=== PATIENT | male | born 1980 | race Caucasian/White ===

== ENCOUNTER 2017-06-14 19:59 | Emergency (ER) | payer MEDICAID, SELFPAY ==
[2017-06-14 19:59] VITALS: BP 151/90; PULSE 99; RESP 16; TEMP 36.1; O2SAT 100; BMI 26.2
--- NOTE | 2017-06-14 22:04 | ED.DCSUM_ITS ---
- ER Visit Summary Date of Service: 06/14/17 Chief Complaint: Back pain History of Present Illness: The patient is a 36 M with a history of low back pain states that he was driving from [place] to [place] to visit his mom, and during a trip while sitting for long period of time, he developed increasing right buttock pain radiating down his right lower extremity to his ankle. He states he is in a lot of discomfort. No numbness, no bowel or bladder dysfunction, no saddle anesthesia. No direct trauma now, but he states he fell 2 weeks ago down a flight of stairs after slipping on a book in the dark. He had some x-rays of his right hip and low back at that time in [place] that were negative. He also has a history of degenerative disc disease and had a laminectomy. Physical Examination: Uncomfortable but in no distress. Straight leg raises are negative bilaterally, he is neurologically and vascularly intact both lower extremities, normal reflexes. No tenderness in his back, but he is tender in the sciatic notch of his right buttock. Test Results: n/a Emergency Department Course and Treatment: Patient is driving to his mother's. He was given IM Toradol injection, and an oxycodone home pack. Advised to follow-up with his doctor when he gets home. No indication for emergent imaging at this time and he is comfortable with this plan. Treatment Plan: As above, supportive care Disposition: Discharge Impression: Acute exacerbation of chronic low back pain Sciatica This note was generated with [employer] dictation software. It may contain incorrect words, spelling, and punctuation that were not noted in review of the chart prior to signing ED Disposition - Plan for ED Patient: Disposition: Home or Assisted Living Chief Complaint: Back Instructions: ED Sciatica Referrals: Doctor,Your [STAFF PHYSICIAN] - 1 Week if not improving
[2017-06-14] MEDS: Ketorolac 60 MG/2 ML Vial IM (22:30)
[2017-06-14] MEDS: oxyCODONE 5 MG Tablet PO (22:31)
== END 2017-06-14 22:44 | disposition home or self-care (01) ==
PROVIDERS: Emergency Provider Emergency Medicine; Family Provider Family Medicine; PCP Family Medicine
DX: M54.41 Lumbago with sciatica, right side (principal); G89.29 Other chronic pain; Z72.0 Tobacco use
CPT/HCPCS: 96372; 99282

== ENCOUNTER 2018-01-17 18:35 | Emergency (ER) | payer MEDICAID, SELFPAY ==
[2018-01-17 18:37] VITALS: BP 154/74; PULSE 123; RESP 20; TEMP 36.6; O2SAT 98; BMI 27.6
--- NOTE | 2018-01-17 20:06 | ED.DCSUM_ITS ---
- ER Visit Summary Date of Service: 01/17/18 Chief Complaint: Back pain History of Present Illness: The patient is a 37 M who states that today around 1645 hrs. she was moving a filing cabinet when he felt pain in his right low back. He notes radiation down the right leg. States he has had numerous exacer bations of this in the past. He is followed by a doctor in another town. He states he is visiting [place]. Fevers. No rashes. No neurologic deficits. Physical Examination: Afebrile vital signs stable Gen: Well-nourished well-developed patient curses frequently during the history portion. Head: Normocephalic atraumatic Eyes: Perrl EOMI ENT: TMs clear no rhinorrhea moist mucous membranes Neck: Supple no lymphadenopathy no JVD nontender CVS: Regular rate rhythm no murmurs normal S1-S2 Respiratory: No distress clear to auscultation bilaterally chest nontender Abdomen: Soft nontender nondistended normal bowel sounds no masses Back: Tender palpation in the right lower lumbar region and right buttock. Extremity: Nontender no edema Skin: Normal color no rash Neuro: alert orientated ?3 CN II-XII intact normal strength sensation reflexes antalgic cerebellar Psych: Normal affect normal mood Emergency Department Course and Treatment: This is most likely an acute on chronic exacerbation. Patient has failed several narcotic prescriptions the past 2 months. I will write for Toradol and Flexeril. He is to follow-up with his doctors. Impression: 1. Acute on chronic lumbosacral strain This note was generated with [employer] dictation software. It may contain incorrect words, spelling, and punctuation that were not noted in review of the chart prior to signing ED Disposition - Plan for ED Patient: Disposition: Home or Assisted Living Chief Complaint: Back Instructions: ED Sprain Strain Lumbar Prescriptions: Cyclobenzaprine [Flexeril] 10 mg PO TID PRN PRN #15 tab PRN Reason: Muscle Spasm Ketorolac [Toradol] 10 mg PO Q6H #12 tab Additional Instructions: Rest heat and anti-inflammatories. Follow-up with your doctors
[2018-01-17] MEDS: Ketorolac 10 MG Tablet PO (20:27)
[2018-01-17 20:34] VITALS: PULSE 89; RESP 20; O2SAT 98
--- NOTE | 2018-01-17 20:35 | ED.RN ---
THIS NURSE REVIEWED D/C INSTRUCTIONS WITH PT. PT VERBALIZED UNDERSTANDING OF INSTRUCTIONS. PT REQUESTING CHLORZOXAZONE. DR GUNN NOTIFIED OF SAME. NO PRESCRIPTION CHANGES. PT DENIES FURTHER NEEDS OR QUESTIONS AT THIS TIME. PT AMBULATES FROM ROOM ON OWN WITHOUT ASSISTANCE FROM STAFF
== END 2018-01-17 20:40 | disposition home or self-care (01) ==
PROVIDERS: Emergency Provider Emergency Medicine; Family Provider Family Medicine; PCP Family Medicine
DX: S39.012A Strain of muscle, fascia and tendon of lower back, initial encounter (principal); X50.9XXA Other and unspecified overexertion or strenuous movements or postures, initial encounter; Y93.9 Activity, unspecified; Y92.9 Unspecified place or not applicable; Y99.9 Unspecified external cause status; R50.9 Fever, unspecified; Z72.0 Tobacco use
CPT/HCPCS: 99283

== ENCOUNTER 2018-03-25 14:11 | Emergency (ER) | payer MEDICAID, SELFPAY ==
[2018-03-25 14:12] VITALS: BP 154/95; PULSE 112; RESP 18; TEMP 36.3; O2SAT 99; BMI 27.8
[2018-03-25 16:08] VITALS: O2SAT 97
--- NOTE | 2018-03-25 16:08 | ED.DCSUM_ITS ---
- ER Visit Summary Date of Service: 03/25/18 Chief Complaint: Fall, low back injury History of Present Illness: The patient is a 37 M who states he slipped and fell on ice yesterday. He landed on his left lower back. No head trauma. He has pain in his left lower back. It is worse with movement. He has a history of chronic back pain. He states he occasionally has back pain which is tolerable with Tylenol. He tried Tylenol for this pain but it did not help. Physical Examination: Vital signs reviewed. Back exam reveals tenderness in the left paraspinal area. There is no midline tenderness. Extremities are normal. Neurologic exam is also normal Test Results: None performed Emergency Department Course and Treatment: Patient likely has a contusion to the left lower back. He has no bony tenderness I do not feel x-rays are needed. He will get 1 dose of Toradol here. Naproxen at home. He was counseled on using ice. He will follow-up with his PCP on the as scheduled Treatment Plan: [] Disposition: Discharge Impression: Left lumbar contusion This note was generated with [employer] dictation software. It may contain incorrect words, spelling, and punctuation that were not noted in review of the chart prior to signing ED Disposition - Plan for ED Patient: Chief Complaint: Fall Referrals: Josafat Davis [Primary Care Provider] -
--- NOTE | 2018-03-25 16:08 | ED.DEP ---
ED Disposition - Plan for ED Patient: Disposition: Home or Assisted Living Chief Complaint: Fall Instructions: ED Mechanical Fall Prescriptions: Naproxen [Naprosyn] 500 mg PO BID PRN #20 tab Referrals: Josafat Davis [Primary Care Provider] -
[2018-03-25 16:11] VITALS: BP 127/89; PULSE 71; PULSE 72; RESP 15; O2SAT 97; O2SAT 98
[2018-03-25] MEDS: Ketorolac 60 MG/2 ML Vial IM (16:16)
== END 2018-03-25 16:49 | disposition home or self-care (01) ==
LOC: ED 16:42
PROVIDERS: Emergency Provider Emergency Medicine; Family Provider Family Medicine; PCP Family Medicine
DX: S30.0XXA Contusion of lower back and pelvis, initial encounter (principal); W00.0XXA Fall on same level due to ice and snow, initial encounter; Y93.9 Activity, unspecified; Y92.9 Unspecified place or not applicable; Y99.9 Unspecified external cause status; M54.9 Dorsalgia, unspecified; G89.29 Other chronic pain; Z72.0 Tobacco use
CPT/HCPCS: 96372; 99282

== ENCOUNTER 2018-05-10 19:35 | Emergency (ER) | payer MEDICAID, SELFPAY ==
[2018-05-10 19:36] VITALS: BP 148/93; PULSE 82; RESP 22; TEMP 37.2; O2SAT 100; BMI 27.8
[2018-05-10] MEDS: predniSONE 20 MG Tablet 60 MG PO (21:11)
[2018-05-10] MEDS: Ketorolac 60 MG/2 ML Vial IM (21:12)
--- NOTE | 2018-05-10 21:56 | ED.DCSUM_ITS ---
- ER Visit Summary Date of Service: 05/10/18 Chief Complaint: Back pain History of Present Illness: The patient is a 37 M who presents with back pain that began today while at work. Patient states the pain is worse with lifting and bending. Patient describes the pain as a pressure over the lumbar area. P atient states the pain radiates down the left leg. Patient denies any paresthesias or weakness. Patient denies any bowel or bladder changes. Patient denies any saddle anesthesia. Patient denies any specific trauma or injury. Physical Examination: Vital signs are stable. Patient is afebrile. Patient is in no acute distress. Musculoskeletal exam reveals tenderness over the lumbar paraspinal muscles tender worse on the left. There is no midline tenderness. There is no bony crepitance or step-off noted. Strength is 5/5 bilaterally in the upper and lower extremities. There are no sensory deficits noted. Deep tendon reflexes are 2+/4 bilaterally in the lower extremities. The remaining physical exam is within normal limits. Emergency Department Course and Treatment: Patient was given Toradol initially. Patient was also given prednisone initially. Patient still complaining of worsening pain. Patient was given an injection of morphine. Patient was instructed to follow-up with his primary care physician in 3-5 days. Patient was instructed on signs and symptoms which should prompt return to the emergency department. Patient understood and was agreeable with the plan. All questions were answered. Disposition: Discharge home Impression: 1. Acute low back pain 2. Sciatica This note was generated with [employer] dictation software. It may contain incorrect words, spelling, and punctuation that were not noted in review of the chart prior to signing ED Disposition - Plan for ED Patient: Disposition: Home or Assisted Living Diagnosis: Acute low back pain, Sciatica of left side Instructions: ED Sciatica Prescriptions: Hydrocodone Bitart/Apap 5-325 [[place] 5MG-325MG] 1 tab PO Q6H PRN PRN 3 Days #10 tab PRN Reason: Pain RX: Prednisone [Deltasone] 60 mg PO DAILY #15 tab Referrals: Josafat Davis [Primary Care Provider] - 3-5 Days
[2018-05-10] MEDS: Morphine 4 MG/ML Syringe SC (22:14)
[2018-05-10 22:21] VITALS: BP 138/80; PULSE 78; RESP 16; O2SAT 97
== END 2018-05-10 22:23 | disposition home or self-care (01) ==
PROVIDERS: Emergency Provider Emergency Medicine; Family Provider Family Medicine; PCP Family Medicine
DX: M54.42 Lumbago with sciatica, left side (principal); Z72.0 Tobacco use
CPT/HCPCS: 96372; 99282

== ENCOUNTER 2018-07-06 17:23 | Emergency (ER) | payer MEDICAID, SELFPAY ==
[2018-07-06 17:23] VITALS: BP 135/97; PULSE 72; RESP 18; TEMP 36.9; O2SAT 98; BMI 28.6
--- NOTE | 2018-07-06 17:41 | RAD_ITS ---
STUDY: X-RAY - CERVICAL SPINE REASON FOR EXAM: Male, 37 years old. Fall. Pain. TECHNIQUE: History view(s) of the cervical spine were obtained. COMPARISON: None FINDINGS: Normal anterior atlantoaxial articulation. Normal odontoid process. Normal cervical lordosis. Mild degenerative disc disease and spondylosis at C5-C6 and C6-C7. The soft tissue structures are unremarkable. There is no demonstrated fracture of the cervical spine. RAD/Cerv Spine 2 or 3 Views IMPRESSION: Mild degenerative changes. No acute abnormality. Electronically Signed: Josafat Schulz MD at 18:28 EDT , Service support ,
--- NOTE | 2018-07-06 17:46 | ED.VIS.FALL ---
History of Present Illness Chief Complaint: Fall Informant: Patient Occurred: Today Mechanism/Context: Same level fall Quality of Pain: Aching Current Severity: Mild Maximum Severity: Mild Worsened by: Movement Associated Symptoms: Negative for: Parasthesias, Weakness, Loss of function, Inability to ambulate, Loss of consciousness Narrative: Patient presenting for evaluation secondary to fall. Patient reports that he suffered a mechanical fall getting out of the bathtub today. He reports that he struck the front of his head and twisted his back. Denies loss of consciousness visual changes numbness or weakness. He reports some pain in his forehead, neck, and right lower back. Patient was able to ambulate. Is not on any sort of anticoagulants. He does have a history of prior back surgery in the distant past. Review of systems otherwise negative. Past Medical History - Allergies and Home Meds Allergies/Adverse Reactions: Allergies No Known Allergies Allergy (Verified 07/06/18 17:25) Primary Care Physician: Josafat Davis [Primary Care Provider] - Smoking Status: Current every day smoker Review of Systems All systems negative except as indicated Musculoskeletal: Reports: Neck pain, Back pain Physical Exam Vital Signs/Narrative: Vital Signs Temp Pulse Resp BP Pulse Ox 07/06/18 17:23 98.4 F 72 18 135/97 H 98 Inital Vital Signs reviewed: Yes General: Well nourished, Well developed, - - Airway patent, breath sounds equal bilateral, central peripheral pulses 2+ and symmetric, GCS 15 out of 15 Head: Normocephalic, Atraumatic Eyes: Perrl, EOMI ENT: TM's clear, No hemotympanum or drainage, No trauma Neck: Full ROM, Spinal Tenderness Cardiovascular: Regular rate, Regular rhythm, No murmurs Respiratory: No distress, CTA bilaterally, Chest nontender Abdomen: Soft, Nontender, Nondistended, Normal bowel sounds Back: Paraspinal Tenderness Skin: Normal color, No rash Neurological: Alert, Oriented x3, Cranial nerves II-XII grossly intact, Normal Strength, Normal Sensation Psychological: Normal affect Diagnostic/Tx/Re-eval Cervical spine x-rays demonstrate degenerative changes but no acute process - Medical Decision Making Patient presented for evaluation secondary to a mechanical fall. Primary and secondary surveys showed only evidence of the patient having some midline cervical spine tenderness. A C-spine x-ray was obtained and was found to be negative by my personal review as well as radiology. Patient is [place] head CT rule negative, there is no indication for neuroimaging. At this point I believe the patient is appropriate for discharge. He was recommended expectant management measures, and follow-up with primary care as needed. Disposition: Home ED Disposition - Plan for ED Patient: Disposition: Home or Assisted Living Diagnosis: Cervical strain Instructions: ED Mechanical Fall Referrals: Josafat Davis [Primary Care Provider] - As Needed
== END 2018-07-06 18:58 | disposition home or self-care (01) ==
PROVIDERS: Emergency Provider Emergency Medicine; Family Provider Family Medicine; PCP Family Medicine
DX: S16.1XXA Strain of muscle, fascia and tendon at neck level, initial encounter (principal); S09.90XA Unspecified injury of head, initial encounter; M54.9 Dorsalgia, unspecified; W18.2XXA Fall in (into) shower or empty bathtub, initial encounter; Y93.E1 Activity, personal bathing and showering; Y92.9 Unspecified place or not applicable; Y99.9 Unspecified external cause status; F17.200 Nicotine dependence, unspecified, uncomplicated
CPT/HCPCS: 72040; 99282

== ENCOUNTER 2018-09-26 14:04 | Emergency (ER) | payer MEDICAID, SELFPAY ==
[2018-09-26 14:06] VITALS: BP 154/93; PULSE 101; RESP 20; TEMP 36.5; O2SAT 98; BMI 27.6
--- NOTE | 2018-09-26 14:36 | ED.VIS.GEN ---
History of Present Illness Chief Complaint: Back Informant: Patient Timing: Continuous Current Severity: Moderate Maximum Severity: Moderate Narrative: Patient apparently was sitting on a couch too long and developed back spasms. This happened yesterday. He was able to walk home he is worse today. He has history of chronic recurrent back pain. He has no urinary symptoms, no retention symptoms, no compromise. No perirectal decreased sensation. He is able to ambulate. No other trauma. Past Medical History - Allergies and Home Meds Allergies/Adverse Reactions: Allergies No Known Allergies Allergy (Verified 09/26/18 14:06) Primary Care Physician: Josafat Davis [Primary Care Provider] - Prior records reviewed: Yes Past Medical History: - - Prior back pain Lives: Alone Smoking Status: Current every day smoker Review of Systems General: Denies: Fever Respiratory: Denies: Dyspnea Gastrointestinal: Denies: Abdominal pain, Nausea, Vomiting Genitourinary: Denies: Dysuria, Frequency Musculoskeletal: Reports: Back pain Skin: Denies: Wounds Neurological: Denies: Weakness, Parasthesia Hematologic: Denies: Easy bruising Physical Exam Vital Signs/Narrative: Vital Signs Temp Pulse Resp BP Pulse Ox 09/26/18 14:06 97.7 F L 101 H 20 H 154/93 H 98 General: Well nourished, Well developed ENT: Moist mucous membranes Cardiovascular: Regular rate, Regular rhythm Abdomen: Soft, Nontender Back: - - There is spinal and paraspinal back pain he has loss of lordosis. He has 2+ bilateral patellar reflexes normal plantar flexion dorsiflexion of both feet and great toes, he has normal Achilles reflexes. Extremities: Nontender, No edema Skin: Normal color Neurological: Normal Strength, Normal Sensation, Normal DTR Diagnostic/Tx/Re-eval - Medical Decision Making Patient has a normal exam, he has back pain and spasms we will treat with analgesia. Disposition discharge stable condition ED Disposition - Plan for ED Patient: Disposition: Home or Assisted Living Diagnosis: Acute low back pain Instructions: BACK SPASM, No Trauma, Back Sprain/Strain Prescriptions: cycloBENZAPRine HCl [Flexeril] 10 mg PO TID PRN #20 tab PRN Reason: Muscle Spasm Prescription Printed Naproxen [Naprosyn] 500 mg PO BID PRN #20 tab Prescription Printed Referrals: Josafat Davis [Primary Care Provider] - 3-5 Days
[2018-09-26] MEDS: HYDROmorphone 1 MG/ML Syringe IM (14:47)
[2018-09-26] MEDS: Ketorolac 30 MG/ML Syringe IM (14:47)
[2018-09-26] MEDS: Orphenadrine 60 MG/2 ML Ampul IM (14:47)
[2018-09-26 15:14] VITALS: BP 150/73; PULSE 90; RESP 17; O2SAT 99
== END 2018-09-26 15:16 | disposition home or self-care (01) ==
PROVIDERS: Emergency Provider Emergency Medicine; Family Provider Family Medicine; PCP Family Medicine
DX: M54.5 Low back pain (principal); M62.830 Muscle spasm of back; G89.29 Other chronic pain; F17.200 Nicotine dependence, unspecified, uncomplicated; Z79.899 Other long term (current) drug therapy
CPT/HCPCS: 96372; 99282

== ENCOUNTER 2019-02-23 20:37 | Emergency (ER) | payer MEDICAID, SELFPAY ==
[2019-02-23 20:38] VITALS: BP 154/108; PULSE 90; RESP 16; TEMP 36.3; O2SAT 98; BMI 28.6
[2019-02-23 22:48] VITALS: BP 135/105; PULSE 85; RESP 15; O2SAT 95
--- NOTE | 2019-02-23 22:49 | ED.VIS.GEN ---
History of Present Illness Chief Complaint: Back Narrative: Patient is a 38-year-old male who presents with left lower back pain. This began last night after sexual intercourse and was worse this morning. He was able to work 11 hours today. His pain is worse with movement ambulation and bending. It is sharp. He does have a history of prior laminectomy and has had some radicular symptoms since then with multiple ER visits for back pain. This however he states is different. Normally he gets radicular symptoms with radiation into the left buttocks but his pain is focal to the left lower back currently. No abdominal pain. No fevers. No urinary retention or fecal incontinence. No numbness tingling or weakness. Past Medical History - Allergies and Home Meds Allergies/Adverse Reactions: Allergies No Known Allergies Allergy (Verified 02/23/19 20:41) Primary Care Physician: Josafat Davis [Primary Care Provider] - Past Medical History: - - Chronic back pain Smoking Status: Current every day smoker Review of Systems All systems negative except as indicated General: Denies: Fever Eyes: Denies: Visual changes - bilaterally ENT: Denies: Sore throat Cardiovascular: Denies: Chest pain Respiratory: Denies: Dyspnea Gastrointestinal: Denies: Nausea, Vomiting, Diarrhea Musculoskeletal: Reports: Back pain Skin: Denies: Rash Neurological: Denies: Headache Allergy: Denies: Uticaria Physical Exam Vital Signs/Narrative: Vital Signs Temp Pulse Resp BP Pulse Ox 02/23/19 20:38 97.4 F L 90 16 154/108 H 98 Inital Vital Signs reviewed: Yes General: Well nourished, Well developed Head: Normocephalic Eyes: EOMI ENT: Moist mucous membranes Neck: Supple Cardiovascular: Regular rate Respiratory: No distress Abdomen: Soft, Nontender Back: - - Patient has left paraspinal lumbar tenderness and point tenderness of the left SI joint Skin: Normal color Neurological: Alert, Normal Strength, Normal Sensation Psychological: Normal affect Diagnostic/Tx/Re-eval - Medical Decision Making Patient's presentation is consistent with a lumbosacral strain. I do not see an indication for imaging at this time. He was given injections of Toradol and Norflex and advised to continue supportive care. Patient agreeable to this plan and was discharged home. ED Disposition - Plan for ED Patient: Disposition: Home or Assisted Living Diagnosis: Lumbosacral strain Instructions: Back Sprain/Strain Referrals: Josafat Davis [Primary Care Provider] -
[2019-02-23] MEDS: Ketorolac 60 MG/2 ML Vial IM (23:05)
[2019-02-23] MEDS: Orphenadrine 60 MG/2 ML Ampul IM (23:08)
--- NOTE | 2019-02-23 23:45 | ED.RN ---
pt requesting a rx from chlorzoxazone. denied by MD. pt became upset and stormed out of the ER walking briskly.
== END 2019-02-23 23:46 | disposition home or self-care (01) ==
PROVIDERS: Emergency Provider Emergency Medicine; Family Provider Family Medicine; PCP Family Medicine
DX: S39.012A Strain of muscle, fascia and tendon of lower back, initial encounter (principal); X58.XXXA Exposure to other specified factors, initial encounter; Y93.89 Activity, other specified; G89.29 Other chronic pain; F17.200 Nicotine dependence, unspecified, uncomplicated
CPT/HCPCS: 96372; 99282

== ENCOUNTER 2019-06-08 10:43 | Emergency (ER) | payer MEDICAID, SELFPAY ==
[2019-06-08 10:45] VITALS: BP 142/93; PULSE 79; RESP 14; TEMP 35.9; O2SAT 99; BMI 29.5
--- NOTE | 2019-06-08 11:27 | ED.DCSUM_ITS ---
- ER Visit Summary Date of Service: 06/08/19 Chief Complaint: Temperature of 99 yesterday. Patient wants a note to say and go back to work. Physicial examination: Male no acute distress vital signs stable afebrile. Pulse ox 99% on room air no signs hypoxia. H EENT exam normal. Neck nontender no lymphadenopathy lungs clear to auscultation bilaterally. Heart regular rhythm no murmur. Abdomen soft nontender normal bowel sounds no peritoneal signs. Patient moving all 4 extremities. No edema. Back nontender. Skin no rashes. Neurologically is awake alert no focal motor deficits. Test Results: none Emergency Department Course and Treatment: Patient clinically is fine. He appears to have a viral syndrome. I do not think he has pneumonia. Analgesics and testing. Treatment Plan: Tylenol and/or Motrin as needed. Fluids and rest. May return to work. Disposition: Discharge Impression: Acute viral URI This note was generated with [employer] dictation software. It may contain incorrect words, spelling, and punctuation that were not noted in review of the chart prior to signing ED Disposition - Plan for ED Patient: Referrals: Josafat Davis [Primary Care Provider] -
--- NOTE | 2019-06-08 11:30 | ED.DEP ---
ED Disposition - Plan for ED Patient: Disposition: Home or Assisted Living Instructions: ED URI Viral Referrals: Josafat Davis [Primary Care Provider] - As Needed Additional Instructions: Plenty of fluids and rest. Tylenol and Motrin as needed. Follow up with your doctor if not improving. You are cleared clinically and may return to work today and work normally.
== END 2019-06-08 11:40 | disposition home or self-care (01) ==
PROVIDERS: Emergency Provider Emergency Medicine; PCP Family Medicine
DX: Z02.79 Encounter for issue of other medical certificate (principal); J06.9 Acute upper respiratory infection, unspecified; Z72.0 Tobacco use
CPT/HCPCS: 99282

== ENCOUNTER 2019-06-12 16:24 | Emergency (ER) | payer MEDICAID, SELFPAY ==
[2019-06-12 16:27] VITALS: BP 167/116; PULSE 86; RESP 17; TEMP 37.1; O2SAT 99; BMI 29.2
--- NOTE | 2019-06-12 17:02 | ED.DCSUM_ITS ---
History of Present Illness Chief Complaint: Upper Extremity Injury Informant: Patient Occurred: Today Mechanism/Context: - - doing pushups. Negative for: Work Related Onset: Hours - 2 Context: Sudden Onset Timing: Continuous Quality of Pain: Sharp, Aching Location: left periscapular area Current Severity: Severe Maximum Severity: Severe Worsened by: abducting LUE, extending upper arm while abducted Relieved by: remaining still Associated Symptoms: Negative for: Parasthesia, Weakness, Loss of Funtion Narrative: Patient states he worked okay last night but started having this sharp pain patel ddenly while doing push-ups, working out today. 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 [id number]. Denies any numbness in his hand or elsewhere. States it also hurts worse to extend at the neck. - Past Medical History (1) Bipolar disorder Status: Chronic (2) Cervical radiculopathy Status: Suspected (3) Sciatica Status: Suspected Past Medical History - Allergies and Home Meds Allergies/Adverse Reactions: Allergies No Known Allergies Allergy (Verified 06/12/19 16:25) Primary Care Physician: Josafat Davis [Primary Care Provider] - 10-14 Days if not better Lives: Alone Smoking Status: Current every day smoker Review of Systems General: Denies: Chills, Fever, Sweats Musculoskeletal: Reports: Neck pain, Back pain, Extremity Pain Skin: Denies: Rash, Wounds Neurological: Denies: Headache, Weakness, Numbness Physical Exam Vital Signs/Narrative: Vital Signs Temp Pulse Resp BP Pulse Ox 06/12/19 16:27 98.8 F 86 17 167/116 H 99 General: Well nourished, Well developed, - - NAD Head: Normocephalic, Atraumatic Neck: Full ROM, Paraspinal Tenderness - left lower Extremeties: Patient is tender in the cervical portion of the trapezius muscle, in addition to the left rhomboid musculature, and the supraspinous area of the scapula/trapezius. There is no subacromial tenderness. He has full range of motion at the shoulder, there is some pain with abduction. There is no acromioclavicular tenderness. There is no deformity. Skin: Normal color, No rash, No Trauma Neurological: Alert, Oriented x3, Cranial nerves II-XII grossly intact, Normal Strength, Normal Sensation, Normal Gait Psychological: Tearful - and anxious Diagnostic/Tx/Re-eval - Medical Decision Making On my interpretation, 4 view x-rays of the left shoulder are unremarkable and show no bony fracture/abnormality or dislocation. Patient was treated with Toradol and Norflex and will be prescribed oral equivalents, and advised to follow-up for what is very likely to be an upper back/trapezius strain. All this was explained to him, as was treatment which is basically supportive care at this time. ED Disposition - Plan for ED Patient: Disposition: Home or Assisted Living Diagnosis: Strain of left trapezius muscle Instructions: ED Sprain Strain Neck Prescriptions: Naproxen [Naprosyn] 500 mg PO BID PRN #20 tab Transmission Status: Received by [facility] Orphenadrine [Norflex ER] 100 mg PO BID PRN #14 tab PRN Reason: Muscle Spasm Transmission Status: Received by [facility] Referrals: Josafat Davis [Primary Care Provider] - 10-14 Days if not better
--- NOTE | 2019-06-12 17:20 | RAD_ITS ---
STUDY: X-RAY - LEFT SHOULDER REASON FOR EXAM: Male, 38 years old. pt c/o left shoulder pain that started this morning while working out. TECHNIQUE: 4 view(s) of the shoulder. COMPARISON: None. FINDINGS: Normal glenohumeral articulation. Normal acromioclavicular joint. Normal acromion. Normal humeral head and visualized proximal humerus. The soft tissue structures are unremarkable. There is no demonstrated fracture. Normal visualized pulmonary apex. RAD/Shoulder min 2 Views IMPRESSION: Normal x-ray examination of the shoulder. Electronically Signed: Gerson Tate MD at 17:46 EDT , Service support ,
[2019-06-12] MEDS: Ketorolac 60 MG/2 ML Vial IM (17:31)
[2019-06-12] MEDS: Orphenadrine 60 MG/2 ML Ampul IM (17:31)
[2019-06-12 17:59] VITALS: BP 156/89; PULSE 88; RESP 17; O2SAT 97
== END 2019-06-12 18:00 | disposition home or self-care (01) ==
LOC: ED 17:07
PROVIDERS: Emergency Provider Emergency Medicine; PCP Family Medicine
DX: S46.812A Strain of other muscles, fascia and tendons at shoulder and upper arm level, left arm, initial encounter (principal); X58.XXXA Exposure to other specified factors, initial encounter; Y93.B2 Activity, push-ups, pull-ups, sit-ups; Y92.9 Unspecified place or not applicable; Y99.8 Other external cause status; F17.200 Nicotine dependence, unspecified, uncomplicated
CPT/HCPCS: 73030; 96372; 99282

== ENCOUNTER 2019-06-19 17:20 | Emergency (ER) | payer MEDICAID, SELFPAY ==
[2019-06-19 17:20] VITALS: BP 148/81; PULSE 116; RESP 20; TEMP 37.8; O2SAT 97; BMI 29.7
--- NOTE | 2019-06-19 17:44 | ED.DCSUM_ITS ---
History of Present Illness Chief Complaint: Fever Informant: Patient Onset: Days - 2-3 Context: Gradual Onset Timing: Continuous Quality: achy Location: all over Current Severity: Mild Maximum Severity: Moderate Worsened by: - - nothing Relieved by: Tylenol, NSAIDs Associated Symptoms: Headache, Myalgias, Nonproductive cough. Negative for: Sinus Pressure, Nausea, Vomiting, Diarrhea, Shortness of Breath, Chest Pain Narrative: Patient with cold symptoms and fevers subjective, he denies any dyspnea although it is on his triage note. No chest pain. No sore throat or nasal congestion, he has a mild right earache. Someone at work had influenza recently but he did not necessarily have direct contact with him. No known exposure to persons with coronavirus. He presents during coronavirus national emergency. - Past Medical History (1) Bipolar disorder Status: Chronic (2) Sciatica Status: Suspected Past Medical History - Allergies and Home Meds Allergies/Adverse Reactions: Allergies No Known Allergies Allergy (Verified 06/19/19 17:20) Primary Care Physician: Josafat Davis [Primary Care Provider] - Smoking Status: Current every day smoker Review of Systems General: Reports: Chills, Fever, Malaise, Subjective. Denies: Sweats Eyes: Denies: Visual changes - bilaterally, Diplopia ENT: Reports: Right ear pain. Denies: Rhinorrhea, Sore throat Cardiovascular: Denies: Chest pain, Palpitations Respiratory: Reports: Cough. Denies: Dyspnea, Sputum, Dyspnea on exertion Gastrointestinal: Denies: Abdominal pain, Nausea, Vomiting, Diarrhea, Melena, Hematochezia Genitourinary: Denies: Dysuria, Hematuria, Frequency Musculoskeletal: Reports: Myalgias. Denies: Back pain, Extremity Pain Skin: Denies: Rash, Wounds Neurological: Reports: Headache. Denies: Weakness, Numbness Physical Exam Vital Signs/Narrative: Vital Signs Temp Pulse Resp BP Pulse Ox 06/19/19 17:20 100.0 F H 116 H 20 H 148/81 H 97 Inital Vital Signs reviewed: Yes General: Well nourished, Well developed Head: Normocephalic, Atraumatic Eyes: Perrl, EOMI Ears: Normal external canal, TM's clear - With very mild erythema along the line of the middle ear bone pushing on a tympanic membrane. No effusion.. Negative for: Pain with Movement of Right Tragus, Pain with Movement of Left Tragus Nose: Normal Inspection, No Rhinorrhea. Negative for: Purulent Drainage Mouth/Throat: Normal Inspection, No Posterior Erythema, Airway Patent Neck: Supple, Nontender, No Lymphadenopathy, No Meningismus Cardiovascular: Regular rate, Regular rhythm, No murmurs, Tachycardia - Mild Respiratory: No distress, CTA bilaterally, Chest nontender Abdomen: Soft, Nontender, Nondistended, Normal bowel sounds Back: Nontender, Normal Inspection. Negative for: CVA tenderness Extremities: Nontender, No edema. Negative for: Calf Tenderness Skin: Normal color, No rash, No Trauma Neurological: Alert, Oriented x3, Cranial nerves II-XII grossly intact, Normal Strength, Normal Sensation, Normal Gait Psychological: Normal affect, Normal Mood Diagnostic/Tx/Re-eval - Medical Decision Making Patient was tested for influenza and RSV, both negative. He has had no specific contact with any persons known to be infected with coronavirus, but since there is community spread, certainly we are not able to rule that out and he does not meet testing criteria to be tested at [facility] currently. Supportive care and quarantine advised and given appropriate discharge instructions. Patient felt better after a dose of Toradol IM. ED Disposition - Plan for ED Patient: Disposition: Home or Assisted Living Diagnosis: Febrile illness, acute, Suspected 2019-nCoV infection Instructions: ED Upper Resp Infec No Abx Tx Referrals: Josafat Davis [Primary Care Provider] - As Needed Additional Instructions: -See additional attached quarantine instructions for what to do with regards to the possibility of coronavirus infection, given that you do not currently meet the [facility] requirements for testing since they require us to conserve the limited testing ability for the sickest, hospitalized patients.
[2019-06-19] MEDS: Ketorolac 60 MG/2 ML Vial IM (17:58)
[2019-06-19 19:27] VITALS: PULSE 91; RESP 18
== END 2019-06-19 19:28 | disposition home or self-care (01) ==
PROVIDERS: Emergency Provider Emergency Medicine; PCP Family Medicine
DX: R50.9 Fever, unspecified (principal); F17.200 Nicotine dependence, unspecified, uncomplicated
CPT/HCPCS: 87804; 87807; 96372; 99281

== ENCOUNTER 2019-07-04 08:26 | Emergency (ER) | payer MEDICAID, SELFPAY ==
[2019-07-04 08:26] VITALS: BP 140/85; PULSE 105; RESP 18; TEMP 36.6; O2SAT 96; BMI 27.8
--- NOTE | 2019-07-04 08:42 | ED.DEP ---
ED Disposition - Plan for ED Patient: Instructions: ED Sprain Wrist Prescriptions: Naproxen [Naprosyn] 500 mg PO BID PRN #20 tablet Referrals: Josafat Davis [Primary Care Provider] -
--- NOTE | 2019-07-04 08:45 | ED.DCSUM_ITS ---
- ER Visit Summary Date of Service: 07/04/19 Chief Complaint: Left wrist pain History of Present Illness: The patient is a 38 M presenting with left wrist pain. Patient states that this has been ongoing for the past couple of weeks. 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 He believes the vibrations of the saw may have exacerbated his symptoms. Denies direct trauma. He states the pain comes on when he bends his left wrist back. He is right- handed. He has no current pain. He has tried Tylenol at home. He states that he was sick with fever from June 15 to June 18. He has been fever free since that time and now feels well. He is requesting a note to go back to work. Physical Examination: Vitals are stable. Patient is afebrile. Alert no acute distress. HEENT exam is unremarkable. Neck is supple. Lungs are clear and equal bilaterally. Heart is regular rate and rhythm. Extremities left wrist is nontender to palpation. Active full range of motion. No erythema or warmth. Normal pulses. Skin is warm and dry. No focal neurologic deficit. Remainder of exam is unremarkable. Emergency Department Course and Treatment: Patient is given a Velcro wrist splint and prescription for Naprosyn. Advised follow-up with his primary care physician. Advised to return to the ED for worsening complaints. Disposition: Discharge home Impression: Left wrist sprain This note was generated with [employer] dictation software. It may contain incorrect words, spelling, and punctuation that were not noted in review of the chart prior to signing ED Disposition - Plan for ED Patient: Instructions: ED Sprain Wrist Prescriptions: Naproxen [Naprosyn] 500 mg PO BID PRN #20 tab Prescription Printed Referrals: Josafat Davis [Primary Care Provider] -
== END 2019-07-04 08:57 | disposition home or self-care (01) ==
LOC: ED 08:48
PROVIDERS: Emergency Provider Emergency Medicine; PCP Family Medicine
DX: S63.502A Unspecified sprain of left wrist, initial encounter (principal); X58.XXXA Exposure to other specified factors, initial encounter; Y93.89 Activity, other specified; Y92.9 Unspecified place or not applicable; Z72.0 Tobacco use
CPT/HCPCS: 99283

== ENCOUNTER 2020-01-24 10:23 | Emergency (ER) | payer MEDICAID, SELFPAY ==
[2020-01-24 10:24] VITALS: BP 136/82; PULSE 85; RESP 20; TEMP 36.4; O2SAT 99; BMI 28.4
[2020-01-24 10:29] VITALS: O2SAT 98
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
[2020-01-24 10:34] VITALS: O2SAT 100
[2020-01-24 10:38] LABS: Absolute Lymphocyte Count 5.08 X10^3/uL (0.83-4.51); Absolute Neutrophil Count 5.3 X10^3/uL (2.0-7.7); Basophil# 0.05 X10^3/uL; Basophil% 0.4 % (0-1); Eosinophil# 0.48 X10^3/uL; Hematocrit 46.1 % (40-54); Hemoglobin 14.9 g/dL (13.0-16.5); Lymphocyte # 5.08 X10^3/ul (4.0); Lymphocyte % 42.8 % (19-41); Mean Corp Hgb Conc 32.3 g/dL (32-36); Mean Corpuscular Hgb 32.5 pg (27.0-32.0); Mean Corpuscular Volume 100.7 fL (80-94); Mean Platelet Vol. 11.5 fl (6.2-12.0); Monocyte# 0.91 X10^3/uL; Monocyte% 7.7 % (0-10); NRBC Flagged by Analyzer 0 % (0-5); Neutrophil # 5.25 X10^3/uL (2.7-7.7); Neutrophil % 44.3 % (47-70); POSITIVE DIFFERENTIAL YES; Platelet Count 239 K/mm3 (150-450); RBC Distribution Width CV 11.4 % (11.6-14.6); RBC Distribution Width SD 42.5 fl (35.1-43.9); Red Blood Count 4.58 M/mm3 (4.6-6.2); White Blood Count 11.9 K/mm3 (4.4-11.0)
[2020-01-24] MEDS: Morphine 4 MG/ML Syringe IV ×2 (10:39→12:16)
[2020-01-24] MEDS: Ondansetron 4 MG/2 ML Vial IV (10:40)
[2020-01-24] MEDS: 0.9% Normal Saline 1,000 ML 150 ML IV (10:41)
[2020-01-24 10:50] LABS: International Normalized Ratio 0.9; Partial Thromboplast Time 21.8 Seconds (24.1-36.2); Prothrombin Time (Protime)PT. 11.9 SECONDS (11.7-14.9)
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
[2020-01-24 10:56] LABS: Differential Indicated SCAN CRITERIA MET
[2020-01-24 10:58] LABS: AST(SGOT) 99 U/L (15-37); Alanine Aminotransfer ALT/SGPT 80 U/L (16-61); Albumin, Serum 3.6 g/dL (3.2-5.0); Alkaline Phosphatase 74 U/L (45-117); Anion Gap 9 (5-15); BUN 13 mg/dL (7-18); BUN/Creat Ratio 8.8 RATIO (10-20); Calcium,Total 8.1 mg/dL (8.5-10.1); Chloride 108 mmol/L (98-107); Creatinine, Serum 1.48 mg/dL (0.70-1.30); EST Glomerular Filtration Rate 56 mL/min (>60); Est Glom Filt Rate - Afr Amer 68 mL/min (>60); Estimated Creatinine Clearance 76.48 ml/min; Globulin 3.5 g/dL (2.2-4.2); Glucose 112 mg/dL (74-106); Lipase 553 U/L (73-393); Potassium 3.6 mmol/L (3.5-5.1); Protein, Total 7.1 g/dL (6.4-8.2); Sodium Level 143 mmol/L (136-145)
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
[2020-01-24 11:39] VITALS: BP 127/89; PULSE 56; RESP 17; O2SAT 99
[2020-01-24 11:53] LABS: Carboxyhemoglobin Frac (CO) 5.8 % (0.0-1.5)
[2020-01-24 12:07] VITALS: BP 140/92; PULSE 77; RESP 24; O2SAT 100
[2020-01-24 12:07] LABS: Lactic Acid 1.4 mmol/L (0.4-1.9)
--- NOTE | 2020-01-24 12:15 | CM.ED ---
SOCIAL WORK Freight Dispatcher from [employer] here to meet with patient. This worker to remain available for needs/support. Natalya Mcrae, LIQUOR DEPARTMENT MANAGER, ACID PAINTER
[2020-01-24] MEDS: LORazepam 2 MG/ML Syringe 0.5 MG IV (12:16)
[2020-01-24 12:59] LABS: Bacteria 0 SEEN /hpf (None Seen); Mucous, Urine 0 SEEN /hpf (<or=2+); Squamous Epithelial Cells - UA 0 SEEN /hpf (0-5); White Blood Cells 0 SEEN /hpf (0-5)
[2020-01-24 13:21] LABS: Color, Urine Yellow (Yellow); Glucose, Dipstick Normal (Normal); Ketone-Dipstick Negative (Negative); Leukocyte Esterase-Dipstick Negative /ul (Negative); Nitrite-Dipstick Negative (Negative); Occult Blood-Urine 25 /ul (Negative); Protein-Dipstick 30 mg/dl (Negative); Urine Bilirubin Dipstick Negative (Negative); Urine Clarity Sl. Cloudy (Clear); Urine Urobilinogen Normal (Normal); Urine pH 6.5 (5.0 - 8.0)
[2020-01-24 13:30] LABS: Red Blood Cells-Urine 0-5 SEEN /hpf (0-5)
[2020-01-24 13:50] VITALS: BP 121/89; PULSE 60; RESP 17; O2SAT 99
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
--- NOTE | 2020-01-24 14:40 | CM.ED ---
SOCIAL WORK Patient requesting this worker assist with finding hotel. Patient requesting this worker try [facility] [facility] [facility]. Call to the [employer]. Per Jenny with [employer], patient is on DO NOT rent list. Jenny recommending [facility] or [facility]. Updated patient on the above. Patient in agreement for this worker to try [facility]. Call to the [facility]. deskidding machine operator reports does have rooms available and will be able to accommodate patient. Patient updated. Natalya Mcrae MSW, BIOCHEMIST
--- NOTE | 2020-01-24 15:12 | CM.ED ---
SOCIAL WORK Received call back from [facility] with [facility]. Per [employer], patient's debt card is activated. Updated patient. Asked patient if he would like for us to call taxi. Patient declined. Patient states will walk to [facility]. Patient has been discharged and left the department at this time. Natalya Mcrae MSW, SAMPLE HAND
== END 2020-01-24 15:33 | disposition home or self-care (01) ==
PROVIDERS: Emergency Provider Emergency Medicine; PCP Family Medicine
DX: S16.1XXA Strain of muscle, fascia and tendon at neck level, initial encounter (principal); S20.212A Contusion of left front wall of thorax, initial encounter; T14.8XXA Other injury of unspecified body region, initial encounter; W13.4XXA Fall from, out of or through window, initial encounter; Y93.39 Activity, other involving climbing, rappelling and jumping off; Y92.003 Bedroom of unspecified non-institutional (private) residence as the place of occurrence of the external cause; Y99.8 Other external cause status; F17.200 Nicotine dependence, unspecified, uncomplicated
CPT/HCPCS: 70450; 71260; 72125; 73590; 73630; 74177; 80053; 81001; 82375; 83605; 83690; 84484; 85025; 85610; 85730; 96361; 96374; 96375; 96376; 99285; J7030; Q9967; A4216; J2405

== ENCOUNTER 2020-08-04 18:40 | Emergency (ER) | payer MEDICAID, SELFPAY ==
[2020-08-04 18:41] VITALS: BP 133/94; PULSE 100; PULSE 92; RESP 28; TEMP 36.5; O2SAT 100; O2SAT 98; BMI 28.8
--- NOTE | 2020-08-04 19:04 | EDS_ITS ---
HPI History of Present Illness Chief Complaint: Back Detail of Chief Complaint: Patient with back pain for the last 2 days. Informant: patient Onset/Context/Timing Maximum Severity: Severe Narrative Narrative: Patient presents to the emergency department complaining of back pain her last 2 days. Patient states that he had to move all his belongings from one house to another and exacerbated his back pain. Patient states that he had back surgery about 6 years ago and had a laminectomy of his lumbar region. Patient also was told that he might need a fusion in the future. Patient has been taking Celebrex and muscle relaxer and not get much pain relief. He describes pain radiating into the right buttock and sometimes down the leg. He denies weakness in the extremity. He denies any change in bowel or bladder function. Patient denies any falls or direct trauma. Prior similar symptoms: Yes PFSH PFSH Home Medications celecoxib mg PO 08/04/20 [History Last Taken Unknown] chlorzoxazone PO PRN 08/04/20 [History Last Taken Unknown] hydrocodone-acetaminophen 1 tab PO Q4H PRN PRN 2 Days #10 tablet 08/04/20 [Rx Last Taken Unknown] Allergy/AdvReac Type Severity Reaction Status Date / Time No Known Allergies Allergy Verified 07/04/19 08:29 Surgical History (Updated 08/04/20 @ 18:51 by Yadira Jc) Hx of tonsillectomy Previous back surgery Social History Smoking Status: Current every day smoker ROS ROS ED Constitutional Constitutional ED: Reports systems reviewed and no addt'l complaints, except as documented; Denies body ache(s), change in weight or chills Eyes Eyes: Denies acute decrease in peripheral vision, change in vision, double vision or loss of vision ENT ENT ED: Reports none; Denies ear pain, lip swelling, loss taste/smell, neck pain, otalgia or sore throat Cardiovascular Cardiovascular: Reports none; Denies abdominal pain, chest pain with activity, leg edema, lightheadedness, palpitations, rapid heart rate or syncope Respiratory/Chest Respiratory/Chest: Reports none; Denies change in mental status, dry cough, dyspnea, hemoptysis, shortness of breath at rest or shortness of breath with exertion Gastrointestinal Gastrointestinal: Reports none; Denies abdominal pain, change in stool character, diarrhea, hematemesis, hematochezia, melena, rectal bleeding or vomiting Genitourinary Genitourinary ED: Reports none; Denies abdominal discomfort, anuria, dysuria, genital pain or polyuria Musculoskeletal Musculoskeletal: Reports none and back pain; Denies arthralgias, difficulty walking, extremity pain, muscle weakness or myalgias Integumentary Reports none; Denies abscess or rash Neurologic Neurologic: Reports none; Denies abnormal gait, confusion, focal weakness, frequent falls, headache(s), loss of vision, numbness, paresthesias, radicular pain, vertigo or weakness Psychiatric Psychiatric: Reports systems reviewed and no addt'l complaints, except as documented and none; Denies behavioral changes, confusion, difficulty concentrating, hallucinations, suicidal ideation, tactile hallucinations or visual hallucinations Endocrine Endocrinology: Denies none, cold intolerance, excessive sweating, fatigue or heat intolerance Hematologic/Lymphatic Hematologic/Lymphatic: Reports none; Denies anemia, easy bleeding or easy bruising Allergic/Immunologic Allergic/Immunologic ED: Denies as per HPI, none, lip swelling, mouth swelling, throat swelling, tongue swelling or hives EXAM Physical Exam Const Vital Signs: 08/04/20 18:41 Temperature 97.7 F L Temperature Source Temporal Pulse Rate 92 Respiratory Rate 28 H Blood Pressure 133/94 H Blood Pressure Mean 107 Pulse Ox 100 Oxygen Delivery Method Room Air Positive well nourished and well developed General Appearance ED: well developed and NAD HEENT Reports TM's clear and moist mucous membranes normocephalic and atraumatic; Negative for trauma or tenderness Tympanic Membrane ED: Yes TM's clear Eyes PERRL and EOMs intact bilaterally General Eye ED: Negative for pale conjunctiva or scleral icterus Neck no lymphadenopathy, supple and no JVD General: Negative for tenderness Chest Wall inspection of chest normal and palpation of chest normal Chest: Negative for tenderness Resp normal respiratory effort and clear to auscultation bilaterally Effort and Inspection: Negative for respiratory distress or pain with movement Auscultation: Negative for rhonchi, wheezes or diminished lung sounds Cardio regular rate, regular rhythm, S1 normal heart sound, S2 normal heart sound and no murmurs Peripheral Pulses: pulses 2+ throughout GI normal to inspection, nondistended, normoactive bowel sounds, soft to palpation, non-tender, non-distended and no masses Back/Spine no CVA tenderness and no thoracic nor lumbar tenderness Back/Spine Narrative: Patient has normal deep tendon reflexes of plus 2 out of 4 bilaterally at the patella and Achilles. Patient has normal L5 extension bilaterally. Patient has normal sensation to light touch bilaterally. Patient has some mild tenderness over the right lumbar paraspinal musculature. General Back: Negative for CVA tenderness Extremity normal to inspection General Extremety ED: Negative for edema General Extremity: Negative for edema Neuro oriented x3, CN's II-XII intact bilaterally, no sensory deficits noted and gait normal Sensorium / Orientation: awake, alert, oriented to person, oriented to place and oriented to time Motor Exam: strength 5/5 throughout and strength abnormal Psych mental status grossly normal Skin no rashes or lesions noted and no wounds MDM MDM MDM Narrative Medical decision making narrative: There is no indication for any imaging at this point. Patient drove himself here. I will given a prescription for 10 [place] and advised to follow-up with his primary care physician or surgeon within the next 3 to 5 days. Patient to return if worsening pain, weakness in extremities, change in bowel or bladder function, or condition should worsen anyway. Discharge Plan Triage Chief Complaint: Back ED Provider: Cassi Washburn Dx/Rx/DC Orders Clinical Impression: Acute low back pain Instructions: ED Back Pain (Acute or Chronic) Prescriptions: New hydrocodone-acetaminophen [hydrocodone-acetaminophen] 1 TABLET tablet 1 tab PO Q4H PRN PRN (Reason: Pain) 2 Days Qty: 10 RF: 0 No Action chlorzoxazone 500 mg tablet PO PRN (Reason: Pain) RF: 0 celecoxib 100 mg capsule PO RF: 0 Primary Care Provider: Josafat Davis Referrals: Josafat Davis DO [Primary Care Provider] - 3-5 Days Disposition Disposition: Home, self care
[2020-08-04 19:19] VITALS: PULSE 82; RESP 15; O2SAT 98
== END 2020-08-04 19:20 | disposition home or self-care (01) ==
LOC: ED 19:13
PROVIDERS: Emergency Provider Emergency Medicine; PCP Family Medicine
DX: M54.5 Low back pain (principal); F17.200 Nicotine dependence, unspecified, uncomplicated
CPT/HCPCS: 99282

== ENCOUNTER 2020-10-30 20:53 | Emergency (ER) | payer MEDICAID, SELFPAY ==
[2020-10-30 20:53] VITALS: BP 153/85; PULSE 97; RESP 20; TEMP 36.2; O2SAT 98; BMI 28.6
[2020-10-30 23:11] VITALS: BP 139/95; PULSE 101; RESP 17; TEMP 36.4; O2SAT 100
--- NOTE | 2020-10-30 23:13 | EDS_ITS ---
HPI History of Present Illness Chief Complaint: Back Narrative Narrative: Patient presents with right-sided back pain/gluteal pain which radiates down the lateral aspect of his right leg. He states this is an acute on chronic issue. He has been to see an orthopedic surgeon and was told that if he cannot take the pain that he would need to have a spinal fusion. Patient states he is trying to avoid this. He is already had a laminectomy. He usually deals with the pain. He was able to finish his job today but after working he felt he needed more for pain control. Patient denies loss of bladder bowel control. No urinary retention. He denies any direct trauma. Patient states t hat his primary care doctor put him on chlorzoxazone and celecoxib without relief. PFSH PFSH Home Medications celecoxib mg PO 08/04/20 [History Last Taken Unknown] chlorzoxazone PO PRN 08/04/20 [History Last Taken Unknown] hydrocodone-acetaminophen 1 tab PO Q4H PRN PRN 2 Days #10 tablet 08/04/20 [Rx Last Taken Unknown] prednisone 50 mg PO DAILY 4 Days #20 tab 10/31/20 [Rx Last Taken Unknown] Allergy/AdvReac Type Severity Reaction Status Date / Time No Known Allergies Allergy Verified 07/04/19 08:29 Surgical History Hx of tonsillectomy Previous back surgery Social History Smoking Status: Current every day smoker tobacco type: cigarettes ROS ROS ED Constitutional Constitutional ED: Denies chills, fever(s) or sweats Eyes Eyes: Denies blurry vision or diplopia ENT ENT ED: Denies rhinorrhea or sore throat Cardiovascular Cardiovascular: Denies chest pain or palpitations Respiratory/Chest Respiratory/Chest: Denies dyspnea, dyspnea on exertion or sputum Gastrointestinal Gastrointestinal: Denies abdominal pain, nausea or vomiting Genitourinary Genitourinary ED: Denies dysuria or hematuria Musculoskeletal Musculoskeletal: Reports back pain Neurologic Neurologic: Reports paresthesias RLE (Lateral aspect of right thigh and lower extremity); Denies headache(s) or weakness Psychiatric Psychiatric: Denies anxiety or depression EXAM Physical Exam Const Vital Signs: 10/30/20 20:53 10/30/20 23:11 Temperature 97.1 F L 97.5 F L Temperature Source Temporal Temporal Pulse Rate 97 101 H Respiratory Rate 20 H 17 Blood Pressure 153/85 H 139/95 H Blood Pressure Mean 107 109 Pulse Ox 98 100 Oxygen Delivery Method Room Air Room Air Positive well nourished General Appearance ED: NAD HEENT Reports moist mucous membranes trauma Eyes PERRL and EOMs intact bilaterally Resp normal respiratory effort and clear to auscultation bilaterally Cardio regular rate and regular rhythm Back/Spine Lumbar Spine / Lower Back: ROM limited, paraspinal muscle tenderness right and straight leg raise positive right at 30 degrees Neuro oriented x3 Sensorium / Orientation: alert Psych mental status grossly normal Skin no rashes or lesions noted and no wounds MDM MDM MDM Narrative Medical decision making narrative: Patient presented with lumbar radiculopathy symptoms. He states this is acute on chronic. He states he may have exacerbated this will work on a car today. He was trying to avoid spinal fusion. Patient states he is on chlorzoxazone celecoxib however he is only partially manage the pain. He states he has been lost to follow-up physical therapy. He has not followed up with his spinal surgeon because he does not want to have surgery. He has no symptoms consistent with cauda equina syndrome or infectious etiology. I do not believe the patient needs any imaging at this time. He was given 4 of morphine IM, Toradol 50 mg IM, prednisone 60 mg. He is now feeling comfortable and ambulate around the hallways. I feel he is safe for discharge home at this time. I will give him a small burst of prednisone and he already has chlorzoxazone at home. Impression: 1. Lumbar strain 2. Lumbar radiculopathy Discharge Plan Triage Chief Complaint: Back ED Provider: Emmett Cabrera Dx/Rx/DC Orders Instructions: Understanding Lumbar Radiculopathy, ED Back Sprain/Strain Prescriptions: New prednisone 10 mg tablet 50 mg PO DAILY 4 Days Qty: 20 RF: 0 No Action chlorzoxazone 500 mg tablet PO PRN (Reason: Pain) RF: 0 celecoxib 100 mg capsule PO RF: 0 hydrocodone-acetaminophen [hydrocodone-acetaminophen] 1 TABLET tablet 1 tab PO Q4H PRN PRN (Reason: Pain) 2 Days Qty: 10 RF: 0 Primary Care Provider: Josafat Davis Referrals: Josafat Davis DO [Primary Care Provider] - Disposition Disposition: Home, Self Care
[2020-10-30] MEDS: predniSONE 20 MG Tablet 60 MG PO (23:19)
[2020-10-30] MEDS: Morphine 4 MG/ML Syringe IM (23:20)
[2020-10-30] MEDS: Ketorolac 15 MG/ML Vial IM (23:21)
[2020-10-31 01:52] VITALS: BP 164/78; PULSE 92; RESP 18; O2SAT 99
== END 2020-10-31 01:53 | disposition home or self-care (01) ==
PROVIDERS: Emergency Provider Student in an Organized Health Care Education/Training Program; PCP Family Medicine
DX: S39.012A Strain of muscle, fascia and tendon of lower back, initial encounter (principal); X58.XXXA Exposure to other specified factors, initial encounter; Y93.9 Activity, unspecified; Y92.9 Unspecified place or not applicable; Y99.9 Unspecified external cause status; M54.16 Radiculopathy, lumbar region; F17.210 Nicotine dependence, cigarettes, uncomplicated; Z79.52 Long term (current) use of systemic steroids
CPT/HCPCS: 96372; 99284

== ENCOUNTER 2020-12-03 18:29 | Emergency (ER) | payer MEDICAID, SELFPAY ==
[2020-12-03 18:30] VITALS: BP 155/99; PULSE 113; RESP 20; TEMP 36.6; O2SAT 100; BMI 28.3
[2020-12-03 20:13] VITALS: BP 140/97; PULSE 92; RESP 15; O2SAT 100
--- NOTE | 2020-12-03 20:41 | EDS_ITS ---
HPI History of Present Illness Chief Complaint: Back Narrative Narrative: 40-year-old male with history of sciatica as well as lumbar back pain presenting with similar symptoms. He states he has been moving his stuff from his old house to his mother's house and made several trips. He states that during this time he started to have pain in the right lumbar paraspinal musculature. He states it also radiates down his leg. He has had this in the past. He denies any loss of bladder or bowel control. He denies any direct trauma. Patient is ambulatory. Patient states that he also has left ear pain. He states he noted this when he was cleaning his ear with a Q-tip. He thought it was caused by smoking in the rain. Patient has not had a fever or chills. PFSH PFSH Home Medications NK 12/03/20 [History Last Taken Unknown] cyclobenzaprine 10 mg PO TID PRN #20 tablet 12/03/20 [Rx Last Taken Unknown] naproxen [Naprosyn] 500 mg PO BID #30 tab 12/03/20 [Rx Last Taken Unknown] Allergy/AdvReac Type Severity Reaction Status Date / Time No Known Allergies Allergy Verified 12/03/20 18:30 Surgical History Hx of tonsillectomy Previous back surgery Social History Smoking Status: Current every day smoker tobacco type: cigarettes ROS ROS ED Constitutional Constitutional ED: Denies chills, fever(s) or sweats Eyes Eyes: Denies blurry vision or change in vision ENT ENT ED: Reports ear pain; Denies rhinorrhea or sore throat Cardiovascular Cardiovascular: Denies chest pain, palpitations or racing heartbeat Respiratory/Chest Respiratory/Chest: Denies cough, dyspnea or sputum Gastrointestinal Gastrointestinal: Denies abdominal pain, constipation, diarrhea or vomiting Genitourinary Genitourinary ED: Denies dysuria, hematuria or urinary frequency Musculoskeletal Musculoskeletal: Reports back pain; Denies neck pain Integumentary Denies abscess, Abrasions or rash Neurologic Neurologic: Denies headache(s), paresthesias or weakness Psychiatric Psychiatric: Denies anxiety, depression, suicidal ideation or suicidal thoughts Endocrine Endocrinology: Denies polydipsia or polyuria EXAM Physical Exam Const Vital Signs: 12/03/20 18:30 12/03/20 20:13 12/03/20 21:26 Temperature 98 F Temperature Source Temporal Pulse Rate 113 H 92 65 Respiratory Rate 20 H 15 16 Blood Pressure 155/99 H 140/97 H 132/86 H Blood Pressure Mean 117 111 Pulse Ox 100 100 100 Oxygen Delivery Method Room Air Room Air Positive well nourished General Appearance ED: NAD; Negative for pallor HEENT Reports normocephalic, head/scalp atraumatic and moist mucous membranes External Auditory Canal: EAC's abnormal right (Erythematous. Pain with movement of the tragus.) Eyes PERRL Neck no lymphadenopathy and supple Chest Wall inspection of chest normal and palpation of chest normal Resp normal respiratory effort and clear to auscultation bilaterally Auscultation: Negative for rales, rhonchi or wheezes Cardio regular rate and regular rhythm GI normal to inspection, nondistended, normoactive bowel sounds and non-distended Auscultation: normoactive bowel sounds Palpation: soft Narrative: Deferred Back/Spine no CVA tenderness Back/Spine Narrative: Right lumbar paraspinal muscular tenderness. No midline spinal tenderness, deformity, step-off. General Back: Negative for CVA tenderness Extremity normal to inspection General Extremety ED: Yes edema and tenderness General Extremity: edema Neuro oriented x3 and CN's II-XII intact bilaterally Sensorium / Orientation: alert Motor Exam: strength 5/5 throughout Psych mental status grossly normal Attitude: No agitated Skin no rashes or lesions noted and no wounds General Skin Exam: Negative for jaundice or pallor MDM MDM MDM Narrative Medical decision making narrative: Patient presenting with back pain and ear pain. His left ear does appear to have otitis externa. He will be given Cortisporin for this. Patient also has lumbar paraspinal muscular tenderness. He is given a shot of Norflex and Toradol with some improvement. He was sent ho ma on Naprosyn and cyclobenzaprine. Counseled to alternate ice and heat. Patient stable discharge at this time. Impression: 1. Lumbar strain Discharge Plan Triage Chief Complaint: Back ED Provider: Emmett Caberra Dx/Rx/DC Orders Instructions: ED Back Spasm, No Trauma, ED External Ear Infection (Adult) Prescriptions: New cyclobenzaprine 10 mg tablet 10 mg PO TID PRN (Reason: Muscle Spasm) Qty: 20 RF: 0 naproxen [Naprosyn] 500 mg tablet 500 mg PO BID Qty: 30 RF: 0 No Action NK RF: 0 Primary Care Provider: Josafat Davis Referrals: Josafat Davis DO [Primary Care Provider] - Disposition Disposition: Home, Self Care Discharge Date/Time: 12/03/20 21:27
[2020-12-03] MEDS: Neomycin/Polymyxin/Dexameth 5ML OPTH.BTL 4 DRP OTIC (20:59)
[2020-12-03] MEDS: Ketorolac 15 MG/ML Vial IM (21:00)
[2020-12-03] MEDS: Orphenadrine 60 MG/2 ML Ampul IM (21:00)
[2020-12-03 21:26] VITALS: BP 132/86; PULSE 65; RESP 16; O2SAT 100
== END 2020-12-03 21:27 | disposition home or self-care (01) ==
PROVIDERS: Emergency Provider Student in an Organized Health Care Education/Training Program; PCP Family Medicine
DX: S39.012A Strain of muscle, fascia and tendon of lower back, initial encounter (principal); X50.3XXA Overexertion from repetitive movements, initial encounter; X50.0XXA Overexertion from strenuous movement or load, initial encounter; Y93.89 Activity, other specified; Y92.009 Unspecified place in unspecified non-institutional (private) residence as the place of occurrence of the external cause; Y99.8 Other external cause status; H60.92 Unspecified otitis externa, left ear; F17.210 Nicotine dependence, cigarettes, uncomplicated
CPT/HCPCS: 96372; 99283

== ENCOUNTER 2020-12-19 11:15 | Emergency (ER) | payer MEDICAID, SELFPAY ==
[2020-12-19 11:16] VITALS: BP 114/90; PULSE 105; RESP 16; TEMP 36.1; BMI 28.3
--- NOTE | 2020-12-19 12:24 | EDS_ITS ---
HPI History of Present Illness Chief Complaint: Back Informant: patient Narrative Narrative: 40-year-old male presents the emergency room with right-sided back pain with radiation into the inguinal region. He states that he has had a prior laminectomy and he has an appointment with his surgeon on the of this month. He has not contacted his primary care doctor to see if they can help with pain control. He notes that he has been just dealing with the pain and occasionally coming to emergency. He states he is very frustrated with his chronic pain. He denies any bowel or bladder dysfunction. He denies any radiation to the leg at this time. He notes the pain is in the low back and the buttock region PFSH PFSH Home Medications cyclobenzaprine 10 mg PO TID PRN #20 tablet 12/03/20 [Rx Last Taken Unknown] naproxen [Naprosyn] 500 mg PO BID #30 tab 12/03/20 [Rx Last Taken Unknown] diazepam 5 mg PO Q8 PRN #12 tab 12/19/20 [Rx Last Taken Unknown] hydrocodone-acetaminophen 1 tab PO Q6H PRN PRN 3 Days #12 tablet 12/19/20 [Rx Last Taken Unknown] prednisone See Rx Instructions .ROUTE .COMPLEX #24 tablet 12/19/20 [Rx Last Taken Unknown] Allergy/AdvReac Type Severity Reaction Status Date / Time No Known Allergies Allergy Verified 12/19/20 11:18 Surgical History Hx of tonsillectomy Previous back surgery Social History (Updated 12/19/20 @ 12:[address] Mynor Colon DO) Smoking Status: Current every day smoker tobacco type: cigarettes substance use type: marijuana ROS ROS ED Constitutional Constitutional ED: Denies chills or weight loss Eyes Eyes: Denies change in vision or diplopia ENT ENT ED: Denies ear pain, rhinorrhea or sore throat Cardiovascular Cardiovascular: Denies chest pain, orthopnea, palpitations or racing heartbeat Respiratory/Chest Respiratory/Chest: Denies cough, dyspnea or orthopnea Gastrointestinal Gastrointestinal: Denies abdominal pain, diarrhea, nausea or vomiting Genitourinary Genitourinary ED: Denies dysuria, hematuria or urinary frequency Musculoskeletal Musculoskeletal: Reports back pain; Denies arthralgias or myalgias Integumentary Denies abscess or rash Neurologic Neurologic: Denies headache(s) or weakness Psychiatric Psychiatric: Denies anxiety, depression, suicidal ideation or suicidal thoughts Endocrine Endocrinology: Denies polydipsia, polyphagia or polyuria Allergic/Immunologic Allergic/Immunologic ED: Denies mouth swelling, tongue swelling or urticaria EXAM Physical Exam Const Vital Signs: 12/19/20 11:16 Temperature 97.0 F L Temperature Source Temporal Pulse Rate 105 H Respiratory Rate 16 Blood Pressure 114/90 H Blood Pressure Mean 98 Positive well nourished and well developed General Appearance ED: well developed HEENT Reports normocephalic, head/scalp atraumatic and moist mucous membranes Eyes PERRL and EOMs intact bilaterally Neck no lymphadenopathy, supple and no JVD Resp normal respiratory effort and clear to auscultation bilaterally Cardio regular rate, regular rhythm and no murmurs GI normal to inspection, nondistended, normoactive bowel sounds and non-tender Palpation: soft Back/Spine no CVA tenderness and normal ROM Extremity normal to inspection General Extremety ED: Negative for edema General Extremity: Negative for edema Neuro oriented x3 and CN's II-XII intact bilaterally Sensorium / Orientation: alert Motor Exam: strength 5/5 throughout Psych Attitude: agitated Mood & Affect: tearful; Negative for depressed Skin no rashes or lesions noted and no wounds MDM MDM MDM Narrative Medical decision making narrative: Patient's had success with steroids in the past. I can write for those as well as some Valium for muscle relaxation and a few [place]. I suggest that the patient contact his primary care doctor for continued pain control and possibly referral to pain management Discharge Plan Triage Chief Complaint: Back ED Provider: Mynor Colon Dx/Rx/DC Orders Clinical Impression: Acute low back pain Instructions: ED Sciatica Prescriptions: New hydrocodone-acetaminophen [hydrocodone-acetaminophen] 1 TABLET tablet 1 tab PO Q6H PRN PRN (Reason: Pain) 3 Days Qty: 12 RF: 0 diazepam [diazepam] 5 MG tablet 5 mg PO Q8 PRN (Reason: Muscle Spasm) Qty: 12 RF: 0 prednisone 20 MG tablet See Rx Instructions .ROUTE .COMPLEX Qty: 24 RF: 0 No Action cyclobenzaprine 10 mg tablet 10 mg PO TID PRN (Reason: Muscle Spasm) Qty: 20 RF: 0 naproxen [Naprosyn] 500 mg tablet 500 mg PO BID Qty: 30 RF: 0 Primary Care Provider: Josafat Davis Referrals: Josafat Davis, [Primary Care Provider] - As soon as possible Activity Restrictions/Additional Instructions: It would most likely benefit you to talk to your family doctor about seeing pain management Disposition Disposition: Home, Self Care
== END 2020-12-19 12:49 | disposition home or self-care (01) ==
LOC: ED 12:42
PROVIDERS: Emergency Provider Emergency Medicine; PCP Family Medicine
DX: M54.50 Low back pain, unspecified (principal); G89.29 Other chronic pain; F17.210 Nicotine dependence, cigarettes, uncomplicated
CPT/HCPCS: 99282

== ENCOUNTER 2021-01-06 19:52 | Emergency (ER) | payer MEDICAID, SELFPAY ==
[2021-01-06 19:53] VITALS: BP 160/115; PULSE 126; RESP 24; TEMP 36.7; O2SAT 99; BMI 27.7
[2021-01-06] MEDS: Ketorolac 15 MG/ML Vial IV (20:40)
--- NOTE | 2021-01-06 20:56 | ED.VIS.BACK ---
HPI History of Present Illness Chief Complaint: Back Informant: patient Onset/Context/Timing Onset: Hours Context: Sudden Onset Injury: lifting, twisting, bending and repetitive motion Timing: Continuous and Waxes and wanes Quality: Dull, Aching and Throbbing Location: Lumbar Current Severity: Severe Maximum Severity: Severe Worsened by: improves with Movement, Ambulation, Bending and Lifting Relieved by: Nothing Associated Symptoms Associated Symptoms: Negative for Numbness, Tingling, Radiation to Right Leg, Radiation to Left Leg, Fever, Abdominal Pain, Dysuria, Unable to Ambulate, Unable to Transfer, Urinary Retention, Urinary Incontinence, Constipation and Fecal Incontinence Narrative Narrative: Patient is a 40-year-old male with history of herniated disc L5 2013 and surgery 2015. He states he was at work lifting objects. He presents because of severe low back pain. He denies radicular pain. He denies bowel bladder dysfunction. No saddle paresthesia or anesthesia. He denies foot drop. [place] buckling of his knees. He denies direct trauma. He denies any other symptoms. Prior similar symptoms: Yes and With Prior Back Pain Recent Illness/Hospitalization: No PFSH PFSH Home Medications cyclobenzaprine 10 mg PO TID PRN #20 tablet 12/03/20 [Rx Last Taken Unknown] naproxen [Naprosyn] 500 mg PO BID #30 tab 12/03/20 [Rx Last Taken Unknown] diazepam 5 mg PO Q8 PRN #12 tab 12/19/20 [Rx Last Taken Unknown] hydrocodone-acetaminophen 1 tab PO Q6H PRN PRN 3 Days #12 tablet 12/19/20 [Rx Last Taken Unknown] prednisone See Rx Instructions .ROUTE .COMPLEX #24 tablet 12/19/20 [Rx Last Taken Unknown] hydrocodone-acetaminophen 1 tab PO Q6H PRN PRN 3 Days #10 tablet 01/06/21 [Rx Last Taken Unknown] naproxen 500 mg PO BID #14 tab 01/06/21 [Rx Last Taken Unknown] Allergy/AdvReac Type Severity Reaction Status Date / Time No Known Allergies Allergy Verified 01/06/21 19:53 Surgical History Hx of tonsillectomy Previous back surgery Social History (Updated 01/06/21 @ 20:[address] Neeraj Antonio MD) household members: none Smoking Status: Current every day smoker tobacco type: cigarettes alcohol intake: current alcohol intake frequency: other substance use type: marijuana ROS ROS ED Constitutional Constitutional ED: Denies chills, fever(s), subjective or sweats Eyes Eyes: Denies blurry vision, change in vision or diplopia ENT ENT ED: Denies ear pain, rhinorrhea or sore throat Cardiovascular Cardiovascular: Denies chest pain, palpitations or racing heartbeat Respiratory/Chest Respiratory/Chest: Denies dyspnea, dyspnea on exertion or sputum Gastrointestinal Gastrointestinal: Denies abdominal pain, diarrhea, nausea or vomiting Genitourinary Genitourinary ED: Denies dysuria, hematuria or urinary frequency Musculoskeletal Musculoskeletal: Reports back pain; Denies arthralgias, myalgias or neck pain Integumentary Denies abscess, Abrasions or rash Neurologic Neurologic: Denies headache(s), paresthesias or weakness Hematologic/Lymphatic Hematologic/Lymphatic: Denies easy bleeding or easy bruising EXAM Physical Exam Const Vital Signs: 01/06/21 19:53 Temperature 98.1 F Temperature Source Temporal Pulse Rate 126 H Respiratory Rate 24 H Blood Pressure 160/115 H Blood Pressure Mean 130 Pulse Ox 99 Oxygen Delivery Method Room Air Positive well nourished and well developed General Appearance ED: well developed; Negative for NAD or pallor HEENT HEENT Narrative: Head is atraumatic normocephalic. Ears normal. Nares patent. Posterior pharynx out erythema or exudate. Eyes PERRL and EOMs intact bilaterally General Eye ED: Negative for pale conjunctiva or scleral icterus Neck no lymphadenopathy, supple and no JVD General: Negative for tenderness Resp normal respiratory effort and clear to auscultation bilaterally Cardio regular rate, regular rhythm, S1 normal heart sound, S2 normal heart sound and no murmurs GI normal to inspection, nondistended, normoactive bowel sounds, soft to palpation and non-tender GI Narrative: No palpable full or pulsatile mass. No abdominal bruit. Back/Spine normal to inspection; Negative for no thoracic nor lumbar tenderness Back/Spine Narrative: Patella and ankle reflexes are 2+ and symmetric. EHLs intact. Normal sensation over L4-5 dermatome. Normal perianal sensation. 5/5 strength hip flexors General Back: scar(s); Negative for CVA tenderness Cervical Spine: Negative for cervical spine tenderness and Negative for paracervical muscle tenderness Thoracic Spine / Upper Back: Negative for paraspinal muscle tenderness Lumbar Spine / Lower Back: ROM limited and straight leg raise negative bilaterally Extremity normal to inspection; Negative for no clubbing, cyanosis or edema General Extremety ED: Negative for edema or tenderness General Extremity: Negative for edema Neuro oriented x3 and no sensory deficits noted Sensorium / Orientation: alert Deep Tendon Reflexes: Rt Patellar (L4): 2+, Lt Patellar (L4): 2+, Rt Ankle (S1): 2+ and Lt Ankle (S1): 2+ Deep Tendon Reflexes Back: Rt Patellar (L4): 2+, Lt Patellar (L4): 2+, Rt Ankle (S1): 2+ and Lt Ankle (S1): 2+ Plantar Reflex: Downgoing: bilateral Psych mental status grossly normal Skin no rashes or lesions noted and no wounds General Skin Exam: Negative for jaundice or pallor MDM MDM MDM Narrative Medical decision making narrative: Patient's history and physical is consistent with. Lumbar muscle strain. He has no findings to suggest herniated disc. He has no objective neurologic deficit. Since he drove himself to the emergency department he initially was treated with Toradol. He contacted his nephew who lives 2 blocks from here to drive him home. He was ordered Valium and morphine IV. He will be discharged home. Discharge Plan Triage Chief Complaint: Back ED Provider: Neeraj Antonio Dx/Rx/DC Orders Clinical Impression: Strain of muscle, fascia and tendon of lower back, initial encounter Instructions: ED Back Sprain/Strain Prescriptions: New hydrocodone-acetaminophen [hydrocodone-acetaminophen] 1 TABLET tablet 1 tab PO Q6H PRN PRN (Reason: Pain) 3 Days Qty: 10 RF: 0 naproxen 500 MG tablet 500 mg PO BID Qty: 14 RF: 0 No Action cyclobenzaprine 10 mg tablet 10 mg PO TID PRN (Reason: Muscle Spasm) Qty: 20 RF: 0 naproxen [Naprosyn] 500 mg tablet 500 mg PO BID Qty: 30 RF: 0 hydrocodone-acetaminophen [hydrocodone-acetaminophen] 1 TABLET tablet 1 tab PO Q6H PRN PRN (Reason: Pain) 3 Days Qty: 12 RF: 0 diazepam [diazepam] 5 MG tablet 5 mg PO Q8 PRN (Reason: Muscle Spasm) Qty: 12 RF: 0 prednisone 20 MG tablet See Rx Instructions .ROUTE .COMPLEX Qty: 24 RF: 0 Primary Care Provider: Josafat Davis Referrals: Josafat Davis DO [Primary Care Provider] - Disposition Disposition: Home, Self Care
--- NOTE | 2021-01-06 21:20 | ED.RN ---
PT HAS NO RIDE HOME AND DOES NOT WANT TO WAIT 4-6 HOURS, SO MORPHINE AND VALIUM REFUSED BY PT.
== END 2021-01-06 21:34 | disposition home or self-care (01) ==
PROVIDERS: Emergency Provider Emergency Medicine; PCP Family Medicine
DX: S39.012A Strain of muscle, fascia and tendon of lower back, initial encounter (principal); X50.3XXA Overexertion from repetitive movements, initial encounter; Y93.89 Activity, other specified; Y92.9 Unspecified place or not applicable; Y99.0 Civilian activity done for income or pay; F17.210 Nicotine dependence, cigarettes, uncomplicated
CPT/HCPCS: 96374; 99284; A4216

== ENCOUNTER 2021-02-15 10:22 | Emergency (ER) | payer MEDICAID, SELFPAY ==
[2021-02-15 10:23] VITALS: BP 147/96; PULSE 116; RESP 18; TEMP 37; O2SAT 98; BMI 28.2
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
[2021-02-15] MEDS: Morphine 4 MG/ML Syringe IM (11:09)
[2021-02-15] MEDS: Ketorolac 60 MG/2 ML Vial IM (11:09)
[2021-02-15] MEDS: Orphenadrine 60 MG/2 ML Ampul IM (11:12)
[2021-02-15 11:51] VITALS: BP 132/81; PULSE 82
== END 2021-02-15 11:52 | disposition home or self-care (01) ==
PROVIDERS: Emergency Provider Emergency Medicine; PCP Family Medicine
DX: M54.50 Low back pain, unspecified (principal); G89.29 Other chronic pain; F17.210 Nicotine dependence, cigarettes, uncomplicated
CPT/HCPCS: 96372; 99282

== ENCOUNTER 2021-03-18 19:09 | Emergency (ER) | payer MEDICAID, SELFPAY ==
[2021-03-18 19:10] VITALS: BP 149/104; PULSE 115; RESP 20; TEMP 36.8; O2SAT 99; BMI 27.7
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
[2021-03-18] MEDS: diazePAM 5 MG Tablet PO (21:23)
== END 2021-03-18 21:33 | disposition home or self-care (01) ==
LOC: ED 21:28
PROVIDERS: Emergency Provider Emergency Medicine; PCP Family Medicine; Visit Provider Emergency Medicine
DX: M54.2 Cervicalgia (principal); F12.959 Cannabis use, unspecified with psychotic disorder, unspecified; F31.9 Bipolar disorder, unspecified; M54.50 Low back pain, unspecified; G89.29 Other chronic pain; M62.830 Muscle spasm of back; F17.210 Nicotine dependence, cigarettes, uncomplicated
CPT/HCPCS: 99282

== ENCOUNTER 2021-06-15 20:22 | Emergency (ER) | payer MEDICAID, SELFPAY ==
[2021-06-15 20:23] VITALS: BP 164/118; PULSE 129; RESP 20; TEMP 36.6; O2SAT 96; BMI 28.4
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
[2021-06-15] MEDS: diazePAM 2 MG Tablet PO (21:18)
[2021-06-15] MEDS: Penicillin Vk 250 MG Tablet 500 MG PO (21:18)
[2021-06-15] MEDS: HYDROcodone Bitartrate/Apap 5/325 Tablet PO (21:18)
[2021-06-15] MEDS: Naproxen 500 MG Tablet PO (21:18)
== END 2021-06-15 21:44 | disposition home or self-care (01) ==
LOC: ED 21:11
PROVIDERS: Emergency Provider Emergency Medicine; PCP Family Medicine; Visit Provider Emergency Medicine
DX: K08.89 Other specified disorders of teeth and supporting structures (principal); M62.838 Other muscle spasm; F17.210 Nicotine dependence, cigarettes, uncomplicated
CPT/HCPCS: 99282

== ENCOUNTER 2021-08-19 13:04 | Emergency (ER) | payer MEDICAID, SELFPAY ==
[2021-08-19 13:05] VITALS: BP 125/72; PULSE 89; RESP 22; TEMP 36.7; O2SAT 100; BMI 28.3
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
[2021-08-19] MEDS: Morphine 4 MG/ML Syringe IM (13:32)
[2021-08-19] MEDS: Ketorolac 60 MG/2 ML Vial IM (13:33)
[2021-08-19] MEDS: Orphenadrine 60 MG/2 ML Ampul IM (13:36)
[2021-08-19 15:14] VITALS: BP 123/75; PULSE 76; RESP 16; O2SAT 97
== END 2021-08-19 15:24 | disposition home or self-care (01) ==
PROVIDERS: Emergency Provider Emergency Medicine; PCP Family Medicine; Visit Provider Emergency Medicine
DX: M54.50 Low back pain, unspecified (principal); M62.830 Muscle spasm of back; G89.29 Other chronic pain; F17.210 Nicotine dependence, cigarettes, uncomplicated; Z98.1 Arthrodesis status; Z59.00 Homelessness unspecified
CPT/HCPCS: 96372; 99284

== ENCOUNTER 2021-08-20 15:32 | Emergency (ER) | payer MEDICAID, SELFPAY ==
[2021-08-20 15:33] VITALS: BP 140/89; PULSE 75; RESP 15; TEMP 36.4; O2SAT 97; BMI 27.7
--- NOTE | 2021-08-20 15:52 | EDS_ITS ---
HPI HPI - Psych History of Present Illness Chief Complaint: Suicidal Informant: patient Onset/Context/Timing Onset: Today Associated Symptoms Associated Symptoms - Psych: Positive for Depressed and Suicidal Thoughts Specific plan (suicidal thought): Stepped in front of a truck Narrative Narrative: Patient presents secondary to suicidal ideations. He states that he has been trying to turn his life around and gotten off of drugs. He is currently homeless and feel that he just cannot catch a break. He has had a migraine for the past 2 days and was seen in the ER yesterday for chronic low back pain. He states he is just at the end of his rope. Today he had a thought of walking out in front of a truck. He decided was safer to come to the emergency room for evaluation. He denies psychiatric history. He denies being in counseling or psychiatric hospital in the past. [facility] Medical History ADHD Cervical radiculopathy Sciatica Home Medications NK 08/20/21 [History Last Taken Unknown] Allergy/AdvReac Type Severity Reaction Status Date / Time No Known Allergies Allergy Verified 08/20/21 15:33 Surgical History Hx of tonsillectomy Previous back surgery Social History household members: none Smoking Status: Current every day smoker tobacco type: cigarettes alcohol intake: current alcohol intake frequency: other substance use type: marijuana ROS ROS ED Constitutional Constitutional ED: Denies chills or fever(s) Eyes Eyes: Denies change in vision ENT ENT ED: Denies sore throat Cardiovascular Cardiovascular: Denies chest pain Respiratory/Chest Respiratory/Chest: Denies cough or dyspnea Gastrointestinal Gastrointestinal: Denies abdominal pain, nausea or vomiting Genitourinary Genitourinary ED: Denies dysuria Musculoskeletal Musculoskeletal: Reports back pain Integumentary Denies rash Neurologic Neurologic: Reports headache(s); Denies weakness Psychiatric Psychiatric: Reports depression and suicidal thoughts Endocrine Endocrinology: Denies polydipsia or polyuria Allergic/Immunologic Allergic/Immunologic ED: Denies urticaria EXAM Physical Exam Const Vital Signs: 08/20/21 15:33 08/20/21 18:15 Temperature 97.6 F L Temperature Source Temporal Pulse Rate 75 67 Respiratory Rate 15 16 Blood Pressure 140/89 H 124/70 H Blood Pressure Mean 106 88 Pulse Ox 97 99 Oxygen Delivery Method Room Air Room Air Positive well nourished HEENT normocephalic and atraumatic Eyes PERRL and EOMs intact bilaterally Neck supple Resp normal respiratory effort and clear to auscultation bilaterally Cardio Rate: regular rate Rhythm: regular rhythm GI non-tender and non-distended Auscultation: normoactive bowel sounds Palpation: soft Back/Spine Back/Spine Narrative: Lumbar paraspinal tenderness. Extremity normal to inspection Neuro oriented x3, CN's II-XII intact bilaterally and no sensory deficits noted Sensorium / Orientation: alert Motor Exam: strength 5/5 throughout Psych Attitude: calm and engaged Activity / Motor Behavior: appropriate eye contact Speech: pressured Mood & Affect: depressed Thought Process: normal thought process Thought Content: suicidality Insight: poor Judgement: poor Skin Lesions: no lesions Rashes: no rashes MDM MDM MDM Narrative Medical decision making narrative: Lab work obtained for psychiatric clearance. Patient given IM Toradol, Reglan, Benadryl for migraine. Lab Data Attestation: I reviewed the patient's lab results. Labs: Laboratory Results - last 24 hr 08/20/21 08/20/21 08/20/21 16:00 16:00 16:00 WBC 2.0 L RBC 4.44 L Hgb 14.0 Hct 41.5 MCV 93.5 MCH 31.5 MCHC 33.7 RDW Std Deviation 40.6 RDW Coeff of Navid 11.9 Plt Count 172 MPV 12.0 Immature Gran % (Auto) 0.500 Neut % (Auto) 40.8 L Lymph % (Auto) 20.4 [place] % (Auto) 37.8 H Eos % (Auto) 0.0 Baso % (Auto) 0.5 Absolute Neuts (auto) 0.8 L Absolute Lymphs (auto) 0.41 L Nucleated RBC % 0 Differential Comment SEE COMMENTS Diff Path Review May foll Platelet Estimate ADEQUATE RBC Morphology N CHROM Anisocytosis RARE Macrocytosis RARE Sodium 134 L Potassium 3.2 L Chloride 100 Carbon Dioxide 25.0 Anion Gap 9 BUN 13 Creatinine 1.16 Estim Creat Clear Calc 95.67 Est GFR (MDRD) Af Amer 90 Est GFR (MDRD) Non-Af 74 BUN/Creatinine Ratio 11.2 Glucose 120 H Calcium 8.7 Urine Opiates Screen Urine Methadone Screen Ur Barbiturates Screen Ur Phencyclidine Scrn Ur Amphetamines Screen MDMA (Ecstasy) Screen U Benzodiazepines Scrn Urine Cocaine Screen U Cannabinoids Screen Ur Drug Screen Comment Ethyl Alcohol 5.0 08/20/21 16:05 WBC RBC Hgb Hct MCV MCH MCHC RDW Std Deviation RDW Coeff of Navid Plt Count MPV Immature Gran % (Auto) Neut % (Auto) Lymph % (Auto) [place] % (Auto) Eos % (Auto) Baso % (Auto) Absolute Neuts (auto) Absolute Lymphs (auto) Nucleated RBC % Differential Comment Diff Path Review Platelet Estimate RBC Morphology Anisocytosis Macrocytosis Sodium Potassium Chloride Carbon Dioxide Anion Gap BUN Creatinine Estim Creat Clear Calc Est GFR (MDRD) Af Amer Est GFR (MDRD) Non-Af BUN/Creatinine Ratio Glucose Calcium Urine Opiates Screen NEGATIVE Urine Methadone Screen NEGATIVE Ur Barbiturates Screen NEGATIVE Ur Phencyclidine Scrn NEGATIVE Ur Amphetamines Screen NEGATIVE MDMA (Ecstasy) Screen NEGATIVE U Benzodiazepines Scrn NEGATIVE Urine Cocaine Screen NEGATIVE U Cannabinoids Screen POSITIVE H Ur Drug Screen Comment Ethyl Alcohol Rapid COVID: Positive Treatment and Re-Evaluation Narrative: Patient's lab work significant for leukopenia with a white count of 2.0. Chemistry studies reveal mildly low potassium at 3.2. Talk screen positive for cannabinoids. Rapid COVID test returns positive. Patient states he has not had the COVID-vaccine. Crisis did request a COVID PCR test which is still pending at this time. Patient was given Tylenol as well as Imitrex for continued migraine symptoms. Patient has been accepted in transfer at [facility] to their psychiatric COVID unit. Patient will be transferred via EMS with monitoring. Discharge Plan Triage Chief Complaint: Suicidal ED Provider: Haley Vargas Dx/Rx/DC Orders Clinical Impression: Suicidal ideation, COVID-19 Prescriptions: No Action NK RF: 0 Primary Care Provider: Josafat Davis Referrals: Josafat Davis DO [Primary Care Provider] - Disposition Disposition: Psychiatric Hospital or Unit Discharge Location: [facility]
[2021-08-20 16:11] LABS: Absolute Lymphocyte Count 0.41 X10^3/uL (0.83-4.51); Absolute Neutrophil Count 0.8 X10^3/uL (2.0-7.7); Basophil# 0.01 X10^3/uL; Basophil% 0.5 % (0-1); Hematocrit 41.5 % (40-54); Lymphocyte # 0.41 X10^3/ul (0.83-4.51); Lymphocyte % 20.4 % (19-41); Mean Corp Hgb Conc 33.7 g/dL (32-36); Mean Corpuscular Hgb 31.5 pg (27.0-32.0); Mean Corpuscular Volume 93.5 fL (80-94); Monocyte# 0.76 X10^3/uL; Monocyte% 37.8 % (0-10); NRBC Flagged by Analyzer 0 % (0-5); Neutrophil # 0.82 X10^3/uL (2.7-7.7); Neutrophil % 40.8 % (47-70); POSITIVE DIFFERENTIAL YES; Platelet Count 172 K/mm3 (150-450); RBC Distribution Width CV 11.9 % (11.6-14.6); RBC Distribution Width SD 40.6 fl (35.1-43.9); Red Blood Count 4.44 M/mm3 (4.6-6.2)
[2021-08-20] MEDS: Metoclopramide 10 MG/2 ML Vial IM (16:16)
[2021-08-20] MEDS: Ketorolac 60 MG/2 ML Vial IM (16:16)
[2021-08-20] MEDS: DiphenhydrAMINE 50 MG/ML Syringe IM (16:17)
[2021-08-20 16:24] LABS: Anion Gap 9 (5-15); BUN 13 mg/dL (7-18); BUN/Creat Ratio 11.2 RATIO (10-20); Calcium,Total 8.7 mg/dL (8.5-10.1); Chloride 100 mmol/L (98-107); Creatinine, Serum 1.16 mg/dL (0.70-1.30); EST Glomerular Filtration Rate 74 mL/min (>60); Est Glom Filt Rate - Afr Amer 90 mL/min (>60); Estimated Creatinine Clearance 95.67 ml/min; Glucose 120 mg/dL (74-106); Potassium 3.2 mmol/L (3.5-5.1); Sodium Level 134 mmol/L (136-145)
[2021-08-20 16:34] LABS: Amphetamine Urine VISTA NEGATIVE (<1000 ng/mL); Barbiturate Urine VISTA NEGATIVE (< 200 ng/mL); Benzodiazepine Urine VISTA NEGATIVE (< 200 ng/mL); Cocaine Urine VISTA NEGATIVE (< 300 ng/mL); Ecstacy Urine VISTA NEGATIVE (< 500 ng/mL); Methadone Urine VISTA NEGATIVE (< 300 ng/mL); PCP Urine VISTA NEGATIVE (< 25 ng/mL); THC Urine VISTA POSITIVE (< 50 ng/mL); Vista UDS pH Range 6
[2021-08-20 16:38] LABS: Differential Indicated SCAN CRITERIA MET
[2021-08-20 16:40] LABS: Anisocytosis RARE; Differential Comment SEE COMMENTS; Macrocytosis RARE; Platelet Estimate ADEQUATE (ADEQ); Red Cell Morphology N CHROM NORMAL (NORM C&C)
[2021-08-20] MEDS: SUMAtriptan 6 MG/0.5 ML Vial SC (18:14)
[2021-08-20] MEDS: Acetaminophen 500 MG Tablet 1000 MG PO (18:14)
[2021-08-20 18:15] VITALS: BP 124/70; PULSE 67; RESP 16; O2SAT 99
[2021-08-20 20:00] VITALS: RESP 15
--- NOTE | 2021-08-20 20:17 | ED.RN ---
PATIENT IS ACCEPTED AT [facility], PATIENT CANT ARRIVE UNTIL AFTER 0100 DUE TO NURSING SHORTAGE, PHYSICIANS WAS CALLED FOR A RIDE AT 12:30AM. ACCEPTING , PHONE NUMBER IS [phone]. PT IS ACCEPTED EVEN THOUGH HE IS COVID POSITIVE.
[2021-08-20 22:00] VITALS: RESP 15
[2021-08-20 23:29] VITALS: BP 139/92; PULSE 56; RESP 16; TEMP 36.6; O2SAT 99
--- NOTE | 2021-08-20 23:50 | ED.RN ---
CALLED TO GIVE NURSING REPORT TO DINH MCCOY. [facility]
[2021-08-21] VITALS (11 sets, daily range): BP systolic 137–151; BP diastolic 91–100; PULSE 59–82; RESP 12–18; TEMP 36.6–37.2; O2SAT 98–100
--- NOTE | 2021-08-21 01:06 | ED.RN ---
THE FACILITY WHERE THIS PERSON WAS ACCEPTED WHICH WAS [facility] CALLED AND THEY SAID THAT THEY CANT ACCEPT THIS PATIENT DUE TO HIM BEING COVID POSITIVE, THEY WAS TOLD RIGHT OFF THE BAT THAT THEY WAS COVID POSITIVE, A DOCTOR ACCEPTED THEM. TRANSPORT WAS 10 MINUTES OUT AND HAD TO CANCEL THEM. [facility] WAS CALLED AND THEY SAID THEY WILL WORK ON PLACEMENT FOR THIS PERSON.
[2021-08-21] MEDS: Acetaminophen 500 MG Tablet 1000 MG PO (04:41)
[2021-08-21] MEDS: SUMAtriptan 6 MG/0.5 ML Vial SC (04:54)
--- NOTE | 2021-08-21 08:53 | ED.RN ---
PER CHARU WITH [facility]; HAVING TROUBLE WITH PLACEMENT DUE TO PT BEING COVID +. SHE WILL CONTINUE TO CALL FACILITIES
--- NOTE | 2021-08-21 10:30 | CM.ED ---
Addendum entered by Alexa Fernandez 08/21/21 19:33: Telephone call to [facility] and they are also not taking COVID+ patients. Addendum entered by Alexa Fernandez 08/21/21 10:37: [facility] is also not able to accept COVID+ patients. Original Note: Social Work Note SW placed a call to Alexa with Crisis. Alexa states she has tried , [facility], [facility], [facility], [facility] and none of them are taking COVID+ psych patients. Telephone call to [facility], [facility], [facility], [facility], [facility], and [facility]- none are taking COVID+ patients. [facility] will take COVID+ pt's 10 days after pt tests positive for COVID. Alexa Fernandez PMO LEAD, TOPOLOGY PROFESSOR
--- NOTE | 2021-08-21 10:33 | ED.RN ---
pt requesting a cigarette but understanding that he can not have one. pt refused josiane. patch or gum.
--- NOTE | 2021-08-21 10:35 | ED.RN ---
pt tearful and regretful for having si. pt wants to be here for his daughter.
[2021-08-21 12:35] LABS: Pathologist Review Reviewed
--- NOTE | 2021-08-21 12:39 | ED.RN ---
PER SW [facility] WILL BE REASSESSING THE PT 24 HRS AFTER ORIGINAL ASSESSMENT D/T UNABLE TO FIND PLACEMENT
--- NOTE | 2021-08-21 17:13 | CM.ED ---
Addendum entered by Alexa Fernandez 08/21/21 18:44: Telephone call to [facility]. Adriana from crisis will be reevaluating pt when she begins her shift at 8:00pm. Original Note: Social Work Note SW received call from Alexa at [facility] stating Stephanie will reevaluate pt. Alexa Fernandez TEAM SPORTS SALES ASSOCIATE, PARAGLIDING INSTRUCTOR
--- NOTE | 2021-08-21 22:31 | ED.RN ---
[facility]is on the phone with patient for re eval at this time
[2021-08-22 00:05] VITALS: BP 132/74; PULSE 74; O2SAT 98
[2021-08-22 00:06] VITALS: RESP 17
== END 2021-08-22 00:07 | disposition home or self-care (01) ==
PROVIDERS: Emergency Provider Emergency Medicine; PCP Family Medicine; Visit Provider Emergency Medicine
DX: R45.851 Suicidal ideations (principal); U07.1 COVID-19; F17.210 Nicotine dependence, cigarettes, uncomplicated; G43.909 Migraine, unspecified, not intractable, without status migrainosus; Z59.00 Homelessness unspecified; Z28.310 Unvaccinated for COVID-19; Z28.9 Immunization not carried out for unspecified reason
CPT/HCPCS: 36415; 80048; 80307; 82077; 85025; 87635; 87811; 96372; 99285; J3030; U0003; U0005

== ENCOUNTER 2022-06-16 22:14 | Emergency (ER) | payer MEDICAID, SELFPAY ==
[2022-06-16 22:15] VITALS: TEMP 36.9; BMI 25.2
[2022-06-16 22:21] VITALS: BP 133/95; PULSE 104; RESP 18; O2SAT 97
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
--- NOTE | 2022-06-16 22:51 | ED.RN ---
Patient left AMA. Paperwork signed.
== END 2022-06-16 22:51 | disposition left against medical advice (07) ==
LOC: ED 22:47
PROVIDERS: Emergency Provider Emergency Medicine; PCP Family Medicine; Visit Provider Emergency Medicine
DX: R40.4 Transient alteration of awareness (principal); F17.210 Nicotine dependence, cigarettes, uncomplicated; Z53.29 Procedure and treatment not carried out because of patient's decision for other reasons
CPT/HCPCS: 99283

== ENCOUNTER 2022-11-09 13:31 | Emergency (ER) | payer MEDICAID, SELFPAY ==
[2022-11-09 13:32] VITALS: BP 151/94; PULSE 117; RESP 22; TEMP 36.1; O2SAT 99; BMI 25.0
--- NOTE | 2022-11-09 14:54 | ED.VIS.BACK ---
HPI History of Present Illness Chief Complaint: Back Informant: patient Narrative Narrative: Patient states he injured his back today several hours ago. He was helping someone move, he was helping them lift and carry a large fireplace insert, he said after they lifted it he was okay, then he went to turn and had sudden onset of pain throughout his low back, no radiation into his legs no weakness or numbness, no bowel or bladder dysfunction, hurts more to move better to remain still. Had a history of a laminectomy for sciatica remotely and agrees that those symptoms are not there now. [facility] Medical History ADHD Cervical radiculopathy Sciatica Home Medications cyclobenzaprine 10 mg tablet 10 mg PO TID PRN Muscle Spasm #20 TABLETS 11/09/22 [Rx Last Taken Unknown] hydrocodone-acetaminophen 5-325mg 5mg-325mg 1 tab PO Q6H PRN PRN Pain 3 days #10 TABLETS 11/09/22 [Rx Last Taken Unknown] Allergy/AdvReac Type Severity Reaction Status Date / Time No Known Allergies Allergy Verified 11/09/22 13:35 Surgical History Hx of tonsillectomy Previous back surgery Social History household members: none Smoking Status: Current every day smoker tobacco type: cigarettes alcohol intake: current alcohol intake frequency: other substance use type: marijuana ROS ROS ED Constitutional Constitutional ED: Denies chills or fever(s) Gastrointestinal Gastrointestinal: Denies abdominal pain, constipation, fecal incontinence, nausea or vomiting Genitourinary Genitourinary ED: Reports other Details: no urinary retention ; Denies abdominal discomfort or urinary incontinence Musculoskeletal Musculoskeletal: Reports as per HPI and back pain; Denies neck pain Integumentary Denies rash or wounds Neurologic Neurologic: Denies headache(s), paresthesias or weakness EXAM Physical Exam Const Vital Signs: 11/09/22 13:32 Temperature 97 F L Temperature Source Temporal Pulse Rate 117 H Respiratory Rate 22 H Blood Pressure 151/94 H Blood Pressure Mean 113 Pulse Ox 99 Oxygen Delivery Method Room Air Positive well nourished and well developed General Appearance ED: well developed and NAD HEENT Negative for trauma or tenderness Eyes PERRL and EOMs intact bilaterally Neck full ROM and supple GI normal to inspection, nondistended, normoactive bowel sounds, soft to palpation and non-tender Back/Spine normal to inspection Lumbar Spine / Lower Back: ROM limited, paraspinal muscle tenderness bilateral and straight leg raise negative bilaterally; Negative for lumbar spinal tenderness Extremity normal to inspection, full ROM and no pedal edema Neuro oriented x3 and no sensory deficits noted Sensorium / Orientation: alert Motor Exam: strength 5/5 throughout and clonus absent Deep Tendon Reflexes: Rt Patellar (L4): 2+, Lt Patellar (L4): 2+, Rt Ankle (S1): 2+ and Lt Ankle (S1): 2+ Deep Tendon Reflexes Back: Rt Patellar (L4): 2+, Lt Patellar (L4): 2+, Rt Ankle (S1): 2+ and Lt Ankle (S1): 2+ Plantar Reflex: Downgoing: bilateral Psych mental status grossly normal and thought process normal Skin no rashes or lesions noted and no wounds MDM MDM MDM Narrative Medical decision making narrative: Patient is tender above the SI joints, bilaterally, about the area of the pelvic brim. Therefore less likely to be SI joint dysfunction and more likely myofascial strain. Treated with medications here given a short-term prescription, OARRS report checked. Discharge Plan Triage Chief Complaint: Back ED Provider: Gerson Perez Dx/Rx/DC Orders Clinical Impression: Acute lumbar myofascial strain Instructions: ED Back Sprain/Strain Prescriptions: New cyclobenzaprine [cyclobenzaprine] 10 mg tablet 10 mg PO TID PRN (Reason: Muscle Spasm) Qty: 20 0RF hydrocodone-acetaminophen [hydrocodone-acetaminophen] 5-325 mg tablet 1 tab PO Q6H PRN PRN (Reason: Pain) 3 Days Qty: 10 0RF Primary Care Provider: Josafat Davis Referrals: Josafat Davis DO [Primary Care Provider] - As Needed Disposition Disposition: Home, Self Care
[2022-11-09] MEDS: Orphenadrine 60 MG/2 ML Ampul IM (15:04)
[2022-11-09] MEDS: Morphine 4 MG/ML Syringe IM (15:06)
[2022-11-09] MEDS: Ketorolac 60 MG/2 ML Vial IM (15:06)
== END 2022-11-09 15:33 | disposition home or self-care (01) ==
LOC: ED 15:17
PROVIDERS: Emergency Provider Emergency Medicine; PCP Family Medicine; Visit Provider Emergency Medicine
DX: S39.012A Strain of muscle, fascia and tendon of lower back, initial encounter (principal); F12.90 Cannabis use, unspecified, uncomplicated; F17.210 Nicotine dependence, cigarettes, uncomplicated; X58.XXXA Exposure to other specified factors, initial encounter
CPT/HCPCS: 96372; 99282

== ENCOUNTER 2023-03-09 11:07 | Emergency (ER) | payer BC, MEDICAID, SELFPAY ==
[2023-03-09 11:08] VITALS: BP 123/95; PULSE 125; RESP 18; TEMP 36; O2SAT 100; BMI 23.3
--- NOTE | 2023-03-09 13:01 | ED.VIS.BACK ---
HPI History of Present Illness Chief Complaint: Back Narrative Narrative: 42-year-old male presenting with back pain. He states is acute in onset. Its mostly on the right lower lumbar's paraspinal musculature. It radiates into the right gluteal region. Patient states he was helping his friend lift the couch and he was unaware that the couch had an electric reclining function and it shifted causing his back to hurt. Patient denies any direct trauma. Has history of laminectomy in the past. No saddle anesthesia, paresthesia. No loss of bladder or bowel control. PFSH PFS Medical History ADHD Cervical radiculopathy Sciatica Home Medications cyclobenzaprine 10 mg tablet 10 mg PO TID PRN Muscle Spasm #20 TABLETS 11/09/22 [Rx Last Taken Unknown] hydrocodone-acetaminophen 5-325mg 5mg-325mg 1 tab PO Q6H PRN PRN Pain 3 days #10 TABLETS 11/09/22 [Rx Last Taken Unknown] cyclobenzaprine 10 mg tablet 10 mg PO TID PRN Muscle Spasm #20 TABLETS 03/09/23 [Rx Last Taken Unknown] hydrocodone-acetaminophen 5-325mg 5mg-325mg 1 tab PO Q6H PRN PRN Pain 3 days #10 TABLETS 03/09/23 [Rx Last Taken Unknown] Allergy/AdvReac Type Severity Reaction Status Date / Time No Known Allergies Allergy Verified 03/09/23 11:08 Surgical History Hx of tonsillectomy Previous back surgery Social History household members: none Smoking Status: Current every day smoker tobacco type: cigarettes alcohol intake: current alcohol intake frequency: other substance use type: marijuana ROS ROS ED Constitutional Constitutional ED: Denies chills, fever(s) or sweats Eyes Eyes: Denies blurry vision or change in vision ENT ENT ED: Denies ear pain or sore throat Cardiovascular Cardiovascular: Denies chest pain, palpitations or racing heartbeat Respiratory/Chest Respiratory/Chest: Denies cough, dyspnea or sputum Gastrointestinal Gastrointestinal: Denies abdominal pain, constipation, diarrhea, nausea or vomiting Genitourinary Genitourinary ED: Denies dysuria, hematuria or urinary frequency Musculoskeletal Musculoskeletal: Reports back pain; Denies arthralgias, myalgias or neck pain Integumentary Denies abscess, Abrasions or rash Neurologic Neurologic: Denies headache(s), paresthesias or weakness Psychiatric Psychiatric: Denies anxiety, depression, suicidal ideation or suicidal thoughts Endocrine Endocrinology: Denies polydipsia or polyuria EXAM Physical Exam Const Vital Signs: 03/09/23 11:08 Temperature 96.8 F L Temperature Source Temporal Pulse Rate 125 H Respiratory Rate 18 Blood Pressure 123/95 H Blood Pressure Mean 104 Pulse Ox 100 Oxygen Delivery Method Room Air Positive well nourished HEENT Reports moist mucous membranes Eyes PERRL and EOMs intact bilaterally Cardio regular rate and regular rhythm Back/Spine Back/Spine Narrative: Right lumbar paraspinal muscular tenderness. No midline spinal deformity or step-off. No rashes, ecchymosis. Extremity normal to inspection Neuro oriented x3 and no sensory deficits noted Sensorium / Orientation: alert Motor Exam: strength 5/5 throughout Psych mental status grossly normal Skin no rashes or lesions noted MDM MDM MDM Narrative Medical decision making narrative: Patient presenting back pain. Most likely this is lumbar strain. He hurt himself lifting a couch and it did not hurt right away but has progressively gotten worse. No believe needs any imaging. He is treated with prednisone as he states has helped in the past. Is also given Toradol and Norflex. Will reevaluate. On reevaluation patient still having pain so he is given IM morphine. This did control his pain on reevaluation he is ready to be discharged home. Is given a combination of cyclobenzaprine, [place] for home. Is also on prednisone. Return precaution discussed. Impression: 1. Lumbar strain Lab Data Attestation: I reviewed the patient's lab results. Discharge Plan Triage Chief Complaint: Back ED Provider: Emmett Cabrera Dx/Rx/DC Orders Instructions: ED Back Spasm, No Trauma Prescriptions: New hydrocodone-acetaminophen 5-325 mg tablet 1 tab PO Q6H PRN PRN (Reason: Pain) 3 Days Qty: 10 0RF cyclobenzaprine 10 mg tablet 10 mg PO TID PRN (Reason: Muscle Spasm) Qty: 20 0RF No Action cyclobenzaprine [cyclobenzaprine] 10 mg tablet 10 mg PO TID PRN (Reason: Muscle Spasm) Qty: 20 0RF hydrocodone-acetaminophen [hydrocodone-acetaminophen] 5-325 mg tablet 1 tab PO Q6H PRN PRN (Reason: Pain) 3 Days Qty: 10 0RF Primary Care Provider: Josafat Davis Referrals: Josafat Davis DO [Primary Care Provider] - Disposition Disposition: Home, Self Care Discharge Date/Time: 03/09/23 14:47
[2023-03-09] MEDS: predniSONE 20 MG Tablet 60 MG PO (13:15)
[2023-03-09] MEDS: Orphenadrine 60 MG/2 ML Ampul IM (13:17)
[2023-03-09] MEDS: Ketorolac 15 MG/ML Vial IM (13:17)
[2023-03-09] MEDS: Morphine 4 MG/ML Syringe IM (14:06)
== END 2023-03-09 14:47 | disposition home or self-care (01) ==
PROVIDERS: Emergency Provider Student in an Organized Health Care Education/Training Program; PCP Family Medicine; Referring Provider Student in an Organized Health Care Education/Training Program; Visit Provider Student in an Organized Health Care Education/Training Program
DX: S39.012A Strain of muscle, fascia and tendon of lower back, initial encounter (principal); X50.0XXA Overexertion from strenuous movement or load, initial encounter; Y93.89 Activity, other specified; F17.210 Nicotine dependence, cigarettes, uncomplicated
CPT/HCPCS: 96372; 99282

== ENCOUNTER 2023-04-10 16:35 | Emergency (ER) | payer BC, MEDICAID, SELFPAY ==
[2023-04-10 16:36] VITALS: BP 152/100; PULSE 95; RESP 26; TEMP 36.7; O2SAT 99; BMI 25.9
--- NOTE | 2023-04-10 16:46 | ED.VIS.BACK ---
HPI History of Present Illness Chief Complaint: Back Informant: patient Onset/Context/Timing Onset: Yesterday Context: Gradual Onset Injury: - (Stretching) Timing: Continuous Quality: Sharp Location: Lumbar, Buttock and Left Leg Worsened by: improves with Nothing Relieved by: Nothing Associated Symptoms Associated Symptoms: Tingling and Radiation to Left Leg; Negative for Numbness, Radiation to Right Leg, Fever, Abdominal Pain, Dysuria, Unable to Ambulate, Unable to Transfer, Urinary Retention, Urinary Incontinence, Constipation or Fecal Incontinence Narrative Narrative: Patient presents with back pain that began yesterday. Patient states he felt some pain in his low back and left hip. Patient states the pain has since radiated down his left leg to the lateral aspect of his left ankle. Patient states he was doing some stretching exercises when the pain began. Patient describes the seen as sharp. Patient states that has been constant. Patient states nothing makes it better and nothing makes it worse. Patient admits to some tingling in his left hip area. Patient denies any bowel or bladder changes. Patient denies any saddle anesthesia. [facility] Medical History ADHD Cervical radiculopathy Sciatica Home Medications cyclobenzaprine 10 mg tablet 10 mg PO QHS PRN PRN Muscle Spasm #10 TABLETS 04/10/23 [Rx Last Taken Unknown] hydrocodone-acetaminophen 5-325mg 5mg-325mg 1 tab PO Q6H PRN PRN Pain 3 days #10 TABLETS 04/10/23 [Rx Last Taken Unknown] naproxen 500 mg tablet 500 mg PO BID PRN #20 tabs 04/10/23 [Rx Last Taken Unknown] Allergy/AdvReac Type Severity Reaction Status Date / Time No Known Allergies Allergy Verified 04/10/23 16:38 Surgical History Hx of tonsillectomy Previous back surgery Social History household members: none Smoking Status: Current every day smoker tobacco type: cigarettes alcohol intake: current alcohol intake frequency: other substance use type: marijuana ROS ROS ED Constitutional Constitutional ED: Denies chills or fever(s) Eyes Eyes: Denies blurry vision or change in vision ENT ENT ED: Denies rhinorrhea or sore throat Cardiovascular Cardiovascular: Denies chest pain or palpitations Respiratory/Chest Respiratory/Chest: Denies cough or dyspnea Gastrointestinal Gastrointestinal: Denies nausea or vomiting Genitourinary Genitourinary ED: Denies dysuria or hematuria Musculoskeletal Musculoskeletal: Reports back pain; Denies neck pain Integumentary Denies abscess or rash Neurologic Neurologic: Denies headache(s) or weakness Allergic/Immunologic Allergic/Immunologic ED: Denies mouth swelling or urticaria EXAM Physical Exam Const Vital Signs: 04/10/23 16:36 Temperature 98.1 F Temperature Source Oral Pulse Rate 95 Respiratory Rate 26 H Blood Pressure 152/100 H Blood Pressure Mean 117 Pulse Ox 99 Oxygen Delivery Method Room Air Positive well nourished and well developed General Appearance ED: well developed and NAD HEENT Reports moist mucous membranes Neck supple and no JVD Back/Spine Back/Spine Narrative: There is tenderness over the lumbar spine and left lumbar paraspinal muscles. There is tenderness over the sciatic notch. Range of motion was limited in all motions of the lumbar spine secondary to pain. Strength is 5/5 bilaterally in the lower extremities. There are no sensory deficits noted. Deep tendon reflexes are 2/4 bilaterally in the lower extremities. Lumbar Spine / Lower Back: ROM limited and straight leg raise negative bilaterally Neuro oriented x3 and no sensory deficits noted Sensorium / Orientation: alert Motor Exam: strength 5/5 throughout Deep Tendon Reflexes: Rt Patellar (L4): 2+, Lt Patellar (L4): 2+, Rt Ankle (S1): 2+ and Lt Ankle (S1): 2+ Deep Tendon Reflexes Back: Rt Patellar (L4): 2+, Lt Patellar (L4): 2+, Rt Ankle (S1): 2+ and Lt Ankle (S1): 2+ Psych mental status grossly normal MDM MDM MDM Narrative Medical decision making narrative: Patient was advised that this is most likely a muscular strain or sciatica. Patient was advised that x-rays are not indicated or helpful at this time. Patient agrees with this. Patient was given injections of morphine, Toradol, and Norflex. Treatment and Re-Evaluation Narrative: Patient is feeling better on reevaluation. Patient was given a prescription for a short course of [place]. Patient was also given prescriptions for Flexeril and Naprosyn. Patient was instructed use ice to the area. Patient was instructed to follow-up with his primary care physician in 5 to 7 days. Patient understood and was agreeable with the plan. All questions were answered. Discharge Plan Triage Chief Complaint: Back ED Provider: Raghu Sadler Dx/Rx/DC Orders Clinical Impression: Sciatica of left side, Acute low back pain Instructions: ED Back Sprain/Strain, ED Sciatica Prescriptions: New hydrocodone-acetaminophen [hydrocodone-acetaminophen] 5-325 mg tablet 1 tab PO Q6H PRN PRN (Reason: Pain) 3 Days Qty: 10 0RF cyclobenzaprine [cyclobenzaprine] 10 mg tablet 10 mg PO QHS PRN PRN (Reason: Muscle Spasm) Qty: 10 0RF naproxen 500 mg tablet 500 mg PO BID PRN Qty: 20 0RF Primary Care Provider: Josafat Davis Referrals: Josafat Davis DO [Primary Care Provider] - 3-5 Days Disposition Disposition: Home, Self Care
--- OUTSIDE RECORDS SUMMARY | 2023-04-10 16:56 | XMS RPT_ITS | CCD ---
Author Name Unknown Address [address] [place] [address] Organization [facility] Care Team Providers Care Roller Varnisher Name Role Phone DEGIDIO, GAVIN R Unavailable Unavailable TOM STOREY Unavailable Unavailable DEGIDIO, GAVIN R Unavailable Unavailable SHAMIR PACK Unavailable Unavailable DEGIDIO, GAVIN R Unavailable Unavailable KYRIROLANESCHILO Unavailable Unavailable DEGIDIO, GAVIN R Unavailable Unavailable DEGIDIO, GAVIN R Unavailable Unavailable DEGIDIO, GAVIN R Unavailable Unavailable DEGIDIO, GAVIN R Unavailable Unavailable DEGIDIO, GAVIN R Unavailable Unavailable TOM WESLEY Unavailable Unavailable DEGIDIO, GAVIN R Unavailable Unavailable CRISTIAN, SHA López Unavailable Unavailable DEGIDIO, GAVIN R Unavailable Unavailable TUAN ALBARADO Unavailable Unavailable DEGIDIO, GAVIN R Unavailable Unavailable CRISTIAN, SHA López Unavailable Unavailable DEGIDIO, GAVIN R Unavailable Unavailable CRISTIAN, SHA López Unavailable Unavailable CRISTIAN, SHA López Unavailable Unavailable DEGIDIO, GAVIN R Unavailable Unavailable CRISTIAN, SHA López Unavailable Unavailable DEGIDIO, GAVIN R Unavailable Unavailable Cristian, Dr. Sha Rice Attending Michel Foster, Dr. Sha Rice Attending Michel alarcon Problems Active Problems Problem Classification Problem Date Documented Date Episodic/Chronic Immunizations and screening for infectious disease (1 source) Contact with and (suspected) exposure to infections with a predominantly sexual mode of transmission; Translations: [Contact with and (suspected) exposure to infections with a predominantly sexual mode of transmission] Onset: 09-16-2017 Episodic Other acquired deformities (1 source) Contracture, right elbow; Translations: [Contracture, right elbow] Onset: 05-25-2017 Chronic Other nervous system disorders (1 source) Other chronic pain; Translations: [Other chronic pain] Onset: 09-16-2017 Chronic Spondylosis; intervertebral disc disorders; other back problems (1 source) Other cervical disc degeneration, unspecified cervical region; Translations: [Other cervical disc degeneration, unsp cervical region] Onset: 01-04-2018 Chronic Spondylosis; intervertebral disc disorders; other back problems (6 sources) Cervicalgia; Translations: [Radiculopathy, cervical region] Onset: 12-03-2016 Episodic Unclassified (1 source) Nicotine dependence, unspecified, uncomplicated / F17.200(ICD-9) Onset: 05-27-2017 Unclassified (1 source) Radiculopathy, cervical region / M54.12(ICD-9) Onset: 02-15-2018 Unclassified (2 sources) Cervicalgia / M54.2(ICD-9) Onset: 02-15-2018 Unclassified (2 sources) Injury of brachial plexus, initial encounter / S14.3XXA(ICD-9) Onset: 01-26-2018 Unclassified (1 source) Pain in unspecified shoulder / M25.519(ICD-9) Onset: 01-26-2018 Unclassified (2 sources) Other cervical disc degeneration, unsp cervical region / M50.30(ICD-9) Onset: 01-04-2018 Unclassified (2 sources) Strain of muscle, fascia and tendon at neck level, init / S16.1XXA(ICD-9) Onset: 10-19-2017 Unclassified (1 source) Pain in left hip / M25.552(ICD-9) Onset: 05-27-2017 Unclassified (1 source) Lumbago with sciatica, left side / M54.42(ICD-9) Onset: 05-27-2017 Unclassified (1 source) Other chronic pain / G89.29(ICD-9) Onset: 05-27-2017 Unclassified (1 source) Anxiety disorder, unspecified / F41.9(ICD-9) Onset: 05-27-2017 Unclassified (1 source) Other and unspecified ovrexrtn or strnous move/pstr, init / X50.9XXA(ICD-9) Onset: 05-27-2017 Unclassified (1 source) Activity, rough housing and horseplay / Y93.83(ICD-9) Onset: 05-27-2017 Unclassified (1 source) Low back pain / M54.5(ICD-9) Onset: 05-27-2017 Unclassified (1 source) Pain in left leg / M79.605(ICD-9) Onset: 05-27-2017 Unclassified (1 source) Myalgia / M79.1(ICD-9) Onset: 05-27-2017 Past or Other Problems Problem Classification Problem Date Documented Da te Episodic/Chronic Other connective tissue disease (1 source) Pain in left lower limb; Translations: [Pain in left leg] Onset: 05-27-2017 Episodic Other connective tissue disease (1 source) Myalgia; Translations: [Myalgia] Onset: 05-27-2017 Episodic Sprains and strains (2 sources) Strain of muscle, fascia and tendon of lower back, subsequent encounter; Translations: [Strain of muscle, fascia and tendon of lower back, initial encounter] Onset: 12-22-2016 Episodic Superficial injury; contusion (1 source) Contusion of right lower leg, initial encounter; Translations: [Contusion of right lower leg, initial encounter] Onset: 05-25-2017 Episodic Unclassified (1 source) Pain in left hip; Translations: [Pain in left hip] Onset: 05-27-2017 Unclassified (1 source) Injury of brachial plexus, initial encounter; Translations: [Injury of brachial plexus, initial encounter] Onset: 01-26-2018 Unclassified (1 source) Strain of muscle, fascia and tendon at neck level, init; Translations: [Strain of muscle, fascia and tendon at neck level, init] Onset: 10-19-2017 Results Test Name Value Interpretation Reference Range Facil ity Encounters Encounter Date Encounter Type Care Provider Facility Start: 12-04-[address] Sha Foster Facility:[id number] Start: 03-17-[address] Sha Foster Facility:[id number] Start: 02-15-2018 Patient encounter procedure SHA FOSTER Facility:8 Start: 01-26-2018 Patient encounter procedure SHA FOSTER Facility:[facility] Start: 01-26-2018 Patient encounter procedure Facility:[id number] Start: 01-04-2018 Patient encounter procedure SHA FOSTER Facility:8 Start: 11-19-2017 End: 11-19-2017 Emergency department patient visit [facility] Start: 11-01-2017 End: 11-01-2017 Emergency department patient visit GAVIN R [facility] Start: 10-19-2017 Patient encounter procedure TUAN ALBARADO Facility:[id number] Start: 09-16-2017 End: 09-16-2017 Emergency department patient visit GAVIN R [facility] Start: 06-25-2017 Patient encounter procedure SHA MCNEILWITZ Facility:[id number] Start: 05-27-2017 End: 05-27-2017 Emergency department patient visit TOM MARYJANE Facility:[facility] Start: 05-26-2017 Patient encounter procedure Facility:[id number] Start: 05-25-2017 End: 05-25-2017 Emergency department patient visit GAVIN R [facility] Start: 05-11-2017 End: 05-11-2017 Emergency department patient visit [facility] Start: 12-30-2016 End: 12-30-2016 Emergency department patient visit [facility] Start: 12-22-2016 End: 12-22-2016 Emergency department patient visit [facility] Start: 12-03-2016 End: 12-03-2016 Emergency department patient visit [facility] Procedures Date Procedure Procedure Detail Performing Clinician Start: 09-16-2017 C.TRACHOMATIS N.GONO RRHOEAE DNA, URINE GAVIN DEGIDIO Start: 05-25-2017 Radex elbow complete minimum 3 views GAVIN DEGIDIO Start: 05-25-2017 Radex spine lumbosac ral minimum 4 views GAVIN DEGIDIO Start: 05-25-2017 Radiologic examinati on femur minimum 2 views GAVIN DEGIDIO Start: 12-22-2016 AMB REFERRAL TO PAIN CLINIC GAVIN DEGIDIO Start: 12-22-2016 Radex spine lumbosac ral minimum 4 views GAVIN DEGIDIO Payers Date Payer Category Payer Unknown [id number] 1980 Unknown [id number] 2.16. [id number] 1980 Unknown [id number] 2.16. [id number] 1980 Unknown [id number] 2.16.8 [id number] 1981 Unknown [id number] 2.16.8 [id number] 1981 Unknown [id number] 2.16.8 [id number] 1981 Unknown [id number] 2.16.8 [id number] 1981 Unknown [id number] 2.16.8 [id number] 1981 Unknown [id number] 2.16.8 [id number] 1981 Unknown [id number] 2.16.8 [id number] 1981 Unknown [id number] 2.16.8 [id number] Summary Purpose Family History No Family History Records FoundNo Family History Records FoundNo Family History Records FoundNo Family History Records FoundNo Family History Records Found Advance Directives No Advanced Directives Records FoundNo Advanced Directives Records FoundNo Advanced Directives Records FoundNo Advanced Directives Records FoundNo Advanced Directives Records Found Additional Source Comments (unrecognized sect ion and content) No Status Records FoundNo Status Records FoundNo Status Records FoundNo Status Records FoundNo Status Records Found INFORMATION SOURCE (unrecogn ized section and content) DATE CREATED AUTHOR AUTHOR'S ORGANIZ ATION 11/29/2017 [facility] DATE CREATED AUTHOR AUTHOR'S ORGANIZ ATION 02/21/2018 [facility] DATE CREATED AUTHOR AUTHOR'S ORGANIZ ATION 03/02/2018 [facility] DATE CREATED AUTHOR AUTHOR'S ORGANIZ ATION 12/06/2022 [facility] FOR RECORDS PERTAINING TO PATIENTS WHO ARE OR HAVE BEEN ENROLLED IN A CHEMICAL DEPENDENCY/SUBSTANCEABUSE PROGRAM, SOME INFORMATION MAY BE OMITTED. This clinical summary was aggregated from multiple sources. Caution should be exercised in using it in the provision of clinical care. This summary normalizes information from multiple sources, and as a consequence, information in this document may materially change the coding, format and clinical context of patient data. In addition, data may be omitted in some cases. CLINICAL DECISIONS SHOULD BE BASED ON THE PRIMARY CLINICAL RECORDS. [employer] [facility]. provides no warranty or guarantee of the accuracy or completeness of information in this document.
[2023-04-10] MEDS: Ketorolac 60 MG/2 ML Vial IM (17:15)
[2023-04-10] MEDS: Orphenadrine 60 MG/2 ML Ampul IM (17:17)
[2023-04-10] MEDS: Morphine 4 MG/ML Syringe IM (17:18)
[2023-04-10 18:44] VITALS: PULSE 79; RESP 16; O2SAT 98
== END 2023-04-10 18:45 | disposition home or self-care (01) ==
PROVIDERS: Emergency Provider Emergency Medicine; PCP Family Medicine; Visit Provider Emergency Medicine
DX: M54.42 Lumbago with sciatica, left side (principal); F12.90 Cannabis use, unspecified, uncomplicated; F17.210 Nicotine dependence, cigarettes, uncomplicated
CPT/HCPCS: 96372; 99282

== ENCOUNTER 2023-05-18 14:07 | Emergency (ER) | payer MEDICAID, SELFPAY ==
[2023-05-18 14:08] VITALS: BP 137/104; PULSE 89; RESP 22; TEMP 36.5; O2SAT 99; BMI 25.4
--- NOTE | 2023-05-18 15:28 | ED.VIS.BACK ---
HPI History of Present Illness Chief Complaint: Back Informant: patient Narrative Narrative: 42-year-old male with a history of chronic sciatica presenting to the emergency room with low back pain. Patient states he underwent a laminectomy in 2016 at [facility]. He states that recently he has been experiencing increased low back pain particular on the right and now a new on the left. He notes some radicular symptoms but no muscle strength or sensory losses. No bowel or bladder dysfunctions. No fevers. Denies IV drug use or underlying immunosuppression. He states that a few days ago he had an MRI at [facility] and is supposed to see his surgeon at [facility] on 21 May 2023. His surgeon's name is Dr. Brijesh Vargas. He states that in his consultation with Dr. Vargas I do not prescribe pain medication until surgery is scheduled. He states that he has been taking Tylenol and [id number] medications to try to help push through the pain but last night he only got about 1 hour of sleep due to pain. Pain is exacerbated by movements. [facility] Medical History ADHD Cervical radiculopathy Sciatica Home Medications cyclobenzaprine 10 mg tablet 10 mg PO QHS PRN PRN Muscle Spasm #10 TABLETS 04/10/23 [Rx Last Taken Unknown] hydrocodone-acetaminophen 5-325mg 5mg-325mg 1 tab PO Q6H PRN PRN Pain 3 days #10 TABLETS 04/10/23 [Rx Last Taken Unknown] naproxen 500 mg tablet 500 mg PO BID PRN #20 tabs 04/10/23 [Rx Last Taken Unknown] hydrocodone-acetaminophen 5-325mg 5mg-325mg 1 tab PO Q6H PRN PRN Pain 3 days #12 TABLETS 05/18/23 [Rx Last Taken Unknown] naproxen 500 mg tablet (Naprosyn) 500 mg PO BID PRN pain #20 tabs 05/18/23 [Rx Last Taken Unknown] Allergy/AdvReac Type Severity Reaction Status Date / Time No Known Allergies Allergy Verified 05/18/23 14:08 Surgical History Hx of tonsillectomy Previous back surgery Social History household members: none Smoking Status: Current every day smoker tobacco type: cigarettes alcohol intake: current alcohol intake frequency: other substance use type: marijuana ROS ROS ED Constitutional Constitutional ED: Denies chills, fever(s) or weight loss Eyes Eyes: Denies change in vision or diplopia ENT ENT ED: Denies ear pain, rhinorrhea or sore throat Cardiovascular Cardiovascular: Denies chest pain, orthopnea, palpitations or racing heartbeat Respiratory/Chest Respiratory/Chest: Denies cough, dyspnea or orthopnea Gastrointestinal Gastrointestinal: Denies abdominal pain, diarrhea, nausea or vomiting Genitourinary Genitourinary ED: Denies dysuria, hematuria or urinary frequency Musculoskeletal Musculoskeletal: Reports back pain; Denies arthralgias, myalgias or neck pain Integumentary Denies abscess or rash Neurologic Neurologic: Denies headache(s), paresthesias or weakness Psychiatric Psychiatric: Denies anxiety, depression, suicidal ideation or suicidal thoughts Endocrine Endocrinology: Denies polydipsia, polyphagia or polyuria Allergic/Immunologic Allergic/Immunologic ED: Denies mouth swelling, tongue swelling or urticaria EXAM Physical Exam Const Vital Signs: 05/18/23 14:08 Temperature 97.7 F L Temperature Source Temporal Pulse Rate 89 Respiratory Rate 22 H Blood Pressure 137/104 H Blood Pressure Mean 115 Pulse Ox 99 Oxygen Delivery Method Room Air Positive well nourished and well developed General Appearance ED: well developed HEENT Reports normocephalic, head/scalp atraumatic and moist mucous membranes Eyes PERRL and EOMs intact bilaterally Neck no lymphadenopathy, supple and no JVD Resp normal respiratory effort and clear to auscultation bilaterally Cardio regular rate, regular rhythm and no murmurs GI normal to inspection, nondistended, normoactive bowel sounds and non-tender Palpation: soft Back/Spine no CVA tenderness Back/Spine Narrative: Patient reports painful range of motion in the left and right L5/SI joint region. No rash or tissue texture changes to suggest underlying infection. Lumbar Spine / Lower Back: ROM limited Extremity normal to inspection General Extremety ED: Negative for edema General Extremity: Negative for edema Neuro oriented x3 and CN's II-XII intact bilaterally Neuro Narrative: Normal sensory exam of the lower extremity Sensorium / Orientation: alert Motor Exam: strength 5/5 throughout Deep Tendon Reflexes: Rt Patellar (L4): 2+, Lt Patellar (L4): 2+, Rt Ankle (S1): 2+ and Lt Ankle (S1): 2+ Deep Tendon Reflexes Back: Rt Patellar (L4): 2+, Lt Patellar (L4): 2+, Rt Ankle (S1): 2+ and Lt Ankle (S1): 2+ Psych mental status grossly normal Mood & Affect: Negative for depressed or tearful Skin no rashes or lesions noted and no wounds MDM MDM MDM Narrative Medical decision making narrative: I reviewed the patient's OARRS report. He has not filled any narcotic prescriptions since March. Unfortunately as his care is in the [facility] and not associated with this hospital system I do not have ready access to his results. Using some online resources I see that he had lumbar x-rays 04 May that showed mild degenerative changes. I do not see an MRI report. The patient does not appear to have acute neurologic deficits. He is not having any urinary retention or fecal incontinence. Patient has a follow-up appointment in 3 days. Rx short course of [place] as well as some naproxen. Discharge Plan Triage Chief Complaint: Back ED Provider: Mynor Colon Dx/Rx/DC Orders Clinical Impression: Acute exacerbation of chronic low back pain Instructions: ED Sciatica Prescriptions: New hydrocodone-acetaminophen [hydrocodone-acetaminophen] 5-325 mg tablet 1 tab PO Q6H PRN PRN (Reason: Pain) 3 Days Qty: 12 0RF naproxen [Naprosyn] 500 mg tablet 500 mg PO BID PRN (Reason: pain) Qty: 20 0RF No Action hydrocodone-acetaminophen [hydrocodone-acetaminophen] 5-325 mg tablet 1 tab PO Q6H PRN PRN (Reason: Pain) 3 Days Qty: 10 0RF cyclobenzaprine [cyclobenzaprine] 10 mg tablet 10 mg PO QHS PRN PRN (Reason: Muscle Spasm) Qty: 10 0RF naproxen 500 mg tablet 500 mg PO BID PRN Qty: 20 0RF Primary Care Provider: Josafat Davis Referrals: Josafat Davis DO [Primary Care Provider] - Activity Restrictions/Additional Instructions: Please be sure to keep your follow-up appointment with your surgeon on 21 May 2023. Disposition Disposition: Home, Self Care
[2023-05-18 15:51] VITALS: BP 136/86; PULSE 88; RESP 18; TEMP 36.8; O2SAT 99
== END 2023-05-18 15:53 | disposition home or self-care (01) ==
LOC: ED 15:39
PROVIDERS: Emergency Provider Emergency Medicine; PCP Family Medicine; Visit Provider Emergency Medicine
DX: M54.50 Low back pain, unspecified (principal); G89.29 Other chronic pain; F17.210 Nicotine dependence, cigarettes, uncomplicated; Z98.1 Arthrodesis status
CPT/HCPCS: 99282

== ENCOUNTER 2024-01-04 05:49 | Emergency (ER) | payer MEDICAID, SELFPAY ==
[2024-01-04 05:50] VITALS: PULSE 81; RESP 16; TEMP 36.9; O2SAT 96; BMI 25.4
[2024-01-04 05:58] VITALS: BP 149/91; PULSE 80; RESP 16; TEMP 36.8; O2SAT 96; BMI 25.6
[2024-01-04 06:50] VITALS: PULSE 75; RESP 16; O2SAT 98
[2024-01-04] MEDS: Ketorolac 30 MG/ML Syringe IV (06:59)
[2024-01-04 07:00] VITALS: BP 150/97; PULSE 78; RESP 18; O2SAT 95
[2024-01-04] MEDS: diazePAM 5 MG Tablet PO (07:00)
[2024-01-04] MEDS: dexAMETHasone 10 MG/ML Vial IV (07:00)
[2024-01-04 07:23] LABS: Erythrocyte Sedimentation Rate 5 mm/hr (0-20)
[2024-01-04 07:25] LABS: Absolute Lymphocyte Count 2.65 X10^3/uL (0.83-4.51); Absolute Neutrophil Count 8.9 X10^3/uL (2.0-7.7); Basophil# 0.05 X10^3/uL; Basophil% 0.4 % (0-1); Eosinophil# 0.43 X10^3/uL; Eosinophils% 3.2 % (0-5); Hematocrit 40.6 % (40-54); Hemoglobin 13.9 g/dL (13.0-16.5); Lymphocyte # 2.65 X10^3/ul (0.83-4.51); Lymphocyte % 19.6 % (19-41); Mean Corp Hgb Conc 34.2 g/dL (32-36); Mean Corpuscular Volume 93.5 fL (80-94); Mean Platelet Vol. 11.9 fl (6.2-12.0); Monocyte# 1.39 X10^3/uL; Monocyte% 10.3 % (0-10); NRBC Flagged by Analyzer 0 % (0-5); Neutrophil # 8.94 X10^3/uL (2.7-7.7); Neutrophil % 66.1 % (47-70); Platelet Count 235 K/mm3 (150-450); RBC Distribution Width CV 11.7 % (11.6-14.6); RBC Distribution Width SD 40.2 fl (35.1-43.9); Red Blood Count 4.34 M/mm3 (4.6-6.2); White Blood Count 13.5 K/mm3 (4.4-11.0)
[2024-01-04 07:37] LABS: Lactic Acid 1.2 mmol/L (0.4-1.9)
[2024-01-04 07:45] LABS: Anion Gap 4 (5-15); BUN 15 mg/dL (7-18); BUN/Creat Ratio 13.9 RATIO (10-20); CRP 7.22 mg/L (0.0-3.0); Calcium,Total 9.4 mg/dL (8.5-10.1); Chloride 99 mmol/L (98-107); Creatinine, Serum 1.08 mg/dL (0.70-1.30); EST Glomerular Filtration Rate 80 mL/min (>60); Est Glom Filt Rate - Afr Amer 96 mL/min (>60); Glucose 109 mg/dL (74-106); Magnesium 2.3 mg/dL (1.6-2.6); Potassium 3.8 mmol/L (3.5-5.1); Sodium Level 136 mmol/L (136-145)
[2024-01-04 08:00] VITALS: BP 128/78; PULSE 72; RESP 14; O2SAT 98
--- NOTE | 2024-01-04 08:07 | EX.ED.DYSGE1 ---
HPI History of Present Illness Chief Complaint: Back Informant: patient Narrative Narrative: Patient is a 43-year-old male with past medical history of ADHD as well as chronic back pain. He states he has been dealing with back problems for quite some time. He states that he was scheduled to have an MRI to further assess the cause of his symptoms but that his insurance denied it. He reports in August or September of this year he had a CT scan of his cervical thoracic and lumbar spine showing degeneration but no obvious nerve impingement. Patient states that there is been no recent trauma or increased physical activity. He states he has been taking his prescribed medications as directed. However despite doing so he has been having persistent low back pain which radiates down into his legs. He denies any loss of bowel or bladder control or IV drug use. He denies any recent surgical procedures such as injections or lumbar fusion. He states that he does not feel like he can function based on the persistent pain and has been having difficulty sleeping and with this presents for evaluation [facility] Medical History ADHD Cervical radiculopathy Sciatica Home Medications ?Medication ?Instructions ?Recorded ?Last Taken ?Type cyclobenzaprine 10 mg tablet 10 mg PO QHS PRN PRN Muscle Spasm 04/10/23 Unknown Rx #10 TABLETS diazepam 5 mg tablet (Valium) 5 mg PO TID PRN muscle spasm 5 01/04/24 Unknown Rx days #15 tabs gabapentin 300 mg capsule 300 mg PO BID 01/04/24 Unknown History methocarbamol 500 mg tablet 500 mg PO QPM 01/04/24 Unknown History oxycodone-acetaminophen 5 mg-325 1 tab PO Q6H PRN pain 3 days #12 01/04/24 Unknown Rx mg tablet (Percocet) tabs prednisone 20 mg tablet 40 mg (2 x 20 mg) PO DAILY 5 days 01/04/24 Unknown Rx #10 tabs sulfamethoxazole 800 1 tab PO BID 7 days #14 tabs 01/04/24 Unknown Rx mg-trimethoprim 160 mg tablet (Bactrim DS) Allergy/AdvReac Type Severity Reaction Status Date / Time No Known Allergies Allergy Verified 01/04/24 05:55 Surgical History Hx of tonsillectomy Previous back surgery Social History household members: none Smoking Status: Current every day smoker tobacco type: cigarettes alcohol intake: current alcohol intake frequency: other substance use type: marijuana ROS ROS ED Constitutional Constitutional ED: Denies chills or fever(s) Eyes Eyes: Denies blurry vision or change in vision ENT ENT ED: Denies sore throat Cardiovascular Cardiovascular: Denies chest pain Respiratory/Chest Respiratory/Chest: Denies cough or dyspnea Gastrointestinal Gastrointestinal: Denies abdominal pain, diarrhea, nausea or vomiting Genitourinary Genitourinary ED: Denies dysuria or hematuria Musculoskeletal Musculoskeletal: Reports back pain Integumentary Denies rash Neurologic Neurologic: Reports paresthesias and weakness; Denies headache(s) Hematologic/Lymphatic Hematologic/Lymphatic: Denies easy bleeding or easy bruising EXAM Physical Exam Const Vital Signs: 01/04/24 08:00 01/04/24 08:29 Temperature 97.6 F L Pulse Rate 72 78 Respiratory Rate 14 16 Blood Pressure 128/78 H 126/78 H Blood Pressure Mean 94 94 Pulse Ox 98 99 Oxygen Delivery Method Room Air Positive well nourished and well developed General Appearance ED: well developed HEENT HEENT Narrative: Normocephalic atraumatic Eyes PERRL and EOMs intact bilaterally General Eye ED: Negative for scleral icterus Neck supple Neck Narrative: No nuchal rigidity or meningeal signs Resp normal respiratory effort and clear to auscultation bilaterally Cardio regular rate and regular rhythm GI normal to inspection, nondistended, normoactive bowel sounds, non-tender, non-distended and no masses Auscultation: normoactive bowel sounds Palpation: soft Narrative: Rectal tone is normal Back/Spine Back/Spine Narrative: No bony deformity or step-off of the thoracic or lumbar spine no midline tenderness to palpation. No saddle anesthesia. Negative straight leg raise. No clonus or Babinski. Patellar reflexes are plus 1 out of 4 bilaterally Extremity Extremity Narrative: Patient has asymmetric erythema to the anterior aspect of the distal third of the right monsalve that has asymmetric warmth compared to the left concerning for developing cellulitis. No lymphangitic streaking or abscess formation noted. Quinones no bony deformities or joint effusions Neuro oriented x3, CN's II-XII intact bilaterally and no sensory deficits noted Sensorium / Orientation: alert Psych mental status grossly normal Skin Skin Narrative: Soft tissue changes of the right lower leg as documented above most consistent with cellulitis MDM MDM MDM Narrative Medical decision making narrative: Patient arrived to ER hypertensive otherwise with stable vitals. He reported worsening back pain despite taking his normal medications. He denied any recent procedures to put him at risk for osteomyelitis or discitis. He denied any IV drug use or loss of bowel or bladder control going against cauda equina or epidural abscess. Patient also has normal rectal tone going against cauda equina. He has recurrent shaking while sitting in the bed at rest of his lower extremities but with activity this resolves and he can stand with a steady gait without tremors. Based on the tremors there is concern this could be related to an acute electrolyte abnormality and therefore basic labs were obtained. Patient's white count is slightly elevated at 13.5 and his CRP is slightly elevated but under 10 which is less concerning and his ESR is normal. The fact that he denies loss of bowel bladder control or IV drug use or recent back procedures I do not feel there is need to undergo MRI as I have low concern for osteomyelitis or discitis or epidural abscess. With normal rectal tone I have low concern for cauda equina or severe nerve impingement. He does have a physical exam concerning for mild cellulitis and this could be the cause of the slight leukocytosis and elevation to his CRP. But without signs of systemic infection I do not feel the need for admission or IV antibiotics. Therefore patient was placed on symptomatic care and given Bactrim secondary to the soft tissue skin infection but as he does not have overt signs of neurovascular compromise or spinal infection there is no need for admission and he is otherwise safe for discharge. Of note chart review reveals that he did have CTs of his cervical thoracic and lumbar spine at [facility] in [place] in August or September of this year which documented diffuse degeneration without signs of infection or nervous compression History & Record Review Discussion w/independent historian: Patient Lab Data Attestation: I reviewed the patient's lab results. Labs: Laboratory Results - last 24 hr 01/04/24 07:00 WBC 13.5 H RBC 4.34 L Hgb 13.9 Hct 40.6 MCV 93.5 MCH 32.0 MCHC 34.2 RDW Std Deviation 40.2 RDW Coeff of Navid 11.7 Plt Count 235 MPV 11.9 Immature Gran % (Auto) 0.400 Neut % (Auto) 66.1 Lymph % (Auto) 19.6 Haakon % (Auto) 10.3 H Eos % (Auto) 3.2 Baso % (Auto) 0.4 Absolute Neuts (auto) 8.9 H Absolute Lymphs (auto) 2.65 Nucleated RBC % 0 ESR 5 Sodium 136 Potassium 3.8 Chloride 99 Carbon Dioxide 32.0 Anion Gap 4 L BUN 15 Creatinine 1.08 Estim Creat Clear Calc 100.70 Est GFR (MDRD) Af Amer 96 Est GFR (MDRD) Non-Af 80 BUN/Creatinine Ratio 13.9 Glucose 109 H Lactic Acid 1.2 Calcium 9.4 Magnesium 2.3 C-React Prot Ext Range 7.22 H Discharge Plan Triage Chief Complaint: Back ED Provider: Demetrius Andrew Dx/Rx/DC Orders Clinical Impression: Acute low back pain, Cellulitis of right anterior lower leg, ADHD Instructions: ED Back Pain (Acute or Chronic), ED Cellulitis Prescriptions: New oxycodone-acetaminophen [Percocet] 5-325 mg tablet 1 tab PO Q6H PRN (Reason: pain) 3 Days Qty: 12 0RF diazepam [Valium] 5 mg tablet 5 mg PO TID PRN (Reason: muscle spasm) 5 Days Qty: 15 0RF prednisone 20 mg tablet 40 mg PO DAILY 5 Days Qty: 10 0RF sulfamethoxazole-trimethoprim [Bactrim DS] 800-160 mg tablet 1 tab PO BID 7 Days Qty: 14 0RF No Action cyclobenzaprine [cyclobenzaprine] 10 mg tablet 10 mg PO QHS PRN PRN (Reason: Muscle Spasm) Qty: 10 0RF methocarbamol 500 mg tablet 500 mg PO QPM gabapentin 300 mg capsule 300 mg PO BID Primary Care Provider: Josafat Davis Referrals: Josafat Davis DO [Primary Care Provider] - Print Language: Hungarian Disposition Disposition: Home, Self Care Discharge Date/Time: 01/04/24 08:29
[2024-01-04 08:29] VITALS: BP 126/78; PULSE 78; RESP 16; TEMP 36.4; O2SAT 99
== END 2024-01-04 08:29 | disposition home or self-care (01) ==
PROVIDERS: Emergency Provider Emergency Medicine; PCP Family Medicine; Visit Provider Emergency Medicine
DX: M54.50 Low back pain, unspecified (principal); L03.115 Cellulitis of right lower limb; F90.9 Attention-deficit hyperactivity disorder, unspecified type; F17.210 Nicotine dependence, cigarettes, uncomplicated
CPT/HCPCS: 80048; 83605; 83735; 85025; 85652; 86140; 96374; 96375; 99283

== ENCOUNTER 2024-01-12 09:01 | Emergency (ER) | payer MEDICAID, SELFPAY ==
[2024-01-12 09:01] VITALS: BP 153/100; PULSE 72; RESP 16; TEMP 37.2; O2SAT 98; BMI 25.9
--- NOTE | 2024-01-12 09:28 | EDS_ITS ---
HPI History of Present Illness HPI Narrative: Patient presents with pain in his right groin that began yesterday. Patient states he lost his balance yesterday and fell forward. Patient states he felt slightly cool in his right groin. Patient states his pain is worse with walking, standing, and movement. Patient describes it as tightness. Patient also WITH pain in his leg back. Patient states he is trying to get an MRI and is having difficulty getting insurance approval. Patient admits to some decreased sensation over the lateral aspect of his thighs bilaterally. He is patient denies any bowel or bladder changes. Patient denies any saddle anesthesia. Chief Complaint: Lower Extremity Injury Informant: patient Occured/Mechanism Mechanism/Context: Yes fall Onset/Context/Timing Onset: Yesterday Timing: Continuous Quality of Pain: - (Tightness) Location: Medial aspect of the right thigh Worsened by: Walking, standing, movement Relieved by: Nothing Associated Symptoms Associated Symptoms: Positive for Parasthesia; Negative for Weakness or Loss of Funtion [facility] Medical History ADHD Sciatica Cervical radiculopathy Home Medications ?Medication ?Instructions ?Recorded ?Last Taken ?Type cyclobenzaprine 10 mg tablet 10 mg PO QHS PRN PRN Muscle Spasm 04/10/23 Unknown Rx #10 TABLETS diazepam 5 mg tablet (Valium) 5 mg PO TID PRN muscle spasm 5 01/04/24 Unknown Rx days #15 tabs gabapentin 300 mg capsule 300 mg PO BID 01/04/24 Unknown History methocarbamol 500 mg tablet 500 mg PO QPM 01/04/24 Unknown History oxycodone-acetaminophen 5 mg-325 1 tab PO Q6H PRN pain 3 days #12 01/04/24 Unknown Rx mg tablet (Percocet) tabs prednisone 20 mg tablet 40 mg (2 x 20 mg) PO DAILY 5 days 01/04/24 Unknown Rx #10 tabs sulfamethoxazole 800 1 tab PO BID 7 days #14 tabs 01/04/24 Unknown Rx mg-trimethoprim 160 mg tablet (Bactrim DS) naproxen 500 mg tablet (Naprosyn) 500 mg PO BID PRN pain #20 tabs 01/12/24 Unknown Rx Allergy/AdvReac Type Severity Reaction Status Date / Time No Known Allergies Allergy Verified 01/12/24 09:01 Surgical History Hx of tonsillectomy Previous back surgery Social History household members: none Smoking Status: Current every day smoker tobacco type: cigarettes alcohol intake: current alcohol intake frequency: other substance use type: marijuana ROS ROS ED Constitutional Constitutional ED: Denies chills or fever(s) Eyes Eyes: Denies blurry vision or change in vision ENT ENT ED: Denies rhinorrhea or sore throat Cardiovascular Cardiovascular: Denies chest pain or palpitations Respiratory/Chest Respiratory/Chest: Denies cough or dyspnea Gastrointestinal Gastrointestinal: Denies nausea or vomiting Genitourinary Genitourinary ED: Reports urinary urgency; Denies dysuria, hematuria or urinary incontinence Musculoskeletal Musculoskeletal: Reports back pain; Denies neck pain Integumentary Denies abscess or rash Neurologic Neurologic: Denies headache(s) or weakness Allergic/Immunologic Allergic/Immunologic ED: Denies mouth swelling or urticaria EXAM Physical Exam Const Vital Signs: 01/12/24 09:01 Temperature 99 F Temperature Source Oral Pulse Rate 72 Respiratory Rate 16 Blood Pressure 153/100 H Blood Pressure Mean 117 Pulse Ox 98 Oxygen Delivery Method Room Air Positive well nourished and well developed General Appearance ED: well developed and NAD HEENT Reports moist mucous membranes Back/Spine Back/Spine Narrative: There is tenderness and mild spasm over the right lumbar paraspinal muscles. There is no midline tenderness. There is no bony crepitance or step-off. Range of motion was slightly limited in all motions of the lumbar spine secondary to pain. Straight leg raises were negative bilaterally. Strength is 5/5 bilateral in the lower extremities. There are no sensory deficits noted. Lumbar Spine / Lower Back: straight leg raise negative bilaterally Extremity Extremity Narrative: There is edema and ecchymosis over the medial aspect of the right thigh. There is no bony crepitance or step-off. There is no deformity noted. Range of motion is slightly limited in the left of the right hip secondary to pain. T here is no pain with resisted flexion, adduction, and abduction. Neuro oriented x3, CN's II-XII intact bilaterally, moves all extremities and no sensory deficits noted Sensorium / Orientation: alert Motor Exam: strength 5/5 throughout Psych mental status grossly normal MDM MDM MDM Narrative Medical decision making narrative: Differential diagnosis includes muscle strain, radiculopathy, avulsion fracture, spondylolisthesis, and sciatica. CT scan of the lumbar spine and wrist will be obtained to assess for spondylolisthesis and avulsion fracture. Radiography Diagnostic Testing: Clinical Impression(s) from Imaging Studies Lumbar Spine CT 01/12/24 09:38 IMPRESSION: Multilevel degenerative changes. Electronically Signed: Nia Barriga MD at 10:34 EDT , Pelvis CT 01/12/24 09:38 IMPRESSION: Degenerative changes of the hips. Electronically Signed: Nia Barriga MD at 10:40 EDT , CT scan of the lumbar spine was obtained. There are multilevel degenerative changes. There is no spondylolisthesis noted. This was interpreted by the radiologist was also independently reviewed by myself. CT scan of the pelvis was obtained. There are degenerative changes of the hips bilaterally. There is no avulsion fracture. This was interpreted by the radiologist and was also independently reviewed by myself. Treatment and Re-Evaluation Narrative: Patient was advised that this is most likely a muscle strain/tear. Patient was instructed use ice to the area. Patient was given a prescription for Naprosyn for pain. Patient was instructed to follow-up with his primary care physician in 5 to 7 days. Patient was instructed to return if worse in any way. Patient understood and was agreeable with the plan. All questions were answered. Discharge Plan Triage Chief Complaint: Lower Extremity Injury ED Provider: Raghu Sadler Dx/Rx/DC Orders Clinical Impression: Muscle strain of right thigh, Back pain Instructions: ED Muscle Strain, Extremity Prescriptions: New naproxen [Naprosyn] 500 mg tablet 500 mg PO BID PRN (Reason: pain) Qty: 20 0RF No Action cyclobenzaprine [cyclobenzaprine] 10 mg tablet 10 mg PO QHS PRN PRN (Reason: Muscle Spasm) Qty: 10 0RF methocarbamol 500 mg tablet 500 mg PO QPM gabapentin 300 mg capsule 300 mg PO BID oxycodone-acetaminophen [Percocet] 5-325 mg tablet 1 tab PO Q6H PRN (Reason: pain) 3 Days Qty: 12 0RF diazepam [Valium] 5 mg tablet 5 mg PO TID PRN (Reason: muscle spasm) 5 Days Qty: 15 0RF prednisone 20 mg tablet 40 mg PO DAILY 5 Days Qty: 10 0RF sulfamethoxazole-trimethoprim [Bactrim DS] 800-160 mg tablet 1 tab PO BID 7 Days Qty: 14 0RF Primary Care Provider: Josafat Davis Referrals: Josafat Davis DO [Primary Care Provider] - 5-7 Days Print Language: Swedish Disposition Disposition: Home, Self Care
--- NOTE | 2024-01-12 09:38 | CT_ITS ---
INDICATION: Hip pain EXAMINATION: CT PELVIS BONE - CT Pelvis W/O Contrast Injection TECHNIQUE: Routine noncontrast bone CT protocol was performed of the pelvis. 2-D reformats were performed by the technologist. The protocol utilizes one or more of the following dose reduction techniques: automated exposure control, adjustment of mA and/or kV according to patient size,and/or use of iterative reconstruction technique. IV Contrast dosage and agent: None. RADIATION DOSAGE (If Supplied By Facility): CTDIvol = ( 28.21 ) mGy, DLP = ( 1101.73 ) mGycm COMPARISON: CT dated January 24, 2020 FINDINGS: There is a separate dedicated CT report of the lumbar spine. SOFT TISSUES: No soft tissue swelling or gas. No radiopaque foreign body. There are diverticula arising from the visualized colon. BONES/JOINTS: No acute fracture or subluxation. Normal alignment. There are mild degenerative changes of the hips No sclerotic or destructive changes. CT/Pelvis without IV Contrast IMPRESSION: Degenerative changes of the hips. Electronically Signed: Nia Barriga MD at 10:40 EDT ,
--- NOTE | 2024-01-12 09:38 | CT_ITS ---
INDICATION: Back pain EXAMINATION: CT LUMBAR SPINE - CT Spine Lumbar W/O Contrast Injection TECHNIQUE: Helically acquired images were obtained of the lumbar spine. 2D reformats were reviewed. A radiation dose optimization technique was used for this scan. The protocol utilizes one or more of the following dose reduction techniques: automated exposure control, adjustment of mA and/or kV according to patient size,and/or use of iterative reconstruction technique. IV Contrast dosage and agent: None. RADIATION DOSAGE (If Supplied By Facility): CTDIvol = ( 13.97 ) mGy, DLP = ( 479.37 ) mGycm COMPARISON: CT of the abdomen and pelvis dated January 24, 2020 FINDINGS: VERTEBRAE: No fracture or traumatic subluxation. There is multilevel endplate spondylosis and facet hypertrophy. No discrete lytic or blastic abnormality observed. Normal alignment. DISCS and SPINAL CANAL: There is multilevel degenerative disc disease, most pronounced at L4-L5 and L5-S1. There is a posterior disc osteophyte and facet hypertrophy associated with stenosis of the central canal at L4-L5. VISUALIZED ABDOMEN: Visualized abdominal aorta is not dilated. There is no retroperitoneal adenopathy. There is a separate dedicated CT report of the pelvis. CT/Spine Lumbar without Contrast IMPRESSION: Multilevel degenerative changes. Electronically Signed: Nia Barriga MD at 10:34 EDT ,
== END 2024-01-12 11:15 | disposition home or self-care (01) ==
PROVIDERS: Emergency Provider Emergency Medicine; PCP Family Medicine; Visit Provider Emergency Medicine
DX: S76.911A Strain of unspecified muscles, fascia and tendons at thigh level, right thigh, initial encounter (principal); M54.9 Dorsalgia, unspecified; F17.210 Nicotine dependence, cigarettes, uncomplicated; F12.90 Cannabis use, unspecified, uncomplicated; W19.XXXA Unspecified fall, initial encounter
CPT/HCPCS: 72131; 72192; 99284

== ENCOUNTER 2024-01-20 09:07 | Emergency (ER) | payer MEDICAID, SELFPAY ==
[2024-01-20] VITALS (9 sets, daily range): BP systolic 125–134; BP diastolic 84–93; PULSE 52–88; RESP 16–18; TEMP 36.7; O2SAT 98–100; BMI 24.0
[2024-01-20] MEDS: Orphenadrine 100 MG Tablet PO (10:18)
[2024-01-20] MEDS: Ibuprofen 200 MG Tablet 400 MG PO (10:18)
[2024-01-20] MEDS: oxyCODONE 5 MG Tablet PO (10:18)
== END 2024-01-20 18:08 | disposition home or self-care (01) ==
PROVIDERS: Emergency Provider Emergency Medicine; PCP Family Medicine; Visit Provider Emergency Medicine
DX: M47.816 Spondylosis without myelopathy or radiculopathy, lumbar region (principal); M51.369 Other intervertebral disc degeneration, lumbar region without mention of lumbar back pain or lower extremity pain; M48.061 Spinal stenosis, lumbar region without neurogenic claudication; G89.29 Other chronic pain; R15.9 Full incontinence of feces; F17.210 Nicotine dependence, cigarettes, uncomplicated
CPT/HCPCS: 72148; 99284

== ENCOUNTER 2024-10-23 15:27 | Emergency (ER) | payer MEDICAID, SELFPAY ==
[2024-10-23 15:32] VITALS: BP 112/65; PULSE 104; RESP 14; TEMP 37.1; O2SAT 99; BMI 24.9
--- NOTE | 2024-10-23 15:36 | EKG12_ITS ---
Test Reason : ALT LOC Blood Pressure : */* mmHG Vent. Rate : 78 BPM Atrial Rate : 78 BPM P-R Int : 144 ms QRS Dur : 86 ms QT Int : 384 ms P-R-T Axes : 42 55 48 degrees QTcB Int : 437 ms Normal sinus rhythm Normal ECG Confirmed by Kris Hensley ([id number]), slot editor DEJAH FRANCISCO ([id number]) on 10/24/2024 11:41:15 AM Referred By: Confirmed By: Kris Hensley
--- NOTE | 2024-10-23 15:36 | EKG12_ITS ---
Test Reason : ALT LOC Blood Pressure : */* mmHG Vent. Rate : 78 BPM Atrial Rate : 78 BPM P-R Int : 144 ms QRS Dur : 86 ms QT Int : 384 ms P-R-T Axes : 42 55 48 degrees QTcB Int : 437 ms Normal sinus rhythm Normal ECG Confirmed by Kris Hensley ([id number]), advertising editor DEJAH FRANCISCO ([id number]) on 10/24/2024 11:41:15 AM Referred By: Confirmed By: Kris Hensley
--- NOTE | 2024-10-23 15:36 | EDS_ITS ---
HPI History of Present Illness Chief Complaint: Unresponsive Narrative Narrative: Patient is a 44-year-old male with past medical history of ADHD, cervical radiculopathy status post surgery in February, sciatic who presents to the emergency department with a chief complaint of unresponsiveness. Per security he was found unresponsive outside therefore they brought him in here to be evaluated. [facility] Medical History ADHD Sciatica Cervical radiculopathy Home Medications ?Medication ?Instructions ?Recorded ?Last Taken ?Type cyclobenzaprine 10 mg tablet 10 mg PO QHS PRN PRN Musc le Spasm 04/10/23 Unknown Rx #10 TABLETS diazepam 5 mg tablet (Valium) 5 mg PO TID PRN muscle s pasm 5 01/04/24 Unknown Rx days #15 tabs gabapentin 300 mg capsule 300 mg PO BID 01/04/24 Unkno wn History methocarbamol 500 mg tablet 500 mg PO QPM 01/04/24 Unk nown History prednisone 20 mg tablet 40 mg (2 x 20 mg) PO DAILY 5 days 01/04/24 Unknown Rx #10 tabs sulfamethoxazole 800 1 tab PO BID 7 days #14 tabs 01/04/24 Unknown Rx mg-trimethoprim 160 mg tablet (Bactrim DS) naproxen 500 mg tablet (Naprosyn) 500 mg PO BID PRN pa in #20 tabs 01/12/24 Unknown Rx oxycodone-acetaminophen 5 mg-325 1 tab PO Q6H PRN pain 3 days #12 01/20/24 Unknown Rx mg tablet (Percocet) tabs prednisone 20 mg tablet 20 mg PO DAILY #5 tabs 01/19 Unknown Rx tizanidine 6 mg capsule 6 mg PO TID PRN muscle spast icity 01/20/24 Unknown Rx #20 caps Allergy/AdvReac Type Severity Reaction Status Date / Time No Known Allergies Allergy Verified 01/20/24 09:07 Family History no significant family his Surgical History Hx of tonsillectomy Previous back surgery Social History household members: none Smoking Status: Current every day smoker tobacco type: cigarettes alcohol intake: current alcohol intake frequency: other substance use type: marijuana ROS ROS ED ROS Narrative Constitutional: Denies any fevers, chills, headaches, lightness, dizziness Eyes: Denies change in vision double vision blurry vision Cardiovascular: Denies chest pain shortness of breath Respiratory: Denies coughing wheezing shortness of breath Abdomen: Denies abdominal pain nausea vomiting diarrhea : Denies urinary symptoms Neurological: Denies any numbness, weakness, tingling Musculoskeletal: Denies back pain Skin: Denies any rashes or lesions EXAM Physical Exam Narrative Exam Narrative: General: Patient was lying in bed would follow commands by squeezing my hands when told so after sternal rub to wake up Head: Atraumatic, normocephalic Eyes: Pinpoint pupils on exam no conjunctival injection noted Neck: Soft, supple, trachea midline Cardiovascular: Regular rate and rhythm Respiratory: Clear to auscultation bilaterally Abdomen: Soft, nondistended Extremities: Radial pulses +2/4 and about extremities Neurological: Patient after sternal rub would wake up and follow commands Skin: Warm, dry, tact Const Vital Signs: 10/23/24 15:32 Temperature 98.8 F Temperature Source Oral Pulse Rate 104 H Respiratory Rate 14 Blood Pressure 112/65 Blood Pressure Mean 80 Pulse Ox 99 Oxygen Delivery Method Nasal Cannula Oxygen Flow Rate (L/min) 4 MDM MDM MDM Narrative Medical decision making narrative: Patient is a 44-year-old male who presented to the emergency department with security for unresponsive episode. Once again the patient pupils were pinpoint. On the differential diagnose includes but limited to opiate overdose, hypoglycemia, electrolyte abnormality. Patient's was hooked up to the monitor he was noted to be tachycardic and hypoxic therefore he was placed on 4 L nasal cannula patient ultimately was given Narcan and shortly after this he immediately woke up and had conversation with us. Patient states that earlier today he went to [place] for a psych eval and he states that this appointment went well. He states that he stopped at a friend's house and then was on his way to see his mother and he notes that he ended up here and is not sure what happened. He denies any history of drug abuse. Patient's [id number] glucose was noted to be 105. Discharge Plan Triage Chief Complaint: Unresponsive ED Provider: Caleb Smith Dx/Rx/DC Orders Prescriptions: No Action cyclobenzaprine [cyclobenzaprine] 10 mg tablet 10 mg PO QHS PRN PRN (Reason: Muscle Spasm) Qty: 10 0RF naproxen [Naprosyn] 500 mg tablet 500 mg PO BID PRN (Reason: pain) Qty: 20 0RF methocarbamol 500 mg tablet 500 mg PO QPM gabapentin 300 mg capsule 300 mg PO BID diazepam [Valium] 5 mg tablet 5 mg PO TID PRN (Reason: muscle spasm) 5 Days Qty: 15 0RF prednisone 20 mg tablet 40 mg PO DAILY 5 Days Qty: 10 0RF sulfamethoxazole-trimethoprim [Bactrim DS] 800-160 mg tablet 1 tab PO BID 7 Days Qty: 14 0RF prednisone 20 mg tablet 20 mg PO DAILY Qty: 5 0RF tizanidine 6 mg capsule 6 mg PO TID PRN (Reason: muscle spasticity) Qty: 20 0RF oxycodone-acetaminophen [Percocet] 5-325 mg tablet 1 tab PO Q6H PRN (Reason: pain) 3 Days Qty: 12 0RF Primary Care Provider: Josafat Davis Referrals: Josafat Davis DO [Primary Care Provider] - Print Language: Kinyarwanda
--- NOTE | 2024-10-23 15:36 | EX.ED.DYSGE1 ---
HPI History of Present Illness Chief Complaint: Unresponsive Narrative Narrative: Patient is a 44-year-old male with past medical history of ADHD, cervical radiculopathy status post surgery in February, sciatic who presents to the emergency department with a chief complaint of unresponsiveness. Per security he was found unresponsive outside therefore they brought him in here to be evaluated. [facility] Medical History ADHD Sciatica Cervical radiculopathy Home Medications ?Medication ?Instructions ?Recorded ?Last Taken ?Type cyclobenzaprine 10 mg tablet 10 mg PO QHS PRN PRN Muscle Spasm 04/10/23 Unknown Rx #10 TABLETS gabapentin 300 mg capsule 300 mg PO BID 01/04/24 Unknown History baclofen 10 mg tablet mg PO 10/23/24 Unknown History cholecalciferol (vitamin D3) 125 125 mcg PO DAILY 10/23/24 Unknown History mcg (5,000 unit) capsule ibuprofen 800 mg tablet 800 mg PO TID 10/23/24 Unknown History Allergy/AdvReac Type Severity Reaction Status Date / Time No Known Allergies Allergy Verified 01/20/24 09:07 Family History no significant family his Surgical History Hx of tonsillectomy Previous back surgery Social History household members: none Smoking Status: Current every day smoker tobacco type: cigarettes alcohol intake: current alcohol intake frequency: other substance use type: marijuana ROS ROS ED ROS Narrative Constitutional: Denies any fevers, chills, headaches, lightness, dizziness Eyes: Denies change in vision double vision blurry vision Cardiovascular: Denies chest pain shortness of breath Respiratory: Denies coughing wheezing shortness of breath Abdomen: Denies abdominal pain nausea vomiting diarrhea : Denies urinary symptoms Neurological: Denies any numbness, weakness, tingling Musculoskeletal: Denies back pain Skin: Denies any rashes or lesions EXAM Physical Exam Narrative Exam Narrative: General: Patient was lying in bed would follow commands by squeezing my hands when told so after sternal rub to wake up Head: Atraumatic, normocephalic Eyes: Pinpoint pupils on exam no conjunctival injection noted Neck: Soft, supple, trachea midline Cardiovascular: Regular rate and rhythm Respiratory: Clear to auscultation bilaterally Abdomen: Soft, nondistended Extremities: Radial pulses +2/4 and about extremities Neurological: Patient after sternal rub would wake up and follow commands Skin: Warm, dry, tact Const Vital Signs: 10/23/24 15:32 10/23/24 15:39 10/23/24 15:44 Temperature 98.8 F Temperature Source Oral Pulse Rate 104 H Respiratory Rate 14 Respiratory Pattern Normal Blood Pressure 112/65 Blood Pressure Mean 80 Pulse Ox 99 98 Oxygen Delivery Method Nasal Cannula Room Air Oxygen Flow Rate (L/min) 4 MDM MDM MDM Narrative Medical decision making narrative: Patient is a 44-year-old male who presented to the emergency department with security for unresponsive episode. Once again the patient pupils were pinpoint. On the differential diagnose includes but limited to opiate overdose, hypoglycemia, electrolyte abnormality. Patient's was hooked up to the monitor he was noted to be tachycardic and hypoxic therefore he was placed on 4 L nasal cannula patient ultimately was given Narcan and shortly after this he immediately woke up and had conversation with us. Patient states that earlier today he went to [place] for a psych eval and he states that this appointment went well. He states that he stopped at a friend's house and then was on his way to see his mother and he notes that he ended up here and is not sure what happened. He denies any history of drug abuse. Patient's [id number] glucose was noted to be 105. Patient according nursing staff ripped all his monitoring off and states that he is leaving. Wanting to discussed with the patient and he states that he wants to go home and go to his mother's house and eat something and try to figure out what happened earlier today. I told the patient that there is a chance that his Narcan is going to wear off and he could go back into a ulnar mental status with respiratory depression ultimately leading to his he states that he understands this and wants to leave. Patient was up ambulatory completely dressed at bedside. Patient will leave AGAINST MEDICAL ADVICE. He was advised to return with worsening symptoms or any other concerns. Discharge Plan Triage Chief Complaint: Unresponsive ED Provider: Caleb Smith Dx/Rx/DC Orders Clinical Impression: Unresponsive episode, Opiate overdose Prescriptions: No Action cyclobenzaprine [cyclobenzaprine] 10 mg tablet 10 mg PO QHS PRN PRN (Reason: Muscle Spasm) Qty: 10 0RF ibuprofen 800 mg tablet 800 mg PO TID baclofen 10 mg tablet PO cholecalciferol (vitamin D3) 125 mcg (5,000 unit) capsule 125 mcg PO DAILY gabapentin 300 mg capsule 300 mg PO BID Primary Care Provider: Josafat Davis Referrals: Josafat Davis DO [Primary Care Provider] - Print Language: Indonesian Disposition Disposition: Against Medical Advice
[2024-10-23 15:44] VITALS: O2SAT 98
--- OUTSIDE RECORDS SUMMARY | 2024-10-23 21:21 | XMS RPT_ITS | CCD ---
Author Organization [facility] Care Team Providers Care [facility]ospice Spiritual Care Coordinator Name Role Phone TOM WESLEY Unavailable Unavailable DEGIDIO, JOSAFAT R Unavailable Unavailable SHA FOSTER Unavailable Unavailable DEGIDIO, JOSAFAT R Unavailable Unavailable ALBARADO, HARKEET Unavailable Unavailable DEGIDIO, JOSAFAT R Unavailable Unavailable SHA FOSTER Unavailable Unavailable DEGIDIO, JOSAFAT R Unavailable Unavailable SHA FOSTER Unavailable Unavailable SHA FOSTER Unavailable Unavailable DEGIDIO, JOSAFAT R Unavailable Unavailable SHA FOSTER Unavailable Unavailable DEGIDIO, JOSAFAT R Unavailable Unavailable Alicia, Dr. Sha Rice Attending Michel Foster, Dr. Sha Rice Attending Michel alarcon Degidio DO, Josafat R Unavailable [phone] Degidio DO, Josafat R Unavailable Degidio DO, Josafat R Primary Care Provider Dev Martel PA-C Unavailable Degidio DO, Josafat R Primary Care Provider Dev Martel PA-C Unavailable SHA FOSTER Admitting Unavailable SHA FOSTER Attending Unavailable HSA FOSTER Referring Unavailable DEGIDIO, JOSAFAT R Primary Care Unavailable Degidio, Josafat Primary Care Unavailable Raghu Sadler Attending Unavailable Degidio, Josafat Primary Care Unavailable Demetrius Andrew Attending Unavailable Mynor Colon Attending Unavailable Degidio, Josafat Primary Care Unavailable Degidio, Josafat Primary Care Unavailable Raghu Sadler Attending Unavailable Degidio, Josafat Primary Care Unavailable TYRON SINGH Referring Unavailable TYRON SINGH Attending Unavailable Kehinde Cota Attending Unavailable Degidio, Josafat Primary Care Unavailable Degidio DO, Josafat R Primary Care Provider Degidio DO, Josafat R Primary Care Provider Dev Martel PA-C Unavailable Dev Martel PA-C Unavailable SHA FOSTER Attending Unavailable DEGIDIO, JOSAFAT R Primary Care Unavailable SHA FOSTER Attending Unavailable DEGIDIO, JOSAFAT R Primary Care Unavailable SHA FOSTER Attending Unavailable MATTIDIO, JOSAFAT R Primary Care Unavailable SHA FOSTER Admitting Unavailable SHA FOSTER Attending Unavailable SHA FOSTER Referring Unavailable DEGIDIO, JOSAFAT R Primary Care Unavailable JEFF NICHOLS Consulting Unavailable SHA FOSTER Admitting Unavailable SHA FOSTER Attending Unavailable MATTIDIO, JOSAFAT R Primary Care Unavailable JEFF NICHOLS Attending Unavailable DEGIDIO, JOSAFAT R Primary Care Unavailable SHA FOSTER Attending Unavailable MATTIDIO, JOSAFAT R Primary Care Unavailable SHA FOSTER Referring Unavailable DEGIDIO, JOSAFAT R Primary Care Unavailable SHA FOSTER Attending Unavailable MATTIDIO, JOSAFAT R Primary Care Unavailable SHA FOSTER Referring Unavailable DEGIDIO, JOSAFAT R Primary Care Unavailable DEGIDIO, JOSAFAT R Primary Care Unavailable DEGIDIO, JOSAFAT R Primary Care Unavailable LISA POLANCO Attending Unavailable DEGIDIO, JOSAFAT R Primary Care Unavailable DEGIDIO, JOSAFAT R Primary Care Unavailable DEGIDIO, JOSAFAT R Primary Care Unavailable DEGIDIO, JOSAFAT R Primary Care Unavailable DEGIDIO, JOSAFAT R Primary Care Unavailable DEGIDIO, JOSAFAT R Primary Care Unavailable ZULEYKA BRYANT Attending Unavailable DEGIDIO, JOSAFAT R Primary Care Unavailable SURAJ MEYERS I Attending Unavailable DEV MARTEL Referring Unavailable DEGIDIO, JOSAFAT R Primary Care Unavailable NIGHAT GRIFFIN Attending Unavailable DEGIDIO, JOSAFAT R Primary Care Unavailable DEGIDIO, JOSAFAT R Attending Unavailable DEGIDIO, JOSAFAT R Primary Care Unavailable RADHA DIXON Attending Unavailable SHA FOSTER Referring Unavailable DEGIDIO, JOSAFAT R Primary Care Unavailable NIGHAT GRIFFIN Referring Unavailable JOSAFAT LEONARD Primary Care Unavailable SHA FOSTER Referring Unavailable JOSAFAT LEONARD R Primary Care Unavailable ZURI MELO Attending Unavailable NIGHAT GRIFFIN Referring Unavailable DEGMARIA ALEJANDRAO, JOSAFAT R Primary Care Unavailable Dr. Josafat Leonard DO Primary Care Provider Dr. Caleb Smith DO Emergency Provider Allergies Allergy Classification Reported Allergen(s) Allergy Type Date of Onset Reaction(s) Facility (1 source) ALLERGIES NOT ON FILE; Translations: [ALLERGIES NOT ON FILE] Propensity to adverse reactions (disorder) [facility] Repository Medications Current Medications Medication Drug Class(es) Dates Sig (Normalized) Sig (Original) acetaminophen 325 mg oral tablet (10 sources) Start: 02-25-2024 End: 03-04-2024 take 2 tablets by mouth every six hours acetaminophen (Tylenol) 325 mg tablet Indications: Spinal stenosis, cervical region Take 2 tablets (650 mg) by mouth every 6 hours for 7 days. 56 tablet 02/26/2024 10:39 AM EST 02/25/2024 03/04/2024 Active Start: 02-24-2024 take 1 tablet by linda th every six hours 650 mg, oral, Every 6 hours, First dose on Angel[facility] 02/24/24 at 1815, If ordered PRN for pain, nurse is permitted to administer this medication for higher pain scores based on patient preference? Yes Start: 02-24-2024 End: 02-24-2024 take 650 mg by mouth once as needed for pain 650 mg, oral, Once, On Angelita 02/24/24 at 0115, For 1 dose, Preprocedure, If ordered PRN for pain, nurse is permitted to administer this medication for higher pain scores based on patient preference? Yes take 1 tablet by linda th every six hours as needed for pain acetaminophen (TYLENOL) 500 MG tablet Take 500 mg by mouth every 6 hours as needed for Pain Active ALPRAZolam 0.5 mg oral tablet (1 source) Benzodiazepine Start: 02-24-2024 take 0.5 mg by mouth once daily as needed for anxiety 0.5 mg, oral, Nightly PRN, anxiety, Starting on Angelita 02/24/24 at 2002 baclofen 10 mg oral tablet (6 sources) gamma-Aminobutyric Acid-ergic Agonist Start: 10-23-2024 Baclofen 10 mg tablet Active mg PO October 23, 2024 12:00am Start: 10-02-2024 End: 12-31-2024 take 1.5 tablets by mouth three times daily baclofen (Lioresal) 10 mg tablet Indications: Cervical myelopathy Take 1.5 tablets (15 mg) by mouth 3 times a day. 135 tablet 2 10/02/2024 12/31/2024 Active Start: 08-04-2024 End: 10-02-2024 take 1 tablet by mouth three times daily baclofen (Lioresal) 10 mg tablet Indications: Cervical myelopathy Take 1 tablet (10 mg) by mouth 3 times a day. 270 tablet 1 08/04/2024 10/02/2024 Discontinued (Reorder) Start: 07-19-2024 End: 08-02-2025 take 0.5 tablet by mouth three times daily, then take 1 tablet by mouth three times daily baclofen (Lioresal) 10 mg tablet Indications: Cervical myelopathy Take 0.5 tablets (5 mg) by mouth 3 times a day for 14 days, THEN 1 tablet (10 mg) 3 times a day. 90 tablet 3 07/19/2024 08/02/2025 Active capsaicin 0.35 mg/ml topical cream (12 sources) Start: 11-19-2017 Capsaicin (ZOS TRIX) 0.035 % CREA cream Apply topically 3 times daily 1 Tube 11/19/2017 Active Start: 11-01-2017 Capsaicin 0.1 % CREA Indications: Acute exacerbation of chronic low back pain Apply 1 applicator topically 3 times daily as needed (pain) 42.5 g 11/01/2017 Active chlorzoxazone 500 mg oral tablet (1 source) Muscle Relaxant Start: 02-22-2024 End: 02-26-2024 take 1 tablet by mouth four times daily as needed for muscle spasms chlorzoxazone (Parafon Forte) 500 mg tablet Indications: Cervical radiculopathy Take 1 tablet (500 mg) by mouth 4 times a day as needed for muscle spasms for up to 10 days. 30 tablet 02/22/2024 02/26/2024 Discontinued (Stop Taking at Discharge) cholecalciferol 0.125 mg oral capsule (16 sources) Vitamin D Start: 10-23-2024 take 1 capsule by mouth once daily Cholecalciferol (Vitamin D3) 125 mcg (5,000 unit) capsule Active 125 ug PO DAILY October 23, 2024 12:00am Start: 06-28-2024 take 1 capsule by mo uth once daily cholecalciferol (Vitamin D-3) 125 mcg (5,000 units) capsule Indications: Other chronic pain , Vitamin D deficiency 1 by mouth daily to help lessen pain and improve vitamin D level 30 capsule 11 06/28/2024 Active Start: 10-04-2017 End: 02-22-2024 take 1 capsule by mouth once daily cholecalciferol (Vitamin D-3) 125 MCG (5000 UT) capsule Take 1 capsule (125 mcg) by mouth once daily. 10/04/2017 02/22/2024 Discontinued (Therapy completed) cyclobenzaprine hydrochloride 10 mg oral tablet (20 sources) Muscle Relaxant Start: 07-14-2024 End: 07-24-2024 take 1 tablet by mouth three times daily as needed for muscle spasms cyclobenzaprine (FLEXERIL) 10 MG tablet Take 1 tablet by mouth 3 times daily as needed for Muscle spasms 15 tablet 07/14/2024 07/24/2024 Active Start: 06-15-2024 End: 06-15-2024 take 1 dose by mouth once 10 mg, Oral, ONCE, 1 dose, O n Angelita 06/15/24 at 2144 Start: 06-15-2024 End: 06-25-2024 take 1 tablet by mouth twice daily as needed for muscle spasms cyclobenzaprine (FLEXERIL) 5 MG tablet Take 1 tablet by mouth 2 times daily as needed for Muscle spasms 20 tablet 06/15/2024 06/25/2024 Active Start: 02-22-2024 End: 02-24-2024 take 5 mg by mouth three times daily as needed for muscle spasms 5 mg, oral, 3 times daily PRN, muscle spasms, Starting on Wed02/22/24 at 1810 Start: 11-09-2022 End: 07-19-2024 take 1 tablet by mouth three times daily as needed for muscle spasms Cyclobenzaprine 10 mg tablet Discontinued 10 mg PO THREE TIMES A DAY as needed for Muscle Spasm 20 March 09, 2023 1:00am April 10, 2023 5:41pm gabapentin 600 mg oral tablet (6 sources) Anti-epileptic Agent Start: 10-02-2024 End: 12-31-2024 take 1 tablet by mouth three times daily gabapentin (Neurontin) 600 mg tablet Indications: Herniated nucleus pulposus, L4-5 , Paresthesia of upper extremity , Spinal stenosis, cervical region , Back pain with radiculopathy , Cervical myelopathy Take 1 tablet (600 mg) by mouth 3 times a day. 90 tablet 2 10/02/2024 12/31/2024 Active Start: 10-02-2024 End: 10-02-2024 take 2 capsules by mouth three times daily gabapentin (Neurontin) 300 mg capsule Indications: Back pain with radiculopathy Take 2 capsules (600 mg) by mouth 3 times a day. 180 capsule 2 10/02/2024 10/02/2024 Discontinued (Dose adjustment) Start: 07-24-2024 End: 10-02-2024 take 1 capsule by mouth three times daily in the evening gabapentin (Neurontin) 300 mg capsule Indications: Back pain with radiculopathy Take 1 capsule (300 mg) by mouth 3 times a day. 90 capsule 2 09/28/2024 2:18 PM EDT 07/24/2024 10/02/2024 Discontinued (Reorder) Start: 01-04-2024 take 1 capsule by mo [facility] twice daily Gabapentin 300 mg capsule Active 300 mg PO TWICE A DAY January 04, 2024 12:00am glucagon (rdna) 1 mg injection (1 source) Antihypoglycemic Agent Start: 02-24-2024 1 mg, intramuscular, Every 15 min PRN, low blood sugar - see comments, For blood glucose less than or equal to 70 mg/dL and no IV access, Starting on Angelita 02/24/24 at 1745, Give until blood glucose is 100 mg/dL or greater. If patient DOES NOT HAVE secure IV access & patient is unconscious, NPO or is unable to eat or drink. 50 ml glucose 500 mg/ml prefilled syringe (1 source) Start: 02-24-2024 12.5 g, intravenous, Every 15 min PRN, For blood glucose 41 to 70 mg/dL, Starting on Angelita 02/24/24 at 1745, May repeat until blood glucose level reaches 100 mg/dL or greater. Push 2 - 3 mL/minute if patient has secure IV access. hydrOXYzine pamoate 25 mg oral capsule (1 source) Antihistamine Start: 02-25-2024 take 1 capsule by mouth every six hours as needed 25 mg, oral, Every 6 hours PRN, anxiety, Starting on Wed02/25/24 at 1456 ibuprofen 800 mg oral tablet (20 sources) Nonsteroidal Anti-inflammatory Drug Start: 10-23-2024 take 1 tablet by mouth three times daily Ibuprofen 800 mg tablet Active 800 mg PO THREE TIMES A DAY October 23, 2024 12:00am Start: 07-24-2024 End: 10-02-2024 take 1 tablet by mouth three times daily as needed for pain ibuprofen 800 mg tablet Indications: Back pain with radiculopathy Take 1 tablet (800 mg) by mouth 3 times a day as needed for mild pain (1 - 3). 90 tablet 2 10/02/2024 Active Start: 01-29-2024 End: 02-08-2024 take 1 tablet by mouth every eight hours as needed for pain ibuprofen (ADVIL;MOTRIN) 800 MG tablet Take 1 tablet by mouth every 8 hours as needed for Pain 30 tablet 01/29/2024 Active Start: 10-04-2017 End: 02-26-2024 take 1 tablet by mouth three times daily as needed ibuprofen 800 mg tablet Take 1 tablet (800 mg) by mouth 3 times a day as needed. 10/04/2017 02/26/2024 Discontinued (Stop Taking at Discharge) 1 ml ketorolac tromethamine 30 mg/ml cartridge (12 sources) Nonsteroidal Anti-inflammatory Drug, Cyclooxygenase Inhibitor Start: 07-13-2024 30 mg, IntraVEN ous, ONCE, 1 dose, On Angelita 07/13/24 at 2301, Do not administer for more than 5 days. Start: 06-15-2024 30 mg, IntraMU SCular, ONCE, 1 dose, On Angelita 06/15/24 at 2144, Do not administer for more than 5 days. Start: 05-19-2024 inject 1 dose by int ramuscular injection once 15 mg, IntraMUSCular, ONCE, 1 dose, On Wed05/19/24 at 0154 Start: 02-08-2024 30 mg, IntraMU SCular, ONCE, 1 dose, On 02/08/24 at 2224, Do not administer for more than 5 days. Start: 01-29-2024 30 mg, IntraVE Nous, ONCE, 1 dose, On 01/29/24 at 2037, Do not administer for more than 5 days. Start: 12-12-2023 30 mg, IntraMU SCular, ONCE, 1 dose, On 12/12/23 at 1847, Do not administer for more than 5 days. Start: 12-07-2023 take 1 tablet by linda th every six hours as needed for pain ketorolac (TORADOL) 10 MG tablet Take 1 tablet by mouth every 6 hours as needed for Pain 20 tablet 12/07/2023 Active lidocaine 0.04 mg/mg medicated patch (2 sources) Antiarrhythmic, Amide Local Anesthetic Start: 06-15-2024 End: 06-16-2024 1 patch, TransDERmal, Administer over 12 Hours, NOW, On Angelita 06/15/24 at 2144, For 1 dose, Apply patch to left lower back. The leak inspector's recommendations for the number of patches that can be applied within a 24-hour period varies from 1 to 4 times daily and the duration of application varies from 8 to 24 hours; refer to the leak inspector's labeling for product-specific recommendations. Start: 12-12-2023 End: 12-22-2023 apply 1 dose transdermal route once daily lidocaine (LIDOCAINE PAIN RELIEF) 4 % external patch Place 1 patch onto the skin daily for 10 days 10 each 12/12/2023 12/22/2023 Active Misc. Devices (WALKER) MISC (3 sources) Start: 05-19-2024 Misc. Devices (WALKER) MISC 1 each by Does not apply route daily 1 each 05/19/2024 Active 2 ml naloxone hydrochloride 1 mg/ml prefilled syringe (1 source) Opioid Antagonist Start: 02-24-2024 0.2 mg, intravenous, Every 5 min PRN, respiratory depression, Starting on Angelita 02/24/24 at 1745, If respiratory rate is less than 8 breaths/minute or patient is difficult to arouse stop any narcotics and contact physician. Administer slow IV push. Repeat as ordered until patient's respiratory rate is greater than 12 breaths/minute. Kramer (Nk) (1 source) Start: 08-20-2021 Kramer (Nk) Active August 20, 2021 12:00am oxyCODONE hydrochloride 5 mg oral tablet (6 sources) Opioid Agonist Start: 02-25-2024 End: 03-04-2024 take 1 tablet by mouth every six hours for pain oxyCODONE (Roxicodone) 5 mg immediate release tablet Indications: Spinal stenosis, cervical region Take 1 tablet (5 mg) by mouth every 6 hours if needed for severe pain (7 - 10) or moderate pain (4 - 6) for up to 7 days. 28 tablet 02/26/2024 10:39 AM EST 02/25/2024 03/04/2024 Active Start: 02-24-2024 take 1 tablet by linda th every four hours as needed 10 mg, oral, Every 4 hours PRN, pain severe (7-10), first line, Starting on [facility] 02/24/24 at 1745, If ordered PRN for pain, nurse is permitted to administer this medication for higher pain scores based on patient preference? Yes Start: 02-24-2024 take 1 tablet by linda th every four hours as needed 5 mg, oral, Every 4 hours PRN, pain moderate (4-6), first line, Starting on Angelita 02/24/24 at 1745, If ordered PRN for pain, nurse is permitted to administer this medication for higher pain scores based on patient preference? Yes Start: 02-24-2024 take 1 tablet by linda th every four hours as needed 2.5 mg, oral, Every 4 hours PRN, pain mild (1-3), first line, Starting on Angelita 02/24/24 at 1745, If ordered PRN for pain, nurse is permitted to administer this medication for higher pain scores based on patient preference? Yes oxygen (O2) therapy (1 source) Start: 02-24-2024 inhalation, Continuous - , First dose on Angelita 02/24/24 at 1815, Titrate supplemental oxygen to maintain SpO2 greater than or equal to 92, Device: Nasal Cannula, Rate in liters per minute: 1 LPM, Keep O2 Sat Above: 92% penicillin v potassium 500 mg oral tablet (1 source) Start: 04-03-2022 take 500 mg by mouth four times daily Penicillin V Potassium Active 500 MG PO 4 TIMES DAILY June 15, 2021 9:05pm polyethylene glycol 3350 43140 mg powder for oral solution (1 source) Osmotic Laxative Start: 02-24-2024 17 g, oral, D aily, First dose on Angelita 02/24/24 at 1815, Bowel Regimen - for prevention of constipation. polyvinyl alcohol 0.014 ml/ml / povidone 6 mg/ml ophthalmic solution (1 source) Start: 02-24-2024 1 drop, Left E ye, As needed, dry eyes, Starting on Angelita 02/24/24 at 1908 predniSONE 50 mg oral tablet (7 sources) Start: 06-15-2024 End: 06-19-2024 take 1 tablet by mouth once daily predniSONE (DELTASONE) 50 MG tablet Take 1 tablet by mouth daily for 4 days 4 tablet 06/15/2024 06/19/2024 Active Start: 05-19-2024 End: 05-24-2024 take 1 tablet by mouth twice daily predniSONE (DELTASONE) 20 MG tablet Take 1 tablet by mouth 2 times daily for 5 days 10 tablet 05/19/2024 05/24/2024 Active Start: 02-08-2024 End: 02-08-2024 take 1 dose by mouth once 60 mg, Oral, ONCE, 1 dose, O n 02/08/24 at 2224 Start: 01-29-2024 End: 01-29-2024 take 1 dose by mouth once 60 mg, Oral, ONCE, 1 dose, O n 01/29/24 at 2129 Start: 01-20-2024 End: 10-23-2024 take 1 tablet by mouth once daily Prednisone 20 mg tablet Discontinued 20 mg PO DAILY 5 January 20, 2024 1:00am October 23, 2024 3:49pm Start: 01-04-2024 End: 10-23-2024 take 2 tablets by mouth once daily Prednisone 20 mg tablet Discontinued 40 mg PO DAILY 10 5 January 04, 2024 12:00am October 23, 2024 3:49pm Start: 12-07-2023 End: 12-12-2023 take 2 tablets by mouth once daily predniSONE (DELTASONE) 20 MG tablet Take 2 tablets by mouth daily for 5 days 10 tablet 12/07/2023 12/12/2023 Active promethazine (Phenergan) 6.25 mg in sodium chloride 0.9% 50 mL IV (1 source) Start: 02-24-2024 6.25 mg, intravenous, Administer over 15 Minutes, Once as needed, Nausea/vomiting, second line, Starting on Angelita 02/24/24 at 1745, For 1 dose sulfamethoxazole 800 mg / trimethoprim 160 mg oral tablet (5 sources) Dihydrofolate Reductase Inhibitor Antibacterial, Sulfonamide Antimicrobial Start: 02-25-2024 End: 03-07-2024 take 1 tablet by mouth every twelve hours sulfamethoxazole-tri methoprim (Bactrim DS) 800-160 mg tablet Indications: Cellulitis, Skin and Soft Tissue Take 1 tablet by mouth every 12 hours for 10 days. 20 tablet 02/26/2024 10:39 AM EST 02/25/2024 03/07/2024 Active Start: 01-04-2024 End: 10-23-2024 Sulfamethoxazole-Trimethopri m (Bactrim Ds) 800-160 mg tablet Discontinued 1 {tbl} PO TWICE A DAY 14 7 0 January 04, 2024 12:00am October 23, 2024 3:49pm Completed/Discontinued Medications Medication Drug Class(es) Dates Sig (Normalized) Sig (Original) acetaminophen 325 mg / HYDROcodone bitartrate 5 mg oral tablet (20 sources) Opioid Agonist Start: 05-18-2023 take 1 tablet by mouth every six hours as needed Hydrocodone-Aceta minophen Active 1 TABLET PO EVERY 6 HOURS NEEDED 12 3 May 18, 2023 Start: 11-09-2022 End: 01-04-2024 Hydrocodone-Acetaminophen 5- 325 mg tablet Discontinued 1 {tbl} PO EVERY 6 HOURS NEEDED as needed for Pain 12 3 0 May 18, 2023 January 04, 2024 5:57am Acute low back pain Low back pain Start: 11-09-2022 End: 04-10-2023 take 1 tablet by mouth every six hours as needed Hydrocodone-Acetaminophen Discontinued 1 TABLET PO EVERY 6 HOURS NEEDED 10 3 March 09, 2023 April 10, 2023 4:41pm Start: 05-10-2018 End: 05-13-2018 Hydrocodone-Acetaminophen 1 TABLET tablet Discontinued 1 {tbl} PO EVERY 6 HOURS NEEDED as needed for Pain 10 3 0 May 10, 2018 1:00am May 12, 2018 1:00am May 13, 2018 1:08am Sciatica Sciatica, unspecified side Start: 05-10-2018 End: 05-13-2018 take 1 tablet by mouth every six hours as needed Hydrocodone-Acetaminophen Discontinued 1 TABLET PO EVERY 6 HOURS NEEDED 10 3 May 10, 2018 12:00am May 13, 2018 12:08am acetaminophen 325 mg / oxyCODONE hydrochloride 5 mg oral tablet (18 sources) Opioid Agonist Start: 05-19-2024 End: 05-19-2024 take 1 tablet by mouth every twenty-four hours 1 tablet, Oral, ONCE, 1 dose, On Wed05/19/24 at 0342, Maximum dose of acetaminophen is 4000 mg from all sources in 24 hours. Start: 03-03-2024 End: 03-08-2024 take 1 tablet by mouth once daily as needed for pain oxyCODONE-acetaminophen (Percocet) 5-325 mg tablet Indications: Cervical radiculopathy Take 1 tablet by mouth once daily as needed for severe pain (7 - 10) for up to 5 days. 5 tablet 03/03/2024 03/08/2024 Active Start: 02-09-2024 End: 02-11-2024 oxyCODONE-acetaminophen (PER COCET) 5-325 MG per tablet Indications: Lumbosacral radiculitis Take 1 tablet by mouth every 8 hours as needed for Pain for up to 3 doses. Intended supply: 3 days. Take lowest dose possible to manage pain Max Daily Amount: 3 tablets 3 tablet 02/09/2024 02/11/2024 Active Start: 02-08-2024 End: 02-08-2024 take 1 tablet by mouth every twenty-four hours 1 tablet, Oral, ONCE, 1 dose, On 02/08/24 at 2322, Maximum dose of acetaminophen is 4000 mg from all sources in 24 hours. Start: 01-29-2024 End: 01-29-2024 take 1 tablet by mouth every twenty-four hours 1 tablet, Oral, ONCE, 1 dose, On 01/29/24 at 2128, Maximum dose of acetaminophen is 4000 mg from all sources in 24 hours. Start: 01-04-2024 End: 10-23-2024 take 1 tablet by mouth every six hours as needed 1 tablet, oral, Every 6 hours PRN, pain severe (7-10), first line, Starting on Wed02/22/24 at 1810, If ordered PRN for pain, nurse is permitted to administer this medication for higher pain scores based on patient preference? Yes Start: 12-12-2023 End: 12-12-2023 take 1 tablet by mouth every twenty-four hours 1 tablet, Oral, ONCE, 1 dose, On 12/12/23 at 1903, Maximum dose of acetaminophen is 4000 mg from all sources in 24 hours. Start: 01-24-2020 End: 01-29-2020 Oxycodone-Acetaminophen 1 TA BLET tablet Discontinued 1 {tbl} PO EVERY 6 HOURS NEEDED as needed for Pain 20 5 0 January 24, 2020 January 28, 2020 1:00am January 29, 2020 1:02am Acute strain of neck muscle Strain of muscle, fascia and tendon at neck level, initial encounter Start: 01-24-2020 End: 01-29-2020 take 1 tablet by mouth every six hours as needed Oxycodone-Acetaminophen Discontinued 1 TABLET PO EVERY 6 HOURS NEEDED 20 5 January 24, 2020 January 29, 2020 12:02am ceFAZolin 2000 mg injection (1 source) Cephalosporin Antibacterial Start: 02-24-2024 End: 02-25-2024 take 2 g intravenously every eight hours 2 g, intravenous, Administer over 30 Minutes, Every 8 hours, First dose on Angelita 02/24/24 at 2100, For 2 doses, X 2 post op premix bag, Dosing of this medication varies based on severity of illness. Does this patient have sepsis or concern for sepsis (probable or documented infection plus systemic manifestations of infection)? No, Suspected Indication (Select all that apply): Surgical Prophylaxis, Indications: Surgical Prophylaxis celecoxib 200 mg oral capsule (1 source) Nonsteroidal Anti-inflammatory Drug Start: 02-24-2024 End: 02-24-2024 take 1 capsule by mouth every hour 200 mg, oral, Once, On Angelita 02/24/24 at 0115, For 1 dose, Preprocedure, 1 hour prior to incision Capsules may be opened and sprinkled on a spoonful of cold or room temperature applesauce. diazePAM 5 mg oral tablet (2 sources) Benzodiazepine Start: 01-04-2024 End: 10-23-2024 take 1 tablet by mouth three times daily as needed for muscle spasms Diazepam (Valium) 5 mg tablet Discontinued 5 mg PO THREE TIMES A DAY as needed for muscle spasm 15 5 0 January 04, 2024 12:00am October 23, 2024 3:49pm Muscle spasm Other muscle spasm Start: 06-15-2021 take 1 tablet by linda twice daily Diazepam (Valium) 2 mg tablet Active 2 MG PO TWICE A DAY June 15, 2021 9:05pm 1 ml fentaNYL 0.05 mg/ml injection (1 source) Opioid Agonist Start: 02-24-2024 End: 02-24-2024 50 mcg, intravenous, Every 5 min PRN, pain moderate (4-6), first line, Starting on Wed02/24/24 at 1612, For 3 doses, Recovery (only), Max total of 200 micrograms regardless of dose., If ordered PRN for pain, nurse is permitted to administer this medication for higher pain scores based on patient preference? Yes gadoterate meglumine (Dotarem) 0.5 mmol/mL contrast injection 15 mL (1 source) Start: 02-17-2024 End: 02-17-2024 inject 15 mL intravenously once 15 mL, intravenous, Once in imaging, Starting on Wed02/17/24 at 1839, For 1 dose, Administer undiluted as rapid I.V. bolus injection 0.5 ml HYDROmorphone hydrochloride 1 mg/ml prefilled syringe (1 source) Opioid Agonist Start: 02-24-2024 End: 02-24-2024 0.5 mg, intravenous, Every 5 min PRN, pain severe (7-10), first line, Starting on Wed02/24/24 at 1612, For 3 doses, Recovery (only), Max total of 4 mg regardless of dose. iohexol (OMNIPaque) 350 mg iodine/mL solution 75 mL (1 source) Start: 02-22-2024 End: 02-22-2024 75 mL, intravenous, Once in imaging, Starting on Wed02/22/24 at 2208, For 1 dose LORazepam 0.5 mg oral tablet (8 sources) Benzodiazepine Start: 01-24-2020 End: 01-27-2020 take 1 tablet by mouth three times daily as needed for anxiety Lorazepam 0.5 MG tablet Discontinued 0.5 mg PO THREE TIMES A DAY as needed for Anxiety 9 3 January 24, 2020 2:09pm January 26, 2020 1:00am January 27, 2020 1:03am Meperidine (1 source) Opioid Agonist Start: 02-24-2024 End: 02-24-2024 12.5 mg, intravenous, Every 10 min PRN, shivering, Starting on Angelita 02/24/24 at 1612, Recovery (only) methocarbamol 500 mg oral tablet (4 sources) Muscle Relaxant Start: 07-13-2024 End: 07-13-2024 take 1 dose by mouth once 750 mg, Oral, Once, 1 dose, On Angelita 07/13/24 at 2301 Start: 05-19-2024 End: 05-24-2024 take 1 tablet by mouth four times daily as needed for pain methocarbamol (ROBAXIN) 500 MG tablet Take 1 tablet by mouth 4 times daily as needed (Pain) 20 tablet 05/19/2024 05/24/2024 Active Start: 01-04-2024 End: 10-23-2024 take 1 dose by mouth once 500 mg, Oral, ONCE, 1 dose, On Wed05/19/24 at 0154 methylPREDNISolone 125 mg injection (3 sources) Corticosteroid Start: 06-15-2024 End: 06-15-2024 inject 125 mg by intramuscular injection once 125 mg, IntraMUSCular, ONCE, On Angelita 06/15/24 at 2144, For 1 dose Start: 01-29-2024 End: 02-04-2024 methylPREDNISolone (MEDROL, MUNIR,) 4 MG tablet Take by mouth. 1 kit 01/29/2024 02/04/2024 Active Start: 12-12-2023 End: 12-18-2023 methylPREDNISolone (MEDROL D OSEPACK) 4 MG tablet Take by mouth. 1 kit 12/12/2023 12/18/2023 Active 1 ml morphine sulfate 4 mg/ml injection (3 sources) Opioid Agonist Start: 07-13-2024 End: 07-13-2024 take 1 dose by mouth every hour 4 mg, IntraVENous, ONCE, 1 dose, On Angelita 07/13/24 at 2301, If oral and IV narcotics ordered, use oral first and only use IV if oral is ineffective or cannot take oral. Do Not give oral and IV within 1 hour of each other unless specifically ordered. Start: 02-24-2024 take 2 mg by mouth e very two hours as needed for pain 2 mg, intravenous, Every 2 hour PRN, pain breakthrough, use oral first and only use IV if oral is ineffective or cannot take oral. Use as first line if no PO med ordered., Starting on Angelita 02/24/24 at 1745 Start: 02-09-2024 End: 02-09-2024 inject 1 dose by intramuscular injection once 2 mg, IntraMUSCular, ONCE, 1 dose, On Wed02/09/24 at 0007 naproxen 500 mg oral tablet (15 sources) Nonsteroidal Anti-inflammatory Drug Start: 01-12-2024 End: 10-23-2024 take 1 tablet by mouth twice daily as needed for pain Naproxen (Naprosyn) 500 mg tablet Discontinued 500 mg PO TWICE A DAY as needed for pain January 12, 2024 12:00am October 23, 2024 3:49pm Start: 04-10-2023 End: 01-04-2024 take 1 tablet by mouth twice daily as needed for pain Naproxen (Naprosyn) 500 mg tablet Discontinued 500 mg PO TWICE A DAY as needed for pain May 18, 2023 1:00am January 04, 2024 5:56am Start: 06-15-2021 take 1 tablet by linda th twice daily Naproxen (Naprosyn) 500 mg tablet Active 500 MG PO TWICE A DAY June 15, 2021 9:04pm Start: 05-07-2015 End: 01-17-2018 take 1 tablet by mouth twice daily as needed Naproxen 500 MG tablet Discontinued 500 mg PO TWICE DAILY NEEDED May 07, 2015 1:00am January 17, 2018 7:41pm 2 ml ondansetron 2 mg/ml injection (2 sources) Serotonin-3 Receptor Antagonist Start: 07-13-2024 End: 07-13-2024 4 mg, IntraVENous, ONCE, 1 dose, On Angelita 07/13/24 at 2301 Start: 02-24-2024 take 1 tablet by linda th every eight hours as needed ondansetron (Zofran) tablet 4 mg 2 ml orphenadrine citrate 30 mg/ml injection (3 sources) Muscle Relaxant Start: 02-08-2024 End: 02-08-2024 inject 1 dose by intramuscular injection once 60 mg, IntraMUSCular, ONCE, 1 dose, On Wed02/08/24 at 2224 Start: 01-29-2024 End: 01-29-2024 inject 1 dose by intramuscular injection once 60 mg, IntraMUSCular, ONCE, 1 dose, On 01/29/24 at 2038 Start: 12-12-2023 End: 12-12-2023 inject 1 dose by intramuscular injection once 60 mg, IntraMUSCular, ONCE, 1 dose, On 12/12/23 at 1847 piperacillin 3000 mg / tazobactam 375 mg injection (2 sources) Penicillin-class Antibacterial, beta Lactamase Inhibitor Start: 02-23-2024 End: 02-25-2024 take 3.375 g intravenously every eight hours 3.375 g, intravenous, Administer over 4 Hours, Every 8 hours, First dose on Wed02/23/24 at 0500, Therapeutic Interchange to Zosyn Extended Infusion premix bag, Dosing of this medication varies based on severity of illness. Does this patient have sepsis or concern for sepsis (probable or documented infection plus systemic manifestations of infection)? No, Suspected Indication (Select all that apply): Cellulitis, Skin and Soft Tissue, Type of Therapy: Empiric, Indications: Cellulitis, Skin and Soft Tissue Start: 02-22-2024 End: 02-23-2024 3.375 g, intravenous, Admini ster over 0.5 Hours, Once, On Wed02/22/24 at 2330, For 1 dose, Bolus Dose premix bag, Dosing of this medication varies based on severity of illness. Does this patient have sepsis or concern for sepsis (probable or documented infection plus systemic manifestations of infection)? No, Suspected Indication (Select all that apply): Cellulitis, Skin and Soft Tissue, Type of Therapy: Empiric, Indications: Cellulitis, Skin and Soft Tissue 1000 ml sodium chloride 9 mg/ml injection (2 sources) Start: 07-13-2024 End: 07-14-2024 500 mL (5.9 mL/kg), IntraVEN ous, at 967.7 mL/hr, Administer over 31 Minutes, ONCE, On Wed07/13/24 at 2301, For 1 dose Start: 02-24-2024 End: 02-26-2024 take 100 mL by mouth every hour 100 mL/hr, intravenous, Continuous, Starting on Angelita 02/24/24 at 1815, For 2 days, Convert IV to saline lock when taking oral fluids. tiZANidine 4 mg oral tablet (3 sources) Central alpha-2 Adrenergic Agonist Start: 01-29-2024 End: 02-08-2024 take 1 tablet by mouth every eight hours as needed for pain tiZANidine (ZANAFLEX) 4 MG tablet Take 1 tablet by mouth every 8 hours as needed (muscle spasm/pain) 30 tablet 01/29/2024 02/08/2024 Start: 01-20-2024 End: 10-23-2024 take 1 capsule by mouth three times daily as needed Tizanidine 6 mg capsule Discontinued 6 mg PO THREE TIMES A DAY as needed for muscle spasticity 20 0 January 20, 2024 1:00am October 23, 2024 3:49pm tranexamic acid 650 mg oral tablet (2 sources) Antifibrinolytic Agent Start: 02-24-2024 End: 02-24-2024 take 1 dose by mouth every four hours 1,950 mg, oral, Once, On Angelita 02/24/24 at 1630, For 1 dose, Second dose administered 4 hours post procedure. Do not crush, chew, or split., Tranexamic Acid Indication: Surgical Prophylaxis: Spinal Start: 02-24-2024 End: 02-24-2024 1,950 mg, oral, Once, On Angelita 02/24/24 at 0600, For 1 dose, Preprocedure, 90 minutes prior to procedure Do not crush, chew, or split. 200 ml vancomycin 5 mg/ml injection (1 source) Glycopeptide Antibacterial Start: 02-23-2024 End: 02-25-2024 take 1000 mg intravenously every twelve hours 1,000 mg, intravenous, at 200 mL/hr, Administer over 60 Minutes, Every 12 hours, First dose (after last modification) on Wed02/23/24 at 1300, premix bag, Dosing of this medication varies based on severity of illness. Does this patient have sepsis or concern for sepsis (probable or documented infection plus systemic manifestations of infection)? No, Suspected Indication (Select all that apply): Cellulitis, Skin and Soft Tissue, Type of Therapy: Empiric, Indications: Cellulitis, Skin and Soft Tissue vancomycin (Vancocin) 1,250 mg in dextrose 5% IV 250 mL (1 source) Start: 02-23-2024 End: 02-23-2024 take 1250 mg intravenously every twelve hours 1,250 mg, intravenous, at 200 mL/hr, Administer over 75 Minutes, Every 12 hours, First dose on Wed02/23/24 at 0100, Mini-Bag Plus/ADD-Tridell bag, Dosing of this medication varies based on severity of illness. Does this patient have sepsis or concern for sepsis (probable or documented infection plus systemic manifestations of infection)? No, Suspected Indication (Select all that apply): Cellulitis, Skin and Soft Tissue, Type of Therapy: Empiric, Indications: Cellulitis, Skin and Soft Tissue Problems Active Problems Problem Classification Problem Date Documented Da te Episodic/Chronic Acquired foot deformities (8 sources) Left foot drop; Translations: [Foot drop, left foot] Onset: 10-02-2024 10-02-2024 Episodic Attention-deficit, conduct, and disruptive behavior disorders (8 sources) Attention deficit hyperactivity disorder; Translations: [Attention-deficit hyperactivity disorder, unspecified type] Onset: 06-28-2024 06-28-2024 Chronic Attention-deficit, conduct, and disruptive behavior disorders (2 sources) Attention-deficit hyperactivity disorder, unspecified type; Translations: [Attention-deficit hyperactivity disorder, unspecified type] Onset: 06-28-2024 Chronic Disorders of lipid metabolism (20 sources) Hyperlipidemia; Translations: [Hyperlipidemia, unspecified] Onset: 12-27-2022 12-27-2022 Chronic Disorders of teeth and jaw (14 sources) Toothache; Translations: [Other specified disorders of teeth and supporting structures] Onset: 06-28-2024 Resolved: 06-28-2024 06-23-2021 Episodic E Codes: Fall (16 sources) Fall; Translations: [Other fall from one level to another, initial encounter] Onset: 05-19-2024 Resolved: 06-28-2024 01-25-2020 Episodic Fever of unknown origin (14 sources) Fever; Translations: [Fever, unspecified] Onset: 06-28-2024 Resolved: 06-28-2024 06-20-2019 Episodic Immunizations and screening for infectious disease (14 sources) Suspected disease caused by 2019-nCoV; Translations: [Suspected 2019 novel coronavirus infection] Onset: 06-28-2024 Resolved: 06-28-2024 06-20-2019 Episodic Mood disorders (18 sources) Bipolar disorder; Translations: [Bipolar disorder, unspecified] Onset: 06-28-2024 08-20-2021 Chronic Nutritional deficiencies (20 sources) Vitamin D deficiency; Translations: [Vitamin D deficiency, unspecified] Onset: 12-27-2022 12-27-2022 Chronic Other connective tissue disease (13 sources) Pain in left lower limb; Translations: [Pain in left leg] Onset: 05-27-2017 06-28-2024 Episodic Other connective tissue disease (20 sources) Spasm of cervical paraspinous muscle; Translations: [Other muscle spasm] Onset: 01-04-2024 03-26-2021 Episodic Other connective tissue disease (1 source) Pain in right thigh; Translations: [Pain in right thigh] Onset: 02-02-2024 Episodic Other connective tissue disease (8 sources) Other symptoms and signs involving the musculoskeletal system; Translations: [Other musculoskeletal symptoms referable to limbs] Onset: 05-19-2024 05-19-2024 Episodic Other connective tissue disease (7 sources) Weakness of foot; Translations: [Other symptoms and signs involving the musculoskeletal system] Onset: 10-02-2024 10-02-2024 Episodic Other gastrointestinal disorders (7 sources) Neurogenic bowel; Translations: [Neurogenic bowel, not elsewhere classified] Onset: 10-02-2024 10-02-2024 Chronic Other gastrointestinal disorders (6 sources) Neurogenic bowel, not elsewhere classified; Translations: [Neurogenic bowel, not elsewhere classified] Onset: 10-02-2024 Chronic Other gastrointestinal disorders (1 source) Fecal incontinence with fecal urgency; Translations: [Full incontinence of feces] 01-29-2024 Episodic Other injuries and conditions due to external causes (9 sources) Abrasion and/or friction burn of multiple sites; Translations: [Unspecified multiple injuries, initial encounter] 01-25-2020 Episodic Other nervous system disorders (8 sources) Chronic pain; Translations: [Other chronic pain] Onset: 06-28-2024 06-28-2024 Chronic Other nervous system disorders (3 sources) Other chronic pain; Translations: [Other chronic pain] Onset: 06-28-2024 Chronic Other nervous system disorders (5 sources) Cervical myelopathy; Translations: [Disease of spinal cord, unspecified] 07-19-2024 Chronic Other nervous system disorders (1 source) Chronic low back pain; Translations: [Other chronic pain] 10-02-2024 Chronic Other nervous system disorders (4 sources) Disease of spinal cord, unspecified; Translations: [Disease of spinal cord, unspecified] Onset: 10-02-2024 Chronic Other nervous system disorders (4 sources) Paresthesia of skin; Translations: [Paresthesia of skin] Onset: 12-27-2022 Episodic Poisoning by other medications and drugs (1 source) Overdose of opiate; Translations: [Poisoning by unspecified narcotics, accidental (unintentional), initial encounter] 10-23-2024 Episodic Residual codes; unclassified (6 sources) Left against medical advice; Translations: [Procedure and treatment not carried out because of patient's decision for other reasons] 06-16-2022 Episodic Residual codes; unclassified (1 source) Unresponsive ; Translations: [Transient alteration of awareness] 10-23-2024 Episodic Skin and subcutaneous tissue infections (4 sources) Abscess of left axilla; Translations: [Cutaneous abscess of left axilla] Onset: 02-22-2024 02-25-2024 Episodic Spondylosis; intervertebral disc disorders; other back problems (20 sources) Other cervical disc degeneration, unspecified cervical region; Translations: [Prolapsed lumbar intervertebral disc] Onset: 01-04-2018 12-27-2022 Chronic Spondylosis; intervertebral disc disorders; other back problems (20 sources) Cervicalgia; Translations: [Low back pain] Onset: 03-21-2015 09-01-2014 Episodic Sprains and strains (20 sources) Strain of trapezius muscle; Translations: [Strain of other muscles, fascia and tendons at shoulder and upper arm level, left arm, initial encounter] Onset: 08-28-2023 06-13-2019 Episodic Substance-related disorders (5 sources) Smoker; Translations: [Nicotine dependence, unspecified, uncomplicated] Onset: 09-07-2014 06-28-2024 Chronic Suicide and intentional self-inflicted injury (7 sources) Suicidal thoughts; Translations: [Suicidal ideations] 08-30-2021 Episodic Superficial injury; contusion (14 sources) Contusion of chest; Translations: [Contusion of unspecified front wall of thorax, initial encounter] Onset: 06-28-2024 Resolved: 06-28-2024 01-25-2020 Episodic Syncope (11 sources) Syncope; Translations: [Syncope and collapse] Onset: 06-28-2024 Resolved: 06-28-2024 06-16-2022 Episodic Unclassified (1 source) Nicotine dependence, unspecified, [...] (1 source) Myalgia / M79.1(ICD-9) Onset: 05-27-2017 Unclassified (3 sources) Low back pain, unspecified; Translations: [Low back pain, unspecified] Onset: 12-14-2023 Unclassified (1 source) Speech finding 06-28-2024 Viral infection (12 sources) Disease caused by 2019-nCoV; Translations: [COVID-19] Onset: 06-28-2024 Resolved: 06-28-2024 08-20-2021 Episodic Past or Other Problems Problem Classification Problem Date Documented Da te Episodic/Chronic Diabetes mellitus without complication (20 sources) Prediabetes; Translations: [Prediabetes] Onset: 12-27-2022 12-27-2022 Episodic Other connective tissue disease (1 source) Myalgia; Translations: [Myalgia] Onset: 05-27-2017 Episodic Other connective tissue disease (5 sources) Tendonitis of left wrist; Translations: [Other enthesopathies, not elsewhere classified] Onset: 09-18-2013 Resolved: 06-28-2024 06-28-2024 Episodic Other connective tissue disease (1 source) Other muscle spasm; Translations: [Other muscle spasm] Onset: 11-14-2023 Episodic Other connective tissue disease (2 sources) Pain in left leg; Translations: [Pain in left leg] Onset: 06-28-2024 Episodic Other gastrointestinal disorders (1 source) Full incontinence of feces; Translations: [Full incontinence of feces] Onset: 01-29-2024 Episodic Other gastrointestinal disorders (1 source) Fecal urgency; Translations: [Fecal urgency] Onset: 01-29-2024 Episodic Other nervous system disorders (20 sources) Paresthesia of upper limb; Translations: [Paresthesia of skin] Onset: 12-27-2022 12-27-2022 Episodic Other nervous system disorders (6 sources) Speech finding; Translations: [Other speech disturbances] Onset: 06-28-2024 06-28-2024 Episodic Other nervous system disorders (2 sources) Other speech disturbances; Translations: [Other speech disturbances] Onset: 06-28-2024 Episodic Other non-traumatic joint disorders (20 sources) Shoulder pain; Translations: [Pain in unspecified shoulder] Onset: 12-27-2022 12-27-2022 Episodic Other nutritional; endocrine; and metabolic disorders (20 sources) Overweight; Translations: [Overweight] Onset: 12-27-2022 12-27-2022 Episodic Substance-related disorders (5 sources) Marijuana user; Translations: [Cannabis use, unspecified, uncomplicated] Onset: 09-04-2014 Resolved: 06-28-2024 06-28-2024 Episodic Unclassified (1 source) Pain in left hip; Translations: [Pain in left hip] Onset: 05-27-2017 Unclassified (1 source) Injury of brachial plexus, initial encounter; Translations: [Injury of brachial plexus, initial encounter] Onset: 01-26-2018 Unclassified (1 source) Strain of muscle, fascia and tendon at neck level, init; Translations: [Strain of muscle, fascia and tendon at neck level, init] Onset: 10-19-2017 Unclassified (1 source) Low back pain, unspecified; Translations: [Low back pain, unspecified] Onset: 12-14-2023 Unclassified (4 sources) Onset: 07-19-2024 Resolved: 10-02-2024 07-19-2024 Results Test Name Value Interpretation Reference Range Facility MR LUMBAR SPINE WO IV CONTRA STon 10-12-2024 MR LUMBAR SPINE WO IV CONTRAST Interpreted By: Eufemia Khan and Kaur Arashdeep STUDY: MRI of the lumbar spine without IV contrast; 10/12/2024 2:48 pm INDICATION: Signs/Symptoms:Ongoing low back, left leg pain and left leg weakness, neurogenic bowl. Please rule out worsening lumbar stenosis. ,M51.26 Other intervertebral disc displacement, lumbar region,M79.605 Pain in left leg,R29.898 Other symptoms and signs involving the musculoskeletal system,K59.2 Neurogenic bowel, not elsewhere classified,M21.372 Foot drop, left foot COMPARISON: MR lumbar spine 02/18/2024. ACCESSION NUMBER(S): [id number] ORDERING CLINICIAN: NIGHAT GRIFFIN TECHNIQUE: Multiplanar, multisequence imaging obtained through the lumbar spine without contrast FINDINGS: This report assumes 5 non rib-bearing lumbar vertebral bodies. The lowest intervertebral disc will be labeled L5-S1. Alignment: Grade 1 retrolisthesis of L5 over S1. Minimal grade 1 retrolisthesis of L3 over L4. Vertebrae and intervertebral discs: The vertebral bodies demonstrate expected height. Focal type 1 Modic changes involving posterosuperior corner of L5 adjacent to endplates. Type 2 Modic endplate changes are seen at L4-5 level. Schmorl node along superior endplate of L5. Mild disc space narrowing at L4-5 and L5-S1 levels. Spinal cord: Signal within the spinal cord is normal. The conus medullaris terminates at L2 vertebral level and appears unremarkable. L1-L2: There is no posterior disc contour abnormality. There is no significant spinal canal or neural foramen stenosis. Mild bilateral facet joint osteoarthropathy (right more than left). L2-L3: There is no posterior disc contour abnormality. There is no significant spinal canal or neural foramen stenosis. L3-L4: Mild posterior disc bulge, endplate osteophytic spurring and bilateral facet joint osteoarthropathy causing effacement of ventral thecal sac and mild narrowing of bilateral neural foramen (left > right). There is no spinal canal stenosis. Mild narrowing of bilateral lateral recesses. L4-L5: Circumferential disc bulge, with tiny central disc protrusion, endplate osteophytic spurring, ligamentum flavum hypertrophy and bilateral facet joint osteoarthropathy causing effacement of ventral thecal sac, mild canal stenosis and moderate to severe right and mild left neural foraminal narrowing. L5-S1: Circumferential disc bulge, left paracentral disc margin irregularity with hypointense T1 and T2 signal. This focus measures about 1.5 cm in craniocaudal dimension and 8 x 4 mm in transaxial dimension. There is effacement of left lateral recess with mild displacement of the traversing S1 nerve root as well as mild mass effect on the exiting L5 nerve root. Bilateral facet hypertrophy is noted. There is mild central canal stenosis. There is [id number] left and minimal right neural foraminal narrowing. Soft tissues: The paraspinal soft tissues are normal. IMPRESSION: When compared to prior MR 02/18/2024, 1. Stable postsurgical changes of left L5 laminectomy. Hypointense T1 and T2 signal at L5-S1 in the left paracentral region with mild mass effect on the L5 and S1 nerve roots. This focus appears slightly more pronounced as compared to prior study. This may reflect herniated disc material or postsurgical granulation tissue/scarring or a combination of these entities. Consider contrast-enhanced MRI for further assessment. 2. Additional multilevel lumbar spondylosis. I personally reviewed the images/study and I agree with the findings as stated by Silvia Hendrix MD. This study was interpreted at [facility], [place], [place]. MACRO: None Signed by: Eufemia Khan 10/13/2024 12:40 PM Dictation workstation: [id number] [facility] CBC W Auto Differential pane l (Bld)on 07-14-2024 Basophils (Bld) [#/Vol] 0.1 10*3/uL 0.0 - 0.2 K/uL [facility] Basophils/100 WBC (Bld) 0.6 % [facility] Eosinophils (Bld) [#/Vol] 0.7 10*3/uL 0.0 - 0.7 K/uL [facility] Eosinophils/100 WBC (Bld) 5.2 % [facility] Erythrocyte distribution width (RBC) [Ratio] 12 % 11.5 - 14.5 % [facility] Hematocrit (Bld) [Volume fraction] 48.2 % 42.0 - 52.0 % [facility] Hemoglobin (Bld) [Mass/Vol] 16.1 g/dL 14.0 - 18.0 g/dL [facility] Interpretation and review of laboratory results Abnormal [facility] Lymphocytes (Bld) [#/Vol] 4 10*3/uL 1.0 - 4.8 K/uL [facility] Lymphocytes/100 WBC (Bld) 31.1 % [facility] MCH (RBC) [Entitic mass] 31.2 pg 27.0 - 31.3 pg [facility] MCHC (RBC) [Mass/Vol] 33.4 % 33.0 - 37.0 % [facility] MCV (RBC) [Entitic vol] 93.4 fL High 79.0 - 92.2 fL [facility] Monocytes (Bld) [#/Vol] 1.1 10*3/uL High 0.2 - 0.8 K/uL [facility] Monocytes/100 WBC (Bld) 8.5 % [facility] Neutrophils (Bld) [#/Vol] 7.1 10*3/uL High 1.4 - 6.5 K/uL [facility] Platelets (Bld) [#/Vol] 312 10*3/uL 130 - 400 K/uL [facility] RBC (Bld) [#/Vol] 5.16 10*6/uL [facility] Segmented neutrophils/100 WBC (Bld) 54.3 % [facility] WBC (Bld) [#/Vol] 13 10*3/uL High 4.8 - 10.8 K/uL [facility] CT Kidney WO contraston 05-0 1. No acute intra-ab dominal or pelvic process. No urinary calculi or obstruction. 2. Focal moderate disc degenerative change L4-L5. [facility] RADIOLOGY EXAMINATION: CT OF THE ABDOMEN AND PELVIS WITHOUT CONTRAST 07/13/2024 11:37 pm TECHNIQUE: CT of the abdomen and pelvis was performed without the administration of intravenous contrast. Oral contrast was administered. Multiplanar reformatted images are provided for review. Automated exposure control, iterative reconstruction, and/or weight based adjustment of the mA/kV was utilized to reduce the radiation dose to as low as reasonably achievable. COMPARISON: None. HISTORY: ORDERING SYSTEM PROVIDED HISTORY: left flank pain TECHNOLOGIST PROVIDED HISTORY: Reason for exam:->left flank pain Decision Support Exception - unselect if not a suspected or confirmed emergency medical condition->Emergency Medical Condition (MA) What reading provider will be dictating this exam?->CRC FINDINGS: Lower Chest: Negative. Organs: Liver, gallbladder, biliary tree, bilateral adrenal glands, bilateral kidneys, spleen and pancreas are normal. GI/Bowel: No ileus or obstruction. No inflammatory bowel process. Normal appendix right lower quadrant. Pelvis: No mass or adenopathy. No bladder calculi. Peritoneum/Retroperitoneum: Negative. Bones/Soft Tissues: No acute osseous or body wall soft tissue abnormalities. Focal moderate disc degenerative change L4-L5. [facility] RADIOLOGY Smith Bullock MD - 07/14/2024 EXAMINATION: CT OF THE ABDOMEN AND PELVIS WITHOUT CONTRAST 07/13/2024 11:37 pm TECHNIQUE: CT of the abdomen and pelvis was performed without the administration of intravenous contrast. Oral contrast was administered. Multiplanar reformatted images are provided for review. Automated exposure control, iterative reconstruction, and/or weight based adjustment of the mA/kV was utilized to reduce the radiation dose to as low as reasonably achievable. COMPARISON: None. HISTORY: ORDERING SYSTEM PROVIDED HISTORY: left flank pain TECHNOLOGIST PROVIDED HISTORY: Reason for exam:->left flank pain Decision Support Exception - unselect if not a suspected or confirmed emergency medical condition->Emergency Medical Condition (MA) What reading provider will be dictating this exam?->CRC FINDINGS: Lower Chest: Negative. Organs: Liver, gallbladder, biliary tree, bilateral adrenal glands, bilateral kidneys, spleen and pancreas are normal. GI/Bowel: No ileus or obstruction. No inflammatory bowel process. Normal appendix right lower quadrant. Pelvis: No mass or adenopathy. No bladder calculi. Peritoneum/Retroperitoneum: Negative. Bones/Soft Tissues: No acute osseous or body wall soft tissue abnormalities. Focal moderate disc degenerative change L4-L5. IMPRESSION: 1. No acute intra-abdominal or pelvic process. No urinary calculi or obstruction. 2. Focal moderate disc degenerative change L4-L5. [facility] WO contrastOrdered By: Smith Bullock on 07-14-2024 [facility] [employer] Work Phone: [place] Drugs of Abuse Panelon Drug Screen Comment see below Normal [facility] Comment on above: Result Comment: This method is a screening test to detect only these drug classes as part of a medical workup. Confirmatory testing by another method should be ordered if clinically indicated. Performed By: #### U DRGS #### [facility] [address] [place] [address] UR Cannabinoids Screen Positive Abnormal Negative < [facility] Comment on above: Performed By: #### U DRGS #### [facility] [address] [place] [address] UR Fentanyl Screen Negative Normal Negative < [facility] Comment on above: Performed By: #### U DRGS #### [facility] [address] [place] [address] UR Amphetamines Screen Negative Normal Negative < [facility] Comment on above: Performed By: #### U DRGS #### [facility] [address] [place] [address] UR Barbiturates Screen Negative Normal Negative < [facility] Comment on above: Performed By: #### U DRGS #### [facility] [address] [place] [address] UR Benzo Screen Negative Normal Negative < [facility] Comment on above: Performed By: #### U DRGS #### [facility] [address] [place] [address] UR Cocaine Screen Negative Normal Negative < [facility] Comment on above: Performed By: #### U DRGS #### [facility] [address] [place] [address] UR Methadone Screen Negative Normal Negative < [facility] Comment on above: Performed By: #### U DRGS #### [facility] [address] [place] [address] UR Opiates Screen Negative Normal Negative < [facility] Comment on above: Performed By: #### U DRGS #### [facility] [address] [place] [address] UR Oxycodone Screen Negative Normal Negative < [facility] Comment on above: Performed By: #### U DRGS #### [facility] [address] [place] [address] UR PCP Screen Negative Normal Negative < [facility] Comment on above: Performed By: #### U DRGS #### [facility] [address] [place] [address] UR Propoxyphene Screen Negative Normal Negative < [facility] Comment on above: Performed By: #### U DRGS #### [facility] [address] [place] [address] Urinalysis with Reflex to Cu ltureon 07-14-2024 Glucose Test strip (U) [Mass/Vol] Negative Negative mg/dL [facility] Ketones (U) [Mass/Vol] Negative Negative mg/dL [facility] Protein (U) [Mass/Vol] Negative Negative mg/dL [facility] Urine Reflex to Culture Not Indicated [facility] Urobilinogen Qn (U) 0.2 NINF [facility] Urinalysis, reflex to cultur stephen 07-14-2024 Bilirubin Ql (U) Negative Normal Negative [facility] Comment on above: Performed By: #### C BCWD #### [facility] [address] [place] [address] Clarity (U) Clear Normal Clear [facility] Comment on above: Performed By: #### C BCWD #### [facility] [address] [place] [address] Color (U) Yellow Normal Straw/Trumbull [facility] Comment on above: Performed By: #### C BCWD #### [facility] [address] [place] [address] Glucose Ql (U) Negative Normal Negative [facility] Comment on above: Performed By: #### C BCWD #### [facility] [address] [place] [address] Hemoglobin Ql (U) Negative Normal Negative [facility] Comment on above: Performed By: #### C BCWD #### [facility] [address] [place] [address] Ketones Ql (U) Negative Normal Negative [facility] Comment on above: Performed By: #### C BCWD #### [facility] [address] [place] [address] Leukocyte esterase Test strip Ql (U) Negative Normal Negative [facility] Comment on above: Performed By: #### C BCWD #### [facility] [address] [place] [address] Nitrite Ql (U) Negative Normal Negative [facility] Comment on above: Performed By: #### C BCWD #### [facility] [address] [place] [address] pH (U) 6.5 [pH] Normal 5.0-9.0 [facility] Comment on above: Performed By: #### C BCWD #### [facility] [address] [place] [address] Protein Ql (U) Negative Normal Negative [facility] Comment on above: Performed By: #### C BCWD #### [facility] [address] [place] [address] Specific gravity (U) [Rel density] 1.026 Normal 1.005-1.03 [facility] Comment on above: Performed By: #### C BCWD #### [facility] [address] [place] [address] Urine Reflexed to Culture Not Indicated Normal [facility] Comment on above: Performed By: #### C BCWD #### [facility] [address] [place] [address] Urobilinogen Qn (U) 0.2 {Bassam'U}/dL Normal < 2.0 [facility] Comment on above: Performed By: #### C BCWD #### [facility] [address] [place] [address] Urine Drug Screenon 07-15-19 25 Amphetamines Ql (U) Negative Negative <1000 ng/mL [facility] Barbiturates Screen Ql (U) Negative Negative < 200 ng/mL [facility] Benzodiazepines Ql (U) Negative Negative < 200 ng/mL [facility] Cannabinoids Screen Ql (U) Positive Abnormal Negative < 50 ng/mL [facility] Cocaine Ql (U) Negative Negative < 300 ng/mL [facility] Drug screen comment (U) [Interp] see below [facility] Comment on above: This method is a scr eening test to detect only these drug classes as part of a medical workup. Confirmatory testing by another method should be ordered if clinically indicated. FENTANYL SCREEN, URINE Negative Negative < 50 ng/mL [facility] Interpretation and review of laboratory results Abnormal [facility] Methadone Screen Ql (U) Negative Negative <300 ng/mL [facility] Opiates Screen Ql (U) Negative Negative < 300 ng/mL [facility] oxyCODONE Ql (U) Negative Negative <100 ng/mL [facility] Phencyclidine Ql (U) Negative Negative < 25 ng/mL [facility] Propoxyphene Screen Ql (U) Negative Negative <300 ng/mL [facility] CBC With Platelet and Differ entialon 07-13-2024 Basophils (Bld) [#/Vol] 0.1 10*3/uL Normal 0.0-0.2 [facility] Comment on above: Performed By: #### C BCWD #### [facility] [address] [place] [address] Basophils/100 WBC (Bld) 0.6 % Normal [facility] Comment on above: Performed By: #### C BCWD #### [facility] [address] [place] [address] Eosinophils (Bld) [#/Vol] 0.7 10*3/uL Normal 0.0-0.7 [facility] Comment on above: Performed By: #### C BCWD #### [facility] [address] [place] [address] Eosinophils/100 WBC (Bld) 5.2 % Normal [facility] Comment on above: Performed By: #### C BCWD #### [facility] [address] [place] [address] Erythrocyte distribution width (RBC) [Ratio] 12.0 % Normal 11.5-14.5 [facility] Comment on above: Performed By: #### C BCWD #### [facility] [address] [place] [address] Hematocrit (Bld) [Volume fraction] 48.2 % Normal 42.0-52.0 [facility] Comment on above: Performed By: #### C BCWD #### [facility] [address] [place] [address] Hemoglobin (Bld) [Mass/Vol] 16.1 g/dL Normal 14.0-18.0 [facility] Comment on above: Performed By: #### C BCWD #### [facility] [address] [place] [address] Lymphocytes (Bld) [#/Vol] 4.0 10*3/uL Normal 1.0-4.8 [facility] Comment on above: Performed By: #### C BCWD #### [facility] [address] [place] [address] Lymphocytes/100 WBC (Bld) 31.1 % Normal [facility] Comment on above: Performed By: #### C BCWD #### [facility] [address] [place] [address] MCH (RBC) [Entitic mass] 31.2 pg Normal 27.0-31.3 [facility] Comment on above: Performed By: #### C BCWD #### [facility] [address] [place] [address] MCHC 33.4 % Normal 33.0-37.0 [facility] Comment on above: Performed By: #### C BCWD #### [facility] [address] [place] [address] MCV (RBC) [Entitic vol] 93.4 fL Critically high 79.0-92.2 [facility] Comment on above: Performed By: #### C BCWD #### [facility] [address] [place] [address] Monocytes (Bld) [#/Vol] 1.1 10*3/uL Critically high 0.2-0.8 [facility] Comment on above: Performed By: #### C BCWD #### [facility] [address] [place] [address] Monocytes/100 WBC (Bld) 8.5 % Normal [facility] Comment on above: Performed By: #### C BCWD #### [facility] [address] [place] [address] Neutrophils (Bld) [#/Vol] 7.1 10*3/uL Critically high 1.4-6.5 [facility] Comment on above: Performed By: #### C BCWD #### [facility] [address] [place] [address] Neutrophils/100 WBC (Bld) 54.3 % Normal [facility] Comment on above: Performed By: #### C BCWD #### [facility] [address] [place] [address] Platelets (Bld) [#/Vol] 312 10*3/uL Normal 130-400 [facility] Comment on above: Performed By: #### C BCWD #### [facility] [address] [place] [address] RBC (Bld) [#/Vol] 5.16 10*6/uL Normal 4.70-6.10 [facility] Comment on above: Performed By: #### C BCWD #### [facility] [address] [place] [address] WBC (Bld) [#/Vol] 13.0 10*3/uL Critically high 4.8-10.8 [facility] Comment on above: Performed By: #### C BCWD #### [facility] [address] [place] [address] CT KIDNEY WO CONTRASTon 05-0 CT KIDNEY WO CONTRAST EXAMINATION: CT OF THE ABDOMEN AND PELVIS WITHOUT CONTRAST 07/13/2024 11:37 pm TECHNIQUE: CT of the abdomen and pelvis was performed without the administration of intravenous contrast. Oral contrast was administered. Multiplanar reformatted images are provided for review. Automated exposure control, iterative reconstruction, and/or weight based adjustment of the mA/kV was utilized to reduce the radiation dose to as low as reasonably achievable. COMPARISON: None. HISTORY: ORDERING SYSTEM PROVIDED HISTORY: left flank pain TECHNOLOGIST PROVIDED HISTORY: Reason for exam:->left flank pain Decision Support Exception - unselect if not a suspected or confirmed emergency medical condition->Emergency Medical Condition (MA) What reading provider will be dictating this exam?->CRC FINDINGS: Lower Chest: Negative. Organs: Liver, gallbladder, biliary tree, bilateral adrenal glands, bilateral kidneys, spleen and pancreas are normal. GI/Bowel: No ileus or obstruction. No inflammatory bowel process. Normal appendix right lower quadrant. Pelvis: No mass or adenopathy. No bladder calculi. Peritoneum/Retroperitoneum: Negative. Bones/Soft Tissues: No acute osseous or body wall soft tissue abnormalities. Focal moderate disc degenerative change L4-L5. IMPRESSION: 1. No acute intra-abdominal or pelvic process. No urinary calculi or obstruction. 2. Focal moderate disc degenerative change L4-L5. Interpreted by: Smith Bullock MD Signed by: Smith Bullock MD 07/14/[address] [facility] CT Kidney WO contraston 05-0 Radiology Study observation (narrative) [facility] Comprehensive Metabolic Pane ashok 07-13-2024 Albumin [Mass/Vol] 4.7 g/dL Critically high 3.5-4.6 M [facility] Comment on above: Performed By: #### L ACID #### [facility] [address] [place] [address] ALP [Catalytic activity/Vol] 81 U/L Normal 35-104 [facility] Comment on above: Performed By: #### L ACID #### [facility] [address] [place] [address] ALT [Catalytic activity/Vol] 32 U/L Normal 0-41 [facility] Comment on above: Performed By: #### L ACID #### [facility] [address] [place] [address] Anion gap [Moles/Vol] 12 mmol/L Normal 9-15 [facility] Comment on above: Performed By: #### L ACID #### [facility] [address] [place] [address] AST [Catalytic activity/Vol] 22 U/L Normal 0-40 [facility] Comment on above: Performed By: #### L ACID #### [facility] [address] [place] [address] Bilirubin [Mass/Vol] mg/dL Normal 0.2-0.7 [facility] Comment on above: Performed By: #### L ACID #### [facility] [address] [place] [address] Calcium [Mass/Vol] 9.6 mg/dL Normal 8.5-9.9 [facility] Comment on above: Performed By: #### L ACID #### [facility] [address] [place] [address] Chloride [Moles/Vol] 99 mmol/L Normal 95-107 [facility] Comment on above: Performed By: #### L ACID #### [facility] [address] [place] [address] CO2 [Moles/Vol] 28 mmol/L Normal 20-31 [facility] Comment on above: Performed By: #### L ACID #### [facility] [address] [place] [address] Creatinine [Mass/Vol] 1.08 mg/dL Normal 0.70-1.20 [facility] Comment on above: Performed By: #### L ACID #### [facility] [address] [place] [address] GFR 87.4 Normal >60 [facility] Comment on above: Result Comment: Pedi atric calculator link https://www.kidney.org/professionals/kdoqi/gfr_calculatorped Effective Dec 15, 2021 These results are not intended for use in patients <18 years of age. eGFR results are calculated without a race factor using the 2020 CKD-EPI equation. Careful clinical correlation is recommended, particularly when comparing to results calculated using previous equations. The CKD-EPI equation is less accurate in patients with extremes of muscle mass, extra-renal metabolism of creatinine, excessive creatinine ingestion, or following therapy that affects renal tubular secretion. Performed By: #### L ACID #### [facility] [address] [place] [address] Globulin (S) [Mass/Vol] 3.2 g/dL Normal 2.3-3.5 [facility] Comment on above: Performed By: #### L ACID #### [facility] [address] [place] [address] Glucose [Mass/Vol] 87 mg/dL Normal 70-99 [facility] Comment on above: Performed By: #### L ACID #### [facility] [address] [place] [address] Potassium [Moles/Vol] 4.2 mmol/L Normal 3.4-4.9 [facility] Comment on above: Performed By: #### L ACID #### [facility] [address] [place] [address] Protein [Mass/Vol] 7.9 g/dL Normal 6.3-8.0 [facility] Comment on above: Performed By: #### L ACID #### [facility] [address] [place] [address] Sodium [Moles/Vol] 139 mmol/L Normal 135-144 [facility] Comment on above: Performed By: #### L ACID #### [facility] [address] [place] [address] Urea nitrogen [Mass/Vol] 25 mg/dL Critically high 6-20 [facility] Comment on above: Performed By: #### L ACID #### [facility] [address] [place] [address] Comprehensive metabolic 2000 panelon 07-13-2024 Albumin [Mass/Vol] 4.7 g/dL High 3.5 - 4.6 g/dL [facility] ALP [Catalytic activity/Vol] 81 U/L 35 - 104 U/L [facility] ALT [Catalytic activity/Vol] 32 U/L 0 - 41 U/L [facility] Anion gap [Moles/Vol] 12 mmol/L [facility] AST [Catalytic activity/Vol] 22 U/L 0 - 40 U/L [facility] Bilirubin [Mass/Vol] mg/dL 0.2 - 0.7 mg/dL [facility] Calcium [Mass/Vol] 9.6 mg/dL 8.5 - 9.9 mg/dL [facility] Chloride [Moles/Vol] 99 mmol/L [facility] CO2 [Moles/Vol] 28 mmol/L [facility] Creatinine [Mass/Vol] 1.08 mg/dL 0.70 - 1.20 mg/dL [facility] GFR/1.73 sq M.predicted among non-blacks MDRD (S/P/Bld) [Vol rate/Area] 87.4 mL/min/{1.73_m2} 60 - PINF [facility] Comment on above: Pediatric calculator link https://www.kidney.org/professionals/kdoqi/gfr_calculatorped Effective Dec 15, 2021 These results are not intended for use in patients <18 years of age. eGFR results are calculated without a race factor using the 2020 CKD-EPI equation. Careful clinical correlation is recommended, particularly when comparing to results calculated using previous equations. The CKD-EPI equation is less accurate in patients with extremes of muscle mass, extra-renal metabolism of creatinine, excessive creatinine ingestion, or following therapy that affects renal tubular secretion. Globulin (S) [Mass/Vol] 3.2 g/dL 2.3 - 3.5 g/dL [facility] Glucose [Mass/Vol] 87 mg/dL 70 - 99 mg/dL [facility] Interpretation and review of laboratory results Abnormal [facility] Potassium [Moles/Vol] 4.2 mmol/L [facility] Protein [Mass/Vol] 7.9 g/dL 6.3 - 8.0 g/dL [facility] Sodium [Moles/Vol] 139 mmol/L [facility] Urea nitrogen [Mass/Vol] 25 mg/dL High 6 - 20 mg/dL [facility] Lactate (BldV) [Moles/Vol]on 07-13-2024 [facility] Lactic Acidon 07-13-2024 Lactate (BldV) [Moles/Vol] 1.3 mmol/L 0.5 - 2.2 mmol/L [facility] Lactate [Moles/Vol] 1.3 mmol/L Normal 0.5-2.2 [facility] Comment on above: Performed By: #### L ACID #### [facility] [address] [place] [address] Procalcitoninon 07-13-2024 Procalcitonin IA [Mass/Vol] 0.03 ng/mL 0.00 - 0.15 ng/mL [facility] Comment on above: Suspected Sepsis: Low likelihood of sepsis <.50 ng/mL Increased likelihood of sepsis 0.50-2.00 ng/mL Antibiotics encouraged High risk of sepsis/shock >2.00 ng/mL Antibiotics strongly encouraged Suspected Lower Respiratory Tract Infections: Low likelihood of bacterial infection <0.24 ng/mL Increased likelihood of bacterial infection >0.24 ng/mL Antibiotics encouraged With successful antibiotic therapy, PCT levels should decrease rapidly. (Half-life of 24 to 36 hours.) Procalcitonin values from samples collected within the first 6 hours of systemic infection may still be low. Retesting may be indicated. Values from day 1 and day 4 can be entered into the Change in Procalcitonin Calculator to determine the patient's Mortality Risk Prognosis (www.uafize-nxk-akuyrqaqcl.com) In healthy neonates, plasma Procalcitonin (PCT) concentrations increase gradually after , reaching peak values at about 24 hours of age then decrease to normal values below 0.5 ng/mL by 48-72 hours of age. Procalcitonin 0.03 ng/mL Normal 0.00-0.15 [facility] Comment on above: Result Comment: Susp ected Sepsis: Low likelihood of sepsis <.50 ng/mL Increased likelihood of sepsis 0.50-2.00 ng/mL Antibiotics encouraged High risk of sepsis/shock >2.00 ng/mL Antibiotics strongly encouraged Suspected Lower Respiratory Tract Infections: Low likelihood of bacterial infection <0.24 ng/mL Increased likelihood of bacterial infection >0.24 ng/mL Antibiotics encouraged With successful antibiotic therapy, PCT levels should decrease rapidly. (Half-life of 24 to 36 hours.) Procalcitonin values from samples collected within the first 6 hours of systemic infection may still be low. Retesting may be indicated. Values from day 1 and day 4 can be entered into the Change in Procalcitonin Calculator to determine the patient's Mortality Risk Prognosis (www.nxxchm-fmg-pjffsmdrul.[employer]) In healthy neonates, plasma Procalcitonin (PCT) concentrations increase gradually after , reaching peak values at about 24 hours of age then decrease to normal values below 0.5 ng/mL by 48-72 hours of age. Performed By: #### P ROCT #### [facility] [address] [place] [address] Procalcitonin IA [Mass/Vol]o n 07-13-2024 [facility] XR CERVICAL SPINE 2-3 VIEWSo n 06-06-2024 XR CERVICAL SPINE 2-3 VIEWS Interpreted By: Sha Foster, STUDY: XR CERVICAL SPINE 2-3 VIEWS; 06/06/2024 11:08 am INDICATION: Signs/Symptoms:Pain. ACCESSION NUMBER(S): [id number] ORDERING CLINICIAN: SHA FOSTER FINDINGS: AP lateral x-rays of the cervical spine show a C5-6 and C6-7 anterior cervical fusion. Cages plate and screws are in good position without any evidence of hardware failure. Cervical lordosis is maintained. There is no significant degenerative changes above the level of fusion there is mild degenerative changes at C7-T1. There are no fractures. There is no soft tissue abnormalities. There is no instability. Signed by: Sha Foster 06/06/2024 3:56 PM Dictation workstation: [id number] [facility] XR Cervical spine 2 or 3 Vie wson 06-06-2024 Interpreted By: Sha Chacon, STUDY: XR CERVICAL SPINE 2-3 VIEWS; 06/06/2024 11:08 am INDICATION: Signs/Symptoms:Pain. ACCESSION NUMBER(S): [id number] ORDERING CLINICIAN: SHA FOSTER FINDINGS: AP lateral x-rays of the cervical spine show a C5-6 and C6-7 anterior cervical fusion. Cages plate and screws are in good position without any evidence of hardware failure. Cervical lordosis is maintained. There is no significant degenerative changes above the level of fusion there is mild degenerative changes at C7-T1. There are no fractures. There is no soft tissue abnormalities. There is no instability. Signed by: Sha Foster 06/06/2024 3:56 PM Dictation workstation: [id number] Sha Foster MD - 06/06/2024 Interpreted By: Sha Foster, STUDY: XR CERVICAL SPINE 2-3 VIEWS; 06/06/2024 11:08 am INDICATION: Signs/Symptoms:Pain. ACCESSION NUMBER(S): [id number] ORDERING CLINICIAN: SHA FOSTER FINDINGS: AP lateral x-rays of the cervical spine show a C5-6 and C6-7 anterior cervical fusion. Cages plate and screws are in good position without any evidence of hardware failure. Cervical lordosis is maintained. There is no significant degenerative changes above the level of fusion there is mild degenerative changes at C7-T1. There are no fractures. There is no soft tissue abnormalities. There is no instability. Signed by: Sha Foster 06/06/2024 3:56 PM Dictation workstation: [id number] [facility] Work Phone: [facility] Work Phone: Radiology Study observation (narrative) [facility] Work Phone: CT CERVICAL SPINE WO CONTRAS Ton 05-19-2024 CT CERVICAL SPINE WO CONTRAST EXAMINATION: CT OF THE CERVICAL SPINE WITHOUT CONTRAST 05/19/2024 2:17 am TECHNIQUE: CT of the cervical spine was performed without the administration of intravenous contrast. Multiplanar reformatted images are provided for review. Automated exposure control, iterative reconstruction, and/or weight based adjustment of the mA/kV was utilized to reduce the radiation dose to as low as reasonably achievable. COMPARISON: None. HISTORY: ORDERING SYSTEM PROVIDED HISTORY: fall, recent surg TECHNOLOGIST PROVIDED HISTORY: Reason for exam:->fall, recent surg Decision Support Exception - unselect if not a suspected or confirmed emergency medical condition->Emergency Medical Condition ([place]) What reading provider will be dictating this exam?->CRC FINDINGS: BONES/ALIGNMENT: Status post C5-C7 anterior fixation and discectomy. There is no acute fracture or traumatic malalignment. DEGENERATIVE CHANGES: No severe osseous spinal canal stenosis. SOFT TISSUES: There is no prevertebral soft tissue swelling. IMPRESSION: No acute abnormality of the cervical spine. Interpreted by: Dorothy Cruz MD Signed by: Dorothy Cruz MD 05/19/[address] [facility] CT Cervical spine WO armando ton 05-19-2024 No acute abnormality of the cervical spine. [facility] EXAMINATION: CT OF THE CERVICAL SPINE WITHOUT CONTRAST 05/19/2024 2:17 am TECHNIQUE: CT of the cervical spine was performed without the administration of intravenous contrast. Multiplanar reformatted images are provided for review. Automated exposure control, iterative reconstruction, and/or weight based adjustment of the mA/kV was utilized to reduce the radiation dose to as low as reasonably achievable. COMPARISON: None. HISTORY: ORDERING SYSTEM PROVIDED HISTORY: fall, recent surg TECHNOLOGIST PROVIDED HISTORY: Reason for exam:->fall, recent surg Decision Support Exception - unselect if not a suspected or confirmed emergency medical condition->Emergency Medical Condition (MA) What reading provider will be dictating this exam?->CRC FINDINGS: BONES/ALIGNMENT: Status post C5-C7 anterior fixation and discectomy. There is no acute fracture or traumatic malalignment. DEGENERATIVE CHANGES: No severe osseous spinal canal stenosis. SOFT TISSUES: There is no prevertebral soft tissue swelling. [facility] Dorothy Cruz MD - 05/19/2024 EXAMINATION: CT OF THE CERVICAL SPINE WITHOUT CONTRAST 05/19/2024 2:17 am TECHNIQUE: CT of the cervical spine was performed without the administration of intravenous contrast. Multiplanar reformatted images are provided for review. Automated exposure control, iterative reconstruction, and/or weight based adjustment of the mA/kV was utilized to reduce the radiation dose to as low as reasonably achievable. COMPARISON: None. HISTORY: ORDERING SYSTEM PROVIDED HISTORY: fall, recent surg TECHNOLOGIST PROVIDED HISTORY: Reason for exam:->fall, recent surg Decision Support Exception - unselect if not a suspected or confirmed emergency medical condition->Emergency Medical Condition (MA) What reading provider will be dictating this exam?->CRC FINDINGS: BONES/ALIGNMENT: Status post C5-C7 anterior fixation and discectomy. There is no acute fracture or traumatic malalignment. DEGENERATIVE CHANGES: No severe osseous spinal canal stenosis. SOFT TISSUES: There is no prevertebral soft tissue swelling. IMPRESSION: No acute abnormality of the cervical spine. [facility] CT Cervical spine WO contras tOrdered By: Dorothy Cruz on 05-19-2024 [facility] Work Phone: CT LUMBAR SPINE WO CONTRASTo n 05-19-2024 CT LUMBAR SPINE WO CONTRAST EXAMINATION: CT OF THE LUMBAR SPINE WITHOUT CONTRAST 05/19/2024 TECHNIQUE: CT of the lumbar spine was performed without the administration of intravenous contrast. Multiplanar reformatted images are provided for review. Adjustment of mA and/or kV according to patient size was utilized. Automated exposure control, iterative reconstruction, and/or weight based adjustment of the mA/kV was utilized to reduce the radiation dose to as low as reasonably achievable. COMPARISON: None HISTORY: ORDERING SYSTEM PROVIDED HISTORY: fall, left sided radicular pain TECHNOLOGIST PROVIDED HISTORY: Reason for exam:->fall, left sided radicular pain Decision Support Exception - unselect if not a suspected or confirmed emergency medical condition->Emergency Medical Condition (MA) What reading provider will be dictating this exam?->CRC FINDINGS: BONES/ALIGNMENT: There is normal alignment of the spine. The vertebral body heights are maintained. No osseous destructive lesion is seen. DEGENERATIVE CHANGES: Degenerative disc disease at L4-L5 and L5-S1, with vacuum phenomenon. There is [id number] bilateral neural foraminal stenosis at these levels. SOFT TISSUES/RETROPERITONEUM: No paraspinal mass is seen. IMPRESSION: 1. No acute osseous abnormality of the lumbar spine. 2. Degenerative disc disease at L4-L5 and L5-S1. Interpreted by: Dorothy Cruz MD Signed by: Dorothy Cruz MD 05/19/[address] [facility] CT Lumbar spine WO contrasto n 05-19-2024 1. No acute osseous abnormality of the lumbar spine. 2. Degenerative disc disease at L4-L5 and L5-S1. [facility] EXAMINATION: CT OF THE LUMBAR SPINE WITHOUT CONTRAST 05/19/2024 TECHNIQUE: CT of the lumbar spine was performed without the administration of intravenous contrast. Multiplanar reformatted images are provided for review. Adjustment of mA and/or kV according to patient size was utilized. Automated exposure control, iterative reconstruction, and/or weight based adjustment of the mA/kV was utilized to reduce the radiation dose to as low as reasonably achievable. COMPARISON: None HISTORY: ORDERING SYSTEM PROVIDED HISTORY: fall, left sided radicular pain TECHNOLOGIST PROVIDED HISTORY: Reason for exam:->fall, left sided radicular pain Decision Support Exception - unselect if not a suspected or confirmed emergency medical condition->Emergency Medical Condition ([place]) What reading provider will be dictating this exam?->CRC FINDINGS: BONES/ALIGNMENT: There is normal alignment of the spine. The vertebral body heights are maintained. No osseous destructive lesion is seen. DEGENERATIVE CHANGES: Degenerative disc disease at L4-L5 and L5-S1, with vacuum phenomenon. There is [id number] bilateral neural foraminal stenosis at these levels. SOFT TISSUES/RETROPERITONEUM: No paraspinal mass is seen. [facility] Dorothy Cruz MD - 05/19/2024 EXAMINATION: CT OF THE LUMBAR SPINE WITHOUT CONTRAST 05/19/2024 TECHNIQUE: CT of the lumbar spine was performed without the administration of intravenous contrast. Multiplanar reformatted images are provided for review. Adjustment of mA and/or kV according to patient size was utilized. Automated exposure control, iterative reconstruction, and/or weight based adjustment of the mA/kV was utilized to reduce the radiation dose to as low as reasonably achievable. COMPARISON: None HISTORY: ORDERING SYSTEM PROVIDED HISTORY: fall, left sided radicular pain TECHNOLOGIST PROVIDED HISTORY: Reason for exam:->fall, left sided radicular pain Decision Support Exception - unselect if not a suspected or confirmed emergency medical condition->Emergency Medical Condition ([place]) What reading provider will be dictating this exam?->CRC FINDINGS: BONES/ALIGNMENT: There is normal alignment of the spine. The vertebral body heights are maintained. No osseous destructive lesion is seen. DEGENERATIVE CHANGES: Degenerative disc disease at L4-L5 and L5-S1, with vacuum phenomenon. There is qpfq-[id number] bilateral neural foraminal stenosis at these levels. SOFT TISSUES/RETROPERITONEUM: No paraspinal mass is seen. IMPRESSION: 1. No acute osseous abnormality of the lumbar spine. 2. Degenerative disc disease at L4-L5 and L5-S1. [facility] No Panel Informationon 05-19 Radiology Study observation (narrative) [facility] XR HIP 2-3 VW W PELVIS LEFTo n 05-18-2024 XR HIP 2-3 VW W PELVIS LEFT EXAMINATION: ONE XRAY VIEW OF THE PELVIS AND TWO XRAY VIEWS LEFT HIP 05/18/2024 10:01 pm COMPARISON: None. HISTORY: ORDERING SYSTEM PROVIDED HISTORY: fall onto hip and buttock TECHNOLOGIST PROVIDED HISTORY: Reason for exam:->fall onto hip and buttock What reading provider will be dictating this exam?->CRC FINDINGS: There is no sign of fracture or dislocation of the left hip. There is no sign of osteoarthritis of the hip. The right hip is normal in appearance with no sign of dislocation or osteoarthritis. The rest of the visualized bony pelvis is normal in appearance. The visualized inferior lumbar spine is normal in appearance. The bowel gas pattern is unremarkable. IMPRESSION: Normal radiographs of the left hip and pelvis. Interpreted by: Jonnathan Liz MD Signed by: Jonnathan Liz MD 05/18/[address] [facility] XR Pelvis and Hip - left 2 V iewson 05-18-2024 Normal radiographs o f the left hip and pelvis. [facility] EXAMINATION: ONE XRAY VIEW OF THE PELVIS AND TWO XRAY VIEWS LEFT HIP 05/18/2024 10:01 pm COMPARISON: None. HISTORY: ORDERING SYSTEM PROVIDED HISTORY: fall onto hip and buttock TECHNOLOGIST PROVIDED HISTORY: Reason for exam:->fall onto hip and buttock What reading provider will be dictating this exam?->CRC FINDINGS: There is no sign of fracture or dislocation of the left hip. There is no sign of osteoarthritis of the hip. The right hip is normal in appearance with no sign of dislocation or osteoarthritis. The rest of the visualized bony pelvis is normal in appearance. The visualized inferior lumbar spine is normal in appearance. The bowel gas pattern is unremarkable. [facility] Jonnathan Liz MD - 05/18/2024 EXAMINATION: ONE XRAY VIEW OF THE PELVIS AND TWO XRAY VIEWS LEFT HIP 05/18/2024 10:01 pm COMPARISON: None. HISTORY: ORDERING SYSTEM PROVIDED HISTORY: fall onto hip and buttock TECHNOLOGIST PROVIDED HISTORY: Reason for exam:->fall onto hip and buttock What reading provider will be dictating this exam?->CRC FINDINGS: There is no sign of fracture or dislocation of the left hip. There is no sign of osteoarthritis of the hip. The right hip is normal in appearance with no sign of dislocation or osteoarthritis. The rest of the visualized bony pelvis is normal in appearance. The visualized inferior lumbar spine is normal in appearance. The bowel gas pattern is unremarkable. IMPRESSION: Normal radiographs of the left hip and pelvis. [facility] Radiology Study observation (narrative) [facility] XR Pelvis and Hip - left 2 V iewsOrdered By: Jonnathan Liz on 05-18-2024 [facility] Work Phone: XR CERVICAL SPINE 2-3 VIEWSo n 03-07-2024 XR CERVICAL SPINE 2-3 VIEWS Interpreted By: Sha Foster, STUDY: XR CERVICAL SPINE 2-3 VIEWS; 03/07/2024 10:52 am INDICATION: Signs/Symptoms:neck pain. ACCESSION NUMBER(S): [id number] ORDERING CLINICIAN: SHA FOSTER FINDINGS: AP lateral x-rays of the cervical spine show C5-6 C6-7 ACDF. Cages screws and plate is in good position without any evidence of hardware failure. Cervical lordosis is maintained at the fusion level. There is no significant degenerative changes above or below the level of the fusion. There is some calcification of the anterior annulus at C7-T1. There is no fractures. There is no soft tissue abnormalities. There is no instability. Signed by: Sha Foster 03/07/2024 11:17 AM Dictation workstation: [id number] [facility] XR Cervical spine 2 or 3 Vie wson 03-07-2024 Interpreted By: Sha Chacon, STUDY: XR CERVICAL SPINE 2-3 VIEWS; 03/07/2024 10:52 am INDICATION: Signs/Symptoms:neck pain. ACCESSION NUMBER(S): [id number] ORDERING CLINICIAN: SHA FOSTER FINDINGS: AP lateral x-rays of the cervical spine show C5-6 C6-7 ACDF. Cages screws and plate is in good position without any evidence of hardware failure. Cervical lordosis is maintained at the fusion level. There is no significant degenerative changes above or below the level of the fusion. There is some calcification of the anterior annulus at C7-T1. There is no fractures. There is no soft tissue abnormalities. There is no instability. Signed by: Sha Foster 03/07/2024 11:17 AM Dictation workstation: [id number] Sha Foster MD - 03/07/2024 Interpreted By: Sha Foster, STUDY: XR CERVICAL SPINE 2-3 VIEWS; 03/07/2024 10:52 am INDICATION: Signs/Symptoms:neck pain. ACCESSION NUMBER(S): [id number] ORDERING CLINICIAN: SHA FOSTER FINDINGS: AP lateral x-rays of the cervical spine show C5-6 C6-7 ACDF. Cages screws and plate is in good position without any evidence of hardware failure. Cervical lordosis is maintained at the fusion level. There is no significant degenerative changes above or below the level of the fusion. There is some calcification of the anterior annulus at C7-T1. There is no fractures. There is no soft tissue abnormalities. There is no instability. Signed by: Sha Foster 03/07/2024 11:17 AM Dictation workstation: [id number] [facility] Work Phone: [facility] Work Phone: Radiology Study observation (narrative) [facility] Work Phone: Basic metabolic 2000 panelon 02-26-2024 Anion gap [Moles/Vol] 10 mmol/L 10 - 20 mmol/L [facility] Calcium [Mass/Vol] 8.9 mg/dL 8.6 - 10. 3 mg/dL [facility] Chloride [Moles/Vol] 102 mmol/L 98 - 107 mmol/L [facility] CO2 [Moles/Vol] 30 mmol/L 21 - 32 mmol/L [facility] Creatinine [Mass/Vol] 1.04 mg/dL 0.50 - 1.30 mg/dL [facility] eGFR - PINF [facility] Comment on above: Calculations of katie mated GFR are performed using the 2020 CKD-EPI Study Refit equation without the race variable for the IDMS-Traceable creatinine methods. https://jasn.asnjournals.org/content//ASN.407839695 8 Glucose [Mass/Vol] 124 mg/dL High 74 - 99 mg/dL [facility] Interpretation and review of laboratory results Abnormal [facility] Potassium [Moles/Vol] 4.2 mmol/L 3.5 - 5.3 mmol/L [facility] Sodium [Moles/Vol] 138 mmol/L 136 - 145 mmol/L [facility] Urea nitrogen [Mass/Vol] 11 mg/dL 6 - 23 mg/dL [facility] Anion gap [Moles/Vol] 10 mmol/L Normal 10-20 [facility] Comment on above: Performed By: #### 2 4323-8 #### ESTELITA LARKIN ([id number]) [facility]) [address] [place] [address] Calcium [Mass/Vol] 8.9 mg/dL Normal 8.6-10.3 [facility] Comment on above: Performed By: #### 2 4323-8 #### ESTELITA LARKIN ([id number]) [facility] [address] [place] [address] 98596 Chloride [Moles/Vol] 102 mmol/L Normal 98-107 [facility] Comment on above: Performed By: #### 2 4323-8 #### ESTELITA LARKIN ([id number]) [facility] [address] [place] [address] 12891 CO2 [Moles/Vol] 30 mmol/L Normal 21-32 [facility] Comment on above: Performed By: #### 2 4323-8 #### ESTELITA LARKIN ([id number]) [facility] [address] [place] [address] 96808 Creatinine [Mass/Vol] 1.04 mg/dL Normal 0.50-1.30 [facility] Comment on above: Performed By: #### 2 4323-8 #### ESTELITA LARKIN ([id number]) [facility] [address] [place] [address] 46590 GFR/1.73 sq M.predicted MDRD (S/P/Bld) [Vol rate/Area] mL/min/{1.73_m2} Normal >60 [facility] Comment on above: Result Comment: Calc ulations of estimated GFR are performed using the 2020 CKD-EPI Study Refit equation without the race variable for the IDMS-Traceable creatinine methods. https://jasn.asnjournals.org/content/early/ASN.331113717 8 Performed By: #### 2 4323-8 #### ESTELITA LARKIN ([id number]) [facility] [address] [place] [address] 25941 Glucose [Mass/Vol] 124 mg/dL High 74-99 [facility] Comment on above: Performed By: #### 2 4323-8 #### ESTELITA LARKIN ([id number]) [facility] [address] [place] [address] 01043 Potassium [Moles/Vol] 4.2 mmol/L Normal 3.5-5.3 [facility] Comment on above: Performed By: #### 2 4323-8 #### ESTELITA LARKIN ([id number]) [facility] [address] [place] [address] 29001 Sodium [Moles/Vol] 138 mmol/L Normal 136-145 [facility] Comment on above: Performed By: #### 2 4323-8 #### ESTELITA LARKIN ([id number]) [facility] [address] [place] [address] 58462 Urea nitrogen [Mass/Vol] 11 mg/dL Normal 6-23 [facility] Comment on above: Performed By: #### 2 4323-8 #### ESTELITA LARKIN ([id number]) [facility] [address] [place] [address] 81321 CBC panel Auto (Bld)on 02-25 Erythrocyte distribution width (RBC) [Ratio] 11.9 % 11.5 - 14.5 % [facility] Hematocrit (Bld) [Volume fraction] 40.5 % Low 41.0 - 52.0 % [facility] Hemoglobin (Bld) [Mass/Vol] 13.2 g/dL Low 13.5 - 17.5 g/dL [facility] Interpretation and review of laboratory results Abnormal [facility] MCH (RBC) [Entitic mass] 31.8 pg 26.0 - 34.0 pg [facility] MCHC (RBC) [Mass/Vol] 32.6 g/dL 32.0 - 36.0 g/dL [facility] MCV (RBC) [Entitic vol] 98 fL 80 - 100 fL [facility] Nucleated RBC/100 WBC (Bld) [Ratio] 0 % [facility] Platelets (Bld) [#/Vol] 267 10*3/uL [facility] RBC (Bld) [#/Vol] 4.15 10*6/uL Low [facility] WBC (Bld) [#/Vol] 9.6 10*3/uL [facility] Erythrocyte distribution width (RBC) [Ratio] 11.9 % Normal 11.5-14.5 [facility] Comment on above: Performed By: #### 5 902-2 #### ESTELITA LARKIN ([id number]) [facility] [address] [place] [address] Hematocrit (Bld) [Volume fraction] 40.5 % Low 41.0-52.0 [facility] Comment on above: Performed By: #### 5 902-2 #### ESTELITA LARKIN ([id number]) [facility] [address] [place] [address] Hemoglobin (Bld) [Mass/Vol] 13.2 g/dL Low 13.5-17.5 [facility] Comment on above: Performed By: #### 5 902-2 #### ESTELITA LARKIN ([id number]) [facility] [address] [place] [address] 57723 MCH (RBC) [Entitic mass] 31.8 pg Normal 26.0-34.0 [facility] Comment on above: Performed By: #### 5 902-2 #### ESTELITA LARKIN ([id number]) [facility] [address] [place] [address] 96429 MCHC (RBC) [Mass/Vol] 32.6 g/dL Normal 32.0-36.0 [facility] Comment on above: Performed By: #### 5 902-2 #### ESTELITA LARKIN ([id number]) [facility] [address] [place] [address] 58941 MCV (RBC) [Entitic vol] 98 fL Normal 80-100 [facility] Comment on above: Performed By: #### 5 902-2 #### ESTELITA LARKIN ([id number]) [facility] [address] [place] [address] 39139 Nucleated RBC/100 WBC (Bld) [Ratio] 0.0 /100 WBCs Normal 0.0-0.0 [facility] Comment on above: Performed By: #### 5 902-2 #### ESTELITA LARKIN ([id number]) [facility] [address] [place] [address] 54852 Platelets (Bld) [#/Vol] 267 x10*3/uL Normal 150-450 [facility] Comment on above: Performed By: #### 5 902-2 #### ESTELITA LARKIN ([id number]) [facility] [address] [place] [address] 03053 RBC (Bld) [#/Vol] 4.15 x10*6/uL Low 4.50-5.90 [facility] Comment on above: Performed By: #### 5 902-2 #### ESTELITA LARKIN ([id number]) [facility] [address] [place] [address] WBC (Bld) [#/Vol] 9.6 x10*3/uL Normal 4.4-11.3 [facility] Comment on above: Performed By: #### 5 902-2 #### ESTELITA LARKIN ([id number]) [facility] [address] [place] [address] Bacteria identified Cx Nom ( Unsp spec)Ordered By: Radha Joyner on 02-25-2024 Interpretation and review of laboratory results Abnormal [facility] Microscopic observation Gram stain Nom (Unsp spec) (2+) Few Polymorphonuclear leukocytes Abnormal [facility] Microscopic observation Gram stain Nom (Unsp spec) Positive Abnormal [facility] Basic metabolic 2000 panelon 02-25-2024 Anion gap [Moles/Vol] 14 mmol/L 10 - 20 mmol/L [facility] Calcium [Mass/Vol] 8.7 mg/dL 8.6 - 10. 3 mg/dL [facility] Chloride [Moles/Vol] 99 mmol/L 98 - 107 mmol/L [facility] CO2 [Moles/Vol] 25 mmol/L 21 - 32 mmol/L [facility] Creatinine [Mass/Vol] 1.15 mg/dL 0.50 - 1.30 mg/dL [facility] GFR/1.73 sq M.predicted among non-blacks MDRD (S/P/Bld) [Vol rate/Area] 81 mL/min/{1.73_m2} - PINF [facility] Comment on above: Calculations of katie mated GFR are performed using the 2020 CKD-EPI Study Refit equation without the race variable for the IDMS-Traceable creatinine methods. https://jasn.asnjournals.org/content//ASN.487094213 8 Glucose [Mass/Vol] 176 mg/dL High 74 - 99 mg/dL [facility] Interpretation and review of laboratory results Abnormal [facility] Potassium [Moles/Vol] 4 mmol/L 3.5 - 5.3 mmol/L [facility] Sodium [Moles/Vol] 134 mmol/L Low 136 - 145 mmol/L [facility] Urea nitrogen [Mass/Vol] 17 mg/dL 6 - 23 mg/dL [facility] Anion gap [Moles/Vol] 14 mmol/L Normal 10-20 [facility] Comment on above: Performed By: #### 5 902-2 #### ESTELITA LARKIN ([id number]) [facility] [address] [place] [address] 04790 Calcium [Mass/Vol] 8.7 mg/dL Normal 8.6-10.3 [facility] Comment on above: Performed By: #### 5 902-2 #### ESTELITA LARKIN ([id number]) [facility] [address] [place] [address] 44896 Chloride [Moles/Vol] 99 mmol/L Normal 98-107 [facility] Comment on above: Performed By: #### 5 902-2 #### ESTELITA LARKIN ([id number]) [facility] [address] [place] [address] 55959 CO2 [Moles/Vol] 25 mmol/L Normal 21-32 [facility] Comment on above: Performed By: #### 5 902-2 #### ESTELITA LARKIN ([id number]) [facility] [address] [place] [address] 64515 Creatinine [Mass/Vol] 1.15 mg/dL Normal 0.50-1.30 [facility] Comment on above: Performed By: #### 5 902-2 #### ESTELITA LARKIN ([id number]) [facility] [address] [place] [address] 49065 Glomerular filtration rate/1.73 sq M.predicted 81 mL/min/1.73m*2 Normal >60 [facility] Comment on above: Result Comment: Calc ulations of estimated GFR are performed using the 2020 CKD-EPI Study Refit equation without the race variable for the IDMS-Traceable creatinine methods. https://jasn.asnjournals.org/content//ASN.620743856 8 Performed By: #### 5 902-2 #### ESTELITA LARKIN ([id number]) [facility] [address] [place] [address] 30259 Glucose [Mass/Vol] 176 mg/dL High 74-99 [facility] Comment on above: Performed By: #### 5 902-2 #### ESTELITA LARKIN ([id number]) [facility] [address] [place] [address] 38423 Potassium [Moles/Vol] 4.0 mmol/L Normal 3.5-5.3 [facility] Comment on above: Performed By: #### 5 902-2 #### ESTELITA LARKIN ([id number]) [facility] [address] [place] [address] 44402 Sodium [Moles/Vol] 134 mmol/L Low 136-145 [facility] Comment on above: Performed By: #### 5 902-2 #### ESTELITA LARKIN ([id number]) [facility] [address] [place] [address] 82224 Urea nitrogen [Mass/Vol] 17 mg/dL Normal 6-23 [facility] Comment on above: Performed By: #### 5 902-2 #### ESTELITA LARKIN ([id number]) [facility] [address] [place] [address] 80781 CBC panel Auto (Bld)on 02-24 Erythrocyte distribution width (RBC) [Ratio] 11.5 % 11.5 - 14.5 % [facility] Hematocrit (Bld) [Volume fraction] 38.4 % Low 41.0 - 52.0 % [facility] Hemoglobin (Bld) [Mass/Vol] 13.1 g/dL Low 13.5 - 17.5 g/dL [facility] Interpretation and review of laboratory results Abnormal [facility] MCH (RBC) [Entitic mass] 32.3 pg 26.0 - 34.0 pg [facility] MCHC (RBC) [Mass/Vol] 34.1 g/dL 32.0 - 36.0 g/dL [facility] MCV (RBC) [Entitic vol] 95 fL 80 - 100 fL [facility] Nucleated RBC/100 WBC (Bld) [Ratio] 0 % [facility] Platelets (Bld) [#/Vol] 261 10*3/uL [facility] RBC (Bld) [#/Vol] 4.05 10*6/uL Low [facility] WBC (Bld) [#/Vol] 15.5 10*3/uL High [facility] Erythrocyte distribution width (RBC) [Ratio] 11.5 % Normal 11.5-14.5 [facility] Comment on above: Performed By: #### 5 902-2 #### ESTELITA LARKIN ([id number]) [facility] ([facility]) [address] [address] 11839 Hematocrit (Bld) [Volume fraction] 38.4 % Low 41.0-52.0 [facility] Comment on above: Performed By: #### 5 902-2 #### ESTELITA LARKIN ([id number]) [facility] ([facility]) [address] [place] [address] 97370 Hemoglobin (Bld) [Mass/Vol] 13.1 g/dL Low 13.5-17.5 [facility] Comment on above: Performed By: #### 5 902-2 #### ESTELITA LARKIN ([id number]) [facility] ([facility]) [address] [place] [address] 27970 MCH (RBC) [Entitic mass] 32.3 pg Normal 26.0-34.0 [facility] Comment on above: Performed By: #### 5 902-2 #### ESTELITA LARKIN ([id number]) [facility] ([facility]) [address] [place] [address] 63509 MCHC (RBC) [Mass/Vol] 34.1 g/dL Normal 32.0-36.0 [facility] Comment on above: Performed By: #### 5 902-2 #### ESTELITA LARKIN ([id number]) [facility] ([facility]) [address] [place] [address] 04493 MCV (RBC) [Entitic vol] 95 fL Normal 80-100 [facility] Comment on above: Performed By: #### 5 902-2 #### ESTELITA LARKIN ([id number]) [facility] ([facility]) [address] [place] [address] Nucleated RBC/100 WBC (Bld) [Ratio] 0.0 /100 WBCs Normal 0.0-0.0 [facility] Comment on above: Performed By: #### 5 902-2 #### ESTELITA LARKIN ([id number]) [facility] ([facility]) [address] [place] [address] 38843 Platelets (Bld) [#/Vol] 261 x10*3/uL Normal 150-450 [facility] Comment on above: Performed By: #### 5 902-2 #### ESTELITA LARKIN ([id number]) [facility] ([facility]) [address] [place] [address] RBC (Bld) [#/Vol] 4.05 x10*6/uL Low 4.50-5.90 [facility] Comment on above: Performed By: #### 5 902-2 #### ESTELITA LARKIN ([id number]) [facility] ([facility]) [address] [place] [address] 71774 WBC (Bld) [#/Vol] 15.5 x10*3/uL High 4.4-11.3 [facility] Comment on above: Performed By: #### 5 902-2 #### ESTELITA LARKIN ([id number]) [facility] ([facility]) [address] [place] [address] 01174 No Panel Informationon 02-24 [facility] Tissue/Wound Culture/SmearOr dered By: Radha Joyner on 02-25-2024 Bacteria identified Cx Nom (Unsp spec) (4+) Abundant Methicillin Resistant Staphylococcus aureus (MRSA) Abnormal [facility] Comment on above: Methicillin (Oxacill in) resistant Staphylococci are resistant to all currently available Penicillins, Beta-lactam/Beta-lactamase inhibitor combinations (including Ampicillin/Sulbactam, Amoxicillin/Clavulanate and Pipercillin/Tazobactam), Carbapenems and Cephalosporins (except Ceftaroline). Vancomycinon 02-25-2024 Vancomycin [Mass/Vol] 13.7 ug/mL 5.0 - 20.0 ug/mL [facility] Vancomycin [Mass/Vol] 13.7 ug/mL Normal 5.0-20.0 [facility] Comment on above: Order Comment: Vanco mycin levels can be monitored according to area under the curve (AUC) or concentration (ug/mL). The preferred monitoring strategy is determined by the patient's renal function and indication for therapy.For AUC monitoring, a random vancomycin level should be interpreted in the context of AUC rather than the concentration at a single point in time.For concentration monitoring, a trough concentration drawn immediately prior to the next dose is preferred.Therapeutic ranges using concentration-guided results:Peak (all ages): 30.0-40.0 ug/mLTrough (all ages): 10.0-20.0 ug/mL Performed By: #### 5 902-2 #### ESTELITA LARKIN ([id number]) [facility] ([facility]) [address] [place] [address] Vancomycin [Mass/Vol]on 02-12 Interpretation and review of laboratory results Normal [facility] Vancomycin levels can be monitored according to area under the curve (AUC) or concentration (ug/mL). The preferred monitoring strategy is determined by the patient's renal function and indication for therapy. For AUC monitoring, a random vancomycin level should be interpreted in the context of AUC rather than the concentration at a single point in time. For concentration monitoring, a trough concentration drawn immediately prior to the next dose is preferred. Therapeutic ranges using concentration-guided results: Peak (all ages): 30.0-40.0 ug/mL Trough (all ages): 10.0-20.0 ug/mL [facility] Basic metabolic 2000 panelon 02-24-2024 Anion gap [Moles/Vol] 10 mmol/L 10 - 20 mmol/L [facility] Calcium [Mass/Vol] 8.8 mg/dL 8.6 - 10. 3 mg/dL [facility] Chloride [Moles/Vol] 104 mmol/L 98 - 107 mmol/L [facility] CO2 [Moles/Vol] 29 mmol/L 21 - 32 mmol/L [facility] Creatinine [Mass/Vol] 1.17 mg/dL 0.50 - 1.30 mg/dL [facility] GFR/1.73 sq M.predicted among non-blacks MDRD (S/P/Bld) [Vol rate/Area] 80 mL/min/{1.73_m2} - PINF [facility] Comment on above: Calculations of katie mated GFR are performed using the 2020 CKD-EPI Study Refit equation without the race variable for the IDMS-Traceable creatinine methods. https://jasn.asnjournals.org/content//ASN.405870058 8 Glucose [Mass/Vol] 108 mg/dL High 74 - 99 mg/dL [facility] Interpretation and review of laboratory results Abnormal [facility] Potassium [Moles/Vol] 3.9 mmol/L 3.5 - 5.3 mmol/L [facility] Sodium [Moles/Vol] 139 mmol/L 136 - 145 mmol/L [facility] Urea nitrogen [Mass/Vol] 13 mg/dL 6 - 23 mg/dL [facility] Anion gap [Moles/Vol] 10 mmol/L Normal 10-20 [facility] Comment on above: Order Comment: Savannah long obtain BMP on this date xxxxxx, call your PCP to review results/treatment plansThank you Performed By: #### 5 902-2 #### ESTELITA LARKIN ([id number]) [facility] ([facility]) [address] [address] 71338 Calcium [Mass/Vol] 8.8 mg/dL Normal 8.6-10.3 [facility] Comment on above: Order Comment: Savannah long obtain BMP on this date xxxxxx, call your PCP to review results/treatment plansThank you Performed By: #### 5 902-2 #### ESTELITA LARKIN ([id number]) [facility] ([facility]) [address] [place] [address] 57543 Chloride [Moles/Vol] 104 mmol/L Normal 98-107 [facility] Comment on above: Order Comment: Savannah long obtain BMP on this date xxxxxx, call your PCP to review results/treatment plansThank you Performed By: #### 5 902-2 #### ESTELITA LARKIN ([id number]) [facility] ([facility]) [address] [address] 27293 CO2 [Moles/Vol] 29 mmol/L Normal 21-32 [facility] Comment on above: Order Comment: Savannah long obtain BMP on this date xxxxxx, call your PCP to review results/treatment plansThank you Performed By: #### 5 902-2 #### ESTELITA LARKIN ([id number]) [facility] ([facility]) [address] [address] 93816 Creatinine [Mass/Vol] 1.17 mg/dL Normal 0.50-1.30 [facility] Comment on above: Order Comment: Savannah long obtain BMP on this date xxxxxx, call your PCP to review results/treatment plansThank you Performed By: #### 5 902-2 #### ESTELITA LARKIN ([id number]) [facility] ([facility]) [address] [place] [address] 79978 Glomerular filtration rate/1.73 sq M.predicted 80 mL/min/1.73m*2 Normal >60 [facility] Comment on above: Order Comment: Savannah long obtain BMP on this date xxxxxx, call your PCP to review results/treatment plansThank you Result Comment: Calc ulations of estimated GFR are performed using the 2020 CKD-EPI Study Refit equation without the race variable for the IDMS-Traceable creatinine methods. https://jasn.asnjournals.org/content//ASN.213423391 8 Performed By: #### 5 902-2 #### ESTELITA LARKIN ([id number]) [facility] ([facility]) [address] [place] [address] Glucose [Mass/Vol] 108 mg/dL High 74-99 [facility] Comment on above: Order Comment: Savannah long obtain BMP on this date xxxxxx, call your PCP to review results/treatment plansThank you Performed By: #### 5 902-2 #### ESTELITA LARKIN ([id number]) [facility] ([facility]) [address] [place] [address] 79425 Potassium [Moles/Vol] 3.9 mmol/L Normal 3.5-5.3 [facility] Comment on above: Order Comment: Pleas e obtain BMP on this date xxxxxx, call your PCP to review results/treatment plansThank you Performed By: #### 5 902-2 #### ESTELITA LARKIN ([id number]) [facility] ([facility]) [address] [place] [address] 75203 Sodium [Moles/Vol] 139 mmol/L Normal 136-145 [facility] Comment on above: Order Comment: Martinaas ethan obtain BMP on this date xxxxxx, call your PCP to review results/treatment plansThank you Performed By: #### 5 902-2 #### AVTARIBKARI LARKIN ([id number]) [facility] ([facility]) [address] [place] [address] 07916 Urea nitrogen [Mass/Vol] 13 mg/dL Normal 6-23 [facility] Comment on above: Order Comment: Pleas e obtain BMP on this date xxxxxx, call your PCP to review results/treatment plansThank you Performed By: #### 5 902-2 #### ESTELITA LARKIN ([id number]) [facility] ([facility]) [address] [place] [address] 63254 CBC panel Auto (Bld)on 02-23 Erythrocyte distribution width (RBC) [Ratio] 11.6 % 11.5 - 14.5 % [facility] Hematocrit (Bld) [Volume fraction] 40.2 % Low 41.0 - 52.0 % [facility] Hemoglobin (Bld) [Mass/Vol] 13.3 g/dL Low 13.5 - 17.5 g/dL [facility] Interpretation and review of laboratory results Abnormal [facility] MCH (RBC) [Entitic mass] 32 pg 26.0 - 34.0 pg [facility] MCHC (RBC) [Mass/Vol] 33.1 g/dL 32.0 - 36.0 g/dL [facility] MCV (RBC) [Entitic vol] 97 fL 80 - 100 fL [facility] Nucleated RBC/100 WBC (Bld) [Ratio] 0 % [facility] Platelets (Bld) [#/Vol] 235 10*3/uL [facility] RBC (Bld) [#/Vol] 4.15 10*6/uL [facility] WBC (Bld) [#/Vol] 7.5 10*3/uL [facility] Erythrocyte distribution width (RBC) [Ratio] 11.6 % Normal 11.5-14.5 [facility] Comment on above: Performed By: #### 5 902-2 #### ESTELITA LARKIN ([id number]) [facility] ([facility]) [address] [address] 50703 Hematocrit (Bld) [Volume fraction] 40.2 % Low 41.0-52.0 [facility] Comment on above: Performed By: #### 5 902-2 #### ESTELITA LARKIN ([id number]) [facility] ([facility]) [address] [place] [address] 28620 Hemoglobin (Bld) [Mass/Vol] 13.3 g/dL Low 13.5-17.5 [facility] Comment on above: Performed By: #### 5 902-2 #### ESTELITA LARIKN ([id number]) [facility] ([facility]) [address] [place] [address] 89820 MCH (RBC) [Entitic mass] 32.0 pg Normal 26.0-34.0 [facility] Comment on above: Performed By: #### 5 902-2 #### ESTELITA LARKIN ([id number]) [facility] ([facility]) [address] [place] [address] 05979 MCHC (RBC) [Mass/Vol] 33.1 g/dL Normal 32.0-36.0 [facility] Comment on above: Performed By: #### 5 902-2 #### ESTELITA LARKIN ([id number]) [facility] ([facility]) [address] [address] 89569 MCV (RBC) [Entitic vol] 97 fL Normal 80-100 [facility] Comment on above: Performed By: #### 5 902-2 #### ESTELITA LARKIN ([id number]) [facility] ([facility]) [address] [place] [address] 44219 Nucleated RBC/100 WBC (Bld) [Ratio] 0.0 /100 WBCs Normal 0.0-0.0 [facility] Comment on above: Performed By: #### 5 902-2 #### ESTELITA LARKIN ([id number]) [facility] ([facility]) [address] [place] [address] 76510 Platelets (Bld) [#/Vol] 235 x10*3/uL Normal 150-450 [facility] Comment on above: Performed By: #### 5 902-2 #### ESTELITA LARKIN ([id number]) [facility] ([facility]) [address] [place] [address] 60311 RBC (Bld) [#/Vol] 4.15 x10*6/uL Low 4.50-5.90 [facility] Comment on above: Performed By: #### 5 902-2 #### ESTELITA LARKIN ([id number]) [facility] ([facility]) [address] [place] [address] WBC (Bld) [#/Vol] 7.5 x10*3/uL Normal 4.4-11.3 [facility] Comment on above: Performed By: #### 5 902-2 #### ESTELITA HONOLULU BANDAR ([id number]) [facility] ([facility]) [address] [place] [address] FL FLUORO IMAGES NO CHARGEon 02-24-2024 FL FLUORO IMAGES NO CHARGE These images are not reportable by radiology and will not be interpreted by Radiologists. Normal [facility] OPERATIVE IMAGESon 4 OPERATIVE IMAGES Please see OpNote on Notes tab for findings. Normal [facility] Operative Imageson 4 Please see OpNote on Notes tab for findings. IMAGING Radiology Study observation (narrative) [facility] Work Phone: Operative ImagesOrdered By: Generic Optime on 02-24-2024 [facility] SST TOPon 02-24-2024 Extra Tube Hold for add-ons. [facility] Comment on above: Auto resulted. [facility] XR tomography Unspecified shamika dy regionon 02-24-2024 These images are not reportable by radiology and will not be interpreted by Radiologists. IMAGING Bacteria identifiedon 2023 Bacteria identified Cx Nom (Unsp spec) Test: Tissue/Wound Culture/Smear Specimen Source: Wound/Tissue Specimen Type: Tissue/Biopsy Specimen Date: 02/23/2024 0650 Result Date: 02/25/2024 0926 Result Status: Final result Abnormal: Yes Resulting Lab: [facility] [address] [facility] [address] CULTURE (4+) Abundant Methicillin Resistant Staphylococcus aureus (MRSA) (Abnormal) Methicillin (Oxacillin) resistant Staphylococci are resistant to all currently available Penicillins, Beta-lactam/Beta-lactamase inhibitor combinations (including Ampicillin/Sulbactam, Amoxicillin/Clavulanate and Pipercillin/Tazobactam), Carbapenems and Cephalosporins (except Ceftaroline). STAIN (2+) Few Polymorphonuclear leukocytes (2+) Few Gram positive cocci SUSCEPTIBILITY Methicillin Resistant Staphylococcus aureus (MRSA) METHOD MICROSCAN CLINDAMYCIN <=0.250 ug/ml Susceptible ERYTHROMYCIN >4 ug/ml Resistant OXACILLIN >2 ug/ml Resistant TETRACYCLINE <=2.000 ug/ml Susceptible TRIMETHOPRIM/SULFAMETHOXAZOLE <=0.5/9.5 ug/ml Susceptible VANCOMYCIN 1.000 ug/ml Susceptible Abnormal [facility] Comment on above: Performed By: #### 5 902-2 #### ESTELITA LARKIN ([id number]) [facility] ([facility]) [address] [place] [address] 68104 ECG 12-LEADon 02-23-2024 ECG 12-LEAD Ventricular Rate 49 Atrial Rate 49 P-R Interval 156 QRS Duration 88 Q-T Interval 452 QTC Calculation(Bazett) 408 P Natalia 38 R Natalia 53 T Natalia 48 QRS Count 8 Q Onset 224 P Onset 146 P Offset 202 T Offset 450 QTC Fredericia 422 Diagnosis Sinus bradycardia with sinus arrhythmia Otherwise normal ECG When compared with ECG of 16-OCT-2015 11:18, No significant change was found Confirmed by Kris Segovia ([id number]) on 02/27/2024 10:05:52 AM Normal [facility] Lavender Topon 02-23-2024 Extra Tube Hold for add-ons. [facility] Comment on above: Auto resulted. [facility] Vancomycinon 02-23-2024 Vancomycin [Mass/Vol] 7.9 ug/mL 5.0 - 20.0 ug/mL [facility] Vancomycin [Mass/Vol] 7.9 ug/mL Normal 5.0-20.0 [facility] Comment on above: Order Comment: Vanco mycin levels can be monitored according to area under the curve (AUC) or concentration (ug/mL). The preferred monitoring strategy is determined by the patient's renal function and indication for therapy.For AUC monitoring, a random vancomycin level should be interpreted in the context of AUC rather than the concentration at a single point in time.For concentration monitoring, a trough concentration drawn immediately prior to the next dose is preferred.Therapeutic ranges using concentration-guided results:Peak (all ages): 30.0-40.0 ug/mLTrough (all ages): 10.0-20.0 ug/mL Performed By: #### 5 902-2 #### ESTELITA LARKIN ([id number]) [facility] ([facility]) [address] [place] [address] 94[address] Vancomycin [Mass/Vol] 16.3 ug/mL 5.0 - 20.0 ug/mL [facility] Vancomycin [Mass/Vol] 16.3 ug/mL Normal 5.0-20.0 [facility] Comment on above: Order Comment: Vancomycin levels can be monitored according to area under the curve (AUC) or concentration (ug/mL). The preferred monitoring strategy is determined by the patient's renal function and indication for therapy. For AUC monitoring, a random vancomycin level should be interpreted in the context of AUC rather than the concentration at a single point in time. For concentration monitoring, a trough concentration drawn immediately prior to the next dose is preferred. Therapeutic ranges using concentration-guided results: Peak (all ages): 30.0-40.0 ug/mL Trough (all ages): 10.0-20.0 ug/mL Performed By: #### 2 0578-1 #### ESTELITA LARKIN ([id number]) [facility] ([facility]) [address] [place] [address] 26959 Vancomycin [Mass/Vol]on 02-12 Interpretation and review of laboratory results Normal [facility] Vancomycin levels can be monitored according to area under the curve (AUC) or concentration (ug/mL). The preferred monitoring strategy is determined by the patient's renal function and indication for therapy. For AUC monitoring, a random vancomycin level should be interpreted in the context of AUC rather than the concentration at a single point in time. For concentration monitoring, a trough concentration drawn immediately prior to the next dose is preferred. Therapeutic ranges using concentration-guided results: Peak (all ages): 30.0-40.0 ug/mL Trough (all ages): 10.0-20.0 ug/mL [facility] Interpretation and review of laboratory results Normal [facility] Vancomycin levels can be monitored according to area under the curve (AUC) or concentration (ug/mL). The preferred monitoring strategy is determined by the patient's renal function and indication for therapy. For AUC monitoring, a random vancomycin level should be interpreted in the context of AUC rather than the concentration at a single point in time. For concentration monitoring, a trough concentration drawn immediately prior to the next dose is preferred. Therapeutic ranges using concentration-guided results: Peak (all ages): 30.0-40.0 ug/mL Trough (all ages): 10.0-20.0 ug/mL [facility] Bacteria identifiedon 2023 Bacteria identified Cx Nom (Bld) Test: Blood Culture Specimen Source: Peripheral Venipuncture Specimen Type: Blood culture Specimen Date: 02/22/20242035 Result Date: 02/27/20242 Result Status: Final result Abnormal: No Resulting Lab: [facility] [address] [place] [address] CULTURE No growth at 4 days - FINAL REPORT [facility] Comment on above: Performed By: #### 6 00-7 #### SERENE Sandra ([id number]) [facility] ([facility]) [address] [place] [address] Blood type and Indirect anti body screen panel (Bld)on 02-22-2024 ABO group Nom (Bld) A [facility] Blood group antibody screen Ql Negative [facility] D Ag Ql (Bld) Positive [facility] ABO group Nom (Bld) A [facility] Comment on above: Performed By: #### 3 4532-2 #### ESTELITA LARKIN ([id number]) [facility] ([facility]) [address] [place] [address] [place] Blood group antibody screen Ql Negative Normal [facility] Comment on above: Performed By: #### 3 4532-2 #### ESTELITA VIOLETA PORTILLO ([id number]) [facility] ([facility]) [address] [place] [address] [place] D Ag Ql (Bld) Positive Normal [facility] Comment on above: Performed By: #### 3 4532-2 #### ESTELITA MCDANIEL LAYA PORTILLO ([id number]) [facility] ([facility]) [address] [place] [address] [place] C reactive proteinon 024 CRP [Mass/Vol] 1.16 mg/dL High <1.00 [facility] Comment on above: Performed By: #### 1 988-5 #### ESTELITA MCDANIEL LAYA PORTILLO ([id number]) [facility] ([facility]) [address] [place] [address] C-reactive proteinon 024 CRP [Mass/Vol] 1.16 mg/dL High NINF - 1.00 mg/dL [facility] CBC W Auto Differential pane l (Bld)on 02-22-2024 Basophils (Bld) [#/Vol] 0.05 10*3/uL [facility] Basophils/100 WBC (Bld) 0.4 % 0.0 - 2.0 % [facility] Eosinophils (Bld) [#/Vol] 0.21 10*3/uL [facility] Eosinophils/100 WBC (Bld) 1.6 % 0.0 - 6.0 % [facility] Erythrocyte distribution width (RBC) [Ratio] 11.7 % 11.5 - 14.5 % [facility] Hematocrit (Bld) [Volume fraction] 41.6 % 41.0 - 52.0 % [facility] Hemoglobin (Bld) [Mass/Vol] 14.3 g/dL 13.5 - 17.5 g/dL [facility] Immature granulocytes (Bld) [#/Vol] 0.06 10*3/uL [facility] Immature granulocytes/100 WBC (Bld) 0.5 % 0.0 - 0.9 % [facility] Comment on above: Immature Granulocyte Count (IG) includes promyelocytes, myelocytes and metamyelocytes but does not include bands. Percent differential counts (%) should be interpreted in the context of the absolute cell counts (cells/UL). Interpretation and review of laboratory results Abnormal [facility] Lymphocytes (Bld) [#/Vol] 2.31 10*3/uL [facility] Lymphocytes/100 WBC (Bld) 17.7 % 13.0 - 44.0 % [facility] MCH (RBC) [Entitic mass] 32.2 pg 26.0 - 34.0 pg [facility] MCHC (RBC) [Mass/Vol] 34.4 g/dL 32.0 - 36.0 g/dL [facility] MCV (RBC) [Entitic vol] 94 fL 80 - 100 fL [facility] Monocytes (Bld) [#/Vol] 0.95 10*3/uL [facility] Monocytes/100 WBC (Bld) 7.3 % 2.0 - 10.0 % [facility] Neutrophils (Bld) [#/Vol] 9.46 10*3/uL High [facility] Comment on above: Percent differential counts (%) should be interpreted in the context of the absolute cell counts (cells/uL). Neutrophils/100 WBC (Bld) 72.5 % 40.0 - 80.0 % [facility] Nucleated RBC/100 WBC (Bld) [Ratio] 0 % [facility] Platelets (Bld) [#/Vol] 262 10*3/uL [facility] RBC (Bld) [#/Vol] 4.44 10*6/uL Low [facility] WBC (Bld) [#/Vol] 13 10*3/uL [facility] Basophils (Bld) [#/Vol] 0.05 x10*3/uL Normal 0.00-0.10 [facility] Comment on above: Performed By: #### 5 7021-8 #### ESTELITA LARKIN ([id number]) [facility] ([facility]) [address] [place] [place] [address] 97035 Basophils/100 WBC (Bld) 0.4 % Normal 0.0-2.0 [facility] Comment on above: Performed By: #### 5 7021-8 #### ESTELITA LARKIN ([id number]) [facility] ([facility]) [address] [place] [address] 44805 Eosinophils (Bld) [#/Vol] 0.21 x10*3/uL Normal 0.00-0.70 [facility] Comment on above: Performed By: #### 5 7021-8 #### ESTELITA LARKIN ([id number]) [facility] ([facility]) [address] [place] [address] 11787 Eosinophils/100 WBC (Bld) 1.6 % Normal 0.0-6.0 [facility] Comment on above: Performed By: #### 5 7021-8 #### ESTELITA LARKIN ([id number]) [facility] ([facility]) [address] [address] 57540 Erythrocyte distribution width (RBC) [Ratio] 11.7 % Normal 11.5-14.5 [facility] Comment on above: Performed By: #### 5 7021-8 #### ESTELITA LARKIN ([id number]) [facility] ([facility]) [address] [place] [address] 19853 Hematocrit (Bld) [Volume fraction] 41.6 % Normal 41.0-52.0 [facility] Comment on above: Performed By: #### 5 7021-8 #### ESTELITA LARKIN ([id number]) [facility] ([facility]) [address] [address] 31623 Hemoglobin (Bld) [Mass/Vol] 14.3 g/dL Normal 13.5-17.5 [facility] Comment on above: Performed By: #### 5 7021-8 #### ESTELITA LARKIN ([id number]) [facility] ([facility]) [address] [place] [address] 03613 Immature granulocytes (Bld) [#/Vol] 0.06 x10*3/uL Normal 0.00-0.70 [facility] Comment on above: Performed By: #### 5 7021-8 #### ESTELITA LARKIN ([id number]) [facility] ([facility]) [address] [address] 82410 Immature granulocytes/100 WBC (Bld) 0.5 % Normal 0.0-0.9 [facility] Comment on above: Result Comment: Tamiko ture Granulocyte Count (IG) includes promyelocytes, myelocytes and metamyelocytes but does not include bands. Percent differential counts (%) should be interpreted in the context of the absolute cell counts (cells/UL). Performed By: #### 5 7021-8 #### ESTELITA LARKIN ([id number]) [facility] ([facility]) [address] [address] 26496 Lymphocytes (Bld) [#/Vol] 2.31 x10*3/uL Normal 1.20-4.80 [facility] Comment on above: Performed By: #### 5 7021-8 #### ESTELITA LARKIN ([id number]) [facility] ([facility]) [address] [place] [address] 02026 Lymphocytes/100 WBC (Bld) 17.7 % Normal 13.0-44.0 [facility] Comment on above: Performed By: #### 5 7021-8 #### ESTELITA LARKIN ([id number]) [facility] ([facility]) [address] [address] 79081 MCH (RBC) [Entitic mass] 32.2 pg Normal 26.0-34.0 [facility] Comment on above: Performed By: #### 5 7021-8 #### ESTELITA LARKIN ([id number]) [facility] ([facility]) [address] [address] 63170 MCHC (RBC) [Mass/Vol] 34.4 g/dL Normal 32.0-36.0 [facility] Comment on above: Performed By: #### 5 7021-8 #### ESTELITA LARKIN ([id number]) [facility] ([facility]) [address] [address] 88754 MCV (RBC) [Entitic vol] 94 fL Normal 80-100 [facility] Comment on above: Performed By: #### 5 7021-8 #### ESTELITA LARKIN ([id number]) [facility] ([facility]) [address] [place] [address] 63257 Monocytes (Bld) [#/Vol] 0.95 x10*3/uL Normal 0.10-1.00 [facility] Comment on above: Performed By: #### 5 7021-8 #### ESTELITA LARKIN ([id number]) [facility] ([facility]) [address] [address] 26262 Monocytes/100 WBC (Bld) 7.3 % Normal 2.0-10.0 [facility] Comment on above: Performed By: #### 5 7021-8 #### ESTELITA LARKIN ([id number]) [facility] ([facility]) [address] [address] 49293 Neutrophils (Bld) [#/Vol] 9.46 x10*3/uL High 1.20-7.70 [facility] Comment on above: Result Comment: Perc ent differential counts (%) should be interpreted in the context of the absolute cell counts (cells/uL). Performed By: #### 5 7021-8 #### ESTELITA LARKIN ([id number]) [facility] ([facility]) [address] [address] 71998 Neutrophils/100 WBC (Bld) 72.5 % Normal 40.0-80.0 [facility] Comment on above: Performed By: #### 5 7021-8 #### ESTELITA MCDANIEL RIO BANDAR ([id number]) [facility] ([facility]) [address] [address] 75229 Nucleated RBC/100 WBC (Bld) [Ratio] 0.0 /100 WBCs Normal 0.0-0.0 [facility] Comment on above: Performed By: #### 5 7021-8 #### ESTELITA MCDANIEL RIO BANDAR ([id number]) [facility] ([facility]) [address] [address] 84463 Platelets (Bld) [#/Vol] 262 x10*3/uL Normal 150-450 [facility] Comment on above: Performed By: #### 5 7021-8 #### ESTELITA MCDANIEL RIO BANDAR ([id number]) [facility] ([facility]) [address] [address] 43018 RBC (Bld) [#/Vol] 4.44 x10*6/uL Low 4.50-5.90 [facility] Comment on above: Performed By: #### 5 7021-8 #### ESTELITA MCDANIEL RIO BANDAR ([id number]) [facility] ([facility]) [address] [place] [address] 78099 WBC (Bld) [#/Vol] 13.0 x10*3/uL High 4.4-11.3 [facility] Comment on above: Performed By: #### 5 7021-8 #### ESTELITA VIOLETA ASIF BANDAR ([id number]) [facility] ([facility]) [address] [place] [address] 75193 CRP [Mass/Vol]on 02-22-2024 Interpretation and review of laboratory results Abnormal [facility] CT CHEST W IV CONTRASTon CT CHEST W IV CONTRAST Interpreted By: Phillip Mojica, STUDY: CT CHEST W IV CONTRAST; 02/22/2024 10:18 pm INDICATION: Signs/Symptoms:multiple abscess to Left armpit. COMPARISON: None. ACCESSION NUMBER(S): [id number] ORDERING CLINICIAN: HALEY YATES TECHNIQUE: Contiguous axial images of the chest and upper abdomen were obtained after the intravenous administration of iodinated contrast. Coronal and sagittal reformatted images were reconstructed from the axial data. FINDINGS: MEDIASTINUM AND LYMPH NODES: The esophageal wall appears within normal limits. Calcified right hilar lymph nodes in keeping with a remote granulomatous infection. No enlarged intrathoracic lymph nodes. There are several mildly enlarged left axillary lymph nodes are reactive to the soft tissue infection in the axilla. No pneumomediastinum. VESSELS: Normal caliber thoracic aorta without dissection. No significant aortic atherosclerosis. HEART: Normal in size. No coronary artery calcifications. No significant pericardial effusion. LUNG, AIRWAYS, AND PLEURA: There is mild paraseptal emphysema. There are calcified right lower lobe in left upper lobe granulomas consistent with remote granulomatous infection. There is an area of scarring in the anterolateral right upper lobe associated with a 0.8 cm x 0.4 cm nodule. Additional 0.4 cm x 0.3 cm nodule in the posterior right lung apex is also noted. No consolidation, pulmonary edema, effusion, or pneumothorax. OSSEOUS STRUCTURES: No acute osseous abnormality. Multilevel disc spur complexes in the thoracic spine, resulting in a greater than mild canal stenosis. CHEST WALL SOFT TISSUES: There are multiple abscesses in the left axilla. The largest measures 2.7 cm x 1.2 cm x 2.1 cm in the anterior aspect the axillary fold. There are 2 smaller abscesses in the upper medial left arm that measure 1 cm x 1.6 cm (more posterior in location) and 0.9 cm x 0.5 cm (slightly more anterior and inferior in location). There is a locoregional inflammatory fat stranding in the left axilla and left medial arm consistent with cellulitis. UPPER ABDOMEN/OTHER: No acute abnormality. Subcentimeter simple exophytic right upper pole renal cyst. IMPRESSION: Multiple abscesses in the left axilla. The largest measures 2.7 cm x 1.2 cm x 2.1 cm in the anterior aspect the axillary fold. There are 2 smaller abscesses in the upper medial left arm that measure 1 cm x 1.6 cm (more posterior in location) and 0.9 cm x 0.5 cm (slightly more anterior and inferior in location). Locoregional inflammatory fat stranding in the left axilla and left medial arm consistent with cellulitis. Paraseptal emphysema and a 0.8 cm x 0.4 cm right upper lobe pulmonary nodule with surrounding scarring. Recommend a follow-up CT chest in 6 months to ensure stability. Camilo H, et al. Guidelines for Management of Incidental Pulmonary Nodules Detected on CT Images: From the Fleischner Society 2017. Radiology 2017; 284(1): 228-243 MACRO: Incidental Finding: A solid non-calcified pulmonary nodule measuring 6-8 mm . (-YCF-) Instructions: Consider follow up non contrast chest CT at 6-12 months, then consider CT chest at 18-24 months. (Lorenzo Pinahoportillo et al., Guidelines for management of incidental pulmonary nodules detected on CT images: From the Fleischner Society 2017, Radiology. 2017 [place];284 (1):228-243.) GENEVIEVENER.[email or web address].2 Signed by: Phillip Mojica 02/22/2024 11:09 PM Dictation workstation: [id number] [facility] CT Chest W contrast Pee Multiple abscesses i n the left axilla. The largest measures 2.7 cm x 1.2 cm x 2.1 cm in the anterior aspect the axillary fold. There are 2 smaller abscesses in the upper medial left arm that measure 1 cm x 1.6 cm (more posterior in location) and 0.9 cm x 0.5 cm (slightly more anterior and inferior in location). Locoregional inflammatory fat stranding in the left axilla and left medial arm consistent with cellulitis. Paraseptal emphysema and a 0.8 cm x 0.4 cm right upper lobe pulmonary nodule with surrounding scarring. Recommend a follow-up CT chest in 6 months to ensure stability. Camilo H, et al. Guidelines for Management of Incidental Pulmonary Nodules Detected on CT Images: From the Fleischner Society 2017. Radiology 2017; 284(1): 228-243 MACRO: Incidental Finding: A solid non-calcified pulmonary nodule measuring 6-8 mm . (-YCF-) Instructions: Consider follow up non contrast chest CT at 6-12 months, then consider CT chest at 18-24 months. (Lorenzo Page et al., Guidelines for management of incidental pulmonary nodules detected on CT images: From the Fleischner Society 2017, Radiology. 2017 [place];284 (1):228-243.) ROLY.ACR.IF.2 Signed by: Phillip Mojica 02/22/2024 11:09 PM Dictation workstation: [id number] [facility] Interpreted By: Phillip Varner, STUDY: CT CHEST W IV CONTRAST; 02/22/2024 10:18 pm INDICATION: Signs/Symptoms:multiple abscess to Left armpit. COMPARISON: None. ACCESSION NUMBER(S): [id number] ORDERING CLINICIAN: HALEY YATES TECHNIQUE: Contiguous axial images of the chest and upper abdomen were obtained after the intravenous administration of iodinated contrast. Coronal and sagittal reformatted images were reconstructed from the axial data. FINDINGS: MEDIASTINUM AND LYMPH NODES: The esophageal wall appears within normal limits. Calcified right hilar lymph nodes in keeping with a remote granulomatous infection. No enlarged intrathoracic lymph nodes. There are several mildly enlarged left axillary lymph nodes are reactive to the soft tissue infection in the axilla. No pneumomediastinum. VESSELS: Normal caliber thoracic aorta without dissection. No significant aortic atherosclerosis. HEART: Normal in size. No coronary artery calcifications. No significant pericardial effusion. LUNG, AIRWAYS, AND PLEURA: There is mild paraseptal emphysema. There are calcified right lower lobe in left upper lobe granulomas consistent with remote granulomatous infection. There is an area of scarring in the anterolateral right upper lobe associated with a 0.8 cm x 0.4 cm nodule. Additional 0.4 cm x 0.3 cm nodule in the posterior right lung apex is also noted. No consolidation, pulmonary edema, effusion, or pneumothorax. OSSEOUS STRUCTURES: No acute osseous abnormality. Multilevel disc spur complexes in the thoracic spine, resulting in a greater than mild canal stenosis. CHEST WALL SOFT TISSUES: There are multiple abscesses in the left axilla. The largest measures 2.7 cm x 1.2 cm x 2.1 cm in the anterior aspect the axillary fold. There are 2 smaller abscesses in the upper medial left arm that measure 1 cm x 1.6 cm (more posterior in location) and 0.9 cm x 0.5 cm (slightly more anterior and inferior in location). There is a locoregional inflammatory fat stranding in the left axilla and left medial arm consistent with cellulitis. UPPER ABDOMEN/OTHER: No acute abnormality. Subcentimeter simple exophytic right upper pole renal cyst. [facility] Phillip Mojica MD - 02/22/2024 Interpreted By: Phillip Mojica, STUDY: CT CHEST W IV CONTRAST; 02/22/2024 10:18 pm INDICATION: Signs/Symptoms:multiple abscess to Left armpit. COMPARISON: None. ACCESSION NUMBER(S): [id number] ORDERING CLINICIAN: HALEY YATES TECHNIQUE: Contiguous axial images of the chest and upper abdomen were obtained after the intravenous administration of iodinated contrast. Coronal and sagittal reformatted images were reconstructed from the axial data. FINDINGS: MEDIASTINUM AND LYMPH NODES: The esophageal wall appears within normal limits. Calcified right hilar lymph nodes in keeping with a remote granulomatous infection. No enlarged intrathoracic lymph nodes. There are several mildly enlarged left axillary lymph nodes are reactive to the soft tissue infection in the axilla. No pneumomediastinum. VESSELS: Normal caliber thoracic aorta without dissection. No significant aortic atherosclerosis. HEART: Normal in size. No coronary artery calcifications. No significant pericardial effusion. LUNG, AIRWAYS, AND PLEURA: There is mild paraseptal emphysema. There are calcified right lower lobe in left upper lobe granulomas consistent with remote granulomatous infection. There is an area of scarring in the anterolateral right upper lobe associated with a 0.8 cm x 0.4 cm nodule. Additional 0.4 cm x 0.3 cm nodule in the posterior right lung apex is also noted. No consolidation, pulmonary edema, effusion, or pneumothorax. OSSEOUS STRUCTURES: No acute osseous abnormality. Multilevel disc spur complexes in the thoracic spine, resulting in a greater than mild canal stenosis. CHEST WALL SOFT TISSUES: There are multiple abscesses in the left axilla. The largest measures 2.7 cm x 1.2 cm x 2.1 cm in the anterior aspect the axillary fold. There are 2 smaller abscesses in the upper medial left arm that measure 1 cm x 1.6 cm (more posterior in location) and 0.9 cm x 0.5 cm (slightly more anterior and inferior in location). There is a locoregional inflammatory fat stranding in the left axilla and left medial arm consistent with cellulitis. UPPER ABDOMEN/OTHER: No acute abnormality. Subcentimeter simple exophytic right upper pole renal cyst. IMPRESSION: Multiple abscesses in the left axilla. The largest measures 2.7 cm x 1.2 cm x 2.1 cm in the anterior aspect the axillary fold. There are 2 smaller abscesses in the upper medial left arm that measure 1 cm x 1.6 cm (more posterior in location) and 0.9 cm x 0.5 cm (slightly more anterior and inferior in location). Locoregional inflammatory fat stranding in the left axilla and left medial arm consistent with cellulitis. Paraseptal emphysema and a 0.8 cm x 0.4 cm right upper lobe pulmonary nodule with surrounding scarring. Recommend a follow-up CT chest in 6 months to ensure stability. neda Cloud al. Guidelines for Management of Incidental Pulmonary Nodules Detected on CT Images: From the Fleischner Society 2017. Radiology 2017; 284(1): 228-243 MACRO: Incidental Finding: A solid non-calcified pulmonary nodule measuring 6-8 mm . (-YCF-) Instructions: Consider follow up non contrast chest CT at 6-12 months, then consider CT chest at 18-24 months. (Lorenzo Moralez al., Guidelines for management of incidental pulmonary nodules detected on CT images: From the Fleischner Society 2017, Radiology. 2017 [place];284 (1):228-243.) [facility].ACR.IF.2 Signed by: Phillip Mojica 02/22/2024 11:09 PM Dictation workstation: [id number] [facility] Work Phone: Radiology Study observation (narrative) [facility] Work Phone: CT Chest W contrast IVOrdere d By: Phillip Mojica on 02-22-2024 [facility] Work Phone: Coagulation tissue factor in ducedon 02-22-2024 PT Coag (PPP) [Time] 12.7 s Normal 9.8-12.8 [facility] Comment on above: Performed By: #### 5 902-2 #### ESTELITA LARKIN ([id number]) [facility] ([facility]) [address] [address] 35949 Comprehensive metabolic 2000 panelon 02-22-2024 Albumin BCP dye [Mass/Vol] 4.4 g/dL 3.4 - 5.0 g/dL [facility] ALP [Catalytic activity/Vol] 69 U/L 33 - 120 U/L [facility] ALT With P-5'-P [Catalytic activity/Vol] 15 U/L 10 - 52 U/L [facility] Comment on above: Patients treated wit h Sulfasalazine may generate falsely decreased results for ALT. Anion gap [Moles/Vol] 12 mmol/L 10 - 20 mmol/L [facility] AST With P-5'-P [Catalytic activity/Vol] 11 U/L 9 - 39 U/L [facility] Bilirubin [Mass/Vol] 0.4 mg/dL 0.0 - 1.2 mg/dL [facility] Calcium [Mass/Vol] 9.2 mg/dL 8.6 - 10. 3 mg/dL [facility] Chloride [Moles/Vol] 103 mmol/L 98 - 107 mmol/L [facility] CO2 [Moles/Vol] 27 mmol/L 21 - 32 mmol/L [facility] Creatinine [Mass/Vol] 1.04 mg/dL 0.50 - 1.30 mg/dL [facility] eGFR - PINF [facility] Comment on above: Calculations of katie mated GFR are performed using the 2020 CKD-EPI Study Refit equation without the race variable for the IDMS-Traceable creatinine methods. https://jasn.asnjournals.org/content/early//ASN.074453018 8 Glucose [Mass/Vol] 100 mg/dL High 74 - 99 mg/dL [facility] Interpretation and review of laboratory results Abnormal [facility] Potassium [Moles/Vol] 3.9 mmol/L 3.5 - 5.3 mmol/L [facility] Protein [Mass/Vol] 7.4 g/dL 6.4 - 8.2 g/dL [facility] Sodium [Moles/Vol] 138 mmol/L 136 - 145 mmol/L [facility] Urea nitrogen [Mass/Vol] 20 mg/dL 6 - 23 mg/dL [facility] Albumin BCP dye [Mass/Vol] 4.4 g/dL Normal 3.4-5.0 [facility] Comment on above: Performed By: #### 2 4323-8 #### ESTELITA LARKIN ([id number]) [facility] ([facility]) [address] [place] [address] ALP [Catalytic activity/Vol] 69 U/L Normal 33-120 [facility] Comment on above: Performed By: #### 2 4323-8 #### ESTELITA LARKIN ([id number]) [facility]) [address] [place] [address] ALT With P-5'-P [Catalytic activity/Vol] 15 U/L Normal 10-52 [facility] Comment on above: Result Comment: Elvi ents treated with Sulfasalazine may generate falsely decreased results for ALT. Performed By: #### 2 4323-8 #### ESTELITA LARKIN ([id number]) [facility]) [address] [place] [address] 51390 Anion gap [Moles/Vol] 12 mmol/L Normal 10-20 [facility] Comment on above: Performed By: #### 2 4323-8 #### ESTELITA LARKIN ([id number]) [facility] ([facility]) [address] [place] [address] 31073 AST With P-5'-P [Catalytic activity/Vol] 11 U/L Normal 9-39 [facility] Comment on above: Performed By: #### 2 4323-8 #### ESTELITA LARKIN ([id number]) [facility] ([facility]) [address] [place] [address] 68420 Bilirubin [Mass/Vol] 0.4 mg/dL Normal 0.0-1.2 [facility] Comment on above: Performed By: #### 2 4323-8 #### ESTELITA LARKIN ([id number]) [facility] ([facility]) [address] [address] 17805 Calcium [Mass/Vol] 9.2 mg/dL Normal 8.6-10.3 [facility] Comment on above: Performed By: #### 2 4323-8 #### ESTELITA LARKIN ([id number]) [facility] ([facility]) [address] [address] 66610 Chloride [Moles/Vol] 103 mmol/L Normal 98-107 [facility] Comment on above: Performed By: #### 2 4323-8 #### ESTELITA LARKIN ([id number]) [facility] ([facility]) [address] [place] [address] CO2 [Moles/Vol] 27 mmol/L Normal 21-32 [facility] Comment on above: Performed By: #### 2 4323-8 #### ESTELITA LARKIN ([id number]) [facility]) [address] [place] [address] Creatinine [Mass/Vol] 1.04 mg/dL Normal 0.50-1.30 [facility] Comment on above: Performed By: #### 2 4323-8 #### ESTELITA LARKIN ([id number]) [facility] ([facility]) [address] [address] 42546 GFR/1.73 sq M.predicted MDRD (S/P/Bld) [Vol rate/Area] mL/min/{1.73_m2} Normal >60 [facility] Comment on above: Result Comment: Calc ulations of estimated GFR are performed using the 2020 CKD-EPI Study Refit equation without the race variable for the IDMS-Traceable creatinine methods. https://jasn.asnjournals.org/content//ASN.937328842 8 Performed By: #### 2 4323-8 #### ESTELITA LARKIN ([id number]) [facility] ([facility]) [address] [place] [address] Glucose [Mass/Vol] 100 mg/dL High 74-99 [facility] Comment on above: Performed By: #### 2 4323-8 #### ESTELITA LARKIN ([id number]) [facility] ([facility]) [address] [place] [address] Potassium [Moles/Vol] 3.9 mmol/L Normal 3.5-5.3 [facility] Comment on above: Performed By: #### 2 4323-8 #### ESTELITA LARKIN ([id number]) [facility] ([facility]) [address] [place] [address] 27575 Protein [Mass/Vol] 7.4 g/dL Normal 6.4-8.2 [facility] Comment on above: Performed By: #### 2 4323-8 #### ESTELITA LARKIN ([id number]) [facility] ([facility]) [address] [place] [address] 72062 Sodium [Moles/Vol] 138 mmol/L Normal 136-145 [facility] Comment on above: Performed By: #### 2 4323-8 #### ESTELITA LARKIN ([id number]) [facility]) [address] [place] [address] 39310 Urea nitrogen [Mass/Vol] 20 mg/dL Normal 6-23 [facility] Comment on above: Performed By: #### 2 4323-8 #### ESTELITA LARKIN ([id number]) [facility] ([facility]) [address] [address] 01248 ESR Westergren method (Bld) [Velocity]on 02-22-2024 ESR (Bld) [Velocity] 25 mm/h High 0 - 15 mm/h [facility] Interpretation and review of laboratory results Abnormal [facility] ESR (Bld) [Velocity] 25 mm/h High 0-15 [facility] Comment on above: Performed By: #### 4 537-7 #### ESTELITA LARKIN ([id number]) [facility] ([facility]) [address] [address] 91308 PT Coag (PPP) [Time]on 02-21 INR Coag (PPP) [Relative time] 1.1 {INR} 0.9 - 1.1 [facility] Interpretation and review of laboratory results Normal [facility] INR Coag (PPP) [Relative time] 1.1 Normal 0.9-1.1 [facility] Comment on above: Performed By: #### 5 902-2 #### ESTELITA LARKIN ([id number]) [facility]) [address] [place] [address] 20431 Protime-INRon 02-22-2024 PT Coag (PPP) [Time] 12.7 s [facility] SST TOPon 02-22-2024 Extra Tube Hold for add-ons. [facility] Comment on above: Auto resulted. [facility] MR CERVICAL SPINE WO IV CONT RASTon 02-17-2024 MR CERVICAL SPINE WO IV CONTRAST Interpreted By: Luana Lawson and Lawrence Austen STUDY: MR CERVICAL SPINE WO IV CONTRAST; MR LUMBAR SPINE W AND WO IV CONTRAST; MR THORACIC SPINE WO IV CONTRAST; 02/17/2024 7:08 pm; 02/17/2024 7:09 pm INDICATION: Signs/Symptoms:pain. ,M54.10 Radiculopathy, site unspecified COMPARISON: Radiograph 10/19/2017, MRI 08/17/2016. ACCESSION NUMBER(S): [id number]; [id number]; [id number] ORDERING CLINICIAN: SHA FOSTER TECHNIQUE: Sagittal T1, T2, STIR, axial T1 and axial T2 weighted images were acquired through the cervical spine. Additionally, postcontrast images of the lumbar spine were obtained following 15 ML of Dotarem administration. FINDINGS: Alignment: Trace C4-5 anterolisthesis. Vertebrae/Intervertebral Discs: The vertebral bodies demonstrate expected height. Small anterior osteophytes. Mild Modic type endplate changes at C6-7. Mild disc space narrowing at C5-6 and C6-7. Cord: There is mild contour abnormality and hyperintense STIR signal within the spinal cord posteriorly at the level of C6-7 in the region of the below mentioned disc osteophyte complex. C1-C2: The cervicomedullary junction appears unremarkable. There is no central canal stenosis. C2-C3: Mild disc bulge. There is no significant central canal or neural foraminal stenosis. C3-C4: There is no posterior disc contour abnormality. No spinal canal or foraminal stenosis C4-C5: There is no posterior disc contour abnormality. Moderate right and mild left neuroforaminal stenosis secondary to uncovertebral spurring. C5-C6: Broad-based right paracentral disc osteophyte complex and uncovertebral spurring resulting in moderate spinal canal, severe right and moderate left neuroforaminal stenosis. C6-C7: Broad-based disc osteophyte complex centrally and uncovertebral spurring resulting in severe bilateral neuroforaminal and severe spinal canal stenosis. C7-T1: There is no posterior disc contour abnormality. There is no significant central canal or neural foraminal stenosis. The prevertebral and posterior paraspinous soft tissues are within normal limits. MRI THORACIC SPINE: Alignment: Within normal limits. Vertebrae/Intervertebral Discs: The vertebral body heights are intact. Marrow signal is within normal limits. Multilevel disc space narrowing with disc desiccation, most severe at the upper thoracic spine. There is no significant central canal stenosis. Spinal cord: Normal in signal. T1-2: There is no significant central canal stenosis. T2-3: There is no significant central canal stenosis. T3-4: Mild right neural foraminal stenosis secondary to facet arthropathy. No spinal canal stenosis. T4-5: There is no significant central canal stenosis. T5-6: There is no significant central canal stenosis. T6-7: There is no significant central canal stenosis. T7-8: Mild left neuroforaminal stenosis secondary to foraminal disc protrusion. No spinal canal stenosis. T8-9: Mild left neuroforaminal stenosis secondary to subarticular and foraminal disc protrusion. No spinal canal stenosis. T9-10: Mild left neuroforaminal stenosis secondary to foraminal disc protrusion. No spinal canal stenosis. T10-11: Mild left neuroforaminal stenosis secondary to foraminal disc protrusion. No spinal canal stenosis. T11-12: There is no significant central canal stenosis. Paraspinous Soft Tissues: Within normal limits. MRI LUMBAR SPINE: Alignment: The vertebral alignment is maintained. Vertebrae/Intervertebral Discs: The vertebral bodies demonstrate expected height. Type 2 Modic changes at the endplates of L4-5 and L5-S1. Mild L4-5 and moderate L5-S1 disc space narrowing with desiccation. Conus medullaris: The conus medullaris terminates at L1-2. T12-L1: No disc bulge. There is no significant central canal or neural foraminal stenosis. L1-2: No disc bulge. There is no significant central canal or neural foraminal stenosis. L2-3: No disc bulge. There is no significant central canal or neural foraminal stenosis. L3-4: Mild disc bulge. Mild bilateral foraminal stenosis without central canal stenosis. L4-5: Broad-based disc protrusion and facet arthropathy. Moderate to severe right foraminal stenosis and mild left foraminal stenosis. There is impingement of the right L5 nerve root in the lateral recess. L5-S1: Broad-base disc protrusion asymmetric to left and facet arthropathy resulting in mild spinal canal, moderate left and mild right neuroforaminal stenosis increased from prior. Status post left L5 laminectomy. There is impingement of the left S1 nerve root in the lateral recess. The prevertebral and posterior paraspinous soft tissues are unremarkable. IMPRESSION: 1. Advanced cervical spondylosis at C5-6 and C6-7 with moderate C5-6 and severe C6-7 spinal canal stenosis as well as severe right C5-6 and bilateral C6- (more content not included)... [facility] Comment on above: Order Comment: [facility] LUMBAR SPINE W AND WO IV CONTRASTon 02-17-2024 MR LUMBAR SPINE W AND WO IV CONTRAST Interpreted By: Luana Lawson and Lawrence Austen STUDY: MR CERVICAL SPINE WO IV CONTRAST; MR LUMBAR SPINE W AND WO IV CONTRAST; MR THORACIC SPINE WO IV CONTRAST; 02/17/2024 7:08 pm; 02/17/2024 7:09 pm INDICATION: Signs/Symptoms:pain. ,M54.10 Radiculopathy, site unspecified COMPARISON: Radiograph 10/19/2017, MRI 08/17/2016. ACCESSION NUMBER(S): [id number]; [id number]; [id number] ORDERING CLINICIAN: SHA FOSTER TECHNIQUE: Sagittal T1, T2, STIR, axial T1 and axial T2 weighted images were acquired through the cervical spine. Additionally, postcontrast images of the lumbar spine were obtained following 15 ML of Dotarem administration. FINDINGS: Alignment: Trace C4-5 anterolisthesis. Vertebrae/Intervertebral Discs: The vertebral bodies demonstrate expected height. Small anterior osteophytes. Mild Modic type endplate changes at C6-7. Mild disc space narrowing at C5-6 and C6-7. Cord: There is mild contour abnormality and hyperintense STIR signal within the spinal cord posteriorly at the level of C6-7 in the region of the below mentioned disc osteophyte complex. C1-C2: The cervicomedullary junction appears unremarkable. There is no central canal stenosis. C2-C3: Mild disc bulge. There is no significant central canal or neural foraminal stenosis. C3-C4: There is no posterior disc contour abnormality. No spinal canal or foraminal stenosis C4-C5: There is no posterior disc contour abnormality. Moderate right and mild left neuroforaminal stenosis secondary to uncovertebral spurring. C5-C6: Broad-based right paracentral disc osteophyte complex and uncovertebral spurring resulting in moderate spinal canal, severe right and moderate left neuroforaminal stenosis. C6-C7: Broad-based disc osteophyte complex centrally and uncovertebral spurring resulting in severe bilateral neuroforaminal and severe spinal canal stenosis. C7-T1: There is no posterior disc contour abnormality. There is no significant central canal or neural foraminal stenosis. The prevertebral and posterior paraspinous soft tissues are within normal limits. MRI THORACIC SPINE: Alignment: Within normal limits. Vertebrae/Intervertebral Discs: The vertebral body heights are intact. Marrow signal is within normal limits. Multilevel disc space narrowing with disc desiccation, most severe at the upper thoracic spine. There is no significant central canal stenosis. Spinal cord: Normal in signal. T1-2: There is no significant central canal stenosis. T2-3: There is no significant central canal stenosis. T3-4: Mild right neural foraminal stenosis secondary to facet arthropathy. No spinal canal stenosis. T4-5: There is no significant central canal stenosis. T5-6: There is no significant central canal stenosis. T6-7: There is no significant central canal stenosis. T7-8: Mild left neuroforaminal stenosis secondary to foraminal disc protrusion. No spinal canal stenosis. T8-9: Mild left neuroforaminal stenosis secondary to subarticular and foraminal disc protrusion. No spinal canal stenosis. T9-10: Mild left neuroforaminal stenosis secondary to foraminal disc protrusion. No spinal canal stenosis. T10-11: Mild left neuroforaminal stenosis secondary to foraminal disc protrusion. No spinal canal stenosis. T11-12: There is no significant central canal stenosis. Paraspinous Soft Tissues: Within normal limits. MRI LUMBAR SPINE: Alignment: The vertebral alignment is maintained. Vertebrae/Intervertebral Discs: The vertebral bodies demonstrate expected height. Type 2 Modic changes at the endplates of L4-5 and L5-S1. Mild L4-5 and moderate L5-S1 disc space narrowing with desiccation. Conus medullaris: The conus medullaris terminates at L1-2. T12-L1: No disc bulge. There is no significant central canal or neural foraminal stenosis. L1-2: No disc bulge. There is no significant central canal or neural foraminal stenosis. L2-3: No disc bulge. There is no significant central canal or neural foraminal stenosis. L3-4: Mild disc bulge. Mild bilateral foraminal stenosis without central canal stenosis. L4-5: Broad-based disc protrusion and facet arthropathy. Moderate to severe right foraminal stenosis and mild left foraminal stenosis. There is impingement of the right L5 nerve root in the lateral recess. L5-S1: Broad-base disc protrusion asymmetric to left and facet arthropathy resulting in mild spinal canal, moderate left and mild right neuroforaminal stenosis increased from prior. Status post left L5 laminectomy. There is impingement of the left S1 nerve root in the lateral recess. The prevertebral and posterior paraspinous soft tissues are unremarkable. IMPRESSION: 1. Advanced cervical spondylosis at C5-6 and C6-7 with moderate C5-6 and severe C6-7 spinal canal stenosis as well as severe right C5-6 and bilateral C6- (more content not included)... [facility] Comment on above: Order Comment: [facility] MR THORACIC SPINE WO IV CONT [facility] 02-17-2024 MR THORACIC SPINE WO IV CONTRAST Interpreted By: Luana Lawson and Lawrence Austen STUDY: MR CERVICAL SPINE WO IV CONTRAST; MR LUMBAR SPINE W AND WO IV CONTRAST; MR THORACIC SPINE WO IV CONTRAST; 02/17/2024 7:08 pm; 02/17/2024 7:09 pm INDICATION: Signs/Symptoms:pain. ,M54.10 Radiculopathy, site unspecified COMPARISON: Radiograph 10/19/2017, MRI 08/17/2016. ACCESSION NUMBER(S): [id number]; [id number]; [id number] ORDERING CLINICIAN: SHA FOSTER TECHNIQUE: Sagittal T1, T2, STIR, axial T1 and axial T2 weighted images were acquired through the cervical spine. Additionally, postcontrast images of the lumbar spine were obtained following 15 ML of Dotarem administration. FINDINGS: Alignment: Trace C4-5 anterolisthesis. Vertebrae/Intervertebral Discs: The vertebral bodies demonstrate expected height. Small anterior osteophytes. Mild Modic type endplate changes at C6-7. Mild disc space narrowing at C5-6 and C6-7. Cord: There is mild contour abnormality and hyperintense STIR signal within the spinal cord posteriorly at the level of C6-7 in the region of the below mentioned disc osteophyte complex. C1-C2: The cervicomedullary junction appears unremarkable. There is no central canal stenosis. C2-C3: Mild disc bulge. There is no significant central canal or neural foraminal stenosis. C3-C4: There is no posterior disc contour abnormality. No spinal canal or foraminal stenosis C4-C5: There is no posterior disc contour abnormality. Moderate right and mild left neuroforaminal stenosis secondary to uncovertebral spurring. C5-C6: Broad-based right paracentral disc osteophyte complex and uncovertebral spurring resulting in moderate spinal canal, severe right and moderate left neuroforaminal stenosis. C6-C7: Broad-based disc osteophyte complex centrally and uncovertebral spurring resulting in severe bilateral neuroforaminal and severe spinal canal stenosis. C7-T1: There is no posterior disc contour abnormality. There is no significant central canal or neural foraminal stenosis. The prevertebral and posterior paraspinous soft tissues are within normal limits. MRI THORACIC SPINE: Alignment: Within normal limits. Vertebrae/Intervertebral Discs: The vertebral body heights are intact. Marrow signal is within normal limits. Multilevel disc space narrowing with disc desiccation, most severe at the upper thoracic spine. There is no significant central canal stenosis. Spinal cord: Normal in signal. T1-2: There is no significant central canal stenosis. T2-3: There is no significant central canal stenosis. T3-4: Mild right neural foraminal stenosis secondary to facet arthropathy. No spinal canal stenosis. T4-5: There is no significant central canal stenosis. T5-6: There is no significant central canal stenosis. T6-7: There is no significant central canal stenosis. T7-8: Mild left neuroforaminal stenosis secondary to foraminal disc protrusion. No spinal canal stenosis. T8-9: Mild left neuroforaminal stenosis secondary to subarticular and foraminal disc protrusion. No spinal canal stenosis. T9-10: Mild left neuroforaminal stenosis secondary to foraminal disc protrusion. No spinal canal stenosis. T10-11: Mild left neuroforaminal stenosis secondary to foraminal disc protrusion. No spinal canal stenosis. T11-12: There is no significant central canal stenosis. Paraspinous Soft Tissues: Within normal limits. MRI LUMBAR SPINE: Alignment: The vertebral alignment is maintained. Vertebrae/Intervertebral Discs: The vertebral bodies demonstrate expected height. Type 2 Modic changes at the endplates of L4-5 and L5-S1. Mild L4-5 and moderate L5-S1 disc space narrowing with desiccation. Conus medullaris: The conus medullaris terminates at L1-2. T12-L1: No disc bulge. There is no significant central canal or neural foraminal stenosis. L1-2: No disc bulge. There is no significant central canal or neural foraminal stenosis. L2-3: No disc bulge. There is no significant central canal or neural foraminal stenosis. L3-4: Mild disc bulge. Mild bilateral foraminal stenosis without central canal stenosis. L4-5: Broad-based disc protrusion and facet arthropathy. Moderate to severe right foraminal stenosis and mild left foraminal stenosis. There is impingement of the right L5 nerve root in the lateral recess. L5-S1: Broad-base disc protrusion asymmetric to left and facet arthropathy resulting in mild spinal canal, moderate left and mild right neuroforaminal stenosis increased from prior. Status post left L5 laminectomy. There is impingement of the left S1 nerve root in the lateral recess. The prevertebral and posterior paraspinous soft tissues are unremarkable. IMPRESSION: 1. Advanced cervical spondylosis at C5-6 and C6-7 with moderate C5-6 and severe C6-7 spinal canal stenosis as well as severe right C5-6 and bilateral C6- (more content not included)... [facility] Comment on above: Order Comment: [facility] C-Reactive Proteinon 01-28- 024 CRP High sensitivity method [Mass/Vol] mg/L 0.0 - 5.0 mg/L [facility] CRP [Mass/Vol] mg/L Normal 0.0-5.0 [facility] Comment on above: Performed By: #### C RP #### [facility] [address] [place] [address] CBC W Auto Differential pane l (Bld)on 01-29-2024 Interpretation and review of laboratory results Abnormal [facility] MCHC (RBC) [Mass/Vol] 34.2 % 33.0 - 37.0 % [facility] Segmented neutrophils/100 WBC (Bld) 60.7 % [facility] CBC With Platelet and Differ entialon 01-29-2024 Basophils (Bld) [#/Vol] 0.1 10*3/uL Normal 0.0-0.2 [facility] Comment on above: Performed By: #### C BCWD #### [facility] [address] [place] [address] Basophils/100 WBC (Bld) 0.5 % Normal [facility] Comment on above: Performed By: #### C BCWD #### [facility] [address] [place] [address] Eosinophils (Bld) [#/Vol] 0.5 10*3/uL Normal 0.0-0.7 [facility] Comment on above: Performed By: #### C BCWD #### [facility] [address] [place] [address] Eosinophils/100 WBC (Bld) 4.8 % Normal [facility] Comment on above: Performed By: #### C BCWD #### [facility] [address] [place] [address] Erythrocyte distribution width (RBC) [Ratio] 12.6 % Normal 11.5-14.5 [facility] Comment on above: Performed By: #### C BCWD #### [facility] [address] [place] [address] Hematocrit (Bld) [Volume fraction] 43.8 % Normal 42.0-52.0 [facility] Comment on above: Performed By: #### C BCWD #### [facility] [address] [place] [address] Hemoglobin (Bld) [Mass/Vol] 15.0 g/dL Normal 14.0-18.0 [employer] Comment on above: Performed By: #### C BCWD #### [facility] [address] [place] [address] Lymphocytes (Bld) [#/Vol] 2.4 10*3/uL Normal 1.0-4.8 [employer] [facility] Comment on above: Performed By: #### C BCWD #### [facility] [address] [place] [address] Lymphocytes/100 WBC (Bld) 24.9 % Normal [facility] Comment on above: Performed By: #### C BCWD #### [facility] [address] [place] [address] MCH (RBC) [Entitic mass] 32.7 pg Critically high 27.0-31.3 [employer] [facility] Comment on above: Performed By: #### C BCWD #### [facility] [address] [place] [address] MCHC 34.2 % Normal 33.0-37.0 [facility] Comment on above: Performed By: #### C BCWD #### [facility] [address] [place] [address] MCV (RBC) [Entitic vol] 95.4 fL Critically high 79.0-92.2 [facility] [employer] Comment on above: Performed By: #### C BCWD #### [facility] [address] [place] [address] Monocytes (Bld) [#/Vol] 0.9 10*3/uL Critically high 0.2-0.8 [employer] Comment on above: Performed By: #### C BCWD #### [facility] [address] [place] [address] Monocytes/100 WBC (Bld) 8.8 % Normal [facility] Comment on above: Performed By: #### C BCWD #### [facility] [address] [place] [address] Neutrophils (Bld) [#/Vol] 5.9 10*3/uL Normal 1.4-6.5 [facility] Comment on above: Performed By: #### C BCWD #### [facility] [address] [place] [address] Neutrophils/100 WBC (Bld) 60.7 % Normal [facility] Comment on above: Performed By: #### C BCWD #### [facility] [address] [place] [address] Platelets (Bld) [#/Vol] 316 10*3/uL Normal 130-400 [facility] Comment on above: Performed By: #### C BCWD #### [facility] [address] [place] [address] RBC (Bld) [#/Vol] 4.59 10*6/uL Low 4.70-6.10 [facility] Comment on above: Performed By: #### C BCWD #### [facility] [address] [place] [address] WBC (Bld) [#/Vol] 9.6 10*3/uL Normal 4.8-10.8 [facility] Comment on above: Performed By: #### C BCWD #### [facility] [address] [place] [address] CRP High sensitivity method [Mass/Vol]on 01-29-2024 [facility] Comprehensive Metabolic Pane ashok 01-29-2024 Albumin [Mass/Vol] 3.9 g/dL Normal 3.5-4.6 [facility] Comment on above: Performed By: #### C MP #### [facility] [address] [place] [address] ALP [Catalytic activity/Vol] 62 U/L Normal 35-104 [facility] Comment on above: Performed By: #### C MP #### [facility] [address] [place] [address] ALT [Catalytic activity/Vol] 9 U/L Normal 0-41 [facility] Comment on above: Performed By: #### C MP #### [facility] [address] [place] [address] Anion gap [Moles/Vol] 8 mmol/L Low 9-15 [facility] Comment on above: Performed By: #### C MP #### [facility] [address] [place] [address] AST [Catalytic activity/Vol] 9 U/L Normal 0-40 [facility] Comment on above: Performed By: #### C MP #### [facility] [address] [place] [address] Bilirubin [Mass/Vol] mg/dL Normal 0.2-0.7 [facility] Comment on above: Performed By: #### C MP #### [facility] [address] [place] [address] Calcium [Mass/Vol] 8.8 mg/dL Normal 8.5-9.9 [facility] Comment on above: Performed By: #### C MP #### [facility] [address] [place] [address] Chloride [Moles/Vol] 105 mmol/L Normal 95-107 [facility] Comment on above: Performed By: #### C MP #### [facility] [address] [place] [address] CO2 [Moles/Vol] 27 mmol/L Normal 20-31 [facility] Comment on above: Performed By: #### C MP #### [facility] [address] [place] [address] Creatinine [Mass/Vol] 1.15 mg/dL Normal 0.70-1.20 [facility] Comment on above: Performed By: #### C MP #### [facility] [address] [place] [address] GFR 81.3 Normal >60 [facility] Comment on above: Result Comment: Ricojar[employer] niccic calculator link https://www.kidney.org/professionals/kdoqi/gfr_calculatorped Effective Dec 15, 2021 These results are not intended for use in patients <18 years of age. eGFR results are calculated without a race factor using the 2020 CKD-EPI equation. Careful clinical correlation is recommended, particularly when comparing to results calculated using previous equations. The CKD-EPI equation is less accurate in patients with extremes of muscle mass, extra-renal metabolism of creatinine, excessive creatinine ingestion, or following therapy that affects renal tubular secretion. Performed By: #### C MP #### [facility] [address] [place] [address] Globulin (S) [Mass/Vol] 2.7 g/dL Normal 2.3-3.5 [facility] Comment on above: Performed By: #### C MP #### [facility] [address] [place] [address] Glucose [Mass/Vol] 85 mg/dL Normal 70-99 [facility] Comment on above: Performed By: #### C MP #### [facility] [address] [place] [address] Potassium [Moles/Vol] 4.0 mmol/L Normal 3.4-4.9 [facility] Comment on above: Performed By: #### C MP #### [facility] [address] [place] [address] Protein [Mass/Vol] 6.6 g/dL Normal 6.3-8.0 [facility] Comment on above: Performed By: #### C MP #### [facility] [address] [place] [address] Sodium [Moles/Vol] 140 mmol/L Normal 135-144 [facility] Comment on above: Performed By: #### C MP #### [facility] [address] [place] [address] Urea nitrogen [Mass/Vol] 20 mg/dL Normal 6-20 [facility] Comment on above: Performed By: #### C #### [facility] [address] [place] [address] Comprehensive metabolic 2000 panelon 01-29-2024 Albumin [Mass/Vol] 3.9 g/dL 3.5 - 4.6 g/dL [facility] ALP [Catalytic activity/Vol] 62 U/L 35 - 104 U/L [facility] ALT [Catalytic activity/Vol] 9 U/L 0 - 41 U/L [facility] Anion gap [Moles/Vol] 8 mmol/L Low [facility] AST [Catalytic activity/Vol] 9 U/L 0 - 40 U/L [facility] Bilirubin [Mass/Vol] mg/dL 0.2 - 0.7 mg/dL [facility] Calcium [Mass/Vol] 8.8 mg/dL 8.5 - 9.9 mg/dL [facility] Chloride [Moles/Vol] 105 mmol/L [facility] CO2 [Moles/Vol] 27 mmol/L [facility] Creatinine [Mass/Vol] 1.15 mg/dL 0.70 - 1.20 mg/dL [facility] GFR/1.73 sq M.predicted among non-blacks MDRD (S/P/Bld) [Vol rate/Area] 81.3 mL/min/{1.73_m2} 60 - PINF [facility] Comment on above: Pediatric calculator link https://www.kidney.org/professionals/kdoqi/gfr_calculatorped Effective Dec 15, 2021 These results are not intended for use in patients <18 years of age. eGFR results are calculated without a race factor using the 2020 CKD-EPI equation. Careful clinical correlation is recommended, particularly when comparing to results calculated using previous equations. The CKD-EPI equation is less accurate in patients with extremes of muscle mass, extra-renal metabolism of creatinine, excessive creatinine ingestion, or following therapy that affects renal tubular secretion. Globulin (S) [Mass/Vol] 2.7 g/dL 2.3 - 3.5 g/dL [facility] Glucose [Mass/Vol] 85 mg/dL 70 - 99 mg/dL [facility] Interpretation and review of laboratory results Abnormal [facility] Potassium [Moles/Vol] 4.0 mmol/L [facility] Protein [Mass/Vol] 6.6 g/dL 6.3 - 8.0 g/dL [facility] Sodium [Moles/Vol] 140 mmol/L [facility] Urea nitrogen [Mass/Vol] 20 mg/dL 6 - 20 mg/dL [facility] ESR Westergren method (Bld) [Velocity]on 01-29-2024 ESR (Bld) [Velocity] 7 mm 0 - 10 mm [facility] Comment on above: ESR Units mm/Hr [facility] Sedimentation Rateon 024 Sedimentation Rate 7 mm Normal 0-10 [facility] Comment on above: Result Comment: ESR Units mm/Hr Performed By: #### E SR #### [facility] [address] [place] [address] Urinalysis with Reflex to Cu ltureon 01-29-2024 Glucose Test strip (U) [Mass/Vol] Negative Negative mg/dL [facility] Interpretation and review of laboratory results Abnormal [facility] Ketones (U) [Mass/Vol] Negative Negative mg/dL [facility] Protein (U) [Mass/Vol] Negative Negative mg/dL [facility] Urine Reflex to Culture Not Indicated [facility] Urobilinogen Qn (U) 0.2 NINF [facility] Urinalysis, reflex to cultur stephen 01-29-2024 Bilirubin Ql (U) Negative Normal Negative [facility] Comment on above: Performed By: #### U AR #### [facility] [address] [place] [id number] [phone] Clarity (U) TURBID Abnormal Clear [facility] Comment on above: Performed By: #### U AR #### [facility] [address] [place] [id number] [phone] Color (U) Yellow Normal Straw/[place]ull [facility] Comment on above: Performed By: #### U AR #### [facility] [address] [place] [address] Glucose Ql (U) Negative Normal Negative [facility] Comment on above: Performed By: #### U AR #### [facility] [address] [place] [address] Hemoglobin Ql (U) Negative Normal Negative [facility] Comment on above: Performed By: #### U AR #### [facility] [address] [place] [address] Ketones Ql (U) Negative Normal Negative [facility] Comment on above: Performed By: #### U AR #### [facility] [address] [place] [address] Leukocyte esterase Test strip Ql (U) Negative Normal Negative [facility] Comment on above: Performed By: #### U AR #### [facility] [address] [place] [address] Nitrite Ql (U) Negative Normal Negative [facility] Comment on above: Performed By: #### U AR #### [facility] [address] [place] [address] pH (U) 7.0 [pH] Normal 5.0-9.0 [facility] Comment on above: Performed By: #### U AR #### [facility] [address] [place] [address] Protein Ql (U) Negative Normal Negative [facility] Comment on above: Performed By: #### U AR #### [facility] [address] [place] [address] Specific gravity (U) [Rel density] 1.022 Normal 1.005-1.03 [facility] Comment on above: Performed By: #### U AR #### [facility] [address] [place] [address] Urine Reflexed to Culture Not Indicated Normal [facility] Comment on above: Performed By: #### U AR #### [facility] [address] [place] [address] Urobilinogen Qn (U) 0.2 {Bassam'U}/dL Normal < 2.0 [facility] Comment on above: Performed By: #### U AR #### [facility] [address] [place] [address] Emergency Department Summary on 01-20-2024 Emergency Department Summary [facility] Medical Records Department [address] [place] [address] Emergency Department Summary 01/20/24 MR#: [id number] Acct: [id number] Name: HARMAN JAMIL Rep #: [id number] : 1980 43 From: Kehinde Cota DO PCP: Dr. Josafat Leonard DO Status:REG ER Location: ED ADDENDUM by Dr. Raghu Sadler DO on 01/20/24 at 1741 Care of the patient was turned over to me pending MRI results. MRI was obtained. There is no evidence of acute fracture or significant bony pathology. There is mild spondylosis and disc degeneration. There is spinal stenosis of L4-L5 more severe on the right and L5-S1 more severe on the left secondary to disc disease. There is no evidence of cauda equina or compression of the spinal canal. This was interpreted by the radiologist and was also independently reviewed by myself. Patient was advised of his findings. Patient was given a repeat dose of oxycodone. Patient was given a prescription for a short course of oxycodone. Patient states he has a spine surgeon and [facility] in [place]. Patient states he will make an appoint with them for next week. Patient was instructed to return if worse in any way. Patient understood and was agreeable with plan. All questions were answered. 01/20/24 1741 Cosigner Signature (if applicable): cc: Dr. Josafat Leonard DO * Signed HPI History of Present Illness Chief Complaint: Lower Extremity Injury [facility] Medical History ADHD Sciatica Cervical radiculopathy Home Medications ???Medication ???Instructions ???Recorded ???Last Taken ???Type cyclobenzaprine 10 mg tablet 10 mg PO QHS PRN PRN Muscle Spasm 04/10/23 Unknown Rx #10 TABLETS diazepam 5 mg tablet (Valium) 5 mg PO TID PRN muscle spasm 5 01/04/24 Unknown Rx days #15 tabs gabapentin 300 mg capsule 300 mg PO BID 01/04/24 Unknown History methocarbamol 500 mg tablet 500 mg PO QPM 01/04/24 Unknown History oxycodone-acetaminophen 5 mg-325 1 tab PO Q6H PRN pain 3 days #12 01/04/24 Unknown Rx mg tablet (Percocet) tabs prednisone 20 mg tablet 40 mg (2 x 20 mg) PO DAILY 5 days 01/04/24 Unknown Rx #10 tabs sulfamethoxazole 800 1 tab PO BID 7 days #14 tabs 01/04/24 Unknown Rx mg-trimethoprim 160 mg tablet (Bactrim DS) naproxen 500 mg tablet (Naprosyn) 500 mg PO BID PRN pain #20 tabs 01/12/24 Unknown Rx Allergy/AdvReac Type Severity Reaction Status Date / Time No Known Allergies Allergy Verified 01/20/24 09:07 Surgical History Hx of tonsillectomy Previous back surgery Social History household members: none Smoking Status: Current every day smoker tobacco type: cigarettes alcohol intake: current alcohol intake frequency: other substance use type: marijuana EXAM Physical Exam Const Vital Signs: 01/20/24 09:08 01/20/24 10:07 01/20/24 11:00 Temperature 98.1 F Temperature Source Oral Pulse Rate 78 76 61 Respiratory Rate 18 18 18 Blood Pressure 125/89 H 129/93 H 126/91 H Blood Pressure Mean 101 105 102 Pulse Ox 100 100 98 Oxygen Delivery Method Room Air 01/20/24 12:00 01/20/24 13:00 01/20/24 14:00 Temperature Temperature Source Pulse Rate 76 Respiratory Rate 18 Blood Pressure 128/88 H 127/89 H 128/91 H Blood Pressure Mean 101 101 103 Pulse Ox 98 Oxygen Delivery Method MDM MDM MDM Narrative Medical decision making narrative: HISTORY OF PRESENT ILLNESS: 43-year-old male presents with hip and groin pain for the last 3 weeks. Notes associated leg numbness. Also complains of back problems. He notes difficulty with his bowel movements. Notes remote history of back surgery. Patient denies any saddle anesthesia, urinary retention, lower extremity weakness, fever or IV drug use, no recent spinal manipulation or surgery, no recent urinary catheterization. REVIEW OF SYSTEMS: Pertinent positives: Hip pain, back pain, bowel incontinence Pertinent negatives: Fever PHYSICAL EXAM: Nursing triage notes reviewed, Vital signs reviewed Constitutional: please see mdm HENT: MMM Eyes: Pupils equal round and reactive to light, Extraocular muscles intact Neck: No stridor, no JVD, full neck ROM Lungs: Clear to auscultation, No wheezing or rales. No increased work of breathing, no conversational dyspnea, no accessory muscle use, no nasal flaring. No respiratory distress noted Heart: Regular rate and rhythm, No murmurs, No rubs and No gallops, 2+ distal pulses (radial, femoral, posterior tibial) in all extremities Abdomen: Soft, there is no tenderness, rigidity, rebound or guarding, no obvious peritoneal signs, no palpable pulsatile ab (more content not included)... Normal [facility] Spine Lumbar (Routine)on Spine Lumbar (Routine) [facility] Imaging Services [address] [place], [place] [address] Spine Lumbar (Routine) MR#: [id number] Acct: [id number] Name: HARMAN JAMIL Rep #: [id number] : 1980 43 From: Tee Brand MD PCP: Dr. Josafat Leonard, Status: REG ER Study: Spine Lumbar (Routine) Date of Exam: 01/20/24 Exam# [id number] Ordering Dr: Kehinde Cota DO [id number] STUDY: MRI LUMBAR SPINE WITHOUT CONTRAST REASON FOR EXAM: Male, 43 years old. low back pain X 3 WEEKS, bowel incontinence 4 TIMES, L LEG WEAKNESS TECHNIQUE: Standardized fat and water weighted pulse sequences were obtained in the sagittal and axial planes. COMPARISON: CT of the lumbar spine January 12, 2024 ____ FINDINGS: T12-L1: Normal endplates. Normal disc height, hydration and morphology. Normal bilateral facet joints. Normal central canal and bilateral lateral recesses. Normal bilateral intervertebral neural foramina. Normal lumbar lordosis. There is no substantial scoliosis. Normal conus medullaris that terminates at L1 L1-2: Normal endplates. Normal disc height, hydration and morphology. Normal bilateral facet joints. Normal central canal and bilateral lateral recesses. Normal bilateral intervertebral neural foramina. L2-3: Normal endplates. Normal disc height, hydration and morphology. Normal bilateral facet joints. Normal central canal and bilateral lateral recesses. Normal bilateral intervertebral neural foramina. L3-4: Normal endplates. Normal disc height, hydration and minimal annular bulge. Normal bilateral facet joints. Normal central canal and bilateral lateral recesses. Normal bilateral intervertebral neural foramina. L4-5: Degenerative endplate changes.. Narrowed disc space with desiccation of the disc and mild annular bulge with small right posterolateral/foraminal disc protrusion. Bilateral facet arthropathy slightly more pronounced on the right. Mild narrowing of the central canal and normal bilateral lateral recesses. Moderate left neural foraminal stenosis and more severe narrowing on the right L5-S1: Degenerative endplate changes.. Narrowed disc space with desiccation of the disc and mild annular bulge with left posterolateral disc extrusion with superior migration of disc fragment compressing and displacing the descending left S1 nerve root.. Bilateral facet arthropathy.. Normal central canal and bilateral lateral recesses. Moderate right neural foraminal stenosis and severe narrowing on the left Normal visualized sacral ala. Normal visualized paraspinous soft tissue structures. ____ MRI/Spine Lumbar (Routine) IMPRESSION: No evidence for acute fracture or other significant bony pathology. Mild spondylosis and disc degeneration Spinal stenosis at L4-5 more severe on the right and L5-S1 more severe on the left secondary to disc disease and facet arthropathy. Findings as above Electronically Signed: Tee Brand MD at 16:47 EST Reading Location ID and State: [address] [place] [address] Tel , Service support , CC: Dr. Josafat Leonard DO; Dr. Kehinde Cota DO Bonding Agent: Signed Normal [facility] Emergency Department Summary on 01-12-2024 Emergency Department Summary [facility] Medical Records Department [address] [place] [address] Emergency Department Summary 01/12/24 MR#: [id number] Acct: [id number] Name: HARMAN JAMIL Rep #: [id number] : 1980 43 From: Raghu Sadler DO PCP: Dr. Josafat Leonard DO Status:DEP ER Location: ED HPI History of Present Illness HPI Narrative: Patient presents with pain in his right groin that began yesterday. Patient states he lost his balance yesterday and fell forward. Patient states he felt slightly cool in his right groin. Patient states his pain is worse with walking, standing, and movement. Patient describes it as tightness. Patient also WITH pain in his leg back. Patient states he is trying to get an MRI and is having difficulty getting insurance approval. Patient admits to some decreased sensation over the lateral aspect of his thighs bilaterally. He is patient denies any bowel or bladder changes. Patient denies any saddle anesthesia. Chief Complaint: Lower Extremity Injury Informant: patient Occured/Mechanism Mechanism/Context: Yes fall Onset/Context/Timing Onset: Yesterday Timing: Continuous Quality of Pain: - (Tightness) Location: Medial aspect of the right thigh Worsened by: Walking, standing, movement Relieved by: Nothing Associated Symptoms Associated Symptoms: Positive for Parasthesia; Negative for Weakness or Loss of Funtion [facility] Medical History ADHD Sciatica Cervical radiculopathy Home Medications ???Medication ???Instructions ???Recorded ???Last Taken ???Type cyclobenzaprine 10 mg tablet 10 mg PO QHS PRN PRN Muscle Spasm 04/10/23 Unknown Rx #10 TABLETS diazepam 5 mg tablet (Valium) 5 mg PO TID PRN muscle spasm 5 01/04/24 Unknown Rx days #15 tabs gabapentin 300 mg capsule 300 mg PO BID 01/04/24 Unknown History methocarbamol 500 mg tablet 500 mg PO QPM 01/04/24 Unknown History oxycodone-acetaminophen 5 mg-325 1 tab PO Q6H PRN pain 3 days #12 01/04/24 Unknown Rx mg tablet (Percocet) tabs prednisone 20 mg tablet 40 mg (2 x 20 mg) PO DAILY 5 days 01/04/24 Unknown Rx #10 tabs sulfamethoxazole 800 1 tab PO BID 7 days #14 tabs 01/04/24 Unknown Rx mg-trimethoprim 160 mg tablet (Bactrim DS) naproxen 500 mg tablet (Naprosyn) 500 mg PO BID PRN pain #20 tabs 01/12/24 Unknown Rx Allergy/AdvReac Type Severity Reaction Status Date / Time No Known Allergies Allergy Verified 01/12/24 09:01 Surgical History Hx of tonsillectomy Previous back surgery Social History household members: none Smoking Status: Current every day smoker tobacco type: cigarettes alcohol intake: current alcohol intake frequency: other substance use type: marijuana ROS ROS ED Constitutional Constitutional ED: Denies chills or fever(s) Eyes Eyes: Denies blurry vision or change in vision ENT ENT ED: Denies rhinorrhea or sore throat Cardiovascular Cardiovascular: Denies chest pain or palpitations Respiratory/Chest Respiratory/Chest: Denies cough or dyspnea Gastrointestinal Gastrointestinal: Denies nausea or vomiting Genitourinary Genitourinary ED: Reports urinary urgency; Denies dysuria, hematuria or urinary incontinence Musculoskeletal Musculoskeletal: Reports back pain; Denies neck pain Integumentary Denies abscess or rash Neurologic Neurologic: Denies headache(s) or weakness Allergic/Immunologic Allergic/Immunologic ED: Denies mouth swelling or urticaria EXAM Physical Exam Const Vital Signs: 01/12/24 09:01 Temperature 99 F Temperature Source Oral Pulse Rate 72 Respiratory Rate 16 Blood Pressure 153/100 H Blood Pressure Mean 117 Pulse Ox 98 Oxygen Delivery Method Room Air Positive well nourished and well developed General Appearance ED: well developed and NAD HEENT Reports moist mucous membranes Back/Spine Back/Spine Narrative: There is tenderness and mild spasm over the right lumbar paraspinal muscles. There is no midline tenderness. There is no bony crepitance or step-off. Range of motion was slightly limited in all motions of the lumbar spine secondary to pain. Straight leg raises were negative bilaterally. Strength is 5/5 bilateral in the lower extremities. There are no sensory deficits noted. Lumbar Spine / Lower Back: straight leg raise negative bilaterally Extremity Extremity Narrative: There is edema and ecchymosis over the medial aspect of the right thigh. There is no bony crepitance or step-off. There is no deformity noted. Range of motion is slightly limited in the left of the right hip secondary to pain. There is no pain with resisted flexion, adduction, and abduction. Neuro oriented x3, CN' (more content not included)... Normal [facility] Pelvis without IV Contraston 01-12-2024 Pelvis without IV Contrast [facility] Imaging Services [address] [place], [place] [address] Pelvis without IV Contrast MR#: [id number] Acct: [id number] Name: HARMAN JAMIL Rep #: [id number] : 1980 M 43 From: Nia Barriga MD PCP: Dr. Josafat Leonard DO Status: REG ER Study: Pelvis without IV Contrast Date of Exam: 01/11 Exam# [id number] Ordering Dr: Raghu Sadler DO [id number] INDICATION: Hip pain EXAMINATION: CT PELVIS BONE - CT Pelvis W/O Contrast Injection TECHNIQUE: Routine noncontrast bone CT protocol was performed of the pelvis. 2-D reformats were performed by the technologist. The protocol utilizes one or more of the following dose reduction techniques: automated exposure control, adjustment of mA and/or kV according to patient size,and/or use of iterative reconstruction technique. IV Contrast dosage and agent: None. RADIATION DOSAGE (If Supplied By Facility): CTDIvol = ( 28.21 ) mGy, DLP = ( 1101.73 ) mGycm COMPARISON: CT dated January 24, 2020 FINDINGS: There is a separate dedicated CT report of the lumbar spine. SOFT TISSUES: No soft tissue swelling or gas. No radiopaque foreign body. There are diverticula arising from the visualized colon. BONES/JOINTS: No acute fracture or subluxation. Normal alignment. There are mild degenerative changes of the hips No sclerotic or destructive changes. CT/Pelvis without IV Contrast IMPRESSION: Degenerative changes of the hips. Electronically Signed: Nia Barriga MD at 10:40 EDT , CC: Dr. Raghu Sadler DO; Dr. Josafat Leonard DO Bonding Agent: Signed Normal [facility] Spine Lumbar without Contras ton 01-12-2024 Spine Lumbar without Contrast [facility] Imaging Services [address] [place] [id number] Spine Lumbar without Contrast MR#: [id number] Acct: [id number] Name: HARMAN JAMIL Rep #: [id number] : 1980 M 43 From: Nia Barriga MD PCP: Dr. Josafat Leonard DO Status: [facility] ER Study: Spine Lumbar without Contrast Date of Exam: Exam# [id number] Ordering Dr: Raghu Sadler DO [id number] INDICATION: Back pain EXAMINATION: CT LUMBAR SPINE - CT Spine Lumbar W/O Contrast Injection TECHNIQUE: Helically acquired images were obtained of the lumbar spine. 2D reformats were reviewed. A radiation dose optimization technique was used for this scan. The protocol utilizes one or more of the following dose reduction techniques: automated exposure control, adjustment of mA and/or kV according to patient size,and/or use of iterative reconstruction technique. IV Contrast dosage and agent: None. RADIATION DOSAGE (If Supplied By Facility): CTDIvol = ( 13.97 ) mGy, DLP = ( 479.37 ) mGycm COMPARISON: CT of the abdomen and pelvis dated January 24, 2020 FINDINGS: VERTEBRAE: No fracture or traumatic subluxation. There is multilevel endplate spondylosis and facet hypertrophy. No discrete lytic or blastic abnormality observed. Normal alignment. DISCS and SPINAL CANAL: There is multilevel degenerative disc disease, most pronounced at L4-L5 and L5-S1. There is a posterior disc osteophyte and facet hypertrophy associated with stenosis of the central canal at L4-L5. VISUALIZED ABDOMEN: Visualized abdominal aorta is not dilated. There is no retroperitoneal adenopathy. There is a separate dedicated CT report of the pelvis. CT/Spine Lumbar without Contrast IMPRESSION: Multilevel degenerative changes. Electronically Signed: Nia Barriga MD at 10:34 EDT , CC: Dr. Raghu Sadler, DO; Dr. Josafat Leonard, DO Bonding Agent: Signed Normal [facility] Basic Metabolic Profile (BMP )on 01-04-2024 BUN/CRE 13.9 RATIO Normal - [facility] Comment on above: Performed By: #### L 501.6710, L500.2500, L100.0100, L101.9900, L503.6005, L501.5200 #### [facility] [address] [place], [address] CA,Total 9.4 mg/dL Normal 8.5-10.1 [facility] Comment on above: Performed By: #### L 501.6710, L500.2500, L100.0100, L101.9900, L503.6005, L501.5200 #### [facility] [address] [place], [address] Chloride [Moles/Vol] 99 mmol/L Normal 98-107 [facility] Comment on above: Performed By: #### L 501.6710, L500.2500, L100.0100, L101.9900, L503.6005, L501.5200 #### [facility] [address] [place], [address] CO2 [Moles/Vol] 32.0 mmol/L Normal 21.0-32.0 [facility] Comment on above: Performed By: #### L 501.6710, L500.2500, L100.0100, L101.9900, L503.6005, L501.5200 #### [facility] [address] [place], [address] Creatinine [Mass/Vol] 1.08 mg/dL Normal 0.70-1.30 [facility] Comment on above: Result Comment: The validity of the calculated GFR GFRAA in patients over 70 years has not been determined. Clinical correlation is essential. Performed By: #### L 501.6710, L500.2500, L100.0100, L101.9900, L503.6005, L501.5200 #### [facility] [address] [place], [address] ECRCL 100.70 ml/min Normal [facility] Comment on above: Performed By: #### L 501.6710, L500.2500, L100.0100, L101.9900, L503.6005, L501.5200 #### [facility] [address] [place], [address] EST GFR - AA 96 mL/min Normal >60 [facility] Comment on above: Result Comment: Afri can [place] GFR Calc Performed By: #### L 501.6710, L500.2500, L100.0100, L101.9900, L503.6005, L501.5200 #### [facility] [address] [place], [address] GAP 4 Low 5-15 [facility] Comment on above: Performed By: #### L 501.6710, L500.2500, L100.0100, L101.9900, L503.6005, L501.5200 #### [facility] [address] [place], [address] GFR/1.73 sq M.predicted among non-blacks MDRD (S/P/Bld) [Vol rate/Area] 80 mL/min/{1.73_m2} Normal >60 [facility] Comment on above: Result Comment: Non- GFR Calc Performed By: #### L 501.6710, L500.2500, L100.0100, L101.9900, L503.6005, L501.5200 #### [facility] [address] [place], [address] Glucose [Mass/Vol] 109 mg/dL High 74-106 [facility] Comment on above: Result Comment: Fast ing Glucose result from 100 to 125 mg/dL suggests IMPAIRED HOMEOSTASIS per A.D.A. criteria. Performed By: #### L 501.6710, L500.2500, L100.0100, L101.9900, L503.6005, L501.5200 #### [facility] [address] [place], [address] Potassium [Moles/Vol] 3.8 mmol/L Normal 3.5-5.1 [facility] Comment on above: Performed By: #### L 501.6710, L500.2500, L100.0100, L101.9900, L503.6005, L501.5200 #### [facility] [address] [place], [address] Sodium [Moles/Vol] 136 mmol/L Normal 136-145 [facility] Comment on above: Performed By: #### L 501.6710, L500.2500, L100.0100, L101.9900, L503.6005, L501.5200 #### [facility] [address] [place], [address] Urea nitrogen [Mass/Vol] 15 mg/dL Normal 7-18 [facility] Comment on above: Performed By: #### L 501.6710, L500.2500, L100.0100, L101.9900, L503.6005, L501.5200 #### [facility] [address] [place], [address] CBC W/Diff, Automatedon 10- Absolute Lymph 2.65 X10 3/uL Normal 0.83-4.51 [facility] Comment on above: Performed By: #### L 501.6710, L500.2500, L100.0100, L101.9900, L503.6005, L501.5200 #### [facility] [address] [place], [address] Absolute Neut 8.9 X10 3/uL High 2.0-7.7 [facility] Comment on above: Performed By: #### L 501.6710, L500.2500, L100.0100, L101.9900, L503.6005, L501.5200 #### [facility] [address] [place], [address] Basophils/100 WBC (Bld) 0.4 % Normal 0-1 [facility] Comment on above: Performed By: #### L 501.6710, L500.2500, L100.0100, L101.9900, L503.6005, L501.5200 #### [facility] [address] [place], [address] Eosinophils/100 WBC (Bld) 3.2 % Normal 0-5 [facility] Comment on above: Performed By: #### L 501.6710, L500.2500, L100.0100, L101.9900, L503.6005, L501.5200 #### [facility] [address] [place], [address] Erythrocyte distribution width (RBC) [Ratio] 11.7 % Normal 11.6-14.6 [facility] Comment on above: Performed By: #### L 501.6710, L500.2500, L100.0100, L101.9900, L503.6005, L501.5200 #### [facility] [address] [facility], [address] Hematocrit (Bld) [Volume fraction] 40.6 % Normal 40-54 [facility] Comment on above: Performed By: #### L 501.6710, L500.2500, L100.0100, L101.9900, L503.6005, L501.5200 #### [facility] [address] [place], [address] Hemoglobin (Bld) [Mass/Vol] 13.9 g/dL Normal 13.0-16.5 [facility] Comment on above: Performed By: #### L 501.6710, L500.2500, L100.0100, L101.9900, L503.6005, L501.5200 #### [facility] [address] [place], [address] IG% 0.400 Normal 0.0-0.9 [facility] Comment on above: Result Comment: IG% - Immature Granulocytes (promyelocytes, myelocytes and metamyelocytes) > 1% indicates that a LEFT SHIFT is Present. Performed By: #### L 501.6710, L500.2500, L100.0100, L101.9900, L503.6005, L501.5200 #### [facility] [address] [place], [address] Lymphocytes/100 WBC (Bld) 19.6 % Normal 19-41 [facility] Comment on above: Performed By: #### L 501.6710, L500.2500, L100.0100, L101.9900, L503.6005, L501.5200 #### [facility] [address] [place], [address] MCH (RBC) [Entitic mass] 32.0 pg Normal 27.0-32.0 [facility] Comment on above: Performed By: #### L 501.6710, L500.2500, L100.0100, L101.9900, L503.6005, L501.5200 #### [facility] [address] [place], [address] MCHC (RBC) [Mass/Vol] 34.2 g/dL Normal 32-36 [facility] Comment on above: Performed By: #### L 501.6710, L500.2500, L100.0100, L101.9900, L503.6005, L501.5200 #### [facility] [address] [place], [address] MCV (RBC) [Entitic vol] 93.5 fL Normal 80-94 [facility] Comment on above: Performed By: #### L 501.6710, L500.2500, L100.0100, L101.9900, L503.6005, L501.5200 #### [facility] [address] [place], [address] Monocytes/100 WBC (Bld) 10.3 % High 0-10 [facility] Comment on above: Performed By: #### L 501.6710, L500.2500, L100.0100, L101.9900, L503.6005, L501.5200 #### [facility] [address] [place], [address] Neutrophils/100 WBC (Bld) 66.1 % Normal 47-70 [facility] Comment on above: Performed By: #### L 501.6710, L500.2500, L100.0100, L101.9900, L503.6005, L501.5200 #### [facility] [address] [place], [address] Nucleated RBC (Bld) [#/Vol] 0 10*3/uL Normal 0-5 [facility] Comment on above: Performed By: #### L 501.6710, L500.2500, L100.0100, L101.9900, L503.6005, L501.5200 #### [facility] [address] [place], [address] Platelet mean volume (Bld) [Entitic vol] 11.9 fL Normal 6.2-12.0 [facility] Comment on above: Performed By: #### L 501.6710, L500.2500, L100.0100, L101.9900, L503.6005, L501.5200 #### [facility] [address] [place], [address] Platelets (Bld) [#/Vol] 235 10*3/uL Normal 150-450 [facility] Comment on above: Performed By: #### L 501.6710, L500.2500, L100.0100, L101.9900, L503.6005, L501.5200 #### [facility] [address] [place], [address] RBC (Bld) [#/Vol] 4.34 10*6/uL Low 4.6-6.2 [facility] Comment on above: Performed By: #### L 501.6710, L500.2500, L100.0100, L101.9900, L503.6005, L501.5200 #### [facility] [address] [place], [address] RDW SD 40.2 fl Normal 35.1-43.9 [facility] Comment on above: Performed By: #### L 501.6710, L500.2500, L100.0100, L101.9900, L503.6005, L501.5200 #### [facility] [address] [facility] [place], [address] WBC (Bld) [#/Vol] 13.5 10*3/uL High 4.4-11.0 [facility] Comment on above: Performed By: #### L 501.6710, L500.2500, L100.0100, L101.9900, L503.6005, L501.5200 #### [facility] [address] [place], [address] CRPon 01-04-2024 C-REACTIVE PROT 7.22 mg/L High 0.0-3.0 [facility] Comment on above: Result Comment: C-Re active Protein (CRP) provides useful information for the diagnosis, therapy and monitoring of inflammatory processes and associated diseases. For the evaluation of Relative Risk for Cardiovascular Disease, a High Sensitivity CRP (HSCRP) should be ordered. Performed By: #### L 501.6710, L500.2500, L100.0100, L101.9900, L503.6005, L501.5200 ####[facility] [address] [facility] [place], [address] Emergency Department Summary on 01-04-2024 Emergency Department Summary [facility] Medical Records Department [address] [place] [address] Emergency Department Summary 01/04/24 MR#: [id number] Acct: [id number] Name: HARMAN JAMIL Rep #: [id number] : 1980 43 From: Demetrius Andrew DO PCP: Dr. Josafat Leonard DO Status:DEP ER Location: ED HPI History of Present Illness Chief Complaint: Back Informant: patient Narrative Narrative: Patient is a 43-year-old male with past medical history of ADHD as well as chronic back pain. He states he has been dealing with back problems for quite some time. He states that he was scheduled to have an MRI to further assess the cause of his symptoms but that his insurance denied it. He reports in August or September of this year he had a CT scan of his cervical thoracic and lumbar spine showing degeneration but no obvious nerve impingement. Patient states that there is been no recent trauma or increased physical activity. He states he has been taking his prescribed medications as directed. However despite doing so he has been having persistent low back pain which radiates down into his legs. He denies any loss of bowel or bladder control or IV drug use. He denies any recent surgical procedures such as injections or lumbar fusion. He states that he does not feel like he can function based on the persistent pain and has been having difficulty sleeping and with this presents for evaluation [facility] Medical History ADHD Cervical radiculopathy Sciatica Home Medications ???Medication ???Instructions ???Recorded ???Last Taken ???Type cyclobenzaprine 10 mg tablet 10 mg PO QHS PRN PRN Muscle Spasm 04/10/23 Unknown Rx #10 TABLETS diazepam 5 mg tablet (Valium) 5 mg PO TID PRN muscle spasm 5 01/04/24 Unknown Rx days #15 tabs gabapentin 300 mg capsule 300 mg PO BID 01/04/24 Unknown History methocarbamol 500 mg tablet 500 mg PO QPM 01/04/24 Unknown History oxycodone-acetaminophen 5 mg-325 1 tab PO Q6H PRN pain 3 days #12 01/04/24 Unknown Rx mg tablet (Percocet) tabs prednisone 20 mg tablet 40 mg (2 x 20 mg) PO DAILY 5 days 01/04/24 Unknown Rx #10 tabs sulfamethoxazole 800 1 tab PO BID 7 days #14 tabs 01/04/24 Unknown Rx mg-trimethoprim 160 mg tablet (Bactrim DS) Allergy/AdvReac Type Severity Reaction Status Date / Time No Known Allergies Allergy Verified 01/04/24 05:55 Surgical History Hx of tonsillectomy Previous back surgery Social History household members: none Smoking Status: Current every day smoker tobacco type: cigarettes alcohol intake: current alcohol intake frequency: other substance use type: marijuana ROS ROS ED Constitutional Constitutional ED: Denies chills or fever(s) Eyes Eyes: Denies blurry vision or change in vision ENT ENT ED: Denies sore throat Cardiovascular Cardiovascular: Denies chest pain Respiratory/Chest Respiratory/Chest: Denies cough or dyspnea Gastrointestinal Gastrointestinal: Denies abdominal pain, diarrhea, nausea or vomiting Genitourinary Genitourinary ED: Denies dysuria or hematuria Musculoskeletal Musculoskeletal: Reports back pain Integumentary Denies rash Neurologic Neurologic: Reports paresthesias and weakness; Denies headache(s) Hematologic/Lymphatic Hematologic/Lymphatic: Denies easy bleeding or easy bruising EXAM Physical Exam Const Vital Signs: 01/04/24 08:00 01/04/24 08:29 Temperature 97.6 F L Pulse Rate 72 78 Respiratory Rate 14 16 Blood Pressure 128/78 H 126/78 H Blood Pressure Mean 94 94 Pulse Ox 98 99 Oxygen Delivery Method Room Air Positive well nourished and well developed General Appearance ED: well developed HEENT HEENT Narrative: Normocephalic atraumatic Eyes PERRL and EOMs intact bilaterally General Eye ED: Negative for scleral icterus Neck supple Neck Narrative: No nuchal rigidity or meningeal signs Resp normal respiratory effort and clear to auscultation bilaterally Cardio regular rate and regular rhythm GI normal to inspection, nondistended, normoactive bowel sounds, non-tender, non-distended and no masses Auscultation: normoactive bowel sounds Palpation: soft Narrative: Rectal tone is normal Back/Spine Back/Spine Narrative: No bony deformity or step-off of the thoracic or lumbar spine no midline tenderness to palpation. No saddle anesthesia. Negative straight leg raise. No clonus or Babinski. Patellar reflexes are plus 1 out of 4 bilaterally Extremity Extremity Narrative: Patient has asymmetric erythema to the anterior aspect of the distal third of the right monsalve that has asymmetric warmth compared to the left concerning for developi (more content not included)... Normal [facility] Erythrocyte Sed Rateon 01-03 SED RATE 5 mm/hr Normal 0-20 [facility] Comment on above: Performed By: #### L 501.6710, L500.2500, L100.0100, L101.9900, L503.6005, L501.5200 #### [facility] [place], [address] Lactic Acidon 01-04-2024 Lactate [Moles/Vol] 1.2 mmol/L Normal 0.4-1.9 [facility] Comment on above: Order Comment: Y Performed By: #### L 501.6710, L500.2500, L100.0100, L101.9900, L503.6005, L501.5200 #### [facility] [address] [place], [place], [address] Magnesiumon 01-04-2024 Magnesium [Mass/Vol] 2.3 mg/dL Normal 1.6-2.6 [facility] Comment on above: Performed By: #### L 501.6710, L500.2500, L100.0100, L101.9900, L503.6005, L501.5200 ####[facility] [address] [place], [place], [address] XR LUMBAR SPINE (2-3 VIEWS)o n 11-14-2023 XR LUMBAR SPINE (2-3 VIEWS) EXAMINATION: 3 XRAY VIEWS OF THE LUMBAR SPINE 11/14/2023 10:19 pm COMPARISON: Lumbar spine radiographs May 25, 2017 HISTORY: ORDERING SYSTEM PROVIDED HISTORY: back pain TECHNOLOGIST PROVIDED HISTORY: Reason for exam:->back pain What reading provider will be dictating this exam?->CRC FINDINGS: Normal mineralization. No traumatic malalignment. No fracture. Vertebral body heights are maintained. Multilevel endplate degenerative change and disc height loss most notably L3-L4 and L4-L5 with mild facet arthrosis. IMPRESSION: 1. No fracture or traumatic malalignment. 2. Multilevel degenerative change most notably L3-L4 and L4-L5. Interpreted by: Kevni Alexander DO Signed by: Kevin Alexander DO 11/14/[address] [facility] CBC With Platelet and Differ entialon 08-28-2023 Basophils (Bld) [#/Vol] 0.1 10*3/uL Normal 0.0-0.2 [facility] Comment on above: Performed By: #### C BCWD #### [facility] [address] [place] [address] Basophils/100 WBC (Bld) 0.5 % Normal [facility] Comment on above: Performed By: #### C BCWD #### [facility] [address] [place] [address] Eosinophils (Bld) [#/Vol] 0.3 10*3/uL Normal 0.0-0.7 [facility] Comment on above: Performed By: #### C BCWD #### [facility] [address] [place] [address] Eosinophils/100 WBC (Bld) 2.7 % Normal [facility] Comment on above: Performed By: #### C BCWD #### [facility] [address] [place] [address] Erythrocyte distribution width (RBC) [Ratio] 11.7 % Normal 11.5-14.5 [facility] Comment on above: Performed By: #### C BCWD #### [facility] [address] [place] [address] Hematocrit (Bld) [Volume fraction] 41.5 % Low 42.0-52.0 [facility] Comment on above: Performed By: #### C BCWD #### [facility] [address] [place] [address] Hemoglobin (Bld) [Mass/Vol] 14.2 g/dL Normal 14.0-18.0 [facility] Comment on above: Performed By: #### C BCWD #### [facility] [address] [place] [address] Lymphocytes (Bld) [#/Vol] 3.1 10*3/uL Normal 1.0-4.8 [facility] Comment on above: Performed By: #### C BCWD #### [facility] [address] [place] [address] Lymphocytes/100 WBC (Bld) 28.7 % Normal [facility] Comment on above: Performed By: #### C BCWD #### [facility] [address] [place] [address] MCH (RBC) [Entitic mass] 32.0 pg Critically high 27.0-31.3 [facility] Comment on above: Performed By: #### C BCWD #### [facility] [address] [place] [address] MCHC 34.2 % Normal 33.0-37.0 [facility] Comment on above: Performed By: #### C BCWD #### [facility] [address] [place] [address] MCV (RBC) [Entitic vol] 93.5 fL Critically high 79.0-92.2 [facility] Comment on above: Performed By: #### C BCWD #### [facility] [address] [place] [address] Monocytes (Bld) [#/Vol] 1.0 10*3/uL Critically high 0.2-0.8 [facility] Comment on above: Performed By: #### C BCWD #### [facility] [address] [place] [address] Monocytes/100 WBC (Bld) 9.5 % Normal [facility] Comment on above: Performed By: #### C BCWD #### [facility] [address] [place] [address] Neutrophils (Bld) [#/Vol] 6.4 10*3/uL Normal 1.4-6.5 [facility] Comment on above: Performed By: #### C BCWD #### [facility] [address] [place] [address] Neutrophils/100 WBC (Bld) 58.3 % Normal [facility] Comment on above: Performed By: #### C BCWD #### [facility] [address] [place] [address] Platelets (Bld) [#/Vol] 223 10*3/uL Normal 130-400 [facility] Comment on above: Performed By: #### C BCWD #### [facility] [address] [place] [address] RBC (Bld) [#/Vol] 4.44 10*6/uL Low 4.70-6.10 [facility] Comment on above: Performed By: #### C BCWD #### [facility] [address] [place] [address] WBC (Bld) [#/Vol] 10.9 10*3/uL Critically high 4.8-10.8 [facility] Comment on above: Performed By: #### C BCWD #### [facility] [address] [place] [address] CT CERVICAL SPINE WO CONTRAS Ton 08-28-2023 CT CERVICAL SPINE WO CONTRAST EXAMINATION: CT OF THE CERVICAL SPINE WITHOUT CONTRAST; CT OF THE LUMBAR SPINE WITHOUT CONTRAST; CT OF THE THORACIC SPINE WITHOUT CONTRAST 08/28/2023 10:16 pm TECHNIQUE: CT of the cervical spine was performed without the administration of intravenous contrast. Multiplanar reformatted images are provided for review. Automated exposure control, iterative reconstruction, and/or weight based adjustment of the mA/kV was utilized to reduce the radiation dose to as low as reasonably achievable.; CT of the lumbar spine was performed without the administration of intravenous contrast. Multiplanar reformatted images are provided for review. Adjustment of mA and/or kV according to patient size was utilized. Automated exposure control, iterative reconstruction, and/or weight based adjustment of the mA/kV was utilized to reduce the radiation dose to as low as reasonably achievable.; CT of the thoracic spine was performed without the administration of intravenous contrast. Multiplanar reformatted images are provided for review. Automated exposure control, iterative reconstruction, and/or weight based adjustment of the mA/kV was utilized to reduce the radiation dose to as low as reasonably achievable. COMPARISON: Lumbar spine radiographs July 22, 2016. HISTORY: ORDERING SYSTEM PROVIDED HISTORY: numbness to hands TECHNOLOGIST PROVIDED HISTORY: Reason for exam:->numbness to hands Decision Support Exception - unselect if not a suspected or confirmed emergency medical condition->Emergency Medical Condition ([place]) What reading provider will be dictating this exam?->CRC FINDINGS: BONES/ALIGNMENT: There is no acute fracture or traumatic malalignment. 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 DEGENERATIVE CHANGES: Mild multilevel degenerative change. Most notably in the cervical and lumbar spine. Most severe cervical spine area is C5 through C7 where there is uncovertebral joint hypertrophy, disc height loss, and endplate degenerative change. In the lumbar spine marked disc height loss, endplate degenerative change and vacuum phenomena at L4-L5 and L5-S1. Minimal endplate degenerative change of the thoracic spine. No high-grade osseous narrowing of the spinal. SOFT TISSUES: There is no prevertebral soft tissue swelling. IMPRESSION: 1. No acute abnormality of the cervical, thoracic, or lumbar spine. 2. Multilevel degenerative changes as above. Interpreted by: Kevin Alexander DO Signed by: Kevin Alexander DO 08/28/[address] [facility] CT LUMBAR SPINE WO CONTRASTo n 08-28-2023 CT LUMBAR SPINE WO CONTRAST EXAMINATION: CT OF THE CERVICAL SPINE WITHOUT CONTRAST; CT OF THE LUMBAR SPINE WITHOUT CONTRAST; CT OF THE THORACIC SPINE WITHOUT CONTRAST 08/28/2023 10:16 pm TECHNIQUE: CT of the cervical spine was performed without the administration of intravenous contrast. Multiplanar reformatted images are provided for review. Automated exposure control, iterative reconstruction, and/or weight based adjustment of the mA/kV was utilized to reduce the radiation dose to as low as reasonably achievable.; CT of the lumbar spine was performed without the administration of intravenous contrast. Multiplanar reformatted images are provided for review. Adjustment of mA and/or kV according to patient size was utilized. Automated exposure control, iterative reconstruction, and/or weight based adjustment of the mA/kV was utilized to reduce the radiation dose to as low as reasonably achievable.; CT of the thoracic spine was performed without the administration of intravenous contrast. Multiplanar reformatted images are provided for review. Automated exposure control, iterative reconstruction, and/or weight based adjustment of the mA/kV was utilized to reduce the radiation dose to as low as reasonably achievable. COMPARISON: Lumbar spine radiographs July 22, 2016. HISTORY: ORDERING SYSTEM PROVIDED HISTORY: numbness to hands TECHNOLOGIST PROVIDED HISTORY: Reason for exam:->numbness to hands Decision Support Exception - unselect if not a suspected or confirmed emergency medical condition->Emergency Medical Condition ([place]) What reading provider will be dictating this exam?->CRC FINDINGS: BONES/ALIGNMENT: There is no acute fracture or traumatic malalignment. 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 DEGENERATIVE CHANGES: Mild multilevel degenerative change. Most notably in the cervical and lumbar spine. Most severe cervical spine area is C5 through C7 where there is uncovertebral joint hypertrophy, disc height loss, and endplate degenerative change. In the lumbar spine marked disc height loss, endplate degenerative change and vacuum phenomena at L4-L5 and L5-S1. Minimal endplate degenerative change of the thoracic spine. No high-grade osseous narrowing of the spinal. SOFT TISSUES: There is no prevertebral soft tissue swelling. IMPRESSION: 1. No acute abnormality of the cervical, thoracic, or lumbar spine. 2. Multilevel degenerative changes as above. Interpreted by: Kevin Alexander DO Signed by: Kevin Alexander DO 08/28/[address] [facility] CT THORACIC SPINE WO CONTRAS Ton 08-28-2023 CT THORACIC SPINE WO CONTRAST EXAMINATION: CT OF THE CERVICAL SPINE WITHOUT CONTRAST; CT OF THE LUMBAR SPINE WITHOUT CONTRAST; CT OF THE THORACIC SPINE WITHOUT CONTRAST 08/28/2023 10:16 pm TECHNIQUE: CT of the cervical spine was performed without the administration of intravenous contrast. Multiplanar reformatted images are provided for review. Automated exposure control, iterative reconstruction, and/or weight based adjustment of the mA/kV was utilized to reduce the radiation dose to as low as reasonably achievable.; CT of the lumbar spine was performed without the administration of intravenous contrast. Multiplanar reformatted images are provided for review. Adjustment of mA and/or kV according to patient size was utilized. Automated exposure control, iterative reconstruction, and/or weight based adjustment of the mA/kV was utilized to reduce the radiation dose to as low as reasonably achievable.; CT of the thoracic spine was performed without the administration of intravenous contrast. Multiplanar reformatted images are provided for review. Automated exposure control, iterative reconstruction, and/or weight based adjustment of the mA/kV was utilized to reduce the radiation dose to as low as reasonably achievable. COMPARISON: Lumbar spine radiographs July 22, 2016. HISTORY: ORDERING SYSTEM PROVIDED HISTORY: numbness to hands TECHNOLOGIST PROVIDED HISTORY: Reason for exam:->numbness to hands Decision Support Exception - unselect if not a suspected or confirmed emergency medical condition->Emergency Medical Condition ([place]) What reading provider will be dictating this exam?->CRC FINDINGS: BONES/ALIGNMENT: There is no acute fracture or traumatic malalignment. 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 DEGENERATIVE CHANGES: Mild multilevel degenerative change. Most notably in the cervical and lumbar spine. Most severe cervical spine area is C5 through C7 where there is uncovertebral joint hypertrophy, disc height loss, and endplate degenerative change. In the lumbar spine marked disc height loss, endplate degenerative change and vacuum phenomena at L4-L5 and L5-S1. Minimal endplate degenerative change of the thoracic spine. No high-grade osseous narrowing of the spinal. SOFT TISSUES: There is no prevertebral soft tissue swelling. IMPRESSION: 1. No acute abnormality of the cervical, thoracic, or lumbar spine. 2. Multilevel degenerative changes as above. Interpreted by: Kevin Alexander DO Signed by: Kevin Alexander DO 08/28/[address] [facility] Comprehensive Metabolic Pane ashok 08-28-2023 Albumin [Mass/Vol] 4.6 g/dL Normal 3.5-4.6 [facility] Comment on above: Performed By: #### C MP #### [facility] [address] [place] [address] ALP [Catalytic activity/Vol] 70 U/L Normal 35-104 [facility] Comment on above: Performed By: #### C MP #### [facility] [address] [place] [address] ALT [Catalytic activity/Vol] 13 U/L Normal 0-41 [facility] Comment on above: Performed By: #### C MP #### [facility] [address] [place] [address] Anion gap [Moles/Vol] 11 mmol/L Normal 9-15 [facility] Comment on above: Performed By: #### C MP #### [facility] [address] [place] [address] AST [Catalytic activity/Vol] 13 U/L Normal 0-40 [facility] Comment on above: Performed By: #### C MP #### [facility] [address] [place] [address] Bilirubin [Mass/Vol] mg/dL Normal 0.2-0.7 [facility] Comment on above: Performed By: #### C MP #### [facility] [address] [place] [address] Calcium [Mass/Vol] 9.2 mg/dL Normal 8.5-9.9 [facility] Comment on above: Performed By: #### C MP #### [facility] [address] [place] [address] Chloride [Moles/Vol] 105 mmol/L Normal 95-107 [facility] Comment on above: Performed By: #### C MP #### [facility] [address] [place] [address] CO2 [Moles/Vol] 25 mmol/L Normal 20-31 [facility] Comment on above: Performed By: #### C MP #### [facility] [address] [place] [address] Creatinine [Mass/Vol] 1.15 mg/dL Normal 0.70-1.20 [facility] Comment on above: Performed By: #### C MP #### [facility] [address] [place] [address] GFR 81.5 Normal >60 [facility] Comment on above: Result Comment: Abbie atric calculator link https://www.kidney.org/professionals/kdoqi/gfr_calculatorped Effective Dec 15, 2021 These results are not intended for use in patients <18 years of age. eGFR results are calculated without a race factor using the 2020 CKD-EPI equation. Careful clinical correlation is recommended, particularly when comparing to results calculated using previous equations. The CKD-EPI equation is less accurate in patients with extremes of muscle mass, extra-renal metabolism of creatinine, excessive creatinine ingestion, or following therapy that affects renal tubular secretion. Performed By: #### C MP #### [facility] [address] [place] [address] Globulin (S) [Mass/Vol] 2.9 g/dL Normal 2.3-3.5 [facility] Comment on above: Performed By: #### C MP #### [facility] [address] [place] [address] Glucose [Mass/Vol] 97 mg/dL Normal 70-99 [facility] Comment on above: Performed By: #### C MP #### [facility] [address] [place] [address] Potassium [Moles/Vol] 3.6 mmol/L Normal 3.4-4.9 [facility] Comment on above: Performed By: #### C MP #### [facility] [address] [place] [address] Protein [Mass/Vol] 7.5 g/dL Normal 6.3-8.0 [facility] Comment on above: Performed By: #### C MP #### [facility] [address] [place] [address] Sodium [Moles/Vol] 141 mmol/L Normal 135-144 [facility] Comment on above: Performed By: #### C MP #### [facility] [address] [place] [address] Urea nitrogen [Mass/Vol] 22 mg/dL Critically high 6-20 [facility] Comment on above: Performed By: #### C MP #### [facility] [address] [place] [address] Emergency Department Summary on 05-18-2023 Emergency Department Summary [facility] Medical Records Department [address] [place] [address] Emergency Department Summary 05/18/23 MR#: [id number] Acct: [id number] Name: HARMAN JAMIL Rep #: [id number] : 1980 42 From: Mynor Colon DO PCP: Dr. Josafat Leonard DO Status:DEP ER Location: ED HPI History of Present Illness Chief Complaint: Back Informant: patient Narrative Narrative: 42-year-old male with a history of chronic sciatica presenting to the emergency room with low back pain. Patient states he underwent a laminectomy in 2016 at [facility]. He states that recently he has been experiencing increased low back pain particular on the right and now a new on the left. He notes some radicular symptoms but no muscle strength or sensory losses. No bowel or bladder dysfunctions. No fevers. Denies IV drug use or underlying immunosuppression. He states that a few days ago he had an MRI at [facility] and is supposed to see his surgeon at [facility] on 21 May 2023. His surgeon's name is Dr. Sha Foster. He states that in his consultation with Dr. Foster I do not prescribe pain medication until surgery is scheduled. He states that he has been taking Tylenol and rhzc-qbu-opcgled medications to try to help push through the pain but last night he only got about 1 hour of sleep due to pain. Pain is exacerbated by movements. [facility] Medical History ADHD Cervical radiculopathy Sciatica Home Medications cyclobenzaprine 10 mg tablet 10 mg PO QHS PRN PRN Muscle Spasm #10 TABLETS 04/10/23 [Rx Last Taken Unknown] hydrocodone-acetaminophen 5-325mg 5mg-325mg 1 tab PO Q6H PRN PRN Pain 3 days #10 TABLETS 04/10/23 [Rx Last Taken Unknown] naproxen 500 mg tablet 500 mg PO BID PRN #20 tabs 04/10/23 [Rx Last Taken Unknown] hydrocodone-acetaminophen 5-325mg 5mg-325mg 1 tab PO Q6H PRN PRN Pain 3 days #12 TABLETS 05/18/23 [Rx Last Taken Unknown] naproxen 500 mg tablet (Naprosyn) 500 mg PO BID PRN pain #20 tabs 05/18/23 [Rx Last Taken Unknown] Allergy/AdvReac Type Severity Reaction Status Date / Time No Known Allergies Allergy Verified 05/18/23 14:08 Surgical History Hx of tonsillectomy Previous back surgery Social History household members: none Smoking Status: Current every day smoker tobacco type: cigarettes alcohol intake: current alcohol intake frequency: other substance use type: marijuana ROS ROS ED Constitutional Constitutional ED: Denies chills, fever(s) or weight loss Eyes Eyes: Denies change in vision or diplopia ENT ENT ED: Denies ear pain, rhinorrhea or sore throat Cardiovascular Cardiovascular: Denies chest pain, orthopnea, palpitations or racing heartbeat Respiratory/Chest Respiratory/Chest: Denies cough, dyspnea or orthopnea Gastrointestinal Gastrointestinal: Denies abdominal pain, diarrhea, nausea or vomiting Genitourinary Genitourinary ED: Denies dysuria, hematuria or urinary frequency Musculoskeletal Musculoskeletal: Reports back pain; Denies arthralgias, myalgias or neck pain Integumentary Denies abscess or rash Neurologic Neurologic: Denies headache(s), paresthesias or weakness Psychiatric Psychiatric: Denies anxiety, depression, suicidal ideation or suicidal thoughts Endocrine Endocrinology: Denies polydipsia, polyphagia or polyuria Allergic/Immunologic Allergic/Immunologic ED: Denies mouth swelling, tongue swelling or urticaria EXAM Physical Exam Const Vital Signs: 05/18/23 14:08 Temperature 97.7 F L Temperature Source Temporal Pulse Rate 89 Respiratory Rate 22 H Blood Pressure 137/104 H Blood Pressure Mean 115 Pulse Ox 99 Oxygen Delivery Method Room Air Positive well nourished and well developed General Appearance ED: well developed HEENT Reports normocephalic, head/scalp atraumatic and moist mucous membranes Eyes PERRL and EOMs intact bilaterally Neck no lymphadenopathy, supple and no JVD Resp normal respiratory effort and clear to auscultation bilaterally Cardio regular rate, regular rhythm and no murmurs GI normal to inspection, nondistended, normoactive bowel sounds and non-tender Palpation: soft Back/Spine no CVA tenderness Back/Spine Narrative: Patient reports painful range of motion in the left and right L5/SI joint region. No rash or tissue texture changes to suggest underlying infection. Lumbar Spine / Lower Back: ROM limited Extremity normal to inspection General Extremety ED: Negative for edema General Extremity: Negative for edema Neuro oriented x3 and CN's II-XII intact bilaterally Neuro Narrative: Normal sensory exam of the lower extremity Sensorium / Or (more content not included)... Normal [facility] XR Lumbar spine 4 Viewson Interpreted By: Sha Chacon, STUDY: XR LUMBAR SPINE COMPLETE 4+ VIEWS; ; 05/04/2023 4:17 pm INDICATION: Signs/Symptoms:pain. ACCESSION NUMBER(S): [id number] ORDERING CLINICIAN: SHA FOSTER FINDINGS: AP lateral flexion extension x-rays lumbar spine show rcjh-pa-[id number] degenerative changes at L4-5 and mild degenerative changes at the other levels. There is some disc height loss and endplate irregularity. There is no spondylolisthesis. There is no spondylolysis. There is no fractures. Lumbar lordosis is maintained. Range of motion with flexion and extension is preserved. There is no scoliosis. Pedicles are visualized at all levels. Bony pelvis and hips are partially visualized and are normal. Signed by: Sha Foster 05/04/2023 4:32 PM Dictation workstation: [id number] Sha Foster MD - 05/04/2023 Interpreted By: Sha Foster, STUDY: XR LUMBAR SPINE COMPLETE 4+ VIEWS; ; 05/04/2023 4:17 pm INDICATION: Signs/Symptoms:pain. ACCESSION NUMBER(S): [id number] ORDERING CLINICIAN: SHA FOSTER FINDINGS: AP lateral flexion extension x-rays lumbar spine show yhkh-ed-tpovkhtr degenerative changes at L4-5 and mild degenerative changes at the other levels. There is some disc height loss and endplate irregularity. There is no spondylolisthesis. There is no spondylolysis. There is no fractures. Lumbar lordosis is maintained. Range of motion with flexion and extension is preserved. There is no scoliosis. Pedicles are visualized at all levels. Bony pelvis and hips are partially visualized and are normal. Signed by: Sha Foster 05/04/2023 4:32 PM Dictation workstation: [id number] [facility] Work Phone: [facility] Work Phone: Radiology Study observation (narrative) [facility] Work Phone: Emergency Department Summary on 04-10-2023 Emergency Department Summary [facility] Medical Records Department [address] [place] [address] Emergency Department Summary 04/10/23 MR#: [id number] Acct: [id number] Name: ALBINOLENARDHARMAN Rep #: [id number] : 1980 42 From: Raghu Sadler DO PCP: Dr. Josafat Leonard DO Status:DEP ER Location: ED HPI History of Present Illness Chief Complaint: Back Informant: patient Onset/Context/Timing Onset: Yesterday Context: Gradual Onset Injury: - (Stretching) Timing: Continuous Quality: Sharp Location: Lumbar, Buttock and Left Leg Worsened by: improves with Nothing Relieved by: Nothing Associated Symptoms Associated Symptoms: Tingling and Radiation to Left Leg; Negative for Numbness, Radiation to Right Leg, Fever, Abdominal Pain, Dysuria, Unable to Ambulate, Unable to Transfer, Urinary Retention, Urinary Incontinence, Constipation or Fecal Incontinence Narrative Narrative: Patient presents with back pain that began yesterday. Patient states he felt some pain in his low back and left hip. Patient states the pain has since radiated down his left leg to the lateral aspect of his left ankle. Patient states he was doing some stretching exercises when the pain began. Patient describes the seen as sharp. Patient states that has been constant. Patient states nothing makes it better and nothing makes it worse. Patient admits to some tingling in his left hip area. Patient denies any bowel or bladder changes. Patient denies any saddle anesthesia. [facility] Medical History ADHD Cervical radiculopathy Sciatica Home Medications cyclobenzaprine 10 mg tablet 10 mg PO QHS PRN PRN Muscle Spasm #10 TABLETS 04/10/23 [Rx Last Taken Unknown] hydrocodone-acetaminophen 5-325mg 5mg-325mg 1 tab PO Q6H PRN PRN Pain 3 days #10 TABLETS 04/10/23 [Rx Last Taken Unknown] naproxen 500 mg tablet 500 mg PO BID PRN #20 tabs 04/10/23 [Rx Last Taken Unknown] Allergy/AdvReac Type Severity Reaction Status Date / Time No Known Allergies Allergy Verified 04/10/23 16:38 Surgical History Hx of tonsillectomy Previous back surgery Social History household members: none Smoking Status: Current every day smoker tobacco type: cigarettes alcohol intake: current alcohol intake frequency: other substance use type: marijuana ROS ROS ED Constitutional Constitutional ED: Denies chills or fever(s) Eyes Eyes: Denies blurry vision or change in vision ENT ENT ED: Denies rhinorrhea or sore throat Cardiovascular Cardiovascular: Denies chest pain or palpitations Respiratory/Chest Respiratory/Chest: Denies cough or dyspnea Gastrointestinal Gastrointestinal: Denies nausea or vomiting Genitourinary Genitourinary ED: Denies dysuria or hematuria Musculoskeletal Musculoskeletal: Reports back pain; Denies neck pain Integumentary Denies abscess or rash Neurologic Neurologic: Denies headache(s) or weakness Allergic/Immunologic Allergic/Immunologic ED: Denies mouth swelling or urticaria EXAM Physical Exam Const Vital Signs: 04/10/23 16:36 Temperature 98.1 F Temperature Source Oral Pulse Rate 95 Respiratory Rate 26 H Blood Pressure 152/100 H Blood Pressure Mean 117 Pulse Ox 99 Oxygen Delivery Method Room Air Positive well nourished and well developed General Appearance ED: well developed and NAD HEENT Reports moist mucous membranes Neck supple and no JVD Back/Spine Back/Spine Narrative: There is tenderness over the lumbar spine and left lumbar paraspinal muscles. There is tenderness over the sciatic notch. Range of motion was limited in all motions of the lumbar spine secondary to pain. Strength is 5/5 bilaterally in the lower extremities. There are no sensory deficits noted. Deep tendon reflexes are 2/4 bilaterally in the lower extremities. Lumbar Spine / Lower Back: ROM limited and straight leg raise negative bilaterally Neuro oriented x3 and no sensory deficits noted Sensorium / Orientation: alert Motor Exam: strength 5/5 throughout Deep Tendon Reflexes: Rt Patellar (L4): 2+, Lt Patellar (L4): 2+, Rt Ankle (S1): 2+ and Lt Ankle (S1): 2+ Deep Tendon Reflexes Back: Rt Patellar (L4): 2+, Lt Patellar (L4): 2+, Rt Ankle (S1): 2+ and Lt Ankle (S1): 2+ Psych mental status grossly normal MDM MDM MDM Narrative Medical decision making narrative: Patient was advised that this is most likely a muscular strain or sciatica. Patient was advised that x-rays are not indicated or helpful at this time. Patient agrees with this. Patient was given injections of morphine, Toradol, and Norflex. Treatment and Re-Evaluation Narrative: Patient is feeling better on reevaluation. Patient was given a p (more content not included)... Normal [facility] Absolute lymphocyte counton 08-20-2021 Lymphocytes Auto (Unsp spec) [#/Vol] 0.41 10*3/uL 0.83-4.51 [facility] Work Phone: Basophil percentageon 2021 Basophils/100 WBC (Bld) 0.5 % 0-1 [facility] Work Phone: Chloride [Moles/Vol] 100 mmol/L 98-107 [facility] Work Phone: Eosinophils/100 WBC (Bld) 0.0 % 0-5 [facility] Work Phone: Glucose [Mass/Vol] 120 mg/dL 74-106 [facility] Work Phone: Comment on above: Fasting Glucose resu lt from 100 to 125 mg/dL suggests IMPAIRED HOMEOSTASIS per A.D.A. criteria. Neutrophils (Bld) [#/Vol] 0.8 10*3/uL 2.0-7.7 [facility] Work Phone: Neutrophils/100 WBC (Bld) 40.8 % 47-70 [facility] Work Phone: Potassium [Moles/Vol] 3.2 mmol/L 3.5-5.1 [facility] Work Phone: Sodium [Moles/Vol] 134 mmol/L 136-145 [facility] Work Phone: [phone] WBC (Bld) [#/Vol] 2.0 10*3/uL 4.4-11.0 [facility] Work Phone: [phone] Blood erythrocytes count (nu mber/volume)on 08-20-2021 RBC (Bld) [#/Vol] 4.44 10*6/uL 4.6-6.2 [facility] Work Phone: Blood hemoglobin measurement (mass/volume)on 08-20-2021 Hemoglobin (Bld) [Mass/Vol] 14.0 g/dL 13.0-16.5 [facility] Work Phone: [phone] Blood lymphocytes/100 leukoc yteson 08-20-2021 Lymphocytes/100 WBC (Bld) 20.4 % 19-41 [facility] Work Phone: Blood manual differential co mment interpretation (narrative result)on 08-20-2021 Manual differential comment Balke (Bld) [Interp] SEE COMMENTS [facility] Work Phone: Comment on above: NEUTROPENIA NOTEDLYM PHOPENIA NOTED Blood monocytes/100 leukocyt eson 08-20-2021 Monocytes/100 WBC (Bld) 37.8 % 0-10 [facility] Work Phone: Blood platelet adequacy dete ction by light microscopyon 08-20-2021 Platelets LM Ql (Bld) ADEQUATE ADEQ [facility] Work Phone: Blood platelet mean volumeon 08-20-2021 Platelet mean volume (Bld) [Entitic vol] 12.0 fL 6.2-12.0 [facility] Work Phone: Determination of erythrocyte mean corpuscular volume (MCV)on 08-20-2021 MCV (RBC) [Entitic vol] 93.5 fL 80-94 [facility] Work Phone: Hematocrit Auto (Bld) [Volum e fraction]on 08-20-2021 Hematocrit (Bld) [Volume fraction] 41.5 % 40-54 [facility] Work Phone: Laboratory - Chemistry and C hemistry - challengeon 08-20-2021 CO2 [Moles/Vol] 25.0 mmol/L 21.0-32.0 [facility] Work Phone: Urea nitrogen/Creatinin e [Mass ratio] 11.2 mg/mg 10-20 [facility] Work Phone: Laboratory - Drug toxicology on 08-20-2021 Amphetamines Ql (U) Negative [facility] Work Phone: Benzodiazepines Ql (U) Negative [facility] Work Phone: Cannabinoids Screen Ql (U) Positive [facility] Work Phone: Cocaine Ql (U) Negative [facility] Work Phone: Opiates Ql (U) Negative [facility] Work Phone: Laboratory - Hematology and Cell countson 08-20-2021 Anisocytosis Ql (Bld) RARE [facility] Work Phone: Erythrocyte distribution width (RBC) [Entitic vol] 40.6 fL 35.1-43.9 [facility] Work Phone: Erythrocyte distribution width (RBC) [Ratio] 11.9 % 11.6-14.6 [facility] Work Phone: Immature granulocytes/100 WBC (Bld) 0.500 % 0.0-0.9 [facility] Work Phone: Comment on above: IG% - Immature Granu locytes (promyelocytes, myelocytes and metamyelocytes) > 1% indicates that a LEFT SHIFT is Present. MCH (RBC) [Entitic mass] 31.5 pg 27.0-32.0 [facility] Work Phone: Nucleated RBC/100 WBC (Bld) [Ratio] 0 % 0-5 [facility] Work Phone: Laboratory - Microbiology an d Antimicrobial susceptibilityon 08-20-2021 SARS-CoV-2 (COVID-19) RNA CATALINO+probe Ql (Unsp spec) Detected Not Detect [facility] Work Phone: Comment on above: Normal Reference Ran ge: Not DetectedMethod:(RT-PCR) real-time reverse transcriptase PCRLuminex EMILIANA Instrument*The Food and Drug Administration (FDA) has issued an Emergency Use Authorization (EAU) for the EMILIANA SARS-CoV-2 Assay for the rapid detection of the virus that causes COVID-19. This test has been validated, but the FDAs independent review of this validation is pending.*Negative results do not preclude infection and should not be used as the sole basis for treatment or patient management. Optimum specimen types and timing for peak viral levels during infections caused by SARS-CoV-2 have not been determined. Collection of multiple specimens from the same patient may be necessary to detect the virus. The possibility of a false negative result should be considered if the patient has clinical presentation or has had recent exposure. MCHC Auto (RBC) [Mass/Vol]on 08-20-2021 MCHC (RBC) [Mass/Vol] 33.7 g/dL 32-36 [facility] Work Phone: Macrocytes detectionon 08-20 Macrocytes Ql (Bld) RARE [facility] Work Phone: No Panel Informationon 08-20 MDMA (Ecstasy) Screen Negative [facility] Work Phone: Urine Barbiturates Screen Negative [facility] Work Phone: Urine Drug Screen Comment [facility] Work Phone: Comment on above: CONFIRMATORY TESTING FOR ALL POSITIVE URINE DRUG SCREENRESULTS WILL ONLY BE SENT OUT UPON PHYSICIAN ORDER. VISTA Urine Drug Screen methods provide only preliminaryanalytical test results. A more specific alternate chemicalmethod must be used in order to obtain a confirmedanalytical result. Gas chromatography/mass spectrometery(GC/MS) is the preferred confirmatory method. Clinicalconsideration and professional judgement should be appliedto any drug of abuse test result, particularly whenpreliminary positive results are used. URINE TCA TESTING MUST BE ORDERED SEPARATELY. USE TESTMNEMONIC: [facility] Urine Methadone Screen Negative [facility] Work Phone: Estimated Creatinine Clearance Calc 95.67 ml/min [facility] Work Phone: Estimated GFR (MDRD) Amer 90 mL/min >60 [facility] Work Phone: Comment on above: GFR Calc Estimated GFR (MDRD) Non-Af Amer 74 mL/min >60 [facility] Work Phone: Comment on above: Non- GFR Calc Ethyl Alcohol Level 5.0 mg/dL [facility] Work Phone: Comment on above: The serum:whole bloo d ethanol ratio is approximately 1.14and varies slightly with hematocrit. Medical Alcohol reference interval and critical value innon-tolerant individuals; 50 - 100 Impairment 100 Intoxication 100 - 250 Severe Poisoning 250 - 400 Deep/possible fatal coma Platelets bldon 08-20-2021 Platelets (Bld) [#/Vol] 172 10*3/uL 150-450 [facility] Work Phone: RBC morphologyon 08-20-2021 RBC morphology finding Nom (Bld) N CHROM NORMAL NORM C&C [facility] Work Phone: Review by pathologiston Pathologist review Blake (Unsp spec) [Interp] Reviewed [facility] Work Phone: Comment on above: Previous reported re sult: July wilfredo Edited by: RGOSAMI on 08/21/21:1235Leukopenia and neutropenia. Clinical correlation necessary.Randall Milan M.D. 08/21/21 AMENDED REPORT 08/21/21 1235 PATH REV previously reported as: July wilfredo SARS-CoV-2 (COVID-19) Ag IA. rapid Ql (Resp)on 08-20-2021 SARS-CoV-2 Antigen (Rapid) SARS-CoV-2 (COVID 19) [facility] Work Phone: Serum or plasma calcium whitney urement (mass/volume)on 08-20-2021 Calcium [Mass/Vol] 8.7 mg/dL 8.5-10.1 [facility] Work Phone: Serum or plasma creatinine m easurement (mass/volume)on 08-20-2021 Creatinine [Mass/Vol] 1.16 mg/dL 0.70-1.30 [facility] Work Phone: Comment on above: The validity of the calculated GFR & GFRAA in patients over 70 years has not been determined. Clinical correlation is essential. Serum or plasma urea nitroge n measurement (mass/volume)on 08-20-2021 Urea nitrogen [Mass/Vol] 13 mg/dL 7-18 [facility] Work Phone: Thin prep Papanicolaou smear with manual screeningon 08-20-2021 Thin prep Papanicolaou smear with manual screening 9 5-15 [facility] Work Phone: Urine phencyclidine (PCP) de tectionon 08-20-2021 Phencyclidine Ql (U) Negative [facility] Work Phone: MRI RT SHOULDER W/O CONTRAST on 01-26-2018 Thyrotropin Qn DATE OF EXAM: Jan 26 2018 4:37PMCLINICAL HISTORY/ Name: HARMAN JAMILSTUDY:MRI RT SHOULDER W/O CONTRAST; 01/26/2018 4:37 pmINDICATION:shoulder pain.COMPARISON:None. CLINICIAN:SHA FOSTERTECHNIQUE:Multiplanar multisequence MRI of the right shoulder was performed without intravenous or intra-articular gadolinium based contrast.FINDINGS:ROTATOR CUFF AND BICEPS TENDON:The supraspinatus tendon is intact.The infraspinatus tendon is intact.The teres minor tendon is intact.The subscapularis tendon is intact.The cuff musculature:MaintainedBiceps tendon: The biceps labral anchor, tendon at the rotator interval and at the bicipital groove appear intact.JOINTS:Glenohumeral Joint: Maintained.Acromioclavicular joint: Maintained.Acromion configuration :Type 1, without lateral downsloping.Joint effusion: None significant.GLENOID LABRUM AND LIGAMENTS:Labrum: Intact.Glenohumeral ligaments: Intact.OSSEOUS STRUCTURES:The bone marrow signal is homogeneous.The cortical margins are maintained.SOFT TISSUES:No subcutaneous edema.CONCLUSION: IMPRESSION:1. Unremarkable exam. Normal [facility] Healthcare Office Visiton 10-04-2017 Office Visit Chief Complaint Visi t For: Other Pt in today for routine lab results FU / c/o numbness in hand/fingers. History of Present IllnessSee Patient Discussion/Summary section Review of SystemsDenies N/V/D/C, no YUNG/S/V, denies rashes/lesions, no CP/SOB. Positive for back/butt/leg pain.All other systems were negative. Active Problems Drug therapy (V58.69) (Z79.899) Herniated nucleus pulposus, L4-5 (722.10) (M51.26) Hyperlipidemia (272.4) (E78.5) Neuralgia neuritis, sciatic nerve (724.3) (M54.30) Overweight (278.02) (E66.3) Prediabetes (790.29) (R73.03) Preoperative evaluation to rule out surgical contraindication (V72.83) (Z01.818) Sciatica (724.3) (M54.30) Screening for condition (V82.9) (Z13.9) Vitamin D deficiency (268.9) (E55.9) Past Medical History History of backache (V13.59) (Z87.39) History of Leg pain (729.5) (M79.606) Surgical History History of Tonsillectomy Social History Alcohol use (V49.89) (Z78.9) Current every day smoker (305.1) (F17.200) Allergies No Known Drug Allergies Recorded By: Luz Jane; 09/06/2015 8:22:19 AM Current Meds No Reported Medications Requested for: 04Oct2017 Recorded PAYAM = N; Record; Last Updated By: Luz Jane; 10/04/2017 4:49:43 PM Vitals Vital Signs Recorded: 04Oct2017 03:57PMHeart [id number], LUE, AfatyheGqqcterkl31, LUE, SittingHeight6 ft Dmziuq832 lb 9 ozBMI Ceuodomqhp46.02BSA Calculated2.16O2 Kprrhfsbnf93 Physical ExamGen: NADeyes: EOMI, ENT: hearing grossly intact, no nasal dischargeresp: CTABL, without R/Rheart: RRR without MRGGI: abd: S/ND/NT, BS+lymph: no axillary, cervical, supraclavicular lymphadenopathy noted MS: gait grossly WNL, shoulder range of motion grossly within normal limits.derm: no rashes or lesions notedneuro: CN II-XII grossly intactpsych: AANDOx3 Results/Data HIV Antigen/Antibody [id number] 10:Josafat Clemente Test NameResultFlagReferenceHIV AG/AB SCREENNON REACTIVESee BelowSOURCE: Reference Range: NONREACTIVE HIV Ag/Ab screen is performed using the Siemens [employer] Centaur HIV Ag/Ab Combo assay which detects the presence of HIV p24 antigen as well as antibodies to HIV-1 (Group M and O) and HIV-2. Syphilis [id number] 10:17AJosafat Peterson Test NameResultFlagReferenceSyphilis IgGNON REACTIVESee BelowSOURCE: Reference Range: NONREACTIVE Patients receiving more than 5 mg/day of biotin may have interference in test results. A sample should be taken no sooner than eight hours after previous dose. Contact [phone] for additional information. Vitamin D 25-Gbzivlo20Tvx7739 10:17AJosafat Peterson Test NameResultFlagReferenceVitamin D 25-Hydroxy, Level14 ng/mLASOURCE: . DEFICIENCY: < 20 NG/ML INSUFFICIENCY: 20-29 NG/ML OPTIMUM LEVEL: 30-80 NG/ML POSSIBLE TOXICITY: > 80 NG/ML THIS ASSAY ACCURATELY QUANTIFIES THE SUM OF VITAMIN D3, 25-HYDROXY AND VIT D2,25-HYDROXY. Diagnoses/Problems Vitamin D deficiency (268.9) (E55.9) Shoulder pain (719.41) (M25.519) Paresthesia of upper extremity (782.0) (R20.2) Hyperlipidemia (272.4) (E78.5) Drug therapy (V58.69) (Z79.899) Prediabetes (790.29) (R73.03) OrdersParesthesia of upper extremity, Shoulder pain Orthopedic- General Referral Evaluation and Treatment Right shoulder and arm painwith some paresthesias. Shoulders been bothering him about 2-1/2 months post armwrestling. And numbness tingling and strange sensation has just been for the last3 or 4 days, since he has been doing some hammering at work. -->> Referto orthopedics for further evaluation and treatment. Status: Hold For - Scheduling Requested for: [id number] Ordered;For: Paresthesia of upper extremity, Shoulder pain; Ordered By: Josafat Leonard Performed: Order Comments: If possible he might be able to come in tomorrow for the walk-in clinic, otherwise schedule with someone. Thanks. Due: [id number] pain Start: Ibuprofen 800 MG Oral Tablet; TAKE 1 TABLET 3 TIMES DAILY WITH FOOD ASNEEDED for pain Rx By: Josafat Leonard; Dispense: 20 Days ; #:60 Tablet; Refill: 1;For: Shoulder pain; PAYAM = N; Sent To: [facility]Vitamin D deficiency Start: Vitamin D3 5000 UNIT Oral Capsule; 1 po qd Rx By: Josafat Leonard; Dispense: 0 Days ; #:30 Capsule; Refill: 11;For: Vitamin D deficiency; PAYAM = N; Sent To: [facility] Patient Discussion/Summarysmoking about 1/2 ppd, -->> advised to quit;- drug therapy, last annual labs were done about 2 years ago.-->> we'll do annual labs today.Labs reviewed: -->> plan to repeat annual labs drawn September 2018.- vitamin D deficiency, 14 on these labs, previously 30, goal is 55 or 60 or more, has not been taking vitamin D recently, -->> We'll prescribe 5000 units daily. Plan to recheck vitamin D in about 6 months.- hyperlipidemia; HDL 36.9, previously 33, goal is 45 or more so that's too low. LDL 116, previously 107, goal is 130 or less; triglycerides are 216. -->> Patient will work on diet and exercise, less red meat, less fast foods, more fish, more olive oil.- Prediabetes, A1c on these labs is 5.2, had slightly elevated A1c on labs from 2 years ago.-->> Recheck A1c with next annual labs.- Screening for conditions, STD labs were all negative. Right shoulder and arm pain with some paresthesias. Shoulders been bothering him about 2-1/2 months post arm wrestling. And numbness tingling and strange sensation has just been for the last 3 or 4 days, since he has been doing some hammering at work. -->> Refer to orthopedics for further evaluation and treatment.We will print a copy of all your labs today for you to take with you. Gender see doc in 3 months, we will check an in office lipid panel and that appointment. End of Encounter MedsIbuprofen 800 MG Oral Tablet; TAKE 1 TABLET 3 TIMES DAILY WITH FOOD ASNEEDED for pain;Therapy: [id number] to (Evaluate:55Lsr9323); Last Rx:[id number] OrderedVitamin D3 5000 UNIT Oral Capsule; 1 po qd;Therapy: 70Nrh5681 to (Last Rx:[id number]) Ordered Signatures Electronically signed by : Josafat Leonard DO; Oct 04 2017 4:50PM EST (Author) Normal Touchworks Office Visiton 09-28-2017 Office Visit Chief Complaint Visi t For: Other Pt in today for general check up / STD testing. History of Present IllnessSee Patient Discussion/Summary section Review of SystemsDenies N/V/D/C, no YUNG/S/V, denies rashes/lesions, no CP/SOB. Positive for back/butt/leg pain.All other systems were negative. Active Problems Drug therapy (V58.69) (Z79.899) Herniated nucleus pulposus, L4-5 (722.10) (M51.26) Hyperlipidemia (272.4) (E78.5) Neuralgia neuritis, sciatic nerve (724.3) (M54.30) Overweight (278.02) (E66.3) Preoperative evaluation to rule out surgical contraindication (V72.83) (Z01.818) Sciatica (724.3) (M54.30) Vitamin D deficiency (268.9) (E55.9) Past Medical History History of backache (V13.59) (Z87.39) History of Leg pain (729.5) (M79.606) Surgical History History of Tonsillectomy Social History Alcohol use (V49.89) (Z78.9) Current every day smoker (305.1) (F17.200) Allergies No Known Drug Allergies Recorded By: Luz Jane; 09/06/2015 8:22:19 AM Vitals Vital Signs Recorded: 69Hgc1580 09:53AMHeart Bfrg82Ubbkdhni185, LUE, ImtlqrkOcwdyomza51, LUE, SittingHeight6 ft Krhbun765 lb 2 ozBMI Swfudxsstf32.36BSA Calculated2.17O2 Zsnwjmhshd51 Physical ExamGen: NADeyes: EOMI, ENT: hearing grossly intact, no nasal dischargeresp: CTABL, without R/Rheart: RRR without MRGGI: abd: S/ND/NT, BS+lymph: no axillary, cervical, supraclavicular lymphadenopathy noted MS: gait grossly WNL,derm: no rashes or lesions notedneuro: CN II-XII grossly intactpsych: AANDOx3 Diagnoses/Problems Drug therapy (V58.69) (Z79.899) Hyperlipidemia (272.4) (E78.5) Overweight (278.02) (E66.3) Vitamin D deficiency (268.9) (E55.9) Prediabetes (790.29) (R73.03) Screening for condition (V82.9) (Z13.9) OrdersDrug therapy, Hyperlipidemia, Overweight, Prediabetes, Screening for condition, VitaminD deficiency Education Material Provided for Patient; Status:Complete; Done: 50Zzo2484 Ordered; For:Drug therapy, Hyperlipidemia, Overweight, Prediabetes, Screening for condition, Vitamin D deficiency; Ordered By:Josafat Leonard; Complete Blood Count + Differential; Source:Blood (BLD); Status:Active; Requestedfor:28Sep2017; Perform:Lab Services - Lab To Draw (Blood Test); Due:27Dec2017;Ordered; For:Drug therapy, Hyperlipidemia, Overweight, Prediabetes, Screening for condition, Vitamin D deficiency; Ordered By:Josafat Leonard; Comprehensive Metabolic Panel; Status:Active; Requested for:28Sep2017; Perform:Lab Services - Lab To Draw (Blood Test); Due:27Dec2017;Ordered; For:Drug therapy, Hyperlipidemia, Overweight, Prediabetes, Screening for condition, Vitamin D deficiency; Ordered By:Josafat Leonard; Hemoglobin A1C; Source:Blood (BLD); Status:Active; Requested for:28Sep2017; Perform:Lab Services - Lab To Draw (Blood Test); Due:27Dec2017;Ordered; For:Drug therapy, Hyperlipidemia, Overweight, Prediabetes, Screening for condition, Vitamin D deficiency; Ordered By:Josafat Leonard; Lipid Panel; Source:Blood (BLD); Status:Active; Requested for:80Aqj1377; Perform:Lab Services - Lab To Draw (Blood Test); Due:27Dec2017;Ordered; For:Drug therapy, Hyperlipidemia, Overweight, Prediabetes, Screening for condition, Vitamin D deficiency; Ordered By:Josafat Leonard; Magnesium, Serum; Source:Blood (BLD); Status:Active; Requested for:28Sep2017; Perform:Lab Services - Lab To Draw (Blood Test); Due:27Dec2017;Ordered; For:Drug therapy, Hyperlipidemia, Overweight, Prediabetes, Screening for condition, Vitamin D deficiency; Ordered By:Josafat Leonard; TSH WITH REFLEX TO FREE T4 IF ABNORMAL; Source:Blood (BLD); Status:Active;Requested for:04Raw8900; Perform:Lab Services - Lab To Draw (Blood Test); Due:27Dec2017;Ordered; For:Drug therapy, Hyperlipidemia, Overweight, Prediabetes, Screening for condition, Vitamin D deficiency; Ordered By:Josafat Leonard; Vitamin D 25-Hydroxy; Source:Blood (BLD); Status:Active; Requested for:30Kmd3268; Perform:Lab Services - Lab To Draw (Blood Test); Due:27Dec2017;Ordered; For:Drug therapy, Hyperlipidemia, Overweight, Prediabetes, Screening for condition, Vitamin D deficiency; Ordered By:Josafat Leonard;Screening for condition GC + Chlamydia By Amplified Detection; Source:Urine; Status:Active; Requestedfor:11Apc0829; Perform:Lab Services - Lab To Draw (Non-Blood Test); Due:27Dec2017;Ordered; For:Screening for condition; Ordered By:Josafat Leonard; HIV Antigen/Antibody Screen; Source:Blood (BLD); Status:Active; Requestedfor:16Jod3080; Perform:Lab Services - Lab To Draw (Blood Test); Due:27Dec2017;Ordered; For:Screening for condition; Ordered By:Josafat Leonard; Syphilis IGG; Status:Active; Requested for:28Sep2017; Perform:Lab Services - Lab To Draw (Blood Test); Due:27Dec2017;Ordered; For:Screening for condition; Ordered By:Josafat Leonard; Patient Discussion/Summarysmoking about 1/2 ppd, -->> advised to quit;- drug therapy, last annual labs were done about 2 years ago.-->> we'll do annual labs today.- vitamin D deficiency, 30 on labs from 2 years ago, goal is 55 or 60 or more, has not been taking vitamin D recently, -->> we'll check vitamin D with these labs. Recommend restarting or 5000 units daily like he used to be on.- hyperlipidemia; HDL 33, LDL around 107 on previous labs; -->> we'll be checking a lipid panel with these labs ordering.- Prediabetes, new diagnosis based on labs from 2 years ago when the guidelines were different. -->> Gave patient handout on carbohydrates to avoid. We checking A1c with these labs ordering.- Screening for conditions, patient would like checked for STDs. -->> We'll do testing today also for STDs.We will draw your blood work today to do your labs and as well as a urine test.Return to see doc next Wednesday, October 04 as late as possible in the day. We will go over your labs and give you copies of your labs at that time. Signatures Electronically signed by : Josafat Leonard DO; Sep 28 2017 10:19AM EST (Author) Normal [facility] PELVIS AP ONLYon 05-27-2017 PELVIS AP ONLY DATE OF EXAM: May 26 2017 11:32PLINICAL HISTORY/ Name: ALBINOLENARDLIZY:PELVIS AP ONLY; 05/26/2017 11:32 pmINDICATION:Trauma.COMPARISON: None. CLINICIAN:MARCIE CRUZS:There is no acute fracture, dislocation, or radiopaque foreign body.Significant stool and bowel gas obscures the bony details.CONCLUSION: IMPRESSION:No acute fracture or dislocation. Follow-up with CT if clinically indicated. Normal [facility] SPINE L MIN 4 VIEWSon 2017 SPINE L MIN 4 VIEWS DATE OF EXAM: May 26 2017 11:32PLINICAL HISTORY/ Name: VENTURA LIZY:SPINE L MIN 4 VIEWS; 05/26/2017 11:32 pmINDICATION:Non Trauma.COMPARISON:12/18/2015ACC ESSION NUMBER(S):[id number] CLINICIAN:MARCIE CRUZS:No significant interval change.There is no acute fracture or dislocation. The vertebral heights and alignment are unremarkable.There is no spondylolysis or spondylolisthesis.There is no radiographic evidence of significant spondylosis.Significant stool and bowel gas obscures the bony details.CONCLUSION: IMPRESSION:No acute fracture or dislocation. Follow-up with CT if clinically indicated. Normal [facility] Vital Signs Date Time Vital Sign Value Performing Clinician Facility 10-23-2024 15:44-0400 SaO2% (BldA) [Mass fraction] 98 % Dr. Josafat Leonard DO Work Phone: [facility] 10-23-2024 15:32-0400 Body height 185.[address] Josafat Leonard DO Work Phone: [facility] 10-23-2024 15:32-0400 Body mass index (BMI) [Ratio] 24.9 kg/m2 Dr. Josafat Leonard DO Work Phone: [facility] 10-23-2024 15:32-0400 Body temperature 98.8 [degF] Dr. Josafat Leonard DO Work Phone: [facility] 10-23-2024 15:32-0400 Body weight 85.[address] Josafat Leonard DO Work Phone: [facility] 10-23-2024 15:32-0400 Diastolic blood pressure 65 mm[Hg] Dr. Josafat Leonard DO Work Phone: [facility] 10-23-2024 15:32-0400 Heart rate 104 /min Dr. Josafat Leonard DO Work Phone: [facility] 10-23-2024 15:32-0400 Inhaled oxygen flow rate 4 L/min Dr. Josafat Leonard DO Work Phone: [facility] 10-23-2024 15:32-0400 Respiratory rate 14 /min Dr. Josafat Leonard DO Work Phone: [facility] 10-23-2024 15:32-0400 Systolic blood pressure 112 mm[Hg] Dr. Josafat Leonard DO Work Phone: [facility] 10-02-2024 12:11-0400 Body height 185.4 cm Nighat Griffin MD Work Phone: [facility] 10-02-2024 12:11-0400 Body mass index (BMI) [Ratio] 25.46 kg/m2 Nighat Griffin MD Work Phone: [facility] 10-02-2024 12:11-0400 Body temperature 97.3 [degF] Nighat Griffin MD Work Phone: [facility] 10-02-2024 12:11-0400 Body weight 87.54 kg Nighat Griffin MD Work Phone: [facility] 10-02-2024 12:11-0400 Diastolic blood pressure 76 mm[Hg] Nighat Griffin MD Work Phone: [facility] 10-02-2024 12:11-0400 Heart rate 57 /min Nighat Griffin MD Work Phone: [facility] 10-02-2024 12:11-0400 SaO2% (BldA) [Mass fraction] 99 % Nighat Griffin MD Work Phone: [facility] 10-02-2024 12:11-0400 Systolic blood pressure 117 mm[Hg] Nighat Griffin MD Work Phone: [facility] 07-19-2024 10:44-0400 Body height 185.4 cm Radha Garratt DO Work Phone: [facility] 07-19-2024 10:44-0400 Body mass index (BMI) [Ratio] 24.83 kg/m2 Radha Garratt DO Work Phone: [facility] 07-19-2024 10:44-0400 Body weight 85.37 kg Radha Garratt DO Work Phone: [facility] 07-14-2024 01:28-0400 Body temperature 98.71 [degF] Josafat Leonard DO Work Phone: [facility] 07-13-2024 22:31-0400 Body mass index (BMI) [Ratio] 24.65 kg/m2 Josafat Leonard DO Work Phone: [facility] 07-13-2024 22:31-0400 Body weight 84.73 kg Jos[facility]at Degidio DO [facility] 07-13-2024 22:30-0400 Diastolic blood pressure 92 mm[Hg] Jos[facility]at Degidio DO [facility] 07-13-2024 22:30-0400 Heart rate 98 /min Josafat Degidio DO [facility] 07-13-2024 22:30-0400 Respiratory rate 19 /min Josafat Degidio DO [facility] Phone[facility] 07-13-2024 22:30-0400 SaO2% (BldA) [Mass fraction] 97 % Josafat Degidio DO Work Phone[facility] 07-13-2024 22:30-0400 Systolic blood pressure 137 mm[Hg] Jos[facility]at Degidio DO [facility] 06-28-2024 08:47-0400 Body height 183.1 cm Josafat Degidio DO Work Phone: [facility] 06-28-2024 08:47-0400 Body mass index (BMI) [Ratio] 25.29 kg/m2 Josafat Degidio DO Work Phone: [facility] 06-28-2024 08:47-0400 Body weight 84.82 kg Josafat Degidio DO Work Phone: [facility] 06-28-2024 08:47-0400 Diastolic blood pressure 99 mm[Hg] Josafat Degidio DO Work Phone: [facility] 06-28-2024 08:47-0400 Heart rate 80 /min Josafat Degidio DO Work Phone: [facility] 06-28-2024 08:47-0400 SaO2% (BldA) [Mass fraction] 98 % Josafat Degidio DO Work Phone: [facility] 06-28-2024 08:47-0400 Systolic blood pressure 134 mm[Hg] Josafat Leonard DO Work Phone: [facility] 06-15-2024 21:32-0400 Body height 185.4 cm Lisa Polanco MD Work Phone: [employer] [facility] 06-15-2024 21:32-0400 Body mass index (BMI) [Ratio] 24.72 kg/m2 Lisa Polanco MD Work Phone: [employer] [facility] 06-15-2024 21:32-0400 Body temperature 98.01 [degF] Lisa Polanco MD Work Phone: [employer] [facility] [facility] 06-15-2024 21:32-0400 Body weight 85 kg Lisa Polanco MD Work Phone: [employer] [facility] 06-15-2024 21:32-0400 Diastolic blood pressure 87 mm[Hg] Lisa Polanco MD Work Phone: [employer] [facility] 06-15-2024 21:32-0400 Heart rate 92 /min Lisa Polanco MD Work Phone: [employer] [facility] [facility] 06-15-2024 21:32-0400 Respiratory rate 20 /min Lisa Polanco MD Work Phone: [employer] [facility] 06-15-2024 21:32-0400 SaO2% (BldA) [Mass fraction] 99 % Lisa Polanco MD Work Phone: [employer] [facility] [facility] 06-15-2024 21:32-0400 Systolic blood pressure 154 mm[Hg] Lisa Polanco MD Work Phone: [employer] [facility] [facility] 05-19-2024 14:00-0500 Diastolic blood pressure 96 mm[Hg] Josafat Leonard DO Work Phone: [employer] 05-19-2024 14:00-0500 SaO2% (BldA) [Mass fraction] 98 % Josafat Degidio DO Work Phone: [employer] 05-19-2024 14:00-0500 Systolic blood pressure 122 mm[Hg] Josafat Degidio DO Work Phone: [employer] 05-18-2024 21:51-0500 Body height 185.4 cm Josafat Degidio DO Work Phone: [employer] 05-18-2024 21:51-0500 Body mass index (BMI) [Ratio] 24.41 kg/m2 Josafat Degidio DO Work Phone: [facility] [employer] 05-18-2024 21:51-0500 Body temperature 98.1 [degF] Josafat Degidio DO Work Phone: [facility] [employer] 05-18-2024 21:51-0500 Body weight 83.92 kg Josafat Degidio DO Work Phone: [employer] 05-18-2024 21:51-0500 Heart rate 85 /min Josafat Degidio DO Work Phone: [facility] [employer] 05-18-2024 21:51-0500 Respiratory rate 20 /min Josafat Degidio DO [facility] 02-26-2024 07:35-0500 Body temperature 97.7 [degF] Sha Foster MD Work Phone: [facility] 02-26-2024 07:35-0500 Diastolic blood pressure 103 mm[Hg] Sha Foster MD Work Phone: [facility] 02-26-2024 07:35-0500 Heart rate 67 /min Sha Foster MD Work Phone: [facility] 02-26-2024 07:35-0500 Respiratory rate 18 /min Sha Foster MD Work Phone: [facility] 02-26-2024 07:35-0500 SaO2% (BldA) [Mass fraction] 98 % Sha Foster MD Work Phone: [facility] 02-26-2024 07:35-0500 Systolic blood pressure 137 mm[Hg] Sha Foster MD Work Phone: [facility] 02-23-2024 02:23-0500 Body height 185.4 cm Sha Foster MD Work Phone: [facility] 02-23-2024 02:23-0500 Body mass index (BMI) [Ratio] 24.37 kg/m2 Sha Foster MD Work Phone: [facility] 02-23-2024 02:23-0500 Body weight 83.78 kg Sha Foster MD Work Phone: [facility] 02-09-2024 00:18-0500 Diastolic blood pressure 84 mm[Hg] Josafat Degidio DO Work Phone: [employer] 02-09-2024 00:18-0500 Respiratory rate 18 /min Josafat Degidio DO Work Phone: [employer] 02-09-2024 00:18-0500 SaO2% (BldA) [Mass fraction] 96 % Josafat Degidio DO Work Phone: [employer] 02-09-2024 00:18-0500 Systolic blood pressure 106 mm[Hg] Josafat Degidio DO Work Phone: [employer] 02-08-2024 21:59-0500 Body height 185.4 cm Josafat Degidio DO Work Phone: [employer] 02-08-2024 21:59-0500 Body mass index (BMI) [Ratio] 24.41 kg/m2 Josafat Degidio DO Work Phone: [employer] 02-08-2024 21:59-0500 Body temperature 97.3 [degF] Josafat Degidio DO Work Phone: [facility] [employer] 02-08-2024 21:59-0500 Body weight 83.92 kg Josafat Degidio DO Work Phone: [facility] [employer] 02-08-2024 21:59-0500 Heart rate 88 /min Josafat Degidio DO Work Phone: [facility] [employer] 01-29-2024 19:20-0500 Body height 185.4 cm Zuleyka Qumu Work Phone: [facility] [employer] 01-29-2024 19:20-0500 Body mass index (BMI) [Ratio] 24.41 kg/m2 Zuleyka Qumu Work Phone: [employer] 01-29-2024 19:20-0500 Body temperature 98.2 [degF] Zuleyka Bryant DO Work Phone: [facility] [employer] 01-29-2024 19:20-0500 Body weight 83.92 kg Zuleyka Qumu Work Phone: [facility] [employer] 01-29-2024 19:20-0500 Diastolic blood pressure 93 mm[Hg] [employer] Work Phone: [employer] 01-29-2024 19:20-0500 Heart rate 95 /min Zuleyka Bryant DO Work Phone: [facility] [employer] 01-29-2024 19:20-0500 Respiratory rate 18 /min [employer] Work Phone: [facility] [employer] 01-29-2024 19:20-0500 SaO2% (BldA) [Mass fraction] 97 % Zuleyka Bryant DO Work Phone: [employer] 01-29-2024 19:20-0500 Systolic blood pressure 128 mm[Hg] Zuleyka Bryant DO Work Phone: [facility] [employer] 12-12-2023 18:53-0400 Body height 182.9 cm Josafat Degidio DO Work Phone: [facility] [employer] 12-12-2023 18:53-0400 Body mass index (BMI) [Ratio] 25.09 kg/m2 Josafat Degidio DO Work Phone: [facility] [employer] 12-12-2023 18:53-0400 Body weight 83.92 kg Josafat Degidio DO Work Phone: [facility] [employer] 12-12-2023 18:35-0400 Body temperature 98.71 [degF] Josafat Degidio DO Work Phone: [facility] [employer] 12-12-2023 18:35-0400 Diastolic blood pressure 105 mm[Hg] Josafat Degidio DO Work Phone: [facility] [employer] 12-12-2023 18:35-0400 Heart rate 105 /min Josafat Degidio DO Work Phone: [facility] [employer] 12-12-2023 18:35-0400 Respiratory rate 18 /min Josafat Degidio DO Work Phone: [facility] [employer] 12-12-2023 18:35-0400 SaO2% (BldA) [Mass fraction] 100 % Josafat Degidio DO Work Phone: [facility] [employer] 12-12-2023 18:35-0400 Systolic blood pressure 163 mm[Hg] Josafat Degidio DO Work Phone: [facility] [facility] 05-18-2023 15:51-0500 Body temperature 98.2 [degF] [facility] 05-18-2023 15:51-0500 Diastolic blood pressure 86 mm[Hg] [facility] 05-18-2023 15:51-0500 Heart rate 88 /min [facility] 05-18-2023 15:51-0500 Respiratory rate 18 /min [facility] 05-18-2023 15:51-0500 SaO2% (BldA) [Mass fraction] 99 % [facility] 05-18-2023 15:51-0500 Systolic blood pressure 136 mm[Hg] [facility] 05-18-2023 14:08-0500 Body height 185.42 cm [facility] 05-18-2023 14:08-0500 Body mass index (BMI) [Ratio] 25.4 kg/m2 [facility] 05-18-2023 14:08-0500 Body weight 87.67 kg [facility] 04-10-2023 18:44-0500 Heart rate 79 /min [facility] 04-10-2023 18:44-0500 Respiratory rate 16 /min [facility] 04-10-2023 18:44-0500 SaO2% (BldA) [Mass fraction] 98 % [facility] 04-10-2023 16:36-0500 Body height 185.42 cm [facility] 04-10-2023 16:36-0500 Body mass index (BMI) [Ratio] 25.9 kg/m2 [facility] 04-10-2023 16:36-0500 Body temperature 98.1 [degF] [facility] 04-10-2023 16:36-0500 Body weight 89.1 kg [facility] 04-10-2023 16:36-0500 Diastolic blood pressure 100 mm[Hg] [facility] 04-10-2023 16:36-0500 Systolic blood pressure 152 mm[Hg] [facility] 03-09-2023 11:08-0500 Body height 185.42 cm [facility] 03-09-2023 11:08-0500 Body mass index (BMI) [Ratio] 23.3 kg/m2 [facility] 03-09-2023 11:08-0500 Body temperature 96.8 [degF] [facility] 03-09-2023 11:08-0500 Body weight 80.28 kg [facility] 03-09-2023 11:08-0500 Diastolic blood pressure 95 mm[Hg] [facility] 03-09-2023 11:08-0500 Heart rate 125 /min [facility] 03-09-2023 11:08-0500 Respiratory rate 18 /min [facility] 03-09-2023 11:08-0500 SaO2% (BldA) [Mass fraction] 100 % [facility] 03-09-2023 11:08-0500 Systolic blood pressure 123 mm[Hg] [facility] 11-09-2022 13:32-0400 Body height 185.42 cm [facility] 11-09-2022 13:32-0400 Body mass index (BMI) [Ratio] 25 kg/m2 [facility] 11-09-2022 13:32-0400 Body temperature 97 [degF] [facility] 11-09-2022 13:32-0400 Body weight 86.27 kg [facility] 11-09-2022 13:32-0400 Diastolic blood pressure 94 mm[Hg] [facility] 11-09-2022 13:32-0400 Heart rate 117 /min [facility] 11-09-2022 13:32-0400 Respiratory rate 22 /min [facility] 11-09-2022 13:32-0400 SaO2% (BldA) [Mass fraction] 99 % [facility] 11-09-2022 13:32-0400 Systolic blood pressure 151 mm[Hg] [facility] 06-16-2022 22:21-0400 Diastolic blood pressure 95 mm[Hg] [facility] 06-16-2022 22:21-0400 Heart rate 104 /min [facility] 06-16-2022 22:21-0400 Respiratory rate 18 /min [facility] 06-16-2022 22:21-0400 SaO2% (BldA) [Mass fraction] 97 % [facility] 06-16-2022 22:21-0400 Systolic blood pressure 133 mm[Hg] [facility] 06-16-2022 22:15-0400 Body height 185.42 cm [facility] 06-16-2022 22:15-0400 Body mass index (BMI) [Ratio] 25.2 kg/m2 [facility] 06-16-2022 22:15-0400 Body temperature 98.5 [degF] [facility] 06-16-2022 22:15-0400 Body weight 86.9 kg [facility] 08-22-2021 00:06-0400 Respiratory rate 17 /min [facility] Work Phone: 08-22-2021 00:05-0400 Diastolic blood pressure 74 mm[Hg] [facility] Work Phone: 08-22-2021 00:05-0400 Heart rate 74 /min [facility] Work Phone: 08-22-2021 00:05-0400 SaO2% (BldA) [Mass fraction] 98 % [facility] Work Phone: 08-22-2021 00:05-0400 Systolic blood pressure 132 mm[Hg] [facility] Work Phone: 08-21-2021 04:42-0400 Body temperature 98.9 [degF] [facility] Work Phone: 08-20-2021 15:33-0400 Body height 185.42 cm [facility] Work Phone: 08-20-2021 15:33-0400 Body mass index (BMI) [Ratio] 27.7 kg/m2 [facility] Work Phone: 08-20-2021 15:33-0400 Body weight 95.3 kg [facility] Work Phone: 08-19-2021 15:14-0400 Diastolic blood pressure 75 mm[Hg] [facility] Work Phone: 08-19-2021 15:14-0400 Heart rate 76 /min [facility] Work Phone: 08-19-2021 15:14-0400 Respiratory rate 16 /min [facility] Work Phone: 08-19-2021 15:14-0400 SaO2% (BldA) [Mass fraction] 97 % [facility] Work Phone: 08-19-2021 15:14-0400 Systolic blood pressure 123 mm[Hg] [facility] Work Phone: 08-19-2021 13:05-0400 Body height 185.42 cm [facility] Work Phone: 08-19-2021 13:05-0400 Body mass index (BMI) [Ratio] 28.3 kg/m2 [facility] Work Phone: 08-19-2021 13:05-0400 Body temperature 98 [degF] [facility] Work Phone: 08-19-2021 13:05-0400 Body weight 97.3 kg [facility] Work Phone: 06-15-2021 20:23-0400 Body height 185.42 cm [facility] Work Phone: 06-15-2021 20:23-0400 Body mass index (BMI) [Ratio] 28.4 kg/m2 [facility] Work Phone: 06-15-2021 20:23-0400 Body temperature 97.8 [degF] [facility] Work Phone: 06-15-2021 20:23-0400 Body weight 97.8 kg [facility] Work Phone: 06-15-2021 20:23-0400 Diastolic blood pressure 118 mm[Hg] [facility] Work Phone: 06-15-2021 20:23-0400 Heart rate 129 /min [facility] Work Phone: 06-15-2021 20:23-0400 Respiratory rate 20 /min [facility] Work Phone: 06-15-2021 20:23-0400 SaO2% (BldA) [Mass fraction] 96 % [facility] Work Phone: 06-15-2021 20:23-0400 Systolic blood pressure 164 mm[Hg] [facility] Work Phone: 03-18-2021 18:10-0500 Body mass index (BMI) [Ratio] 27.7 kg/m2 [facility] Work Phone: 03-18-2021 18:10-0500 Body temperature 98.2 [degF] [facility] Work Phone: 03-18-2021 18:10-0500 Body weight 95.25 kg [facility] Work Phone: 03-18-2021 18:10-0500 Diastolic blood pressure 104 mm[Hg] [facility] Work Phone: 03-18-2021 18:10-0500 Heart rate 115 /min [facility] Work Phone: 03-18-2021 18:10-0500 Respiratory rate 20 /min [facility] Work Phone: 03-18-2021 18:10-0500 SaO2% (BldA) [Mass fraction] 99 % [facility] Work Phone: 03-18-2021 18:10-0500 Systolic blood pressure 149 mm[Hg] [facility] Work Phone: 02-15-2021 10:51-0500 Diastolic blood pressure 81 mm[Hg] [facility] Work Phone: 02-15-2021 10:51-0500 Heart rate 82 /min [facility] Work Phone: 02-15-2021 10:51-0500 Systolic blood pressure 132 mm[Hg] [facility] Work Phone: 02-15-2021 09:23-0500 Body mass index (BMI) [Ratio] 28.2 kg/m2 [facility] Work Phone: 02-15-2021 09:23-0500 Body temperature 98.6 [degF] [facility] Work Phone: 02-15-2021 09:23-0500 Body weight 97 kg [facility] Work Phone: 02-15-2021 09:23-0500 Respiratory rate 18 /min [facility] Work Phone: 02-15-2021 09:23-0500 SaO2% (BldA) [Mass fraction] 98 % [facility] Work Phone: Encounters Encounter Date Encounter Type Care Provider Facility Start: 10-23-2024 End: 10-23-2024 Emergency department patient visit Dr. Josafat Leonard DO Work Phone: -Emergency Department Work Phone: Start: 10-16-2024 End: 10-16-2024 ambulatory [facility] Start: 10-12-2024 End: 10-12-2024 Subsequent hospital visit by physician [facility] Comment on above: Herniated nucleus pu lposus, L4-5; Pain of left lower extremity; Weakness of left foot; Neurogenic bowel; Left foot drop Start: 10-12-2024 End: 10-12-2024 ambulatory [facility] Start: 10-02-2024 End: 10-02-2024 ambulatory [facility] Start: 10-02-2024 End: 10-02-2024 Office outpatient new 60 minutes Nighat Griffin MD Work Phone: [facility] Comment on above: Herniated nucleus pu lposus, L4-5 (Primary Dx); Paresthesia of upper extremity; Spinal stenosis, cervical region; Spinal stenosis of cervical region; Chronic bilateral low back pain with left-sided sciatica; Pain of left lower extremity; Weakness of left foot; Neurogenic bowel; Back pain with radiculopathy; Cervical myelopathy; Left foot drop Start: 07-24-2024 End: 07-24-2024 ambulatory SURAJ MEYERS [facility] Start: 07-24-2024 End: 07-24-2024 Office outpatient new 45 minutes Suraj Meyers MD Work Phone: [facility] Comment on above: Back pain with radic ulopathy Start: 07-19-2024 End: 07-19-2024 Office outpatient new 60 minutes Radha Britany DO Work Phone: [facility] Comment on above: Cervical myelopathy (Primary Dx); Back pain with radiculopathy Start: 07-19-2024 End: 07-19-2024 ambulatory [facility] Start: 07-13-2024 End: 07-14-2024 Emergency department patient visit [facility] Comment on above: Acute exacerbation o f chronic low back pain (Primary Dx) Start: 06-28-2024 Encounter for genera l adult medical examination without abnormal findings [facility] Ambulatory Start: 06-28-2024 End: 06-28-2024 Office outpatient new 60 minutes [facility] Work Phone: [facility] Comment on above: Preventative health care (Primary Dx); Other chronic pain; Vitamin D deficiency; Attention deficit hyperactivity disorder (ADHD), unspecified ADHD type; Hyperlipidemia, unspecified hyperlipidemia type; Bipolar affective disorder, remission status unspecified (Multi); Hyperverbal speech Start: 06-28-2024 End: 06-28-2024 Patient encounter [facility] Work Phone: [facility] Work Phone: Start: 06-28-2024 ambulatory [facility] Start: 06-28-2024 Encounter for genera l adult medical examination without abnormal findings [facility] Start: 06-15-2024 End: 06-15-2024 Emergency department patient visit Lisa Polanco MD Work Phone: [facility] Emergency Department Comment on above: Sciatica of left brice e (Primary Dx) Start: 06-06-2024 End: 06-06-2024 Office outpatient visit 25 minutes Sah Foster MD Work Phone: [facility] Comment on above: Cervical radiculopat hy (Primary Dx) Start: 06-06-2024 End: 06-06-2024 Subsequent hospital visit by physician Juanita Hay X-Ray 2 [facility] Comment on above: Cervical radiculopat hy Start: 06-06-2024 End: 06-06-2024 ambulatory [facility] Start: 05-19-2024 End: 05-19-2024 Emergency department patient visit JOSAFAT LEONARD [facility] Emergency Department Comment on above: Accidental fall, ini tial encounter (Primary Dx); Neck sprain, initial encounter; Lumbar radiculopathy, acute; Leg weakness, bilateral Start: 03-07-2024 End: 03-07-2024 Postop follow up visit related to original px Sha Foster MD Work Phone: [facility] Comment on above: Cervical radiculopat hy (Primary Dx) Start: 03-07-2024 End: 03-07-2024 Subsequent hospital visit by physician Juanita Hay X-Ray 3 [facility] Comment on above: Cervical radiculopat hy Start: 03-07-2024 End: 03-07-2024 ambulatory [facility] Start: 02-28-2024 End: 02-28-2024 Patient encounter procedure Jeff Nichols MD Work Phone: [facility] Comment on above: Arrived Start: 02-28-2024 End: 02-28-2024 ambulatory JEFF NICHOLS [facility] Start: 02-22-2024 Evaluation and manag ement of inpatient [facility] Start: 02-22-2024 End: 02-26-2024 Evaluation and management of inpatient Sha Foster MD Work Phone: [facility] Comment on above: Spinal stenosis (Honey [place] Dx); Spinal stenosis, cervical region; Abscess of axilla, left Start: 02-22-2024 Evaluation and manag ement of inpatient [facility] Start: 02-22-2024 End: 02-22-2024 Office outpatient visit 40 minutes Sha Foster MD Work Phone: [facility] Comment on above: Cervical radiculopat hy Start: 02-22-2024 End: 02-22-2024 ambulatory [facility] Start: 02-17-2024 End: 02-17-2024 Subsequent hospital visit by physician [facility] Comment on above: Back pain with radic ulopathy Start: 02-17-2024 End: 02-17-2024 ambulatory [facility] Start: 02-08-2024 End: 02-09-2024 Emergency department patient visit JOSAFAT R [facility] ED Comment on above: Lumbosacral radiculi tis (Primary Dx) Start: 02-08-2024 End: 02-08-2024 Office outpatient visit 40 minutes Sha Foster MD Work Phone: [facility] Comment on above: Back pain with radic ulopathy (Primary Dx) Start: 02-08-2024 End: 02-08-2024 ambulatory [facility] Start: 01-29-2024 End: 01-29-2024 Emergency department patient visit Zuleyka Bryant DO Work Phone: [facility] ED Comment on above: Chronic bilateral lo w back pain with bilateral sciatica (Primary Dx); Incontinence of feces with fecal urgency Start: 01-20-2024 End: 01-20-2024 Emergency department patient visit Kehinde Cota Facility:[facility] Start: 01-12-2024 End: 01-12-2024 Emergency department patient visit Josafat Leonard Facility:[facility] Start: 01-04-2024 End: 01-04-2024 Emergency department patient visit [facility] Facility:[facility] Start: 12-14-2023 End: 12-14-2023 Office outpatient visit 25 minutes Sha Foster MD Work Phone: [facility] Comment on above: Lumbar pain (Primary Dx); Lumbar radiculopathy Start: 12-14-2023 End: 12-14-2023 ambulatory [facility] Start: 12-12-2023 End: 12-12-2023 Emergency department patient visit [facility] Comment on above: Acute exacerbation o f chronic low back pain (Primary Dx) Start: 12-07-2023 End: 12-07-2023 Emergency department patient visit [facility] Start: 11-14-2023 End: 11-15-2023 Emergency department patient visit [facility] Start: 08-28-2023 End: 08-28-2023 Emergency department patient visit [facility] Start: 05-24-2023 ambulatory [facility] Facility :[facility] Start: 05-18-2023 End: 05-18-2023 Emergency department patient visit [facility] Work Phone: Start: 05-04-2023 End: 05-04-2023 Subsequent hospital visit by physician Juanita Hay X-Ray 1 [facility] Comment on above: Lumbar pain Start: 05-04-2023 End: 05-04-2023 Office outpatient new 45 minutes Sha Foster MD Work Phone: [facility] Comment on above: Lumbar pain (Primary Dx); Lumbar radiculopathy Start: 04-10-2023 End: 04-10-2023 Emergency department patient visit [facility] Work Phone: Start: 03-09-2023 End: 03-09-2023 Emergency department patient visit [facility] Work Phone: Start: 12-04-[address] Sha Foster Facility:[id number] Start: 11-09-2022 End: 11-09-2022 [facility] Start: 06-16-2022 End: 06-16-2022 [facility] Start: 03-17-[address] Sha Foster Facility:[id number] Start: 08-20-2021 End: 08-22-2021 [facility] Start: 08-19-2021 End: 08-19-2021 [facility] Start: 06-15-2021 End: 06-15-2021 [facility] Start: 03-18-2021 End: 03-18-2021 [facility] Start: 02-15-2021 End: 02-15-2021 [facility] Start: 02-15-2018 Patient encounter procedure SHA FOSTER Facility:8 Start: 01-26-2018 Patient encounter procedure SHA FOSTER Facility:[facility] Start: 01-04-2018 Patient encounter procedure SHA FOSTER Facility:8 Start: 10-19-2017 Patient encounter procedure TUAN ALBARADO Facility:8 Start: 06-25-2017 Patient encounter procedure SHA FOSTER Facility:8 Start: 05-27-2017 End: 05-27-2017 Emergency department patient visit TOM WESLEY Facility:[facility] Procedures Date Procedure Procedure Detail Performing Clinician Start: 07-14-2024 Drug tst prsmv instr mnt chem analyzers pr date Ines MORENO Work Phone: Start: 07-14-2024 Blood count complete auto&auto difrntl wbc Ines MORENO Work Phone: Start: 07-14-2024 Urnls dip stick/tabl et rgnt auto w/o microscopy Ines MORENO Work Phone: Start: 07-13-2024 Ct abdomen w/o contr ast material Ines MORENO Work Phone: Start: 07-13-2024 Comprehensive metabo lic panel Ines MORENO Work Phone: Start: 06-06-2024 Radex spine cervical 2 or 3 views Sha Foster MD Work Phone: Start: 05-19-2024 Ct cervical spine w/ o contrast material Nayan Hale PA-C Work Phone: Start: 05-18-2024 Radex hip unilateral with pelvis 2-3 views Nayan Hale PA-C Work Phone: Start: 03-07-2024 Radex spine cervical 2 or 3 views Sha Foster MD Work Phone: Start: 02-26-2024 Basic metabolic pane l calcium total Veda Polk MD Work Phone: Start: 02-25-2024 Basic metabolic pane l calcium total Veda Polk MD Work Phone: Start: 02-25-2024 Drug screen quantita tive vancomycin Veda Polk MD Work Phone: Start: 02-24-2024 PULSE OXIMETRY, CONTINUOUS Dhaval Campbell MD Work Phone: Start: 02-24-2024 OPERATIVE IMAGES Sha Foster MD Work Phone: Start: 02-24-2024 XR tomography Unspec ified body region hSa Foster MD Work Phone: Start: 02-24-2024 End: 02-24-2024 Arthrd ant interbody decompress cervical belw c2 Sha Foster MD Work Phone: Start: 02-24-2024 End: 02-24-2024 Basic metabolic panel calcium total Jewels Nolan EXERCISE SCIENCE INSTRUCTOR-STEAM CONDITIONER OPERATOR Work Phone: Start: 02-24-2024 EXTRA TUBES Sha lomax MD Work Phone: Start: 02-24-2024 SST TOP Sha lomax MD Work Phone: Start: 02-23-2024 Ecg routine ecg w/le ast 12 lds trcg only w/o i&r Jewels Nolan EXERCISE SCIENCE INSTRUCTOR-[facility] Work Phone: Start: 02-23-2024 Drug screen quantita tive vancomycin Param Bogner PharmD Start: 02-23-2024 Cul bact xcpt urine blood/stool aerobic isol Qi Castillo EXERCISE SCIENCE INSTRUCTOR-STEAM CONDITIONER OPERATOR Work Phone: Start: 02-23-2024 Drug screen quantita tive vancomycin Param Bogner PharmD Start: 02-23-2024 EXTRA TUBES Sha lomax MD Work Phone: Start: 02-23-2024 LAVENDER TOP Sha lomax MD Work Phone: Start: 02-22-2024 Ct thorax w/contrast material Haley Yates EXERCISE SCIENCE INSTRUCTOR-[facility] Work Phone: Start: 02-22-2024 Culture bacterial bl ood aerobic w/id isolates Haley Yates EXERCISE SCIENCE INSTRUCTOR-[facility] Work Phone: Start: 02-22-2024 End: 02-22-2024 C-reactive protein Haley Yates EXERCISE SCIENCE INSTRUCTOR-[facility] Work Phone: Start: 02-22-2024 End: 02-22-2024 Comprehensive metabolic panel Dev Martel PA-C Work Phone: Start: 02-22-2024 EXTRA TUBES Sha lomax MD Work Phone: Start: 02-22-2024 SST TOP Sha lomax MD Work Phone: Start: 01-29-2024 Urnls dip stick/tabl et rgnt auto w/o microscopy [facility] DO Work Phone: Start: 01-29-2024 C-reactive protein [facility] DO Work Phone: Start: 01-29-2024 Comprehensive metabo lic panel [facility] DO Work Phone: Start: 02-20-2024 Radex spine lumbosac ral minimum 4 views Sha Foster MD Work Phone: Start: 08-20-2021 Viral antigen assay Start: 09-28-2017 Lipid 1996 panel - S matthew or Plasma Sha Foster MD Work Phone: Plan of Treatment Date Care Activity Detail Author Start: 08-12-2031 Zoster Vaccines (1 of 2) Zoster Vaccines (1 of 2) [facility] Start: 02-25-2027 Diabetes mellitus screening Diabetes Screening [facility] Start: 06-29-2025 Yearly Adult Physical Yearly Adult Physical [facility] Start: 11-13-2024 Influenza vaccination [facility] Start: 10-31-2024 End: 10-31-2024 Patient encounter procedure 10/31/2024 10:00 AM EDT Office Visit [facility] [address] [place] [phone] Nighat Griffin MD [address] [place] [address] [facility] Start: 10-16-2024 End: 10-16-2024 Clinical Support 10/16/2024 4:00 PM EDT Clinical Support [facility] [address] [place] [phone] [place] [address] [place], [place] [id number] [facility] Start: 10-13-2024 Influenza vaccination Flu vaccine (Season Ended) [facility] Start: 10-12-2024 End: 10-12-2024 Patient encounter procedure 10/12/2024 1:45 PM EDT Appointment [address] [phone] [facility] Start: 10-02-2024 End: 10-02-2025 MR Lumbar spine WO contrast MR lumbar spine wo IV contrast Imaging Routine Herniated nucleus pulposus, L4-5 Pain of left lower extremity Weakness of left foot Neurogenic bowel Left foot drop Expected: 10/02/2024, Expires: 10/02/2025 [facility] Service Area Work Phone: Comment on above: Expected: 10/02/2024, Expires: Start: 10-02-2024 End: 10-02-2024 Patient encounter procedure 10/02/2024 11:30 AM EDT Consult [facility] [address] [place] [address] Nighat Griffin MD [address] [place] [address] [facility] Start: 07-24-2024 End: 07-24-2024 Patient encounter procedure 07/24/2024 8:30 AM EDT Office Visit [address] [place] [phone] Suraj Meyers MD [address] [place] [address], [address] [place] [address] [facility] Start: 07-19-2024 End: 07-19-2024 Patient encounter procedure 07/19/2024 10:50 AM EDT Office Visit [facility] [address] [address] [place] [phone] Radha Dixon DO [address] [place] [address] [facility] Start: 07-04-2024 End: 07-04-2024 Patient encounter procedure 07/04/2024 8:30 AM EDT Office Visit [facility] [address] [phone] Sha Foster MD [address] [facility], [address] [place] [id number] [facility] Start: 06-28-2024 End: 06-28-2024 Patient encounter procedure 06/28/2024 9:20 AM EDT Office Visit [facility] [address] [facility] [address] [place] [phone] Josafat Leonard DO [address] [facility], [facility] [address] [place] [address] [facility] Start: 06-06-2024 End: 06-06-2025 XR Cervical spine 2 or 3 Views [facility] Service Area Work Phone: Comment on above: Expected: 06/06/2024, Expires: Start: 06-06-2024 End: 06-06-2024 Patient encounter procedure 06/06/2024 11:00 AM EDT Office Visit [facility] [address] [place] [phone] Sha Foster MD [address] [facility], [address] [place] [phone] [facility] Start: 03-13-2024 End: 03-13-2024 Patient encounter procedure 03/13/2024 9:30 AM EST Office Visit [place] [address] [place] [phone] Jeff Nichols MD [address] [place] [address] [facility] [address] [place] [address] [facility] Start: 03-07-2024 End: 03-07-2024 Patient encounter procedure 03/07/2024 11:15 AM EST Office Visit [facility] [address] [place] [address] Sha Foster MD [address] [facility], [address] [place] [address], [place] [phone] [facility] Start: 03-02-2024 Documentation procedure 03/02/2024 Scanned Document [facility] [address] [place] [phone] Sha Foster MD [address] [facility], [address] [place] [address], [place] [address] [facility] Start: 02-28-2024 End: 02-28-2024 Patient encounter procedure 02/28/2024 9:30 AM EST Office Visit [place] [address] [facility] [place] [phone] Jeff Nichols MD [address] [place] [address] [place] [address] [facility] Start: 02-22-2024 End: 02-22-2024 Patient encounter procedure 02/22/2024 10:30 AM EST Office Visit [facility] [address] [place] [phone] Sha Foster MD [address] [facility], [address] [place] [address], [place] [phone] [facility] Start: 02-08-2024 End: 02-07-2025 MR Cervical spine WO contrast MR cervical spine wo IV contrast Imaging STAT Back pain with radiculopathy Expected: 02/08/2024, Expires: 02/07/2025 [facility] Service Area Work Phone: Comment on above: Expected: 02/08/2024, Expires: Start: 02-08-2024 End: 11-26-2025 MR Lumbar spine W contrast IV MR lumbar spine w IV contrast Imaging STAT Back pain with radiculopathy Expected: 02/08/2024, Expires: 02/07/2025 [facility] Work Phone: Comment on above: Expected: 02/08/2024, Expires: Start: 02-08-2024 End: 02-07-2025 MR Thoracic spine WO contrast MR thoracic spine wo IV contrast Imaging STAT Back pain with radiculopathy Expected: 02/08/2024, Expires: 02/07/2025 [facility] Work Phone: Comment on above: Expected: 02/08/2024, Expires: Start: 12-14-2023 End: 12-13-2024 MR Lumbar spine WO and W contrast IV MR lumbar spine w and wo IV contrast Imaging Routine Lumbar pain Lumbar radiculopathy Expected: 12/14/2023 (Approximate), Expires: 12/13/2024 [facility] Service Area Work Phone: Comment on above: Expected: 12/14/2023 (Approximate), Expi res: 12/13/2024 Start: 11-14-2023 COVID-19 Vaccine ( season) COVID-19 Vaccine ( season) [facility] Start: 11-14-2023 COVID-19 Vaccine ( season) COVID-19 Vaccine ( season) [facility] Start: 11-14-2023 Influenza vaccination Influenza Vaccine (#1) [facility] Start: 10-14-2023 Influenza vaccination Flu vaccine (#1) [facility] Start: 05-18-2023 [facility] Start: 05-18-2023 End: 05-18-2023 Patient encounter procedure 05/18/2023 2:00 PM EST Appointment [address] [id number] [facility] Start: 05-04-2023 End: 05-04-2024 MR Lumbar spine WO and W contrast IV MR lumbar spine w and wo IV contrast Imaging Routine Lumbar pain Lumbar radiculopathy Expected: 05/04/2023 (Approximate), Expires: 05/04/2024 [facility] Service Area Work Phone: Comment on above: Expected: 05/04/2023 (Approximate), Expi res: 05/04/2024 Start: 04-10-2023 [facility] Start: 03-09-2023 [facility] Start: 11-13-2022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 None. HISTORY: ORDERING SYSTEM PROVIDED HISTORY: fall, recent surg TECHNOLOGIST PROVIDED HISTORY: Reason for exam:- >fall, recent surg Decision Support Exception - unselect if nota suspected or confirmed emergency medical condition->Emergency Medical Condition ([place]) What reading provider will be dictating this exam?->CRC FINDINGS: BONES/ALIGNMENT: Status post C5-C7 anterior fixation and discectomy. There is no acute fracture or traumatic malalignment. DEGENERATIVE CHANGES: No severe osseous spinal canal stenosis. SOFT TISSUES: There is no prevertebral soft tissue swelling. No acute abnormality of the cervical spine. XR cervical spine 2-3 views Result Date: 03/07/2024 Interpreted By: Sha Foster, STUDY: XR CERVICAL SPINE 2-3 VIEWS; 03/07/2024 10:52 am INDICATION: Signs/Symptoms:neck pain. ACCESSION NUMBER(S): [id number] ORDERING CLINICIAN: SHA FOSTERFINDINGS: AP lateral x-rays of the cervical spine show C5-6 C6-7 ACDF. Cages screws and plate is ingood position without any evidence of hardware failure. Cervical lordosis is maintained at the fusion level. There is no significant degenerative changes above or below the level of the fusion. Thereis some calcification of the anterior annulus at C7-T1. There is no fractures. There is no soft tissue abnormalities. There is no instability. Signed by: Sha Foster 03/07/2024 11:17 AM Dictation workstation: [id number] MR cervical spine wo IV contrast Result Date: 02/18/2024 Interpreted By: Luana Lawson and Lawrence Austen STUDY: MR CERVICAL SPINE WO IV CONTRAST; MR LUMBAR SPINE W AND WO IV CONTRAST; MR THORACIC SPINE WO IV CONTRAST; 02/17/2024 7:08 pm; 02/17/2024 7:09 pm INDICATION: Signs/Symptoms:pain. ,M54.10 Radiculopathy, site unspecified COMPARISON: [id number]/07/2018, MRI 08/17/2016. ACCESSION NUMBER(S): [id number]; [id number]; [id number] ORDERING CLINICIAN: SHA FOSTER TECHNIQUE: Sagittal T1, T2, STIR, axial T1 and axial T2 weighted images were acquired through the cervical spine. Additionally, postcontrast images of the lumbar spine wereobtained following 15 ML of Dotarem administration. FINDINGS: Alignment: Trace C4-5 anterolisthesis. Vertebrae/Intervertebral Discs: The vertebral bodies demonstrate expected height. Small anterior osteophytes. Mild Modic type endplate changes at C6-7. Mild disc space narrowing at C5-6 and C6-7. Cord: There is mild contour abnormality and hyperintense STIR signal within the spinal cord posteriorly at the level of C6-7 in the region of the below mentioned disc osteophyte complex. C1-C2: The cervicomedullary junction appears unremarkable. There is no central canal stenosis. C2-C3: Mild disc bulge. There is no significant central canal or neural foraminal stenosis. C3-C4: There is no posteriordisc contour abnormality. No spinal canal or foraminal stenosis C4-C5: There is no posterior disc contour abnormality. Moderate right and mild left neuroforaminal stenosis secondary to uncovertebral spurring. C5-C6: Broad-based right paracentral disc osteophyte complex and uncovertebral spurring resulting in moderate spinal canal, severe right and moderate left neuroforaminal stenosis. C6-C7: Broad- based disc osteophyte complex centrally and uncovertebral spurring resulting in severe bilateral neuroforaminal and severe spinal canal stenosis. C7-T1: There is no posterior disc contour abnormality. There is no significant central canal or neural foraminal stenosis. The prevertebral and posterior paraspinous soft tissues are within normal limits. MRI THORACIC SPINE: Alignment: Within normal limits. Vertebrae/Intervertebral Discs: The vertebral body heights are intact. Marrow signal is within normal limits. Multilevel disc space narrowing with disc desiccation, most severe at the upper thoracic spine. There is no significant central canal stenosis. Spinal cord: Normal in signal. T1-2: There is no significant central canal stenosis. T2-3: There is no significant central canal stenosis. T3-4: Mild right neural foraminal stenosis secondary to facet arthropathy. No spinal canal stenosis.T4-5: There is no significant central canal stenosis. T5-6: There is no significant central canal stenosis. T6-7: There is no significant central canal stenosis. T7-8: Mild left neuroforaminal stenosis secondary to foraminal disc protrusion. No spinal canal stenosis. T8-9: Mild left neuroforaminal stenosis secondary to subarticular and foraminal disc protrusion. No spinal canal stenosis. T9-10: Mild left neuroforaminal stenosis secondary to foraminal disc protrusion. No spinal canal stenosis. T10-11: Mild left neuroforaminal stenosis secondary to foraminal disc protrusion. No spinal canal stenosis. T11-12: There is no significant central canal stenosis. Paraspinous Soft Tissues: Within normal limits. MRI LUMBAR SPINE: Alignment: The vertebral alignment is maintained. Vertebrae/Intervertebral Discs: The vertebral bodies demonstrate expected height. Type 2 Modic changes at the endplates of L4-5 and L5-S1. Mild L4-5 and moderate L5-S1 disc space narrowing with desiccation. Conus medullaris: The conus medullaris terminates at L1-2. T12-L1: No disc bulge. There is no significant central canal or neural foraminal stenosis. L1-2: No disc bulge. There is no significant central canal or neural foraminal stenosis. L2-3: No disc bulge. There is no significant central canal or neural foraminal stenosis. L3-4: Mild disc bulge. Mild bilateral foraminal stenosis without central canal stenosis. L4-5: Broad-based disc protrusion and facet arthropathy. Moderate to severe right foraminal stenosis and mild left foraminal stenosis. There is impingement of the right L5 nerve root in the lateralrecess. L5-S1: Broad-base disc protrusion asymmetric to left and facet arthropathy resulting in mild spinal canal, moderate left and mild right neuroforaminal stenosis increased from prior. Status post left L5 laminectomy. There is impingement of the left S1 nerve root in the lateral recess. The pre vertebral and posterior paraspinous soft tissues are unremarkable. 1. Advanced cervical spondylosis at C5-6 and C6-7 with moderate C5-6 and severe C6-7 spinal canal stenosis as well as severe right C5-6 and bilateral C6-7 foraminal stenosis. There is STIR hyperintense signal within the spinal cord at C6-7 level which likely represents myelomalacia, although cord edema or demyelinating disease although less likely can not be excluded. 2. Broad-base disc protrusion and facet arthropathy at L5-S1 resulting in mild spinal canal, moderate left and mild right neuralforaminal stenosis, in addition to impingement of the right L5 nerve root in the lateral recess, slightly worsened from prior. Postoperative changes of the L5-S1 disc and left L5 lamina. 3. Broad-based disc protrusion and facet arthropathy at L4-5 resulting in mild spinal canal and mild bilateral neural foraminal stenosis in addition to impingement of the left S film is a in the lateral recess, slightly worse from prior. 4. Multilevel thoracic disc protrusions and mild neuroforaminal stenosis as above. MACRO: None Signed by: Luana Lawson 02/18/2024 11:18 AM Dictation workstation: [id number] MR thoracic spine wo IV contrast Result Date: 02/18/2024 Interpreted By: Luana Lawson and Lawrence Usama STUDY: MR CERVICAL SPINE WO IV CONTRAST; MR LUMBAR SPINE W AND WO IV CONTRAST; MR THORACIC SPINE WO IV CONTRAST; 02/17/2024 7:08 pm; 02/17/2024 7:09 pm INDICATION: Signs/Symptoms:pain. ,M54.10 Radiculopathy, site unspecified COMPARISON: [id number]/07/2018, MRI 08/17/2016. ACCESSION NUMBER(S): [id number]; [id number]; [id number] ORDERING CLINICIAN: SHA FOSTER TECHNIQUE: Sagittal T1, T2, STIR, axial T1 and axial T2 weighted images were acquired through the cervical spine. Additionally, postcontrast images of the lumbar spine wereobtained following 15 ML of Dotarem administration. FINDINGS: Alignment: Trace C4-5 anterolisthesis. Vertebrae/Intervertebral Discs: The vertebral bodies demonstrate expected height. Small anterior osteophytes. Mild Modic type endplate changes at C6-7. Mild disc space narrowing at C5-6 and C6-7. Cord: There is mild contour abnormality and hyperintense STIR signal within the spinal cord posteriorly at the level of C6-7 in the region of the below mentioned disc osteophyte complex. C1-C2: The cervicomedullary junction appears unremarkable. There is no central canal stenosis. C2-C3: Mild disc bulge. There is no significant central canal or neural foraminal stenosis. C3-C4: There is no posteriordisc contour abnormality. No spinal canal or foraminal stenosis C4-C5: There is no posterior disc contour abnormality. Moderate right and mild left neuroforaminal stenosis secondary to uncovertebral spurring. C5-C6: Broad-based right paracentral disc osteophyte complex and uncovertebral spurring resulting in moderate spinal canal, severe right and moderate left neuroforaminal stenosis. C6-C7: Broad- based disc osteophyte complex centrally and uncovertebral spurring resulting in severe bilateral neuroforaminal and severe spinal canal stenosis. C7-T1: There is no posterior disc contour abnormality. There is no significant central canal or neural foraminal stenosis. The prevertebral and posterior paraspinous soft tissues are within normal limits. MRI THORACIC SPINE: Alignment: Within normal limits. Vertebrae/Intervertebral Discs: The vertebral body heights are intact. Marrow signal is within normal limits. Multilevel disc space narrowing with disc desiccation, most severe at the upper thoracic spine. There is no significant central canal stenosis. Spinal cord: Normal in signal. T1-2: There is no significant central canal stenosis. T2-3: There is no significant central canal stenosis. T3-4: Mild right neural foraminal stenosis secondary to facet arthropathy. No spinal canal stenosis.T4-5: There is no significant central canal stenosis. T5-6: There is no significant central canal stenosis. T6-7: There is no significant central canal stenosis. T7-8: Mild left neuroforaminal stenosis secondary to foraminal disc protrusion. No spinal canal stenosis. T8-9: Mild left neuroforaminal stenosis secondary to subarticular and foraminal disc protrusion. No spinal canal stenosis. T9-10: Mild left neuroforaminal stenosis secondary to foraminal disc protrusion. No spinal canal stenosis. T10-11: Mild left neuroforaminal stenosis secondary to foraminal disc protrusion. No spinal canal stenosis. T11-12: There is no significant central canal stenosis. Paraspinous Soft Tissues: Within normal limits. MRI LUMBAR SPINE: Alignment: The vertebral alignment is maintained. Vertebrae/Intervertebral Discs: The vertebral bodies demonstrate expected height. Type 2 Modic changes at the endplates of L4-5 and L5-S1. Mild L4-5 and moderate L5-S1 disc space narrowing with desiccation. Conus medullaris: The conus medullaris terminates at L1-2. T12-L1: No disc bulge. There is no significant central canal or neural foraminal stenosis. L1-2: No disc bulge. There is no significant central canal or neural foraminal stenosis. L2-3: No disc bulge. There is no significant central canal or neural foraminal stenosis. L3-4: Mild disc bulge. Mild bilateral foraminal stenosis without central canal stenosis. L4-5: Broad-based disc protrusion and facet arthropathy. Moderate to severe right foraminal stenosis and mild left foraminal stenosis. There is impingement of the right L5 nerve root in the lateralrecess. L5-S1: Broad-base disc protrusion asymmetric to left and facet arthropathy resulting in mild spinal canal, moderate left and mild right neuroforaminal stenosis increased from prior. Status post left L5 laminectomy. There is impingement of the left S1 nerve root in the lateral recess. The pre vertebral and posterior paraspinous soft tissues are unremarkable. 1. Advanced cervical spondylosis at C5-6 and C6-7 with moderate C5-6 and severe C6-7 spinal canal stenosis as well as severe right C5-6 and bilateral C6-7 foraminal stenosis. There is STIR hyperintense signal within the spinal cord at C6-7 level which likely represents myelomalacia, although cord edema or demyelinating disease although less likely can not be excluded. 2. Broad-base disc protrusion and facet arthropathy at L5-S1 resulting in mild spinal canal, moderate left and mild right neuralforaminal stenosis, in addition to impingement of the right L5 nerve root in the lateral recess, slightly worsened from prior. Postoperative changes of the L5-S1 disc and left L5 lamina. 3. Broad-based disc protrusion and facet arthropathy at L4-5 resulting in mild spinal canal and mild bilateral neural foraminal stenosis in addition to impingement of the left S film is a in the lateral recess, slightly worse from prior. 4. Multilevel thoracic disc protrusions and mild neuroforaminal stenosis as above. MACRO: None Signed by: Luana Lawson 02/18/2024 11:18 AM Dictation workstation: [id number] MR lumbar spine w and wo IV contrast Result Date: 02/18/2024 Interpreted By: Luana Lawson and Lawrence Austen STUDY: MR CERVICAL SPINE WO IV CONTRAST; MR LUMBAR SPINE W AND WO IV CONTRAST; MR THORACIC SPINE WO IV CONTRAST; 02/17/2024 7:08 pm; 02/17/2024 7:09 pm INDICATION: Signs/Symptoms:pain. ,M54.10 Radiculopathy, site unspecified COMPARISON: [id number]/07/2018, MRI 08/17/2016. ACCESSION NUMBER(S): [id number]; [id number]; [id number] ORDERING CLINICIAN: SHA FOSTER TECHNIQUE: Sagittal T1, T2, STIR, axial T1 and axial T2 weighted images were acquired through the cervical spine. Additionally, postcontrast images of the lumbar spine wereobtained following 15 ML of Dotarem administration. FINDINGS: Alignment: Trace C4-5 anterolisthesis. Vertebrae/Intervertebral Discs: The vertebral bodies demonstrate expected height. Small anterior osteophytes. Mild Modic type endplate changes at C6-7. Mild disc space narrowing at C5-6 and C6-7. Cord: There is mild contour abnormality and hyperintense STIR signal within the spinal cord posteriorly at the level of C6-7 in the region of the below mentioned disc osteophyte complex. C1-C2: The cervicomedullary junction appears unremarkable. There is no central canal stenosis. C2-C3: Mild disc bulge. There is no significant central canal or neural foraminal stenosis. C3-C4: There is no posteriordisc contour abnormality. No spinal canal or foraminal stenosis C4-C5: There is no posterior disc contour abnormality. Moderate right and mild left neuroforaminal stenosis secondary to uncovertebral spurring. C5-C6: Broad-based right paracentral disc osteophyte complex and uncovertebral spurring resulting in moderate spinal canal, severe right and moderate left neuroforaminal stenosis. C6-C7: Broad- based disc osteophyte complex centrally and uncovertebral spurring resulting in severe bilateral neuroforaminal and severe spinal canal stenosis. C7-T1: There is no posterior disc contour abnormality. There is no significant central canal or neural foraminal stenosis. The prevertebral and posterior paraspinous soft tissues are within normal limits. MRI THORACIC SPINE: Alignment: Within normal limits. Vertebrae/Intervertebral Discs: The vertebral body heights are intact. Marrow signal is within normal limits. Multilevel disc space narrowing with disc desiccation, most severe at the upper thoracic spine. There is no significant central canal stenosis. Spinal cord: Normal in signal. T1-2: There is no significant central canal stenosis. T2-3: There is no significant central canal stenosis. T3-4: Mild right neural foraminal stenosis secondary to facet arthropathy. No spinal canal stenosis.T4-5: There is no significant central canal stenosis. T5-6: There is no significant central canal stenosis. T6-7: There is no significant central canal stenosis. T7-8: Mild left neuroforaminal stenosis secondary to foraminal disc protrusion. No spinal canal stenosis. T8-9: Mild left neuroforaminal stenosis secondary to subarticular and foraminal disc protrusion. No spinal canal stenosis. T9-10: Mild left neuroforaminal stenosis secondary to foraminal disc protrusion. No spinal canal stenosis. T10-11: Mild left neuroforaminal stenosis secondary to foraminal disc protrusion. No spinal canal stenosis. T11-12: There is no significant central canal stenosis. Paraspinous Soft Tissues: Within normal limits. MRI LUMBAR SPINE: Alignment: The vertebral alignment is maintained. Vertebrae/Intervertebral Discs: The vertebral bodies demonstrate expected height. Type 2 Modic changes at the endplates of L4-5 and L5-S1. Mild L4-5 and moderate L5-S1 disc space narrowing with desiccation. Conus medullaris: The conus medullaris terminates at L1-2. T12-L1: No disc bulge. There is no significant central canal or neural foraminal stenosis. L1-2: No disc bulge. There is no significant central canal or neural foraminal stenosis. L2-3: No disc bulge. There is no significant central canal or neural foraminal stenosis. L3-4: Mild disc bulge. Mild bilateral foraminal stenosis without central canal stenosis. L4-5: Broad-based disc protrusion and facet arthropathy. Moderate to severe right foraminal stenosis and mild left foraminal stenosis. There is impingement of the right L5 nerve root in the lateralrecess. L5-S1: Broad-base disc protrusion asymmetric to left and facet arthropathy resulting in mild spinal canal, moderate left and mild right neuroforaminal stenosis increased from prior. Status post left L5 laminectomy. There is impingement of the left S1 nerve root in the lateral recess. The pre vertebral and posterior paraspinous soft tissues are unremarkable. 1. Advanced cervical spondylosis at C5-6 and C6-7 with moderate C5-6 and severe C6-7 spinal canal stenosis as well as severe right C5-6 and bilateral C6-7 foraminal stenosis. There is STIR hyperintense signal within the spinal cord at C6-7 level which likely represents myelomalacia, although cord edema or demyelinating disease although less likely can not be excluded. 2. Broad-base disc protrusion and facet arthropathy at L5-S1 resulting in mild spinal canal, moderate left and mild right neuralforaminal stenosis, in addition to impingement of the right L5 nerve root in the lateral recess, slightly worsened from prior. Postoperative changes of the L5-S1 disc and left L5 lamina. 3. Broad-based disc protrusion and facet arthropathy at L4-5 resulting in mild spinal canal and mild bilateral neural foraminal stenosis in addition to impingement of the left S film is a in the lateral recess, slightly worse from prior. 4. Multilevel thoracic disc protrusions and mild neuroforaminal stenosis as above. MACRO: None Signed by: Luana Lawson 02/18/2024 11:18 AM Dictation workstation: [id number] XR lumbar spine 2-3 views Result Date: 11/14/2023 EXAMINATION: 3 XRAY VIEWS OF THE LUMBAR SPINE 11/14/2023 10:19 pm COMPARISON: Lumbar spine radiographs May 25, 2017 HISTORY: ORDERING SYSTEM PROVIDED HISTORY: back pain TECHNOLOGIST PROVIDED HISTORY:Reason for exam:->back pain What reading provider will be dictating this exam?->CRC FINDINGS:Normal mineralization. No traumatic malalignment. No fracture. Vertebral body heights are maintained. Multilevel endplate degenerative change and disc height loss most notably L3-L4 and L4-L5 with mild facet arthrosis. 1. No fracture or traumatic malalignment. 2. Multilevel degenerative change most notably L3-L4 and L4-L5. CT lumbar spine wo IV contrast Result Date: 08/28/2023 EXAMINATION: CT OF THE CERVICAL SPINE WITHOUT CONTRAST; CT OF THE LUMBAR SPINE WITHOUT CONTRAST; CTOF THE THORACIC SPINE WITHOUT CONTRAST 08/28/2023 10:16 pm TECHNIQUE: CT of the cervical spine was performed without the administration of intravenous contrast. Multiplanar reformatted images are provided for review. Automated exposure control, iterative reconstruction, and/or weight based adjustment of the mA/kV was utilized to reduce the radiation dose to as low as reasonably achievable.; CT of the lumbar spine was performed without the administration of intravenous contrast. Multiplanar reformatted images are provided for review. Adjustment of mA and/or kV according to patient size was utilized. Automated exposure control, iterative reconstruction, and/or weight based adjustment of the mA/kV was utilized to reduce the radiation dose to as low as reasonably achievable.; CT of the thoracic spine was performed without the administration of intravenous contrast. Multiplanar reformatted images are provided for review. Automated exposure control, iterative reconstruction, and/or weight based adjustment of the mA/kV was utilized to reduce the radiation dose to as low as reasonably achievable. COMPARISON: Lumbar spine radiographs July 22, 2016. HISTORY: ORDERING SYSTEM PROVIDED HISTORY: numbness to hands TECHNOLOGIST PROVIDED HISTORY: Reason for exam:->numbness to hands Decision Supp ort Exception - unselect if not a suspected or confirmed emergency medical condition->Emergency Medical Condition (MA) What reading provider will be dictating this exam?->CRC FINDINGS: BONES/ALIGNMENT: There is no acute fracture or traumatic malalignment. 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 DEGENERATIVE CHANGES: Mild multilevel degenerative change. Most notably in the cervical and lumbar spine. Most severe cervical spine area is C5 through C7 where there is uncovertebral joint hypertrophy, disc height loss, and endplate degenerative change. In the lumbar spine marked disc height loss, endplate degenerative change and vacuum phenomena at L4-L5 and L5- S1. Minimal endplate degenerative change of the thoracic spine. No high-grade osseous narrowing of the spinal. SOFT TISSUES: There is no prevertebral soft tissue swelling. 1. No acute abnormality of the cervical, thoracic, or lumbar spine. 2. Multilevel degenerative changes as above. CT thoracic spine wo IV contrast Result Date: 08/28/2023 EXAMINATION: CT OF THE CERVICAL SPINE WITHOUT CONTRAST; CT OF THE LUMBAR SPINE WITHOUT CONTRAST; CTOF THE THORACIC SPINE WITHOUT CONTRAST 08/28/2023 10:16 pm TECHNIQUE: CT of the cervical spine was performed without the administration of intravenous contrast. Multiplanar reformatted images are provided for review. Automated exposure control, iterative reconstruction, and/or weight based adjustment of the mA/kV was utilized to reduce the radiation dose to as low as reasonably achievable.; CT of the lumbar spine was performed without the administration of intravenous contrast. Multiplanar reformatted images are provided for review. Adjustment of mA and/or kV according to patient size was utilized. Automated exposure control, iterative reconstruction, and/or weight based adjustment of the mA/kV was utilized to reduce the radiation dose to as low as reasonably achievable.; CT of the thoracic spine was performed without the administration of intravenous contrast. Multiplanar reformatted images are provided for review. Automated exposure control, iterative reconstruction, and/or weight based adjustment of the mA/kV was utilized to reduce the radiation dose to as low as reasonably achievable. COMPARISON: Lumbar spine radiographs July 22, 2016. HISTORY: ORDERING SYSTEM PROVIDED HISTORY: numbness to hands TECHNOLOGIST PROVIDED HISTORY: Reason for exam:->numbness to hands Decision Supp ort Exception - unselect if not a suspected or confirmed emergency medical condition->Emergency Medical Condition (MA) What reading provider will be dictating this exam?->CRC FINDINGS: BONES/ALIGNMENT: There is no acute fracture or traumatic malalignment. 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 DEGENERATIVE CHANGES: Mild multilevel degenerative change. Most notably in the cervical and lumbar spine. Most severe cervical spine area is C5 through C7 where there is uncovertebral joint hypertrophy, disc height loss, and endplate degenerative change. In the lumbar spine marked disc height loss, endplate degenerative change and vacuum phenomena at L4-L5 and L5- S1. Minimal endplate degenerative change of the thoracic spine. No high-grade osseous narrowing of the spinal. SOFT TISSUES: There is no prevertebral soft tissue swelling. 1. No acute abnormality of the cervical, thoracic, or lumbar spine. 2. Multilevel degenerative changes as above. CT cervical spine wo IV contrast Result Date: 08/28/2023 EXAMINATION: CT OF THE CERVICAL SPINE WITHOUT CONTRAST; CT OF THE LUMBAR SPINE WITHOUT CONTRAST; CTOF THE THORACIC SPINE WITHOUT CONTRAST 08/28/2023 10:16 pm TECHNIQUE: CT of the cervical spine was performed without the administration of intravenous contrast. Multiplanar reformatted images are provided for review. Automated exposure control, iterative reconstruction, and/or weight based adjustment of the mA/kV was utilized to reduce the radiation dose to as low as reasonably achievable.; CT of the lumbar spine was performed without the administration of intravenous contrast. Multiplanar reformatted images are provided for review. Adjustment of mA and/or kV according to patient size was utilized. Automated exposure control, iterative reconstruction, and/or weight based adjustment of the mA/kV was utilized to reduce the radiation dose to as low as reasonably achievable.; CT of the thoracic spine was performed without the administration of intravenous contrast. Multiplanar reformatted images are provided for review. Automated exposure control, iterative reconstruction, and/or weight based adjustment of the mA/kV was utilized to reduce the radiation dose to as low as reasonably achievable. COMPARISON: Lumbar spine radiographs July 22, 2016. HISTORY: ORDERING SYSTEM PROVIDED HISTORY: numbness to hands TECHNOLOGIST PROVIDED HISTORY: Reason for exam:->numbness to hands Decision Supp ort Exception - unselect if not a suspected or confirmed emergency medical condition->Emergency Medical Condition (MA) What reading provider will be dictating this exam?->CRC FINDINGS: BONES/ALIGNMENT: There is no acute fracture or traumatic malalignment. 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 DEGENERATIVE CHANGES: Mild multilevel degenerative change. Most notably in the cervical and lumbar spine. Most severe cervical spine area is C5 through C7 where there is uncovertebral joint hypertrophy, disc height loss, and endplate degenerative change. In the lumbar spine marked disc height loss, endplate degenerative change and vacuum phenomena at L4-L5 and L5- S1. Minimal endplate degenerative change of the thoracic spine. No high-grade osseous narrowing of the spinal. SOFT TISSUES: There is no prevertebral soft tissue swelling. 1. No acute abnormality of the cervical, thoracic, or lumbar spine. 2. Multilevel degenerative changes as above. Assessment/Plan 43 years old with history and physical examination supportive of lumbar radiculopathy with left foot drop Plan Advised the patient to proceed with physical therapy and I will be starting the patient on gabapentin 300 mg 3 times per day while he continues to be on the baclofen titration if the patient feels fails the physical therapy and knowing that he is currently already taking ibuprofen and Tylenol then at that time I would recommend for him a trial of a lumbar epidural steroid injection to be performed under fluoroscopic guidance with injection of contrast material benefits and risk of the procedurewere discussed with the patient and he is in agreement to proceed The above clinical summary has been dictated with voice recognition software. It has not been proofread for grammatical errors, typographical mistakes, or other semantic inconsistencies. Thank you for visiting our office today. It was our pleasure to take part in your healthcare. Please do not hesitate to contact the pain clinic after your visit with any questions or concerns at [phone] M-F 8-4 pm Suraj Meyers M.D. Territory Sales Professional , Division of Pain Medicine [facility] Criminal Justice Lawyer of Anesthesiology and Pain Medicine [facility] [employer] [place] [address] [place] [address] Office: [phone] Suraj Meyers MD [1] Past Medical History: Diagnosis Date Contusion of chest wall 06/28/2024 Disease due to severe acute respiratory syndrome coronavirus 2 (SARS-CoV-2) 06/28/2024 Fall 06/28/2024 Fever 06/28/2024 Marijuana use 09/04/2014 Per tox screen 08/2014: Patient informed he will receive no further controlled medication scripts from physicians at [facility] [place]. Also violation of signed controlled substance agreement. Pain in leg, unspecified Leg pain Personal history of other diseases of the musculoskeletal system and connective tissue History of backache Suspected severe acute respiratory syndrome coronavirus 2 (SARS-CoV-2) infection 06/28/2024 Syncope 06/28/2024 Tendonitis of wrist, left 09/18/2013 Toothache 06/28/2024 [2] Past Surgical History: Procedure Laterality Date TONSILLECTOMY 09/06/2015 Tonsillectomy [3] No family history on file. [4] No Known Allergies documented in this [facility] Work Phone: 1(263) 435-563805-12-2025 History of Present illness Narrative* Deandra May RN - 07/24/2024 8:30 AM EDT Subjective Harman Jamil is a 43 y.o. year old male patient here for chronic pain management. Patient has a history of chronic pain in his back and down into his left leg. Pain is improved by: medication- flexeril. He is here to discuss options available for his discomfort. Cat scan recently completed The pt has no started any physical therapy. No pt has no sensation in his right leg. Review of Systems Objective Physical Exam Assessment/Plan documented in this [facility] Work Phone: 1(449) 610-299505-07-2025 History of Present illness Narrative* Radha Boaz Dixon, - 07/19/2024 10:50 AM EDT Subjective Harman Jamil is a right handed 43 y.o. year old male who presents with Back Pain (NPV, d- Dr. Foster/sciatica), Neck Pain (NPV, ty- Dr. Foster), Extremity Weakness (NPV, ty- Dr. Foster), and Numbness (NPV, nicolad- Dr. Foster/From torso down/Can't feel warm or cold on torso as well). Visit type: new patient visit HPI He reports that he has numbness from the knee down. He reports that he can feel pins and needle sensation in his legs. His symptoms started in October. He went to bed one night with pain in his buttock and then woke up with clonus in his foot. Initially felt to be his low back as he had surgery on his low back in the past. 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 He continues to have gait imbalance, spasticity with clonus, difficulty with his bowels and bladderas well has numbness/tingling in the 4/5th digits in his hands. He has not done any PT. Orthopedic surgery ordered repeat spine imaging because he had not improved. He was waiting for PT. He has poor social support. Currently living with his niece. States he has been homeless in the past. He is a however [facility]. Review of Systems Musculoskeletal: Positive for gait problem. Neurological: Positive for weakness and numbness. All other systems reviewed and are negative. All other systems have been reviewed and are negative for complaint. Medical History[1] Family History[2] Surgical History[3] Social History Tobacco Use Smoking status: Every Day Current packs/day: 0.50 Average packs/day: 0.5 packs/day for 27.4 years (13.7 ttl pk-yrs) Types: Cigarettes Start date: 02/22/1997 Smokeless tobacco: Never Substance Use Topics Alcohol use: Not Currently Objective Neurological Exam Physical Exam On general examination, the patient is well appearing and well groomed. Heart is regular, rate and rhythm. Lungs are clear to ausculation bilaterally. There is no peripheral edema. Normal pedal pulses bilaterally. No carotid bruits. On neurologic examination, the mental status is unremarkable to informal testing. The history is related in quite good detail with no obvious deficit of attention, memory or language. Fund of knowledge is adequate. Orientation is intact to person, place and time. Spontaneous speech is fluent with no paraphasic or aphasic errors. On cranial nerve exam, the pupils are equal, round and reactive to light. Extraocular movements are full, without nystagmus. She reports no double vision on sustained upgaze or lateral gaze. Visual buitrago are full to confrontation. The fundi are benign with normal sharp disc margins. There is no bulbofacial weakness or ptosis. There is no ptosis with sustained upgaze. The tongue is midline with no wasting or fasciculations. The palate elevates symmetrically. Facial sensation is intact to light touch and pinprick bilaterally. Hearing is intact to finger rub bilaterally. Shoulder shrug is 5/5 bilaterally. Neck flexion and extension have full strength. Motor examination reveals normal tone and bulk in the upper and lower extremities bilaterally. There are no fasciculations. There is full strength in the proximal and distal muscles of the upper and lower extremities bilaterally. Deep tendon reflexes are 2/4 at the biceps and brachioradialis, 3/4 at the triceps. Knee jerks are 3/4 and he has clonus at the ankle. Plantar responses are flexor bilaterally. Fine finger movements and rapid alternating movements are done well in both hands. There is no tremor. On coordination testing, ovwlrd-rbog-oshvuj testing are done well bilaterally. Sensory examination reveals intact vibratory sense at the ankle. Gait is spastic with wide based and foot flapping. Assessment/Plan Mr. Jamil is a 43 year old man presenting for initial evaluation of myelopathy. Patient presented in October with back pain with radiation down his leg. Then presented in January with leg numbness and fecal incontinence. He then had an MRI c spine performed which showed severe stenosis at C6-7 with myelomalacia of the cord. Appears patient was having progressive spacticity over those months based on his description of hissymptoms. I showed the patient his imaging and we discussed the permanent nature of myelomalacia ofthe cord and that surgery prevents progression but does not fix the damage. He needs aggressive PT and spasticity management. He continues to have radicular pain from his low back and will see pain management for it. For his spasticity will start him on baclofen 5 mg TID, uptitrate to 10 mg TID as tolerated. Referral to PM&R for further spasticity management provided. Agree that a repeat MRI C spine should beperformed however his exam localizes to C6-7 myelomalacia and there seems to be no indication to repeat Mri T spine and L spine which were just performed in February. Radha Dixon DO [1] Past Medical History: Diagnosis Date Contusion of chest wall 06/28/2024 Disease due to severe acute respiratory syndrome coronavirus 2 (SARS-CoV-2) 06/28/2024 Fall 06/28/2024 Fever 06/28/2024 Marijuana use 09/04/2014 Per tox screen 08/2014: Patient informed he will receive no further controlled medication scripts from physicians at [facility] [place]. Also violation of signed controlled substance agreement. Pain in leg, unspecified Leg pain Personal history of other diseases of the musculoskeletal system and connective tissue History of backache Suspected severe acute respiratory syndrome coronavirus 2 (SARS-CoV-2) infection 06/28/2024 Syncope 06/28/2024 Tendonitis of wrist, left 09/18/2013 Toothache 06/28/2024 [2] No family history on file. [3] Past Surgical History: Procedure Laterality Date TONSILLECTOMY 09/06/2015 Tonsillectomy documented in this [facility] Work Phone: 1(564) 685-125005-07-2025 Instructions* Patient Instructions* Radha Dixon DO - 07/19/2024 10:50 AM EDT Recommend starting baclofen for the spasticity and referring you to PM&R for management. They are the experts in spasticity management. The baclofen may make you sleepy. If you tolerate the 5 mg three times a day without benefit then you can increase to 10 mg three times a day after 7-14 days depending on side effects. You can not take this with Flexeril. This medication should not be suddenly stopped and needs to be tapered off if you decide to stop it. Its best not to drink alcohol while taking this medication. [facility] Phone: 1(208) 682-641905-02-2025 Hospital Discharge instructions* Discharge Instr - DONNIE* Ines Salter PA - 07/14/2024 12:21 AM EDT Continuity of Care Form Patient Name: Harman Jamil : 1980 Admit date: 07/13/2024 Discharge date: Code Status Order: No Order Advance Directives: Admitting Physician: No admitting provider for patient encounter. PCP: Josafat Leonard DO Discharging Nurse: Discharging Hospital Unit/Room#: 05/15 Discharging Unit Phone Number: Emergency Contact: Extended Emergency Contact Information Primary Emergency Contact: Sis Delgadillo [facility] Relation: Other Past Surgical History: Past Surgical History: Procedure Laterality Date BACK SURGERY 10/2015 herniated disc TONSILLECTOMY Immunization History: There is no immunization history on file for this patient. Active Problems: There is no problem list on file for this patient. Isolation/Infection: Isolation No Isolation Patient Infection Status None to display Nurse Assessment: Last Vital Signs: BP (!) 137/92 Pulse 98 Temp 100 F (37.8 C) (Oral) Resp 19 Wt 84.7 kg (186lb 12.8 oz) SpO2 97% BMI 24.65 kg/m Last documented pain score (0-10 scale): Pain Level: 7 Last Weight: Wt Readings from Last 1 Encounters: 07/13/24 84.7 kg (186 lb 12.8 oz) Mental Status: {IP PT MENTAL STATUS:} IV Access: { DONNIE IV ACCESS:475434234} Nursing Mobility/ADLs: Walking {CHP DME ADLs:031632782} Transfer {CHP DME ADLs:950171417} Bathing {CHP DME ADLs:804106909} Dressing {CHP DME ADLs:360201681} Toileting {CHP DME ADLs:508114321} Feeding {CHP DME ADLs:902385722} Advanced Quality Engineer {CHP DME ADLs:705684860} Med Delivery { DONNIE MED Delivery:845425697} Wound Care Documentation and Therapy: Elimination: Continence: Bowel: {YES / NO:} Bladder: {YES / NO:} Urinary Catheter: {Urinary Catheter:066540847} Colostomy/Ileostomy/Ileal Conduit: {YES / NO:} Date of Last BM: No intake or output data in the 24 hours ending 07/14/24 0020 No intake/output data recorded. Safety Concerns: { DONNIE Safety Concerns:441355314} Impairments/Disabilities: { DONNIE Impairments/Disabilities:560880143} Nutrition Therapy: Current Nutrition Therapy: { DONNIE Diet List:153682006} Routes of Feeding: {P DME Other Feedings:874479430} Liquids: {Service Delivery Management Consultant liquid thickness:39091} Daily Fluid Restriction: {CHP DME Yes amt example:832932473} Last Modified Barium Swallow with Video (Video Swallowing Test): {Done Not Done Date:} Treatments at the Time of Hospital Discharge: Respiratory Treatments: Oxygen Therapy: {Therapy; copd oxygen:71355} Ventilator: { CC Vent List:611149246} Rehab Therapies: {THERAPEUTIC INTERVENTION:7632857186} Weight Bearing Status/Restrictions: {[facility] Weight Bearin} Other Medical Equipment (for information only, NOT a DME order): {EQUIPMENT:601526794} Other Treatments: Patient's personal belongings (please select all that are sent with patient): {[facility] DME Belongings:137067046} RN SIGNATURE: {Esignature:080172467} CASE MANAGEMENT/SOCIAL WORK SECTION Inpatient Status Date: Readmission Risk Assessment Score: [facility] RISK OF UNPLANNED READMISSION 2.0 0 Total Score Discharging to Facility/ Agency Name: Address: Phone: Fax: Dialysis Facility (if applicable) Name: Address: Dialysis Schedule: Phone: Fax: Academic Advising Director/Turn Out signature: {Esignature:933245120} PHYSICIAN SECTION Prognosis: {Prognosis:2897103393} Condition at Discharge: { Patient Condition:268462022} Rehab Potential (if transferring to Rehab): {Prognosis:8826855427} Recommended Labs or Other Treatments After Discharge: Physician Certification: I certify the above information and transfer of Harman Jamil is necessary for the continuing treatment of the diagnosis listed and that he requires {Admit to Appropriate Level of Care:90854} for {GREATER/LESS:432723255} 30 days. Update Admission H&P: {CHP DME Changes in HandP:753199267} PHYSICIAN SIGNATURE: {Esignature:090823483} * Attachments The following attachments cannot be sent through Care Everywhere. * Back: Strain (Surinamese) [facility] History of Present illness Narrative* Josafat Leonard, DO - 06/28/2024 9:20 AM EDT Subjective Patient ID: Harman Jamil is a 43 y.o. male who presents for Re-Establish Care (Pt in today to re-establish care / discuss insomnia & pain). Review of Systems Denies N/V/D/C, no YUNG/S/V, denies rashes/lesions, no CP/SOB. Denies fevers/chills. All other systems were negative. Objective BP (!) 134/99 (BP Location: Right arm, Patient Position: Sitting, BP Cuff Size: Adult) Pulse 80 Ht 1.831 m (6' 0.1) Wt 84.8 kg (187 lb) SpO2 98% BMI 25.29 kg/m Physical Exam Gen: NAD, hyperverbal, not redirectable, pressured speech, eyes: EOMI, ENT: hearing grossly intact, no nasal discharge resp: breathing comfortably, no SOB noted derm: no rashes or lesions noted neuro: CN II-XII grossly intact psych: A&Ox3, mood pleasant, affect appropriate, recent and remote memory grossly intact. m/s: halting, irregular gait Assessment/Plan Problem List Items Addressed This Visit None Patient here today to reestablish, do annual preventative visit and planning annual labs. ----- - Immunization counseling: Patient is due for annual flu shot, latest COVID booster, and Tdap. -->> Check with your pharmacy to keep up to date on immunizations. - Screening for hepatitis C will be done next time we do labs. ----- Regarding previous labs: Note: We have not yet planned when we will do future labs. Will address at next appointment. Hyperlipidemia: Per history, most recent LDL was 116, total to good ratio was 5.3. -->> We will be checking next time we do labs. Vitamin D deficiency: Most recent vitamin D was 14, our goal is 75-100. -->> Will prescribe vitamin D for vitamin D deficiency, but also because it can help with chronic pain. Perceived insomnia. The patient reports sleeping approximately four hours per night and is requesting sleep medication. He attributes the insomnia to high caffeine intake, which he uses to manage ADHD symptoms. Despite this, he denies daytime sleepiness and appears to lack insight into the role caffeine plays in his sleep difficulties, focusing instead on medication as a solution. -->> We de clined to prescribe any sleep aids. ADHD, bipolar disorder. Diagnoses noted on chart per history. Patient did mention ADHD several times. Not on any meds at this time. Patient's behavior today would make me at least consider manic episode in the differential to explain today's behavior. -->> Although not discussed with the patient before he left, I think a referral to psychiatry could benefit patient, assuming he would be willing to listen. I put in a referral to psychiatry for further evaluation and possible treatment as indicated. Hyperverbal, pressured speech, not redirectable, manic episode is in the differential. Patient spoke very fast in long, run-on sentences that were difficult to follow, with thoughts flowing rapidly from one topic to another without clear transitions. Speech was incoherent at times. The patient had d ifficulty engaging in reciprocal dialogue, often speaking over me. The patient used language that appeared internally consistent to him, but lacked meaning to me. When asked to repeat a phrase, more slowly, he used the same words but still was not making sense to me. After several attempts to redirect patient's communications and slow down so I could understand him better, I suggested he take a deep breath and slow down, to which he told me not to speak to him like a child. He then walked out. We are referring the patient to psychiatry for further evaluation and management. Given the currentseverity of his pressured speech and inability to engage in a productive conversation, I recommend deferring follow-up here until these symptoms are better managed. [facility] Phone: 1(389) 862-946904-03-2025 Hospital Discharge instructions* Discharge Instructions* Lisa Polanco MD - 06/15/2024 10:16 PM EDT You were seen in the ER today due to concern for exacerbation/flareup of your back pain with sciatica going down your left leg. Therefore, we did give you IM Toradol, prednisone and Flexeril. I will prescribe you steroids for the next 4 days along with naproxen for pain. Please do not take naproxenand ibuprofen together as they are similarly acting and can cause stomach ulcers. Flexeril you may take for the muscle relaxation but please do not take it when driving or operating heavy machinery. Unfortunately, for back pain, we cannot prescribe narcotic pain medication at this time. Especially,given that you are following up with neurosurgery regularly for this. Anti-inflammatory medicationsand steroids are more proven to work. Please return if you develop any worsening symptoms such as complete inability to walk, complete loss of control of bowel or bladder, fevers and chills with low back pain. * Attachments The following attachments cannot be sent through Care Everywhere. * Sciatica (Surinamese) * Back Pain ([place]amese) [facility] of Present illness Narrative* Sha Foster MD - 06/06/2024 11:00 AM EDT Harman Jamil is a 43 y.o. male who presents for Post-op of the Neck (02/24/24 C5-6, C6-7 ACDF/3 months 13 days). HPI: 43-year-old gentleman here for postop visit. He is 3-1/2 months out from a C5-6 C6-7 ACDF. He denies any fever chills nausea vomiting night sweats. He has no bowel or bladder complaints. Physical exam: Well-nourished, well kept. Patient has a very unsteady gait. No lymphangitis or lymphadenopathy in the examined extremities. Affect normal. Alert and oriented X 3. Coordination normal. Patient can rise from a seated position, can sit from a standing position. Can stand on heels and toes. Patient istender in the paraspinal musculature of the cervical spine. range of motion is mildly decreased secondary to some pain and stiffness no weakness no instability to muscle strength. examination of the upper extremities reveals no point tenderness, swelling, or deformity. Range of motion of the shoulders, elbows, wrists, and fingers are full without crepitance, instability, or exacerbation of pain. Strength is 5/5 throughout. no redness, abrasions, or lesions on the upper extremities bilaterally. Gross sensation intact to the extremities. Deep tendon reflexes 2+ and symmetric bilaterally, exceptbicep reflexes are 3+. Garner positive bilaterally. He has sustained clonus bilaterally. Patellar r eflexes are hyperreflexic. Incision is very well-healed. Imaging studies: AP lateral plain films of the cervical spine were ordered and reviewed today. Assessment: 43-year-old gentleman here for postop visit. He is 3-1/2 months out from his C5- 6 C6-7 ACDF. He wasmyelopathic prior to surgery, he had hyperreflexia, Jo's, clonus, myelopathic gait. At his 2-week postop appointment a significant amount of the symptoms had resolved. He does still have some fi ndings on physical exam, he is hyperreflexic in the knees, I get 3+ reflex from his biceps bilaterally he has positive Jo and clonus. He had a fall 2 weeks ago and went to the emergency department for evaluation. He is also stating that he has increasing left lower extremity pain especially at night when sleeping. He has had very little sleep over the last couple of weeks. We have ordered and reviewed tests, x-rays. [facility] For complete plan and/or surgical details, please refer to Dr. Foster's portion of this split dictation. -Dev Martel PA-C In a [id number] encounter, I performed a history and physical examination, discussed pertinent diagnostic studies if indicated, and discussed diagnosis and management strategies with both the patient and the midlevel provider. I reviewed the midlevel's note and agree with the documented findings and plan of care. 3 months out C5-6 C6-7 ACDF for myelopathy. I feel like he is heading in the right direction and hedoes as well. He still myelopathic but he feels like he is improving. His urinary and bowel symptoms have improved slightly. His gait has improved slightly. He has less pain. He can walk and stand a little bit better. However he is concerned because he is still unable to get back to work and he is going to be homeless soon as the person he is living with is going to kick him out if he can get a job. He wants me to get MRIs to make sure everything looks okay. I told him not sure that that is necessary but and happy to order them for him if he like. We Argun to get cervical thoracic and lumbar MRIs to make sure his upper and lower extremity symptoms are not coming from persistent stenosis anywhere in his spine. He has a neurology visit coming up in July. I put that consult in quite some timeago and is the first visit he could get. We will see him back after the MRIs. On exam today he still is hyperreflexic in his upper and lower extremities and has a positive Jo's and has a myelopathic gait. He had a fall recently and he feels that that may have exacerbated his symptoms somewhatbut he still thinks overall he is somewhat improved now compared to before surgery but may be about10 to 15% at most. This patient is severely inhibited with bodily function. Sha Foster MD Orthopedic surgery [facility] Work Phone: [phone]) 528-424303-07-2025 Hospital Discharge instructions* Discharge Instructions* Nayan Hale PA-C - 05/19/2024 3:44 AM EST Follow closely with your primary spinal surgeon for recheck. Return sooner for new or worsening symptoms. 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 * Back Pain (Surinamese) * Fall Prevention ([place]) [facility] History of Present illness Narrative* Dev Martel PA-C - 03/07/2024 11:15 AM EST Harman Jamil is a 43 y.o. male who presents for Post-op of the Neck (02/24/24 C5-6, C6-7 ACDF/X-rays today/12 days PO). HPI: 43-year-old gentleman here for postop visit. He is 12 days out from a C5-6 C6-7 ACDF. He denies anyfever chills nausea vomiting night sweats. He has no bowel or bladder complaints. Physical exam: Well-nourished, well kept.No lymphangitis or lymphadenopathy in the examined extremities. Gait is still somewhat unsteady and shaky but has improved since previous exam. Can stand on heels and toes with some difficulty. Examination of the back shows tenderness in the paraspinous musculature. Strength is 5/5 throughout the lower extremity, except left ankle dorsiflexion is about 4+/5. No redness, abrasions, or lesions on extremities Gross sensation intact in the extremities. Deep tendon reflexes2+ bilateral and brisk. Clonus 3 beat nonsustained clonus on the right foot, sustained clonus on the left foot. Affect normal. Alert and oriented 3. Coordination normal. Patient is tender in the paraspinal musculature of the cervical spine. range of motion is mildly decreased secondary to some pain and stiffness no weakness no instability to muscle strength. examination of the upper extremities reveals no point tenderness, swelling, or deformity. Range of motion ofthe shoulders, elbows, wrists, and fingers are full without crepitance, instability, or exacerbation of pain. Strength is 5/5 throughout. no redness, abrasions, or lesions on the upper extremities bilaterally. Gross sensation intact to the extremities. Deep tendon reflexes 2+ and symmetric bilaterally. Garner positive bilaterally. 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 Cervical incision is very well -healed. Still Steri-Strips in place. The drain wound is very well-healed. Imaging studies: AP lateral plain films of the cervical spine were ordered and reviewed. Assessment: 43-year-old gentleman here for postop visit. He is 12 days out from a C5-6, C6-7 ACDF. He was having significant myelopathic symptoms prior to surgery, he was having a very myelopathic gait, loose stools, some weakness in his upper extremities, left ankle dorsiflexion weakness and hyperreflexia with clonus and Jo's. He patient feels that his symptoms have improved, I do not get any weaknessin his upper extremities, he still has bilateral Jo's. He has a 3 beat nonsustained clonus onhis right foot, he still has sustained clonus on his left foot. His gait has improved but it is still a little unsteady and shaky. His loose stools have resolved, he is having normal bowel movements.He has no swallowing or voice issues. He is describing some neck stiffness and soreness, he thinks this may be from the cervical collar. Overall he does notice improvement with mobility. X-rays are reviewed and show good hardware placement without hardware failure or other abnormality. His incisionis very well-healed. There was a drain, that drain incision is very well-healed. Steri-Strips on the cervical incision are still in place. For complete plan and/or surgical details, please refer to Dr. Foster's portion of this split dictation. -Dev Martel PA-C In a [id number] encounter, I performed a history and physical examination, discussed pertinent diagnostic studies if indicated, and discussed diagnosis and management strategies with both the patient and the midlevel provider. I reviewed the midlevel's note and agree with the documented findings and plan of care. Patient doing much better. Numbness and tingling in his hands is significantly proved. His gait is already improving. No swallowing or voice issues. He overall feels like he is heading in the right direction. His infection in his left axilla is healing in nicely. He has no signs of infection in hisneck as the wound is perfectly well-healed. There is no redness warmth swelling or puffiness. X-rays look good today with good positioning of hardware. We will let him continue with BLT restrictions and he can stop using his brace. And we will see him back in 3 months for AP lateral x-rays of the cervical spine. Sha Foster MD Orthopedic surgery documented in this [facility] Work Phone: 1([phone]) 523-733312-14-2024 Plan of care note* Care Plan - Felipe Acuña RN - 02/26/2024 10:26 AM EST Problem: Pain - Adult Goal: Verbalizes/displays adequate comfort level or baseline comfort level 02/26/2024 1026 by Felipe Acuña RN Outcome: Adequate for Discharge 02/26/2024 1014 by Felipe Acuña RN Outcome: Progressing Problem: Safety - Adult Goal: Free from fall injury 02/26/2024 1026 by Felipe Acuña RN Outcome: Adequate for Discharge 02/26/2024 1014 by Felipe Acuña RN Outcome: Progressing Problem: Discharge Planning Goal: Discharge to home or other facility with appropriate resources 02/26/2024 1026 by Felipe Acuña RN Outcome: Adequate for Discharge 02/26/2024 1014 by Felipe Acuña RN Outcome: Progressing Problem: Chronic Conditions and Co-morbidities Goal: Patient's chronic conditions and co-morbidity symptoms are monitored and maintained or improved 02/26/2024 1026 by Felipe Acuña RN Outcome: Adequate for Discharge 02/26/2024 1014 by Felipe Acuña RN Outcome: Progressing The patient's goals for the shift include rest and comfort The clinical goals for the shift include Pain management [facility] Miscellaneous Notes* Care Plan - Felipe Acuña RN - 02/26/2024 10:26 AM EST Problem: Pain - Adult Goal: Verbalizes/displays adequate comfort level or baseline comfort level 02/26/2024 1026 by Felipe Acuña RN Outcome: Adequate for Discharge 02/26/2024 1014 by Felipe Acuña RN Outcome: Progressing Problem: Safety - Adult Goal: Free from fall injury 02/26/2024 1026 by Felipe Acuña RN Outcome: Adequate for Discharge 02/26/2024 1014 by Felipe Acuña RN Outcome: Progressing Problem: Discharge Planning Goal: Discharge to home or other facility with appropriate resources 02/26/2024 1026 by Felipe Acuña RN Outcome: Adequate for Discharge 02/26/2024 1014 by Felipe Acuña RN Outcome: Progressing Problem: Chronic Conditions and Co-morbidities Goal: Patient's chronic conditions and co-morbidity symptoms are monitored and maintained or improved 02/26/2024 1026 by Felipe Acuña RN Outcome: Adequate for Discharge 02/26/2024 1014 by Felipe Acuña RN Outcome: Progressing The patient's goals for the shift include rest and comfort The clinical goals for the shift include Pain management * Care Plan - Felipe Acuña RN - 02/26/2024 10:14 AM EST Problem: Pain - Adult Goal: Verbalizes/displays adequate comfort level or baseline comfort level Outcome: Progressing Problem: Safety - Adult Goal: Free from fall injury Outcome: Progressing Problem: Discharge Planning Goal: Discharge to home or other facility with appropriate resources Outcome: Progressing Problem: Chronic Conditions and Co-morbidities Goal: Patient's chronic conditions and co-morbidity symptoms are monitored and maintained or improved Outcome: Progressing The patient's goals for the shift include rest and comfort The clinical goals for the shift include Pain management * Care Plan - Rafa Kwan RN - 02/26/2024 6:56 AM EST The patient's goals for the shift include rest and comfort The clinical goals for the shift include Patient will remain safe and HD stable. Pain managed to tolerable level Problem: Pain - Adult Goal: Verbalizes/displays adequate comfort level or baseline comfort level 02/26/2024655 by Rafa Kwan RN Outcome: Progressing 02/25/20242206 by Rafa Kwan RN Flowsheets (Taken 02/25/20242206) Verbalizes/displays adequate comfort level or baseline comfort level: Encourage patient to monitor pain and request assistance Assess pain using appropriate pain scale Administer analgesics based on type and severity of pain and evaluate response Implement non-pharmacological measures as appropriate and evaluate response Consider cultural and social influences on pain and pain management Notify Licensed Independent Practitioner if interventions unsuccessful or patient reports new pain Problem: Safety - Adult Goal: Free from fall injury 02/26/2024655 by Rafa Kwan RN Outcome: Progressing 02/25/20242206 by Rafa Kwan RN Flowsheets (Taken 02/25/20242206) Free from fall injury: Instruct family/caregiver on patient safety Problem: Discharge Planning Goal: Discharge to home or other facility with appropriate resources 02/26/2024655 by Rafa Kwan RN Outcome: Progressing 02/25/20242206 by Rafa Kwan RN Flowsheets (Taken 02/25/20242206) Discharge to home or other facility with appropriate resources: Identify barriers to discharge with patient and caregiver Arrange for needed discharge resources and transportation as appropriate Arrange for interpreters to assist at discharge as needed Identify discharge learning needs (meds, wound care, etc) Refer to discharge planning if patient needs post-hospital services based on physician order or complex needs related to functional status, cognitive ability or social support system Problem: Chronic Conditions and Co-morbidities Goal: Patient's chronic conditions and co-morbidity symptoms are monitored and maintained or improved 02/26/2024655 by Rafa Kwan RN Outcome: Progressing 02/25/20242206 by Rafa Kwan RN Flowsheets (Taken 02/25/20242206) Care Plan - Patient's Chronic Conditions and Co-Morbidity Symptoms are Monitored and Maintained or Improved: Monitor and assess patient's chronic conditions and comorbid symptoms for stability, deterioration,or improvement Collaborate with multidisciplinary team to address chronic and comorbid conditions and prevent exacerbation or deterioration Update acute care plan with appropriate goals if chronic or comorbid symptoms are exacerbated and prevent overall improvement and discharge Patient remained safe, neurologically and HD stable during this shift. However, patient patient displayed high level of nervousness and agitation this morning. * Care Plan - Felipe Acuña RN - 02/25/2024 10:43 AM EST Problem: Pain - Adult Goal: Verbalizes/displays adequate comfort level or baseline comfort level Outcome: Progressing Problem: Safety - Adult Goal: Free from fall injury Outcome: Progressing Problem: Discharge Planning Goal: Discharge to home or other facility with appropriate resources Outcome: Progressing Problem: Chronic Conditions and Co-morbidities Goal: Patient's chronic conditions and co-morbidity symptoms are monitored and maintained or improved Outcome: Progressing The patient's goals for the shift include rest and comfort The clinical goals for the shift include Pain management * Care Plan - Haley Laboy RN - 02/24/2024 11:05 PM EST The patient's goals for the shift include rest and comfort The clinical goals for the shift include pain management Over the shift, the patient did make progress toward the following goals. Barriers to progression include none. Recommendations to address these barriers include none. 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 Postop diagnosis: Above Procedure:1) C5-6 and C6-7 anterior cervical decompression and fusion decompressing centrally and bilateral foraminally. 2) C5-6 and C6 instrumentation. 3) C5-6 and C6-7 use of structural allograft/biologic bone graft 4) use of operative microscope. Surgeon: Sha Foster M.D. Asst.: None Dev LeosThe physician credentialing assistant was present through the entire case. Given thenature of the disease process and the procedure to be performed a skilled rn surgical was necessary during the case. The credentialing assistant was necessary in order to hold retractors and directly assistin the operation. A certified nuclear medicine technologist was at the back table managing instruments and supplies for the surgical case. Anesthesia: General Blood Loss: Less than 100 cc Complications: None HPI: The patient had neurologic symptoms including upper and lower extremity symptoms, hyperreflexia and inability to walk with a steady gait. See hospital note for details. The patient understand that waiting to do surgery created an increase neurologic risk. He understand that having surgery created an increased infection risk given his axillary abscesses. He completely understood the risks andbenefits of doing and not doing surgery and he wished to proceed with surgery now given his progressive neurologic changes. The patient failed all nonoperative treatment. All the risks, benefits, andpotential complications for operative and nonoperative treatment were discussed at length with the the patient. Risks of operative intervention include, but are not limited to: Anesthesia complications, excessive blood loss, infection, damaged uninjured structures including, but not limited to: Thedural sac, nerve roots, spinal cord, vertebral artery, trachea, esophagus, and carotid artery, blood clots and lack of improvement or worsening of symptoms. These complications could result in ,permanent disability including paralysis, swallowing or speech difficulty, or need for reoperation.The patient completely understood these risks and wished to proceed with operative intervention. Operative implants: NuVasive ACP plate and screws. Globus 3D printing cages filled with via cell bone graft.. Operative procedure: The patient was wheeled from the preanesthesia care unit to the operating theater. The patient was placed in supine position and all bony prominences were well-padded. For the entire procedure anesthesia maintainined control of the patient's head neck. General anesthesia was induced. A shoulder roll was placed between the patient's shoulder blades. The arms were well-padded and tucked to the patient's side. Tape was used to provide longitudinal traction over the foot of thebed. The head was placed in neutral rotation in an amount of extension that was determined in the preoperative hold area that was comfortable for the patient, and was taped in this position. Next, a needle was taped to the outside of the patient's neck and x-rays were taken to confirm the appropriate skin incision level. The neck was then marked and prepped and draped in a normal sterile fashion. Timeout was performed, site verification marking was verified, and appropriate antibiotic demonstration was confirmed. Next an incision was performed. Dissection was carried down through the skin with a knife and Bovie was used to dissect down through the platysma. Pickups and scissors were used todissect down to expose the interval between the trachea, esophagus and strap muscles in the midlineand the carotid sheath and sternocleidomastoid laterally. Appendiceal retractors were used and at this point the prevertebral fascia overlying the spine was visualized. Peanuts were used to spread the fascia exposing the vertebral bodies and disc and longus coli muscle. A bent spinal needle was inse rted into the C6-7 level. X-rays were taken confirm the appropriate level. Next, using appendiceal hand-held retractors the Bovie was used to lift the soft tissues and longuscoli out to the level of the uncovertebral joints bilaterally from the caudal portion of C5 to the cephalad portion of C7. The Bruce retractor was then placed under the longus coli muscle on bone centered over the C6-7 level. The microscope was then brought in for use. Cloward retractors were used to protect cephalad and caudal and the blades from the Bruce retractor were protecting medially and laterally. A 5 mm round bur was then used to take down the anteriorosteophytes. A knife was used to box cut the disc and a pituitary rongeur was used to remove the annulus. A pituitary rongeur was then used to remove the anterior two thirds of the disc. A [place] pinretractor was then placed to provide distraction of the disc space. O and #2 curettes were then used to take the disc completely off of the cephalad and caudal endplates laterally out to the uncovertebral joints. Curved 6-0 curette was then used to reach behind the cephalad and caudal vertebral bodies. First starting on the patient's right side #2 Kerr[place] was used to perform a foraminotomy decompressing the foramen and removing posterior osteophytes behind the cephalad and caudal vertebral bodies. This decompression was taken across to the contralateral side taking down all posterior osteophytes decompressing centrally and performing a foraminotomy on the contralateral side as well. The central decompression was taken down to full thickness through the posterior longitudinal ligament. this allowed complete central decompression and allowed for reaching underneath the cephalad and caudal vertebral body to ensure there was adequate central decompression of the spinal cord. A matchstickbur was used to square the endplates without violating the full-thickness of the endplates. The wound was irrigated copiously. FloSeal was used for the entire case to maintain hemostasis but no FloSeal was left in the patient. At this point there was no bleeding. [Next, an identical procedure was performed at the C5-6 level. Central and bilateral foraminal decompression was performed as scribed above. Endplate preparation was performed as described above. Hemostasis was maintained as described above. Trialing was performed and a size 7 extra-large cage was found to be appropriate at both levels. The cages were filled with appropriately prepared bone graft and inserted under tension and tension was removed. X-rays were taken to confirm appropriate cage positioning. A plate was then affixed anteriorly and all holes in the plate were hand drilled and filled. The screws were locked into position using the locking device on the plate. X-rays were taken and confirmed appropriate cage positioning as well as plate and screw positioning. At this point there was no bleeding and the wound was irrigated with copious amounts of normal saline. The platysma was closed with running 2-0 Vicryl. The skin was closed with 3-0 Vicryl and 4-0 Monocryl and Steri-Strips. A sterile dressing was applied. The patient was placed into a cervical collar. Spinal cord monitoring was used throughout the entire case and there was no evidence of any spinal cord monitoring abnormal changes. At the conclusion of the case the patient's fingers and toes were pink and warm with brisk capillary refill. The patient tolerated the procedure well. This dictation was created using voice recognition software. If there are any questions about inaccuracies please do not hesitate to contact me. * Care Plan - Haley Laboy RN - 02/24/2024 1:52 AM EST The patient's goals for the shift include rest and comfort The clinical goals for the shift include pain management Over the shift, the patient did make progress toward the following goals. Barriers to progression include none. Recommendations to address these barriers include none. * Care Plan - Felipe Acuña RN - 02/23/2024 9:17 AM EST Problem: Pain - Adult Goal: Verbalizes/displays adequate comfort level or baseline comfort level Outcome: Progressing Problem: Safety - Adult Goal: Free from fall injury Outcome: Progressing Problem: Discharge Planning Goal: Discharge to home or other facility with appropriate resources Outcome: Progressing Problem: Chronic Conditions and Co-morbidities Goal: Patient's chronic conditions and co-morbidity symptoms are monitored and maintained or improved Outcome: Progressing The patient's goals for the shift include rest and comfort The clinical goals for the shift include Pain management * Stanislaw Stinson - Haley Laboy RN - 02/23/2024 2:39 AM EST The patient's goals for the shift include rest and comfort The clinical goals for the shift include pain management Over the shift, the patient did make progress toward the following goals. Barriers to progression include none. Recommendations to address these barriers include none. * Stanislaw Stinson - Haley Laboy RN - 02/23/2024 1:58 AM EST The patient's goals for the shift include rest and comfort The clinical goals for the shift include pain management Over the shift, the patient did make progress toward the following goals. Barriers to progression include none. Recommendations to address these barriers include none. documented in this [facility] Work Phone: 1(173) 635-820412-14-2024 Plan of care note* Care Plan - Felipe Acuña RN - 02/26/2024 10:14 AM EST Problem: Pain - Adult Goal: Verbalizes/displays adequate comfort level or baseline comfort level Outcome: Progressing Problem: Safety - Adult Goal: Free from fall injury Outcome: Progressing Problem: Discharge Planning Goal: Discharge to home or other facility with appropriate resources Outcome: Progressing Problem: Chronic Conditions and Co-morbidities Goal: Patient's chronic conditions and co-morbidity symptoms are monitored and maintained or improved Outcome: Progressing The patient's goals for the shift include rest and comfort The clinical goals for the shift include Pain management [facility] Work Phone: [phone]) 262-120012-14-2024 Hospital course Narrative* Wolfgang Childers APRN-MINA - 02/26/2024 9:55 AM EST Images from the original note were not included. Discharge summary This patient Harman Jamil was admitted to the hospital on 02/22/2024 after undergoing Procedure(s) (LRB): C5-6, C6-7 Anterior Cervical Decompression and Fusion (N/A) without complications that morning. During the postoperative period,while in hospital, patient was medically managed by the hospitalist. Please see medial notes and H&P for patients additional diagnoses. Ortho agrees with all medical diagnoses and treatments while patient in hospital. No significant or unexpected findings or abnormal ortho imaging were noted during the hospital stay Hospital course Patient tolerated surgical procedure well and there was no complications. Patient progressed adequately through their recovery during hospital stay including PT and rehabilitation. Patient was then D/C on to home in stable condition. Patient was instructed on the use of pain medications, the signs and symptoms of infection, and wasgiven our number to call should they have any questions or concerns following discharge. Based on my clinical judgment, the patient was provided with a 7-day prescription for opioid medication at 30 MED, indicated for treatment of acute pain in the setting of recent surgery. OARRS reportwas run and has demonstrated an appropriate time course. The patient has been provided with counseling pertaining to safe use of opioid medication. Ambulate with c collar in place Follow up with surgeon in 2 weeks Follow up with Dr. Nichols on Tuesday February 27, 2024 in wound clinic documented in this [facility] Work Phone: [phone]) 811-878812-14-2024 History of Present illness Narrative* FREDO Ling - 02/26/2024 8:36 AM EST Images from the original note were not included. DAILY PROGRESS NOTE POD: 2 C5-6, C6-7 Anterior Cervical Decompression and Fusion Patient doing well Visit Vitals BP (!) 137/103 Pulse 67 Temp 36.5 C (97.7 F) Resp 18 Temp (24hrs), Av.6 C (97.8 F), Min:36.5 C (97.7 F), Max:36.6 C (97.9 F) Pain Control good No chest pain or shortness of breath. No calf pain Exam: Extremity shows neuro vascular status intact. Flexion and extension intact on extremity. Calves soft and non-tender without evidence of DVT. Patient has good bilateral upper and lower extremity strength and sensation 5/5. He reports that the numbness has improved to bilateral hands and fingers and feels that his legs still feel weak but left leg seems to be improving. Surgical dressing CDI HANK drain removed yesterday without complication Labs reviewed: Recent Results (from the past 24 hours) CBC Collection Time: 02/26/24 3:50 AM Result Value Ref Range WBC 9.6 4.4 - 11.3 x10*3/uL nRBC 0.0 0.0 - 0.0 /100 WBCs RBC 4.15 (L) 4.50 - 5.90 x10*6/uL Hemoglobin 13.2 (L) 13.5 - 17.5 g/dL Hematocrit 40.5 (L) 41.0 - 52.0 % MCV 98 80 - 100 fL MCH 31.8 26.0 - 34.0 pg MCHC 32.6 32.0 - 36.0 g/dL RDW 11.9 11.5 - 14.5 % Platelets 267 150 - 450 x10*3/uL Basic metabolic panel Collection Time: 02/26/24 3:50 AM Result Value Ref Range Glucose 124 (H) 74 - 99 mg/dL Sodium 138 136 - 145 mmol/L Potassium 4.2 3.5 - 5.3 mmol/L Chloride 102 98 - 107 mmol/L Bicarbonate 30 21 - 32 mmol/L Anion Gap 10 10 - 20 mmol/L Urea Nitrogen 11 6 - 23 mg/dL Creatinine 1.04 0.50 - 1.30 mg/dL eGFR >90 >60 mL/min/1.73m*2 Calcium 8.9 8.6 - 10.3 mg/dL I&O I/O last 3 completed shifts: In: 958.3 (11.4 mL/kg) [I.V.:508.3 (6.1 mL/kg); IV Piggyback:450] Out: 1300 (15.5 mL/kg) [Urine:1250 (0.4 mL/kg/hr); Drains:50] Weight: 83.8 kg Assessment: Acute postoperative pain: Reports mild to moderate pain described as incisional pain to right anterior neck. Exacerbated by movement, relieved by rest ice and pain medication. Continue current pain management. Plan: Discharge to home today PT/OT: ambulate with c collar in place Follow up in two weeks Antibiotics per ID FREDO Ling 02/26/2024 8:36 AM * Henrietta Mack OT - 02/25/2024 12:45 PM EST Occupational Therapy Evaluation / Treatment Patient Name: Harman Jamil Department: [facility] Room: [facility]/602-A Today's Date: 02/25/2024 Time Calculation Start Time: 925 Stop Time: 952 Time Calculation (min): 27 min Assessment: Pt s/p spinal surgery with decreased knowledge of spinal precautions and decreased safety awarenesslimiting self care performance. OT treatment completed with patient education and application to self care tasks. Evaluation/Treatment Tolerance: Patient tolerated treatment well Medical Staff Made Aware: Yes End of Session Communication: Bedside nurse End of Session Patient Position: Bed, 3 rail up, Alarm off, not on at start of session OT Assessment Results: Decreased safe judgment during ADL Plan: OT eval and treatment / education completed. No further skilled OT indicated at this time. Pt verbalizes confidence returning home and resuming self care tasks. OT Discharge Recommendations: No further acute OT Equipment Recommended upon Discharge: Bedside commode OT - OK to Discharge: Yes Subjective Current Problem: 1. Spinal stenosis 2. Spinal stenosis, cervical region Case Request Operating Room: C5-6, C6-7 Anterior Cervical Decompression and Fusion Case Request Operating Room: C5-6, C6-7 Anterior Cervical Decompression and Fusion Operative Images Operative Images acetaminophen (Tylenol) 325 mg tablet cyclobenzaprine (Flexeril) 10 mg tablet oxyCODONE (Roxicodone) 5 mg immediate release tablet 3. Abscess of axilla, left sulfamethoxazole-trimethoprim (Bactrim DS) 800-160 mg tablet CANCELED: Referral to Home Health General: General Reason for Referral: Decline in self care performance; s/p S/P C5-6/C6-7 decompression /fusion 02/24/24. Referred By: OT/PT [place] 02/23 Past Medical History Relevant to Rehab: ADHD, HLD pre-DM, lumbar herniation. Family/Caregiver Present: No Co-Treatment: PT Co-Treatment Reason: to maxmize pt safety Prior to Session Communication: Bedside nurse Patient Position Received: Bed, 3 rail up, Alarm off, not on at start of session General Comment: pt is a 43 yo male came in on 02/22/24 with reports of progression of weakness andinability to use UEs L greater than R. pt also had abcess under L axilla.which was drained. pt thenunderwent C5-6 / C6-7 decompression and fusion . pt in C - collar at all times. spinal precautions. test/ labs : CT chest 02/22/24 multiple abscesses L axilla/ cellulitis . Precautions: Medical Precautions: Fall precautions Post-Surgical Precautions: Spinal precautions (cervical precautions) Braces Applied: C -collar Precautions Comment: poor knowledge of precautions; education completed with multiple cues for application to ADLs. Pain: Pain Assessment Pain Assessment: 0-10 0-10 (Numeric) Pain Score: 4 Pain Type: Acute pain, Surgical pain Pain Location: (generalized from neck to flank to UE/ LE pain.) Objective Cognition: Arousal/Alertness: Appropriate responses to stimuli Orientation Level: Oriented X4 Following Commands: Follows multistep commands with repetition Safety Judgment: Decreased awareness of need for safety precautions Problem Solving: Assistance required to implement solutions Cognition Comments: pt with poor safety awareness and highly impulsive; high fall risk; pt reports ADHD and does not talk to a lot of people at baseline; reports increased anxiety with hospitalization and multiple caregivers in and out of his room. Insight: Mild Impulsive: Severely Processing Speed: Within funtional limits Home Living: Home Living Comments: pt lives in his nieces basement. 3 steps with rail to enter home. 10 steps with HR down to his room. 15 steps with HR up to bathroom and shower. pt has a tub/shower, no equipment. Prior Function: Prior Function Comments: pt reports being IND with mobility/adls and iadls. Pt reports limited assist from family and he has to take care of himself. Reports difficulty at times climbing stairs and issues with incontinence over past month; has used a bucket for toileting on basement level; reports he does not have money for BSC/DME; reports meals dry goods eating in basement but has to be careful with the bugs; has had 3 falls in last [address] had been working. Reports he has been smoking but doctor told him he cannot smoke for 3 months and states he will continue with marijuana and gummies as those help me a lot. ADL: Equipment: (denies at home) Eating Assistance: Independent Grooming Assistance: Modified independent (Device) Bathing Assistance: Modified independent (Device) (sponge bathing) UE Dressing Assistance: Modified independent (Device) LE Dressing Assistance: Modified independent (Device) LE Dressing Deficit: (good reach BLEs) Toileting Assistance with Device: Modified independent Functional Assistance: Modified independent Functional Deficit: Supervision/safety Skilled BADL Treatment / Intervention BADL process / adaptation training Safety deficit modifications Compensatory training Progress in BADL Status Improvement noted Modified independence level Use of compensatory strategies Activity Tolerance: Endurance: Endurance does not limit participation in activity Bed Mobility/Transfers: Bed Mobility Bed Mobility: Yes Bed Mobility 1 Bed Mobility 1: Supine to sitting, Sitting to supine Level of Assistance 1: Modified independent Transfers Transfer: Yes Transfer 1 Transfer From 1: Bed to, Toilet to Technique 1: Sit to stand, Stand to sit Transfer Device 1: (without AD) Transfer Level of Assistance 1: Modified independent Trials/Comments 1: cues for safety Functional Mobility: Mod I with cues for safety Sitting Balance: Static Sitting Balance Static Sitting-Comment/Number of Minutes: G Dynamic Sitting Balance Dynamic Sitting-Comments: G Standing Balance: Static Standing Balance Static Standing-Comment/Number of Minutes: G Dynamic Standing Balance Dynamic Standing-Comments: F Sensation: Sensation Comment: pt reports improving sensation BUE; diminished along ulnar n distribution R>L; intact to light touch. 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 Perception: Inattention/Neglect: Appears intact Coordination: Movements are Fluid and Coordinated: Yes Hand Function: Gross Grasp: Functional Coordination: Functional Outcome Measures:[facility] Daily Activity Putting on and taking off regular lower body clothing: None Bathing (including washing, rinsing, drying): None Putting on and taking off regular upper body clothing: None Toileting, which includes using toilet, bedpan or urinal: None Taking care of personal grooming such as brushing teeth: None Eating Meals: None Daily Activity - Total Score: 24 Education Documentation Body Mechanics, taught by Henrietta Mack OT at 02/25/2024 12:35 PM. Learner: Patient Readiness: Acceptance Method: Explanation Response: Verbalizes Understanding, Demonstrated Understanding Precautions, taught by Henrietta Mack OT at 02/25/2024 12:35 PM. Learner: Patient Readiness: Acceptance Method: Explanation Response: Verbalizes Understanding, Demonstrated Understanding ADL Training, including DME, taught by Henrietta Mack OT at 02/25/2024 12:35 PM. Learner: Patient Readiness: Acceptance Method: Explanation Response: Verbalizes Understanding, Demonstrated Understanding Goals: Pt goal: to go home * Jewels Nolan APRN-MINA - 02/25/2024 12:00 PM EST Harman Jamil is a 43 y.o. male on day 3 of admission presenting with Spinal stenosis, cervical region. Subjective Patient examined and seen. Alert and oriented x3, resting comfortably. Patient denies chest pain, shortness of breath, palpitations, abdominal pain, fever or chills. Patient is agreeable to go home when cleared. Reports support system is intact. Objective Last Recorded Vitals BP 116/79 Pulse 97 Temp 36.2 C (97.2 F) (Temporal) Resp 18 Wt 83.8 kg (184 lb 11.2 oz) SpO2 98% Intake/Output last 3 Shifts: Intake/Output Summary (Last 24 hours) at 02/25/2024 1452 Last data filed at 02/25/2024 0900 Gross per 24 hour Intake 1658.22 ml Output 900 ml Net 758.22 ml Admission Weight Weight: 83.8 kg (184 lb 11.2 oz) (02/22/24 2228) Daily Weight 02/23/24 : 83.8 kg (184 lb 11.2 oz) Image Results Operative Images Please see OpNote on Notes tab for findings. Physical Exam Constitutional: Well developed, awake/alert/oriented x3, , cooperative Head/Neck: Neck supple, anterior incision well approximated, brace in place Respiratory/Thorax: Patent airways, normal breath sounds with good chest expansion, thorax symmetric Cardiovascular: Regular, rate and rhythm, no murmurs, 2+ equal pulses of the extremities, normal S 1and S 2 Extremities: normal extremities, no contusions or wounds seen , generalized weakness and numbness appreciated Skin: warm, dry, intact except to left axilla with CDI Neurological: alert/oriented x 3, speech clear, Psychiatric: appropriate mood and behavior Relevant Results Scheduled medications acetaminophen, 650 mg, oral, q6h oxygen, , inhalation, Continuous - 02/gases polyethylene glycol, 17 g, oral, Daily sulfamethoxazole-trimethoprim, 1 tablet, oral, q12h MYRA Continuous medications sodium chloride 0.9%, 100 mL/hr, Last Rate: 100 mL/hr (02/24/24 2304) PRN medications PRN medications: ALPRAZolam, cyclobenzaprine, dextrose, glucagon, lubricating eye drops, morphine, naloxone, ondansetron OR ondansetron, oxyCODONE, oxyCODONE, oxyCODONE, oxyCODONE, oxyCODONE-acetaminophen, promethazine Results for orders placed or performed during the hospital encounter of 02/22/24 (from the past 24 hours) Vancomycin Result Value Ref Range Vancomycin 13.7 5.0 - 20.0 ug/mL CBC Result Value Ref Range WBC 15.5 (H) 4.4 - 11.3 x10*3/uL nRBC 0.0 0.0 - 0.0 /100 WBCs RBC 4.05 (L) 4.50 - 5.90 x10*6/uL Hemoglobin 13.1 (L) 13.5 - 17.5 g/dL Hematocrit 38.4 (L) 41.0 - 52.0 % MCV 95 80 - 100 fL MCH 32.3 26.0 - 34.0 pg MCHC 34.1 32.0 - 36.0 g/dL RDW 11.5 11.5 - 14.5 % Platelets 261 150 - 450 x10*3/uL Basic metabolic panel Result Value Ref Range Glucose 176 (H) 74 - 99 mg/dL Sodium 134 (L) 136 - 145 mmol/L Potassium 4.0 3.5 - 5.3 mmol/L Chloride 99 98 - 107 mmol/L Bicarbonate 25 21 - 32 mmol/L Anion Gap 14 10 - 20 mmol/L Urea Nitrogen 17 6 - 23 mg/dL Creatinine 1.15 0.50 - 1.30 mg/dL eGFR 81 >60 mL/min/1.73m*2 Calcium 8.7 8.6 - 10.3 mg/dL Assessment/Plan #C5-6 and C6-7 anterior cervical decompression and fusion - direct admission from [facility] in [place] - Progressive neurovascular changes noted per primary team HPI - PT/OT - Will defer the etiology of infection to specialist team - ID, plastics and Orthopedics S/P C5-6 and C6-7 anterior cervical decompression and fusion decompressing centrally and bilateral foraminally. - tolerated procedure well #Multiple Left Axilla Abscess - consult ID - appreciate recs - obtained BC x2 negative - obtain tissue/wound culture - Abundant Methicillin Resistant Staphylococcus aureus (MRSA) Abnormal - CT scan ordered - multiple axilla abscess / drained tolerated well - consult - plastic surgery - Dr Nichols - I&D- tolerated well 02/22 - CT showed pulmonary nodules - will need to follow up with pulmonology outpatient - VANCO and ZOSYN started for now - pending cultures and ID recommendations Nicotine Dependence - Smoking cessation education given - offered replacement - declined Thank you for consult MEDICIINE TO SIGN OFF Call for acute needs Time spent 36 minutes obtaining labs, imaging, recommendations, interview, assessment, examination,medication review/ordering, and EMR review. Plan of care was discussed extensively with patient, RN and Primary Team. Patient verbalized understanding through teach back method. All questions and concerns addressed upon examination. Of note, this documentation is completed using the [employer]Wow[employer] Dictation system (voice recognition software). There may be spelling and/or grammatical errors that were not corrected prior to final submission. FREDO Hairston * Terry Aguilera PT - 02/25/2024 11:23 AM EST Physical Therapy Physical Therapy Evaluation Patient Name: Harman Jamil Today's Date: 02/25/2024 Time Calculation Start Time: 925 Stop Time: 944 Time Calculation (min): 19 min 602/602-A Assessment/Plan PT Assessment Assessment Comment: PT eval only pt IND with mobility /gait . pt educated on precautions and safetywith mobility . anxious behaviors / impulsive pt ed on moving slowly for safety . no further PT needs. End of Session Patient Position: Bed, 3 rail up, Alarm off, not on at start of session IP OR SWING BED PT PLAN Inpatient or Swing Bed: Inpatient PT Plan PT Plan: PT Eval only PT Frequency: PT eval only PT Discharge Recommendations: No further acute PT PT Recommended Transfer Status: Independent PT - OK to Discharge: Yes (once medically ready for discharge to next level of care.) Subjective Current Problem: 1. Spinal stenosis 2. Spinal stenosis, cervical region Case Request Operating Room: C5-6, C6-7 Anterior Cervical Decompression and Fusion Case Request Operating Room: C5-6, C6-7 Anterior Cervical Decompression and Fusion Operative Images Operative Images acetaminophen (Tylenol) 325 mg tablet cyclobenzaprine (Flexeril) 10 mg tablet oxyCODONE (Roxicodone) 5 mg immediate release tablet 3. Abscess of axilla, left sulfamethoxazole-trimethoprim (Bactrim DS) 800-160 mg tablet CANCELED: Referral to Home Health General Visit Information: General Reason for Referral: S/P C5-6/C6-7 decompression /fusion Referred By: OT/PT [place] 02/23 Past Medical History Relevant to Rehab: HLD pre-DM, lumbar herniation. Co-Treatment: OT Co-Treatment Reason: to maxmize pt safety Prior to Session Communication: Bedside nurse (cleared to see for therapy eval) Patient Position Received: Bed, 3 rail up, Alarm off, not on at start of session (pt has cervical collar and IV) General Comment: pt is a 43 yo male came in on 02/21 with reports of progression of weakness and inability to use UEs L greater than R. pt also had abcess under L axilla.which were drained. pt then under went C5-6 / C6-7 decompression and fusion . pt in C - collar at all times. spinal precautions. test/ labs : CT chest 02/21 multiple abscesses L axilla/ cellulitis . Home Living: Home Living Home Living Comments: pt lives in his nieces basement. 3 steps with rail to enter home. 10 steps with HR down to his room. 15 steps with HR up to bathroom and shower. pt has a tub/shower no equipment. Prior Level of Function: Prior Function Per Pt/Caregiver Report Prior Function Comments: pt reports being IND with mobility/adls and iadls. has had 3 falls in last3 months. doesnt drive . had been working. Precautions: Precautions Medical Precautions: Fall precautions Post-Surgical Precautions: Spinal precautions (cervical precautions) Braces Applied: C -collar Objective Pain: Pain Assessment Pain Assessment: 0-10 0-10 (Numeric) Pain Score: 4 Pain Type: Acute pain, Surgical pain Pain Location: Neck Cognition: Cognition Overall Cognitive Status: Within Functional Limits (impulsive . anxious. pt reports ADHD. difficulty following commands.) General Assessments: Activity Tolerance Endurance: Endurance does not limit participation in activity Sensation Sensation Comment: decreased Sensation BLEs R greater than L Strength Strength Comments: BLE 5/5 Coordination Movements are Fluid and Coordinated: Yes Static Sitting Balance Static Sitting-Comment/Number of Minutes: good Dynamic Sitting Balance Dynamic Sitting-Comments: good Static Standing Balance Static Standing-Comment/Number of Minutes: good Dynamic Standing Balance Dynamic Standing-Comments: good Functional Assessments: Bed Mobility Bed Mobility: (IND in and out of bed) Transfers Transfer: (IND no A/D impulsive with movement) Ambulation/Gait Training Ambulation/Gait Training Performed: (IND 200ft no A/D impulsive ed on slowing down for safety) Extremity/Trunk Assessments: RLE RLE : Within Functional Limits LLE LLE : Within Functional Limits Outcome Measures: [facility] Basic Mobility Turning from your back to your side while in a flat bed without using bedrails: None Moving from lying on your back to sitting on the side of a flat bed without using bedrails: None Moving to and from bed to chair (including a wheelchair): None Standing up from a chair using your arms (e.g. wheelchair or bedside chair): None To walk in hospital room: None Climbing 3-5 steps with railing: None Basic Mobility - Total Score: 24 * Adore Garg RN - 02/25/2024 10:40 AM EST 02/25/24 1039 Discharge Planning Home or Post Acute Services None Expected Discharge Disposition Home Pt is s/p POD #1 C5-6 and C6-7 anterior cervical decompression fusion with Dr. Foster. Pt has cervical brace on. Per STEAM CONDITIONER OPERATOR anticipate Wednesday DC on Oral Bactrim x 10 days, follow up with Dr. Nichols on Wednesday. Pt had bedside I & D for 3 left axillary abscesses which is currently packed, ordereddaily wound dressings. Pt refuses HHC, states can not have HHC at his nieces in [facility], and plans to go to his moms in [place] for only a couple days and come back to [place]. Pt declines any needs. STEAM CONDITIONER OPERATOR notified and will cancel home care orders. [facility] has made pt appt with Dr. Nichols Wednesday morning at 9:30 so pt can call insurance [employer] today to set up transportation for Wednesday appt. No further DC needs identified at present time. * Wolfgang Childers APRN-MINA - 02/25/2024 10:30 AM EST Plan for oral bactrim BID for 10 days per ID. Patient can discharge tomorrow from their standpoint as long as his blood counts are stable. Dr. Nichols onboard with discharge and would like to see patient Wednesday in the wound care clinic. Will continue daily dressing changes per Dr. Nichols order. Called wound care clinic to schedule appointment on Wednesday, patient is scheduled 02/28/24 at 9:30 am. Patient is to bring insurance card, photo ID, and current list of medications to this appointment. Patient has been updated on appointment time and required documents and is reaching out to [facility] for transportation. * Sowmya Hernandez PharmD - 02/25/2024 10:17 AM EST Vancomycin Dosing by Pharmacy- Cessation of Therapy Consult to pharmacy for vancomycin dosing has been discontinued by the prescriber, pharmacy will sign off at this time. Please call pharmacy if there are further questions or re-enter a consult if vancomycin is resumed. Sowmya Hernandez, PharmD * Jeff Nichols MD - 02/25/2024 8:03 AM EST Plastic Surgery Note Afebrile, vital signs stable Left axillary wounds clean Less swelling and erythema and less tender Impression: Status post incision and drainage with debridement axillary abscesses left side Continue current dressing changes * FREDO Ling - 02/25/2024 7:41 AM EST Images from the original note were not included. DAILY PROGRESS NOTE POD: 1 C5-6, C6-7 Anterior Cervical Decompression and Fusion Patient doing well Visit Vitals BP 116/79 Pulse 97 Temp 36.2 C (97.2 F) (Temporal) Resp 18 Temp (24hrs), Av.3 C (97.4 F), Min:36 C (96.8 F), Max:36.7 C (98.1 F) Pain Control good No chest pain or shortness of breath. No calf pain Exam: Extremity shows neuro vascular status intact. Flexion and extension intact on extremity. Calves soft and non-tender without evidence of DVT. Patient has good bilateral upper and lower extremity strength and sensation 5/5. He reports that the numbness has improved to bilateral hands and fingers and feels that his legs still feel weak but left leg seems to be improving. HANK drain with minimal drainage total of 15 ml of serosang drainage and will be discontinued this am. Labs reviewed: Recent Results (from the past 24 hours) Basic Metabolic Panel Collection Time: 02/24/24 9:33 AM Result Value Ref Range Glucose 108 (H) 74 - 99 mg/dL Sodium 139 136 - 145 mmol/L Potassium 3.9 3.5 - 5.3 mmol/L Chloride 104 98 - 107 mmol/L Bicarbonate 29 21 - 32 mmol/L Anion Gap 10 10 - 20 mmol/L Urea Nitrogen 13 6 - 23 mg/dL Creatinine 1.17 0.50 - 1.30 mg/dL eGFR 80 >60 mL/min/1.73m*2 Calcium 8.8 8.6 - 10.3 mg/dL SST TOP Collection Time: 02/24/24 9:33 AM Result Value Ref Range Extra Tube Hold for add-ons. CBC Collection Time: 02/24/24 9:34 AM Result Value Ref Range WBC 7.5 4.4 - 11.3 x10*3/uL nRBC 0.0 0.0 - 0.0 /100 WBCs RBC 4.15 (L) 4.50 - 5.90 x10*6/uL Hemoglobin 13.3 (L) 13.5 - 17.5 g/dL Hematocrit 40.2 (L) 41.0 - 52.0 % MCV 97 80 - 100 fL MCH 32.0 26.0 - 34.0 pg MCHC 33.1 32.0 - 36.0 g/dL RDW 11.6 11.5 - 14.5 % Platelets 235 150 - 450 x10*3/uL Vancomycin Collection Time: 02/25/24 4:32 AM Result Value Ref Range Vancomycin 13.7 5.0 - 20.0 ug/mL CBC Collection Time: 02/25/24 4:32 AM Result Value Ref Range WBC 15.5 (H) 4.4 - 11.3 x10*3/uL nRBC 0.0 0.0 - 0.0 /100 WBCs RBC 4.05 (L) 4.50 - 5.90 x10*6/uL Hemoglobin 13.1 (L) 13.5 - 17.5 g/dL Hematocrit 38.4 (L) 41.0 - 52.0 % MCV 95 80 - 100 fL MCH 32.3 26.0 - 34.0 pg MCHC 34.1 32.0 - 36.0 g/dL RDW 11.5 11.5 - 14.5 % Platelets 261 150 - 450 x10*3/uL Basic metabolic panel Collection Time: 02/25/24 4:32 AM Result Value Ref Range Glucose 176 (H) 74 - 99 mg/dL Sodium 134 (L) 136 - 145 mmol/L Potassium 4.0 3.5 - 5.3 mmol/L Chloride 99 98 - 107 mmol/L Bicarbonate 25 21 - 32 mmol/L Anion Gap 14 10 - 20 mmol/L Urea Nitrogen 17 6 - 23 mg/dL Creatinine 1.15 0.50 - 1.30 mg/dL eGFR 81 >60 mL/min/1.73m*2 Calcium 8.7 8.6 - 10.3 mg/dL I&O I/O last 3 completed shifts: In: 3008.2 (35.9 mL/kg) [P.O.:600; I.V.:608.2 (7.3 mL/kg); IV Piggyback:1800] Out: 890 (10.6 mL/kg) [Urine:850 (0.3 mL/kg/hr); Drains:40] Weight: 83.8 kg Assessment: Acute postoperative pain: Reports mild to moderate pain described as incisional pain to right anterior neck. Exacerbated by movement, relieved by rest ice and pain medication. Continue current pain management. Plan: Continue postoperative course Remove HANK drain from right anterior neck apply 2x2 and tegaderm PT/OT: ambulate with pt, must wear neck brace as directed Continue pain control Pending final culture results for atb choice by ID Continue dressing changes to left axilla per Dr. Nichols Discharge planning: TBD. SW and TCC following. FREDO Ling 02/25/2024 7:41 AM * Lennie Del Castillo Jesica, [facility] - 02/25/2024 6:29 AM EST Vancomycin Dosing by Pharmacy- FOLLOW UP Harman Jamil is a 43 y.o. year old male who Pharmacy has been consulted for vancomycin dosing forcellulitis, skin and soft tissue. Based on the patient's indication and renal status this patient is being dosed based on a goal AUC of 400-600. Renal function is currently stable. Current vancomycin dose: 1000 mg given every 12 hours Estimated vancomycin AUC on current dose: 381 mg/L.hr Visit Vitals BP 116/79 Pulse 97 Temp 36.2 C (97.2 F) (Temporal) Resp 18 Lab Results Component Value Date CREATININE 1.15 02/25/2024 CREATININE 1.17 02/24/2024 CREATININE 1.04 02/22/2024 CREATININE 1.03 09/28/2017 Patient weight is as follows: Vitals: 02/23/24 0223 Weight: 83.8 kg (184 lb 11.2 oz) Cultures: Susceptibility data for the encounter in last 14 days. Collected Specimen Info Organism 02/23/24 Tissue/Biopsy from Wound/Tissue Staphylococcus aureus I/O last 3 completed shifts: In: 2049.9 (24.5 mL/kg) [P.O.:600; I.V.:99.9 (1.2 mL/kg); IV Piggyback:1350] Out: - (0 mL/kg) Weight: 83.8 kg I/O during current shift: I/O this shift: In: 958.3 [I.V.:508.3; IV Piggyback:450] Out: 890 [Urine:850; Drains:40] Temp (24hrs), Av.3 C (97.3 F), Min:36 C (96.8 F), Max:36.7 C (98.1 F) Assessment/Plan Below goal AUC but left dose as 1000mg q12h because a dose was skipped due to patient going to surgery. This dosing regimen is predicted by [employer] to result in the following pharmacokinetic parameters: Regimen: 1000 mg IV every 12 hours. Start time: 01:02 on 02/26/2024 Exposure target: AUC24 (range)400-600 mg/L.hr [id number]: 381 mg/L.hr AUC24,ss: 409 mg/L.hr Probability of AUC24 > 400: 55 % Ctrough,ss: 11.2 mg/L Probability of Ctrough,ss > 20: 1 % The next level will be obtained on 02/25 at 0500. May be obtained sooner if clinically indicated. Will continue to monitor renal function daily while on vancomycin and order serum creatinine at least every 48 hours if not already ordered. Follow for continued vancomycin needs, clinical response, and signs/symptoms of toxicity. Lennie Mooney RPh * Karli Pena DO - 02/24/2024 12:06 PM EST Infectious Disease Progress Note 02/24/2024 Patient is a followup regarding left axillary abscesses Now status post I&D Prelim cultures gram-positive cocci still pending final result Subjectively, no new complaints at this time. Lab Results Component Value Date WBC 7.5 02/24/2024 HGB 13.3 (L) 02/24/2024 HCT 40.2 (L) 02/24/2024 MCV 97 02/24/2024 PLT 235 02/24/2024 Lab Results Component Value Date GLUCOSE 108 (H) 02/24/2024 CALCIUM 8.8 02/24/2024 NA 139 02/24/2024 K 3.9 02/24/2024 CO2 29 02/24/2024 CL 104 02/24/2024 BUN 13 02/24/2024 CREATININE 1.17 02/24/2024 WBC trends are being monitored. Antibiotic doses are being adjusted per most recent renal labs. Vitals: 02/24/24 0300 BP: (!) 136/93 Pulse: 54 Resp: 18 Temp: 36.4 C (97.5 F) SpO2: 98% Patient is awake and alert NAD Neck supple Heart S1S2 Chest: Equal expansion, bilaterally clear to auscultation Abdomen: soft, ND, NTTP, no guarding Left axilla with bandage, status post I&D, packing in place, swelling coming down Extrem: no pain to palpation Skin: no rashes, no diaphoresis Neuro: ASSISTANT DRAFTER intact Affect appropriate and patient is interactive Patient Active Problem List Diagnosis Herniated nucleus pulposus, L4-5 Hyperlipidemia Overweight Paresthesia of upper extremity Prediabetes Sciatica Shoulder pain Vitamin D deficiency Spinal stenosis, cervical region Spinal stenosis Blood cultures negative ASSESSMENT: Left axillary abscess status, now status post I&D. Cultures pending with prelim gram-positive cocci in clusters Right side mid back pain, right knee and neck pain. 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 Will start to de-escalate and direct with final culture result Imaging and labs were reviewed per medical records and any ID pertinent labs were also addressed Time spent before, during and after care today, including coordination of care >40 min Karli Pena DO * Adore Garg RN - 02/24/2024 10:14 AM EST 02/24/24 1014 Discharge Planning Home or Post Acute Services In home services;Post acute facilities (Rehab/SNF/etc) Per rounding report with Orthopedics team,Dr. Foster taking pt to OR today for surgery C5-6, C 6-7 anterior cervical decompression and fusion. Pt is s/p bedside I & D and wounds packed with Dr. Nichols, ID also consulted. Pt currently receiving IV Vancomycin and Zosyn, Cultures pending, anticipating PICC and fdc antibiotics. Pt states currently living in basement of niece's home in [facility] in, has had recent problems with legs and control of bowel so hasn't been going in public. Pt unsure of discharge preference, dependent on needs. CT team will monitor case for progression and DC planning. * Jeff Nichols MD - 02/24/2024 6:31 AM EST Plastic Surgery Note Afebrile, vital signs stable Left axilla with swelling down Packing in place Impression: Status post I&D and debridement axillary abscesses Continue current dressing changes * Jewels Nolan, EXERCISE SCIENCE INSTRUCTOR-STEAM CONDITIONER OPERATOR - 02/23/2024 2:02 PM EST Harman Jamil is a 43 y.o. male on day 1 of admission presenting with Spinal stenosis, cervical region. Subjective Patient examined and seen. Alert and oriented x3, resting comfortably. Patient denies chest pain, shortness of breath, palpitations, abdominal pain, fever or chills. States that his left axilla is tender at this time. He is doing well otherwise. RCRI indicator 1 cardiac event calculated at this time with available imaging and history. Patient in usual state of mental health, alert and oriented x4, discussed risks, benefits, alternative treatments with patient. Patient verbalized understanding through teach back method and is agreeable for surgical intervention. Risks and benefits will also be discussed with patient at bedside per orthopedic team. Patient is currently medically stable at this time, procedure is medically necessary despite comorbidites, patient is an acceptable risk for surgery, however, he has infection at the left axilla site that has been drained. Will defer the potential of infectious etiology and surgery to specialists - orthopedics, plastics and Infectious Disease. This may need to be postponed based on theirrecommendations. ECG sinus bradycardia with sinus arrhythmia 49 bpm, QTc 408. Surgical Risk Assessment: Updated Revised Cardiac Risk Index (RCRI): High risk surgery: 0 Ischemic heart disease history: 0 CHF history: 0 TIA/CVA history: 0 Pre-operative treatement with insulin: 0 Pre-op creatinine>2.0: 0 0 point = Class I Risk/3.9% 30 day risk of both intra-/post-operative major adverse cardiovascular events including cardiac arrest, NE, arrhythmias, and/or even . Patient appears medically optimized. Re-assess patient post-operatively for hypotension, aspiration, altered mental status, or any otherchange in status from baseline for possible escalation of monitoring in telemetry or ICU management. Post-operative VTE prophylaxis and pain management per surgical service. VTE prophylaxis: SCDs (resume chemoprophylaxis per surgery service) Past Medical History He has a past medical history of Pain in leg, unspecified and Personal history of other diseases ofthe musculoskeletal system and connective tissue. denies any significant cardiac history Surgical History He has a past surgical history that includes Tonsillectomy (09/06/2015). Social History He has no history on file for tobacco use, alcohol use, and drug use. Nicotine dependence - 1/2 ppd/27yrs Occasional THC use No regular alcohol use Family History Family History No family history on file. Denies any significant family history Objective Last Recorded Vitals BP 115/73 Pulse 76 Temp 36.2 C (97.2 F) (Temporal) Resp 18 Wt 83.8 kg (184 lb 11.2 oz) SpO2 93% Intake/Output last 3 Shifts: Intake/Output Summary (Last 24 hours) at 02/23/2024 1402 Last data filed at 02/23/2024 0209 Gross per 24 hour Intake 900 ml Output -- Net 900 ml Admission Weight Weight: 83.8 kg (184 lb 11.2 oz) (02/22/24 2228) Daily Weight 02/23/24 : 83.8 kg (184 lb 11.2 oz) Image Results CT chest w IV contrast Narrative: Interpreted By: Phillip Mojica, STUDY: CT CHEST W IV CONTRAST; 02/22/2024 10:18 pm INDICATION: Signs/Symptoms:multiple abscess to Left armpit. COMPARISON: None. ACCESSION NUMBER(S): [id number] ORDERING CLINICIAN: HALEY YATES TECHNIQUE: Contiguous axial images of the chest and upper abdomen were obtained after the intravenous administration of iodinated contrast. Coronal and sagittal reformatted images were reconstructed from the axial data. FINDINGS: MEDIASTINUM AND LYMPH NODES: The esophageal wall appears within normal limits. Calcified right hilar lymph nodes in keeping with a remote granulomatous infection. No enlarged intrathoracic lymph nodes. There are several mildly enlarged left axillary lymph nodes are reactive to the soft tissue infection in the axilla. No pneumomediastinum. VESSELS: Normal caliber thoracic aorta without dissection. No significant aortic atherosclerosis. HEART: Normal in size. No coronary artery calcifications. No significant pericardial effusion. LUNG, AIRWAYS, AND PLEURA: There is mild paraseptal emphysema. There are calcified right lower lobe in left upper lobe granulomas consistent with remote granulomatous infection. There is an area of scarring in the anterolateral right upper lobe associated with a 0.8 cm x 0.4 cm nodule. Additional 0.4 cm x 0.3 cm nodule in the posterior right lung apex is also noted. No consolidation, pulmonary edema, effusion, or pneumothorax. OSSEOUS STRUCTURES: No acute osseous abnormality. Multilevel disc spur complexes in the thoracic spine, resulting in a greater than mild canal stenosis. CHEST WALL SOFT TISSUES: There are multiple abscesses in the left axilla. The largest measures 2.7 cm x 1.2 cm x 2.1 cm in the anterior aspect the axillary fold. There are 2 smaller abscesses in the upper medial left arm that measure 1 cm x 1.6 cm (more posterior in location) and 0.9 cm x 0.5 cm (slightly more anterior and inferior in location). There is a locoregional inflammatory fat stranding in the left axilla and left medial arm consistent with cellulitis. UPPER ABDOMEN/OTHER: No acute abnormality. Subcentimeter simple exophytic right upper pole renal cyst. Impression: Multiple abscesses in the left axilla. The largest measures 2.7 cm x 1.2 cm x 2.1 cm in the anterior aspect the axillary fold. There are 2 smaller abscesses in the upper medial left arm that measure 1 cm x 1.6 cm (more posterior in location) and 0.9 cm x 0.5 cm (slightly more anterior and inferior in location). Locoregional inflammatory fat stranding in the left axilla and left medial arm consistent with cellulitis. Paraseptal emphysema and a 0.8 cm x 0.4 cm right upper lobe pulmonary nodule with surrounding scarring. Recommend a follow-up CT chest in 6 months to ensure stability. Camilo Henry, et al. Guidelines for Management of Incidental Pulmonary Nodules Detected on CT Images: From the Fleischner Society 2017. Radiology 2017; 284(1): 228-243 MACRO: Incidental Finding: A solid non-calcified pulmonary nodule measuring 6-8 mm . (-YCF-) Instructions: Consider follow up non contrast chest CT at 6-12 months, then consider CT chest at 18-24 months. (Lorenzo Page et al., Guidelines for management of incidental pulmonary nodules detected on CT images: From the Fleischner Society 2017, Radiology. 2017 Sep;284 (1):228-243.) [email or web address] Signed by: Phillip Mojica 02/22/2024 11:09 PM Dictation workstation: [id number] Physical Exam Constitutional: Well developed, awake/alert/oriented x3, , cooperative Eyes: PERRL, EOMI, clear sclera ENMT: mucous membranes moist, no apparent injury, no lesions seen Head/Neck: Neck supple, no apparent injury, thyroid without mass or tenderness Respiratory/Thorax: Patent airways, normal breath sounds with good chest expansion, thorax symmetric Cardiovascular: Regular, rate and rhythm, no murmurs, 2+ equal pulses of the extremities, normal S 1and S 2 Gastrointestinal: Nondistended, soft, non-tender, +BS x 4 quadrants Genitourinary: voiding freely without CVA tenderness or suprabupic tenderness Musculoskeletal: ROM intact, no joint swelling, Extremities: normal extremities, no contusions or wounds seen , generalized weakness and numbness appreciated Skin: warm, dry, intact except to left axilla with CDI Neurological: alert/oriented x 3, speech clear, Psychiatric: appropriate mood and behavior Relevant Results Scheduled medications piperacillin-tazobactam, 3.375 g, intravenous, q8h vancomycin, 1,000 mg, intravenous, q12h Continuous medications PRN medications PRN medications: cyclobenzaprine, oxyCODONE-acetaminophen, vancomycin Results for orders placed or performed during the hospital encounter of 02/22/24 (from the past 24 hours) SST TOP Result Value Ref Range Extra Tube Hold for add-ons. Comprehensive metabolic panel Result Value Ref Range Glucose 100 (H) 74 - 99 mg/dL Sodium 138 136 - 145 mmol/L Potassium 3.9 3.5 - 5.3 mmol/L Chloride 103 98 - 107 mmol/L Bicarbonate 27 21 - 32 mmol/L Anion Gap 12 10 - 20 mmol/L Urea Nitrogen 20 6 - 23 mg/dL Creatinine 1.04 0.50 - 1.30 mg/dL eGFR >90 >60 mL/min/1.73m*2 Calcium 9.2 8.6 - 10.3 mg/dL Albumin 4.4 3.4 - 5.0 g/dL Alkaline Phosphatase 69 33 - 120 U/L Total Protein 7.4 6.4 - 8.2 g/dL AST 11 9 - 39 U/L Bilirubin, Total 0.4 0.0 - 1.2 mg/dL ALT 15 10 - 52 U/L Protime-INR Result Value Ref Range Protime 12.7 9.8 - 12.8 seconds INR 1.1 0.9 - 1.1 C-reactive protein Result Value Ref Range C-Reactive Protein 1.16 (H) <1.00 mg/dL CBC and Auto Differential Result Value Ref Range WBC 13.0 (H) 4.4 - 11.3 x10*3/uL nRBC 0.0 0.0 - 0.0 /100 WBCs RBC 4.44 (L) 4.50 - 5.90 x10*6/uL Hemoglobin 14.3 13.5 - 17.5 g/dL Hematocrit 41.6 41.0 - 52.0 % MCV 94 80 - 100 fL MCH 32.2 26.0 - 34.0 pg MCHC 34.4 32.0 - 36.0 g/dL RDW 11.7 11.5 - 14.5 % Platelets 262 150 - 450 x10*3/uL Neutrophils % 72.5 40.0 - 80.0 % Immature Granulocytes %, Automated 0.5 0.0 - 0.9 % Lymphocytes % 17.7 13.0 - 44.0 % Monocytes % 7.3 2.0 - 10.0 % Eosinophils % 1.6 0.0 - 6.0 % Basophils % 0.4 0.0 - 2.0 % Neutrophils Absolute 9.46 (H) 1.20 - 7.70 x10*3/uL Immature Granulocytes Absolute, Automated 0.06 0.00 - 0.70 x10*3/uL Lymphocytes Absolute 2.31 1.20 - 4.80 x10*3/uL Monocytes Absolute 0.95 0.10 - 1.00 x10*3/uL Eosinophils Absolute 0.21 0.00 - 0.70 x10*3/uL Basophils Absolute 0.05 0.00 - 0.10 x10*3/uL Type and screen Result Value Ref Range ABO TYPE A Rh TYPE POS ANTIBODY SCREEN NEG Sedimentation rate, automated Result Value Ref Range Sedimentation Rate 25 (H) 0 - 15 mm/h Blood Culture Specimen: Peripheral Venipuncture; Blood culture Result Value Ref Range Blood Culture Loaded on Instrument - Culture in progress Blood Culture Specimen: Peripheral Venipuncture; Blood culture Result Value Ref Range Blood Culture Loaded on Instrument - Culture in progress Vancomycin Result Value Ref Range Vancomycin 16.3 5.0 - 20.0 ug/mL Lavender Top Result Value Ref Range Extra Tube Hold for add-ons. Tissue/Wound Culture/Smear Specimen: Wound/Tissue; Tissue/Biopsy Result Value Ref Range Gram Stain (2+) Few Polymorphonuclear leukocytes (A) Gram Stain (2+) Few Gram positive cocci (A) Vancomycin Result Value Ref Range Vancomycin 7.9 5.0 - 20.0 ug/mL Assessment/Plan #C5-6 and C6-7 anterior cervical decompression and fusion - direct admission from [facility] in [place] - Progressive neurovascular changes noted per primary team HPI - PT/OT - Will defer the etiology of infection to specialist team - ID, plastics and Orthopedics #Multiple Left Axilla Abscess - consult ID - appreciate recs - obtained BC x2 - obtain tissue/wound culture - CT scan ordered - multiple axilla abscess / drained tolerated well - consult - plastic surgery - Dr Nichols - possible I&D - tolerated well 02/22 - CT showed pulmonary nodules - will need to follow up with pulmonology outpatient - VANCO and ZOSYN started for now - pending cultures and ID recommendations Nicotine Dependence - Smoking cessation education given - offered replacement - declined Thank you for consult Medicine to continue to follow Call for acute needs Time spent 36 minutes obtaining labs, imaging, recommendations, interview, assessment, examination,medication review/ordering, and EMR review. Plan of care was discussed extensively with patient, RN and Primary Team. Patient verbalized understanding through teach back method. All questions and concerns addressed upon examination. Of note, this documentation is completed using the [employer] Dictation system (voice recognition software). There may be spelling and/or grammatical errors that were not corrected prior to final submission. 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 Yes Type of Animals or Pets Cats Home or Post Acute Services In home services;Post acute facilities (Rehab/SNF/etc) Financial Resource Strain How hard is it for you to pay for the very basics like food, housing, medical care, and heating? Somewhat Housing Stability In the last 12 months, was there a time when you were not able to pay the mortgage or rent on time?N In the past 12 months, how many times have you moved where you were living? 1 At any time in the past 12 months, were you homeless or living in a long-term (including now)? N Transportation Needs In the past 12 months, has lack of transportation kept you from medical appointments or from getting medications? no In the past 12 months, has lack of transportation kept you from meetings, work, or from getting things needed for daily living? No Stroke Family Assessment Stroke Family Assessment Needed No Intensity of Service Intensity of Service >30 min Per rounding report with Orthopedics team, pt was a direct admit for orthopedic surgery C5-6, C 6-7anterior cervical decompression and fusion which has been canceled until further notice due to pt found to have Abscesses Left arm pit. Dr. Nichols consulted and did bedside I & D and wounds packed, ID also consulted. Pt currently receiving IV Vancomycin and Zosyn, Cultures pending, anticipating P ICC and fdc antibiotics. Pt states currently living in basement of niece's home in [place], has had recent problems with legs and control of bowel so hasn't been going in public. Pt unsure of discharge preference, dependent on needs. CT team will monitor case for progression and DC planning. * Korina Lopez PharmD - 02/23/2024 10:17 AM EST Vancomycin Dosing by Pharmacy- FOLLOW UP Harman Jamil is a 43 y.o. year old male who Pharmacy has been consulted for vancomycin dosing forcellulitis, skin and soft tissue. Based on the patient's indication and renal status this patient is being dosed based on a goal AUC of 400-600. Renal function is currently stable. Current vancomycin dose: 1250 mg given every 12 hours Estimated vancomycin AUC on current dose: 608 mg/L.hr Visit Vitals BP 115/73 Pulse 76 Temp 36.2 C (97.2 F) (Temporal) Resp 18 Lab Results Component Value Date CREATININE 1.04 02/22/2024 CREATININE 1.03 09/28/2017 Patient weight is as follows: Vitals: 02/23/24 0223 Weight: 83.8 kg (184 lb 11.2 oz) Cultures: No results found for the encounter in last 14 days. I/O last 3 completed shifts: In: 900 (10.7 mL/kg) [P.O.:600; IV Piggyback:300] Out: - (0 mL/kg) Weight: 83.8 kg I/O during current shift: No intake/output data recorded. Temp (24hrs), Av.3 C (97.4 F), Min:35.6 C (96.1 F), Max:37 C (98.6 F) Assessment/Plan Above goal AUC. Orders placed for new vancomcyin regimen of 1000 mg every 12 hours to begin at 1300. This dosing regimen is predicted by [employer] to result in the following pharmacokinetic parameters: Regimen: 1000 mg IV every 12 hours. Start time: 12:54 on 02/23/2024 Exposure target: AUC24 (range)400-600 mg/L.hr [id number]: 448 mg/L.hr AUC24,ss: 487 mg/L.hr Probability of AUC24 > 400: 78 % Ctrough,ss: 14.3 mg/L Probability of Ctrough,ss > 20: 16 % The next level will be obtained on 02/24 at AM labs. May be obtained sooner if clinically indicated. Will continue to monitor renal function daily while on vancomycin and order serum creatinine at least every 48 hours if not already ordered. Follow for continued vancomycin needs, clinical response, and signs/symptoms of toxicity. Korina Lopez PharmD [facility] Work Phone: 1(395) 808-383512-14-2024 Plan of care note* Care Plan - Rafa Kwan RN - 02/26/2024 6:56 AM EST The patient's goals for the shift include rest and comfort The clinical goals for the shift include Patient will remain safe and HD stable. Pain managed to tolerable level Problem: Pain - Adult Goal: Verbalizes/displays adequate comfort level or baseline comfort level 02/26/2024655 by Rafa Kwan RN Outcome: Progressing 02/25/20242206 by Rafa Kwan RN Flowsheets (Taken 02/25/20242206) Verbalizes/displays adequate comfort level or baseline comfort level: Encourage patient to monitor pain and request assistance Assess pain using appropriate pain scale Administer analgesics based on type and severity of pain and evaluate response Implement non-pharmacological measures as appropriate and evaluate response Consider cultural and social influences on pain and pain management Notify Licensed Independent Practitioner if interventions unsuccessful or patient reports new pain Problem: Safety - Adult Goal: Free from fall injury 02/26/2024655 by Rafa Kwan RN Outcome: Progressing 02/25/20242206 by Rafa Kwan RN Flowsheets (Taken 02/25/20242206) Free from fall injury: Instruct family/caregiver on patient safety Problem: Discharge Planning Goal: Discharge to home or other facility with appropriate resources 02/26/2024655 by Rafa Kwan RN Outcome: Progressing 02/25/20242206 by Rafa Kwan RN Flowsheets (Taken 02/25/20242206) Discharge to home or other facility with appropriate resources: Identify barriers to discharge with patient and caregiver Arrange for needed discharge resources and transportation as appropriate Arrange for interpreters to assist at discharge as needed Identify discharge learning needs (meds, wound care, etc) Refer to discharge planning if patient needs post-hospital services based on physician order or complex needs related to functional status, cognitive ability or social support system Problem: Chronic Conditions and Co-morbidities Goal: Patient's chronic conditions and co-morbidity symptoms are monitored and maintained or improved 02/26/2024655 by Rafa Kwan RN Outcome: Progressing 02/25/20242206 by Rafa Kwan RN Flowsheets (Taken 02/25/20242206) Care Plan - Patient's Chronic Conditions and Co-Morbidity Symptoms are Monitored and Maintained or Improved: Monitor and assess patient's chronic conditions and comorbid symptoms for stability, deterioration,or improvement Collaborate with multidisciplinary team to address chronic and comorbid conditions and prevent exacerbation or deterioration Update acute care plan with appropriate goals if chronic or comorbid symptoms are exacerbated and prevent overall improvement and discharge Patient remained safe, neurologically and HD stable during this shift. However, patient patient displayed high level of nervousness and agitation this morning. [facility]12-13-2024 Plan of care note* Care Plan - Felipe Acuña RN - 02/25/2024 10:43 AM EST Problem: Pain - Adult Goal: Verbalizes/displays adequate comfort level or baseline comfort level Outcome: Progressing Problem: Safety - Adult Goal: Free from fall injury Outcome: Progressing Problem: Discharge Planning Goal: Discharge to home or other facility with appropriate resources Outcome: Progressing Problem: Chronic Conditions and Co-morbidities Goal: Patient's chronic conditions and co-morbidity symptoms are monitored and maintained or improved Outcome: Progressing The patient's goals for the shift include rest and comfort The clinical goals for the shift include Pain management [facility] Work Phone: 1(129) 363-406012-12-2024 Plan of care note* Care Plan - Haley Laboy RN - 02/24/2024 11:05 PM EST The patient's goals for the shift include rest and comfort The clinical goals for the shift include pain management Over the shift, the patient did make progress toward the following goals. Barriers to progression include none. Recommendations to address these barriers include none. 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 Postop diagnosis: Above Procedure:1) C5-6 and C6-7 anterior cervical decompression and fusion decompressing centrally and bilateral foraminally. 2) C5-6 and C6 instrumentation. 3) C5-6 and C6-7 use of structural allograft/biologic bone graft 4) use of operative microscope. Surgeon: Sha Foster M.D. Asst.: None Dev LeosThe physician credentialing assistant was present through the entire case. Given thenature of the disease process and the procedure to be performed a skilled rn surgical was necessary during the case. The credentialing assistant was necessary in order to hold retractors and directly assistin the operation. A certified nuclear medicine technologist was at the back table managing instruments and supplies for the surgical case. Anesthesia: General Blood Loss: Less than 100 cc Complications: None HPI: The patient had neurologic symptoms including upper and lower extremity symptoms, hyperreflexia and inability to walk with a steady gait. See hospital note for details. The patient understand that waiting to do surgery created an increase neurologic risk. He understand that having surgery created an increased infection risk given his axillary abscesses. He completely understood the risks andbenefits of doing and not doing surgery and he wished to proceed with surgery now given his progressive neurologic changes. The patient failed all nonoperative treatment. All the risks, benefits, andpotential complications for operative and nonoperative treatment were discussed at length with the the patient. Risks of operative intervention include, but are not limited to: Anesthesia complications, excessive blood loss, infection, damaged uninjured structures including, but not limited to: Thedural sac, nerve roots, spinal cord, vertebral artery, trachea, esophagus, and carotid artery, blood clots and lack of improvement or worsening of symptoms. These complications could result in ,permanent disability including paralysis, swallowing or speech difficulty, or need for reoperation.The patient completely understood these risks and wished to proceed with operative intervention. Operative implants: NuVasive ACP plate and screws. [employer] 3D printing cages filled with via cell bone graft.. Operative procedure: The patient was wheeled from the preanesthesia care unit to the operating theater. The patient was placed in supine position and all bony prominences were well-padded. For the entire procedure anesthesia maintainined control of the patient's head neck. General anesthesia was induced. A shoulder roll was placed between the patient's shoulder blades. The arms were well-padded and tucked to the patient's side. Tape was used to provide longitudinal traction over the foot of thebed. The head was placed in neutral rotation in an amount of extension that was determined in the preoperative hold area that was comfortable for the patient, and was taped in this position. Next, a needle was taped to the outside of the patient's neck and x-rays were taken to confirm the appropriate skin incision level. The neck was then marked and prepped and draped in a normal sterile fashion. Timeout was performed, site verification marking was verified, and appropriate antibiotic demonstration was confirmed. Next an incision was performed. Dissection was carried down through the skin with a knife and Bovie was used to dissect down through the platysma. Pickups and scissors were used todissect down to expose the interval between the trachea, esophagus and strap muscles in the midlineand the carotid sheath and sternocleidomastoid laterally. Appendiceal retractors were used and at this point the prevertebral fascia overlying the spine was visualized. Peanuts were used to spread the fascia exposing the vertebral bodies and disc and longus coli muscle. A bent spinal needle was inse rted into the C6-7 level. X-rays were taken confirm the appropriate level. Next, using appendiceal hand-held retractors the Bovie was used to lift the soft tissues and longuscoli out to the level of the uncovertebral joints bilaterally from the caudal portion of C5 to the cephalad portion of C7. The Bruce retractor was then placed under the longus coli muscle on bone centered over the C6-7 level. The microscope was then brought in for use. Cloward retractors were used to protect cephalad and caudal and the blades from the Bruce retractor were protecting medially and laterally. A 5 mm round bur was then used to take down the anteriorosteophytes. A knife was used to box cut the disc and a pituitary rongeur was used to remove the annulus. A pituitary rongeur was then used to remove the anterior two thirds of the disc. A [place] pinretractor was then placed to provide distraction of the disc space. O and #2 curettes were then used to take the disc completely off of the cephalad and caudal endplates laterally out to the uncovertebral joints. Curved 6-0 curette was then used to reach behind the cephalad and caudal vertebral bodies. First starting on the patient's right side #2 Kerr[place] was used to perform a foraminotomy decompressing the foramen and removing posterior osteophytes behind the cephalad and caudal vertebral bodies. This decompression was taken across to the contralateral side taking down all posterior osteophytes decompressing centrally and performing a foraminotomy on the contralateral side as well. The central decompression was taken down to full thickness through the posterior longitudinal ligament. this allowed complete central decompression and allowed for reaching underneath the cephalad and caudal vertebral body to ensure there was adequate central decompression of the spinal cord. A matchstickbur was used to square the endplates without violating the full-thickness of the endplates. The wound was irrigated copiously. FloSeal was used for the entire case to maintain hemostasis but no FloSeal was left in the patient. At this point there was no bleeding. [Next, an identical procedure was performed at the C5-6 level. Central and bilateral foraminal decompression was performed as scribed above. Endplate preparation was performed as described above. Hemostasis was maintained as described above. Trialing was performed and a size 7 extra-large cage was found to be appropriate at both levels. The cages were filled with appropriately prepared bone graft and inserted under tension and tension was removed. X-rays were taken to confirm appropriate cage positioning. A plate was then affixed anteriorly and all holes in the plate were hand drilled and filled. The screws were locked into position using the locking device on the plate. X-rays were taken and confirmed appropriate cage positioning as well as plate and screw positioning. At this point there was no bleeding and the wound was irrigated with copious amounts of normal saline. The platysma was closed with running 2-0 Vicryl. The skin was closed with 3-0 Vicryl and 4-0 Monocryl and Steri-Strips. A sterile dressing was applied. The patient was placed into a cervical collar. Spinal cord monitoring was used throughout the entire case and there was no evidence of any spinal cord monitoring abnormal changes. At the conclusion of the case the patient's fingers and toes were pink and warm with brisk capillary refill. The patient tolerated the procedure well. This dictation was created using voice recognition software. If there are any questions about inaccuracies please do not hesitate to contact me. [facility] Work Phone: 1([phone]) 259-304112-12-2024 Plan of care note* Care Plan - Haley Laboy RN - 02/24/2024 1:52 AM EST The patient's goals for the shift include rest and comfort The clinical goals for the shift include pain management Over the shift, the patient did make progress toward the following goals. Barriers to progression include none. Recommendations to address these barriers include none. [facility] Work Phone: 1(330) 317-218712-11-2024 History and physical note* Sha Foster MD - 02/23/2024 10:31 AM EST Chief complaint: Leg and arm weakness History of present illness: Patient has had a rapid progression of clumsiness in his left greater than right arm. Inability to handle things in his left hand. Gait changes where he came into our office yesterday in a wheelchair. Weakness and clumsiness in his legs. He is also having Lhermitte's signs when he brings his head back. No fevers chills nausea vomiting. No bladder changes. Was admitted to the hospital because of his progressive neurologic change and he was severely inhibited bodily function and a threat to himself. Past medical history: Past Medical History: Diagnosis Date Pain in leg, unspecified Leg pain Personal history of other diseases of the musculoskeletal system and connective tissue History of backache Social history: Social History Occupational History Not on file Tobacco Use Smoking status: Every Day Current packs/day: 0.50 Average packs/day: 0.5 packs/day for 27.0 years (13.5 ttl pk-yrs) Types: Cigarettes Start date: 02/22/1997 Smokeless tobacco: Never Substance and Sexual Activity Alcohol use: Not on file Drug use: Not on file Sexual activity: Not on file Family history: No family history on file. Physical exam: Well-nourished, well kept. Good perfusion to the extremities 4. Radial and dorsalis pedis pulses 2+. Capillary refill to all 4 digits brisk. No distal edema x 4. Patient does not want to get out of bed and walk. Neck is tender. He has a weak positive Spurling's to the left but also has a positive Lhermitte sign with extension. Examination of the upper extremities reveals no point tenderness, swelling, or deformity. Range of motion of the shoulders, elbows, wrists, and fingers areall full without crepitance, instability, or exacerbation of pain. Strength is 5/5 throughout except I do get some weakness of biceps and wrist flexion and extension on the left greater than right today. Examination of the lower extremities reveals no point tenderness, swelling, or deformity. Rangeof motion of the hips, knees, and ankles are full without crepitance, instability, or exacerbation of pain. Strength is 5/5 throughout Except I do get some weakness with ankle dorsiflexion bilaterally today. His quads appear a little weak as well bilaterally today. He is hyperreflexic at at C5, C6,C7, L4 and S1 bilaterally. He has a strong positive Jo's Bilaterally. Imaging studies show stenosis at C5-6 and C6-7 with myelomalacia behind the C6-7 level. Assessment: Patient with progressive neurologic changes and myelopathy from stenosis mainly at C6-7but also contributing from C5-6 as he has central stenosis at both levels. He was recently diagnosed with axillary abscesses and treated this morning at the bedside by plastic surgery. This creates bertin difficult situation as the patient is experiencing progressive neurologic deficits to the point where he is having difficulty ambulating but has an infection that was just treated in his left axilla. The infection will increase his risk of having postoperative infection at the surgical site. However infections and cervical ACDF surgeries are quite low. Additionally, the patient is being treated by infectious disease and is on broad-spectrum antibiotics which should also help protect him from any of infection. We have to weigh the risks and benefits of waiting a week or 2 to decompress his cervical spine in the face of the rapid progressive neurologic deficits versus the potential for infection. I discussed this with one of my colleagues in [place] and we both agree that the neurologic symptoms are more pressing and higher risk than the potential of getting an infection which may not even occur at all. We know that the patient is having neurologic changes but we do not know that they will get an infection in the cervical Spine as a result of the surgery. In fact, an infection would be unlikely even in the face of an active abscess in the axilla because the abscess is currently drained and because the patient is on broad- spectrum antibiotics. Plan: We are going to schedule him for tomorrow for a C5-6 and C6-7 anterior cervical decompressionand fusion. Sha Foster M.D. This dictation was created using voice recognition software. If there are any questions about inaccuracies please do not hesitate to contact me. [facility] Work Phone: 1(126) 766-359612-11-2024 History and physical note* Sha Foster MD - 02/23/2024 10:31 AM EST Chief complaint: Leg and arm weakness History of present illness: Patient has had a rapid progression of clumsiness in his left greater than right arm. Inability to handle things in his left hand. Gait changes where he came into our office yesterday in a wheelchair. Weakness and clumsiness in his legs. He is also having Lhermitte's signs when he brings his head back. No fevers chills nausea vomiting. No bladder changes. Was admitted to the hospital because of his progressive neurologic change and he was severely inhibited bodily function and a threat to himself. Past medical history: Past Medical History: Diagnosis Date Pain in leg, unspecified Leg pain Personal history of other diseases of the musculoskeletal system and connective tissue History of backache Social history: Social History Occupational History Not on file Tobacco Use Smoking status: Every Day Current packs/day: 0.50 Average packs/day: 0.5 packs/day for 27.0 years (13.5 ttl pk-yrs) Types: Cigarettes Start date: 02/22/1997 Smokeless tobacco: Never Substance and Sexual Activity Alcohol use: Not on file Drug use: Not on file Sexual activity: Not on file Family history: No family history on file. Physical exam: Well-nourished, well kept. Good perfusion to the extremities 4. Radial and dorsalis pedis pulses 2+. Capillary refill to all 4 digits brisk. No distal edema x 4. Patient does not want to get out of bed and walk. Neck is tender. He has a weak positive Spurling's to the left but also has a positive Lhermitte sign with extension. Examination of the upper extremities reveals no point tenderness, swelling, or deformity. Range of motion of the shoulders, elbows, wrists, and fingers areall full without crepitance, instability, or exacerbation of pain. Strength is 5/5 throughout except I do get some weakness of biceps and wrist flexion and extension on the left greater than right today. Examination of the lower extremities reveals no point tenderness, swelling, or deformity. Rangeof motion of the hips, knees, and ankles are full without crepitance, instability, or exacerbation of pain. Strength is 5/5 throughout Except I do get some weakness with ankle dorsiflexion bilaterally today. His quads appear a little weak as well bilaterally today. He is hyperreflexic at at C5, C6,C7, L4 and S1 bilaterally. He has a strong positive Jo's Bilaterally. Imaging studies show stenosis at C5-6 and C6-7 with myelomalacia behind the C6-7 level. Assessment: Patient with progressive neurologic changes and myelopathy from stenosis mainly at C6-7but also contributing from C5-6 as he has central stenosis at both levels. He was recently diagnosed with axillary abscesses and treated this morning at the bedside by plastic surgery. This creates bertin difficult situation as the patient is experiencing progressive neurologic deficits to the point where he is having difficulty ambulating but has an infection that was just treated in his left axilla. The infection will increase his risk of having postoperative infection at the surgical site. However infections and cervical ACDF surgeries are quite low. Additionally, the patient is being treated by infectious disease and is on broad-spectrum antibiotics which should also help protect him from any of infection. We have to weigh the risks and benefits of waiting a week or 2 to decompress his cervical spine in the face of the rapid progressive neurologic deficits versus the potential for infection. I discussed this with one of my colleagues in [place] and we both agree that the neurologic symptoms are more pressing and higher risk than the potential of getting an infection which may not even occur at all. We know that the patient is having neurologic changes but we do not know that they will get an infection in the cervical Spine as a result of the surgery. In fact, an infection would be unlikely even in the face of an active abscess in the axilla because the abscess is currently drained and because the patient is on broad- spectrum antibiotics. Plan: We are going to schedule him for tomorrow for a C5-6 and C6-7 anterior cervical decompressionand fusion. Sha Foster M.D. This dictation was created using voice recognition software. If there are any questions about inaccuracies please do not hesitate to contact me. documented in this [facility] Work Phone: 1(851) 661-945312-11-2024 Plan of care note* Care Plan - Felipe Acuña RN - 02/23/2024 9:17 AM EST Problem: Pain - Adult Goal: Verbalizes/displays adequate comfort level or baseline comfort level Outcome: Progressing Problem: Safety - Adult Goal: Free from fall injury Outcome: Progressing Problem: Discharge Planning Goal: Discharge to home or other facility with appropriate resources Outcome: Progressing Problem: Chronic Conditions and Co-morbidities Goal: Patient's chronic conditions and co-morbidity symptoms are monitored and maintained or improved Outcome: Progressing The patient's goals for the shift include rest and comfort The clinical goals for the shift include Pain management [facility] Work Phone: 1(692) 100-327612-11-2024 Hospital Discharge instructions* Discharge Instructions* FREDO Hairston - 02/23/2024 8:41 AM EST ##### Please follow up with your PCP regarding these nodules############ Follow up in 1 week. 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 Will send you information infollow up screen Multiple abscesses in the left axilla. The largest measures 2.7 cm x 1.2 cm x 2.1 cm in the anterior aspect the axillary fold. There are 2 smaller abscesses in the upper medial left arm that measure 1 cm x 1.6 cm (more posterior in location) and 0.9 cm x 0.5 cm (slightly more anterior and inferior in location). Locoregional inflammatory fat stranding in the left axilla and left medial arm consistent with cellulitis. Paraseptal emphysema and a 0.8 cm x 0.4 cm right upper lobe pulmonary nodule with surrounding scarring. Recommend a follow-up CT chest in 6 months to ensure stability. Camilo Henry, et al. Guidelines for Management of Incidental Pulmonary Nodules Detected on CT Images * Attachments The following attachments cannot be sent through Care Everywhere. * Hidradenitis suppurativa (Surinamese) documented in this [facility] Work Phone: [phone]) 894-537212-11-2024 Consult note* Jeff Nichols MD - 02/23/2024 8:30 AM EST PLASTIC SURGERY CONSULTATION Reason for consultation: Left axillary abscesses History of present illness: 43-year-old male for planned C5-6 and C6-7 cervical decompression and fusion found to have multipleleft axillary abscesses Past medical history: Bilateral lower extremity pain left greater than right Past surgical history: Tonsillectomy Medications: Zosyn Vancomycin Percocet ALLERGIES: None Social history: Smokes half pack per day, occasional alcohol use THC use Family history: None Review of systems: At least 10 systems reviewed and are otherwise negative except for as noted in the history of present illness PHYSICAL EXAMINATION Height: 6 foot 0 inches weight: 184 pounds Vital signs: Temperature 36.2 pulse 76 blood pressure 115/73 General: Well-developed, male in no acute distress, alert and oriented 3 HEENT: Within normal limits Neck: Supple, no observable masses Lungs: Clear to auscultation Heart: Regular rate and rhythm Abdomen: Soft, nontender Extremities: Full range of motion; left axilla with multiple abscesses and fluctuance Neurological: Grossly within normal limits Procedure note: Using 2% lidocaine with 1-100,000 epinephrine 3 abscesses in the left axilla were locally infiltrated. After obtaining good anesthesia each site was then cleansed and incised with #10scalpel blade. Drainage in the form of serosanguineous drainage was identified except for 1 with purulent drainage which was sent for culture and sensitivity. Necrotic subcutaneous tissue was excisedfrom the wound site. Please note this is an excisional debridement this was done with forceps and scissors. Iodoform packing was then done followed by a heavy bulky dressing. Patient tolerated the procedure well Impression: Multiple abscess left axilla, appears compatible with hidradenitis Recommendation: Incision and drainage with debridement at bedside. Risk and benefits of this procedure discussed with the patient to include but not limited to progressive infection, bleeding, need for additional surgery, damage to deeper structures, loss of function, wound healing issues, need for dressing changes. Discussed with Dr. Foster the need to postpone surgery Will start dressing changes Thank you for the referral. Jeff Nichols MD *These notes are being done using PowWowHR voice recognition technology and may include unintended errors with respect to translation of words, typographical errors or grammar errors which may not havebeen identified prior to finalization of the chart note. [facility] Work Phone: [phone]) [phone] Consult note* Jeff Nichols MD - 02/23/2024 8:30 AM EST PLASTIC SURGERY CONSULTATION Reason for consultation: Left axillary abscesses History of present illness: 43-year-old male for planned C5-6 and C6-7 cervical decompression and fusion found to have multipleleft axillary abscesses Past medical history: Bilateral lower extremity pain left greater than right Past surgical history: Tonsillectomy Medications: Zosyn Vancomycin Percocet ALLERGIES: None Social history: Smokes half pack per day, occasional alcohol use THC use Family history: None Review of systems: At least 10 systems reviewed and are otherwise negative except for as noted in the history of present illness PHYSICAL EXAMINATION Height: 6 foot 0 inches weight: 184 pounds Vital signs: Temperature 36.2 pulse 76 blood pressure 115/73 General: Well-developed, male in no acute distress, alert and oriented 3 HEENT: Within normal limits Neck: Supple, no observable masses Lungs: Clear to auscultation Heart: Regular rate and rhythm Abdomen: Soft, nontender Extremities: Full range of motion; left axilla with multiple abscesses and fluctuance Neurological: Grossly within normal limits Procedure note: Using 2% lidocaine with 1-100,000 epinephrine 3 abscesses in the left axilla were locally infiltrated. After obtaining good anesthesia each site was then cleansed and incised with #10scalpel blade. Drainage in the form of serosanguineous drainage was identified except for 1 with purulent drainage which was sent for culture and sensitivity. Necrotic subcutaneous tissue was excisedfrom the wound site. Please note this is an excisional debridement this was done with forceps and scissors. Iodoform packing was then done followed by a heavy bulky dressing. Patient tolerated the procedure well Impression: Multiple abscess left axilla, appears compatible with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 this encounter [facility] Work Phone: Evaluation note* Diagnosis Sciatica of left side- Primary Sciatica [facility]* Diagnosis Preventative health care- Primary Routine general medical examination at a health care facility Other chronic pain Vitamin D deficiency Attention deficit hyperactivity disorder (ADHD), unspecified ADHD type Hyperlipidemia, unspecified hyperlipidemia type Bipolar affective disorder, remission status unspecified (Multi) Hyperverbal speech documented in this encounter [facility] Work Phone: [phone] note* Diagnosis Acute exacerbation of chronic low back pain- Primary [facility]* Diagnosis Cervical myelopathy- Primary Cervical spondylosis with myelopathy Back pain with radiculopathy documented in this encounter [facility] Work Phone: [phone] note* Diagnosis Back pain with radiculopathy documented in this encounter [facility] Work Phone: [phone] note* Diagnosis Herniated nucleus pulposus, L4-5- Primary Displacement of lumbar intervertebral disc without myelopathy Paresthesia of upper extremity Spinal stenosis, cervical region Spinal stenosis of cervical region Spinal stenosis in cervical region Chronic bilateral low back pain with left-sided sciatica Pain of left lower extremity Weakness of left foot Neurogenic bowel Back pain with radiculopathy Cervical myelopathy Cervical spondylosis with myelopathy Left foot drop Other acquired deformity of ankle and foot documented in this encounter [facility] Work Phone: Evaluation note* Diagnosis Herniated nucleus pulposus, L4-5 Displacement of lumbar intervertebral disc without myelopathy Pain of left lower extremity Weakness of left foot Neurogenic bowel Left foot drop Other acquired deformity of ankle and foot documented in this encounter [facility] Work Phone: [facility] Phone[facility] Work Phone: Hospital Discharge instructions Additional Instructions Follow-up with your primary care provider. Return if feeling worse.[facility] Work Phone: Hospital Discharge instructions Additional Instructions Please be sure to keep your follow-up appointment with your surgeon on 21 May 2023.[facility] Work Phone: Reason for referral (narrative)No reason for referral information availableWOur [facility] Work Phone: Reason for visit Narrative* Imaging (Emergency) - Authorized Specialty Diagnoses / Procedures Referred By Julio Cesar hoffman Referred To Contact Radiology Diagnoses Back pain with radiculopathy Procedures MR thoracic spine wo IV contrast Sha Foster MD [address] [address] Phone: tel: fax: Referral ID Status Reason Start Date Expiration Date Visits Requested Visits Authorized [id number] Authorized Perform Procedure 4 02/07/2025 1 1 [facility] Work Phone: Reason for visit Narrative* Imaging (Emergency) - Authorized Specialty Diagnoses / Procedures Referred By Julio Cesar hoffman Referred To Contact Radiology Diagnoses Back pain with radiculopathy Procedures MR lumbar spine w and wo IV contrast MR lumbar spine w IV contrast Sha Foster MD [address] [facility], [address] [place] [address] Phone: tel: fax: Referral ID Status Reason Start Date Expiration Date Visits Requested Visits Authorized [id number] Authorized Perform Procedure 4 02/07/2025 1 1 [facility] Work Phone: Reguwy for visit Narrative* Imaging (Emergency) - Authorized Specialty Diagnoses / Procedures Referred By Contac t Referred To Contact Radiology Diagnoses Back pain with radiculopathy Procedures MR cervical spine wo IV contrast Sha Foster MD [address] [facility], [address] [place] [address] Phone: tel: fax: Referral ID Status Reason Start Date Expiration Date Visits Requested Visits Authorized [id number] Authorized Perform Procedure 4 02/07/2025 1 1 [facility] Work Phone: reason for visit Narrative* Auth/Cert Specialty Diagnoses / Procedures Referred By Contac t Referred To Contact Diagnoses SPINAL STENOSIS Procedures N/A Sha Foster MD [address] [facility], [address] [place] [address] Phone: tel: fax: [facility] [address] [facility] [place] [address] Referral ID Status Reason Start Date Expiration Date Visits Re quested Visits Authorized [id number] 1 1 [facility] Work Phone: Reushe for visit Narrative* Imaging (Routine) - Authorized Specialty Diagnoses / Procedures Referred By Contac t Referred To Contact Radiology Diagnoses Cervical radiculopathy Procedures XR cervical spine 2-3 views Sha Foster MD [address] [facility], [address] [place] [address] Phone: tel: fax: Referral ID Status Reason Start Date Expiration Date Visits Requested Visits Authorized [id number] Authorized Perform Procedure 4 03/07/2025 1 1 [facility] Work Phone: Reason for visit Narrative* Imaging (Routine) - Authorized Specialty Diagnoses / Procedures Referred By Contac t Referred To Contact Radiology Diagnoses Cervical radiculopathy Procedures XR cervical spine 2-3 views Sha Foster MD [address] [facility], [address] [place] [address] Phone: tel: fax: Referral ID Status Reason Start Date Expiration Date Visits Requested Visits Authorized [id number] Authorized Perform Procedure 06/06/2024 06/06/2025 1 1 [facility] Work Phone: Reason for visit Narrative* Imaging (Routine) - Authorized Specialty Diagnoses / Procedures Referred By Contac t Referred To Contact Radiology Diagnoses Herniated nucleus pulposus, L4-5 Pain of left lower extremity Weakness of left foot Neurogenic bowel Left foot drop Procedures MR lumbar spine wo IV contrast MR lumbar spine wo IV contrast Nighat Griffin MD [address] [facility] [address] [place] [address] Phone: tel: fax: Referral ID Status Reason Start Date Expiration Date Visits Requested Visits Authorized [id number] Authorized Perform Procedure 10/02/2024 10/02/2025 1 1 [facility] Work Phone: Summary Purpose Family History No Family History Records FoundNo Family History Records FoundNo Family History Records FoundNo Family History Records FoundNo Family History Records FoundNo Family History Records FoundNo Family History Records FoundNo Family History Records FoundNo Family History Records FoundNo Family History Records FoundNo Family History Records FoundNo Family History Records Found Advance Directives Advance Directive Response Recorded Date/ Time Living Will No June 15, 2021 8:39pm Power of Clinical Nurse Reviewer No June 15 8:39pm Advance Directive Response Recorded Date/ Time Living Will No August 19, 2021 1 :08pm Power of Clinical Nurse Reviewer No August 19, 2021 1:08pm Advance Directive Response Recorded Date/ Time Living Will No August 20, 2021 4 :43pm Power of Clinical Nurse Reviewer No August 20, 2021 4:43pm Advance Directive Response Recorded Date/ Time Living Will No June 16, 2022 10:19pm Power of Clinical Nurse Reviewer No June 16 10:19pm Advance Directive Response Recorded Date/ Time Living Will No November 09 3:32pm Power of Clinical Nurse Reviewer No November 09, 2 023 3:32pm Advance Directive Response Recorded Date/ Time Living Will No March 09 023 12:29pm Power of Clinical Nurse Reviewer No March 09, 2023 12:29pm Advance Directive Response Recorded Date/ Time Living Will No April 10 4:40pm Power of Clinical Nurse Reviewer No April 10, 2023 4:40pm Advance Directive Response Recorded Date/ Time Living Will No May 18, 2023 3:41pm Power of Clinical Nurse Reviewer No May 17 3:41pm Date Activated Date Inactivated Comments 02/24/2024 5:45 PM Question Answer Comments Plan of Care: Code Status Discussion Completed Decision Maker: Patient Date Activated Date Inactivated Comments 02/24/2024 5:45 PM Question Answer Comments Plan of Care: Code Status Discussion Completed Decision Maker: Patient Healthcare Agents on File Name Relationship Healthcare Agent Relationshi p Communication Sis Rhodes Health Care Agent [id number] (Home) Healthcare Agents on File Name Relationship Healthcare Agent Relationshi p Communication Sis Rhodes Health Care Agent Healthcare Agents on File Name Relationship Healthcare Agent Relationshi p Communication Sis Rhodes Health Care Agent Healthcare Agents on File Name Relationship Healthcare Agent Relationshi p Communication Sis Rhodes Health Care Agent Advance Directive Response Recorded Date/ Time Do you have a Healthcare Power of Clinical Nurse Reviewer? No October 23, 2024 3:38pm Chief Complaint and Reason for Visit Chief Complaint back pain BACK PAIN PAIN OTHER Chief Complaint PAIN OTHER back pain Chief Complaint PAIN OTHER back pain SUICIDAL Chief Complaint Unresponsive Chief Complaint BACK PAIN Chief Complaint BACK PAIN BACK PAIN Chief Complaint BACK PAIN BACK PAIN back injury Chief Complaint Admit Date unresponsive October 23, 2024 3: 27pm Reason for Referral Specialty Diagnoses / Procedures Referred By Contnoemi t Referred To Contact Radiology Diagnoses Lumbar pain Lumbar radiculopathy Procedures MR lumbar spine w and wo IV contrast Sha Foster MD [address] [facility], [address] [place], [place] [id number] Referral ID Status Reason Start Date Expiration Date Visits Requested Visits Authorized [id number] Pending Review Perform Procedure 05/04/2023 05/03/2024 1 1 Specialty Diagnoses / Procedures Referred By Contac t Referred To Contact Physical Therapy Diagnoses Lumbar pain Lumbar radiculopathy Sha Foster MD [address] [facility], [address] [place] [address] Referral ID Status Reason Start Date Expiration Date Visits Requested Visits Authorized [id number] Pending Review Specialty Services Required 05/04/2023 05/03/2024 1 1 Specialty Diagnoses / Procedures Referred By Contac t Referred To Contact Radiology Diagnoses Lumbar pain Procedures XR lumbar spine complete 4+ views Sha Foster MD [address] [facility], [address] [place] [address] Referral ID Status Reason Start Date Expiration Date Visits Requested Visits Authorized [id number] Authorized Perform Procedure 05/04/2023 05/03/2024 1 1 Referral ID Status Reason Start Date Expiration Date Visits Requested Visits Authorized [id number] Pending Review Perform Procedure 12/14/2023 12/13/2024 1 1 Referral ID Status Reason Start Date Expiration Date Visits Requested Visits Authorized [id number] Pending Review Specialty Services Required 12/14/2023 12/13/2024 1 1 Specialty Diagnoses / Procedures Referred By Contac t Referred To Contact Anesthesiology Diagnoses Lumbar pain Lumbar radiculopathy Sha Foster MD [address] [facility], [address] [place] [address] Arielle Reeves MD [address] [address] Referral ID Status Reason Start Date Expiration Date Visits Requested Visits Authorized [id number] Authorized Specialty Services Required 12/14/2023 12/13/2024 1 1 Additional Source Comments (unrecognized sect ion and content) No Status Records FoundNo Status Records FoundNo Status Records FoundNo Status Records FoundNo Status Records FoundNo Status Records FoundNo Status Records FoundNo Status Records FoundNo Status Records FoundNo Status Records FoundNo Status Records FoundNo Status Records Found INFORMATION SOURCE (unrecogn ized section and content) DATE CREATED AUTHOR 10/05/2017 [employer] DATE CREATED AUTHOR AUTHOR'S ORGANIZ ATION 03/02/2018 [facility] DATE CREATED AUTHOR AUTHOR'S ORGANIZ ATION 12/06/2022 [facility] DATE CREATED AUTHOR AUTHOR'S ORGANIZ ATION 02/26/2024 [facility] DATE CREATED AUTHOR AUTHOR'S ORGANIZ ATION 02/29/2024 [facility] DATE CREATED AUTHOR AUTHOR'S ORGANIZ ATION 03/31/2024 [facility] DATE CREATED AUTHOR AUTHOR'S ORGANIZ ATION 06/29/2024 [facility] DATE CREATED AUTHOR AUTHOR'S ORGANIZ ATION 07/19/2024 [facility] DATE CREATED AUTHOR AUTHOR'S ORGANIZ ATION 07/24/2024 [facility] DATE CREATED AUTHOR AUTHOR'S ORGANIZ ATION 10/04/2024 [facility] DATE CREATED AUTHOR AUTHOR'S ORGANIZ ATION 10/16/2024 [facility] DATE CREATED AUTHOR AUTHOR'S ORGANIZ ATION 10/22/2024 [facility] Goals (unrecognized section and content) Goals may be documented in a n alternate sectionGoals may be documented in an alternate sectionGoals may be documented in an alternate sectionGoals may be documented in an alternate sectionGoals may be documented in an alternate sectionGoals may be documented in an alternate sectionGoals may be documented in an alternate sectionGoals may be documented in an alternate sectionGoals may be documented in an alternate section Care Teams (unrecognized sec tion and content) Team Status: Active Member Role Status Dates Dr. Josafat Leonard DO Family Provider Active Dr. Josafat Leonard DO Primary Care Provider Active Team Status: Inactive Member Role Status Dates Dr. Josafat Leonard DO Primary Care Provider Active Dr. Alexis Baca MD Emergency Provider Active Team Status: Inactive Member Role Status Dates Dr. Josafat Leonard DO Primary Care Provider Active Dr. Gerson Perez MD Emergency Provider Active Team Status: Inactive Member Role Status Dates Dr. Josafat Leonard DO Primary Care Provider Active Dr. Gerson Perez MD Attending Provider, Emergency Provider Active Team Status: Inactive Member Role Status Dates Dr. Josafat Leonard DO Primary Care Provider Active Dr. Emmett Cabrera DO Referring Provider, Emergency Provider Active Team Status: Inactive Member Role Status Dates Dr. Josafat Leonard DO Primary Care Provider Active Dr. Emmett Cabrera , DO Attending Provid er, Referring Provider, Emergency Provider Active Team Status: Inactive Member Role Status Dates Dr. Josafat Leonard DO Primary Care Provider Active Dr. Raghu Sadler DO Emergency Provider Active Hospice Spiritual Care Coordinator Relationship Specialty Start Date End Date Josafat Leonard DO [address] [facility], [address] [address] PCP - [employer] PCP 08/13/21 Josafat Leonard DO [address] [facility], [address] [address] PCP - [facility] Medicaid PCP 06/13/22 Josafat Leonard DO [address] [facility], [address] [address] PCP - General Family Medicine 12/27/22 Hospice Spiritual Care Coordinator Relationship Specialty Start Date End Date Josafat Leonard DO [address] [facility], [address] [address] PCP - [employer] PCP 08/13/21 Josafat Leonard DO [address] [facility], [address] [address] PCP - [facility] Medicaid PCP 06/13/22 Josafat Leonard DO [address] [facility], [address] [address] PCP - General Family Medicine 12/27/22 Team Status: Inactive Member Role Status Dates Dr. Josafat Leonard , DO Primary Care Provider Active Dr. Raghu Sadler , DO Attending Provider, Isa reilly Active Team Status: Inactive Member Role Status Dates Dr. Josafat Leonard , DO Primary Care Provider Active Dr. Mynor Colon , DO Emergency Provider Active Hospice Spiritual Care Coordinator Relationship Specialty Start Date End Date Josafat Leonard DO [address] [facility], [address] [address] PCP - [facility] Medicaid PCP 06/13/22 Josafat Leonard DO [address] [facility], [address] [address] PCP - General Family Medicine 12/27/22 Dev Martel PA-C [address] [place] [address] PCP - [place] PCP 06/14/23 Hospice Spiritual Care Coordinator Relationship Specialty Start Date End Date Josafat Leonard DO [facility] [id number] PCP - General 09/18/15 Hospice Spiritual Care Coordinator Relationship Specialty Start Date End Date Josafat Leonard DO [address] [facility], [address] [address] PCP - General Family Medicine 12/27/22 Dev Martel PA-C [address] [place] [address] PCP - [employer] PCP 06/14/23 Dev Martel PA-C [address] [place] [address] PCP - [employer] Medicaid PCP 12/14/23 Hospice Spiritual Care Coordinator Relationship Specialty Start Date End Date Josafat Leonard DO [address] [place] [address] PCP - General 09/18/15 Hospice Spiritual Care Coordinator Relationship Specialty Start Date End Date Josafat Leonard DO [address] [facility], [address] [place] [address] PCP - General Family Medicine 12/27/22 Dev Martel PA-C [address] [place] [address] PCP - [employer] PCP 06/14/23 Dev Martel PA-C [address] [place] [address] PCP - [employer] Medicaid PCP 12/14/23 Hospice Spiritual Care Coordinator Relationship Specialty Start Date End Date Josafat Leonard DO [address] [facility], [address] [place] [address] PCP - General Family Medicine 12/27/22 Dev Martel PA-C [address] [place] [address] PCP - [employer] PCP 06/14/23 Dev Martel PA-C [address] [place] [address] PCP - [employer] Medicaid PCP 12/14/23 Hospice Spiritual Care Coordinator Relationship Specialty Start Date End Date Josafat Leonard DO [address] [facility], [address] [address] PCP - General Family Medicine 12/27/22 Dev Martel PA-C [address] [place] [address] PCP - [employer] PCP 06/14/23 Dev Martel PA-C [address] [place] [address] PCP - [employer] Medicaid PCP 12/14/23 Hospice Spiritual Care Coordinator Relationship Specialty Start Date End Date MattidiJosafat levin DO [address] [facility], [address] [address] PCP - General Family Medicine 12/27/22 Dev Martel PA-C [address] [place] [address] PCP - [facility] PCP 06/14/23 Dev Martel PA-C [address] [place] [address] PCP - [employer] Medicaid PCP 12/14/23 Hospice Spiritual Care Coordinator Relationship Specialty Start Date End Date Josafat Leonard DO [address] [facility], [address] [address] PCP - General Family Medicine 12/27/22 Dev Martel PA-C [address] [place] [address] PCP - [facility] PCP 06/14/23 Dev Martel PA-C [address] [place] [address] PCP - [employer] Medicaid PCP 12/14/23 Hospice Spiritual Care Coordinator Relationship Specialty Start Date End Date Josafat Leonard DO [address] [facility], [address] [address] PCP - General Family Medicine 12/27/22 Dev Martel PA-C [address] [place] [address] PCP - [facility] PCP 06/14/23 Dev Martel PA-C [address] [place] [address] PCP - [employer] Medicaid PCP 12/14/23 Hospice Spiritual Care Coordinator Relationship Specialty Start Date End Date Josafat Leonard DO [address] [facility], [address] [address] PCP - General Family Medicine 12/27/22 Dev Martel PA-C [address] [place] [address] PCP - [facility] PCP 06/14/23 Dev Martel PA-C [address] [place] [address] PCP - [employer] Medicaid PCP 12/14/23 Hospice Spiritual Care Coordinator Relationship Specialty Start Date End Date Josafat Leonard DO [address] [place] [id number] PCP - General 09/18/15 Hospice Spiritual Care Coordinator Relationship Specialty Start Date End Date Josafat Leonard DO PCP - General 09/18/15 Hospice Spiritual Care Coordinator Relationship Specialty Start Date End Date Josafat Leonard DO PCP - General 09/18/15 Hospice Spiritual Care Coordinator Relationship Specialty Start Date End Date Josafat Leonard DO [address] [facility], [facility] [address] [place] [address] PCP - General Family Medicine 12/27/22 Dev Martel PA-C [address] [place] [address] PCP - [facility] PCP 06/14/23 Dev Martel PA-C [address] [place] [address] PCP - [employer] Medicaid PCP 12/14/23 Hospice Spiritual Care Coordinator Relationship Specialty Start Date End Date Josafat Leonard DO PCP - General 09/18/15 Hospice Spiritual Care Coordinator Relationship Specialty Start Date End Date Josafat Leonard DO [address] [facility], [facility] [address] [place] [address] PCP - General Family Medicine 12/27/22 Dev Martel PA-C [address] [place] [address] PCP - [facility] PCP 06/14/23 Dev Martel PA-C [address] [place] [address] PCP - [employer] Medicaid PCP 12/14/23 Hospice Spiritual Care Coordinator Relationship Specialty Start Date End Date MattidiJosafat levin DO [address] [facility], [address] [address] PCP - General Family Medicine 12/27/22 Dev Martel PA-C [address] [place] [address] PCP - [facility] PCP 06/14/23 Dev Martel PA-C [address] [place] [address] PCP - [employer] Medicaid PCP 12/14/23 Hospice Spiritual Care Coordinator Relationship Specialty Start Date End Date Josfaat Leonard DO [address] [facility], [facility] [address] [place] [address] PCP - General Family Medicine 12/27/22 Dev Martel PA-C [address] [place] [address] PCP - [facility] PCP 06/14/23 Dev Martel PA-C [address] [place] [address] PCP - [facility] Medicaid PCP 12/14/23 Team Status: Active Member Role/Relationship Status Dates Dr. Josafat Leonard DO Primary Care Provider Active Team Status: Inactive Member Role/Relationship Status Dates Dr. Josafat Leonard DO Primary Care Provider Active Start: October 23, 2024 End: October 23, 2024 Dr. Caleb Smith DO Emergency Provider Active Start: October 23, 2024 End: October 23, 2024 Reason for Visit (unrecogniz ed section and content) Reason Comments Pain xrays Specialty Diagnoses / Procedures Referred By Contac t Referred To Contact Radiology Diagnoses Lumbar pain Procedures XR lumbar spine complete 4+ views Sha Foster MD [address] [facility], [address] [place], [place] [id number] Referral ID Status Reason Start Date Expiration Date Visits Requested Visits Authorized [id number] Authorized Perform Procedure 05/04/2023 05/03/2024 1 1 Reason Comments Follow-up MRI was denied due t o lack of therapy, did not do therapyHas [facility] and had CT scans done there Reason Comments Numbness Hx of bulged disc, a nd compacted spine. Reason Comments Follow-up MRI Reason Comments Back Pain Back pain R lumbar d own leg to ankle. Reason Comments Follow-up MRI done at Reason Comments Post-op 02/24/24 C5-6, C6-7 ACDFX-rays today12 days PO Reason Comments Back Pain Chronic back pain do wn right leg Reason Comments Fall Reason Comments Post-op 02/24/24 C5-6, C6-7 ACDF3 months 13 days Reason Comments Back Pain Low back pain with r adiation into left hip and leg, denies losing bowel and bladder. Reason Comments Re-Establish Care Pt in today to re-es tablish care / discuss insomnia & pain Reason Comments Back Pain Lumbar herniated dis k for the past 2 years. Left hip, and leg pain. 7/10 pain usually takes tylenol and IBU not working like it usually does. Yard work instigated. Reason Comments Back Pain NPV, rmd- Dr. Ruben kesslersciatica Neck Pain NPV, rmd- Dr. Ruben kessler Extremity Weakness NPV, rmd- Dr. Ruben kessler Numbness NPV, rmd- Dr. Ruben kesslerFrom torso downCan't feel warm or cold on torso as well Specialty Diagnoses / Procedures Referred By Julio Cesar hoffman Referred To Contact Neurology Diagnoses Back pain with radiculopathy Sha Foster MD [address] [facility], [address] [place] [address] Phone: tel: fax: Referral ID Status Reason Start Date Expiration Date Visits Requested Visits Authorized [id number] Authorized Specialty Services Required 02/07/2025 1 1 Reason Comments Back Pain Specialty Diagnoses / Procedures Referred By Julio Cesar hoffman Referred To Contact Pain Medicine Diagnoses Back pain with radiculopathy Dev Martel PA-C [address] [place] [address] Phone: tel: [place]: [place] [address] [facility], [facility], [address] [address] Phone: tel: fax: Referral ID Status Reason Start Date Expiration Date Visits Requested Visits Authorized [id number] Authorized Specialty Services Required 06/27/2024 06/27/2025 1 1 Reason Comments New Patient Visit Evaluation of [facility]. Ordered Prescriptions (unrec ognized section and content) Prescription Sig Dispensed Refills Start Date End Da te methylPREDNISolone (MEDROL, MUNIR,) 4 MG tablet Take by mouth. 1 kit 01/29/2024 02/04/2024 ibuprofen (ADVIL;MOTRIN) 800 MG tablet Take 1 tablet by mouth every 8 hours as needed for Pain 30 tablet 01/29/2024 02/08/2024 tiZANidine (ZANAFLEX) 4 MG tablet Take 1 tablet by mouth every 8 hours as needed (muscle spasm/pain) 30 tablet 01/29/2024 02/08/2024 Prescription Sig Dispensed Refills Start Date End Da te cyclobenzaprine (FLEXERIL) 10 MG tablet Take 1 tablet by mouth 3 times daily as needed for Muscle spasms 21 tablet 02/09/2024 02/19/2024 oxyCODONE-acetaminophen (PERCOCET) 5-325 MG per tabletIndications:Lumbos acral radiculitis Take 1 tablet by mouth every 8 hours as needed for Pain for up to 3 doses. Intended supply: 3 days. Take lowest dose possible to manage pain Max Daily Amount: 3 tablets 3 tablet 02/09/2024 02/11/2024 Prescription Sig Dispensed Refills Start Date End Da te methylPREDNISolone (MEDROL DOSEPACK) 4 MG tablet Take by mouth. 1 kit 12/12/2023 12/18/2023 lidocaine (LIDOCAINE PAIN RELIEF) 4 % external patch Place 1 patch onto the skin daily for 10 days 10 each 12/12/2023 12/22/2023 Prescription Sig Dispensed Refills Start Date End Da te Misc. Devices (WALKER) MISC 1 each by Does not apply route daily 1 each 05/19/2024 methocarbamol (ROBAXIN) 500 MG tablet Take 1 tablet by mouth 4 times daily as needed (Pain) 20 tablet 05/19/2024 05/24/2024 predniSONE (DELTASONE) 20 MG tablet Take 1 tablet by mouth 2 times daily for 5 days 10 tablet 05/19/2024 05/24/2024 Prescription Sig Dispense Quantity Refills Last Filled Start Date End Date predniSONE (DELTASONE) 50 MG tablet Take 1 tablet by mouth daily for 4 days 4 tablet 06/15/2024 06/19/2024 cyclobenzaprine (FLEXERIL) 5 MG tablet Take 1 tablet by mouth 2 times daily as needed for Muscle spasms 20 tablet 06/15/2024 06/25/2024 Prescription Sig Dispense Quantity Refills Last Filled Start Date End Date cyclobenzaprine (FLEXERIL) 10 MG tablet Take 1 tablet by mouth 3 times daily as needed for Muscle spasms 15 tablet 07/14/2024 07/24/2024 Scheduled Active and Recently Administ ered Medications (unrecognized section and content) Medication Order 01/27/2024 01/28/2024 01/29/2024 ketorolac (TORADOL) injection 30 mg (COMPLETED) 30 mg, IntraVENous, ONCE, 1 dose, On 01/29/24 at 2036, Do not administer for more than 5 days. 2038 (Given - Provid er: Flavio Moser RN) orphenadrine (NORFLEX) injection 60 mg (COMPLETED) 60 mg, IntraMUSCular, ONCE, 1 dose, On 01/29/24 at 2038 2038 (Given - Provid er: Flavio Moser RN) oxyCODONE-acetaminophen (PERCOCET) 5-325 MG per tablet 1 tablet (COMPLETED) 1 tablet, Oral, ONCE, 1 dose, On 01/29/24 at 2128, Maximum dose of acetaminophen is 4000 mg from all sources in 24 hours. 2129 (Given - Provid er: Laurie Alfonso RN) predniSONE (DELTASONE) tablet 60 mg (COMPLETED) 60 mg, Oral, ONCE, 1 dose, On 01/29/24 at 2122129 (Given - Provid er: Laurie Alfonso RN) Scheduled Medication Order 02/07/2024 02/08/2024 02/09/2024 ketorolac (TORADOL) injection 30 mg (COMPLETED) 30 mg, IntraMUSCular, ONCE, 1 dose, On Wed02/08/24 at 2224, Do not administer for more than 5 days. 2229 (Given - Provider: Laurie Alfonso RN) morphine sulfate (PF) injection 2 mg (COMPLETED) 2 mg, IntraMUSCular, ONCE, 1 dose, On Wed02/09/24 at 0007 0018 (Given - Provid er: Laurie Alfonso RN) orphenadrine (NORFLEX) injection 60 mg (COMPLETED) 60 mg, IntraMUSCular, ONCE, 1 dose, On Wed02/08/24 at 2224 2230 (Given - Provider: Laurie Alfonso RN) oxyCODONE-acetaminophen (PERCOCET) 5-325 MG per tablet 1 tablet (COMPLETED) 1 tablet, Oral, ONCE, 1 dose, On Wed02/08/24 at 2322, Maximum dose of acetaminophen is 4000 mg from all sources in 24 hours. 2322 (Given - Provider: Laurie Alfonso RN) predniSONE (DELTASONE) tablet 60 mg (COMPLETED) 60 mg, Oral, ONCE, 1 dose, On Wed02/08/24 at 2224 2230 (Given - Provider: Laurie Alfonso RN) Scheduled Medication Order 02/24/2024 02/25/2024 02/26/2024 acetaminophen (Tylenol) tablet 650 mg (COMPLETED) 650 mg, oral, Once, On Angelita 12//24 at 0115, For 1 dose, Preprocedure, If ordered PRN for pain, nurse is permitted to administer this medication for higher pain scores based on patient preference? Yes 1210 (Given - Provider: Elisha Bruce RN) acetaminophen (Tylenol) tablet 650 mg 650 mg, oral, Every 6 hours, First dose on Angelita //24 at 1815, If ordered PRN for pain, nurse is permitted to administer this medication for higher pain scores based on patient preference? Yes 1805 (Given - Provider: Susana Estrada, GIA) 0002 (Given - Provider: Haley Laboy, GIA)0620 (Given - Provider: Haley Laboy, GIA)1212 (Given - Provider: Felipe Acuña RN)2025 (Given - Provider: Rafa Kwan, GIA) 0042 (Given - Provider: Rafa Kwan, GIA)0540 (Given - Provider: Rafa Kwan RN)1215 (Due)1815 (Due) ceFAZolin (Ancef) 2 g in dextrose (iso) IV 100 mL (COMPLETED) 2 g, intravenous, Administer over 30 Minutes, Once, On Angelita 1224 at 0545, For 1 dose, Intraprocedure, premix bag, Dosing of this medication varies based on severity of illness. Does this patient have sepsis or concern for sepsis (probable or documented infection plus systemic manifestations of infection)? No, Suspected Indication (Select all that apply): Surgical Prophylaxis, Indications: Surgical Prophylaxis 1259 (Given - Provider: Pranay Lopez, [employer] COORDINATOR)1613 (Anesthesia Volume Adjustment - Provider: Kris Madrid DO) ceFAZolin (Ancef) 2 g in dextrose (iso) IV 100 mL (COMPLETED) 2 g, intravenous, Administer over 30 Minutes, Every 8 hours, First dose on Angelita 24 at 2100, For 2 doses, X 2 post op premix bag, Dosing of this medication varies based on severity of illness. Does this patient have sepsis or concern for sepsis (probable or documented infection plus systemic manifestations of infection)? No, Suspected Indication (Select all that apply): Surgical Prophylaxis, Indications: Surgical Prophylaxis 2009 (New Bag - Provider: Haleyarmando Laboy RN)204 (Stopped - Provider: Haley Laboy RN) 040 (New Bag - Provider: Haley Laboy RN)043 (Stopped - Provider: Haley Laboy RN) celecoxib (CeleBREX) capsule 200 mg (COMPLETED) 200 mg, oral, Once, On Angelita 02/24/24 at 0115, For 1 dose, Preprocedure, 1 hour prior to incision Capsules may be opened and sprinkled on a spoonful of cold or room temperature applesauce. 1211 (Given - Provider: Elisha Bruce RN) oxygen (O2) therapy inhalation, Continuous - , First dose on Angelita 02/24/24 at 1815, Titrate supplemental oxygen to maintain SpO2 greater than or equal to 92, Device: Nasal Cannula, Rate in liters per minute: 1 LPM, Keep O2 Sat Above: 92% 1802 (Stopped - Provider: Susana Estrada RN)1815 (Due) 0800 (Due) 0800 (Due) piperacillin-tazobactam (Zosyn) 3.375 g in dextrose (iso) IV 50 mL (CANCELED) 3.375 g, intravenous, Administer over 4 Hours, Every 8 hours, First dose on Wed02/23/24 at 0500, Therapeutic Interchange to Zosyn Extended Infusion premix bag, Dosing of this medication varies based on severity of illness. Does this patient have sepsis or concern for sepsis (probable or documented infection plus systemic manifestations of infection)? No, Suspected Indication (Select all that apply): Cellulitis, Skin and Soft Tissue, Type of Therapy: Empiric, Indications: Cellulitis, Skin and Soft Tissue 0218 (Stopped - Provider: Haley Laboy RN)0555 (New Bag - Provider: Haley Laboy RN)1109 (Stopped - Provider: Susana Estrada RN)1207 (MAY Hold - Provider: Automatic Transfer Provider - Reason: Unreviewed Transfer Orders)1300 (Dose Auto Held - Provider: Automatic Transfer Provider)1908 (MAR Unhold - Provider: Veda Polk MD)205 (New Bag - Provider: Haley Laboy RN) 005 (Stopped - Provider: Haley Laboy RN)0511 (New Bag - Provider: Haley Laboy RN)0917 (Stopped - Provider: Felipe Acuña RN) polyethylene glycol (Glycolax, Miralax) packet 17 g 17 g, oral, Daily, First dose on Angelita 02/24/24 at 1815, Bowel Regimen - for prevention of constipation. 1802 (Not Given - Provider: Susana Estrada RN - Reason: Patient/family refused) 0917 (Not Given - Provider: Felipe Acuña RN - Reason: Patient/family refused) 0828 (Not Given - Provider: Felipe Acuña RN - Reason: Patient/family refused) sulfamethoxazole-trimetho prim (Bactrim DS) 800-160 mg per tablet 1 tablet 1 tablet, oral, Every 12 hours scheduled, First dose on Wed02/25/24 at 1030, Suspected Indication (Select all that apply): Cellulitis, Skin and Soft Tissue, Type of Therapy: Definitive, Based on Culture, Coverage (Select all that apply): MRSA: Staph, Methicillin-Resistant, Indications: Cellulitis, Skin and Soft Tissue 1048 (Given - Provider: Felipe Acuña RN)2026 (Given - Provider: Rafa Kwan, GIA) 0948 (Given - Provider: Felipe Acuña RN)2100 (Due) tranexamic acid (Lysteda) tablet 1,950 mg (COMPLETED) 1,950 mg, oral, Once, On Angelita 02/24/24 at 0600, For 1 dose, Preprocedure, 90 minutes prior to procedure Do not crush, chew, or split. 1211 (Given - Provider: Elisha Bruce RN) tranexamic acid (Lysteda) tablet 1,950 mg (COMPLETED) 1,950 mg, oral, Once, On Angelita 02/24/24 at 1630, For 1 dose, Second dose administered 4 hours post procedure. Do not crush, chew, or split., Tranexamic Acid Indication: Surgical Prophylaxis: Spinal 2010 (Given - Provider: Haley Laboy, GIA) vancomycin (Vancocin) 1,000 mg in dextrose 5% IV 200 mL (CANCELED) 1,000 mg, intravenous, at 200 mL/hr, Administer over 60 Minutes, Every 12 hours, First dose (after last modification) on Wed02/23/24 at 1300, premix bag, Dosing of this medication varies based on severity of illness. Does this patient have sepsis or concern for sepsis (probable or documented infection plus systemic manifestations of infection)? No, Suspected Indication (Select all that apply): Cellulitis, Skin and Soft Tissue, Type of Therapy: Empiric, Indications: Cellulitis, Skin and Soft Tissue 0223 (New Bag - Provider: Haley Laboy RN - Comment: zosyn infusing)0323 (Stopped - Provider: Haley Laboy RN)1207 (MAR Hold - Provider: Automatic Transfer Provider - Reason: Unreviewed Transfer Orders)1300 (Dose Auto Held - Provider: Automatic Transfer Provider)1908 (MAR Unhold - Provider: Veda Polk MD) 0102 (New Bag - Provider: Haley Laboy RN)0202 (Stopped - Provider: Haley Laboy RN) Continuous Medication Order 02/24/2024 02/25/2024 02/26/2024 sodium chloride 0.9% infusion 100 mL/hr, intravenous, Continuous, Starting on Angelita 02/24/24 at 1815, For 2 days, Convert IV to saline lock when taking oral fluids. 1759 (New Bag - Provider: Susana Estrada RN)2304 (Rate/Dose Verify - Provider: Haley Laboy RN) PRN Medication Order 02/24/2024 02/25/2024 02/26/2024 ALPRAZolam (Xanax) tablet 0.5 mg 0.5 mg, oral, Nightly PRN, anxiety, Starting on Angelita 02/24/24 at 2002 2009 (Given - Provider: Haley Laboy RN) 2025 (Given - Provider: Rafa Kwan RN) cyclobenzaprine (Flexeril) tablet 10 mg 10 mg, oral, 3 times daily PRN, muscle spasms, Starting on Angelita 02/24/24 at 1745, Indications: muscle spasm 2009 (Given - Provider: Haley Laboy RN) 1211 (Given - Provider: Felipe Acuña RN)2025 (Given - Provider: Rafa Kwan RN) dextrose 50 % injection 12.5 g 12.5 g, intravenous, Every 15 min PRN, For blood glucose 41 to 70 mg/dL, Starting on Angelita 02/24/24 at 1745, May repeat until blood glucose level reaches 100 mg/dL or greater. Push 2 - 3 mL/minute if patient has secure IV access. fentaNYL PF (Sublimaze) injection 50 mcg (CANCELED) 50 mcg, intravenous, Every 5 min PRN, pain moderate (4-6), first line, Starting on Angelita 02/24/24 at 1612, For 3 doses, Recovery (only), Max total of 200 micrograms regardless of dose., If ordered PRN for pain, nurse is permitted to administer this medication for higher pain scores based on patient preference? Yes 165 (Given - Provider: Linda Galarza RN)1700 (Given - Provider: Linda Galarza RN) glucagon (Glucagen) injection 1 mg 1 mg, intramuscular, Every 15 min PRN, low blood sugar - see comments, For blood glucose less than or equal to 70 mg/dL and no IV access, Starting on Angelita 02/24/24 at 1745, Give until blood glucose is 100 mg/dL or greater. If patient DOES NOT HAVE secure IV access & patient is unconscious, NPO or is unable to eat or drink. HYDROmorphone (Dilaudid) injection 0.5 mg (COMPLETED) 0.5 mg, intravenous, Every 5 min PRN, pain severe (7-10), first line, Starting on Angelita 02/24/24 at 1612, For 3 doses, Recovery (only), Max total of 4 mg regardless of dose. 1624 (Given - Provider: Linda Galarza RN)1629 (Given - Provider: Linda Galarza RN)1635 (Given - Provider: Linda Galarza RN)1643 (Given - Provider: Linda Galarza RN - Comment: Not given. Realized only ordered for 3 doses. Verified with Dana Alcala and wasted.) hydrOXYzine pamoate (Vistaril) capsule 25 mg 25 mg, oral, Every 6 hours PRN, anxiety, Starting on Wed02/25/24 at 5756 9319 (Given - Provider: Felipe Acuña RN) lubricating eye drops ophthalmic solution 1 drop 1 drop, Left Eye, As needed, dry eyes, Starting on Angelita 02/24/24 at 1908 2009 (Given - Provider: Haley Laboy, GIA) meperidine PF (Demerol) injection 12.5 mg (CANCELED) 12.5 mg, intravenous, Every 10 min PRN, shivering, Starting on Angelita 24 at 1612, Recovery (only) 1614 (Given - Provider: Linda Galarza RN) morphine injection 2 mg 2 mg, intravenous, Every 2 hour PRN, pain breakthrough, use oral first and only use IV if oral is ineffective or cannot take oral. Use as first line if no PO med ordered., Starting on Angelita 24 at 1745 naloxone (Narcan) injection 0.2 mg 0.2 mg, intravenous, Every 5 min PRN, respiratory depression, Starting on Angelita 24 at 1745, If respiratory rate is less than 8 breaths/minute or patient is difficult to arouse stop any narcotics and contact physician. Administer slow IV push. Repeat as ordered until patient's respiratory rate is greater than 12 breaths/minute. ondansetron (Zofran) injection 4 mg(Linked Group 1) 4 mg, intravenous, Every 8 hours PRN, nausea/vomiting, first line, Starting on Angelita 02/24/24 at 1745, 1st Line. Give IV if patient is unable to take orally. If inadequate response within 60 minutes, proceed to next-line agent for same PRN reason or contact provider if no further options ordered. When administering via IV Push, administer over 3-5 minutes. ondansetron (Zofran) tablet 4 mg(Linked Group 1) 4 mg, oral, Every 8 hours PRN, nausea/vomiting, first line, Starting on Angelita 24 at 1745, 1st Line. Use oral route first, if possible. If inadequate response within 60 minutes, proceed to next-line agent for same PRN reason or contact provider if no further options ordered. oxyCODONE (Roxicodone) immediate release tablet 10 mg 10 mg, oral, Every 4 hours PRN, pain severe (7-10), first line, Starting on Angelita 24 at 1745, If ordered PRN for pain, nurse is permitted to administer this medication for higher pain scores based on patient preference? Yes 1806 (Given - Provider: Susana Estrada RN)2213 (Given - Provider: Haley Laboy RN) 0214 (Given - Provider: Haley Laboy RN)0620 (Given - Provider: Haley Laboy RN)1048 (Given - Provider: Felipe Acuña, RN)1549 (Given - Provider: Felipe Acuña RN)2024 (Given - Provider: Rafa Kwan RN) 0041 (Given - Provider: Rafa Kwan RN)0948 (Given - Provider: Felipe Acuña, GIA) oxyCODONE (Roxicodone) immediate release tablet 2.5 mg 2.5 mg, oral, Every 4 hours PRN, pain mild (1-3), first line, Starting on Angelita 02/24/24 at 1745, If ordered PRN for pain, nurse is permitted to administer this medication for higher pain scores based on patient preference? Yes oxyCODONE (Roxicodone) immediate release tablet 5 mg 5 mg, oral, Every 4 hours PRN, pain mild (1-3), first line, Starting on Angelita 02/24/24 at 1745, When able to take oral medications., If ordered PRN for pain, nurse is permitted to administer this medication for higher pain scores based on patient preference? Yes oxyCODONE (Roxicodone) immediate release tablet 5 mg 5 mg, oral, Every 4 hours PRN, pain moderate (4-6), first line, Starting on Wed02/24/24 at 1745, If ordered PRN for pain, nurse is permitted to administer this medication for higher pain scores based on patient preference? Yes oxyCODONE-acetaminophen (Percocet) 5-325 mg per tablet 1 tablet 1 tablet, oral, Every 6 hours PRN, pain severe (7-10), first line, Starting on Wed02/22/24 at 1810, If ordered PRN for pain, nurse is permitted to administer this medication for higher pain scores based on patient preference? Yes 0229 (Given - Provider: Haley Laboy RN)0905 (Given - Provider: Susana Estrada RN)1207 (MAR Hold - Provider: Automatic Transfer Provider - Reason: Unreviewed Transfer Orders)1908 (MAR Unhold - Provider: Veda Polk MD) promethazine (Phenergan) 6.25 mg in sodium chloride 0.9% 50 mL IV 6.25 mg, intravenous, Administer over 15 Minutes, Once as needed, Nausea/vomiting, second line, Starting on Angelita 12//24 at 1745, For 1 dose sodium chloride 0.9 % irrigation solution (CANCELED) As needed, Starting on Angelita 12//24 at 1334, Intraprocedure 1334 (Given - Provider: Sha Foster MD) thrombin-bovine (JMI) 5,000 unit topical solution (CANCELED) As needed, Starting on Angelita 1224 at 1334, Intraprocedure 1334 (Given - Provider: Sha Foster MD - Comment: CERVICAL SPINE) Linked Groups Order Group 1: ondansetron (Zofran) tablet 4 mgJump to med 4 mg, oral, Every 8 hours PRN, nausea/vomiting, first line, Starting on Angelita 1224 at 1745, 1st Line. Use oral route first, if possible. If inadequate response within 60 minutes, proceed to next-line agent for same PRN reason or contact provider if no further options ordered. Or ondansetron (Zofran) injection 4 mgJump to med 4 mg, intravenous, Every 8 hours PRN, nausea/vomiting, first line, Starting on Angelita 12//24 at 1745, 1st Line. Give IV if patient is unable to take orally. If inadequate response within 60 minutes, proceed to next-line agent for same PRN reason or contact provider if no further options ordered. When administering via IV Push, administer over 3-5 minutes. Scheduled Medication Order 12/10/2023 12/11/2023 12/12/2023 ketorolac (TORADOL) injection 30 mg (COMPLETED) 30 mg, IntraMUSCular, ONCE, 1 dose, On 12/12/23 at 1847, Do not administer for more than 5 days. 1850 (Given - Provid er: Radha Ferguson RN) orphenadrine (NORFLEX) injection 60 mg (COMPLETED) 60 mg, IntraMUSCular, ONCE, 1 dose, On 12/12/23 at 1847 1849 (Given - Provid er: Radha Ferguson RN) oxyCODONE-acetaminophen (PERCOCET) 5-325 MG per tablet 1 tablet (COMPLETED) 1 tablet, Oral, ONCE, 1 dose, On 12/12/23 at 1903, Maximum dose of acetaminophen is 4000 mg from all sources in 24 hours. 1904 (Given - Provid er: Radha Ferguson RN) Scheduled Medication Order 05/17/2024 05/18/2024 05/19/2024 ketorolac (TORADOL) injection 15 mg (COMPLETED) 15 mg, IntraMUSCular, ONCE, 1 dose, On Wed05/19/24 at 0154 0205 (Given - Provid er: Dinesh Garcia RN) methocarbamol (ROBAXIN) tablet 500 mg (COMPLETED) 500 mg, Oral, ONCE, 1 dose, On Wed05/19/24 at 0154 0205 (Given - Provid er: Dinesh Garcia RN) oxyCODONE-acetaminophen (PERCOCET) 5-325 MG per tablet 1 tablet (COMPLETED) 1 tablet, Oral, ONCE, 1 dose, On Wed05/19/24 at 0342, Maximum dose of acetaminophen is 4000 mg from all sources in 24 hours. 0350 (Given - Provid er: Dinesh Garcia RN) Scheduled Medication Order 06/13/2024 06/14/2024 06/15/2024 cyclobenzaprine (FLEXERIL) tablet 10 mg (COMPLETED) 10 mg, Oral, ONCE, 1 dose, On Angelita 06/15/24 at 2144 2157 (Given - Provid er: Renay Davila RN) ketorolac (TORADOL) injection 30 mg (COMPLETED) 30 mg, IntraMUSCular, ONCE, 1 dose, On Wed06/15/24 at 2144, Do not administer for more than 5 days. 2157 (Given - Provid er: Renay Davila RN) lidocaine 4 % external patch 1 patch 1 patch, TransDERmal, Administer over 12 Hours, NOW, On Angelita 06/15/24 at 2144, For 1 dose, Apply patch to left lower back. The leak inspector's recommendations for the number of patches that can be applied within a 24-hour period varies from 1 to 4 times daily and the duration of application varies from 8 to 24 hours; refer to the leak inspector's labeling for product-specific recommendations. 2157 (Patch Applied - Provider: Renay Davila RN) methylPREDNISolone sodium (PF) (SOLU-MEDROL PF) injection 125 mg (COMPLETED) 125 mg, IntraMUSCular, ONCE, On Angelita 06/15/24 at 2144, For 1 dose 2157 (Given - Provid er: Renay Davila RN) Scheduled Medication Order 07/12/2024 07/13/2024 07/14/2024 ketorolac (TORADOL) injection 30 mg (COMPLETED) 30 mg, IntraVENous, ONCE, 1 dose, On Angelita 07/13/24 at 2301, Do not administer for more than 5 days. 2351 (Given - Provider: Aarti Solano RN) methocarbamol (ROBAXIN) tablet 750 mg (COMPLETED) 750 mg, Oral, Once, 1 dose, On Angelita 07/13/24 at 2301 235 (Given - Provider: Aarti Solano RN) morphine sulfate (PF) injection 4 mg (COMPLETED) 4 mg, IntraVENous, ONCE, 1 dose, On Angelita 07/13/24 at 2301, If oral and IV narcotics ordered, use oral first and only use IV if oral is ineffective or cannot take oral. Do Not give oral and IV within 1 hour of each other unless specifically ordered. 2353 (Given - Provider: Aarti Solano RN) ondansetron (ZOFRAN) injection 4 mg (COMPLETED) 4 mg, IntraVENous, ONCE, 1 dose, On Angelita 07/13/24 at 2301 2351 (Given - Provider: Aarti Solano RN) sodium chloride 0.9 % bolus 500 mL (COMPLETED) 500 mL (5.9 mL/kg), IntraVENous, at 967.7 mL/hr, Administer over 31 Minutes, ONCE, On Angelita 07/13/24 at 2301, For 1 dose 2350 (New Bag - Provider: Aarti Solano RN) 0245 (Stopped - Provider: Aarti Solano RN) FOR RECORDS PERTAINING TO PATIENTS WHO ARE [...] BE BASED ON THE PRIMARY CLINICAL RECORDS. [facility]. provides no warranty or guarantee of the accuracy or completeness of information in this document.
--- OUTSIDE RECORDS SUMMARY | 2024-10-23 21:21 | XMS RPT_ITS | CCD ---
Author Organization [facility] Care Team Providers Care Trust Officer Name Role Phone TOM WESLEY Unavailable Unavailable [...] Michel alarcon Degidio DO, Josafat R Unavailable Degidio DO, Josafat R Unavailable Degidio DO, [...] Primary Care Provider Dev Martel PA-C Unavailable [phone] Dev Martel PA-C Unavailable SHA FOSTER Attending Unavailable DEGIDIO, JOSAFAT R Primary Care Unavailable SHA FOSTER Attending Unavailable DEGIDIO, JOSAFAT R Primary Care Unavailable SHA FOSTER Attending Unavailable MATTIDIO, JOSAFAT R Primary Care Unavailable SHA FOSTER Admitting Unavailable SHA FOSTER Attending Unavailable SHA FOSTER Referring Unavailable DEGIDIO, JOSFAAT R Primary Care Unavailable JEFF NICHOLS Consulting [...] ON FILE] Propensity to adverse reactions (disorder) [facility] [place] Repository Medications Current Medications Medication Drug Class(es) [...] Start: 01-04-2024 take 1 capsule by mo [facility] twice daily Gabapentin 300 mg capsule Active [...] Apply patch to left lower back. The manufacturing planner's recommendations for the number of patches that can be applied within a 24-hour period varies from 1 to 4 times daily and the duration of application varies from 8 to 24 hours; refer to the manufacturing planner's labeling for product-specific recommendations. Start: 12-12-2023 End: [...] respiratory rate is greater than 12 breaths/minute. [place] (Nk) (1 source) Start: 08-20-2021 [place] (Nk) Active August 20, 2021 12:00am oxyCODONE [...] June 15, 2021 9:05pm polyethylene glycol 3350 35700 mg powder for oral solution (1 source) [...] First dose on Wed02/23/24 at 0100, Mini-Bag Plus/ADD-[place] bag, Dosing of this medication varies based [...] COMPARISON: MR lumbar spine 02/18/2024. ACCESSION NUMBER(S): [id number] ORDERING CLINICIAN: NIGHAT GRIFFIN TECHNIQUE: Multiplanar, multisequence [...] is mild central canal stenosis. There is [id number] left and minimal right neural foraminal narrowing. [...] Hendrix MD. This study was interpreted at [facility], [place], [place]. MACRO: None Signed by: Eufemia Khan 10/13/2024 12:40 PM Dictation workstation: [id number] [facility] CBC W Auto Differential pane l (Bld)on [...] [Mass/Vol] 16.1 g/dL 14.0 - 18.0 g/dL [facility] Interpretation and review of laboratory [...] High 79.0 - 92.2 fL [facility] Monocytes (Bld) [#/Vol] 1.1 10*3/uL High 0.2 - 0.8 K/uL [facility] Monocytes/100 WBC (Bld) 8.5 % [facility] Neutrophils (Bld) [#/Vol] 7.1 10*3/uL High 1.4 - 6.5 K/uL [facility] Platelets (Bld) [#/Vol] 312 10*3/uL 130 - 400 K/uL [facility] RBC (Bld) [#/Vol] 5.16 10*6/uL [facility] Segmented neutrophils/100 WBC (Bld) 54.3 % [facility] WBC (Bld) [#/Vol] 13 10*3/uL High 4.8 - 10.8 K/uL [facility] CT Kidney WO contraston 05-0 1. No acute intra-ab dominal or pelvic process. No urinary calculi or obstruction. 2. Focal moderate disc degenerative change L4-L5. [facility] RADIOLOGY EXAMINATION: CT OF THE ABDOMEN AND [...] abnormalities. Focal moderate disc degenerative change L4-L5. [facility] RADIOLOGY Smith Bullock MD - 07/14/2024 EXAMINATION: [...] 2. Focal moderate disc degenerative change L4-L5. [facility] contrastOrdered By: Smith Bullock on 07-14-2024 [facility] [employer] Work Phone: LQ Drugs of Abuse Panelon Drug Screen Comment see below Normal [facility] [place] Comment on above: Result Comment: This method is a screening test to detect only these drug classes as part of a medical workup. Confirmatory testing by another method should be ordered if clinically indicated. Performed By: #### U DRGS #### [facility] [place] [address] [place] [address] UR Cannabinoids Screen Positive Abnormal Negative < [facility] [place] Comment on above: Performed By: #### U DRGS #### [facility] [place] [address] [place] [address] UR Fentanyl Screen Negative Normal Negative < [facility] [place] Comment on above: Performed By: #### U DRGS #### [facility] [place] [address] [place] [address] UR Amphetamines Screen Negative Normal Negative < [facility] [place] Comment on above: Performed By: #### U DRGS #### [facility] [place] [address] [place] [address] UR Barbiturates Screen Negative Normal Negative < [facility] [place] Comment on above: Performed By: #### U DRGS #### [facility] [place] [address] [place] [address] UR Benzo Screen Negative Normal Negative < [facility] [place] Comment on above: Performed By: #### U DRGS #### [facility] [place] [address] [place] [address] UR Cocaine Screen Negative Normal Negative < [facility] [place] Comment on above: Performed By: #### U DRGS #### [facility] [place] [address] [place] [address] UR Methadone Screen Negative Normal Negative < [facility] [place] Comment on above: Performed By: #### U DRGS #### [facility] [place] [address] [place] [address] UR Opiates Screen Negative Normal Negative < [facility] [place] Comment on above: Performed By: #### U DRGS #### [facility] [place] [address] [place] [address] UR Oxycodone Screen Negative Normal Negative < [facility] [place] Comment on above: Performed By: #### U DRGS #### [facility] [place] [address] [place] [address] UR PCP Screen Negative Normal Negative < [facility] [place] Comment on above: Performed By: #### U DRGS #### [facility] [place] [address] [place] [address] UR Propoxyphene Screen Negative Normal Negative < [facility] [place] Comment on above: Performed By: #### U DRGS #### [facility] [place] [address] [place] [address] Urinalysis with Reflex to Cu ltureon 07-14-2024 Glucose Test strip (U) [Mass/Vol] Negative Negative mg/dL [facility] Ketones (U) [Mass/Vol] Negative Negative mg/dL [facility] Protein (U) [Mass/Vol] Negative Negative mg/dL [facility] Urine Reflex to Culture Not Indicated [facility] Urobilinogen Qn (U) 0.2 NINF [facility] Urinalysis, reflex to cultur stephen 07-14-2024 Bilirubin Ql (U) Negative Normal Negative [facility] Sec[facility] Comment on above: Performed By: #### C BCWD #### [facility] [place] [address] [place] [address] Clarity (U) Clear Normal Clear [facility] Comment on above: Performed By: #### C BCWD #### [facility] [place] [address] [place] [address] Color (U) Yellow Normal Straw/Bleckley [facility] Comment on above: Performed By: #### C BCWD #### [facility] [place] [address] [place] [address] Glucose Ql (U) Negative Normal Negative [facility] [place] Comment on above: Performed By: #### C BCWD #### [facility] [place] [address] [place] [address] Hemoglobin Ql (U) Negative Normal Negative [facility] Comment on above: Performed By: #### C BCWD #### [facility] [place] [address] [place] [address] Ketones Ql (U) Negative Normal Negative [facility] [place] Comment on above: Performed By: #### C BCWD #### [facility] [place] [address] [place] [address] Leukocyte esterase Test strip Ql (U) Negative Normal Negative [facility] Comment on above: Performed By: #### C BCWD #### [facility] [place] [address] [place] [address] Nitrite Ql (U) Negative Normal Negative [facility] Comment on above: Performed By: #### C BCWD #### [facility] [place] [address] [place] [address] pH (U) 6.5 [pH] Normal 5.0-9.0 [facility] Comment on above: Performed By: #### C BCWD #### [facility] [place] [address] [place] [address] Protein Ql (U) Negative Normal Negative [facility] [place] Comment on above: Performed By: #### C BCWD #### [facility] [place] [address] [place] [address] Specific gravity (U) [Rel density] 1.026 Normal 1.005-1.03 [facility] Comment on above: Performed By: #### C BCWD #### [facility] [place] [address] [place] [address] Urine Reflexed to Culture Not Indicated Normal [facility] [place] Comment on above: Performed By: #### C BCWD #### [facility] [place] [address] [place] [address] Urobilinogen Qn (U) 0.2 {Bassam'U}/dL Normal < 2.0 [facility] [place] Comment on above: Performed By: #### C BCWD #### [facility] [place] [address] [place] [address] Urine Drug Screenon 07-15-19 25 Amphetamines Ql (U) Negative Negative <1000 ng/mL [facility] Barbiturates Screen Ql (U) Negative Negative < 200 ng/mL [facility] Benzodiazepines Ql (U) Negative Negative < 200 ng/mL [facility] Cannabinoids Screen Ql (U) Positive Abnormal Negative < 50 ng/mL [facility] Cocaine Ql (U) Negative Negative < 300 ng/mL [facility] Drug screen comment (U) [Interp] see below [facility] Comment on above: This method is a scr eening test to detect only these drug classes as part of a medical workup. Confirmatory testing by another method should be ordered if clinically indicated. FENTANYL SCREEN, URINE Negative Negative < 50 ng/mL [facility] Interpretation and review of laboratory results Abnormal [facility] Methadone Screen Ql (U) Negative Negative <300 ng/mL [facility] Opiates Screen Ql (U) Negative Negative < 300 ng/mL [facility] oxyCODONE Ql (U) Negative Negative <100 ng/mL [facility] Phencyclidine Ql (U) Negative Negative < 25 ng/mL [facility] Propoxyphene Screen Ql (U) Negative Negative <300 ng/mL [facility] CBC With Platelet and Differ entialon 07-13-2024 Basophils (Bld) [#/Vol] 0.1 10*3/uL Normal 0.0-0.2 [facility] [place] Comment on above: Performed By: #### C BCWD #### [facility] [place] [address] [place] [address] Basophils/100 WBC (Bld) 0.6 % Normal [facility] [place] Comment on above: Performed By: #### C BCWD #### [facility] [place] [address] [place] [address] Eosinophils (Bld) [#/Vol] 0.7 10*3/uL Normal 0.0-0.7 [facility] [place] Comment on above: Performed By: #### C BCWD #### [facility] [place] [address] [place] [address] Eosinophils/100 WBC (Bld) 5.2 % Normal [facility] [place] Comment on above: Performed By: #### C BCWD #### [facility] [place] [address] [place] [address] Erythrocyte distribution width (RBC) [Ratio] 12.0 % Normal 11.5-14.5 [facility] [place] Comment on above: Performed By: #### C BCWD #### [facility] [place] [address] [place] [address] Hematocrit (Bld) [Volume fraction] 48.2 % Normal 42.0-52.0 [facility] [place] Comment on above: Performed By: #### C BCWD #### [facility] [place] [address] [place] [address] Hemoglobin (Bld) [Mass/Vol] 16.1 g/dL Normal 14.0-18.0 [facility] [place] Comment on above: Performed By: #### C BCWD #### [facility] [place] [address] [place] [address] Lymphocytes (Bld) [#/Vol] 4.0 10*3/uL Normal 1.0-4.8 [facility] [place] Comment on above: Performed By: #### C BCWD #### [facility] [place] [address] [place] [address] Lymphocytes/100 WBC (Bld) 31.1 % Normal [facility] [place] Comment on above: Performed By: #### C BCWD #### [facility] [place] [address] [place] [address] MCH (RBC) [Entitic mass] 31.2 pg Normal 27.0-31.3 [facility] [place] Comment on above: Performed By: #### C BCWD #### [facility] [place] [address] [place] [address] MCHC 33.4 % Normal 33.0-37.0 [facility] [place] Comment on above: Performed By: #### C BCWD #### [facility] [place] [address] [place] [address] MCV (RBC) [Entitic vol] 93.4 fL Critically high 79.0-92.2 [facility] [place] Comment on above: Performed By: #### C BCWD #### [facility] [place] [address] [place] [address] Monocytes (Bld) [#/Vol] 1.1 10*3/uL Critically high 0.2-0.8 [facility] [place] Comment on above: Performed By: #### C BCWD #### [facility] [place] [address] [place] [address] Monocytes/100 WBC (Bld) 8.5 % Normal [facility] [place] Comment on above: Performed By: #### C BCWD #### [facility] [place] [address] [place] [address] Neutrophils (Bld) [#/Vol] 7.1 10*3/uL Critically high 1.4-6.5 [facility] [place] Comment on above: Performed By: #### C BCWD #### [facility] [place] [address] [place] [address] Neutrophils/100 WBC (Bld) 54.3 % Normal [facility] [place] Comment on above: Performed By: #### C BCWD #### [facility] [place] [address] [place] [address] Platelets (Bld) [#/Vol] 312 10*3/uL Normal 130-400 [facility] [place] Comment on above: Performed By: #### C BCWD #### [facility] [place] [address] [place] [address] RBC (Bld) [#/Vol] 5.16 10*6/uL Normal 4.70-6.10 [facility] [place] Comment on above: Performed By: #### C BCWD #### [facility] [place] [address] [place] [address] WBC (Bld) [#/Vol] 13.0 10*3/uL Critically high 4.8-10.8 [facility] [place] Comment on above: Performed By: #### C BCWD #### [facility] [place] [address] [place] [address] CT KIDNEY WO CONTRASTon 05-0 CT KIDNEY [...] Smith Bullock MD 07/14/24 Final result Normal [facility] [place] CT Kidney WO contraston 05-0 Radiology Study observation (narrative) [facility] Comprehensive Metabolic Pane ashok 07-13-2024 Albumin [Mass/Vol] 4.7 g/dL Critically high 3.5-4.6 M [facility] Comment on above: Performed By: #### L ACID #### [facility] [place] [address] [place] [address] ALP [Catalytic activity/Vol] 81 U/L Normal 35-104 [facility] [place] Comment on above: Performed By: #### L ACID #### [facility] [place] [address] [place] [address] ALT [Catalytic activity/Vol] 32 U/L Normal 0-41 [facility] [place] Comment on above: Performed By: #### L ACID #### [facility] [place] [address] [place] [address] Anion gap [Moles/Vol] 12 mmol/L Normal 9-15 [facility] [place] Comment on above: Performed By: #### L ACID #### [facility] [place] [address] [place] [address] AST [Catalytic activity/Vol] 22 U/L Normal 0-40 [facility] [place] Comment on above: Performed By: #### L ACID #### [facility] [place] [address] [place] [address] Bilirubin [Mass/Vol] mg/dL Normal 0.2-0.7 [facility] [place] Comment on above: Performed By: #### L ACID #### [facility] [place] [address] [place] [address] Calcium [Mass/Vol] 9.6 mg/dL Normal 8.5-9.9 [facility] [place] Comment on above: Performed By: #### L ACID #### [facility] [place] [address] [place] [address] Chloride [Moles/Vol] 99 mmol/L Normal 95-107 [facility] [place] Comment on above: Performed By: #### L ACID #### [facility] [place] [address] [place] [address] CO2 [Moles/Vol] 28 mmol/L Normal 20-31 [facility] [place] Comment on above: Performed By: #### L ACID #### [facility] [place] [address] [place] [address] Creatinine [Mass/Vol] 1.08 mg/dL Normal 0.70-1.20 [facility] [place] Comment on above: Performed By: #### L ACID #### [facility] [place] [address] [place] [address] GFR 87.4 Normal >60 [facility] [place] Comment on above: Result Comment: Pedi atric [...] secretion. Performed By: #### L ACID #### [facility] [place] [address] [place] [address] Globulin (S) [Mass/Vol] 3.2 g/dL Normal 2.3-3.5 [facility] [place] Comment on above: Performed By: #### L ACID #### [facility] [place] [address] [place] [address] Glucose [Mass/Vol] 87 mg/dL Normal 70-99 [facility] [place] Comment on above: Performed By: #### L ACID #### [facility] [place] [address] [place] [address] Potassium [Moles/Vol] 4.2 mmol/L Normal 3.4-4.9 [facility] [place] Comment on above: Performed By: #### L ACID #### [facility] [place] [address] [place] [address] Protein [Mass/Vol] 7.9 g/dL Normal 6.3-8.0 [facility] [place] Comment on above: Performed By: #### L ACID #### [facility] [place] [address] [place] [address] Sodium [Moles/Vol] 139 mmol/L Normal 135-144 [facility] [place] Comment on above: Performed By: #### L ACID #### [facility] [place] [address] [place] [address] Urea nitrogen [Mass/Vol] 25 mg/dL Critically high 6-20 [facility] [place] Comment on above: Performed By: #### L ACID #### [facility] [place] [address] [place] [address] Comprehensive metabolic 2000 panelon 07-13-2024 Albumin [Mass/Vol] 4.7 g/dL High 3.5 - 4.6 g/dL [facility] ALP [Catalytic activity/Vol] 81 U/L 35 - 104 U/L [facility] ALT [Catalytic activity/Vol] 32 U/L 0 - 41 U/L [facility] Anion gap [Moles/Vol] 12 mmol/L [facility] AST [Catalytic activity/Vol] 22 U/L 0 - 40 U/L [facility] Bilirubin [Mass/Vol] mg/dL 0.2 - 0.7 mg/dL [facility] Calcium [Mass/Vol] 9.6 mg/dL 8.5 - 9.9 mg/dL [facility] Chloride [Moles/Vol] 99 mmol/L [facility] CO2 [Moles/Vol] 28 mmol/L [facility] Creatinine [Mass/Vol] 1.08 mg/dL 0.70 - 1.20 mg/dL [facility] GFR/1.73 sq M.predicted among non-blacks MDRD (S/P/Bld) [Vol rate/Area] 87.4 mL/min/{1.73_m2} 60 - PINF [facility] Comment on above: Pediatric calculator link https://www.kidney.org/professionals/kdoqi/gfr_calculatorped [...] [Mass/Vol] 3.2 g/dL 2.3 - 3.5 g/dL [facility] Glucose [Mass/Vol] 87 mg/dL 70 - 99 mg/dL [facility] Interpretation and review of laboratory results Abnormal [facility] Potassium [Moles/Vol] 4.2 mmol/L [facility] Protein [Mass/Vol] 7.9 g/dL 6.3 - 8.0 g/dL [facility] Sodium [Moles/Vol] 139 mmol/L [facility] Urea nitrogen [Mass/Vol] 25 mg/dL High 6 - 20 mg/dL [facility] Lactate (BldV) [Moles/Vol]on 07-13-2024 [facility] Lactic Acidon 07-13-2024 Lactate (BldV) [Moles/Vol] 1.3 mmol/L 0.5 - 2.2 mmol/L [facility] Lactate [Moles/Vol] 1.3 mmol/L Normal 0.5-2.2 [facility] [place] Comment on above: Performed By: #### L ACID #### [facility] [place] [address] [place] [address] Procalcitoninon 07-13-2024 Procalcitonin IA [Mass/Vol] 0.03 ng/mL 0.00 - 0.15 ng/mL [facility] Comment on above: Suspected Sepsis: Low likelihood [...] to determine the patient's Mortality Risk Prognosis ([email or web address]-iis-ywohtwbwjf.com) In healthy neonates, plasma Procalcitonin (PCT) concentrations increase gradually after , reaching peak values at about 24 hours of age then decrease to normal values below 0.5 ng/mL by 48-72 hours of age. Procalcitonin 0.03 ng/mL Normal 0.00-0.15 [facility] [place] Comment on above: Result Comment: Susp ected [...] to determine the patient's Mortality Risk Prognosis ([email or web address]-amt-[email or web address] BV) In healthy neonates, plasma Procalcitonin (PCT) concentrations increase gradually after , reaching peak values at about 24 hours of age then decrease to normal values below 0.5 ng/mL by 48-72 hours of age. Performed By: #### P ROCT #### [facility] [place] [address] [place] [address] Procalcitonin IA [Mass/Vol]o n 07-13-2024 [facility] XR CERVICAL SPINE 2-3 VIEWSo n 06-06-2024 XR CERVICAL SPINE 2-3 VIEWS Interpreted By: Sha Foster, STUDY: XR CERVICAL SPINE 2-3 VIEWS; 06/06/2024 11:08 am INDICATION: Signs/Symptoms:Pain. ACCESSION NUMBER(S): [id number] ORDERING CLINICIAN: SHA FOSTER FINDINGS: AP lateral [...] Sha Foster 06/06/2024 3:56 PM Dictation workstation: [id number] [facility] XR Cervical spine 2 or 3 Vie wson 06-06-2024 Interpreted By: Sha Chacon, STUDY: XR CERVICAL SPINE 2-3 VIEWS; 06/06/2024 11:08 am INDICATION: Signs/Symptoms:Pain. ACCESSION NUMBER(S): [id number] ORDERING CLINICIAN: SHA FOSTER FINDINGS: AP lateral [...] Sha Foster 06/06/2024 3:56 PM Dictation workstation: [id number] Sha Foster MD - 06/06/2024 Interpreted By: Sha Foster, STUDY: XR CERVICAL SPINE 2-3 VIEWS; 06/06/2024 11:08 am INDICATION: Signs/Symptoms:Pain. ACCESSION NUMBER(S): [id number] ORDERING CLINICIAN: SHA FOSTER FINDINGS: AP lateral [...] Sha Foster 06/06/2024 3:56 PM Dictation workstation: [id number] [facility] Work Phone: [facility] Work Phone: Radiology Study observation (narrative) [facility] Work Phone: CT CERVICAL SPINE WO CONTRAS [...] Dorothy Cruz MD 05/19/24 Final result Normal [facility] [place] CT Cervical spine WO armando ton 05-19-2024 No acute abnormality of the cervical spine. [facility] EXAMINATION: CT OF THE CERVICAL SPINE [...] There is no prevertebral soft tissue swelling. [facility] Dorothy Cruz MD - 05/19/2024 EXAMINATION: [...] No acute abnormality of the cervical spine. [facility] CT Cervical spine WO contras tOrdered By: Dorothy Cruz on 05-19-2024 [facility] Work Phone: CT LUMBAR SPINE WO CONTRASTo [...] and L5-S1, with vacuum phenomenon. There is otyr-rn-yricnsgq bilateral neural foraminal stenosis at these levels. SOFT TISSUES/RETROPERITONEUM: No paraspinal mass is seen. IMPRESSION: 1. No acute osseous abnormality of the lumbar spine. 2. Degenerative disc disease at L4-L5 and L5-S1. Interpreted by: Dorothy Cruz MD Signed by: Dorothy Cruz MD 05/19/24 Final result Normal [facility] [place] CT Lumbar spine WO contrasto n 05-19-2024 1. No acute osseous abnormality of the lumbar spine. 2. Degenerative disc disease at L4-L5 and L5-S1. [facility] EXAMINATION: CT OF THE LUMBAR SPINE [...] and L5-S1, with vacuum phenomenon. There is tvlh-zr-ltobxfkk bilateral neural foraminal stenosis at these levels. SOFT TISSUES/RETROPERITONEUM: No paraspinal mass is seen. [facility] Dorothy Cruz MD - 05/19/2024 EXAMINATION: [...] and L5-S1, with vacuum phenomenon. There is ovlw-cp-oowfvqhe bilateral neural foraminal stenosis at these levels. SOFT TISSUES/RETROPERITONEUM: No paraspinal mass is seen. IMPRESSION: 1. No acute osseous abnormality of the lumbar spine. 2. Degenerative disc disease at L4-L5 and L5-S1. [facility] No Panel Informationon 05-19 Radiology Study observation (narrative) [facility] XR HIP 2-3 VW W PELVIS LEFTo [...] Jonnathan Liz MD 05/18/24 Final result Normal [facility] [place] XR Pelvis and Hip - left 2 V iewson 05-18-2024 Normal radiographs o f the left hip and pelvis. [facility] EXAMINATION: ONE XRAY VIEW OF THE [...] appearance. The bowel gas pattern is unremarkable. [facility] Jonnathan Liz MD - 05/18/2024 EXAMINATION: [...] radiographs of the left hip and pelvis. [facility] Radiology Study observation (narrative) [facility] XR Pelvis and Hip - left 2 V iewsOrdered By: Jonnathan Liz on 05-18-2024 [facility] Work Phone: XR CERVICAL SPINE 2-3 VIEWSo n 03-07-2024 XR CERVICAL SPINE 2-3 VIEWS Interpreted By: Sha Foster, STUDY: XR CERVICAL SPINE 2-3 VIEWS; 03/07/2024 10:52 am INDICATION: Signs/Symptoms:neck pain. ACCESSION NUMBER(S): [id number] ORDERING CLINICIAN: SHA FOSTER FINDINGS: AP lateral [...] Sha Foster 03/07/2024 11:17 AM Dictation workstation: [id number] [facility] XR Cervical spine 2 or 3 Vie wson 03-07-2024 Interpreted By: Sha Chacon, STUDY: XR CERVICAL SPINE 2-3 VIEWS; 03/07/2024 10:52 am INDICATION: Signs/Symptoms:neck pain. ACCESSION NUMBER(S): [id number] ORDERING CLINICIAN: SHA FOSTER FINDINGS: AP lateral [...] Sha Foster 03/07/2024 11:17 AM Dictation workstation: [id number] Sha Foster MD - 03/07/2024 Interpreted By: Sha Foster, STUDY: XR CERVICAL SPINE 2-3 VIEWS; 03/07/2024 10:52 am INDICATION: Signs/Symptoms:neck pain. ACCESSION NUMBER(S): [id number] ORDERING CLINICIAN: SHA FOSTER FINDINGS: AP lateral [...] Sha Foster 03/07/2024 11:17 AM Dictation workstation: [id number] [facility] Work Phone: [facility] Work Phone: Radiology Study observation (narrative) [facility] Work Phone: Basic metabolic 2000 panelon 02-26-2024 Anion gap [Moles/Vol] 10 mmol/L 10 - 20 mmol/L [facility] Calcium [Mass/Vol] 8.9 mg/dL 8.6 - 10. 3 mg/dL [facility] Chloride [Moles/Vol] 102 mmol/L 98 - 107 mmol/L [facility] CO2 [Moles/Vol] 30 mmol/L 21 - 32 mmol/L [facility] Creatinine [Mass/Vol] 1.04 mg/dL 0.50 - 1.30 mg/dL [facility] eGFR - PINF [facility] Comment on above: Calculations of katie mated GFR are performed using the 2020 CKD-EPI Study Refit equation without the race variable for the IDMS-Traceable creatinine methods. https://jasn.asnjournals.org/content//ASN.769016965 8 Glucose [Mass/Vol] 124 mg/dL High 74 - 99 mg/dL [facility] Interpretation and review of laboratory results Abnormal [facility] Potassium [Moles/Vol] 4.2 mmol/L 3.5 - 5.3 mmol/L [facility] Sodium [Moles/Vol] 138 mmol/L 136 - 145 mmol/L [facility] Urea nitrogen [Mass/Vol] 11 mg/dL 6 - 23 mg/dL [facility] Anion gap [Moles/Vol] 10 mmol/L Normal 10-20 [facility] Comment on above: Performed By: #### 2 4323-8 #### ESTELITA LARKIN ([id number]) [facility] ([facility]) [address] [place] [address] 35620 Calcium [Mass/Vol] 8.9 mg/dL Normal 8.6-10.3 [facility] Comment on above: Performed By: #### 2 4323-8 #### ESTELITA LARKIN ([id number]) [facility]) [address] [place] [address] 73762 Chloride [Moles/Vol] 102 mmol/L Normal 98-107 [facility] Comment on above: Performed By: #### 2 4323-8 #### ESTELITA LARKIN ([id number]) [facility]) [address] [place] [address] 61649 CO2 [Moles/Vol] 30 mmol/L Normal 21-32 [facility] Comment on above: Performed By: #### 2 4323-8 #### ESTELITA LARKIN ([id number]) [facility]) [address] [place] [address] 38293 Creatinine [Mass/Vol] 1.04 mg/dL Normal 0.50-1.30 [facility] Comment on above: Performed By: #### 2 4323-8 #### ESTELITA LARKIN ([id number]) [facility]) [address] [place] [address] 49392 GFR/1.73 sq M.predicted MDRD (S/P/Bld) [Vol rate/Area] mL/min/{1.73_m2} Normal >60 [facility] Comment on above: Result Comment: Calc ulations of estimated GFR are performed using the 2020 CKD-EPI Study Refit equation without the race variable for the IDMS-Traceable creatinine methods. https://jasn.asnjournals.org/content/early/ASN.923451687 8 Performed By: #### 2 4323-8 #### ESTELITA LARKIN ([id number]) [facility]) [address] [place] [address] 11587 Glucose [Mass/Vol] 124 mg/dL High 74-99 [facility] Comment on above: Performed By: #### 2 4323-8 #### ESTELITA LARKIN ([id number]) [facility]) [address] [place] [address] 79943 Potassium [Moles/Vol] 4.2 mmol/L Normal 3.5-5.3 [facility] Comment on above: Performed By: #### 2 4323-8 #### ESTELITA LARKIN ([id number]) [facility]) [address] [place] [address] 22413 Sodium [Moles/Vol] 138 mmol/L Normal 136-145 [facility] Comment on above: Performed By: #### 2 4323-8 #### ESTELITA LARKIN ([id number]) [facility]) [address] [place] [address] 24362 Urea nitrogen [Mass/Vol] 11 mg/dL Normal 6-23 [facility] Comment on above: Performed By: #### 2 4323-8 #### ESTELITA LARKIN ([id number]) [facility]) [address] [place] [address] 78042 CBC panel Auto (Bld)on 02-25 Erythrocyte distribution width (RBC) [Ratio] 11.9 % 11.5 - 14.5 % [facility] Hematocrit (Bld) [Volume fraction] 40.5 % Low 41.0 - 52.0 % [facility] Hemoglobin (Bld) [Mass/Vol] 13.2 g/dL Low 13.5 - 17.5 g/dL [facility] Interpretation and review of laboratory results Abnormal [facility] MCH (RBC) [Entitic mass] 31.8 pg 26.0 - 34.0 pg [facility] MCHC (RBC) [Mass/Vol] 32.6 g/dL 32.0 - 36.0 g/dL [facility] MCV (RBC) [Entitic vol] 98 fL 80 - 100 fL [facility] Nucleated RBC/100 WBC (Bld) [Ratio] 0 % [facility] Platelets (Bld) [#/Vol] 267 10*3/uL [facility] RBC (Bld) [#/Vol] 4.15 10*6/uL Low [facility] WBC (Bld) [#/Vol] 9.6 10*3/uL [facility] Erythrocyte distribution width (RBC) [Ratio] 11.9 % Normal 11.5-14.5 [facility] Comment on above: Performed By: #### 5 902-2 #### ESTELITA LARKIN ([id number]) [facility]) [address] [place] [address] Hematocrit (Bld) [Volume fraction] 40.5 % Low 41.0-52.0 [facility] Comment on above: Performed By: #### 5 902-2 #### ESTELITA LARKIN ([id number]) [facility]) [address] [place] [address] Hemoglobin (Bld) [Mass/Vol] 13.2 g/dL Low 13.5-17.5 [facility] Comment on above: Performed By: #### 5 902-2 #### ESTELITA LARKIN ([id number]) [facility]) [address] [place] [address] 19652 MCH (RBC) [Entitic mass] 31.8 pg Normal 26.0-34.0 [facility] Comment on above: Performed By: #### 5 902-2 #### ESTELITA LARKIN ([id number]) [facility]) [address] [place] [address] 55762 MCHC (RBC) [Mass/Vol] 32.6 g/dL Normal 32.0-36.0 [facility] Comment on above: Performed By: #### 5 902-2 #### ESTELITA LARKIN ([id number]) [facility]) [address] [place] [address] 27444 MCV (RBC) [Entitic vol] 98 fL Normal 80-100 [facility] Comment on above: Performed By: #### 5 902-2 #### ESTELITA LARKIN ([id number]) [facility]) [address] [place] [address] 54839 Nucleated RBC/100 WBC (Bld) [Ratio] 0.0 /100 WBCs Normal 0.0-0.0 [facility] Comment on above: Performed By: #### 5 902-2 #### ESTELITA LARKIN ([id number]) [facility]) [address] [place] [address] 98217 Platelets (Bld) [#/Vol] 267 x10*3/uL Normal 150-450 [facility] Comment on above: Performed By: #### 5 902-2 #### ESTELITA LARKIN ([id number]) [facility]) [address] [place] [address] 56520 RBC (Bld) [#/Vol] 4.15 x10*6/uL Low 4.50-5.90 [facility] Comment on above: Performed By: #### 5 902-2 #### ESTELITA LARKIN ([id number]) [facility]) [address] [place] [address] WBC (Bld) [#/Vol] 9.6 x10*3/uL Normal 4.4-11.3 [facility] Comment on above: Performed By: #### 5 902-2 #### ESTELITA LARKIN ([id number]) [facility] [address] [place] [address] Bacteria identified Cx Nom ( Unsp spec)Ordered By: Radha Joyner on 02-25-2024 Interpretation and review of laboratory results Abnormal [facility] Microscopic observation Gram stain Nom (Unsp spec) (2+) Few Polymorphonuclear leukocytes Abnormal [facility] Microscopic observation Gram stain Nom (Unsp spec) Positive Abnormal [facility] Basic metabolic 2000 panelon 02-25-2024 Anion gap [Moles/Vol] 14 mmol/L 10 - 20 mmol/L [facility] Calcium [Mass/Vol] 8.7 mg/dL 8.6 - 10. 3 mg/dL [facility] Chloride [Moles/Vol] 99 mmol/L 98 - 107 mmol/L [facility] CO2 [Moles/Vol] 25 mmol/L 21 - 32 mmol/L [facility] Creatinine [Mass/Vol] 1.15 mg/dL 0.50 - 1.30 mg/dL [facility] GFR/1.73 sq M.predicted among non-blacks MDRD (S/P/Bld) [Vol rate/Area] 81 mL/min/{1.73_m2} - PINF [facility] Comment on above: Calculations of katie mated GFR are performed using the 2020 CKD-EPI Study Refit equation without the race variable for the IDMS-Traceable creatinine methods. https://jasn.asnjournals.org/content//ASN.567802914 8 Glucose [Mass/Vol] 176 mg/dL High 74 - 99 mg/dL [facility] Interpretation and review of laboratory results Abnormal [facility] Potassium [Moles/Vol] 4 mmol/L 3.5 - 5.3 mmol/L [facility] Sodium [Moles/Vol] 134 mmol/L Low 136 - 145 mmol/L [facility] Urea nitrogen [Mass/Vol] 17 mg/dL 6 - 23 mg/dL [facility] Anion gap [Moles/Vol] 14 mmol/L Normal 10-20 [facility] Comment on above: Performed By: #### 5 902-2 #### ESTELITA LRAKIN ([id number]) [facility]) [address] [place] [address] 29631 Calcium [Mass/Vol] 8.7 mg/dL Normal 8.6-10.3 [facility] Comment on above: Performed By: #### 5 902-2 #### ESTELITA LARKIN ([id number]) [facility]) [address] [place] [address] 56465 Chloride [Moles/Vol] 99 mmol/L Normal 98-107 [facility] Comment on above: Performed By: #### 5 902-2 #### ESTELITA LARKIN ([id number]) [facility]) [address] [place] [address] 08729 CO2 [Moles/Vol] 25 mmol/L Normal 21-32 [facility] Comment on above: Performed By: #### 5 902-2 #### ESTELITA LARKIN ([id number]) [facility]) [address] [place] [address] 35551 Creatinine [Mass/Vol] 1.15 mg/dL Normal 0.50-1.30 [facility] Comment on above: Performed By: #### 5 902-2 #### ESTELITA LARKIN ([id number]) [facility]) [address] [place] [address] 05605 Glomerular filtration rate/1.73 sq M.predicted 81 mL/min/1.73m*2 Normal >60 [facility] Comment on above: Result Comment: Calc ulations of estimated GFR are performed using the 2020 CKD-EPI Study Refit equation without the race variable for the IDMS-Traceable creatinine methods. https://jasn.asnjournals.org/content//ASN.567032103 8 Performed By: #### 5 902-2 #### ESTELITA LARKIN ([id number]) [facility]) [address] [place] [address] 72197 Glucose [Mass/Vol] 176 mg/dL High 74-99 [facility] Comment on above: Performed By: #### 5 902-2 #### ESTELITA LARKIN ([id number]) [facility]) [address] [place] [address] 80607 Potassium [Moles/Vol] 4.0 mmol/L Normal 3.5-5.3 [facility] Comment on above: Performed By: #### 5 902-2 #### ESTELITA LARKIN ([id number]) [facility]) [address] [place] [address] 32281 Sodium [Moles/Vol] 134 mmol/L Low 136-145 [facility] Comment on above: Performed By: #### 5 902-2 #### ESTELITA LARKIN ([id number]) [facility]) [address] [place] [address] 51504 Urea nitrogen [Mass/Vol] 17 mg/dL Normal 6-23 [facility] Comment on above: Performed By: #### 5 902-2 #### ESTELITA LARKIN ([id number]) [facility]) [address] [place] [address] 08560 CBC panel Auto (Bld)on 02-24 Erythrocyte distribution width (RBC) [Ratio] 11.5 % 11.5 - 14.5 % [facility] Hematocrit (Bld) [Volume fraction] 38.4 % Low 41.0 - 52.0 % [facility] Hemoglobin (Bld) [Mass/Vol] 13.1 g/dL Low 13.5 - 17.5 g/dL [facility] Interpretation and review of laboratory results Abnormal [facility] MCH (RBC) [Entitic mass] 32.3 pg 26.0 - 34.0 pg [facility] MCHC (RBC) [Mass/Vol] 34.1 g/dL 32.0 - 36.0 g/dL [facility] MCV (RBC) [Entitic vol] 95 fL 80 - 100 fL [facility] Nucleated RBC/100 WBC (Bld) [Ratio] 0 % [facility] Platelets (Bld) [#/Vol] 261 10*3/uL [facility] RBC (Bld) [#/Vol] 4.05 10*6/uL Low [facility] WBC (Bld) [#/Vol] 15.5 10*3/uL High [facility] Erythrocyte distribution width (RBC) [Ratio] 11.5 % Normal 11.5-14.5 [facility] Comment on above: Performed By: #### 5 902-2 #### ESTELITA LARKIN ([id number]) [facility]) [address] [place] [address] 69537 Hematocrit (Bld) [Volume fraction] 38.4 % Low 41.0-52.0 [facility] Comment on above: Performed By: #### 5 902-2 #### ESTELITA LAKRIN ([id number]) [facility]) [address] [place] [address] 65694 Hemoglobin (Bld) [Mass/Vol] 13.1 g/dL Low 13.5-17.5 [facility] Comment on above: Performed By: #### 5 902-2 #### ESTELITA LARKIN ([id number]) [facility]) [address] [place] [address] 00720 MCH (RBC) [Entitic mass] 32.3 pg Normal 26.0-34.0 [facility] Comment on above: Performed By: #### 5 902-2 #### ESTELITA LARKIN ([id number]) [facility]) [address] [place] [address] 73160 MCHC (RBC) [Mass/Vol] 34.1 g/dL Normal 32.0-36.0 [facility] Comment on above: Performed By: #### 5 902-2 #### ESTELITA LARKIN ([id number]) [facility]) [address] [place] [address] 00511 MCV (RBC) [Entitic vol] 95 fL Normal 80-100 [facility] Comment on above: Performed By: #### 5 902-2 #### ESTELITA LARKIN ([id number]) [facility]) [address] [place] [address] Nucleated RBC/100 WBC (Bld) [Ratio] 0.0 /100 WBCs Normal 0.0-0.0 [facility] Comment on above: Performed By: #### 5 902-2 #### ESTELITA LARKIN ([id number]) [facility]) [address] [place] [address] 73276 Platelets (Bld) [#/Vol] 261 x10*3/uL Normal 150-450 [facility] Comment on above: Performed By: #### 5 902-2 #### ESTELITA LARKIN ([id number]) [facility] [address] [place] [address] RBC (Bld) [#/Vol] 4.05 x10*6/uL Low 4.50-5.90 [facility] Comment on above: Performed By: #### 5 902-2 #### ESTELIAT LARKIN ([id number]) [facility]) [address] [place] [address] 53815 WBC (Bld) [#/Vol] 15.5 x10*3/uL High 4.4-11.3 [facility] Comment on above: Performed By: #### 5 902-2 #### ESTELITA LARKIN ([id number]) [facility]) [address] [place] [address] 00326 No Panel Informationon 02-24 [facility] Tissue/Wound Culture/SmearOr dered By: Radha Joyner on 02-25-2024 Bacteria identified Cx Nom (Unsp spec) (4+) Abundant Methicillin Resistant Staphylococcus aureus (MRSA) Abnormal [facility] Comment on above: Methicillin (Oxacill in) resistant Staphylococci are resistant to all currently available Penicillins, Beta-lactam/Beta-lactamase inhibitor combinations (including Ampicillin/Sulbactam, Amoxicillin/Clavulanate and Pipercillin/Tazobactam), Carbapenems and Cephalosporins (except Ceftaroline). Vancomycinon 02-25-2024 Vancomycin [Mass/Vol] 13.7 ug/mL 5.0 - 20.0 ug/mL [facility] Vancomycin [Mass/Vol] 13.7 ug/mL Normal 5.0-20.0 [facility] Comment on above: Order Comment: Vanco mycin [...] By: #### 5 902-2 #### ESTELITA LARKIN ([id number]) [facility] [address] [place] [address] Vancomycin [Mass/Vol]on 02-12 Interpretation and review of laboratory results Normal [facility] Vancomycin levels can be monitored according to [...] 30.0-40.0 ug/mL Trough (all ages): 10.0-20.0 ug/mL [facility] Basic metabolic 2000 panelon 02-24-2024 Anion gap [Moles/Vol] 10 mmol/L 10 - 20 mmol/L [facility] Calcium [Mass/Vol] 8.8 mg/dL 8.6 - 10. 3 mg/dL [facility] Chloride [Moles/Vol] 104 mmol/L 98 - 107 mmol/L [facility] CO2 [Moles/Vol] 29 mmol/L 21 - 32 mmol/L [facility] Creatinine [Mass/Vol] 1.17 mg/dL 0.50 - 1.30 mg/dL [facility] GFR/1.73 sq M.predicted among non-blacks MDRD (S/P/Bld) [Vol rate/Area] 80 mL/min/{1.73_m2} - PINF [facility] Comment on above: Calculations of katie mated GFR are performed using the 2020 CKD-EPI Study Refit equation without the race variable for the IDMS-Traceable creatinine methods. https://jasn.asnjournals.org/content//ASN.454432025 8 Glucose [Mass/Vol] 108 mg/dL High 74 - 99 mg/dL [facility] Interpretation and review of laboratory results Abnormal [facility] Potassium [Moles/Vol] 3.9 mmol/L 3.5 - 5.3 mmol/L [facility] Sodium [Moles/Vol] 139 mmol/L 136 - 145 mmol/L [facility] Urea nitrogen [Mass/Vol] 13 mg/dL 6 - 23 mg/dL [facility] Anion gap [Moles/Vol] 10 mmol/L Normal 10-20 [facility] Comment on above: Order Comment: Savannah long obtain BMP on this date xxxxxx, call your PCP to review results/treatment plansThank you Performed By: #### 5 902-2 #### ESTELITA LARKIN ([id number]) [facility]) [address] [place] [address] 30811 Calcium [Mass/Vol] 8.8 mg/dL Normal 8.6-10.3 [facility] Comment on above: Order Comment: Savannah long obtain BMP on this date xxxxxx, call your PCP to review results/treatment plansThank you Performed By: #### 5 902-2 #### ESTELITA LARKIN ([id number]) [facility]) [address] [place] [address] 64010 Chloride [Moles/Vol] 104 mmol/L Normal 98-107 [facility] Comment on above: Order Comment: Savannah long obtain BMP on this date xxxxxx, call your PCP to review results/treatment plansThank you Performed By: #### 5 902-2 #### ESTELITA LARKIN ([id number]) [facility]) [address] [place] [address] 63516 CO2 [Moles/Vol] 29 mmol/L Normal 21-32 [facility] Comment on above: Order Comment: Savannah long obtain BMP on this date xxxxxx, call your PCP to review results/treatment plansThank you Performed By: #### 5 902-2 #### ESTELITA LARKIN ([id number]) [facility]) [address] [place] [address] 27203 Creatinine [Mass/Vol] 1.17 mg/dL Normal 0.50-1.30 [facility] Comment on above: Order Comment: Savannah long obtain BMP on this date xxxxxx, call your PCP to review results/treatment plansThank you Performed By: #### 5 902-2 #### ESTELITA LARKIN ([id number]) [facility]) [address] [place] [address] 34261 Glomerular filtration rate/1.73 sq M.predicted 80 mL/min/1.73m*2 Normal >60 [facility] Comment on above: Order Comment: Savannah long obtain BMP on this date xxxxxx, call your PCP to review results/treatment plansThank you Result Comment: Calc ulations of estimated GFR are performed using the 2020 CKD-EPI Study Refit equation without the race variable for the IDMS-Traceable creatinine methods. https://jasn.asnjournals.org/content//ASN.882493985 8 Performed By: #### 5 902-2 #### ESTELITA LARKIN ([id number]) [facility] [address] [place] [address] Glucose [Mass/Vol] 108 mg/dL High 74-99 [facility] Comment on above: Order Comment: Savannah long obtain BMP on this date xxxxxx, call your PCP to review results/treatment plansThank you Performed By: #### 5 902-2 #### ESTELITA LARKIN ([id number]) [facility]) [address] [place] [address] 98046 Potassium [Moles/Vol] 3.9 mmol/L Normal 3.5-5.3 [facility] Comment on above: Order Comment: Pleas e obtain BMP on this date xxxxxx, call your PCP to review results/treatment plansThank you Performed By: #### 5 902-2 #### ESTELITA LARKIN ([id number]) [facility]) [address] [place] [address] 10483 Sodium [Moles/Vol] 139 mmol/L Normal 136-145 [facility] Comment on above: Order Comment: Martinaas ethan obtain BMP on this date xxxxxx, call your PCP to review results/treatment plansThank you Performed By: #### 5 902-2 #### AVTARIBKARI LARKIN ([id number]) [facility]) [address] [place] [address] 36704 Urea nitrogen [Mass/Vol] 13 mg/dL Normal 6-23 [facility] Comment on above: Order Comment: Pleas e obtain BMP on this date xxxxxx, call your PCP to review results/treatment plansThank you Performed By: #### 5 902-2 #### ESTELITA LARKIN ([id number]) [facility] [address] [place] [address] 51833 CBC panel Auto (Bld)on 02-23 Erythrocyte distribution width (RBC) [Ratio] 11.6 % 11.5 - 14.5 % [facility] Hematocrit (Bld) [Volume fraction] 40.2 % Low 41.0 - 52.0 % [facility] Hemoglobin (Bld) [Mass/Vol] 13.3 g/dL Low 13.5 - 17.5 g/dL [facility] Interpretation and review of laboratory results Abnormal [facility] MCH (RBC) [Entitic mass] 32 pg 26.0 - 34.0 pg [facility] MCHC (RBC) [Mass/Vol] 33.1 g/dL 32.0 - 36.0 g/dL [facility] MCV (RBC) [Entitic vol] 97 fL 80 - 100 fL [facility] Nucleated RBC/100 WBC (Bld) [Ratio] 0 % [facility] Platelets (Bld) [#/Vol] 235 10*3/uL [facility] RBC (Bld) [#/Vol] 4.15 10*6/uL [facility] WBC (Bld) [#/Vol] 7.5 10*3/uL [facility] Erythrocyte distribution width (RBC) [Ratio] 11.6 % Normal 11.5-14.5 [facility] Comment on above: Performed By: #### 5 902-2 #### ESTELITA LARKIN ([id number]) [facility] ([facility]) [address] [place] [address] 85125 Hematocrit (Bld) [Volume fraction] 40.2 % Low 41.0-52.0 [facility] Comment on above: Performed By: #### 5 902-2 #### ESTELITA LARKIN ([id number]) [facility] ([facility]) [address] [place] [address] 98058 Hemoglobin (Bld) [Mass/Vol] 13.3 g/dL Low 13.5-17.5 [facility] Comment on above: Performed By: #### 5 902-2 #### ESTLEITA LARKIN ([id number]) [facility] ([facility]) [address] [place] [address] 38951 MCH (RBC) [Entitic mass] 32.0 pg Normal 26.0-34.0 [facility] Comment on above: Performed By: #### 5 902-2 #### ESTELITA LARKIN ([id number]) [facility] ([facility]) [address] [place] [address] 15748 MCHC (RBC) [Mass/Vol] 33.1 g/dL Normal 32.0-36.0 [facility] Comment on above: Performed By: #### 5 902-2 #### ESTELITA LARKIN ([id number]) [facility] ([facility]) [address] [place] [address] 14540 MCV (RBC) [Entitic vol] 97 fL Normal 80-100 [facility] Comment on above: Performed By: #### 5 902-2 #### ESTELITA LARKIN ([id number]) [facility] ([facility]) [address] [place] [address] 85162 Nucleated RBC/100 WBC (Bld) [Ratio] 0.0 /100 WBCs Normal 0.0-0.0 [facility] Comment on above: Performed By: #### 5 902-2 #### ESTELITA LARKIN ([id number]) [facility] ([facility]) [address] [place] [address] 43700 Platelets (Bld) [#/Vol] 235 x10*3/uL Normal 150-450 [facility] Comment on above: Performed By: #### 5 902-2 #### ESTELITA LARKIN ([id number]) [facility] ([facility]) [address] [place] [address] 58973 RBC (Bld) [#/Vol] 4.15 x10*6/uL Low 4.50-5.90 [facility] Comment on above: Performed By: #### 5 902-2 #### ESTELITA LARKIN ([id number]) [facility] ([facility]) [address] [place] [address] WBC (Bld) [#/Vol] 7.5 x10*3/uL Normal 4.4-11.3 [facility] Comment on above: Performed By: #### 5 902-2 #### ESTELITA [place] BANDAR ([id number]) [facility]) [address] [place] [address] FL FLUORO IMAGES NO CHARGEon 02-24-2024 FL FLUORO IMAGES NO CHARGE These images are not reportable by radiology and will not be interpreted by Radiologists. Normal [facility] OPERATIVE IMAGESon 4 OPERATIVE IMAGES Please see OpNote on Notes tab for findings. Normal [facility] Operative Imageson 4 Please see OpNote on Notes tab for findings. IMAGING Radiology Study observation (narrative) [facility] Work Phone: Operative ImagesOrdered By: Generic Optime on 02-24-2024 [facility] SST TOPon 02-24-2024 Extra Tube Hold for add-ons. [facility] Comment on above: Auto resulted. [facility] XR tomography Unspecified shamika dy regionon 02-24-2024 These images are not reportable by radiology and will not be interpreted by Radiologists. IMAGING Bacteria identifiedon 2023 Bacteria identified Cx Nom (Unsp spec) Test: Tissue/Wound Culture/Smear Specimen Source: Wound/Tissue Specimen Type: Tissue/Biopsy Specimen Date: 02/23/2024 0650 Result Date: 02/25/2024 0926 Result Status: Final result Abnormal: Yes Resulting Lab: [facility] [address] [facility] [address] CULTURE (4+) Abundant Methicillin Resistant Staphylococcus aureus [...] ug/ml Susceptible VANCOMYCIN 1.000 ug/ml Susceptible Abnormal [facility] Comment on above: Performed By: #### 5 902-2 #### ESTELITA LARKIN ([id number]) [facility] ([facility]) [address] [place] [address] 68626 ECG 12-LEADon 02-23-2024 ECG 12-LEAD Ventricular Rate 49 Atrial Rate 49 P-R Interval 156 QRS Duration 88 Q-T Interval 452 QTC Calculation(Bazett) 408 P [place] 38 R [place] 53 T [place] 48 QRS Count 8 Q Onset 224 P Onset 146 P Offset 202 T Offset 450 QTC Fredericia 422 Diagnosis Sinus bradycardia with sinus arrhythmia Otherwise normal ECG When compared with ECG of 16-OCT-2015 11:18, No significant change was found Confirmed by Kris Segovia ([id number]) on 02/27/2024 10:05:52 AM Normal [facility] Lavender Topon 02-23-2024 Extra Tube Hold for add-ons. [facility] Comment on above: Auto resulted. [facility] Vancomycinon 02-23-2024 Vancomycin [Mass/Vol] 7.9 ug/mL 5.0 - 20.0 ug/mL [facility] Vancomycin [Mass/Vol] 7.9 ug/mL Normal 5.0-20.0 [facility] Comment on above: Order Comment: Vanco mycin [...] By: #### 5 902-2 #### ESTELITA LARKIN ([id number]) [facility] ([facility]) [address] [place] [address] 73746 Vancomycin [Mass/Vol] 16.3 ug/mL 5.0 - 20.0 ug/mL [facility] Vancomycin [Mass/Vol] 16.3 ug/mL Normal 5.0-20.0 [facility] Comment on above: Order Comment: Vancomycin levels [...] By: #### 2 0578-1 #### ESTELITA LARKIN ([id number]) [facility] ([facility]) [address] [place] [address] 56982 Vancomycin [Mass/Vol]on 02-12 Interpretation and review of laboratory results Normal [facility] Vancomycin levels can be monitored according to [...] 30.0-40.0 ug/mL Trough (all ages): 10.0-20.0 ug/mL [facility] Interpretation and review of laboratory results Normal [facility] Vancomycin levels can be monitored according to [...] 30.0-40.0 ug/mL Trough (all ages): 10.0-20.0 ug/mL [facility] Bacteria identifiedon 2023 Bacteria identified Cx Nom (Bld) Test: Blood Culture Specimen Source: Peripheral Venipuncture Specimen Type: Blood culture Specimen Date: 02/22/20242035 Result Date: 02/27/20242 Result Status: Final result Abnormal: No Resulting Lab: [facility] [address] [place] [address] CULTURE No growth at 4 days - FINAL REPORT [facility] Comment on above: Performed By: #### 6 00-7 #### SERENE Sandra ([id number]) [facility] ([facility]) [address] [place] [address] Blood type and Indirect anti body screen panel (Bld)on 02-22-2024 ABO group Nom (Bld) A [facility] Blood group antibody screen Ql Negative [facility] D Ag Ql (Bld) Positive [facility] ABO group Nom (Bld) A [facility] Comment on above: Performed By: #### 3 4532-2 #### ESTELITA LARKIN ([id number]) [facility]) [address] [place] [address] [place] Blood group antibody screen Ql Negative Normal [facility] Comment on above: Performed By: #### 3 4532-2 #### ESTELITA VIOLETA PORTILLO ([id number]) [facility]) [address] [place] [address] [place] D Ag Ql (Bld) Positive Normal [facility] Comment on above: Performed By: #### 3 4532-2 #### ESTELITA MCDANIEL LAYA PORTILLO ([id number]) [facility]) [address] [place] [address] [place] C reactive proteinon 024 CRP [Mass/Vol] 1.16 mg/dL High <1.00 [facility] Comment on above: Performed By: #### 1 988-5 #### ESTELITA MCDANIEL LAYA PORTILLO ([id number]) [facility] ([facility]) [address] [place] [address] C-reactive proteinon 024 CRP [Mass/Vol] 1.16 mg/dL High NINF - 1.00 mg/dL [facility] CBC W Auto Differential pane l (Bld)on 02-22-2024 Basophils (Bld) [#/Vol] 0.05 10*3/uL [facility] Basophils/100 WBC (Bld) 0.4 % 0.0 - 2.0 % [facility] Eosinophils (Bld) [#/Vol] 0.21 10*3/uL [facility] Eosinophils/100 WBC (Bld) 1.6 % 0.0 - 6.0 % [facility] Erythrocyte distribution width (RBC) [Ratio] 11.7 % 11.5 - 14.5 % [facility] Hematocrit (Bld) [Volume fraction] 41.6 % 41.0 - 52.0 % [facility] Hemoglobin (Bld) [Mass/Vol] 14.3 g/dL 13.5 - 17.5 g/dL [facility] Immature granulocytes (Bld) [#/Vol] 0.06 10*3/uL [facility] Immature granulocytes/100 WBC (Bld) 0.5 % 0.0 - 0.9 % [facility] Comment on above: Immature Granulocyte Count (IG) includes promyelocytes, myelocytes and metamyelocytes but does not include bands. Percent differential counts (%) should be interpreted in the context of the absolute cell counts (cells/UL). Interpretation and review of laboratory results Abnormal [facility] Lymphocytes (Bld) [#/Vol] 2.31 10*3/uL [facility] Lymphocytes/100 WBC (Bld) 17.7 % 13.0 - 44.0 % [facility] MCH (RBC) [Entitic mass] 32.2 pg 26.0 - 34.0 pg [facility] MCHC (RBC) [Mass/Vol] 34.4 g/dL 32.0 - 36.0 g/dL [facility] MCV (RBC) [Entitic vol] 94 fL 80 - 100 fL [facility] Monocytes (Bld) [#/Vol] 0.95 10*3/uL [facility] Monocytes/100 WBC (Bld) 7.3 % 2.0 - 10.0 % [facility] Neutrophils (Bld) [#/Vol] 9.46 10*3/uL High [facility] Comment on above: Percent differential counts (%) should be interpreted in the context of the absolute cell counts (cells/uL). Neutrophils/100 WBC (Bld) 72.5 % 40.0 - 80.0 % [facility] Nucleated RBC/100 WBC (Bld) [Ratio] 0 % [facility] Platelets (Bld) [#/Vol] 262 10*3/uL [facility] RBC (Bld) [#/Vol] 4.44 10*6/uL Low [facility] WBC (Bld) [#/Vol] 13 10*3/uL [facility] Basophils (Bld) [#/Vol] 0.05 x10*3/uL Normal 0.00-0.10 [facility] Comment on above: Performed By: #### 5 7021-8 #### ESTELITA LARKIN ([id number]) [facility] ([facility]) [address] [place] [address] 04002 Basophils/100 WBC (Bld) 0.4 % Normal 0.0-2.0 [facility] Comment on above: Performed By: #### 5 7021-8 #### ESTELITA LARKIN ([id number]) [facility] ([facility]) [address] [place] [address] 70658 Eosinophils (Bld) [#/Vol] 0.21 x10*3/uL Normal 0.00-0.70 [facility] Comment on above: Performed By: #### 5 7021-8 #### ESTELITA LARKIN ([id number]) [facility] ([facility]) [address] [place] [address] 90493 Eosinophils/100 WBC (Bld) 1.6 % Normal 0.0-6.0 [facility] Comment on above: Performed By: #### 5 7021-8 #### ESTELITA LARKIN ([id number]) [facility] ([facility]) [address] [place] [address] 30689 Erythrocyte distribution width (RBC) [Ratio] 11.7 % Normal 11.5-14.5 [facility] Comment on above: Performed By: #### 5 7021-8 #### ESTELITA LARKIN ([id number]) [facility] ([facility]) [address] [place] [address] 24111 Hematocrit (Bld) [Volume fraction] 41.6 % Normal 41.0-52.0 [facility] Comment on above: Performed By: #### 5 7021-8 #### ESTELITA LARKIN ([id number]) [facility] ([facility]) [address] [place] [address] 79077 Hemoglobin (Bld) [Mass/Vol] 14.3 g/dL Normal 13.5-17.5 [facility] Comment on above: Performed By: #### 5 7021-8 #### ESTELITA LARKIN ([id number]) [facility] ([facility]) [address] [place] [address] 04994 Immature granulocytes (Bld) [#/Vol] 0.06 x10*3/uL Normal 0.00-0.70 [facility] Comment on above: Performed By: #### 5 7021-8 #### ESTELITA LARKIN ([id number]) [facility] ([facility]) [address] [place] [address] 40750 Immature granulocytes/100 WBC (Bld) 0.5 % Normal 0.0-0.9 [facility] Comment on above: Result Comment: Tamiko ture Granulocyte Count (IG) includes promyelocytes, myelocytes and metamyelocytes but does not include bands. Percent differential counts (%) should be interpreted in the context of the absolute cell counts (cells/UL). Performed By: #### 5 7021-8 #### ESTELITA LARKIN ([id number]) [facility] ([facility]) [address] [place] [address] 52336 Lymphocytes (Bld) [#/Vol] 2.31 x10*3/uL Normal 1.20-4.80 [facility] Comment on above: Performed By: #### 5 7021-8 #### ESTELITA LARKIN ([id number]) [facility] ([facility]) [address] [place] [address] 49610 Lymphocytes/100 WBC (Bld) 17.7 % Normal 13.0-44.0 [facility] Comment on above: Performed By: #### 5 7021-8 #### ESTELITA LARKIN ([id number]) [facility] ([facility]) [address] [place] [address] 35956 MCH (RBC) [Entitic mass] 32.2 pg Normal 26.0-34.0 [facility] Comment on above: Performed By: #### 5 7021-8 #### ESTELITA LARKIN ([id number]) [facility] ([facility]) [address] [place] [address] 43092 MCHC (RBC) [Mass/Vol] 34.4 g/dL Normal 32.0-36.0 [facility] Comment on above: Performed By: #### 5 7021-8 #### ESTELITA LARKIN ([id number]) [facility] ([facility]) [address] [place] [address] 13128 MCV (RBC) [Entitic vol] 94 fL Normal 80-100 [facility] Comment on above: Performed By: #### 5 7021-8 #### ESTELITA LARKIN ([id number]) [facility] ([facility]) [address] [place] [address] 64239 Monocytes (Bld) [#/Vol] 0.95 x10*3/uL Normal 0.10-1.00 [facility] Comment on above: Performed By: #### 5 7021-8 #### ESTELITA LARKIN ([id number]) [facility] ([facility]) [address] [place] [address] 52545 Monocytes/100 WBC (Bld) 7.3 % Normal 2.0-10.0 [facility] Comment on above: Performed By: #### 5 7021-8 #### ESTELITA LARKIN ([id number]) [facility] ([facility]) [address] [place] [address] 38871 Neutrophils (Bld) [#/Vol] 9.46 x10*3/uL High 1.20-7.70 [facility] Comment on above: Result Comment: Perc ent differential counts (%) should be interpreted in the context of the absolute cell counts (cells/uL). Performed By: #### 5 7021-8 #### ESTELITA LARKIN ([id number]) [facility] ([facility]) [address] [place] [address] 77039 Neutrophils/100 WBC (Bld) 72.5 % Normal 40.0-80.0 [facility] Comment on above: Performed By: #### 5 7021-8 #### ESTELITA MCDANIEL RIO BANDAR ([id number]) [facility] ([facility]) [address] [place] [address] 35429 Nucleated RBC/100 WBC (Bld) [Ratio] 0.0 /100 WBCs Normal 0.0-0.0 [facility] Comment on above: Performed By: #### 5 7021-8 #### ESTELITA MCDANIEL RIO BANDAR ([id number]) [facility] ([facility]) [address] [place] [address] 26596 Platelets (Bld) [#/Vol] 262 x10*3/uL Normal 150-450 [facility] Comment on above: Performed By: #### 5 7021-8 #### ESTELITA MCDANIEL RIO BANDAR ([id number]) [facility] ([facility]) [address] [place] [address] 58462 RBC (Bld) [#/Vol] 4.44 x10*6/uL Low 4.50-5.90 [facility] Comment on above: Performed By: #### 5 7021-8 #### ESTELITA MCDANIEL RIO BANDAR ([id number]) [facility] ([facility]) [address] [place] [address] 99049 WBC (Bld) [#/Vol] 13.0 x10*3/uL High 4.4-11.3 [facility] Comment on above: Performed By: #### 5 7021-8 #### ESTELITA VIOLETA [place] BANDAR ([id number]) [facility] ([facility]) [address] [place] [address] 52284 CRP [Mass/Vol]on 02-22-2024 Interpretation and review of laboratory results Abnormal [facility] CT CHEST W IV CONTRASTon CT CHEST W IV CONTRAST Interpreted By: Phillip Mojica, STUDY: CT CHEST W IV CONTRAST; 02/22/2024 10:18 pm INDICATION: Signs/Symptoms:multiple abscess to Left armpit. COMPARISON: None. ACCESSION NUMBER(S): [id number] ORDERING CLINICIAN: HALEY YATES TECHNIQUE: Contiguous axial [...] Phillip Mojica 02/22/2024 11:09 PM Dictation workstation: [id number] [facility] CT Chest W contrast Pee Multiple abscesses [...] Phillip Mojica 02/22/2024 11:09 PM Dictation workstation: [id number] MMODAL Interpreted By: Phillip Varner, STUDY: CT CHEST W IV CONTRAST; 02/22/2024 10:18 pm INDICATION: Signs/Symptoms:multiple abscess to Left armpit. COMPARISON: None. ACCESSION NUMBER(S): [id number] ORDERING CLINICIAN: HALEY YATES TECHNIQUE: Contiguous axial [...] to Left armpit. COMPARISON: None. ACCESSION NUMBER(S): [id number] ORDERING CLINICIAN: HALEY YATES TECHNIQUE: Contiguous axial [...] Fleischner Society 2017, Radiology. 2017 [place];284 (1):228-243.) [facility].[email or web address] Signed by: Phillip Mojica 02/22/2024 11:09 PM Dictation workstation: [id number] [facility] Work Phone: Radiology Study observation (narrative) [facility] Work Phone: CT Chest W contrast IVOrdere d By: Phillip Mojica on 02-22-2024 [facility] Work Phone: Coagulation tissue factor in ducedon 02-22-2024 PT Coag (PPP) [Time] 12.7 s Normal 9.8-12.8 [facility] Comment on above: Performed By: #### 5 902-2 #### ESTELITA LARKIN ([id number]) [facility] ([facility]) [address] [place] [address] 82509 Comprehensive metabolic 2000 panelon 02-22-2024 Albumin BCP dye [Mass/Vol] 4.4 g/dL 3.4 - 5.0 g/dL [facility] ALP [Catalytic activity/Vol] 69 U/L 33 - 120 U/L [facility] ALT With P-5'-P [Catalytic activity/Vol] 15 U/L 10 - 52 U/L [facility] Comment on above: Patients treated wit h Sulfasalazine may generate falsely decreased results for ALT. Anion gap [Moles/Vol] 12 mmol/L 10 - 20 mmol/L [facility] AST With P-5'-P [Catalytic activity/Vol] 11 U/L 9 - 39 U/L [facility] Bilirubin [Mass/Vol] 0.4 mg/dL 0.0 - 1.2 mg/dL [facility] Calcium [Mass/Vol] 9.2 mg/dL 8.6 - 10. 3 mg/dL [facility] Chloride [Moles/Vol] 103 mmol/L 98 - 107 mmol/L [facility] CO2 [Moles/Vol] 27 mmol/L 21 - 32 mmol/L [facility] Creatinine [Mass/Vol] 1.04 mg/dL 0.50 - 1.30 mg/dL [facility] eGFR - PINF [facility] Comment on above: Calculations of katie mated GFR are performed using the 2020 CKD-EPI Study Refit equation without the race variable for the IDMS-Traceable creatinine methods. https://jasn.asnjournals.org/content/early//ASN.453669085 8 Glucose [Mass/Vol] 100 mg/dL High 74 - 99 mg/dL [facility] Interpretation and review of laboratory results Abnormal [facility] Potassium [Moles/Vol] 3.9 mmol/L 3.5 - 5.3 mmol/L [facility] Protein [Mass/Vol] 7.4 g/dL 6.4 - 8.2 g/dL [facility] Sodium [Moles/Vol] 138 mmol/L 136 - 145 mmol/L [facility] Urea nitrogen [Mass/Vol] 20 mg/dL 6 - 23 mg/dL [facility] Albumin BCP dye [Mass/Vol] 4.4 g/dL Normal 3.4-5.0 [facility] Comment on above: Performed By: #### 2 4323-8 #### ESTELITA LARKIN ([id number]) [facility] ([facility]) [address] [place] [address] ALP [Catalytic activity/Vol] 69 U/L Normal 33-120 [facility] Comment on above: Performed By: #### 2 4323-8 #### ESTELITA LARKIN ([id number]) [facility] ([facility]) [address] [place] [address] ALT With P-5'-P [Catalytic activity/Vol] 15 U/L Normal 10-52 [facility] Comment on above: Result Comment: Elvi ents treated with Sulfasalazine may generate falsely decreased results for ALT. Performed By: #### 2 4323-8 #### ESTELITA LARKIN ([id number]) [facility] ([facility]) [address] [place] [address] 23460 Anion gap [Moles/Vol] 12 mmol/L Normal 10-20 [facility] Comment on above: Performed By: #### 2 4323-8 #### ESTELITA LARKIN ([id number]) [facility] ([facility]) [address] [place] [address] 63096 AST With P-5'-P [Catalytic activity/Vol] 11 U/L Normal 9-39 [facility] Comment on above: Performed By: #### 2 4323-8 #### ESTELITA LARKIN ([id number]) [facility] ([facility]) [address] [place] [address] 88088 Bilirubin [Mass/Vol] 0.4 mg/dL Normal 0.0-1.2 [facility] Comment on above: Performed By: #### 2 4323-8 #### ESTELITA LARKIN ([id number]) [facility]) [address] [place] [address] 43815 Calcium [Mass/Vol] 9.2 mg/dL Normal 8.6-10.3 [facility] Comment on above: Performed By: #### 2 4323-8 #### ESTELITA LARKIN ([id number]) [facility] ([facility]) [address] [place] [address] 29944 Chloride [Moles/Vol] 103 mmol/L Normal 98-107 [facility] Comment on above: Performed By: #### 2 4323-8 #### ESTELITA LARKIN ([id number]) [facility]) [address] [place] [address] CO2 [Moles/Vol] 27 mmol/L Normal 21-32 [facility] Comment on above: Performed By: #### 2 4323-8 #### ESTELITA LARKIN ([id number]) [facility]) [address] [place] [address] Creatinine [Mass/Vol] 1.04 mg/dL Normal 0.50-1.30 [facility] Comment on above: Performed By: #### 2 4323-8 #### ESTELITA LARKIN ([id number]) [facility]) [address] [place] [address] 48773 GFR/1.73 sq M.predicted MDRD (S/P/Bld) [Vol rate/Area] mL/min/{1.73_m2} Normal >60 [facility] Comment on above: Result Comment: Calc ulations of estimated GFR are performed using the 2020 CKD-EPI Study Refit equation without the race variable for the IDMS-Traceable creatinine methods. https://jasn.asnjournals.org/content//ASN.816452306 8 Performed By: #### 2 4323-8 #### ESTELITA LARKIN ([id number]) [facility]) [address] [place] [address] Glucose [Mass/Vol] 100 mg/dL High 74-99 [facility] Comment on above: Performed By: #### 2 4323-8 #### ESTELITA LARKIN ([id number]) [facility]) [address] [place] [address] Potassium [Moles/Vol] 3.9 mmol/L Normal 3.5-5.3 [facility] Comment on above: Performed By: #### 2 4323-8 #### ESTELITA LARKIN ([id number]) [facility]) [address] [place] [address] 59549 Protein [Mass/Vol] 7.4 g/dL Normal 6.4-8.2 [facility] Comment on above: Performed By: #### 2 4323-8 #### ESTELITA LARKIN ([id number]) [facility]) [address] [place] [address] 39489 Sodium [Moles/Vol] 138 mmol/L Normal 136-145 [facility] Comment on above: Performed By: #### 2 4323-8 #### ESTELITA LARKIN ([id number]) [facility]) [address] [place] [address] 20571 Urea nitrogen [Mass/Vol] 20 mg/dL Normal 6-23 [facility] Comment on above: Performed By: #### 2 4323-8 #### ESTELITA LARKIN ([id number]) [facility]) [address] [place] [address] 53406 ESR Westergren method (Bld) [Velocity]on 02-22-2024 ESR (Bld) [Velocity] 25 mm/h High 0 - 15 mm/h [facility] Interpretation and review of laboratory results Abnormal [facility] ESR (Bld) [Velocity] 25 mm/h High 0-15 [facility] Comment on above: Performed By: #### 4 [id number] #### ESTELITA LARKIN ([id number]) [facility] ([facility]) [address] [place] [id number] PT Coag (PPP) [Time]on 02-21 INR Coag (PPP) [Relative time] 1.1 {INR} 0.9 - 1.1 [facility] Interpretation and review of laboratory results Normal [facility] INR Coag (PPP) [Relative time] 1.1 Normal 0.9-1.1 [facility] Comment on above: Performed By: #### 5 [id number] #### ESTELITA LARKIN ([id number]) [facility] ([facility]) [address] [place] [id number] Protime-INRon 02-22-2024 PT Coag (PPP) [Time] 12.7 s [facility] SST TOPon 02-22-2024 Extra Tube Hold for add-ons. [facility] Comment on above: Auto resulted. [facility] MR CERVICAL SPINE WO IV CONT RASTon 02-17-2024 MR CERVICAL SPINE WO IV CONTRAST Interpreted By: Luana Lawson and Lawrence Austen STUDY: MR CERVICAL SPINE WO IV CONTRAST; MR LUMBAR SPINE W AND WO IV CONTRAST; MR THORACIC SPINE WO IV CONTRAST; 02/17/2024 7:08 pm; 02/17/2024 7:09 pm INDICATION: Signs/Symptoms:pain. ,M54.10 Radiculopathy, site unspecified COMPARISON: Radiograph 10/19/2017, MRI 08/17/2016. ACCESSION NUMBER(S): [id number]; [id number]; [id number] ORDERING CLINICIAN: SHA FOSTER TECHNIQUE: Sagittal T1, [...] and bilateral C6- (more content not included)... [facility] Comment on above: Order Comment: [facility] el [...] COMPARISON: Radiograph 10/19/2017, MRI 08/17/2016. ACCESSION NUMBER(S): [id number]; [id number]; [id number] ORDERING CLINICIAN: SHA FOSTER TECHNIQUE: Sagittal T1, [...] and bilateral C6- (more content not included)... [facility] Comment on above: Order Comment: QUINTIN TOLEDO MR THORACIC SPINE WO IV CONT [facility] 02-17-2024 MR THORACIC SPINE WO IV CONTRAST Interpreted By: Luana Lawson and Lawrence Austen STUDY: MR CERVICAL SPINE WO IV CONTRAST; MR LUMBAR SPINE W AND WO IV CONTRAST; MR THORACIC SPINE WO IV CONTRAST; 02/17/2024 7:08 pm; 02/17/2024 7:09 pm INDICATION: Signs/Symptoms:pain. ,M54.10 Radiculopathy, site unspecified COMPARISON: Radiograph 10/19/2017, MRI 08/17/2016. ACCESSION NUMBER(S): [id number]; [id number]; [id number] ORDERING CLINICIAN: SHA FOSTER TECHNIQUE: Sagittal T1, [...] and bilateral C6- (more content not included)... [facility] Comment on above: Order Comment: [facility] C-Reactive Proteinon 01-28- 024 CRP High sensitivity method [Mass/Vol] mg/L 0.0 - 5.0 mg/L [facility] CRP [Mass/Vol] mg/L Normal 0.0-5.0 [facility] [place] Comment on above: Performed By: #### C RP #### [facility] [place] [address] [place] [address] CBC W Auto Differential pane l (Bld)on 01-29-2024 Interpretation and review of laboratory results Abnormal [facility] MCHC (RBC) [Mass/Vol] 34.2 % 33.0 - 37.0 % [facility] Segmented neutrophils/100 WBC (Bld) 60.7 % [facility] CBC With Platelet and Differ entialon 01-29-2024 Basophils (Bld) [#/Vol] 0.1 10*3/uL Normal 0.0-0.2 [facility] Comment on above: Performed By: #### C BCWD #### [facility] [place] [address] [place] [address] Basophils/100 WBC (Bld) 0.5 % Normal [facility] Comment on above: Performed By: #### C BCWD #### [facility] [place] [address] [place] [address] Eosinophils (Bld) [#/Vol] 0.5 10*3/uL Normal 0.0-0.7 [facility] Comment on above: Performed By: #### C BCWD #### [facility] [place] [address] [place] [address] Eosinophils/100 WBC (Bld) 4.8 % Normal [facility] Comment on above: Performed By: #### C BCWD #### [facility] [place] [address] [place] [address] Erythrocyte distribution width (RBC) [Ratio] 12.6 % Normal 11.5-14.5 [facility] Comment on above: Performed By: #### C BCWD #### [facility] [place] [address] [place] [address] Hematocrit (Bld) [Volume fraction] 43.8 % Normal 42.0-52.0 [facility] Comment on above: Performed By: #### C BCWD #### [facility] [place] [address] [place] [address] Hemoglobin (Bld) [Mass/Vol] 15.0 g/dL Normal 14.0-18.0 [employer] Comment on above: Performed By: #### C BCWD #### [facility] [place] [address] [place] [address] Lymphocytes (Bld) [#/Vol] 2.4 10*3/uL Normal 1.0-4.8 [employer] [facility] Comment on above: Performed By: #### C BCWD #### [facility] [place] [address] [place] [address] Lymphocytes/100 WBC (Bld) 24.9 % Normal [facility] Comment on above: Performed By: #### C BCWD #### [facility] [place] [address] [place] [address] MCH (RBC) [Entitic mass] 32.7 pg Critically high 27.0-31.3 [facility] Comment on above: Performed By: #### C BCWD #### [facility] [place] [address] [place] [address] MCHC 34.2 % Normal 33.0-37.0 [facility] [place] Comment on above: Performed By: #### C BCWD #### [facility] [place] [address] [place] [address] MCV (RBC) [Entitic vol] 95.4 fL Critically high 79.0-92.[address] [facility] [employer] Comment on above: Performed By: #### C BCWD #### [facility] [place] [address] [place] [address] Monocytes (Bld) [#/Vol] 0.9 10*3/uL Critically high 0.2-0.8 [employer] Comment on above: Performed By: #### C BCWD #### [facility] [place] [address] [place] [address] Monocytes/100 WBC (Bld) 8.8 % Normal [facility] [employer] [facility] Comment on above: Performed By: #### C BCWD #### [facility] [place] [address] [place] [address] Neutrophils (Bld) [#/Vol] 5.9 10*3/uL Normal 1.4-6.5 [facility] Comment on above: Performed By: #### C BCWD #### [facility] [place] [address] [place] [address] Neutrophils/100 WBC (Bld) 60.7 % Normal [facility] [place] Comment on above: Performed By: #### C BCWD #### [facility] [place] [address] [place] [address] Platelets (Bld) [#/Vol] 316 10*3/uL Normal 130-400 [facility] Comment on above: Performed By: #### C BCWD #### [facility] [place] [address] [place] [address] RBC (Bld) [#/Vol] 4.59 10*6/uL Low 4.70-6.10 [facility] Comment on above: Performed By: #### C BCWD #### [facility] [place] [address] [place] [address] WBC (Bld) [#/Vol] 9.6 10*3/uL Normal 4.8-10.8 [facility] Comment on above: Performed By: #### C BCWD #### [facility] [place] [address] [place] [address] CRP High sensitivity method [Mass/Vol]on 01-29-2024 [facility] Comprehensive Metabolic Pane ashok 01-29-2024 Albumin [Mass/Vol] 3.9 g/dL Normal 3.5-4.6 [facility] [place] Comment on above: Performed By: #### C MP #### [facility] [place] [address] [place] [address] ALP [Catalytic activity/Vol] 62 U/L Normal 35-104 [facility] [place] Comment on above: Performed By: #### C MP #### [facility] [place] [address] [place] [address] ALT [Catalytic activity/Vol] 9 U/L Normal 0-41 [facility] [place] Comment on above: Performed By: #### C MP #### [facility] [place] [address] [place] [address] Anion gap [Moles/Vol] 8 mmol/L Low 9-15 [facility] [place] Comment on above: Performed By: #### C MP #### [facility] [place] [address] [place] [address] AST [Catalytic activity/Vol] 9 U/L Normal 0-40 [facility] [place] Comment on above: Performed By: #### C MP #### [facility] [place] [address] [place] [address] Bilirubin [Mass/Vol] mg/dL Normal 0.2-0.7 [facility] [place] Comment on above: Performed By: #### C MP #### [facility] [place] [address] [place] [address] Calcium [Mass/Vol] 8.8 mg/dL Normal 8.5-9.9 [facility] [place] Comment on above: Performed By: #### C MP #### [facility] [place] [address] [place] [address] Chloride [Moles/Vol] 105 mmol/L Normal 95-107 [facility] [place] Comment on above: Performed By: #### C MP #### [facility] [place] [address] [place] [address] CO2 [Moles/Vol] 27 mmol/L Normal 20-31 [facility] [place] Comment on above: Performed By: #### C MP #### [facility] [place] [address] [place] [address] Creatinine [Mass/Vol] 1.15 mg/dL Normal 0.70-1.20 [facility] [place] Comment on above: Performed By: #### C MP #### [facility] [place] [address] [place] [address] GFR 81.3 Normal >60 [facility] [place] Comment on above: Result Comment: Ricojarad niccic [...] secretion. Performed By: #### C MP #### [facility] [place] [address] [place] [address] Globulin (S) [Mass/Vol] 2.7 g/dL Normal 2.3-3.5 [facility] [place] Comment on above: Performed By: #### C MP #### [facility] [place] [address] [place] [address] Glucose [Mass/Vol] 85 mg/dL Normal 70-99 [facility] [place] Comment on above: Performed By: #### C MP #### [facility] [place] [address] [place] [address] Potassium [Moles/Vol] 4.0 mmol/L Normal 3.4-4.9 [facility] [place] Comment on above: Performed By: #### C MP #### [facility] [place] [address] [place] [address] Protein [Mass/Vol] 6.6 g/dL Normal 6.3-8.0 [facility] [place] Comment on above: Performed By: #### C MP #### [facility] [place] [address] [place] [address] Sodium [Moles/Vol] 140 mmol/L Normal 135-144 [facility] [place] Comment on above: Performed By: #### C MP #### [facility] [place] [address] [place] [address] Urea nitrogen [Mass/Vol] 20 mg/dL Normal 6-20 [facility] [place] Comment on above: Performed By: #### C #### [facility] [place] [address] [place] [address] Comprehensive metabolic 2000 panelon 01-29-2024 Albumin [Mass/Vol] 3.9 g/dL 3.5 - 4.6 g/dL [facility] ALP [Catalytic activity/Vol] 62 U/L 35 - 104 U/L [facility] ALT [Catalytic activity/Vol] 9 U/L 0 - 41 U/L [facility] Anion gap [Moles/Vol] 8 mmol/L Low [facility] AST [Catalytic activity/Vol] 9 U/L 0 - 40 U/L [facility] Bilirubin [Mass/Vol] mg/dL 0.2 - 0.7 mg/dL [facility] Calcium [Mass/Vol] 8.8 mg/dL 8.5 - 9.9 mg/dL [facility] Chloride [Moles/Vol] 105 mmol/L [facility] CO2 [Moles/Vol] 27 mmol/L [facility] Creatinine [Mass/Vol] 1.15 mg/dL 0.70 - 1.20 mg/dL [facility] GFR/1.73 sq M.predicted among non-blacks MDRD (S/P/Bld) [Vol rate/Area] 81.3 mL/min/{1.73_m2} 60 - PINF [facility] Comment on above: Pediatric calculator link https://www.kidney.org/professionals/kdoqi/gfr_calculatorped [...] [Mass/Vol] 2.7 g/dL 2.3 - 3.5 g/dL [facility] Glucose [Mass/Vol] 85 mg/dL 70 - 99 mg/dL [facility] Interpretation and review of laboratory results Abnormal [facility] Potassium [Moles/Vol] 4.0 mmol/L [facility] Protein [Mass/Vol] 6.6 g/dL 6.3 - 8.0 g/dL [facility] Sodium [Moles/Vol] 140 mmol/L [facility] Urea nitrogen [Mass/Vol] 20 mg/dL 6 - 20 mg/dL [facility] ESR Westergren method (Bld) [Velocity]on 01-29-2024 ESR (Bld) [Velocity] 7 mm 0 - 10 mm [facility] Comment on above: ESR Units mm/Hr [facility] Sedimentation Rateon 024 Sedimentation Rate 7 mm Normal 0-10 [facility] [place] Comment on above: Result Comment: ESR Units mm/Hr Performed By: #### E SR #### [facility] [place] [address] [place] [address] Urinalysis with Reflex to Cu ltureon 01-29-2024 Glucose Test strip (U) [Mass/Vol] Negative Negative mg/dL [facility] Interpretation and review of laboratory results Abnormal [facility] Ketones (U) [Mass/Vol] Negative Negative mg/dL [facility] Protein (U) [Mass/Vol] Negative Negative mg/dL [facility] Urine Reflex to Culture Not Indicated [facility] Urobilinogen Qn (U) 0.2 NINF [facility] Urinalysis, reflex to cultur stephen 01-29-2024 Bilirubin Ql (U) Negative Normal Negative [facility] Comment on above: Performed By: #### U AR #### [facility] [place] [address] [place] [id number] [phone] Clarity (U) TURBID Abnormal Clear [facility] Comment on above: Performed By: #### U AR #### [facility] [place] [address] [place] [address] [phone] Color (U) Yellow Normal Straw/Bleckley [facility] Comment on above: Performed By: #### U AR #### [facility] [place] [address] [place] [address] Glucose Ql (U) Negative Normal Negative [facility] [place] Comment on above: Performed By: #### U AR #### [facility] [place] [address] [place] [address] Hemoglobin Ql (U) Negative Normal Negative [facility] Comment on above: Performed By: #### U AR #### [facility] [place] [address] [place] [address] Ketones Ql (U) Negative Normal Negative [facility] [place] Comment on above: Performed By: #### U AR #### [facility] [place] [address] [place] [address] Leukocyte esterase Test strip Ql (U) Negative Normal Negative [facility] Comment on above: Performed By: #### U AR #### [facility] [place] [address] [place] [address] Nitrite Ql (U) Negative Normal Negative [facility] Comment on above: Performed By: #### U AR #### [facility] [place] [address] [place] [address] pH (U) 7.0 [pH] Normal 5.0-9.0 [facility] Comment on above: Performed By: #### U AR #### [facility] [place] [address] [place] [address] Protein Ql (U) Negative Normal Negative [facility] [place] Comment on above: Performed By: #### U AR #### [facility] [place] [address] [place] [address] Specific gravity (U) [Rel density] 1.022 Normal 1.005-1.03 [facility] Comment on above: Performed By: #### U AR #### [facility] [place] [address] [place] [address] Urine Reflexed to Culture Not Indicated Normal [facility] [place] Comment on above: Performed By: #### U AR #### [facility] [place] [address] [place] [address] Urobilinogen Qn (U) 0.2 {Bassam'U}/dL Normal < 2.0 [facility] [place] Comment on above: Performed By: #### U AR #### [facility] [place] [address] [place] [address] Emergency Department Summary on 01-20-2024 Emergency Department Summary [facility] Medical Records Department [address] [place] [address] Emergency Department Summary 01/20/24 MR#: [id number] Acct: [id number] Name: HARMAN JAMIL Rep #: [id number] : 1980 43 From: Kehinde Cota DO [...] states he has a spine surgeon and [facility] in [place]. Patient states he will make an appoint with them for next week. Patient was instructed to return if worse in any way. Patient understood and was agreeable with plan. All questions were answered. 01/20/24 1741 Cosigner Signature (if applicable): cc: Dr. Josafat Leonard DO * Signed HPI History of Present Illness Chief Complaint: Lower Extremity Injury [facility] Medical History ADHD Sciatica Cervical radiculopathy [...] pulsatile ab (more content not included)... Normal [facility] Spine Lumbar (Routine)on Spine Lumbar (Routine) [facility] Imaging Services [address], [place] [address] Spine Lumbar (Routine) MR#: [id number] Acct: [id number] Name: HARMAN JAMIL Rep #: [id number] : 1980 43 From: Tee Brand MD PCP: Dr. Josafat Leonard, Status: REG ER Study: Spine Lumbar (Routine) Date of Exam: 01/20/24 Exam# [id number] Ordering Dr: Kehinde Cota DO [id number] STUDY: MRI LUMBAR SPINE WITHOUT CONTRAST REASON [...] 16:47 EST Reading Location ID and State: [address] [place] [address] Tel , Service support , CC: Dr. Josafat Leonard DO; Dr. Kehinde Cota DO [employer]: Signed Normal [facility] Emergency Department Summary on 01-12-2024 Emergency Department Summary [facility] Medical Records Department [address] [place] [address] Emergency Department Summary 01/12/24 MR#: [id number] Acct: [id number] Name: HARMAN JAMIL Rep #: [id number] : 1980 43 From: Raghu Sadler DO [...] Negative for Weakness or Loss of Funtion [facility] Medical History ADHD Sciatica Cervical radiculopathy [...] x3, CN' (more content not included)... Normal [facility] Pelvis without IV Contraston 01-12-2024 Pelvis without IV Contrast [facility] Imaging Services [address], [place] [address] Pelvis without IV Contrast MR#: [id number] Acct: [id number] Name: HARMAN JAMIL Rep #: [id number] : 1980 M 43 From: Nia Barriga MD PCP: Dr. Josafat Leonard DO Status: REG ER Study: Pelvis without IV Contrast Date of Exam: 01/11 Exam# [id number] Ordering Dr: Raghu Sadler DO [id number] INDICATION: Hip pain EXAMINATION: CT PELVIS BONE [...] Raghu Sadler DO; Dr. Josafat Leonard DO [employer]: Signed Normal [facility] Spine Lumbar without Contras ton 01-12-2024 Spine Lumbar without Contrast [facility] Imaging Services [address] [place] [id number] Spine Lumbar without Contrast MR#: [id number] Acct: [id number] Name: HARMAN JAMIL Rep #: [id number] : 1980 M 43 From: Nia Barriga MD PCP: Dr. Josafat Leonard DO Status: [facility] ER Study: Spine Lumbar without Contrast Date of Exam: Exam# [id number] Ordering Dr: Raghu Sadler DO [id number] INDICATION: Back pain EXAMINATION: CT LUMBAR SPINE [...] CC: Dr. Raghu Sadler, DO; Dr. Josafat Lenoard, DO [employer]: Signed Normal [facility] Basic Metabolic Profile (BMP )on 01-04-2024 BUN/CRE 13.9 RATIO Normal - [facility] Comment on above: Performed By: #### L 501.6710, L500.2500, L100.0100, L101.9900, L503.6005, L501.5200 #### [facility] [address] [place], [address] CA,Total 9.4 mg/dL Normal 8.5-10.1 [facility] Comment on above: Performed By: #### L 501.6710, L500.2500, L100.0100, L101.9900, L503.6005, L501.5200 #### [facility] [address] [place], [address] Chloride [Moles/Vol] 99 mmol/L Normal 98-107 [facility] Comment on above: Performed By: #### L 501.6710, L500.2500, L100.0100, L101.9900, L503.6005, L501.5200 #### [facility] [address] [place], [address] CO2 [Moles/Vol] 32.0 mmol/L Normal 21.0-32.0 [facility] Comment on above: Performed By: #### L 501.6710, L500.2500, L100.0100, L101.9900, L503.6005, L501.5200 #### [facility] [address] [place], [address] Creatinine [Mass/Vol] 1.08 mg/dL Normal 0.70-1.30 [facility] Comment on above: Result Comment: The validity of the calculated GFR GFRAA in patients over 70 years has not been determined. Clinical correlation is essential. Performed By: #### L 501.6710, L500.2500, L100.0100, L101.9900, L503.6005, L501.5200 #### [facility] [address] [place], [address] ECRCL 100.70 ml/min Normal [facility] Comment on above: Performed By: #### L 501.6710, L500.2500, L100.0100, L101.9900, L503.6005, L501.5200 #### [facility] [address] [place], [address] EST GFR - AA 96 mL/min Normal >60 [facility] Comment on above: Result Comment: Afri can Tunisian GFR Calc Performed By: #### L 501.6710, L500.2500, L100.0100, L101.9900, L503.6005, L501.5200 #### [facility] [address] [place], [address] GAP 4 Low 5-15 [facility] Comment on above: Performed By: #### L 501.6710, L500.2500, L100.0100, L101.9900, L503.6005, L501.5200 #### [facility] [address] [place], [address] GFR/1.73 sq M.predicted among non-blacks MDRD (S/P/Bld) [Vol rate/Area] 80 mL/min/{1.73_m2} Normal >60 [facility] Comment on above: Result Comment: Non- GFR Calc Performed By: #### L 501.6710, L500.2500, L100.0100, L101.9900, L503.6005, L501.5200 #### [facility] [address] [place], [address] Glucose [Mass/Vol] 109 mg/dL High 74-106 [facility] Comment on above: Result Comment: Fast ing Glucose result from 100 to 125 mg/dL suggests IMPAIRED HOMEOSTASIS per A.D.A. criteria. Performed By: #### L 501.6710, L500.2500, L100.0100, L101.9900, L503.6005, L501.5200 #### [facility] [address] [place], [address] Potassium [Moles/Vol] 3.8 mmol/L Normal 3.5-5.1 [facility] Comment on above: Performed By: #### L 501.6710, L500.2500, L100.0100, L101.9900, L503.6005, L501.5200 #### [facility] [address] [place], [address] Sodium [Moles/Vol] 136 mmol/L Normal 136-145 [facility] Comment on above: Performed By: #### L 501.6710, L500.2500, L100.0100, L101.9900, L503.6005, L501.5200 #### [facility] [address] [place], [address] Urea nitrogen [Mass/Vol] 15 mg/dL Normal 7-18 [facility] Comment on above: Performed By: #### L 501.6710, L500.2500, L100.0100, L101.9900, L503.6005, L501.5200 #### [facility] [address] [place], [address] CBC W/Diff, Automatedon 10- Absolute Lymph 2.65 X10 3/uL Normal 0.83-4.51 [facility] Comment on above: Performed By: #### L 501.6710, L500.2500, L100.0100, L101.9900, L503.6005, L501.5200 #### [facility] [address] [place], [address] Absolute Neut 8.9 X10 3/uL High 2.0-7.7 [facility] Comment on above: Performed By: #### L 501.6710, L500.2500, L100.0100, L101.9900, L503.6005, L501.5200 #### [facility] [address] [place], [address] Basophils/100 WBC (Bld) 0.4 % Normal 0-1 [facility] Comment on above: Performed By: #### L 501.6710, L500.2500, L100.0100, L101.9900, L503.6005, L501.5200 #### [facility] [address] [place], [address] Eosinophils/100 WBC (Bld) 3.2 % Normal 0-5 [facility] Comment on above: Performed By: #### L 501.6710, L500.2500, L100.0100, L101.9900, L503.6005, L501.5200 #### [facility] [address] [place], [address] Erythrocyte distribution width (RBC) [Ratio] 11.7 % Normal 11.6-14.6 [facility] Comment on above: Performed By: #### L 501.6710, L500.2500, L100.0100, L101.9900, L503.6005, L501.5200 #### [facility] [address] [facility] [place], [address] Hematocrit (Bld) [Volume fraction] 40.6 % Normal 40-54 [facility] Comment on above: Performed By: #### L 501.6710, L500.2500, L100.0100, L101.9900, L503.6005, L501.5200 #### [facility] [address] [place], [address] Hemoglobin (Bld) [Mass/Vol] 13.9 g/dL Normal 13.0-16.5 [facility] Comment on above: Performed By: #### L 501.6710, L500.2500, L100.0100, L101.9900, L503.6005, L501.5200 #### [facility] [address] [place], [address] IG% 0.400 Normal 0.0-0.9 [facility] Comment on above: Result Comment: IG% - Immature Granulocytes (promyelocytes, myelocytes and metamyelocytes) > 1% indicates that a LEFT SHIFT is Present. Performed By: #### L 501.6710, L500.2500, L100.0100, L101.9900, L503.6005, L501.5200 #### [facility] [address] [place], [address] Lymphocytes/100 WBC (Bld) 19.6 % Normal 19-41 [facility] Comment on above: Performed By: #### L 501.6710, L500.2500, L100.0100, L101.9900, L503.6005, L501.5200 #### [facility] [address] [place], [address] MCH (RBC) [Entitic mass] 32.0 pg Normal 27.0-32.0 [facility] Comment on above: Performed By: #### L 501.6710, L500.2500, L100.0100, L101.9900, L503.6005, L501.5200 #### [facility] [address] [place], [address] MCHC (RBC) [Mass/Vol] 34.2 g/dL Normal 32-36 [facility] Comment on above: Performed By: #### L 501.6710, L500.2500, L100.0100, L101.9900, L503.6005, L501.5200 #### [facility] [address] [place], [address] MCV (RBC) [Entitic vol] 93.5 fL Normal 80-94 [facility] Comment on above: Performed By: #### L 501.6710, L500.2500, L100.0100, L101.9900, L503.6005, L501.5200 #### [facility] [address] [place], [address] Monocytes/100 WBC (Bld) 10.3 % High 0-10 [facility] Comment on above: Performed By: #### L 501.6710, L500.2500, L100.0100, L101.9900, L503.6005, L501.5200 #### [facility] [address] [place], [address] Neutrophils/100 WBC (Bld) 66.1 % Normal 47-70 [facility] Comment on above: Performed By: #### L 501.6710, L500.2500, L100.0100, L101.9900, L503.6005, L501.5200 #### [facility] [address] [place], [address] Nucleated RBC (Bld) [#/Vol] 0 10*3/uL Normal 0-5 [facility] Comment on above: Performed By: #### L 501.6710, L500.2500, L100.0100, L101.9900, L503.6005, L501.5200 #### [facility] [address] [place], [address] Platelet mean volume (Bld) [Entitic vol] 11.9 fL Normal 6.2-12.0 [facility] Comment on above: Performed By: #### L 501.6710, L500.2500, L100.0100, L101.9900, L503.6005, L501.5200 #### [facility] [address] [place], [address] Platelets (Bld) [#/Vol] 235 10*3/uL Normal 150-450 [facility] Comment on above: Performed By: #### L 501.6710, L500.2500, L100.0100, L101.9900, L503.6005, L501.5200 #### [facility] [address] [place], [address] RBC (Bld) [#/Vol] 4.34 10*6/uL Low 4.6-6.2 [facility] Comment on above: Performed By: #### L 501.6710, L500.2500, L100.0100, L101.9900, L503.6005, L501.5200 #### [facility] [address] [place], [address] RDW SD 40.2 fl Normal 35.1-43.9 [facility] Comment on above: Performed By: #### L 501.6710, L500.2500, L100.0100, L101.9900, L503.6005, L501.5200 #### [facility] [address] [place], [address] WBC (Bld) [#/Vol] 13.5 10*3/uL High 4.4-11.0 [facility] Comment on above: Performed By: #### L 501.6710, L500.2500, L100.0100, L101.9900, L503.6005, L501.5200 #### [facility] [address] [place], [address] CRPon 01-04-2024 C-REACTIVE PROT 7.22 mg/L High 0.0-3.0 [facility] Comment on above: Result Comment: C-Re active Protein (CRP) provides useful information for the diagnosis, therapy and monitoring of inflammatory processes and associated diseases. For the evaluation of Relative Risk for Cardiovascular Disease, a High Sensitivity CRP (HSCRP) should be ordered. Performed By: #### L 501.6710, L500.2500, L100.0100, L101.9900, L503.6005, L501.5200 ####[facility] [address] [facility] [place], [address] Emergency Department Summary on 01-04-2024 Emergency Department Summary [facility] Medical Records Department [address] [place] [address] Emergency Department Summary 01/04/24 MR#: [id number] Acct: [id number] Name: HARMAN JAMIL Rep #: [id number] : 1980 43 From: Demetrius Andrew DO [...] sleeping and with this presents for evaluation [facility] Medical History ADHD Cervical radiculopathy Sciatica [...] for developi (more content not included)... Normal [facility] Erythrocyte Sed Rateon 01-03 SED RATE 5 mm/hr Normal 0-20 [facility] Comment on above: Performed By: #### L 501.6710, L500.2500, L100.0100, L101.9900, L503.6005, L501.5200 #### [facility] [place], [address] Lactic Acidon 01-04-2024 Lactate [Moles/Vol] 1.2 mmol/L Normal 0.4-1.9 [facility] Comment on above: Order Comment: Y Performed By: #### L 501.6710, L500.2500, L100.0100, L101.9900, L503.6005, L501.5200 #### [facility] [address] [place], [place], [address] Magnesiumon 01-04-2024 Magnesium [Mass/Vol] 2.3 mg/dL Normal 1.6-2.6 [facility] Comment on above: Performed By: #### L 501.6710, L500.2500, L100.0100, L101.9900, L503.6005, L501.5200 ####[facility] [address] [place], [place], [address] XR LUMBAR SPINE (2-3 VIEWS)o n 11-14-2023 [...] most notably L3-L4 and L4-L5. Interpreted by: Kevin Alexander DO Signed by: Kevin Alexander DO 11/14/23 Final result Normal [facility] [place] CBC With Platelet and Differ entialon 08-28-2023 Basophils (Bld) [#/Vol] 0.1 10*3/uL Normal 0.0-0.2 [facility] Comment on above: Performed By: #### C BCWD #### [facility] [place] [facility] [address] [place] [address] Basophils/100 WBC (Bld) 0.5 % Normal [facility] Comment on above: Performed By: #### C BCWD #### [facility] [place] [facility] [address] [place] [address] Eosinophils (Bld) [#/Vol] 0.3 10*3/uL Normal 0.0-0.7 [facility] Comment on above: Performed By: #### C BCWD #### [facility] [place] [facility] [address] [place] [address] Eosinophils/100 WBC (Bld) 2.7 % Normal [facility] [place] [facility] Comment on above: Performed By: #### C BCWD #### [facility] [place] [address] [place] [address] Erythrocyte distribution width (RBC) [Ratio] 11.7 % Normal 11.5-14.5 [facility] Comment on above: Performed By: #### C BCWD #### [facility] [place] [facility] [address] [place] [address] Hematocrit (Bld) [Volume fraction] 41.5 % Low 42.0-52.0 [facility] Comment on above: Performed By: #### C BCWD #### [facility] [place] [address] [place] [address] Hemoglobin (Bld) [Mass/Vol] 14.2 g/dL Normal 14.0-18.0 [facility] Comment on above: Performed By: #### C BCWD #### [facility] [place] [facility] [address] [place] [address] Lymphocytes (Bld) [#/Vol] 3.1 10*3/uL Normal 1.0-4.8 [facility] [place] [facility] Comment on above: Performed By: #### C BCWD #### [facility] [place] [address] [place] [address] Lymphocytes/100 WBC (Bld) 28.7 % Normal [facility] [place] Comment on above: Performed By: #### C BCWD #### [facility] [place] [address] [place] [address] MCH (RBC) [Entitic mass] 32.0 pg Critically high 27.0-31.3 [facility] [place] [facility] Comment on above: Performed By: #### C BCWD #### [facility] [place] [address] [place] [address] MCHC 34.2 % Normal 33.0-37.0 [facility] [place] [facility] Comment on above: Performed By: #### C BCWD #### [facility] [place] [address] [place] [address] MCV (RBC) [Entitic vol] 93.5 fL Critically high 79.0-92.2 [facility] [place] [facility] Comment on above: Performed By: #### C BCWD #### [facility] [place] [address] [place] [address] Monocytes (Bld) [#/Vol] 1.0 10*3/uL Critically high 0.2-0.8 [facility] [place] [facility] Comment on above: Performed By: #### C BCWD #### [facility] [place] [address] [place] [address] Monocytes/100 WBC (Bld) 9.5 % Normal [facility] [place] Comment on above: Performed By: #### C BCWD #### [facility] [place] [address] [place] [address] Neutrophils (Bld) [#/Vol] 6.4 10*3/uL Normal 1.4-6.5 [facility] [place] Comment on above: Performed By: #### C BCWD #### [facility] [place] [address] [place] [address] Neutrophils/100 WBC (Bld) 58.3 % Normal [facility] [place] Comment on above: Performed By: #### C BCWD #### [facility] [place] [address] [place] [address] Platelets (Bld) [#/Vol] 223 10*3/uL Normal 130-400 [facility] [place] Comment on above: Performed By: #### C BCWD #### [facility] [place] [address] [place] [address] RBC (Bld) [#/Vol] 4.44 10*6/uL Low 4.70-6.10 [facility] [place] Comment on above: Performed By: #### C BCWD #### [facility] [place] [address] [place] [address] WBC (Bld) [#/Vol] 10.9 10*3/uL Critically high 4.8-10.8 [facility] [place] Comment on above: Performed By: #### C BCWD #### [facility] [place] [address] [place] [address] CT CERVICAL SPINE WO CONTRAS Ton 08-28-2023 [...] Kevin Alexander DO 08/28/23 Final result Normal [facility] [place] CT LUMBAR SPINE WO CONTRASTo n 08-28-2023 [...] Kevin Alexander DO 08/28/23 Final result Normal [facility] [place] CT THORACIC SPINE WO CONTRAS Ton 08-28-2023 [...] Kevin Alexander DO 08/28/23 Final result Normal [facility] [place] Comprehensive Metabolic Pane ashok 08-28-2023 Albumin [Mass/Vol] 4.6 g/dL Normal 3.5-4.6 [facility] [place] Comment on above: Performed By: #### C MP #### [facility] [place] [address] [place] [address] ALP [Catalytic activity/Vol] 70 U/L Normal 35-104 [facility] [place] Comment on above: Performed By: #### C MP #### [facility] [place] [address] [place] [address] ALT [Catalytic activity/Vol] 13 U/L Normal 0-41 [facility] [place] Comment on above: Performed By: #### C MP #### [facility] [place] [address] [place] [address] Anion gap [Moles/Vol] 11 mmol/L Normal 9-15 [facility] [place] Comment on above: Performed By: #### C MP #### [facility] [place] [address] [place] [address] AST [Catalytic activity/Vol] 13 U/L Normal 0-40 [facility] [place] Comment on above: Performed By: #### C MP #### [facility] [place] [address] [place] [address] Bilirubin [Mass/Vol] mg/dL Normal 0.2-0.7 [facility] [place] Comment on above: Performed By: #### C MP #### [facility] [place] [address] [place] [address] Calcium [Mass/Vol] 9.2 mg/dL Normal 8.5-9.9 [facility] [place] Comment on above: Performed By: #### C MP #### [facility] [place] [address] [place] [address] Chloride [Moles/Vol] 105 mmol/L Normal 95-107 [facility] [place] Comment on above: Performed By: #### C MP #### [facility] [place] [address] [place] [address] CO2 [Moles/Vol] 25 mmol/L Normal 20-31 [facility] [place] Comment on above: Performed By: #### C MP #### [facility] [place] [address] [place] [address] Creatinine [Mass/Vol] 1.15 mg/dL Normal 0.70-1.20 [facility] [place] Comment on above: Performed By: #### C MP #### [facility] [place] [address] [place] [address] GFR 81.5 Normal >60 [facility] [place] Comment on above: Result Comment: Abbie atric [...] secretion. Performed By: #### C MP #### [facility] [place] [address] [place] [address] Globulin (S) [Mass/Vol] 2.9 g/dL Normal 2.3-3.5 [facility] [place] Comment on above: Performed By: #### C MP #### [facility] [place] [address] [place] [address] Glucose [Mass/Vol] 97 mg/dL Normal 70-99 [facility] [place] Comment on above: Performed By: #### C MP #### [facility] [place] [address] [place] [address] Potassium [Moles/Vol] 3.6 mmol/L Normal 3.4-4.9 [facility] [place] Comment on above: Performed By: #### C MP #### [facility] [place] [address] [place] [address] Protein [Mass/Vol] 7.5 g/dL Normal 6.3-8.0 [facility] [place] Comment on above: Performed By: #### C MP #### [facility] [place] [address] [place] [address] Sodium [Moles/Vol] 141 mmol/L Normal 135-144 [facility] [place] Comment on above: Performed By: #### C MP #### [facility] [place] [address] [place] [address] Urea nitrogen [Mass/Vol] 22 mg/dL Critically high 6-20 [facility] [place] Comment on above: Performed By: #### C MP #### [facility] [place] [address] [place] [address] Emergency Department Summary on 05-18-2023 Emergency Department Summary [facility] Medical Records Department [address] [place] [address] Emergency Department Summary 05/18/23 MR#: [id number] Acct: [id number] Name: HARMAN JAMIL Rep #: [id number] : 1980 42 From: Mynor Colon DO PCP: Dr. Josafat Leonard DO Status:DEP ER Location: ED HPI History of Present Illness Chief Complaint: Back Informant: patient Narrative Narrative: 42-year-old male with a history of chronic sciatica presenting to the emergency room with low back pain. Patient states he underwent a laminectomy in 2016 at [facility]. He states that recently he has been experiencing increased low back pain particular on the right and now a new on the left. He notes some radicular symptoms but no muscle strength or sensory losses. No bowel or bladder dysfunctions. No fevers. Denies IV drug use or underlying immunosuppression. He states that a few days ago he had an MRI at [facility] and is supposed to see his surgeon at [facility] on 21 May 2023. His surgeon's name is Dr. Sha oFster. He states that in his consultation with Dr. Foster I do not prescribe pain medication until surgery is scheduled. He states that he has been taking Tylenol and ngyt-ion-rnqgeya medications to try to help push through the pain but last night he only got about 1 hour of sleep due to pain. Pain is exacerbated by movements. [facility] Medical History ADHD Cervical radiculopathy Sciatica [...] / Or (more content not included)... Normal [facility] XR Lumbar spine 4 Viewson Interpreted By: Sha Chacon, STUDY: XR LUMBAR SPINE COMPLETE 4+ VIEWS; ; 05/04/2023 4:17 pm INDICATION: Signs/Symptoms:pain. ACCESSION NUMBER(S): [id number] ORDERING CLINICIAN: SHA FOSTER FINDINGS: AP lateral flexion extension x-rays lumbar spine show [id number] degenerative changes at L4-5 and mild degenerative [...] Sha Foster 05/04/2023 4:32 PM Dictation workstation: [id number] MMODAL Sha Foster MD - 05/04/2023 Interpreted By: Sha Foster, STUDY: XR LUMBAR SPINE COMPLETE 4+ VIEWS; ; 05/04/2023 4:17 pm INDICATION: Signs/Symptoms:pain. ACCESSION NUMBER(S): [id number] ORDERING CLINICIAN: SHA FOSTER FINDINGS: AP lateral flexion extension x-rays lumbar spine show [id number] degenerative changes at L4-5 and mild degenerative [...] Sha Foster 05/04/2023 4:32 PM Dictation workstation: [id number] [facility] Work Phone: [facility] Work Phone: Radiology Study observation (narrative) [facility] Work Phone: Emergency Department Summary on 04-10-2023 Emergency Department Summary [facility] Medical Records Department [address] [place] [address] Emergency Department Summary 04/10/23 MR#: [id number] Acct: [id number] Name: ALBINOLENARDHARMAN Rep #: [id number] : 1980 42 From: Raghu Sadler DO [...] bladder changes. Patient denies any saddle anesthesia. [facility] Medical History ADHD Cervical radiculopathy Sciatica [...] a p (more content not included)... Normal [facility] Absolute lymphocyte counton 08-20-2021 Lymphocytes Auto (Unsp spec) [#/Vol] 0.41 10*3/uL 0.83-4.51 [facility] Work Phone: Basophil percentageon 2021 Basophils/100 WBC (Bld) 0.5 % 0-1 [facility] Work Phone: Chloride [Moles/Vol] 100 mmol/L 98-107 [facility] Work Phone: Eosinophils/100 WBC (Bld) 0.0 % 0-5 [facility] Work Phone: Glucose [Mass/Vol] 120 mg/dL 74-106 [facility] Work Phone: Comment on above: Fasting Glucose resu lt from 100 to 125 mg/dL suggests IMPAIRED HOMEOSTASIS per A.D.A. criteria. Neutrophils (Bld) [#/Vol] 0.8 10*3/uL 2.0-7.7 [facility] Work Phone: Neutrophils/100 WBC (Bld) 40.8 % 47-70 [facility] Work Phone: Potassium [Moles/Vol] 3.2 mmol/L 3.5-5.1 [facility] Work Phone: Sodium [Moles/Vol] 134 mmol/L 136-145 [facility] Work Phone: [phone] WBC (Bld) [#/Vol] 2.0 10*3/uL 4.4-11.0 [facility] Work Phone: [phone] Blood erythrocytes count (nu mber/volume)on 08-20-2021 RBC (Bld) [#/Vol] 4.44 10*6/uL 4.6-6.2 [facility] Work Phone: Blood hemoglobin measurement (mass/volume)on 08-20-2021 Hemoglobin (Bld) [Mass/Vol] 14.0 g/dL 13.0-16.5 [facility] Work Phone: [phone] Blood lymphocytes/100 leukoc yteson 08-20-2021 Lymphocytes/100 WBC (Bld) 20.4 % 19-41 [facility] Work Phone: Blood manual differential co mment interpretation (narrative result)on 08-20-2021 Manual differential comment Blake (Bld) [Interp] SEE COMMENTS [facility] Work Phone: Comment on above: NEUTROPENIA NOTEDLYM PHOPENIA NOTED Blood monocytes/100 leukocyt eson 08-20-2021 Monocytes/100 WBC (Bld) 37.8 % 0-10 [facility] Work Phone: Blood platelet adequacy dete ction by light microscopyon 08-20-2021 Platelets LM Ql (Bld) ADEQUATE ADEQ [facility] Work Phone: Blood platelet mean volumeon 08-20-2021 Platelet mean volume (Bld) [Entitic vol] 12.0 fL 6.2-12.0 [facility] Work Phone: Determination of erythrocyte mean corpuscular volume (MCV)on 08-20-2021 MCV (RBC) [Entitic vol] 93.5 fL 80-94 [facility] Work Phone: Hematocrit Auto (Bld) [Volum e fraction]on 08-20-2021 Hematocrit (Bld) [Volume fraction] 41.5 % 40-54 [facility] Work Phone: Laboratory - Chemistry and C hemistry - challengeon 08-20-2021 CO2 [Moles/Vol] 25.0 mmol/L 21.0-32.0 [facility] Work Phone: Urea nitrogen/Creatinin e [Mass ratio] 11.2 mg/mg 10-20 [facility] Work Phone: Laboratory - Drug toxicology on 08-20-2021 Amphetamines Ql (U) Negative [facility] Work Phone: Benzodiazepines Ql (U) Negative [facility] Work Phone: Cannabinoids Screen Ql (U) Positive [facility] Work Phone: Cocaine Ql (U) Negative [facility] Work Phone: Opiates Ql (U) Negative [facility] Work Phone: Laboratory - Hematology and Cell countson 08-20-2021 Anisocytosis Ql (Bld) RARE [facility] Work Phone: Erythrocyte distribution width (RBC) [Entitic vol] 40.6 fL 35.1-43.9 [facility] Work Phone: Erythrocyte distribution width (RBC) [Ratio] 11.9 % 11.6-14.6 [facility] Work Phone: Immature granulocytes/100 WBC (Bld) 0.500 % 0.0-0.9 [facility] Work Phone: Comment on above: IG% - Immature Granu locytes (promyelocytes, myelocytes and metamyelocytes) > 1% indicates that a LEFT SHIFT is Present. MCH (RBC) [Entitic mass] 31.5 pg 27.0-32.0 [facility] Work Phone: Nucleated RBC/100 WBC (Bld) [Ratio] 0 % 0-5 [facility] Work Phone: Laboratory - Microbiology an d Antimicrobial susceptibilityon 08-20-2021 SARS-CoV-2 (COVID-19) RNA CATALINO+probe Ql (Unsp spec) Detected Not Detect [facility] Work Phone: Comment on above: Normal [...] 08-20-2021 MCHC (RBC) [Mass/Vol] 33.7 g/dL 32-36 [facility] Work Phone: Macrocytes detectionon 08-20 Macrocytes Ql (Bld) RARE [facility] Work Phone: No Panel Informationon 08-20 MDMA (Ecstasy) Screen Negative [facility] Work Phone: Urine Barbiturates Screen Negative [facility] Work Phone: Urine Drug Screen Comment [facility] Work Phone: Comment on above: CONFIRMATORY [...] USE TESTMNEMONIC: [facility] Urine Methadone Screen Negative [facility] Work Phone: Estimated Creatinine Clearance Calc 95.67 ml/min [facility] Work Phone: Estimated GFR (MDRD) Amer 90 mL/min >60 [facility] Work Phone: Comment on above: GFR Calc Estimated GFR (MDRD) Non-Af Amer 74 mL/min >60 [facility] Work Phone: Comment on above: Non- GFR Calc Ethyl Alcohol Level 5.0 mg/dL [facility] Work Phone: Comment on above: The serum:whole bloo d ethanol ratio is approximately 1.14and varies slightly with hematocrit. Medical Alcohol reference interval and critical value innon-tolerant individuals; 50 - 100 Impairment 100 Intoxication 100 - 250 Severe Poisoning 250 - 400 Deep/possible fatal coma Platelets bldon 08-20-2021 Platelets (Bld) [#/Vol] 172 10*3/uL 150-450 [facility] Work Phone: RBC morphologyon 08-20-2021 RBC morphology finding Nom (Bld) N CHROM NORMAL NORM C&C [facility] Work Phone: Review by pathologiston Pathologist review Blake (Unsp spec) [Interp] Reviewed [facility] Work Phone: Comment on above: Previous reported re sult: July wilfredo Edited by: RGOSAMI on 08/21/21:1235Leukopenia and neutropenia. Clinical correlation necessary.Randall Milan M.D. 08/21/21 AMENDED REPORT 08/21/21 1235 PATH REV previously reported as: July wilfredo SARS-CoV-2 (COVID-19) Ag IA. rapid Ql (Resp)on 08-20-2021 SARS-CoV-2 Antigen (Rapid) SARS-CoV-2 (COVID 19) [facility] Work Phone: Serum or plasma calcium whitney urement (mass/volume)on 08-20-2021 Calcium [Mass/Vol] 8.7 mg/dL 8.5-10.1 [facility] Work Phone: Serum or plasma creatinine m easurement (mass/volume)on 08-20-2021 Creatinine [Mass/Vol] 1.16 mg/dL 0.70-1.30 [facility] Work Phone: Comment on above: The validity of the calculated GFR & GFRAA in patients over 70 years has not been determined. Clinical correlation is essential. Serum or plasma urea nitroge n measurement (mass/volume)on 08-20-2021 Urea nitrogen [Mass/Vol] 13 mg/dL 7-18 [facility] Work Phone: Thin prep Papanicolaou smear with manual screeningon 08-20-2021 Thin prep Papanicolaou smear with manual screening 9 5-15 [facility] Work Phone: Urine phencyclidine (PCP) de tectionon 08-20-2021 Phencyclidine Ql (U) Negative [facility] Work Phone: MRI RT SHOULDER W/O [...] TISSUES:No subcutaneous edema.CONCLUSION: IMPRESSION:1. Unremarkable exam. Normal [facility] Healthcare Office Visiton 10-04-2017 Office Visit Chief [...] PM Vitals Vital Signs Recorded: 04Oct2017 03:57PMHeart Tykb085Ltssyitf541, LUE, SabiagpHgsgycjka78, LUE, SittingHeight6 ft Pqlzgl221 lb 9 ozBMI Vxjriyhejy49.02BSA Calculated2.16O2 Yavfgvcgsw31 Physical ExamGen: NADeyes: EOMI, ENT: hearing grossly intact, no nasal dischargeresp: CTABL, without R/Rheart: RRR without MRGGI: abd: S/ND/NT, BS+lymph: no axillary, cervical, supraclavicular lymphadenopathy noted MS: gait grossly WNL, shoulder range of motion grossly within normal limits.derm: no rashes or lesions notedneuro: CN II-XII grossly intactpsych: AANDOx3 Results/Data HIV Antigen/Antibody Riktnk52Hcq2751 10:Josafat Clemente Test NameResultFlagReferenceHIV AG/AB SCREENNON REACTIVESee BelowSOURCE: Reference Range: NONREACTIVE HIV Ag/Ab screen is performed using the Siemens Advia Centaur HIV Ag/Ab Combo assay which detects the presence of HIV p24 antigen as well as antibodies to HIV-1 (Group M and O) and HIV-2. Syphilis [id number] 10:17AJosafat Peterson Test NameResultFlagReferenceSyphilis IgGNON REACTIVESee BelowSOURCE: Reference Range: NONREACTIVE Patients receiving more than 5 mg/day of biotin may have interference in test results. A sample should be taken no sooner than eight hours after previous dose. Contact [phone] for additional information. Vitamin D 25-Fqjqhjm07Wya4654 10:17AJosafat Peterson Test NameResultFlagReferenceVitamin D 25-Hydroxy, Level14 [...] Status: Hold For - Scheduling Requested for: [id number] Ordered;For: Paresthesia of upper extremity, Shoulder pain; Ordered By: Josafat Leonard Performed: Order Comments: If possible he might be able to come in tomorrow for the walk-in clinic, otherwise schedule with someone. Thanks. Due: 76Sjf8529Azzeoaxg pain Start: Ibuprofen 800 MG Oral Tablet; TAKE 1 TABLET 3 TIMES DAILY WITH FOOD ASNEEDED for pain Rx By: Josafat Leonard; Dispense: 20 Days ; #:60 Tablet; Refill: 1;For: Shoulder pain; PAYAM = N; Sent To: [facility] #71Vitamin D deficiency Start: Vitamin D3 5000 UNIT Oral Capsule; 1 po qd Rx By: Josafat Leonard; Dispense: 0 Days ; #:30 Capsule; Refill: 11;For: Vitamin D deficiency; PAYAM = N; Sent To: [facility] #[facility] Patient Discussion/Summarysmoking about 1/2 ppd, -->> [...] TIMES DAILY WITH FOOD ASNEEDED for pain;Therapy: 73Zpb9217 to (Evaluate:69Xvp2952); Last Rx:[id number] OrderedVitamin D3 5000 UNIT Oral Capsule; 1 po qd;Therapy: 72Kbb3985 to (Last Rx:[id number]) Ordered Signatures Electronically signed by : Josafat [...] 09/06/2015 8:22:19 AM Vitals Vital Signs Recorded: 45Wqs2565 09:53AMHeart Mvaj25Jkuqwqvi944, LUE, KnjqttwVunvlaknb06, LUE, SittingHeight6 ft Gqwwko076 lb 2 ozBMI Uskiuolsck24.36BSA Calculated2.17O2 Axoigywwde26 Physical ExamGen: NADeyes: EOMI, ENT: hearing grossly [...] Education Material Provided for Patient; Status:Complete; Done: [id number] Ordered; For:Drug therapy, Hyperlipidemia, Overweight, Prediabetes, Screening [...] Leonard; Lipid Panel; Source:Blood (BLD); Status:Active; Requested for:48Ygn2377; Perform:Lab Services - Lab To Draw (Blood [...] FREE T4 IF ABNORMAL; Source:Blood (BLD); Status:Active;Requested for:[id number]; Perform:Lab Services - Lab To Draw (Blood Test); Due:27Dec2017;Ordered; For:Drug therapy, Hyperlipidemia, Overweight, Prediabetes, Screening for condition, Vitamin D deficiency; Ordered By:Josafat Leonard; Vitamin D 25-Hydroxy; Source:Blood (BLD); Status:Active; Requested for:45Cjw6504; Perform:Lab Services - Lab To Draw (Blood Test); Due:27Dec2017;Ordered; For:Drug therapy, Hyperlipidemia, Overweight, Prediabetes, Screening for condition, Vitamin D deficiency; Ordered By:Josafat Leonard;Screening for condition GC + Chlamydia By Amplified Detection; Source:Urine; Status:Active; Requestedfor:[id number]; Perform:Lab Services - Lab To Draw (Non-Blood Test); Due:27Dec2017;Ordered; For:Screening for condition; Ordered By:Josafat Leonard; HIV Antigen/Antibody Screen; Source:Blood (BLD); Status:Active; Requestedfor:[id number]; Perform:Lab Services - Lab To Draw (Blood [...] Follow-up with CT if clinically indicated. Normal [facility] SPINE L MIN 4 VIEWSon 2017 SPINE L MIN 4 VIEWS DATE OF EXAM: May 26 2017 11:32PLINICAL HISTORY/ Name: VENTURA LIZY:SPINE L MIN 4 VIEWS; 05/26/2017 11:32 pmINDICATION:Non Trauma.COMPARISON:12/18/2015ACC ESSION NUMBER(S):[id number] CLINICIAN:MARCIE CRUZS:No significant interval change.There is no acute fracture or dislocation. The vertebral heights and alignment are unremarkable.There is no spondylolysis or spondylolisthesis.There is no radiographic evidence of significant spondylosis.Significant stool and bowel gas obscures the bony details.CONCLUSION: IMPRESSION:No acute fracture or dislocation. Follow-up with CT if clinically indicated. Normal [facility] Vital Signs Date Time Vital Sign Value Performing Clinician Facility 10-23-2024 15:44-0400 SaO2% (BldA) [Mass fraction] 98 % Dr. Josafat Leonard DO Work Phone: [facility] 10-23-2024 15:32-0400 Body height 185.[address] Josafat Leonard DO Work Phone: [facility] 10-23-2024 15:32-0400 Body mass index (BMI) [Ratio] 24.9 kg/m2 Dr. Josafat Leonard DO Work Phone: [facility] 10-23-2024 15:32-0400 Body temperature 98.8 [degF] Dr. Josafat Leonard DO Work Phone: [facility] 10-23-2024 15:32-0400 Body weight 85.[address] Josafat Leonard DO Work Phone: [facility] 10-23-2024 15:32-0400 Diastolic blood pressure 65 mm[Hg] Dr. Josafat Leonard DO Work Phone: [facility] 10-23-2024 15:32-0400 Heart rate 104 /min Dr. Josafat Leonard DO Work Phone: [facility] 10-23-2024 15:32-0400 Inhaled oxygen flow rate 4 L/min Dr. Josafat Leonard DO Work Phone: [facility] 10-23-2024 15:32-0400 Respiratory rate 14 /min Dr. Josafat Leonard DO Work Phone: [facility] 10-23-2024 15:32-0400 Systolic blood pressure 112 mm[Hg] Dr. Josafat Leonard DO Work Phone: [facility] 10-02-2024 12:11-0400 Body height 185.4 cm Nighat Griffin MD Work Phone: [facility] 10-02-2024 12:11-0400 Body mass index (BMI) [Ratio] 25.46 kg/m2 Nighat Griffin MD Work Phone: [facility] 10-02-2024 12:11-0400 Body temperature 97.3 [degF] Nighat Griffin MD Work Phone: [facility] 10-02-2024 12:11-0400 Body weight 87.54 kg Nighat Griffin MD Work Phone: [facility] 10-02-2024 12:11-0400 Diastolic blood pressure 76 mm[Hg] Nighat Griffin MD Work Phone: [facility] 10-02-2024 12:11-0400 Heart rate 57 /min Nighat Griffin MD Work Phone: [facility] 10-02-2024 12:11-0400 SaO2% (BldA) [Mass fraction] 99 % Nighat Griffin MD Work Phone: [facility] 10-02-2024 12:11-0400 Systolic blood pressure 117 mm[Hg] Nighat Griffin MD Work Phone: [facility] 07-19-2024 10:44-0400 Body height 185.4 cm Radha Garratt DO Work Phone: [facility] 07-19-2024 10:44-0400 Body mass index (BMI) [Ratio] 24.83 kg/m2 Radha Garratt DO Work Phone: [facility] 07-19-2024 10:44-0400 Body weight 85.37 kg Radha Garratt DO Work Phone: [facility] 07-14-2024 01:28-0400 Body temperature 98.71 [degF] Josafat Leonard DO Work Phone: [facility] 07-13-2024 22:31-0400 Body mass index (BMI) [Ratio] 24.65 kg/m2 Josafat Leonard DO Work Phone: [facility] 07-13-2024 22:31-0400 Body weight 84.73 kg [facility] Degidio [facility] 07-13-2024 22:30-0400 Diastolic blood pressure 92 mm[Hg] Jos[facility]at Degidio DO [facility] 07-13-2024 22:30-0400 Heart rate 98 /min Josafat Degidio DO [facility] 07-13-2024 22:30-0400 Respiratory rate 19 /min Josafat Degidio DO [facility] 07-13-2024 22:30-0400 SaO2% (BldA) [Mass fraction] 97 % Josafat Degidio DO [facility] 07-13-2024 22:30-0400 Systolic blood pressure 137 mm[Hg] Josafat Degidio DO Work Phone: [facility] 06-28-2024 08:47-0400 Body height 183.1 cm Josafat Degidio DO Work Phone: [facility] 06-28-2024 08:47-0400 Body mass index (BMI) [Ratio] 25.29 kg/m2 Josafat Degidio DO Work Phone: [facility] 06-28-2024 08:47-0400 Body weight 84.82 kg Josafat Degidio DO Work Phone: [facility] 06-28-2024 08:47-0400 Diastolic blood pressure 99 mm[Hg] Josafat Degidio DO Work Phone: [facility] 06-28-2024 08:47-0400 Heart rate 80 /min Josafat Degidio DO Work Phone: [facility] 06-28-2024 08:47-0400 SaO2% (BldA) [Mass fraction] 98 % Josafat Degidio DO Work Phone: [facility] 06-28-2024 08:47-0400 Systolic blood pressure 134 mm[Hg] Josafat Leonard DO Work Phone: [facility] 06-15-2024 21:32-0400 Body height 185.4 cm Lisa Polanco MD Work Phone: [facility] 06-15-2024 21:32-0400 Body mass index (BMI) [Ratio] 24.72 kg/m2 Lisa Polanco MD Work Phone: [facility] 06-15-2024 21:32-0400 Body temperature 98.01 [degF] Lisa Polanco MD Work Phone: [facility] 06-15-2024 21:32-0400 Body weight 85 kg Lisa Polanco MD Work Phone: [facility] 06-15-2024 21:32-0400 Diastolic blood pressure 87 mm[Hg] Lisa Polanco MD Work Phone: [facility] 06-15-2024 21:32-0400 Heart rate 92 /min Lisa Polanco MD Work Phone: [facility] 06-15-2024 21:32-0400 Respiratory rate 20 /min Lisa Polanco MD Work Phone: [facility] 06-15-2024 21:32-0400 SaO2% (BldA) [Mass fraction] 99 % Lisa Polanco MD Work Phone: [facility] 06-15-2024 21:32-0400 Systolic blood pressure 154 mm[Hg] Lisa Polanco MD Work Phone: [facility] 05-19-2024 14:00-0500 Diastolic blood pressure 96 mm[Hg] Josafat Leonard DO Work Phone: [facility] [employer] [facility] 05-19-2024 14:00-0500 SaO2% (BldA) [Mass fraction] 98 % Josafat Degidio DO Work Phone: [employer] [facility] 05-19-2024 14:00-0500 Systolic blood pressure 122 mm[Hg] Josafat Degidio DO Work Phone: [facility] 05-18-2024 21:51-0500 Body height 185.4 cm Josafat Degidio DO Work Phone: [employer] [facility] 05-18-2024 21:51-0500 Body mass index (BMI) [Ratio] 24.41 kg/m2 Josafat Degidio DO Work Phone: [facility] [employer] 05-18-2024 21:51-0500 Body temperature 98.1 [degF] Josafat Degidio DO Work Phone: [facility] [employer] 05-18-2024 21:51-0500 Body weight 83.92 kg Josafat Degidio DO Work Phone: [employer] 05-18-2024 21:51-0500 Heart rate 85 /min Josafat Degidio DO Work Phone: [facility] [employer] 05-18-2024 21:51-0500 Respiratory rate 20 /min Josafat Degidio DO [facility] 02-26-2024 07:35-0500 Body temperature 97.7 [degF] Sha Foster MD Work Phone: [facility] 02-26-2024 07:35-0500 Diastolic blood pressure 103 mm[Hg] Sha Foster MD Work Phone: [facility] 02-26-2024 07:35-0500 Heart rate 67 /min Sha Foster MD Work Phone: [facility] 02-26-2024 07:35-0500 Respiratory rate 18 /min Sha Foster MD Work Phone: [facility] 02-26-2024 07:35-0500 SaO2% (BldA) [Mass fraction] 98 % Sha Foster MD Work Phone: [facility] 02-26-2024 07:35-0500 Systolic blood pressure 137 mm[Hg] Sha Foster MD Work Phone: [facility] 02-23-2024 02:23-0500 Body height 185.4 cm Sha Foster MD Work Phone: [facility] 02-23-2024 02:23-0500 Body mass index (BMI) [Ratio] 24.37 kg/m2 Sha Foster MD Work Phone: [facility] 02-23-2024 02:23-0500 Body weight 83.78 kg Sha Foster MD Work Phone: [facility] 02-09-2024 00:18-0500 Diastolic blood pressure 84 mm[Hg] Josafat Degidio DO Work Phone: [employer] 02-09-2024 00:18-0500 Respiratory rate 18 /min Josafat Degidio DO Work Phone: [employer] [facility] 02-09-2024 00:18-0500 SaO2% (BldA) [Mass fraction] 96 % Josafat Degidio DO Work Phone: [facility] 02-09-2024 00:18-0500 Systolic blood pressure 106 mm[Hg] Josafat Degidio DO Work Phone: [facility] [facility] 02-08-2024 21:59-0500 Body height 185.4 cm Josafat Degidio DO Work Phone: [facility] 02-08-2024 21:59-0500 Body mass index (BMI) [Ratio] 24.41 kg/m2 Josafat Degidio DO Work Phone: [employer] [facility] 02-08-2024 21:59-0500 Body temperature 97.3 [degF] Josafat Degidio DO Work Phone: [facility] [employer] 02-08-2024 21:59-0500 Body weight 83.92 kg Josafat Degidio DO Work Phone: [facility] [employer] 02-08-2024 21:59-0500 Heart rate 88 /min Josafat Degidio DO Work Phone: [facility] [employer] 01-29-2024 19:20-0500 Body height 185.4 cm Zuleyka [employer] Work Phone: [facility] [employer] 01-29-2024 19:20-0500 Body mass index (BMI) [Ratio] 24.41 kg/m2 Zuleyka [employer] Work Phone: [facility] 01-29-2024 19:20-0500 Body temperature 98.2 [degF] Zuleyka Bryant DO Work Phone: [facility] [employer] 01-29-2024 19:20-0500 Body weight 83.92 kg Zuleyka [employer] Work Phone: [facility] [employer] 01-29-2024 19:20-0500 Diastolic blood pressure 93 mm[Hg] [employer] Work Phone: [facility] 01-29-2024 19:20-0500 Heart rate 95 /min Zuleyka Bryant DO Work Phone: [facility] [employer] 01-29-2024 19:20-0500 Respiratory rate 18 /min [employer] Work Phone: [facility] [employer] 01-29-2024 19:20-0500 SaO2% (BldA) [Mass fraction] 97 % Zuleyka Bryant DO Work Phone: [employer] [facility] 01-29-2024 19:20-0500 Systolic blood pressure 128 mm[Hg] Zuleyka Bryant DO Work Phone: [facility] [employer] 12-12-2023 18:53-0400 Body height 182.9 cm Josafat Degidio DO Work Phone: [facility] [employer] 12-12-2023 18:53-0400 Body mass index (BMI) [Ratio] 25.09 kg/m2 Josafat Degidio DO Work Phone: [facility] [employer] 12-12-2023 18:53-0400 Body weight 83.92 kg Josafat Degidio DO Work Phone: [facility] [employer] 12-12-2023 18:35-0400 Body temperature 98.71 [degF] Josafat Degidio DO Work Phone: [facility] [employer] 12-12-2023 18:35-0400 Diastolic blood pressure 105 mm[Hg] Josafat Degidio DO Work Phone: [facility] [employer] 12-12-2023 18:35-0400 Heart rate 105 /min Josafat Degidio DO Work Phone: [facility] [employer] 12-12-2023 18:35-0400 Respiratory rate 18 /min Josafat Degidio DO Work Phone: [facility] [employer] 12-12-2023 18:35-0400 SaO2% (BldA) [Mass fraction] 100 % Josafat Degidio DO Work Phone: [facility] [employer] 12-12-2023 18:35-0400 Systolic blood pressure 163 mm[Hg] Josafat Degidio DO Work Phone: [facility] 05-18-2023 15:51-0500 Body temperature 98.2 [degF] [place] 05-18-2023 15:51-0500 Diastolic blood pressure 86 mm[Hg] [facility] 05-18-2023 15:51-0500 Heart rate 88 /min [facility] 05-18-2023 15:51-0500 Respiratory rate 18 /min [place] 05-18-2023 15:51-0500 SaO2% (BldA) [Mass fraction] 99 % [facility] 05-18-2023 15:51-0500 Systolic blood pressure 136 mm[Hg] [facility] 05-18-2023 14:08-0500 Body height 185.42 cm [facility] 05-18-2023 14:08-0500 Body mass index (BMI) [Ratio] 25.4 kg/m2 [facility] 05-18-2023 14:08-0500 Body weight 87.67 kg [facility] 04-10-2023 18:44-0500 Heart rate 79 /min [facility] 04-10-2023 18:44-0500 Respiratory rate 16 /min [place] 04-10-2023 18:44-0500 SaO2% (BldA) [Mass fraction] 98 % [facility] 04-10-2023 16:36-0500 Body height 185.42 cm [facility] 04-10-2023 16:36-0500 Body mass index (BMI) [Ratio] 25.9 kg/m2 [facility] 04-10-2023 16:36-0500 Body temperature 98.1 [degF] [place] 04-10-2023 16:36-0500 Body weight 89.1 kg [facility] 04-10-2023 16:36-0500 Diastolic blood pressure 100 mm[Hg] [facility] 04-10-2023 16:36-0500 Systolic blood pressure 152 mm[Hg] [facility] 03-09-2023 11:08-0500 Body height 185.42 cm [facility] 03-09-2023 11:08-0500 Body mass index (BMI) [Ratio] 23.3 kg/m2 [facility] 03-09-2023 11:08-0500 Body temperature 96.8 [degF] [place] 03-09-2023 11:08-0500 Body weight 80.28 kg [facility] 03-09-2023 11:08-0500 Diastolic blood pressure 95 mm[Hg] [facility] 03-09-2023 11:08-0500 Heart rate 125 /min [facility] 03-09-2023 11:08-0500 Respiratory rate 18 /min [place] 03-09-2023 11:08-0500 SaO2% (BldA) [Mass fraction] 100 % [facility] 03-09-2023 11:08-0500 Systolic blood pressure 123 mm[Hg] [facility] 11-09-2022 13:32-0400 Body height 185.42 cm [facility] 11-09-2022 13:32-0400 Body mass index (BMI) [Ratio] 25 kg/m2 [facility] 11-09-2022 13:32-0400 Body temperature 97 [degF] [place] 11-09-2022 13:32-0400 Body weight 86.27 kg [facility] 11-09-2022 13:32-0400 Diastolic blood pressure 94 mm[Hg] [facility] 11-09-2022 13:32-0400 Heart rate 117 /min [facility] 11-09-2022 13:32-0400 Respiratory rate 22 /min [place] 11-09-2022 13:32-0400 SaO2% (BldA) [Mass fraction] 99 % [facility] 11-09-2022 13:32-0400 Systolic blood pressure 151 mm[Hg] [facility] 06-16-2022 22:21-0400 Diastolic blood pressure 95 mm[Hg] [facility] 06-16-2022 22:21-0400 Heart rate 104 /min [facility] 06-16-2022 22:21-0400 Respiratory rate 18 /min [place] 06-16-2022 22:21-0400 SaO2% (BldA) [Mass fraction] 97 % [facility] 06-16-2022 22:21-0400 Systolic blood pressure 133 mm[Hg] [facility] 06-16-2022 22:15-0400 Body height 185.42 cm [facility] 06-16-2022 22:15-0400 Body mass index (BMI) [Ratio] 25.2 kg/m2 [facility] 06-16-2022 22:15-0400 Body temperature 98.5 [degF] [place] 06-16-2022 22:15-0400 Body weight 86.9 kg [facility] 08-22-2021 00:06-0400 Respiratory rate 17 /min [place] Work Phone: 08-22-2021 00:05-0400 Diastolic blood pressure 74 mm[Hg] [facility] Work Phone: 08-22-2021 00:05-0400 Heart rate 74 /min [facility] Work Phone: 08-22-2021 00:05-0400 SaO2% (BldA) [Mass fraction] 98 % [facility] Work Phone: 08-22-2021 00:05-0400 Systolic blood pressure 132 mm[Hg] [facility] Work Phone: 08-21-2021 04:42-0400 Body temperature 98.9 [degF] [place] Work Phone: 08-20-2021 15:33-0400 Body height 185.42 cm [facility] Work Phone: 08-20-2021 15:33-0400 Body mass index (BMI) [Ratio] 27.7 kg/m2 [facility] Work Phone: 08-20-2021 15:33-0400 Body weight 95.3 kg [facility] Work Phone: 08-19-2021 15:14-0400 Diastolic blood pressure 75 mm[Hg] [facility] Work Phone: 08-19-2021 15:14-0400 Heart rate 76 /min [facility] Work Phone: 08-19-2021 15:14-0400 Respiratory rate 16 /min [place] Work Phone: 08-19-2021 15:14-0400 SaO2% (BldA) [Mass fraction] 97 % [facility] Work Phone: 08-19-2021 15:14-0400 Systolic blood pressure 123 mm[Hg] [facility] Work Phone: 08-19-2021 13:05-0400 Body height 185.42 cm [facility] Work Phone: 08-19-2021 13:05-0400 Body mass index (BMI) [Ratio] 28.3 kg/m2 [facility] Work Phone: 08-19-2021 13:05-0400 Body temperature 98 [degF] [place] Work Phone: 08-19-2021 13:05-0400 Body weight 97.3 kg [facility] Work Phone: 06-15-2021 20:23-0400 Body height 185.42 cm [facility] Work Phone: 06-15-2021 20:23-0400 Body mass index (BMI) [Ratio] 28.4 kg/m2 [facility] Work Phone: 06-15-2021 20:23-0400 Body temperature 97.8 [degF] [place] Work Phone: 06-15-2021 20:23-0400 Body weight 97.8 kg [facility] Work Phone: 06-15-2021 20:23-0400 Diastolic blood pressure 118 mm[Hg] [facility] Work Phone: 06-15-2021 20:23-0400 Heart rate 129 /min [facility] Work Phone: 06-15-2021 20:23-0400 Respiratory rate 20 /min [place] Work Phone: 06-15-2021 20:23-0400 SaO2% (BldA) [Mass fraction] 96 % [facility] Work Phone: 06-15-2021 20:23-0400 Systolic blood pressure 164 mm[Hg] [facility] Work Phone: 03-18-2021 18:10-0500 Body mass index (BMI) [Ratio] 27.7 kg/m2 [facility] Work Phone: 03-18-2021 18:10-0500 Body temperature 98.2 [degF] [place] Work Phone: 03-18-2021 18:10-0500 Body weight 95.25 kg [facility] Work Phone: 03-18-2021 18:10-0500 Diastolic blood pressure 104 mm[Hg] [facility] Work Phone: 03-18-2021 18:10-0500 Heart rate 115 /min [facility] Work Phone: 03-18-2021 18:10-0500 Respiratory rate 20 /min [place] Work Phone: 03-18-2021 18:10-0500 SaO2% (BldA) [Mass fraction] 99 % [facility] Work Phone: 03-18-2021 18:10-0500 Systolic blood pressure 149 mm[Hg] [facility] Work Phone: 02-15-2021 10:51-0500 Diastolic blood pressure 81 mm[Hg] [facility] Work Phone: 02-15-2021 10:51-0500 Heart rate 82 /min [facility] Work Phone: 02-15-2021 10:51-0500 Systolic blood pressure 132 mm[Hg] [facility] Work Phone: 02-15-2021 09:23-0500 Body mass index (BMI) [Ratio] 28.2 kg/m2 [facility] Work Phone: 02-15-2021 09:23-0500 Body temperature 98.6 [degF] [place] Work Phone: 02-15-2021 09:23-0500 Body weight 97 kg [facility] Work Phone: 02-15-2021 09:23-0500 Respiratory rate 18 /min [place] Work Phone: 02-15-2021 09:23-0500 SaO2% (BldA) [Mass fraction] 98 % [facility] Work Phone: Encounters Encounter Date Encounter Type Care Provider Facility Start: 10-23-2024 End: 10-23-2024 Emergency department patient visit Dr. Josafat Leonard DO Work Phone: -Emergency Department Work Phone: Start: 10-16-2024 End: 10-16-2024 ambulatory [facility] Start: 10-12-2024 End: 10-12-2024 Subsequent hospital visit by physician [facility] Comment on above: Herniated nucleus pu lposus, L4-5; Pain of left lower extremity; Weakness of left foot; Neurogenic bowel; Left foot drop Start: 10-12-2024 End: 10-12-2024 ambulatory [facility] Start: 10-02-2024 End: 10-02-2024 ambulatory [facility] [place] operated by [facility] Start: 10-02-2024 End: 10-02-2024 Office outpatient new 60 minutes Nighat Griffin MD Work Phone: [facility] Comment on above: Herniated nucleus pu lposus, L4-5 (Primary Dx); Paresthesia of upper extremity; Spinal stenosis, cervical region; Spinal stenosis of cervical region; Chronic bilateral low back pain with left-sided sciatica; Pain of left lower extremity; Weakness of left foot; Neurogenic bowel; Back pain with radiculopathy; Cervical myelopathy; Left foot drop Start: 07-24-2024 End: 07-24-2024 ambulatory SURAJ MEYERS [facility] Start: 07-24-2024 End: 07-24-2024 Office outpatient new 45 minutes Suraj Meyers MD Work Phone: [facility] Comment on above: Back pain with radic ulopathy Start: 07-19-2024 End: 07-19-2024 Office outpatient new 60 minutes Radha Britany DO Work Phone: [facility] Comment on above: Cervical myelopathy (Primary Dx); Back pain with radiculopathy Start: 07-19-2024 End: 07-19-[address] [facility] Start: 07-13-2024 End: 07-14-2024 Emergency department patient visit [facility] Comment on above: Acute exacerbation o f chronic low back pain (Primary Dx) Start: 06-28-2024 Encounter for genera l adult medical examination without abnormal findings [facility] Start: 06-28-2024 End: 06-28-2024 Office outpatient new 60 minutes [facility] Work [facility]: [facility] Comment on above: Preventative health care (Primary Dx); Other chronic pain; Vitamin D deficiency; Attention deficit hyperactivity disorder (ADHD), unspecified ADHD type; Hyperlipidemia, unspecified hyperlipidemia type; Bipolar affective disorder, remission status unspecified (Multi); Hyperverbal speech Start: 06-28-2024 End: 06-28-2024 Patient encounter status [facility] Work [facility]: [facility] Work Phone: Start: 06-28-2024 ambulatory [facility] Start: 06-28-2024 Encounter for genera l adult medical examination without abnormal findings [facility] Ambulatory Start: 06-15-2024 End: 06-15-2024 Emergency department patient visit Lisa Polanco MD Work Phone: [facility] Emergency Department Comment on above: Sciatica of left brice e (Primary Dx) Start: 06-06-2024 End: 06-06-2024 Office outpatient visit 25 minutes Sha Foster MD Work Phone: [facility] Comment on above: Cervical radiculopat hy (Primary Dx) Start: 06-06-2024 End: 06-06-2024 Subsequent hospital visit by physician Juanita Hay X-Ray 2 [facility] Comment on above: Cervical radiculopat hy Start: 06-06-2024 End: 06-06-2024 ambulatory [facility] Start: 05-19-2024 End: 05-19-2024 Emergency department patient visit JOSAFAT LEONARD [facility] Emergency Department Comment on above: Accidental fall, ini tial encounter (Primary Dx); Neck sprain, initial encounter; Lumbar radiculopathy, acute; Leg weakness, bilateral Start: 03-07-2024 End: 03-07-2024 Postop follow up visit related to original px Sha Foster MD Work Phone: [facility] Comment on above: Cervical radiculopat hy (Primary Dx) Start: 03-07-2024 End: 03-07-2024 Subsequent hospital visit by physician Juanita Hay X-Ray 3 [facility] Comment on above: Cervical radiculopat hy Start: 03-07-2024 End: 03-07-2024 ambulatory [facility] Start: 02-28-2024 End: 02-28-2024 Patient encounter procedure Jeff Nichols MD Work Phone: [facility] Comment on above: Arrived Start: 02-28-2024 End: 02-28-2024 ambulatory JEFF NICHOLS [facility] Start: 02-22-2024 Evaluation and manag ement of inpatient [facility] Start: 02-22-2024 End: 02-26-2024 Evaluation and management of inpatient Sha Foster MD Work Phone: [facility] 6 Comment on above: Spinal stenosis ([place] Dx); Spinal stenosis, cervical region; Abscess of axilla, left Start: 02-22-2024 Evaluation and manag ement of inpatient [facility] Start: 02-22-2024 End: 02-22-2024 Office outpatient visit 40 minutes Sha Foster MD Work Phone: [facility] Comment on above: Cervical radiculopat hy Start: 02-22-2024 End: 02-22-2024 ambulatory [facility] Start: 02-17-2024 End: 02-17-2024 Subsequent hospital visit by physician [facility] Comment on above: Back pain with radic ulopathy Start: 02-17-2024 End: 02-17-2024 ambulatory [facility] Start: 02-08-2024 End: 02-09-2024 Emergency department patient visit JOSAFAT R [facility] ED Comment on above: Lumbosacral radiculi tis (Primary Dx) Start: 02-08-2024 End: 02-08-2024 Office outpatient visit 40 minutes Sha Foster MD Work Phone: [facility] Comment on above: Back pain with radic ulopathy (Primary Dx) Start: 02-08-2024 End: 02-08-2024 ambulatory [facility] Start: 01-29-2024 End: 01-29-2024 Emergency department patient visit Zuleyka Bryant DO Work Phone: [facility] ED Comment on above: Chronic bilateral lo w back pain with bilateral sciatica (Primary Dx); Incontinence of feces with fecal urgency Start: 01-20-2024 End: 01-20-2024 Emergency department patient visit Kehinde Cota Facility:[facility] Start: 01-12-2024 End: 01-12-2024 Emergency department patient visit Josafat Leonard Facility:[facility] Start: 01-04-2024 End: 01-04-2024 Emergency department patient visit [facility] Facility:[facility] Start: 12-14-2023 End: 12-14-2023 Office outpatient visit 25 minutes Sha Foster MD Work Phone: [facility] Comment on above: Lumbar pain (Primary Dx); Lumbar radiculopathy Start: 12-14-2023 End: 12-14-2023 ambulatory [facility] Start: 12-12-2023 End: 12-12-2023 Emergency department patient visit [facility] Comment on above: Acute exacerbation o f chronic low back pain (Primary Dx) Start: 12-07-2023 End: 12-07-2023 Emergency department patient visit [facility] Start: 11-14-2023 End: 11-15-2023 Emergency department patient visit [facility] Start: 08-28-2023 End: 08-28-2023 Emergency department patient visit [facility] Start: 05-24-2023 ambulatory [facility] Facility :[facility] Start: 05-18-2023 End: 05-18-2023 Emergency department patient visit [facility] Work Phone: Start: 05-04-2023 End: 05-04-2023 Subsequent hospital visit by physician Juanita Hay X-Ray 1 [facility] Comment on above: Lumbar pain Start: 05-04-2023 End: 05-04-2023 Office outpatient new 45 minutes Sha Foster MD Work Phone: [facility] Comment on above: Lumbar pain (Primary Dx); Lumbar radiculopathy Start: 04-10-2023 End: 04-10-2023 Emergency department patient visit [facility] Work Phone: Start: 03-09-2023 End: 03-09-2023 Emergency department patient visit [facility] Work Phone: Start: 12-04-[address] Sha Foster Facility:[id number] Start: 11-09-2022 End: 11-09-2022 [facility] Start: 06-16-2022 End: 06-16-2022 [facility] Start: 03-17-[address] Sha Foster Facility:[id number] Start: 08-20-2021 End: 08-22-2021 [facility] Start: 08-19-2021 End: 08-19-2021 [facility] Start: 06-15-2021 End: 06-15-2021 [facility] Start: 03-18-2021 End: 03-18-2021 [facility] Start: 02-15-2021 End: 02-15-2021 [facility] Start: 02-15-2018 Patient encounter procedure SHA FOSTER Facility:[id number] Start: 01-26-2018 Patient encounter procedure SHA FOSTER Facility:[facility] Start: 01-04-2018 Patient encounter procedure SHA FOSTER Facility:[id number] Start: 10-19-2017 Patient encounter procedure TUAN ALBARADO Facility:[id number] Start: 06-25-2017 Patient encounter procedure SHA FOTSER Facility:[id number] Start: 05-27-2017 End: 05-27-2017 Emergency department patient visit TOM WESLEY Facility:[facility] Procedures Date Procedure Procedure Detail Performing Clinician [...] 02-24-2024 XR tomography Unspec ified body region Sha Foster MD Work Phone: Start: 02-24-2024 End: 02-24-2024 Arthrd ant interbody decompress cervical belw c2 Sha Foster MD Work Phone: Start: 02-24-2024 End: 02-24-2024 Basic metabolic panel calcium total Jewels Nolan [employer] Work Phone: Start: 02-24-2024 EXTRA TUBES Sha lomax MD Work Phone: Start: 02-24-2024 SST TOP Sha lomax MD Work Phone: Start: 02-23-2024 Ecg routine ecg w/le ast 12 lds trcg only w/o i&r Jewels Nolan [employer] APPLIC[employer] Work Phone: Start: 02-23-2024 Drug screen quantita tive vancomycin Param Bogner PharmD Start: 02-23-2024 Cul bact xcpt urine blood/stool aerobic isol Qi Castillo [employer] AP[employer]IC[employer] Work Phone: Start: 02-23-2024 Drug screen quantita tive vancomycin Param Bogner PharmD Start: 02-23-2024 EXTRA TUBES Sha lomax MD Work Phone: Start: 02-23-2024 LAVENDER TOP Sha lomax MD Work Phone: Start: 02-22-2024 Ct thorax w/contrast material Haley Yates [employer] APPLIC[employer] Work Phone: Start: 02-22-2024 Culture bacterial bl ood aerobic w/id isolates Haley Yates [employer] APPLICATOR[facility] Work Phone: Start: 02-22-2024 End: 02-22-2024 C-reactive protein Haley Yates [employer] APPLIC[employer] Work Phone: Start: 02-22-2024 End: 02-22-2024 Comprehensive metabolic panel Dev Martel PA-C Work Phone: Start: 02-22-2024 EXTRA TUBES Sha lomax MD Work Phone: Start: 02-22-2024 SST TOP Sha lomax MD Work Phone: Start: 01-29-2024 Urnls dip stick/tabl et rgnt auto w/o microscopy [facility] DO Work Phone: Start: 01-29-2024 C-reactive protein [facility] DO Work Phone: Start: 01-29-2024 Comprehensive metabo lic panel [facility] DO Work Phone: Start: 02-20-2024 Radex spine lumbosac ral minimum 4 views Sha Foster MD Work Phone: Start: 08-20-2021 Viral antigen assay Start: 09-28-2017 Lipid 1996 panel - S matthew or Plasma Sha Foster MD Work Phone: Plan of Treatment Date Care Activity Detail Author Start: 08-12-2031 Zoster Vaccines (1 of 2) Zoster Vaccines (1 of 2) [facility] Start: 02-25-2027 Diabetes mellitus screening Diabetes Screening [facility] Start: 06-29-2025 Yearly Adult Physical Yearly Adult Physical [facility] Start: 11-13-2024 Influenza vaccination [facility] Start: 10-31-2024 End: 10-31-2024 Patient encounter procedure 10/31/2024 10:00 AM EDT Office Visit [facility] [address] [facility] [address] [place] [phone] Nighat Griffin MD [address] [facility] [place] [address] [facility] Start: 10-16-2024 End: 10-16-2024 Clinical Support 10/16/2024 4:00 PM EDT Clinical Support [facility] [address] [place] [phone] [place] [address] [place], [place] [phone] [facility] Start: 10-13-2024 Influenza vaccination Flu vaccine (Season Ended) [facility] Start: 10-12-2024 End: 10-12-2024 Patient encounter procedure 10/12/2024 1:45 PM EDT Appointment [address] [phone] [facility] Start: 10-02-2024 End: 10-02-2025 MR Lumbar spine WO contrast MR lumbar spine wo IV contrast Imaging Routine Herniated nucleus pulposus, L4-5 Pain of left lower extremity Weakness of left foot Neurogenic bowel Left foot drop Expected: 10/02/2024, Expires: 10/02/2025 [facility] Service Area Work Phone: Comment on above: Expected: 10/02/2024, Expires: Start: 10-02-2024 End: 10-02-2024 Patient encounter procedure 10/02/2024 11:30 AM EDT Consult [facility] [address] [place] [address] Nighat Griffin MD [address] [place] [address] [facility] Start: 07-24-2024 End: 07-24-2024 Patient encounter procedure 07/24/2024 8:30 AM EDT Office Visit [address] [place] [phone] Suraj Meyers MD [address] [place] [address], [address] [place] [address] [facility] Start: 07-19-2024 End: 07-19-2024 Patient encounter procedure 07/19/2024 10:50 AM EDT Office Visit [facility] [address] [facility] [address] [place] [phone] Radha Dixon DO [address] [place] [address] [facility] Start: 07-04-2024 End: 07-04-2024 Patient encounter procedure 07/04/2024 8:30 AM EDT Office Visit [facility] [address] [phone] Sha Foster MD [address] [facility], [address] [place] [phone] [facility] Start: 06-28-2024 End: 06-28-2024 Patient encounter procedure 06/28/2024 9:20 AM EDT Office Visit [facility] [address] [facility] [address] [facility] [place] [phone] Josafat Leonard DO [address] [facility], [facility] [address] [place] [address] [facility] Start: 06-06-2024 End: 06-06-2025 XR Cervical spine 2 or 3 Views [facility] Service Area Work Phone: Comment on above: Expected: 06/06/2024, Expires: Start: 06-06-2024 End: 06-06-2024 Patient encounter procedure 06/06/2024 11:00 AM EDT Office Visit [facility] [address] [place] [phone] Sha Foster MD [address] [facility], [address] [place] [phone] [facility] Start: 03-13-2024 End: 03-13-2024 Patient encounter procedure 03/13/2024 9:30 AM EST Office Visit [place] [address] [place] [phone] Jeff Nichols MD [address] [place] [address] [facility] [address] [place] [address] [facility] Start: 03-07-2024 End: 03-07-2024 Patient encounter procedure 03/07/2024 11:15 AM EST Office Visit [facility] [address] [place] [address] Sha Foster MD [address] [facility], [address] [place] [address], [place] [phone] [facility] Start: 03-02-2024 Documentation procedure 03/02/2024 Scanned Document [facility] [address] [facility] [place] [phone] Sha Foster MD [address] [facility], [address] [place] [address], [place] [address] [facility] Start: 02-28-2024 End: 02-28-2024 Patient encounter procedure 02/28/2024 9:30 AM EST Office Visit [place] [address] [facility] [phone] Jeff Nichols MD [address] [place] [address] [place] [address] [facility] Start: 02-22-2024 End: 02-22-2024 Patient encounter procedure 02/22/2024 10:30 AM EST Office Visit [facility] [address] [facility] [place] [phone] Sha Foster MD [address] [facility], [address] [place] [address], [place] [phone] [facility] Start: 02-08-2024 End: 02-07-2025 MR Cervical spine WO contrast MR cervical spine wo IV contrast Imaging STAT Back pain with radiculopathy Expected: 02/08/2024, Expires: 02/07/2025 [facility] Service Area Work Phone: Comment on above: Expected: 02/08/2024, Expires: Start: 02-08-2024 End: 11-26-2025 MR Lumbar spine W contrast IV MR lumbar spine w IV contrast Imaging STAT Back pain with radiculopathy Expected: 02/08/2024, Expires: 02/07/2025 [facility] Work Phone: Comment on above: Expected: 02/08/2024, Expires: Start: 02-08-2024 End: 02-07-2025 MR Thoracic spine WO contrast MR thoracic spine wo IV contrast Imaging STAT Back pain with radiculopathy Expected: 02/08/2024, Expires: 02/07/2025 [facility] Work Phone: Comment on above: Expected: 02/08/2024, Expires: Start: 12-14-2023 End: 12-13-2024 MR Lumbar spine WO and W contrast IV MR lumbar spine w and wo IV contrast Imaging Routine Lumbar pain Lumbar radiculopathy Expected: 12/14/2023 (Approximate), Expires: 12/13/2024 [facility] Service Area Work Phone: Comment on above: Expected: 12/14/2023 (Approximate), Expi res: 12/13/2024 Start: 11-14-2023 COVID-19 Vaccine ( season) COVID-19 Vaccine ( season) [facility] Start: 11-14-2023 COVID-19 Vaccine ( season) COVID-19 Vaccine ( season) [facility] Start: 11-14-2023 Influenza vaccination Influenza Vaccine (#1) [facility] Start: 10-14-2023 Influenza vaccination Flu vaccine (#1) [facility] Start: 05-18-2023 [facility] Start: 05-18-2023 End: 05-18-2023 Patient encounter procedure 05/18/2023 2:00 PM EST Appointment [address] [phone] [facility] Start: 05-04-2023 End: 05-04-2024 MR Lumbar spine WO and W contrast IV MR lumbar spine w and wo IV contrast Imaging Routine Lumbar pain Lumbar radiculopathy Expected: 05/04/2023 (Approximate), Expires: 05/04/2024 [facility] Service Area Work Phone: Comment on above: Expected: 05/04/2023 (Approximate), Expi res: 05/04/2024 Start: 04-10-2023 [facility] Start: 03-09-2023 [facility] Start: 11-13-2022 Influenza vaccination Influenza Vaccine (#1) [facility] Start: 09-28-2022 Lipid panel Lipid Panel [facility] Start: 06-16-2022 Electrocardiographic procedure [facility] Start: 06-16-2022 Plain chest X-ray Chest 1 View (Portable) [facility] Start: 06-16-2022 Troponin I measurement [facility] Start: 06-16-2022 [facility] Start: 2021 Lipid panel Lipids [facility] Start: 09-28-2020 Diabetes mellitus screening Diabetes Screening [facility] Start: 09-28-2018 Hemoglobin A1c measurement Diabetes: Hemoglobin A1C [facility] Start: 11-17-2013 DTaP/Tdap/Td Vaccines (1 - Tdap) DTaP/Tdap/Td Vaccines (1 - Tdap) [facility] Start: 2008 HPV Vaccines (1 - 3-dose standard series) HPV Vaccines (1 - 3-dose standard series) [facility] Start: 08-12-2003 DTaP/Tdap/Td Vaccines (1 - Tdap) DTaP/Tdap/Td Vaccines (1 - Tdap) [facility] Start: 2000 DTaP/Tdap/Td vaccine (1 - Tdap) DTaP/Tdap/Td vaccine (1 - Tdap) [facility] Start: 2000 Hepatitis A Vaccines (1 of 2 - Risk 2-dose series) Hepatitis A Vaccines (1 of 2 - Risk 2-dose series) [facility] Start: 2000 Hepatitis B vaccine (1 of 3 - 19+ 3-dose series) Hepatitis B vaccine (1 of 3 - 19+ 3-dose series) [facility] Start: 2000 Hepatitis B Vaccines (1 of 3 - 19+ 3-dose series) Hepatitis B Vaccines (1 of 3 - 19+ 3-dose series) [facility] Start: 2000 Pneumococcal 0-49 years Vaccine (1 of 2 - PCV) Pneumococcal 0-49 years Vaccine (1 of 2 - PCV) [facility] Start: 2000 Pneumococcal Vaccine: Pediatrics and At-Risk Adult Patients (1 of 2 - PCV) Pneumococcal Vaccine: Pediatrics and At-Risk Adult Patients (1 of 2 - PCV) [facility] Start: 08-12-1999 Hepatitis C screening [facility] Start: 1996 HIV screening HIV screen [facility] Start: 1994 Varicella vaccination Varicella Vaccines (1 of 2 - 13+ 2-dose series) [facility] Start: 1994 Varicella vaccine (1 of 2 - 13+ 2-dose series) Varicella vaccine (1 of 2 - 13+ 2-dose series) [facility] Start: 1993 Depression Screen Depression Screen [facility] Start: 08-12-1987 Pneumococcal 0-64 years Vaccine (1 of 2 - PCV) Pneumococcal 0-64 years Vaccine (1 of 2 - PCV) [facility] Start: 08-12-1987 Pneumococcal Vaccine: Pediatrics (0 to 5 Years) and At-Risk Patients (6 to 64 Years) (1 of 2 - PCV) Pneumococcal Vaccine: Pediatrics (0 to 5 Years) and At-Risk Patients (6 to 64 Years) (1 of 2 - PCV) [facility] Start: 1982 MMR Vaccines (1 of 1 - Standard series) MMR Vaccines (1 of 1 - Standard series) [facility] Start: 1982 Varicella vaccination Varicella Vaccines (1 of 2 - 2-dose childhood series) [facility] Start: 02-11-1982 COVID-19 Vaccine (#1) COVID-19 Vaccine (#1) [facility] Start: 1981 Hepatitis B Vaccines (1 of 3 - 3-dose series) Hepatitis B Vaccines (1 of 3 - 3-dose series) [facility] Start: 1981 Yearly Adult Physical Yearly Adult Physical [facility] Alanine aminotransfe rase [Enzymatic activity/volume] in Serum or Plasma [facility] Albumin [Mass/volume ] in Serum or Plasma [facility] Alkaline phosphatase [Enzymatic activity/volume] in Serum or Plasma [facility] Anion gap measurement [facility] Aspartate aminotrans ferase [Enzymatic activity/volume] in Serum or Plasma [facility] Bacteria identified in Blood by Culture Blood Culture Microbiology Routine 02/22/2024 8:36 PM EST [facility] Work Phone: End: 02-23-2024 Bacteria identified in Unspecified specimen by Culture Tissue/Wound Culture/Smear Microbiology Routine Once (Lab) for 1 Occurrences starting 02/23/2024 until 02/23/2024 [facility] Work Phone: Comment on above: Once (Lab) for 1 Occurrences starting until 02/23/2024 End: 02-27-2024 Basic metabolic 2000 panel - Serum or Plasma Basic metabolic panel Lab Routine Morning draw (Lab) for 3 Occurrences starting 02/25/2024 until 02/27/2024, 2 completed [facility] Work Phone: Comment on above: Morning draw (Lab) for 3 Occurrences sta rting 02/25/2024 until 02/27/2024, 2 completed Bilirubin, total measurement [facility] BUN/Creatinine ratio [facility] Calcium [Mass/volume ] in Serum or Plasma [facility] Carbon dioxide, tota l [Moles/volume] in Serum or Plasma [facility] End: 02-27-2024 CBC panel - Blood by Automated count CBC Lab Routine Morning draw (Lab) for 3 Occurrences starting 02/25/2024 until 02/27/2024, 2 completed [facility] Work Phone: Comment on above: Morning draw (Lab) for 3 Occurrences sta rting 02/25/2024 until 02/27/2024, 2 completed Chloride [Moles/volu me] in Serum or Plasma [facility] Creatinine [Moles/vo lume] in Serum or Plasma [facility] ECG 12 lead ECG 12 lead ECG STAT 02/23/2024 2:38 PM EST [facility] Work Phone: End: 02-22-2024 Extra Urine [employer] Extra Urine [facility] Lab Timed Once for 1 Occurrences starting 02/22/2024 until 02/22/2024 [facility] Work Phone: Comment on above: Once for 1 Occurrences starting 02/22/20 until 02/22/2024 Glucose [Mass/volume ] in Serum or Plasma [facility] End: 02-22-2024 Glucose [Mass/volume] in Serum or Plasma POCT Glucose Point of Care Testing - Docked Device Routine Once (Lab) for 1 Occurrences starting 02/22/2024 until 02/22/2024 [facility] Work Phone: Comment on above: Once (Lab) for 1 Occurrences starting until 02/22/2024 Glucose [Mass/volume ] in Serum or Plasma POCT Glucose Point of Care Testing - Docked Device Routine As needed (Lab) until discontinued starting 02/24/2024 [facility] Work Phone: Comment on above: As needed (Lab) until discontinued start ing 02/24/2024 Hematocrit [Volume F raction] of Blood [facility] Hemoglobin [Mass/vol ume] in Blood [facility] End: 02-24-2024 Incentive spirometry Instruct Incentive spirometry Instruct Respiratory Care Routine Once for 1 Occurrences starting 02/24/2024 until 02/24/2024 [facility] Work Phone: Comment on above: Once for 1 Occurrences starting 02/24/20 until 02/24/2024 Leukocytes [#/volume ] in Blood [facility] Mean corpuscular hem oglobin concentration determination [facility] Mean corpuscular hem oglobin determination [facility] Measurement of renal function [facility] End: 02-17-2024 MR Cervical spine WO contrast [facility] Servi ce Area Work Phone: Comment on above: Once for 1 Occurrences starting 02/17/20 until 02/17/2024 End: 02-17-2024 MR Lumbar spine WO and W contrast IV [facility] Service Area Work Phone: Comment on above: Once for 1 Occurrences starting 02/17/20 until 02/17/2024 End: 10-12-2024 MR Lumbar spine WO contrast [facility] Service Area Work Phone: Comment on above: Once for 1 Occurrences starting 10/13/19 until 10/12/2024 End: 02-17-2024 MR Thoracic spine WO contrast [facility] Servi ce Area Work Phone: Comment on above: Once for 1 Occurrences starting 02/17/20 24 until 02/17/2024 Neutrophil count [facility] Neutrophil percent differential count [facility] Patient Education [facility] Work Phone: Patient referral [facility] Work Phone: Platelets [#/volume] in Blood [facility] Potassium [Moles/vol ume] in Serum or Plasma [facility] Red blood cell count [facility] Red cell distributio n width determination [facility] Sodium [Moles/volume ] in Serum or Plasma [facility] Total protein measurement [facility] Urea nitrogen [Mass/ volume] in Serum or Plasma [facility] End: 02-22-2024 Urinalysis complete W Reflex Culture panel - Urine [facility] Service Area Work Phone: Comment on above: Once (Lab) for 1 Occurrences starting until 02/22/2024 Once for 1 Occurrenc es starting 02/22/2024 until 02/22/2024 Immunizations Immunization Date Immunization Notes Care Provider Ashley ricardo 11-16-2013 tetanus and diphther ia toxoids, adsorbed, preservative free, for adult use (2 Lf of tetanus toxoid and 2 Lf of diphtheria toxoid) [facility] Payers Date Payer Category Payer Unknown [id number] 2023 Self-pay [id number] 2023 Unknown [id number] 2018 Medicaid (Managed Care) 1.2. [id number]. [id number] 2018 Unknown AVANI CARDENAS [id number] 2018-Present [address] [place] [address] 1.2.840.454708.1.13.647.2. 7.3.198722.315 2013 Unknown [id number] 2013 Unknown [id number] 1981 Unknown [id number] 2.840.1.068468.3.579.2. 355 1981 Unknown [id number] 2.840.1.594323.3.579.2. 1981 Unknown [id number] 2.840.1.527703.3.579.2. 1981 Unknown [id number] 2840.1.628666.3.579.2. 1981 Unknown [id number] 2.840.1.101073.3.579.2. 355 1981 Unknown [id number] 840.1.583603.3.579.2. 1981 Unknown [id number] 2.840.1.972784.3.579.2. 1067 1981 Unknown [id number] 840.1.513557.3.579.2. 1067 1981 Unknown [id number] 2840.1.434034.3.579.2. 1244 1981 Unknown [id number] 2840.1.179258.3.579.2. 1245 1981 Unknown [id number] 2.16840.1.608999.3.579.2. 1245 1981 Unknown [id number] 2.840.1.290322.3.579.2. 1245 1981 Unknown [id number] 2.16840.1.920274.3.579.2. 1246 1981 Unknown [id number] 2.840.1.415388.3.579.2. 1245 1981 Unknown [id number] 2.840.1.432021.3.579.2. 1245 1981 Unknown [id number] 2.840.1.321402.3.579.2. 1245 1981 Unknown [id number] 2.840.1.288046.3.579.2. 1245 1981 Unknown [id number] 2.0.1.604689.3.579.2. 1245 1981 Unknown [id number] 2.0.1.130607.3.579.2. 1245 1981 Unknown [id number] 04.30.830.1.437891.3.579.2. 182 1981 Unknown [id number] 2.840.1.613854.3.579.2. 182 1981 Unknown [id number] 04.30.830.1.432662.3.579.2. 182 1981 Unknown [id number] 04.30.830.1.084870.3.579.2. 182 1981 Unknown [id number] 04.30.830.1.157910.3.579.2. 182 1981 Unknown [id number] .840.1.463964.3.579.2. 182 1981 Unknown [id number] 2840.1.145696.3.579.2. 182 1981 Unknown [id number] 840.1.647914.3.579.2. 182 1981 Unknown [id number] 2840.1.128114.3.579.2. 182 1981 Unknown [id number] 2.840.1.574413.3.579.2. 1242 1981 Unknown [id number] 2.16840.1.759457.3.579.2. 1243 1981 Unknown [id number] 2.16840.1.599895.3.579.2. 1243 1981 Unknown [id number] 2.840.1.880297.3.579.2. 1243 1981 Unknown [id number] 2.840.1.133001.3.579.2. 1242 1981 Unknown [id number] 2.840.1.812515.3.579.2. 1242 1981 Unknown [id number] 2.840.1.607959.3.579.2. 1242 1981 Unknown [id number] 2.840.1.538596.3.579.2. 1242 1981 Unknown [id number] 2.840.1.487738.3.579.2. 1247 Unknown [id number] Unknown [id number] 2.16840.1.044507.3.579.2. 462 Unknown [id number] 2.840.1.081555.3.579.2. 462 Unknown [id number] 2.840.1.964756.3.579.2. 462 Unknown [id number] 2.840.1.129691.3.579.2. 462 Unknown [id number] 2.840.1.762439.3.579.2. 462 Unknown [id number] 2.840.1.608920.3.579.2. 462 Social History Date Type Detail Facility Start: 06-15-2021 End: 05-18-2023 Tobacco smoking status WIIS Unknown if ever smoked [facility] Start: 01-24-2020 [facility] Start: 08-04-2020 Cigarettes [facility] Start: 1980 Sex Assigned At Male [facility] Start: 05-04-2023 Gender identity Identifies as male gender (finding) [facility] Work Phone: Start: 05-04-2023 Sexual orientation Heterosexual (finding) [facility] Work Phone: Start: 04-24-2023 End: 07-19-2024 Exposure to SARS-CoV-2 (event) Not sure [facility] Start: 12-22-2016 End: 10-23-2024 Tobacco smoking status NHIS Smokes tobacco daily [facility] Start: 02-22-1997 History of tobacco use Cigarette Smoker [facility] Start: 12-22-2016 End: 02-23-2024 Tobacco use and exposure Smokeless tobacco non-user [facility] Start: 12-12-2023 End: 07-13-2024 Alcoholic beverage intake Current drinker of alcohol (finding) [facility] Start: 12-12-2023 End: 02-23-2024 History of Social function [facility] Start: 12-12-2023 End: 02-23-2024 Alcohol Use Disorder Identification Test - Consumption [AUDIT-C] [facility] How often to you hav e a drink containing alcohol? Never [facility] Start: 02-06-2022 How many standard drinks containing alcohol do you have on a typical day? Patient does not drink [facility] Start: 08-12-2016 Alcohol Comment rarely [facility] Start: 1980 Sex assigned at Not on file [facility] Has the [employer], [employer] or water [employer] threatened to shut off services in your home in past 12Mo No [facility] How hard is it for y ou to pay for the very basics like food, housing, medical care, and heating Somewhat hard [facility] How often to you hav e a drink containing alcohol? Monthly or less [facility] How many standard dr inks containing alcohol do you have on a typical day? 1 or 2 [facility] How often do you hav e 6 or more drinks on 1 occasion? Less than monthly [facility] Start: 07-03-2014 Sex Male (finding) [facility] Start: 07-19-2024 Alcoholic beverage intake Ex-drinker (finding) [facility] Work Phone: Medical Equipment Procedure Code Equipment Code Equipment Origin al Text Equipment Identifier Dates Acp Plate 40mm 2-Level 757_imp Start: 02-24-2024 [employer] [id number] Start: 02-24-2024 Spacer, Hedron C , 14x16, 7mm, 7 Degree - Sna - [id number] Start: 02-24-2024 Spacer, Hedron C , 14x16, 7mm, 7 Degree - Sna - [id number] Start: 02-24-2024 Screw, Acp, Self Drill, 3.5 X 15mm, Variable - Sna - [id number] Start: 02-24-2024 Functional Status Date Assessment Result Facility [facility] Mental Status Date Assessment Result Facility 10-23-2024 Cognitive function Voice/Name [facility] Work Phone: 06-16-2022 Cognitive function Voice/Name [facility] Work Phone: Clinical Notes 11-09-2022 to 10-23-2024 Note Date & Type Note Facility 10-23-2024 Discharge summary [facility] 10-23-2024 Discharge summary Note Date/Time October 23, 2024 4:03pm [facility] Medical Records Department [address] [place] [address] Emergency Department Summary 10/23/24 MR#: [id number] Acct: [id number] Name: HARMAN JAMIL Rep #:[id number] : 1980 44 From: Caleb Smith DO PCP: Dr. Josafat Leonard DO Status:REG ER Location: ED ADDENDUM by Dr. Caleb Smith DO on 10/23/24 at 1603 Patient's EKG reviewed and showed sinus rhythm with a rate of 70 bpm. QTc was noted to be 437 with a normal CO interval 144. 10/23/24 1603<Electronically signed by Caleb [...] brought him in here to be evaluated. [facility] Medical History ADHD Sciatica Cervical radiculopathy [...] states that earlier today he went to [facility] for a psych eval and he states that this appointment went well. He states that he stopped at a friend's house and then was on his way to see his mother and he notes that he ended up here and is not sure what happened. He denies any history of drug abuse. Patient's bkqyk-mg-cpjd glucose was noted to be 105. Patient [...] DO [Primary Care Provider] - Print Language: Egyptian Disposition Disposition: Against Medical Advice What to do if you have Problems For any increased pain, shortness of breath, bleeding, nausea or vomiting, chestpain, or any unexpected problems, contact your Primary Care Provider. Call [facility] ([phone]) or report to the closest Emergency Room. Call 911 if necessary. 10/23/24 1602 <Electronically signed by Caleb Smith DO> Cosigner Signature (if applicable): CC: Dr. Josafat Leonard DO ~ Signed [facility] Work Phone: 1(237) 282-499107-21-2025 History of Present illness Narrative* Nighat Griffin [...] and L5-S1, with vacuum phenomenon. There is kxfy-ll-pkzweoaa bilateral neural foraminal stenosis at these levels. [...] 5/5 finger flexors, 5-/5 interossei, and 5/5 stagecraft professor LE strength - 4/5 on the left [...] 6. Ergonomics: -Left ankle foot orthotic from [employer] 7. Return to clinic for follow-up with [...] referring provider, Dr. Dixon documented in this [facility] Work Phone: 1(662) 731-118907-21-2025 Instructions* Patient Instructions* Nighat Griffin MD - [...] provided -Get a left ankle-foot orthotic from [employer] -Lumbar MRI ordered -Do your Best to completely stop smoking cigarettes -Follow-up after MRI documented in this [facility] Work Phone: 1(126) 871-512805-12-2025 History and physical note* Suraj Meyers MD [...] examinationpreserved. NEURO: Alert and oriented X 3 V BELT CURER normal as tested without focal neurological deficit [...] views Result Date: 06/06/2024 Interpreted By: Sha Fotser, STUDY: XR CERVICAL SPINE 2-3 VIEWS; 06/06/2024 11:08 am INDICATION: Signs/Symptoms:Pain. ACCESSION NUMBER(S): [id number] ORDERING CLINICIAN: SHA FOSTER FINDINGS: AP lateral [...] Sha Foster 06/06/2024 3:56 PM Dictation workstation: [id number] CT lumbar spine wo IV contrast Result [...] and L5-S1, with vacuum phenomenon. There is kgig-yo-xaubmctf bilateral neural foraminal stenosis at these levels. [...] 10:52 am INDICATION: Signs/Symptoms:neck pain. ACCESSION NUMBER(S): [id number] ORDERING CLINICIAN: SHA FOSTERFINDINGS: AP lateral x-rays [...] Sha Foster 03/07/2024 11:17 AM Dictation workstation: [id number] MR cervical spine wo IV contrast Result Date: 02/18/2024 Interpreted By: Luana Lawson and Lawrence Austen STUDY: MR CERVICAL SPINE WO IV CONTRAST; MR LUMBAR SPINE W AND WO IV CONTRAST; MR THORACIC SPINE WO IV CONTRAST; 02/17/2024 7:08 pm; 02/17/2024 7:09 pm INDICATION: Signs/Symptoms:pain. ,M54.10 Radiculopathy, site unspecified COMPARISON: Edaluvdodu89/07/2018, MRI 08/17/2016. ACCESSION NUMBER(S): [id number]; [id number]; [id number] ORDERING CLINICIAN: SHA FOSTER TECHNIQUE: Sagittal T1, [...] Luana Lawson 02/18/2024 11:18 AM Dictation workstation: [id number] MR thoracic spine wo IV contrast Result Date: 02/18/2024 Interpreted By: Luana Lawsno and Lawrence Austen STUDY: MR CERVICAL SPINE WO IV CONTRAST; MR LUMBAR SPINE W AND WO IV CONTRAST; MR THORACIC SPINE WO IV CONTRAST; 02/17/2024 7:08 pm; 02/17/2024 7:09 pm INDICATION: Signs/Symptoms:pain. ,M54.10 Radiculopathy, site unspecified COMPARISON: Pxdzrgbpwl59/07/2018, MRI 08/17/2016. ACCESSION NUMBER(S): [id number]; [id number]; [id number] ORDERING CLINICIAN: SHA FOSTER TECHNIQUE: Sagittal T1, [...] Luana Lawson 02/18/2024 11:18 AM Dictation workstation: [id number] MR lumbar spine w and wo IV contrast Result Date: 02/18/2024 Interpreted By: Luana Lawson and Lawrence Usama STUDY: MR CERVICAL SPINE WO IV CONTRAST; MR LUMBAR SPINE W AND WO IV CONTRAST; MR THORACIC SPINE WO IV CONTRAST; 02/17/2024 7:08 pm; 02/17/2024 7:09 pm INDICATION: Signs/Symptoms:pain. ,M54.10 Radiculopathy, site unspecified COMPARISON: Uucdaszooa89/07/2018, MRI 08/17/2016. ACCESSION NUMBER(S): [id number]; [id number]; [id number] ORDERING CLINICIAN: SHA FOSTER TECHNIQUE: Sagittal T1, [...] Luana Lawson 02/18/2024 11:18 AM Dictation workstation: [id number] XR lumbar spine 2-3 views Result Date: [...] visit with any questions or concerns at [phone] M-F 8-4 pm Suraj Meyers M.D. Label Rewinder , Division of Pain Medicine [facility] Lead Mechanic of Anesthesiology and Pain Medicine [facility] [employer] [place] [address] [place], [place] [id number] Office: [phone] Suraj Meyers MD [1] Past Medical History: Diagnosis Date Contusion of chest wall 06/28/2024 Disease due to severe acute respiratory syndrome coronavirus 2 (SARS-CoV-2) 06/28/2024 Fall 06/28/2024 Fever 06/28/2024 Marijuana use 09/04/2014 Per tox screen 08/2014: Patient informed he will receive no further controlled medication scripts from physicians at [facility]. Also violation of signed controlled substance agreement. [...] history on file. [4] No Known Allergies [facility] Work Phone: 1(810) 113-279005-12-2025 History and physical note* Suraj Meyers MD [...] examinationpreserved. NEURO: Alert and oriented X 3 V BELT CURER normal as tested without focal neurological deficit [...] 06/06/2024 11:08 am INDICATION: Signs/Symptoms:Pain. ACCESSION NUMBER(S): [id number] ORDERING CLINICIAN: SHA FOSTER FINDINGS: AP lateral [...] Sha Foster 06/06/2024 3:56 PM Dictation workstation: [id number] CT lumbar spine wo IV contrast Result [...] and L5-S1, with vacuum phenomenon. There is eclg-io-erosqwcx bilateral neural foraminal stenosis at these levels. [...] 10:52 am INDICATION: Signs/Symptoms:neck pain. ACCESSION NUMBER(S): [id number] ORDERING CLINICIAN: SHA FOSTERFINDINGS: AP lateral x-rays [...] Sha Foster 03/07/2024 11:17 AM Dictation workstation: [id number] MR cervical spine wo IV contrast Result Date: 02/18/2024 Interpreted By: Luana Lawson and Lawrence Austen STUDY: MR CERVICAL SPINE WO IV CONTRAST; MR LUMBAR SPINE W AND WO IV CONTRAST; MR THORACIC SPINE WO IV CONTRAST; 02/17/2024 7:08 pm; 02/17/2024 7:09 pm INDICATION: Signs/Symptoms:pain. ,M54.10 Radiculopathy, site unspecified COMPARISON: Orhjcxyvxn73/07/2018, MRI 08/17/2016. ACCESSION NUMBER(S): [id number]; [id number]; [id number] ORDERING CLINICIAN: SHA FOSTER TECHNIQUE: Sagittal T1, [...] Luana Lawson 02/18/2024 11:18 AM Dictation workstation: [id number] MR thoracic spine wo IV contrast Result Date: 02/18/2024 Interpreted By: Luana Lawson and Lawrence Usama STUDY: MR CERVICAL SPINE WO IV CONTRAST; MR LUMBAR SPINE W AND WO IV CONTRAST; MR THORACIC SPINE WO IV CONTRAST; 02/17/2024 7:08 pm; 02/17/2024 7:09 pm INDICATION: Signs/Symptoms:pain. ,M54.10 Radiculopathy, site unspecified COMPARISON: Lvahivjfyi13/07/2018, MRI 08/17/2016. ACCESSION NUMBER(S): [id number]; [id number]; [id number] ORDERING CLINICIAN: SHA FOSTER TECHNIQUE: Sagittal T1, [...] Luana Lawson 02/18/2024 11:18 AM Dictation workstation: [id number] MR lumbar spine w and wo IV contrast Result Date: 02/18/2024 Interpreted By: Luana Lawson and Lawrence Austen STUDY: MR CERVICAL SPINE WO IV CONTRAST; MR LUMBAR SPINE W AND WO IV CONTRAST; MR THORACIC SPINE WO IV CONTRAST; 02/17/2024 7:08 pm; 02/17/2024 7:09 pm INDICATION: Signs/Symptoms:pain. ,M54.10 Radiculopathy, site unspecified COMPARISON: Uslyepajvd88/07/2018, MRI 08/17/2016. ACCESSION NUMBER(S): [id number]; [id number]; [id number] ORDERING CLINICIAN: SHA FOSTER TECHNIQUE: Sagittal T1, [...] Luana Lawson 02/18/2024 11:18 AM Dictation workstation: [id number] XR lumbar spine 2-3 views Result Date: [...] visit with any questions or concerns at [phone] M-F 8-4 pm Suraj Meyers M.D. Label Rewinder , Division of Pain Medicine [facility] Lead Mechanic of Anesthesiology and Pain Medicine [facility] [employer] [place] [address] [place] [address] Office: [phone] Suraj Meyers MD [1] Past Medical History: Diagnosis Date Contusion of chest wall 06/28/2024 Disease due to severe acute respiratory syndrome coronavirus 2 (SARS-CoV-2) 06/28/2024 Fall 06/28/2024 Fever 06/28/2024 Marijuana use 09/04/2014 Per tox screen 08/2014: Patient informed he will receive no further controlled medication scripts from physicians at [facility]. Also violation of signed controlled substance agreement. [...] [4] No Known Allergies documented in this [facility] Work Phone: 1(700) 357-245105-12-2025 History of Present illness Narrative* Deandra May [...] Objective Physical Exam Assessment/Plan documented in this [facility] Work Phone: 1(289) 465-788505-07-2025 History of Present illness Narrative* Radha Boaz [...] There is no tremor. On coordination testing, wbksvt-lral-zweofx testing are done well bilaterally. Sensory examination [...] further controlled medication scripts from physicians at [facility]. Also violation of signed controlled substance agreement. [...] Date TONSILLECTOMY 09/06/2015 Tonsillectomy documented in this [facility] Work Phone: 1(705) 369-281405-07-2025 Instructions* Patient Instructions* Radha Dixon DO - [...] while taking this medication. [facility] Phone: 1([phone]) 140-788105-02-2025 Hospital Discharge instructions* Discharge Instr - DONNIE* [...] Contact Information Primary Emergency Contact: Sis Delgadillo [facility] Relation: Other Past Surgical History: Past Surgical [...] MENTAL STATUS:} IV Access: { DONNIE IV ACCESS:537182054} Nursing Mobility/ADLs: Walking {CHP DME ADLs:121769315} Transfer {CHP DME ADLs:715281699} Bathing {CHP DME ADLs:442019752} Dressing {CHP DME ADLs:739947634} Toileting {CHP DME ADLs:475816447} Feeding {CHP DME ADLs:477485783} Clearing House Clerk {CHP DME ADLs:981851387} Med Delivery { DONNIE MED Delivery:777513750} Wound Care Documentation and Therapy: Elimination: Continence: Bowel: {YES / NO:} Bladder: {YES / NO:} Urinary Catheter: {Urinary Catheter:009680352} Colostomy/Ileostomy/Ileal Conduit: {YES / NO:} Date of Last BM: No intake or output data in the 24 hours ending 07/14/24 0020 No intake/output data recorded. Safety Concerns: { DONNIE Safety Concerns:382805724} Impairments/Disabilities: { DONNIE Impairments/Disabilities:456392002} Nutrition Therapy: Current Nutrition Therapy: { DONNIE Diet List:993596762} Routes of Feeding: {P DME Other Feedings:049751230} Liquids: {Rolling Up Machine Operator liquid thickness:02709} Daily Fluid Restriction: {CHP DME Yes amt example:564890107} Last Modified Barium Swallow with Video (Video Swallowing Test): {Done Not Done Date:} Treatments at the Time of Hospital Discharge: Respiratory Treatments: Oxygen Therapy: {Therapy; copd oxygen:67050} Ventilator: { CC Vent List:638705209} Rehab Therapies: {THERAPEUTIC INTERVENTION:7686033227} Weight Bearing Status/Restrictions: {[facility] Weight Bearin} Other Medical Equipment (for information only, NOT a DME order): {EQUIPMENT:640549052} Other Treatments: Patient's personal belongings (please select all that are sent with patient): {[facility] DME Belongings:885195901} RN SIGNATURE: {Esignature:443002117} CASE MANAGEMENT/SOCIAL WORK SECTION Inpatient Status Date: Readmission Risk Assessment Score: [facility] RISK OF UNPLANNED READMISSION 2.0 0 Total Score Discharging to Facility/ Agency Name: Address: Phone: Fax: Dialysis Facility (if applicable) Name: Address: Dialysis Schedule: Phone: Fax: [employer] Park Entertainer/Leaf Conditioner signature: {Esignature:553360587} PHYSICIAN SECTION Prognosis: {Prognosis:7130220176} Condition at Discharge: { Patient Condition:728160922} Rehab Potential (if transferring to Rehab): {Prognosis:7139497409} Recommended Labs or Other Treatments After Discharge: Physician Certification: I certify the above information and transfer of Harman Jamil is necessary for the continuing treatment of the diagnosis listed and that he requires {Admit to Appropriate Level of Care:72727} for {GREATER/LESS:507404334} 30 days. Update Admission H&P: {CHP DME Changes in HandP:889907943} PHYSICIAN SIGNATURE: {Esignature:792488560} * Attachments The following attachments cannot be sent through Care Everywhere. * Back: Strain (Egyptian) [facility] History of Present illness Narrative* Josafat Loenard, DO - 06/28/2024 9:20 AM EDT Subjective [...] symptoms are better managed. [facility] Work Phone: 1([phone]) 486-408804-03-2025 Hospital Discharge instructions* Discharge Instructions* Lisa Polanco [...] be sent through Care Everywhere. * Sciatica (Egyptian) * Back Pain (Egyptian) documented in this [facility]Bon [facility] History of Present illness Narrative* Sha [...] [facility] For complete plan and/or surgical details, please refer to Dr. Foster's portion of this split dictation. -Dev Martel PA-C In a gpfm-fx-qaun encounter, I performed a history and physical [...] Foster MD Orthopedic surgery [facility] Work Phone: 1([phone]) 157-447203-07-2025 Hospital Discharge instructions* Discharge Instructions* Nayan Hale PA-C - 05/19/2024 3:44 AM EST Follow closely with your primary spinal surgeon for recheck. Return sooner for new or worsening symptoms. You can attempt to poultry picking machine tender a walker with the provided prescription at a local DME store * Attachments The following attachments cannot be sent through Care Everywhere. * Back Pain (Egyptian) * Fall Prevention (Egyptian) documented in this [facility]Bon [facility] History of Present illness Narrative* Dev [...] 2+ and symmetric bilaterally. Garner positive bilaterally. Marzipan Maker strength symmetric and strong. Cervical incision is [...] split dictation. -Dev Martel PA-C In a xxta-wd-bmzq encounter, I performed a history and physical [...] Foster MD Orthopedic surgery documented in this [facility] Work Phone: 1(761) 200-326712-14-2024 Plan of care note* Care Plan - [...] goals for the shift include Pain management [facility]12-14-2024 Miscellaneous Notes* Care Plan - Felipe Acuña [...] Foster M.D. Asst.: None Dev LeosThe physician practice assistant was present through the entire case. Given thenature of the disease process and the procedure to be performed a skilled salesperson surgical appliances was necessary during the case. The practice assistant was necessary in order to hold retractors and directly assistin the operation. A certified registered nurse practitioner was at the back table managing instruments [...] anterior two thirds of the disc. A [employer] pinretractor was then placed to provide distraction [...] contact me. * Care Plan - Haley Labyo RN - 02/24/2024 1:52 AM EST The [...] these barriers include none. documented in this [facility] Work Phone: 1(903) 264-340812-14-2024 Plan of care note* Care Plan - [...] goals for the shift include Pain management [facility] Work Phone: [phone]) 496-885112-14-2024 Hospital course Narrative* Wolfgang Childers APRN-MINA - [...] 2024 in wound clinic documented in this [facility] Work Phone: 1(354) 760-323312-14-2024 History of Present illness Narrative* FREDO Ling [...] / Treatment Patient Name: Harman Jamil Department: [facility] Room: [facility]/602-A Today's Date: 02/25/2024 Time Calculation Start Time: [...] Comments: BUE AROM WFL; strength >3/5; functional stagecraft professor 4/5. Perception: Inattention/Neglect: Appears intact Coordination: Movements are Fluid and Coordinated: Yes Hand Function: Gross Grasp: Functional Coordination: Functional Outcome Measures:[facility] Daily Activity Putting on and taking [...] decompression and fusion - direct admission from [facility] in [place] - Progressive neurovascular changes noted per primary [...] note, this documentation is completed using the [employer] Dictation system (voice recognition software). There may [...] LLE : Within Functional Limits Outcome Measures: [facility] Basic Mobility Turning from your back [...] Foster. Pt has cervical brace on. Per [employer] anticipate Wednesday DC on Oral Bactrim x 10 days, follow up with Dr. Nichols on Wednesday. Pt had bedside I & D for 3 left axillary abscesses which is currently packed, ordereddaily wound dressings. Pt refuses HHC, states can not have HHC at his nieces in [facility], and plans to go to his moms in [place] for only a couple days and come back to [place]. Pt declines any needs. [employer] notified and will cancel home care orders. [facility] has made pt appt with Dr. Nichols Wednesday morning at 9:30 so pt can call insurance [employer] today to set up transportation for Wednesday [...] required documents and is reaching out to inland [facility]. * Sowmya Hernandez PharmD [...] 7:41 AM * Lennie Del Castillo Jesica, [facility] - 02/25/2024 6:29 AM EST Vancomycin [...] on 02/26/2024 Exposure target: AUC24 (range)400-600 mg/L.hr NSS28-78: 381 mg/L.hr AUC24,ss: 409 mg/L.hr Probability of [...] palpation Skin: no rashes, no diaphoresis Neuro: V BELT CURER intact Affect appropriate and patient is interactive [...] and Zosyn, Cultures pending, anticipating PICC and halfway antibiotics. Pt states currently living in basement of niece's home in [facility] in, has had recent problems [...] Continue current dressing changes * Jewels Nolan, PERMASTONE APPLICATOR-AIR BOX TESTER - 02/23/2024 2:02 PM EST Harman Jamil [...] major adverse cardiovascular events including cardiac arrest, DE, arrhythmias, and/or even . Patient appears medically [...] to Left armpit. COMPARISON: None. ACCESSION NUMBER(S): [id number] ORDERING CLINICIAN: HALEY YATES TECHNIQUE: Contiguous axial [...] in 6 months to ensure stability. Camilo eHnry, et al. Guidelines for Management of Incidental [...] Phillip Mojica 02/22/2024 11:09 PM Dictation workstation: [id number] Physical Exam Constitutional: Well developed, awake/alert/oriented x3, [...] decompression and fusion - direct admission from [facility] in [place] - Progressive neurovascular changes noted per primary [...] note, this documentation is completed using the Rawbots Dictation system (voice recognition software). There may be spelling and/or grammatical errors that were not corrected prior to final submission. 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 N Transportation Needs In the [...] Zosyn, Cultures pending, anticipating P ICC and halfway antibiotics. Pt states currently living in basement of niece's home in [place], has had recent problems with legs and [...] on 02/23/2024 Exposure target: AUC24 (range)400-600 mg/L.hr BBF65-45: 448 mg/L.hr AUC24,ss: 487 mg/L.hr Probability of [...] toxicity. Korina Lopez PharmD [facility] Work Phone[facility] [phone] 501-610212-14-2024 Plan of care note* Care Plan - [...] level of nervousness and agitation this morning. [facility]12-13-2024 Plan of care note* Care Plan [...] goals for the shift include Pain management [facility] Work Phone: [phone] 223-662512-12-2024 Plan of care note* Care Plan - Haley Laboy RN - 02/24/2024 11:05 PM EST The patient's goals for the shift include rest and comfort The clinical goals for the shift include pain management Over the shift, the patient did make progress toward the following goals. Barriers to progression include none. Recommendations to address these barriers include none. [facility] Work Phone: [phone]) 315-969012-12-2024 Note* Op Note - Sha Foster MD [...] Foster M.D. Asst.: None Dev LeosThe physician practice assistant was present through the entire case. Given thenature of the disease process and the procedure to be performed a skilled salesperson surgical appliances was necessary during the case. The practice assistant was necessary in order to hold retractors and directly assistin the operation. A certified registered nurse practitioner was at the back table managing instruments [...] anterior two thirds of the disc. A [employer] pinretractor was then placed to provide distraction [...] please do not hesitate to contact me. [facility] Work Phone: [phone] 805-539712-12-2024 Plan of care note* Care Plan - Haley Laboy RN - 02/24/2024 1:52 AM EST The patient's goals for the shift include rest and comfort The clinical goals for the shift include pain management Over the shift, the patient did make progress toward the following goals. Barriers to progression include none. Recommendations to address these barriers include none. [facility] Work Phone: [phone] History and physical note* Sha Foster MD [...] this with one of my colleagues in [place] and we both agree that the neurologic [...] please do not hesitate to contact me. [facility] Work Phone: [phone] History and physical note* Sha Foster MD [...] this with one of my colleagues in [place] and we both agree that the neurologic [...] hesitate to contact me. documented in this [facility] Work Phone: [phone] 975-504912-11-2024 Plan of care note* Care Plan - [...] goals for the shift include Pain management [facility] Work Phone: [phone] Hospital Discharge instructions* Discharge Instructions* FREDO Hairston - 02/23/2024 8:41 AM EST ##### Please follow up with your PCP regarding these nodules############ Follow up in 1 week. May need to follow up with creative perfumer as well. Will send you information infollow [...] sent through Care Everywhere. * Hidradenitis suppurativa (Egyptian) documented in this [facility] Work Phone: [phone] Consult note* Jeff Nichols MD - 02/23/2024 [...] MD *These notes are being done using Rawbots voice recognition technology and may include unintended errors with respect to translation of words, typographical errors or grammar errors which may not havebeen identified prior to finalization of the chart note. [facility] Work Phone: [phone] Consult note* Jeff Nichols MD - 02/23/2024 [...] MD *These notes are being done using Rawbots voice recognition technology and may include unintended errors with respect to translation of words, typographical errors or grammar errors which may not havebeen identified prior to finalization of the chart note. * Param Cifuentes PharmD - 02/23/2024 12:30 AM [...] on 02/23/2024 Exposure target: AUC24 (range)400-600 mg/L.hr XCG92-49: 471 mg/L.hr AUC24,ss: 581 mg/L.hr Probability of [...] palpation Skin: no rashes, no diaphoresis Neuro: V BELT CURER intact Affect appropriate and patient is interactive [...] therace variable for the IDMS-Traceable creatinine methods. https://jasn.asnjournals.org/content/early//ASN.3746902014 Calcium 02/22/2024 9.2 8.6 - 10.3 mg/dL [...] and tingling to BLE, palpable pulses, equal stagecraft professor strengths of upper extremities. Last Recorded Vitals BP 147/89 (Patient Position: Sitting) Pulse 98 Temp 35.6 C (96.1 F) Resp 18 SpO2 93% Relevant Results CT w contrast ordered - results pending BC x2 Wound/tissue culture ordered ID consulted Plastic Surgery consulted Remaining lab work is unremarkable Assessment/Plan C5-6 and C6-7 anterior cervical decompression and fusion - direct admission from [facility] in [place] - Progressive neurovascular changes noted per primary [...] declined Haley Yates APRN-MINA [facility] Work Phone: [phone] Plan of care note* Care Plan - Haley Laboy RN - 02/23/2024 2:39 AM EST The patient's goals for the shift include rest and comfort The clinical goals for the shift include pain management Over the shift, the patient did make progress toward the following goals. Barriers to progression include none. Recommendations to address these barriers include none. [facility] Work Phone: [phone] Plan of care note* Care Plan - Haley Laboy RN - 02/23/2024 1:58 AM EST The patient's goals for the shift include rest and comfort The clinical goals for the shift include pain management Over the shift, the patient did make progress toward the following goals. Barriers to progression include none. Recommendations to address these barriers include none. [facility] Work Phone: [phone] Consult note* Param Cifuentes PharmD - 02/23/2024 [...] on 02/23/2024 Exposure target: AUC24 (range)400-600 mg/L.hr UMX56-79: 471 mg/L.hr AUC24,ss: 581 mg/L.hr Probability of [...] and signs/symptoms of toxicity. PARAM CIFUENTES PharmD [facility]12-10-2024 Consult note* Karli Pena, - 02/22/2024 [...] palpation Skin: no rashes, no diaphoresis Neuro: V BELT CURER intact Affect appropriate and patient is interactive [...] therace variable for the IDMS-Traceable creatinine methods. https://jasn.asnjournals.org/content//ASN.4059129459 Calcium 02/22/2024 9.2 8.6 - 10.3 mg/dL [...] visit with the patient > 60 min [facility] Work Phone: [phone] Consult note* Haley Yates APRN-MINA - 02/22/2024 [...] and tingling to BLE, palpable pulses, equal stagecraft professor strengths of upper extremities. Last Recorded Vitals BP 147/89 (Patient Position: Sitting) Pulse 98 Temp 35.6 C (96.1 F) Resp 18 SpO2 93% Relevant Results CT w contrast ordered - results pending BC x2 Wound/tissue culture ordered ID consulted Plastic Surgery consulted Remaining lab work is unremarkable Assessment/Plan C5-6 and C6-7 anterior cervical decompression and fusion - direct admission from [facility] in [place] - Progressive neurovascular changes noted per primary [...] offered replacement - declined Haley Yates APRN-MINA [facility] Work Phone: [phone] History of Present illness Narrative* Sha Foster [...] cervical decompression and fusion. [facility] Work Phone: [phone] Hospital Discharge instructions* Discharge Instructions* Nayan Hale PA-C - 02/08/2024 11:23 PM EST Please follow closely with your primary team. Return immediately for new or worsening symptoms. * Attachments The following attachments cannot be sent through Care Everywhere. * Back Pain (Egyptian) [facility] History of Present illness Narrative* Sha [...] as if he does. documented in this [facility] Work Phone: [phone] Hospital Discharge instructions* Discharge Instructions* Zuleyka Bryant, [...] sent through Care Everywhere. * Fecal Incontinence (Egyptian) * Low Back Pain: Exercises (Egyptian) documented in this encounterBon [facility] History of Present illness Narrative* Sha [...] the lumbar spine from August 27 at [facility] was reviewed today. Assessment: 43-year-old gentleman [...] buckle. He did have a CT at [facility] of his lumbar spine that showed that [...] split dictation. -Dev Martel PA-C In a vpai-gb-bnnk encounter, I performed a history and physical [...] Foster MD Orthopedic surgery documented [facility] Work Phone: [phone] Hospital Discharge instructions* Discharge Instructions* Aarti Stokes APRN - AIR BOX TESTER - 12/12/2023 7:08 PM EDT Continue follow with your orthopedic doctor on December for pain management recommended for chronic back pain. * Attachments The following attachments cannot be sent through Care Everywhere. * Back Pain (Egyptian) [facility] History of Present illness Narrative* Sha Foster [...] anything for this recently. He is taking pcwx-epy-vyneysl anti-inflammatories which are not helping. Plan: For complete plan and/or surgical details, please refer to Dr. Foster's portion of this split dictation. In a zmpr-xo-nriz encounter, I performed a history and physical [...] back after the MRI. documented in [facility]Bl[facility] Work Phone: [phone] Discharge summary Author Gerson Perez [facility] November 09, 2022 3:03pm Note Date/Time November 09, 2022 2: 54pm [facility] Medical Records Department [address] [place] [address] Emergency Department Summary 11/09/22 MR#: [id number] Acct: [id number] Name: HARMAN JAMIL Rep #:[id number] : [...] that those symptoms are not there now. [facility] Medical History ADHD Cervical radiculopathy Sciatica [...] your Primary Care Provider. Call [facility] ([phone]) or report to the closest Emergency Room. Call 911 if necessary. 11/09/22 1644 <Electronically signed by Gerson Perez MD> Cosigner Signature (if applicable): CC: Dr. Josafat Leonard DO ~ Signed [facility] Work Phone: Evaluation noteNo assessment information available [facility] Work Phone: Evaluation note* Diagnosis Lumbar pain- Primary Lumbago Lumbar radiculopathy Thoracic or lumbosacral neuritis or radiculitis, unspecified Lumbar pain Lumbago documented in this encounter [facility] Work Phone: [phone] note* Diagnosis Lumbar pain Lumbago documented in this encounter [facility] Work Phone: [phone] note* Diagnosis Lumbar pain- Primary Lumbago Lumbar radiculopathy Thoracic or lumbosacral neuritis or radiculitis, unspecified documented in this encounter [facility] Work Phone: [phone] note* Diagnosis Chronic bilateral low back pain with bilateral sciatica- Primary Incontinence of feces with fecal urgency documented in this encounter [facility] ubitusEvaluation note* Diagnosis Back pain with radiculopathy- Primary documented in this encounter [facility] Work Phone: [phone] note* Diagnosis Lumbosacral radiculitis- Primary Thoracic or lumbosacral neuritis or radiculitis, unspecified [facility] Command[facility]* Diagnosis Back pain with radiculopathy documented in this encounter [facility] Work Phone: [phone] note* Diagnosis Cervical radiculopathy Brachial neuritis or radiculitis nos documented in this encounter [facility] Work Phone: [phone] note* Diagnosis Spinal stenosis, cervical region- Primary Spinal stenosis Spinal stenosis, unspecified region other than cervical Spinal stenosis, cervical region Abscess of axilla, left Spinal stenosis Spinal stenosis, unspecified region other than cervical Spinal stenosis, cervical region documented in this encounter [facility] Work Phone: [phone] note* Diagnosis Cervical radiculopathy- Primary Brachial neuritis or radiculitis nos Cervical radiculopathy Brachial neuritis or radiculitis nos documented in this encounter [facility] Work Phone: Evaluation note* Diagnosis Cervical radiculopathy Brachial neuritis or radiculitis nos documented in this encounter [facility] Work Phone: [phone] note* Diagnosis Acute exacerbation of chronic low back pain- Primary documented in this encounter [facility] Bantu LLCaluation note* Diagnosis Accidental fall, initial encounter- Primary Neck sprain, initial encounter Lumbar radiculopathy, acute Thoracic or lumbosacral neuritis or radiculitis, unspecified Leg weakness, bilateral Other musculoskeletal symptoms referable to limbs documented in this encounter [facility]Trip[facility]akealuation [facility]* Diagnosis Cervical radiculopathy- Primary Brachial neuritis or radiculitis nos documented in this encounter [facility] Work Phone: [phone] note* Diagnosis Cervical radiculopathy Brachial neuritis or radiculitis nos documented in this encounter [facility] Work Phone: Evaluation note* Diagnosis Sciatica of left side- Primary Sciatica documented in this encounter [facility]al[facility]* Diagnosis Preventative health care- Primary Routine general medical examination at a health care facility Other chronic pain Vitamin D deficiency Attention deficit hyperactivity disorder (ADHD), unspecified ADHD type Hyperlipidemia, unspecified hyperlipidemia type Bipolar affective disorder, remission status unspecified (Multi) Hyperverbal speech documented in this encounter [facility] Work Phone: [phone] note* Diagnosis Acute exacerbation of chronic low back pain- Primary documented in this encounter [facility]* Diagnosis Cervical myelopathy- Primary Cervical spondylosis with myelopathy Back pain with radiculopathy documented in this encounter [facility] Work Phone: [phone] note* Diagnosis Back pain with radiculopathy documented in this encounter [facility] Work Phone: [phone] note* Diagnosis Herniated nucleus pulposus, L4-5- Primary [...] ankle and foot documented in this encounter [facility] Work Phone: Evaluation note* Diagnosis Herniated nucleus pulposus, L4-5 Displacement of lumbar intervertebral disc without myelopathy Pain of left lower extremity Weakness of left foot Neurogenic bowel Left foot drop Other acquired deformity of ankle and foot documented in this encounter [facility] Work Phone: [facility] Work Phone: [facility] instructionsW[facility] Work Phone: Hospital Discharge instructions Additional Instructions Follow-up with your primary care provider. Return if feeling worse.[facility] Work Phone: Hospital Discharge instructions Additional Instructions Please be sure to keep your follow-up appointment with your surgeon on 21 May 2023.[facility] Work Phone: Reason for referral (narrative)No reason for referral information availableWCity Hospital Work Phone: Reason for visit Narrative* Imaging (Emergency) - Authorized Specialty Diagnoses / Procedures Referred By Julio Cesar hoffman Referred To Contact Radiology Diagnoses Back pain with radiculopathy Procedures MR thoracic spine wo IV contrast Sha Foster MD [address] [address] Phone: tel: fax: Referral ID Status Reason Start Date Expiration Date Visits Requested Visits Authorized [id number] Authorized Perform Procedure 4 02/07/2025 1 1 [facility] Work Phone: Reason for visit Narrative* Imaging (Emergency) - Authorized Specialty Diagnoses / Procedures Referred By Julio Cesar hoffman Referred To Contact Radiology Diagnoses Back pain with radiculopathy Procedures MR lumbar spine w and wo IV contrast MR lumbar spine w IV contrast Sha Foster MD [address] [facility], [address] [place] [address] Phone: tel: fax: Referral ID Status Reason Start Date Expiration Date Visits Requested Visits Authorized [id number] Authorized Perform Procedure 4 02/07/2025 1 1 [facility] Work Phone: Reezsh for visit Narrative* Imaging (Emergency) - Authorized Specialty Diagnoses / Procedures Referred By Contac t Referred To Contact Radiology Diagnoses Back pain with radiculopathy Procedures MR cervical spine wo IV contrast Sha Foster MD [address] [facility], [address] [place] [address] Phone: tel: fax: Referral ID Status Reason Start Date Expiration Date Visits Requested Visits Authorized [id number] Authorized Perform Procedure 4 02/07/2025 1 1 [facility] Work Phone: reason for visit Narrative* Auth/Cert Specialty Diagnoses / Procedures Referred By Contac t Referred To Contact Diagnoses SPINAL STENOSIS Procedures N/A Sha Foster MD [address] [facility], [address] [place] [address] Phone: tel: fax: [facility] [address] [facility] [place] [address] Referral ID Status Reason Start Date Expiration Date Visits Re quested Visits Authorized [id number] 1 1 [facility] Work Phone: Redfam for visit Narrative* Imaging (Routine) - Authorized Specialty Diagnoses / Procedures Referred By Contac t Referred To Contact Radiology Diagnoses Cervical radiculopathy Procedures XR cervical spine 2-3 views Sha Foster MD [address] [facility], [address] [place] [address] Phone: tel: fax: Referral ID Status Reason Start Date Expiration Date Visits Requested Visits Authorized [id number] Authorized Perform Procedure 4 03/07/2025 1 1 [facility] Work Phone: Reason for visit Narrative* Imaging (Routine) - Authorized Specialty Diagnoses / Procedures Referred By Contac t Referred To Contact Radiology Diagnoses Cervical radiculopathy Procedures XR cervical spine 2-3 views Sha Foster MD [address] [facility], [address] [place] [address] Phone: tel: fax: Referral ID Status Reason Start Date Expiration Date Visits Requested Visits Authorized [id number] Authorized Perform Procedure 06/06/2024 06/06/2025 1 1 [facility] Work Phone: Reason for visit Narrative* Imaging (Routine) - Authorized Specialty Diagnoses / Procedures Referred By Contac t Referred To Contact Radiology Diagnoses Herniated nucleus pulposus, L4-5 Pain of left lower extremity Weakness of left foot Neurogenic bowel Left foot drop Procedures MR lumbar spine wo IV contrast MR lumbar spine wo IV contrast Nighat Griffin MD [address] [facility] [address] [place] [address] Phone: tel: fax: Referral ID Status Reason Start Date Expiration Date Visits Requested Visits Authorized [id number] Authorized Perform Procedure 10/02/2024 10/02/2025 1 1 [facility] Work Phone: Summary Purpose Family History No [...] No June 15, 2021 8:39pm Power of Lemon Grower No June 15 8:39pm Advance Directive Response Recorded Date/ Time Living Will No August 19, 2021 1 :08pm Power of Lemon Grower No August 19, 2021 1:08pm Advance Directive Response Recorded Date/ Time Living Will No August 20, 2021 4 :43pm Power of Lemon Grower No August 20, 2021 4:43pm Advance Directive Response Recorded Date/ Time Living Will No June 16, 2022 10:19pm Power of Lemon Grower No June 16 10:19pm Advance Directive Response Recorded Date/ Time Living Will No November 09 3:32pm Power of Lemon Grower No November 09, 2 023 3:32pm Advance Directive Response Recorded Date/ Time Living Will No March 09 023 12:29pm Power of Lemon Grower No March 09, 2023 12:29pm Advance Directive Response Recorded Date/ Time Living Will No April 10 4:40pm Power of Lemon Grower No April 10, 2023 4:40pm Advance Directive Response Recorded Date/ Time Living Will No May 18, 2023 3:41pm Power of Lemon Grower No May 17 3:41pm Date Activated Date [...] Do you have a Healthcare Power of Lemon Grower? No October 23, 2024 3:38pm Chief Complaint [...] IV contrast Sha Foster MD [address] [facility], [address] [place], [place] [id number] Referral ID Status Reason Start Date Expiration Date Visits Requested Visits Authorized [id number] Pending Review Perform Procedure 05/04/2023 05/03/2024 1 1 Specialty Diagnoses / Procedures Referred By Contac t Referred To Contact Physical Therapy Diagnoses Lumbar pain Lumbar radiculopathy Sha Foster MD [address] [facility], [address] [place] [address] Referral ID Status Reason Start Date Expiration Date Visits Requested Visits Authorized [id number] Pending Review Specialty Services Required 05/04/2023 05/03/2024 1 1 Specialty Diagnoses / Procedures Referred By Contac t Referred To Contact Radiology Diagnoses Lumbar pain Procedures XR lumbar spine complete 4+ views Sha Foster MD [address] [facility], [address] [place] [address] Referral ID Status Reason Start Date Expiration Date Visits Requested Visits Authorized [id number] Authorized Perform Procedure 05/04/2023 05/03/2024 1 1 Referral ID Status Reason Start Date Expiration Date Visits Requested Visits Authorized [id number] Pending Review Perform Procedure 12/14/2023 12/13/2024 1 1 Referral ID Status Reason Start Date Expiration Date Visits Requested Visits Authorized [id number] Pending Review Specialty Services Required 12/14/2023 12/13/2024 1 1 Specialty Diagnoses / Procedures Referred By Contac t Referred To Contact Anesthesiology Diagnoses Lumbar pain Lumbar radiculopathy Sha Foster MD [address] [facility], [address] [place] [id number] Arielle Reeves MD [address] [address] Referral ID Status Reason Start Date Expiration Date Visits Requested Visits Authorized [id number] Authorized Specialty Services Required 12/14/2023 12/13/2024 1 [...] DATE CREATED AUTHOR AUTHOR'S ORGANIZ ATION 03/02/2018 [facility] DATE CREATED AUTHOR AUTHOR'S ORGANIZ ATION 12/06/2022 [facility] DATE CREATED AUTHOR AUTHOR'S ORGANIZ ATION 02/26/2024 [facility] DATE CREATED AUTHOR AUTHOR'S ORGANIZ ATION 02/29/2024 [facility] DATE CREATED AUTHOR AUTHOR'S ORGANIZ ATION 03/31/2024 [facility] DATE CREATED AUTHOR AUTHOR'S ORGANIZ ATION 06/29/2024 [facility] DATE CREATED AUTHOR AUTHOR'S ORGANIZ ATION 07/19/2024 [facility] DATE CREATED AUTHOR AUTHOR'S ORGANIZ ATION 07/24/2024 [facility] DATE CREATED AUTHOR AUTHOR'S ORGANIZ ATION 10/04/2024 [facility] DATE CREATED AUTHOR AUTHOR'S ORGANIZ ATION 10/16/2024 [facility] DATE CREATED AUTHOR AUTHOR'S ORGANIZ ATION 10/22/2024 [facility] Goals (unrecognized section and content) Goals may [...] Dr. Raghu Sadler DO Emergency Provider Active Trust Officer Relationship Specialty Start Date End Date Josafat Leonard DO [address] [facility], [address] [address] PCP - [employer] [facility] PCP 08/13/21 Josafat Leonard DO [address] [facility], [address] [address] PCP - [facility] Medicaid PCP 06/13/22 Josafat Leonard DO [address] [facility], [address] [address] PCP - General Family Medicine 12/27/22 Trust Officer Relationship Specialty Start Date End Date Josafat Leonard DO [address] [facility], [address] [address] PCP - [employer] [facility] PCP 08/13/21 Josafat Leonard DO [address] [facility], [address] [address] PCP - [facility] Medicaid PCP 06/13/22 Josafat Leonard DO [address] [facility], [address] [address] PCP - General Family Medicine 12/27/22 Team Status: Inactive Member Role Status Dates Dr. Josafat Leonard , DO Primary Care Provider Active Dr. Raghu Sadler , DO Attending Provider, Isa reilly Active Team Status: Inactive Member Role Status Dates Dr. Josafat Leonard , DO Primary Care Provider Active Dr. Mynor Colon , DO Emergency Provider Active Trust Officer Relationship Specialty Start Date End Date Josafat Leonard DO [address] [facility], [address] [address] PCP - [facility] Medicaid PCP 06/13/22 Josafat Leonard DO [address] [facility], [address] [address] PCP - General Family Medicine 12/27/22 Dev Martel PA-C [address] [place] [address] PCP - [facility] PCP 06/14/23 Trust Officer Relationship Specialty Start Date End Date Josafat Leonard DO [facility] [address] [id number] PCP - General 09/18/15 Trust Officer Relationship Specialty Start Date End Date Josafat Leonard DO [address] [facility], [address] [address] PCP - General Family Medicine 12/27/22 Dev Martel PA-C [address] [place] [address] PCP - [employer] [facility] PCP 06/14/23 Dev Martel PA-C [address] [place] [address] PCP - [employer] Medicaid PCP 12/14/23 Trust Officer Relationship Specialty Start Date End Date Josafat Leonard DO [address] [place] [address] PCP - General 09/18/15 Trust Officer Relationship Specialty Start Date End Date Josafat Leonard DO [address] [facility], [address] [place] [address] PCP - General Family Medicine 12/27/22 Dev Martel PA-C [address] [place] [address] PCP - [facility] PCP 06/14/23 Dev Martel PA-C [address] [place] [address] PCP - [employer] Medicaid PCP 12/14/23 Trust Officer Relationship Specialty Start Date End Date Josafat Leonard DO [address] [facility], [address] [place] [address] PCP - General Family Medicine 12/27/22 Dev Martel PA-C [address] [place] [address] PCP - [facility] PCP 06/14/23 Dev Martel PA-C [address] [place] [address] PCP - [employer] Medicaid PCP 12/14/23 Trust Officer Relationship Specialty Start Date End Date Josafat Leonard DO [address] [facility], [address] [address] PCP - General Family Medicine 12/27/22 Dev Martel PA-C [address] [place] [address] PCP - [facility] PCP 06/14/23 Dev Martel PA-C [address] [place] [address] PCP - [employer] Medicaid PCP 12/14/23 Trust Officer Relationship Specialty Start Date End Date MattidiJosafat levin DO [address] [facility], [address] [address] PCP - General Family Medicine 12/27/22 Dev Martel PA-C [address] [place] [address] PCP - [employer] [facility] PCP 06/14/23 Dev Martel PA-C [address] [place] [address] PCP - [employer] Medicaid PCP 12/14/23 Trust Officer Relationship Specialty Start Date End Date Josafat Leonard DO [address] [facility], [address] [address] PCP - General Family Medicine 12/27/22 Dev Martel PA-C [address] [place] [address] PCP - [employer] [facility] PCP 06/14/23 Dev Martel PA-C [address] [place] [address] PCP - [employer] Medicaid PCP 12/14/23 Trust Officer Relationship Specialty Start Date End Date Josafat Leonard DO [address] [facility], [address] [address] PCP - General Family Medicine 12/27/22 Dev Martel PA-C [address] [place] [address] PCP - [employer] [facility] PCP 06/14/23 Dev Martel PA-C [address] [place] [address] PCP - [employer] Medicaid PCP 12/14/23 Trust Officer Relationship Specialty Start Date End Date Josafat Leonard DO [address] [facility], [address] [address] PCP - General Family Medicine 12/27/22 Dev Martel PA-C [address] [place] [address] PCP - [facility] [facility] PCP 06/14/23 Dev Martel PA-C [address] [place] [address] PCP - [employer] Medicaid PCP 12/14/23 Trust Officer Relationship Specialty Start Date End Date Josafat Leonard DO [address] [place] [address] PCP - General 09/18/15 Trust Officer Relationship Specialty Start Date End Date Josafat Leonard DO PCP - General 09/18/15 Trust Officer Relationship Specialty Start Date End Date Josafat Leonard DO PCP - General 09/18/15 Trust Officer Relationship Specialty Start Date End Date Josafat Leonard DO [address] [facility], [facility] [address] [place] [address] PCP - General Family Medicine 12/27/22 Dev Martel PA-C [address] [place] [address] PCP - [employer] [facility] PCP 06/14/23 Dev Martel PA-C [address] [place] [address] PCP - [employer] Medicaid PCP 12/14/23 Trust Officer Relationship Specialty Start Date End Date Josafat Leonard DO PCP - General 09/18/15 Trust Officer Relationship Specialty Start Date End Date Josafat Leonard DO [address] [facility], [address] [place] [address] PCP - General Family Medicine 12/27/22 Dev Martel PA-C [address] [place] [address] PCP - [employer] [facility] PCP 06/14/23 Dev Martel PA-C [address] [place] [address] PCP - [employer] Medicaid PCP 12/14/23 Trust Officer Relationship Specialty Start Date End Date MattidiJosafat levin DO [address] [facility], [address] [address] PCP - General Family Medicine 12/27/22 Dev Martel PA-C [address] [place] [address] PCP - [employer] [facility] PCP 06/14/23 Dev Martel PA-C [address] [place] [address] PCP - [employer] Medicaid PCP 12/14/23 Trust Officer Relationship Specialty Start Date End Date Josafat Leonard DO [address] [facility], [facility] [address] [place] [address] PCP - General Family Medicine 12/27/22 Dev Martel PA-C [address] [place] [address] PCP - [employer] [facility] PCP 06/14/23 Dev Martel PA-C [address] [place] [address] PCP - [facility] Medicaid PCP 12/14/23 Team Status: Active Member [...] spine complete 4+ views Sha Foster MD [address] [facility], [address] [place], [place] [id number] Referral ID Status Reason Start Date Expiration Date Visits Requested Visits Authorized [id number] Authorized Perform Procedure 05/04/2023 05/03/2024 1 1 Reason Comments Follow-up MRI was denied due t o lack of therapy, did not do therapyHas [facility] and [...] Ruben kessler Extremity Weakness NPV, rmd- Dr. Ruebn kessler Numbness NPV, rmd- Dr. Ruben kesslerFrom torso downCan't feel warm or cold on torso as well Specialty Diagnoses / Procedures Referred By Julio Cesar hoffman Referred To Contact Neurology Diagnoses Back pain with radiculopathy Sha Foster MD [address] [facility], [address] [place] [address] Phone: tel: fax: Referral ID Status Reason Start Date Expiration Date Visits Requested Visits Authorized [id number] Authorized Specialty Services Required 02/07/2025 1 1 Reason Comments Back Pain Specialty Diagnoses / Procedures Referred By Julio Cesar hoffman Referred To Contact Pain Medicine Diagnoses Back pain with radiculopathy Dev Martel PA-C [address] [place] [address] Phone: tel: [place]: [place] [address] [facility], [address] [address] Phone: tel: fax: Referral ID Status Reason Start Date Expiration Date Visits Requested Visits Authorized [id number] Authorized Specialty Services Required 06/27/2024 06/27/2025 1 1 Reason Comments New Patient Visit Evaluation of [facility]. Ordered Prescriptions (unrec ognized section and content) [...] at 2038 2038 (Given - Provid er: Flvaio Moser RN) oxyCODONE-acetaminophen (PERCOCET) 5-325 MG per tablet 1 tablet (COMPLETED) 1 tablet, Oral, ONCE, 1 dose, On 01/29/24 at 2128, Maximum dose of acetaminophen is 4000 mg from all sources in 24 hours. 2129 (Given - Provid er: Laurie lAfonso RN) predniSONE (DELTASONE) tablet 60 mg (COMPLETED) [...] Prophylaxis 1259 (Given - Provider: Pranay Lopez, LASHANDA-VULNERABILITY ASSESSMENT ANALYST)1613 (Anesthesia Volume Adjustment - Provider: Kris Madrid [...] hours PRN, anxiety, Starting on Wed02/25/24 at 2606 2679 (Given - Provider: Felipe Acuña RN) lubricating [...] Apply patch to left lower back. The manufacturing planner's recommendations for the number of patches that can be applied within a 24-hour period varies from 1 to 4 times daily and the duration of application varies from 8 to 24 hours; refer to the manufacturing planner's labeling for product-specific recommendations. 2157 (Patch Applied [...] BE BASED ON THE PRIMARY CLINICAL RECORDS. [facility] [employer] [facility]. provides no warranty or guarantee of the accuracy or completeness of information in this document.
== END 2024-10-23 16:05 | disposition left against medical advice (07) ==
PROVIDERS: Emergency Provider Emergency Medicine; PCP Family Medicine; Visit Provider Emergency Medicine
DX: T40.2X4A Poisoning by other opioids, undetermined, initial encounter (principal); F17.210 Nicotine dependence, cigarettes, uncomplicated; F12.90 Cannabis use, unspecified, uncomplicated; Z53.29 Procedure and treatment not carried out because of patient's decision for other reasons
CPT/HCPCS: J2312; 82962; 93005; 96374; 99283; A4216

== ENCOUNTER 2024-11-10 23:53 | Emergency (ER) | payer MEDICAID, SELFPAY ==
[2024-11-10 23:53] VITALS: BP 135/92; PULSE 72; RESP 18; TEMP 36.7; O2SAT 100; BMI 24.3
--- NOTE | 2024-11-11 01:56 | EDS_ITS ---
HPI History of Present Illness Chief Complaint: Back Narrative Narrative: Chief complaint and HPI: Acute on chronic lumbar back pain. 44-year-old male with past medical history of cervical radiculopathy, chronic lumbar back pain with known disc herniation, sciatica presents for evaluation on acute on chronic lumbar back pain. Patient states he follows with orthopedic physician. He is currently in physical therapy. Patient states that he has baseline numbness/tingling and weakness in his left lower extremity from his chronic back pain. States is not any worse. States this evening he was helping his mother move some heavy boxes when he feels like he aggravated his chronic back pain. States that the back pain is mostly located on the left side and radiates into his buttocks. Denies any new numbness or weakness. Has neurogenic bladder but nothing new with bowel and bladder issues. Denies any fever or chills. Review of systems: See HPI Medications: As listed on the chart Allergies: As listed on the chart PFSH: Per chart Vital signs: As listed on the chart. Reviewed. Physical exam: Gen: A&O x3, NAD Head: Normocephalic, atraumatic Eyes: No sclera icterus, conjunctiva clear, PERRL ENT: Moist mucous membranes Neck: Trachea midline, No JVD, full range of motion CV: RRR, no murmurs Resp: Lungs CTA BL, no w/r/c GI: Abd soft, non-distended, non-tender, no r/r/g Musc: Full ROM, no deformity, no midline spinal tenderness, no bony step-offs, no signs of trauma or infection, patient has tenderness to palpation of the left paraspinal musculature of the lumbar spine-muscles are tense, strength equal in all extremities except mildly decreased in the left lower extremity-patient states this is his baseline, wearing left leg brace due to chronic left foot drop, DP/PT pulses +2 bilaterally, compartments soft Skin: Warm, dry Neuro: Alert, oriented, grossly intact, sensation intact Psych: Cooperative, appropriate mood and affect [facility] Medical History ADHD Sciatica Cervical radiculopathy Home Medications ?Medication ?Instructions ?Recorded ?Last Taken ?Type gabapentin 300 mg capsule 600 mg PO Q8H 01/04/24 Unkno wn History baclofen 10 mg tablet 20 mg PO Q8H 10/23/24 Unknow n History cholecalciferol (vitamin D3) 125 125 mcg PO DAILY 10/13 04/08 Unknown History mcg (5,000 unit) capsule chlorzoxazone 500 mg tablet 500 mg PO 4X/DAY PRN PRN m uscle 11/11/24 Unknown History spasm Allergy/AdvReac Type Severity Reaction Status Date / Time No Known Allergies Allergy Verified 11/10/24 23:57 Surgical History Hx of tonsillectomy Previous back surgery Social History household members: none Smoking Status: Current every day smoker tobacco type: cigarettes alcohol intake: current alcohol intake frequency: other substance use type: marijuana EXAM Physical Exam Const Vital Signs: 11/10/24 23:53 Temperature 98.1 F Temperature Source Oral Pulse Rate 72 Respiratory Rate 18 Blood Pressure 135/92 H Blood Pressure Mean 106 Pulse Ox 100 Oxygen Delivery Method Room Air MDM MDM MDM Narrative Medical decision making narrative: 44-year-old male with past medical history of cervical radiculopathy, chronic lumbar back pain with known disc herniation, sciatica presents for evaluation on acute on chronic lumbar back pain. Patient states he follows with orthopedic physician. He is currently in physical therapy. Patient states that he has baseline numbness/tingling and weakness in his left lower extremity from his chronic back pain. States is not any worse. States this evening he was helping his mother move some heavy boxes when he feels like he aggravated his chronic back pain. States that the back pain is mostly located on the left side and radiates into his buttocks. Denies any new numbness or weakness. Has neurogenic bladder but nothing new with bowel and bladder issues. There has been no trauma or anything to suggest infectious etiology. There is no new neurological findings to suggest any acute cauda equina syndrome or acute radiculopathy. At this point in time I do not feel any emergent imaging such as x-rays or MRI are warranted. Patient in agreement. Suspect this is more acute on chronic back pain versus myofascial spasm. Patient's pain will be treated with IM Toradol and p.o. Valium. He did not drive today. Patient stable to discharge home. Follow-up with orthopedic physician. Return precautions explained. Continue home medications. He confirmed understanding of the plan. Impression: 1. Acute on chronic back pain 2. History of sciatica Discharge Plan Triage Chief Complaint: Back ED Provider: Eduardo Mcdonald Dx/Rx/DC Orders Prescriptions: No Action baclofen 10 mg tablet 20 mg PO Q8H cholecalciferol (vitamin D3) 125 mcg (5,000 unit) capsule 125 mcg PO DAILY gabapentin 300 mg capsule 600 mg PO Q8H chlorzoxazone 500 mg tablet 500 mg PO 4X/DAY PRN PRN (Reason: muscle spasm) Primary Care Provider: Josafat Davis Referrals: Josafat Davis DO [Primary Care Provider] - Print Language: [place] Island[place]
--- OUTSIDE RECORDS SUMMARY | 2024-11-11 02:00 | XMS RPT_ITS | CCD ---
Author Organization [facility] [employer] Care Team Providers Care Electrician'S Assistant Name Role Phone TOM WESLEY Unavailable Unavailable DEGIDIO, JOSAFAT R Unavailable Unavailable SHA FOSTER Unavailable Unavailable DEGIDIO, JOSAFAT R Unavailable Unavailable TUAN ALBARADO Unavailable Unavailable DEGIDIO, JOSAFAT R Unavailable Unavailable SHA FOSTER Unavailable Unavailable DEGIDIO, JOSAFAT R Unavailable Unavailable SHA FOSTER Unavailable Unavailable SHA FOSTER Unavailable Unavailable DEGIDIO, JOSAFAT R Unavailable Unavailable SHA FOSTER Unavailable Unavailable DEGIDIO, JOSAFAT R Unavailable Unavailable Cristian, Dr. Sha Rice Attending Unavai lable Cristian, Dr. Sha Rice Attending Michel lable Degidio DO, Josafat R Unavailable [phone] Degidio DO, Josafat R Unavailable [phone] Degidio DO, Josafat R Primary Care Provider [phone] Asif Martel PA-Cson E Unavailable [phone] Degidio DO, Josafat R Primary Care Provider Asif Martel PA-Cson E Unavailable Degidio DO, Josafat R Primary Care Provider [phone] Degidio DO, Josafat R Primary Care Provider [phone] Asif Martel PA-Cson E Unavailable Asif Martel PA-Cson E Unavailable SHA FOSTER Attending Unavailable DEGIDIO, JOSAFAT R Primary Care Unavailable SHA FOSTER Attending Unavailable DEGIDIO, JOSAFAT R Primary Care Unavailable SHA FOSTER Attending Unavailable DEGIDIO, JOSAFAT R Primary Care Unavailable SHA FOSTER Admitting Unavailable SHA FOSTER Attending Unavailable SHA FOSTER Referring Unavailable DEGIDIO, JOSAFAT R Primary Care Unavailable JEFF NICHOLS Consulting Unavailable SHA FOSTER Admitting Unavailable SHA FOSTER Attending Unavailable DEGIDIO, JOSAFAT [...] Primary Care Unavailable NIGHAT GRIFFIN Referring Unavailable DEGIDIO, JOSAFAT R Primary Care Unavailable SHA FOSTER Referring Unavailable DEGIDIO, JOSAFAT R Primary Care Unavailable ZURI MELO Attending Unavailable NIGHAT GRIFFIN Referring Unavailable DEGIDIO, JOSAFAT R Primary Care Unavailable Degidio Dr. Josafat GOULD Primary Care Provider [phone] Dr. Caleb Smith DO Emergency Provider Degidio, Josafat Primary Care Unavailable Raghu Sadler Attending Unavailable Degidio, Josafat Primary Care Unavailable Kehinde Cota Attending Unavailable Degidio, Josafat Primary Care Unavailable Caleb Smith Attending Unavailable Demetrius Andrew Attending Unavailable Degidio, Josafat Primary Care Unavailable NIGHAT GRIFFIN Attending Unavailable DEGIDIO, JOSAFAT R Primary Care Unavailable NIGHAT GRIFFIN Attending Unavailable DEGIDIO, JOSAFAT R Primary Care Unavailable DEGIDIO, JOSAFAT R Attending Unavailable MATTIDIO, JOSAFAT R Primary Care Unavailable RADHA DIXON Attending Unavailable SHA FOSTER Referring Unavailable FELIPAO, JOSAFAT R Primary Care Unavailable SHA FOSTER Admitting Unavailable SHA FOSTER Attending Unavailable SHA FOSTER Referring Unavailable DEGIDIO, JOSAFAT R Primary Care Unavailable Allergies Allergy Classification Reported Allergen(s) Allergy Type Date of Onset Reaction(s) Facility (1 source) ALLERGIES NOT ON FILE; Translations: [ALLERGIES NOT ON FILE] Propensity to adverse reactions (disorder) [facility] Repository Medications Current Medications Medication Drug Class(es) [...] at 2002 baclofen 10 mg oral tablet (8 sources) gamma-Aminobutyric Acid-ergic Agonist Start: 10-23-2024 Baclofen 10 mg tablet Active mg PO October 23, 2024 12:00am Start: 10-02-2024 End: 12-31-2024 take 1.5 tablets by mouth three times daily in the evening baclofen (Lioresal) 10 mg tablet Indications: Cervical myelopathy Take 1.5 tablets (15 mg) by mouth 3 times a day. 135 tablet 2 10/30/2024 8:05 PM EDT 10/02/2024 12/31/2024 Active Start: 08-04-2024 End: 10-02-2024 [...] 11/01/2017 Active chlorzoxazone 500 mg oral tablet (3 sources) Muscle Relaxant Start: 10-26-2024 End: 02-23-2025 take 1 tablet by mouth four times daily as needed for muscle spasms chlorzoxazone (Parafon Forte) 500 mg tablet Indications: Back pain with radiculopathy , Cervical myelopathy , Spinal stenosis of cervical region , Spinal stenosis, cervical region Take 1 tablet (500 mg) by mouth 4 times a day as needed for muscle spasms. 120 tablet 3 11/02/2024 6:31 PM EDT 10/26/2024 02/23/2025 Active Start: 02-22-2024 End: 02-26-2024 take 1 tablet by mouth four times daily as needed for muscle spasms chlorzoxazone (Parafon Forte) 500 mg tablet Indications: Cervical radiculopathy Take 1 tablet (500 mg) by mouth 4 times a day as needed for muscle spasms for up to 10 days. 30 tablet 02/22/2024 02/26/2024 Discontinued (Stop Taking at Discharge) cholecalciferol 0.125 mg oral capsule (18 sources) Vitamin D Start: 10-23-2024 take 1 [...] DAY as needed for Muscle Spasm 20 0 March 09, 2023 1:00am April 10, 2023 5:41pm gabapentin 600 mg oral tablet (8 sources) Anti-epileptic Agent Start: 10-02-2024 End: 12-31-2024 take 1 tablet by mouth three times daily in the evening gabapentin (Neurontin) 600 mg tablet Indications: Herniated nucleus pulposus, L4-5 , Paresthesia of upper extremity , Spinal stenosis, cervical region , Back pain with radiculopathy , Cervical myelopathy Take 1 tablet (600 mg) by mouth 3 times a day. 90 tablet 2 10/30/2024 8:05 PM EDT 10/02/2024 12/31/2024 Active Start: 10-02-2024 End: 10-02-2024 [...] (Reorder) Start: 01-04-2024 take 1 capsule by [facility] twice daily Gabapentin 300 mg capsule Active [...] tablet (20 sources) Nonsteroidal Anti-inflammatory Drug Start: 07-24-2024 End: 10-02-2024 take 1 tablet [...] mg, IntraMU SCular, ONCE, 1 dose, On Tu02/08/24 at 2224, Do not administer for more than 5 days. Start: 01-29-2024 30 mg, IntraVE Nous, ONCE, 1 dose, On 01/29/24 at 2037, Do not administer for more than 5 days. Start: 12-12-2023 30 mg, IntraMU SCular, ONCE, 1 dose, On 12/12/23 at 1847, Do not administer for more than 5 days. Start: 12-07-2023 take 1 tablet by linda every six hours as needed for pain [...] Apply patch to left lower back. The molding line operator's recommendations for the number of patches that can be applied within a 24-hour period varies from 1 to 4 times daily and the duration of application varies from 8 to 24 hours; refer to the molding line operator's labeling for product-specific recommendations. Start: 12-12-2023 End: [...] respiratory rate is greater than 12 breaths/minute. [place] (Nk) (1 source) Start: 08-20-2021 [place] (Nk) Active August 20, 2021 12:00am oxyCODONE [...] 500 mg oral tablet (1 source) Start: 06-15-2021 take 500 mg by mouth four times daily Penicillin V Potassium Active 500 MG PO 4 TIMES DAILY June 15, 2021 9:05pm polyethylene glycol 3350 04364 mg powder for oral solution (1 source) Osmotic Laxative Start: 02-24-2024 17 g, oral, D aily, First dose on Wed02/24/24 at 1815, Bowel Regimen - for prevention of constipation. polyvinyl alcohol 0.014 ml/ml / povidone 6 mg/ml ophthalmic solution (1 source) Start: 02-24-2024 1 drop, Left E ye, As needed, dry eyes, Starting on Wed02/24/24 at 1908 predniSONE 50 mg oral tablet [...] tablet Discontinued 20 mg PO DAILY 5 0 January 20, 2024 1:00am October 23, 2024 3:49pm Start: 01-04-2024 End: 10-23-2024 take 2 tablets by mouth once daily Prednisone 20 mg tablet Discontinued 40 mg PO DAILY 10 5 0 January 04, 2024 12:00am October [...] NEEDED as needed for Pain 12 3 May 18, 2023 January 04, 2024 5:57am Acute low back pain Low back pain Start: 11-09-2022 End: 04-10-2023 take 1 tablet by mouth every six hours as needed Hydrocodone-Acetaminophen Discontinued 1 TABLET PO EVERY 6 HOURS NEEDED 10 March 09, 2023 April 10, 2023 4:41pm Start: 05-10-2018 End: 05-13-2018 Hydrocodone-Acetaminophen 1 TABLET tablet Discontinued 1 {tbl} PO EVERY 6 HOURS NEEDED as needed for Pain 10 3 May 10, 2018 1:00am May 12, 2018 1:00am May 13, 2018 1:08am Sciatica Sciatica, unspecified side Start: 05-10-2018 End: 05-13-2018 take 1 tablet by mouth every six hours as needed Hydrocodone-Acetaminophen Discontinued 1 TABLET PO EVERY 6 HOURS NEEDED 10 May 10, 2018 12:00am May 13, 2018 [...] 1 tablet, Oral, ONCE, 1 dose, On 02/07/24 at 2322, Maximum dose of acetaminophen is [...] pain severe (7-10), first line, Starting on 02/22/24 at 1810, If ordered PRN for pain, [...] 1 tablet by linda th twice daily Diazepam (Valium) 2 mg tablet [...] mL, intravenous, Once in imaging, Starting on Angelita 02/17/24 at 1839, For 1 dose, Administer undiluted [...] Every 10 min PRN, shivering, Starting on Wed02/24/24 at 1612, Recovery (only) methocarbamol 500 mg [...] 60 mg, IntraMUSCular, ONCE, 1 dose, On Wed01/29/24 at 2038 Start: 12-12-2023 End: 12-12-2023 inject 1 dose by intramuscular injection once 60 mg, IntraMUSCular, ONCE, 1 dose, On Wed12/12/23 at 1847 piperacillin 3000 mg / tazobactam [...] Angelita 07/13/24 at 2301, For 1 dose Start: 02-24-2024 [...] First dose on Wed02/23/24 at 0100, Mini-Bag Plus/ADD-Hollsopple bag, Dosing of this medication varies based [...] Documented Da te Episodic/Chronic Acquired foot deformities (9 sources) Left foot drop; Translations: [Foot drop, left foot] Onset: 10-02-2024 10-02-2024 Episodic Attention-deficit, conduct, and disruptive behavior disorders (10 sources) Attention deficit hyperactivity disorder; Translations: [Attention-deficit hyperactivity disorder, unspecified type] Onset: 06-28-2024 06-28-2024 Chronic Attention-deficit, conduct, and disruptive behavior disorders (2 sources) Attention-deficit hyperactivity disorder, unspecified type; Translations: [Attention-deficit hyperactivity disorder, unspecified type] Onset: 06-28-2024 Chronic Disorders of lipid metabolism (20 sources) Hyperlipidemia; Translations: [Hyperlipidemia, unspecified] Onset: 12-27-2022 12-27-2022 Chronic Mood disorders (20 sources) Bipolar disorder; Translations: [Bipolar disorder, unspecified] Onset: 06-28-2024 08-20-2021 Chronic Nutritional deficiencies (20 sources) Vitamin D deficiency; Translations: [Vitamin D deficiency, unspecified] Onset: 12-27-2022 12-27-2022 Chronic Other connective tissue disease (8 sources) Other symptoms and signs involving the musculoskeletal system; Translations: [Other musculoskeletal symptoms referable to limbs] Onset: 05-19-2024 05-19-2024 Episodic Other connective tissue disease (10 sources) Weakness of foot; Translations: [Other symptoms and signs involving the musculoskeletal system] Onset: 10-02-2024 10-02-2024 Episodic Other gastrointestinal disorders (10 sources) Neurogenic bowel; Translations: [Neurogenic bowel, not [...] encounter] 01-25-2020 Episodic Other nervous system disorders (10 sources) Chronic pain; Translations: [Other chronic pain] Onset: 06-28-2024 06-28-2024 Chronic Other nervous system disorders (3 sources) Other chronic pain; Translations: [Other chronic pain] Onset: 06-28-2024 Chronic Other nervous system disorders (8 sources) Cervical myelopathy; Translations: [Disease of spinal cord, unspecified] Onset: 10-16-2024 07-19-2024 Chronic Other nervous system disorders (2 sources) Chronic low back pain; Translations: [Other chronic pain] 10-02-2024 Chronic Other nervous system disorders (4 sources) Disease of spinal cord, unspecified; Translations: [Disease of spinal cord, unspecified] Onset: 10-16-2024 Chronic Other nervous system disorders (3 sources) Spinal cord disease; Translations: [Disease of spinal cord, unspecified] 11-10-2024 Chronic Other nervous system disorders (4 sources) Paresthesia of skin; Translations: [Paresthesia of skin] Onset: 12-27-2022 Episodic Poisoning by other medications and drugs (2 sources) Overdose of opiate; Translations: [Poisoning by unspecified narcotics, accidental (unintentional), initial encounter] Onset: 10-27-2024 10-23-2024 Episodic Residual codes; unclassified (6 sources) [...] lumbar intervertebral disc] Onset: 01-04-2018 12-27-2022 Chronic Substance-related disorders (7 sources) Smoker; Translations: [Nicotine dependence, unspecified, uncomplicated] Onset: 09-07-2014 06-28-2024 Chronic Suicide and intentional self-inflicted injury (7 sources) Suicidal thoughts; Translations: [Suicidal ideations] 08-30-2021 Episodic Unclassified (1 source) Nicotine dependence, unspecified, [...] source) Myalgia / M79.1(ICD-9) Onset: 05-27-2017 Unclassified (1 source) Speech finding 06-28-2024 Unclassified (3 sources) Low back pain, unspecified; Translations: [Low back pain, unspecified] Onset: 12-14-2023 Past or Other Problems Problem Classification Problem Date Documented Da te Episodic/Chronic Diabetes mellitus without complication (20 sources) Prediabetes; Translations: [Prediabetes] Onset: 12-27-2022 12-27-2022 Episodic Disorders of teeth and jaw (16 sources) Toothache; Translations: [Other specified disorders of teeth and supporting structures] Onset: 06-28-2024 Resolved: 06-28-2024 06-23-2021 Episodic E Codes: Fall (18 sources) Fall; Translations: [Other fall from one level to another, initial encounter] Onset: 05-19-2024 Resolved: 06-28-2024 01-25-2020 Episodic Fever of unknown origin (16 sources) Fever; Translations: [Fever, unspecified] Onset: 06-28-2024 Resolved: 06-28-2024 06-20-2019 Episodic Immunizations and screening for infectious disease (16 sources) Suspected disease caused by 2019-nCoV; Translations: [Suspected 2019 novel coronavirus infection] Onset: 06-28-2024 Resolved: 06-28-2024 06-20-2019 Episodic Other connective tissue disease (16 sources) Pain in left lower limb; Translations: [Pain in left leg] Onset: 05-27-2017 06-28-2024 Episodic Other connective tissue disease (1 source) Myalgia; Translations: [Myalgia] Onset: 05-27-2017 Episodic Other connective tissue disease (20 sources) Spasm of cervical paraspinous muscle; Translations: [Other muscle spasm] Onset: 01-04-2024 03-26-2021 Episodic Other connective tissue disease (7 sources) Tendonitis of left wrist; Translations: [Other enthesopathies, not elsewhere classified] Onset: 09-18-2013 Resolved: 06-28-2024 06-28-2024 Episodic Other connective tissue disease (1 source) Other muscle spasm; Translations: [Other muscle spasm] Onset: 11-14-2023 Episodic Other connective tissue disease (2 sources) Pain in left leg; Translations: [Pain in left leg] Onset: 06-28-2024 Episodic Other connective tissue disease (1 source) Pain in right thigh; Translations: [Pain in right thigh] Onset: 02-02-2024 Episodic Other gastrointestinal disorders (1 source) Full incontinence of feces; Translations: [Full incontinence of feces] Onset: 01-29-2024 Episodic Other gastrointestinal disorders (1 source) Fecal urgency; Translations: [Fecal urgency] Onset: 01-29-2024 Episodic Other nervous system disorders (20 sources) Paresthesia of upper limb; Translations: [Paresthesia of skin] Onset: 12-27-2022 12-27-2022 Episodic Other nervous system disorders (8 sources) Speech finding; Translations: [Other speech disturbances] Onset: 06-28-2024 06-28-2024 Episodic Other nervous system disorders (2 sources) Other speech disturbances; Translations: [Other speech disturbances] Onset: 06-28-2024 Episodic Other non-traumatic joint disorders (20 sources) Shoulder pain; Translations: [Pain in unspecified shoulder] Onset: 12-27-2022 12-27-2022 Episodic Other nutritional; endocrine; and metabolic disorders (20 sources) Overweight; Translations: [Overweight] Onset: 12-27-2022 12-27-2022 Episodic Spondylosis; intervertebral disc disorders; other back problems (20 sources) Cervicalgia; Translations: [Low back pain] Onset: 03-21-2015 09-01-2014 Episodic Sprains and strains (20 sources) Strain of trapezius muscle; Translations: [Strain of other muscles, fascia and tendons at shoulder and upper arm level, left arm, initial encounter] Onset: 08-28-2023 06-13-2019 Episodic Substance-related disorders (7 sources) Marijuana user; Translations: [Cannabis use, unspecified, uncomplicated] Onset: 09-04-2014 Resolved: 06-28-2024 06-28-2024 Episodic Superficial injury; contusion (16 sources) Contusion of chest; Translations: [Contusion of unspecified front wall of thorax, initial encounter] Onset: 06-28-2024 Resolved: 06-28-2024 01-25-2020 Episodic Syncope (13 sources) Syncope; Translations: [Syncope and collapse] Onset: 06-28-2024 Resolved: 06-28-2024 06-16-2022 Episodic Unclassified (1 source) Pain in left [...] [Low back pain, unspecified] Onset: 12-14-2023 Unclassified (6 sources) Onset: 07-19-2024 Resolved: 10-16-2024 07-19-2024 Viral infection (14 sources) Disease caused by 2019-nCoV; Translations: [COVID-19] Onset: 06-28-2024 Resolved: 06-28-2024 08-20-2021 Episodic Results Test Name Value Interpretation Reference Range Facility Bedside Glucoseon 10-25-2024 FINGERSTICK GLU 105 mg/dL Normal 74-106 [facility] Comment on above: Result Comment: YAJAIRA LONDONO OF PATIENT CARE PER NURSING PROTOCOL Performed By: #### L 501.080 #### [facility] Laboratory [address] [place], [address] 12 Lead EKGon 10-23-2024 12 Lead EKG [facility] [address] [address] 12 Lead EKG 10/23/24 1541 MR#: [id number] Acct: [id number] Name: HARMAN JAMIL Rep #: [id number] : 1980 44 From: Kris Hensley MD Attending Dr: Status: DEP ER Ordering Dr: Caleb Smith DO Date: 10/23/24 Location: ED Sex: M C Admitted: Test Reason : ALT LOC Blood Pressure : */* mmHG Vent. Rate : 78 BPM Atrial Rate : 78 BPM P-R Int : 144 ms QRS Dur : 86 ms QT Int : 384 ms P-R-T Axes : 42 55 48 degrees QTcB Int : 437 ms Normal sinus rhythm Normal ECG Confirmed by Kris Hensley ([id number]), film editor DEJAH FRANCISCO ([id number]) on 10/24/2024 11:41:15 AM Referred By: Confirmed By: Kris Hensley 10/24/24 1141 Date ____ Kris Hensley MD CC: Dr. Josafat Tinoco DO; Dr. Caleb Smith DO Signed Normal [facility] Emergency Department Summary on 10-23-2024 Emergency Department Summary [facility] Medical Records Department [address] [place] [address] Emergency Department Summary 10/23/24 MR#: [id number] Acct: [id number] Name: HARMAN JAMIL Rep #: [id number] : 1980 44 From: Caleb Smith DO PCP: Dr. Josafat Tinoco DO Status:REG ER Location: ED ADDENDUM by Dr. Caleb Smith DO on 10/23/24 at 1603 Patient's EKG reviewed and showed sinus rhythm with a rate of 70 bpm. QTc was noted to be 437 with a normal [place] interval 144. 10/23/24 1603 Cosigner Signature (if applicable): cc: Dr. Josafat Tinoco DO * Signed HPI History of Present Illness Chief Complaint: Unresponsive Narrative Narrative: Patient is a 44-year-old male with past medical history of ADHD, cervical radiculopathy status post surgery in February, sciatic who presents to the emergency department with a chief complaint of unresponsiveness. Per security he was found unresponsive outside therefore they brought him in here to be evaluated. [facility] History ADHD Sciatica Cervical radiculopathy Home Medications ???Medication ???Instructions ???Recorded ???Last Taken ???Type cyclobenzaprine 10 mg tablet 10 mg PO QHS PRN PRN Muscle Spasm 04/10/23 Unknown Rx #10 TABLETS gabapentin 300 mg capsule 300 mg PO BID 01/04/24 Unknown His tory baclofen 10 mg tablet mg PO 10/23/24 Unknown History cholecalciferol (vitamin D3) 125 125 mcg PO DAILY 10/23/24 Unknown History mcg (5,000 unit) capsule ibuprofen 800 mg tablet 800 mg PO TID 10/23/24 Unknown His tory Allergy/AdvReac Type Severity Reaction Status Date / [...] pupils were pinpoint. On the differential diagnose i ncludes but limited to opiate overdose, hypoglycemia, electrolyte abnormality. Patient's was hooked up to the monitor he was noted to be tachycardic and hypoxic therefore he was placed on 4 L nasal cannula patient ultimately was given Narcan and shortly after this he immediately woke up and had conversation with us. Patient states that earlier today he went to [place] for a psych eval and he states that this appointment went well. He states that he stopped at a friend's house and then was on his way to see his mother and he notes that he ended up here and is not sure what happened. He denies any history of drug abuse. Patient's [id number] glucose was noted to be 105. Patient according nursing staff ripped all his monitoring off and states that he is leaving. Wanting to discussed with the patient and he states that he wants to go home and go to his mother's house and eat something and try to figure out what happened earlier today. I told the patient that there is (more content not included)... Normal [facility] MR LUMBAR SPINE WO IV CONTRA STon [...] COMPARISON: MR lumbar spine 02/18/2024. ACCESSION NUMBER(S): [id number] ORDERING CLINICIAN: NIGHAT GRIFFIN TECHNIQUE: Multiplanar, multisequence [...] is mild central canal stenosis. There is [id number] left and minimal right neural foraminal narrowing. [...] Hendrix MD. This study was interpreted at [facility], [place], [place]. MACRO: None Signed by: Eufemia Khan 10/13/2024 12:40 PM Dictation workstation: [id number] Normal [facility] CBC W Auto Differential pane l (Bld)on 07-14-2024 Basophils (Bld) [#/Vol] 0.1 10*3/uL 0.0 - 0.2 K/uL [facility] Basophils/100 WBC (Bld) 0.6 % [facility] Eosinophils (Bld) [#/Vol] 0.7 10*3/uL 0.0 - 0.7 K/uL [facility] Eosinophils/100 WBC (Bld) 5.2 % [facility] Erythrocyte distribution width (RBC) [Ratio] 12 % 11.5 - 14.5 % [facility] Hematocrit (Bld) [Volume fraction] 48.2 % 42.0 - 52.0 % [facility] Hemoglobin (Bld) [Mass/Vol] 16.1 g/dL 14.0 - 18.0 g/dL [facility] Interpretation and review of laboratory results Abnormal [facility] Lymphocytes (Bld) [#/Vol] 4 10*3/uL 1.0 - 4.8 K/uL [facility] Lymphocytes/100 WBC (Bld) 31.1 % [facility] MCH (RBC) [Entitic mass] 31.2 pg 27.0 - 31.3 pg [facility] MCHC (RBC) [Mass/Vol] 33.4 % 33.0 - 37.0 % [facility] MCV (RBC) [Entitic vol] 93.4 fL High 79.0 - 92.2 fL [facility] Monocytes (Bld) [#/Vol] 1.1 10*3/uL High 0.2 - 0.8 K/uL [facility] Monocytes/100 WBC (Bld) 8.5 % [facility] Neutrophils (Bld) [#/Vol] 7.1 10*3/uL High 1.4 - 6.5 K/uL [facility] Platelets (Bld) [#/Vol] 312 10*3/uL 130 - 400 K/uL [facility] RBC (Bld) [#/Vol] 5.16 10*6/uL [facility] Segmented neutrophils/100 WBC (Bld) 54.3 % [facility] WBC (Bld) [#/Vol] 13 10*3/uL High 4.8 - 10.8 K/uL [facility] CT Kidney WO contraston 05-0 1. No acute intra-ab dominal or pelvic process. No urinary calculi or obstruction. 2. Focal moderate disc degenerative change L4-L5. [facility] RADIOLOGY EXAMINATION: CT OF THE [...] abnormalities. Focal moderate disc degenerative change L4-L5. [facility] RADIOLOGY Smith Bullock MD - [...] 2. Focal moderate disc degenerative change L4-L5. [email or web address] Kidney WO contrastOrdered By: Smith Bullock on 07-14-2024 TOOVIA [facility] [employer] Work Phone: [facility] Panelon Drug Screen Comment see below [facility] Comment on above: Result Comment: This method is a screening test to detect only these drug classes as part of a medical workup. Confirmatory testing by another method should be ordered if clinically indicated. Performed By: #### U DRGS #### [facility] [address] [place] [address] UR Cannabinoids Screen Positive Abnormal Negative < [facility] Comment on above: Performed By: #### U DRGS #### [facility] [address] [place] [address] UR Fentanyl Screen Negative Normal Negative < [facility] Comment on above: Performed By: #### U DRGS #### [facility] [address] [place] [address] UR Amphetamines Screen Negative Normal Negative < [facility] Comment on above: Performed By: #### U DRGS #### [facility] [address] [place] [address] UR Barbiturates Screen Negative Normal Negative < [facility] Comment on above: Performed By: #### U DRGS #### [facility] [address] [place] [address] UR Benzo Screen Negative Normal Negative < [facility] Comment on above: Performed By: #### U DRGS #### [facility] [address] [place] [address] UR Cocaine Screen Negative Normal Negative < [facility] Comment on above: Performed By: #### U DRGS #### [facility] [address] [place] [address] UR Methadone Screen Negative Normal Negative < [facility] Comment on above: Performed By: #### U DRGS #### [facility] [address] [place] [address] UR Opiates Screen Negative Normal Negative < [facility] Comment on above: Performed By: #### U DRGS #### [facility] [address] [place] [address] UR Oxycodone Screen Negative Normal Negative < [facility] Comment on above: Performed By: #### U DRGS #### [facility] [address] [place] [address] UR PCP Screen Negative Normal Negative < [facility] Comment on above: Performed By: #### U DRGS #### [facility] [address] [place] [address] UR Propoxyphene Screen Negative Normal Negative < [facility] Comment on above: Performed By: #### U DRGS #### [facility] [address] [place] [address] Urinalysis with Reflex to Cu ltureon 07-14-2024 Glucose Test strip (U) [Mass/Vol] Negative Negative mg/dL [facility] Ketones (U) [Mass/Vol] Negative Negative mg/dL [facility] Protein (U) [Mass/Vol] Negative Negative mg/dL [facility] Urine Reflex to Culture Not Indicated [email or web address] Urobilin[facility] Qn (U) 0.2 NINF [facility] Urinalysis, reflex to cultur stephen 07-14-2024 Bilirubin Ql (U) Negative Normal Negative [facility] Comment on above: Performed By: #### C BCWD #### [facility] [address] [place] [address] Clarity (U) Clear Normal Clear [facility] Comment on above: Performed By: #### C BCWD #### [facility] [address] [place] [address] Color (U) Yellow Normal Straw/Glades [facility] Comment on above: Performed By: #### C BCWD #### [facility] [address] [place] [address] Glucose Ql (U) Negative Normal Negative [facility] Comment on above: Performed By: #### C BCWD #### [facility] [address] [place] [address] Hemoglobin Ql (U) Negative Normal Negative [facility] Comment on above: Performed By: #### C BCWD #### [facility] [address] [place] [address] Ketones Ql (U) Negative Normal Negative [facility] Comment on above: Performed By: #### C BCWD #### [facility] [address] [place] [address] Leukocyte esterase Test strip Ql (U) Negative Normal Negative [facility] Comment on above: Performed By: #### C BCWD #### [facility] [address] [place] [address] Nitrite Ql (U) Negative Normal Negative [facility] Comment on above: Performed By: #### C BCWD #### [facility] [address] [place] [address] pH (U) 6.5 [pH] Normal 5.0-9.0 [facility] Comment on above: Performed By: #### C BCWD #### [facility] [address] [place] [address] Protein Ql (U) Negative Normal Negative [facility] Comment on above: Performed By: #### C BCWD #### [facility] [address] [place] [address] Specific gravity (U) [Rel density] 1.026 Normal 1.005-1.03 [facility] Comment on above: Performed By: #### C BCWD #### [facility] [address] [place] [address] Urine Reflexed to Culture Not Indicated Normal [facility] Comment on above: Performed By: #### C BCWD #### [facility] [address] [place] [address] Urobilinogen Qn (U) 0.2 {Bassam'U}/dL Normal < 2.0 [facility] Comment on above: Performed By: #### C BCWD #### [facility] [address] [place] [address] Urine Drug Screenon 05-02-20 25 Amphetamines Ql (U) Negative Negative <1000 ng/mL [facility] Barbiturates Screen Ql (U) Negative Negative < 200 ng/mL [facility] Benzodiazepines Ql (U) Negative Negative < 200 ng/mL [facility] Cannabinoids Screen Ql (U) Positive Abnormal Negative < 50 ng/mL [facility] Cocaine Ql (U) Negative Negative < 300 ng/mL [facility] Drug screen comment (U) [Interp] see below [facility] Comment on above: This method is a scr eening test to detect only these drug classes as part of a medical workup. Confirmatory testing by another method should be ordered if clinically indicated. FENTANYL SCREEN, URINE Negative Negative < 50 ng/mL [facility] Interpretation and review of laboratory results Abnormal [facility] Methadone Screen Ql (U) Negative Negative <300 ng/mL [facility] Opiates Screen Ql (U) Negative Negative < 300 ng/mL [facility] oxyCODONE Ql (U) Negative Negative <100 ng/mL [facility] Phencyclidine Ql (U) Negative Negative < 25 ng/mL [facility] Propoxyphene Screen Ql (U) Negative Negative <300 ng/mL [facility] CBC With Platelet and Differ entialon 07-13-2024 Basophils (Bld) [#/Vol] 0.1 10*3/uL Normal 0.0-0.2 [facility] Comment on above: Performed By: #### C BCWD #### [facility] [address] [facility] [place] [address] Basophils/100 WBC (Bld) 0.6 % Normal [facility] Comment on above: Performed By: #### C BCWD #### [facility] [address] [facility] [place] [address] Eosinophils (Bld) [#/Vol] 0.7 10*3/uL Normal 0.0-0.7 [facility] Comment on above: Performed By: #### C BCWD #### [facility] [address] [place] [address] Eosinophils/100 WBC (Bld) 5.2 % Normal [facility] Comment on above: Performed By: #### C BCWD #### [facility] [address] [place] [address] Erythrocyte distribution width (RBC) [Ratio] 12.0 % Normal 11.5-14.5 [facility] Comment on above: Performed By: #### C BCWD #### [facility] [address] [place] [address] Hematocrit (Bld) [Volume fraction] 48.2 % Normal 42.0-52.0 [facility] Comment on above: Performed By: #### C BCWD #### [facility] [address] [place] [address] Hemoglobin (Bld) [Mass/Vol] 16.1 g/dL Normal 14.0-18.0 [facility] Comment on above: Performed By: #### C BCWD #### [facility] [address] [place] [address] Lymphocytes (Bld) [#/Vol] 4.0 10*3/uL Normal 1.0-4.8 [facility] Comment on above: Performed By: #### C BCWD #### [facility] [address] [place] [address] Lymphocytes/100 WBC (Bld) 31.1 % Normal [facility] Comment on above: Performed By: #### C BCWD #### [facility] [address] [place] [address] MCH (RBC) [Entitic mass] 31.2 pg Normal 27.0-31.3 [facility] Comment on above: Performed By: #### C BCWD #### [facility] [address] [place] [address] MCHC 33.4 % Normal 33.0-37.0 [facility] Comment on above: Performed By: #### C BCWD #### [facility] [address] [place] [address] MCV (RBC) [Entitic vol] 93.4 fL Critically high 79.0-92.2 [facility] Comment on above: Performed By: #### C BCWD #### [facility] [address] [place] [address] Monocytes (Bld) [#/Vol] 1.1 10*3/uL Critically high 0.2-0.8 [facility] Comment on above: Performed By: #### C BCWD #### [facility] [address] [place] [address] Monocytes/100 WBC (Bld) 8.5 % Normal [facility] Comment on above: Performed By: #### C BCWD #### [facility] [address] [place] [address] Neutrophils (Bld) [#/Vol] 7.1 10*3/uL Critically high 1.4-6.5 [facility] Comment on above: Performed By: #### C BCWD #### [facility] [address] [place] [address] Neutrophils/100 WBC (Bld) 54.3 % Normal [facility] Comment on above: Performed By: #### C BCWD #### [facility] [address] [place] [address] Platelets (Bld) [#/Vol] 312 10*3/uL Normal 130-400 [facility] Comment on above: Performed By: #### C BCWD #### [facility] [address] [place] [address] RBC (Bld) [#/Vol] 5.16 10*6/uL Normal 4.70-6.10 [facility] Comment on above: Performed By: #### C BCWD #### [facility] [address] [place] [address] WBC (Bld) [#/Vol] 13.0 10*3/uL Critically high 4.8-10.8 [facility] Comment on above: Performed By: #### C BCWD #### [facility] [address] [place] [address] CT KIDNEY WO CONTRASTon 05-0 CT KIDNEY [...] Smith Bullock MD 07/14/24 Final result Normal [facility] CT Kidney WO contraston 05-0 Radiology Study observation (narrative) Jr [facility] Comprehensive Metabolic Pane ashok 07-13-2024 Albumin [Mass/Vol] 4.7 g/dL Critically high 3.5-4.6 [facility] Comment on above: Performed By: #### L ACID #### [facility] [address] [place] [address] ALP [Catalytic activity/Vol] 81 U/L Normal 35-104 [facility] Comment on above: Performed By: #### L ACID #### [facility] [address] [place] [address] ALT [Catalytic activity/Vol] 32 U/L Normal 0-41 [facility] Comment on above: Performed By: #### L ACID #### [facility] [address] [place] [address] Anion gap [Moles/Vol] 12 mmol/L Normal 9-15 [facility] Comment on above: Performed By: #### L ACID #### [facility] [address] [place] [address] AST [Catalytic activity/Vol] 22 U/L Normal 0-40 [facility] Comment on above: Performed By: #### L ACID #### [facility] [address] [place] [address] Bilirubin [Mass/Vol] mg/dL Normal 0.2-0.7 [facility] Comment on above: Performed By: #### L ACID #### [facility] [address] [place] [address] Calcium [Mass/Vol] 9.6 mg/dL Normal 8.5-9.9 [facility] Comment on above: Performed By: #### L ACID #### [facility] [address] [place] [address] Chloride [Moles/Vol] 99 mmol/L Normal 95-107 [facility] Comment on above: Performed By: #### L ACID #### [facility] [address] [place] [address] CO2 [Moles/Vol] 28 mmol/L Normal 20-31 [facility] Comment on above: Performed By: #### L ACID #### [facility] [address] [place] [address] Creatinine [Mass/Vol] 1.08 mg/dL Normal 0.70-1.20 [facility] Comment on above: Performed By: #### L ACID #### [facility] [address] [place] [address] GFR 87.4 Normal >60 [facility] Comment on above: Result Comment: Abbie niccic calculator link https://www.kidney.org/professionals/kdoqi/gfr_calculatorped Effective Dec 15, [...] secretion. Performed By: #### L ACID #### [facility] [address] [place] [address] Globulin (S) [Mass/Vol] 3.2 g/dL Normal 2.3-3.5 [facility] Comment on above: Performed By: #### L ACID #### [facility] [address] [place] [address] Glucose [Mass/Vol] 87 mg/dL Normal 70-99 [facility] Comment on above: Performed By: #### L ACID #### [facility] [address] [place] [address] Potassium [Moles/Vol] 4.2 mmol/L Normal 3.4-4.9 [facility] Comment on above: Performed By: #### L ACID #### [facility] [address] [place] [address] Protein [Mass/Vol] 7.9 g/dL Normal 6.3-8.0 [facility] Comment on above: Performed By: #### L ACID #### [facility] [address] [place] [address] Sodium [Moles/Vol] 139 mmol/L Normal 135-144 [facility] Comment on above: Performed By: #### L ACID #### [facility] [address] [place] [address] Urea nitrogen [Mass/Vol] 25 mg/dL Critically high 6-20 [facility] Comment on above: Performed By: #### L ACID #### [facility] [address] [place] [address] Comprehensive metabolic 2000 panelon 07-13-2024 Albumin [Mass/Vol] 4.7 g/dL High 3.5 - 4.6 g/dL [facility] ALP [Catalytic activity/Vol] 81 U/L 35 - 104 U/L [facility] ALT [Catalytic activity/Vol] 32 U/L 0 - 41 U/L [facility] Anion gap [Moles/Vol] 12 mmol/L [facility] AST [Catalytic activity/Vol] 22 U/L 0 - 40 U/L [facility] Bilirubin [Mass/Vol] mg/dL 0.2 - 0.7 mg/dL [facility] Calcium [Mass/Vol] 9.6 mg/dL 8.5 - 9.9 mg/dL [facility] Chloride [Moles/Vol] 99 mmol/L [facility] CO2 [Moles/Vol] 28 mmol/L [facility] Creatinine [Mass/Vol] 1.08 mg/dL 0.70 - 1.20 mg/dL [facility] GFR/1.73 sq M.predicted among non-blacks MDRD (S/P/Bld) [Vol rate/Area] 87.4 mL/min/{1.73_m2} 60 - PINF [facility] Comment on above: Pediatric calculator link [...] [Mass/Vol] 3.2 g/dL 2.3 - 3.5 g/dL [facility] Glucose [Mass/Vol] 87 mg/dL 70 - 99 mg/dL [facility] Interpretation and review of laboratory results Abnormal [facility] Potassium [Moles/Vol] 4.2 mmol/L [facility] Protein [Mass/Vol] 7.9 g/dL 6.3 - 8.0 g/dL [facility] Sodium [Moles/Vol] 139 mmol/L [facility] Urea nitrogen [Mass/Vol] 25 mg/dL High 6 - 20 mg/dL [facility] Lactate (BldV) [Moles/Vol]on 07-13-2024 [facility] Lactic Acidon 07-13-2024 Lactate (BldV) [Moles/Vol] 1.3 mmol/L 0.5 - 2.2 mmol/L [facility] Lactate [Moles/Vol] 1.3 mmol/L Normal 0.5-2.2 [facility] Comment on above: Performed By: #### L ACID #### [facility] [address] [place] [address] Procalcitoninon 07-13-2024 Procalcitonin IA [Mass/Vol] 0.03 ng/mL 0.00 - 0.15 ng/mL [facility] Comment on above: Suspected Sepsis: Low likelihood [...] to determine the patient's Mortality Risk Prognosis (www.kkfqzg-eja-iuimwnnwzt.com) In healthy neonates, plasma Procalcitonin (PCT) concentrations increase gradually after , reaching peak values at about 24 hours of age then decrease to normal values below 0.5 ng/mL by 48-72 hours of age. Procalcitonin 0.03 ng/mL Normal 0.00-0.15 [facility] Comment on above: Result Comment: Susp ected [...] to determine the patient's Mortality Risk Prognosis (www.zqvxse-zoy-aqxhsvhdjp.[employer] (formerly [employer])) In healthy neonates, plasma Procalcitonin (PCT) concentrations increase gradually after , reaching peak values at about 24 hours of age then decrease to normal values below 0.5 ng/mL by 48-72 hours of age. Performed By: #### P ROCT #### [facility] [address] [facility] [id number] Procalcitonin IA [Mass/Vol]o n 07-13-2024 [facility] XR CERVICAL SPINE 2-3 VIEWSo n 06-06-2024 XR CERVICAL SPINE 2-3 VIEWS Interpreted By: Sha Foster, STUDY: XR CERVICAL SPINE 2-3 VIEWS; 06/06/2024 11:08 am INDICATION: Signs/Symptoms:Pain. ACCESSION NUMBER(S): [id number] ORDERING CLINICIAN: SHA FOSTER FINDINGS: AP lateral [...] Sha Foster 06/06/2024 3:56 PM Dictation workstation: [id number] [facility] XR Cervical spine 2 or 3 Vie wson 06-06-2024 Interpreted By: Sha Chacon, STUDY: XR CERVICAL SPINE 2-3 VIEWS; 06/06/2024 11:08 am INDICATION: Signs/Symptoms:Pain. ACCESSION NUMBER(S): [id number] ORDERING CLINICIAN: SHA FOSTER FINDINGS: AP lateral [...] Sha Foster 06/06/2024 3:56 PM Dictation workstation: [id number] MMSha Dorantes MD - 06/06/2024 Interpreted By: Sha Foster, STUDY: XR CERVICAL SPINE 2-3 VIEWS; 06/06/2024 11:08 am INDICATION: Signs/Symptoms:Pain. ACCESSION NUMBER(S): [id number] ORDERING CLINICIAN: SHA FOSTER FINDINGS: AP lateral [...] Sha Foster 06/06/2024 3:56 PM Dictation workstation: [id number] [facility] Work Phone: [facility] Work Phone: Radiology Study observation (narrative) [facility] Work Phone: CT CERVICAL SPINE WO CONTRAS [...] Dorothy Cruz MD 05/19/24 Final result Normal [facility] CT Cervical spine WO contras ton 05-19-2024 No acute abnormality of the cervical spine. [facility] RADIOLOGY EXAMINATION: CT OF THE [...] There is no prevertebral soft tissue swelling. [facility] RADIOLOGY Dorothy Cruz MD - [...] No acute abnormality of the cervical spine. [facility] CT Cervical spine WO contras tOrdered By: Dorothy Cruz on 05-19-2024 [facility] Work Phone: CT LUMBAR SPINE WO CONTRASTo [...] and L5-S1, with vacuum phenomenon. There is [id number]-twnuthfn bilateral neural foraminal stenosis at these levels. SOFT TISSUES/RETROPERITONEUM: No paraspinal mass is seen. IMPRESSION: 1. No acute osseous abnormality of the lumbar spine. 2. Degenerative disc disease at L4-L5 and L5-S1. Interpreted by: Dorothy Cruz MD Signed by: Dorothy Cruz MD 05/19/24 Final result Normal [facility] CT Lumbar spine WO contrasto n 05-19-2024 1. No acute osseous abnormality of the lumbar spine. 2. Degenerative disc disease at L4-L5 and L5-S1. [facility] RADIOLOGY EXAMINATION: CT OF THE [...] and L5-S1, with vacuum phenomenon. There is [id number]-rh-cemqwvuy bilateral neural foraminal stenosis at these levels. SOFT TISSUES/RETROPERITONEUM: No paraspinal mass is seen. [facility] RADIOLOGY Dorothy Cruz MD - [...] and L5-S1, with vacuum phenomenon. There is [id number]-vv-[id number] bilateral neural foraminal stenosis at these levels. SOFT TISSUES/RETROPERITONEUM: No paraspinal mass is seen. IMPRESSION: 1. No acute osseous abnormality of the lumbar spine. 2. Degenerative disc disease at L4-L5 and L5-S1. [facility] No Panel Informationon 05-19 Radiology Study observation (narrative) [facility] XR HIP 2-3 VW W PELVIS LEFTo [...] Jonnathan Liz MD 05/18/24 Final result Normal [facility] XR Pelvis and Hip - left 2 V iewson 05-18-2024 Normal radiographs o f the left hip and pelvis. [facility] RADIOLOGY EXAMINATION: ONE XRAY VIEW [...] appearance. The bowel gas pattern is unremarkable. [facility] RADIOLOGY Jonnathan Liz MD - [...] radiographs of the left hip and pelvis. [facility] Radiology Study observation (narrative) [facility] XR Pelvis and Hip - left 2 V iewsOrdered By: Jonnathan Liz on 05-18-2024 [facility] Work Phone: XR CERVICAL SPINE 2-3 VIEWSo n 03-07-2024 XR CERVICAL SPINE 2-3 VIEWS Interpreted By: Sha Foster, STUDY: XR CERVICAL SPINE 2-3 VIEWS; 03/07/2024 10:52 am INDICATION: Signs/Symptoms:neck pain. ACCESSION NUMBER(S): [id number] ORDERING CLINICIAN: SHA FOSTER FINDINGS: AP lateral [...] Sha Foster 03/07/2024 11:17 AM Dictation workstation: [id number] [facility] XR Cervical spine 2 or 3 Vie wson 03-07-2024 Interpreted By: Sha Chacon, STUDY: XR CERVICAL SPINE 2-3 VIEWS; 03/07/2024 10:52 am INDICATION: Signs/Symptoms:neck pain. ACCESSION NUMBER(S): [id number] ORDERING CLINICIAN: SHA OFSTER FINDINGS: AP lateral x-rays of the cervical [...] Sha Foster 03/07/2024 11:17 AM Dictation workstation: [id number] MMSha Dorantes MD - 03/07/2024 Interpreted By: Sha Foster, STUDY: XR CERVICAL SPINE 2-3 VIEWS; 03/07/2024 10:52 am INDICATION: Signs/Symptoms:neck pain. ACCESSION NUMBER(S): [id number] ORDERING CLINICIAN: SHA FOSTER FINDINGS: AP lateral [...] Sha Foster 03/07/2024 11:17 AM Dictation workstation: [id number] [facility] Work Phone: [facility] Work Phone: Radiology Study observation (narrative) [facility] Work Phone: Basic metabolic 2000 panelon 02-26-2024 Anion gap [Moles/Vol] 10 mmol/L 10 - 20 mmol/L [facility] Calcium [Mass/Vol] 8.9 mg/dL 8.6 - 10. 3 mg/dL [facility] Chloride [Moles/Vol] 102 mmol/L 98 - 107 mmol/L [facility] CO2 [Moles/Vol] 30 mmol/L 21 - 32 mmol/L [facility] Creatinine [Mass/Vol] 1.04 mg/dL 0.50 - 1.30 mg/dL [facility] eGFR - PINF [facility] Comment on above: Calculations of katie mated GFR are performed using the 2020 CKD-EPI Study Refit equation without the race variable for the IDMS-Traceable creatinine methods. https://jasn.asnjournals.org/content//ASN.115401862 8 Glucose [Mass/Vol] 124 mg/dL High 74 - 99 mg/dL [facility] Interpretation and review of laboratory results Abnormal [facility] Potassium [Moles/Vol] 4.2 mmol/L 3.5 - 5.3 mmol/L [facility] Sodium [Moles/Vol] 138 mmol/L 136 - 145 mmol/L [facility] Urea nitrogen [Mass/Vol] 11 mg/dL 6 - 23 mg/dL [facility] Anion gap [Moles/Vol] 10 mmol/L Normal 10-20 [facility] Comment on above: Performed By: #### 2 4323-8 #### ESTELITA LARKIN ([id number]) [facility] [address] [place] [address] Calcium [Mass/Vol] 8.9 mg/dL Normal 8.6-10.3 [facility] Comment on above: Performed By: #### 2 4323-8 #### ESTELITA LARKIN ([id number]) [facility] [address] [place] [address] Chloride [Moles/Vol] 102 mmol/L Normal 98-107 [facility] Comment on above: Performed By: #### 2 4323-8 #### ESTELITA LARKIN ([id number]) [facility] [address] [place] [address] CO2 [Moles/Vol] 30 mmol/L Normal 21-[address] [facility] Comment on above: Performed By: #### 2 4323-8 #### ESTELITA LARKIN ([id number]) [facility] [address] [place] [address] Creatinine [Mass/Vol] 1.04 mg/dL Normal 0.50-1.30 [facility] Comment on above: Performed By: #### 2 4323-8 #### ESTELITA LARKIN ([id number]) [facility] [address] [place] [address] GFR/1.73 sq M.predicted MDRD (S/P/Bld) [Vol rate/Area] mL/min/{1.73_m2} Normal >60 [facility] Comment on above: Result Comment: Calc ulations of estimated GFR are performed using the 2020 CKD-EPI Study Refit equation without the race variable for the IDMS-Traceable creatinine methods. https://jasn.asnjournals.org/content//ASN.345578044 8 Performed By: #### 2 4323-8 #### ESTELITA LARKIN ([id number]) [facility] [address] [place] [address] Glucose [Mass/Vol] 124 mg/dL High 74-99 [facility] Comment on above: Performed By: #### 2 4323-8 #### ESTELITA LARKIN ([id number]) [facility] [address] [place] [address] Potassium [Moles/Vol] 4.2 mmol/L Normal 3.5-5.3 [facility] Comment on above: Performed By: #### 2 4323-8 #### ESTELITA LARKIN ([id number]) [facility] [address] [place] [address] Sodium [Moles/Vol] 138 mmol/L Normal 136-145 [facility] Comment on above: Performed By: #### 2 4323-8 #### ESTELITA LARKIN ([id number]) [facility] [address] [place] [address] Urea nitrogen [Mass/Vol] 11 mg/dL Normal 6-23 [facility] Comment on above: Performed By: #### 2 4323-8 #### ESTELITA LARKIN ([id number]) [facility] [address] [place] [address] CBC panel Auto (Bld)on 02-25 Erythrocyte distribution width (RBC) [Ratio] 11.9 % 11.5 - 14.5 % [facility] Hematocrit (Bld) [Volume fraction] 40.5 % Low 41.0 - 52.0 % [facility] Hemoglobin (Bld) [Mass/Vol] 13.2 g/dL Low 13.5 - 17.5 g/dL [facility] Interpretation and review of laboratory results Abnormal [facility] MCH (RBC) [Entitic mass] 31.8 pg 26.0 - 34.0 pg [facility] MCHC (RBC) [Mass/Vol] 32.6 g/dL 32.0 - 36.0 g/dL [facility] MCV (RBC) [Entitic vol] 98 fL 80 - 100 fL [facility] Nucleated RBC/100 WBC (Bld) [Ratio] 0 % [facility] Platelets (Bld) [#/Vol] 267 10*3/uL [facility] RBC (Bld) [#/Vol] 4.15 10*6/uL Low [facility] WBC (Bld) [#/Vol] 9.6 10*3/uL [facility] Erythrocyte distribution width (RBC) [Ratio] 11.9 % Normal 11.5-14.5 [facility] Comment on above: Performed By: #### 5 902-2 #### ESTELITA LARKIN ([id number]) [facility] ([facility]) [address] [place] [address] 73540 Hematocrit (Bld) [Volume fraction] 40.5 % Low 41.0-52.0 [facility] Comment on above: Performed By: #### 5 902-2 #### ESTELITA LARKIN ([id number]) [facility] ([facility]) [address] [place] [address] 89093 Hemoglobin (Bld) [Mass/Vol] 13.2 g/dL Low 13.5-17.5 [facility] Comment on above: Performed By: #### 5 902-2 #### ESTELITA LARKIN ([id number]) [facility] ([facility]) [address] [place] [address] 69939 MCH (RBC) [Entitic mass] 31.8 pg Normal 26.0-34.0 [facility] Comment on above: Performed By: #### 5 902-2 #### ESTELITA LARKIN ([id number]) [facility] ([facility]) [address] [place] [address] 31069 MCHC (RBC) [Mass/Vol] 32.6 g/dL Normal 32.0-36.0 [facility] Comment on above: Performed By: #### 5 902-2 #### ESTELITA LARKIN ([id number]) [facility] ([facility]) [address] [place] [address] 85950 MCV (RBC) [Entitic vol] 98 fL Normal 80-100 [facility] Comment on above: Performed By: #### 5 902-2 #### ESTELITA LARKIN ([id number]) [facility] ([facility]) [address] [place] [address] 01257 Nucleated RBC/100 WBC (Bld) [Ratio] 0.0 /100 WBCs Normal 0.0-0.0 [facility] Comment on above: Performed By: #### 5 902-2 #### ESTELITA LARKIN ([id number]) [facility] ([facility]) [address] [place] [address] 11093 Platelets (Bld) [#/Vol] 267 x10*3/uL Normal 150-450 [facility] Comment on above: Performed By: #### 5 902-2 #### ESTELITA LARKIN ([id number]) [facility] ([facility]) [address] [place] [address] RBC (Bld) [#/Vol] 4.15 x10*6/uL Low 4.50-5.90 [facility] Comment on above: Performed By: #### 5 902-2 #### ESTELITA LARKIN ([id number]) [facility] ([facility]) [address] [place], [place] [id number] WBC (Bld) [#/Vol] 9.6 x10*3/uL Normal 4.4-11.3 [facility] Comment on above: Performed By: #### 5 902-2 #### ESTELITA LARKIN ([id number]) [facility]) [address] [place] [address] 38318 Bacteria identified Cx Nom ( Unsp spec)Ordered By: Radha Joyner on 02-25-2024 Interpretation and review of laboratory results Abnormal [facility] Microscopic observation Gram stain Nom (Unsp spec) (2+) Few Polymorphonuclear leukocytes Abnormal [facility] Microscopic observation Gram stain Nom (Unsp spec) Positive Abnormal [facility] Basic metabolic 2000 panelon 02-25-2024 Anion gap [Moles/Vol] 14 mmol/L 10 - 20 mmol/L [facility] Calcium [Mass/Vol] 8.7 mg/dL 8.6 - 10. 3 mg/dL [facility] Chloride [Moles/Vol] 99 mmol/L 98 - 107 mmol/L [facility] CO2 [Moles/Vol] 25 mmol/L 21 - 32 mmol/L [facility] Creatinine [Mass/Vol] 1.15 mg/dL 0.50 - 1.30 mg/dL [facility] GFR/1.73 sq M.predicted among non-blacks MDRD (S/P/Bld) [Vol rate/Area] 81 mL/min/{1.73_m2} - PINF [facility] Comment on above: Calculations of katie mated GFR are performed using the 2020 CKD-EPI Study Refit equation without the race variable for the IDMS-Traceable creatinine methods. https://jasn.asnjournals.org/content//ASN.636876535 8 Glucose [Mass/Vol] 176 mg/dL High 74 - 99 mg/dL [facility] Interpretation and review of laboratory results Abnormal [facility] Potassium [Moles/Vol] 4 mmol/L 3.5 - 5.3 mmol/L [facility] Sodium [Moles/Vol] 134 mmol/L Low 136 - 145 mmol/L [facility] Urea nitrogen [Mass/Vol] 17 mg/dL 6 - 23 mg/dL [facility] Anion gap [Moles/Vol] 14 mmol/L Normal 10-20 [facility] Comment on above: Performed By: #### 5 902-2 #### AVTARIBKARI LARKIN ([id number]) [facility] ([facility]) [address] [place] [address] 79093 Calcium [Mass/Vol] 8.7 mg/dL Normal 8.6-10.3 [facility] Comment on above: Performed By: #### 5 902-2 #### AVTARIBELIKAMERON ZOHRA BANDAR ([id number]) [facility] ([facility]) [address] [place] [address] 70136 Chloride [Moles/Vol] 99 mmol/L Normal 98-107 [facility] Comment on above: Performed By: #### 5 902-2 #### ANAIBELIKAMERON ZOHRA BANDAR ([id number]) [facility] ([facility]) [address] [place] [address] 25102 CO2 [Moles/Vol] 25 mmol/L Normal 21-[address] [facility] Comment on above: Performed By: #### 5 902-2 #### ANAIBELIKAMERON ZOHRA BANDAR ([id number]) [facility] ([facility]) [address] [place] [address] 18987 Creatinine [Mass/Vol] 1.15 mg/dL Normal 0.50-1.30 [facility] Comment on above: Performed By: #### 5 902-2 #### ESTELITA LARKIN ([id number]) [facility] ([facility]) [address] [place] [address] 70110 Glomerular filtration rate/1.73 sq M.predicted 81 mL/min/1.73m*2 Normal >60 [facility] Comment on above: Result Comment: Calc ulations of estimated GFR are performed using the 2020 CKD-EPI Study Refit equation without the race variable for the IDMS-Traceable creatinine methods. https://jasn.asnjournals.org/content//ASN.273766660 8 Performed By: #### 5 902-2 #### ESTELITA LARKIN ([id number]) [facility] ([facility]) [address] [place] [address] 81539 Glucose [Mass/Vol] 176 mg/dL High 74-99 [facility] Comment on above: Performed By: #### 5 902-2 #### ESTELITA LARKIN ([id number]) [facility] ([facility]) [address] [place] [address] 20473 Potassium [Moles/Vol] 4.0 mmol/L Normal 3.5-5.3 [facility] Comment on above: Performed By: #### 5 902-2 #### ESTELITA LARKIN ([id number]) [facility] ([facility]) [address] [place] [address] 78538 Sodium [Moles/Vol] 134 mmol/L Low 136-145 [facility] Comment on above: Performed By: #### 5 902-2 #### ESTELITA LARKIN ([id number]) [facility]) [address] [place] [address] 55761 Urea nitrogen [Mass/Vol] 17 mg/dL Normal 6-23 [facility] Comment on above: Performed By: #### 5 902-2 #### ESTELITA LARKIN ([id number]) [facility] ([facility]) [address] [place] [address] CBC panel Auto (Bld)on 02-24 Erythrocyte distribution width (RBC) [Ratio] 11.5 % 11.5 - 14.5 % [facility] Hematocrit (Bld) [Volume fraction] 38.4 % Low 41.0 - 52.0 % [facility] Hemoglobin (Bld) [Mass/Vol] 13.1 g/dL Low 13.5 - 17.5 g/dL [facility] Interpretation and review of laboratory results Abnormal [facility] MCH (RBC) [Entitic mass] 32.3 pg 26.0 - 34.0 pg [facility] MCHC (RBC) [Mass/Vol] 34.1 g/dL 32.0 - 36.0 g/dL [facility] MCV (RBC) [Entitic vol] 95 fL 80 - 100 fL [facility] Nucleated RBC/100 WBC (Bld) [Ratio] 0 % [facility] Platelets (Bld) [#/Vol] 261 10*3/uL [facility] RBC (Bld) [#/Vol] 4.05 10*6/uL Low [facility] WBC (Bld) [#/Vol] 15.5 10*3/uL [facility] Erythrocyte distribution width (RBC) [Ratio] 11.5 % Normal 11.5-14.5 [facility] Comment on above: Performed By: #### 5 902-2 #### ESTELITA LARKIN ([id number]) [facility] ([facility]) [address] [place] [address] Hematocrit (Bld) [Volume fraction] 38.4 % Low 41.0-52.0 [facility] Comment on above: Performed By: #### 5 902-2 #### ESTELITA LARKIN ([id number]) [facility]) [address] [place] [address] Hemoglobin (Bld) [Mass/Vol] 13.1 g/dL Low 13.5-17.5 [facility] Comment on above: Performed By: #### 5 902-2 #### ESTELITA LARKIN ([id number]) [facility] ([facility]) [address] [place] [address] 01319 MCH (RBC) [Entitic mass] 32.3 pg Normal 26.0-34.0 [facility] Comment on above: Performed By: #### 5 902-2 #### ESTELITA LARKIN ([id number]) [facility] ([facility]) [address] [place] [address] 26565 MCHC (RBC) [Mass/Vol] 34.1 g/dL Normal 32.0-36.0 [facility] Comment on above: Performed By: #### 5 902-2 #### ESTELITA LARKIN ([id number]) [facility] ([facility]) [address] [place] [address] 86059 MCV (RBC) [Entitic vol] 95 fL Normal 80-100 [facility] Comment on above: Performed By: #### 5 902-2 #### ESTELITA LARKIN ([id number]) [facility] ([facility]) [address] [place] [address] 83446 Nucleated RBC/100 WBC (Bld) [Ratio] 0.0 /100 WBCs Normal 0.0-0.0 [facility] Comment on above: Performed By: #### 5 902-2 #### ESTELITA LARKIN ([id number]) [facility] ([facility]) [address] [place] [address] 63704 Platelets (Bld) [#/Vol] 261 x10*3/uL Normal 150-450 [facility] Comment on above: Performed By: #### 5 902-2 #### ESTELITA LARKIN ([id number]) [facility] ([facility]) [address] [place] [address] 11791 RBC (Bld) [#/Vol] 4.05 x10*6/uL Low 4.50-5.90 [facility] Comment on above: Performed By: #### 5 902-2 #### ESTELITA LARKIN ([id number]) [facility] ([facility]) [address] [place] [address] 34088 WBC (Bld) [#/Vol] 15.5 x10*3/uL High 4.4-11.3 [facility] Comment on above: Performed By: #### 5 902-2 #### ESTELITA LARKIN ([id number]) [facility] ([facility]) [address] [place] [address] 11992 No Panel Informationon 02-24 [facility] Tissue/Wound Culture/SmearOr dered By: Radha Joyner on 02-25-2024 Bacteria identified Cx Nom (Unsp spec) (4+) Abundant Methicillin Resistant Staphylococcus aureus (MRSA) Abnormal [facility] Comment on above: Methicillin (Oxacill in) resistant Staphylococci are resistant to all currently available Penicillins, Beta-lactam/Beta-lactamase inhibitor combinations (including Ampicillin/Sulbactam, Amoxicillin/Clavulanate and Pipercillin/Tazobactam), Carbapenems and Cephalosporins (except Ceftaroline). Vancomycinon 02-25-2024 Vancomycin [Mass/Vol] 13.7 ug/mL 5.0 - 20.0 ug/mL [facility] Vancomycin [Mass/Vol] 13.7 ug/mL Normal 5.0-20.0 [facility] Comment on above: Order Comment: Vanco mycin [...] By: #### 5 902-2 #### ESTELITA LARKIN ([id number]) [facility] ([facility]) [address] [place] [address] 53012 Vancomycin [Mass/Vol]on 02-12 Interpretation and review of laboratory results Normal [facility] Vancomycin levels can be monitored according to [...] 30.0-40.0 ug/mL Trough (all ages): 10.0-20.0 ug/mL [facility] Basic metabolic 2000 panelon 02-24-2024 Anion gap [Moles/Vol] 10 mmol/L 10 - 20 mmol/L [facility] Calcium [Mass/Vol] 8.8 mg/dL 8.6 - 10. 3 mg/dL [facility] Chloride [Moles/Vol] 104 mmol/L 98 - 107 mmol/L [facility] CO2 [Moles/Vol] 29 mmol/L 21 - 32 mmol/L [facility] Creatinine [Mass/Vol] 1.17 mg/dL 0.50 - 1.30 mg/dL [facility] GFR/1.73 sq M.predicted among non-blacks MDRD (S/P/Bld) [Vol rate/Area] 80 mL/min/{1.73_m2} - PINF [facility] Comment on above: Calculations of katie mated GFR are performed using the 2020 CKD-EPI Study Refit equation without the race variable for the IDMS-Traceable creatinine methods. https://jasn.asnjournals.org/content//ASN.619545312 8 Glucose [Mass/Vol] 108 mg/dL High 74 - 99 mg/dL [facility] Interpretation and review of laboratory results Abnormal [facility] Potassium [Moles/Vol] 3.9 mmol/L 3.5 - 5.3 mmol/L [facility] Sodium [Moles/Vol] 139 mmol/L 136 - 145 mmol/L [facility] Urea nitrogen [Mass/Vol] 13 mg/dL 6 - 23 mg/dL [facility] Anion gap [Moles/Vol] 10 mmol/L Normal 10-20 [facility] Comment on above: Order Comment: Savannah long obtain BMP on this date xxxxxx, call your PCP to review results/treatment plansThank you Performed By: #### 5 902-2 #### ESTELITA LARKIN ([id number]) [facility] ([facility]) [address] [place] [address] 70351 Calcium [Mass/Vol] 8.8 mg/dL Normal 8.6-10.3 [facility] Comment on above: Order Comment: Pleas ethan obtain BMP on this date xxxxxx, call your PCP to review results/treatment plansThank you Performed By: #### 5 902-2 #### ESTELITA LARKIN ([id number]) [facility] ([facility]) [address] [place] [address] 81285 Chloride [Moles/Vol] 104 mmol/L Normal 98-107 [facility] Comment on above: Order Comment: Savannah long obtain BMP on this date xxxxxx, call your PCP to review results/treatment plansThank you Performed By: #### 5 902-2 #### ESTELITA LARKIN ([id number]) [facility] ([facility]) [address] [place] [address] 61513 CO2 [Moles/Vol] 29 mmol/L Normal 21-[address] [facility] Comment on above: Order Comment: Pleas e obtain BMP on this date xxxxxx, call your PCP to review results/treatment plansThank you Performed By: #### 5 902-2 #### ESTELITA LARKIN ([id number]) [facility] ([facility]) [address] [place] [address] 59747 Creatinine [Mass/Vol] 1.17 mg/dL Normal 0.50-1.30 [facility] Comment on above: Order Comment: Pleas e obtain BMP on this date xxxxxx, call your PCP to review results/treatment plansThank you Performed By: #### 5 902-2 #### ESTELITA LARKIN ([id number]) [facility] ([facility]) [address] [place] [address] 67657 Glomerular filtration rate/1.73 sq M.predicted 80 mL/min/1.73m*2 Normal >60 [facility] Comment on above: Order Comment: Savannah long obtain BMP on this date xxxxxx, call your PCP to review results/treatment plansThank you Result Comment: Calc ulations of estimated GFR are performed using the 2020 CKD-EPI Study Refit equation without the race variable for the IDMS-Traceable creatinine methods. https://jasn.asnjournals.org/content/early//ASN.413476315 8 Performed By: #### 5 902-2 #### ESTELITA LARKIN ([id number]) [facility] ([facility]) [address] [place] [address] 47928 Glucose [Mass/Vol] 108 mg/dL High 74-99 [facility] Comment on above: Order Comment: Savannah long obtain BMP on this date xxxxxx, call your PCP to review results/treatment plansThank you Performed By: #### 5 902-2 #### ESTELITA LARKIN ([id number]) [facility] ([facility]) [address] [place] [address] 94018 Potassium [Moles/Vol] 3.9 mmol/L Normal 3.5-5.3 [facility] Comment on above: Order Comment: Savannah long obtain BMP on this date xxxxxx, call your PCP to review results/treatment plansThank you Performed By: #### 5 902-2 #### ESTELITA LARKIN ([id number]) [facility] ([facility]) [address] [place] [address] 26944 Sodium [Moles/Vol] 139 mmol/L Normal 136-145 [facility] Comment on above: Order Comment: Savannah long obtain BMP on this date xxxxxx, call your PCP to review results/treatment plansThank you Performed By: #### 5 902-2 #### ESTELITA LARKIN ([id number]) [facility] ([facility]) [address] [place] [address] Urea nitrogen [Mass/Vol] 13 mg/dL Normal 6-23 [facility] Comment on above: Order Comment: Savannah davalos BMP on this date xxxxxx, call your PCP to review results/treatment plansThank you Performed By: #### 5 902-2 #### ESTELITA LARKIN ([id number]) [facility]) [address] [place] [address] CBC panel Auto (Bld)on 02-23 Erythrocyte distribution width (RBC) [Ratio] 11.6 % 11.5 - 14.5 % [facility] Hematocrit (Bld) [Volume fraction] 40.2 % Low 41.0 - 52.0 % [facility] Hemoglobin (Bld) [Mass/Vol] 13.3 g/dL Low 13.5 - 17.5 g/dL [facility] Interpretation and review of laboratory results Abnormal [facility] MCH (RBC) [Entitic mass] 32 pg 26.0 - 34.0 pg [facility] MCHC (RBC) [Mass/Vol] 33.1 g/dL 32.0 - 36.0 g/dL [facility] MCV (RBC) [Entitic vol] 97 fL 80 - 100 fL [facility] Nucleated RBC/100 WBC (Bld) [Ratio] 0 % [facility] Platelets (Bld) [#/Vol] 235 10*3/uL [facility] RBC (Bld) [#/Vol] 4.15 10*6/uL Low [facility] WBC (Bld) [#/Vol] 7.5 10*3/uL [facility] Erythrocyte distribution width (RBC) [Ratio] 11.6 % Normal 11.5-14.5 [facility] Comment on above: Performed By: #### 5 902-2 #### ESTELITA LARKIN ([id number]) [facility] ([facility]) [address] [place] [address] 56788 Hematocrit (Bld) [Volume fraction] 40.2 % Low 41.0-52.0 [facility] Comment on above: Performed By: #### 5 902-2 #### ESTELITA LARKIN ([id number]) [facility] ([facility]) [address] [place] [address] 75133 Hemoglobin (Bld) [Mass/Vol] 13.3 g/dL Low 13.5-17.5 [facility] Comment on above: Performed By: #### 5 902-2 #### ESTELITA LARKIN ([id number]) [facility] ([facility]) [address] [place] [address] 47239 MCH (RBC) [Entitic mass] 32.0 pg Normal 26.0-34.0 [facility] Comment on above: Performed By: #### 5 902-2 #### ESTELITA LARKIN ([id number]) [facility] ([facility]) [address] [place] [address] 57692 MCHC (RBC) [Mass/Vol] 33.1 g/dL Normal 32.0-36.0 [facility] Comment on above: Performed By: #### 5 902-2 #### ESTELITA LARKIN ([id number]) [facility] ([facility]) [address] [place] [address] 18858 MCV (RBC) [Entitic vol] 97 fL Normal 80-100 [facility] Comment on above: Performed By: #### 5 902-2 #### ESTELITA LARKIN ([id number]) [facility] ([facility]) [address] [place] [address] 68912 Nucleated RBC/100 WBC (Bld) [Ratio] 0.0 /100 WBCs Normal 0.0-0.0 [facility] Comment on above: Performed By: #### 5 902-2 #### ESTELITA LARKIN ([id number]) [facility] ([facility]) [address] [place] [address] Platelets (Bld) [#/Vol] 235 x10*3/uL Normal 150-450 [facility] Comment on above: Performed By: #### 5 902-2 #### ESTELITA LARKIN ([id number]) [facility] ([facility]) [address] [place] [address] RBC (Bld) [#/Vol] 4.15 x10*6/uL Low 4.50-5.90 [facility] Comment on above: Performed By: #### 5 902-2 #### AVTARIBKARI LARKIN ([id number]) [facility] ([facility]) [address] [place] [address] 43509 WBC (Bld) [#/Vol] 7.5 x10*3/uL Normal 4.4-11.3 [facility] Comment on above: Performed By: #### 5 902-2 #### ESTELITA LARKIN ([id number]) [facility] ([facility]) [address] [place] [address] 92969 FL FLUORO IMAGES NO CHARGEon 02-24-2024 FL FLUORO IMAGES NO CHARGE These images are not reportable by radiology and will not be interpreted by Radiologists. Normal [facility] OPERATIVE IMAGESon 4 OPERATIVE IMAGES Please see OpNote on Notes tab for findings. Normal [facility] Operative Imageson 4 Please see OpNote on Notes tab for findings. IMAGING Radiology Study observation (narrative) [facility] Work Phone: Operative ImagesOrdered By: Generic Uh Optime on 02-24-2024 [facility] SST TOPon 02-24-2024 Extra Tube Hold for add-ons. [facility] Comment on above: Auto resulted. [facility] XR tomography Unspecified shamika dy regionon 02-24-2024 These images are not reportable by radiology and will not be interpreted by Radiologists. IMAGING Bacteria identifiedon 2023 Bacteria identified Cx Nom (Unsp spec) Test: Tissue/Wound Culture/Smear Specimen Source: Wound/Tissue Specimen Type: Tissue/Biopsy Specimen Date: 02/23/202450 Result Date: 02/25/2024925 Result Status: Final result Abnormal: Yes Resulting Lab: [facility] [address] [place] [id number] CULTURE (4+) Abundant Methicillin Resistant Staphylococcus aureus [...] ug/ml Susceptible VANCOMYCIN 1.000 ug/ml Susceptible Abnormal [facility] Comment on above: Performed By: #### 5 902-2 #### ESTELITA LARKIN ([id number]) [facility] ([facility]) [address] [place] [address] 65733 ECG 12-LEADon 02-23-2024 ECG 12-LEAD Ventricular Rate 49 Atrial Rate 49 P-R Interval 156 QRS Duration 88 Q-T Interval 452 QTC Calculation(Bazett) 408 P [place] 38 R [place] 53 T [place] 48 QRS Count 8 Q Onset 224 P Onset 146 P Offset 202 T Offset 450 QTC Fredericia 422 Diagnosis Sinus bradycardia with sinus arrhythmia Otherwise normal ECG When compared with ECG of 16-OCT-2015 11:18, No significant change was found Confirmed by Kris Segovia ([id number]) on 02/27/2024 10:05:52 AM Normal [facility] Maddie Topon 02-23-2024 Extra Tube Hold for add-ons. [facility] Comment on above: Auto resulted. [facility] Vancomycinon 02-23-2024 Vancomycin [Mass/Vol] 7.9 ug/mL 5.0 - 20.0 ug/mL [facility] Vancomycin [Mass/Vol] 7.9 ug/mL Normal 5.0-20.0 [facility] Comment on above: Order Comment: Vanco mycin [...] By: #### 5 902-2 #### ESTELITA LARKIN ([id number]) [facility] ([facility]) [address] [place] [address] 88784 Vancomycin [Mass/Vol] 16.3 ug/mL 5.0 - 20.0 ug/mL [facility] Vancomycin [Mass/Vol] 16.3 ug/mL Normal 5.0-20.0 [facility] Comment on above: Order Comment: Vancomycin levels [...] By: #### 2 0578-1 #### ESTELITA LARKIN ([id number]) [facility] ([facility]) [address] [place] [address] 29720 Vancomycin [Mass/Vol]on 02-12 Interpretation and review of laboratory results [facility] Vancomycin levels can be monitored according [...] 30.0-40.0 ug/mL Trough (all ages): 10.0-20.0 ug/mL [facility] Interpretation and review of laboratory results [facility] Vancomycin levels can be monitored according [...] 30.0-40.0 ug/mL Trough (all ages): 10.0-20.0 ug/mL [facility] Bacteria identifiedon 2023 Bacteria identified Cx Nom (Bld) Test: Blood Culture Specimen Source: Peripheral Venipuncture Specimen Type: Blood culture Specimen Date: 02/22/20242035 Result Date: 02/27/2024301 Result Status: Final result Abnormal: No Resulting Lab: [facility] [address] [facility] [address] CULTURE No growth at 4 days - FINAL REPORT [facility] Comment on above: Performed By: #### 6 00-7 #### SERENE Sandra ([id number]) [facility] ([facility]) [address] [place] [address] Blood type and Indirect anti body screen panel (Bld)on 02-22-2024 ABO group Nom (Bld) A [facility] Blood group antibody screen Ql Negative [facility] D Ag Ql (Bld) Positive [facility] ABO group Nom (Bld) A [facility] Comment on above: Performed By: #### 3 4532-2 #### ESTELITA LARKIN ([id number]) [facility] ([employer] [address] [place] [address] Blood group antibody screen Ql Negative [facility] Comment on above: Performed By: #### 3 4532-2 #### ESTELITA LARKIN ([id number]) [facility] [address] [place] [address] D Ag Ql (Bld) Positive [facility] Comment on above: Performed By: #### 3 4532-2 #### ESTELITA LARKIN ([id number]) [facility] ([facility]) [address] [place] [address] C reactive proteinon 024 CRP [Mass/Vol] 1.16 mg/dL High <1.00 [facility] Comment on above: Performed By: #### 1 988-5 #### ESTELITA MCDANIEL RIO BANDAR ([id number]) [facility] ([facility]) [address] [place] [address] 74371 C-reactive proteinon 024 CRP [Mass/Vol] 1.16 mg/dL High NINF - 1.00 mg/dL [facility] CBC W Auto Differential pane l (Bld)on 02-22-2024 Basophils (Bld) [#/Vol] 0.05 10*3/uL [facility] Basophils/100 WBC (Bld) 0.4 % 0.0 - 2.0 % [facility] Eosinophils (Bld) [#/Vol] 0.21 10*3/uL [facility] Eosinophils/100 WBC (Bld) 1.6 % 0.0 - 6.0 % [facility] Erythrocyte distribution width (RBC) [Ratio] 11.7 % 11.5 - 14.5 % [facility] Hematocrit (Bld) [Volume fraction] 41.6 % 41.0 - 52.0 % [facility] Hemoglobin (Bld) [Mass/Vol] 14.3 g/dL 13.5 - 17.5 g/dL [facility] Immature granulocytes (Bld) [#/Vol] 0.06 10*3/uL [facility] Immature granulocytes/100 WBC (Bld) 0.5 % 0.0 - 0.9 % [facility] Comment on above: Immature Granulocyte Count (IG) includes promyelocytes, myelocytes and metamyelocytes but does not include bands. Percent differential counts (%) should be interpreted in the context of the absolute cell counts (cells/UL). Interpretation and review of laboratory results Abnormal [facility] Lymphocytes (Bld) [#/Vol] 2.31 10*3/uL [facility] Lymphocytes/100 WBC (Bld) 17.7 % 13.0 - 44.0 % [facility] MCH (RBC) [Entitic mass] 32.2 pg 26.0 - 34.0 pg [facility] MCHC (RBC) [Mass/Vol] 34.4 g/dL 32.0 - 36.0 g/dL [facility] MCV (RBC) [Entitic vol] 94 fL 80 - 100 fL [facility] Monocytes (Bld) [#/Vol] 0.95 10*3/uL [facility] Monocytes/100 WBC (Bld) 7.3 % 2.0 - 10.0 % [facility] Neutrophils (Bld) [#/Vol] 9.46 10*3/uL High [facility] Comment on above: Percent differential counts (%) should be interpreted in the context of the absolute cell counts (cells/uL). Neutrophils/100 WBC (Bld) 72.5 % 40.0 - 80.0 % [facility] Nucleated RBC/100 WBC (Bld) [Ratio] 0 % [facility] Platelets (Bld) [#/Vol] 262 10*3/uL [facility] RBC (Bld) [#/Vol] 4.44 10*6/uL Low [facility] WBC (Bld) [#/Vol] 13 10*3/uL High [facility] Basophils (Bld) [#/Vol] 0.05 x10*3/uL Normal 0.00-0.10 [facility] Comment on above: Performed By: #### 5 7021-8 #### ESTELITA LARKIN ([id number]) [facility] [address] [place] [address] 61167 Basophils/100 WBC (Bld) 0.4 % Normal 0.0-2.0 [facility] Comment on above: Performed By: #### 5 7021-8 #### ESTELITA LARKIN ([id number]) [facility] [address] [place] [address] 94729 Eosinophils (Bld) [#/Vol] 0.21 x10*3/uL Normal 0.00-0.70 [facility] Comment on above: Performed By: #### 5 7021-8 #### ESTELITA LARKIN ([id number]) [facility] [address] [place] [address] 18068 Eosinophils/100 WBC (Bld) 1.6 % Normal 0.0-6.0 [facility] Comment on above: Performed By: #### 5 7021-8 #### ESTELITA LARKIN ([id number]) [facility] [address] [place] [address] 38612 Erythrocyte distribution width (RBC) [Ratio] 11.7 % Normal 11.5-14.5 [facility] Comment on above: Performed By: #### 5 7021-8 #### ESTELITA LARKIN ([id number]) [facility] [address] [place] [address] 57801 Hematocrit (Bld) [Volume fraction] 41.6 % Normal 41.0-52.0 [facility] Comment on above: Performed By: #### 5 7021-8 #### ESTELITA LARKIN ([id number]) [facility] [address] [place] [address] 83223 Hemoglobin (Bld) [Mass/Vol] 14.3 g/dL Normal 13.5-17.5 [facility] Comment on above: Performed By: #### 5 7021-8 #### ESTELITA LARKIN ([id number]) [facility] [address] [place] [address] 64976 Immature granulocytes (Bld) [#/Vol] 0.06 x10*3/uL Normal 0.00-0.70 [facility] Comment on above: Performed By: #### 5 7021-8 #### ESTELITA LARKIN ([id number]) [facility] [address] [place] [address] 58385 Immature granulocytes/100 WBC (Bld) 0.5 % Normal 0.0-0.9 [facility] Comment on above: Result Comment: Tamiko ture Granulocyte Count (IG) includes promyelocytes, myelocytes and metamyelocytes but does not include bands. Percent differential counts (%) should be interpreted in the context of the absolute cell counts (cells/UL). Performed By: #### 5 7021-8 #### ESTELITA LARKIN ([id number]) [facility] [address] [place] [address] 75867 Lymphocytes (Bld) [#/Vol] 2.31 x10*3/uL Normal 1.20-4.80 [facility] Comment on above: Performed By: #### 5 7021-8 #### ESTELITA LARKIN ([id number]) [facility] [address] [place] [address] 54304 Lymphocytes/100 WBC (Bld) 17.7 % Normal 13.0-44.0 [facility] Comment on above: Performed By: #### 5 7021-8 #### ESTELITA LARKIN ([id number]) [facility] [address] [place] [address] MCH (RBC) [Entitic mass] 32.2 pg Normal 26.0-34.0 [facility] Comment on above: Performed By: #### 5 7021-8 #### ESTELITA LARKIN ([id number]) [facility] [address] [place] [address] MCHC (RBC) [Mass/Vol] 34.4 g/dL Normal 32.0-36.0 [facility] Comment on above: Performed By: #### 5 7021-8 #### ESTELITA LARKIN ([id number]) [facility] [address] [place] [address] MCV (RBC) [Entitic vol] 94 fL Normal 80-100 [facility] Comment on above: Performed By: #### 5 7021-8 #### ESTELITA LARKIN ([id number]) [facility] [address] [place] [address] Monocytes (Bld) [#/Vol] 0.95 x10*3/uL Normal 0.10-1.00 [facility] Comment on above: Performed By: #### 5 7021-8 #### ESTELITA LARKIN ([id number]) [facility] [address] [place] [address] 52605 Monocytes/100 WBC (Bld) 7.3 % Normal 2.0-10.0 [facility] Comment on above: Performed By: #### 5 7021-8 #### ESTELITA LARKIN ([id number]) [facility] [address] [place] [address] Neutrophils (Bld) [#/Vol] 9.46 x10*3/uL High 1.20-7.70 [facility] Comment on above: Result Comment: Perc ent differential counts (%) should be interpreted in the context of the absolute cell counts (cells/uL). Performed By: #### 5 7021-8 #### ESTELITA LARKIN ([id number]) [facility] [address] [place] [address] 74847 Neutrophils/100 WBC (Bld) 72.5 % Normal 40.0-80.0 [facility] Comment on above: Performed By: #### 5 7021-8 #### ESTELITA LARKIN ([id number]) [facility] [address] [place] [address] 34530 Nucleated RBC/100 WBC (Bld) [Ratio] 0.0 /100 WBCs Normal 0.0-0.0 [facility] Comment on above: Performed By: #### 5 7021-8 #### ESTELITA LARKIN ([id number]) [facility] [address] [place] [address] 25971 Platelets (Bld) [#/Vol] 262 x10*3/uL Normal 150-450 [facility] Comment on above: Performed By: #### 5 7021-8 #### ESTELITA LARKIN ([id number]) [facility] [address] [place] [address] 50235 RBC (Bld) [#/Vol] 4.44 x10*6/uL Low 4.50-5.90 [facility] Comment on above: Performed By: #### 5 7021-8 #### ESTELITA LARKIN ([id number]) [facility] [address] [place] [address] 85070 WBC (Bld) [#/Vol] 13.0 x10*3/uL High 4.4-11.3 [facility] Comment on above: Performed By: #### 5 7021-8 #### ESTELITA LARKIN ([id number]) [facility] [address] [place] [address] 09393 CRP [Mass/Vol]on 02-22-2024 Interpretation and review of laboratory results Abnormal [facility] CT CHEST W IV CONTRASTon CT CHEST W IV CONTRAST Interpreted By: Phillip Mojica, STUDY: CT CHEST W IV CONTRAST; 02/22/2024 10:18 pm INDICATION: Signs/Symptoms:multiple abscess to Left armpit. COMPARISON: None. ACCESSION NUMBER(S): [id number] ORDERING CLINICIAN: HALEY YATES TECHNIQUE: Contiguous axial [...] in 6 months to ensure stability. Camilo Henry et al. Guidelines for Management of Incidental [...] Fleischner Society 2017, Radiology. 2017 [place];284 (1):228-243.) [email or web address] Signed by: Phillip Mojica 02/22/2024 11:09 PM Dictation workstation: [id number] [facility] CT Chest W [...] chest in 6 months to ensure stability. Silvanahoportillo H, et al. Guidelines for Management of [...] Fleischner Society 2017, Radiology. 2017 [place];284 (1):228-243.) [email or web address] Signed by: Phillip Mojica 02/22/2024 11:09 PM Dictation workstation: [id number] [facility] MMODAL Interpreted By: Phillip Yeager, STUDY: CT CHEST W IV CONTRAST; 02/22/2024 10:18 pm INDICATION: Signs/Symptoms:multiple abscess to Left armpit. COMPARISON: None. ACCESSION NUMBER(S): [id number] ORDERING CLINICIAN: HALEY YATES TECHNIQUE: Contiguous axial [...] to Left armpit. COMPARISON: None. ACCESSION NUMBER(S): [id number] ORDERING CLINICIAN: HALEY YATES TECHNIQUE: Contiguous axial [...] Fleischner Society 2017, Radiology. 2017 [place];284 (1):228-243.) [email or web address] Signed by: Phillip Mojica 02/22/2024 11:09 PM Dictation workstation: [id number] [facility] Work Phone: Radiology Study observation (narrative) [facility] Work Phone: CT Chest W contrast IVOrdere d By: Phillip Mojica on 02-22-2024 [facility] Work Phone: Coagulation tissue factor in ducedon 02-22-2024 PT Coag (PPP) [Time] 12.7 s Normal 9.8-12.8 [facility] Comment on above: Performed By: #### 5 902-2 #### ESTELITA LARKIN ([id number]) [facility] [address] [place] [address] 03539 Comprehensive metabolic 2000 panelon 02-22-2024 Albumin BCP dye [Mass/Vol] 4.4 g/dL 3.4 - 5.0 g/dL [facility] ALP [Catalytic activity/Vol] 69 U/L 33 - 120 U/L [facility] ALT With P-5'-P [Catalytic activity/Vol] 15 U/L 10 - 52 U/L [facility] Comment on above: Patients treated wit h Sulfasalazine may generate falsely decreased results for ALT. Anion gap [Moles/Vol] 12 mmol/L 10 - 20 mmol/L [facility] AST With P-5'-P [Catalytic activity/Vol] 11 U/L 9 - 39 U/L [facility] Bilirubin [Mass/Vol] 0.4 mg/dL 0.0 - 1.2 mg/dL [facility] Calcium [Mass/Vol] 9.2 mg/dL 8.6 - 10. 3 mg/dL [facility] Chloride [Moles/Vol] 103 mmol/L 98 - 107 mmol/L [facility] CO2 [Moles/Vol] 27 mmol/L 21 - 32 mmol/L [facility] Creatinine [Mass/Vol] 1.04 mg/dL 0.50 - 1.30 mg/dL [facility] eGFR - PINF [facility] Comment on above: Calculations of katie mated GFR are performed using the 2020 CKD-EPI Study Refit equation without the race variable for the IDMS-Traceable creatinine methods. https://jasn.asnjournals.org/content//ASN.031334053 8 Glucose [Mass/Vol] 100 mg/dL High 74 - 99 mg/dL [facility] Interpretation and review of laboratory results Abnormal [facility] Potassium [Moles/Vol] 3.9 mmol/L 3.5 - 5.3 mmol/L [facility] Protein [Mass/Vol] 7.4 g/dL 6.4 - 8.2 g/dL [facility] Sodium [Moles/Vol] 138 mmol/L 136 - 145 mmol/L [facility] Urea nitrogen [Mass/Vol] 20 mg/dL 6 - 23 mg/dL [facility] Albumin BCP dye [Mass/Vol] 4.4 g/dL Normal 3.4-5.0 [facility] Comment on above: Performed By: #### 2 4323-8 #### ESTELITA LARKIN ([id number]) [facility] [address] [place] [address] 09957 ALP [Catalytic activity/Vol] 69 U/L Normal 33-120 [facility] Comment on above: Performed By: #### 2 4323-8 #### ESTELITA LARKIN ([id number]) [facility] [address] [place] [address] 38917 ALT With P-5'-P [Catalytic activity/Vol] 15 U/L Normal 10-52 [facility] Comment on above: Result Comment: Elvi ents treated with Sulfasalazine may generate falsely decreased results for ALT. Performed By: #### 2 4323-8 #### ESTELITA LARKIN ([id number]) [facility] [address] [place] [address] 37283 Anion gap [Moles/Vol] 12 mmol/L Normal 10-20 [facility] Comment on above: Performed By: #### 2 4323-8 #### ESTELITA LARKIN ([id number]) [facility] [address] [place] [address] 96535 AST With P-5'-P [Catalytic activity/Vol] 11 U/L Normal 9-39 [facility] Comment on above: Performed By: #### 2 4323-8 #### ESTELITA LARKIN ([id number]) [facility] [address] [place] [address] 32100 Bilirubin [Mass/Vol] 0.4 mg/dL Normal 0.0-1.2 [facility] Comment on above: Performed By: #### 2 4323-8 #### ESTELITA LARKIN ([id number]) [facility] [address] [place] [address] 52117 Calcium [Mass/Vol] 9.2 mg/dL Normal 8.6-10.3 [facility] Comment on above: Performed By: #### 2 4323-8 #### ESTELITA LARKIN ([id number]) [facility] [address] [place] [address] 61681 Chloride [Moles/Vol] 103 mmol/L Normal 98-107 [facility] Comment on above: Performed By: #### 2 4323-8 #### ESTELITA LARKIN ([id number]) [facility] [address] [place] [address] 37282 CO2 [Moles/Vol] 27 mmol/L Normal 21-[address] [facility] Comment on above: Performed By: #### 2 4323-8 #### ESTELITA LARKIN ([id number]) [facility] [address] [place] [address] 89009 Creatinine [Mass/Vol] 1.04 mg/dL Normal 0.50-1.30 [facility] Comment on above: Performed By: #### 2 4323-8 #### ESTELITA MCDANIEL RIO BANDAR ([id number]) [facility] [address] [place] [address] 48394 GFR/1.73 sq M.predicted MDRD (S/P/Bld) [Vol rate/Area] mL/min/{1.73_m2} Normal >60 [facility] Comment on above: Result Comment: Calc ulations of estimated GFR are performed using the 2020 CKD-EPI Study Refit equation without the race variable for the IDMS-Traceable creatinine methods. https://jasn.asnjournals.org/content//ASN.666905188 8 Performed By: #### 2 4323-8 #### ESTELITA LARKIN ([id number]) [facility] [address] [place] [address] 40130 Glucose [Mass/Vol] 100 mg/dL High 74-99 [facility] Comment on above: Performed By: #### 2 4323-8 #### ESTELITA LARKIN ([id number]) [facility] [address] [place] [address] 40439 Potassium [Moles/Vol] 3.9 mmol/L Normal 3.5-5.3 [facility] Comment on above: Performed By: #### 2 4323-8 #### ESTELITA LARKIN ([id number]) [facility] [address] [place] [address] 45779 Protein [Mass/Vol] 7.4 g/dL Normal 6.4-8.2 [facility] Comment on above: Performed By: #### 2 4323-8 #### ESTELITA LARKIN ([id number]) [facility] [address] [place] [address] 20278 Sodium [Moles/Vol] 138 mmol/L Normal 136-145 [facility] Comment on above: Performed By: #### 2 4323-8 #### ESTELITA LARKIN ([id number]) [facility] [address] [place] [address] 38258 Urea nitrogen [Mass/Vol] 20 mg/dL Normal 6-23 [facility] Comment on above: Performed By: #### 2 4323-8 #### ESTELITA MCDANIEL RIO BANDAR ([id number]) [facility] [address] [place] [address] 66027 ESR Westergren method (Bld) [Velocity]on 02-22-2024 ESR (Bld) [Velocity] 25 mm/h High 0 - 15 mm/h [facility] Interpretation and review of laboratory results Abnormal [facility] ESR (Bld) [Velocity] 25 mm/h High 0-15 [facility] Comment on above: Performed By: #### 4 537-7 #### ESTELITA LARKIN ([id number]) [facility] [address] [place] [address] 46810 PT Coag (PPP) [Time]on 02-21 INR Coag (PPP) [Relative time] 1.1 {INR} 0.9 - 1.1 [facility] Interpretation and review of laboratory results Normal [facility] INR Coag (PPP) [Relative time] 1.1 Normal 0.9-1.1 [facility] Comment on above: Performed By: #### 5 902-2 #### ESTELITA LARKIN ([id number]) [facility] [address] [place] [address] 38722 Protime-INRon 02-22-2024 PT Coag (PPP) [Time] 12.7 s [facility] SST TOPon 02-22-2024 Extra Tube Hold for add-ons. [facility] Comment on above: Auto resulted. [facility] MR CERVICAL SPINE WO IV CONT RASTon 02-17-2024 MR CERVICAL SPINE WO IV CONTRAST Interpreted By: Luana Lawson and Lawrence Austen STUDY: MR CERVICAL SPINE WO IV CONTRAST; MR LUMBAR SPINE W AND WO IV CONTRAST; MR THORACIC SPINE WO IV CONTRAST; 02/17/2024 7:08 pm; 02/17/2024 7:09 pm INDICATION: Signs/Symptoms:pain. ,M54.10 Radiculopathy, site unspecified COMPARISON: Radiograph 10/19/2017, MRI 08/17/2016. ACCESSION NUMBER(S): [id number]; [id number]; [id number] ORDERING CLINICIAN: SHA FOSTER TECHNIQUE: Sagittal T1, [...] and bilateral C6- (more content not included)... [facility] Comment on above: Order Comment: [facility] [...] COMPARISON: Radiograph 10/19/2017, MRI 08/17/2016. ACCESSION NUMBER(S): [id number]; [id number]; [id number] ORDERING CLINICIAN: SHA FOSTER TECHNIQUE: Sagittal T1, [...] and bilateral C6- (more content not included)... [facility] Comment on above: Order Comment: QUINTIN TOLEDO MR THORACIC SPINE WO IV CONT [facility] 12-05-2024 MR THORACIC SPINE WO IV CONTRAST Interpreted By: Luana Lawson and Lawrence Austen STUDY: MR CERVICAL SPINE WO IV CONTRAST; MR LUMBAR SPINE W AND WO IV CONTRAST; MR THORACIC SPINE WO IV CONTRAST; 02/17/2024 7:08 pm; 02/17/2024 7:09 pm INDICATION: Signs/Symptoms:pain. ,M54.10 Radiculopathy, site unspecified COMPARISON: Radiograph 10/19/2017, MRI 08/17/2016. ACCESSION NUMBER(S): [id number]; [id number]; [id number] ORDERING CLINICIAN: SHA FOSTER TECHNIQUE: Sagittal T1, [...] and bilateral C6- (more content not included)... Normal [facility] Comment on above: Order Comment: [facility] yria C-Reactive Proteinon 024 CRP High sensitivity method [Mass/Vol] mg/L 0.0 - 5.0 mg/L [facility] CRP [Mass/Vol] mg/L Normal 0.0-5.0 [facility] Comment on above: Performed By: #### C RP #### [facility] [address] [place] [address] CBC W Auto Differential pane l (Bld)on 01-29-2024 Interpretation and review of laboratory results Abnormal [facility] MCHC (RBC) [Mass/Vol] 34.2 % 33.0 - 37.0 % [facility] Segmented neutrophils/100 WBC (Bld) 60.7 % [facility] CBC With Platelet and Differ entialon 01-29-2024 Basophils (Bld) [#/Vol] 0.1 10*3/uL Normal 0.0-0.2 [facility] Comment on above: Performed By: #### C BCWD #### [facility] [address] [place] [address] Basophils/100 WBC (Bld) 0.5 % Normal [facility] Comment on above: Performed By: #### C BCWD #### [facility] [address] [place] [address] Eosinophils (Bld) [#/Vol] 0.5 10*3/uL Normal 0.0-0.7 [facility] Comment on above: Performed By: #### C BCWD #### [facility] [address] [place] [address] Eosinophils/100 WBC (Bld) 4.8 % Normal [facility] Comment on above: Performed By: #### C BCWD #### [facility] [address] [place] [address] Erythrocyte distribution width (RBC) [Ratio] 12.6 % Normal 11.5-14.5 [facility] Comment on above: Performed By: #### C BCWD #### [facility] [address] [place] [address] Hematocrit (Bld) [Volume fraction] 43.8 % Normal 42.0-52.0 [facility] Comment on above: Performed By: #### C BCWD #### [facility] [address] [place] [address] Hemoglobin (Bld) [Mass/Vol] 15.0 g/dL Normal 14.0-18.0 [facility] Comment on above: Performed By: #### C BCWD #### [facility] [address] [place] [address] Lymphocytes (Bld) [#/Vol] 2.4 10*3/uL Normal 1.0-4.8 [facility] Comment on above: Performed By: #### C BCWD #### [facility] [address] [place] [address] Lymphocytes/100 WBC (Bld) 24.9 % Normal [facility] Comment on above: Performed By: #### C BCWD #### [facility] [address] [place] [address] MCH (RBC) [Entitic mass] 32.7 pg Critically high 27.0-31.3 [facility] Comment on above: Performed By: #### C BCWD #### [facility] [address] [place] [address] MCHC 34.2 % Normal 33.0-37.0 [facility] Comment on above: Performed By: #### C BCWD #### [facility] [address] [place] [address] MCV (RBC) [Entitic vol] 95.4 fL Critically high 79.0-92.2 [facility] Comment on above: Performed By: #### C BCWD #### [facility] [address] [place] [address] Monocytes (Bld) [#/Vol] 0.9 10*3/uL Critically high 0.2-0.8 [facility] Comment on above: Performed By: #### C BCWD #### [facility] [address] [place] [address] Monocytes/100 WBC (Bld) 8.8 % Normal [facility] Comment on above: Performed By: #### C BCWD #### [facility] [address] [place] [address] Neutrophils (Bld) [#/Vol] 5.9 10*3/uL Normal 1.4-6.5 [facility] Comment on above: Performed By: #### C BCWD #### [facility] [address] [facility] [place] [address] Neutrophils/100 WBC (Bld) 60.7 % Normal [facility] Comment on above: Performed By: #### C BCWD #### [facility] [address] [place] [address] Platelets (Bld) [#/Vol] 316 10*3/uL Normal 130-400 [facility] Comment on above: Performed By: #### C BCWD #### [facility] [address] [facility] [place] [address] RBC (Bld) [#/Vol] 4.59 10*6/uL Low 4.70-6.10 [facility] Comment on above: Performed By: #### C BCWD #### [facility] [address] [place] [address] WBC (Bld) [#/Vol] 9.6 10*3/uL Normal 4.8-10.8 [facility] Comment on above: Performed By: #### C BCWD #### [facility] [address] [place] [address] CRP High sensitivity method [Mass/Vol]on 01-29-2024 [facility] Comprehensive Metabolic Pane ashok 01-29-2024 Albumin [Mass/Vol] 3.9 g/dL Normal 3.5-4.6 [facility] Comment on above: Performed By: #### C MP #### [facility] [address] [place] [address] ALP [Catalytic activity/Vol] 62 U/L Normal 35-104 [facility] Comment on above: Performed By: #### C MP #### [facility] [address] [place] [address] ALT [Catalytic activity/Vol] 9 U/L Normal 0-41 [facility] Comment on above: Performed By: #### C MP #### [facility] [address] [place] [address] Anion gap [Moles/Vol] 8 mmol/L Low 9-15 [facility] Comment on above: Performed By: #### C MP #### [facility] [address] [place] [address] AST [Catalytic activity/Vol] 9 U/L Normal 0-40 [facility] Comment on above: Performed By: #### C MP #### [facility] [address] [place] [address] Bilirubin [Mass/Vol] mg/dL Normal 0.2-0.7 [facility] Comment on above: Performed By: #### C MP #### [facility] [address] [place] [address] Calcium [Mass/Vol] 8.8 mg/dL Normal 8.5-9.9 [facility] Comment on above: Performed By: #### C MP #### [facility] [address] [place] [address] Chloride [Moles/Vol] 105 mmol/L Normal 95-107 [facility] Comment on above: Performed By: #### C MP #### [facility] [address] [place] [address] CO2 [Moles/Vol] 27 mmol/L Normal 20-31 [facility] Comment on above: Performed By: #### C MP #### [facility] [address] [place] [address] Creatinine [Mass/Vol] 1.15 mg/dL Normal 0.70-1.20 [facility] Comment on above: Performed By: #### C MP #### [facility] [address] [place] [address] GFR 81.3 Normal >60 [facility] Comment on above: Result Comment: Abbie atric [...] secretion. Performed By: #### C MP #### [facility] [address] [place] [address] Globulin (S) [Mass/Vol] 2.7 g/dL Normal 2.3-3.5 [facility] Comment on above: Performed By: #### C MP #### [facility] [address] [place] [address] Glucose [Mass/Vol] 85 mg/dL Normal 70-99 [facility] Comment on above: Performed By: #### C MP #### [facility] [address] [place] [address] Potassium [Moles/Vol] 4.0 mmol/L Normal 3.4-4.9 [facility] Comment on above: Performed By: #### C MP #### [facility] [address] [place] [address] Protein [Mass/Vol] 6.6 g/dL Normal 6.3-8.0 [facility] Comment on above: Performed By: #### C MP #### [facility] [address] [place] [address] Sodium [Moles/Vol] 140 mmol/L Normal 135-144 [facility] Comment on above: Performed By: #### C MP #### [facility] [address] [place] [address] Urea nitrogen [Mass/Vol] 20 mg/dL Normal 6-20 [facility] Comment on above: Performed By: #### C MP #### [facility] [address] [place] [address] Comprehensive metabolic 2000 panelon 01-29-2024 Albumin [Mass/Vol] 3.9 g/dL 3.5 - 4.6 g/dL [facility] [facility] ALP [Catalytic activity/Vol] 62 U/L 35 - 104 U/L [facility] ALT [Catalytic activity/Vol] 9 U/L 0 - 41 U/L [facility] Anion gap [Moles/Vol] 8 mmol/L Low [facility] AST [Catalytic activity/Vol] 9 U/L 0 - 40 U/L [facility] Bilirubin [Mass/Vol] mg/dL 0.2 - 0.7 mg/dL [facility] Calcium [Mass/Vol] 8.8 mg/dL 8.5 - 9.9 mg/dL [facility] Chloride [Moles/Vol] 105 mmol/L [facility] CO2 [Moles/Vol] 27 mmol/L [facility] Creatinine [Mass/Vol] 1.15 mg/dL 0.70 - 1.20 mg/dL [facility] GFR/1.73 sq M.predicted among non-blacks MDRD (S/P/Bld) [Vol rate/Area] 81.3 mL/min/{1.73_m2} 60 - PINF [facility] Comment on above: Pediatric calculator link [...] [Mass/Vol] 2.7 g/dL 2.3 - 3.5 g/dL [facility] Glucose [Mass/Vol] 85 mg/dL 70 - 99 mg/dL [facility] Interpretation and review of laboratory results Abnormal [facility] Potassium [Moles/Vol] 4.0 mmol/L [facility] Protein [Mass/Vol] 6.6 g/dL 6.3 - 8.0 g/dL [facility] Sodium [Moles/Vol] 140 mmol/L [facility] Urea nitrogen [Mass/Vol] 20 mg/dL 6 - 20 mg/dL [facility] ESR Westergren method (Bld) [Velocity]on 01-29-2024 ESR (Bld) [Velocity] 7 mm 0 - 10 mm [facility] Comment on above: ESR Units mm/Hr [facility] Sedimentation Rateon 024 Sedimentation Rate 7 mm Normal 0-10 [facility] Comment on above: Result Comment: ESR Units mm/Hr Performed By: #### E SR #### [facility] [address] [place] [id number] Urinalysis with Reflex to Cu ltureon 01-29-2024 Glucose Test strip (U) [Mass/Vol] Negative Negative mg/dL [facility] Interpretation and review of laboratory results Abnormal [facility] Ketones (U) [Mass/Vol] Negative Negative mg/dL [facility] Protein (U) [Mass/Vol] Negative Negative mg/dL [facility] Urine Reflex to Culture Not Indicated [facility] Urobilinogen Qn (U) 0.2 NINF [facility] Urinalysis, reflex to cultur stephen 01-29-2024 Bilirubin Ql (U) Negative Normal Negative [facility] Comment on above: Performed By: #### U AR #### [facility] [address] [place] [address] Clarity (U) TURBID Abnormal Clear [facility] Comment on above: Performed By: #### U AR #### [facility] [address] [place] [address] Color (U) Yellow Normal Straw/Glades [facility] Comment on above: Performed By: #### U AR #### [facility] [address] [place] [address] Glucose Ql (U) Negative Normal Negative [facility] Comment on above: Performed By: #### U AR #### [facility] [address] [place] [address] Hemoglobin Ql (U) Negative Normal Negative [facility] Comment on above: Performed By: #### U AR #### [facility] [address] [place] [address] Ketones Ql (U) Negative Normal Negative [facility] Comment on above: Performed By: #### U AR #### [facility] [address] [place] [address] Leukocyte esterase Test strip Ql (U) Negative Normal Negative [facility] Comment on above: Performed By: #### U AR #### [facility] [address] [place] [address] Nitrite Ql (U) Negative Normal Negative [facility] [employer] Comment on above: Performed By: #### U AR #### [facility] [address] [place] [address] pH (U) 7.0 [pH] Normal 5.0-9.0 [facility] Comment on above: Performed By: #### U AR #### [facility] [address] [place] [address] Protein Ql (U) Negative Normal Negative [facility] Comment on above: Performed By: #### U AR #### [facility] [address] [place] [address] Specific gravity (U) [Rel density] 1.022 Normal 1.005-1.03 [facility] Comment on above: Performed By: #### U AR #### [facility] [address] [place] [address] Urine Reflexed to Culture Not Indicated Normal [facility] Comment on above: Performed By: #### U AR #### [facility] [address] [place] [address] Urobilinogen Qn (U) 0.2 {Bassam'U}/dL Normal < 2.0 [facility] Comment on above: Performed By: #### U AR #### [facility] [address] [place] [address] Emergency Department Summary on 01-20-2024 Emergency Department Summary [facility] Medical Records Department [address] [place] [address] Emergency Department Summary 01/20/24 MR#: [id number] Acct: [id number] Name: HARMAN JAMIL Rep #: [id number] : 1980 43 From: Kehinde Cota DO PCP: Dr. Josafat Tinoco DO Status:REG ER Location: ED ADDENDUM by [...] has a spine surgeon and [facility] [place] in [place]. Patient states he will make an appoint with them for next week. Patient was instructed to return if worse in any way. Patient understood and was agreeable with plan. All questions were answered. 01/20/24 1741 Cosigner Signature (if applicable): cc: Dr. Josafat Tinoco, * Signed HPI History of Present Illness Chief Complaint: Lower Extremity [facility] Medical History ADHD Sciatica Cervical radiculopathy Home [...] pulsatile ab (more content not included)... Normal [facility] Spine Lumbar (Routine)on Spine Lumbar (Routine) [facility] Imaging Services [address] [place] [id number] Spine Lumbar (Routine) MR#: [id number] Acct: [id number] Name: HARMAN JAMIL Rep #: [id number] : 1980 M 43 From: Tee Brand MD PCP: Dr. Josafat Tinoco, DO Status: REG ER Study: Spine Lumbar (Routine) Date of Exam: 01/20/24 Exam# [id number] Ordering Dr: Kehinde Cota DO [id number] STUDY: MRI LUMBAR SPINE WITHOUT CONTRAST REASON [...] Signed: Tee Brand MD at 16:47 EST , CC: Dr. Josafat Tinoco DO; Dr. Kehinde Cota DO Button Sewer: Signed Normal [facility] Emergency Department Summary on 01-12-2024 Emergency Department Summary [facility] Medical Records Department [address] [place] [address] Emergency Department Summary 01/12/24 MR#: [id number] Acct: [id number] Name: HARMAN JAMIL Rep #: [id number] : 1980 43 From: Raghu Sadler DO PCP: Dr. Josafat Tinoco DO Status:DEP ER Location: ED HPI History [...] Negative for Weakness or Loss of Funtion [facility] Medical History ADHD Sciatica Cervical radiculopathy Home [...] x3, CN' (more content not included)... Normal [facility] Pelvis without IV Contraston 01-12-2024 Pelvis without IV Contrast [facility] Imaging Services [address] [place], [place] [id number] Pelvis without IV Contrast MR#: [id number] Acct: [id number] Name: HARMAN JAMIL Rep #: [id number] : 1980 M 43 From: Nia Barriga MD PCP: Dr. Josafat Tinoco DO Status: REG ER Study: Pelvis without IV Contrast Date of Exam: 01/11 Exam# [id number] Ordering Dr: Raghu Sadler DO [id number] INDICATION: Hip pain EXAMINATION: CT PELVIS BONE [...] CC: Dr. Raghu Sadler DO; Dr. Josafat Tinoco DO Button Sewer: Signed Normal [facility] Spine Lumbar without Contras ton 01-12-2024 Spine Lumbar without Contrast [facility] Imaging Services [address] [place] [address] Spine Lumbar without Contrast MR#: [id number] Acct: [id number] Name: HARMAN JAMIL Rep #: [id number] : 1980 M 43 From: Nia Barriga MD PCP: Dr. Josafat Tinoco DO Status: REG ER Study: Spine Lumbar without Contrast Date of Exam: Exam# [id number] Ordering Dr: Raghu Sadler DO [id number] INDICATION: Back pain EXAMINATION: CT LUMBAR SPINE [...] CC: Dr. Raghu Sadler, DO; Dr. Josafat Tinoco DO Button Sewer: Signed Normal [facility] Basic Metabolic Profile (BMP )on 01-04-2024 BUN/CRE 13.9 RATIO Normal 01-01 [facility] Comment on above: Performed By: #### L 501.6710, L500.2500, L100.0100, L101.9900, L503.6005, L501.5200 ####[facility] [address] [place], [address] CA,Total 9.4 mg/dL Normal 8.5-10.1 [facility] Comment on above: Performed By: #### L 501.6710, L500.2500, L100.0100, L101.9900, L503.6005, L501.5200 ####[facility] [address] [place], [address] Chloride [Moles/Vol] 99 mmol/L Normal 98-107 [facility] Comment on above: Performed By: #### L 501.6710, L500.2500, L100.0100, L101.9900, L503.6005, L501.5200 ####[facility] [address] [place], [address] CO2 [Moles/Vol] 32.0 mmol/L Normal 21.0-32.0 [facility] Comment on above: Performed By: #### L 501.6710, L500.2500, L100.0100, L101.9900, L503.6005, L501.5200 ####[facility] [address] [place], [address] Creatinine [Mass/Vol] 1.08 mg/dL Normal 0.70-1.30 [facility] Comment on above: Result Comment: The validity of the calculated GFR GFRAA in patients over 70 years has not been determined. Clinical correlation is essential. Performed By: #### L 501.6710, L500.2500, L100.0100, L101.9900, L503.6005, L501.5200 ####[facility] [address] [place], [address] ECRCL 100.70 ml/min Normal [facility] Comment on above: Performed By: #### L 501.6710, L500.2500, L100.0100, L101.9900, L503.6005, L501.5200 ####[facility] [address] [place], [address] EST GFR - AA 96 mL/min Normal >60 [facility] Comment on above: Result Comment: Afri can [place] GFR Calc Performed By: #### L 501.6710, L500.2500, L100.0100, L101.9900, L503.6005, L501.5200 ####[facility] [address] [place], [address] GAP 4 Low 5-15 [facility] Comment on above: Performed By: #### L 501.6710, L500.2500, L100.0100, L101.9900, L503.6005, L501.5200 ####[facility] [address] [place], [address] GFR/1.73 sq M.predicted among non-blacks MDRD (S/P/Bld) [Vol rate/Area] 80 mL/min/{1.73_m2} Normal >60 [facility] Comment on above: Result Comment: Non- GFR Calc Performed By: #### L 501.6710, L500.2500, L100.0100, L101.9900, L503.6005, L501.5200 ####[facility] [address] [place], [address] Glucose [Mass/Vol] 109 mg/dL High 74-106 [facility] Comment on above: Result Comment: Fast ing Glucose result from 100 to 125 mg/dL suggests IMPAIRED HOMEOSTASIS per A.D.A. criteria. Performed By: #### L 501.6710, L500.2500, L100.0100, L101.9900, L503.6005, L501.5200 ####[facility] [address] [place], [address] Potassium [Moles/Vol] 3.8 mmol/L Normal 3.5-5.1 [facility] Comment on above: Performed By: #### L 501.6710, L500.2500, L100.0100, L101.9900, L503.6005, L501.5200 ####[facility] [address] [place], [address] Sodium [Moles/Vol] 136 mmol/L Normal 136-145 [facility] Comment on above: Performed By: #### L 501.6710, L500.2500, L100.0100, L101.9900, L503.6005, L501.5200 ####[facility] [address] [place], [address] Urea nitrogen [Mass/Vol] 15 mg/dL Normal 7-18 [facility] Comment on above: Performed By: #### L 501.6710, L500.2500, L100.0100, L101.9900, L503.6005, L501.5200 ####[facility] [address] [place], [address] CBC W/Diff, Automatedon 10-2 Absolute Lymph 2.65 X10 3/uL Normal 0.83-4.51 [facility] Comment on above: Performed By: #### L 501.6710, L500.2500, L100.0100, L101.9900, L503.6005, L501.5200 #### [facility] [address] [place], [address] Absolute Neut 8.9 X10 3/uL High 2.0-7.7 [facility] Comment on above: Performed By: #### L 501.6710, L500.2500, L100.0100, L101.9900, L503.6005, L501.5200 #### [facility] [address] [place], [address] Basophils/100 WBC (Bld) 0.4 % Normal 0-1 [facility] Comment on above: Performed By: #### L 501.6710, L500.2500, L100.0100, L101.9900, L503.6005, L501.5200 #### [facility] [address] [place], [address] Eosinophils/100 WBC (Bld) 3.2 % Normal 0-5 [facility] Comment on above: Performed By: #### L 501.6710, L500.2500, L100.0100, L101.9900, L503.6005, L501.5200 #### [facility] [address] [place], [address] Erythrocyte distribution width (RBC) [Ratio] 11.7 % Normal 11.6-14.6 [facility] Comment on above: Performed By: #### L 501.6710, L500.2500, L100.0100, L101.9900, L503.6005, L501.5200 #### [facility] [address] [place], [address] Hematocrit (Bld) [Volume fraction] 40.6 % Normal 40-54 [facility] Comment on above: Performed By: #### L 501.6710, L500.2500, L100.0100, L101.9900, L503.6005, L501.5200 #### [facility] [address] [place], [address] Hemoglobin (Bld) [Mass/Vol] 13.9 g/dL Normal 13.0-16.5 [facility] Comment on above: Performed By: #### L 501.6710, L500.2500, L100.0100, L101.9900, L503.6005, L501.5200 #### [facility] [address] [place], [address] IG% 0.400 Normal 0.0-0.9 [facility] Comment on above: Result Comment: IG% - Immature Granulocytes (promyelocytes, myelocytes and metamyelocytes) > 1% indicates that a LEFT SHIFT is Present. Performed By: #### L 501.6710, L500.2500, L100.0100, L101.9900, L503.6005, L501.5200 #### [facility] [address] [place], [address] Lymphocytes/100 WBC (Bld) 19.6 % Normal 19-41 [facility] Comment on above: Performed By: #### L 501.6710, L500.2500, L100.0100, L101.9900, L503.6005, L501.5200 #### [facility] [address] [place], [address] MCH (RBC) [Entitic mass] 32.0 pg Normal 27.0-32.0 [facility] Comment on above: Performed By: #### L 501.6710, L500.2500, L100.0100, L101.9900, L503.6005, L501.5200 #### [facility] [address] [place], [address] MCHC (RBC) [Mass/Vol] 34.2 g/dL Normal 32-36 [facility] Comment on above: Performed By: #### L 501.6710, L500.2500, L100.0100, L101.9900, L503.6005, L501.5200 #### [facility] [address] [place], [address] MCV (RBC) [Entitic vol] 93.5 fL Normal 80-94 [facility] Comment on above: Performed By: #### L 501.6710, L500.2500, L100.0100, L101.9900, L503.6005, L501.5200 #### [facility] [address] [place], [address] Monocytes/100 WBC (Bld) 10.3 % High 0-10 [facility] Comment on above: Performed By: #### L 501.6710, L500.2500, L100.0100, L101.9900, L503.6005, L501.5200 #### [facility] [address] [place], [address] Neutrophils/100 WBC (Bld) 66.1 % Normal 47-70 [facility] Comment on above: Performed By: #### L 501.6710, L500.2500, L100.0100, L101.9900, L503.6005, L501.5200 #### [facility] [address] [place], [address] Nucleated RBC (Bld) [#/Vol] 0 10*3/uL Normal 0-5 [facility] Comment on above: Performed By: #### L 501.6710, L500.2500, L100.0100, L101.9900, L503.6005, L501.5200 #### [facility] [address] [place], [address] Platelet mean volume (Bld) [Entitic vol] 11.9 fL Normal 6.2-12.0 [facility] Comment on above: Performed By: #### L 501.6710, L500.2500, L100.0100, L101.9900, L503.6005, L501.5200 #### [facility] [address] [place], [address] Platelets (Bld) [#/Vol] 235 10*3/uL Normal 150-450 [facility] Comment on above: Performed By: #### L 501.6710, L500.2500, L100.0100, L101.9900, L503.6005, L501.5200 #### [facility] [address] [place], [address] RBC (Bld) [#/Vol] 4.34 10*6/uL Low 4.6-6.2 [facility] Comment on above: Performed By: #### L 501.6710, L500.2500, L100.0100, L101.9900, L503.6005, L501.5200 #### [facility] [address] [place], [address] RDW SD 40.2 fl Normal 35.1-43.9 [facility] Comment on above: Performed By: #### L 501.6710, L500.2500, L100.0100, L101.9900, L503.6005, L501.5200 #### [facility] [address] [place], [address] WBC (Bld) [#/Vol] 13.5 10*3/uL High 4.4-11.0 [facility] Comment on above: Performed By: #### L 501.6710, L500.2500, L100.0100, L101.9900, L503.6005, L501.5200 #### [facility] [address] [place], [address] CRPon 01-04-2024 C-REACTIVE PROT 7.22 mg/L High 0.0-3.0 [facility] Comment on above: Result Comment: C-Re active Protein (CRP) provides useful information for the diagnosis, therapy and monitoring of inflammatory processes and associated diseases. For the evaluation of Relative Risk for Cardiovascular Disease, a High Sensitivity CRP (HSCRP) should be ordered. Performed By: #### L 501.6710, L500.2500, L100.0100, L101.9900, L503.6005, L501.5200 ####[facility] [address] [place], [address] Emergency Department Summary on 01-04-2024 Emergency Department Summary [facility] Medical Records Department [address] [place] [address] Emergency Department Summary 01/04/24 MR#: [id number] Acct: [id number] Name: HARMAN JAMIL Rep #: [id number] : 1980 43 From: Demetrius Andrew DO PCP: Dr. Josafat Tinoco DO Status:DEP ER Location: ED HPI History [...] sleeping and with this presents for evaluation [facility] Medical History ADHD Cervical radiculopathy Sciatica Home [...] for developi (more content not included)... Normal [facility] Erythrocyte Sed Rateon 01-03 SED RATE 5 mm/hr Normal 0-20 [facility] Comment on above: Performed By: #### L 501.6710, L500.2500, L100.0100, L101.9900, L503.6005, L501.5200 #### [facility] [address] [place], [place], [address] Lactic Acidon 01-04-2024 Lactate [Moles/Vol] 1.2 mmol/L Normal 0.4-1.9 [facility] Comment on above: Order Comment: Y Performed By: #### L 501.6710, L500.2500, L100.0100, L101.9900, L503.6005, L501.5200 #### [facility] [address] [place], [place], [address] Magnesiumon 01-04-2024 Magnesium [Mass/Vol] 2.3 mg/dL Normal 1.6-2.6 [facility] Comment on above: Performed By: #### L 501.6710, L500.2500, L100.0100, L101.9900, L503.6005, L501.5200 ####[facility] [address] [place], [place], [address] XR LUMBAR SPINE (2-3 VIEWS)o n 11-14-2023 [...] Kevin Alexander DO 11/14/23 Final result Normal [facility] CBC With Platelet and Differ entialon 08-28-2023 Basophils (Bld) [#/Vol] 0.1 10*3/uL Normal 0.0-0.2 [facility] Comment on above: Performed By: #### C BCWD #### [facility] [address] [place] [address] Basophils/100 WBC (Bld) 0.5 % Normal [facility] Comment on above: Performed By: #### C BCWD #### [facility] [address] [place] [address] Eosinophils (Bld) [#/Vol] 0.3 10*3/uL Normal 0.0-0.7 [facility] Comment on above: Performed By: #### C BCWD #### [facility] [address] [place] [address] Eosinophils/100 WBC (Bld) 2.7 % Normal [facility] Comment on above: Performed By: #### C BCWD #### [facility] [address] [place] [address] Erythrocyte distribution width (RBC) [Ratio] 11.7 % Normal 11.5-14.5 [facility] Comment on above: Performed By: #### C BCWD #### [facility] [address] [place] [address] Hematocrit (Bld) [Volume fraction] 41.5 % Low 42.0-52.0 [facility] Comment on above: Performed By: #### C BCWD #### [facility] [address] [place] [address] Hemoglobin (Bld) [Mass/Vol] 14.2 g/dL Normal 14.0-18.0 [facility] Comment on above: Performed By: #### C BCWD #### [facility] [address] [place] [address] Lymphocytes (Bld) [#/Vol] 3.1 10*3/uL Normal 1.0-4.8 [facility] Comment on above: Performed By: #### C BCWD #### [facility] [address] [place] [address] Lymphocytes/100 WBC (Bld) 28.7 % Normal [facility] Comment on above: Performed By: #### C BCWD #### [facility] [address] [place] [address] MCH (RBC) [Entitic mass] 32.0 pg Critically high 27.0-31.3 [facility] Comment on above: Performed By: #### C BCWD #### [facility] [address] [place] [address] MCHC 34.2 % Normal 33.0-37.0 [facility] Comment on above: Performed By: #### C BCWD #### [facility] [address] [place] [address] MCV (RBC) [Entitic vol] 93.5 fL Critically high 79.0-92.2 [facility] Comment on above: Performed By: #### C BCWD #### [facility] [address] [place] [address] Monocytes (Bld) [#/Vol] 1.0 10*3/uL Critically high 0.2-0.8 [facility] Comment on above: Performed By: #### C BCWD #### [facility] [address] [place] [address] Monocytes/100 WBC (Bld) 9.5 % Normal [facility] Comment on above: Performed By: #### C BCWD #### [facility] [address] [place] [address] Neutrophils (Bld) [#/Vol] 6.4 10*3/uL Normal 1.4-6.5 [facility] Comment on above: Performed By: #### C BCWD #### [facility] [address] [place] [address] Neutrophils/100 WBC (Bld) 58.3 % Normal [facility] Comment on above: Performed By: #### C BCWD #### [facility] [address] [place] [address] Platelets (Bld) [#/Vol] 223 10*3/uL Normal 130-400 [facility] Comment on above: Performed By: #### C BCWD #### [facility] [address] [place] [address] RBC (Bld) [#/Vol] 4.44 10*6/uL Low 4.70-6.10 [facility] Comment on above: Performed By: #### C BCWD #### [facility] [address] [place] [address] WBC (Bld) [#/Vol] 10.9 10*3/uL Critically high 4.8-10.8 [facility] Comment on above: Performed By: #### C BCWD #### [facility] [address] [place] [address] CT CERVICAL SPINE WO CONTRAS Ton 08-28-2023 [...] Kevin Alexander DO 08/28/23 Final result Normal [facility] CT LUMBAR SPINE WO CONTRASTo n 08-28-2023 [...] Kevin Alexander DO 08/28/23 Final result Normal [facility] CT THORACIC SPINE WO CONTRAS Ton 08-28-2023 [...] Kevin Alexander DO 08/28/23 Final result Normal [facility] Comprehensive Metabolic Pane ashok 08-28-2023 Albumin [Mass/Vol] 4.6 g/dL Normal 3.5-4.6 [facility] Comment on above: Performed By: #### C MP #### [facility] [address] [place] [address] ALP [Catalytic activity/Vol] 70 U/L Normal 35-104 [facility] Comment on above: Performed By: #### C MP #### [facility] [address] [place] [address] ALT [Catalytic activity/Vol] 13 U/L Normal 0-41 [facility] Comment on above: Performed By: #### C MP #### [facility] [address] [place] [address] Anion gap [Moles/Vol] 11 mmol/L Normal 9-15 [facility] Comment on above: Performed By: #### C MP #### [facility] [address] [place] [address] AST [Catalytic activity/Vol] 13 U/L Normal 0-40 [facility] Comment on above: Performed By: #### C MP #### [facility] [address] [place] [address] Bilirubin [Mass/Vol] mg/dL Normal 0.2-0.7 [facility] Comment on above: Performed By: #### C MP #### [facility] [address] [place] [address] Calcium [Mass/Vol] 9.2 mg/dL Normal 8.5-9.9 [facility] Comment on above: Performed By: #### C MP #### [facility] [address] [place] [address] Chloride [Moles/Vol] 105 mmol/L Normal 95-107 [facility] Comment on above: Performed By: #### C MP #### [facility] [address] [place] [address] CO2 [Moles/Vol] 25 mmol/L Normal 20-31 [facility] Comment on above: Performed By: #### C MP #### [facility] [address] [place] [address] Creatinine [Mass/Vol] 1.15 mg/dL Normal 0.70-1.20 [facility] Comment on above: Performed By: #### C MP #### [facility] [address] [place] [address] GFR 81.5 Normal >60 [facility] Comment on above: Result Comment: Pedi atric [...] secretion. Performed By: #### C MP #### [facility] [address] [place] [address] Globulin (S) [Mass/Vol] 2.9 g/dL Normal 2.3-3.5 [facility] Comment on above: Performed By: #### C MP #### [facility] [address] [place] [address] Glucose [Mass/Vol] 97 mg/dL Normal 70-99 [facility] Comment on above: Performed By: #### C MP #### [facility] [address] [place] [address] Potassium [Moles/Vol] 3.6 mmol/L Normal 3.4-4.9 [facility] Comment on above: Performed By: #### C MP #### [facility] [address] [place] [address] Protein [Mass/Vol] 7.5 g/dL Normal 6.3-8.0 [facility] Comment on above: Performed By: #### C MP #### [facility] [address] [place] [address] Sodium [Moles/Vol] 141 mmol/L Normal 135-144 [facility] Comment on above: Performed By: #### C MP #### [facility] [address] [place] [address] Urea nitrogen [Mass/Vol] 22 mg/dL Critically high 6-20 [facility] Comment on above: Performed By: #### C MP #### [facility] [address] [place] [address] XR Lumbar spine 4 Viewson Interpreted By: Sha Chacon, STUDY: XR LUMBAR SPINE COMPLETE 4+ VIEWS; ; 05/04/2023 4:17 pm INDICATION: Signs/Symptoms:pain. ACCESSION NUMBER(S): [id number] ORDERING CLINICIAN: SHA FOSTER FINDINGS: AP lateral flexion extension x-rays lumbar spine show ipnu-be-vocnqalo degenerative changes at L4-5 and mild degenerative [...] Sha Foster 05/04/2023 4:32 PM Dictation workstation: [id number] Sha Foster MD - 05/04/2023 Interpreted By: Sha Foster, STUDY: XR LUMBAR SPINE COMPLETE 4+ VIEWS; ; 05/04/2023 4:17 pm INDICATION: Signs/Symptoms:pain. ACCESSION NUMBER(S): [id number] ORDERING CLINICIAN: SHA FOSTER FINDINGS: AP lateral flexion extension x-rays lumbar spine show uaiq-hb-vozieivf degenerative changes at L4-5 and mild degenerative [...] Sha Foster 05/04/2023 4:32 PM Dictation workstation: [id number] [facility] Work Phone: [facility] Work Phone: Radiology Study observation (narrative) [facility] Work Phone: Absolute lymphocyte counton 08-20-2021 Lymphocytes Auto (Unsp spec) [#/Vol] 0.41 10*3/uL 0.83-4.51 [facility] Work Phone: Basophil percentageon 2021 Basophils/100 WBC (Bld) 0.5 % 0-1 [facility] Work Phone: Chloride [Moles/Vol] 100 mmol/L 98-107 [facility] Work Phone: [phone] Eosinophils/100 WBC (Bld) 0.0 % 0-5 [facility] Work Phone: Glucose [Mass/Vol] 120 mg/dL 74-106 [facility] Work Phone: Comment on above: Fasting Glucose resu lt from 100 to 125 mg/dL suggests IMPAIRED HOMEOSTASIS per A.D.A. criteria. Neutrophils (Bld) [#/Vol] 0.8 10*3/uL 2.0-7.7 [facility] Work Phone: Neutrophils/100 WBC (Bld) 40.8 % 47-70 [facility] Work Phone: Potassium [Moles/Vol] 3.2 mmol/L 3.5-5.1 [facility] Work Phone: Sodium [Moles/Vol] 134 mmol/L 136-145 [facility] Work Phone: WBC (Bld) [#/Vol] 2.0 10*3/uL 4.4-11.0 [facility] Work Phone: Blood erythrocytes count (nu mber/volume)on 08-20-2021 RBC (Bld) [#/Vol] 4.44 10*6/uL 4.6-6.2 [facility] Work Phone: Blood hemoglobin measurement (mass/volume)on 08-20-2021 Hemoglobin (Bld) [Mass/Vol] 14.0 g/dL 13.0-16.5 [facility] Work Phone: [phone] Blood lymphocytes/100 leukoc yteson 08-20-2021 Lymphocytes/100 WBC (Bld) 20.4 % 19-41 [facility] Work Phone: Blood manual differential co mment interpretation (narrative result)on 08-20-2021 Manual differential comment Blake (Bld) [Interp] SEE COMMENTS [facility] Work Phone: Comment on above: NEUTROPENIA NOTEDLYM PHOPENIA NOTED Blood monocytes/100 leukocyt eson 08-20-2021 Monocytes/100 WBC (Bld) 37.8 % 0-10 [facility] Work Phone: Blood platelet adequacy dete ction by light microscopyon 08-20-2021 Platelets LM Ql (Bld) ADEQUATE ADEQ [facility] Work Phone: Blood platelet mean volumeon 08-20-2021 Platelet mean volume (Bld) [Entitic vol] 12.0 fL 6.2-12.0 [facility] Work Phone: Determination of erythrocyte mean corpuscular volume (MCV)on 08-20-2021 MCV (RBC) [Entitic vol] 93.5 fL 80-94 [facility] Work Phone: Hematocrit Auto (Bld) [Volum e fraction]on 08-20-2021 Hematocrit (Bld) [Volume fraction] 41.5 % 40-54 [facility] Work Phone: Laboratory - Chemistry and C hemistry - challengeon 08-20-2021 CO2 [Moles/Vol] 25.0 mmol/L 21.0-32.0 [facility] Work Phone: Urea nitrogen/Creatinin e [Mass ratio] 11.2 mg/mg 10-20 [facility] Work Phone: Laboratory - Drug toxicology on 08-20-2021 Amphetamines Ql (U) Negative [facility] Work Phone: Benzodiazepines Ql (U) Negative [facility] Work Phone: Cannabinoids Screen Ql (U) Positive [facility] Work Phone: Cocaine Ql (U) Negative [facility] Work Phone: Opiates Ql (U) Negative [facility] Work Phone: Laboratory - Hematology and Cell countson 08-20-2021 Anisocytosis Ql (Bld) RARE [facility] Work Phone: Erythrocyte distribution width (RBC) [Entitic vol] 40.6 fL 35.1-43.9 [facility] Work Phone: Erythrocyte distribution width (RBC) [Ratio] 11.9 % 11.6-14.6 [facility] Work Phone: Immature granulocytes/100 WBC (Bld) 0.500 % 0.0-0.9 [facility] Work Phone: Comment on above: IG% - Immature Granu locytes (promyelocytes, myelocytes and metamyelocytes) > 1% indicates that a LEFT SHIFT is Present. MCH (RBC) [Entitic mass] 31.5 pg 27.0-32.0 [facility] Work Phone: Nucleated RBC/100 WBC (Bld) [Ratio] 0 % 0-5 [facility] Work Phone: Laboratory - Microbiology an d Antimicrobial susceptibilityon 08-20-2021 SARS-CoV-2 (COVID-19) RNA CATALINO+probe Ql (Unsp spec) Detected Not Detect [facility] Work Phone: Comment on above: Normal [...] 08-20-2021 MCHC (RBC) [Mass/Vol] 33.7 g/dL 32-36 [facility] Work Phone: Macrocytes detectionon 08-20 Macrocytes Ql (Bld) RARE [facility] Work Phone: No Panel Informationon 08-20 MDMA (Ecstasy) Screen Negative [facility] Work Phone: Urine Barbiturates Screen Negative [facility] Work Phone: Urine Drug Screen Comment [facility] Work Phone: Comment on above: CONFIRMATORY [...] USE TESTMNEMONIC: [facility] Urine Methadone Screen Negative [facility] Work Phone: Estimated Creatinine Clearance Calc 95.67 ml/min [facility] Work Phone: Estimated GFR (MDRD) Amer 90 mL/min >60 [facility] Work Phone: Comment on above: GFR Calc Estimated GFR (MDRD) Non-Af Amer 74 mL/min >60 [facility] Work Phone: Comment on above: Non- GFR Calc Ethyl Alcohol Level 5.0 mg/dL [facility] Work Phone: Comment on above: The serum:whole bloo d ethanol ratio is approximately 1.14and varies slightly with hematocrit. Medical Alcohol reference interval and critical value innon-tolerant individuals; 50 - 100 Impairment 100 Intoxication 100 - 250 Severe Poisoning 250 - 400 Deep/possible fatal coma Platelets bldon 08-20-2021 Platelets (Bld) [#/Vol] 172 10*3/uL 150-450 [facility] Work Phone: RBC morphologyon 08-20-2021 RBC morphology finding Nom (Bld) N CHROM NORMAL NORM C&C [facility] Work Phone: Review by pathologiston Pathologist review Blake (Unsp spec) [Interp] Reviewed [facility] Work Phone: Comment on above: Previous reported re sult: Conchis wilfredo Edited by: RGOSAMI on 08/21/21:1235Leukopenia and neutropenia. Clinical correlation necessary.Randall Milan M.D. 08/21/21 AMENDED REPORT 08/21/21 1235 PATH REV previously reported as: July wilfredo SARS-CoV-2 (COVID-19) Ag IA. rapid Ql (Resp)on 08-20-2021 SARS-CoV-2 Antigen (Rapid) SARS-CoV-2 (COVID 19) [facility] Work Phone: Serum or plasma calcium whitney urement (mass/volume)on 08-20-2021 Calcium [Mass/Vol] 8.7 mg/dL 8.5-10.1 [facility] Work Phone: Serum or plasma creatinine m easurement (mass/volume)on 08-20-2021 Creatinine [Mass/Vol] 1.16 mg/dL 0.70-1.30 [facility] Work Phone: Comment on above: The validity of the calculated GFR & GFRAA in patients over 70 years has not been determined. Clinical correlation is essential. Serum or plasma urea nitroge n measurement (mass/volume)on 08-20-2021 Urea nitrogen [Mass/Vol] 13 mg/dL 7-18 [facility] Work Phone: Thin prep Papanicolaou smear with manual screeningon 08-20-2021 Thin prep Papanicolaou smear with manual screening 9 5-15 [facility] Work Phone: Urine phencyclidine (PCP) de tectionon 08-20-2021 Phencyclidine Ql (U) Negative [facility] Work Phone: MRI RT SHOULDER W/O CONTRAST on 01-26-2018 Thyrotropin Qn DATE OF EXAM: Jan 26 2018 4:37PMCLINICAL HISTORY/ Name: LIZ JAMILY:MRI RT SHOULDER W/O CONTRAST; 01/26/2018 4:37 pmINDICATION:shoulder [...] TISSUES:No subcutaneous edema.CONCLUSION: IMPRESSION:1. Unremarkable exam. Normal [facility] Healthcare Office Visiton 10-04-2017 Office [...] PM Vitals Vital Signs Recorded: 04Oct2017 03:57PMHeart Axdq714Xpundwxd887, LUE, LbfhfvyIhpdccinb53, LUE, SittingHeight6 ft Cqcsew553 lb 9 ozBMI Iwltcezsbz35.02BSA Calculated2.16O2 Sjmenaaskp85 Physical ExamGen: NADeyes: EOMI, ENT: hearing grossly intact, no nasal dischargeresp: CTABL, without R/Rheart: RRR without MRGGI: abd: S/ND/NT, BS+lymph: no axillary, cervical, supraclavicular lymphadenopathy noted MS: gait grossly WNL, shoulder range of motion grossly within normal limits.derm: no rashes or lesions notedneuro: CN II-XII grossly intactpsych: AANDOx3 Results/Data HIV Antigen/Antibody Dueeet02Cip2733 10:17AJosafat Peterson Test NameResultFlagReferenceHIV AG/AB SCREENNON REACTIVESee BelowSOURCE: Reference Range: NONREACTIVE HIV Ag/Ab screen is performed using the Siemens Advia Centaur HIV Ag/Ab Combo assay which detects the presence of HIV p24 antigen as well as antibodies to HIV-1 (Group M and O) and HIV-2. Syphilis LKB44Trn2821 10:17AJosafat Peterson Test NameResultFlagReferenceSyphilis IgGNON REACTIVESee BelowSOURCE: Reference Range: NONREACTIVE Patients receiving more than 5 mg/day of biotin may have interference in test results. A sample should be taken no sooner than eight hours after previous dose. Contact [phone] for additional information. Vitamin D 25-Hgilowz40Ywq2065 10:17AJosafat Peterson Test NameResultFlagReferenceVitamin D 25-Hydroxy, Level14 [...] Status: Hold For - Scheduling Requested for: 42Wej9738 Ordered;For: Paresthesia of upper extremity, Shoulder pain; Ordered By: Josafat Tinoco Performed: Order Comments: If possible he might be able to come in tomorrow for the walk-in clinic, otherwise schedule with someone. Thanks. Due: 97Ybx9872Mjyyplci pain Start: Ibuprofen 800 MG Oral Tablet; TAKE 1 TABLET 3 TIMES DAILY WITH FOOD ASNEEDED for pain Rx By: Josafat Tinoco; Dispense: 20 Days ; #:60 Tablet; Refill: 1;For: Shoulder pain; PAYAM = N; Sent To: [facility]Vitamin D deficiency Start: Vitamin D3 5000 UNIT Oral Capsule; 1 po qd Rx By: Josafat Tinoco; Dispense: 0 Days ; #:30 Capsule; Refill: 11;For: Vitamin D deficiency; PAYAM = N; Sent To: [facility] Patient Discussion/Summarysmoking about 1/2 ppd, -->> [...] TIMES DAILY WITH FOOD ASNEEDED for pain;Therapy: 14Mef6582 to (Evaluate:65Bwj0399); Last Rx:[id number] OrderedVitamin D3 5000 UNIT Oral Capsule; 1 po qd;Therapy: 56Jit2045 to (Last Rx:[id number]) Ordered Signatures Electronically signed by : Josafat Tinoco DO; Oct 04 2017 4:50PM EST (Author) Normal [facility] Visiton 09-28-2017 Office Visit Chief Complaint [...] 09/06/2015 8:22:19 AM Vitals Vital Signs Recorded: 86Cah1916 09:53AMHeart Wmtt81Abxnvwma921, LUE, XmjsiamSgaftofgb93, LUE, SittingHeight6 ft Ndnxqv108 lb 2 ozBMI Hwxngztpgn18.36BSA Calculated2.17O2 Vjyrlorluz60 Physical ExamGen: NADeyes: EOMI, ENT: hearing grossly [...] Education Material Provided for Patient; Status:Complete; Done: 17Zyb7956 Ordered; For:Drug therapy, Hyperlipidemia, Overweight, Prediabetes, Screening for condition, Vitamin D deficiency; Ordered By:Josafat Tinoco; Complete Blood Count + Differential; Source:Blood (BLD); Status:Active; Requestedfor:28Sep2017; Perform:Lab Services - Lab To Draw (Blood Test); Due:27Dec2017;Ordered; For:Drug therapy, Hyperlipidemia, Overweight, Prediabetes, Screening for condition, Vitamin D deficiency; Ordered By:Josafat Tinoco; Comprehensive Metabolic Panel; Status:Active; Requested for:28Sep2017; Perform:Lab Services - Lab To Draw (Blood Test); Due:27Dec2017;Ordered; For:Drug therapy, Hyperlipidemia, Overweight, Prediabetes, Screening for condition, Vitamin D deficiency; Ordered By:Josafat Tinoco; Hemoglobin A1C; Source:Blood (BLD); Status:Active; Requested for:28Sep2017; Perform:Lab Services - Lab To Draw (Blood Test); Due:27Dec2017;Ordered; For:Drug therapy, Hyperlipidemia, Overweight, Prediabetes, Screening for condition, Vitamin D deficiency; Ordered By:Josafat Tinoco; Lipid Panel; Source:Blood (BLD); Status:Active; Requested for:28Sep2017; Perform:Lab Services - Lab To Draw (Blood Test); Due:27Dec2017;Ordered; For:Drug therapy, Hyperlipidemia, Overweight, Prediabetes, Screening for condition, Vitamin D deficiency; Ordered By:Josafat Tinoco; Magnesium, Serum; Source:Blood (BLD); Status:Active; Requested for:28Sep2017; Perform:Lab Services - Lab To Draw (Blood Test); Due:27Dec2017;Ordered; For:Drug therapy, Hyperlipidemia, Overweight, Prediabetes, Screening for condition, Vitamin D deficiency; Ordered By:Josafat Tinoco; TSH WITH REFLEX TO FREE T4 IF ABNORMAL; Source:Blood (BLD); Status:Active;Requested for:68Xvt0415; Perform:Lab Services - Lab To Draw (Blood Test); Due:27Dec2017;Ordered; For:Drug therapy, Hyperlipidemia, Overweight, Prediabetes, Screening for condition, Vitamin D deficiency; Ordered By:Josafat Tinoco; Vitamin D 25-Hydroxy; Source:Blood (BLD); Status:Active; Requested for:23Aen6941; Perform:Lab Services - Lab To Draw (Blood Test); Due:27Dec2017;Ordered; For:Drug therapy, Hyperlipidemia, Overweight, Prediabetes, Screening for condition, Vitamin D deficiency; Ordered By:Josafat Tinoco;Screening for condition GC + Chlamydia By Amplified Detection; Source:Urine; Status:Active; Requestedfor:35Zvf0622; Perform:Lab Services - Lab To Draw (Non-Blood Test); Due:27Dec2017;Ordered; For:Screening for condition; Ordered By:Josafat Tinoco; HIV Antigen/Antibody Screen; Source:Blood (BLD); Status:Active; Requestedfor:05Plh5236; Perform:Lab Services - Lab To Draw (Blood Test); Due:27Dec2017;Ordered; For:Screening for condition; Ordered By:Josafat Tinoco; Syphilis IGG; Status:Active; Requested for:63Pyf5850; Perform:Lab Services - Lab To Draw (Blood Test); Due:27Dec2017;Ordered; For:Screening for condition; Ordered By:Josafat Tinoco; Patient Discussion/Summarysmoking about 1/2 ppd, -->> advised [...] time. Signatures Electronically signed by : Josafat Tinoco DO; Sep 28 2017 10:19AM EST (Author) Normal [facility] PELVIS AP ONLYon 05-27-2017 PELVIS AP ONLY DATE OF EXAM: May 26 2017 11:32PLINICAL HISTORY/ Name: LIZ JAMILY:PELVIS AP ONLY; 05/26/2017 11:32 pmINDICATION:Trauma.COMPARISON: None. CLINICIAN:MARCIE CRUZS:There is no acute fracture, dislocation, or radiopaque foreign body.Significant stool and bowel gas obscures the bony details.CONCLUSION: IMPRESSION:No acute fracture or dislocation. Follow-up with CT if clinically indicated. Normal [facility] SPINE L MIN 4 VIEWSon 2017 SPINE L MIN 4 VIEWS DATE OF EXAM: May 26 2017 11:32[facility] Name: SILAS JAMIL:SPINE L MIN 4 VIEWS; 05/26/2017 11:32 pmINDICATION:Non Trauma.COMPARISON:12/18/2015ACC ESSION NUMBER(S):[id number] CLINICIAN:MARCIE CRUZS:No significant interval change.There is no acute fracture or dislocation. The vertebral heights and alignment are unremarkable.There is no spondylolysis or spondylolisthesis.There is no radiographic evidence of significant spondylosis.Significant stool and bowel gas obscures the bony details.CONCLUSION: IMPRESSION:No acute fracture or dislocation. Follow-up with CT if clinically indicated. Normal [facility] Vital Signs Date Time Vital Sign Value Performing Clinician Facility 10-31-2024 10: Body mass index (BMI) [Ratio] 25.2 kg/m2 Nighat Griffin MD Work Phone: [facility] 10-31-2024 10:11-0400 Body temperature 97.3 [degF] Nighat Griffin MD Work Phone: [facility] 10-31-2024 10:11-0400 Body weight 86.64 kg Nighat Griffin MD Work Phone: [facility] 10-31-2024 10:11-0400 Diastolic blood pressure 92 mm[Hg] Nighat Griffin MD Work Phone: [facility] 10-31-2024 10:11-0400 Heart rate 70 /min Nighat Griffin MD Work Phone: [facility] 10-31-2024 10:11-0400 Systolic blood pressure 156 mm[Hg] Nighat Griffin MD Work Phone: [facility] 10-23-2024 15:44-0400 SaO2% (BldA) [Mass fraction] 98 % Dr. Josafat Tinoco DO Work Phone: [facility] 10-23-2024 15:32-0400 Body height 185.[address] Josafat Tinoco DO Work Phone: [facility] 10-23-2024 15:32-0400 Body mass index (BMI) [Ratio] 24.9 kg/m2 Dr. Josafat Tinoco DO Work Phone: [facility] 10-23-2024 15:32-0400 Body temperature 98.8 [degF] Dr. Josafat Tinoco DO Work Phone: [facility] 10-23-2024 15:32-0400 Body weight 85.[address] Josafat Tinoco DO Work Phone: [facility] 10-23-2024 15:32-0400 Diastolic blood pressure 65 mm[Hg] Dr. Josafat Tinoco DO Work Phone: [facility] 10-23-2024 15:32-0400 Heart rate 104 /min Dr. Josafat Tinoco DO Work Phone: [facility] 10-23-2024 15:32-0400 Inhaled oxygen flow rate 4 L/min Dr. Josafat Tinoco DO Work Phone: [facility] 10-23-2024 15:32-0400 Respiratory rate 14 /min Dr. Josafat Tinoco DO Work Phone: [facility] 10-23-2024 15:32-0400 Systolic blood pressure 112 mm[Hg] Dr. Josafat Tinoco DO Work Phone: [facility] 10-02-2024 12:11-0400 Body height 185.4 cm Nighat Griffin MD Work Phone: [facility] 10-02-2024 12:11-0400 Body mass index (BMI) [Ratio] 25.46 kg/m2 Nighat Griffin MD Work Phone: [facility] 10-02-2024 12:11-0400 Body temperature 97.3 [degF] Nighat Griffin MD Work Phone: [facility] 10-02-2024 12:11-0400 Body weight 87.54 kg Nighat Griffin MD Work Phone: [facility] 10-02-2024 12:11-0400 Diastolic blood pressure 76 mm[Hg] Nighat Griffin MD Work Phone: [facility] 10-02-2024 12:11-0400 Heart rate 57 /min Nighat Griffin MD Work Phone: [facility] 10-02-2024 12:11-0400 SaO2% (BldA) [Mass fraction] 99 % Nighat Griffin MD Work Phone: [facility] 10-02-2024 12:11-0400 Systolic blood pressure 117 mm[Hg] Nighat Griffin MD Work Phone: [facility] 07-19-2024 10:44-0400 Body height 185.4 cm Radha Dixon DO Work Phone: [facility] 07-19-2024 10:44-0400 Body mass index (BMI) [Ratio] 24.83 kg/m2 Ardha Garratt DO Work Phone: [facility] 07-19-2024 10:44-0400 Body weight 85.37 kg Radha Garratt DO Work Phone: [facility] 07-14-2024 01:28-0400 Body temperature 98.71 [degF] Josafat Degidio DO Work Phone: [facility] 07-13-2024 22:31-0400 Body mass index (BMI) [Ratio] 24.65 kg/m2 Josafat Degidio DO Work Phone: [facility] 07-13-2024 22:31-0400 Body weight 84.73 kg Josafat Degidio DO Work Phone: [facility] 07-13-2024 22:30-0400 Diastolic blood pressure 92 mm[Hg] Josafat Degidio DO Work Phone: [facility] 07-13-2024 22:30-0400 Heart rate 98 /min Josafat Degidio DO Work Phone: [facility] 07-13-2024 22:30-0400 Respiratory rate 19 /min Josafat Degidio DO Work Phone: [facility] 07-13-2024 22:30-0400 SaO2% (BldA) [Mass fraction] 97 % Josafat Degidio DO Work Phone: [facility] 07-13-2024 22:30-0400 Systolic blood pressure 137 mm[Hg] Josafat Degidio DO Work Phone: [facility] 06-28-2024 08:47-0400 Body height 183.1 cm Josafat Degidio DO Work Phone: [facility] 06-28-2024 08:47-0400 Body mass index (BMI) [Ratio] 25.29 kg/m2 Josafat Degidio DO Work Phone: [facility] 06-28-2024 08:47-0400 Body weight 84.82 kg Josafat Degidio DO Work Phone: [facility] 06-28-2024 08:47-0400 Diastolic blood pressure 99 mm[Hg] Josafat Degidio DO Work Phone: [facility] 06-28-2024 08:47-0400 Heart rate 80 /min Josafat Degidio DO Work Phone: [facility] 06-28-2024 08:47-0400 SaO2% (BldA) [Mass fraction] 98 % Josafat Degidio DO Work Phone: [facility] 06-28-2024 08:47-0400 Systolic blood pressure 134 mm[Hg] Josafat Degidio DO Work Phone: [facility] 06-15-2024 21:32-0400 Body height 185.4 cm Lisa Polanco MD Work Phone: [facility] 06-15-2024 21:32-0400 Body mass index (BMI) [Ratio] 24.72 kg/m2 Lisa Polanco MD Work Phone: [facility] 06-15-2024 21:32-0400 Body temperature 98.01 [degF] Lisa Polanco MD Work Phone: [facility] 06-15-2024 21:32-0400 Body weight 85 kg Lisa Polanco MD Work Phone: [facility] 06-15-2024 21:32-0400 Diastolic blood pressure 87 mm[Hg] Lisa Polanco MD Work Phone: [facility] 06-15-2024 21:32-0400 Heart rate 92 /min Lisa Polanco MD Work Phone: [facility] 06-15-2024 21:32-0400 Respiratory rate 20 /min Lisa Polanco MD Work Phone: [facility] 06-15-2024 21:32-0400 SaO2% (BldA) [Mass fraction] 99 % Lisa Polanco MD Work Phone: [employer] 06-15-2024 21:32-0400 Systolic blood pressure 154 mm[Hg] Lisa Polanco MD Work Phone: [employer] 05-19-2024 14:00-0500 Diastolic blood pressure 96 mm[Hg] Josafat Degidio DO Work Phone: [employer] 05-19-2024 14:00-0500 SaO2% (BldA) [Mass fraction] 98 % Josafat Degidio DO Work Phone: [employer] 05-19-2024 14:00-0500 Systolic blood pressure 122 mm[Hg] Josafat Degidio DO Work Phone: [employer] 05-18-2024 21:51-0500 Body height 185.4 cm Josafat Degidio DO Work Phone: [employer] 05-18-2024 21:51-0500 Body mass index (BMI) [Ratio] 24.41 kg/m2 Josafat Degidio DO Work Phone: [employer] 05-18-2024 21:51-0500 Body temperature 98.1 [degF] Josafat Degidio DO Work Phone: [employer] 05-18-2024 21:51-0500 Body weight 83.92 kg Josafat Degidio DO Work Phone: [employer] 05-18-2024 21:51-0500 Heart rate 85 /min Josafat Degidio DO Work Phone: [employer] 05-18-2024 21:51-0500 Respiratory rate 20 /min Josafat Degidio DO Work Phone: [facility] 02-26-2024 07:35-0500 Body temperature 97.7 [degF] Sha Foster MD Work Phone: [facility] 02-26-2024 07:35-0500 Diastolic blood pressure 103 mm[Hg] Sha Foster MD Work Phone: [facility] 02-26-2024 07:35-0500 Heart rate 67 /min Sha Foster MD Work Phone: [facility] 02-26-2024 07:35-0500 Respiratory rate 18 /min Sha Foster MD Work Phone: [facility] 02-26-2024 07:35-0500 SaO2% (BldA) [Mass fraction] 98 % Sha Foster MD Work Phone: [facility] 02-26-2024 07:35-0500 Systolic blood pressure 137 mm[Hg] Sha Foster MD Work Phone: [facility] 02-23-2024 02:23-0500 Body height 185.4 cm Sha Foster MD Work Phone: [facility] 02-23-2024 02:23-0500 Body mass index (BMI) [Ratio] 24.37 kg/m2 Sha Foster MD Work Phone: [facility] 02-23-2024 02:23-0500 Body weight 83.78 kg Sha Foster MD Work Phone: [facility] 02-09-2024 00:18-0500 Diastolic blood pressure 84 mm[Hg] Josafat Degidio DO [email or web address] 02-09-2024 00:18-0500 Respiratory rate 18 /min Josafat Degidio DO Work Phone: [facility] 02-09-2024 00:18-0500 SaO2% (BldA) [Mass fraction] 96 % Josafat Degidio DO Work Phone: [facility] 02-09-2024 00:18-0500 Systolic blood pressure 106 mm[Hg] Josafat Degidio DO Work Phone: [facility] 02-08-2024 21:59-0500 Body height 185.4 cm Josafat Degidio DO Work Phone: [facility] 02-08-2024 21:59-0500 Body mass index (BMI) [Ratio] 24.41 kg/m2 Josafat Degidio DO Work Phone: [facility] 02-08-2024 21:59-0500 Body temperature 97.3 [degF] Josafat Sabre [employer] DO Work Phone: [facility] 02-08-2024 21:59-0500 Body weight 83.92 kg Josafat Degidio DO Work Phone: [facility] 02-08-2024 21:59-0500 Heart rate 88 /min Josafat Degidio DO Work Phone: [facility] 01-29-2024 19:20-0500 Body height 185.4 cm ZuleykaWISHI Work Phone: [facility] 01-29-2024 19:20-0500 Body mass index (BMI) [Ratio] 24.41 kg/m2 ZuleykaWISHI Work Phone: [facility] 01-29-2024 19:20-0500 Body temperature 98.2 [degF] ZuleykaWISHI Work Phone: [facility] 01-29-2024 19:20-0500 Body weight 83.92 kg ZuleykaWISHI Work Phone: [facility] 11-16-2024 19:20-0500 Diastolic blood pressure 93 mm[Hg] Zuleyka Bryant DO Work Phone: [facility] 01-29-2024 19:20-0500 Heart rate 95 /min Zuleyka Bryant DO Work Phone: [facility] 01-29-2024 19:20-0500 Respiratory rate 18 /min Zuleyka Bryant DO Work Phone: [facility] 01-29-2024 19:20-0500 SaO2% (BldA) [Mass fraction] 97 % Zuleyka Bryant DO Work Phone: [facility] 01-29-2024 19:20-0500 Systolic blood pressure 128 mm[Hg] Zuleyka Bryant DO Work Phone: [facility] 12-12-2023 18:53-0400 Body height 182.9 cm Josafat Degidio DO Work Phone: [facility] [employer] 12-12-2023 18:53-0400 Body mass index (BMI) [Ratio] 25.09 kg/m2 Josafat Degidio DO Work Phone: [facility] [employer] 12-12-2023 18:53-0400 Body weight 83.92 kg Josafat Degidio DO Work Phone: [facility] [employer] 12-12-2023 18:35-0400 Body temperature 98.71 [degF] Josafat Degidio DO Work Phone: [facility] [employer] 12-12-2023 18:35-0400 Diastolic blood pressure 105 mm[Hg] Josafat Degidio DO Work Phone: [facility] [employer] 12-12-2023 18:35-0400 Heart rate 105 /min Josafat Degidio DO Work Phone: [facility] [employer] 12-12-2023 18:35-0400 Respiratory rate 18 /min Josafat Degidio DO Work Phone: [facility] 12-12-2023 18:35-0400 SaO2% (BldA) [Mass fraction] 100 % Josafat Tinoco DO Work Phone: [facility] 12-12-2023 18:35-0400 Systolic blood pressure 163 mm[Hg] Josafat Tinoco DO Work Phone: [facility] 05-18-2023 15:51-0500 Body temperature 98.2 [degF] [facility] 05-18-2023 15:51-0500 Diastolic blood pressure 86 mm[Hg] [facility] 05-18-2023 15:51-0500 Heart rate 88 /min [facility] 05-18-2023 15:51-0500 Respiratory rate 18 /min [facility] 05-18-2023 15:51-0500 SaO2% (BldA) [Mass fraction] 99 % [facility] 05-18-2023 15:51-0500 Systolic blood pressure 136 mm[Hg] [facility] 05-18-2023 14:08-0500 Body height 185.42 cm [facility] 05-18-2023 14:08-0500 Body mass index (BMI) [Ratio] 25.4 kg/m2 [facility] 05-18-2023 14:08-0500 Body weight 87.67 kg [facility] 04-10-2023 18:44-0500 Heart rate 79 /min [facility] 04-10-2023 18:44-0500 Respiratory rate 16 /min [facility] 04-10-2023 18:44-0500 SaO2% (BldA) [Mass fraction] 98 % [facility] 04-10-2023 16:36-0500 Body height 185.42 cm [facility] 04-10-2023 16:36-0500 Body mass index (BMI) [Ratio] 25.9 kg/m2 [facility] 04-10-2023 16:36-0500 Body temperature 98.1 [degF] [facility] 04-10-2023 16:36-0500 Body weight 89.1 kg [facility] 04-10-2023 16:36-0500 Diastolic blood pressure 100 mm[Hg] [facility] 04-10-2023 16:36-0500 Systolic blood pressure 152 mm[Hg] [facility] 03-09-2023 11:08-0500 Body height 185.42 cm [facility] 03-09-2023 11:08-0500 Body mass index (BMI) [Ratio] 23.3 kg/m2 [facility] 03-09-2023 11:08-0500 Body temperature 96.8 [degF] [facility] 03-09-2023 11:08-0500 Body weight 80.28 kg [facility] 03-09-2023 11:08-0500 Diastolic blood pressure 95 mm[Hg] [facility] 03-09-2023 11:08-0500 Heart rate 125 /min [facility] 03-09-2023 11:08-0500 Respiratory rate 18 /min [facility] 03-09-2023 11:08-0500 SaO2% (BldA) [Mass fraction] 100 % [facility] 03-09-2023 11:08-0500 Systolic blood pressure 123 mm[Hg] [facility] 11-09-2022 13:32-0400 Body height 185.42 cm [facility] 11-09-2022 13:32-0400 Body mass index (BMI) [Ratio] 25 kg/m2 [facility] 11-09-2022 13:32-0400 Body temperature 97 [degF] [facility] 11-09-2022 13:32-0400 Body weight 86.27 kg [facility] 11-09-2022 13:32-0400 Diastolic blood pressure 94 mm[Hg] [facility] 11-09-2022 13:32-0400 Heart rate 117 /min [facility] 11-09-2022 13:32-0400 Respiratory rate 22 /min [facility] 11-09-2022 13:32-0400 SaO2% (BldA) [Mass fraction] 99 % [facility] 11-09-2022 13:32-0400 Systolic blood pressure 151 mm[Hg] [facility] 06-16-2022 22:21-0400 Diastolic blood pressure 95 mm[Hg] [facility] 06-16-2022 22:21-0400 Heart rate 104 /min [facility] 06-16-2022 22:21-0400 Respiratory rate 18 /min [facility] 06-16-2022 22:21-0400 SaO2% (BldA) [Mass fraction] 97 % [facility] 06-16-2022 22:21-0400 Systolic blood pressure 133 mm[Hg] [facility] 06-16-2022 22:15-0400 Body height 185.42 cm [facility] 06-16-2022 22:15-0400 Body mass index (BMI) [Ratio] 25.2 kg/m2 [facility] 06-16-2022 22:15-0400 Body temperature 98.5 [degF] [facility] 06-16-2022 22:15-0400 Body weight 86.9 kg [facility] 08-22-2021 00:06-0400 Respiratory rate 17 /min [facility] Work Phone: 08-22-2021 00:05-0400 Diastolic blood pressure 74 mm[Hg] [facility] Work Phone: 08-22-2021 00:05-0400 Heart rate 74 /min [facility] Work Phone: 08-22-2021 00:05-0400 SaO2% (BldA) [Mass fraction] 98 % [facility] Work Phone: 08-22-2021 00:05-0400 Systolic blood pressure 132 mm[Hg] [facility] Work Phone: 08-21-2021 04:42-0400 Body temperature 98.9 [degF] [facility] Work Phone: 08-20-2021 15:33-0400 Body height 185.42 cm [facility] Work Phone: 08-20-2021 15:33-0400 Body mass index (BMI) [Ratio] 27.7 kg/m2 [facility] Work Phone: 08-20-2021 15:33-0400 Body weight 95.3 kg [facility] Work Phone: 08-19-2021 15:14-0400 Diastolic blood pressure 75 mm[Hg] [facility] Work Phone: 08-19-2021 15:14-0400 Heart rate 76 /min [facility] Work Phone: 08-19-2021 15:14-0400 Respiratory rate 16 /min [facility] Work Phone: 08-19-2021 15:14-0400 SaO2% (BldA) [Mass fraction] 97 % [facility] Work Phone: 08-19-2021 15:14-0400 Systolic blood pressure 123 mm[Hg] [facility] Work Phone: 08-19-2021 13:05-0400 Body height 185.42 cm [facility] Work Phone: 08-19-2021 13:05-0400 Body mass index (BMI) [Ratio] 28.3 kg/m2 [facility] Work Phone: 08-19-2021 13:05-0400 Body temperature 98 [degF] [facility] Work Phone: 08-19-2021 13:05-0400 Body weight 97.3 kg [facility] Work Phone: 06-15-2021 20:23-0400 Body height 185.42 cm [facility] Work Phone: 06-15-2021 20:23-0400 Body mass index (BMI) [Ratio] 28.4 kg/m2 [facility] Work Phone: 06-15-2021 20:23-0400 Body temperature 97.8 [degF] [facility] Work Phone: 06-15-2021 20:23-0400 Body weight 97.8 kg [facility] Work Phone: 06-15-2021 20:23-0400 Diastolic blood pressure 118 mm[Hg] [facility] Work Phone: 06-15-2021 20:23-0400 Heart rate 129 /min [facility] Work Phone: 06-15-2021 20:23-0400 Respiratory rate 20 /min [facility] Work Phone: 06-15-2021 20:23-0400 SaO2% (BldA) [Mass fraction] 96 % [facility] Work Phone: 06-15-2021 20:23-0400 Systolic blood pressure 164 mm[Hg] [facility] Work Phone: 03-18-2021 18:10-0500 Body mass index (BMI) [Ratio] 27.7 kg/m2 [facility] Work Phone: 03-18-2021 18:10-0500 Body temperature 98.2 [degF] [facility] Work Phone: 03-18-2021 18:10-0500 Body weight 95.25 kg [facility] Work Phone: 03-18-2021 18:10-0500 Diastolic blood pressure 104 mm[Hg] [facility] Work Phone: 03-18-2021 18:10-0500 Heart rate 115 /min [facility] Work Phone: 03-18-2021 18:10-0500 Respiratory rate 20 /min [facility] Work Phone: 03-18-2021 18:10-0500 SaO2% (BldA) [Mass fraction] 99 % [facility] Work Phone: 03-18-2021 18:10-0500 Systolic blood pressure 149 mm[Hg] [facility] Work Phone: 02-15-2021 10:51-0500 Diastolic blood pressure 81 mm[Hg] [facility] Work Phone: 02-15-2021 10:51-0500 Heart rate 82 /min [facility] Work Phone: 02-15-2021 10:51-0500 Systolic blood pressure 132 mm[Hg] [facility] Work Phone: 02-15-2021 09:23-0500 Body mass index (BMI) [Ratio] 28.2 kg/m2 [facility] Work Phone: 02-15-2021 09:23-0500 Body temperature 98.6 [degF] [facility] Work Phone: 02-15-2021 09:23-0500 Body weight 97 kg [facility] Work Phone: 02-15-2021 09:23-0500 Respiratory rate 18 /min [facility] Work Phone: 02-15-2021 09:23-0500 SaO2% (BldA) [Mass fraction] 98 % [facility] Work Phone: Encounters Encounter Date Encounter Type Care Provider Facility Start: 11-10-2024 End: 11-10-2024 Office outpatient visit 25 minutes Sha Foster MD Work Phone: [facility] Comment on above: Myelopathy (Multi) Start: 10-31-2024 End: 10-31-2024 Office outpatient visit 25 minutes Nighat Griffin MD Work Phone: [facility] [place] Comment on above: Herniated nucleus pu lposus, L4-5 (Primary Dx); Paresthesia of upper extremity; Spinal stenosis, cervical region; Pain of left lower extremity; Chronic bilateral low back pain with left-sided sciatica; Spinal stenosis of cervical region; Weakness of left foot; Neurogenic bowel; Back pain with radiculopathy; Left foot drop; Cervical myelopathy Start: 10-31-2024 End: 10-31-2024 ambulatory [facility] Start: 10-23-2024 End: 10-23-2024 Emergency department patient visit Dr. Josafat Tinoco DO Work Phone: -Emergency Department Work Phone: Start: 10-16-2024 End: 10-16-[facility] Start: 10-12-2024 End: 10-12-2024 Subsequent hospital visit by physician [facility] Comment on above: Herniated nucleus pu lposus, L4-5; Pain of left lower extremity; Weakness of left foot; Neurogenic bowel; Left foot drop Start: 10-12-2024 End: 10-12-2024 ambulatory [facility] Start: 10-02-2024 End: 10-02-2024 ambulatory [facility] Start: 10-02-2024 End: 10-02-2024 Office outpatient new 60 minutes Nighat Griffin MD Work Phone: [facility] [place] [place] Comment on above: Herniated nucleus pu lposus, L4-5 (Primary Dx); Paresthesia of upper extremity; Spinal stenosis, cervical region; Spinal stenosis of cervical region; Chronic bilateral low back pain with left-sided sciatica; Pain of left lower extremity; Weakness of left foot; Neurogenic bowel; Back pain with radiculopathy; Cervical myelopathy; Left foot drop Start: 07-24-2024 End: 07-24-2024 ambulatory SURAJ MYEERS [facility] Start: 07-24-2024 End: 07-24-2024 Office outpatient new 45 minutes Suraj Meyers MD Work Phone: [facility] Comment on above: Back pain with radic ulopathy Start: 07-19-2024 End: 07-19-2024 Office outpatient new 60 minutes Radha Dixon DO Work Phone: [facility] [place] Comment on above: Cervical myelopathy (Primary Dx); Back pain with radiculopathy Start: 07-19-2024 End: 07-19-2024 ambulatory [facility] Start: 07-13-2024 End: 07-14-2024 Emergency department patient visit [facility] Comment on above: Acute exacerbation o f chronic low back pain (Primary Dx) Start: 06-28-2024 Encounter for genera l adult medical examination without abnormal findings [facility] Start: 06-28-2024 End: 06-28-2024 Office outpatient new 60 minutes [facility] DO Work Phone: [facility] Comment on above: Preventative health care (Primary Dx); Other chronic pain; Vitamin D deficiency; Attention deficit hyperactivity disorder (ADHD), unspecified ADHD type; Hyperlipidemia, unspecified hyperlipidemia type; Bipolar affective disorder, remission status unspecified (Multi); Hyperverbal speech Start: 06-28-2024 End: 06-28-2024 Patient encounter status [facility] DO Work Phone: [facility] Work Phone: Start: 06-28-2024 ambulatory [facility] Start: 06-28-2024 Encounter for genera l adult medical examination without abnormal findings [facility] Start: 06-15-2024 End: 06-15-2024 Emergency department patient visit Lisa Polanco MD Work Phone: [facility] Comment on above: Sciatica of left brice e (Primary Dx) Start: 06-06-2024 End: 06-06-2024 Office outpatient visit 25 minutes Sha Foster MD Work Phone: [facility] Comment on above: Cervical radiculopat hy (Primary Dx) Start: 06-06-2024 End: 06-06-2024 Subsequent hospital visit by physician Juanita Hay X-Ray 2 [facility] Comment on above: Cervical radiculopat hy Start: 06-06-2024 End: 06-06-2024 ambulatory SHA FOSTER [facility] Start: 05-19-2024 End: 05-19-2024 Emergency department patient visit [facility] Comment on above: Accidental fall, ini tial encounter (Primary Dx); Neck sprain, initial encounter; Lumbar radiculopathy, acute; Leg weakness, bilateral Start: 03-07-2024 End: 03-07-2024 Postop follow up visit related to original px Sha Foster MD Work Phone: [facility] Comment on above: Cervical radiculopat hy (Primary Dx) Start: 03-07-2024 End: 03-07-2024 Subsequent hospital visit by physician Juanita Hay X-Ray 3 [facility] Comment on above: Cervical radiculopat hy Start: 03-07-2024 End: 03-07-2024 ambulatory [facility] Start: 02-28-2024 End: 02-28-2024 Patient encounter procedure Jeff Nichols MD Work Phone: [facility] Comment on above: Arrived Start: 02-28-2024 End: 02-28-2024 ambulatory JEFF NICHOLS [facility] Start: 02-22-2024 Evaluation and manag ement of inpatient [facility] Start: 02-22-2024 End: 02-26-2024 Evaluation and management of inpatient Sha Foster MD Work Phone: [facility] Comment on above: Spinal stenosis (Honey clif[place] Dx); Spinal stenosis, cervical region; Abscess of axilla, left Start: 02-22-2024 Evaluation and manag ement of inpatient [facility] Start: 02-22-2024 End: 02-22-2024 Office outpatient visit 40 minutes Sha Foster MD Work Phone: [facility] Comment on above: Cervical radiculopat hy Start: 02-22-2024 End: 02-22-2024 ambulatory [facility] Start: 02-17-2024 End: 02-17-2024 Subsequent hospital visit by physician Nicholas Alden [facility] Comment on above: Back pain with radic ulopathy Start: 02-17-2024 End: 02-17-2024 ambulatory [facility] Start: 02-08-2024 End: 02-09-2024 Emergency department patient visit [facility] Comment on above: Lumbosacral radiculi tis (Primary Dx) Start: 02-08-2024 End: 02-08-2024 Office outpatient visit 40 minutes Sha Foster MD Work Phone: [facility] Comment on above: Back pain with radic ulopathy (Primary Dx) Start: 02-08-2024 End: 02-08-2024 ambulatory [facility] Start: 01-29-2024 End: 01-29-2024 Emergency department patient visit Zuleykahomero Bryant Work Phone: [facility] Comment on above: Chronic bilateral lo w back pain with bilateral sciatica (Primary Dx); Incontinence of feces with fecal urgency Start: 01-20-2024 End: 01-20-2024 Emergency department patient visit [facility] Facility:[facility] Start: 01-12-2024 End: 01-12-2024 Emergency department patient visit [facility] Facility:[facility] Start: 01-04-2024 End: 01-04-2024 Emergency department patient visit Demetrius Andrew Facility:[facility] Start: 12-14-2023 End: 12-14-2023 Office outpatient visit 25 minutes Sha Foster MD Work Phone: [facility] Comment on above: Lumbar pain (Primary Dx); Lumbar radiculopathy Start: 12-14-2023 End: 12-14-2023 ambulatory [facility] Start: 12-12-2023 End: 12-12-2023 Emergency department patient visit [facility] Comment on above: Acute exacerbation o f chronic low back pain (Primary Dx) Start: 12-07-2023 End: 12-07-2023 Emergency department patient visit [facility] Start: 11-14-2023 End: 11-15-2023 Emergency department patient visit [facility] Start: 08-28-2023 End: 08-28-2023 Emergency department patient visit [facility] Start: 05-18-2023 End: 05-18-2023 Emergency department patient visit [facility] Work Phone: Start: 05-04-2023 End: 05-04-2023 Subsequent hospital visit by physician Juanita Hay X-Ray 1 [facility] Comment on above: Lumbar pain Start: 05-04-2023 End: 05-04-2023 Office outpatient new 45 minutes Sha Foster MD Work Phone: [facility] Comment on above: Lumbar pain (Primary Dx); Lumbar radiculopathy Start: 04-10-2023 End: 04-10-2023 Emergency department patient visit [facility] Work Phone: Start: 03-09-2023 End: 03-09-2023 Emergency department patient visit [facility] Work Phone: Start: 12-04-[address] Sha Foster Facility:[id number] Start: 11-09-2022 End: 11-09-2022 Emergency department patient visit [facility] Work Phone: Start: 06-16-2022 End: 06-16-2022 Emergency department patient visit [facility] Start: 03-17-[address] Sha Foster Facility:[id number] Start: 08-20-2021 End: 08-22-2021 Emergency department patient visit [facility] Start: 08-19-2021 End: 08-19-2021 Emergency department patient visit [facility] Start: 06-15-2021 End: 06-15-2021 Emergency department patient visit [facility] Start: 03-18-2021 End: 03-18-2021 Emergency department patient visit [facility] Start: 02-15-2021 End: 02-15-2021 Emergency department patient visit [facility] Start: 02-15-2018 Patient encounter procedure SHA FOSTER Facility:8 Start: 01-26-2018 Patient encounter procedure SHA FOSTER Facility:[facility] Start: 01-04-2018 Patient encounter procedure SHA López CRISTIAN Facility:[id number] Start: 10-19-2017 Patient encounter procedure TUAN ALBARADO Facility:[id number] Start: 06-25-2017 Patient encounter procedure SHA FOSTER Facility:[id number] Start: 05-27-2017 End: 05-27-2017 Emergency department patient visit TOM WESLEY Facility:[facility] Procedures Date Procedure Procedure Detail [...] Basic metabolic panel calcium total Jewels Nolan [employer] 1 6 TUTOR Work Phone: Start: 02-24-2024 EXTRA TUBES Sha lomax MD Work Phone: Start: 02-24-2024 SST TOP Sha lomax MD Work Phone: Start: 02-23-2024 Ecg routine ecg w/le ast 12 lds trcg only w/o i&r Jewels N Ovidio RESERVOIR ENGINEER-GRADES 1 6 TUTOR Work Phone: Start: 02-23-2024 Drug screen quantita tive vancomycin Param Cifuentes PharmD Start: 02-23-2024 Cul bact xcpt urine blood/stool aerobic isol Qi Castillo RESERVOIR ENGINEER-GRADES 1 6 TUTOR Work Phone: Start: 02-23-2024 Drug screen quantita tive vancomycin Paramportillo Cifuentes PharmD Start: 02-23-2024 EXTRA TUBES Sha lomax MD Work Phone: Start: 02-23-2024 LAVENDER TOP Sha lomax MD Work Phone: Start: 02-22-2024 Ct thorax w/contrast material Haley Young Yates RESERVOIR ENGINEER-GRADES 1 6 TUTOR Work Phone: Start: 02-22-2024 Culture bacterial bl ood aerobic w/id isolates Haleyesther Yates RESERVOIR ENGINEER-GRADES 1 6 TUTOR Work Phone: Start: 02-22-2024 End: 02-22-2024 C-reactive protein Haley Young Yates RESERVOIR ENGINEER-GRADES 1 6 TUTOR Work Phone: Start: 02-22-2024 End: 02-22-2024 Comprehensive metabolic panel Dev Martel PA-C Work Phone: Start: 02-22-2024 EXTRA TUBES Sha lomax MD Work Phone: Start: 02-22-2024 SST TOP Sha lomax MD Work Phone: Start: 01-29-2024 Urnls dip stick/tabl et rgnt auto w/o microscopy [facility] Work Phone: Start: 01-29-2024 C-reactive protein [facility] DO Work Phone: Start: 01-29-2024 Comprehensive metabo lic panel [facility] Work Phone: Start: 05-04-2023 Radex spine lumbosac ral minimum 4 views Sha Foster MD Work Phone: Start: 08-20-2021 Viral antigen assay Start: 09-28-2017 Lipid 1996 panel - S matthew or Plasma Sha Foster MD Work Phone: Plan of Treatment Date Care Activity Detail Author Start: 08-12-2031 Zoster Vaccines (1 of 2) Zoster Vaccines (1 of 2) [facility] Start: 02-25-2027 Diabetes mellitus screening Diabetes Screening [facility] Start: 06-29-2025 Yearly Adult Physical Yearly Adult Physical [facility] Start: 01-09-2025 End: 01-09-2025 Patient encounter procedure 01/09/2025 10:45 AM EDT Office Visit [facility] [address] [place] [phone] Nighat Griffin MD [address] [place] [address] [facility] [place] Start: 12-15-2024 End: 12-15-2024 ambulatory 12/15/2024 1:15 PM EDT Treatment Toya Diaz [facility] [address] [place] [address] Natividad Ferguson, WINDER TENDER [address] [facility] [place] [address] [facility] Portillo [facility] Start: 12-12-2024 End: 12-12-2024 ambulatory 12/12/2024 2:00 PM EDT [facility] [address] [place] [address] [place] [address] [place] [address] [facility] Portillo [facility] Start: 12-08-2024 End: 12-08-2024 ambulatory 12/08/2024 10:45 AM EDT Treatment Toya Diaz [facility] [address] [place] [address] [place] [address] [place] [address] Toya Diaz [facility] Start: 12-05-2024 End: 12-05-2024 ambulatory 12/05/2024 2:45 PM EDT [facility] [address] [place] [phone] [place] [address] [place] [address] [facility] Start: 12-01-2024 End: 12-01-2024 ambulatory 12/01/2024 3:30 PM EDT Treatment Toya Diaz [facility] [address] [place] [phone] Natividad Ferguson, WINDER TENDER [address] [place] [address] Toya Diaz [facility] Start: 11-28-2024 End: 11-28-2024 ambulatory 11/28/2024 10:30 AM EDT Treatment Toya Diaz [facility] [address] [place] [phone] Natividad Ferguson, WINDER TENDER [address] [place] [address] Toya Diaz [facility] Start: 11-24-2024 End: 11-24-2024 ambulatory 11/24/2024 10:45 AM EDT [facility] [address] [place] [phone] [place] [address] [place] [address] Toya Diaz [facility] Start: 11-21-2024 End: 11-21-2024 ambulatory 11/21/2024 9:00 AM EDT [facility] [address] [place] [phone] Natividad Ferguson, WINDER TENDER [address] [place] [address] Toya Diaz [facility] Start: 11-16-2024 End: 11-16-2024 ambulatory 11/16/2024 11:15 AM EDT Treatment [facility] [address] [place] [phone] [place] [address] [place] [address] [facility] Port[facility] Start: 11-14-2024 End: 11-14-2024 ambulatory 11/14/2024 10:30 AM EDT Treatment [facility] [address] [place] [phone] Natividad Ferguson WINDER TENDER [address] [facility] [place], [place] [phone] [facility] Port[facility] Start: 11-13-2024 Influenza vaccination [facility] Start: 11-10-2024 End: 11-10-2025 MR Cervical spine WO contrast MR cervical spine wo IV contrast Imaging Routine Myelopathy (Multi) Expected: 11/10/2024 (Approximate), Expires: 11/10/2025 [facility] Service Area Work Phone: Comment on above: Expected: 11/10/2024 (Approximate), Expi res: 11/10/2025 Start: 11-10-2024 End: 11-10-2025 MR Thoracic spine WO contrast MR thoracic spine wo IV contrast Imaging Routine Myelopathy (Multi) Expected: 11/10/2024 (Approximate), Expires: 11/10/2025 [facility] Work Phone: Comment on above: Expected: 11/10/2024 (Approximate), Expi res: 11/10/2025 Start: 10-31-2024 End: 10-31-2024 Patient encounter procedure 10/31/2024 10:00 AM EDT Office Visit [facility] [place] [address] [facility] [address] [place] [phone] Nighat Griffin MD [address] [place] [address] [facility] [place] Start: 10-16-2024 End: 10-16-2024 Clinical Support 10/16/2024 4:00 PM EDT Clinical Support [facility] [address] [place] [phone] [place] [address] [place] [address] [facility] Start: 10-13-2024 Influenza vaccination Flu vaccine (Season Ended) [facility] Start: 10-12-2024 End: 10-12-2024 Patient encounter procedure 10/12/2024 1:45 PM EDT Appointment [address] [phone] [facility] Start: 10-02-2024 End: 10-02-2025 MR Lumbar spine WO contrast MR lumbar spine wo IV contrast Imaging Routine Herniated nucleus pulposus, L4-5 Pain of left lower extremity Weakness of left foot Neurogenic bowel Left foot drop Expected: 10/02/2024, Expires: 10/02/2025 [facility] Service Area Work Phone: Comment on above: Expected: 10/02/2024, Expires: Start: 10-02-2024 End: 10-02-2024 Patient encounter procedure 10/02/2024 11:30 AM EDT Consult [facility] [place] [address] [address] [place] [address] Nighat Griffin MD [address] [facility] [address] [place] [address] [facility] [place] [place] Start: 07-24-2024 End: 07-24-2024 Patient encounter procedure 07/24/2024 8:30 AM EDT Office Visit [address] [place] [phone] [place] [address] [facility], [address] [place] [address] [facility] Start: 07-19-2024 End: 07-19-2024 Patient encounter procedure 07/19/2024 10:50 AM EDT Office Visit [facility] [place] [address] [place] [address] Radha Dixon DO [address] [place] [address] [facility] Start: 07-04-2024 End: 07-04-2024 Patient encounter procedure 07/04/2024 8:30 AM EDT Office Visit [facility] [address] [phone] Sha Foster MD [address] [facility], [address] [place] [address] [facility] Start: 06-28-2024 End: 06-28-2024 Patient encounter procedure 06/28/2024 9:20 AM EDT Office Visit [facility] Primary [facility] [address] [phone] Josafat Tinoco, DO [address] [facility], [facility] [address] [place] [address] [facility] Start: 06-06-2024 End: 06-06-2025 XR Cervical spine 2 or 3 Views [facility] Service Area Work Phone: Comment on above: Expected: 06/06/2024, Expires: Start: 06-06-2024 End: 06-06-2024 Patient encounter procedure 06/06/2024 11:00 AM EDT Office Visit [facility] [address] Donald [place] [phone] Sha Foster MD [address] [facility], [address] [place] [address], [place] [address] [facility] Start: 03-13-2024 End: 03-13-2024 Patient encounter procedure 03/13/2024 9:30 AM EST Office Visit [facility] [address] [place] [facility] [place] [phone] Jeff Nichols MD [address] [facility] [address] Juanis [place], [place] [phone] [facility] Start: 03-07-2024 End: 03-07-2024 Patient encounter procedure 03/07/2024 11:15 AM EST Office Visit [facility] [address] [place] [address], [place] [phone] Sha Foster MD [address] [facility], [address] [place] [address], [place] [address] [facility] Start: 03-02-2024 Documentation procedure 03/02/2024 Scanned Document [facility] [address] [place] [address], [place] [address] Sha Foster MD [address] [facility], [address] [place] [address], [place] [address] [facility] Start: 02-28-2024 End: 02-28-2024 Patient encounter procedure 02/28/2024 9:30 AM EST Office Visit [facility] [address] [place] [facility] [place] [phone] Jeff Nichols MD [address] [place] [address] Dr [address] [place] [address] [facility] Start: 02-22-2024 End: 02-22-2024 Patient encounter procedure 02/22/2024 10:30 AM EST Office Visit [facility] [address] [place] [phone] Sha Foster MD [address] [facility], [address] [place] [phone] [facility] Start: 02-08-2024 End: 02-07-2025 MR Cervical spine WO contrast MR cervical spine wo IV contrast Imaging STAT Back pain with radiculopathy Expected: 02/08/2024, Expires: 02/07/2025 [facility] Service Area Work Phone: Comment on above: Expected: 02/08/2024, Expires: Start: 02-08-2024 End: 02-07-2025 MR Lumbar spine W contrast IV MR lumbar spine w IV contrast Imaging STAT Back pain with radiculopathy Expected: 02/08/2024, Expires: 02/07/2025 [facility] Work Phone: Comment on above: Expected: 02/08/2024, Expires: Start: 02-08-2024 End: 02-07-2025 MR Thoracic spine WO contrast MR thoracic spine wo IV contrast Imaging STAT Back pain with radiculopathy Expected: 02/08/2024, Expires: 02/07/2025 [facility] Work Phone: Comment on above: Expected: 02/08/2024, Expires: Start: 12-14-2023 End: 12-13-2024 MR Lumbar spine WO and W contrast IV MR lumbar spine w and wo IV contrast Imaging Routine Lumbar pain Lumbar radiculopathy Expected: 12/14/2023 (Approximate), Expires: 12/13/2024 [facility] Service Area Work Phone: Comment on above: Expected: 12/14/2023 (Approximate), Expi res: 12/13/2024 Start: 11-14-2023 COVID-19 Vaccine ( season) COVID-19 Vaccine ( season) [facility] Start: 11-14-2023 COVID-19 Vaccine ( season) COVID-19 Vaccine ( season) [facility] Start: 11-14-2023 Influenza vaccination Influenza Vaccine (#1) [facility] Start: 10-14-2023 Influenza vaccination Flu vaccine (#1) [facility] Start: 05-18-2023 [facility] Start: 05-18-2023 End: 05-18-2023 Patient encounter procedure 05/18/2023 2:00 PM EST Appointment [facility] [address] [place] [address] [facility] Start: 05-04-2023 End: 05-04-2024 MR Lumbar spine WO and W contrast IV MR lumbar spine w and wo IV contrast Imaging Routine Lumbar pain Lumbar radiculopathy Expected: 05/04/2023 (Approximate), Expires: 05/04/2024 [facility] Service Area Work Phone: Comment on above: Expected: 05/04/2023 (Approximate), Expi res: 05/04/2024 Start: 04-10-2023 [facility] Start: 03-09-2023 [facility] Start: 11-13-2022 Influenza vaccination Influenza Vaccine (#1) [facility] Start: 09-28-2022 Lipid panel Lipid Panel [facility] Start: 06-16-2022 Electrocardiographic procedure [facility] Start: 06-16-2022 Plain chest X-ray Chest 1 View (Portable) [facility] Start: 06-16-2022 Troponin I measurement [facility] Start: 06-16-2022 [facility] Start: 2021 Lipid panel Lipids [facility] Start: 09-28-2020 Diabetes mellitus screening Diabetes Screening [facility] Start: 09-28-2018 Hemoglobin A1c measurement Diabetes: Hemoglobin A1C [facility] Start: 11-17-2013 DTaP/Tdap/Td Vaccines (1 - Tdap) DTaP/Tdap/Td Vaccines (1 - Tdap) [facility] Start: 2008 HPV Vaccines (1 - 3-dose standard series) HPV Vaccines (1 - 3-dose standard series) [facility] Start: 08-12-2003 DTaP/Tdap/Td Vaccines (1 - Tdap) DTaP/Tdap/Td Vaccines (1 - Tdap) [facility] Start: 2000 DTaP/Tdap/Td vaccine (1 - Tdap) DTaP/Tdap/Td vaccine (1 - Tdap) [facility] Start: 2000 Hepatitis A Vaccines (1 of 2 - Risk 2-dose series) Hepatitis A Vaccines (1 of 2 - Risk 2-dose series) [facility] Start: 2000 Hepatitis B vaccine (1 of 3 - 19+ 3-dose series) Hepatitis B vaccine (1 of 3 - 19+ 3-dose series) [facility] Start: 2000 Hepatitis B Vaccines (1 of 3 - 19+ 3-dose series) Hepatitis B Vaccines (1 of 3 - 19+ 3-dose series) [facility] Start: 2000 Pneumococcal 0-49 years Vaccine (1 of 2 - PCV) Pneumococcal 0-49 years Vaccine (1 of 2 - PCV) [facility] Start: 2000 Pneumococcal Vaccine: Pediatrics and At-Risk Adult Patients (1 of 2 - PCV) Pneumococcal Vaccine: Pediatrics and At-Risk Adult Patients (1 of 2 - PCV) [facility] Start: 08-12-1999 Hepatitis C screening [facility] Start: 1996 HIV screening HIV screen [facility] Start: 1994 Varicella vaccination Varicella Vaccines (1 of 2 - 13+ 2-dose series) [facility] Start: 1994 Varicella vaccine (1 of 2 - 13+ 2-dose series) Varicella vaccine (1 of 2 - 13+ 2-dose series) [facility] Start: 1993 Depression Screen Depression Screen [facility] Start: 08-12-1987 Pneumococcal 0-64 years Vaccine (1 of 2 - PCV) Pneumococcal 0-64 years Vaccine (1 of 2 - PCV) [facility] Start: 08-12-1987 Pneumococcal Vaccine: Pediatrics (0 to 5 Years) and At-Risk Patients (6 to 64 Years) (1 of 2 - PCV) Pneumococcal Vaccine: Pediatrics (0 to 5 Years) and At-Risk Patients (6 to 64 Years) (1 of 2 - PCV) [facility] Start: 1982 MMR Vaccines (1 of 1 - Standard series) MMR Vaccines (1 of 1 - Standard series) [facility] Start: 1982 Varicella vaccination Varicella Vaccines (1 of 2 - 2-dose childhood series) [facility] Start: 02-11-1982 COVID-19 Vaccine (#1) COVID-19 Vaccine (#1) [facility] Start: 1981 Hepatitis B Vaccines (1 of 3 - 3-dose series) Hepatitis B Vaccines (1 of 3 - 3-dose series) [facility] Start: 1981 Yearly Adult Physical Yearly Adult Physical [facility] Alanine aminotransfe rase [Enzymatic activity/volume] in Serum or Plasma [facility] Albumin [Mass/volume ] in Serum or Plasma [facility] Alkaline phosphatase [Enzymatic activity/volume] in Serum or Plasma [facility] Anion gap measurement [facility] Aspartate aminotrans ferase [Enzymatic activity/volume] in Serum or Plasma [facility] Bacteria identified in Blood by Culture Blood Culture Microbiology Routine 02/22/2024 8:36 PM EST [facility] Service Area Work Phone: End: 02-23-2024 Bacteria identified in Unspecified specimen by Culture Tissue/Wound Culture/Smear Microbiology Routine Once (Lab) for 1 Occurrences starting 02/23/2024 until 02/23/2024 [facility] Work Phone: Comment on above: Once (Lab) for 1 Occurrences starting until 02/23/2024 End: 02-27-2024 Basic metabolic 2000 panel - Serum or Plasma Basic metabolic panel Lab Routine Morning draw (Lab) for 3 Occurrences starting 02/25/2024 until 02/27/2024, 2 completed [facility] Work Phone: Comment on above: Morning draw (Lab) for 3 Occurrences sta rting 02/25/2024 until 02/27/2024, 2 completed Bilirubin, total measurement [facility] BUN/Creatinine ratio [facility] Calcium [Mass/volume ] in Serum or Plasma [facility] Carbon dioxide, tota l [Moles/volume] in Serum or Plasma [facility] End: 02-27-2024 CBC panel - Blood by Automated count CBC Lab Routine Morning draw (Lab) for 3 Occurrences starting 02/25/2024 until 02/27/2024, 2 completed [facility] Work Phone: Comment on above: Morning draw (Lab) for 3 Occurrences sta rting 02/25/2024 until 02/27/2024, 2 completed Chloride [Moles/volu me] in Serum or Plasma [facility] Creatinine [Moles/vo lume] in Serum or Plasma [facility] ECG 12 lead ECG 12 lead ECG STAT 02/23/2024 2:38 PM EST [facility] Service Area Work Phone: End: 02-22-2024 Extra Urine Castrejon Tube Extra Urine Castrejon Tube Lab Timed Once for 1 Occurrences starting 02/22/2024 until 02/22/2024 [facility] Work Phone: Comment on above: Once for 1 Occurrences starting 02/22/20 24 until 02/22/2024 Glucose [Mass/volume ] in Serum or Plasma [facility] End: 02-22-2024 Glucose [Mass/volume] in Serum or Plasma POCT Glucose Point of Care Testing - Docked Device Routine Once (Lab) for 1 Occurrences starting 02/22/2024 until 02/22/2024 [facility] Work Phone: Comment on above: Once (Lab) for 1 Occurrences starting until 02/22/2024 Glucose [Mass/volume ] in Serum or Plasma POCT Glucose Point of Care Testing - Docked Device Routine As needed (Lab) until discontinued starting 02/24/2024 [facility] Work Phone: Comment on above: As needed (Lab) until discontinued start ing 02/24/2024 Hematocrit [Volume F raction] of Blood [facility] Hemoglobin [Mass/vol ume] in Blood [facility] End: 02-24-2024 Incentive spirometry Instruct Incentive spirometry Instruct Respiratory Care Routine Once for 1 Occurrences starting 02/24/2024 until 02/24/2024 [facility] Work Phone: Comment on above: Once for 1 Occurrences starting 02/24/20 until 02/24/2024 Leukocytes [#/volume ] in Blood [facility] Mean corpuscular hem oglobin concentration determination [facility] Mean corpuscular hem oglobin determination [facility] Measurement of renal function [facility] End: 02-17-2024 MR Cervical spine WO contrast [facility] Servi ce Area Work Phone: Comment on above: Once for 1 Occurrences starting 02/17/20 until 02/17/2024 End: 02-17-2024 MR Lumbar spine WO and W contrast IV [facility] Service Area Work Phone: Comment on above: Once for 1 Occurrences starting 02/17/20 until 02/17/2024 End: 10-12-2024 MR Lumbar spine WO contrast [facility] Service Area Work Phone: Comment on above: Once for 1 Occurrences starting 10/13/19 until 10/12/2024 End: 02-17-2024 MR Thoracic spine WO contrast [facility] Servi ce Area Work Phone: Comment on above: Once for 1 Occurrences starting 02/17/20 until 02/17/2024 Neutrophil count [facility] Neutrophil percent differential count [facility] Patient Education [facility] Work Phone: Patient referral [facility] Work Phone: Platelets [#/volume] in Blood [facility] Potassium [Moles/vol ume] in Serum or Plasma [facility] Red blood cell count [facility] Red cell distributio n width determination [facility] Sodium [Moles/volume ] in Serum or Plasma [facility] Total protein measurement [facility] Urea nitrogen [Mass/ volume] in Serum or Plasma [facility] End: 02-22-2024 Urinalysis complete W Reflex Culture panel - Urine [facility] Service Area Work Phone: Comment on above: Once (Lab) for 1 Occurrences starting until 02/22/2024 Once for 1 Occurrenc es starting 02/22/2024 until 02/22/2024 Immunizations Immunization Date Immunization Notes Care Provider Ashley ricardo 11-16-2013 tetanus and diphther ia toxoids, adsorbed, preservative free, for adult use (2 Lf of tetanus toxoid and 2 Lf of diphtheria toxoid) [facility] Payers Date Payer Category Payer Self-pay [id number] 2018 Medicaid (Managed Care) 1.2. [id number] 2018 Unknown AVANI ETIENNE [facility] [id number] 2018-Present [address] [place] [address] [id number] 2013 Unknown [id number] 2013 Unknown [id number] 1981 Unknown [id number] 2.840.1.977640.3.579.2. 1981 Unknown [id number] 2.840.1.358833.3.579.2. 1981 Unknown [id number] 2.840.1.798821.3.579.2. 1981 Unknown [id number] 2.16840.1.986385.3.579.2. 1981 Unknown [id number] 2.840.1.875271.3.579.2. 355 1981 Unknown [id number] 2.16840.1.838399.3.579.2. 355 1981 Unknown [id number] 2.16840.1.736851.3.579.2. 1067 1981 Unknown [id number] 2.16.840.1.935861.3.579.2. 1067 1981 Unknown [id number] 2.16840.1.571378.3.579.2. 1245 1981 Unknown [id number] 2.16840.1.267874.3.579.2. 1245 1981 Unknown [id number] 2.16840.1.765422.3.579.2. 1245 1981 Unknown [id number] 2.840.1.779909.3.579.2. 1245 1981 Unknown [id number] 2.840.1.883639.3.579.2. 1245 1981 Unknown [id number] 2.840.1.787296.3.579.2. 1245 1981 Unknown [id number] 2.840.1.043194.3.579.2. 1245 1981 Unknown [id number] 2.16840.1.358461.3.579.2. 1245 1981 Unknown [id number] 2.840.1.281743.3.579.2. 1245 1981 Unknown [id number] 2.840.1.124435.3.579.2. 1245 1981 Unknown [id number] 2.16840.1.237900.3.579.2. 1981 Unknown [id number] 2.16840.1.187948.3.579.2. 1981 Unknown [id number] 2.16840.1.119970.3.579.2. 182 1981 Unknown [id number] 2.16840.1.617751.3.579.2. 182 1981 Unknown [id number] 2.16840.1.705542.3.579.2. 182 1981 Unknown [id number] 2.16840.1.713739.3.579.2. 182 1981 Unknown [id number] 2.16840.1.028394.3.579.2. 182 1981 Unknown [id number] 2.840.1.865546.3.579.2. 182 1981 Unknown [id number] 2.840.1.302361.3.579.2. 182 1981 Unknown [id number] 2.840.1.807062.3.579.2. 1242 1981 Unknown [id number] 2.0.1.733412.3.579.2. 1242 1981 Unknown [id number] 2.840.1.536249.3.579.2. 1242 1981 Unknown [id number] 2.840.1.080118.3.579.2. 1242 1981 Unknown [id number] 2.840.1.010430.3.579.2. 1242 1981 Unknown [id number] 1980 Unknown [id number]. 1243 1980 Unknown [id number]. 1243 1980 Unknown [id number] 2.840.1.229087.3.579.2. 1243 1980 Unknown [id number]. [id number] Unknown [id number] 2..840.1.168388.3.579.2. 1245 Unknown [id number] Unknown [id number] Unknown [id number] 2.16.840.1.158939.3.579.2. 462 Unknown [id number] 2.16.840.1.125960.3.579.2. 462 Unknown [id number] 2.16.840.1.265105.3.579.2. 462 Unknown [id number]. 462 Social History Date Type Detail Facility Start: 06-15-2021 End: 05-18-2023 Tobacco smoking status MAIS Unknown if ever smoked [facility] Start: 01-24-2020 Friends [facility] Start: 08-04-2020 Cigarettes [facility] Start: 1980 Sex Assigned At Male [facility] Start: 05-04-2023 Gender identity Identifies as male gender (finding) [facility] Work Phone: Start: 05-04-2023 Sexual orientation Heterosexual (finding) [facility] Work Phone: Start: 04-24-2023 End: 07-19-2024 Exposure to SARS-CoV-2 (event) Not sure [facility] Start: 02-22-1997 End: 02-23-2024 Tobacco smoking status NHIS Smokes tobacco daily [employer] Start: 02-22-1997 History of tobacco use Cigarette Smoker [employer] Start: 12-22-2016 End: 02-23-2024 Tobacco use and exposure Smokeless tobacco non-user [employer] Start: 12-12-2023 End: 07-13-2024 Alcoholic beverage intake Current drinker of alcohol (finding) [employer] Start: 12-12-2023 End: 02-23-2024 History of Social function [employer] Start: 12-12-2023 End: 02-23-2024 Alcohol Use Disorder Identification Test - Consumption [AUDIT-C] [facility] How often to you hav e a drink containing alcohol? Never [facility] Start: 02-06-2022 How many standard drinks containing alcohol do you have on a typical day? Patient does not drink [facility] Start: 08-12-2016 Alcohol Comment rarely [facility] Start: 1980 Sex assigned at Not on file [facility] Has the [employer], [employer], oil, or water company threatened to shut off services in your home in past 12Mo No [facility] How hard is it for y ou to pay for the very basics like food, housing, medical care, and heating Somewhat hard [facility] How often to you hav e a drink containing alcohol? Monthly or less [facility] How many standard dr inks containing alcohol do you have on a typical day? 1 or 2 [facility] How often do you hav e 6 or more drinks on 1 occasion? Less than monthly [employer] [facility] Start: 07-03-2014 Sex Male (finding) [email or web address] Start: 07-19-2024 Alcoholic beverage intake Ex-drinker (finding) [facility] Work Phone: Medical Equipment Procedure Code Equipment Code Equipment Origin al Text Equipment Identifier Dates Acp Plate 40mm 2-Level [id number] Start: 02-24-2024 Viacell 532_[id number] Start: 02-24-2024 Spacer, Hedron C , 14x16, 7mm, 7 Degree - Sna - [id number] Start: 02-24-2024 Spacer, Hedron C , 14x16, 7mm, 7 Degree - Sna - [id number] Start: 02-24-2024 Screw, Acp, Self Drill, 3.5 X 15mm, Variable - Sna - [id number] Start: 02-24-2024 Functional Status Date Assessment Result Facility [facility] Mental Status Date Assessment Result Facility 10-23-2024 Cognitive function Voice/Name [facility] Work Phone: 06-16-2022 Cognitive function Voice/Name [facility] Work Phone: Clinical Notes 11-09-2022 to 10-31-2024 Nighat Griffin MD - 10/31/2024 10:00 AM EDTPatient Instructions Note Date & Type Note Facility 10-31-2024 History of Presen t illness Narrative Chief complaint: Cervical myelopathy sequela follow-up Dear Dr. Dixon I had the pleasure of seeing your patient, Harman Jamil, in clinic today. As you know, He is a pleasant 44 y.o. right handed male, with past medical history of hyperlipidemia, vitamin D deficiency, bipolar disorder, ADHD, and cervical myelopathy who presents for follow-up of cervical myelopathy sequela. He was last seen here on 10/02/2024, at which point I advised him to increase baclofen and gabapentin and to start taking ibuprofen only as needed. He is up to gabapentin 600mg TID. He started Lorzone QID yesterday and is still taking baclofen 15mg TID. Seems to be helping. He will continue to increase as tolerated before considering other medications I referred him to physical therapy. He had his first eval and hasn't scheduled his follow ups yet. They had him extend his back that caused severe pain. I advised him to proceed with the left AFO from [facility], he has been fitted and is pending insurance. I advised him to do his best to stop smoking. He is working on it He notes that he's having changes in his bowel and is unable to stop from defecating on himself. He had an accident yesterday. I ordered a lumbar MRI and this was done on 10/12/2024, images and report personally reviewed interpreted today and discussed with the patient. I showed him the images and used an anatomical spine model as well. === 10/12/24 === MR LUMBAR SPINE WO CONTRAST - Impression - When compared to prior MR 02/18/2024, 1. [...] further assessment. 2. Additional multilevel lumbar spondylosis. He rates his pain as 7/10, previously 6/10. Otherwise, there have been no changes to his medications or past medical history since last visit 10/31/2024: Lumbar MRI reviewed, continue increasing the baclofen, gabapentin, take Lorzone and ibuprofen as needed, continue with home exercises, proceed with PT and AFO, follow-up with spine surgeon about lumbar spine and left leg As a reminder: TIMELINE OF COMPLAINT(S): Patient was diagnosed with [...] sensation since his surgery but continues to have deficits in both. He did incontinent of bowel and bladder which has been improving. He is now fully continent of bladder but holds his bowel movements for about 5 days and then it will all come at once. Patient followed up with Dr. Dixon started the patient on baclofen which has greatly improved his spasticity. His pain has been treated by Dr. [...] spine which were ordered on 06/06/2024 but not completed. Denied by insurance === 02/17/24 === MR [...] and mild right neural foraminal stenosis, in addition to impingement of the [...] and L5-S1, with vacuum phenomenon. There is apnk-qn-bqqunukn bilateral neural foraminal stenosis at these levels. X-ray left hip 05/18/2024 Impression: There is no sign of fracture or dislocation of the left hip. There is no sign of osteoarthritis of the hip. The right hip is normal in appearance with no sign of dislocation or osteoarthritis. === 10/12/24 === MR LUMBAR SPINE WO CONTRAST - Impression - When compared to prior MR 02/18/2024, 1. [...] further assessment. 2. Additional multilevel lumbar spondylosis. Lab Results Component Value Date HGBA1C 5.2 09/28/2017 FUNCTIONAL HISTORY: The patient is independent in all ADLs, mobility, and driving. The patient does not use any assistive device. Difficult to do ADLs SH: Lives in: [place] Lives with: Mom Occupation: None, applying for SSDI Tobacco: Daily smoker, half pack per day Alcohol: No Drugs: Marijuana ____ ROS: The patient denies any bowel or bladder incontinence/accidents, night sweats, fevers, chills, recent significant weight loss. A 14 point review of systems was reviewed with the patient and is as above and otherwise negative. ROS questionnaire positive for numbness and tingling, weakness, poor balance, difficulty walking, bowel incontinence, muscle pain/tendon/spasms, back pain PHYSICAL EXAM GEN - Alert, well-developed, well-nourished, no acute distress PSYCH - Cooperative, appropriate mood and affect HEENT - NC/AT RESP - Non-labored respirations, equal expansion CV - warm and well-perfused, No cyanosis or edema in extremities. ABD- soft, ND SKIN - redness on face in a somewhat malar distribution but also above his eyebrows. Previously: NEURO - Bilateral UE strength - 5/5 shoulder abduction,5/5 biceps, 5/5 triceps, 5/5 wrist extensors, 5/5 finger flexors, 5-/5 interossei, and 5/5 phlebotomy program coordinator LE strength - 4/5 on the left with 5/5 on right hip flexors, 4+/5 on the left with 5/5 on the right knee flexors, 5-/5 on the left with 5/5 [...] ADHD, and cervical myelopathy who presents for follow-up of sequelae of myelopathy. Physical exam is notable [...] lumbar MRI to rule out critical stenosis. I advised him to follow-up with his spine surgeon to discuss the significant stenosis at L5-S1 that may be contributing to his left leg weakness and ongoing/worsening bowel issues -Increase baclofen to 20 mg 3 times per day. Do this slowly by increasing by 5 mg at a time every 3-5 days.Maximum is 80 mg/day -You can also increase gabapentin slowly by 300 mg at a time every 3-5 days until you are at 900 mg 3 times per day. Maximum is 1200 mg three times per day -Continue lorzone and ibuprofen as needed, but try taking ibuprofen less each time, for example 400 mg or 600 mg instead of 800 mg -Consider other medications in the future -Proceed with PT and daily home exercises -Proceed with AFO -Follow up with your spine surgeon about your lower back and left leg -Do your Best to completely stop smoking cigarettes -Follow-up 2-3 months The patient expressed understanding and agreement with the assessment and plan. Patient encouraged to contact us should they have any questions, concerns, or any changes in symptoms. Thank you for allowing me to participate in the care of your patient. Dictated with voice recognition software, please forgive any errors in grammar and/or spelling documented in this encounter [facility] Work Phone: 10-31-2024 Instructions Nighat Griffin MD - 10/31/2024 10:00 AM EDT -Increase baclofen to 20 mg 3 times per day. Do this slowly by increasing by 5 mg at a time every 3-5 days.Maximum is 80 mg/day -You can also increase gabapentin slowly by 300 mg at a time every 3-5 days until you are at 900 mg 3 times per day. Maximum is 1200 mg three times per day -Continue lorzone and ibuprofen as needed, but try taking ibuprofen less each time, for example 400 mg or 600 mg instead of 800 mg -Consider other medications in the future -Proceed with PT and daily home exercises -Proceed with AFO -Follow up with your spine surgeon about your lower back -Do your Best to completely stop smoking cigarettes -Follow-up 2-3 months documented in this encounter [facility] Work Phone: 10-23-2024 Discharge summary [facility] 10-23-2024 Discharge summary Note Date/Time October 23, 2024 4:03pm [facility] Medical Records Department [address] [place] [address] Emergency Department Summary 10/23/24 MR#: [id number] Acct: [id number] Name: HARMAN JAMIL Rep #:[id number] : 1980 44 From: Caleb Smith DO PCP: Dr. Josafat Tinoco DO Status:REG ER Location: ED ADDENDUM by Dr. Caleb Smith DO on 10/23/24 at 1603 Patient's EKG reviewed and showed sinus rhythm with a rate of 70 bpm. QTc was noted to be 437 with a normal [place] interval 144. 10/23/24 1603<Electronically signed by Caleb Smith DO> Cosigner Signature (if applicable): cc: Dr. Josafat Tinoco DO ~* Signed HPI History of Present Illness Chief Complaint: Unresponsive Narrative Narrative: Patient is a 44-year-old male with past medical history of ADHD, cervical radiculopathy status post surgery in February, sciatic who presents to the emergency department with a chief complaint of unresponsiveness. Per security he was found unresponsive outside therefore they brought him in here to be evaluated. [facility] Medical History ADHD Sciatica Cervical radiculopathy Home [...] states that earlier today he went to [place] for a psych eval and he states that this appointment went well. He states that he stopped at a friend's house and then was on his way to see his mother and he notes that he ended up here and is not sure what happened. He denies any history of drug abuse. Patient's fifld-or-crvz glucose was noted to be 105. Patient [...] mg PO BID Primary Care Provider: Josafat Tinoco Referrals: Josafat Tinoco DO [Primary Care Provider] - Print Language: Russian Disposition Disposition: Against Medical Advice What to do if you have Problems For any increased pain, shortness of breath, bleeding, nausea or vomiting, chestpain, or any unexpected problems, contact your Primary Care Provider. Call [facility] ([phone]) or report to the closest Emergency Room. Call 911 if necessary. 10/23/24 1602 <Electronically signed by Caleb Smith DO> Cosigner Signature (if applicable): CC: Dr. Josafat Tinoco DO ~ Signed [facility] Work Phone: 1(381) 259-579007-21-2025 History of Present illness Narrative* Nighat Griffin [...] and L5-S1, with vacuum phenomenon. There is ykgz-cs-gonetrji bilateral neural foraminal stenosis at these levels. [...] Difficult to do ADLs SH: Lives in: [place] Lives with: Mom Occupation: None, applying for [employer] Tobacco: Daily smoker, half pack per day [...] 5/5 finger flexors, 5-/5 interossei, and 5/5 phlebotomy program coordinator LE strength - 4/5 on the left [...] 6. Ergonomics: -Left ankle foot orthotic from [employer] 7. Return to clinic for follow-up with [...] referring provider, Dr. Dixon [facility] Work Phone: 1(229) 583-561407-21-2025 Instructions* Patient Instructions* Nighat Griffin MD - [...] provided -Get a left ankle-foot orthotic from [employer] -Lumbar MRI ordered -Do your Best to completely stop smoking cigarettes -Follow-up after MRI [facility] Work Phone: 1(248) 808-237305-12-2025 History and physical note* Suraj Meyers MD [...] examinationpreserved. NEURO: Alert and oriented X 3 SAFE DEPOSIT BOX RENTAL CLERK normal as tested without focal neurological deficit [...] 06/06/2024 11:08 am INDICATION: Signs/Symptoms:Pain. ACCESSION NUMBER(S): [id number] ORDERING CLINICIAN: SHA FOSTER FINDINGS: AP lateral [...] Sha Foster 06/06/2024 3:56 PM Dictation workstation: [id number] CT lumbar spine wo IV contrast Result [...] and L5-S1, with vacuum phenomenon. There is vexd-el-ytiyooqz bilateral neural foraminal stenosis at these levels. [...] 10:52 am INDICATION: Signs/Symptoms:neck pain. ACCESSION NUMBER(S): [id number] ORDERING CLINICIAN: SHA FOSTERFINDINGS: AP lateral x-rays [...] Sha Foster 03/07/2024 11:17 AM Dictation workstation: [id number] MR cervical spine wo IV contrast Result Date: 02/18/2024 Interpreted By: Luana Lawson and Lawrence Austen STUDY: MR CERVICAL SPINE WO IV CONTRAST; MR LUMBAR SPINE W AND WO IV CONTRAST; MR THORACIC SPINE WO IV CONTRAST; 02/17/2024 7:08 pm; 02/17/2024 7:09 pm INDICATION: Signs/Symptoms:pain. ,M54.10 Radiculopathy, site unspecified COMPARISON: Pgyiocenxc97/07/2018, MRI 08/17/2016. ACCESSION NUMBER(S): [id number]; [id number]; [id number] ORDERING CLINICIAN: SHA FOSTER TECHNIQUE: Sagittal T1, [...] Luana Lawson 02/18/2024 11:18 AM Dictation workstation: [id number] MR thoracic spine wo IV contrast Result Date: 02/18/2024 Interpreted By: Luana Lawson and Lawrence Austen STUDY: MR CERVICAL SPINE WO IV CONTRAST; MR LUMBAR SPINE W AND WO IV CONTRAST; MR THORACIC SPINE WO IV CONTRAST; 02/17/2024 7:08 pm; 02/17/2024 7:09 pm INDICATION: Signs/Symptoms:pain. ,M54.10 Radiculopathy, site unspecified COMPARISON: Vbjtwsxsnf73/07/2018, MRI 08/17/2016. ACCESSION NUMBER(S): [id number]; [id number]; [id number] ORDERING CLINICIAN: SHA FOSTER TECHNIQUE: Sagittal T1, [...] Luana Lawson 02/18/2024 11:18 AM Dictation workstation: [id number] MR lumbar spine w and wo IV contrast Result Date: 02/18/2024 Interpreted By: Luana Lawson and Lawrence Austen STUDY: MR CERVICAL SPINE WO IV CONTRAST; MR LUMBAR SPINE W AND WO IV CONTRAST; MR THORACIC SPINE WO IV CONTRAST; 02/17/2024 7:08 pm; 02/17/2024 7:09 pm INDICATION: Signs/Symptoms:pain. ,M54.10 Radiculopathy, site unspecified COMPARISON: Ddewsdsvgb85/07/2018, MRI 08/17/2016. ACCESSION NUMBER(S): [id number]; [id number]; [id number] ORDERING CLINICIAN: SHA CRISTIAN TECHNIQUE: Sagittal T1, T2, STIR, axial T1 [...] Luana Lawson 02/18/2024 11:18 AM Dictation workstation: [id number] XR lumbar spine 2-3 views Result Date: [...] visit with any questions or concerns at [phone] M-F 8-4 pm Suraj Meyers M.D. Vice President Integrated , Division of Pain Medicine [facility] [employer] Helper of Anesthesiology and Pain Medicine [facility] [employer] [place] [address] [place], [place] [address] Office: [phone] Suraj Meyers MD [1] Past Medical History: Diagnosis Date Contusion of chest wall 06/28/2024 Disease due to severe acute respiratory syndrome coronavirus 2 (SARS-CoV-2) 06/28/2024 Fall 06/28/2024 Fever 06/28/2024 Marijuana use 09/04/2014 Per tox screen 08/2014: Patient informed he will receive no further controlled medication scripts from physicians at [facility]. Also violation of signed controlled substance [...] history on file. [4] No Known Allergies [facility] Work Phone: 1(576) 348-800205-12-2025 History and physical note* Suraj Meyers MD [...] examinationpreserved. NEURO: Alert and oriented X 3 SAFE DEPOSIT BOX RENTAL CLERK normal as tested without focal neurological deficit [...] 06/06/2024 11:08 am INDICATION: Signs/Symptoms:Pain. ACCESSION NUMBER(S): [id number] ORDERING CLINICIAN: SHA FOSTER FINDINGS: AP lateral [...] Sha Foster 06/06/2024 3:56 PM Dictation workstation: [id number] CT lumbar spine wo IV contrast Result [...] and L5-S1, with vacuum phenomenon. There is hywe-qt-egeqesta bilateral neural foraminal stenosis at these levels. [...] 10:52 am INDICATION: Signs/Symptoms:neck pain. ACCESSION NUMBER(S): [id number] ORDERING CLINICIAN: SHA FOSTERFINDINGS: AP lateral x-rays [...] Sha Foster 03/07/2024 11:17 AM Dictation workstation: [id number] MR cervical spine wo IV contrast Result Date: 02/18/2024 Interpreted By: Luana Lawson and Lawrence Austen STUDY: MR CERVICAL SPINE WO IV CONTRAST; MR LUMBAR SPINE W AND WO IV CONTRAST; MR THORACIC SPINE WO IV CONTRAST; 02/17/2024 7:08 pm; 02/17/2024 7:09 pm INDICATION: Signs/Symptoms:pain. ,M54.10 Radiculopathy, site unspecified COMPARISON: Dbztagerqr02/07/2018, MRI 08/17/2016. ACCESSION NUMBER(S): [id number]; [id number]; [id number] ORDERING CLINICIAN: SHA FOSTER TECHNIQUE: Sagittal T1, [...] Luana Lawson 02/18/2024 11:18 AM Dictation workstation: [id number] MR thoracic spine wo IV contrast Result Date: 02/18/2024 Interpreted By: Luana Lawson, and Antonio Forrester STUDY: MR CERVICAL SPINE WO IV CONTRAST; MR LUMBAR SPINE W AND WO IV CONTRAST; MR THORACIC SPINE WO IV CONTRAST; 02/17/2024 7:08 pm; 02/17/2024 7:09 pm INDICATION: Signs/Symptoms:pain. ,M54.10 Radiculopathy, site unspecified COMPARISON: Oyhipceyfd55/07/2018, MRI 08/17/2016. ACCESSION NUMBER(S): [id number]; [id number]; [id number] ORDERING CLINICIAN: SHA FOSTER TECHNIQUE: Sagittal T1, [...] Luana Lawson 02/18/2024 11:18 AM Dictation workstation: [id number] MR lumbar spine w and wo IV contrast Result Date: 02/18/2024 Interpreted By: Luana Lawson and Lawrence Austen STUDY: MR CERVICAL SPINE WO IV CONTRAST; MR LUMBAR SPINE W AND WO IV CONTRAST; MR THORACIC SPINE WO IV CONTRAST; 02/17/2024 7:08 pm; 02/17/2024 7:09 pm INDICATION: Signs/Symptoms:pain. ,M54.10 Radiculopathy, site unspecified COMPARISON: Kmhcvaapct76/07/2018, MRI 08/17/2016. ACCESSION NUMBER(S): [id number]; [id number]; [id number] ORDERING CLINICIAN: SHA FOSTER TECHNIQUE: Sagittal T1, [...] Luana Lawson 02/18/2024 11:18 AM Dictation workstation: [id number] XR lumbar spine 2-3 views Result Date: [...] visit with any questions or concerns at [phone] M-F 8-4 pm Suraj Meyers M.D. Vice President Integrated , Division of Pain Medicine [employer] Helper of Anesthesiology and Pain Medicine [facility] [employer] [place] [address] [place], [place] [address] Office: [phone] Suraj Meyers MD [1] Past Medical History: Diagnosis Date Contusion of chest wall 06/28/2024 Disease due to severe acute respiratory syndrome coronavirus 2 (SARS-CoV-2) 06/28/2024 Fall 06/28/2024 Fever 06/28/2024 Marijuana use 09/04/2014 Per tox screen 08/2014: Patient informed he will receive no further controlled medication scripts from physicians at [facility]. Also violation of signed controlled substance [...] [4] No Known Allergies [facility] Work Phone: 1(428) 585-292505-12-2025 History of Present illness Narrative* Deandra May [...] Objective Physical Exam Assessment/Plan [facility] Work Phone: 1([phone]) 451-109705-07-2025 History of Present illness Narrative* Radha Dixon DO - 07/19/2024 10:50 AM EDT Bethany Jamil is a right handed 43 y.o. year old male who presents with Back Pain (NPV, ty- Dr. Foster/sciatica), Neck Pain (NPV, ty- Dr. Foster), Extremity Weakness (NPV, ty- Dr. Foster), and Numbness (NPV, ty- Dr. Foster/From torso down/Can't feel warm or [...] There is no tremor. On coordination testing, roizok-uitq-pxwwxm testing are done well bilaterally. Sensory examination [...] further controlled medication scripts from physicians at [facility]. Also violation of signed controlled substance agreement. [...] Date TONSILLECTOMY 09/06/2015 Tonsillectomy [facility] Work Phone: 1(381) 462-313205-07-2025 Instructions* Patient Instructions* Radha Dixon DO - [...] while taking this medication. [facility] Work Phone: 1(852) 933-592505-02-2025 Hospital Discharge instructions* Discharge Instr - DONNIE* Ines Salter PA - 07/14/2024 12:21 AM EDT Continuity of Care Form Patient Name: Harman Jamil : 1980 Admit date: 07/13/2024 Discharge date: Code Status Order: No Order Advance Directives: Admitting Physician: No admitting provider for patient encounter. PCP: Josafat Tinoco DO Discharging Nurse: Discharging Hospital Unit/Room#: 05/15 Discharging Unit Phone Number: Emergency Contact: Extended Emergency Contact Information Primary Emergency Contact: Sis Delgadillo [facility] Relation: Other Past Surgical History: [...] MENTAL STATUS:} IV Access: { DONNIE IV ACCESS:028441406} Nursing Mobility/ADLs: Walking {CHP DME ADLs:158114404} Transfer {CHP DME ADLs:552760593} Bathing {CHP DME ADLs:224209936} Dressing {CHP DME ADLs:273996977} Toileting {CHP DME ADLs:553502500} Feeding {CHP DME ADLs:806312349} Crystal Inspector {P DME ADLs:029371762} Med Delivery { DONNIE MED Delivery:188540480} Wound Care Documentation and Therapy: Elimination: Continence: Bowel: {YES / NO:} Bladder: {YES / NO:} Urinary Catheter: {Urinary Catheter:283872839} Colostomy/Ileostomy/Ileal Conduit: {YES / NO:} Date of Last BM: No intake or output data in the 24 hours ending 07/14/24 0020 No intake/output data recorded. Safety Concerns: { DONNIE Safety Concerns:996511431} Impairments/Disabilities: { DONNIE Impairments/Disabilities:121140037} Nutrition Therapy: Current Nutrition Therapy: { DONNIE Diet List:531498670} Routes of Feeding: {CHP DME Other Feedings:959701646} Liquids: {Plastics Nurse liquid thickness:27056} Daily Fluid Restriction: {CHP DME Yes amt example:108029545} Last Modified Barium Swallow with Video (Video Swallowing Test): {Done Not Done Date:} Treatments at the Time of Hospital Discharge: Respiratory Treatments: Oxygen Therapy: {Therapy; copd oxygen:40500} Ventilator: {[facility] Vent List:878547570} Rehab Therapies: {THERAPEUTIC INTERVENTION:9214352096} Weight Bearing Status/Restrictions: { CC Weight Bearin} Other Medical Equipment (for information only, NOT a DME order): {EQUIPMENT:680783229} Other Treatments: Patient's personal belongings (please select all that are sent with patient): {[facility] DME Belongings:441129938} RN SIGNATURE: {Esignature:486464438} CASE MANAGEMENT/SOCIAL WORK SECTION Inpatient Status Date: Readmission Risk Assessment Score: [facility] RISK [facility] UNPLANNED READMISSION 2.0 0 Total Score Discharging to Facility/ Agency Name: Address: Phone: Fax: Dialysis Facility (if applicable) Name: Address: Dialysis Schedule: Phone: Fax: Senior Lead Project Manager/Lacquer Spray Booth Operator signature: {Esignature:820795919} PHYSICIAN SECTION Prognosis: {Prognosis:6106735842} Condition at Discharge: { Patient Condition:976773255} Rehab Potential (if transferring to Rehab): {Prognosis:7387648017} Recommended Labs or Other Treatments After Discharge: Physician Certification: I certify the above information and transfer of Harman Jaiml is necessary for the continuing treatment of the diagnosis listed and that he requires {Admit to Appropriate Level of Care:63920} for {GREATER/LESS:047984388} 30 days. Update Admission H&P: {CHP DME Changes in HandP:671083331} PHYSICIAN SIGNATURE: {Esignature:614056881} * Attachments The following attachments cannot be sent through Care Everywhere. * Back: Strain (Russian) [facility] History of Present illness Narrative* Josafat Tinoco, DO - 06/28/2024 9:20 AM EDT Subjective [...] symptoms are better managed. documented in this [facility] Work Phone: [phone]) 569-781404-03-2025 Hospital Discharge instructions* Discharge Instructions* Lisa Polanco [...] be sent through Care Everywhere. * Sciatica (Russian) * Back Pain (Russian) documented in this encounterBon [facility] History of Present illness Narrative* Sha Foster [...] and symmetric bilaterally, exceptbicep reflexes are 3+. Garnre positive bilaterally. He has sustained clonus bilaterally. [...] [facility] For complete plan and/or surgical details, please refer to Dr. Foster's portion of this split dictation. -Dev Martel PA-C In a pzsz-px-fetd encounter, I performed a history and physical [...] Foster MD Orthopedic surgery [facility] Phone: [phone] 285-991803-07-2025 Hospital Discharge instructions* Discharge Instructions* Nayan Hale PA-C - 05/19/2024 3:44 AM EST Follow closely with your primary spinal surgeon for recheck. Return sooner for new or worsening symptoms. You can attempt to fruit or nut picker a walker with the provided prescription at a local [employer] store * Attachments The following attachments cannot be sent through Care Everywhere. * Back Pain (Russian) * Fall Prevention (Russian) documented in this encounterBon [facility] History of Present illness Narrative* Dev Martel [...] 2+ and symmetric bilaterally. Garner positive bilaterally. Outcomes Analyst strength symmetric and strong. Cervical incision is [...] split dictation. -Dev Martel PA-C In a lvag-ry-cvxn encounter, I performed a history and physical [...] Foster MD Orthopedic surgery [facility] Work Phone: 1(391) 765-604012-14-2024 Plan of care note* Care Plan - [...] goals for the shift include Pain management [facility]12-14-2024 Miscellaneous Notes* Care Plan - Felipe [...] comfort level or baseline comfort level 02/26/2024 0656 by Rafa Kwan RN Outcome: Progressing 02/25/20242206 [...] Adult Goal: Free from fall injury 02/26/2024 0656 by Rafa Kwan RN Outcome: Progressing 02/25/20242206 [...] Foster M.D. Asst.: None Dev LeosThe physician medical assistant ob gyn was present through the entire case. Given thenature of the disease process and the procedure to be performed a skilled surgical services tech was necessary during the case. The medical assistant ob gyn was necessary in order to hold retractors and directly assistin the operation. A certified executive chef was at the back table managing instruments [...] anterior two thirds of the disc. A Hinckley pinretractor was then placed to provide distraction [...] barriers include none. * Care Plan - Haley Laboy RN - 02/23/2024 1:58 AM EST The patient's goals for the shift include rest and comfort The clinical goals for the shift include pain management Over the shift, the patient did make progress toward the following goals. Barriers to progression include none. Recommendations to address these barriers include none. documented in this [facility] Work Phone: 1([phone]) 851-740312-14-2024 Plan of care note* Care Plan - [...] goals for the shift include Pain management [facility] Work Phone: [phone] 283-883212-14-2024 Hospital course Narrative* FREDO Ling - 02/26/2024 9:55 AM EST Images from the original note were not included. Discharge summary This patient Harman R Morcus was admitted to the hospital on 02/22/2024 [...] 2024 in wound clinic documented in this [facility] Work Phone: [phone]) 183-181412-14-2024 History of Present illness Narrative* FREDO Ling [...] FREDO Ling 02/26/2024 8:36 AM * Henrietta H Martina, OT - 02/25/2024 12:45 PM EST Occupational Therapy Evaluation / Treatment Patient Name: Harman Jamil Department: [facility] Room: [address] [place] [address] Today's Date: 02/25/2024 Time Calculation Start Time: [...] Comments: BUE AROM WFL; strength >3/5; functional phlebotomy program coordinator 4/5. Perception: Inattention/Neglect: Appears intact Coordination: Movements are Fluid and Coordinated: Yes Hand Function: Gross Grasp: Functional Coordination: Functional Outcome Measures:[facility] Daily Activity Putting on and taking off [...] Pt goal: to go home * Jewels Nolan, RESERVOIR ENGINEER-GRADES 1 6 TUTOR - 02/25/2024 12:00 PM EST Harman Jamil [...] oral, q6h oxygen, , inhalation, Continuous - polyethylene glycol, 17 g, oral, Daily sulfamethoxazole-trimethoprim, [...] decompression and fusion - direct admission from [facility] in [place] - Progressive neurovascular changes noted per primary [...] note, this documentation is completed using the Lancope Dictation system (voice recognition software). There may be spelling and/or grammatical errors that were not corrected prior to final submission. FREDO Hairston * Terry Aguilera, PT - 02/25/2024 11:23 AM EST Physical [...] LLE : Within Functional Limits Outcome Measures: [facility] Basic Mobility Turning from your back to [...] Foster. Pt has cervical brace on. Per GRADES 1 6 TUTOR anticipate Wednesday DC on Oral Bactrim x 10 days, follow up with Dr. Nichols on Wednesday. Pt had bedside I & D for 3 left axillary abscesses which is currently packed, ordereddaily wound dressings. Pt refuses HHC, states can not have HHC at his nieces in [place] home, and plans to go to his moms in [place] for only a couple days and come back to [place]. Pt declines any needs. GRADES 1 6 TUTOR notified and will cancel home care orders. [facility] has made pt appt with Dr. Nichols Wednesday morning at 9:30 so pt can call insurance company today to set up transportation for Wednesday appt. No further DC needs identified at present time. * FREDO Ling - 02/25/2024 10:30 AM EST Plan for [...] required documents and is reaching out to [facility] for transportation. * Sowmya Hernandez PharmD - 02/25/2024 10:17 AM EST Vancomycin Dosing by Pharmacy- Cessation of Therapy Consult to pharmacy for vancomycin dosing has been discontinued by the prescriber, pharmacy will sign off at this time. Please call pharmacy if there are further questions or re-enter a consult if vancomycin is resumed. Sowmya Hernandez, SvetlanaD * Jeff Nichols MD - 02/25/2024 8:03 AM EST Plastic Surgery Note Afebrile, vital signs stable Left axillary wounds clean Less swelling and erythema and less tender Impression: Status post incision and drainage with debridement axillary abscesses left side Continue current dressing changes * Wolfgang Childers, RESERVOIR ENGINEER-GRADES 1 6 TUTOR - 02/25/2024 7:41 AM EST Images from [...] FREDO Ling 02/25/2024 7:41 AM * Lennie Mooney [facility] - 02/25/2024 6:29 AM EST Vancomycin Dosing [...] aureus I/O last 3 completed shifts: In: 9.9 (24.5 mL/kg) [P.O.:600; I.V.:99.9 (1.2 mL/kg); IV [...] surgery. This dosing regimen is predicted by [employer] to result in the following pharmacokinetic parameters: Regimen: 1000 mg IV every 12 hours. Start time: 01:02 on 02/26/2024 Exposure target: AUC24 (range)400-600 mg/L.hr SEC02-06: 381 mg/L.hr AUC24,ss: 409 mg/L.hr Probability of [...] palpation Skin: no rashes, no diaphoresis Neuro: SAFE DEPOSIT BOX RENTAL CLERK intact Affect appropriate and patient is interactive [...] and Zosyn, Cultures pending, anticipating PICC and senior care antibiotics. Pt states currently living in basement of niece's home in [facility] [place], has had recent problems with legs [...] abscesses Continue current dressing changes * Jewels Nolan APRN-GRADES 1 6 TUTOR - 02/23/2024 2:02 PM EST Harman Jamil [...] major adverse cardiovascular events including cardiac arrest, MO, arrhythmias, and/or even . Patient appears medically [...] to Left armpit. COMPARISON: None. ACCESSION NUMBER(S): [id number] ORDERING CLINICIAN: HALEY YATES TECHNIQUE: Contiguous axial [...] Fleischner Society 2017, Radiology. 2017 [place];284 (1):228-243.) [email or web address] Signed by: Phillip Mojica 02/22/2024 11:09 PM Dictation workstation: [id number] Physical Exam Constitutional: Well developed, awake/alert/oriented x3, [...] decompression and fusion - direct admission from [facility] - Progressive neurovascular changes noted per primary [...] note, this documentation is completed using the Lancope Dictation system (voice recognition software). There may be spelling and/or grammatical errors that were not corrected prior to final submission. FREDO Hairston * Adore Garg RN - 02/23/2024 10:39 AM EST 02/23/24 1037 Discharge Planning Living Arrangements Family members (staying at nieces home) Support Systems Family members Assistance Needed none, WINDER TENDER pt states mostly ind ADLS, family assistance with IADLS, pt doesn't drive or work, 1 recent fall Type of Residence Private residence (living in basement at niece's home in [place], [place]) Number of Stairs to Enter Residence [...] were you homeless or living in a longterm (including now)? N Transportation Needs In the [...] Zosyn, Cultures pending, anticipating P ICC and senior care antibiotics. Pt states currently living in basement of niece's home in [place], has had recent problems with legs and control of bowel so hasn't been going in public. Pt unsure of discharge preference, dependent on needs. CT team will monitor case for progression and DC planning. * Svetlana DominguezD - 02/23/2024 10:17 AM EST Vancomycin Dosing [...] on 02/23/2024 Exposure target: AUC24 (range)400-600 mg/L.hr YIO63-60: 448 mg/L.hr AUC24,ss: 487 mg/L.hr Probability of [...] toxicity. Korina Lopez PharmD documented in this [facility] Work Phone: [phone]) 884-115012-14-2024 Plan of care note* Care Plan - Rafa Kwan RN - 02/26/2024 6:56 AM EST The patient's goals for the shift include rest and comfort The clinical goals for the shift include Patient will remain safe and HD stable. Pain managed to tolerable level Problem: Pain - Adult Goal: Verbalizes/displays adequate comfort level or baseline comfort level 02/26/2024 0656 by Rafa Kwan RN Outcome: Progressing 02/25/20242206 [...] Adult Goal: Free from fall injury 02/26/2024 0656 by Rafa Kwan RN Outcome: Progressing 02/25/20242206 by Rafa Kwan RN Flowsheets (Taken 02/25/2024 2207) Free from fall injury: Instruct family/caregiver on patient safety Problem: Discharge Planning Goal: Discharge to home or other facility with appropriate resources 02/26/2024 06 by Rafa Kwan RN Outcome: Progressing 02/25/20242206 [...] level of nervousness and agitation this morning. [facility]12-13-2024 Plan of care note* Care [...] goals for the shift include Pain management [facility] Work Phone: [phone]) 508-920712-12-2024 Plan of care note* Care Plan - Haley Laboy RN - 02/24/2024 11:05 PM EST The patient's goals for the shift include rest and comfort The clinical goals for the shift include pain management Over the shift, the patient did make progress toward the following goals. Barriers to progression include none. Recommendations to address these barriers include none. [facility] Work Phone: [phone] 538-623012-12-2024 Note* Op Note - Sha Foster MD [...] Foster M.D. Asst.: None Dev LeosThe physician medical assistant ob gyn was present through the entire case. Given thenature of the disease process and the procedure to be performed a skilled surgical services tech was necessary during the case. The medical assistant ob gyn was necessary in order to hold retractors and directly assistin the operation. A certified executive chef was at the back table managing instruments [...] anterior two thirds of the disc. A Hinckley pinretractor was then placed to provide distraction [...] please do not hesitate to contact me. [facility] Work Phone: 1([phone]) 282-126512-12-2024 Plan of care note* Care Plan - Haley Laboy RN - 02/24/2024 1:52 AM EST The patient's goals for the shift include rest and comfort The clinical goals for the shift include pain management Over the shift, the patient did make progress toward the following goals. Barriers to progression include none. Recommendations to address these barriers include none. [facility] Work Phone: [phone]) 339-200312-11-2024 History and physical note* Sha Foster MD [...] this with one of my colleagues in [place] and we both agree that the neurologic [...] please do not hesitate to contact me. [facility] Work Phone: [phone] 379-180812-11-2024 History and physical note* Sha Foster MD [...] this with one of my colleagues in [place] and we both agree that the neurologic [...] hesitate to contact me. documented in this [facility] Work Phone: 1([phone]) 447-415812-11-2024 Plan of care note* Care Plan - [...] goals for the shift include Pain management [facility] Work Phone: [phone]) 463-540012-11-2024 Hospital Discharge instructions* Discharge Instructions* FREDO Hairston - 02/23/2024 8:41 AM EST ##### Please follow up with your PCP regarding these nodules############ Follow up in 1 week. May need to follow up with savings teller as well. Will send you information infollow [...] sent through Care Everywhere. * Hidradenitis suppurativa (Russian) documented in this [facility] Work Phone: [phone]) 919-545912-11-2024 Consult note* Jeff Nichols MD - 02/23/2024 [...] MD *These notes are being done using Lancope voice recognition technology and may include unintended errors with respect to translation of words, typographical errors or grammar errors which may not havebeen identified prior to finalization of the chart note. [facility] Work Phone: [phone]) 488-108812-11-2024 Consult note* Jeff Nichols MD - 02/23/2024 [...] MD *These notes are being done using Lancope voice recognition technology and may include unintended [...] on 02/23/2024 Exposure target: AUC24 (range)400-600 mg/L.hr FUR92-53: 471 mg/L.hr AUC24,ss: 581 mg/L.hr Probability of [...] of toxicity. PARAM CIFUENTES PharmD * Karli Pena, DO - 02/22/2024 9:24 PM EST Consults [...] palpation Skin: no rashes, no diaphoresis Neuro: SAFE DEPOSIT BOX RENTAL CLERK intact Affect appropriate and patient is interactive [...] therace variable for the IDMS-Traceable creatinine methods. https://jasn.asnjournals.org/content/early//ASN.2786066194 Calcium 02/22/2024 9.2 8.6 - 10.3 mg/dL [...] and tingling to BLE, palpable pulses, equal phlebotomy program coordinator strengths of upper extremities. Last Recorded Vitals BP 147/89 (Patient Position: Sitting) Pulse 98 Temp 35.6 C (96.1 F) Resp 18 SpO2 93% Relevant Results CT w contrast ordered - results pending BC x2 Wound/tissue culture ordered ID consulted Plastic Surgery consulted Remaining lab work is unremarkable Assessment/Plan C5-6 and C6-7 anterior cervical decompression and fusion - direct admission from [facility] in [place] - Progressive neurovascular changes noted per primary [...] education given - offered replacement - declined FREDO Syed [facility] Phone: [phone]) [phone] Plan of care note* Care Plan - Haley Laboy RN - 02/23/2024 2:39 AM EST The patient's goals for the shift include rest and comfort The clinical goals for the shift include pain management Over the shift, the patient did make progress toward the following goals. Barriers to progression include none. Recommendations to address these barriers include none. [facility] Work Phone: [phone] 485-906612-11-2024 Plan of care note* Care Plan - Haley Laboy RN - 02/23/2024 1:58 AM EST The patient's goals for the shift include rest and comfort The clinical goals for the shift include pain management Over the shift, the patient did make progress toward the following goals. Barriers to progression include none. Recommendations to address these barriers include none. [facility] Work Phone: [phone] 701-385812-11-2024 Consult note* Param Cifuentes, Allan - 02/23/2024 12:30 AM ESTAssociated Order(s): PHARMACY [...] on 02/23/2024 Exposure target: AUC24 (range)400-600 mg/L.hr KOJ35-27: 471 mg/L.hr AUC24,ss: 581 mg/L.hr Probability of [...] and signs/symptoms of toxicity. PARAM CIFUENTES PharmD [facility]12-10-2024 Consult note* Karli Pena DO - 02/22/2024 9:24 PM [...] palpation Skin: no rashes, no diaphoresis Neuro: SAFE DEPOSIT BOX RENTAL CLERK intact Affect appropriate and patient is interactive [...] therace variable for the IDMS-Traceable creatinine methods. https://jasn.asnjournals.org/content/early/ASN.7764577457 Calcium 02/22/2024 9.2 8.6 - 10.3 mg/dL [...] visit with the patient > 60 min [facility] Work Phone: 1([phone]) 181-688712-10-2024 Consult note* Haley Yates APRN-GRADES 1 6 TUTOR - 02/22/2024 9:09 PM EST Consults Reason [...] and tingling to BLE, palpable pulses, equal phlebotomy program coordinator strengths of upper extremities. Last Recorded Vitals BP 147/89 (Patient Position: Sitting) Pulse 98 Temp 35.6 C (96.1 F) Resp 18 SpO2 93% Relevant Results CT w contrast ordered - results pending BC x2 Wound/tissue culture ordered ID consulted Plastic Surgery consulted Remaining lab work is unremarkable Assessment/Plan C5-6 and C6-7 anterior cervical decompression and fusion - direct admission from [facility] - Progressive neurovascular changes noted per primary [...] offered replacement - declined Haley Yates APRN-MINA [facility] Work Phone: [phone]) [phone] History of Present illness Narrative* Sha Foster [...] cervical decompression and fusion. documented in this [facility] Work Phone: 1([phone]) 865-422112-01-2024 History of Present illness Narrative* Sha Foster MD - 11/10/2024 1:30 PM EDT Chief complaint: Back pain left buttock and hamstring pain HPI: This is a patient who I did a C5-6 and C6-7 ACDF on in February 2024. He was myelopathic and he says he is having some slow improvement of that. He is here today for a different reason. He wantsme to workup his buttock and left hamstring pain and some back pain that he is having in his lower lumbar spine. I already did a microdiscectomy on him back in October 2015. He has an MRI of his lumbar spine that was done and he wanted me to go over that. Activity makes his pain worse. Rest makes itbetter. His main issue is the back pain. He does get some buttock and hamstring pain the left but does not really go to the knee and certainly does not go past the knee. On exam he certainly was still walks with a myelopathic gait. He has an AFO in the left side for his foot drop. He does have dorsiflexion weakness on the left side but he can get up and his tiptoes and his gait is definitely improved compared to when I first saw him for his myelopathy surgery. He is hyperreflexic C5-C6-C7 and L4 and S1. He has a positive Jo's. Back is clear and has pretty good range of motion he can bend over and touch his toes and has good strength. MRI was reviewed and it does show at L5-S1 intraforaminal stenosis and compression of the L5 nerve root on the left. He has a laminectomy window on the left which is just medial to and distal to the L5 pedicle on the left. The operative report was reviewed from 10/30/2015 and it shows L4-5 left laminectomy decompressing the L4 and V nerve roots as well as retrieval of a distal herniated disc cutting down distally almost to the L5-S1 level. I do not see any violation of the facet down at the L5-S1 disc. Assessment/plan: Patient with a couple different things going on here. #1 he is in the recovery phase of a C5-6 C6-7 ACDF for severe myelopathy. He feels like he is at least 25% better. He said he walked 5 miles the other day 2-1/2 at 1 point took a 2-hour rest and then 2-1/2 more miles. He feels like he is definitely heading in the right direction with his myelopathy. At this point his complaintis of back pain and buttock and hamstring pain on the left. He does have some stenosis on the left at L5-S1. I explained to him that options for this surgically would be a TLIF at L5-S1 to take that facet completely down and then fuse that level. He is not interested in that at this point. His footdrop has been going on now for about 10 months I am not sure if we were to do an operation on him at this point it would help that or not. But that is really the only thing that would give him a chance of recovery of that. At this point he just darted some physical therapy. We are going to have himcontinue with physical therapy and I will see him back in 6 weeks for his lumbar spine and we can discuss more if we want to progress forward doing anything for his low back. He is smoking. I think that would need to stop before we could fuse his lumbar spine. Were also going to see him back for his neck at another visit and we will get x-rays of his neck. We are going to order cervical and thoracic MRIs of his spine and hopefully he will get those before he follows up for his neck. He has beenslow to have improvement with his myelopathy, which is not terribly uncommon in a lot of folks, butthe question is is he adequately decompressed in the cervical spine so we will try to assess that. [facility] Work Phone: 1(251) 515-675611-26-2024 Hospital Discharge instructions* Discharge Instructions* Nayan Hale PA-C - 02/08/2024 11:23 PM EST Please follow closely with your primary team. Return immediately for new or worsening symptoms. * Attachments The following attachments cannot be sent through Care Everywhere. * Back Pain (Russian) [facility] History of Present illness Narrative* Sha Foster [...] as if he does. documented in this [facility] Work Phone: 1(147) 416-340911-16-2024 Hospital Discharge instructions* Discharge Instructions* Zuleyka Bryant DO - 01/29/2024 9:[address] [...] sent through Care Everywhere. * Fecal Incontinence (Russian) * Low Back Pain: Exercises (Russian) documented in this encounterBon [facility] History of Present illness Narrative* Sha Foster MD - 12/14/2023 11:00 AM EDT Harman Jamil is a 43 y.o. male who presents for follow-up for low back pain. HPI: 43-year-old gentleman here for follow-up low back pain. [facility]. He did not get into any [...] the lumbar spine from August [address] [facility] was reviewed today. Assessment: 43-year-old gentleman here for [facility] follow-up low back pain and leg [...] buckle. He did have a CT at [facility] of his lumbar spine that showed that [...] split dictation. -Dev Martel PA-C In a swni-az-zuix encounter, I performed a history and physical [...] Foster MD Orthopedic surgery [facility] Phone: [phone]) 711-713209-29-2024 Hospital Discharge instructions* Discharge Instructions* Aarti Stokes APRN - CNP - 12/12/2023 7:08 PM EDT Continue follow with your orthopedic doctor on December Referral for pain management recommended for chronic back pain. * Attachments The following attachments cannot be sent through Care Everywhere. * Back Pain (Russian) [facility] History of Present illness Narrative* Sha Foster [...] anything for this recently. He is taking mqky-wwp-qyzikeo anti-inflammatories which are not helping. Plan: For complete plan and/or surgical details, please refer to Dr. Foster's portion of this split dictation. In a asxt-cy-tdqy encounter, I performed a history and physical [...] back after the MRI. [facility] Work Phone: [phone]) 692-370308-28-2023 Discharge summary Author Gerson Perez [facility] November 09, 2022 3:03pm Note Date/Time November 09, 2022 2: 54pm [facility] Medical Records Department [address] [place] [address] Emergency Department Summary 11/09/22 MR#: [id number] Acct: [id number] Name: HARMAN JAMIL Rep #:[id number] : 1980 42 From: Gerson Perez MD PCP: Dr. Josafat Tinoco, DO Status:PRE ER Location: ED HPI History of [...] that those symptoms are not there now. PFSH PFSH Medical History ADHD Cervical radiculopathy Sciatica Home [...] Qty: 10 0RF Primary Care Provider: Josafat Tinoco Referrals: Josafat Tinoco DO [Primary Care Provider] - As Needed Disposition Disposition: Home, Self Care What to do if you have Problems For any increased pain, shortness of breath, bleeding, nausea or vomiting, chestpain, or any unexpected problems, contact your Primary Care Provider. Call [facility] ([phone]) or report to the closest Emergency Room. Call 911 if necessary. 11/09/22 1503 <Electronically signed by Gerson Perez MD> Cosigner Signature (if applicable): CC: Dr. Josafat Tinoco, DO ~ Signed [facility] Work Phone: Evaluation noteNo assessment information available [facility] Work Phone: Evaluation note* Diagnosis Lumbar pain- Primary Lumbago Lumbar radiculopathy Thoracic or lumbosacral neuritis or radiculitis, unspecified Lumbar pain Lumbago documented in this [facility] Work Phone: Evaluation note* Diagnosis Lumbar pain Lumbago documented in this encounter [facility] Work Phone: Evaluation note* Diagnosis Lumbar pain- Primary Lumbago Lumbar radiculopathy Thoracic or lumbosacral neuritis or radiculitis, unspecified documented in this encounter [facility] Work Phone: Evaluation note* Diagnosis Chronic bilateral low back pain with bilateral sciatica- Primary Incontinence of feces with fecal urgency [facility] Diagnosis Back pain with radiculopathy- Primary documented in this encounter [facility] Work Phone: Evaluation note* Diagnosis Lumbosacral radiculitis- Primary Thoracic or lumbosacral neuritis or radiculitis, unspecified documented in this encounter [facility] [employer] note* Diagnosis Back pain with radiculopathy documented in this encounter [facility] Work Phone: Evaluation note* Diagnosis Cervical radiculopathy Brachial neuritis or radiculitis nos documented in this encounter [facility] Work Phone: Evaluation note* Diagnosis Spinal stenosis, cervical region- Primary Spinal stenosis Spinal stenosis, unspecified region other than cervical Spinal stenosis, cervical region Abscess of axilla, left Spinal stenosis Spinal stenosis, unspecified region other than cervical Spinal stenosis, cervical region documented in this encounter [facility] Work Phone: Evaluation note* Diagnosis Cervical radiculopathy- Primary Brachial neuritis or radiculitis nos Cervical radiculopathy Brachial neuritis or radiculitis nos documented in this encounter [facility] Work Phone: Evaluation note* Diagnosis Cervical radiculopathy Brachial neuritis or radiculitis nos documented in this encounter [facility] Work Phone: Evaluation note* Diagnosis Acute exacerbation of chronic low back pain- Primary documented in this encounter [employer] [facility]* Diagnosis Accidental fall, initial encounter- Primary Neck sprain, initial encounter Lumbar radiculopathy, acute Thoracic or lumbosacral neuritis or radiculitis, unspecified Leg weakness, bilateral Other musculoskeletal symptoms referable to limbs documented in this encounter [employer] [facility]* Diagnosis Cervical radiculopathy- Primary Brachial neuritis or radiculitis nos documented in this encounter [facility] Work Phone: Evaluation note* Diagnosis Cervical radiculopathy Brachial neuritis or radiculitis nos documented in this encounter [facility] Work Phone: Evaluation note* Diagnosis Sciatica of left side- Primary Sciatica documented in this encounter [facility] [employer] note* Diagnosis Preventative health care- Primary Routine general medical examination at a health care facility Other chronic pain Vitamin D deficiency Attention deficit hyperactivity disorder (ADHD), unspecified ADHD type Hyperlipidemia, unspecified hyperlipidemia type Bipolar affective disorder, remission status unspecified (Multi) Hyperverbal speech documented in this encounter [facility] Work Phone: Evaluation note* Diagnosis Acute exacerbation of chronic low back pain- Primary documented in this encounter [employer]* Diagnosis Cervical myelopathy- Primary Cervical spondylosis with myelopathy Back pain with radiculopathy documented in this encounter [facility] Work Phone: Evaluation note* Diagnosis Back pain with radiculopathy documented in this encounter [facility] Work Phone: [phone] note* Diagnosis Herniated nucleus pulposus, L4-5- Primary [...] ankle and foot documented in this encounter [facility] Work Phone: Evaluation note* Diagnosis Herniated nucleus pulposus, L4-5 Displacement of lumbar intervertebral disc without myelopathy Pain of left lower extremity Weakness of left foot Neurogenic bowel Left foot drop Other acquired deformity of ankle and foot documented in this encounter [facility] Work Phone: Evaluation note* Diagnosis Herniated nucleus pulposus, L4-5- Primary Displacement of lumbar intervertebral disc without myelopathy Paresthesia of upper extremity Spinal stenosis, cervical region Pain of left lower extremity Chronic bilateral low back pain with left-sided sciatica Spinal stenosis of cervical region Spinal stenosis in cervical region Weakness of left foot Neurogenic bowel Back pain with radiculopathy Left foot drop Other acquired deformity of ankle and foot Cervical myelopathy Cervical spondylosis with myelopathy documented in this encounter [facility] Work Phone: [phone] note* Diagnosis Myelopathy (Multi) Unspecified disease of spinal cord documented in this encounter [facility] Work Phone: [phone] Work Phone: [facility] Work Phone: Hospital Discharge instructions Additional Instructions Follow-up with your primary care provider. Return if feeling worse.[facility] Work Phone: Hospital Discharge instructions Additional Instructions Please be sure to keep your follow-up appointment with your surgeon on 21 May 2023.[facility] Work Phone: Reason for referral (narrative)No reason for referral information availableWMercer County Community Hospital Work Phone: Reason for visit Narrative* Imaging (Emergency) - Authorized Specialty Diagnoses / Procedures Referred By Contac t Referred To Contact Radiology Diagnoses Back pain with radiculopathy Procedures MR thoracic spine wo IV contrast Sha Foster MD [address] [facility], [address] [place] [address] Phone: tel: fax: Referral ID Status Reason Start Date Expiration Date Visits Requested Visits Authorized [id number] Authorized Perform Procedure 4 02/07/2025 1 1 [facility] Work Phone: reason for visit Narrative* Imaging (Emergency) - Authorized Specialty Diagnoses / Procedures Referred By Contac t Referred To Contact Radiology Diagnoses Back pain with radiculopathy Procedures MR lumbar spine w and wo IV contrast MR lumbar spine w IV contrast Sha Foster MD [address] [facility], [address] [place] [address] Phone: tel: fax: Referral ID Status Reason Start Date Expiration Date Visits Requested Visits Authorized [id number] Authorized Perform Procedure 4 02/07/2025 1 1 [facility] Work Phone: reason for visit Narrative* Imaging (Emergency) - Authorized Specialty Diagnoses / Procedures Referred By Contac t Referred To Contact Radiology Diagnoses Back pain with radiculopathy Procedures MR cervical spine wo IV contrast Sha Foster MD [address] [facility], [address] [place] [address] Phone: tel: fax: Referral ID Status Reason Start Date Expiration Date Visits Requested Visits Authorized [id number] Authorized Perform Procedure 4 02/07/2025 1 1 [facility] Work Phone: reason for visit Narrative* Auth/Cert Specialty Diagnoses / Procedures Referred By Contac t Referred To Contact Diagnoses SPINAL STENOSIS Procedures N/A Sha Foster MD [address] [facility], [address] [place] [address] Phone: tel: fax: [facility] [address] [place] [address] Referral ID Status Reason Start Date Expiration Date Visits Re quested Visits Authorized [id number] 1 1 [facility] Work Phone: reason for visit Narrative* Imaging (Routine) - Authorized Specialty Diagnoses / Procedures Referred By Contac t Referred To Contact Radiology Diagnoses Cervical radiculopathy Procedures XR cervical spine 2-3 views Sha Foster MD [address] [facility], [address] [place] [address] Phone: tel: fax: Referral ID Status Reason Start Date Expiration Date Visits Requested Visits Authorized [id number] Authorized Perform Procedure 4 03/07/2025 1 1 [facility] Work Phone: reason for visit Narrative* Imaging (Routine) - Authorized Specialty Diagnoses / Procedures Referred By Contac t Referred To Contact Radiology Diagnoses Cervical radiculopathy Procedures XR cervical spine 2-3 views Sha Foster MD [address] [facility], [address] [place] [address] Phone: tel: fax: Referral ID Status Reason Start Date Expiration Date Visits Requested Visits Authorized [id number] Authorized Perform Procedure 06/06/2024 06/06/2025 1 1 [facility] Work Phone: reason for visit Narrative* Imaging (Routine) - Authorized Specialty Diagnoses / Procedures Referred By Contac t Referred To Contact Radiology Diagnoses Herniated nucleus pulposus, L4-5 Pain of left lower extremity Weakness of left foot Neurogenic bowel Left foot drop Procedures MR lumbar spine wo IV contrast MR lumbar spine wo IV contrast Nighat Griffin MD [address] [facility] [address] [place] [address] Phone: tel: fax: Referral ID Status Reason Start Date Expiration Date Visits Requested Visits Authorized [id number] Authorized Perform Procedure 10/02/2024 10/02/2025 1 1 [facility] Work Phone: Summary Purpose Family History No [...] No June 15, 2021 8:39pm Power of Oyster Planter No June 15 8:39pm Advance Directive Response Recorded Date/ Time Living Will No August 19, 2021 1 :08pm Power of Oyster Planter No August 19, 2021 1:08pm Advance Directive Response Recorded Date/ Time Living Will No August 20, 2021 4 :43pm Power of Oyster Planter No August 20, 2021 4:43pm Advance Directive Response Recorded Date/ Time Living Will No June 16, 2022 10:19pm Power of Oyster Planter No June 16 10:19pm Advance Directive Response Recorded Date/ Time Living Will No November 09 3:32pm Power of Oyster Planter No November 09, 2 023 3:32pm Advance Directive Response Recorded Date/ Time Living Will No March 09 023 12:29pm Power of Oyster Planter No March 09, 2023 12:29pm Advance Directive Response Recorded Date/ Time Living Will No April 10 4:40pm Power of Oyster Planter No April 10, 2023 4:40pm Advance Directive Response Recorded Date/ Time Living Will No May 18, 2023 3:41pm Power of Oyster Planter No May 17 3:41pm Date Activated Date Inactivated Comments 02/24/2024 5:45 PM Question Answer Comments Plan of Care: Code Status Discussion Completed Decision Maker: Patient Date Activated Date Inactivated Comments 02/24/2024 5:45 PM Question Answer Comments Plan of Care: Code Status Discussion Completed Decision Maker: Patient Healthcare Agents on File Name Relationship Healthcare Agent [facility] Communication Sis Leona Friend Health Care Agent Healthcare Agents on File Name Relationship Healthcare Agent Relationshi p Communication Sis Rhodes Health Care Agent [id number] (Home) Healthcare Agents on File Name Relationship Healthcare Agent Relationshi p Communication Sis Rhodes Health Care Agent [id number] (Home) Healthcare Agents on File Name Relationship Healthcare Agent Relationshi p Communication Sis Rhodes Health Care Agent Advance Directive Response Recorded Date/ Time Do you have a Healthcare Power of Oyster Planter? No October 23, 2024 3:38pm Healthcare Agents on File Name Relationship Healthcare Agent Relationshi p Communication Sis Rhodes Health Care Agent Healthcare Agents on File Name Relationship Healthcare Agent Relationshi p Communication Sis Rhodes Health Care Agent Chief Complaint and Reason for Visit Chief [...] Referral Specialty Diagnoses / Procedures Referred By Contac t Referred To Contact Radiology Diagnoses Lumbar pain Lumbar radiculopathy Procedures MR lumbar spine w and wo IV contrast Sha Foster MD [address] [facility], [address] [place] [address] Referral ID Status Reason Start Date Expiration Date Visits Requested Visits Authorized [id number] Pending Review Perform Procedure 05/04/2023 05/03/2024 1 1 Specialty Diagnoses / Procedures Referred By Contac t Referred To Contact Physical Therapy Diagnoses Lumbar pain Lumbar radiculopathy Sha Foster MD [address] [facility], [address] [place] [address] Referral ID Status Reason Start Date Expiration Date Visits Requested Visits Authorized [id number] Pending Review Specialty Services Required 05/04/2023 05/03/2024 1 1 Specialty Diagnoses / Procedures Referred By Contac t Referred To Contact Radiology Diagnoses Lumbar pain Procedures XR lumbar spine complete 4+ views Sha Foster MD [address] [facility], [address] [place] [address] Referral ID Status Reason Start Date Expiration Date Visits Requested Visits Authorized [id number] Authorized Perform Procedure 05/04/2023 05/03/2024 1 1 Referral ID Status Reason Start Date Expiration Date Visits Requested Visits Authorized [id number] Pending Review Perform Procedure 12/14/2023 12/13/2024 1 1 Referral ID Status Reason Start Date Expiration Date Visits Requested Visits Authorized [id number] Pending Review Specialty Services Required 12/14/2023 12/13/2024 1 1 Specialty Diagnoses / Procedures Referred By Contac t Referred To Contact Anesthesiology Diagnoses Lumbar pain Lumbar radiculopathy Sha Foster MD [address] [facility], [address] [place] [address] Arielle Reeves MD [address] [place] [address] Referral ID Status Reason Start Date Expiration Date Visits Requested Visits Authorized [id number] Authorized Specialty Services Required 12/14/2023 12/13/2024 1 [...] DATE CREATED AUTHOR AUTHOR'S ORGANIZ ATION 03/02/2018 [facility] Healthcare DATE CREATED AUTHOR AUTHOR'S ORGANIZ ATION 12/06/2022 [facility] DATE CREATED AUTHOR AUTHOR'S ORGANIZ ATION 02/29/2024 [facility] DATE CREATED AUTHOR AUTHOR'S ORGANIZ ATION 06/29/2024 [facility] DATE CREATED AUTHOR AUTHOR'S ORGANIZ ATION 07/19/2024 [facility] DATE CREATED AUTHOR AUTHOR'S ORGANIZ ATION 07/24/2024 [facility] DATE CREATED AUTHOR AUTHOR'S ORGANIZ ATION 10/16/2024 [facility] DATE CREATED AUTHOR AUTHOR'S ORGANIZ ATION 10/22/2024 [facility] DATE CREATED AUTHOR AUTHOR'S ORGANIZ ATION 10/29/2024 [facility] DATE CREATED AUTHOR AUTHOR'S ORGANIZ ATION 11/01/2024 [facility] DATE CREATED AUTHOR AUTHOR'S ORGANIZ ATION 11/04/2024 [facility] Goals (unrecognized section and content) Goals may [...] Active Member Role Status Dates Dr. Josafat Tinoco DO Family Provider Active Dr. Josafat Tinoco DO Primary Care Provider Active Team Status: Inactive Member Role Status Dates Dr. Josafat Tinoco DO Primary Care Provider Active Dr. Alexis Baca MD Emergency Provider Active Team Status: Inactive Member Role Status Dates Dr. Josafat Tinoco DO Primary Care Provider Active Dr. Gerson Perez MD Emergency Provider Active Team Status: Inactive Member Role Status Dates Dr. Josafat Tinoco DO Primary Care Provider Active Dr. Gerson Perez MD Attending Provider, Emergency Provider Active Team Status: Inactive Member Role Status Dates Dr. Josafat Tinoco DO Primary Care Provider Active Dr. Emmett Cabrera DO Referring Provider, Emergency Provider Active Team Status: Inactive Member Role Status Dates Dr. Josafat Tinoco DO Primary Care Provider Active Dr. Emmett Cabrera DO Attending Provid er, Referring Provider, Emergency Provider Active Team Status: Inactive Member Role Status Dates Dr. Josafat Tinoco DO Primary Care Provider Active Dr. Raghu Sadler DO Emergency Provider Active Electrician'S Assistant Relationship Specialty Start Date End Date Josafat Tinoco DO [address] [facility], [address] [place] [address] PCP - [employer] PCP 08/13/21 Josafat Tinoco DO [address] [facility], [address] [place] [address] PCP - [facility] Medicaid PCP 06/13/22 Josafat Tinoco DO [address] [facility], [address] [place] [address] PCP - General Family Medicine 12/27/22 Electrician'S Assistant Relationship Specialty Start Date End Date Josafat Tinoco DO [address] [facility], [address] [place] [address] PCP - [facility] PCP 08/13/21 Josafat Tinoco DO [address] [facility], [address] [place] [address] PCP - [facility] Medicaid PCP 06/13/22 Josafat Tinoco DO [address] [facility], [address] [place] [address] PCP - General Family Medicine 12/27/22 Team Status: Inactive Member Role Status Dates Dr. Josafat Tinoco DO Primary Care Provider Active Dr. Raghu Sadler , DO Attending Provider, Isa reilly Active Team Status: Inactive Member Role Status Dates Dr. Josafat Tinoco DO Primary Care Provider Active Dr. Mynor Colon , DO Emergency Provider Active Electrician'S Assistant Relationship Specialty Start Date End Date Josafat Tinoco DO [address] [facility], [address] [place] [address] PCP - [employer] Medicaid PCP 06/13/22 Josafat Tinoco DO [address] [facility], [address] [place] [address] PCP - General Family Medicine 12/27/22 Dev Martel PA-C [address] [place] [address] PCP - [employer] PCP 06/14/23 Electrician'S Assistant Relationship Specialty Start Date End Date Josafat Tinoco DO [address] [place] [address] PCP - General 09/18/15 Electrician'S Assistant Relationship Specialty Start Date End Date Josafat Tinoco DO [address] [facility], [address] [place] [address] PCP - General Family Medicine 12/27/22 Dev Martel PA-C [address] [place] [address] PCP - [employer] PCP 06/14/23 Dev Martel PA-C [address] [place] [address] PCP - [employer] Medicaid PCP 12/14/23 Electrician'S Assistant Relationship Specialty Start Date End Date Josafat Tinoco DO [address] [place] [address] [id number] PCP - General 09/18/15 Electrician'S Assistant Relationship Specialty Start Date End Date Josafat Tinoco DO [address] [facility], [facility] [address] [place] [address] PCP - General Family Medicine 12/27/22 Dev Martel PA-C [address] [place] [address] PCP - [employer] PCP 06/14/23 Dev Martel PA-C [address] [place] [address] PCP - MA[employer]GER [employer] Medicaid PCP 12/14/23 Electrician'S Assistant Relationship Specialty Start Date End Date MattidiJosafat levin DO [address] [facility], [facility] [address] [place] [address] PCP - General Family Medicine 12/27/22 Dev Martel PA-C [address] [place] [address] PCP - [employer] PCP 06/14/23 Dev Martel PA-C [address] [place] [address] PCP - MANAGER [employer] Medicaid PCP 12/14/23 Electrician'S Assistant Relationship Specialty Start Date End Date Josafat Tinoco DO [address] [facility], [facility] [address] [place] [address] PCP - General Family Medicine 12/27/22 Dev Martel PA-C [address] [place] [address] PCP - [employer] PCP 06/14/23 Dev Martel PA-C [address] [place] [address] PCP - MA[employer]GER [employer] Medicaid PCP 12/14/23 Electrician'S Assistant Relationship Specialty Start Date End Date Josafat Tinoco DO [address] [facility], [address] [address] PCP - General Family Medicine 12/27/22 Dev Martel PA-C [address] [place] [address] PCP - [employer] PCP 06/14/23 Dev Martel PA-C [address] [place] [address] PCP - MANAGER [employer] Medicaid PCP 12/14/23 Electrician'S Assistant Relationship Specialty Start Date End Date Josafat Tinoco DO [address] [facility], [address] [address] PCP - General Family Medicine 12/27/22 Dev Martel PA-C [address] [place] [address] PCP - [employer] PCP 06/14/23 Dev Maretl PA-C [address] [place] [address] PCP - MA[employer]GER [employer] Medicaid PCP 12/14/23 Electrician'S Assistant Relationship Specialty Start Date End Date MattidiJosafat levin DO [address] [facility], [place] [address] [place] [address] PCP - General Family Medicine 12/27/22 Dev Martel PA-C [address] [place] [address] PCP - [employer] PCP 06/14/23 Dev Martel PA-C [address] [place] [address] PCP - MANAGER [employer]LECT[employer] Medicaid PCP 12/14/23 Electrician'S Assistant Relationship Specialty Start Date End Date Josafat Tinoco DO [address] [facility], [facility] [address] [place] [address] PCP - General Family Medicine 12/27/22 Dev Martel PA-C [address] [place] [address] PCP - [employer] PCP 06/14/23 Dev Martel PA-C [address] [place] [address] PCP - MANAGER [employer] Medicaid PCP 12/14/23 Electrician'S Assistant Relationship Specialty Start Date End Date Josafat Tinoco DO [address] [place] [id number] PCP - General 09/18/15 Electrician'S Assistant Relationship Specialty Start Date End Date Josafat Tinoco DO PCP - General 09/18/15 Electrician'S Assistant Relationship Specialty Start Date End Date Josafat Tinoco DO PCP - General 09/18/15 Electrician'S Assistant Relationship Specialty Start Date End Date Josafat Tinoco DO [address] [facility], [address] [address] PCP - General Family Medicine 12/27/22 Dev Martel PA-C [address] [place] [address] PCP - [employer] PCP 06/14/23 Dev Martel PA-C [address] [place] [address] PCP - MANAGER ELECTR[employer] Medicaid PCP 12/14/23 Electrician'S Assistant Relationship Specialty Start Date End Date Josafat Tinoco DO PCP - General 09/18/15 Electrician'S Assistant Relationship Specialty Start Date End Date Josafat Tinoco DO [address] [facility], [address] [address] PCP - General Family Medicine 12/27/22 Dev Martel PA-C [address] [place] [address] PCP - [employer] PCP 06/14/23 Dev Martel PA-C [address] [place] [address] PCP - MANAGER ELECT[employer] Medicaid PCP 12/14/23 Electrician'S Assistant Relationship Specialty Start Date End Date Josafat Tinoco DO [address] [facility], [address] [address] PCP - General Family Medicine 12/27/22 Dev Martel PA-C [address] [place] [id number] PCP - [employer] PCP 06/14/23 Dev Martel PA-C [address] [place] [address] PCP - MANAGER ELECT[employer] Medicaid PCP 12/14/23 Electrician'S Assistant Relationship Specialty Start Date End Date Josafat Tinoco DO [address] [facility], [address] [address] PCP - General Family Medicine 12/27/22 Dev Martel PA-C [address] [place] [address] PCP - [employer] PCP 06/14/23 Dev Martel PA-C [address] [place] [address] PCP - MANAGER [employer] Medicaid PCP 12/14/23 Team Status: Active Member Role/Relationship Status Dates Dr. Josafat Tinoco DO Primary Care Provider Active Team Status: Inactive Member Role/Relationship Status Dates Dr. Josafat Tinoco DO Primary Care Provider Active Start: October 23, 2024 End: October 23, 2024 Dr. Caleb Smith DO Emergency Provider Active Start: October 23, 2024 End: October 23, 2024 Electrician'S Assistant Relationship Specialty Start Date End Date Josafat Tinoco DO [address] [facility], [address] [address] PCP - General Family Medicine 12/27/22 Dev Martel PA-C [address] [place] [address] PCP - [employer] PCP 06/14/23 Dev Martel PA-C [address] [place] [address] PCP - [facility] Medicaid PCP 12/14/23 Electrician'S Assistant Relationship Specialty Start Date End Date Josafat Tinoco DO [address] [facility], [address] [address] PCP - General Family Medicine 12/27/22 Dev Martel PA-C [address] [place] [address] PCP - [employer] PCP 06/14/23 Dev Martel PA-C [address] [place] [address] PCP - [facility] Medicaid PCP 12/14/23 Reason for Visit (unrecogniz ed section and content) Reason Comments Pain xrays Specialty Diagnoses / Procedures Referred By Contac t Referred To Contact Radiology Diagnoses Lumbar pain Procedures XR lumbar spine complete 4+ views Sha Foster MD [address] [facility], [address] [place] [id number] Referral ID Status Reason Start Date Expiration Date Visits Requested Visits Authorized [id number] Authorized Perform Procedure 05/04/2023 05/03/2024 1 1 Reason Comments Follow-up MRI was denied due t o lack of therapy, did not [facility] [...] well Specialty Diagnoses / Procedures Referred By Contac t Referred To Contact Neurology Diagnoses Back pain with radiculopathy Sha Foster MD [address] [facility], [address] [place] [address] Phone: tel: fax: Referral ID Status Reason Start Date Expiration Date Visits Requested Visits Authorized [id number] Authorized Specialty Services Required 4 02/07/2025 1 1 Reason Comments Back Pain Specialty Diagnoses / Procedures Referred By Contac t Referred To Contact Pain Medicine Diagnoses Back pain with radiculopathy Dev Martel PA-C [facility] [place] [address] Phone: tel: [place]: [place] [address] [facility] [address] Phone: tel: fax: Referral ID Status Reason Start Date Expiration Date Visits Requested Visits Authorized [id number] Authorized Specialty Services Required 06/27/2024 06/27/2025 1 1 Reason Comments New Patient Visit Evaluation of [facility]. Reason Comments Follow-up F/U MRI done at Ordered Prescriptions (unrec ognized section and content) [...] IntraVENous, ONCE, 1 dose, On 01/29/24 at 203, Do not administer for more than 5 days. 2038 (Given - Provid er: Flavio Moser RN) orphenadrine (NORFLEX) injection 60 mg (COMPLETED) 60 mg, IntraMUSCular, ONCE, 1 dose, On 01/29/24 at 2037 2038 (Given - Provid er: Flavio Moser RN) oxyCODONE-acetaminophen (PERCOCET) 5-325 MG per tablet 1 tablet (COMPLETED) 1 tablet, Oral, ONCE, 1 dose, On 01/29/24 at 2127, Maximum dose of acetaminophen is 4000 mg [...] at 2224 2230 (Given - Provider: Laurie Alfonso, GIA) oxyCODONE-acetaminophen (PERCOCET) 5-325 MG per tablet 1 tablet (COMPLETED) 1 tablet, Oral, ONCE, 1 dose, On Wed02/08/24 at 2322, Maximum dose of acetaminophen is 4000 mg from all sources in 24 hours. 2323 (Given - Provider: Laurie Alfonso, GIA) predniSONE (DELTASONE) tablet 60 mg (COMPLETED) 60 mg, Oral, ONCE, 1 dose, On Wed02/08/24 at 2224 2230 (Given - Provider: Laurie Alfonso RN) Scheduled Medication Order 02/24/2024 02/25/2024 02/26/2024 acetaminophen (Tylenol) tablet 650 mg (COMPLETED) 650 mg, oral, Once, On Angelita 02/24/24 [...] preference? Yes 1805 (Given - Provider: Susana Estrada RN) 0002 (Given - Provider: Haley Laboy RN)0620 (Given - Provider: Haley Laboy RN)1212 (Given - Provider: Felipe Acuña, GIA)2025 (Given - Provider: Rafa Kwan, GIA) 0042 (Given - Provider: Rafa Kwan RN)0540 (Given - Provider: Rafa Kwan RN)1215 (Due)1815 (Due) ceFAZolin (Ancef) 2 g in dextrose (iso) IV 100 mL (COMPLETED) 2 g, intravenous, Administer over 30 Minutes, Once, On Angelita 02/24/24 at 0545, For 1 dose, Intraprocedure, premix bag, Dosing of this medication varies based on severity of illness. Does this patient have sepsis or concern for sepsis (probable or documented infection plus systemic manifestations of infection)? No, Suspected Indication (Select all that apply): Surgical Prophylaxis, Indications: Surgical Prophylaxis 1259 (Given - Provider: Pranay Lopez, RESERVOIR ENGINEER-RENTAL CAR PORTER)1613 (Anesthesia Volume Adjustment - Provider: Kris Madrid [...] Surgical Prophylaxis 2009 (New Bag - Provider: Haley Laboy RN)204 (Stopped - Provider: Haley Laboy RN) 0401 (New Bag - Provider: Haley Laboy RN)0431 (Stopped - Provider: Haley Laboy RN) celecoxib (CeleBREX) capsule 200 mg (COMPLETED) 200 mg, oral, Once, On Angelita 02/24/24 at 0115, For 1 dose, Preprocedure, 1 hour prior to incision Capsules may be opened and sprinkled on a spoonful of cold or room temperature applesauce. 1211 (Given - Provider: Elisha Bruce RN) oxygen (O2) therapy inhalation, Continuous - , First dose on Angelita 24 at 1815, Titrate supplemental oxygen to maintain [...] RN)1109 (Stopped - Provider: Susana Estrada RN)1207 (MAR Hold - Provider: Automatic Transfer Provider - Reason: Unreviewed Transfer Orders)1300 (Dose Auto Held - Provider: Automatic Transfer Provider)1908 (MAR Unhold - Provider: Veda Polk MD)2052 (New Bag - Provider: Haley Laboy RN) 0052 (Stopped - Provider: Haley Laboy RN)0511 (New Bag - Provider: Haley Laboy RN)0917 (Stopped - Provider: Felipe Acuña RN) polyethylene glycol (Glycolax, Miralax) packet 17 g 17 g, oral, Daily, First dose on Wed02/24/24 at 1815, Bowel Regimen - for prevention [...] Felipe Acuña RN)2026 (Given - Provider: Rafa Kwan RN) 0948 (Given - Provider: Felipe Acuña RN)2100 [...] Prophylaxis: Spinal 2010 (Given - Provider: Haley Laboy RN) vancomycin (Vancocin) 1,000 mg in dextrose 5% [...] infusing)0323 (Stopped - Provider: Haley Laboy RN)1207 (MAY Hold - Provider: Automatic Transfer [...] fluids. 1759 (New Bag - Provider: Susana Estrada, RN)2304 (Rate/Dose Verify - Provider: Haley Laboy, GIA) PRN Medication Order 02/24/2024 02/25/2024 02/26/2024 ALPRAZolam (Xanax) tablet 0.5 mg 0.5 mg, oral, Nightly PRN, anxiety, Starting on Angelita 02/24/24 at 2002 2009 (Given - Provider: Haley Laboy, GIA) 2025 (Given - Provider: Rafa Kwan, GIA) cyclobenzaprine (Flexeril) tablet 10 mg 10 mg, oral, 3 times daily PRN, muscle spasms, Starting on Angelita 02/24/24 at 1745, Indications: muscle spasm 2009 (Given - Provider: Haley Laboy RN) 1211 (Given - Provider: Felipe Acuña, GIA)2025 (Given - Provider: Rafa Kwan, GIA) dextrose 50 % injection 12.5 g 12.5 g, intravenous, Every 15 min PRN, For blood glucose 41 to 70 mg/dL, Starting on Angelita 24 at 1745, May repeat until blood glucose [...] preference? Yes 165 (Given - Provider: Linda Galarza, GIA)1700 (Given - Provider: Linda Galarza RN) glucagon (Glucagen) injection 1 mg 1 mg, intramuscular, Every 15 min PRN, low blood sugar - see comments, For blood glucose less than or equal to 70 mg/dL and no IV access, Starting on Angelita 24 at 1745, Give until blood glucose is [...] of dose. 1624 (Given - Provider: Linda Galarza, GIA)1629 (Given - Provider: Linda Galarza RN)1635 (Given - Provider: Linda Galarza RN)1643 (Given - Provider: Linda Galarza RN - Comment: Not given. Realized only ordered for 3 doses. Verified with Dana Alcala and wasted.) hydrOXYzine pamoate (Vistaril) capsule 25 mg 25 mg, oral, Every 6 hours PRN, anxiety, Starting on Wed02/25/24 at 1456 1549 (Given - Provider: Felipe Acuña, GIA) lubricating eye drops ophthalmic solution 1 drop 1 drop, Left Eye, As needed, dry eyes, Starting on Angelita 02/24/24 at 1908 2009 (Given - Provider: Haley Laboy RN) meperidine PF (Demerol) injection 12.5 mg (CANCELED) 12.5 mg, intravenous, Every 10 min PRN, shivering, Starting on Angelita 02/24/24 at 1612, Recovery (only) 1614 (Given - Provider: Linda Galarza RN) morphine injection 2 mg 2 mg, intravenous, Every 2 hour PRN, pain breakthrough, use oral first and only use IV if oral is ineffective or cannot take oral. Use as first line if no PO med ordered., Starting on Angelita 02/24/24 at 1745 naloxone (Narcan) injection 0.2 mg [...] on Angelita 24 at 1745, 1st Line. Give IV if [...] Haley Laboy RN)1048 (Given - Provider: Felipe Acuña RN)1549 (Given - Provider: Felipe Acuña, GIA)2024 (Given - Provider: Rafa Kwan RN) 0041 (Given - Provider: Rafa Kwan RN)0948 (Given - Provider: Felipe Acuña, GIA) oxyCODONE (Roxicodone) immediate release tablet 2.5 mg 2.5 mg, oral, Every 4 hours PRN, pain mild (1-3), first line, Starting on Angelita 24 at 1745, If ordered PRN for pain, nurse is permitted to administer this medication for higher pain scores based on patient preference? Yes oxyCODONE (Roxicodone) immediate release tablet 5 mg 5 mg, oral, Every 4 hours PRN, pain mild (1-3), first line, Starting on Nagelita 02/24/24 at 1745, When able to take [...] Angelita 02/24/24 at 1745, For 1 dose sodium chloride 0.9 % irrigation solution (CANCELED) As needed, Starting on Angelita 02/24/24 at 1334, Intraprocedure 1334 (Given - Provider: Sha Foster MD) thrombin-bovine (JMI) 5,000 unit topical solution (CANCELED) As needed, Starting on Angelita 02/24/24 at 1334, Intraprocedure 1334 (Given - Provider: Sha Foster MD - Comment: CERVICAL SPINE) Linked Groups Order Group 1: ondansetron (Zofran) tablet 4 mgJump to med 4 mg, oral, Every 8 hours PRN, nausea/vomiting, first line, Starting on Angelita 02/24/24 at 1745, 1st Line. Use oral route [...] 30 mg, IntraMUSCular, ONCE, 1 dose, On Angelita 06/15/24 at 2144, Do not administer for more than 5 days. 2157 (Given - Provid er: Renay Davila RN) lidocaine 4 % external patch 1 patch 1 patch, TransDERmal, Administer over 12 Hours, NOW, On Angelita 06/15/24 at 2144, For 1 dose, Apply patch to left lower back. The molding line operator's recommendations for the number of patches that can be applied within a 24-hour period varies from 1 to 4 times daily and the duration of application varies from 8 to 24 hours; refer to the molding line operator's labeling for product-specific recommendations. 2157 (Patch Applied [...] 5 days. 2351 (Given - Provider: Aarti Solano, GIA) methocarbamol (ROBAXIN) tablet 750 mg (COMPLETED) 750 mg, Oral, Once, 1 dose, On Angelita 07/13/24 at 2301 2353 (Given - Provider: Aarti Solano, GIA) morphine sulfate (PF) injection 4 mg (COMPLETED) [...] at 2301 2351 (Given - Provider: Aarti oSlano RN) sodium chloride 0.9 % bolus 500 [...] BE BASED ON THE PRIMARY CLINICAL RECORDS. [employer] provides no warranty or guarantee of the accuracy or completeness of information in this document.
[2024-11-11] MEDS: Ketorolac 30 MG/ML Syringe IV (02:13)
[2024-11-11 02:16] VITALS: BP 132/99; PULSE 75; RESP 16; TEMP 36.6; O2SAT 99
== END 2024-11-11 02:17 | disposition home or self-care (01) ==
PROVIDERS: Emergency Provider Surgery; PCP Family Medicine; Visit Provider Surgery
DX: G89.29 Other chronic pain (principal); M54.9 Dorsalgia, unspecified; F17.210 Nicotine dependence, cigarettes, uncomplicated; X50.0XXA Overexertion from strenuous movement or load, initial encounter; Y93.89 Activity, other specified; Z87.39 Personal history of other diseases of the musculoskeletal system and connective tissue
CPT/HCPCS: 96374; 99282

== ENCOUNTER 2024-12-17 21:46 | Emergency (ER) | payer MEDICAID, SELFPAY ==
[2024-12-17 21:47] VITALS: BP 145/96; PULSE 80; RESP 18; TEMP 35.5; O2SAT 100; BMI 25.0
--- NOTE | 2024-12-17 22:00 | ED.RN ---
This RN walked into room to assess patient. Patient had hand down the front of his pants. When starting assessment, patient states he's been celibate for 33 months and just have some concerns. Patient taken to bathroom to provide a urine sample. primer waterproofing machine adjuster Radha states she walked into the bathroom patient was in and patient was repeatedly rubbing hands together without water. Patient came back to room stating he is unable to provide a urine sample at this time due to someone walking in right as I was about to start my stream and now I'm all clogged up.
--- NOTE | 2024-12-17 22:36 | EDS_ITS ---
HPI History of Present Illness Chief Complaint: Male Pain/Injury Informant: patient Narrative Narrative: Patient is a 44-year-old male with history of spinal surgeries with ongoing deficits (left foot drop and sensation/temperature deficits on the right side up to his chest) presenting for concern of HPV infection. Patient states that he has been celibate for 33 months but is going into a new relationship. He has noticed some spots on the shaft of his penis and at the base and was concerned that he could have HPV and wanted to be evaluated before he advanced his current relationship. He is not sure how long they have been there but notes that they have been there for some time. 1 at the base of his penis seems raised which is different than his other ones and that concerned him he denies any associated pain, dysuria or penile discharge. Denies any testicular/scrotal pain or swelling. Had a possible exposure to HPV 5 years ago. Does note that he chronically masturbates approximately 7 times a day. PFSH PFS Medical History ADHD Sciatica Cervical radiculopathy Home Medications ?Medication ?Instructions ?Recorded ?Last Taken ?Type gabapentin 300 mg capsule 600 mg PO Q8H 01/04/24 Unkno wn History baclofen 10 mg tablet 20 mg PO Q8H 10/23/24 Unknow n History cholecalciferol (vitamin D3) 125 125 mcg PO DAILY 10/13 04/08 Unknown History mcg (5,000 unit) capsule chlorzoxazone 500 mg tablet 500 mg PO 4X/DAY PRN PRN m uscle 11/11/24 Unknown Hi story spasm Allergy/AdvReac Type Severity Reaction Status Date / Time No Known Allergies Allergy Verified 12/17/24 21:48 Family History no significant family his Surgical History Hx of tonsillectomy Previous back surgery Social History household members: none Smoking Status: Current every day smoker tobacco type: cigarettes alcohol intake: current alcohol intake frequency: other substance use type: marijuana ROS ROS ED Constitutional Constitutional ED: Denies chills or fever(s) Genitourinary Genitourinary ED: Denies dysuria, hematuria or urinary frequency Integumentary Reports rash and other Details: Brown bumps on the shaft of the penis and at the base Neurologic Neurologic: Reports other Details: Chronic left foot drop and paresthesias to the right side of the body?no acute change Psychiatric Psychiatric: Reports anxiety; Denies depression EXAM Physical Exam Const Vital Signs: 12/17/24 21:47 Temperature 96 F L Temperature Source Temporal Pulse Rate 80 Respiratory Rate 18 Blood Pressure 145/96 H Blood Pressure Mean 112 Pulse Ox 100 Positive well nourished and well developed General Appearance ED: well developed and NAD HEENT Reports moist mucous membranes Neck supple Resp normal respiratory effort and clear to auscultation bilaterally Cardio regular rate and regular rhythm GI non-tender and non-distended Narrative: Chaperoned exam performed?normal external genitalia. Circumcised. Patient has some scattered brown slightly oblong raised lesions on the shaft of the penis at the base more consistent with nevi. There is some slight scarring/pockets of the right groin consistent with prior ingrown hairs/folliculitis Extremity normal to inspection Neuro oriented x3 Sensorium / Orientation: alert Psych Mood & Affect: anxious Thought Process: normal thought process Thought Content: normal thought content Skin Skin Narrative: See exam MDM MDM MDM Narrative Medical decision making narrative: Patient is evaluated for lesions on his penis and concern for possible STI. Differential includes is not limited to nevi, HPV and HSV. Physical exam is highly consistent with nevi. Per his request will test urine for GC/chlamydia. Is offered HIV and syphilis testing but patient declines. He is otherwise well-appearing albeit anxious. Is given reassurance. Encouraged follow-up with family doctor and/or dermatology. Given return precautions. Will be contacted with GC/committee results. Patient discharged home. Contacted as his GC chlamydia test were negative. Urinalysis not consistent with infection Lab Data Labs: Laboratory Results - last 24 hr 12/17/24 22:45 Urine Color Yellow Urine Clarity Sl. Cloudy Urine pH 5.0 Ur Specific [place] 1.025 Urine Protein 30 H Urine Glucose (UA) Normal Urine Ketones Negative Urine Occult Blood 10 H Urine Nitrite Negative Urine Bilirubin Negative Urine Urobilinogen Normal Ur Leukocyte Esterase Negative Urine RBC 0 SEEN Urine WBC 0 SEEN Ur Squamous Epith Cells 0 SEEN Urine Bacteria 0 SEEN Urine Mucus 0 SEEN Discharge Plan Triage Chief Complaint: Male Pain/Injury ED Provider: Nathalie Manning Dx/Rx/DC Orders Clinical Impression: Nevus of shaft of penis Instructions: Monitoring Moles Prescriptions: No Action baclofen 10 mg tablet 20 mg PO Q8H cholecalciferol (vitamin D3) 125 mcg (5,000 unit) capsule 125 mcg PO DAILY gabapentin 300 mg capsule 600 mg PO Q8H chlorzoxazone 500 mg tablet 500 mg PO 4X/DAY PRN PRN (Reason: muscle spasm) Primary Care Provider: Josafat Davis Referrals: Josafat Davis DO [Primary Care Provider, Medical] Dhaval Sales MD [Med Staff - Lithographic Camera Operator, Dermatology] Activity Restrictions/Additional Instructions: The spots on your genitalia are most consistent with moles (medical term is nevus). I do recommend follow-up with dermatology of abundance of caution. Will contact you with your gonorrhea and Chlamydia results. Print Language: Luxembourger Disposition Disposition: Home, Self Care Discharge Date/Time: 12/17/24 23:01
--- OUTSIDE RECORDS SUMMARY | 2024-12-17 22:41 | XMS RPT_ITS | CCD ---
Author Organization [facility] ion [facility] Care Team Providers Care Reimbursement Representative Name Role Phone BRANCH, TOM Unavailable Unavailable DEGIDIO, JOSAFAT R Unavailable Unavailable CRISTIANSHA Unavailable Unavailable DEGIDIO, JOSAFAT R Unavailable Unavailable TUAN ALBARADO Unavailable Unavailable DEGIDIO, JOSAFAT R Unavailable Unavailable CRISTIANSHA Unavailable Unavailable DEGIDIO, JOSAFAT R Unavailable Unavailable CRISTIANSHA Unavailable Unavailable CRISTIANSHA KIM Unavailable Unavailable DEGIDIO, JOSAFAT R Unavailable Unavailable CRISTIANSHA SOTELO Unavailable Unavailable DEGIDIO, JOSAFAT R Unavailable Unavailable Cristian, Dr. Sha Rice Attending Unavai lable Cristian, Dr. Sha Rice Attending Unavai lable Degidio DO, Josafat R Unavailable Degidio DO, Josafat R Unavailable [phone] Degidio DO, Josafat R Primary Care Provider [phone] Asif Martel PA-Cson E Unavailable [phone] Degidio DO, Josafat R Primary Care Provider [phone] Tahmina REICH Dev E Unavailable Degidio DO, Josafat R Primary Care Provider Degidio DO, Josafat R Primary Care Provider Asif Martel PA-Cson E Unavailable Almartalonzo REICH Dev E Unavailable DEGIDIO, JOSAFAT R Primary Care Unavailable [...] DEGIDIO, JOSAFAT R Primary Care Unavailable Degidio , Dr. Maurice Primary Care Provider [phone] Luis GOULD, Dr. Ellis Emergency Provider [phone] NIGHAT GRIFFIN Attending Unavailable DEGIDIO, JOSAFAT R Primary Care Unavailable NIGHAT GRIFFIN Attending Unavailable DEGIDIO, JOSAFAT R Primary Care Unavailable DEGIDIO, JOSAFAT R Attending Unavailable DEGIDIO, JOSAFAT R Primary Care Unavailable RADHA DIXON Attending Unavailable SHA FOSTER Referring Unavailable DEGIDIO, JOSAFAT R Primary Care Unavailable SHA FOSTER Admitting Unavailable SHA FOSTER Attending Unavailable SHA FOSTER Referring Unavailable DEGIDIO, JOSAFAT R Primary Care Unavailable Smith , Dr. Ellis Attending Provider [phone] Dr. Eduardo Mcdnoald DO Emergency Provider Degidio, Josafat Primary Care Unavailable Eduardo Mcdonald Attending Unavailabl e Degidio, Josafat Primary Care Unavailable Kehinde Cota Attending Unavailable Degidio, Josafat Primary Care Unavailable Caleb Smith Attending Unavailable Degidio, Josafat Primary Care Unavailable Raghu Sadler Attending Unavailable Degidio, Josafat Primary Care Unavailable Demetrius Andrew Attending Unavailable ZURI MELO Attending Unavailable NIGHAT GRIFFIN Referring Unavailable DEGIDIO, JOSAFAT R Primary Care Unavailable NIGHAT GRIFFIN Referring Unavailable DEGIDIO, JOSAFAT R Primary Care Unavailable ZURI MELO Attending Unavailable NIGHAT GRIFFIN Referring Unavailable DEGIDIO, JOSAFAT R Primary Care Unavailable SERNIGHAT FERMIN Referring Unavailable DEGIDIO, JOSAFAT R Primary Care Unavailable ZURI MELO Attending Unavailable SERELS, NIGHAT Referring Unavailable DEGIDIO, JOSAFAT R Primary Care Unavailable SERELS, NIGHAT Referring Unavailable DEGIDIO, JOSAFAT R Primary Care Unavailable ZURI MELO Attending Unavailable SERELS, NIGHAT Referring Unavailable DEGIDIO, JOSAFAT R Primary Care Unavailable ZURI MELO Attending Unavailable SERELS, NIGHAT Referring Unavailable DEGIDIO, JOSAFAT R Primary Care Unavailable SERELS, NIGHAT Referring Unavailable DEGIDIO, JOSAFAT R Primary Care [...] Unavailable DEGIDIO, JOSAFAT R Primary Care Unavailable PARRISH TALBERT Attending Unavailable PARRISH TALBERT Referring Unavailable DEGIDIO, JOSAFAT R Primary Care Unavailable Allergies Allergy Classification Reported Allergen(s) Allergy Type Date of Onset Reaction(s) Facility (1 source) ALLERGIES NOT ON FILE; Translations: [ALLERGIES NOT ON FILE] Propensity to adverse reactions (disorder) [facility] Repository Medications Current Medications Medication Drug Class(es) Dates Sig (Normalized) Sig (Original) ALPRAZolam 0.5 mg oral tablet (1 source) Benzodiazepine Start: 02-24-2024 take 0.5 mg by mouth once daily as needed for anxiety 0.5 mg, oral, Nightly PRN, anxiety, Starting on Angelita 02/24/24 at 2002 baclofen 10 mg oral tablet (12 sources) gamma-Aminobutyric Acid-ergic Agonist Start: 10-23-2024 take 2 tablets by mouth every eight hours Baclofen 10 mg tablet Active 20 mg PO Q8H October 23, 2024 12:00am Start: 10-23-2024 Baclofen 10 mg tablet Active mg PO October 23, 2024 12:00am Start: 10-02-2024 End: 01-01-2025 take 1.5 tablets by mouth three times daily baclofen (Lioresal) 10 mg tablet Indications: Cervical myelopathy Take 1.5 tablets (15 mg) by mouth 3 times a day. 135 tablet 2 12/01/2024 11:20 AM EDT 10/02/2024 01/01/2025 Active Start: 08-04-2024 End: 10-02-2024 take 1 [...] 11/01/2017 Active chlorzoxazone 500 mg oral tablet (7 sources) Muscle Relaxant Start: 10-26-2024 End: 02-23-2025 [...] needed for muscle spasms. 120 tablet 3 12/01/2024 11:20 AM EDT 10/26/2024 02/23/2025 Active Start: 02-22-2024 End: [...] at Discharge) cholecalciferol 0.125 mg oral capsule (20 sources) Vitamin D Start: 10-23-2024 take 1 [...] oral tablet (20 sources) Muscle Relaxant Start: 06-15-2024 End: 06-15-2024 take 1 dose by mouth once 10 mg, Oral, ONCE, 1 dose, On Angelita 06/15/24 at 2144 Start: 06-15-2024 End: [...] on Wed02/22/24 at 1810 Start: 11-09-2022 End: 11-11-2024 take 1 tablet by mouth three times daily as needed for muscle spasms cyclobenzaprine (FLEXERIL) 10 MG tablet Take 1 tablet by mouth 3 times daily as needed for Muscle spasms 15 tablet 07/14/2024 07/24/2024 Active gabapentin 300 mg oral capsule (13 sources) Anti-epileptic Agent Start: 12-08-2024 take 1 capsule by mouth once 600 mg, oral, Once, On Wed12/08/24 at 1845, For 1 dose, Capsules may be opened and sprinkled on food (eg, applesauce, orange juice, pudding Start: 10-02-2024 End: 01-01-2025 take 1 tablet by mouth three times daily gabapentin (Neurontin) 600 mg tablet Indications: Herniated nucleus pulposus, L4-5 , Paresthesia of upper extremity , Spinal stenosis, cervical region , Back pain with radiculopathy , Cervical myelopathy Take 1 tablet (600 mg) by mouth 3 times a day. 90 tablet 2 12/01/2024 11:20 AM EDT 10/02/2024 01/01/2025 Active Start: 10-02-2024 End: 10-02-2024 take 2 [...] 07/24/2024 10/02/2024 Discontinued (Reorder) Start: 01-04-2024 take 2 capsules by m outh every eight hours Gabapentin 300 mg capsule Active 600 mg PO Q8H January 04, 2024 12:00am Start: 01-04-2024 take 1 capsule by mo uth twice daily Gabapentin 300 mg capsule Active [...] sources) Nonsteroidal Anti-inflammatory Drug Start: 07-24-2024 End: 11-11-2024 take 1 tablet by mouth three times [...] Apply patch to left lower back. The tray worker's recommendations for the number of patches that can be applied within a 24-hour period varies from 1 to 4 times daily and the duration of application varies from 8 to 24 hours; refer to the tray worker's labeling for product-specific recommendations. Start: 12-12-2023 End: [...] respiratory rate is greater than 12 breaths/minute. [place] (Nk) (1 source) Start: 08-20-2021 [place] (Nk) Active August 20, 2021 12:00am oxygen (O2) therapy (1 source) Start: 02-24-2024 [...] June 15, 2021 9:05pm polyethylene glycol 3350 [id number] mg powder for oral solution (1 source) Osmotic Laxative Start: 02-24-2024 17 g, oral, Daily, First dose on Angelita 02/24/24 at 1815, Bowel Regimen - for prevention of constipation. polyvinyl alcohol 0.014 ml/ml / povidone 6 mg/ml ophthalmic solution (1 source) Start: 02-24-2024 1 drop, Left Eye, As needed, dry eyes, Starting on Angelita 02/24/24 at 1908 promethazine (Phenergan) 6.25 mg in sodium chloride 0.9% 50 mL IV (1 source) Start: 02-24-2024 6.25 mg, intravenous, Administer over 15 Minutes, Once as needed, Nausea/vomiting, second line, Starting on Angelita 02/24/24 at 1745, For 1 dose sulfamethoxazole 800 mg / trimethoprim 160 mg oral tablet (6 sources) Dihydrofolate Reductase Inhibitor Antibacterial, Sulfonamide Antimicrobial Start: 02-25-2024 End: 03-07-2024 take 1 tablet by mouth every twelve hours sulfamethoxazole- trimethoprim (Bactrim DS) 800-160 mg tablet Indications: Cellulitis, [...] Sig (Original) acetaminophen 325 mg oral tablet (11 sources) Start: 12-08-2024 End: 12-08-2024 take 975 mg by mouth once as needed for pain 975 mg, oral, Once, On Wed12/08/24 at 1845, For 1 dose, If ordered PRN for pain, nurse is permitted to administer this medication for higher pain scores based on patient preference? Yes Start: 02-25-2024 End: 03-04-2024 take 2 tablets [...] 6 hours as needed for Pain Active acetaminophen 325 mg / HYDROcodone bitartrate 5 mg oral tablet (20 sources) Opioid Agonist Start: 05-18-2023 take 1 tablet by mouth every six hours as needed Hydrocodone-Acetaminophen Active 1 TABLET PO EVERY 6 HOURS NEEDED 12 May 18, 2023 Start: 11-09-2022 End: 01-04-2024 [...] / oxyCODONE hydrochloride 5 mg oral tablet (20 sources) Opioid Agonist Start: 05-19-2024 End: 05-19-2024 [...] in 24 hours. Start: 01-04-2024 End: 10-23-2024 Oxycodone-Acetaminophen (Per cocet) 5-325 mg tablet Discontinued 1 {tbl} PO EVERY 6 HOURS as needed for pain 12 3 0 January 20, 2024 October 23, 2024 3:49pm Back pain Dorsalgia, unspecified Start: 12-12-2023 End: 12-12-2023 take 1 tablet [...] temperature applesauce. diazePAM 5 mg oral tablet (3 sources) Benzodiazepine Start: 01-04-2024 End: 10-23-2024 take [...] 1 dose LORazepam 0.5 mg oral tablet (9 sources) Benzodiazepine Start: 01-24-2020 End: 01-27-2020 take [...] Recovery (only) methocarbamol 500 mg oral tablet (5 sources) Muscle Relaxant Start: 07-13-2024 End: 07-13-2024 take 1 dose by mouth once 750 mg, Oral, Once, 1 dose, On Wed07/13/24 at 2301 Start: 05-19-2024 End: 05-24-2024 take 1 tablet by mouth four times daily as needed for pain methocarbamol (ROBAXIN) 500 MG tablet Take 1 tablet by mouth 4 times daily as needed (Pain) 20 tablet 05/19/2024 05/24/2024 Active Start: 01-04-2024 End: 10-23-2024 take 1 tablet by mouth once daily in the evening Methocarbamol 500 mg tablet Discontinued 500 mg PO EVERY EVENING January 04, 2024 12:00am October 23, 2024 3:49pm methylPREDNISolone 125 mg injection (3 sources) Corticosteroid [...] at 0007 naproxen 500 mg oral tablet (19 sources) Nonsteroidal Anti-inflammatory Drug Start: 01-12-2024 End: [...] Start: 02-24-2024 take 1 tablet by linda every eight hours as needed ondansetron (Zofran) tablet 4 mg 2 ml orphenadrine citrate 30 mg/ml injection (3 sources) Muscle Relaxant Start: 02-08-2024 End: 02-08-2024 inject 1 dose by intramuscular injection once 60 mg, IntraMUSCular, ONCE, 1 dose, On Tu02/08/24 at 2224 Start: 01-29-2024 End: 01-29-2024 inject 1 dose by intramuscular injection once 60 mg, IntraMUSCular, ONCE, 1 dose, On 01/29/24 at 2038 Start: 12-12-2023 End: 12-12-2023 inject 1 dose by intramuscular injection once 60 mg, IntraMUSCular, ONCE, 1 dose, On 12/12/23 at 1847 oxyCODONE hydrochloride 5 mg oral tablet (7 sources) Opioid Agonist Start: 12-08-2024 End: 12-08-2024 take 5 mg by mouth once as needed for pain 5 mg, oral, Once, On 9/26/25 at 2030, For 1 dose, If ordered PRN for pain, nurse is permitted to administer this medication for higher pain scores based on patient preference? Yes Start: 02-25-2024 End: 03-04-2024 take 1 tablet [...] pain scores based on patient preference? Yes piperacillin 3000 mg / tazobactam 375 mg [...] Empiric, Indications: Cellulitis, Skin and Soft Tissue predniSONE 20 mg oral tablet (13 sources) Start: 12-08-2024 End: 12-08-2024 take 60 mg by mouth once 60 mg, oral, Once, On Wed12/08/24 at 1845, For 1 dose Start: 12-08-2024 End: 12-13-2024 take 4 tablets by mouth once daily predniSONE (Deltasone) 10 mg tablet Indications: Low back pain with left-sided sciatica, unspecified back pain laterality, unspecified chronicity Take 4 tablets (40 mg) by mouth once daily for 5 days. 20 tablet 12/08/2024 12/13/2024 Active Start: 06-15-2024 End: 06-19-2024 take 1 tablet [...] 5 days 10 tablet 12/07/2023 12/12/2023 Active 1000 ml sodium chloride 9 mg/ml injection [...] oral fluids. tiZANidine 4 mg oral tablet (4 sources) Central alpha-2 Adrenergic Agonist Start: 01-29-2024 [...] A DAY as needed for muscle spasticity January 20, 2024 1:00am October 23, 2024 [...] First dose on Wed02/23/24 at 0100, Mini-Bag Plus/ADD-Leonard bag, Dosing of this medication varies based [...] Episodic Attention-deficit, conduct, and disruptive behavior disorders (14 sources) Attention deficit hyperactivity disorder; Translations: [Attention-deficit hyperactivity disorder, unspecified type] Onset: 06-28-2024 06-28-2024 Chronic Attention-deficit, conduct, and disruptive behavior disorders (2 sources) Attention-deficit hyperactivity disorder, unspecified type; Translations: [Attention-deficit hyperactivity disorder, unspecified type] Onset: 06-28-2024 Chronic Disorders of lipid metabolism (20 sources) Hyperlipidemia; Translations: [Hyperlipidemia, unspecified] Onset: 12-27-2022 12-27-2022 Chronic E Codes: Fall (20 sources) Fall; Translations: [Other fall from one level to another, initial encounter] Onset: 05-19-2024 Resolved: 06-28-2024 01-25-2020 Episodic Mood disorders (20 sources) Bipolar disorder; Translations: [Bipolar disorder, unspecified] Onset: 06-28-2024 08-20-2021 Chronic Nutritional deficiencies (20 sources) Vitamin D deficiency; Translations: [Vitamin D deficiency, unspecified] Onset: 12-27-2022 12-27-2022 Chronic Other connective tissue disease (8 sources) Other symptoms and signs involving the musculoskeletal system; Translations: [Other musculoskeletal symptoms referable to limbs] Onset: 05-19-2024 05-19-2024 Episodic Other connective tissue disease (13 sources) Weakness of foot; Translations: [Other symptoms and signs involving the musculoskeletal system] Onset: 10-02-2024 10-02-2024 Episodic Other gastrointestinal disorders (13 sources) Neurogenic bowel; Translations: [Neurogenic bowel, not elsewhere classified] Onset: 10-02-2024 10-02-2024 Chronic Other gastrointestinal disorders (6 sources) Neurogenic bowel, not elsewhere classified; Translations: [Neurogenic bowel, not elsewhere classified] Onset: 10-02-2024 Chronic Other gastrointestinal disorders (1 source) Fecal incontinence with fecal urgency; Translations: [Full incontinence of feces] 01-29-2024 Episodic Other injuries and conditions due to external causes (10 sources) Abrasion and/or friction burn of multiple sites; Translations: [Unspecified multiple injuries, initial encounter] 01-25-2020 Episodic Other nervous system disorders (13 sources) Chronic pain; Translations: [Other chronic pain] Onset: 06-28-2024 06-28-2024 Chronic Other nervous system disorders (4 sources) Other chronic pain; Translations: [Other chronic pain] Onset: 06-28-2024 Chronic Other nervous system disorders (11 sources) Cervical myelopathy; Translations: [Disease of spinal cord, unspecified] Onset: 10-16-2024 07-19-2024 Chronic Other nervous system disorders (2 sources) Chronic low back pain; Translations: [Other chronic pain] 10-02-2024 Chronic Other nervous system disorders (10 sources) Disease of spinal cord, unspecified; Translations: [Disease of spinal cord, unspecified] Onset: 10-16-2024 Chronic Other nervous system disorders (7 sources) Spinal cord disease; Translations: [Disease of spinal cord, unspecified] 11-10-2024 Chronic Other nervous system disorders (4 sources) Paresthesia of skin; Translations: [Paresthesia of skin] Onset: 12-27-2022 Episodic Poisoning by other medications and drugs (3 sources) Overdose of opiate; Translations: [Poisoning by unspecified narcotics, accidental (unintentional), initial encounter] Onset: 10-27-2024 10-23-2024 Episodic Residual codes; unclassified (7 sources) Left against medical advice; Translations: [Procedure and treatment not carried out because of patient's decision for other reasons] 06-16-2022 Episodic Residual codes; unclassified (2 sources) Unresponsive ; Translations: [Transient alteration of awareness] 10-23-2024 Episodic Spondylosis; intervertebral disc disorders; other back problems (20 sources) Other cervical disc degeneration, unspecified cervical region; Translations: [Prolapsed lumbar intervertebral disc] Onset: 01-04-2018 12-27-2022 Chronic Spondylosis; intervertebral disc disorders; other back problems (20 sources) Cervicalgia; Translations: [Low back pain] Onset: 03-21-2015 09-01-2014 Episodic Substance-related disorders (10 sources) Smoker; Translations: [Nicotine dependence, unspecified, uncomplicated] Onset: 09-07-2014 06-28-2024 Chronic Suicide and intentional self-inflicted injury (8 sources) Suicidal thoughts; Translations: [Suicidal ideations] 08-30-2021 [...] Unclassified (1 source) Speech finding 06-28-2024 Unclassified (2 sources) Low back pain, unspecified; Translations: [Low back pain, unspecified] Onset: 01-25-2024 Past or Other Problems Problem Classification Problem Date Documented Da te Episodic/Chronic Diabetes mellitus without complication (20 sources) Prediabetes; Translations: [Prediabetes] Onset: 12-27-2022 12-27-2022 Episodic Disorders of teeth and jaw (20 sources) Toothache; Translations: [Other specified disorders of teeth and supporting structures] Onset: 06-28-2024 Resolved: 06-28-2024 06-23-2021 Episodic Fever of unknown origin (20 sources) Fever; Translations: [Fever, unspecified] Onset: 06-28-2024 Resolved: 06-28-2024 06-20-2019 Episodic Immunizations and screening for infectious disease (20 sources) Suspected disease caused by 2019-nCoV; Translations: [Suspected 2019 novel coronavirus infection] Onset: 06-28-2024 Resolved: 06-28-2024 06-20-2019 Episodic Other connective tissue disease (19 sources) Pain in left lower limb; Translations: [Pain in left leg] Onset: 05-27-2017 06-28-2024 Episodic Other connective tissue disease (1 source) Myalgia; Translations: [Myalgia] Onset: 05-27-2017 Episodic Other connective tissue disease (20 sources) Spasm of cervical paraspinous muscle; Translations: [Other muscle spasm] Onset: 01-04-2024 03-26-2021 Episodic Other connective tissue disease (10 sources) Tendonitis of left wrist; Translations: [Other [...] 12-27-2022 12-27-2022 Episodic Other nervous system disorders (11 sources) Speech finding; Translations: [Other speech disturbances] Onset: 06-28-2024 06-28-2024 Episodic Other nervous system disorders (2 sources) Other speech disturbances; Translations: [Other speech disturbances] Onset: 06-28-2024 Episodic Other non-traumatic joint disorders (20 sources) Shoulder pain; Translations: [Pain in unspecified shoulder] Onset: 12-27-2022 12-27-2022 Episodic Other nutritional; endocrine; and metabolic disorders (20 sources) Overweight; Translations: [Overweight] Onset: 12-27-2022 12-27-2022 Episodic Skin and subcutaneous tissue infections (5 sources) Abscess of left axilla; Translations: [Cutaneous abscess of left axilla] Onset: 02-22-2024 02-25-2024 Episodic Sprains and strains (20 sources) Strain of trapezius muscle; Translations: [Strain of other muscles, fascia and tendons at shoulder and upper arm level, left arm, initial encounter] Onset: 08-28-2023 06-13-2019 Episodic Substance-related disorders (10 sources) Marijuana user; Translations: [Cannabis use, unspecified, uncomplicated] Onset: 09-04-2014 Resolved: 06-28-2024 06-28-2024 Episodic Superficial injury; contusion (20 sources) Contusion of chest; Translations: [Contusion of unspecified front wall of thorax, initial encounter] Onset: 06-28-2024 Resolved: 06-28-2024 01-25-2020 Episodic Syncope (17 sources) Syncope; Translations: [Syncope and collapse] Onset: [...] at neck level, init] Onset: 10-19-2017 Unclassified (9 sources) Onset: 07-19-2024 Resolved: 10-16-2024 07-19-2024 Viral infection (18 sources) Disease caused by 2019-nCoV; Translations: [COVID-19] Onset: 06-28-2024 Resolved: 06-28-2024 08-20-2021 Episodic Results Test Name Value Interpretation Reference Range Facility CT LUMBAR SPINE WO IV CONTRA STon 12-08-2024 CT LUMBAR SPINE WO IV CONTRAST Interpreted By: Nick Carrizales, STUDY: CT LUMBAR SPINE WO IV CONTRAST; 12/08/2024 7:15 pm INDICATION: Signs/Symptoms:fall, low back pain. COMPARISON: None. ACCESSION NUMBER(S): [id number] ORDERING CLINICIAN: PARRISH TALBERT TECHNIQUE: Contiguous axial images of the lumbar spine were obtained without intravenous contrast. Coronal and sagittal reformatted images were obtained from the axial images. FINDINGS: No acute fracture of the lumbar spine. The vertebral body heights are preserved. There is multilevel degenerative change of the lumbar spine. There is intervertebral disc space narrowing and degenerative disc disease at L4-L5 and L5-S1. There is also multilevel anterior osseous spurring. There is limited evaluation of the soft tissues of the spinal canal. At L1-L2, there is no evidence of significant spinal canal stenosis. At L2-L3, there is no evidence of significant spinal canal stenosis. At L3-L4, there is no evidence of significant spinal canal stenosis. There is degenerative facet arthropathy and mild bilateral neural foramina narrowing. At L4-L5, there is disc bulge resulting in mild ventral mass effect on the spinal canal. There is degenerative facet arthropathy and right greater than left neural foramen narrowing. At L5-S1, there is posterior osseous spurring and disc bulge which is asymmetric to the left and resulting in ventral mass effect on the spinal canal and likely mass effect on the left S1 nerve in the spinal canal. There is also left greater than right neural foramen stenosis. IMPRESSION: No acute fracture of the lumbar spine. Degenerative change of the lumbar spine which is greatest at L5-S1 where there is asymmetric left posterior osseous spurring and disc bulge resulting in ventral mass in the spinal canal and likely mass effect on the left S1 nerve in the spinal canal. There is also bilateral left greater than right neural foramen stenosis at this level. MACRO: None Signed by: Nick Carrizales 12/08/2024 7:53 PM Dictation workstation: [id number] [facility] CT Lumbar spine WO contrasto n 12-08-2024 No acute fracture of the lumbar spine. Degenerative change of the lumbar spine which is greatest at L5-S1 where there is asymmetric left posterior osseous spurring and disc bulge resulting in ventral mass in the spinal canal and likely mass effect on the left S1 nerve in the spinal canal. There is also bilateral left greater than right neural foramen stenosis at this level. MACRO: None Signed by: Nick Carrizales 12/08/2024 7:53 PM Dictation workstation: [id number] MMODAL Interpreted By: Nick Bui, STUDY: CT LUMBAR SPINE WO IV CONTRAST; 12/08/2024 7:15 pm INDICATION: Signs/Symptoms:fall, low back pain. COMPARISON: None. ACCESSION NUMBER(S): [id number] ORDERING CLINICIAN: PARRISH TALBERT TECHNIQUE: Contiguous axial images of the lumbar spine were obtained without intravenous contrast. Coronal and sagittal reformatted images were obtained from the axial images. FINDINGS: No acute fracture of the lumbar spine. The vertebral body heights are preserved. There is multilevel degenerative change of the lumbar spine. There is intervertebral disc space narrowing and degenerative disc disease at L4-L5 and L5-S1. There is also multilevel anterior osseous spurring. There is limited evaluation of the soft tissues of the spinal canal. At L1-L2, there is no evidence of significant spinal canal stenosis. At L2-L3, there is no evidence of significant spinal canal stenosis. At L3-L4, there is no evidence of significant spinal canal stenosis. There is degenerative facet arthropathy and mild bilateral neural foramina narrowing. At L4-L5, there is disc bulge resulting in mild ventral mass effect on the spinal canal. There is degenerative facet arthropathy and right greater than left neural foramen narrowing. At L5-S1, there is posterior osseous spurring and disc bulge which is asymmetric to the left and resulting in ventral mass effect on the spinal canal and likely mass effect on the left S1 nerve in the spinal canal. There is also left greater than right neural foramen stenosis. MMODAL Nick Carrizales MD - 12/08/2024 Interpreted By: Nick Carrizales, STUDY: CT LUMBAR SPINE WO IV CONTRAST; 12/08/2024 7:15 pm INDICATION: Signs/Symptoms:fall, low back pain. COMPARISON: None. ACCESSION NUMBER(S): [id number] ORDERING CLINICIAN: PARRISH TALBERT TECHNIQUE: Contiguous axial images of the lumbar spine were obtained without intravenous contrast. Coronal and sagittal reformatted images were obtained from the axial images. FINDINGS: No acute fracture of the lumbar spine. The vertebral body heights are preserved. There is multilevel degenerative change of the lumbar spine. There is intervertebral disc space narrowing and degenerative disc disease at L4-L5 and L5-S1. There is also multilevel anterior osseous spurring. There is limited evaluation of the soft tissues of the spinal canal. At L1-L2, there is no evidence of significant spinal canal stenosis. At L2-L3, there is no evidence of significant spinal canal stenosis. At L3-L4, there is no evidence of significant spinal canal stenosis. There is degenerative facet arthropathy and mild bilateral neural foramina narrowing. At L4-L5, there is disc bulge resulting in mild ventral mass effect on the spinal canal. There is degenerative facet arthropathy and right greater than left neural foramen narrowing. At L5-S1, there is posterior osseous spurring and disc bulge which is asymmetric to the left and resulting in ventral mass effect on the spinal canal and likely mass effect on the left S1 nerve in the spinal canal. There is also left greater than right neural foramen stenosis. IMPRESSION: No acute fracture of the lumbar spine. Degenerative change of the lumbar spine which is greatest at L5-S1 where there is asymmetric left posterior osseous spurring and disc bulge resulting in ventral mass in the spinal canal and likely mass effect on the left S1 nerve in the spinal canal. There is also bilateral left greater than right neural foramen stenosis at this level. MACRO: None Signed by: Nick Carrizales 12/08/2024 7:53 PM Dictation workstation: [id number] [facility] Work Phone: Radiology Study observation (narrative) [facility] Work Phone: CT Lumbar spine WO contrastO rdered By: Nick Carrizales on 12-08-2024 [facility] Work Phone: MR CERVICAL SPINE WO IV CONT Samuel 12-08-2024 MR CERVICAL SPINE WO IV CONTRAST Interpreted By: Isaiah Dixon, STUDY: MR CERVICAL SPINE WO IV CONTRAST; MR THORACIC SPINE WO IV CONTRAST; ; 12/08/2024 6:34 pm; 12/08/2024 5:48 pm INDICATION: Signs/Symptoms:myelopathy. ,G95.9 Disease of spinal cord, unspecified (Multi) COMPARISON: MRI cervical and thoracic spine from 02/17/2024. ACCESSION NUMBER(S): [id number]; [id number] ORDERING CLINICIAN: SHA FOSTER TECHNIQUE: MRI of the cervical and thoracic spine was performed with the acquisition of sagittal T2, sagittal T1, sagittal STIR, axial T1, and axial T2 weighted sequences. FINDINGS: Evaluation is somewhat degraded due to patient motion. MRI cervical spine: There is straightening of the cervical spine. Compared to the prior MRI, there are new postoperative changes from anterior cervical discectomy and fusion at C5-C6. Intervertebral disc spacers are present at the levels of C5-C6 and C6-C7. Current study is not tailored to assess the surgical hardware. Visualized vertebral body and intervertebral disc heights are maintained. There is STIR hyperintense signal throughout the C5, C6, and C7 vertebral bodies which may be artifactual, but if real could reflect osseous edema versus reactive hypervascularity related to recent surgery. There is T2 hyperintense signal located within the cervical spinal cord at the level of C6-C7 which is most consistent with myelomalacia. Otherwise, no striking signal abnormality seen within the spinal cord, noting that evaluation is degraded due to susceptibility artifact from surgical hardware as well as patient motion. At C2-C3, there is no posterior contour abnormality. There is no spinal canal stenosis or neural foraminal narrowing. There is no facet osteoarthropathy. At C3-C4, there is a stable small central disc protrusion. There is no spinal canal stenosis or neural foraminal narrowing. There is no facet osteoarthropathy. At C4-C5, there is a stable small central disc protrusion. There is no spinal canal stenosis. There is minimal bilateral neural foraminal narrowing due to uncovertebral hypertrophy. There is no facet osteoarthropathy. At C5-C6, there is no posterior disc contour abnormality. Spinal canal stenosis related to degenerative changes present on the prior MRI has resolved status post anterior cervical discectomy and fusion. There is at most mild bilateral neural foraminal narrowing due to uncovertebral hypertrophy, noting that evaluation of the neural foramina is difficult due to susceptibility artifact from surgical hardware. There is no facet osteoarthropathy. At C6-C7, there is no posterior disc contour abnormality. Spinal canal stenosis related to degenerative changes present on the prior MRI has resolved status post anterior cervical discectomy and fusion. There is at most mild bilateral neural foraminal narrowing due to uncovertebral hypertrophy, noting that evaluation of the neural foramina is difficult due to susceptibility artifact from surgical hardware. There is no facet osteoarthropathy. At C7-T1, there is no striking posterior contour abnormality. There is no spinal canal stenosis or neural foraminal narrowing. There is no striking facet osteoarthropathy. MRI thoracic spine: There is normal alignment. Vertebral body and intervertebral disc heights are maintained. Marrow signal is within normal limits. The thoracic spinal cord is normal in signal and caliber. Stable bilateral paracentral disc protrusions at T3-T4, T5-T6, T6-T7, T7-T8, T8-T9, T9-T10, and T10-T11 which partially effaces the ventral thecal sac but causes no striking spinal canal stenosis. Again at T7-T8, disc and osteophyte extend into the left neural foramina and causes mild neural foraminal narrowing and narrows the left lateral recess. There is stable extension of disc into the left neural foramina T8-T9 but causing no striking neural foraminal narrowing. Stable extension of intervertebral disc into the left neural foramina at T10-T11 causing mild neural foraminal narrowing. The thoracic spinal cord is normal in signal and caliber. Small cyst within the right kidney. IMPRESSION: MRI cervical spine: 1. Interval resolution of spinal canal stenosis at C5-C6 and C6-C7 status post anterior cervical discectomy and fusion. It is somewhat difficult to evaluate if there is change in neural foraminal narrowing due to susceptibility artifact from surgical hardware. 2. Degenerative changes at the other cervical levels are essentially unchanged. 3. Stable appearance of myelomalacia within the cervical spinal cord at the level of C6-C7. MRI thoracic spine: Stable multilevel degenerative changes of the thoracic spine as detailed above. This study was interpreted at [facility] [place]. MACRO: None Signed by: Isaiah Dixon 12/11/2024 2:03 PM Dictation workst (more content not included)... Normal [facility] Comment on above: Order Comment: RASHAWN Vidal EAD MR THORACIC SPINE WO IV CONT [facility] 12-08-2024 MR THORACIC SPINE WO IV CONTRAST Interpreted By: Isaiah Dixon, STUDY: MR CERVICAL SPINE WO IV CONTRAST; MR THORACIC SPINE WO IV CONTRAST; ; 12/08/2024 6:34 pm; 12/08/2024 5:48 pm INDICATION: Signs/Symptoms:myelopathy. ,G95.9 Disease of spinal cord, unspecified (Multi) COMPARISON: MRI cervical and thoracic spine from 02/17/2024. ACCESSION NUMBER(S): [id number]; [id number] ORDERING CLINICIAN: SHA FOSTER TECHNIQUE: MRI of the cervical and thoracic spine was performed with the acquisition of sagittal T2, sagittal T1, sagittal STIR, axial T1, and axial T2 weighted sequences. FINDINGS: Evaluation is somewhat degraded due to patient motion. MRI cervical spine: There is straightening of the cervical spine. Compared to the prior MRI, there are new postoperative changes from anterior cervical discectomy and fusion at C5-C6. Intervertebral disc spacers are present at the levels of C5-C6 and C6-C7. Current study is not tailored to assess the surgical hardware. Visualized vertebral body and intervertebral disc heights are maintained. There is STIR hyperintense signal throughout the C5, C6, and C7 vertebral bodies which may be artifactual, but if real could reflect osseous edema versus reactive hypervascularity related to recent surgery. There is T2 hyperintense signal located within the cervical spinal cord at the level of C6-C7 which is most consistent with myelomalacia. Otherwise, no striking signal abnormality seen within the spinal cord, noting that evaluation is degraded due to susceptibility artifact from surgical hardware as well as patient motion. At C2-C3, there is no posterior contour abnormality. There is no spinal canal stenosis or neural foraminal narrowing. There is no facet osteoarthropathy. At C3-C4, there is a stable small central disc protrusion. There is no spinal canal stenosis or neural foraminal narrowing. There is no facet osteoarthropathy. At C4-C5, there is a stable small central disc protrusion. There is no spinal canal stenosis. There is minimal bilateral neural foraminal narrowing due to uncovertebral hypertrophy. There is no facet osteoarthropathy. At C5-C6, there is no posterior disc contour abnormality. Spinal canal stenosis related to degenerative changes present on the prior MRI has resolved status post anterior cervical discectomy and fusion. There is at most mild bilateral neural foraminal narrowing due to uncovertebral hypertrophy, noting that evaluation of the neural foramina is difficult due to susceptibility artifact from surgical hardware. There is no facet osteoarthropathy. At C6-C7, there is no posterior disc contour abnormality. Spinal canal stenosis related to degenerative changes present on the prior MRI has resolved status post anterior cervical discectomy and fusion. There is at most mild bilateral neural foraminal narrowing due to uncovertebral hypertrophy, noting that evaluation of the neural foramina is difficult due to susceptibility artifact from surgical hardware. There is no facet osteoarthropathy. At C7-T1, there is no striking posterior contour abnormality. There is no spinal canal stenosis or neural foraminal narrowing. There is no striking facet osteoarthropathy. MRI thoracic spine: There is normal alignment. Vertebral body and intervertebral disc heights are maintained. Marrow signal is within normal limits. The thoracic spinal cord is normal in signal and caliber. Stable bilateral paracentral disc protrusions at T3-T4, T5-T6, T6-T7, T7-T8, T8-T9, T9-T10, and T10-T11 which partially effaces the ventral thecal sac but causes no striking spinal canal stenosis. Again at T7-T8, disc and osteophyte extend into the left neural foramina and causes mild neural foraminal narrowing and narrows the left lateral recess. There is stable extension of disc into the left neural foramina T8-T9 but causing no striking neural foraminal narrowing. Stable extension of intervertebral disc into the left neural foramina at T10-T11 causing mild neural foraminal narrowing. The thoracic spinal cord is normal in signal and caliber. Small cyst within the right kidney. IMPRESSION: MRI cervical spine: 1. Interval resolution of spinal canal stenosis at C5-C6 and C6-C7 status post anterior cervical discectomy and fusion. It is somewhat difficult to evaluate if there is change in neural foraminal narrowing due to susceptibility artifact from surgical hardware. 2. Degenerative changes at the other cervical levels are essentially unchanged. 3. Stable appearance of myelomalacia within the cervical spinal cord at the level of C6-C7. MRI thoracic spine: Stable multilevel degenerative changes of the thoracic spine as detailed above. This study was interpreted at [facility] [place]. MACRO: None Signed by: Isaiah Dixon 12/11/2024 2:03 PM Dictation workst (more content not included)... Normal [facility] Comment on above: Order Comment: RASHAWN HURTADO Emergency Department Summary on 11-11-2024 Emergency Department Summary [facility] Medical Records Department [address] [place] [address] Emergency Department Summary 11/11/24 MR#: [id number] Acct: [id number] Name: HARMAN JAMIL Rep #: [id number] : 1980 44 From: Eduardo Mcdonald DO PCP: Dr. Josafat [place], DO Status:REG ER Location: ED HPI History of Present Illness Chief Complaint: Back Narrative Narrative: Chief complaint and HPI: Acute on chronic lumbar back pain. 44-year-old male with past medical history of cervical radiculopathy, chronic lumbar back pain with known disc herniation, sciatica presents for evaluation on acute on chronic lumbar back pain. Patient states he follows with orthopedic physician. He is currently in physical therapy. Patient states that he has baseline numbness/tingling and weakness in his left lower extremity from his chronic back pain. States is not any worse. States this evening he was helping his mother move some heavy boxes when he feels like he aggravated his chronic back pain. States that the back pain is mostly located on the left side and radiates into his buttocks. Denies any new numbness or weakness. Has neurogenic bladder but nothing new with bowel and bladder issues. Denies any fever or chills. Review of systems: See HPI Medications: As listed on the chart Allergies: As listed on the chart PFSH: Per chart Vital signs: As listed on the chart. Reviewed. Physical exam: Gen: A O x3, NAD Head: Normocephalic, atraumatic Eyes: No sclera icterus, conjunctiva clear, PERRL ENT: Moist mucous membranes Neck: Trachea midline, No JVD, full range of motion CV: RRR, no murmurs Resp: Lungs CTA BL, no w/r/c GI: Abd soft, non-distended, non-tender, no r/r/g Musc: Full ROM, no deformity, no midline spinal tenderness, no bony step-offs, no signs of trauma or infection, patient has tenderness to palpation of the left paraspinal musculature of the lumbar spine-muscles are tense, strength equal in all extremities except mildly decreased in the left lower extremity-patient states this is his baseline, wearing left leg brace due to chronic left foot drop, DP/PT pulses +2 bilaterally, compartments soft Skin: Warm, dry Neuro: Alert, oriented, grossly intact, sensation intact Psych: Cooperative, appropriate mood and affect PFSH [facility] Medical History ADHD Sciatica Cervical radiculopathy Home Medications ???Medication ???Instructions ???Recorded ???Last Taken ???Type gabapentin 300 mg capsule 600 mg PO Q8H 01/04/24 Unknown His tory baclofen 10 mg tablet 20 mg PO Q8H 10/23/24 Unknown Hist ory cholecalciferol (vitamin D3) 125 125 mcg PO DAILY 10/23/24 Unknown History mcg (5,000 unit) capsule chlorzoxazone 500 mg tablet 500 mg PO 4X/DAY PRN PRN muscle Unknown History spasm Allergy/AdvReac Type Severity Reaction Status Date / Time No Known Allergies Allergy Verified 11/10/24 23:57 Surgical History Hx of tonsillectomy Previous back surgery Social History household members: none Smoking Status: Current every day smoker tobacco type: cigarettes alcohol intake: current alcohol intake frequency: other substance use type: marijuana EXAM Physical Exam Const Vital Signs: 11/10/24 23:53 Temperature 98.1 F Temperature Source Oral Pulse Rate 72 Respiratory Rate 18 Blood Pressure 135/92 H Blood Pressure Mean 106 Pulse Ox 100 Oxygen Delivery Method Room Air MDM MDM MDM Narrative Medical decision making narrative: 44-year-old male with past medical history of cervical radiculopathy, chronic lumbar back pain with known disc herniation, sciatica presents for evaluation on acute on chronic lumbar back pain. Patient states he follows with orthopedic physician. He is currently in physical therapy. Patient states that he has baseline numbness/tingling and weakness in his left lower extremity from his chronic back pain. States is not any worse. States this evening he was helping his mother move some heavy boxes when he feels like he aggravated his chronic back pain. States that the back pain is mostly located on the left side and radiates into his buttocks. Denies any new numbness or weakness. Has neurogenic bladder but nothing new with bowel and bladder issues. There has been no trauma or anything to suggest infectious etiology. There is no new neurological findings to suggest any acute cauda equina syndrome or acute radiculopathy. At this point in time I do not feel any emergent imaging such as x-rays or MRI are warranted. Patient in agreement. Suspect this is more acute on chronic back pain versus myofascial spasm. Patient's pain will be treated with IM (more content not included)... Normal [facility] Bedside Glucoseon 10-25-2024 FINGERSTICK GLU 105 mg/dL Normal 74-106 [facility] Comment on above: Result Comment: YAJAIRA [place] OF PATIENT CARE PER NURSING PROTOCOL Performed By: #### L 501.080 ####[facility] [id number] [place], [address] 12 Lead EKGon 10-23-2024 12 Lead EKG [facility] Cardiovascular Services [address] [place] [address] 12 Lead EKG 10/23/24 1541 MR#: [id number] Acct: [id number] Name: HARMAN JAMIL Rep #: [id number] : 1980 44 From: Kris Hensley MD [...] rhythm Normal ECG Confirmed by Kris Hensley ([id number]), production editor DEJAH FRANCISCO ([id number]) on 10/24/2024 11:41:15 AM Referred By: Confirmed By: Kris Hensley 10/24/24 1141 Date ____ Kris Hensley MD CC: Dr. Josafat [place] DO; Dr. Caleb Smith DO Signed Normal [facility] Emergency Department Summary on 10-23-2024 Emergency Department Summary [facility] Medical Records Department [address] [place] [address] Emergency Department Summary 10/23/24 MR#: [id number] Acct: [id number] Name: HARMAN JAMIL Rep #: [id number] : 1980 44 From: Caleb Smith DO PCP: Dr. Josafat [place] DO Status:REG ER Location: ED ADDENDUM by Dr. Caleb Smith DO on 10/23/24 at 1603 Patient's EKG reviewed and showed sinus rhythm with a rate of 70 bpm. QTc was noted to be 437 with a normal [place] interval 144. 10/23/24 1603 Cosigner Signature (if [...] brought him in here to be evaluated. [facility] Medical History ADHD Sciatica Cervical radiculopathy Home [...] states that earlier today he went to [place] for a psych eval and he states that this appointment went well. He states that he stopped at a friend's house and then was on his way to see his mother and he notes that he ended up here and is not sure what happened. He denies any history of drug abuse. Patient's sicql-qg-zgzx glucose was noted to be 105. Patient [...] there is (more content not included)... Normal [facility] at [facility] deOrdered By: Caleb Smith on 10-23-2024 Glucose [Mass/Vol] 105 mg/dL 74-106 [facility] Comment on above: MANAGEMENT OF PATIEN T CARE PER NURSING PROTOCOL MR LUMBAR SPINE WO IV CONTRA STon [...] COMPARISON: MR lumbar spine 02/18/2024. ACCESSION NUMBER(S): [id number] ORDERING CLINICIAN: NIGHAT GRIFFIN TECHNIQUE: Multiplanar, multisequence [...] is mild central canal stenosis. There is [id number]-gq-zuwrzzpy left and minimal right neural foraminal narrowing. [...] This study was interpreted at [facility] [place], [place], [place]. MACRO: None Signed by: Eufemia Khan 10/13/2024 12:40 PM Dictation workstation: [id number] [facility] CBC W Auto Differential pane l (Bld)on 07-14-2024 Basophils (Bld) [#/Vol] 0.1 10*3/uL 0.0 - 0.2 K/uL [facility] Basophils/100 WBC (Bld) 0.6 % [facility] Eosinophils (Bld) [#/Vol] 0.7 10*3/uL 0.0 - 0.7 K/uL [facility] Eosinophils/100 WBC (Bld) 5.2 % [facility] Erythrocyte distribution width (RBC) [Ratio] 12 % 11.5 - 14.5 % [facility] Hematocrit (Bld) [Volume fraction] 48.2 % 42.0 - 52.0 % [facility] Hemoglobin (Bld) [Mass/Vol] 16.1 g/dL 14.0 - 18.0 g/dL [facility] Interpretation and review of laboratory results Abnormal [facility] Lymphocytes (Bld) [#/Vol] 4 10*3/uL 1.0 - 4.8 K/uL [facility] Lymphocytes/100 WBC (Bld) 31.1 % [facility] MCH (RBC) [Entitic mass] 31.2 pg 27.0 - 31.3 pg [facility] MCHC (RBC) [Mass/Vol] 33.4 % 33.0 - 37.0 % [facility] MCV (RBC) [Entitic vol] 93.4 fL High 79.0 - 92.2 fL [facility] Monocytes (Bld) [#/Vol] 1.1 10*3/uL High 0.2 - 0.8 K/uL [facility] Monocytes/100 WBC (Bld) 8.5 % [facility] Neutrophils (Bld) [#/Vol] 7.1 10*3/uL High 1.4 - 6.5 K/uL [facility] Platelets (Bld) [#/Vol] 312 10*3/uL 130 - 400 K/uL [facility] RBC (Bld) [#/Vol] 5.16 10*6/uL [facility] Segmented neutrophils/100 WBC (Bld) 54.3 % [facility] WBC (Bld) [#/Vol] 13 10*3/uL High 4.8 - 10.8 K/uL [facility] CT Kidney WO contraston 05-0 1. No acute intra-ab dominal or pelvic process. No urinary calculi or obstruction. 2. Focal moderate disc degenerative change L4-L5. [facility] RADIOLOGY EXAMINATION: CT OF THE [...] abnormalities. Focal moderate disc degenerative change L4-L5. [facility] RADIOLOGY Smith Bullock MD - [...] 2. Focal moderate disc degenerative change L4-L5. Tap.[employer] CT Kidney WO contrastOrdered By: Smith Bullock on 07-14-2024 [facility] [employer] Work Phone: [place] Drugs of Abuse Panelon Drug Screen Comment see below Normal [facility] Comment on above: Result Comment: This method is a screening test to detect only these drug classes as part of a medical workup. Confirmatory testing by another method should be ordered if clinically indicated. Performed By: #### U DRGS #### [facility] [address] [place] [address] UR Cannabinoids Screen Positive Abnormal Negative < [facility] Comment on above: Performed By: #### U DRGS #### [facility] [address] [place] [address] UR Fentanyl Screen Negative Normal Negative < [facility] Comment on above: Performed By: #### U DRGS #### [facility] [address] [place] [address] UR Amphetamines Screen Negative Normal Negative < [facility] Comment on above: Performed By: #### U DRGS #### [facility] [address] [place] [address] UR Barbiturates Screen Negative Normal Negative < [facility] Comment on above: Performed By: #### U DRGS #### [facility] [address] [place] [address] UR Benzo Screen Negative Normal Negative < [facility] Comment on above: Performed By: #### U DRGS #### [facility] [address] [place] [address] UR Cocaine Screen Negative Normal Negative < [facility] Comment on above: Performed By: #### U DRGS #### [facility] [address] [place] [address] UR Methadone Screen Negative Normal Negative < [facility] Comment on above: Performed By: #### U DRGS #### [facility] [address] [place] [address] UR Opiates Screen Negative Normal Negative < [facility] Comment on above: Performed By: #### U DRGS #### [facility] [address] [place] [address] UR Oxycodone Screen Negative Normal Negative < [facility] Comment on above: Performed By: #### U DRGS #### [facility] [address] [place] [address] UR PCP Screen Negative Normal Negative < [facility] Comment on above: Performed By: #### U DRGS #### [facility] [address] [place] [address] UR Propoxyphene Screen Negative Normal Negative < [facility] Comment on above: Performed By: #### U DRGS #### [facility] [address] [place] [address] Urinalysis with Reflex to Cu ltureon 07-14-2024 Glucose Test strip (U) [Mass/Vol] Negative Negative mg/dL [facility] Ketones (U) [Mass/Vol] Negative Negative mg/dL [facility] Protein (U) [Mass/Vol] Negative Negative mg/dL [facility] Urine Reflex to Culture Not Indicated [facility] Urobilinogen Qn (U) 0.2 NINF [facility] Urinalysis, reflex to cultur stephen 07-14-2024 Bilirubin Ql (U) Negative Normal Negative [facility] Comment on above: Performed By: #### C BCWD #### [facility] [address] [place] [address] Clarity (U) Clear Normal Clear [facility] Comment on above: Performed By: #### C BCWD #### [facility] [address] [place] [address] Color (U) Yellow Normal Straw/Cimarron [facility] Comment on above: Performed By: #### C BCWD #### [facility] [address] [place] [address] Glucose Ql (U) Negative Normal Negative [facility] Comment on above: Performed By: #### C BCWD #### [facility] [address] [place] [address] Hemoglobin Ql (U) Negative Normal Negative [facility] Comment on above: Performed By: #### C BCWD #### [facility] [address] [place] [address] Ketones Ql (U) Negative Normal Negative [facility] Comment on above: Performed By: #### C BCWD #### [facility] [address] [place] [address] Leukocyte esterase Test strip Ql (U) Negative Normal Negative [facility] Comment on above: Performed By: #### C BCWD #### [facility] [address] [place] [address] Nitrite Ql (U) Negative Normal Negative [facility] Comment on above: Performed By: #### C BCWD #### [facility] [address] [place] [address] pH (U) 6.5 [pH] Normal 5.0-9.0 [facility] Comment on above: Performed By: #### C BCWD #### [facility] [address] [place] [address] Protein Ql (U) Negative Normal Negative [facility] Comment on above: Performed By: #### C BCWD #### [facility] [address] [place] [address] Specific gravity (U) [Rel density] 1.026 Normal 1.005-1.03 [facility] Comment on above: Performed By: #### C BCWD #### [facility] [address] [place] [address] Urine Reflexed to Culture Not Indicated Normal [facility] Comment on above: Performed By: #### C BCWD #### [facility] [address] [place] [address] Urobilinogen Qn (U) 0.2 {Bassam'U}/dL Normal < 2.0 [facility] Comment on above: Performed By: #### C BCWD #### [facility] [address] [place] [address] Urine Drug Screenon 07-15-19 25 Amphetamines Ql (U) Negative Negative <1000 ng/mL [facility] Barbiturates Screen Ql (U) Negative Negative < 200 ng/mL [facility] Benzodiazepines Ql (U) Negative Negative < 200 ng/mL [facility] Cannabinoids Screen Ql (U) Positive Abnormal Negative < 50 ng/mL [employer] [facility] Cocaine Ql (U) Negative Negative < 300 ng/mL [facility] Drug screen comment (U) [Interp] see below [facility] Comment on above: This method is a scr eening test to detect only these drug classes as part of a medical workup. Confirmatory testing by another method should be ordered if clinically indicated. FENTANYL SCREEN, URINE Negative Negative < 50 ng/mL [facility] Interpretation and review of laboratory results Abnormal [employer] [facility] Methadone Screen Ql (U) Negative Negative <300 ng/mL [employer] [facility] Opiates Screen Ql (U) Negative Negative < 300 ng/mL [employer] [facility] oxyCODONE Ql (U) Negative Negative <100 ng/mL [facility] Phencyclidine Ql (U) Negative Negative < 25 ng/mL [employer] [facility] Propoxyphene Screen Ql (U) Negative Negative <300 ng/mL [facility] CBC With Platelet and Differ entialon 07-13-2024 Basophils (Bld) [#/Vol] 0.1 10*3/uL Normal 0.0-0.2 [facility] Comment on above: Performed By: #### C BCWD #### [facility] [address] [place] [address] Basophils/100 WBC (Bld) 0.6 % Normal [facility] Comment on above: Performed By: #### C BCWD #### [facility] [address] [place] [address] Eosinophils (Bld) [#/Vol] 0.7 10*3/uL Normal 0.0-0.7 [facility] Comment on above: Performed By: #### C BCWD #### [facility] [address] [place] [address] Eosinophils/100 WBC (Bld) 5.2 % Normal [facility] Comment on above: Performed By: #### C BCWD #### [facility] [address] [place] [address] Erythrocyte distribution width (RBC) [Ratio] 12.0 % Normal 11.5-14.5 [facility] Comment on above: Performed By: #### C BCWD #### [facility] [address] [place] [address] Hematocrit (Bld) [Volume fraction] 48.2 % Normal 42.0-52.0 [facility] Comment on above: Performed By: #### C BCWD #### [facility] [address] [place] [address] Hemoglobin (Bld) [Mass/Vol] 16.1 g/dL Normal 14.0-18.0 [facility] Comment on above: Performed By: #### C BCWD #### [facility] [address] [place] [address] Lymphocytes (Bld) [#/Vol] 4.0 10*3/uL Normal 1.0-4.8 [facility] Comment on above: Performed By: #### C BCWD #### [facility] [address] [place] [address] Lymphocytes/100 WBC (Bld) 31.1 % Normal [facility] Comment on above: Performed By: #### C BCWD #### [facility] [address] [place] [address] MCH (RBC) [Entitic mass] 31.2 pg Normal 27.0-31.3 [facility] Comment on above: Performed By: #### C BCWD #### [facility] [address] [place] [address] MCHC 33.4 % Normal 33.0-37.0 [facility] Comment on above: Performed By: #### C BCWD #### [facility] [address] [place] [address] MCV (RBC) [Entitic vol] 93.4 fL Critically high 79.0-92.2 [facility] Comment on above: Performed By: #### C BCWD #### [facility] [address] [place] [address] Monocytes (Bld) [#/Vol] 1.1 10*3/uL Critically high 0.2-0.8 [facility] Comment on above: Performed By: #### C BCWD #### [facility] [address] [place] [address] Monocytes/100 WBC (Bld) 8.5 % Normal [facility] Comment on above: Performed By: #### C BCWD #### [facility] [address] [place] [address] Neutrophils (Bld) [#/Vol] 7.1 10*3/uL Critically high 1.4-6.5 [facility] Comment on above: Performed By: #### C BCWD #### [facility] [address] [place] [address] Neutrophils/100 WBC (Bld) 54.3 % Normal [facility] Comment on above: Performed By: #### C BCWD #### [facility] [address] [place] [address] Platelets (Bld) [#/Vol] 312 10*3/uL Normal 130-400 [facility] Comment on above: Performed By: #### C BCWD #### [facility] [address] [place] [address] RBC (Bld) [#/Vol] 5.16 10*6/uL Normal 4.70-6.10 [facility] Comment on above: Performed By: #### C BCWD #### [facility] [address] [place] [address] WBC (Bld) [#/Vol] 13.0 10*3/uL Critically high 4.8-10.8 [facility] Comment on above: Performed By: #### C BCWD #### [facility] [address] [place] [address] CT KIDNEY WO CONTRASTon 05-0 CT KIDNEY [...] Bullock MD 07/14/[address] [facility] CT Kidney WO contraston 05-0 Radiology Study observation (narrative) [facility] Comprehensive Metabolic Pane ashok 07-13-2024 Albumin [Mass/Vol] 4.7 g/dL Critically high 3.5-4.[address] [facility] Comment on above: Performed By: #### L ACID #### [facility] [address] [place] [address] ALP [Catalytic activity/Vol] 81 U/L Normal 35-104 [facility] Comment on above: Performed By: #### L ACID #### [facility] [address] [place] [address] ALT [Catalytic activity/Vol] 32 U/L Normal 0-41 [facility] Comment on above: Performed By: #### L ACID #### [facility] [address] [place] [address] Anion gap [Moles/Vol] 12 mmol/L Normal 9-15 [facility] Comment on above: Performed By: #### L ACID #### [facility] [address] [place] [address] AST [Catalytic activity/Vol] 22 U/L Normal 0-40 [facility] Comment on above: Performed By: #### L ACID #### [facility] [address] [place] [address] Bilirubin [Mass/Vol] mg/dL Normal 0.2-0.7 [facility] Comment on above: Performed By: #### L ACID #### [facility] [address] [place] [address] Calcium [Mass/Vol] 9.6 mg/dL Normal 8.5-9.9 [facility] Comment on above: Performed By: #### L ACID #### [facility] [address] [place] [address] Chloride [Moles/Vol] 99 mmol/L Normal 95-107 [facility] Comment on above: Performed By: #### L ACID #### [facility] [address] [place] [address] CO2 [Moles/Vol] 28 mmol/L Normal 20-31 [facility] Comment on above: Performed By: #### L ACID #### [facility] [address] [place] [address] Creatinine [Mass/Vol] 1.08 mg/dL Normal 0.70-1.20 [facility] Comment on above: Performed By: #### L ACID #### [facility] [address] [place] [address] GFR 87.4 Normal >60 [facility] Comment on above: Result Comment: Pedi [...] Performed By: #### L ACID #### [facility] [address] [place] [address] Globulin (S) [Mass/Vol] 3.2 g/dL Normal 2.3-3.5 [facility] Comment on above: Performed By: #### L ACID #### [facility] [address] [place] [address] Glucose [Mass/Vol] 87 mg/dL Normal 70-99 [facility] Comment on above: Performed By: #### L ACID #### [facility] [address] [place] [address] Potassium [Moles/Vol] 4.2 mmol/L Normal 3.4-4.9 [facility] Comment on above: Performed By: #### L ACID #### [facility] [address] [place] [address] Protein [Mass/Vol] 7.9 g/dL Normal 6.3-8.0 [facility] Comment on above: Performed By: #### L ACID #### [facility] [address] [place] [address] Sodium [Moles/Vol] 139 mmol/L Normal 135-144 [facility] Comment on above: Performed By: #### L ACID #### [facility] [address] [place] [address] Urea nitrogen [Mass/Vol] 25 mg/dL Critically high 6-20 [facility] Comment on above: Performed By: #### L ACID #### [facility] [address] [place] [address] Comprehensive metabolic 2000 panelon 07-13-2024 Albumin [Mass/Vol] 4.7 g/dL High 3.5 - 4.6 g/dL [facility] ALP [Catalytic activity/Vol] 81 U/L 35 - 104 U/L [facility] ALT [Catalytic activity/Vol] 32 U/L 0 - 41 U/L [facility] Anion gap [Moles/Vol] 12 mmol/L [facility] AST [Catalytic activity/Vol] 22 U/L 0 - 40 U/L [facility] Bilirubin [Mass/Vol] mg/dL 0.2 - 0.7 mg/dL [facility] Calcium [Mass/Vol] 9.6 mg/dL 8.5 - 9.9 mg/dL [facility] Chloride [Moles/Vol] 99 mmol/L [facility] CO2 [Moles/Vol] 28 mmol/L [facility] Creatinine [Mass/Vol] 1.08 mg/dL 0.70 - 1.20 mg/dL [facility] GFR/1.73 sq M.predicted among non-blacks MDRD (S/P/Bld) [Vol rate/Area] 87.4 mL/min/{1.73_m2} 60 - PINF [facility] Comment on above: Pediatric calculator link [...] [Mass/Vol] 3.2 g/dL 2.3 - 3.5 g/dL [facility] Glucose [Mass/Vol] 87 mg/dL 70 - 99 mg/dL [facility] Interpretation and review of laboratory results Abnormal [facility] Potassium [Moles/Vol] 4.2 mmol/L [facility] Protein [Mass/Vol] 7.9 g/dL 6.3 - 8.0 g/dL [facility] Sodium [Moles/Vol] 139 mmol/L [facility] Urea nitrogen [Mass/Vol] 25 mg/dL High 6 - 20 mg/dL [facility] Lactate (BldV) [Moles/Vol]on 07-13-2024 [facility] Lactic Acidon 07-13-2024 Lactate (BldV) [Moles/Vol] 1.3 mmol/L 0.5 - 2.2 mmol/L [facility] Lactate [Moles/Vol] 1.3 mmol/L Normal 0.5-2.2 [facility] Comment on above: Performed By: #### L ACID #### [facility] [address] [place] [address] Procalcitoninon 07-13-2024 Procalcitonin IA [Mass/Vol] 0.03 ng/mL 0.00 - 0.15 ng/mL [facility] Comment on above: Suspected Sepsis: Low likelihood [...] to determine the patient's Mortality Risk Prognosis ([email or web address]) In healthy neonates, plasma Procalcitonin (PCT) concentrations increase gradually after , reaching peak values at about 24 hours of age then decrease to normal values below 0.5 ng/mL by 48-72 hours of age. Procalcitonin 0.03 ng/mL Normal 0.00-0.15 [facility] Comment on above: Result Comment: Susp [...] to determine the patient's Mortality Risk Prognosis ([email or web address]) In healthy neonates, plasma Procalcitonin (PCT) concentrations increase gradually after , reaching peak values at about 24 hours of age then decrease to normal values below 0.5 ng/mL by 48-72 hours of age. Performed By: #### P ROCT #### [facility] [address] [place] [address] Procalcitonin IA [Mass/Vol]o n 07-13-2024 [facility] XR CERVICAL SPINE 2-3 VIEWSo n 06-06-2024 XR CERVICAL SPINE 2-3 VIEWS Interpreted By: Sha Foster, STUDY: XR CERVICAL SPINE 2-3 VIEWS; 06/06/2024 11:08 am INDICATION: Signs/Symptoms:Pain. ACCESSION NUMBER(S): [id number] ORDERING CLINICIAN: SHA FOSTER FINDINGS: AP lateral [...] Sha Foster 06/06/2024 3:56 PM Dictation workstation: [id number] [facility] XR Cervical spine 2 or 3 Vie wson 06-06-2024 Interpreted By: Sha Chacon, STUDY: XR CERVICAL SPINE 2-3 VIEWS; 06/06/2024 11:08 am INDICATION: Signs/Symptoms:Pain. ACCESSION NUMBER(S): [id number] ORDERING CLINICIAN: SHA FOSTER FINDINGS: AP lateral [...] Sha Foster 06/06/2024 3:56 PM Dictation workstation: [id number] Sha Watkins MD - 06/06/2024 Interpreted By: Sha Foster, STUDY: XR CERVICAL SPINE 2-3 VIEWS; 06/06/2024 11:08 am INDICATION: Signs/Symptoms:Pain. ACCESSION NUMBER(S): [id number] ORDERING CLINICIAN: SHA FOSTER FINDINGS: AP lateral [...] Sha Foster 06/06/2024 3:56 PM Dictation workstation: [id number] [facility] Work Phone: [facility] Work Phone: Radiology Study observation (narrative) [facility] Work Phone: CT CERVICAL SPINE WO [...] Cruz MD 05/19/[address] [facility] CT Cervical spine WO contras ton 05-19-2024 No acute abnormality of the cervical spine. [facility] EXAMINATION: CT OF THE CERVICAL SPINE [...] There is no prevertebral soft tissue swelling. [facility] Dorothy Cruz MD - 05/19/2024 EXAMINATION: CT [...] No acute abnormality of the cervical spine. [facility] CT Cervical spine WO contras tOrdered By: Dorothy Cruz on 05-19-2024 [facility] Work Phone: CT LUMBAR SPINE WO CONTRASTo [...] and L5-S1, with vacuum phenomenon. There is smes-pj-[id number] bilateral neural foraminal stenosis at these levels. SOFT TISSUES/RETROPERITONEUM: No paraspinal mass is seen. IMPRESSION: 1. No acute osseous abnormality of the lumbar spine. 2. Degenerative disc disease at L4-L5 and L5-S1. Interpreted by: Dorothy Cruz MD Signed by: Dorothy Cruz MD 05/19/[address] [facility] CT Lumbar spine WO contrasto n 05-19-2024 1. No acute osseous abnormality of the lumbar spine. 2. Degenerative disc disease at L4-L5 and L5-S1. [facility] RADIOLOGY EXAMINATION: CT OF THE [...] and L5-S1, with vacuum phenomenon. There is [id number] bilateral neural foraminal stenosis at these levels. SOFT TISSUES/RETROPERITONEUM: No paraspinal mass is seen. [facility] RADIOLOGY Dorothy Cruz MD - [...] and L5-S1, with vacuum phenomenon. There is jyxi-qp-lonanrlc bilateral neural foraminal stenosis at these levels. SOFT TISSUES/RETROPERITONEUM: No paraspinal mass is seen. IMPRESSION: 1. No acute osseous abnormality of the lumbar spine. 2. Degenerative disc disease at L4-L5 and L5-S1. [facility] No Panel Informationon 05-19 Radiology Study observation (narrative) [facility] XR HIP 2-3 VW W PELVIS [...] Liz MD 05/18/[address] [facility] XR Pelvis and Hip - left 2 V iewson 05-18-2024 Normal radiographs o f the left hip and pelvis. [facility] RADIOLOGY EXAMINATION: ONE XRAY VIEW [...] appearance. The bowel gas pattern is unremarkable. [facility] RADIOLOGY Jonnathan Liz MD - [...] radiographs of the left hip and pelvis. [facility] Radiology Study observation (narrative) [facility] XR Pelvis and Hip - left 2 V iewsOrdered By: Jonnathan Liz on 05-18-2024 [facility] Work Phone: XR CERVICAL SPINE 2-3 VIEWSo n 03-07-2024 XR CERVICAL SPINE 2-3 VIEWS Interpreted By: Sha Foster, STUDY: XR CERVICAL SPINE 2-3 VIEWS; 03/07/2024 10:52 am INDICATION: Signs/Symptoms:neck pain. ACCESSION NUMBER(S): [id number] ORDERING CLINICIAN: SHA FOSTER FINDINGS: AP lateral [...] Sha Foster 03/07/2024 11:17 AM Dictation workstation: [id number] [facility] XR Cervical spine 2 or 3 Vie wson 03-07-2024 Interpreted By: Sha Chacon, STUDY: XR CERVICAL SPINE 2-3 VIEWS; 03/07/2024 10:52 am INDICATION: Signs/Symptoms:neck pain. ACCESSION NUMBER(S): [id number] ORDERING CLINICIAN: SHA FOSTER FINDINGS: AP lateral [...] Sha Foster 03/07/2024 11:17 AM Dictation workstation: [id number] MMSha Dorantes MD - 03/07/2024 Interpreted By: Sha Foster, STUDY: XR CERVICAL SPINE 2-3 VIEWS; 03/07/2024 10:52 am INDICATION: Signs/Symptoms:neck pain. ACCESSION NUMBER(S): [id number] ORDERING CLINICIAN: SHA FOSTER FINDINGS: AP lateral [...] Sha Foster 03/07/2024 11:17 AM Dictation workstation: [id number] [facility] Work Phone: [facility] Work Phone: Radiology Study observation (narrative) [facility] Work Phone: Basic metabolic 2000 panelon 02-26-2024 Anion gap [Moles/Vol] 10 mmol/L 10 - 20 mmol/L [facility] Calcium [Mass/Vol] 8.9 mg/dL 8.6 - 10. 3 mg/dL [facility] Chloride [Moles/Vol] 102 mmol/L 98 - 107 mmol/L [facility] CO2 [Moles/Vol] 30 mmol/L 21 - 32 mmol/L [facility] Creatinine [Mass/Vol] 1.04 mg/dL 0.50 - 1.30 mg/dL [facility] eGFR - PINF [facility] Comment on above: Calculations of katie mated GFR are performed using the 2020 CKD-EPI Study Refit equation without the race variable for the IDMS-Traceable creatinine methods. https://jasn.asnjournals.org/content/early//ASN.228648579 8 Glucose [Mass/Vol] 124 mg/dL High 74 - 99 mg/dL [facility] Interpretation and review of laboratory results Abnormal [facility] Potassium [Moles/Vol] 4.2 mmol/L 3.5 - 5.3 mmol/L [facility] Sodium [Moles/Vol] 138 mmol/L 136 - 145 mmol/L [facility] Urea nitrogen [Mass/Vol] 11 mg/dL 6 - 23 mg/dL [facility] Anion gap [Moles/Vol] 10 mmol/L Normal 10-20 [facility] Comment on above: Performed By: #### 2 4323-8 #### ESTELITA LARKIN ([id number]) [facility] [address] [place] [address] Calcium [Mass/Vol] 8.9 mg/dL Normal 8.6-10.3 [facility] Comment on above: Performed By: #### 2 4323-8 #### ESTELITA LARKIN ([id number]) [facility] [address] [place] [address] Chloride [Moles/Vol] 102 mmol/L Normal 98-107 [facility] Comment on above: Performed By: #### 2 4323-8 #### ESTELITA LARKIN ([id number]) [facility] [address] [place] [address] CO2 [Moles/Vol] 30 mmol/L Normal 21-32 [facility] Comment on above: Performed By: #### 2 4323-8 #### ESTELITA LARKIN ([id number]) [facility] [address] [place] [address] Creatinine [Mass/Vol] 1.04 mg/dL Normal 0.50-1.30 [facility] Comment on above: Performed By: #### 2 4323-8 #### ESTELITA LARKIN ([id number]) [facility] [address] [place] [address] GFR/1.73 sq M.predicted MDRD (S/P/Bld) [Vol rate/Area] mL/min/{1.73_m2} Normal >60 [facility] Comment on above: Result Comment: Calc ulations of estimated GFR are performed using the 2020 CKD-EPI Study Refit equation without the race variable for the IDMS-Traceable creatinine methods. https://jasn.asnjournals.org/content/early//ASN.625479346 8 Performed By: #### 2 4323-8 #### ESTELITA LARKIN ([id number]) [facility] [address] [place] [address] Glucose [Mass/Vol] 124 mg/dL High 74-99 [facility] Comment on above: Performed By: #### 2 4323-8 #### ESTELITA LARKIN ([id number]) [facility] [address] [place] [address] Potassium [Moles/Vol] 4.2 mmol/L Normal 3.5-5.3 [facility] Comment on above: Performed By: #### 2 4323-8 #### ESTELITA LARKIN ([id number]) [facility] [address] [place] [address] Sodium [Moles/Vol] 138 mmol/L Normal 136-145 [facility] Comment on above: Performed By: #### 2 4323-8 #### ESTELITA LARKIN ([id number]) [facility] [address] [place] [address] Urea nitrogen [Mass/Vol] 11 mg/dL Normal 6-23 [facility] Comment on above: Performed By: #### 2 4323-8 #### ESTELITA LARKIN ([id number]) [facility] [address] [place] [address] CBC panel Auto (Bld)on 02-25 Erythrocyte distribution width (RBC) [Ratio] 11.9 % 11.5 - 14.5 % [facility] Hematocrit (Bld) [Volume fraction] 40.5 % Low 41.0 - 52.0 % [facility] Hemoglobin (Bld) [Mass/Vol] 13.2 g/dL Low 13.5 - 17.5 g/dL [facility] Interpretation and review of laboratory results Abnormal [facility] MCH (RBC) [Entitic mass] 31.8 pg 26.0 - 34.0 pg [facility] MCHC (RBC) [Mass/Vol] 32.6 g/dL 32.0 - 36.0 g/dL [facility] MCV (RBC) [Entitic vol] 98 fL 80 - 100 fL [facility] Nucleated RBC/100 WBC (Bld) [Ratio] 0 % [facility] Platelets (Bld) [#/Vol] 267 10*3/uL [facility] RBC (Bld) [#/Vol] 4.15 10*6/uL Low [facility] WBC (Bld) [#/Vol] 9.6 10*3/uL [facility] Erythrocyte distribution width (RBC) [Ratio] 11.9 % Normal 11.5-14.5 [facility] Comment on above: Performed By: #### 5 902-2 #### ESTELITA LARKIN ([id number]) [facility] [address] [place] [address] Hematocrit (Bld) [Volume fraction] 40.5 % Low 41.0-52.0 [facility] Comment on above: Performed By: #### 5 902-2 #### ESTELITA LARKIN ([id number]) [facility] [address] [place] [address] Hemoglobin (Bld) [Mass/Vol] 13.2 g/dL Low 13.5-17.5 [facility] Comment on above: Performed By: #### 5 902-2 #### ESTELITA LARKIN ([id number]) [facility] ([facility]) [address] [place] [address] 30409 MCH (RBC) [Entitic mass] 31.8 pg Normal 26.0-34.0 [facility] Comment on above: Performed By: #### 5 902-2 #### ESTELITA LARKIN ([id number]) [facility] ([facility] [address] [place] [address] 87326 MCHC (RBC) [Mass/Vol] 32.6 g/dL Normal 32.0-36.0 [facility] Comment on above: Performed By: #### 5 902-2 #### ESTELITA LARKIN ([id number]) [facility]) [address] [place] [address] 31589 MCV (RBC) [Entitic vol] 98 fL Normal 80-100 [facility] Comment on above: Performed By: #### 5 902-2 #### ESTELITA LARKIN ([id number]) [facility] ([facility]) [address] [place] [address] 78118 Nucleated RBC/100 WBC (Bld) [Ratio] 0.0 /100 WBCs Normal 0.0-0.0 [facility] Comment on above: Performed By: #### 5 902-2 #### ESTELITA LARKIN ([id number]) [facility] ([facility]) [address] [place] [address] 46394 Platelets (Bld) [#/Vol] 267 x10*3/uL Normal 150-450 [facility] Comment on above: Performed By: #### 5 902-2 #### ESTELITA LARKIN ([id number]) [facility]) [address] [place] [address] 52014 RBC (Bld) [#/Vol] 4.15 x10*6/uL Low 4.50-5.90 [facility] Comment on above: Performed By: #### 5 902-2 #### ESTELITA LARKIN ([id number]) [facility] ([facility]) [address] [place] [address] 50026 WBC (Bld) [#/Vol] 9.6 x10*3/uL Normal 4.4-11.3 [facility] Comment on above: Performed By: #### 5 902-2 #### ESTELITA LARKIN ([id number]) [facility]) [address] [place] [address] 33127 Bacteria identified Cx Nom ( Unsp spec)Ordered By: Radha Joyner on 02-25-2024 Interpretation and review of laboratory results Abnormal [facility] Microscopic observation Gram stain Nom (Unsp spec) (2+) Few Polymorphonuclear leukocytes Abnormal [facility] Microscopic observation Gram stain Nom (Unsp spec) Positive Abnormal [facility] Basic metabolic 2000 panelon 02-25-2024 Anion gap [Moles/Vol] 14 mmol/L 10 - 20 mmol/L [facility] Calcium [Mass/Vol] 8.7 mg/dL 8.6 - 10. 3 mg/dL [facility] Chloride [Moles/Vol] 99 mmol/L 98 - 107 mmol/L [facility] CO2 [Moles/Vol] 25 mmol/L 21 - 32 mmol/L [facility] Creatinine [Mass/Vol] 1.15 mg/dL 0.50 - 1.30 mg/dL [facility] GFR/1.73 sq M.predicted among non-blacks MDRD (S/P/Bld) [Vol rate/Area] 81 mL/min/{1.73_m2} - PINF [facility] Comment on above: Calculations of katie mated GFR are performed using the 2020 CKD-EPI Study Refit equation without the race variable for the IDMS-Traceable creatinine methods. https://jasn.asnjournals.org/content//ASN.813035763 8 Glucose [Mass/Vol] 176 mg/dL High 74 - 99 mg/dL [facility] Interpretation and review of laboratory results Abnormal [facility] Potassium [Moles/Vol] 4 mmol/L 3.5 - 5.3 mmol/L [facility] Sodium [Moles/Vol] 134 mmol/L Low 136 - 145 mmol/L [facility] Urea nitrogen [Mass/Vol] 17 mg/dL 6 - 23 mg/dL [facility] Anion gap [Moles/Vol] 14 mmol/L Normal 10-20 [facility] Comment on above: Performed By: #### 5 902-2 #### ESTELITA LARKIN ([id number]) [facility]) [address] [place] [address] 99363 Calcium [Mass/Vol] 8.7 mg/dL Normal 8.6-10.3 [facility] Comment on above: Performed By: #### 5 902-2 #### ESTELITA LARKIN ([id number]) [facility]) [address] [place] [address] Chloride [Moles/Vol] 99 mmol/L Normal 98-107 [facility] Comment on above: Performed By: #### 5 902-2 #### ESTELITA LARKIN ([id number]) [facility]) [address] [place] [address] CO2 [Moles/Vol] 25 mmol/L Normal 21-32 [facility] Comment on above: Performed By: #### 5 902-2 #### ESTELITA LARKIN ([id number]) [facility]) [address] [place] [address] Creatinine [Mass/Vol] 1.15 mg/dL Normal 0.50-1.30 [facility] Comment on above: Performed By: #### 5 902-2 #### ESTELITA LARKIN ([id number]) [facility] ([facility]) [address] [place] [address] 75713 Glomerular filtration rate/1.73 sq M.predicted 81 mL/min/1.73m*2 Normal >60 [facility] Comment on above: Result Comment: Calc ulations of estimated GFR are performed using the 2020 CKD-EPI Study Refit equation without the race variable for the IDMS-Traceable creatinine methods. https://jasn.asnjournals.org/content//ASN.611658584 8 Performed By: #### 5 902-2 #### ESTELITA LARKIN ([id number]) [facility] ([facility]) [address] [place] [address] 39704 Glucose [Mass/Vol] 176 mg/dL High 74-99 [facility] Comment on above: Performed By: #### 5 902-2 #### ESTELITA LARKIN ([id number]) [facility] ([facility]) [address] [place] [address] 91640 Potassium [Moles/Vol] 4.0 mmol/L Normal 3.5-5.3 [facility] Comment on above: Performed By: #### 5 902-2 #### ESTELITA LARKIN ([id number]) [facility] ([facility]) [address] [place] [address] 42583 Sodium [Moles/Vol] 134 mmol/L Low 136-145 [facility] Comment on above: Performed By: #### 5 902-2 #### ESTELITA LARKIN ([id number]) [facility] ([facility]) [address] [place] [address] 17885 Urea nitrogen [Mass/Vol] 17 mg/dL Normal 6-23 [facility] Comment on above: Performed By: #### 5 902-2 #### ESTELITA LARKIN ([id number]) [facility] ([facility]) [address] [place] [address] 02690 CBC panel Auto (Bld)on 02-24 Erythrocyte distribution width (RBC) [Ratio] 11.5 % 11.5 - 14.5 % [facility] Hematocrit (Bld) [Volume fraction] 38.4 % Low 41.0 - 52.0 % [facility] Hemoglobin (Bld) [Mass/Vol] 13.1 g/dL Low 13.5 - 17.5 g/dL [facility] Interpretation and review of laboratory results Abnormal [facility] MCH (RBC) [Entitic mass] 32.3 pg 26.0 - 34.0 pg [facility] MCHC (RBC) [Mass/Vol] 34.1 g/dL 32.0 - 36.0 g/dL [facility] MCV (RBC) [Entitic vol] 95 fL 80 - 100 fL [facility] Nucleated RBC/100 WBC (Bld) [Ratio] 0 % [facility] Platelets (Bld) [#/Vol] 261 10*3/uL [facility] RBC (Bld) [#/Vol] 4.05 10*6/uL Low [facility] WBC (Bld) [#/Vol] 15.5 10*3/uL [facility] Erythrocyte distribution width (RBC) [Ratio] 11.5 % Normal 11.5-14.5 [facility] Comment on above: Performed By: #### 5 902-2 #### ESTELITA LARKIN ([id number]) [facility]) [address] [place] [address] 59060 Hematocrit (Bld) [Volume fraction] 38.4 % Low 41.0-52.0 [facility] Comment on above: Performed By: #### 5 902-2 #### ESTELITA LARKIN ([id number]) [facility]) [address] [place] [address] 36540 Hemoglobin (Bld) [Mass/Vol] 13.1 g/dL Low 13.5-17.5 [facility] Comment on above: Performed By: #### 5 902-2 #### ESTLEITA LARKIN ([id number]) [facility] ([facility]) [address] [place] [address] 36911 MCH (RBC) [Entitic mass] 32.3 pg Normal 26.0-34.0 [facility] Comment on above: Performed By: #### 5 902-2 #### ESTELITA LARKIN ([id number]) [facility] ([facility]) [address] [place] [address] 27377 MCHC (RBC) [Mass/Vol] 34.1 g/dL Normal 32.0-36.0 [facility] Comment on above: Performed By: #### 5 902-2 #### ESTELITA LARKIN ([id number]) [facility]) [address] [place] [address] 46885 MCV (RBC) [Entitic vol] 95 fL Normal 80-100 [facility] Comment on above: Performed By: #### 5 902-2 #### ESTELITA LARKIN ([id number]) [facility] ([facility]) [address] [place] [address] 69563 Nucleated RBC/100 WBC (Bld) [Ratio] 0.0 /100 WBCs Normal 0.0-0.0 [facility] Comment on above: Performed By: #### 5 902-2 #### ESTELITA LARKIN ([id number]) [facility]) [address] [place] [address] 72226 Platelets (Bld) [#/Vol] 261 x10*3/uL Normal 150-450 [facility] Comment on above: Performed By: #### 5 902-2 #### ESTELITA LARKIN ([id number]) [facility] ([facility]) [address] [place] [address] RBC (Bld) [#/Vol] 4.05 x10*6/uL Low 4.50-5.90 [facility] Comment on above: Performed By: #### 5 902-2 #### ESTELITA LARKIN ([id number]) [facility] ([facility]) [address] [place] [address] WBC (Bld) [#/Vol] 15.5 x10*3/uL High 4.4-11.3 [facility] Comment on above: Performed By: #### 5 902-2 #### ESTELITA LARKIN ([id number]) [facility] ([facility]) [address] [place] [address] 67594 No Panel Informationon 02-24 [facility] Tissue/Wound Culture/SmearOr dered By: Radha Joyner on 02-25-2024 Bacteria identified Cx Nom (Unsp spec) (4+) Abundant Methicillin Resistant Staphylococcus aureus (MRSA) Abnormal [facility] Comment on above: Methicillin (Oxacill in) resistant Staphylococci are resistant to all currently available Penicillins, Beta-lactam/Beta-lactamase inhibitor combinations (including Ampicillin/Sulbactam, Amoxicillin/Clavulanate and Pipercillin/Tazobactam), Carbapenems and Cephalosporins (except Ceftaroline). Vancomycinon 02-25-2024 Vancomycin [Mass/Vol] 13.7 ug/mL 5.0 - 20.0 ug/mL [facility] Vancomycin [Mass/Vol] 13.7 ug/mL Normal 5.0-20.0 [facility] Comment on above: Order Comment: Vanco [...] By: #### 5 902-2 #### ESTELITA LARKIN ([id number]) [facility] ([facility]) [address] [place] [address] Vancomycin [Mass/Vol]on 02-12 Interpretation and review of laboratory results Normal [facility] Vancomycin levels can be monitored according [...] 30.0-40.0 ug/mL Trough (all ages): 10.0-20.0 ug/mL [facility] Basic metabolic 2000 panelon 02-24-2024 Anion gap [Moles/Vol] 10 mmol/L 10 - 20 mmol/L [facility] Calcium [Mass/Vol] 8.8 mg/dL 8.6 - 10. 3 mg/dL [facility] Chloride [Moles/Vol] 104 mmol/L 98 - 107 mmol/L [facility] CO2 [Moles/Vol] 29 mmol/L 21 - 32 mmol/L [facility] Creatinine [Mass/Vol] 1.17 mg/dL 0.50 - 1.30 mg/dL [facility] GFR/1.73 sq M.predicted among non-blacks MDRD (S/P/Bld) [Vol rate/Area] 80 mL/min/{1.73_m2} - PINF [facility] Comment on above: Calculations of katie mated GFR are performed using the 2020 CKD-EPI Study Refit equation without the race variable for the IDMS-Traceable creatinine methods. https://jasn.asnjournals.org/content/early/ASN.437257949 8 Glucose [Mass/Vol] 108 mg/dL High 74 - 99 mg/dL [facility] Interpretation and review of laboratory results Abnormal [facility] Potassium [Moles/Vol] 3.9 mmol/L 3.5 - 5.3 mmol/L [facility] Sodium [Moles/Vol] 139 mmol/L 136 - 145 mmol/L [facility] Urea nitrogen [Mass/Vol] 13 mg/dL 6 - 23 mg/dL [facility] Anion gap [Moles/Vol] 10 mmol/L Normal 10-20 [facility] Comment on above: Order Comment: Savannah long obtain BMP on this date xxxxxx, call your PCP to review results/treatment plansThank you Performed By: #### 5 902-2 #### ESTELITA LARKIN ([id number]) [facility]) [address] [place] [address] Calcium [Mass/Vol] 8.8 mg/dL Normal 8.6-10.3 [facility] Comment on above: Order Comment: Savannah long obtain BMP on this date xxxxxx, call your PCP to review results/treatment plansThank you Performed By: #### 5 902-2 #### ESTELITA LARKIN ([id number]) [facility]) [address] [place] [address] Chloride [Moles/Vol] 104 mmol/L Normal 98-107 [facility] Comment on above: Order Comment: Savannah long obtain BMP on this date xxxxxx, call your PCP to review results/treatment plansThank you Performed By: #### 5 902-2 #### ESTELITA LARKIN ([id number]) [facility]) [address] [place] [address] CO2 [Moles/Vol] 29 mmol/L Normal 21-32 [facility] Comment on above: Order Comment: Savannah long obtain BMP on this date xxxxxx, call your PCP to review results/treatment plansThank you Performed By: #### 5 902-2 #### ESTELITA LARKIN ([id number]) [facility]) [address] [place] [address] Creatinine [Mass/Vol] 1.17 mg/dL Normal 0.50-1.30 [facility] Comment on above: Order Comment: Savannah long obtain BMP on this date xxxxxx, call your PCP to review results/treatment plansThank you Performed By: #### 5 902-2 #### ESTELITA LARKIN ([id number]) [facility]) [address] [place] [address] Glomerular filtration rate/1.73 sq M.predicted 80 mL/min/1.73m*2 Normal >60 [facility] Comment on above: Order Comment: Savannah long obtain BMP on this date xxxxxx, call your PCP to review results/treatment plansThank you Result Comment: Calc ulations of estimated GFR are performed using the 2020 CKD-EPI Study Refit equation without the race variable for the IDMS-Traceable creatinine methods. https://jasn.asnjournals.org/content//ASN.007071658 8 Performed By: #### 5 902-2 #### ESTELITA LARKIN ([id number]) [facility]) [address] [place] [address] Glucose [Mass/Vol] 108 mg/dL High 74-99 [facility] Comment on above: Order Comment: Savannah long obtain BMP on this date xxxxxx, call your PCP to review results/treatment plansThank you Performed By: #### 5 902-2 #### ESTELITA LARKIN ([id number]) [facility]) [address] [place] [address] 09115 Potassium [Moles/Vol] 3.9 mmol/L Normal 3.5-5.3 [facility] Comment on above: Order Comment: Savannah long obtain BMP on this date xxxxxx, call your PCP to review results/treatment plansThank you Performed By: #### 5 902-2 #### ESTELITA LARKIN ([id number]) [facility]) [address] [place] [address] 92369 Sodium [Moles/Vol] 139 mmol/L Normal 136-145 [facility] Comment on above: Order Comment: Savannah long obtain BMP on this date xxxxxx, call your PCP to review results/treatment plansThank you Performed By: #### 5 902-2 #### ESTELITA LARKIN ([id number]) [facility]) [address] [place] [address] 19289 Urea nitrogen [Mass/Vol] 13 mg/dL Normal 6-23 [facility] Comment on above: Order Comment: Savannah long obtain BMP on this date xxxxxx, call your PCP to review results/treatment plansThank you Performed By: #### 5 902-2 #### ESTELITA LARKIN ([id number]) [facility]) [address] [place] [address] 00666 CBC panel Auto (Bld)on 02-23 Erythrocyte distribution width (RBC) [Ratio] 11.6 % 11.5 - 14.5 % [facility] Hematocrit (Bld) [Volume fraction] 40.2 % Low 41.0 - 52.0 % [facility] Hemoglobin (Bld) [Mass/Vol] 13.3 g/dL Low 13.5 - 17.5 g/dL [facility] Interpretation and review of laboratory results Abnormal [facility] MCH (RBC) [Entitic mass] 32 pg 26.0 - 34.0 pg [facility] MCHC (RBC) [Mass/Vol] 33.1 g/dL 32.0 - 36.0 g/dL [facility] MCV (RBC) [Entitic vol] 97 fL 80 - 100 fL [facility] Nucleated RBC/100 WBC (Bld) [Ratio] 0 % [facility] Platelets (Bld) [#/Vol] 235 10*3/uL [facility] RBC (Bld) [#/Vol] 4.15 10*6/uL Low [facility] WBC (Bld) [#/Vol] 7.5 10*3/uL [facility] Erythrocyte distribution width (RBC) [Ratio] 11.6 % Normal 11.5-14.5 [facility] Comment on above: Performed By: #### 5 902-2 #### ESTELITA LARKIN ([id number]) [facility] ([facility]) [address] [place] [address] 95777 Hematocrit (Bld) [Volume fraction] 40.2 % Low 41.0-52.0 [facility] Comment on above: Performed By: #### 5 902-2 #### ESTELITA LARKIN ([id number]) [facility] ([facility]) [address] [place] [address] 35286 Hemoglobin (Bld) [Mass/Vol] 13.3 g/dL Low 13.5-17.5 [facility] Comment on above: Performed By: #### 5 902-2 #### ESTELITA LARKIN ([id number]) [facility]) [address] [place] [address] 35985 MCH (RBC) [Entitic mass] 32.0 pg Normal 26.0-34.0 [facility] Comment on above: Performed By: #### 5 902-2 #### ESTELITA LARKIN ([id number]) [facility] ([facility]) [address] [place] [address] 48947 MCHC (RBC) [Mass/Vol] 33.1 g/dL Normal 32.0-36.0 [facility] Comment on above: Performed By: #### 5 902-2 #### ESTELITA LARKIN ([id number]) [facility]) [address] [place] [address] 72848 MCV (RBC) [Entitic vol] 97 fL Normal 80-100 [facility] Comment on above: Performed By: #### 5 902-2 #### ESTELITA LARKIN ([id number]) [facility]) [address] [place] [address] 89007 Nucleated RBC/100 WBC (Bld) [Ratio] 0.0 /100 WBCs Normal 0.0-0.0 [facility] Comment on above: Performed By: #### 5 902-2 #### ESTELITA LARKIN ([id number]) [facility]) [address] [place] [address] 25264 Platelets (Bld) [#/Vol] 235 x10*3/uL Normal 150-450 [facility] Comment on above: Performed By: #### 5 902-2 #### ESTELITA LARKIN ([id number]) [facility]) [address] [place] [address] 44648 RBC (Bld) [#/Vol] 4.15 x10*6/uL Low 4.50-5.90 [facility] Comment on above: Performed By: #### 5 902-2 #### ESTELITA LARKIN ([id number]) [facility] ([facility]) [address] [place] [address] 63372 WBC (Bld) [#/Vol] 7.5 x10*3/uL Normal 4.4-11.3 [facility] Comment on above: Performed By: #### 5 902-2 #### ESTELITA LARKIN ([id number]) [facility] ([facility]) [address] [place] [address] 18705 FL FLUORO IMAGES NO CHARGEon 02-24-2024 FL FLUORO IMAGES NO CHARGE These images are not reportable by radiology and will not be interpreted by Radiologists. Normal [facility] OPERATIVE IMAGESon 4 OPERATIVE IMAGES Please see OpNote on Notes tab for findings. Normal [facility] Operative Imageson 4 Please see OpNote on Notes tab for findings. IMAGING Radiology Study observation (narrative) [facility] Work Phone: Operative ImagesOrdered By: Generic Uh Optime on 02-24-2024 [facility] SST TOPon 02-24-2024 Extra Tube Hold for add-ons. [facility] Comment on above: Auto resulted. [facility] XR tomography Unspecified shamika dy regionon 02-24-2024 These images are not reportable by radiology and will not be interpreted by Radiologists. IMAGING Bacteria identifiedon 2023 Bacteria identified Cx Nom (Unsp spec) Test: Tissue/Wound Culture/Smear Specimen Source: Wound/Tissue Specimen Type: Tissue/Biopsy Specimen Date: 02/23/202450 Result Date: 02/25/2024925 Result Status: Final result Abnormal: Yes Resulting Lab: [facility] [address] [place] [address] CULTURE (4+) Abundant Methicillin Resistant Staphylococcus aureus [...] ug/ml Susceptible VANCOMYCIN 1.000 ug/ml Susceptible Abnormal [facility] Comment on above: Performed By: #### 5 902-2 #### ESTELITA LARKIN ([id number]) [facility] ([facility]) [address] [place] [address] ECG 12-LEADon 02-23-2024 ECG 12-LEAD Ventricular Rate 49 Atrial Rate 49 P-R Interval 156 QRS Duration 88 Q-T Interval 452 QTC Calculation(Bazett) 408 P [place] 38 R [place] 53 T [place] 48 QRS Count 8 Q Onset 224 P Onset 146 P Offset 202 T Offset 450 QTC Fredericia 422 Diagnosis Sinus bradycardia with sinus arrhythmia Otherwise normal ECG When compared with ECG of 16-OCT-2015 11:18, No significant change was found Confirmed by Kris Segovia ([id number]) on 02/27/2024 10:05:52 AM Normal [facility] Lavender Topon 02-23-2024 Extra Tube Hold for add-ons. [facility] Comment on above: Auto resulted. [facility] Vancomycinon 02-23-2024 Vancomycin [Mass/Vol] 7.9 ug/mL 5.0 - 20.0 ug/mL [facility] Vancomycin [Mass/Vol] 7.9 ug/mL Normal 5.0-20.0 [facility] Comment on above: Order Comment: Vanco [...] By: #### 5 902-2 #### ESTELITA LARKIN ([id number]) [facility] ([facility]) [address] [place] [address] 71225 Vancomycin [Mass/Vol] 16.3 ug/mL 5.0 - 20.0 ug/mL [facility] Vancomycin [Mass/Vol] 16.3 ug/mL Normal 5.0-20.0 [facility] Comment on above: Order Comment: Vancomycin [...] By: #### 2 0578-1 #### ESTELITA LARKIN ([id number]) [facility] ([facility]) [address] [place] [address] 68490 Vancomycin [Mass/Vol]on 02-12 Interpretation and review of laboratory results Normal [facility] Vancomycin levels can be monitored according [...] 30.0-40.0 ug/mL Trough (all ages): 10.0-20.0 ug/mL [facility] Interpretation and review of laboratory results Normal [facility] Vancomycin levels can be monitored according [...] 30.0-40.0 ug/mL Trough (all ages): 10.0-20.0 ug/mL [facility] Bacteria identifiedon 2023 Bacteria identified Cx Nom (Bld) Test: Blood Culture Specimen Source: Peripheral Venipuncture Specimen Type: Blood culture Specimen Date: 02/22/20242035 Result Date: 02/27/2024301 Result Status: Final result Abnormal: No Resulting Lab: [facility] [address] [place] [address] CULTURE No growth at 4 days - FINAL REPORT [facility] Comment on above: Performed By: #### 6 00-7 #### SERENE Sandra ([id number]) [facility] ([facility]) [address] [place] [address] Blood type and Indirect anti body screen panel (Bld)on 02-22-2024 ABO group Nom (Bld) A [facility] Blood group antibody screen Ql Negative [facility] D Ag Ql (Bld) Positive [facility] ABO group Nom (Bld) A [facility] Comment on above: Performed By: #### 3 4532-2 #### ESTELITA LARKIN ([id number]) [facility] ([facility]) [address] [place] [address] Blood group antibody screen Ql Negative [facility] Comment on above: Performed By: #### 3 4532-2 #### ESTELITA LARKIN ([id number]) [facility] ([facility]) [address] [place] [address] D Ag Ql (Bld) Positive [facility] Comment on above: Performed By: #### 3 4532-2 #### ESTELITA LARKIN ([id number]) [facility] ([facility]) [address] [place] [address] US C reactive proteinon 024 CRP [Mass/Vol] 1.16 mg/dL High <1.00 [facility] Comment on above: Performed By: #### 1 988-5 #### ESTELITA LARKIN ([id number]) [facility] ([facility]) [address] [place] [address] C-reactive proteinon 024 CRP [Mass/Vol] 1.16 mg/dL High NINF - 1.00 mg/dL [facility] CBC W Auto Differential pane l (Bld)on 02-22-2024 Basophils (Bld) [#/Vol] 0.05 10*3/uL [facility] Basophils/100 WBC (Bld) 0.4 % 0.0 - 2.0 % [facility] Eosinophils (Bld) [#/Vol] 0.21 10*3/uL [facility] Eosinophils/100 WBC (Bld) 1.6 % 0.0 - 6.0 % [facility] Erythrocyte distribution width (RBC) [Ratio] 11.7 % 11.5 - 14.5 % [facility] Hematocrit (Bld) [Volume fraction] 41.6 % 41.0 - 52.0 % [facility] Hemoglobin (Bld) [Mass/Vol] 14.3 g/dL 13.5 - 17.5 g/dL [facility] Immature granulocytes (Bld) [#/Vol] 0.06 10*3/uL [facility] Immature granulocytes/100 WBC (Bld) 0.5 % 0.0 - 0.9 % [facility] Comment on above: Immature Granulocyte Count (IG) includes promyelocytes, myelocytes and metamyelocytes but does not include bands. Percent differential counts (%) should be interpreted in the context of the absolute cell counts (cells/UL). Interpretation and review of laboratory results Abnormal [facility] Lymphocytes (Bld) [#/Vol] 2.31 10*3/uL [facility] Lymphocytes/100 WBC (Bld) 17.7 % 13.0 - 44.0 % [facility] MCH (RBC) [Entitic mass] 32.2 pg 26.0 - 34.0 pg [facility] MCHC (RBC) [Mass/Vol] 34.4 g/dL 32.0 - 36.0 g/dL [facility] MCV (RBC) [Entitic vol] 94 fL 80 - 100 fL [facility] Monocytes (Bld) [#/Vol] 0.95 10*3/uL [facility] Monocytes/100 WBC (Bld) 7.3 % 2.0 - 10.0 % [facility] Neutrophils (Bld) [#/Vol] 9.46 10*3/uL High [facility] Comment on above: Percent differential counts (%) should be interpreted in the context of the absolute cell counts (cells/uL). Neutrophils/100 WBC (Bld) 72.5 % 40.0 - 80.0 % [facility] Nucleated RBC/100 WBC (Bld) [Ratio] 0 % [facility] Platelets (Bld) [#/Vol] 262 10*3/uL [facility] RBC (Bld) [#/Vol] 4.44 10*6/uL Low [facility] WBC (Bld) [#/Vol] 13 10*3/uL High [facility] Basophils (Bld) [#/Vol] 0.05 x10*3/uL Normal 0.00-0.10 [facility] Comment on above: Performed By: #### 5 7021-8 #### ESTELITA LARKIN ([id number]) [facility] (C) [address] [place] [address] Basophils/100 WBC (Bld) 0.4 % Normal 0.0-2.0 [facility] Comment on above: Performed By: #### 5 7021-8 #### ESTELITA LARKIN ([id number]) [facility] ([facility]) [address] [place] [address] Eosinophils (Bld) [#/Vol] 0.21 x10*3/uL Normal 0.00-0.70 [facility] Comment on above: Performed By: #### 5 7021-8 #### ESTELITA LARKIN ([id number]) [facility] ([facility]) [address] [place] [address] 00137 Eosinophils/100 WBC (Bld) 1.6 % Normal 0.0-6.0 [facility] Comment on above: Performed By: #### 5 7021-8 #### ESTELITA LARKIN ([id number]) [facility] ([facility]) [address] [place] [address] 22467 Erythrocyte distribution width (RBC) [Ratio] 11.7 % Normal 11.5-14.5 [facility] Comment on above: Performed By: #### 5 7021-8 #### ESTELITA LARKIN ([id number]) [facility] (C) [address] [place] [address] 39734 Hematocrit (Bld) [Volume fraction] 41.6 % Normal 41.0-52.0 [facility] Comment on above: Performed By: #### 5 7021-8 #### ESTELITA LARKIN ([id number]) [facility] ([facility]) [address] [place] [address] 24758 Hemoglobin (Bld) [Mass/Vol] 14.3 g/dL Normal 13.5-17.5 [facility] Comment on above: Performed By: #### 5 7021-8 #### ESTELITA LARKIN ([id number]) [facility] ([facility]) [address] [place] [address] 50098 Immature granulocytes (Bld) [#/Vol] 0.06 x10*3/uL Normal 0.00-0.70 [facility] Comment on above: Performed By: #### 5 7021-8 #### ESTELITA LARKIN ([id number]) [facility] ([facility]) [address] [place] [address] 76047 Immature granulocytes/100 WBC (Bld) 0.5 % Normal 0.0-0.9 [facility] Comment on above: Result Comment: Tamiko ture Granulocyte Count (IG) includes promyelocytes, myelocytes and metamyelocytes but does not include bands. Percent differential counts (%) should be interpreted in the context of the absolute cell counts (cells/UL). Performed By: #### 5 7021-8 #### ESTELITA LARKIN ([id number]) [facility] ([facility]) [address] [place] [address] Lymphocytes (Bld) [#/Vol] 2.31 x10*3/uL Normal 1.20-4.80 [facility] Comment on above: Performed By: #### 5 7021-8 #### ESTELITA LARKIN ([id number]) [facility] ([facility]) [address] [place] [address] Lymphocytes/100 WBC (Bld) 17.7 % Normal 13.0-44.0 [facility] Comment on above: Performed By: #### 5 7021-8 #### ESTELITA LARKIN ([id number]) [facility] ([facility]) [address] [place] [address] 10988 MCH (RBC) [Entitic mass] 32.2 pg Normal 26.0-34.0 [facility] Comment on above: Performed By: #### 5 7021-8 #### ESTELITA LARKIN ([id number]) [facility] ([facility]) [address] [place] [address] 34757 MCHC (RBC) [Mass/Vol] 34.4 g/dL Normal 32.0-36.0 [facility] Comment on above: Performed By: #### 5 7021-8 #### ESTELITA LARKIN ([id number]) [facility] ([facility]) [address] [place] [address] 80234 MCV (RBC) [Entitic vol] 94 fL Normal 80-100 [facility] Comment on above: Performed By: #### 5 7021-8 #### ESTELITA LARKIN ([id number]) [facility] ([facility]) [address] [place] [address] 68787 Monocytes (Bld) [#/Vol] 0.95 x10*3/uL Normal 0.10-1.00 [facility] Comment on above: Performed By: #### 5 7021-8 #### ESTELITA LARKIN ([id number]) [facility] ([facility]) [address] [place] [address] 14027 Monocytes/100 WBC (Bld) 7.3 % Normal 2.0-10.0 [facility] Comment on above: Performed By: #### 5 7021-8 #### ESTELITA LARKIN ([id number]) [facility] (EM) [address] [place] [address] 97743 Neutrophils (Bld) [#/Vol] 9.46 x10*3/uL High 1.20-7.70 [facility] Comment on above: Result Comment: Perc ent differential counts (%) should be interpreted in the context of the absolute cell counts (cells/uL). Performed By: #### 5 7021-8 #### ESTELITA LARKIN ([id number]) [facility] ([facility]) [address] [place] [address] 64308 Neutrophils/100 WBC (Bld) 72.5 % Normal 40.0-80.0 [facility] Comment on above: Performed By: #### 5 7021-8 #### ESTELITA LARKIN ([id number]) [facility] ([facility]) [address] [place] [address] 13219 Nucleated RBC/100 WBC (Bld) [Ratio] 0.0 /100 WBCs Normal 0.0-0.0 [facility] Comment on above: Performed By: #### 5 7021-8 #### ESTELITA LARKIN ([id number]) [facility] ([facility]) [address] [place] [address] 11472 Platelets (Bld) [#/Vol] 262 x10*3/uL Normal 150-450 [facility] Comment on above: Performed By: #### 5 7021-8 #### ESTELITA LARKIN ([id number]) [facility] ([facility]) [address] [place] [address] RBC (Bld) [#/Vol] 4.44 x10*6/uL Low 4.50-5.90 [facility] Comment on above: Performed By: #### 5 7021-8 #### ESTELITA VIOLETA PORTILLO ([id number]) [facility] ([facility]) [address] [place] [address] WBC (Bld) [#/Vol] 13.0 x10*3/uL High 4.4-11.3 [facility] Comment on above: Performed By: #### 5 7021-8 #### ESTELITA VIOLETA PORTILLO ([id number]) [facility] ([facility]) [address] [place] [address] CRP [Mass/Vol]on 02-22-2024 Interpretation and review of laboratory results [facility] CT CHEST W IV CONTRASTon CT CHEST W IV CONTRAST Interpreted By: Phillip Mojica, STUDY: CT CHEST W IV CONTRAST; 02/22/2024 10:18 pm INDICATION: Signs/Symptoms:multiple abscess to Left armpit. COMPARISON: None. ACCESSION NUMBER(S): [id number] ORDERING CLINICIAN: HALEY YATES TECHNIQUE: Contiguous axial [...] Fleischner Society 2017, Radiology. 2017 [place];284 (1):228-243.) [email or web address] Signed by: Phillip Mojica 02/22/2024 11:09 PM Dictation workstation: [id number] [facility] CT Chest W contrast Pee Multiple [...] Fleischner Society 2017, Radiology. 2017 [place];284 (1):228-243.) [email or web address] Signed by: Phillip Mojica 02/22/2024 11:09 PM Dictation workstation: [id number] [facility] Interpreted By: Phillip Varner, STUDY: CT CHEST W IV CONTRAST; 02/22/2024 10:18 pm INDICATION: Signs/Symptoms:multiple abscess to Left armpit. COMPARISON: None. ACCESSION NUMBER(S): [id number] ORDERING CLINICIAN: HALEY YATES TECHNIQUE: Contiguous axial [...] to Left armpit. COMPARISON: None. ACCESSION NUMBER(S): [id number] ORDERING CLINICIAN: HALEY YATES TECHNIQUE: Contiguous axial [...] Phillip Mojica 02/22/2024 11:09 PM Dictation workstation: [id number] [facility] Work Phone: Radiology Study observation (narrative) [facility] Work Phone: CT Chest W contrast IVOrdere d By: Phillip Mojica on 02-22-2024 [facility] Work Phone: Coagulation tissue factor in ducedon 02-22-2024 PT Coag (PPP) [Time] 12.7 s Normal 9.8-12.8 [facility] Comment on above: Performed By: #### 5 902-2 #### ESTELITA LARKIN ([id number]) [facility] ([facility]) [address] [place] [address] Comprehensive metabolic 2000 panelon 02-22-2024 Albumin BCP dye [Mass/Vol] 4.4 g/dL 3.4 - 5.0 g/dL [facility] ALP [Catalytic activity/Vol] 69 U/L 33 - 120 U/L [facility] ALT With P-5'-P [Catalytic activity/Vol] 15 U/L 10 - 52 U/L [facility] Comment on above: Patients treated wit h Sulfasalazine may generate falsely decreased results for ALT. Anion gap [Moles/Vol] 12 mmol/L 10 - 20 mmol/L [facility] AST With P-5'-P [Catalytic activity/Vol] 11 U/L 9 - 39 U/L [facility] Bilirubin [Mass/Vol] 0.4 mg/dL 0.0 - 1.2 mg/dL [facility] Calcium [Mass/Vol] 9.2 mg/dL 8.6 - 10. 3 mg/dL [facility] Chloride [Moles/Vol] 103 mmol/L 98 - 107 mmol/L [facility] CO2 [Moles/Vol] 27 mmol/L 21 - 32 mmol/L [facility] Creatinine [Mass/Vol] 1.04 mg/dL 0.50 - 1.30 mg/dL [facility] eGFR - PINF [facility] Comment on above: Calculations of katie mated GFR are performed using the 2020 CKD-EPI Study Refit equation without the race variable for the IDMS-Traceable creatinine methods. https://jasn.asnjournals.org/content/early/ASN.925161559 8 Glucose [Mass/Vol] 100 mg/dL High 74 - 99 mg/dL [facility] Interpretation and review of laboratory results Abnormal [facility] Potassium [Moles/Vol] 3.9 mmol/L 3.5 - 5.3 mmol/L [facility] Protein [Mass/Vol] 7.4 g/dL 6.4 - 8.2 g/dL [facility] Sodium [Moles/Vol] 138 mmol/L 136 - 145 mmol/L [facility] Urea nitrogen [Mass/Vol] 20 mg/dL 6 - 23 mg/dL [facility] Albumin BCP dye [Mass/Vol] 4.4 g/dL Normal 3.4-5.0 [facility] Comment on above: Performed By: #### 2 4323-8 #### ESTELITA LARKIN ([id number]) [facility] ([facility]) [address] [place] [address] ALP [Catalytic activity/Vol] 69 U/L Normal 33-120 [facility] Comment on above: Performed By: #### 2 4323-8 #### ESTELITA LARKIN ([id number]) [facility] ([facility]) [address] [place] [address] 08882 ALT With P-5'-P [Catalytic activity/Vol] 15 U/L Normal 10-52 [facility] Comment on above: Result Comment: Elvi ents treated with Sulfasalazine may generate falsely decreased results for ALT. Performed By: #### 2 4323-8 #### AVTARIBKARI LARKIN ([id number]) [facility] ([facility]) [address] [place] [address] 07402 Anion gap [Moles/Vol] 12 mmol/L Normal 10-20 [facility] Comment on above: Performed By: #### 2 4323-8 #### ESTELITA LARKIN ([id number]) [facility] ([facility]) [address] [place] [address] 56131 AST With P-5'-P [Catalytic activity/Vol] 11 U/L Normal 9-39 [facility] Comment on above: Performed By: #### 2 4323-8 #### ESTELITA MCDANIEL RIO BANDAR ([id number]) [facility] ([facility]) [address] [place] [address] 90364 Bilirubin [Mass/Vol] 0.4 mg/dL Normal 0.0-1.2 [facility] Comment on above: Performed By: #### 2 4323-8 #### AVTARIBKARI MCDANIEL RIO BANDAR ([id number]) [facility] ([facility]) [address] [place] [address] 66251 Calcium [Mass/Vol] 9.2 mg/dL Normal 8.6-10.3 [facility] Comment on above: Performed By: #### 2 4323-8 #### AVTARIBKARI LARKIN ([id number]) [facility] ([facility]) [address] [place] [address] 35274 Chloride [Moles/Vol] 103 mmol/L Normal 98-107 [facility] Comment on above: Performed By: #### 2 4323-8 #### AVTARIBKARI MCDANIEL RIO BANDAR ([id number]) [facility] ([facility]) [address] [place] [address] 43409 CO2 [Moles/Vol] 27 mmol/L Normal 21-32 [facility] Comment on above: Performed By: #### 2 4323-8 #### AVTARIBKARI MCDANIEL RIO BANDAR ([id number]) [facility] ([facility]) [address] [place] [address] 69817 Creatinine [Mass/Vol] 1.04 mg/dL Normal 0.50-1.30 [facility] Comment on above: Performed By: #### 2 4323-8 #### ESTELITA LARKIN ([id number]) [facility] ([facility]) [address] [place] [address] 49878 GFR/1.73 sq M.predicted MDRD (S/P/Bld) [Vol rate/Area] mL/min/{1.73_m2} Normal >60 [facility] Comment on above: Result Comment: Calc ulations of estimated GFR are performed using the 2020 CKD-EPI Study Refit equation without the race variable for the IDMS-Traceable creatinine methods. https://jasn.asnjournals.org/content/early//ASN.034225911 8 Performed By: #### 2 4323-8 #### ESTELITA LARKIN ([id number]) [facility] ([facility]) [address] [place] [address] 56519 Glucose [Mass/Vol] 100 mg/dL High 74-99 [facility] Comment on above: Performed By: #### 2 4323-8 #### ESTELITA LARKIN ([id number]) [facility] ([facility]) [address] [place] [address] 67606 Potassium [Moles/Vol] 3.9 mmol/L Normal 3.5-5.3 [facility] Comment on above: Performed By: #### 2 4323-8 #### ESTELITA LARKIN ([id number]) [facility] ([facility]) [address] [place] [address] 72566 Protein [Mass/Vol] 7.4 g/dL Normal 6.4-8.2 [facility] Comment on above: Performed By: #### 2 4323-8 #### ESTELITA LARKIN ([id number]) [facility] ([facility]) [address] [place] [address] 29905 Sodium [Moles/Vol] 138 mmol/L Normal 136-145 [facility] Comment on above: Performed By: #### 2 4323-8 #### ESTELITA LARKIN ([id number]) [facility] ([facility]) [address] [place] [address] 34936 Urea nitrogen [Mass/Vol] 20 mg/dL Normal 6-23 [facility] Comment on above: Performed By: #### 2 4323-8 #### ESTELITA LARKIN ([id number]) [facility] ([facility]) [address] [place] [address] 38710 ESR Westergren method (Bld) [Velocity]on 02-22-2024 ESR (Bld) [Velocity] 25 mm/h High 0 - 15 mm/h [facility] Interpretation and review of laboratory results Abnormal [facility] ESR (Bld) [Velocity] 25 mm/h High 0-15 [facility] Comment on above: Performed By: #### 4 537-7 #### ESTELITA LARKIN ([id number]) [facility] ([facility]) [address] [place] [address] 64265 PT Coag (PPP) [Time]on 02-21 INR Coag (PPP) [Relative time] 1.1 {INR} 0.9 - 1.1 [facility] Interpretation and review of laboratory results Normal [facility] INR Coag (PPP) [Relative time] 1.1 Normal 0.9-1.1 [facility] Comment on above: Performed By: #### 5 902-2 #### ESTELITA LARKIN ([id number]) [facility] ([facility]) [address] [place] [address] 78156 Protime-INRon 02-22-2024 PT Coag (PPP) [Time] 12.7 s [facility] SST TOPon 02-22-2024 Extra Tube Hold for add-ons. [facility] Comment on above: Auto resulted. [facility] MR CERVICAL SPINE WO IV CONT RASTon 02-17-2024 MR CERVICAL SPINE WO IV CONTRAST Interpreted By: Luana Lawson and Lawrence Austen STUDY: MR CERVICAL SPINE WO IV CONTRAST; MR LUMBAR SPINE W AND WO IV CONTRAST; MR THORACIC SPINE WO IV CONTRAST; 02/17/2024 7:08 pm; 02/17/2024 7:09 pm INDICATION: Signs/Symptoms:pain. ,M54.10 Radiculopathy, site unspecified COMPARISON: Radiograph 10/19/2017, MRI 08/17/2016. ACCESSION NUMBER(S): [id number]; [id number]; [id number] ORDERING CLINICIAN: SHA FOSTER TECHNIQUE: Sagittal T1, [...] and bilateral C6- (more content not included)... [facility] Comment on above: Order Comment: [facility] MR LUMBAR SPINE W AND WO IV CONTRASTon 02-17-2024 MR LUMBAR SPINE W AND WO IV CONTRAST Interpreted By: Luana Lawson and Lawrence Usama STUDY: MR CERVICAL SPINE WO IV CONTRAST; MR LUMBAR SPINE W AND WO IV CONTRAST; MR THORACIC SPINE WO IV CONTRAST; 02/17/2024 7:08 pm; 02/17/2024 7:09 pm INDICATION: Signs/Symptoms:pain. ,M54.10 Radiculopathy, site unspecified COMPARISON: Radiograph 10/19/2017, MRI 08/17/2016. ACCESSION NUMBER(S): [id number]; [id number]; [id number] ORDERING CLINICIAN: SHA FOSTER TECHNIQUE: Sagittal T1, [...] and bilateral C6- (more content not included)... [facility] Comment on above: Order Comment: QUINTIN TOLEDO MR THORACIC SPINE WO IV CONT [facility] 02-17-2024 MR THORACIC SPINE WO IV CONTRAST Interpreted By: Luana Lawson and Lawrence Austen STUDY: MR CERVICAL SPINE WO IV CONTRAST; MR LUMBAR SPINE W AND WO IV CONTRAST; MR THORACIC SPINE WO IV CONTRAST; 02/17/2024 7:08 pm; 02/17/2024 7:09 pm INDICATION: Signs/Symptoms:pain. ,M54.10 Radiculopathy, site unspecified COMPARISON: Radiograph 10/19/2017, MRI 08/17/2016. ACCESSION NUMBER(S): [id number]; [id number]; [id number] ORDERING CLINICIAN: SHA FOSTER TECHNIQUE: Sagittal T1, [...] and bilateral C6- (more content not included)... [facility] Comment on above: Order Comment: [facility] C-Reactive Proteinon 024 CRP High sensitivity method [Mass/Vol] mg/L 0.0 - 5.0 mg/L [facility] CRP [Mass/Vol] mg/L Normal 0.0-5.0 [facility] Comment on above: Performed By: #### C RP #### [facility] [address] [place] [address] CBC W Auto Differential pane l (Bld)on 01-29-2024 Interpretation and review of laboratory results Abnormal [facility] MCHC (RBC) [Mass/Vol] 34.2 % 33.0 - 37.0 % [facility] Segmented neutrophils/100 WBC (Bld) 60.7 % [facility] CBC With Platelet and Differ entialon 01-29-2024 Basophils (Bld) [#/Vol] 0.1 10*3/uL Normal 0.0-0.2 [facility] Comment on above: Performed By: #### C BCWD #### [facility] [address] [place] [address] Basophils/100 WBC (Bld) 0.5 % Normal [facility] Comment on above: Performed By: #### C BCWD #### [facility] [address] [place] [address] Eosinophils (Bld) [#/Vol] 0.5 10*3/uL Normal 0.0-0.7 [facility] Comment on above: Performed By: #### C BCWD #### [facility] [address] [place] [address] Eosinophils/100 WBC (Bld) 4.8 % Normal [facility] Comment on above: Performed By: #### C BCWD #### [facility] [address] [place] [address] Erythrocyte distribution width (RBC) [Ratio] 12.6 % Normal 11.5-14.5 [facility] Comment on above: Performed By: #### C BCWD #### [facility] [address] [place] [address] Hematocrit (Bld) [Volume fraction] 43.8 % Normal 42.0-52.0 [facility] Comment on above: Performed By: #### C BCWD #### [facility] [address] [place] [address] Hemoglobin (Bld) [Mass/Vol] 15.0 g/dL Normal 14.0-18.0 [facility] Comment on above: Performed By: #### C BCWD #### [facility] [address] [place] [address] Lymphocytes (Bld) [#/Vol] 2.4 10*3/uL Normal 1.0-4.8 [facility] Comment on above: Performed By: #### C BCWD #### [facility] [address] [place] [address] Lymphocytes/100 WBC (Bld) 24.9 % Normal [facility] Comment on above: Performed By: #### C BCWD #### [facility] [address] [place] [address] MCH (RBC) [Entitic mass] 32.7 pg Critically high 27.0-31.3 [facility] Comment on above: Performed By: #### C BCWD #### [facility] [address] [place] [address] MCHC 34.2 % Normal 33.0-37.0 [facility] Comment on above: Performed By: #### C BCWD #### [facility] [address] [place] [address] MCV (RBC) [Entitic vol] 95.4 fL Critically high 79.0-92.2 [facility] Comment on above: Performed By: #### C BCWD #### [facility] [address] [place] [address] Monocytes (Bld) [#/Vol] 0.9 10*3/uL Critically high 0.2-0.8 [facility] Comment on above: Performed By: #### C BCWD #### [facility] [address] [place] [address] Monocytes/100 WBC (Bld) 8.8 % Normal [facility] Comment on above: Performed By: #### C BCWD #### [facility] [address] [place] [address] Neutrophils (Bld) [#/Vol] 5.9 10*3/uL Normal 1.4-6.5 [facility] Comment on above: Performed By: #### C BCWD #### [facility] [address] [place] [address] Neutrophils/100 WBC (Bld) 60.7 % Normal [facility] Comment on above: Performed By: #### C BCWD #### [facility] [address] [place] [address] Platelets (Bld) [#/Vol] 316 10*3/uL Normal 130-400 [facility] Comment on above: Performed By: #### C BCWD #### [facility] [address] [place] [address] RBC (Bld) [#/Vol] 4.59 10*6/uL Low 4.70-6.10 [facility] Comment on above: Performed By: #### C BCWD #### [facility] [address] [place] [address] WBC (Bld) [#/Vol] 9.6 10*3/uL Normal 4.8-10.8 [facility] Comment on above: Performed By: #### C BCWD #### [facility] [address] [place] [address] CRP High sensitivity method [Mass/Vol]on 01-29-2024 [facility] Comprehensive Metabolic Pane ashok 01-29-2024 Albumin [Mass/Vol] 3.9 g/dL Normal 3.5-4.6 [facility] Comment on above: Performed By: #### C MP #### [facility] [address] [place] [address] ALP [Catalytic activity/Vol] 62 U/L Normal 35-104 [facility] Comment on above: Performed By: #### C MP #### [facility] [address] [place] [address] ALT [Catalytic activity/Vol] 9 U/L Normal 0-41 [facility] Comment on above: Performed By: #### C MP #### [facility] [address] [place] [address] Anion gap [Moles/Vol] 8 mmol/L Low 9-15 [facility] Comment on above: Performed By: #### C MP #### [facility] [address] [place] [address] AST [Catalytic activity/Vol] 9 U/L Normal 0-40 [facility] Comment on above: Performed By: #### C MP #### [facility] [address] [place] [address] Bilirubin [Mass/Vol] mg/dL Normal 0.2-0.7 [facility] Comment on above: Performed By: #### C MP #### [facility] [address] [place] [address] Calcium [Mass/Vol] 8.8 mg/dL Normal 8.5-9.9 [facility] Comment on above: Performed By: #### C MP #### [facility] [address] [place] [address] Chloride [Moles/Vol] 105 mmol/L Normal 95-107 [facility] Comment on above: Performed By: #### C MP #### [facility] [address] [place] [address] CO2 [Moles/Vol] 27 mmol/L Normal 20-31 [facility] Comment on above: Performed By: #### C MP #### [facility] [address] [place] [address] Creatinine [Mass/Vol] 1.15 mg/dL Normal 0.70-1.20 [facility] Comment on above: Performed By: #### C MP #### [facility] [address] [place] [address] GFR 81.3 Normal >60 [facility] Comment on above: Result Comment: Pedi [...] Performed By: #### C MP #### [facility] [address] [place] [address] Globulin (S) [Mass/Vol] 2.7 g/dL Normal 2.3-3.5 [facility] Comment on above: Performed By: #### C MP #### [facility] [address] [place] [address] Glucose [Mass/Vol] 85 mg/dL Normal 70-99 [facility] Comment on above: Performed By: #### C MP #### [facility] [address] [place] [address] Potassium [Moles/Vol] 4.0 mmol/L Normal 3.4-4.9 [facility] Comment on above: Performed By: #### C MP #### [facility] [address] [place] [address] Protein [Mass/Vol] 6.6 g/dL Normal 6.3-8.0 [facility] Comment on above: Performed By: #### C MP #### [facility] [address] [place] [address] Sodium [Moles/Vol] 140 mmol/L Normal 135-144 [facility] Comment on above: Performed By: #### C MP #### [facility] [address] [place] [address] Urea nitrogen [Mass/Vol] 20 mg/dL Normal 6-20 [facility] Comment on above: Performed By: #### C MP #### [facility] [address] [place] [address] Comprehensive metabolic 2000 panelon 01-29-2024 Albumin [Mass/Vol] 3.9 g/dL 3.5 - 4.6 g/dL [facility] ALP [Catalytic activity/Vol] 62 U/L 35 - 104 U/L [facility] ALT [Catalytic activity/Vol] 9 U/L 0 - 41 U/L [facility] Anion gap [Moles/Vol] 8 mmol/L Low [facility] AST [Catalytic activity/Vol] 9 U/L 0 - 40 U/L [facility] Bilirubin [Mass/Vol] mg/dL 0.2 - 0.7 mg/dL [facility] Calcium [Mass/Vol] 8.8 mg/dL 8.5 - 9.9 mg/dL [facility] Chloride [Moles/Vol] 105 mmol/L [facility] CO2 [Moles/Vol] 27 mmol/L [facility] Creatinine [Mass/Vol] 1.15 mg/dL 0.70 - 1.20 mg/dL [facility] GFR/1.73 sq M.predicted among non-blacks MDRD (S/P/Bld) [Vol rate/Area] 81.3 mL/min/{1.73_m2} 60 - PINF [facility] Comment on above: Pediatric calculator link [...] [Mass/Vol] 2.7 g/dL 2.3 - 3.5 g/dL [facility] Glucose [Mass/Vol] 85 mg/dL 70 - 99 mg/dL [facility] Interpretation and review of laboratory results Abnormal [facility] Potassium [Moles/Vol] 4.0 mmol/L [facility] Protein [Mass/Vol] 6.6 g/dL 6.3 - 8.0 g/dL [facility] Sodium [Moles/Vol] 140 mmol/L [facility] Urea nitrogen [Mass/Vol] 20 mg/dL 6 - 20 mg/dL [facility] ESR Westergren method (Bld) [Velocity]on 01-29-2024 ESR (Bld) [Velocity] 7 mm 0 - 10 mm [facility] Comment on above: ESR Units mm/Hr [facility] Sedimentation Rateon 024 Sedimentation Rate 7 mm Normal 0-10 [facility] Comment on above: Result Comment: ESR Units mm/Hr Performed By: #### E SR #### [facility] [address] [place] [address] Urinalysis with Reflex to Cu ltureon 01-29-2024 Glucose Test strip (U) [Mass/Vol] Negative Negative mg/dL [facility] Interpretation and review of laboratory results Abnormal [facility] Ketones (U) [Mass/Vol] Negative Negative mg/dL [facility] Protein (U) [Mass/Vol] Negative Negative mg/dL [facility] Urine Reflex to Culture Not Indicated [facility] Urobilinogen Qn (U) 0.2 NINF [facility] Urinalysis, reflex to cultur stephen 01-29-2024 Bilirubin Ql (U) Negative Normal Negative [facility] Comment on above: Performed By: #### U AR #### [facility] [address] [place] [address] Clarity (U) TURBID Abnormal Clear [facility] Comment on above: Performed By: #### U AR #### [facility] [address] [place] [address] Color (U) Yellow Normal Straw/[place]ron [facility] Comment on above: Performed By: #### U AR #### [facility] [address] [place] [address] Glucose Ql (U) Negative Normal Negative [facility] Comment on above: Performed By: #### U AR #### [facility] [address] [place] [address] Hemoglobin Ql (U) Negative Normal Negative [facility] Comment on above: Performed By: #### U AR #### [facility] [address] [place] [address] Ketones Ql (U) Negative Normal Negative [facility] Comment on above: Performed By: #### U AR #### [facility] [address] [place] [address] Leukocyte esterase Test strip Ql (U) Negative Normal Negative [facility] Comment on above: Performed By: #### U AR #### [facility] [address] [place] [address] Nitrite Ql (U) Negative Normal Negative [facility] Comment on above: Performed By: #### U AR #### [facility] [address] [place] [address] pH (U) 7.0 [pH] Normal 5.0-9.0 [facility] Comment on above: Performed By: #### U AR #### [facility] [address] [place] [address] Protein Ql (U) Negative Normal Negative [facility] Comment on above: Performed By: #### U AR #### [facility] [address] [place] [address] Specific gravity (U) [Rel density] 1.022 Normal 1.005-1.03 [facility] Comment on above: Performed By: #### U AR #### [facility] [address] [place] [address] Urine Reflexed to Culture Not Indicated Normal [facility] Comment on above: Performed By: #### U AR #### [facility] [address] [place] [address] Urobilinogen Qn (U) 0.2 {Bassam'U}/dL Normal < 2.0 [facility] Comment on above: Performed By: #### U AR #### [facility] [address] [place] [address] Emergency Department Summary on 01-20-2024 Emergency Department Summary [facility] Medical Records Department [address] [place] [address] Emergency Department Summary 01/20/24 MR#: [id number] Acct: [id number] Name: HARMAN JAMIL Rep #: [id number] : 1980 43 From: Kehinde Cota DO [...] states he has a spine surgeon and [facility] in [place]. Patient states he will make an appoint with them for next week. Patient was instructed to return if worse in any way. Patient understood and was agreeable with plan. All questions were answered. 01/20/24 1741 Cosigner Signature (if applicable): cc: Dr. Josafat [place] DO * Signed HPI History of Present Illness Chief Complaint: Lower Extremity Injury [facility] Medical History ADHD Sciatica Cervical radiculopathy Home [...] 103 Pulse Ox 98 Oxygen Delivery Method [facility] MDM Narrative Medical decision making narrative: HISTORY [...] pulsatile ab (more content not included)... Normal [facility] Spine Lumbar (Routine)on Spine Lumbar (Routine) [facility] Imaging Services [address] [place] [address] Spine Lumbar (Routine) MR#: [id number] Acct: [id number] Name: HARMAN JAMIL Rep #: [id number] : 1980 43 From: Tee Brand MD PCP: Dr. Josafat [place] DO Status: REG ER Study: Spine Lumbar (Routine) Date of Exam: 01/20/24 Exam# [id number] Ordering Dr: Kehinde Cota DO [id number] STUDY: MRI LUMBAR SPINE WITHOUT CONTRAST REASON [...] at 16:47 EST , CC: Dr. Josafat [place] DO; Dr. Kehinde Cota DO Nuclear Test Technician: Signed Normal [facility] Emergency Department Summary on 01-12-2024 Emergency Department Summary [facility] Medical Records Department [address] [place] [address] Emergency Department Summary 01/12/24 MR#: [id number] Acct: [id number] Name: HARMAN JAMIL Rep #: [id number] : 1980 43 From: Raghu Sadler DO [...] Negative for Weakness or Loss of Funtion [facility] Medical History ADHD Sciatica Cervical radiculopathy Home [...] x3, CN' (more content not included)... Normal [facility] Pelvis without IV Contraston 01-12-2024 Pelvis without IV Contrast [facility] Imaging Services [address] [place] [address] Pelvis without IV Contrast MR#: [id number] Acct: [id number] Name: HARMAN JAMIL Rep #: [id number] : 1980 M 43 From: Nia Barriga MD PCP: Dr. Josafat [place] DO Status: REG ER Study: Pelvis without IV Contrast Date of Exam: 01/11 Exam# [id number] Ordering Dr: Raghu Sadler DO [id number] INDICATION: Hip pain EXAMINATION: CT PELVIS BONE [...] Raghu Sadler DO; Dr. Josafat [place] DO Nuclear Test Technician: Signed Normal [facility] Spine Lumbar without Contras ton 01-12-2024 Spine Lumbar without Contrast [facility] Imaging Services [address] [place] [address] Spine Lumbar without Contrast MR#: [id number] Acct: [id number] Name: HARMAN JAMIL Rep #: [id number] : 1980 M 43 From: Nia Barriga MD PCP: Dr. Josafat [place] DO Status: REG ER Study: Spine Lumbar without Contrast Date of Exam: Exam# [id number] Ordering Dr: Raghu Sadler DO [id number] INDICATION: Back pain EXAMINATION: CT LUMBAR SPINE [...] Raghu Sadler, DO; Dr. Josafat [place], DO Nuclear Test Technician: Signed Normal [facility] Basic Metabolic Profile (BMP )on 01-04-2024 BUN/CRE 13.9 RATIO Normal 01-01 [facility] Comment on above: Performed By: #### L 501.6710, L500.2500, L100.0100, L101.9900, L503.6005, L501.5200 #### [facility] [address] [place], [address] CA,Total 9.4 mg/dL Normal 8.5-10.1 [facility] Comment on above: Performed By: #### L 501.6710, L500.2500, L100.0100, L101.9900, L503.6005, L501.5200 #### [facility] [address] [place], [address] Chloride [Moles/Vol] 99 mmol/L Normal 98-107 [facility] Comment on above: Performed By: #### L 501.6710, L500.2500, L100.0100, L101.9900, L503.6005, L501.5200 #### [facility] [address] [place], [address] CO2 [Moles/Vol] 32.0 mmol/L Normal 21.0-32.0 [facility] Comment on above: Performed By: #### L 501.6710, L500.2500, L100.0100, L101.9900, L503.6005, L501.5200 #### [facility] [address] [place], [address] Creatinine [Mass/Vol] 1.08 mg/dL Normal 0.70-1.30 [facility] Comment on above: Result Comment: The validity of the calculated GFR GFRAA in patients over 70 years has not been determined. Clinical correlation is essential. Performed By: #### L 501.6710, L500.2500, L100.0100, L101.9900, L503.6005, L501.5200 #### [facility] [address] [place], [address] ECRCL 100.70 ml/min Normal [facility] Comment on above: Performed By: #### L 501.6710, L500.2500, L100.0100, L101.9900, L503.6005, L501.5200 #### [facility] [address] [place], [address] EST GFR - AA 96 mL/min Normal >60 [facility] Comment on above: Result Comment: Afri can Dominican GFR Calc Performed By: #### L 501.6710, L500.2500, L100.0100, L101.9900, L503.6005, L501.5200 #### [facility] [address] [place], [address] GAP 4 Low 5-15 [facility] Comment on above: Performed By: #### L 501.6710, L500.2500, L100.0100, L101.9900, L503.6005, L501.5200 #### [facility] [address] [place], [address] GFR/1.73 sq M.predicted among non-blacks MDRD (S/P/Bld) [Vol rate/Area] 80 mL/min/{1.73_m2} Normal >60 [facility] Comment on above: Result Comment: Non- GFR Calc Performed By: #### L 501.6710, L500.2500, L100.0100, L101.9900, L503.6005, L501.5200 #### [facility] [address] [place], [address] Glucose [Mass/Vol] 109 mg/dL High 74-106 [facility] Comment on above: Result Comment: Fast ing Glucose result from 100 to 125 mg/dL suggests IMPAIRED HOMEOSTASIS per A.D.A. criteria. Performed By: #### L 501.6710, L500.2500, L100.0100, L101.9900, L503.6005, L501.5200 #### [facility] [address] [place], [address] Potassium [Moles/Vol] 3.8 mmol/L Normal 3.5-5.1 [facility] Comment on above: Performed By: #### L 501.6710, L500.2500, L100.0100, L101.9900, L503.6005, L501.5200 #### [facility] [address] [place], [address] Sodium [Moles/Vol] 136 mmol/L Normal 136-145 [facility] Comment on above: Performed By: #### L 501.6710, L500.2500, L100.0100, L101.9900, L503.6005, L501.5200 #### [facility] [address] [place], [address] Urea nitrogen [Mass/Vol] 15 mg/dL Normal 7-18 [facility] Comment on above: Performed By: #### L 501.6710, L500.2500, L100.0100, L101.9900, L503.6005, L501.5200 #### [facility] [address] [place], [address] CBC W/Diff, Automatedon 10-2 Absolute Lymph 2.65 X10 3/uL Normal 0.83-4.51 [facility] Comment on above: Performed By: #### L 501.6710, L500.2500, L100.0100, L101.9900, L503.6005, L501.5200 #### [facility] [address] [place], [address] Absolute Neut 8.9 X10 3/uL High 2.0-7.7 [facility] Comment on above: Performed By: #### L 501.6710, L500.2500, L100.0100, L101.9900, L503.6005, L501.5200 #### [facility] [address] [place], [address] Basophils/100 WBC (Bld) 0.4 % Normal 0-1 [facility] Comment on above: Performed By: #### L 501.6710, L500.2500, L100.0100, L101.9900, L503.6005, L501.5200 #### [facility] [address] [place], [address] Eosinophils/100 WBC (Bld) 3.2 % Normal 0-5 [facility] Comment on above: Performed By: #### L 501.6710, L500.2500, L100.0100, L101.9900, L503.6005, L501.5200 #### [facility] [address] [place], [address] Erythrocyte distribution width (RBC) [Ratio] 11.7 % Normal 11.6-14.6 [facility] Comment on above: Performed By: #### L 501.6710, L500.2500, L100.0100, L101.9900, L503.6005, L501.5200 #### [facility] [address] [place], [address] Hematocrit (Bld) [Volume fraction] 40.6 % Normal 40-54 [facility] Comment on above: Performed By: #### L 501.6710, L500.2500, L100.0100, L101.9900, L503.6005, L501.5200 #### [facility] [address], [address] Hemoglobin (Bld) [Mass/Vol] 13.9 g/dL Normal 13.0-16.5 [facility] Comment on above: Performed By: #### L 501.6710, L500.2500, L100.0100, L101.9900, L503.6005, L501.5200 #### [facility] [address] [place], [address] IG% 0.400 Normal 0.0-0.9 [facility] Comment on above: Result Comment: IG% - Immature Granulocytes (promyelocytes, myelocytes and metamyelocytes) > 1% indicates that a LEFT SHIFT is Present. Performed By: #### L 501.6710, L500.2500, L100.0100, L101.9900, L503.6005, L501.5200 #### [facility] [address] [place], [address] Lymphocytes/100 WBC (Bld) 19.6 % Normal 19-41 [facility] Comment on above: Performed By: #### L 501.6710, L500.2500, L100.0100, L101.9900, L503.6005, L501.5200 #### [facility] [address] [place], [address] MCH (RBC) [Entitic mass] 32.0 pg Normal 27.0-32.0 [facility] Comment on above: Performed By: #### L 501.6710, L500.2500, L100.0100, L101.9900, L503.6005, L501.5200 #### [facility] [address] [place], [address] MCHC (RBC) [Mass/Vol] 34.2 g/dL Normal 32-36 [facility] Comment on above: Performed By: #### L 501.6710, L500.2500, L100.0100, L101.9900, L503.6005, L501.5200 #### [facility] [address] [place], [address] MCV (RBC) [Entitic vol] 93.5 fL Normal 80-94 [facility] Comment on above: Performed By: #### L 501.6710, L500.2500, L100.0100, L101.9900, L503.6005, L501.5200 #### [facility] [address] [place], [address] Monocytes/100 WBC (Bld) 10.3 % High 0-10 [facility] Comment on above: Performed By: #### L 501.6710, L500.2500, L100.0100, L101.9900, L503.6005, L501.5200 #### [facility] [address] [place], [address] Neutrophils/100 WBC (Bld) 66.1 % Normal 47-70 [facility] Comment on above: Performed By: #### L 501.6710, L500.2500, L100.0100, L101.9900, L503.6005, L501.5200 #### [facility] [address] [place], [address] Nucleated RBC (Bld) [#/Vol] 0 10*3/uL Normal 0-5 [facility] Comment on above: Performed By: #### L 501.6710, L500.2500, L100.0100, L101.9900, L503.6005, L501.5200 #### [facility] [address] [place], [address] Platelet mean volume (Bld) [Entitic vol] 11.9 fL Normal 6.2-12.0 [facility] Comment on above: Performed By: #### L 501.6710, L500.2500, L100.0100, L101.9900, L503.6005, L501.5200 #### [facility] [address] [place], [address] Platelets (Bld) [#/Vol] 235 10*3/uL Normal 150-450 [facility] Comment on above: Performed By: #### L 501.6710, L500.2500, L100.0100, L101.9900, L503.6005, L501.5200 #### [facility] [address] [place], [address] RBC (Bld) [#/Vol] 4.34 10*6/uL Low 4.6-6.2 [facility] Comment on above: Performed By: #### L 501.6710, L500.2500, L100.0100, L101.9900, L503.6005, L501.5200 #### [facility] [address] [place], [address] RDW SD 40.2 fl Normal 35.1-43.9 [facility] Comment on above: Performed By: #### L 501.6710, L500.2500, L100.0100, L101.9900, L503.6005, L501.5200 #### [facility] [address] [place], [address] WBC (Bld) [#/Vol] 13.5 10*3/uL High 4.4-11.0 [facility] Comment on above: Performed By: #### L 501.6710, L500.2500, L100.0100, L101.9900, L503.6005, L501.5200 #### [facility] [address] [place], [address] CRPon 01-04-2024 C-REACTIVE PROT 7.22 mg/L High 0.0-3.0 [facility] Comment on above: Result Comment: C-Re active Protein (CRP) provides useful information for the diagnosis, therapy and monitoring of inflammatory processes and associated diseases. For the evaluation of Relative Risk for Cardiovascular Disease, a High Sensitivity CRP (HSCRP) should be ordered. Performed By: #### L 501.6710, L500.2500, L100.0100, L101.9900, L503.6005, L501.5200 ####[facility] [address] [place], [address] Emergency Department Summary on 01-04-2024 Emergency Department Summary [facility] Medical Records Department [address] [place] [address] Emergency Department Summary 01/04/24 MR#: [id number] Acct: [id number] Name: HARMAN JAMIL Rep #: [id number] : 1980 43 From: Demetrius Andrew DO [...] sleeping and with this presents for evaluation [facility] Medical History ADHD Cervical radiculopathy Sciatica Home [...] for developi (more content not included)... Normal [facility] Erythrocyte Sed Rateon 01-03 SED RATE 5 mm/hr Normal 0-20 [facility] Comment on above: Performed By: #### L 501.6710, L500.2500, L100.0100, L101.9900, L503.6005, L501.5200 #### [facility] [address] [place], [place], [address] Lactic Acidon 01-04-2024 Lactate [Moles/Vol] 1.2 mmol/L Normal 0.4-1.9 [facility] Comment on above: Order Comment: Y Performed By: #### L 501.6710, L500.2500, L100.0100, L101.9900, L503.6005, L501.5200 #### [facility] [address] [place], [place], [address] Magnesiumon 01-04-2024 Magnesium [Mass/Vol] 2.3 mg/dL Normal 1.6-2.6 [facility] Comment on above: Performed By: #### L 501.6710, L500.2500, L100.0100, L101.9900, L503.6005, L501.5200 ####[facility] [address] [place], [address] XR LUMBAR SPINE (2-3 VIEWS)o n 11-14-2023 [...] Alexander DO 11/14/[address] [facility] CBC With Platelet and Differ entialon 08-28-2023 Basophils (Bld) [#/Vol] 0.1 10*3/uL Normal 0.0-0.2 [facility] Comment on above: Performed By: #### C BCWD #### [facility] [address] [place] [address] Basophils/100 WBC (Bld) 0.5 % Normal [facility] Comment on above: Performed By: #### C BCWD #### [facility] [address] [place] [address] Eosinophils (Bld) [#/Vol] 0.3 10*3/uL Normal 0.0-0.7 [facility] Comment on above: Performed By: #### C BCWD #### [facility] [address] [place] [address] Eosinophils/100 WBC (Bld) 2.7 % Normal [facility] Comment on above: Performed By: #### C BCWD #### [facility] [address] [place] [address] Erythrocyte distribution width (RBC) [Ratio] 11.7 % Normal 11.5-14.5 [facility] Comment on above: Performed By: #### C BCWD #### [facility] [address] [place] [address] Hematocrit (Bld) [Volume fraction] 41.5 % Low 42.0-52.0 [facility] Comment on above: Performed By: #### C BCWD #### [facility] [address] [place] [address] Hemoglobin (Bld) [Mass/Vol] 14.2 g/dL Normal 14.0-18.0 [facility] Comment on above: Performed By: #### C BCWD #### [facility] [address] [place] [address] Lymphocytes (Bld) [#/Vol] 3.1 10*3/uL Normal 1.0-4.8 [facility] Comment on above: Performed By: #### C BCWD #### [facility] [address] [place] [address] Lymphocytes/100 WBC (Bld) 28.7 % Normal [facility] Comment on above: Performed By: #### C BCWD #### [facility] [address] [place] [address] MCH (RBC) [Entitic mass] 32.0 pg Critically high 27.0-31.3 [facility] Comment on above: Performed By: #### C BCWD #### [facility] [address] [place] [address] MCHC 34.2 % Normal 33.0-37.0 [facility] Comment on above: Performed By: #### C BCWD #### [facility] [address] [place] [address] MCV (RBC) [Entitic vol] 93.5 fL Critically high 79.0-92.2 [facility] Comment on above: Performed By: #### C BCWD #### [facility] [address] [place] [address] Monocytes (Bld) [#/Vol] 1.0 10*3/uL Critically high 0.2-0.8 [facility] Comment on above: Performed By: #### C BCWD #### [facility] [address] [place] [address] Monocytes/100 WBC (Bld) 9.5 % Normal [facility] Comment on above: Performed By: #### C BCWD #### [facility] [address] [place] [address] Neutrophils (Bld) [#/Vol] 6.4 10*3/uL Normal 1.4-6.5 [facility] Comment on above: Performed By: #### C BCWD #### [facility] [address] [place] [address] Neutrophils/100 WBC (Bld) 58.3 % Normal [facility] Comment on above: Performed By: #### C BCWD #### [facility] [address] [place] [address] Platelets (Bld) [#/Vol] 223 10*3/uL Normal 130-400 [facility] Comment on above: Performed By: #### C BCWD #### [facility] [address] [place] [address] RBC (Bld) [#/Vol] 4.44 10*6/uL Low 4.70-6.10 [facility] Comment on above: Performed By: #### C BCWD #### [facility] [address] [place] [address] WBC (Bld) [#/Vol] 10.9 10*3/uL Critically high 4.8-10.8 [facility] Comment on above: Performed By: #### C BCWD #### [facility] [address] [place] [address] CT CERVICAL SPINE WO CONTRAS Ton 08-28-2023 [...] Alexander DO 08/28/[address] [facility] CT LUMBAR SPINE WO CONTRASTo n [...] Alexander DO 08/28/[address] [facility] CT THORACIC SPINE WO CONTRAS Ton [...] Alexander DO 08/28/[address] [facility] Comprehensive Metabolic Pane ashok 08-28-2023 Albumin [Mass/Vol] 4.6 g/dL Normal 3.5-4.6 [facility] Comment on above: Performed By: #### C MP #### [facility] [address] [place] [address] ALP [Catalytic activity/Vol] 70 U/L Normal 35-104 [facility] Comment on above: Performed By: #### C MP #### [facility] [address] [place] [address] ALT [Catalytic activity/Vol] 13 U/L Normal 0-41 [facility] Comment on above: Performed By: #### C MP #### [facility] [address] [place] [address] Anion gap [Moles/Vol] 11 mmol/L Normal 9-15 [facility] Comment on above: Performed By: #### C MP #### [facility] [address] [place] [address] AST [Catalytic activity/Vol] 13 U/L Normal 0-40 [facility] Comment on above: Performed By: #### C MP #### [facility] [address] [place] [address] Bilirubin [Mass/Vol] mg/dL Normal 0.2-0.7 [facility] Comment on above: Performed By: #### C MP #### [facility] [address] [place] [address] Calcium [Mass/Vol] 9.2 mg/dL Normal 8.5-9.9 [facility] Comment on above: Performed By: #### C MP #### [facility] [address] [place] [address] Chloride [Moles/Vol] 105 mmol/L Normal 95-107 [facility] Comment on above: Performed By: #### C MP #### [facility] [address] [place] [address] CO2 [Moles/Vol] 25 mmol/L Normal 20-31 [facility] Comment on above: Performed By: #### C MP #### [facility] [address] [place] [address] Creatinine [Mass/Vol] 1.15 mg/dL Normal 0.70-1.20 [facility] Comment on above: Performed By: #### C MP #### [facility] [address] [place] [address] GFR 81.5 Normal >60 [facility] Comment on above: Result Comment: Abbie [...] Performed By: #### C MP #### [facility] [address] [place] [address] Globulin (S) [Mass/Vol] 2.9 g/dL Normal 2.3-3.5 [facility] Comment on above: Performed By: #### C MP #### [facility] [address] [place] [address] Glucose [Mass/Vol] 97 mg/dL Normal 70-99 [facility] Comment on above: Performed By: #### C MP #### [facility] [address] [place] [address] Potassium [Moles/Vol] 3.6 mmol/L Normal 3.4-4.9 [facility] Comment on above: Performed By: #### C MP #### [facility] [address] [place] [address] Protein [Mass/Vol] 7.5 g/dL Normal 6.3-8.0 [facility] Comment on above: Performed By: #### C MP #### [facility] [address] [place] [address] Sodium [Moles/Vol] 141 mmol/L Normal 135-144 [facility] Comment on above: Performed By: #### C MP #### [facility] [address] [place] [address] Urea nitrogen [Mass/Vol] 22 mg/dL Critically high 6-20 [facility] Comment on above: Performed By: #### C MP #### [facility] [address] [place] [address] XR Lumbar spine 4 Viewson Interpreted By: Sha Chacon, STUDY: XR LUMBAR SPINE COMPLETE 4+ VIEWS; ; 05/04/2023 4:17 pm INDICATION: Signs/Symptoms:pain. ACCESSION NUMBER(S): [id number] ORDERING CLINICIAN: SHA FOSTER FINDINGS: AP lateral flexion extension x-rays lumbar spine show [id number] degenerative changes at L4-5 and mild degenerative [...] Sha Foster 05/04/2023 4:32 PM Dictation workstation: [id number] Sha Foster MD - 05/04/2023 Interpreted By: Sha Foster, STUDY: XR LUMBAR SPINE COMPLETE 4+ VIEWS; ; 05/04/2023 4:17 pm INDICATION: Signs/Symptoms:pain. ACCESSION NUMBER(S): [id number] ORDERING CLINICIAN: SHA FOSTER FINDINGS: AP lateral flexion extension x-rays lumbar spine show lirx-gq-vtlglxex degenerative changes at L4-5 and mild degenerative [...] Sha Foster 05/04/2023 4:32 PM Dictation workstation: [id number] [facility] Work Phone: [facility] Work Phone: Radiology Study observation (narrative) [facility] Work Phone: Absolute lymphocyte counton 08-20-2021 Lymphocytes Auto (Unsp spec) [#/Vol] 0.41 10*3/uL 0.83-4.51 [facility] Work Phone: Basophil percentageon 2021 Basophils/100 WBC (Bld) 0.5 % 0-1 [facility] Work Phone: Chloride [Moles/Vol] 100 mmol/L 98-107 [facility] Work Phone: Eosinophils/100 WBC (Bld) 0.0 % 0-5 [facility] Work Phone: Glucose [Mass/Vol] 120 mg/dL 74-106 [facility] Work Phone: [phone] Comment on above: Fasting Glucose resu lt from 100 to 125 mg/dL suggests IMPAIRED HOMEOSTASIS per A.D.A. criteria. Neutrophils (Bld) [#/Vol] 0.8 10*3/uL 2.0-7.7 [facility] Work Phone: Neutrophils/100 WBC (Bld) 40.8 % 47-70 [facility] Work Phone: Potassium [Moles/Vol] 3.2 mmol/L 3.5-5.1 [facility] Work Phone: Sodium [Moles/Vol] 134 mmol/L 136-145 [facility] Work Phone: WBC (Bld) [#/Vol] 2.0 10*3/uL 4.4-11.0 [facility] Work Phone: Blood erythrocytes count (nu mber/volume)on 08-20-2021 RBC (Bld) [#/Vol] 4.44 10*6/uL 4.6-6.2 [facility] Work Phone: Blood hemoglobin measurement (mass/volume)on 08-20-2021 Hemoglobin (Bld) [Mass/Vol] 14.0 g/dL 13.0-16.5 [facility] Work Phone: Blood lymphocytes/100 leukoc yteson 08-20-2021 Lymphocytes/100 WBC (Bld) 20.4 % 19-41 [facility] Work Phone: Blood manual differential co mment interpretation (narrative result)on 08-20-2021 Manual differential comment Blake (Bld) [Interp] SEE COMMENTS [facility] Work Phone: Comment on above: NEUTROPENIA NOTEDLYM PHOPENIA NOTED Blood monocytes/100 leukocyt eson 08-20-2021 Monocytes/100 WBC (Bld) 37.8 % 0-10 [facility] Work Phone: Blood platelet adequacy dete ction by light microscopyon 08-20-2021 Platelets LM Ql (Bld) ADEQUATE ADEQ [facility] Work Phone: Blood platelet mean volumeon 08-20-2021 Platelet mean volume (Bld) [Entitic vol] 12.0 fL 6.2-12.0 [facility] Work Phone: Determination of erythrocyte mean corpuscular volume (MCV)on 08-20-2021 MCV (RBC) [Entitic vol] 93.5 fL 80-94 [facility] Work Phone: Hematocrit Auto (Bld) [Volum e fraction]on 08-20-2021 Hematocrit (Bld) [Volume fraction] 41.5 % 40-54 [facility] Work Phone: Laboratory - Chemistry and C hemistry - challengeon 08-20-2021 CO2 [Moles/Vol] 25.0 mmol/L 21.0-32.0 [facility] Work Phone: Urea nitrogen/Creatinin e [Mass ratio] 11.2 mg/mg 10-20 [facility] Work Phone: Laboratory - Drug toxicology on 08-20-2021 Amphetamines Ql (U) Negative [facility] Work Phone: Benzodiazepines Ql (U) Negative [facility] Work Phone: Cannabinoids Screen Ql (U) Positive [facility] Work Phone: Cocaine Ql (U) Negative [facility] Work Phone: Opiates Ql (U) Negative [facility] Work Phone: Laboratory - Hematology and Cell countson 08-20-2021 Anisocytosis Ql (Bld) RARE [facility] Work Phone: Erythrocyte distribution width (RBC) [Entitic vol] 40.6 fL 35.1-43.9 [facility] Work Phone: Erythrocyte distribution width (RBC) [Ratio] 11.9 % 11.6-14.6 [facility] Work Phone: Immature granulocytes/100 WBC (Bld) 0.500 % 0.0-0.9 [facility] Work Phone: Comment on above: IG% - Immature Granu locytes (promyelocytes, myelocytes and metamyelocytes) > 1% indicates that a LEFT SHIFT is Present. MCH (RBC) [Entitic mass] 31.5 pg 27.0-32.0 [facility] Work Phone: Nucleated RBC/100 WBC (Bld) [Ratio] 0 % 0-5 [facility] Work Phone: Laboratory - Microbiology an d Antimicrobial susceptibilityon 08-20-2021 SARS-CoV-2 (COVID-19) RNA CATALINO+probe Ql (Unsp spec) Detected Not Detect [facility] Work Phone: Comment on above: Normal Reference [...] 08-20-2021 MCHC (RBC) [Mass/Vol] 33.7 g/dL 32-36 [facility] Work Phone: Macrocytes detectionon 08-20 Macrocytes Ql (Bld) RARE [facility] Work Phone: No Panel Informationon 08-20 MDMA (Ecstasy) Screen Negative [facility] Work Phone: Urine Barbiturates Screen Negative [facility] Work Phone: Urine Drug Screen Comment [facility] Work Phone: Comment on above: CONFIRMATORY TESTING [...] USE TESTMNEMONIC: [facility] Urine Methadone Screen Negative [facility] Work Phone: Estimated Creatinine Clearance Calc 95.67 ml/min [facility] Work Phone: Estimated GFR (MDRD) Amer 90 mL/min >60 [facility] Work Phone: Comment on above: GFR Calc Estimated GFR (MDRD) Non-Af Amer 74 mL/min >60 [facility] Work Phone: Comment on above: Non- GFR Calc Ethyl Alcohol Level 5.0 mg/dL [facility] Work Phone: Comment on above: The serum:whole bloo d ethanol ratio is approximately 1.14and varies slightly with hematocrit. 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 Clinical correlation necessary.Randall Milan M.D. 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 rapid Ql (Resp)on 08-20-2021 SARS-CoV-2 Antigen (Rapid) SARS-CoV-2 (COVID 19) [facility] Work Phone: Serum or plasma calcium whitney urement (mass/volume)on 08-20-2021 Calcium [Mass/Vol] 8.7 mg/dL 8.5-10.1 [facility] Work Phone: Serum or plasma creatinine m easurement (mass/volume)on 08-20-2021 Creatinine [Mass/Vol] 1.16 mg/dL 0.70-1.30 [facility] Work Phone: Comment on above: The validity of the calculated GFR & GFRAA in patients over 70 years has not been determined. Clinical correlation is essential. Serum or plasma urea nitroge n measurement (mass/volume)on 08-20-2021 Urea nitrogen [Mass/Vol] 13 mg/dL 7-18 [facility] Work Phone: Thin prep Papanicolaou smear with manual screeningon 08-20-2021 Thin prep Papanicolaou smear with manual screening 9 5-15 [facility] Work Phone: Urine phencyclidine (PCP) de tectionon 08-20-2021 Phencyclidine Ql (U) Negative [facility] Work Phone: MRI RT SHOULDER W/O CONTRAST on 01-26-2018 Thyrotropin Qn DATE OF EXAM: Jan 26 2018 4:37PMCLINICAL HISTORY/ Name: DAVIDA JAMILUDY:MRI RT SHOULDER W/O CONTRAST; 01/26/2018 4:37 pmINDICATION:shoulder [...] TISSUES:No subcutaneous edema.CONCLUSION: IMPRESSION:1. Unremarkable exam. Normal [facility] Office Visiton 10-04-2017 Office Visit [...] PM Vitals Vital Signs Recorded: 04Oct2017 03:57PMHeart Gzlp416Mzxysktm948, LUE, AzsrbhbRnocvgapp04, LUE, SittingHeight6 ft Mpukxs953 lb 9 ozBMI Njeuthsiui47.02BSA Calculated2.16O2 Mxmgunhnur98 Physical ExamGen: NADeyes: EOMI, ENT: hearing grossly intact, no nasal dischargeresp: CTABL, without R/Rheart: RRR without MRGGI: abd: S/ND/NT, BS+lymph: no axillary, cervical, supraclavicular lymphadenopathy noted MS: gait grossly WNL, shoulder range of motion grossly within normal limits.derm: no rashes or lesions notedneuro: CN II-XII grossly intactpsych: AANDOx3 Results/Data HIV Antigen/Antibody Pvuihi65Gsk3751 10:17AJosafat Parsons Test NameResultFlagReferenceHIV AG/AB SCREENNON REACTIVESee BelowSOURCE: Reference Range: NONREACTIVE HIV Ag/Ab screen is performed using the Siemens Advia Centaur HIV Ag/Ab Combo assay which detects the presence of HIV p24 antigen as well as antibodies to HIV-1 (Group M and O) and HIV-2. Syphilis XGB25Alv6511 10:Josafat Peterson Test NameResultFlagReferenceSyphilis IgGNON REACTIVESee BelowSOURCE: Reference Range: NONREACTIVE Patients receiving more than 5 mg/day of biotin may have interference in test results. A sample should be taken no sooner than eight hours after previous dose. Contact [phone] for additional information. Vitamin D 25-Cmgxgsi96Jsh7556 10:17AJosafat Parsons Test NameResultFlagReferenceVitamin D 25-Hydroxy, Level14 ng/mLASOURCE: . [...] Status: Hold For - Scheduling Requested for: [id number] Ordered;For: Paresthesia of upper extremity, Shoulder pain; Ordered By: Josafat [place] Performed: Order Comments: If possible he might be able to come in tomorrow for the walk-in clinic, otherwise schedule with someone. Thanks. Due: 19Itk9285Mjsldned pain Start: Ibuprofen 800 MG Oral Tablet; TAKE 1 TABLET 3 TIMES DAILY WITH FOOD ASNEEDED for pain Rx By: Josafat [place]; Dispense: 20 Days ; #:60 Tablet; Refill: 1;For: Shoulder pain; PAYAM = N; Sent To: [facility] #71Vitamin D deficiency Start: Vitamin D3 5000 UNIT Oral Capsule; 1 po qd Rx By: Josafat [place]; Dispense: 0 Days ; #:30 Capsule; Refill: 11;For: Vitamin D deficiency; PAYAM = N; Sent To: [facility] Patient Discussion/Summarysmoking about 1/2 ppd, -->> [...] TIMES DAILY WITH FOOD ASNEEDED for pain;Therapy: 80Gxy6284 to (Evaluate:19Hgs5886); Last Rx:[id number] OrderedVitamin D3 5000 UNIT Oral Capsule; 1 po qd;Therapy: 92Nff4820 to (Last Rx:[id number]) Ordered Signatures Electronically signed by : Josafat [place] DO; Oct 04 2017 4:50PM EST (Author) Normal [facility] Office Visiton 09-28-2017 Office Visit Chief Complaint [...] 09/06/2015 8:22:19 AM Vitals Vital Signs Recorded: 28Sep2017 09:53AMHeart Qhbp92Gqdwlvvh180, LUE, QxwyvxxOgxinzfls24, LUE, SittingHeight6 ft Cdvevc716 lb 2 ozBMI Xkgrodbayt63.36BSA Calculated2.17O2 Orczypdrax38 Physical ExamGen: NADeyes: EOMI, ENT: hearing grossly [...] Education Material Provided for Patient; Status:Complete; Done: 28Sep2017 Ordered; For:Drug therapy, Hyperlipidemia, Overweight, Prediabetes, Screening for condition, Vitamin D deficiency; Ordered By:Josafat [place]; Complete Blood Count + Differential; Source:Blood (D); Status:Active; Requestedfor:28Sep2017; Perform:Lab Services - Lab To [...] Leonard; Lipid Panel; Source:Blood (BLD); Status:Active; Requested for:[id number]; Perform:Lab Services - Lab To Draw (Blood Test); Due:27Dec2017;Ordered; For:Drug therapy, Hyperlipidemia, Overweight, Prediabetes, Screening for condition, Vitamin D deficiency; Ordered By:Josafat [place]; Magnesium, Serum; Source:Blood (BLD); Status:Active; Requested for:80Xta4100; Perform:Lab Services - Lab To Draw (Blood Test); Due:27Dec2017;Ordered; For:Drug therapy, Hyperlipidemia, Overweight, Prediabetes, Screening for condition, Vitamin D deficiency; Ordered By:Josafat [place]; TSH WITH REFLEX TO FREE T4 IF ABNORMAL; Source:Blood (BLD); Status:Active;Requested for:70Dow4450; Perform:Lab Services - Lab To Draw (Blood Test); Due:27Dec2017;Ordered; For:Drug therapy, Hyperlipidemia, Overweight, Prediabetes, Screening for condition, Vitamin D deficiency; Ordered By:Josafat [place]; Vitamin D 25-Hydroxy; Source:Blood (BLD); Status:Active; Requested for:97Ama7371; Perform:Lab Services - Lab To Draw (Blood Test); Due:27Dec2017;Ordered; For:Drug therapy, Hyperlipidemia, Overweight, Prediabetes, Screening for condition, Vitamin D deficiency; Ordered By:Josafat [place];Screening for condition GC + Chlamydia By Amplified Detection; Source:Urine; Status:Active; Requestedfor:85Gjd0073; Perform:Lab Services - Lab To Draw (Non-Blood Test); Due:27Dec2017;Ordered; For:Screening for condition; Ordered By:Josafat [place]; HIV Antigen/Antibody Screen; Source:Blood (BLD); Status:Active; Requestedfor:00Xjg6646; Perform:Lab Services - Lab To Draw (Blood Test); Due:27Dec2017;Ordered; For:Screening for condition; Ordered By:Josafat [place]; Syphilis IGG; Status:Active; Requested for:93Msg6903; Perform:Lab Services - Lab To Draw (Blood [...] ONLY DATE OF EXAM: May 26 2017 11:32PMCLINICAL HISTORY/ Name: SILAS JAMIL:PELVIS AP ONLY; 05/26/2017 11:32 pmINDICATION:Trauma.COMPARISON: None. CLINICIAN:MARCIE RICHARDSON:There is no acute fracture, dislocation, or radiopaque foreign body.Significant stool and bowel gas obscures the bony details.CONCLUSION: IMPRESSION:No acute fracture or dislocation. Follow-up with CT if clinically indicated. Normal [facility] SPINE L MIN 4 VIEWSon 2017 SPINE L MIN 4 VIEWS DATE OF EXAM: May 26 2017 11:32PMCLINICAL HISTORY/ Name: LIZ JAMILY:SPINE L MIN 4 VIEWS; 05/26/2017 11:32 pmINDICATION:Non Trauma.COMPARISON:12/18/2015ACC ESSION NUMBER(S):[id number] CLINICIAN:MARCIE THOMASFINDINGS:No significant interval change.There is no acute fracture or dislocation. The vertebral heights and alignment are unremarkable.There is no spondylolysis or spondylolisthesis.There is no radiographic evidence of significant spondylosis.Significant stool and bowel gas obscures the bony details.CONCLUSION: IMPRESSION:No acute fracture or dislocation. Follow-up with CT if clinically indicated. Normal [facility] Healthcare Vital Signs Date Time Vital Sign Value Performing Clinician Facility 12-08-2024 20:31-0400 Body temperature 98.2 [degF] Parrish Talbert MD Work Phone: [facility] 12-08-2024 20:31-0400 Diastolic blood pressure 87 mm[Hg] Parrish Talbert MD Work Phone: [facility] 12-08-2024 20:31-0400 Heart rate 84 /min Parrish Talbert MD Work Phone: [facility] 12-08-2024 20:31-0400 Respiratory rate 17 /min Parrish Talbert MD Work Phone: [facility] 12-08-2024 20:31-0400 SaO2% (BldA) [Mass fraction] 97 % Parrish Talbert MD Work Phone: [facility] 12-08-2024 20:31-0400 Systolic blood pressure 144 mm[Hg] Parrish Talbert MD Work Phone: [facility] 12-08-2024 18:25-0400 Body height 185.4 cm Parrish Talbert MD Work Phone: [facility] 12-08-2024 18:25-0400 Body mass index (BMI) [Ratio] 25.07 kg/m2 Parrish Talbert MD Work Phone: [facility] 12-08-2024 18:25-0400 Body weight 86.18 kg Parrish Talbert MD Work Phone: [facility] 11-11-2024 02:16-0400 Body temperature 97.9 [degF] Dr. Josafat [place] DO Work Phone: [facility] 11-11-2024 02:16-0400 Diastolic blood pressure 99 mm[Hg] Dr. Josafat [place] DO Work Phone: [facility] 11-11-2024 02:16-0400 Heart rate 75 /min Dr. Josafat Leonard DO Work Phone: [facility] 11-11-2024 02:16-0400 Respiratory rate 16 /min Dr. Josafat Leonard DO Work Phone: [facility] 11-11-2024 02:16-0400 SaO2% (BldA) [Mass fraction] 99 % Dr. Josafat Leonard DO Work Phone: [facility] 11-11-2024 02:16-0400 Systolic blood pressure 132 mm[Hg] Dr. Josafat Leonard DO Work Phone: [facility] 11-10-2024 23:53-0400 Body height 185.[address] Josafat Leonard DO Work Phone: [facility] 11-10-2024 23:53-0400 Body mass index (BMI) [Ratio] 24.3 kg/m2 Dr. Josafat Leonard DO Work Phone: [facility] 11-10-2024 23:53-0400 Body weight 83.[address] Josafat Leonard DO Work Phone: [facility] 10-31-2024 10:11-0400 Body mass index (BMI) [Ratio] 25.2 kg/m2 Nighat Griffin MD Work Phone: [facility] 10-31-2024 10:11-0400 Body temperature 97.3 [degF] Nighat Griffin MD Work Phone: [facility] 10-31-2024 10:11-0400 Body weight 86.64 kg Nighat Griffin MD Work Phone: [facility] 10-31-2024 10:11-0400 Diastolic blood pressure 92 mm[Hg] Nighat Griffin MD Work Phone: [facility] 10-31-2024 10:11-0400 Heart rate 70 /min Nighat Griffin MD Work Phone: [facility] 10-31-2024 10:11-0400 Systolic blood pressure 156 mm[Hg] Nighat Griffin MD Work Phone: [facility] 10-23-2024 15:44-0400 SaO2% (BldA) [Mass fraction] 98 % Dr. Josafat [place] DO Work Phone: [facility] 10-23-2024 15:32-0400 Body height 185.[address] Josafat [place] DO Work Phone: [facility] 10-23-2024 15:32-0400 Body mass index (BMI) [Ratio] 24.9 kg/m2 Dr. Josafat Leonard DO Work Phone: [facility] 10-23-2024 15:32-0400 Body temperature 98.8 [degF] Dr. Josafat Leonard DO Work Phone: [facility] 10-23-2024 15:32-0400 Body weight 85.[address] Josafat Leonard DO Work Phone: [facility] 10-23-2024 15:32-0400 Diastolic blood pressure 65 mm[Hg] Dr. Josafat Leonard DO Work Phone: [facility] 10-23-2024 15:32-0400 Heart rate 104 /min Dr. Josafat Leonard DO Work Phone: [facility] 10-23-2024 15:32-0400 Inhaled oxygen flow rate 4 L/min Dr. Josafat Leonard DO Work Phone: [facility] 10-23-2024 15:32-0400 Respiratory rate 14 /min Dr. Josafat Leonard DO Work Phone: [facility] 10-23-2024 15:32-0400 Systolic blood pressure 112 mm[Hg] Dr. Josafat Leonard DO Work Phone: [facility] 10-02-2024 12:11-0400 Body height 185.4 cm Nighat Griffin MD Work Phone: [facility] 10-02-2024 12:11-0400 Body mass index (BMI) [Ratio] 25.46 kg/m2 Nighat Griffin MD Work Phone: [facility] 10-02-2024 12:11-0400 Body temperature 97.3 [degF] Nighat Griffin MD Work Phone: [facility] 10-02-2024 12:11-0400 Body weight 87.54 kg Nighat Griffin MD Work Phone: [facility] 10-02-2024 12:11-0400 Diastolic blood pressure 76 mm[Hg] Nighat Griffin MD Work Phone: [facility] 10-02-2024 12:11-0400 Heart rate 57 /min Nighat Griffin MD Work Phone: [facility] 10-02-2024 12:11-0400 SaO2% (BldA) [Mass fraction] 99 % Nighat Griffin MD Work Phone: [facility] 10-02-2024 12:11-0400 Systolic blood pressure 117 mm[Hg] Nighat Griffin MD Work Phone: [facility] 07-19-2024 10:44-0400 Body height 185.4 cm Radha Dixon DO Work Phone: [facility] 07-19-2024 10:44-0400 Body mass index (BMI) [Ratio] 24.83 kg/m2 Radha Garratt DO Work Phone: [facility] 07-19-2024 10:44-0400 Body weight 85.37 kg Radha Benyradeedee DO Work Phone: [facility] 07-14-2024 01:28-0400 Body temperature 98.71 [degF] Josafat Degidio DO Work Phone: [employer] 07-13-2024 22:31-0400 Body mass index (BMI) [Ratio] 24.65 kg/m2 Josafat Degidio DO Work Phone: [employer] 07-13-2024 22:31-0400 Body weight 84.73 kg Josafat Degidio DO Work Phone: [employer] 07-13-2024 22:30-0400 Diastolic blood pressure 92 mm[Hg] Josafat Degidio DO Work Phone: [employer] 07-13-2024 22:30-0400 Heart rate 98 /min Josafat Degidio DO Work Phone: [employer] 07-13-2024 22:30-0400 Respiratory rate 19 /min Josafat Degidio DO Work Phone: [employer] 07-13-2024 22:30-0400 SaO2% (BldA) [Mass fraction] 97 % Josafat Degidio DO Work Phone: [employer] 07-13-2024 22:30-0400 Systolic blood pressure 137 mm[Hg] Josafat Degidio DO Work Phone: [employer] 06-28-2024 08:47-0400 Body height 183.1 cm Josafat Degidio DO Work Phone: [facility] 06-28-2024 08:47-0400 Body mass index (BMI) [Ratio] 25.29 kg/m2 Josafat Degidio DO Work Phone: [facility] 06-28-2024 08:47-0400 Body weight 84.82 kg Josafat Degidio DO Work Phone: [facility] 06-28-2024 08:47-0400 Diastolic blood pressure 99 mm[Hg] Josafat Degidio DO Work Phone: [facility] 06-28-2024 08:47-0400 Heart rate 80 /min Josafat Degidio DO Work Phone: [facility] 06-28-2024 08:47-0400 SaO2% (BldA) [Mass fraction] 98 % Josafat Degidio DO Work Phone: [facility] 06-28-2024 08:47-0400 Systolic blood pressure 134 mm[Hg] Josafat Degidio DO Work Phone: [facility] 06-15-2024 21:32-0400 Body height 185.4 cm Lisa Polanco MD Work Phone: [employer] 06-15-2024 21:32-0400 Body mass index (BMI) [Ratio] 24.72 kg/m2 Lisa Polanco MD Work Phone: [employer] 06-15-2024 21:32-0400 Body temperature 98.01 [degF] Lisa Polanco MD Work Phone: [employer] 06-15-2024 21:32-0400 Body weight 85 kg Lisa Polanco MD Work Phone: [employer] 06-15-2024 21:32-0400 Diastolic blood pressure 87 mm[Hg] Lisa Polanco MD Work Phone: [employer] 06-15-2024 21:32-0400 Heart rate 92 /min Lisa Polanco MD Work Phone: [employer] 06-15-2024 21:32-0400 Respiratory rate 20 /min Lisa Polanco MD Work Phone: [facility] [employer] 06-15-2024 21:32-0400 SaO2% (BldA) [Mass fraction] 99 % Lisa Polanco MD Work Phone: [employer] 06-15-2024 21:32-0400 Systolic blood pressure 154 mm[Hg] Lisa Polanco MD Work Phone: [employer] 05-19-2024 14:00-0500 Diastolic blood pressure 96 mm[Hg] Josafat Degidio DO Work Phone: [employer] 05-19-2024 14:00-0500 SaO2% (BldA) [Mass fraction] 98 % Josafat Degidio DO Work Phone: [employer] 05-19-2024 14:00-0500 Systolic blood pressure 122 mm[Hg] Josafat Degidio DO Work Phone: [employer] 05-18-2024 21:51-0500 Body height 185.4 cm Josafat Degidio DO Work Phone: [employer] 05-18-2024 21:51-0500 Body mass index (BMI) [Ratio] 24.41 kg/m2 Josafat Degidio DO Work Phone: [employer] 05-18-2024 21:51-0500 Body temperature 98.1 [degF] Josafat Degidio DO Work Phone: [employer] 05-18-2024 21:51-0500 Body weight 83.92 kg Josafat Degidio DO Work Phone: [employer] 05-18-2024 21:51-0500 Heart rate 85 /min Josafat Degidio DO Work Phone: [employer] 05-18-2024 21:51-0500 Respiratory rate 20 /min Josafat Degidio DO Work Phone: [facility] 02-26-2024 07:35-0500 Body temperature 97.7 [degF] Sha Foster MD Work Phone: [facility] 02-26-2024 07:35-0500 Diastolic blood pressure 103 mm[Hg] Sha Foster MD Work Phone: [facility] 02-26-2024 07:35-0500 Heart rate 67 /min Sha Foster MD Work Phone: [facility] 02-26-2024 07:35-0500 Respiratory rate 18 /min Sha Foster MD Work Phone: [facility] 02-26-2024 07:35-0500 SaO2% (BldA) [Mass fraction] 98 % Sha Foster MD Work Phone: [facility] 02-26-2024 07:35-0500 Systolic blood pressure 137 mm[Hg] Sha Foster MD Work Phone: [facility] 02-23-2024 02:23-0500 Body height 185.4 cm Sha Foster MD Work Phone: [facility] 02-23-2024 02:23-0500 Body mass index (BMI) [Ratio] 24.37 kg/m2 Sha Foster MD Work Phone: [facility] 02-23-2024 02:23-0500 Body weight 83.78 kg Sha Foster MD Work Phone: [facility] 02-09-2024 00:18-0500 Diastolic blood pressure 84 mm[Hg] [facility] 02-09-2024 00:18-0500 Respiratory rate 18 /min Josafat Degidio DO Work Phone: [facility] [employer] 02-09-2024 00:18-0500 SaO2% (BldA) [Mass fraction] 96 % Josafat Degidio DO Work Phone: [facility] [employer] 02-09-2024 00:18-0500 Systolic blood pressure 106 mm[Hg] Josafat Degidio DO Work Phone: [facility] [employer] 02-08-2024 21:59-0500 Body height 185.4 cm Josafat Degidio DO Work Phone: [facility] [employer] 02-08-2024 21:59-0500 Body mass index (BMI) [Ratio] 24.41 kg/m2 Josafat Degidio DO Work Phone: [facility] [employer] 02-08-2024 21:59-0500 Body temperature 97.3 [degF] Josafat Degidio DO Work Phone: [facility] [employer] 02-08-2024 21:59-0500 Body weight 83.92 kg Josafat Degidio DO Work Phone: [email or web address] 02-08-2024 21:59-0500 Heart rate 88 /min Josafat Degidio DO Work Phone: [facility] [employer] 01-29-2024 19:20-0500 Body height 185.4 cm Zuleyka Bryant DO Work Phone: [facility] [employer] 01-29-2024 19:20-0500 Body mass index (BMI) [Ratio] 24.41 kg/m2 Zuleyka Bryant DO Work Phone: [email or web address] 01-29-2024 19:20-0500 Body temperature 98.2 [degF] Zuleyka Bryant DO Work Phone: [facility] [employer] 01-29-2024 19:20-0500 Body weight 83.92 kg Zuleyka Bryant DO Work Phone: [facility] [employer] 01-29-2024 19:20-0500 Diastolic blood pressure 93 mm[Hg] Zuleyka Bryant DO Work Phone: [facility] [employer] 01-29-2024 19:20-0500 Heart rate 95 /min Zuleyka Bryant DO Work Phone: [facility] [employer] 01-29-2024 19:20-0500 Respiratory rate 18 /min Zuleyka Bryant DO Work Phone: [facility] [employer] 01-29-2024 19:20-0500 SaO2% (BldA) [Mass fraction] 97 % Zuleyka Bryant DO Work Phone: [facility] [employer] 01-29-2024 19:20-0500 Systolic blood pressure 128 mm[Hg] Zuleyka Bryant DO Work Phone: [facility] [employer] 12-12-2023 18:53-0400 Body height 182.9 cm Josafat Degidio DO Work Phone: [facility] [employer] 12-12-2023 18:53-0400 Body mass index (BMI) [Ratio] 25.09 kg/m2 Josafat Degidio DO Work Phone: [facility] [employer] 12-12-2023 18:53-0400 Body weight 83.92 kg Josafat Degidio DO Work Phone: [facility] [employer] 12-12-2023 18:35-0400 Body temperature 98.71 [degF] Josafat Degidio DO Work Phone: [facility] [employer] 12-12-2023 18:35-0400 Diastolic blood pressure 105 mm[Hg] Josafat Degidio DO Work Phone: [facility] [employer] 12-12-2023 18:35-0400 Heart rate 105 /min Josafat Degidio DO Work Phone: [facility] [employer] 12-12-2023 18:35-0400 Respiratory rate 18 /min Josafat Degidio DO Work Phone: [facility] 12-12-2023 18:35-0400 SaO2% (BldA) [Mass fraction] 100 % Josafat Leonard DO Work Phone: [facility] 12-12-2023 18:35-0400 Systolic blood pressure 163 mm[Hg] Josafat Hilarioidio DO Work Phone: [facility] 05-18-2023 15:51-0500 Body temperature 98.2 [degF] [facility] 05-18-2023 15:51-0500 Diastolic blood pressure 86 mm[Hg] [facility] 05-18-2023 15:51-0500 Heart rate 88 /min [facility] 05-18-2023 15:51-0500 Respiratory rate 18 /min [facility] 05-18-2023 15:51-0500 SaO2% (BldA) [Mass fraction] 99 % [facility] 05-18-2023 15:51-0500 Systolic blood pressure 136 mm[Hg] [facility] 05-18-2023 14:08-0500 Body height 185.42 cm [facility] 05-18-2023 14:08-0500 Body mass index (BMI) [Ratio] 25.4 kg/m2 [facility] 05-18-2023 14:08-0500 Body weight 87.67 kg [facility] 04-10-2023 18:44-0500 Heart rate 79 /min [facility] 04-10-2023 18:44-0500 Respiratory rate 16 /min [facility] 04-10-2023 18:44-0500 SaO2% (BldA) [Mass fraction] 98 % [facility] 04-10-2023 16:36-0500 Body height 185.42 cm [facility] 04-10-2023 16:36-0500 Body mass index (BMI) [Ratio] 25.9 kg/m2 [facility] 04-10-2023 16:36-0500 Body temperature 98.1 [degF] [facility] 04-10-2023 16:36-0500 Body weight 89.1 kg [facility] 04-10-2023 16:36-0500 Diastolic blood pressure 100 mm[Hg] [facility] 04-10-2023 16:36-0500 Systolic blood pressure 152 mm[Hg] [facility] 03-09-2023 11:08-0500 Body height 185.42 cm [facility] 03-09-2023 11:08-0500 Body mass index (BMI) [Ratio] 23.3 kg/m2 [facility] 03-09-2023 11:08-0500 Body temperature 96.8 [degF] [facility] 03-09-2023 11:08-0500 Body weight 80.28 kg [facility] 03-09-2023 11:08-0500 Diastolic blood pressure 95 mm[Hg] [facility] 03-09-2023 11:08-0500 Heart rate 125 /min [facility] 03-09-2023 11:08-0500 Respiratory rate 18 /min [facility] 03-09-2023 11:08-0500 SaO2% (BldA) [Mass fraction] 100 % [facility] 03-09-2023 11:08-0500 Systolic blood pressure 123 mm[Hg] [facility] 11-09-2022 13:32-0400 Body height 185.42 cm [facility] 11-09-2022 13:32-0400 Body mass index (BMI) [Ratio] 25 kg/m2 [facility] 11-09-2022 13:32-0400 Body temperature 97 [degF] [facility] 11-09-2022 13:32-0400 Body weight 86.27 kg [facility] 11-09-2022 13:32-0400 Diastolic blood pressure 94 mm[Hg] [facility] 11-09-2022 13:32-0400 Heart rate 117 /min [facility] 11-09-2022 13:32-0400 Respiratory rate 22 /min [facility] 11-09-2022 13:32-0400 SaO2% (BldA) [Mass fraction] 99 % [facility] 11-09-2022 13:32-0400 Systolic blood pressure 151 mm[Hg] [facility] 06-16-2022 22:21-0400 Diastolic blood pressure 95 mm[Hg] [facility] 06-16-2022 22:21-0400 Heart rate 104 /min [facility] 06-16-2022 22:21-0400 Respiratory rate 18 /min [facility] 06-16-2022 22:21-0400 SaO2% (BldA) [Mass fraction] 97 % [facility] 06-16-2022 22:21-0400 Systolic blood pressure 133 mm[Hg] [facility] 06-16-2022 22:15-0400 Body height 185.42 cm [facility] 06-16-2022 22:15-0400 Body mass index (BMI) [Ratio] 25.2 kg/m2 [facility] 06-16-2022 22:15-0400 Body temperature 98.5 [degF] [facility] 06-16-2022 22:15-0400 Body weight 86.9 kg [facility] 08-22-2021 00:06-0400 Respiratory rate 17 /min [facility] Work Phone: 08-22-2021 00:05-0400 Diastolic blood pressure 74 mm[Hg] [facility] Work Phone: 08-22-2021 00:05-0400 Heart rate 74 /min [facility] Work Phone: 08-22-2021 00:05-0400 SaO2% (BldA) [Mass fraction] 98 % [facility] Work Phone: 08-22-2021 00:05-0400 Systolic blood pressure 132 mm[Hg] [facility] Work Phone: 08-21-2021 04:42-0400 Body temperature 98.9 [degF] [facility] Work Phone: 08-20-2021 15:33-0400 Body height 185.42 cm [facility] Work Phone: 08-20-2021 15:33-0400 Body mass index (BMI) [Ratio] 27.7 kg/m2 [facility] Work Phone: 08-20-2021 15:33-0400 Body weight 95.3 kg [facility] Work Phone: 08-19-2021 15:14-0400 Diastolic blood pressure 75 mm[Hg] [facility] Work Phone: 08-19-2021 15:14-0400 Heart rate 76 /min [facility] Work Phone: 08-19-2021 15:14-0400 Respiratory rate 16 /min [facility] Work Phone: 08-19-2021 15:14-0400 SaO2% (BldA) [Mass fraction] 97 % [facility] Work Phone: 08-19-2021 15:14-0400 Systolic blood pressure 123 mm[Hg] [facility] Work Phone: 08-19-2021 13:05-0400 Body height 185.42 cm [facility] Work Phone: 08-19-2021 13:05-0400 Body mass index (BMI) [Ratio] 28.3 kg/m2 [facility] Work Phone: 08-19-2021 13:05-0400 Body temperature 98 [degF] [facility] Work Phone: 08-19-2021 13:05-0400 Body weight 97.3 kg [facility] Work Phone: 06-15-2021 20:23-0400 Body height 185.42 cm [facility] Work Phone: 06-15-2021 20:23-0400 Body mass index (BMI) [Ratio] 28.4 kg/m2 [facility] Work Phone: 06-15-2021 20:23-0400 Body temperature 97.8 [degF] [facility] Work Phone: 06-15-2021 20:23-0400 Body weight 97.8 kg [facility] Work Phone: 06-15-2021 20:23-0400 Diastolic blood pressure 118 mm[Hg] [facility] Work Phone: 06-15-2021 20:23-0400 Heart rate 129 /min [facility] Work Phone: 06-15-2021 20:23-0400 Respiratory rate 20 /min [facility] Work Phone: 06-15-2021 20:23-0400 SaO2% (BldA) [Mass fraction] 96 % [facility] Work Phone: 06-15-2021 20:23-0400 Systolic blood pressure 164 mm[Hg] [facility] Work Phone: 03-18-2021 18:10-0500 Body mass index (BMI) [Ratio] 27.7 kg/m2 [facility] Work Phone: 03-18-2021 18:10-0500 Body temperature 98.2 [degF] [facility] Work Phone: 03-18-2021 18:10-0500 Body weight 95.25 kg [facility] Work Phone: 03-18-2021 18:10-0500 Diastolic blood pressure 104 mm[Hg] [facility] Work Phone: 03-18-2021 18:10-0500 Heart rate 115 /min [facility] Work Phone: 03-18-2021 18:10-0500 Respiratory rate 20 /min [facility] Work Phone: 03-18-2021 18:10-0500 SaO2% (BldA) [Mass fraction] 99 % [facility] Work Phone: 03-18-2021 18:10-0500 Systolic blood pressure 149 mm[Hg] [facility] Work Phone: 02-15-2021 10:51-0500 Diastolic blood pressure 81 mm[Hg] [facility] Work Phone: 02-15-2021 10:51-0500 Heart rate 82 /min [facility] Work Phone: 02-15-2021 10:51-0500 Systolic blood pressure 132 mm[Hg] [facility] Work Phone: 02-15-2021 09:23-0500 Body mass index (BMI) [Ratio] 28.2 kg/m2 [facility] Work Phone: 02-15-2021 09:23-0500 Body temperature 98.6 [degF] [facility] Work Phone: 02-15-2021 09:23-0500 Body weight 97 kg [facility] Work Phone: 02-15-2021 09:23-0500 Respiratory rate 18 /min [facility] Work Phone: 02-15-2021 09:23-0500 SaO2% (BldA) [Mass fraction] 98 % [facility] Work Phone: Encounters Encounter Date Encounter Type Care Provider Facility Start: 12-15-2024 ambulatory [facility] Start: 12-12-2024 ambulatory ZURI MELO [facility] Start: 12-08-2024 End: 12-08-2024 Emergency department patient visit Parrish Talbert MD Work Phone: [facility] Comment on above: Low back pain with l eft-sided sciatica, unspecified back pain laterality, unspecified chronicity (Primary Dx) Start: 12-08-2024 End: 12-08-2024 ambulatory SHA FOSTER [facility] Start: 12-08-2024 End: 12-08-2024 Subsequent hospital visit by physician Juanita Mri 1 [facility] Comment on above: Myelopathy (Multi) Start: 12-05-2024 End: 12-05-2024 ambulatory [facility] Start: 12-01-2024 End: 12-01-2024 ambulatory [facility] Start: 11-24-2024 End: 11-24-2024 ambulatory [facility] Start: 11-21-2024 End: 11-21-2024 ambulatory [facility] Start: 11-16-2024 End: 11-16-2024 ambulatory [facility] Start: 11-14-2024 End: 11-14-2024 ambulatory [facility] Start: 11-10-2024 End: 11-11-2024 Emergency department patient visit Dr. Josafat Leonard DO Work Phone: -Emergency Department Work Phone: Start: 11-10-2024 End: 11-10-2024 Office outpatient visit 25 minutes Sha Foster MD Work Phone: [facility] Comment on above: Myelopathy (Multi) Start: 11-10-2024 End: 11-10-2024 ambulatory [facility] Start: 10-31-2024 End: 10-31-2024 Office outpatient visit 25 minutes Nighat Griffin MD Work Phone: [facility] Comment on above: Herniated nucleus pu lposus, L4-5 (Primary Dx); Paresthesia of upper extremity; Spinal stenosis, cervical region; Pain of left lower extremity; Chronic bilateral low back pain with left-sided sciatica; Spinal stenosis of cervical region; Weakness of left foot; Neurogenic bowel; Back pain with radiculopathy; Left foot drop; Cervical myelopathy Start: 10-31-2024 End: 10-31-2024 ambulatory [facility] Start: 10-23-2024 End: 10-23-2024 Emergency department patient visit Dr. Josafat Leonard DO Work Phone: -Emergency Department Work Phone: Start: 10-16-2024 End: 10-16-2024 ambulatory ZURI [facility] Start: 10-12-2024 End: 10-12-2024 Subsequent hospital visit by physician Nicholas Ruano [facility] Comment on above: Herniated nucleus pu lposus, L4-5; Pain of left lower extremity; Weakness of left foot; Neurogenic bowel; Left foot drop Start: 10-12-2024 End: 10-12-2024 ambulatory [facility] Start: 10-02-2024 End: 10-02-2024 ambulatory [facility] Start: 10-02-2024 End: 10-02-2024 Office outpatient new 60 minutes Nighat Griffin MD Work Phone: [facility] Comment on above: Herniated nucleus pu lposus, L4-5 (Primary Dx); Paresthesia of upper extremity; Spinal stenosis, cervical region; Spinal stenosis of cervical region; Chronic bilateral low back pain with left-sided sciatica; Pain of left lower extremity; Weakness of left foot; Neurogenic bowel; Back pain with radiculopathy; Cervical myelopathy; Left foot drop Start: 07-24-2024 End: 07-24-2024 [facility] Start: 07-24-2024 End: 07-24-2024 Office outpatient new 45 minutes Suraj Meyers MD Work Phone: [facility] Comment on above: Back pain with radic ulopathy Start: 07-19-2024 End: 07-19-2024 Office outpatient new 60 minutes Radha Dixon DO Work Phone: [facility] Comment on above: Cervical myelopathy (Primary Dx); Back pain with radiculopathy Start: 07-19-2024 End: 07-19-2024 ambulatory [facility] Start: 07-13-2024 End: 07-14-2024 Emergency department patient visit [facility] Comment on above: Acute exacerbation o f chronic low back pain (Primary Dx) Start: 06-28-2024 Encounter for genera l adult medical examination without abnormal findings [facility] Start: 06-28-2024 End: 06-28-2024 Office outpatient new 60 minutes [facility] Work Phone: [facility] Comment on above: Preventative health care (Primary Dx); Other chronic pain; Vitamin D deficiency; Attention deficit hyperactivity disorder (ADHD), unspecified ADHD type; Hyperlipidemia, unspecified hyperlipidemia type; Bipolar affective disorder, remission status unspecified (Multi); Hyperverbal speech Start: 06-28-2024 End: 06-28-2024 Patient encounter status [facility] Work Phone: [facility] Work Phone: Start: 06-28-2024 ambulatory [facility] Start: 06-28-2024 Encounter for genera l adult medical examination without abnormal findings [facility] Start: 06-15-2024 End: 06-15-2024 Emergency department patient visit Lisa Polanco MD Work Phone: [facility] Emergency [facility] Comment on above: Sciatica of left brice e (Primary Dx) Start: 06-06-2024 End: 06-06-2024 Office outpatient visit 25 minutes Sha Foster MD Work Phone: [facility] Comment on above: Cervical radiculopat hy (Primary Dx) Start: 06-06-2024 End: 06-06-2024 Subsequent hospital visit by physician Juanita Hay X-Ray 2 [facility] Comment on above: Cervical radiculopat hy Start: 06-06-2024 End: 06-06-2024 ambulatory [place] Maribel CRISTIAN [facility] Start: 05-19-2024 End: 05-19-2024 Emergency department patient visit [facility] Comment on above: Accidental fall, ini tial encounter (Primary Dx); Neck sprain, initial encounter; Lumbar radiculopathy, acute; Leg weakness, bilateral Start: 03-07-2024 End: 03-07-2024 Postop follow up visit related to original px Sha Foster MD Work Phone: [facility] Comment on above: Cervical radiculopat hy (Primary Dx) Start: 03-07-2024 End: 03-07-2024 Subsequent hospital visit by physician Juanita Hay X-Ray 3 [facility] Comment on above: Cervical radiculopat hy Start: 03-07-2024 End: 03-07-2024 ambulatory [facility] Start: 02-28-2024 End: 02-28-2024 Patient encounter procedure Jeff Nichols MD Work Phone: [facility] Comment on above: Arrived Start: 02-28-2024 End: 02-28-2024 ambulatory JEFF NICHOLS [facility] Start: 02-22-2024 Evaluation and manag ement of inpatient [facility] Start: 02-22-2024 End: 02-26-2024 Evaluation and management of inpatient Sha Foster MD Work Phone: [facility] 6 Comment on above: Spinal stenosis ([place] Dx); Spinal stenosis, cervical region; Abscess of axilla, left Start: 02-22-2024 Evaluation and manag ement of inpatient [place] Maribel [facility] Start: 02-22-2024 End: 02-22-2024 Office outpatient visit 40 minutes Sha Foster MD Work Phone: [facility] Comment on above: Cervical radiculopat hy Start: 02-22-2024 End: 02-22-2024 ambulatory [facility] Start: 02-17-2024 End: 02-17-2024 Subsequent hospital visit by physician Nicholas Ruano [facility] Comment on above: Back pain with radic ulopathy Start: 02-17-2024 End: 02-17-2024 ambulatory [facility] Start: 02-08-2024 End: 02-09-2024 Emergency department patient visit [facility] Comment on above: Lumbosacral radiculi tis (Primary Dx) Start: 02-08-2024 End: 02-08-2024 Office outpatient visit 40 minutes Sha Foster MD Work Phone: [facility] Comment on above: Back pain with radic ulopathy (Primary Dx) Start: 02-08-2024 End: 02-08-2024 ambulatory [facility] Start: 01-29-2024 End: 01-29-2024 Emergency department patient visit Zuleyka Bryant Work Phone: [facility] Comment on above: Chronic bilateral lo w back pain with bilateral sciatica (Primary Dx); Incontinence of feces with fecal urgency Start: 01-20-2024 End: 01-20-2024 Emergency department patient visit [facility] Facility:[facility] Start: 01-12-2024 End: 01-12-2024 Emergency department patient visit [facility] Facility:[facility] Start: 01-04-2024 End: 01-04-2024 Emergency department patient visit [facility] Facility:[facility] Start: 12-14-2023 End: 12-14-2023 Office outpatient visit 25 minutes Sha Foster MD Work Phone: [facility] Comment on above: Lumbar pain (Primary Dx); Lumbar radiculopathy Start: 12-12-2023 End: 12-12-2023 Emergency department patient visit [facility] Comment on above: Acute exacerbation o f chronic low back pain (Primary Dx) Start: 12-07-2023 End: 12-07-2023 Emergency department patient visit [facility] Start: 11-14-2023 End: 11-15-2023 Emergency department patient visit [facility] Start: 08-28-2023 End: 08-28-2023 [facility] Start: 05-18-2023 End: 05-18-2023 Emergency department patient visit [facility] Work Phone: Start: 05-04-2023 End: 05-04-2023 Subsequent hospital visit by physician Juanita Hay X-Ray 1 [facility] Comment on above: Lumbar pain Start: 05-04-2023 End: 05-04-2023 Office outpatient new 45 minutes Sha Foster MD Work Phone: [facility] Comment on above: Lumbar pain (Primary Dx); Lumbar radiculopathy Start: 04-10-2023 End: 04-10-2023 Emergency department patient visit [facility] Work Phone: Start: 03-09-2023 End: 03-09-2023 Emergency department patient visit [facility] Work Phone: Start: 12-04-[address] Sha Foster Facility:[id number] Start: 11-09-2022 End: 11-09-2022 Emergency department patient visit [facility] Work Phone: Start: 06-16-2022 End: 06-16-2022 Emergency department patient visit [facility] Start: 03-17-[address] Sha Foster Facility:[id number] Start: 08-20-2021 End: 08-22-2021 Emergency department patient visit [facility] Start: 08-19-2021 End: 08-19-2021 Emergency department patient visit [facility] Start: 06-15-2021 End: 06-15-2021 Emergency department patient visit [facility] Start: 03-18-2021 End: 03-18-2021 Emergency department patient visit [facility] Start: 02-15-2021 End: 02-15-2021 Emergency department patient visit [facility] Start: 02-15-2018 Patient encounter procedure SHA FOSTER Facility:[id number] Start: 01-26-2018 Patient encounter procedure SHA FOSTER Facility:[facility] Start: 01-04-2018 Patient encounter procedure SHA FOSTER Facility:[id number] Start: 10-19-2017 Patient encounter procedure TUAN ALBARADO Facility:[id number] Start: 06-25-2017 Patient encounter procedure SHA FOSTER Facility:[id number] Start: 05-27-2017 End: 05-27-2017 Emergency department patient visit TOM BRANCH Facility:[facility] Procedures Date Procedure Procedure Detail Performing Clinician Start: 12-08-2024 Ct lumbar spine w/o contrast material Parrish Talbert MD Work Phone: Start: 07-14-2024 Drug tst prsmv instr mnt [...] Basic metabolic panel calcium total Jewels Nolan [employer] CHEMIST-PHARMACY TECHNICIAN [employer]US[employer] Work Phone: Start: 02-24-2024 EXTRA TUBES Sha lomax MD Work Phone: Start: 02-24-2024 SST TOP Sha lomax MD Work Phone: Start: 02-23-2024 Ecg routine ecg w/le ast 12 lds trcg only w/o i&r Jewels N Ovidio [employer] CHEMIST-PHARMACY TECHNICIAN INFUSION Work Phone: Start: 02-23-2024 Drug screen quantita tive vancomycin Param Bogner PharmD Start: 02-23-2024 Cul bact xcpt urine blood/stool aerobic isol Qi Castillo [employer] CHEMIST-PHARMACY TECHNICIAN INFUSION Work Phone: Start: 02-23-2024 Drug screen quantita tive vancomycin Param Bogner PharmD Start: 02-23-2024 EXTRA TUBES Sha lomax MD Work Phone: Start: 02-23-2024 LAVENDER TOP Sha lomax MD Work Phone: Start: 02-22-2024 Ct thorax w/contrast material Haley Yates [employer] CHEMIST-PHARMACY TECHNICIAN INFUSION Work Phone: Start: 02-22-2024 Culture bacterial bl ood aerobic w/id isolates Haley Yates [employer] CHEMIST-PHARMACY TECHNICIAN INFUSION Work Phone: Start: 02-22-2024 End: 02-22-2024 C-reactive protein Haley Yates [employer] CHEMIST-PHARMACY TECHNICIAN INFUS[employer] Work Phone: Start: 02-22-2024 End: 02-22-2024 Comprehensive metabolic panel Dev Martel PA-C Work Phone: Start: 02-22-2024 EXTRA TUBES Sha lomax MD Work Phone: Start: 02-22-2024 SST TOP Sha lomax MD Work Phone: Start: 01-29-2024 Urnls dip stick/tabl et rgnt auto w/o microscopy Zuleyka [place] DO Work Phone: Start: 01-29-2024 C-reactive protein [facility] eri [place] DO Work Phone: Start: 01-29-2024 Comprehensive metabo lic panel [facility] DO Work Phone: Start: 05-04-2023 Radex spine lumbosac ral minimum 4 views Sha Foster MD Work Phone: Start: 08-20-2021 Viral antigen assay Start: 09-28-2017 Lipid 1996 panel - S matthew or Plasma Sha Foster MD Work Phone: Plan of Treatment Date Care Activity Detail Author Start: 08-12-2031 Zoster Vaccines (1 of 2) Zoster Vaccines (1 of 2) [facility] Start: 02-25-2027 Diabetes mellitus screening Diabetes Screening [facility] Start: 06-29-2025 Yearly Adult Physical Yearly Adult Physical [facility] Start: 01-09-2025 End: 01-09-2025 Patient encounter procedure 01/09/2025 10:45 AM EDT Office Visit [facility] [address] [place] [phone] Nighat Griffin MD [address] [place] [address] [facility] Start: 12-26-2024 End: 12-26-2024 Patient encounter procedure 12/26/2024 1:00 PM EDT Office Visit [facility] [address] [phone] Sha Foster MD [address] [facility], [address] [place] [address] [facility] Start: 12-15-2024 End: 12-15-2024 ambulatory 12/15/2024 1:15 PM EDT Treatment [facility] Eimly [facility] [address] [place] [address] Natividad Ferguson, ASSOCIATE FINANCIAL REPRESENTATIVE [address] [facility] [place] [address] [facility] Start: 12-12-2024 End: 12-12-2024 ambulatory 12/12/2024 2:00 PM EDT Treatment [facility] [address] [place] [address] [place] [address] [place] [address] [facility] Start: 12-08-2024 End: 12-08-2024 ambulatory 12/08/2024 10:45 AM EDT Treatment [facility] [address] [place] [address] [place] [address] [place] [address] Toya Diaz [facility] Start: 12-05-2024 End: 12-05-2024 ambulatory 12/05/2024 2:45 PM EDT [facility] [address] [place] [address] [place] [address] [place] [address] [facility] Start: 12-01-2024 End: 12-01-2024 ambulatory 12/01/2024 3:30 PM EDT Treatment Toya Diaz [facility] [address] [place] [phone] Natividad Ferguson, ASSOCIATE FINANCIAL REPRESENTATIVE [address] [place] [address] [facility] Start: 11-28-2024 End: 11-28-2024 ambulatory 11/28/2024 10:30 AM EDT Treatment Toya Diaz [facility] [address] [place] [address] Natividad Ferguson, ASSOCIATE FINANCIAL REPRESENTATIVE [address] [place] [address] Toya Diaz [facility] Start: 11-24-2024 End: 11-24-2024 ambulatory 11/24/2024 10:45 AM EDT Treatment Toya Diaz [facility] [address] [place] [address] [place] [address] [place] [address] Toya Diaz [facility] Start: 11-21-2024 End: 11-21-2024 ambulatory 11/21/2024 9:00 AM EDT [facility] [address] [place] [phone] Natividad Ferguson, ASSOCIATE FINANCIAL REPRESENTATIVE [address] [place] [address] [facility] Start: 11-16-2024 End: 11-16-2024 ambulatory 11/16/2024 11:15 AM EDT Treatment [facility] [address] [place] [phone] [place] [address] [place], [place] [phone] [facility] Start: 11-14-2024 End: 11-14-2024 ambulatory 11/14/2024 10:30 AM EDT Treatment [facility] [address] [place] [phone] Natividad Ferguson, ASSOCIATE FINANCIAL REPRESENTATIVE [address] [place] [address] [facility] Start: 11-13-2024 COVID-19 Vaccine ( season) COVID-19 Vaccine ( season) [facility] Start: 11-13-2024 Influenza vaccination [facility] Start: 11-11-2024 [facility] Start: 11-10-2024 End: 11-10-2025 MR Cervical spine WO contrast MR cervical spine wo IV contrast Imaging Routine Myelopathy (Multi) Expected: 11/10/2024 (Approximate), Expires: 11/10/2025 [facility] Service Area Work Phone: Comment on above: Expected: 11/10/2024 (Approximate), Expi res: 11/10/2025 Start: 11-10-2024 End: 11-10-2025 MR Thoracic spine WO contrast MR thoracic spine wo IV contrast Imaging Routine Myelopathy (Multi) Expected: 11/10/2024 (Approximate), Expires: 11/10/2025 [facility] Work Phone: Comment on above: Expected: 11/10/2024 (Approximate), Expi res: 11/10/2025 Start: 10-31-2024 End: 10-31-2024 Patient encounter procedure 10/31/2024 10:00 AM EDT Office Visit [facility] [address] [facility] [address] [place] [phone] Nighat Griffin MD [address] [facility] [address] [place] [address] [facility] Start: 10-16-2024 End: 10-16-2024 Clinical Support 10/16/2024 4:00 PM EDT Clinical Support [facility] [address] [place] [phone] Zuri Melo, SAMEER [address] [place] [address] [facility] Start: 10-13-2024 Influenza vaccination Flu vaccine (Season Ended) [facility] Start: 10-12-2024 End: 10-12-2024 Patient encounter procedure 10/12/2024 1:45 PM EDT Appointment [address] [phone] [facility] Start: 10-02-2024 End: 10-02-2025 MR Lumbar spine WO contrast MR lumbar spine wo IV contrast Imaging Routine Herniated nucleus pulposus, L4-5 Pain of left lower extremity Weakness of left foot Neurogenic bowel Left foot drop Expected: 10/02/2024, Expires: 10/02/2025 [facility] Service Area Work Phone: Comment on above: Expected: 10/02/2024, Expires: Start: 10-02-2024 End: 10-02-2024 Patient encounter procedure 10/02/2024 11:30 AM EDT Consult [address] [place] [address] Nighat Griffin MD [address] [place] [address] [facility] Start: 07-24-2024 End: 07-24-2024 Patient encounter procedure 07/24/2024 8:30 AM EDT Office Visit [address] Bol[address] [place] [address] Suraj Meyers MD [address] [place] [address], [address] [place] [address] [facility] Start: 07-19-2024 End: 07-19-2024 Patient encounter procedure 07/19/2024 10:50 AM EDT Office Visit [facility] [address] [facility]1] [address] [place] [address] Radha Dixon DO [address] [place] [address] [facility] Start: 07-04-2024 End: 07-04-2024 Patient encounter procedure 07/04/2024 8:30 AM EDT Office Visit [facility] [address] [phone] Sha Foster MD [address] [facility], [address] [place] [address] [facility] Start: 06-28-2024 End: 06-28-2024 Patient encounter procedure 06/28/2024 9:20 AM EDT Office Visit [facility] [address] [phone] Josafat Leonard, DO [address] [facility], [address] [facility] [place] [address] [facility] Start: 06-06-2024 End: 06-06-2025 XR Cervical spine 2 or 3 Views [facility] Service Area Work Phone: Comment on above: Expected: 06/06/2024, Expires: Start: 06-06-2024 End: 06-06-2024 Patient encounter procedure 06/06/2024 11:00 AM EDT Office Visit [facility] [address] [place] [phone] Sha Foster MD [address] [facility], [address] [place] [address], [place] [address] [facility] Start: 03-13-2024 End: 03-13-2024 Patient encounter procedure 03/13/2024 9:30 AM EST Office Visit [address] [place] [address] Jeff Nichols MD [address] [place] [address] [facility] [address] [place] [address] [facility] Start: 03-07-2024 End: 03-07-2024 Patient encounter procedure 03/07/2024 11:15 AM EST Office Visit [facility] [address] [place] [address], [place] [phone] Sha Foster MD [address] [facility], [address] [place] [phone] [facility] Start: 03-02-2024 Documentation procedure 03/02/2024 Scanned Document [facility] [address] [place] [phone] Sha Foster MD [address] [facility], [address] [place] [address], [place] [phone] [facility] Start: 02-28-2024 End: 02-28-2024 Patient encounter procedure 02/28/2024 9:30 AM EST Office Visit [facility] [address] [place] [facility] [phone] Jeff Nichols MD [address] [place] [address] Dr [address] [place] [address] [facility] Start: 02-22-2024 End: 02-22-2024 Patient encounter procedure 02/22/2024 10:30 AM EST Office Visit [facility] [address] [place] [phone] Sha Foster MD [address] [facility], [address] [place] [address], [place] [address] [facility] Start: 02-08-2024 End: 02-07-2025 MR Cervical spine WO contrast MR cervical spine wo IV contrast Imaging STAT Back pain with radiculopathy Expected: 02/08/2024, Expires: 02/07/2025 [facility] Service Area Work Phone: Comment on above: Expected: 02/08/2024, Expires: Start: 02-08-2024 End: 02-07-2025 MR Lumbar spine W contrast IV MR lumbar spine w IV contrast Imaging STAT Back pain with radiculopathy Expected: 02/08/2024, Expires: 02/07/2025 [facility] Work Phone: Comment on above: Expected: 02/08/2024, Expires: Start: 02-08-2024 End: 02-07-2025 MR Thoracic spine WO contrast MR thoracic spine wo IV contrast Imaging STAT Back pain with radiculopathy Expected: 02/08/2024, Expires: 02/07/2025 [facility] Work Phone: Comment on above: Expected: 02/08/2024, Expires: Start: 12-14-2023 End: 12-13-2024 MR Lumbar spine WO and W contrast IV MR lumbar spine w and wo IV contrast Imaging Routine Lumbar pain Lumbar radiculopathy Expected: 12/14/2023 (Approximate), Expires: 12/13/2024 [facility] Service Area Work Phone: Comment on above: Expected: 12/14/2023 (Approximate), Expi res: 12/13/2024 Start: 11-14-2023 COVID-19 Vaccine ( season) COVID-19 Vaccine ( season) [facility] Start: 11-14-2023 COVID-19 Vaccine ( season) COVID-19 Vaccine ( season) [facility] Start: 11-14-2023 Influenza vaccination Influenza Vaccine (#1) [facility] Start: 10-14-2023 Influenza vaccination Flu vaccine (#1) [facility] Start: 05-18-2023 [facility] Start: 05-18-2023 End: 05-18-2023 Patient encounter procedure 05/18/2023 2:00 PM EST Appointment [facility] [address] [place] [phone] [facility] Start: 05-04-2023 End: 05-04-2024 MR Lumbar spine WO and W contrast IV MR lumbar spine w and wo IV contrast Imaging Routine Lumbar pain Lumbar radiculopathy Expected: 05/04/2023 (Approximate), Expires: 05/04/2024 [facility] Service Area Work Phone: Comment on above: Expected: 05/04/2023 (Approximate), Expi res: 05/04/2024 Start: 04-10-2023 [facility] Start: 03-09-2023 [facility] Start: 11-13-2022 Influenza vaccination Influenza Vaccine (#1) [facility] Start: 09-28-2022 Lipid panel Lipid Panel [facility] Start: 06-16-2022 Electrocardiographic procedure [facility] Start: 06-16-2022 Plain chest X-ray Chest 1 View (Portable) [facility] Start: 06-16-2022 Troponin I measurement [facility] Start: 06-16-2022 [facility] Start: 2021 Lipid panel Lipids [facility] Start: 09-28-2020 Diabetes mellitus screening Diabetes Screening [facility] Start: 09-28-2018 Hemoglobin A1c measurement Diabetes: Hemoglobin A1C [facility] Start: 11-17-2013 DTaP/Tdap/Td Vaccines (1 - Tdap) DTaP/Tdap/Td Vaccines (1 - Tdap) [facility] Start: 2008 HPV Vaccines (1 - 3-dose standard series) HPV Vaccines (1 - 3-dose standard series) [facility] Start: 08-12-2003 DTaP/Tdap/Td Vaccines (1 - Tdap) DTaP/Tdap/Td Vaccines (1 - Tdap) [facility] Start: 2000 DTaP/Tdap/Td vaccine (1 - Tdap) DTaP/Tdap/Td vaccine (1 - Tdap) [facility] Start: 2000 Hepatitis A Vaccines (1 of 2 - Risk 2-dose series) Hepatitis A Vaccines (1 of 2 - Risk 2-dose series) [facility] Start: 2000 Hepatitis B vaccine (1 of 3 - 19+ 3-dose series) Hepatitis B vaccine (1 of 3 - 19+ 3-dose series) [facility] Start: 2000 Hepatitis B Vaccines (1 of 3 - 19+ 3-dose series) Hepatitis B Vaccines (1 of 3 - 19+ 3-dose series) [facility] Start: 2000 Pneumococcal 0-49 years Vaccine (1 of 2 - PCV) Pneumococcal 0-49 years Vaccine (1 of 2 - PCV) [facility] Start: 2000 Pneumococcal Vaccine: Pediatrics and At-Risk Adult Patients (1 of 2 - PCV) Pneumococcal Vaccine: Pediatrics and At-Risk Adult Patients (1 of 2 - PCV) [facility] Start: 08-12-1999 Hepatitis C screening [facility] Start: 1996 HIV screening HIV screen [facility] Start: 1994 Varicella vaccination Varicella Vaccines (1 of 2 - 13+ 2-dose series) [facility] Start: 1994 Varicella vaccine (1 of 2 - 13+ 2-dose series) Varicella vaccine (1 of 2 - 13+ 2-dose series) [facility] Start: 1993 Depression Screen Depression Screen [facility] Start: 08-12-1987 Pneumococcal 0-64 years Vaccine (1 of 2 - PCV) Pneumococcal 0-64 years Vaccine (1 of 2 - PCV) [facility] Start: 08-12-1987 Pneumococcal Vaccine: Pediatrics (0 to 5 Years) and At-Risk Patients (6 to 64 Years) (1 of 2 - PCV) Pneumococcal Vaccine: Pediatrics (0 to 5 Years) and At-Risk Patients (6 to 64 Years) (1 of 2 - PCV) [facility] Start: 1982 MMR Vaccines (1 of 1 - Standard series) MMR Vaccines (1 of 1 - Standard series) [facility] Start: 1982 Varicella vaccination Varicella Vaccines (1 of 2 - 2-dose childhood series) [facility] Start: 02-11-1982 COVID-19 Vaccine (#1) COVID-19 Vaccine (#1) [facility] Start: 1981 Hepatitis B Vaccines (1 of 3 - 3-dose series) Hepatitis B Vaccines (1 of 3 - 3-dose series) [facility] Start: 1981 Yearly Adult Physical Yearly Adult Physical [facility] Alanine aminotransfe rase [Enzymatic activity/volume] in Serum or Plasma [facility] Albumin [Mass/volume ] in Serum or Plasma [facility] Alkaline phosphatase [Enzymatic activity/volume] in Serum or Plasma [facility] Anion gap measurement [facility] Aspartate aminotrans ferase [Enzymatic activity/volume] in Serum or Plasma [facility] Bacteria identified in Blood by Culture Blood Culture Microbiology Routine 02/22/2024 8:36 PM EST [facility] Service Area Work Phone: End: 02-23-2024 Bacteria identified in Unspecified specimen by Culture Tissue/Wound Culture/Smear Microbiology Routine Once (Lab) for 1 Occurrences starting 02/23/2024 until 02/23/2024 [facility] Work Phone: Comment on above: Once (Lab) for 1 Occurrences starting until 02/23/2024 End: 02-27-2024 Basic metabolic 2000 panel - Serum or Plasma Basic metabolic panel Lab Routine Morning draw (Lab) for 3 Occurrences starting 02/25/2024 until 02/27/2024, 2 completed [facility] Work Phone: Comment on above: Morning draw (Lab) for 3 Occurrences sta rting 02/25/2024 until 02/27/2024, 2 completed Bilirubin, total measurement [facility] BUN/Creatinine ratio [facility] Calcium [Mass/volume ] in Serum or Plasma [facility] Carbon dioxide, tota l [Moles/volume] in Serum or Plasma [facility] End: 02-27-2024 CBC panel - Blood by Automated count CBC Lab Routine Morning draw (Lab) for 3 Occurrences starting 02/25/2024 until 02/27/2024, 2 completed [facility] Work Phone: Comment on above: Morning draw (Lab) for 3 Occurrences sta rting 02/25/2024 until 02/27/2024, 2 completed Chloride [Moles/volu me] in Serum or Plasma [facility] Creatinine [Moles/vo lume] in Serum or Plasma [facility] ECG 12 lead ECG 12 lead ECG STAT 02/23/2024 2:38 PM EST [facility] Area Work Phone: End: 02-22-2024 Extra Urine Castrejon Tube Extra Urine [facility]re[facility] [employer] Lab Timed Once for 1 Occurrences starting 02/22/2024 until 02/22/2024 [facility] Work Phone: Comment on above: Once for 1 Occurrences starting 02/22/20 until 02/22/2024 Glucose [Mass/volume ] in Serum or Plasma [facility] End: 02-22-2024 Glucose [Mass/volume] in Serum or Plasma POCT Glucose Point of Care Testing - Docked Device Routine Once (Lab) for 1 Occurrences starting 02/22/2024 until 02/22/2024 [facility] Work Phone: Comment on above: Once (Lab) for 1 Occurrences starting until 02/22/2024 Glucose [Mass/volume ] in Serum or Plasma POCT Glucose Point of Care Testing - Docked Device Routine As needed (Lab) until discontinued starting 02/24/2024 [facility] Work Phone: Comment on above: As needed (Lab) until discontinued start ing 02/24/2024 Hematocrit [Volume F raction] of Blood [facility] Hemoglobin [Mass/vol ume] in Blood [facility] End: 02-24-2024 Incentive spirometry Instruct Incentive spirometry Instruct Respiratory Care Routine Once for 1 Occurrences starting 02/24/2024 until 02/24/2024 [facility] Work Phone: Comment on above: Once for 1 Occurrences starting 02/24/20 until 02/24/2024 Leukocytes [#/volume ] in Blood [facility] Mean corpuscular hem oglobin concentration determination [facility] Mean corpuscular hem oglobin determination [facility] Measurement of renal function [facility] End: 02-17-2024 MR Cervical spine WO contrast [facility] Servi ce Area Work Phone: Comment on above: Once for 1 Occurrences starting 02/17/20 until 02/17/2024 End: 12-08-2024 MR Cervical spine WO contrast [facility] Servi ce Area Work Phone: Comment on above: Once for 1 Occurrences starting 12/09/19 until 12/08/2024 End: 02-17-2024 MR Lumbar spine WO and W contrast IV [facility] Service Area Work Phone: Comment on above: Once for 1 Occurrences starting 02/17/20 until 02/17/2024 End: 10-12-2024 MR Lumbar spine WO contrast [facility] Service Area Work Phone: Comment on above: Once for 1 Occurrences starting 10/13/19 until 10/12/2024 End: 02-17-2024 MR Thoracic spine WO contrast [facility] Servi ce Area Work Phone: Comment on above: Once for 1 Occurrences starting 02/17/20 24 until 02/17/2024 End: 12-08-2024 MR Thoracic spine WO contrast [facility] Servi ce Area Work Phone: Comment on above: Once for 1 Occurrences starting 12/09/19 until 12/08/2024 Neutrophil count [facility] Neutrophil percent differential count [facility] Patient Education [facility] Work Phone: Patient referral [facility] Work Phone: Platelets [#/volume] in Blood [facility] Potassium [Moles/vol ume] in Serum or Plasma [facility] Red blood cell count [facility] Red cell distributio n width determination [facility] Sodium [Moles/volume ] in Serum or Plasma [facility] Total protein measurement [facility] Urea nitrogen [Mass/ volume] in Serum or Plasma [facility] End: 02-22-2024 Urinalysis complete W Reflex Culture panel - Urine [facility] Service Area Work Phone: Comment on above: Once (Lab) for 1 Occurrences starting until 02/22/2024 Once for 1 Occurrenc es starting 02/22/2024 until 02/22/2024 Immunizations Immunization Date Immunization Notes Care Provider Ashley ricardo 11-16-2013 tetanus and diphther ia toxoids, adsorbed, preservative free, for adult use (2 Lf of tetanus toxoid and 2 Lf of diphtheria toxoid) [facility] Payers Date Payer Category Payer Self-pay [id number] 2018 Medicaid (Managed Care) 1.2. [id number] 2018 Unknown [employer] [id number] 2018-Present [address] [place] [address] [id number]. [id number] 2013 Unknown [id number] 2013 Unknown [id number] 1981 Unknown [id number] 2.16840.1.677228.3.579.2. 355 1981 Unknown [id number] 2.16840.1.347919.3.579.2. 355 1981 Unknown [id number] 2.840.1.706265.3.579.2. 355 1981 Unknown [id number] 2.840.1.970619.3.579.2. 355 1981 Unknown [id number] 2.840.1.526190.3.579.2. 355 1981 Unknown [id number] 2.840.1.504434.3.579.2. 355 1981 Unknown [id number] 2.840.1.959015.3.579.2. 8 1981 Unknown [id number] 2.16840.1.164047.3.579.2. 1068 1981 Unknown [id number] 2.840.1.406626.3.579.2. 182 1981 Unknown [id number] 2.840.1.978978.3.579.2. 182 1981 Unknown [id number] 2.16840.1.419648.3.579.2. 182 1981 Unknown [id number] 2.16840.1.871607.3.579.2. 182 1981 Unknown [id number] 2.16840.1.624679.3.579.2. 182 1981 Unknown [id number] 2.16840.1.028146.3.579.2. 182 1981 Unknown [id number] 2.16840.1.104199.3.579.2. 182 1981 Unknown [id number] 2.16840.1.468133.3.579.2. 182 1981 Unknown [id number] 2.840.1.804076.3.579.2. 182 1981 Unknown [id number] 2.840.1.911313.3.579.2. 1242 1981 Unknown [id number] 2.840.1.268105.3.579.2. 1242 1981 Unknown [id number] 2.840.1.748394.3.579.2. 1242 1981 Unknown [id number] 2.0.1.129569.3.579.2. 1242 1981 Unknown [id number] 2.840.1.322742.3.579.2. 1242 1981 Unknown [id number] 2.0.1.654968.3.579.2. 1243 1981 Unknown [id number] 2.840.1.027830.3.579.2. 1243 1981 Unknown [id number] 2840.1.157106.3.579.2. 1243 1981 Unknown [id number] 2.840.1.254372.3.579.2. 1243 1981 Unknown [id number] 2.840.1.715387.3.579.2. 1244 1981 Unknown [id number] 2.840.1.951243.3.579.2. 1246 1981 Unknown [id number] 2.840.1.719154.3.579.2. 1246 1981 Unknown [id number] 2840.1.017697.3.579.2. 1246 1981 Unknown [id number] 2.840.1.970841.3.579.2. 1246 1981 Unknown [id number] 2.840.1.269156.3.579.2. 1246 1981 Unknown [id number] 2.0.1.181941.3.579.2. 1246 1981 Unknown [id number] 2.840.1.210520.3.579.2. 1246 1981 Unknown [id number] 2.0.1.979138.3.579.2. 1246 1981 Unknown [id number] 2.0.1.281181.3.579.2. 1246 1981 Unknown [id number] 2.1.155402.3.579.2. 1245 1981 Unknown [id number] 2.0.1.449581.3.579.2. 1245 1981 Unknown [id number] 2.1.130292.3.579.2. 1245 1981 Unknown [id number] 2.1.011348.3.579.2. 1245 1981 Unknown [id number] 2.1.810732.3.579.2. 1245 1981 Unknown [id number] 2.840.1.354511.3.579.2. 1245 1981 Unknown [id number] 2.0.1.244076.3.579.2. 1245 1981 Unknown [id number] 2.840.1.631179.3.579.2. 1245 1981 Unknown [id number] 2.0.1.071846.3.579.2. 1245 1981 Unknown [id number] 2.16840.1.076846.3.579.2. 1246 1981 Unknown [id number] 2.16.840.1.922111.3.579.2. 1246 1981 Unknown [id number] 2.16.840.1.402110.3.579.2. 1246 1981 Unknown [id number] 2.16.840.1.680433.3.579.2. 1246 Unknown [id number] Unknown [id number] Unknown [id number] 2.16.840.1.212836.3.579.2. 462 Unknown [id number] 2.16.840.1.878726.3.579.2. 462 Unknown [id number] 2.16.840.1.423348.3.579.2. 462 Unknown [id number] 2.16840.1.718309.3.579.2. 462 Unknown [id number] 2.16.840.1.571526.3.579.2. 462 Social History Date Type Detail Facility Start: 06-15-2021 End: 05-18-2023 Tobacco smoking status SDIS Unknown if ever smoked [facility] Start: 01-24-2020 [facility] Start: 08-04-2020 Cigarettes [facility] Start: 1981 Sex Assigned At Male [facility] Start: 05-04-2023 Gender identity Identifies as male gender (finding) [facility] Work Phone: Start: 05-04-2023 Sexual orientation Heterosexual (finding) [facility] Work Phone: Start: 04-24-2023 End: 07-19-2024 Exposure to SARS-CoV-2 (event) Not sure [facility] Start: 02-22-1997 End: 12-11-2024 Tobacco smoking status NHIS Smokes tobacco daily [facility] Start: 02-22-1997 History of tobacco use Cigarette Smoker [facility] Start: 12-22-2016 End: 02-23-2024 Tobacco use and exposure Smokeless tobacco non-user [facility] Start: 12-12-2023 End: 07-13-2024 Alcoholic beverage intake Current drinker of alcohol (finding) [facility] Start: 12-12-2023 End: 02-23-2024 History of Social function [employer] Start: 12-12-2023 End: 02-23-2024 Alcohol Use Disorder Identification Test - Consumption [AUDIT-C] [facility] How often to you hav e a drink containing alcohol? Never [facility] Start: 02-06-2022 How many standard drinks containing alcohol do you have on a typical day? Patient does not drink [facility] Start: 08-12-2016 Alcohol Comment rarely [facility] Start: 1980 Sex assigned at Not on file [facility] Has the [employer], or water [employer] threatened to shut off services in your home in past 12Mo No [facility] How hard is it for y ou to pay for the very basics like food, housing, medical care, and heating Somewhat hard [facility] How often to you hav e a drink containing alcohol? Monthly or less [facility] How many standard dr inks containing alcohol do you have on a typical day? 1 or 2 [facility] How often do you hav e 6 or more drinks on 1 occasion? Less than monthly [facility] Start: 07-03-2014 Sex Male (finding) [employer] Start: 07-19-2024 Alcoholic beverage intake Ex-drinker (finding) [facility] Work Phone: Medical Equipment Procedure Code Equipment Code Equipment Origin al Text Equipment Identifier Dates Acp Plate 40mm 2-Level [id number] Start: 02-24-2024 Viacell [id number] Start: 02-24-2024 Geovani Wisdom , 14x16, 7mm, 7 Degree - Sna - [id number] Start: 02-24-2024 Spacer, Abbieron C , 14x16, 7mm, 7 Degree - Sna - [id number] Start: 02-24-2024 Screw, Acp, Self Drill, 3.5 X 15mm, Variable - Sna - [id number] Start: 02-24-2024 Functional Status Date Assessment Result Facility 12-08-2024 [facility] Work Phone: 12-08-2024 Functional status [facility] Work Phone: 12-08-2024 [facility] suicide s everity rating scale screener - recent [C-SSRS] [facility] Work Phone: 12-08-2024 [facility] 12-08-2024 Functional status [facility] Mental Status Date Assessment Result Facility 10-23-2024 Cognitive function Voice/Name [facility] Work Phone: 06-16-2022 Cognitive function Voice/Name [facility] Work Phone: Clinical Notes 11-09-2022 to 11-11-2024 Nighat Griffin MD - 10/31/2024 10:00 AM EDTPatient Instructions Note Date & Type Note Facility 11-11-2024 Discharge summary [facility] 10-31-2024 History of Present illness Narrative Formatting of this note is different fro m the original. Chief complaint: Cervical myelopathy sequela follow-up Dear [...] to proceed with the left AFO from [facility], he has been fitted and is pending [...] and L5-S1, with vacuum phenomenon. There is tovc-gg-rllzgouk bilateral neural foraminal stenosis at these levels. [...] Difficult to do ADLs SH: Lives in: [place] Lives with: Mom Occupation: None, applying for [employer] Tobacco: Daily smoker, half pack per day [...] 5/5 finger flexors, 5-/5 interossei, and 5/5 leather currier LE strength - 4/5 on the left [...] grammar and/or spelling documented in this encounter [facility] Work Phone: 08-19-2025 Instructions Nighat Griffin MD - 10/31/2024 10:00 [...] -Follow-up 2-3 months documented in this encounter [facility] Work Phone: 10-23-2024 Discharge summary [facility] 10-23-2024 Discharge summary Note Date/Time October 23, 2024 4:03pm [facility] Medical Records Department [address] [place] [address] Emergency Department Summary 10/23/24 MR#: [id number] Acct: [id number] Name: HARMAN JAMIL Rep #:[id number] : 1980 44 From: Caleb Smith DO PCP: Dr. Josafat Leonard DO Status:REG ER Location: ED ADDENDUM by Dr. Caleb Smith DO on 10/23/24 at 1603 Patient's EKG reviewed and showed sinus rhythm with a rate of 70 bpm. QTc was noted to be 437 with a normal [place] interval 144. 10/23/24 1603<Electronically signed by Caleb [...] brought him in here to be evaluated. [facility] Medical History ADHD Sciatica Cervical radiculopathy Home [...] states that earlier today he went to [place] for a psych eval and he states that this appointment went well. He states that he stopped at a friend's house and then was on his way to see his mother and he notes that he ended up here and is not sure what happened. He denies any history of drug abuse. Patient's fcqnx-pm-hdac glucose was noted to be 105. Patient [...] DO [Primary Care Provider] - Print Language: Colombian Disposition Disposition: Against Medical Advice What to do if you have Problems For any increased pain, shortness of breath, bleeding, nausea or vomiting, chestpain, or any unexpected problems, contact your Primary Care Provider. Call [facility] ([phone]) or report to the closest Emergency Room. Call 911 if necessary. 10/23/24 1602 <Electronically signed by Caleb Smith DO> Cosigner Signature (if applicable): CC: Dr. Josafat Leonard DO ~ Signed [facility] Work Phone: 1(784) 407-705507-21-2025 History of Present illness Narrative* Nighat Griffin [...] and L5-S1, with vacuum phenomenon. There is shae-jf-jaallubf bilateral neural foraminal stenosis at these levels. [...] Difficult to do ADLs SH: Lives in: [place] Lives with: Mom Occupation: None, applying for [...] 5/5 finger flexors, 5-/5 interossei, and 5/5 leather currier LE strength - 4/5 on the left [...] 6. Ergonomics: -Left ankle foot orthotic from [employer] 7. Return to clinic for follow-up with [...] referring provider, Dr. Dixon documented in this [facility] Work Phone: 1(481) 358-431107-21-2025 Instructions* Patient Instructions* Nighat Griffin MD - [...] provided -Get a left ankle-foot orthotic from [employer] -Lumbar MRI ordered -Do your Best to completely stop smoking cigarettes -Follow-up after MRI documented in this [facility] Work Phone: 1(294) 580-833405-12-2025 History and physical note* Suraj Meyers MD [...] examinationpreserved. NEURO: Alert and oriented X 3 CUSTOMER SERVICE RECEPTIONIST normal as tested without focal neurological deficit [...] 06/06/2024 11:08 am INDICATION: Signs/Symptoms:Pain. ACCESSION NUMBER(S): [id number] ORDERING CLINICIAN: SHA FOSTER FINDINGS: AP lateral [...] Sha Foster 06/06/2024 3:56 PM Dictation workstation: [id number] CT lumbar spine wo IV contrast Result [...] and L5-S1, with vacuum phenomenon. There is rghs-bi-kfxxfntk bilateral neural foraminal stenosis at these levels. [...] 10:52 am INDICATION: Signs/Symptoms:neck pain. ACCESSION NUMBER(S): [id number] ORDERING CLINICIAN: SHA FOSTERFINDINGS: AP lateral x-rays [...] Sha Foster 03/07/2024 11:17 AM Dictation workstation: [id number] MR cervical spine wo IV contrast Result Date: 02/18/2024 Interpreted By: Luana Lawson and Lawrence Austen STUDY: MR CERVICAL SPINE WO IV CONTRAST; MR LUMBAR SPINE W AND WO IV CONTRAST; MR THORACIC SPINE WO IV CONTRAST; 02/17/2024 7:08 pm; 02/17/2024 7:09 pm INDICATION: Signs/Symptoms:pain. ,M54.10 Radiculopathy, site unspecified COMPARISON: Twhrrlquwk66/07/2018, MRI 08/17/2016. ACCESSION NUMBER(S): [id number]; [id number]; [id number] ORDERING CLINICIAN: SHA FOSTER TECHNIQUE: Sagittal T1, [...] Luana Lawson 02/18/2024 11:18 AM Dictation workstation: [id number] MR thoracic spine wo IV contrast Result Date: 02/18/2024 Interpreted By: Luana Lawson and Lawrence Austen STUDY: MR CERVICAL SPINE WO IV CONTRAST; MR LUMBAR SPINE W AND WO IV CONTRAST; MR THORACIC SPINE WO IV CONTRAST; 02/17/2024 7:08 pm; 02/17/2024 7:09 pm INDICATION: Signs/Symptoms:pain. ,M54.10 Radiculopathy, site unspecified COMPARISON: Cmklypukak64/07/2018, MRI 08/17/2016. ACCESSION NUMBER(S): [id number]; [id number]; [id number] ORDERING CLINICIAN: SHA FOSTER TECHNIQUE: Sagittal T1, [...] Luana Lawson 02/18/2024 11:18 AM Dictation workstation: [id number] MR lumbar spine w and wo IV contrast Result Date: 02/18/2024 Interpreted By: Luana Lawson and Lawrence Usama STUDY: MR CERVICAL SPINE WO IV CONTRAST; MR LUMBAR SPINE W AND WO IV CONTRAST; MR THORACIC SPINE WO IV CONTRAST; 02/17/2024 7:08 pm; 02/17/2024 7:09 pm INDICATION: Signs/Symptoms:pain. ,M54.10 Radiculopathy, site unspecified COMPARISON: Shwperthoq18/07/2018, MRI 08/17/2016. ACCESSION NUMBER(S): [id number]; [id number]; [id number] ORDERING CLINICIAN: SHA FOSTER TECHNIQUE: Sagittal T1, [...] Luana Lawson 02/18/2024 11:18 AM Dictation workstation: [id number] XR lumbar spine 2-3 views Result Date: [...] visit with any questions or concerns at [phone] M-F 8-4 pm Suraj Meyers M.D. Charity Fundraiser , Division of Pain Medicine [facility] Interior Surface Insulation Worker of Anesthesiology and Pain Medicine [facility] [place] [address] Office: [phone] Suraj Meyers MD [1] Past Medical History: Diagnosis Date Contusion of chest wall 06/28/2024 Disease due to severe acute respiratory syndrome coronavirus 2 (SARS-CoV-2) 06/28/2024 Fall 06/28/2024 Fever 06/28/2024 Marijuana use 09/04/2014 Per tox screen 08/2014: Patient informed he will receive no further controlled medication scripts from physicians at [facility] Also violation of signed controlled substance agreement. [...] history on file. [4] No Known Allergies [facility] Work Phone: 1(108) 289-105705-12-2025 History and physical note* Suraj Meyers MD [...] examinationpreserved. NEURO: Alert and oriented X 3 CUSTOMER SERVICE RECEPTIONIST normal as tested without focal neurological deficit [...] 06/06/2024 11:08 am INDICATION: Signs/Symptoms:Pain. ACCESSION NUMBER(S): [id number] ORDERING CLINICIAN: SHA FOSTER FINDINGS: AP lateral [...] Sha Foster 06/06/2024 3:56 PM Dictation workstation: [id number] CT lumbar spine wo IV contrast Result [...] and L5-S1, with vacuum phenomenon. There is bote-xi-yanbltle bilateral neural foraminal stenosis at these levels. [...] 10:52 am INDICATION: Signs/Symptoms:neck pain. ACCESSION NUMBER(S): [id number] ORDERING CLINICIAN: SHA FOSTERFINDINGS: AP lateral x-rays [...] Sha Foster 03/07/2024 11:17 AM Dictation workstation: [id number] MR cervical spine wo IV contrast Result Date: 02/18/2024 Interpreted By: Luana Lawson and Lawrence Austen STUDY: MR CERVICAL SPINE WO IV CONTRAST; MR LUMBAR SPINE W AND WO IV CONTRAST; MR THORACIC SPINE WO IV CONTRAST; 02/17/2024 7:08 pm; 02/17/2024 7:09 pm INDICATION: Signs/Symptoms:pain. ,M54.10 Radiculopathy, site unspecified COMPARISON: Iqdwwfyuph44/07/2018, MRI 08/17/2016. ACCESSION NUMBER(S): [id number]; [id number]; [id number] ORDERING CLINICIAN: SHA FOSTER TECHNIQUE: Sagittal T1, [...] Luana Lawson 02/18/2024 11:18 AM Dictation workstation: [id number] MR thoracic spine wo IV contrast Result Date: 02/18/2024 Interpreted By: Luana Lawson and Lawrence Usama STUDY: MR CERVICAL SPINE WO IV CONTRAST; MR LUMBAR SPINE W AND WO IV CONTRAST; MR THORACIC SPINE WO IV CONTRAST; 02/17/2024 7:08 pm; 02/17/2024 7:09 pm INDICATION: Signs/Symptoms:pain. ,M54.10 Radiculopathy, site unspecified COMPARISON: Baoeatvyzn15/07/2018, MRI 08/17/2016. ACCESSION NUMBER(S): [id number]; [id number]; [id number] ORDERING CLINICIAN: SHA FOSTER TECHNIQUE: Sagittal T1, [...] Luana Lawson 02/18/2024 11:18 AM Dictation workstation: [id number] MR lumbar spine w and wo IV contrast Result Date: 02/18/2024 Interpreted By: Luana Lawson, and Antonio Forrester STUDY: MR CERVICAL SPINE WO IV CONTRAST; MR LUMBAR SPINE W AND WO IV CONTRAST; MR THORACIC SPINE WO IV CONTRAST; 02/17/2024 7:08 pm; 02/17/2024 7:09 pm INDICATION: Signs/Symptoms:pain. ,M54.10 Radiculopathy, site unspecified COMPARISON: Uezjnbagcj79/07/2018, MRI 08/17/2016. ACCESSION NUMBER(S): [id number]; [id number]; [id number] ORDERING CLINICIAN: SHA FOSTER TECHNIQUE: Sagittal T1, [...] Luana Lawson 02/18/2024 11:18 AM Dictation workstation: [id number] XR lumbar spine 2-3 views Result Date: [...] visit with any questions or concerns at [phone] M-F 8-4 pm Abdallah Issam Kabbara , M.D. Charity Fundraiser , Division of Pain Medicine [facility] Interior Surface Insulation Worker of Anesthesiology and Pain Medicine [facility] [address] [place] [id number] Office: [phone] Suraj Meyers MD [1] Past Medical History: Diagnosis Date Contusion of chest wall 06/28/2024 Disease due to severe acute respiratory syndrome coronavirus 2 (SARS-CoV-2) 06/28/2024 Fall 06/28/2024 Fever 06/28/2024 Marijuana use 09/04/2014 Per tox screen 08/2014: Patient informed he will receive no further controlled medication scripts from physicians at [facility] Also violation of signed controlled substance agreement. [...] [4] No Known [facility]ies [facility] Phone: 1(205) 654-954705-12-2025 History of Present illness Narrative* Deandra May [...] Objective Physical Exam Assessment/Plan documented in this [facility] Work Phone: 1(537) 145-193005-07-2025 History of Present illness Narrative* Radha Boaz Gargdeedee, - 07/19/2024 10:50 AM EDT Subjective Harman Jamil is a right handed 43 y.o. year old male who presents with Back Pain (NPV, nicolad- Dr. Foster/sciatica), Neck Pain (NPV, rmd- Dr. Foster), Extremity Weakness (NPV, nicolad- Dr. Foster), and Numbness (NPV, d- Dr. Foster/From torso down/Can't feel warm or [...] There is no tremor. On coordination testing, ixuekf-kact-kaiyhv testing are done well bilaterally. Sensory examination [...] medication scripts from physicians at [facility] Also violation of signed controlled substance agreement. [...] Date TONSILLECTOMY 09/06/2015 Tonsillectomy documented in this [facility] Work Phone: 1(357) 538-917505-07-2025 Instructions* Patient Instructions* Radha Dixon DO - [...] while taking this medication. [facility] Phone: 1(444) 167-984905-02-2025 Hospital Discharge instructions* Discharge Instr - DONNIE* [...] Contact Information Primary Emergency Contact: Sis Delgadillo [facility] Relation: Other Past Surgical History: Past [...] MENTAL STATUS:} IV Access: { DONNIE IV ACCESS:894760948} Nursing Mobility/ADLs: Walking {CHP DME ADLs:310611420} Transfer {CHP DME ADLs:445491651} Bathing {CHP DME ADLs:388170100} Dressing {CHP DME ADLs:487953025} Toileting {CHP DME ADLs:538833360} Feeding {CHP DME ADLs:274552009} Currency Exchange Specialist {P DME ADLs:375468924} Med Delivery { DONNIE MED Delivery:533692498} Wound Care Documentation and Therapy: Elimination: Continence: Bowel: {YES / NO:} Bladder: {YES / NO:} Urinary Catheter: {Urinary Catheter:142419813} Colostomy/Ileostomy/Ileal Conduit: {YES / NO:} Date of Last BM: No intake or output data in the 24 hours ending 07/14/24 0020 No intake/output data recorded. Safety Concerns: { DONNIE Safety Concerns:881168519} Impairments/Disabilities: { DONNIE Impairments/Disabilities:754936142} Nutrition Therapy: Current Nutrition Therapy: { DONNIE Diet List:903942308} Routes of Feeding: {[facility] DME Other Feedings:119705725} Liquids: {[facility] liquid thickness:27866} Daily Fluid Restriction: {CHP DME Yes amt example:913624071} Last Modified Barium Swallow with Video (Video Swallowing Test): {Done Not Done Date:} Treatments at the Time of Hospital Discharge: Respiratory Treatments: Oxygen Therapy: {Therapy; copd oxygen:80590} Ventilator: {[facility] Vent List:898515033} Rehab Therapies: {THERAPEUTIC INTERVENTION:8274090169} Weight Bearing Status/Restrictions: {[facility] Weight Bearin} Other Medical Equipment (for information only, NOT a DME order): {EQUIPMENT:336022458} Other Treatments: Patient's personal belongings (please select all that are sent with patient): {[facility] DME Belongings:258312312} RN SIGNATURE: {Esignature:584463066} CASE MANAGEMENT/SOCIAL WORK SECTION Inpatient Status Date: Readmission Risk Assessment Score: [facility] RISK OF UNPLANNED READMISSION 2.0 0 Total Score Discharging to Facility/ Agency Name: Address: Phone: Fax: Dialysis Facility (if applicable) Name: Address: Dialysis Schedule: Phone: Fax: Undercutter/Monitor Tech signature: {Esignature:307765762} PHYSICIAN SECTION Prognosis: {Prognosis:6204009169} Condition at Discharge: { Patient Condition:756464001} Rehab Potential (if transferring to Rehab): {Prognosis:4242126150} Recommended Labs or Other Treatments After Discharge: Physician Certification: I certify the above information and transfer of Harman Jamil is necessary for the continuing treatment of the diagnosis listed and that he requires {Admit to Appropriate Level of Care:82703} for {GREATER/LESS:771349443} 30 days. Update Admission H&P: {CHP DME Changes in HandP:176566050} PHYSICIAN SIGNATURE: {Esignature:887100346} * Attachments The following attachments cannot be sent through Care Everywhere. * Back: Strain (Colombian) [facility] History of Present illness Narrative* Josafat Leonard, [...] symptoms are better managed. [facility] Work Phone: 1([phone]) 315-591204-03-2025 Hospital Discharge instructions* Discharge Instructions* Lisa Polanco [...] be sent through Care Everywhere. * Sciatica (Colombian) * Back Pain (Colombian) documented in this [facility]Bon [facility] History of Present illness Narrative* Sha Foster [...] [facility] For complete plan and/or surgical details, please refer to Dr. Foster's portion of this split dictation. -Dev Martel PA-C In a eals-ra-voul encounter, I performed a history and physical [...] Foster MD Orthopedic surgery [facility] Work Phone: [phone]) 115-221903-07-2025 Hospital Discharge instructions* Discharge Instructions* Nayan Hale PA-C - 05/19/2024 3:44 AM EST Follow closely with your primary spinal surgeon for recheck. Return sooner for new or worsening symptoms. You can attempt to pharmacy picking technician a walker with the provided prescription at a local DME store * Attachments The following attachments cannot be sent through Care Everywhere. * Back Pain (Colombian) * Fall Prevention (Colombian) documented in this encounterBon [facility] History of Present illness Narrative* Dev Martel [...] 2+ and symmetric bilaterally. Garner positive bilaterally. Household Chores strength symmetric and strong. Cervical incision is [...] split dictation. -Dev Martel PA-C In a aits-lo-gcjg encounter, I performed a history and physical [...] Foster MD Orthopedic surgery documented in this [facility] Work Phone: 1(281) 946-137612-14-2024 Plan of care note* Care Plan - [...] goals for the shift include Pain management [facility]12-14-2024 Miscellaneous Notes* Care Plan - Felipe [...] M.D. Asst.: None Dev LeosThe physician medical claims assistant was present through the entire case. Given thenature of the disease process and the procedure to be performed a skilled surgical territory manager was necessary during the case. The medical claims assistant was necessary in order to hold retractors and directly assistin the operation. A board certified behavioral analyst was at the back table managing instruments [...] Operative implants: NuVasive ACP plate and screws. [employer] 3D printing cages filled with via cell [...] anterior two thirds of the disc. A Lambert pinretractor was then placed to provide distraction [...] these barriers include none. documented in this [facility] Work Phone: [phone]) 892-282212-14-2024 Plan of care note* Care Plan - [...] goals for the shift include Pain management [facility] Work Phone: [phone]) 307-300012-14-2024 Hospital course Narrative* FREDO Ling - 02/26/2024 [...] 2024 in wound clinic documented in this [facility] Work Phone: 1(313) 939-503712-14-2024 History of Present illness Narrative* FREDO Ling [...] 450 x10*3/uL Basic metabolic panel Collection Time: 12/14/24 3:50 AM Result Value Ref Range Glucose [...] / Treatment Patient Name: Harman Jamil Department: [facility] Room: 602/602-A Today's Date: 02/25/2024 Time Calculation Start Time: [...] C5-6/C6-7 decompression /fusion 02/24/24. Referred By: OT/PT Deart 02/23 Past Medical [...] Comments: BUE AROM WFL; strength >3/5; functional leather currier 4/5. Perception: Inattention/Neglect: Appears intact Coordination: Movements are Fluid and Coordinated: Yes Hand Function: Gross Grasp: Functional Coordination: Functional Outcome Measures:[facility] Daily Activity Putting on and taking [...] goal: to go home * Jewels Nolan, AIR QUALITY CHEMIST-PHARMACY TECHNICIAN INFUSION - 02/25/2024 12:00 PM EST Harman Jamil [...] decompression and fusion - direct admission from [facility] in [place] - Progressive neurovascular changes noted per primary [...] to follow up with pulmonology outpatient - HARI and MAO started for now - pending cultures and [...] note, this documentation is completed using the ProteoSense Dictation system (voice recognition software). There may [...] S/P C5-6/C6-7 decompression /fusion Referred By: OT/PT Dearth 02/23 Past Medical [...] LLE : Within Functional Limits Outcome Measures: [facility] Basic Mobility Turning from your back [...] Foster. Pt has cervical brace on. Per PHARMACY TECHNICIAN INFUSION anticipate Wednesday DC on Oral Bactrim x 10 days, follow up with Dr. Nichols on Wednesday. Pt had bedside I & D for 3 left axillary abscesses which is currently packed, ordereddaily wound dressings. Pt refuses HHC, states can not have HHC at his nieces in [facility] [facility], and plans to go to his moms in [place] for only a couple days and come back to [place]. Pt declines any needs. PHARMACY TECHNICIAN INFUSION notified and will cancel home care orders. [facility] has made pt appt with Dr. Nichols Wednesday morning at 9:30 so pt can call insurance [employer] today to set up transportation for Wednesday [...] required documents and is reaching out to senthil elliott for transportation. * Sowmya Hernandez PharmD - [...] Ling 02/25/2024 7:41 AM * Lennie Mooney [facility] - 02/25/2024 6:29 [...] on 02/26/2024 Exposure target: AUC24 (range)400-600 mg/L.hr DQG20-77: 381 mg/L.hr AUC24,ss: 409 mg/L.hr Probability of [...] palpation Skin: no rashes, no diaphoresis Neuro: CUSTOMER SERVICE RECEPTIONIST intact Affect appropriate and patient is interactive [...] and Zosyn, Cultures pending, anticipating PICC and lobsterman antibiotics. Pt states currently living in basement of niece's home in [facility] [place] [facility] in, has had recent problems [...] Continue current dressing changes * Jewels Nolan, AIR QUALITY CHEMIST-PHARMACY TECHNICIAN INFUSION - 02/23/2024 2:02 PM EST Harman Jamil [...] major adverse cardiovascular events including cardiac arrest, SD, arrhythmias, and/or even . Patient appears medically [...] to Left armpit. COMPARISON: None. ACCESSION NUMBER(S): [id number] ORDERING CLINICIAN: HALEY YATES TECHNIQUE: Contiguous axial [...] Phillip Mojica 02/22/2024 11:09 PM Dictation workstation: [id number] Physical Exam Constitutional: Well developed, awake/alert/oriented x3, [...] decompression and fusion - direct admission from [facility] in [place] - Progressive neurovascular changes noted per primary [...] note, this documentation is completed using the ProteoSense Dictation system (voice recognition software). There may be spelling and/or grammatical errors that were not corrected prior to final submission. FREDO Hairston * Adore Garg RN - 02/23/2024 10:39 AM EST 02/23/24 1037 Discharge Planning Living Arrangements Family members (staying at nieces home) Support Systems Family members Assistance Needed none, ASSOCIATE FINANCIAL REPRESENTATIVE pt states mostly ind ADLS, family assistance with IADLS, pt doesn't drive or work, 1 recent fall Type of Residence Private residence (living in basement at niece's home in [place], [place]) Number of Stairs to Enter Residence [...] were you homeless or living in a alf (including now)? N Transportation Needs In the [...] Zosyn, Cultures pending, anticipating P ICC and lobsterman antibiotics. Pt states currently living in basement of niece's home in [place], has had recent problems with legs and [...] on 02/23/2024 Exposure target: AUC24 (range)400-600 mg/L.hr SZC13-68: 448 mg/L.hr AUC24,ss: 487 mg/L.hr Probability of [...] toxicity. Korina Lopez PharmD [facility] Phone: [phone]) 482-533512-14-2024 Plan of care note* Care Plan - [...] level of nervousness and agitation this morning. [facility]12-13-2024 Plan of care note* Care Plan - [...] goals for the shift include Pain management [facility] Work Phone: [phone] Plan of care note* Care Plan - Haley Laboy RN - 02/24/2024 11:05 PM EST The patient's goals for the shift include rest and comfort The clinical goals for the shift include pain management Over the shift, the patient did make progress toward the following goals. Barriers to progression include none. Recommendations to address these barriers include none. [facility] Work Phone: [phone] 392-418212-12-2024 Note* Op Note - Sha Foster MD [...] M.D. Asst.: None Dev LeosThe physician medical claims assistant was present through the entire case. Given thenature of the disease process and the procedure to be performed a skilled surgical territory manager was necessary during the case. The medical claims assistant was necessary in order to hold retractors and directly assistin the operation. A board certified behavioral analyst was at the back table managing instruments [...] anterior two thirds of the disc. A Lambert pinretractor was then placed to provide distraction [...] please do not hesitate to contact me. [facility] Work Phone: [phone] Plan of care note* Care Plan - Haley Laboy RN - 02/24/2024 1:52 AM EST The patient's goals for the shift include rest and comfort The clinical goals for the shift include pain management Over the shift, the patient did make progress toward the following goals. Barriers to progression include none. Recommendations to address these barriers include none. [facility] Work Phone: [phone]) [phone] History and physical note* Sha Foster MD [...] this with one of my colleagues in [place] and we both agree that the neurologic [...] please do not hesitate to contact me. [facility] Work Phone: [phone]) 610-299712-11-2024 History and physical note* Sha Foster MD [...] this with one of my colleagues in [place] and we both agree that the neurologic [...] hesitate to contact me. documented in this [facility] Work Phone: [phone] Plan of care note* Care Plan - [...] goals for the shift include Pain management [facility] Work Phone: [phone] Hospital Discharge instructions* Discharge Instructions* FREDO Hairston - 02/23/2024 8:41 AM EST ##### Please follow up with your PCP regarding these nodules############ Follow up in 1 week. May need to follow up with strategic solutions consultant as well. Will send you information infollow [...] sent through Care Everywhere. * Hidradenitis suppurativa (Colombian) documented in this [facility] Work Phone: [phone]) 737-984112-11-2024 Consult note* Jeff Nichols MD - 02/23/2024 [...] MD *These notes are being done using ProteoSense voice recognition technology and may include unintended errors with respect to translation of words, typographical errors or grammar errors which may not havebeen identified prior to finalization of the chart note. [facility] Work Phone: [phone] Consult note* Jeff Nichols MD - 02/23/2024 [...] MD *These notes are being done using ProteoSense voice recognition technology and may include unintended [...] on 02/23/2024 Exposure target: AUC24 (range)400-600 mg/L.hr NKW78-65: 471 mg/L.hr AUC24,ss: 581 mg/L.hr Probability of [...] palpation Skin: no rashes, no diaphoresis Neuro: CUSTOMER SERVICE RECEPTIONIST intact Affect appropriate and patient is interactive [...] therace variable for the IDMS-Traceable creatinine methods. https://jasn.asnjournals.org/content/early//ASN.7954770361 Calcium 02/22/2024 9.2 8.6 - 10.3 mg/dL [...] and tingling to BLE, palpable pulses, equal leather currier strengths of upper extremities. Last Recorded Vitals BP 147/89 (Patient Position: Sitting) Pulse 98 Temp 35.6 C (96.1 F) Resp 18 SpO2 93% Relevant Results CT w contrast ordered - results pending BC x2 Wound/tissue culture ordered ID consulted Plastic Surgery consulted Remaining lab work is unremarkable Assessment/Plan C5-6 and C6-7 anterior cervical decompression and fusion - direct admission from [facility] in [place] - Progressive neurovascular changes noted per primary [...] - declined FREDO Syed [facility] Work Phone: [phone] Plan of care note* Care Plan - Haley Laboy RN - 02/23/2024 2:39 AM EST The patient's goals for the shift include rest and comfort The clinical goals for the shift include pain management Over the shift, the patient did make progress toward the following goals. Barriers to progression include none. Recommendations to address these barriers include none. [facility] Work Phone: [phone] 194-900412-11-2024 Plan of care note* Care Plan - Haley Laboy RN - 02/23/2024 1:58 AM EST The patient's goals for the shift include rest and comfort The clinical goals for the shift include pain management Over the shift, the patient did make progress toward the following goals. Barriers to progression include none. Recommendations to address these barriers include none. [facility] Work Phone: [phone] Consult note* Param Cifuentes, SvetlanaD - 02/23/2024 12:30 AM ESTAssociated Order(s): PHARMACY [...] on 02/23/2024 Exposure target: AUC24 (range)400-600 mg/L.hr SAB94-68: 471 mg/L.hr AUC24,ss: 581 mg/L.hr Probability of [...] and signs/symptoms of toxicity. PARAM CIFUENTES PharmD [facility]12-10-2024 Consult note* Karli Pena, DO - 02/22/2024 9:24 PM [...] palpation Skin: no rashes, no diaphoresis Neuro: CUSTOMER SERVICE RECEPTIONIST intact Affect appropriate and patient is interactive [...] therace variable for the IDMS-Traceable creatinine methods. https://jasn.asnjournals.org/content/early/ASN.8711305649 Calcium 02/22/2024 9.2 8.6 - 10.3 mg/dL [...] visit with the patient > 60 min [facility] Work Phone: [phone] 819-579712-10-2024 Consult note* FREDO Syed - 02/22/2024 9:09 PM EST Consults Reason [...] and tingling to BLE, palpable pulses, equal leather currier strengths of upper extremities. Last Recorded Vitals BP 147/89 (Patient Position: Sitting) Pulse 98 Temp 35.6 C (96.1 F) Resp 18 SpO2 93% Relevant Results CT w contrast ordered - results pending BC x2 Wound/tissue culture ordered ID consulted Plastic Surgery consulted Remaining lab work is unremarkable Assessment/Plan C5-6 and C6-7 anterior cervical decompression and fusion - direct admission from [facility] in [place] - Progressive neurovascular changes noted per primary [...] - offered replacement - declined FREDO Syed [facility] Work Phone: [phone] History of Present illness Narrative* Sha Foster [...] cervical decompression and fusion. documented in this [facility] Work Phone: [phone] History of Present illness Narrative* Sha Foster [...] he walked 5 miles the other day 2-/ at 1 point took a 2-hour rest [...] try to assess that. documented in this [facility] Work Phone: [phone] Hospital Discharge instructions* Discharge Instructions* Nayan Hale PA-C - 02/08/2024 11:23 PM EST Please follow closely with your primary team. Return immediately for new or worsening symptoms. * Attachments The following attachments cannot be sent through Care Everywhere. * Back Pain (Colombian) [facility] History of Present illness Narrative* Sha Foster [...] as if he does. documented in this [facility] Work Phone: [phone] Hospital Discharge instructions* Discharge Instructions* Zuleyka Bryant, DO - 01/29/2024 9:15 PM EST Call [...] sent through Care Everywhere. * Fecal Incontinence (Colombian) * Low Back Pain: Exercises (Colombian) documented in this encounterBon [facility] History of Present illness Narrative* Sha Foster MD - 12/14/2023 11:00 AM EDT Harman Jamil is a 43 y.o. male who presents for follow-up for low back pain. HPI: 43-year-old gentleman here for follow-up low back pain. [facility]. He did not get into any [...] the lumbar spine from August 27 at [facility] was reviewed today. Assessment: 43-year-old gentleman here for [facility] follow-up low back pain and leg [...] buckle. He did have a CT at [facility] of his lumbar spine that showed [...] split dictation. -Dev Martel PA-C In a jgtn-lk-lxca encounter, I performed a history and physical [...] Foster MD Orthopedic surgery [facility] Work Phone: [phone] Hospital Discharge instructions* Discharge Instructions* Aarti Stokes APRN - CNP - 12/12/2023 7:08 PM EDT Continue follow with your orthopedic doctor on December for pain management recommended for chronic back pain. * Attachments The following attachments cannot be sent through Care Everywhere. * Back Pain (Colombian) [facility] History of Present illness Narrative* Sha Foster [...] anything for this recently. He is taking mpyg-xcl-mghotyw anti-inflammatories which are not helping. Plan: For complete plan and/or surgical details, please refer to Dr. Foster's portion of this split dictation. In a mddj-my-afpk encounter, I performed a history and physical [...] back after the MRI. documented in this [facility] Work Phone: [phone]) 618-587008-28-2023 Discharge summary Author Gerson Perez [facility] November 09, 2022 3:03pm Note Date/Time November 09, 2022 2: 54pm [facility] Medical Records Department [address] [place] [address] Emergency Department Summary 11/09/22 MR#: [id number] Acct: [id number] Name: HARMAN JAMIL Rep #:[id number] : [...] that those symptoms are not there now. [facility] Medical History ADHD Cervical radiculopathy Sciatica Home [...] your Primary Care Provider. Call [facility] ([phone]) or report to the closest Emergency Room. Call 911 if necessary. 11/09/22 1503 <Electronically signed by Gerson Perez MD> Cosigner Signature (if applicable): CC: Dr. Josafat [place] DO ~ Signed [facility] Work Phone: Discharge summary Author Eduardo Mcdonald [facility] Note Date/Time November 11, 2024 1: 58am [facility] Medical Records Department [address] [place] [address] Emergency Department Summary 11/11/24 MR#: [id number] Acct: [id number] Name: HARMAN JAMIL Rep #:[id number] : 1980 44 From: Eduardo kraft DO PCP: Dr. Josafat [place] DO Status:REG ER Location: ED HPI History of Present Illness Chief Complaint: Back Narrative Narrative: Chief complaint and HPI: Acute on chronic lumbar back pain. 44-year-old male with past medical history of cervical radiculopathy, chronic lumbar back pain with known disc herniation, sciatica presents for evaluation on acute on chroniclumbar back pain. Patient states he follows with orthopedic physician. He is currently in physical therapy. Patient states that he has baseline numbness/tingling and weakness in his left lower extremity from his chronic backpain. States is not any worse. States this evening he was helping his mother move some heavy boxes when he feels like he aggravated his chronic back pain. States that the back pain is mostly located on the left side and radiates into his buttocks. Denies any new numbness or weakness. Has neurogenic bladder but nothing new with bowel and bladder issues. Denies any fever or chills. Review of systems: See HPI Medications: As listed on the chart Allergies: As listed on the chart PFSH: Per chart Vital signs: As listed on the chart. Reviewed. Physical exam: Gen: A&O x3, NAD Head: Normocephalic, atraumatic Eyes: No sclera icterus, conjunctiva clear, PERRL ENT: Moist mucous membranes Neck: Trachea midline, No JVD, full range of motion CV: RRR, no murmurs Resp: Lungs CTA BL, no w/r/c GI: Abd soft, non-distended, non-tender, no r/r/g Musc: Full ROM, no deformity, no midline spinal tenderness, no bony step-offs, no signs of trauma or infection, patient has tenderness to palpation of the leftparaspinal musculature of the lumbar spine-muscles are tense, strength equal in all extremities except mildly decreased in the left lower extremity-patient states this is his baseline, wearing left leg brace due to chronic left foot drop, DP/PT pulses +2 bilaterally, compartments soft Skin: Warm, dry Neuro: Alert, oriented, grossly intact, sensation intact Psych: Cooperative, appropriate mood and affect [facility] Medical History ADHD Sciatica Cervical radiculopathy Home Medications ?Medication ?Instructions ?Recorded ?Last Taken ?Type gabapentin 300 mg capsule 600 mg PO Q8H 10/22/24 Unkno wn History baclofen 10 mg tablet 20 mg PO Q8H 10/23/24 Unknow n History cholecalciferol (vitamin D3) 125 125 mcg PO DAILY 10/13 04/08 Unknown History mcg (5,000 unit) capsule chlorzoxazone 500 mg tablet 500 mg PO 4X/DAY PRN PRN m uscle 11/11/24 Unknown History spasm Allergy/AdvReac Type Severity Reaction Status Date / Time No Known Allergies Allergy Verified 11/10/24 23:57 Surgical History Hx of tonsillectomy Previous back surgery Social History household members: none Smoking Status: Current every day smoker tobacco type: cigarettes alcohol intake: current alcohol intake frequency: other substance use type: marijuana EXAM Physical Exam Const Vital Signs: 11/10/24 23:53 Temperature 98.1 F Temperature Source Oral Pulse Rate 72 Respiratory Rate 18 Blood Pressure 135/92 H Blood Pressure Mean 106 Pulse Ox 100 Oxygen Delivery Method Room Air MDM MDM MDM Narrative Medical decision making narrative: 44-year-old male with past medical history of cervical radiculopathy, chronic lumbar back pain with known disc herniation, sciatica presents for evaluation onacute on chronic lumbar back pain. Patient states he follows with orthopedic physician. He is currently in physical therapy. Patient states that he has baseline numbness/tingling and weakness in his left lower extremity from his chronic back pain. States is not any worse. States this evening he was helpinghis mother move some heavy boxes when he feels like he aggravated his chronic back pain. States that the back pain is mostly located on the left side and radiates into his buttocks. Denies any new numbness or weakness. Has neurogenic bladder but nothing new with bowel and bladder issues. There has been no trauma or anything to suggest infectious etiology. There is no new neurological findings to suggest any acute cauda equina syndrome or acute radiculopathy. At this point in time I do not feel any emergent imaging such asx-rays or MRI are warranted. Patient in agreement. Suspect this is more acute on chronic back pain versus myofascial spasm. Patient's pain will be treated with IM Toradol and p.o. Valium. He did not drive today. Patient stable to discharge home. Follow-up with orthopedic physician. Return precautions explained. Continue home medications. He confirmed understanding of the plan. Impression: 1. Acute on chronic back pain 2. History of sciatica Discharge Plan Triage Chief Complaint: Back ED Provider: Eduardo Mcdonald Dx/Rx/DC Orders Prescriptions: No Action baclofen 10 mg tablet 20 mg PO Q8H cholecalciferol (vitamin D3) 125 mcg (5,000 unit) capsule 125 mcg PO DAILY gabapentin 300 mg capsule 600 mg PO Q8H chlorzoxazone 500 mg tablet 500 mg PO 4X/DAY PRN PRN (Reason: muscle spasm) Primary Care Provider: Josafat Leonard Referrals: Josafat Leonard DO [Primary Care Provider] - Print Language: Colombian What to do if you have Problems For any increased pain, shortness of breath, bleeding, nausea or vomiting, chestpain, or any unexpected problems, contact your Primary Care Provider. Call [facility] ([phone]) or report to the closest Emergency Room. Call 911 if necessary. 11/11/24 0158 <Electronically signed by Eduardo Mcdonald DO> Cosigner Signature (if applicable): CC: Dr. Josafat [place] DO ~ Signed [facility] Work Phone: Evalulzfwf noteNo assessment information available [facility] Work Phone: Evaluation note* Diagnosis Lumbar pain- Primary Lumbago Lumbar radiculopathy Thoracic or lumbosacral neuritis or radiculitis, unspecified Lumbar pain Lumbago documented in this encounter [facility] Work Phone: Evaluation note* Diagnosis Lumbar pain Lumbago documented in this encounter [facility] Work Phone: Evaluation note* Diagnosis Lumbar pain- Primary Lumbago Lumbar radiculopathy Thoracic or lumbosacral neuritis or radiculitis, unspecified documented in this encounter [facility] Work Phone: Evaluation note* Diagnosis Chronic bilateral low back pain with bilateral sciatica- Primary Incontinence of feces with fecal urgency [facility] this [facility]* Diagnosis Back pain with radiculopathy- Primary documented in this encounter [facility] Work Phone: Evaluation note* Diagnosis Lumbosacral radiculitis- Primary Thoracic or lumbosacral neuritis or radiculitis, unspecified [facility]* Diagnosis Back pain with radiculopathy documented in this encounter [facility] Work Phone: [phone] note* Diagnosis Cervical radiculopathy Brachial neuritis or radiculitis nos documented in this encounter [facility] Work Phone: [phone] note* Diagnosis Spinal stenosis, cervical region- Primary Spinal stenosis Spinal stenosis, unspecified region other than cervical Spinal stenosis, cervical region Abscess of axilla, left Spinal stenosis Spinal stenosis, unspecified region other than cervical Spinal stenosis, cervical region documented in this encounter [facility] Work Phone: Evaluation note* Diagnosis Cervical radiculopathy- Primary Brachial neuritis or radiculitis nos Cervical radiculopathy Brachial neuritis or radiculitis nos documented in this encounter [facility] Work Phone: Evaluation note* Diagnosis Cervical radiculopathy Brachial neuritis or radiculitis nos documented in this encounter [facility] Work Phone: Evaluation note* Diagnosis Acute exacerbation of chronic low back pain- Primary documented in this encounter [facility] Videokitsation note* Diagnosis Accidental fall, initial encounter- Primary Neck sprain, initial encounter Lumbar radiculopathy, acute Thoracic or lumbosacral neuritis or radiculitis, unspecified Leg weakness, bilateral Other musculoskeletal symptoms referable to limbs documented in this encounter [facility]* Diagnosis Cervical radiculopathy- Primary Brachial neuritis or radiculitis nos documented in this encounter [facility] Work Phone: Evaluation note* Diagnosis Cervical radiculopathy Brachial neuritis or radiculitis nos documented in this encounter [facility] Work Phone: Evaluation note* Diagnosis Sciatica of left side- Primary Sciatica [facility] Diagnosis Preventative health care- Primary Routine general medical examination at a health care facility Other chronic pain Vitamin D deficiency Attention deficit hyperactivity disorder (ADHD), unspecified ADHD type Hyperlipidemia, unspecified hyperlipidemia type Bipolar affective disorder, remission status unspecified (Multi) Hyperverbal speech documented in this encounter [facility] Work Phone: Evaluation note* Diagnosis Acute exacerbation of chronic low back pain- Primary documented in this encounter [facility]* Diagnosis Cervical myelopathy- Primary Cervical spondylosis with myelopathy Back pain with radiculopathy documented in this encounter [facility] Work Phone: Evaluation note* Diagnosis Back pain with radiculopathy documented in this encounter [facility] Work Phone: Evaluation note* Diagnosis Herniated [...] ankle and foot documented in this encounter [facility] Work Phone: Evaluation note* Diagnosis Herniated nucleus pulposus, L4-5 Displacement of lumbar intervertebral disc without myelopathy Pain of left lower extremity Weakness of left foot Neurogenic bowel Left foot drop Other acquired deformity of ankle and foot documented in this encounter [facility] Work Phone: Evaluation note* Diagnosis Herniated [...] spondylosis with myelopathy documented in this encounter [facility] Work Phone: Evaluation note* Diagnosis Myelopathy (Multi) Unspecified disease of spinal cord documented in this encounter [facility] Work Phone: Evaluation note* Diagnosis Low back pain with left-sided sciatica, unspecified back pain laterality, unspecified chronicity- Primary documented in this encounter [facility] Work Phone: Evaluation note* Diagnosis Myelopathy (Multi) Unspecified disease of spinal cord documented in this encounter [facility] Work Phone: Hospital Discharge instructionsWSt. [facility] Work Phone: Hospital Discharge instructionsWSt. [facility] Work Phone: Hospital Discharge instructions Additional Instructions Follow-up with your primary care provider. Return if feeling worse.[facility] Work Phone: Hospital Discharge instructions Additional Instructions Please be sure to keep your follow-up appointment with your surgeon on 21 May 2023.[facility] Work Phone: Hospital Discharge instructionsAdditional Instructions Follow-up with your primary care physician as well as your orthopedic physician. Continue your home medications. You received Toradol here in the emergency department, no ibuprofen for 8 hours. Return back to the ED if symptoms change or worsen.[facility] Work Phone: Hospital Discharge instructions* Attachments The following attachments cannot be sent through Care Everywhere. * Low back pain ED discharge instructions (Colombian) [facility] Work Phone: Reason for referral (narrative)No reason for referral information availableWSt. Anthony's Hospital Work Phone: Revdmc for visit Narrative* Imaging (Emergency) - Authorized Specialty Diagnoses / Procedures Referred By Julio Cesar hoffman Referred To Contact Radiology Diagnoses Back pain with radiculopathy Procedures MR thoracic spine wo IV contrast Sha Foster MD [address] [facility], [address] [place], [place] [id number] Phone: tel: fax: Referral ID Status Reason Start Date Expiration Date Visits Requested Visits Authorized [id number] Authorized Perform Procedure 4 02/07/2025 1 1 [facility] Work Phone: Reason for visit Narrative* Imaging (Emergency) - Authorized Specialty Diagnoses / Procedures Referred By Contac t Referred To Contact Radiology Diagnoses Back pain with radiculopathy Procedures MR lumbar spine w and wo IV contrast MR lumbar spine w IV contrast Sha Foster MD [address] [facility], [address] [place] [id number] Phone: tel: fax: Referral ID Status Reason Start Date Expiration Date Visits Requested Visits Authorized [id number] Authorized Perform Procedure 4 02/07/2025 1 1 [facility] Work Phone: reason for visit Narrative* Imaging (Emergency) - Authorized Specialty Diagnoses / Procedures Referred By Contac t Referred To Contact Radiology Diagnoses Back pain with radiculopathy Procedures MR cervical spine wo IV contrast Sha Foster MD [address] [facility], [address] [place] [address] Phone: tel: fax: Referral ID Status Reason Start Date Expiration Date Visits Requested Visits Authorized [id number] Authorized Perform Procedure 4 02/07/2025 1 1 [facility] Work Phone: reason for visit Narrative* Auth/Cert Specialty Diagnoses / Procedures Referred By Contac t Referred To Contact Diagnoses SPINAL STENOSIS Procedures N/A Sha Foster MD [address] [facility], [address] [place] [address] Phone: tel: fax: [facility] [address] [place] [place] [address] Referral ID Status Reason Start Date Expiration Date Visits Re quested Visits Authorized [id number] 1 1 [facility] Work Phone: Reason for visit Narrative* Imaging (Routine) - Authorized Specialty Diagnoses / Procedures Referred By Contac t Referred To Contact Radiology Diagnoses Cervical radiculopathy Procedures XR cervical spine 2-3 views Sha Foster MD [address] [facility], [address] [place] [address] Phone: tel: fax: Referral ID Status Reason Start Date Expiration Date Visits Requested Visits Authorized [id number] Authorized Perform Procedure 4 03/07/2025 1 1 [facility] Work Phone: Regddi for visit Narrative* Imaging (Routine) - Authorized Specialty Diagnoses / Procedures Referred By Contac t Referred To Contact Radiology Diagnoses Cervical radiculopathy Procedures XR cervical spine 2-3 views Sha Foster MD [address] [facility], [address] [place] [address] Phone: tel: fax: Referral ID Status Reason Start Date Expiration Date Visits Requested Visits Authorized [id number] Authorized Perform Procedure 06/06/2024 06/06/2025 1 1 [facility] Work Phone: reason for visit Narrative* Imaging (Routine) - Authorized Specialty Diagnoses / Procedures Referred By Contac t Referred To Contact Radiology Diagnoses Herniated nucleus pulposus, L4-5 Pain of left lower extremity Weakness of left foot Neurogenic bowel Left foot drop Procedures MR lumbar spine wo IV contrast MR lumbar spine wo IV contrast Nighat Griffin MD [address] [facility] [address] [place] [address] Phone: tel: fax: Referral ID Status Reason Start Date Expiration Date Visits Requested Visits Authorized [id number] Authorized Perform Procedure 10/02/2024 10/02/2025 1 1 [facility] Work Phone: reason for visit Narrative* Imaging (Routine) - Authorized Specialty Diagnoses / Procedures Referred By Contac t Referred To Contact Radiology Diagnoses Myelopathy (Multi) Procedures MR cervical spine wo IV contrast Sha Foster MD [address] [facility], [address] [place] [address] Phone: tel: fax: Referral ID Status Reason Start Date Expiration Date Visits Requested Visits Authorized [id number] Authorized Perform Procedure 11/10/2024 12/11/2025 1 1 [facility] Work Phone: Reason for visit Narrative* Imaging (Routine) - Authorized Specialty Diagnoses / Procedures Referred By Julio Cesar t Referred To Contact Radiology Diagnoses Myelopathy (Multi) Procedures MR thoracic spine wo IV contrast Sha Foster MD [address] [facility], [address] [place] [address] Phone: tel: fax: Referral ID Status Reason Start Date Expiration Date Visits Requested Visits Authorized [id number] Authorized Perform Procedure 11/10/2024 12/11/2025 1 1 [facility] Work Phone: Summary Purpose Family History No Family History Records FoundNo Family History Records FoundNo Family History Records FoundNo Family History Records FoundNo Family History Records FoundNo Family History Records FoundNo Family History Records FoundNo Family History Records FoundNo Family History Records FoundNo Family History Records FoundNo Family History Records FoundNo Family History Records Found Advance Directives No Advanced Directives Records Found Advance Directive Response Recorded Date/ Time Living Will No June 15, 2021 8:39pm Power of Plsql Developer No June 15 8:39pm Advance Directive Response Recorded Date/ Time Living Will No August 19, 2021 1 :08pm Power of Plsql Developer No August 19, 2021 1:08pm Advance Directive Response Recorded Date/ Time Living Will No August 20, 2021 4 :43pm Power of Plsql Developer No August 20, 2021 4:43pm Advance Directive Response Recorded Date/ Time Living Will No June 16, 2022 10:19pm Power of Plsql Developer No June 16 10:19pm Advance Directive Response Recorded Date/ Time Living Will No November 09 3:32pm Power of Plsql Developer No November 09 023 3:32pm Advance Directive Response Recorded Date/ Time Living Will No Gerardo 26th, 2 023 12:29pm Power of Plsql Developer No March 09, 2023 12:29pm Advance Directive Response Recorded Date/ Time Living Will No April 10 4:40pm Power of Plsql Developer No April 10, 2023 4:40pm Advance Directive Response Recorded Date/ Time Living Will No May 18, 2023 3:41pm Power of Plsql Developer No May 17 3:41pm Date Activated Date [...] Do you have a Healthcare Power of Plsql Developer? No October 23, 2024 3:38pm Healthcare Agents on File Name Relationship Healthcare Agent Relationshi p Communication Sis Rhodes Health Care Agent Healthcare Agents on File Name Relationship Healthcare Agent Relationshi p Communication Sis Rhodes Health Care Agent Advance Directive Response Recorded Date/ Time Do you have a Healthcare Power of Plsql Developer? No October 23, 2024 3:38pm Do you have a Healthcare Power of Plsql Developer? No November 10, 2024 11:56pm Healthcare Agents on File Name Relationship Healthcare [...] Date unresponsive October 23, 2024 3: 27pm Chief Complaint Admit Date unresponsive October 23, 2024 3: 27pm back November 10, 2024 11 :53pm Reason for Referral Specialty Diagnoses / Procedures Referred By Contac t Referred To Contact Radiology Diagnoses Lumbar pain Lumbar radiculopathy Procedures MR lumbar spine w and wo IV contrast Sha Foster MD [address] [facility], [address] [place] [address] Referral ID Status Reason Start Date Expiration Date Visits Requested Visits Authorized [id number] Pending Review Perform Procedure 05/04/2023 05/03/2024 1 1 Specialty Diagnoses / Procedures Referred By Contac t Referred To Contact Physical Therapy Diagnoses Lumbar pain Lumbar radiculopathy Sha Foster MD [address] [facility], [address] [place] [address] Referral ID Status Reason Start Date Expiration Date Visits Requested Visits Authorized [id number] Pending Review Specialty Services Required 05/04/2023 05/03/2024 1 1 Specialty Diagnoses / Procedures Referred By Contac t Referred To Contact Radiology Diagnoses Lumbar pain Procedures XR lumbar spine complete 4+ views Sha Foster MD [address] [facility], [address] [place] [address] Referral ID Status Reason Start Date Expiration Date Visits Requested Visits Authorized [id number] Authorized Perform Procedure 05/04/2023 05/03/2024 1 1 Referral ID Status Reason Start Date Expiration Date Visits Requested Visits Authorized [id number] Pending Review Perform Procedure 12/14/2023 12/13/2024 1 1 Referral ID Status Reason Start Date Expiration Date Visits Requested Visits Authorized [id number] Pending Review Specialty Services Required 12/14/2023 12/13/2024 1 1 Specialty Diagnoses / Procedures Referred By Contac t Referred To Contact Anesthesiology Diagnoses Lumbar pain Lumbar radiculopathy Sha Foster MD [address] [facility], [address] [place] [address] Arielle Reeves MD [address] [address] Referral ID Status Reason Start Date Expiration Date Visits Requested Visits Authorized [id number] Authorized Specialty Services Required 12/14/2023 12/13/2024 1 [...] DATE CREATED AUTHOR AUTHOR'S ORGANIZ ATION 03/02/2018 [facility] DATE CREATED AUTHOR AUTHOR'S ORGANIZ ATION 12/06/2022 [facility] DATE CREATED AUTHOR AUTHOR'S ORGANIZ ATION 02/29/2024 [facility] DATE CREATED AUTHOR AUTHOR'S ORGANIZ ATION 07/19/2024 [facility] DATE CREATED AUTHOR AUTHOR'S ORGANIZ ATION 07/24/2024 [facility] DATE CREATED AUTHOR AUTHOR'S ORGANIZ ATION 10/16/2024 [facility] DATE CREATED AUTHOR AUTHOR'S ORGANIZ ATION 11/01/2024 [facility] DATE CREATED AUTHOR AUTHOR'S ORGANIZ ATION 11/04/2024 [facility] DATE CREATED AUTHOR AUTHOR'S ORGANIZ ATION 11/18/2024 [facility] DATE CREATED AUTHOR AUTHOR'S ORGANIZ ATION 12/15/2024 [facility] DATE CREATED AUTHOR AUTHOR'S ORGANIZ ATION 12/16/2024 [facility] Goals (unrecognized section and content) Goals [...] Dr. Raghu Sadler DO Emergency Provider Active Reimbursement Representative Relationship Specialty Start Date End Date Josafat Leonard DO [address] [facility], [address] [place] [address] PCP - [employer] PCP 08/13/21 Josafat Leonard DO [address] [facility], [address] [place] [address] PCP - [facility] Medicaid PCP 06/13/22 Josafat Leonard DO [address] [facility], [address] [place] [address] PCP - General Family Medicine 10/15/23 Reimbursement Representative Relationship Specialty Start Date End Date Josafat Leonard DO [address] [facility], [address] [address] PCP - [employer] PCP 08/13/21 Josafat Leonard DO [address] [facility], [address] [address] PCP - [facility] Medicaid PCP 06/13/22 Josafat Leonard DO [address] [facility], [address] [address] PCP - General Family Medicine 12/27/22 Team Status: Inactive Member Role Status Dates Dr. Josafat Leonard DO Primary Care Provider Active Dr. Raghu Sadler , Attending Provider, Emergency P melba Active Team Status: Inactive Member Role Status Dates Dr. Josafat Leonard DO Primary Care Provider Active Dr. Mynor Colon , DO Emergency Provider Active Reimbursement Representative Relationship Specialty Start Date End Date Josafat Leonard DO [address] [facility], [address] [address] PCP - [facility] Medicaid PCP 06/13/22 Josafat Leonard DO [address] [facility], [address] [address] PCP - General Family Medicine 12/27/22 Dev Martel PA-C [address] [place] [address] PCP - [employer] PCP 06/14/23 Reimbursement Representative Relationship Specialty Start Date End Date Josafat Leonard DO [address] [place] [address] PCP - General 09/18/15 Reimbursement Representative Relationship Specialty Start Date End Date Josafat Leonard DO [address] [facility], [address] [address] PCP - General Family Medicine 12/27/22 Dev Martel PA-C [address] [place] [address] PCP - [employer] PCP 06/14/23 Dev Martel PA-C [address] [place] [address] PCP - [facility] Medicaid PCP 12/14/23 Reimbursement Representative Relationship Specialty Start Date End Date Josafat Leonard DO [address] [place] [address] PCP - General 09/18/15 Reimbursement Representative Relationship Specialty Start Date End Date Josafat Leonard DO [address] [facility], [address] [address] PCP - General Family Medicine 12/27/22 Dev Martel PA-C [address] [place] [address] PCP - [employer] PCP 06/14/23 Dev Martel PA-C [address] [place] [address] PCP - [employer] Medicaid PCP 12/14/23 Reimbursement Representative Relationship Specialty Start Date End Date MattidiJosafat levin DO [address] [facility], [address] [address] PCP - General Family Medicine 12/27/22 Dev Martel PA-C [address] [place] [address] PCP - [employer] PCP 06/14/23 Dev Martel PA-C [address] [place] [address] PCP - [employer] Medicaid PCP 12/14/23 Reimbursement Representative Relationship Specialty Start Date End Date MattidiJosafat levin DO [address] [facility], [address] [address] PCP - General Family Medicine 12/27/22 Dev Martel PA-C [address] [place] [address] PCP - [employer] PCP 06/14/23 Dev Martel PA-C [address] [place] [address] PCP - [employer] Medicaid PCP 12/14/23 Reimbursement Representative Relationship Specialty Start Date End Date MattidiJosafat levin DO [address] [facility], [address] [address] PCP - General Family Medicine 12/27/22 Dev Martel PA-C [address] [place] [address] PCP - [employer] PCP 06/14/23 Dev Martel PA-C [address] [place] [address] PCP - [employer] Medicaid PCP 12/14/23 Reimbursement Representative Relationship Specialty Start Date End Date Josafat Leonard DO [address] [facility], [address] [address] PCP - General Family Medicine 12/27/22 Dev Martel PA-C [address] [place] [address] PCP - [employer] PCP 06/14/23 Dev Martel PA-C [address] [place] [address] PCP - [employer] Medicaid PCP 12/14/23 Reimbursement Representative Relationship Specialty Start Date End Date Josafat Leonard DO [address] [facility], [address] [place] [address] PCP - General Family Medicine 12/27/22 Dev Martel PA-C [address] [place] [address] PCP - [employer] PCP 06/14/23 Dev Martel PA-C [address] [place] [address] PCP - [employer] Medicaid PCP 12/14/23 Reimbursement Representative Relationship Specialty Start Date End Date Josafat Leonard DO [address] [facility], [address] [place] [address] PCP - General Family Medicine 12/27/22 Dev Martel PA-C [address] [place] [address] PCP - [employer] PCP 06/14/23 Dev Martel PA-C [address] [place] [address] PCP - [facility] Medicaid PCP 12/14/23 Reimbursement Representative Relationship Specialty Start Date End Date Josafat Leonard DO [address] [place] [address] PCP - General 09/18/15 Reimbursement Representative Relationship Specialty Start Date End Date Josafat Leonard DO PCP - General 09/18/15 Reimbursement Representative Relationship Specialty Start Date End Date Josafat Leonard DO PCP - General 09/18/15 Reimbursement Representative Relationship Specialty Start Date End Date Josafat Leonard DO [address] [facility], [address] [place] [address] PCP - General Family Medicine 12/27/22 Dev Martel PA-C [address] [place] [address] PCP - [employer] PCP 06/14/23 Dev Martel PA-C [address] [place] [address] PCP - [employer] Medicaid PCP 12/14/23 Reimbursement Representative Relationship Specialty Start Date End Date Josafat Leonard DO PCP - General 09/18/15 Reimbursement Representative Relationship Specialty Start Date End Date Josafat Leonard DO [address] [facility], [address] [address] PCP - General Family Medicine 12/27/22 Dev Martel PA-C [address] [place] [address] PCP - [employer] PCP 06/14/23 Dev Martel PA-C [address] [place] [address] PCP - [employer] Medicaid PCP 12/14/23 Reimbursement Representative Relationship Specialty Start Date End Date Josafat Leonard DO [address] [facility], [address] [address] PCP - General Family Medicine 12/27/22 Dev Martel PA-C [address] [place] [address] PCP - [employer] PCP 06/14/23 Dev Martel PA-C [address] [place] [address] PCP - [employer]IL[employer] Medicaid PCP 12/14/23 Reimbursement Representative Relationship Specialty Start Date End Date Josafat Leonard DO [address] [facility], [facility] [address] [place] [address] PCP - General Family Medicine 12/27/22 Dev Martel PA-C [address] [place] [address] PCP - [employer] PCP 06/14/23 Dev Martel PA-C [address] [place] [address] PCP - [employer] Medicaid PCP 12/14/23 Team Status: Active Member Role/Relationship Status Dates Dr. Josafat Leonard DO Primary Care Provider Active Team Status: Inactive Member Role/Relationship Status Dates Dr. Josafat Leonard DO Primary Care Provider Active Start: October 23, 2024 End: October 23, 2024 Dr. Caleb Smith DO Emergency Provider Active Start: October 23, 2024 End: October 23, 2024 Reimbursement Representative Relationship Specialty Start Date End Date Josafat Leonard DO [address] [facility], [address] [address] PCP - General Family Medicine 12/27/22 Dev Martel PA-C [address] [place] [address] PCP - [employer] PCP 06/14/23 Dev Martel PA-C [address] [place] [address] PCP - [employer] Medicaid PCP 12/14/23 Reimbursement Representative Relationship Specialty Start Date End Date Josafat Leonard DO [address] [facility], [address] [address] PCP - General Family Medicine 12/27/22 Dev Martel PA-C [address] [place] [address] PCP - [employer] PCP 06/14/23 Dev Martel PA-C [address] [place] [address] PCP - [employer] Medicaid PCP 12/14/23 Team Status: Inactive Member Role/Relationship Status Dates Dr. Josafat Leonadr DO Primary Care Provider Active Start: October 23, 2024 End: October 23, 2024 Dr. Caleb Smith DO Attending Provider Active Start: October 23, 2024 End: October 23, 2024 Dr. Caleb Smith DO Emergency Provider Active Start: October 23, 2024 End: October 23, 2024 Team Status: Inactive Member Role/Relationship Status Dates Dr. Josafat Leonard DO Primary Care Provider Active Start: November 10, 2024 End: November 11, 2024 Dr. Eduardo Mcdonald DO Emergency Provider Activ e Start: November 10, 2024 End: November 11, 2024 Reimbursement Representative Relationship Specialty Start Date End Date Josafat Leonard DO [address] [facility], [address] [place] [address] PCP - General Family Medicine 12/27/22 Dev Martel PA-C [address] [place] [address] PCP - [employer] PCP 06/14/23 Dev Martel PA-C [address] [place] [address] PCP - [employer] Medicaid PCP 12/14/23 Reimbursement Representative Relationship Specialty Start Date End Date Josafat Leonard DO [address] [facility], [address] [place] [address] PCP - General Family Medicine 12/27/22 Dev Martel PA-C [address] [place] [address] PCP - [facility]iza QUINONESO PCP 06/14/23 Dev Martel PA-C [address] [place], [place] [id number] PCP - [facility] Medicaid PCP 12/14/23 Reason for Visit (unrecogniz ed section and content) Reason Comments Pain xrays Specialty Diagnoses / Procedures Referred By Contac t Referred To Contact Radiology Diagnoses Lumbar pain Procedures XR lumbar spine complete 4+ views Sha Foster MD [address] [facility], [facility] [place] [address] Referral ID Status Reason Start Date Expiration Date Visits Requested Visits Authorized [id number] Authorized Perform Procedure 05/04/2023 05/03/2024 1 1 Reason Comments Follow-up MRI was denied due t o lack of therapy, did not do therapyHas [facility] [...] NPV, rmd- Dr. Ruben kessler Numbness NPV, ty- Dr. Ruben kesslerFrom torso downCan't feel warm or cold on torso as well Specialty Diagnoses / Procedures Referred By Contac t Referred To Contact Neurology Diagnoses Back pain with radiculopathy Sha Foster MD [address] [facility], [address] [place] [address] Phone: tel: fax: Referral ID Status Reason Start Date Expiration Date Visits Requested Visits Authorized [id number] Authorized Specialty Services Required 02/07/2025 1 1 Reason Comments Back Pain Specialty Diagnoses / Procedures Referred By Contac t Referred To Contact Pain Medicine Diagnoses Back pain with radiculopathy Dev Martel PA-C [address] [place] [address] Phone: tel: fax: [place] [address] [facility], [facility], [address] [address] Phone: tel: fax: Referral ID Status Reason Start Date Expiration Date Visits Requested Visits Authorized [id number] Authorized Specialty Services Required 06/27/2024 06/27/2025 1 1 Reason Comments New Patient Visit [facility]. Reason Comments Follow-up F/U MRI done at Reason Comments Back Pain Bilateral lower back pain with a hx of sciatica and L knee pain Ordered Prescriptions (unrec ognized section and content) [...] hours. 2323 (Given - Provider: Laurie Alfonso, RN) predniSONE (DELTASONE) tablet 60 mg (COMPLETED) 60 mg, Oral, ONCE, 1 dose, On Wed02/08/24 at 2224 2230 (Given - Provider: Laurie Alfonso, RN) Scheduled Medication Order 02/24/2024 02/25/2024 02/26/2024 [...] Haley Laboy, GIA)1212 (Given - Provider: Felipe Acuña, GIA)2025 (Given [...] Prophylaxis 1259 (Given - Provider: Pranay Lopez, AIR QUALITY CHEMIST-ELECTRICAL INSTALLATION INSPECTOR)1613 (Anesthesia Volume Adjustment - Provider: Kris Madrid, ) ceFAZolin (Ancef) 2 g in dextrose (iso) [...] 2009 (New Bag - Provider: Haley Laboy RN)2039 (Stopped - Provider: Haley Laboy RN) 040 [...] Auto Held - Provider: Automatic Transfer Provider)1908 (MAY Unhold - Provider: Veda Polk MD)205 (New [...] mg (COMPLETED) 1,950 mg, oral, Once, On Wed02/24/24 at 0600, For 1 dose, Preprocedure, 90 minutes prior to procedure Do not crush, chew, or split. 1211 (Given - Provider: Elisha Bruce RN) tranexamic acid (Lysteda) tablet 1,950 mg (COMPLETED) 1,950 mg, oral, Once, On Angelita 02/24/24 at 1630, For 1 dose, Second dose administered 4 hours post procedure. Do not crush, chew, or split., Tranexamic Acid Indication: Surgical Prophylaxis: Spinal 2009 (Given - Provider: Haley Laboy RN) vancomycin [...] 2009 (Given - Provider: Haley Laboy RN) 121 (Given - Provider: Felipe Acuña, GIA)2025 (Given - Provider: Rafa Kwan RN) dextrose [...] pain scores based on patient preference? Yes 1651 (Given - Provider: Linda Galarza RN)170 (Given - Provider: Linda Galarza RN) glucagon [...] dose. 1624 (Given - Provider: Linda Galarza RN)162 (Given - Provider: Linda Galarza RN)1635 (Given - Provider: Linda Galarza, GIA)1643 (Given - Provider: Linda Galarza, GIA - Comment: Not given. Realized only ordered for 3 doses. Verified with Dana Alcala and wasted.) hydrOXYzine pamoate (Vistaril) capsule 25 mg 25 mg, oral, Every 6 hours PRN, anxiety, Starting on Wed02/25/24 at 1456 1549 (Given - Provider: Felipe Acuña, RN) lubricating eye drops ophthalmic solution 1 [...] PRN, nausea/vomiting, first line, Starting on Angelita 12/12/24 at 1745, 1st Line. Use oral route [...] Susana Estrada RN)2213 (Given - Provider: Haley Laboy, GIA) 0214 (Given - Provider: Haley Laboy RN)0620 (Given - Provider: Haley Laboy RN)1048 (Given - Provider: Felipe Acuña, GIA)1549 (Given - Provider: Felipe Acuña, GIA)2024 (Given - Provider: Rafa Kwan RN) 0041 (Given - Provider: Rafa Kwan RN)0948 (Given - Provider: Felipe Acuña RN) oxyCODONE (Roxicodone) immediate release tablet 2.5 mg [...] line, Starting on Angelita 24 at 1745, When able to take oral medications., If ordered PRN for pain, nurse is permitted to administer this medication for higher pain scores based on patient preference? Yes oxyCODONE (Roxicodone) immediate release tablet 5 mg 5 mg, oral, Every 4 hours PRN, pain moderate (4-6), first line, Starting on Angelita 24 at [...] preference? Yes 0229 (Given - Provider: Haley Laboy, GIA)0905 (Given - Provider: Susana Estrada, GIA)1207 (MAR Hold - Provider: Automatic Transfer Provider - Reason: Unreviewed Transfer Orders)1908 (MAY Unhold - Provider: Veda Polk MD) promethazine [...] 1 dose, On Angelita 06/15/24 at 2144 2155 (Given - Provid er: Renay Davila RN) [...] Apply patch to left lower back. The tray worker's recommendations for the number of patches that can be applied within a 24-hour period varies from 1 to 4 times daily and the duration of application varies from 8 to 24 hours; refer to the tray worker's labeling for product-specific recommendations. 2157 (Patch Applied [...] at 2301 2353 (Given - Provider: Aarti Solano RN) morphine sulfate (PF) injection 4 mg (COMPLETED) 4 mg, IntraVENous, ONCE, 1 dose, On Angelita 07/13/24 at 2301, If oral and IV narcotics ordered, use oral first and only use IV if oral is ineffective or cannot take oral. Do Not give oral and IV within 1 hour of each other unless specifically ordered. 2352 (Given - Provider: Aarti Solano RN) ondansetron (ZOFRAN) injection 4 mg (COMPLETED) 4 mg, IntraVENous, ONCE, 1 dose, On Angelita 07/13/24 at 2301 235 (Given - Provider: Aarti Solano RN) sodium chloride 0.9 % bolus 500 mL (COMPLETED) 500 mL (5.9 mL/kg), IntraVENous, at 967.7 mL/hr, Administer over 31 Minutes, ONCE, On Angelita 07/13/24 at 2301, For 1 dose 2350 (New Bag - Provider: Aarti Solano, GIA) 0245 (Stopped - Provider: Aarti Solano RN) Scheduled Medication Order 12/06/2024 12/07/2024 12/08/2024 acetaminophen (Tylenol) tablet 975 mg (COMPLETED) 975 mg, oral, Once, On Wed12/08/24 at 1845, For 1 dose, If ordered PRN for pain, nurse is permitted to administer this medication for higher pain scores based on patient preference? Yes 1858 (Given - Provid er: Monika Temple RN) gabapentin (Neurontin) capsule 600 mg (COMPLETED) 600 mg, oral, Once, On Wed12/08/24 at 1845, For 1 dose, Capsules may be opened and sprinkled on food (eg, applesauce, orange juice, pudding 1858 (Given - Provid er: Monika Temple RN) oxyCODONE (Roxicodone) immediate release tablet 5 mg (COMPLETED) 5 mg, oral, Once, On Wed12/08/24 at 2030, For 1 dose, If ordered PRN for pain, nurse is permitted to administer this medication for higher pain scores based on patient preference? Yes 2029 (Given - Provid er: Galina Shaw RN) predniSONE (Deltasone) tablet 60 mg (COMPLETED) 60 mg, oral, Once, On Wed12/08/24 at 1845, For 1 dose 1858 (Given - Provid er: Monika Temple RN) FOR RECORDS PERTAINING TO PATIENTS WHO [...] BE BASED ON THE PRIMARY CLINICAL RECORDS. [facility]. provides no warranty or guarantee of the accuracy or completeness of information in this document.
[2024-12-17 23:11] LABS: Mucous, Urine 0 SEEN /hpf (<or=2+); Red Blood Cells-Urine 0 SEEN /hpf (0-5); Squamous Epithelial Cells - UA 0 SEEN /hpf (0-5)
[2024-12-17 23:16] LABS: Color, Urine Yellow (Yellow); Glucose, Dipstick Normal (Normal); Ketone-Dipstick Negative (Negative); Leukocyte Esterase-Dipstick Negative /ul (Negative); Nitrite-Dipstick Negative (Negative); Occult Blood-Urine 10 /ul (Negative); Protein-Dipstick 30 mg/dl (Negative); Specific Gravity, Urine 1.025 (1.002-1.030); Urine Bilirubin Dipstick Negative (Negative)
== END 2024-12-17 23:01 | disposition home or self-care (01) ==
PROVIDERS: Emergency Provider Emergency Medicine; PCP Family Medicine; Visit Provider Emergency Medicine
DX: D29.0 Benign neoplasm of penis (principal); Z11.3 Encounter for screening for infections with a predominantly sexual mode of transmission; F17.210 Nicotine dependence, cigarettes, uncomplicated
CPT/HCPCS: 81001; 87491; 87591; 99282

== ENCOUNTER 2025-01-14 16:57 | Emergency (ER) | payer MEDICAID, SELFPAY ==
[2025-01-14 16:58] VITALS: BP 198/110; PULSE 99; RESP 20; TEMP 36.2; O2SAT 100
[2025-01-14 18:58] VITALS: BP 131/99; PULSE 80; O2SAT 100
--- NOTE | 2025-01-14 19:09 | EX.ED.GENINJ ---
HPI History of Present Illness Chief Complaint: Lower Extremity Injury Detail of Chief Complaint: Lower back pain left greater than right status post fall Informant: patient Onset/Context/Timing Onset: Today and Hours Mechanism/Context: Blunt Injury and Fall Location of pain/injuries: - (Lower back bilaterally left greater than right) Quality of Pain: Dull and Aching Location: Left paralumbar radiating anteriorly to the mid left thigh Current Severity: Mild Maximum Severity: Severe Worsened by: Movement Relieved by: Nothing Associated Symptoms Associated Symptoms: Negative for Parasthesias, Weakness, Loss of function, Inability to ambulate, Loss of consciousness or Amnesia Narrative Narrative: Patient is a 44-year-old male. He has history of neck and back surgery. He is scheduled for L5-S1 laminectomy and fusion. He has a foot drop on the left side. This was first noted December 2023. Patient denies bowel bladder dysfunction. Patient denies buckling of his knees going up or down steps. Patient denied head trauma. [place] neck pain. He has no new symptoms other than the low back pain that is greater on the left compared to the right Prior similar symptoms: Yes Recent Illness/Hospitalization: No PFSH PFSH Medical History ADHD Sciatica Cervical radiculopathy Home Medications ?Medication ?Instructions ?Recorded ?Last Taken ?Type gabapentin 300 mg capsule 600 mg PO Q8H 01/04/24 Unknown History baclofen 10 mg tablet 20 mg PO Q8H 10/23/24 Unknown History cholecalciferol (vitamin D3) 125 125 mcg PO DAILY 10/23/24 Unknown History mcg (5,000 unit) capsule chlorzoxazone 500 mg tablet 500 mg PO 4X/DAY PRN PRN muscle 11/11/24 Unknown History spasm Allergy/AdvReac Type Severity Reaction Status Date / Time No Known Allergies Allergy Verified 01/14/25 16:58 Surgical History Hx of tonsillectomy Previous back surgery Social History household members: none housing: house Smoking Status: Current every day smoker tobacco type: cigarettes alcohol intake: current alcohol intake frequency: other substance use type: marijuana ROS ROS ED Constitutional Constitutional ED: Denies chills, fever(s), subjective, sweats or weight loss Gastrointestinal Gastrointestinal: Denies abdominal pain, nausea or vomiting Musculoskeletal Musculoskeletal: Reports back pain; Denies arthralgias, myalgias or neck pain Integumentary Denies abscess, Abrasions or rash Neurologic Neurologic: Reports weakness; Denies paresthesias Hematologic/Lymphatic Hematologic/Lymphatic: Denies easy bleeding or easy bruising EXAM Physical Exam Const Vital Signs: 01/14/25 16:58 01/14/25 18:58 Temperature 97.2 F L Temperature Source Temporal Pulse Rate 99 80 Respiratory Rate 20 H Blood Pressure 198/110 H 131/99 H Blood Pressure Mean 139 109 Pulse Ox 100 100 Oxygen Delivery Method Room Air Positive well nourished and well developed General Appearance ED: well developed and NAD HEENT atraumatic; Negative for trauma Eyes PERRL and EOMs intact bilaterally Neck full ROM Resp normal respiratory effort Cardio regular rhythm Rate: regular rate GI normal to inspection, nondistended, normoactive bowel sounds, non-tender, non-distended and no masses Back/Spine normal to inspection; Negative for no thoracic nor lumbar tenderness Back/Spine Narrative: Paralumbar discomfort on the left predominantly. There is no midline tenderness. Straight leg test is negative bilaterally. Patient does have a foot drop on the left. Sensation L3-S1 is normal on the right side. He has altered sensation L4 dermatome on the left. This is not consistent with the lesion that he is noted to have on MRI and reason for surgery. DP PT pulse palpable. Patella and ankle reflex are 3+ and symmetric. EHL is intact bilaterally. Extremity normal to inspection; Negative for full ROM Extremity Narrative: Foot drop on the left Neuro oriented x3, CN's II-XII intact bilaterally, moves all extremities, No no focal motor deficits and No no sensory deficits noted Deep Tendon Reflexes: Rt Patellar (L4): 3+, Lt Patellar (L4): 3+, Rt Ankle (S1): 3+ and Lt Ankle (S1): 3+ Deep Tendon Reflexes Back: Rt Patellar (L4): 3+, Lt Patellar (L4): 3+, Rt Ankle (S1): 3+ and Lt Ankle (S1): 3+ Plantar Reflex: Downgoing: bilateral (There is no clonus.) Psych mental status grossly normal and thought process normal Skin no rashes or lesions noted, skin turgor normal and no jaundice MDM MDM MDM Narrative Medical decision making narrative: Patient with [place] low back pain. He was treated with IV morphine. Of note his blood pressure was elevated when he is complain of significant pain. Patient was reassessed at 1907. He states his pain is better. His blood pressure has improved significantly. Plan is to discharge to home. Discharge Plan Triage Chief Complaint: Lower Extremity Injury ED Provider: Neeraj Antonio Dx/Rx/DC Orders Clinical Impression: Acute lumbosacral myofascial strain, Foot drop, left, Acute low back pain, Injury due to fall Instructions: ED Back Sprain/Strain Prescriptions: No Action baclofen 10 mg tablet 20 mg PO Q8H cholecalciferol (vitamin D3) 125 mcg (5,000 unit) capsule 125 mcg PO DAILY gabapentin 300 mg capsule 600 mg PO Q8H chlorzoxazone 500 mg tablet 500 mg PO 4X/DAY PRN PRN (Reason: muscle spasm) Primary Care Provider: Josafat Davis Referrals: Josafat Davis DO [Primary Care Provider, Medical] - As Needed Print Language: Thai Disposition Disposition: Home, Self Care
[2025-01-14 19:12] VITALS: BP 131/99; PULSE 80; RESP 18; TEMP 36.9; O2SAT 100
== END 2025-01-14 19:23 | disposition home or self-care (01) ==
PROVIDERS: Emergency Provider Emergency Medicine; PCP Family Medicine; Visit Provider Emergency Medicine
DX: S39.012A Strain of muscle, fascia and tendon of lower back, initial encounter (principal); F17.210 Nicotine dependence, cigarettes, uncomplicated; M21.372 Foot drop, left foot; W19.XXXA Unspecified fall, initial encounter
CPT/HCPCS: 96374; 96375; 99282; A4216; J2405

== ENCOUNTER 2025-02-03 15:41 | Emergency (ER) | payer MEDICAID, SELFPAY ==
[2025-02-03 15:42] VITALS: BP 116/74; PULSE 84; RESP 18; TEMP 36; O2SAT 99; BMI 24.5
--- OUTSIDE RECORDS SUMMARY | 2025-02-03 16:16 | XMS RPT_ITS | CCD ---
Author Organization [facility] ion [facility] Care Team Providers Care Carry All Driver Name Role Phone BRANCH, TOM Unavailable Unavailable [...] Sha Rice Attending Unavai lable Degidio DO, Ojsafat R Unavailable Degidio DO, Josafat R Unavailable [phone] Degidio DO, Josafat R Primary Care Provider [phone] Asif Martel PA-Cson E Unavailable Degidio DO, Josafat R Primary Care Provider Tahmina REICH Dev E Unavailable Degidio DO, Josafat R Primary Care Provider [phone] Degidio DO, Josafat R Primary Care Provider Asif Martel PA-Cson E Unavailable [phone] Almartalonzo REICH Dev E Unavailable DEGIDIO, JOSAFAT [...] Unavailable DEGIDIO, JOSAFAT R Primary Care Unavailable APOORVA GRIFFIN Referring Unavailable DEGIDIO, JOSAFAT R Primary Care Unavailable SHA FOSTER Referring Unavailable DEGIDIO, JOSAFAT R Primary Care Unavailable Degidio , Dr. Maurice Primary Care Provider [phone] Luis GOULD, Dr. Ellis Emergency Provider SHA FOSTER Admitting Unavailable SHA FOSTER Attending Unavailable SHA FOSTER Referring Unavailable DEGIDIO, JOSAFAT R Primary Care Unavailable Smith DO, Dr. Ellis Attending Provider Tamara GOULD, Dr. Clark Emergency Provider Ryan GOULD, Dr. Maurice Primary Care Physician Luis GOULD, Dr. Ellis Attending Physician Luis GOULD, Dr. Ellis [facility] , Dr. Clark Emergency Departmen t Physician [facility] , Dr. Zelaya Emergency Department Physi mina APOORVA GRIFFIN Attending Unavailable DEGIDIO, JOSAFAT R Primary Care Unavailable APOORVA GRIFFIN Attending Unavailable DEGIDIO, JOSAFAT R Primary Care Unavailable DEGIDIO, JOSAFAT R Attending Unavailable DEGIDIO, JOSAFAT R Primary Care Unavailable RADHA DIXON Attending Unavailable SHA FOSTER Referring Unavailable DEGIDIO, JOSAFAT R Primary Care Unavailable APOORVA GRIFFIN Attending Unavailable DEGIDIO, JOSAFAT R Primary [...] Primary Care Unavailable JEFF NICHOLS Attending Unavailable MATTIDIO, JOSAFAT R Primary Care [...] Primary Care Unavailable ZURI MELO Attending Unavailable APOORVA GRIFFIN Referring Unavailable DEGIDIO, JOSAFAT R Primary Care Unavailable APOORVA GRIFFIN Referring Unavailable DEGIDIO, JOSAFAT R Primary Care Unavailable ANNAROTZURI Hoffman Attending Unavailable APOORVA GRIFFIN Referring Unavailable DEGIDIO, JOSAFAT R Primary Care Unavailable SERAPOORVA FERMIN Referring Unavailable DEGIDIO, JOSAFAT R Primary Care Unavailable ZURI MELO Attending Unavailable SERELSAPOORVA Referring Unavailable DEGIDIO, JOSAFAT R Primary Care Unavailable SERELSAPOORVA Referring Unavailable DEGIDIO, JOSAFAT R Primary Care Unavailable ZURI MELO Attending Unavailable APOORVA GRIFFIN Referring Unavailable DEGIDIO, JOSAFAT R Primary Care Unavailable ZURI MELO Attending Unavailable SERAPOORVA FERMIN Referring Unavailable DEGIDIO, JOSAFAT R Primary Care Unavailable SERZANDER, APOORVA Referring Unavailable DEGIDIO, JOSAFAT R Primary Care Unavailable SERZANDER, APOORVA Referring Unavailable DEGIDIO, JOSAFAT R Primary Care Unavailable ZURI MELO Attending Unavailable SERZANDER, APOORVA Referring Unavailable DEGIDIO, JOSAFAT R Primary Care Unavailable APOORVA GRIFFIN Referring Unavailable DEGIDIO, JOSAFAT R Primary Care Unavailable SURAJ MEYERS I Attending Unavailable DEV MARTEL Referring Unavailable DEGIDIO, JOSAFAT R Primary Care Unavailable SHA FOSTER Admitting Unavailable SHA FOSTER Attending Unavailable DEGIDIO, JOSAFAT R Primary Care Unavailable DEGIDIO, JOSAFAT R Primary Care Unavailable DEV MARTEL Referring Unavailable DEGIDIO, JOSAFAT R Primary Care Unavailable Degidio, Josafat Primary Care Unavailable Eduardo Mcdonald Attending Unavailabl e Degidio, Josafat Primary Care Unavailable Nathalie Manning Attending Unavailable Degidio, Josafat Primary Care Unavailable Caleb Smith Attending Unavailable Neeraj Antonio Attending Unavailable Degidio, Josafat Primary Care Unavailable Allergies Allergy Classification Reported Allergen(s) Allergy Type Date of Onset Reaction(s) Facility (1 source) ALLERGIES NOT ON FILE; Translations: [ALLERGIES NOT ON FILE] Propensity to adverse reactions (disorder) [facility] Repository Medications Current Medications Medication Drug Class(es) Dates Sig (Normalized) Sig (Original) ALPRAZolam 0.5 mg oral tablet (1 source) Benzodiazepine Start: 02-24-2024 take 0.5 mg by mouth once daily as needed for anxiety 0.5 mg, oral, Nightly PRN, anxiety, Starting on [facility] 02/24/24 at 2002 baclofen 10 mg oral tablet (15 sources) gamma-Aminobutyric Acid-ergic Agonist Start: 10-23-2024 take 2 tablets by mouth every eight hours Start: 10-23-2024 Baclofen 10 mg tablet Active mg PO October 23, 2024 12:00am Start: 10-02-2024 End: 02-03-2025 take 1.5 tablets by mouth three times daily in the evening baclofen (Lioresal) 10 mg tablet Indications: Cervical myelopathy Take 1.5 tablets (15 mg) by mouth 3 times a day. 135 tablet 2 01/03/2025 5:52 PM EDT 10/02/2024 02/03/2025 Active Start: 08-04-2024 End: 10-02-2024 take 1 [...] 11/01/2017 Active chlorzoxazone 500 mg oral tablet (10 sources) Muscle Relaxant Start: 10-26-2024 End: 02-27-2025 take 1 tablet by mouth four times daily as needed for muscle spasms chlorzoxazone (Parafon Forte) 500 mg tablet Indications: Back pain with radiculopathy , Cervical myelopathy , Spinal stenosis of cervical region , Spinal stenosis, cervical region Take 1 tablet (500 mg) by mouth 4 times a day as needed for muscle spasms. 120 tablet 3 01/03/2025 5:52 PM EDT 10/26/2024 02/27/2025 Active Start: 02-22-2024 End: 02-26-2024 take 1 tablet by mouth four times daily as needed for muscle spasms chlorzoxazone (Parafon Forte) 500 mg tablet Indications: Cervical radiculopathy Take 1 tablet (500 mg) by mouth 4 times a day as needed for muscle spasms for up to 10 days. 30 tablet 02/22/2024 02/26/2024 Discontinued (Stop Taking at Discharge) cholecalciferol 0.125 mg ora l capsule (20 sources) Vitamin D Start: 10-23-2024 [facility] Start: 06-28-2024 take 1 capsule by mo [...] 10 mg, Oral, ONCE, 1 dose, On Wed06/15/24 at 2144 Start: 06-15-2024 End: 06-25-2024 take [...] End: 11-11-2024 take 1 tablet by mouth at bedtime as needed for muscle spasms Cyclobenzaprine 10 mg tablet Discontinued 10 mg PO AT BEDTIME NEEDED as needed for Muscle Spasm 10 0 April 10, 2023 7:28pm November 11, 2024 12:05am gabapentin 300 mg oral capsule (16 sources) Anti-epileptic Agent Start: 12-08-2024 take 1 capsule by mouth once 600 mg, oral, Once, On Wed12/08/24 at 1845, For 1 dose, Capsules may be opened and sprinkled on food (eg, applesauce, orange juice, pudding Start: 10-02-2024 End: 02-03-2025 take 1 tablet by mouth three times daily in the evening gabapentin (Neurontin) 600 mg tablet Indications: Herniated nucleus pulposus, L4-5 , Paresthesia of upper extremity , Spinal stenosis, cervical region , Back pain with radiculopathy , Cervical myelopathy Take 1 tablet (600 mg) by mouth 3 times a day. 90 tablet 2 01/03/2025 5:52 PM EDT 10/02/2024 02/03/2025 Active Start: 10-02-2024 End: 10-02-2024 take 2 [...] capsules by m outh every eight hours Start: 01-04-2024 take 1 capsule by mo [...] mg, IntraMU SCular, ONCE, 1 dose, On Wed02/08/24 at 2224, [...] Apply patch to left lower back. The can filling machine operator's recommendations for the number of patches that can be applied within a 24-hour period varies from 1 to 4 times daily and the duration of application varies from 8 to 24 hours; refer to the can filling machine operator's labeling for product-specific recommendations. Start: 12-12-2023 [...] respiratory rate is greater than 12 breaths/minute. [place] (Nk) (1 source) Start: 08-20-2021 [place] (Nk) Active August 20, 2021 12:00am oxygen (O2) therapy (1 source) Start: 02-24-2024 inhalation, Continuous - /, First dose on Angelita 02/24/24 at 1815, [...] June 15, 2021 9:05pm polyethylene glycol 3350 12520 mg powder for oral solution (1 source) Osmotic Laxative Start: 02-24-2024 17 g, oral, Daily, First dose on Wed02/24/24 at 1815, Bowel Regimen - for prevention of constipation. polyvinyl alcohol 0.014 ml/ml / povidone 6 mg/ml ophthalmic solution (1 source) Start: 02-24-2024 1 drop, Left Eye, As needed, dry eyes, Starting on Wed02/24/24 at 1908 promethazine (Phenergan) 6.25 mg in sodium chloride 0.9% 50 mL IV (1 source) Start: 02-24-2024 6.25 mg, intravenous, Administer over 15 Minutes, Once as needed, Nausea/vomiting, second line, Starting on Wed02/24/24 at 1745, For 1 dose sulfamethoxazole 800 mg / trimethoprim 160 mg oral tablet (7 sources) Dihydrofolate Reductase Inhibitor Antibacterial, Sulfonamide Antimicrobial [...] temperature applesauce. diazePAM 5 mg oral tablet (4 sources) Benzodiazepine Start: 01-04-2024 End: 10-23-2024 take [...] 1 dose LORazepam 0.5 mg oral tablet (10 sources) Benzodiazepine Start: 01-24-2020 End: 01-27-2020 take [...] Recovery (only) methocarbamol 500 mg oral tablet (6 sources) Muscle Relaxant Start: 07-13-2024 End: 07-13-2024 [...] if no PO med ordered., Starting on Wed02/24/24 at 1745 Start: 02-09-2024 End: 02-09-2024 inject 1 dose by intramuscular injection once 2 mg, IntraMUSCular, ONCE, 1 dose, On Wed02/09/24 at 0007 naproxen 500 mg oral tablet (20 sources) Nonsteroidal Anti-inflammatory Drug Start: 01-12-2024 End: [...] 60 mg, IntraMUSCular, ONCE, 1 dose, On 02/08/24 at 2224 Start: 01-29-2024 End: 01-29-2024 inject [...] for pain 5 mg, oral, Once, On 12/08/24 at 2030, For 1 dose, If ordered [...] Soft Tissue predniSONE 20 mg oral tablet (15 sources) Start: 12-08-2024 End: 12-08-2024 take 60 [...] mg tablet Discontinued 20 mg PO DAILY January 20, 2024 1:00am October 23, 2024 [...] oral fluids. tiZANidine 4 mg oral tablet (5 sources) Central alpha-2 Adrenergic Agonist Start: 01-29-2024 [...] First dose on Wed02/23/24 at 0100, Mini-Bag Plus/ADD-[place] bag, Dosing of this medication varies based on severity of illness. Does this patient have sepsis or concern for sepsis (probable or documented infection plus systemic manifestations of infection)? No, Suspected Indication (Select all that apply): Cellulitis, Skin and Soft Tissue, Type of Therapy: Empiric, Indications: Cellulitis, Skin and Soft Tissue Problems Active Problems Problem Classification Problem Date Documented Da te Episodic/Chronic Attention-deficit, conduct, and disruptive behavior disorders (17 sources) Attention deficit hyperactivity disorder; Translations: [Attention-deficit [...] deficiency, unspecified] Onset: 12-27-2022 12-27-2022 Chronic Other and unspecified benign neoplasm (1 source) Melanocytic nevus of trunk; Translations: [Benign neoplasm of penis] 12-17-2024 Episodic Other connective tissue disease (8 sources) Other symptoms and signs involving the musculoskeletal system; Translations: [Other musculoskeletal symptoms referable to limbs] Onset: 05-19-2024 05-19-2024 Episodic Other connective tissue disease (16 sources) Weakness of foot; Translations: [Other symptoms and signs involving the musculoskeletal system] Onset: 10-02-2024 10-02-2024 Episodic Other gastrointestinal disorders (16 sources) Neurogenic bowel; Translations: [Neurogenic bowel, not elsewhere classified] Onset: 10-02-2024 10-02-2024 Chronic Other gastrointestinal disorders (6 sources) Neurogenic bowel, not elsewhere classified; Translations: [Neurogenic bowel, not elsewhere classified] Onset: 10-02-2024 Chronic Other gastrointestinal disorders (1 source) Fecal incontinence with fecal urgency; Translations: [Full incontinence of feces] 01-29-2024 Episodic Other injuries and conditions due to external causes (11 sources) Abrasion and/or friction burn of multiple sites; Translations: [Unspecified multiple injuries, initial encounter] 01-25-2020 Episodic Other male genital disorders (1 source) Other specified disorders of penis; Translations: [Other specified disorders of penis] Onset: 12-23-2024 Chronic Other nervous system disorders (15 sources) Chronic pain; Translations: [Other chronic pain] Onset: 06-28-2024 06-28-2024 Chronic Other nervous system disorders (4 sources) Other chronic pain; Translations: [Other chronic pain] Onset: 06-28-2024 Chronic Other nervous system disorders (14 sources) Cervical myelopathy; Translations: [Disease of spinal cord, unspecified] Onset: 10-16-2024 07-19-2024 Chronic Other nervous system disorders (3 sources) Chronic low back pain; Translations: [Other chronic pain] 10-02-2024 Chronic Other nervous system disorders (7 sources) Spinal cord disease; Translations: [Disease of spinal cord, unspecified] 11-10-2024 Chronic Other nervous system disorders (12 sources) Disease of spinal cord, unspecified; Translations: [Disease of spinal cord, unspecified (Multi)] Onset: 10-16-2024 Chronic Other nervous system disorders (20 sources) Paresthesia of upper limb; Translations: [Paresthesia of skin] Onset: 12-27-2022 12-27-2022 Episodic Other nervous system disorders (4 sources) Paresthesia of skin; Translations: [Paresthesia of skin] Onset: 12-27-2022 Episodic Poisoning by other medications and drugs (4 sources) Overdose of opiate; Translations: [Poisoning by unspecified narcotics, accidental (unintentional), initial encounter] Onset: 10-27-2024 10-23-2024 Episodic Residual codes; unclassified (8 sources) Left against medical advice; Translations: [Procedure and treatment not carried out because of patient's decision for other reasons] 06-16-2022 Episodic Residual codes; unclassified (3 sources) Unresponsive ; Translations: [Transient alteration of [...] encounter] Onset: 08-28-2023 06-13-2019 Episodic Substance-related disorders (12 sources) Smoker; Translations: [Nicotine dependence, unspecified, uncomplicated] Onset: 09-07-2014 06-28-2024 Chronic Suicide and intentional self-inflicted injury (9 sources) Suicidal thoughts; Translations: [Suicidal ideations] 08-30-2021 [...] Unclassified (1 source) Speech finding 06-28-2024 Unclassified (1 source) Low back pain, unspecified; Translations: [Low back pain, unspecified] Onset: 07-13-2024 Unclassified (1 source) Autogenerated Problem Onset: 12-26-2024 12-26-2024 Unclassified (1 source) Patient has spine surgery Onset: 12-28-2024 12-28-2024 Past or Other Problems Problem Classification Problem Date Documented Da te Episodic/Chronic Acquired foot deformities (10 sources) Left foot drop; Translations: [Foot drop, left foot] Onset: 10-02-2024 10-02-2024 Episodic Diabetes mellitus without complication (20 sources) Prediabetes; [...] 06-28-2024 06-20-2019 Episodic Other connective tissue disease (20 sources) Pain in left lower limb; Translations: [Pain in left leg] Onset: 05-27-2017 06-28-2024 Episodic Other connective tissue disease (1 source) Myalgia; Translations: [Myalgia] Onset: 05-27-2017 Episodic Other connective tissue disease (20 sources) Spasm of cervical paraspinous muscle; Translations: [Other muscle spasm] Onset: 01-04-2024 03-26-2021 Episodic Other connective tissue disease (12 sources) Tendonitis of left wrist; Translations: [Other [...] Onset: 01-29-2024 Episodic Other nervous system disorders (13 sources) Speech finding; Translations: [Other speech disturbances] [...] 12-27-2022 Episodic Skin and subcutaneous tissue infections (6 sources) Abscess of left axilla; Translations: [Cutaneous abscess of left axilla] Onset: 02-22-2024 02-25-2024 Episodic Substance-related disorders (12 sources) Marijuana user; Translations: [Cannabis use, unspecified, uncomplicated] Onset: 09-04-2014 Resolved: 06-28-2024 06-28-2024 Episodic Superficial injury; contusion (20 sources) Contusion of chest; Translations: [Contusion of unspecified front wall of thorax, initial encounter] Onset: 06-28-2024 Resolved: 06-28-2024 01-25-2020 Episodic Syncope (20 sources) Syncope; Translations: [Syncope and collapse] Onset: [...] at neck level, init] Onset: 10-19-2017 Unclassified (11 sources) Onset: 07-19-2024 Resolved: 01-09-2025 07-19-2024 Viral infection (20 sources) Disease caused by 2019-nCoV; Translations: [COVID-19] Onset: 06-28-2024 Resolved: 06-28-2024 08-20-2021 Episodic Results Test Name Value Interpretation Reference Range Facility CBC W Auto Differential pane l (Bld)on 01-22-2025 Basophils (Bld) [#/Vol] 0.04 x10*3/uL Normal 0.00-0.10 [facility] Comment on above: Performed By: #### 5 7021-8 #### LINN MASON ([id number]) [facility] ([place]) [address] [place] [address] Basophils/100 WBC (Bld) 0.6 % Normal 0.0-2.0 [facility] Comment on above: Performed By: #### 5 7021-8 #### LINN MASON ([id number]) [facility] ([place]) [id number] [place] [address] Eosinophils (Bld) [#/Vol] 0.16 x10*3/uL Normal 0.00-0.70 [facility] Comment on above: Performed By: #### 5 7021-8 #### LINN MASON ([id number]) [facility] ([place]) [id number] [place] [address] Eosinophils/100 WBC (Bld) 2.3 % Normal 0.0-6.0 [facility] Comment on above: Performed By: #### 5 7021-8 #### LINN MASON ([id number]) [facility] ([place]) [address] [place] [address] Erythrocyte distribution width (RBC) [Ratio] 11.7 % Normal 11.5-14.5 [facility] Comment on above: Performed By: #### 5 7021-8 #### LINN MASON ([id number]) [facility] ([place]) [id number] [place] [address] Hematocrit (Bld) [Volume fraction] 50.0 % Normal 41.0-52.0 [facility] Comment on above: Performed By: #### 5 7021-8 #### LINN MASON ([id number]) [facility] ([place]) [id number] [place] [address] Hemoglobin (Bld) [Mass/Vol] 16.5 g/dL Normal 13.5-17.5 [facility] Comment on above: Performed By: #### 5 7021-8 #### LINN MASON ([id number]) [facility] ([place]) [id number] [place] [address] Immature granulocytes (Bld) [#/Vol] 0.02 x10*3/uL Normal 0.00-0.70 [facility] Comment on above: Performed By: #### 5 7021-8 #### LINN MASON ([id number]) [facility] ([place]) [address] [place] [address] Immature granulocytes/100 WBC (Bld) 0.3 % Normal 0.0-0.9 [facility] Comment on above: Result Comment: Tamiko ture Granulocyte Count (IG) includes promyelocytes, myelocytes and metamyelocytes but does not include bands. Percent differential counts (%) should be interpreted in the context of the absolute cell counts (cells/UL). Performed By: #### 5 7021-8 #### LINN MASON ([id number]) [facility] ([place]) [address] [place] [address] Lymphocytes (Bld) [#/Vol] 1.45 x10*3/uL Normal 1.20-4.80 [facility] Comment on above: Performed By: #### 5 7021-8 #### LINN MASON ([id number]) [facility] ([place]) [address] [place] [address] Lymphocytes/100 WBC (Bld) 20.9 % Normal 13.0-44.0 [facility] Comment on above: Performed By: #### 5 7021-8 #### LINN MASON ([id number]) [facility] ([place]) [address] [place] [address] MCH (RBC) [Entitic mass] 31.9 pg Normal 26.0-34.0 [facility] Comment on above: Performed By: #### 5 7021-8 #### LINN MASON ([id number]) [facility] ([place]) [address] [place] [address] MCHC (RBC) [Mass/Vol] 33.0 g/dL Normal 32.0-36.0 [facility] Comment on above: Performed By: #### 5 7021-8 #### LINN MASON ([id number]) [facility] ([place]) [address] [place] [address] MCV (RBC) [Entitic vol] 97 fL Normal 80-100 [facility] Comment on above: Performed By: #### 5 7021-8 #### LINN MASON ([id number]) [facility] ([place]) [address] [place] [address] Monocytes (Bld) [#/Vol] 0.71 x10*3/uL Normal 0.10-1.00 [facility] Comment on above: Performed By: #### 5 7021-8 #### LINN MASON ([id number]) [facility] ([place]) [address] [place] [address] Monocytes/100 WBC (Bld) 10.2 % Normal 2.0-10.0 [facility] Comment on above: Performed By: #### 5 7021-8 #### LINN MASON ([id number]) [facility] ([place]) [address] [place] [address] Neutrophils (Bld) [#/Vol] 4.57 x10*3/uL Normal 1.20-7.70 [facility] Comment on above: Result Comment: Perc ent differential counts (%) should be interpreted in the context of the absolute cell counts (cells/uL). Performed By: #### 5 7021-8 #### LINN MASON ([id number]) [facility] ([place]) [address] [place] [address] Neutrophils/100 WBC (Bld) 65.7 % Normal 40.0-80.0 [facility] Comment on above: Performed By: #### 5 7021-8 #### LINN MASON ([id number]) [facility] ([place]) [address] [place] [address] Nucleated RBC/100 WBC (Bld) [Ratio] 0.0 /100 WBCs Normal 0.0-0.0 [facility] Comment on above: Performed By: #### 5 7021-8 #### LINN MASON ([id number]) [facility] ([place]) [address] [place] [address] Platelets (Bld) [#/Vol] 237 x10*3/uL Normal 150-450 [facility] Comment on above: Performed By: #### 5 7021-8 #### LINN MASON ([id number]) [facility] ([place]) [address] [place] [address] RBC (Bld) [#/Vol] 5.17 x10*6/uL Normal 4.50-5.90 [facility] Comment on above: Performed By: #### 5 7021-8 #### LINN MASON ([id number]) [facility] ([place]) [address] [place] [address] WBC (Bld) [#/Vol] 7.0 x10*3/uL Normal 4.4-11.3 [facility] Comment on above: Performed By: #### 5 7021-8 #### LINN MASON ([id number]) [facility] ([place]) [id number] [place] [address] Coagulation tissue factor in ducedon 01-22-2025 PT Coag (PPP) [Time] 11.8 s Normal 9.8-12.4 [facility] Comment on above: Performed By: #### 5 902-2 #### LINN MASON ([id number]) [facility] ([place]) [address] [place] [address] Comprehensive metabolic 2000 panelon 01-22-2025 Albumin BCP dye [Mass/Vol] 4.7 g/dL Normal 3.4-5.0 [facility] Comment on above: Performed By: #### 2 4323-8 #### LINN MASON ([id number]) [facility] ([place]) [address] [place] [address] ALP [Catalytic activity/Vol] 82 U/L Normal 33-120 [facility] Comment on above: Performed By: #### 2 4323-8 #### LINN MASON ([id number]) [facility] ([place]) [address] [place] [address] ALT With P-5'-P [Catalytic activity/Vol] 12 U/L Normal 10-52 [facility] Comment on above: Result Comment: Elvi ents treated with Sulfasalazine may generate falsely decreased results for ALT. Performed By: #### 2 4323-8 #### LINN MASON ([id number]) [facility] ([place]) [address] [place] [address] Anion gap [Moles/Vol] 14 mmol/L Normal 10-20 [facility] Comment on above: Performed By: #### 2 4323-8 #### LINN MASON ([id number]) [facility] ([place]) [address] [place] [address] AST With P-5'-P [Catalytic activity/Vol] 14 U/L Normal 9-39 [facility] Comment on above: Performed By: #### 2 4323-8 #### LINN MASON ([id number]) [facility] ([place]) [address] [place] [address] Bilirubin [Mass/Vol] 0.6 mg/dL Normal 0.0-1.2 [facility] Comment on above: Performed By: #### 2 4323-8 #### LINN MASON ([id number]) [facility] ([place]) [address] [place] [address] Calcium [Mass/Vol] 10.1 mg/dL Normal 8.6-10.3 [facility] Comment on above: Performed By: #### 2 4323-8 #### LINN MASON ([id number]) [facility] ([place]) [address] [place] [address] Chloride [Moles/Vol] 103 mmol/L Normal 98-107 [facility] Comment on above: Performed By: #### 2 4323-8 #### LINN MASON ([id number]) [facility] ([place]) [address] [place] [address] CO2 [Moles/Vol] 26 mmol/L Normal 21-32 [facility] Comment on above: Result Comment: Bica rbonate results may be falsely elevated when Lactate Dehydrogenase (LDH) concentrations exceed 2,000 U/L due to a temporary reagent manufacturing issue. If significantly elevated LDH levels are suspected, interpret bicarbonate results with caution, correlate with the patient's clinical status, and consider confirming CO2 values using a blood gas analyzer. Performed By: #### 2 4323-8 #### LINN MASON ([id number]) [facility] ([place]) [address] [place] [address] Creatinine [Mass/Vol] 1.07 mg/dL Normal 0.50-1.30 [facility] Comment on above: Performed By: #### 2 4323-8 #### LINN MASON ([id number]) [facility] ([place]) [id number] [place] [address] Glomerular filtration rate 88 mL/min/1.73m*2 Normal >60 [facility] Comment on above: Result Comment: Calc ulations of estimated GFR are performed using the 2020 CKD-EPI Study Refit equation without the race variable for the IDMS-Traceable creatinine methods. https://jasn.asnjournals.org/content/early/ASN.943061 2170 Performed By: #### 2 4323-8 #### LINN MASON ([id number]) [facility] ([place]) [address] [place] [address] Glucose [Mass/Vol] 103 mg/dL High 74-99 [facility] Comment on above: Performed By: #### 2 4323-8 #### LINN MASON ([id number]) [facility] ([place]) [address] [place] [address] Potassium [Moles/Vol] 4.3 mmol/L Normal 3.5-5.3 [facility] Comment on above: Performed By: #### 2 4323-8 #### LINN MASON ([id number]) [facility] ([place]) [address] [place] [address] Protein [Mass/Vol] 7.3 g/dL Normal 6.4-8.2 [facility] Comment on above: Performed By: #### 2 4323-8 #### LINN MASON ([id number]) [facility] ([place]) [address] [place] [address] Sodium [Moles/Vol] 139 mmol/L Normal 136-145 [facility] Comment on above: Performed By: #### 2 4323-8 #### LINN MASON ([id number]) [facility] ([place]) [address] [place] [address] Urea nitrogen [Mass/Vol] 15 mg/dL Normal 6-23 [facility] Comment on above: Performed By: #### 2 4323-8 #### LINN MASON ([id number]) [facility] ([place]) [address] [place] [address] ECG 12-LEADon 01-22-2025 ECG 12-LEAD Ventricular Rate 66 Atrial Rate 66 P-R Interval 128 QRS Duration 88 Q-T Interval 384 QTC Calculation(Bazett) 402 P Daisy 54 R Daisy 66 T Daisy 56 QRS Count 11 Q Onset 221 P Onset 157 P Offset 206 T Offset 413 QTC Fredericia 396 Diagnosis Normal sinus rhythm Normal ECG When compared with ECG of 23-FEB-2024 14:12, No significant change was found Normal [facility] HbA1c (Bld) [Mass fraction]o n 01-22-2025 Average glucose Estimated from glycated hemoglobin (Bld) [Mass/Vol] 105 mg/dL Normal Not Established [facility] Comment on above: Order Comment: Diagn osis of Diabetes-Adults Non-Diabetic: < or = 5.6% Increased risk for developing diabetes: 5.7-6.4% Diagnostic of diabetes: > or = 6.5% Performed By: #### 4 548-4 #### SERENE Sandra ([id number]) [facility] ([facility]) [id number] [place] [address] Hemoglobin A1c/Hemoglobin.to ashley 01-22-2025 HbA1c (Bld) [Mass fraction] 5.3 % Normal See comment [facility] Comment on above: Order Comment: Diagn osis of Diabetes-Adults Non-Diabetic: < or = 5.6% Increased risk for developing diabetes: 5.7-6.4% Diagnostic of diabetes: > or = 6.5% Performed By: #### 4 548-4 #### SERENE Sandra ([id number]) [facility] ([facility]) [address] [place] [address] PT Coag (PPP) [Time]on 01-22 INR Coag (PPP) [Relative time] 1.1 Normal 0.9-1.1 [facility] Comment on above: Performed By: #### 5 902-2 #### LINN MASON ([id number]) [facility] ([place]) [address] [place] [address] Staphylococcus aureus.methic illin resistant isolateon 01-22-2025 MRSA isol Org specific cx Ql (Nose) Test: Staphylococcus aureus/MRSA colonization, Culture Specimen Source: Nares/Axilla/Groin Specimen Type: Swab Specimen Date: 01/22/2025 1252 Result Date: 01/24/2025 0017 Result Status: Final result Abnormal: No Resulting Lab: [facility] [address] [place] [address] CULTURE No Staphylococcus aureus isolated Normal [facility] Comment on above: Performed By: #### 5 2969-3 #### SERENE Sandra ([id number]) [facility] ([facility]) [address] [place], [place] [id number] Emergency Department Summary on 01-14-2025 Emergency Department Summary [facility] Medical Records Department [address] [place] [address] Emergency Department Summary 01/14/25 MR#: [id number] Acct: [id number] Name: HARMAN JAMIL Rep #: [id number] : 1980 44 From: Neeraj Antonio MD PCP: Dr. Josafat Tinoco, Status:REG ER Location: ED HPI History of Present Illness Chief Complaint: Lower Extremity Injury Detail of Chief Complaint: Lower back pain left greater than right status post fall Informant: patient Onset/Context/Timing Onset: Today and Hours Mechanism/Context: Blunt Injury and Fall Location of pain/injuries: - (Lower back bilaterally left greater than right) Quality of Pain: Dull and Aching Location: Left paralumbar radiating anteriorly to the mid left thigh Current Severity: Mild Maximum Severity: Severe Worsened by: Movement Relieved by: Nothing Associated Symptoms Associated Symptoms: Negative for Parasthesias, Weakness, Loss of function, Inability to ambulate, Loss of consciousness or Amnesia Narrative Narrative: Patient is a 44-year-old male. He has history of neck and back surgery. He is scheduled for L5-S1 laminectomy and fusion. He has a foot drop on the left side. This was first noted December 2023. Patient denies bowel bladder dysfunction. Patient denies buckling of his knees going up or down steps. Patient denied head trauma. Nuys neck pain. He has no new symptoms other than the low back pain that is greater on the left compared to the right Prior similar symptoms: Yes Recent Illness/Hospitalization: No PFSH PFSH Medical History ADHD Sciatica Cervical radiculopathy Home [...] / Time No Known Allergies Allergy Verified 01/14/25 16:58 Surgical History Hx of tonsillectomy Previous back surgery Social History household members: none housing: house Smoking Status: Current every day smoker tobacco type: cigarettes alcohol intake: current alcohol intake frequency: other substance use type: marijuana ROS ROS ED Constitutional Constitutional ED: Denies chills, fever(s), subjective, sweats or weight loss Gastrointestinal Gastrointestinal: Denies abdominal pain, nausea or vomiting Musculoskeletal Musculoskeletal: Reports back pain; Denies arthralgias, myalgias or neck pain Integumentary Denies abscess, Abrasions or rash Neurologic Neurologic: Reports weakness; Denies paresthesias Hematologic/Lymphatic Hematologic/Lymphatic: Denies easy bleeding or easy bruising EXAM Physical Exam Const Vital Signs: 01/14/25 16:58 01/14/25 18:58 Temperature 97.2 F L Temperature Source Temporal Pulse Rate 99 80 Respiratory Rate 20 H Blood Pressure 198/110 H 131/99 H Blood Pressure Mean 139 109 Pulse Ox 100 100 Oxygen Delivery Method Room Air Positive well nourished and well developed General Appearance ED: well developed and NAD HEENT atraumatic; Negative for trauma Eyes PERRL and EOMs intact bilaterally Neck full ROM Resp normal respiratory effort Cardio regular rhythm Rate: regular rate GI normal to inspection, nondistended, normoactive bowel sounds, non-tender, non-distended and no masses Back/Spine normal to inspection; Negative for no thoracic nor lumbar tenderness Back/Spine Narrative: Paralumbar discomfort on the left predominantly. There is no midline tenderness. Straight leg test is negative bilaterally. Patient does have a foot drop on the left. Sensation L3-S1 is normal on the right side. He has altered sensation L4 dermatome on the left. This is not consistent with the lesion that he is noted to have on MRI and reason for surgery. DP PT pulse palpable. Patella and ankle reflex are 3+ and symmetric. EHL is intact bilaterally. Extremity normal to inspection; Negative for full ROM Extremity Narrative: Foot drop on the left Neuro oriented x3, CN's II-XII intact bilaterally, moves all extremities, No no focal motor deficits and No no sensory deficits noted Deep Tendon Reflexes: Rt Patellar (L4): 3+, Lt Patellar (L4): 3+, Rt Ankle (S1): 3+ and Lt Ankle (S1): 3+ Deep Tendon Reflexes Back: Rt Patellar (L4): 3+, Lt Patellar (L4): 3+, Rt Ankle (S1): 3+ and Lt Ankle (S1): 3+ Plantar Reflex: Downgoing: bilate (more content not included)... Normal [facility] M8200.2203on 12-18-2024 M8200.2203 Pending Chlamydia Trachomatis PCR NEGATIVE for Chlamydia trachomatis N. gonorrhoeae PCR Negative for N. gonorrhoeae Normal [facility] Comment on above: Performed By: #### M 8200.2203, L400.0001 #### [facility] [address] [place], [address] Bilirubin Test strip Ql (U)O rdered By: Nathalie Manning on 12-17-2024 Bilirubin Ql (U) Negative Negative [facility] Emergency Department Summary on 12-17-2024 Emergency Department Summary [facility] Medical Records Department [address] [place] [address] Emergency Department Summary 12/17/24 MR#: [id number] Acct: [id number] Name: HARMAN JAMIL Rep #: [id number] : 1980 44 From: Nathalie Manning DO PCP: Dr. Josafat Tinoco DO Status:DEP ER Location: ED HPI History of Present Illness Chief Complaint: Male Pain/Injury Informant: patient Narrative Narrative: Patient is a 44-year-old male with history of spinal surgeries with ongoing deficits (left foot drop and sensation/temperature deficits on the right side up to his chest) presenting for concern of HPV infection. Patient states that he has been celibate for 33 months but is going into a new relationship. He has noticed some spots on the shaft of his penis and at the base and was concerned that he could have HPV and wanted to be evaluated before he advanced his current relationship. He is not sure how long they have been there but notes that they have been there for some time. 1 at the base of his penis seems raised which is different than his other ones and that concerned him he denies any associated pain, dysuria or penile discharge. Denies any testicular/scrotal pain or swelling. Had a possible exposure to HPV 5 years ago. Does note that he chronically masturbates approximately 7 times a day. PFSH [facility] Medical History ADHD Sciatica Cervical radiculopathy Home [...] / Time No Known Allergies Allergy Verified 12/17/24 21:48 Family History no significant family his Surgical History Hx of tonsillectomy Previous back surgery Social History household members: none Smoking Status: Current every day smoker tobacco type: cigarettes alcohol intake: current alcohol intake frequency: other substance use type: marijuana ROS ROS ED Constitutional Constitutional ED: Denies chills or fever(s) Genitourinary Genitourinary ED: Denies dysuria, hematuria or urinary frequency Integumentary Reports rash and other Details: Brown bumps on the shaft of the penis and at the base Neurologic Neurologic: Reports other Details: Chronic left foot drop and paresthesias to the right side of the body???no acute change Psychiatric Psychiatric: Reports anxiety; Denies depression EXAM Physical Exam Const Vital Signs: 12/17/24 21:47 Temperature 96 F L Temperature Source Temporal Pulse Rate 80 Respiratory Rate 18 Blood Pressure 145/96 H Blood Pressure Mean 112 Pulse Ox 100 Positive well nourished and well developed General Appearance ED: well developed and NAD HEENT Reports moist mucous membranes Neck supple Resp normal respiratory effort and clear to auscultation bilaterally Cardio regular rate and regular rhythm GI non-tender and non-distended Narrative: Chaperoned exam performed???normal external genitalia. Circumcised. Patient has some scattered brown slightly oblong raised lesions on the shaft of the penis at the base more consistent with nevi. There is some slight scarring/pockets of the right groin consistent with prior ingrown hairs/folliculitis Extremity normal to inspection Neuro oriented x3 Sensorium / Orientation: alert Psych Mood Affect: anxious Thought Process: normal thought process Thought Content: normal thought content Skin Skin Narrative: See exam MDM MDM MDM Narrative Medical decision making narrative: Patient is evaluated for lesions on his penis and concern for possible STI. Differential includes is not limited to nevi, HPV and HSV. Physical exam is highly consistent with nevi. Per his request will test urine for GC/chlamydia. Is offered HIV and syphilis testing but patient declines. He is otherwise well-appearing albeit anxious. Is given reassurance. Encouraged follow-up with family doctor and/or dermatology. Given return precautions. Will be contacted with GC/committee results. Patient discharged home. Contacted as his GC chlamydia test were negative. Urinalysis not consistent with infection Lab Data Labs: Laboratory Results - last 24 hr 12/17/24 22:45 Urine Color Yellow Urine Clarity Sl. Cloudy Urine pH 5.0 Ur Specifi (more content not included)... Normal [facility] Ketones Test strip Ql (U)Ord ered By: Nathalie Manning on 12-17-2024 Ketones Ql (U) Negative Negative [facility] Microscopic analysis of urin e for red blood cells (RBC)Ordered By: Nathalie Manning on 12-17-2024 Microscopic analysis of urine for red blood cells (RBC) 0 SEEN /hpf 0-5 [facility] Mucus LM Ql (Urine sed)Order ed By: Nathalie Manning on 12-17-2024 Mucus Ql (Urine sed) 0 SEEN /hpf [facility] Nitrite Test strip Ql (U)Ord ered By: Nathalie Manning on 12-17-2024 Nitrite Ql (U) Negative Negative [facility] Protein Test strip Ql (U)Ord ered By: Nathalie Manning on 12-17-2024 Protein Ql (U) 30 mg/dl High Negative [facility] Squamous epithelial cells de tection in urine sediment by light microscopyOrdered By: Nathalie Manning on 12-17-2024 Epithelial cells.squamous LM Ql (Urine sed) 0 SEEN /hpf 0-5 [facility] Urinalysis, Completeon 12-17 BACTERIA 0 SEEN Normal None Seen [facility] Comment on above: Order Comment: CLEAN CATCH Performed By: #### M 8200.2203, L400.0001 #### [facility] [address] [place], [address] EPI,SQUAMOUS 0 SEEN Normal 0-5 [facility] Comment on above: Order Comment: CLEAN CATCH Performed By: #### M 8200.2203, L400.0001 #### [facility] [address] [place], [address] Mucus Ql (Urine sed) 0 SEEN Normal [facility] Comment on above: Order Comment: CLEAN CATCH Performed By: #### M 8200.2203, L400.0001 #### [facility] [address] [place], [address] RBC 0 SEEN Normal 0-5 [facility] Comment on above: Order Comment: CLEAN CATCH Performed By: #### M 8200.2203, L400.0001 #### [facility] [address] [place], [address] WBC 0 SEEN Normal 0-5 [facility] Comment on above: Order Comment: CLEAN CATCH Performed By: #### M 8200.2203, L400.0001 #### [facility] [address] [place], [address] Urine clarityOrdered By: Delma Manning on 12-17-2024 Clarity (U) Sl. Cloudy Clear [facility] Urine color determinationOrd ered By: Nathalie Manning on 12-17-2024 Color (U) Yellow Yellow [facility] Urine glucose detectionOrder ed By: Nathalie Manning on 12-17-2024 Glucose Ql (U) Normal mg/dl Normal [facility] Urine leukocyte esterase det ection by dipstickOrdered By: Nathalie Manning on 12-17-2024 Leukocyte esterase Test strip Ql (U) Negative Negative [facility] Urine pHOrdered By: Nathalie bryson on 12-17-2024 pH (U) 5.0 [pH] 5.0 - 8.0 [facility] Urine sediment bacteria coun t by microscopy (number/high power field)Ordered By: Nathalie Manning on 12-17-2024 Bacteria LM.HPF (Urine sed) [#/Area] 0 /[HPF] None Seen [facility] Urine specific gravity measu rementOrdered By: Nathalie Manning on 12-17-2024 Specific gravity (U) [Rel density] 1.025 1.002-1.030 [facility] Urine urobilinogen measureme ntOrdered By: Nathalie Manning on 12-17-2024 Urobilinogen Ql (U) Normal mg/dl Normal [facility] White blood cell countOrdere d By: Nathalie Manning on 12-17-2024 White blood cell count 0 SEEN /hpf 0-5 [facility] CT LUMBAR SPINE WO IV CONTRA STon 12-08-2024 CT LUMBAR SPINE WO IV CONTRAST Interpreted By: Nick Carrizales, STUDY: CT LUMBAR SPINE WO IV CONTRAST; 12/08/2024 7:15 pm INDICATION: Signs/Symptoms:fall, low back pain. COMPARISON: None. ACCESSION NUMBER(S): [id number] ORDERING CLINICIAN: PARRISH TALBERT TECHNIQUE: Contiguous axial [...] Nick Carrizales 12/08/2024 7:53 PM Dictation workstation: [id number] [facility] CT Lumbar spine WO contrasto n [...] Nick Carrizales 12/08/2024 7:53 PM Dictation workstation: [id number] [facility] Interpreted By: Nick Bui, STUDY: CT LUMBAR SPINE WO IV CONTRAST; 12/08/2024 7:15 pm INDICATION: Signs/Symptoms:fall, low back pain. COMPARISON: None. ACCESSION NUMBER(S): [id number] ORDERING CLINICIAN: PARRISH TALBERT TECHNIQUE: Contiguous axial [...] left greater than right neural foramen stenosis. [facility] Nick Carrizales MD - 12/08/2024 Interpreted By: Nick Carrizales, STUDY: CT LUMBAR SPINE WO IV CONTRAST; 12/08/2024 7:15 pm INDICATION: Signs/Symptoms:fall, low back pain. COMPARISON: None. ACCESSION NUMBER(S): [id number] ORDERING CLINICIAN: PARRISH TALBERT TECHNIQUE: Contiguous axial [...] Nick Carrizales 12/08/2024 7:53 PM Dictation workstation: [id number] [facility] Work Phone: Radiology Study observation (narrative) [facility] Work Phone: CT Lumbar spine WO contrastO rdered By: Nick Carrizales on 12-08-2024 [facility] Work Phone: MR CERVICAL SPINE WO IV CONT RASTon 12-08-2024 MR CERVICAL SPINE WO IV CONTRAST Interpreted By: Isaiah Dixon, STUDY: MR CERVICAL SPINE WO IV CONTRAST; MR THORACIC SPINE WO IV CONTRAST; ; 12/08/2024 6:34 pm; 12/08/2024 5:48 pm INDICATION: Signs/Symptoms:myelopathy. ,G95.9 Disease of spinal cord, unspecified (Multi) COMPARISON: MRI cervical and thoracic spine from 02/17/2024. ACCESSION NUMBER(S): [id number]; [id number] ORDERING CLINICIAN: SHA FOSTER TECHNIQUE: MRI of [...] detailed above. This study was interpreted at [facility]. MACRO: None Signed by: Isaiah Dixon 12/11/2024 2:03 PM Dictation workst (more content not included)... Normal [facility] Comment on above: Order Comment: RASHAWN HURTADO MR THORACIC SPINE WO IV CONT Samuel 12-08-2024 MR THORACIC SPINE WO IV CONTRAST Interpreted By: Isaiah Dixon, STUDY: MR CERVICAL SPINE WO IV CONTRAST; MR THORACIC SPINE WO IV CONTRAST; ; 12/08/2024 6:34 pm; 12/08/2024 5:48 pm INDICATION: Signs/Symptoms:myelopathy. ,G95.9 Disease of spinal cord, unspecified (Multi) COMPARISON: MRI cervical and thoracic spine from 02/17/2024. ACCESSION NUMBER(S): [id number]; [id number] ORDERING CLINICIAN: SHA FOSTER TECHNIQUE: MRI of [...] detailed above. This study was interpreted at [facility]. MACRO: None Signed by: Isaiah Dixon 12/11/2024 2:03 PM Dictation workst (more content not included)... Normal [facility] Comment on above: Order Comment: RASHAWN Vidal EAD Emergency Department Summary on 11-11-2024 Emergency Department Summary [facility] Medical Records Department [address] [facility] [place] [address] Emergency Department Summary 11/11/24 MR#: [id number] Acct: [id number] Name: HARMAN JAMIL Rep #: [id number] : 1980 44 From: Eduardo Mcdonald DO PCP: Dr. Josafat Tinoco DO Status:REG ER Location: ED HPI History [...] Psych: Cooperative, appropriate mood and affect PFSH [facility] Medical History ADHD Sciatica Cervical radiculopathy Home [...] with IM (more content not included)... Normal [facility] Bedside Glucoseon 10-25-2024 FINGERSTICK GLU 105 mg/dL Normal 74-106 [facility] Comment on above: Result Comment: YAJAIRA LONDONO OF PATIENT CARE PER NURSING PROTOCOL Performed By: #### L 501.080 #### [facility] [address] [place], [address] 12 Lead EKGon 10-23-2024 12 Lead EKG [facility] Cardiovascular Services [address] [place] [address] 12 Lead EKG 10/23/24 1541 MR#: [id number] Acct: [id number] Name: HARMAN JAMIL Rep #: [id number] : 1980 44 From: Kris Hnesley MD Attending Dr: Status: DEP ER Ordering [...] Normal ECG Confirmed by Kris Hensley ([id number]), web editor DEJAH FRANCISCO ([id number]) on 10/24/2024 11:41:15 AM Referred By: Confirmed By: Kris Hensley 10/24/24 1141 Date Kris Hensley MD CC: Dr. Josafat Tinoco DO; Dr. Caleb Smith DO Signed Normal [facility] Emergency Department Summary on 10-23-2024 Emergency Department Summary [facility] Medical Records Department [address] [place] [address] Emergency Department Summary 10/23/24 MR#: [id number] Acct: [id number] Name: HARMAN JAMIL Rep #: [id number] : 1980 44 From: Caleb Smith DO PCP: Dr. Josafat Tinoco DO Status:REG ER Location: ED ADDENDUM by Dr. Caleb Smith DO on 10/23/24 at 1603 Patient's EKG reviewed and showed sinus rhythm with a rate of 70 bpm. QTc was noted to be 437 with a normal NE interval 144. 10/23/24 1603 Cosigner Signature (if [...] brought him in here to be evaluated. [facility] Medical History ADHD Sciatica Cervical radiculopathy Home [...] states that earlier today he went to [facility] for a psych eval and he states that this appointment went well. He states that he stopped at a friend's house and then was on his way to see his mother and he notes that he ended up here and is not sure what happened. He denies any history of drug abuse. Patient's brkrb-iw-rfmd glucose was noted to be 105. Patient [...] there is (more content not included)... Normal [facility] deOrdered By: Caleb Smith on 10-23-2024 Glucose [Mass/Vol] 105 mg/dL 74-106 [facility] Comment on above: MANAGEMENT OF [...] COMPARISON: MR lumbar spine 02/18/2024. ACCESSION NUMBER(S): [id number] ORDERING CLINICIAN: APOORVA SERELS TECHNIQUE: Multiplanar, multisequence imaging obtained through the [...] is mild central canal stenosis. There is ciac-bi-vypmpemi left and minimal right neural foraminal narrowing. [...] study was interpreted at [facility], [place], [place]. MACRO: None Signed by: Eufemia Khan 10/13/2024 12:40 PM Dictation workstation: [id number] [facility] CBC W Auto Differential pane l (Bld)on 07-14-2024 Basophils (Bld) [#/Vol] 0.1 10*3/uL 0.0 - 0.2 K/uL [facility] Basophils/100 WBC (Bld) 0.6 % [facility] Eosinophils (Bld) [#/Vol] 0.7 10*3/uL 0.0 - 0.7 K/uL [facility] Eosinophils/100 WBC (Bld) 5.2 % [facility] Erythrocyte distribution width (RBC) [Ratio] 12 % 11.5 - 14.5 % [facility] Hematocrit (Bld) [Volume fraction] 48.2 % 42.0 - 52.0 % [facility] Hemoglobin (Bld) [Mass/Vol] 16.1 g/dL 14.0 - 18.0 g/dL [facility] Interpretation and review of laboratory results Abnormal [facility] Lymphocytes (Bld) [#/Vol] 4 10*3/uL 1.0 - 4.8 K/uL [facility] Lymphocytes/100 WBC (Bld) 31.1 % [facility] MCH (RBC) [Entitic mass] 31.2 pg 27.0 - 31.3 pg [facility] MCHC (RBC) [Mass/Vol] 33.4 % 33.0 - 37.0 % [facility] MCV (RBC) [Entitic vol] 93.4 fL High 79.0 - 92.2 fL [facility] Monocytes (Bld) [#/Vol] 1.1 10*3/uL High 0.2 - 0.8 K/uL [facility] Monocytes/100 WBC (Bld) 8.5 % [facility] Neutrophils (Bld) [#/Vol] 7.1 10*3/uL High 1.4 - 6.5 K/uL [facility] Platelets (Bld) [#/Vol] 312 10*3/uL 130 - 400 K/uL [facility] RBC (Bld) [#/Vol] 5.16 10*6/uL [facility] [place] Seg[facility] neutrophils/100 WBC (Bld) 54.3 % [facility] WBC (Bld) [#/Vol] 13 10*3/uL High 4.8 - 10.8 K/uL [facility] CT Kidney WO contraston 05-0 1. No acute intra-abdominal or pelvic process. No urinary calculi or obstruction. 2. Focal moderate disc degenerative change L4-L5. [facility] RAD[facility] EXAMINATION: CT OF THE ABDOMEN [...] No mass or adenopathy. No bladder calculi. Peritoneum/Retroperitoneum : Negative. Bones/Soft Tissues: No acute osseous or body wall soft tissue abnormalities. Focal moderate disc degenerative change L4-L5. [facility] Smith Bullock MD - 07/14/2024 [...] No mass or adenopathy. No bladder calculi. Peritoneum/Retroperitoneum : Negative. Bones/Soft Tissues: No acute osseous or body wall soft tissue abnormalities. Focal moderate disc degenerative change L4-L5. IMPRESSION: 1. No acute intra-abdominal or pelvic process. No urinary calculi or obstruction. 2. Focal moderate disc degenerative change L4-L5. [facility] [employer] CT Kidney WO contrastOrdered By: Smith Bullock on 07-14-2024 [facility] [employer] Work Phone: UR Drugs of Abuse Panelon Drug Screen Comment see below Normal [facility] Comment on above: Result Comment: This method is a screening test to detect only these drug classes as part of a medical workup. Confirmatory testing by another method should be ordered if clinically indicated. Performed By: #### U DRGS #### [facility] [address] [facility] [address] UR Cannabinoids Screen Positive Abnormal Negative < [facility] Comment on above: Performed By: #### U DRGS #### [facility] [address] [place] [address] UR Fentanyl Screen Negative Normal Negative < [facility] Comment on above: Performed By: #### U DRGS #### [facility] [address] [place] [address] UR Amphetamines Screen Negative Normal Negative < [facility] Comment on above: Performed By: #### U DRGS #### [facility] [address] [place] [address] UR Barbiturates Screen Negative Normal Negative < [facility] Comment on above: Performed By: #### U DRGS #### [facility] [address] [place] [address] UR Benzo Screen Negative Normal Negative < [facility] Comment on above: Performed By: #### U DRGS #### [facility] [address] [place] [address] UR Cocaine Screen Negative Normal Negative < [facility] Comment on above: Performed By: #### U DRGS #### [facility] [address] [place] [address] UR Methadone Screen Negative Normal Negative < [facility] Comment on above: Performed By: #### U DRGS #### [facility] [address] [place] [address] UR Opiates Screen Negative Normal Negative < [facility] Comment on above: Performed By: #### U DRGS #### [facility] [address] [place] [address] UR Oxycodone Screen Negative Normal Negative < [facility] Comment on above: Performed By: #### U DRGS #### [facility] [address] [place] [address] UR PCP Screen Negative Normal Negative < [facility] Comment on above: Performed By: #### U DRGS #### [facility] [address] [place] [address] UR Propoxyphene Screen Negative Normal Negative < [facility] Comment on above: Performed By: #### U DRGS #### [facility] [address] [place] [address] Urinalysis with Reflex to Cu ltureon 07-14-2024 Glucose Test strip (U) [Mass/Vol] Negative Negative mg/dL [facility] Ketones (U) [Mass/Vol] Negative Negative mg/dL [facility] Protein (U) [Mass/Vol] Negative Negative mg/dL [facility] Urine Reflex to Culture Not Indicated [facility] Urobilinogen Qn (U) 0.2 NINF [facility] Urinalysis, reflex to cultur stephen 07-14-2024 Bilirubin Ql (U) Negative Normal Negative [facility] Comment on above: Performed By: #### C BCWD #### [facility] [address] [place] [address] Clarity (U) Clear Normal Clear [facility] Comment on above: Performed By: #### C BCWD #### [facility] [address] [place] [address] Color (U) Yellow Normal Straw/Telfair [facility] Comment on above: Performed By: #### C BCWD #### [facility] [address] [place] [address] Glucose Ql (U) Negative Normal Negative [facility] Comment on above: Performed By: #### C BCWD #### [facility] [address] [place] [address] Hemoglobin Ql (U) Negative Normal Negative [facility] Comment on above: Performed By: #### C BCWD #### [facility] [address] [place] [address] Ketones Ql (U) Negative Normal Negative [facility] Comment on above: Performed By: #### C BCWD #### [facility] [address] [place] [address] Leukocyte esterase Test strip Ql (U) Negative Normal Negative [facility] Comment on above: Performed By: #### C BCWD #### [facility] [address] [place] [address] Nitrite Ql (U) Negative Normal Negative [facility] Comment on above: Performed By: #### C BCWD #### [facility] [address] [place] [address] pH (U) 6.5 [pH] Normal 5.0-9.0 [facility] Comment on above: Performed By: #### C BCWD #### [facility] [address] [place] [address] Protein Ql (U) Negative Normal Negative [facility] Comment on above: Performed By: #### C BCWD #### [facility] [address] [place] [address] Specific gravity (U) [Rel density] 1.026 Normal 1.005-1.03 [facility] Comment on above: Performed By: #### C BCWD #### [facility] [address] [place] [address] Urine Reflexed to Culture Not Indicated Normal [facility] Comment on above: Performed By: #### C BCWD #### [facility] [address] [place] [address] Urobilinogen Qn (U) 0.2 {Bassam'U}/dL Normal < 2.0 [facility] Comment on above: Performed By: #### C BCWD #### [facility] [address] [place] [address] Urine Drug Screenon 07-15-19 25 Amphetamines Ql (U) Negative Negative <1000 ng/mL [facility] Barbiturates Screen Ql (U) Negative Negative < 200 ng/mL [facility] Benzodiazepines Ql (U) Negative Negative < 200 ng/mL [facility] Cannabinoids Screen Ql (U) Positive Abnormal Negative < 50 ng/mL [employer] [facility] Cocaine Ql (U) Negative Negative < 300 ng/mL [facility] Drug screen comment (U) [Interp] see below [facility] Comment on above: This method is a scr eening test to detect only these drug classes as part of a medical workup. Confirmatory testing by another method should be ordered if clinically indicated. FENTANYL SCREEN, URINE Negative Negative < 50 ng/mL [facility] Interpretation and review of laboratory results Abnormal [facility] Methadone Screen Ql (U) Negative Negative <300 ng/mL [facility] Opiates Screen Ql (U) Negative Negati ve < 300 ng/mL [facility] oxyCODONE Ql (U) Negative Negative <100 ng/mL [facility] Phencyclidine Ql (U) Negative Negativ e < 25 ng/mL [facility] Propoxyphene Screen Ql (U) Negative Negative <300 ng/mL [facility] CBC With Platelet and Differ entialon 07-13-2024 Basophils (Bld) [#/Vol] 0.1 10*3/uL Normal 0.0-0.2 [facility] Comment on above: Performed By: #### C BCWD #### [facility] [address] [place] [address] Basophils/100 WBC (Bld) 0.6 % Normal [facility] Comment on above: Performed By: #### C BCWD #### [facility] [address] [place] [address] Eosinophils (Bld) [#/Vol] 0.7 10*3/uL Normal 0.0-0.7 [facility] Comment on above: Performed By: #### C BCWD #### [facility] [address] [place] [address] Eosinophils/100 WBC (Bld) 5.2 % Normal [facility] Comment on above: Performed By: #### C BCWD #### [facility] [address] [place] [address] Erythrocyte distribution width (RBC) [Ratio] 12.0 % Normal 11.5-14.5 [facility] Comment on above: Performed By: #### C BCWD #### [facility] [address] [place] [address] Hematocrit (Bld) [Volume fraction] 48.2 % Normal 42.0-52.0 [facility] Comment on above: Performed By: #### C BCWD #### [facility] [address] [place] [address] Hemoglobin (Bld) [Mass/Vol] 16.1 g/dL Normal 14.0-18.0 [facility] Comment on above: Performed By: #### C BCWD #### [facility] [address] [place] [address] Lymphocytes (Bld) [#/Vol] 4.0 10*3/uL Normal 1.0-4.8 [facility] Comment on above: Performed By: #### C BCWD #### [facility] [address] [place] [address] Lymphocytes/100 WBC (Bld) 31.1 % Normal [facility] Comment on above: Performed By: #### C BCWD #### [facility] [address] [place] [address] MCH (RBC) [Entitic mass] 31.2 pg Normal 27.0-31.3 [facility] Comment on above: Performed By: #### C BCWD #### [facility] [address] [place] [address] MCHC 33.4 % Normal 33.0-37.0 [facility] Comment on above: Performed By: #### C BCWD #### [facility] [address] [place] [address] MCV (RBC) [Entitic vol] 93.4 fL Critically high 79.0-92.2 [facility] Comment on above: Performed By: #### C BCWD #### [facility] [address] [place] [address] Monocytes (Bld) [#/Vol] 1.1 10*3/uL Critically high 0.2-0.8 [facility] Comment on above: Performed By: #### C BCWD #### [facility] [address] [place] [address] Monocytes/100 WBC (Bld) 8.5 % Normal [facility] Comment on above: Performed By: #### C BCWD #### [facility] [address] [place] [address] Neutrophils (Bld) [#/Vol] 7.1 10*3/uL Critically high 1.4-6.5 [facility] Comment on above: Performed By: #### C BCWD #### [facility] [address] [place] [address] Neutrophils/100 WBC (Bld) 54.3 % Normal [facility] Comment on above: Performed By: #### C BCWD #### [facility] [address] [place] [address] Platelets (Bld) [#/Vol] 312 10*3/uL Normal 130-400 [facility] Comment on above: Performed By: #### C BCWD #### [facility] [address] [place] [address] RBC (Bld) [#/Vol] 5.16 10*6/uL Normal 4.70-6.10 [facility] Comment on above: Performed By: #### C BCWD #### [facility] [address] [place] [address] WBC (Bld) [#/Vol] 13.0 10*3/uL Critically high 4.8-10.8 [facility] Comment on above: Performed By: #### C BCWD #### [facility] [address] [place] [address] CT KIDNEY WO CONTRASTon 05-0 CT KIDNEY [...] No mass or adenopathy. No bladder calculi. Peritoneum/Retroperitoneum : Negative. Bones/Soft Tissues: No acute osseous or body wall soft tissue abnormalities. Focal moderate disc degenerative change L4-L5. IMPRESSION: 1. No acute intra-abdominal or pelvic process. No urinary calculi or obstruction. 2. Focal moderate disc degenerative change L4-L5. Interpreted by: Smith Bullock MD Signed by: Smith Bullock MD 07/14/24 Final result Normal [facility] CT Kidney WO contraston 05-0 Radiology Study observation (narrative) [facility] Comprehensive Metabolic Pane ashok 07-13-2024 Albumin [Mass/Vol] 4.7 g/dL Critically high 3.5-4.6 [facility] Comment on above: Performed By: #### L ACID #### [facility] [address] [place] [address] ALP [Catalytic activity/Vol] 81 U/L Normal 35-104 [facility] Comment on above: Performed By: #### L ACID #### [facility] [address] [place] [address] ALT [Catalytic activity/Vol] 32 U/L Normal 0-41 [facility] Comment on above: Performed By: #### L ACID #### [facility] [address] [place] [address] Anion gap [Moles/Vol] 12 mmol/L Normal 9-15 [facility] Comment on above: Performed By: #### L ACID #### [facility] [address] [place] [address] AST [Catalytic activity/Vol] 22 U/L Normal 0-40 [facility] Comment on above: Performed By: #### L ACID #### [facility] [address] [place] [address] Bilirubin [Mass/Vol] mg/dL Normal 0.2-0.7 [facility] Comment on above: Performed By: #### L ACID #### [facility] [address] [place] [address] Calcium [Mass/Vol] 9.6 mg/dL Normal 8.5-9.9 [facility] Comment on above: Performed By: #### L ACID #### [facility] [address] [place] [address] Chloride [Moles/Vol] 99 mmol/L Normal 95-107 [facility] Comment on above: Performed By: #### L ACID #### [facility] [address] [place] [address] CO2 [Moles/Vol] 28 mmol/L Normal 20-31 [facility] Comment on above: Performed By: #### L ACID #### [facility] [address] [place] [address] Creatinine [Mass/Vol] 1.08 mg/dL Normal 0.70-1.20 [facility] Comment on above: Performed By: #### L ACID #### [facility] [address] [place] [address] GFR 87.4 Normal >60 [facility] Comment on above: Result Comment: Abbie atric [...] secretion. Performed By: #### L ACID #### [facility] [address] [place] [address] Globulin (S) [Mass/Vol] 3.2 g/dL Normal 2.3-3.5 [facility] Comment on above: Performed By: #### L ACID #### [facility] [address] [place] [address] Glucose [Mass/Vol] 87 mg/dL Normal 70-99 [facility] Comment on above: Performed By: #### L ACID #### [facility] [address] [place] [address] Potassium [Moles/Vol] 4.2 mmol/L Normal 3.4-4.9 [facility] Comment on above: Performed By: #### L ACID #### [facility] [address] [place] [address] Protein [Mass/Vol] 7.9 g/dL Normal 6.3-8.0 [facility] Comment on above: Performed By: #### L ACID #### [facility] [address] [place] [address] Sodium [Moles/Vol] 139 mmol/L Normal 135-144 [facility] Comment on above: Performed By: #### L ACID #### [facility] [address] [place] [address] Urea nitrogen [Mass/Vol] 25 mg/dL Critically high 6-20 [facility] Comment on above: Performed By: #### L ACID #### [facility] [address] [place] [address] Comprehensive metabolic 2000 panelon 07-13-2024 Albumin [Mass/Vol] 4.7 g/dL High 3.5 - 4.6 g/dL [facility] ALP [Catalytic activity/Vol] 81 U/L 35 - 104 U/L [facility] ALT [Catalytic activity/Vol] 32 U/L 0 - 41 U/L [facility] Anion gap [Moles/Vol] 12 mmol/L [facility] AST [Catalytic activity/Vol] 22 U/L 0 - 40 U/L [facility] Bilirubin [Mass/Vol] mg/dL 0.2 - 0 .7 mg/dL [facility] Calcium [Mass/Vol] 9.6 mg/dL 8.5 - 9.9 mg/dL [facility] Chloride [Moles/Vol] 99 mmol/L [facility] CO2 [Moles/Vol] 28 mmol/L [facility] Creatinine [Mass/Vol] 1.08 mg/dL 0.70 - 1.20 mg/dL [facility] GFR/1.73 sq M.predicted among non-blacks MDRD (S/P/Bld) [Vol rate/Area] 87.4 mL/min/{1.73_m2} 60 - PINF [facility] Comment on above: Pediatric calculator link [...] [Mass/Vol] 3.2 g/dL 2.3 - 3.5 g/dL [facility] Glucose [Mass/Vol] 87 mg/dL 70 - 99 mg/dL [facility] Interpretation and review of laboratory results Abnormal [facility] Potassium [Moles/Vol] 4.2 mmol/L [facility] Protein [Mass/Vol] 7.9 g/dL 6.3 - 8.0 g/dL [facility] Sodium [Moles/Vol] 139 mmol/L [facility] Urea nitrogen [Mass/Vol] 25 mg/dL High 6 - 20 mg/dL [facility] Lactate (BldV) [Moles/Vol]on 07-13-2024 [facility] Lactic Acidon 07-13-2024 Lactate (BldV) [Moles/Vol] 1.3 mmol/L 0.5 - 2.2 mmol/L [facility] Lactate [Moles/Vol] 1.3 mmol/L Normal 0.5-2.2 [facility] Comment on above: Performed By: #### L ACID #### [facility] [address] [place] [address] Procalcitoninon 07-13-2024 Procalcitonin IA [Mass/Vol] 0.03 ng/mL 0.00 - 0.15 ng/mL [facility] Comment on above: Suspected Sepsis: Low [...] to determine the patient's Mortality Risk Prognosis ([email or web address]) In healthy neonates, plasma Procalcitonin (PCT) concentrations increase gradually after , reaching peak values at about 24 hours of age then decrease to normal values below 0.5 ng/mL by 48-72 hours of age. Procalcitonin 0.03 ng/mL Normal 0.00-0.15 [facility] Comment on above: Result Comment: Susp ected [...] to determine the patient's Mortality Risk Prognosis ([email or web address].[email or web address]) In healthy neonates, plasma Procalcitonin (PCT) concentrations increase gradually after , reaching peak values at about 24 hours of age then decrease to normal values below 0.5 ng/mL by 48-72 hours of age. Performed By: #### P ROCT #### [facility] [address] [place] [address] Procalcitonin IA [Mass/Vol]o n 07-13-2024 [facility] XR CERVICAL SPINE 2-3 VIEWSo n 06-06-2024 XR CERVICAL SPINE 2-3 VIEWS Interpreted By: Sha Foster, STUDY: XR CERVICAL SPINE 2-3 VIEWS; 06/06/2024 11:08 am INDICATION: Signs/Symptoms:Pain. ACCESSION NUMBER(S): [id number] ORDERING CLINICIAN: SHA FOSTER FINDINGS: AP lateral [...] Sha Foster 06/06/2024 3:56 PM Dictation workstation: [id number] [facility] XR Cervical spine 2 or 3 Vie wson 06-06-2024 Interpreted By: Sha Chacon, STUDY: XR CERVICAL SPINE 2-3 VIEWS; 06/06/2024 11:08 am INDICATION: Signs/Symptoms:Pain. ACCESSION NUMBER(S): [id number] ORDERING CLINICIAN: SHA FOSTER FINDINGS: AP lateral [...] Sha Foster 06/06/2024 3:56 PM Dictation workstation: [id number] Sha Foster MD - 06/06/2024 Interpreted By: Sha Foster, STUDY: XR CERVICAL SPINE 2-3 VIEWS; 06/06/2024 11:08 am INDICATION: Signs/Symptoms:Pain. ACCESSION NUMBER(S): [id number] ORDERING CLINICIAN: SHA FOSTER FINDINGS: AP lateral [...] Sha Foster 06/06/2024 3:56 PM Dictation workstation: [id number] [facility] Work Phone: [facility] Work Phone: Radiology Study observation (narrative) [facility] Work Phone: CT CERVICAL SPINE WO [...] Dorothy Cruz MD 05/19/24 Final result Normal [facility] CT Cervical spine WO contras ton 05-19-2024 No acute abnormality of the cervical spine. [facility] EXAMINATION: CT OF THE CERVICAL [...] There is no prevertebral soft tissue swelling. [facility] Dorothy Cruz MD - 05/19/2024 [...] No acute abnormality of the cervical spine. [facility] CT Cervical spine WO contras tOrdered By: Dorothy Cruz on 05-19-2024 [facility] Work Phone: CT LUMBAR SPINE WO [...] and L5-S1, with vacuum phenomenon. There is gjsv-[id number] bilateral neural foraminal stenosis at these levels. SOFT TISSUES/RETROPERITONEUM: No paraspinal mass is seen. IMPRESSION: 1. No acute osseous abnormality of the lumbar spine. 2. Degenerative disc disease at L4-L5 and L5-S1. Interpreted by: Dorothy Cruz MD Signed by: Dorothy Cruz MD 05/19/24 Final result Normal [facility] CT Lumbar spine WO contrasto n 05-19-2024 1. No acute osseous abnormality of the lumbar spine. 2. Degenerative disc disease at L4-L5 and L5-S1. [facility] EXAMINATION: CT OF THE LUMBAR [...] and L5-S1, with vacuum phenomenon. There is [id number]-hb-fpeyasbb bilateral neural foraminal stenosis at these levels. SOFT TISSUES/RETROPERITONEUM: No paraspinal mass is seen. [facility] Dorothy Cruz MD - 05/19/2024 EXAMINATION: CT [...] and L5-S1, with vacuum phenomenon. There is [id number] bilateral neural foraminal stenosis at these levels. SOFT TISSUES/RETROPERITONEUM: No paraspinal mass is seen. IMPRESSION: 1. No acute osseous abnormality of the lumbar spine. 2. Degenerative disc disease at L4-L5 and L5-S1. [facility] No Panel Informationon 05-19 Radiology Study observation (narrative) [facility] XR HIP 2-3 VW W PELVIS [...] Jonnathan Liz MD 05/18/24 Final result Normal [facility] XR Pelvis and Hip - left 2 V iewson 05-18-2024 Normal radiographs o f the left hip and pelvis. [facility] EXAM[facility]ATION: ONE XRAY VIEW OF [...] appearance. The bowel gas pattern is unremarkable. [facility] Jonnathan Liz MD - 05/18/2024 [...] radiographs of the left hip and pelvis. [facility] Radiology Study observation (narrative) [facility] XR Pelvis and Hip - left 2 V iewsOrdered By: Jonnathan Liz on 05-18-2024 [facility] Work Phone: XR CERVICAL SPINE 2-3 VIEWSo n 03-07-2024 XR CERVICAL SPINE 2-3 VIEWS Interpreted By: Sha Foster, STUDY: XR CERVICAL SPINE 2-3 VIEWS; 03/07/2024 10:52 am INDICATION: Signs/Symptoms:neck pain. ACCESSION NUMBER(S): [id number] ORDERING CLINICIAN: SHA FOSTER FINDINGS: AP lateral [...] Sha Foster 03/07/2024 11:17 AM Dictation workstation: [id number] [facility] XR Cervical spine 2 or 3 Vie wson 03-07-2024 Interpreted By: Sha Chacon, STUDY: XR CERVICAL SPINE 2-3 VIEWS; 03/07/2024 10:52 am INDICATION: Signs/Symptoms:neck pain. ACCESSION NUMBER(S): [id number] ORDERING CLINICIAN: SHA FOSTER FINDINGS: AP lateral [...] Sha Foster 03/07/2024 11:17 AM Dictation workstation: [id number] Sha Foster MD - 03/07/2024 Interpreted By: Sha Foster, STUDY: XR CERVICAL SPINE 2-3 VIEWS; 03/07/2024 10:52 am INDICATION: Signs/Symptoms:neck pain. ACCESSION NUMBER(S): [id number] ORDERING CLINICIAN: SHA FOSTER FINDINGS: AP lateral [...] Sha Foster 03/07/2024 11:17 AM Dictation workstation: [id number] [facility] Work Phone: [facility] Work Phone: Radiology Study observation (narrative) [facility] Work Phone: Basic metabolic 2000 panelon 02-26-2024 Anion gap [Moles/Vol] 10 mmol/L 10 - 2 0 mmol/L [facility] Calcium [Mass/Vol] 8.9 mg/dL 8.6 - 10. 3 mg/dL [facility] Chloride [Moles/Vol] 102 mmol/L 98 - 10 7 mmol/L [facility] CO2 [Moles/Vol] 30 mmol/L 21 - 32 mmol/L [facility] Creatinine [Mass/Vol] 1.04 mg/dL 0.50 - 1.30 mg/dL [facility] eGFR - PINF [facility] Comment on above: Calculations of katie mated GFR are performed using the 2020 CKD-EPI Study Refit equation without the race variable for the IDMS-Traceable creatinine methods. https://jasn.asnjournals.org/content//ASN.989977 2351 Glucose [Mass/Vol] 124 mg/dL High 74 - 99 mg/dL [facility] Interpretation and review of laboratory results Abnormal [facility] Potassium [Moles/Vol] 4.2 mmol/L 3.5 - 5.3 mmol/L [facility] Sodium [Moles/Vol] 138 mmol/L 136 - 145 mmol/L [facility] Urea nitrogen [Mass/Vol] 11 mg/dL 6 - 23 mg/dL [facility] Anion gap [Moles/Vol] 10 mmol/L Normal 10-20 [facility] Comment on above: Performed By: #### 2 4323-8 #### AVTARIBELIKAMERON LARKIN ([id number]) [facility] ([facility]) [address] [place] [address] Calcium [Mass/Vol] 8.9 mg/dL Normal 8.6-10.3 [facility] Comment on above: Performed By: #### 2 4323-8 #### AVTARIBELIKAMERON LARKIN ([id number]) [facility] [address] [place] [address] Chloride [Moles/Vol] 102 mmol/L Normal 98-107 [facility] Comment on above: Performed By: #### 2 4323-8 #### ANAIBELIKAMERON ZOHRA BANDAR ([id number]) [facility] ([facility]) [address] [place] [address] CO2 [Moles/Vol] 30 mmol/L Normal 21-32 [facility] Comment on above: Performed By: #### 2 4323-8 #### ANAIBELIKAMERON ZOHRA BANDAR ([id number]) [facility] ([facility]) [address] [place] [address] Creatinine [Mass/Vol] 1.04 mg/dL Normal 0.50-1.30 [facility] Comment on above: Performed By: #### 2 4323-8 #### ESTELIAT LARKIN ([id number]) [facility] ([facility]) [address] [place] [address] 69511 GFR/1.73 sq M.predicted MDRD (S/P/Bld) [Vol rate/Area] mL/min/{1.73_m2} Normal >60 [facility] Comment on above: Result Comment: Calc ulations of estimated GFR are performed using the 2020 CKD-EPI Study Refit equation without the race variable for the IDMS-Traceable creatinine methods. https://jasn.asnjournals.org/content/early/ASN.309603 2186 Performed By: #### 2 4323-8 #### ESTELITA LARKIN ([id number]) [facility] ([facility]) [address] [place] [address] 95722 Glucose [Mass/Vol] 124 mg/dL High 74-99 [facility] Comment on above: Performed By: #### 2 4323-8 #### ESTELITA LARKIN ([id number]) [facility] ([facility]) [address] [place] [address] 40931 Potassium [Moles/Vol] 4.2 mmol/L Normal 3.5-5.3 [facility] Comment on above: Performed By: #### 2 4323-8 #### ESTELITA LARKIN ([id number]) [facility] ([facility]) [address] [place] [address] 06094 Sodium [Moles/Vol] 138 mmol/L Normal 136-145 [facility] Comment on above: Performed By: #### 2 4323-8 #### ESTELITA LARKIN ([id number]) [facility] ([facility]) [address] [place] [address] 53611 Urea nitrogen [Mass/Vol] 11 mg/dL Normal 6-23 [facility] Comment on above: Performed By: #### 2 4323-8 #### ESTELITA LARKIN ([id number]) [facility]) [address] [place] [address] CBC panel Auto (Bld)on 02-25 Erythrocyte distribution width (RBC) [Ratio] 11.9 % 11.5 - 14.5 % [facility] Hematocrit (Bld) [Volume fraction] 40.5 % Low 41.0 - 52.0 % [facility] Hemoglobin (Bld) [Mass/Vol] 13.2 g/dL Low 13.5 - 17.5 g/dL [facility] Interpretation and review of laboratory results Abnormal [facility] MCH (RBC) [Entitic mass] 31.8 pg 26.0 - 34.[address] [facility] MCHC (RBC) [Mass/Vol] 32.6 g/dL 32.0 - 36.0 g/dL [facility] MCV (RBC) [Entitic vol] 98 fL 80 - [address] [facility] Nucleated RBC/100 WBC (Bld) [Ratio] 0 % [facility] Platelets (Bld) [#/Vol] 267 10*3/uL [facility] RBC (Bld) [#/Vol] 4.15 10*6/uL Low [facility] WBC (Bld) [#/Vol] 9.6 10*3/uL [facility] Erythrocyte distribution width (RBC) [Ratio] 11.9 % Normal 11.5-14.5 [facility] Comment on above: Performed By: #### 5 902-2 #### ESTELITA LARKIN ([id number]) [facility]) [address] [place] [address] Hematocrit (Bld) [Volume fraction] 40.5 % Low 41.0-52.0 [facility] Comment on above: Performed By: #### 5 902-2 #### ESTELITA LARKIN ([id number]) [facility]) [address] [place] [address] 17446 Hemoglobin (Bld) [Mass/Vol] 13.2 g/dL Low 13.5-17.5 [facility] Comment on above: Performed By: #### 5 902-2 #### ESTELITA LARKIN ([id number]) [facility]) [address] [place] [address] 44552 MCH (RBC) [Entitic mass] 31.8 pg Normal 26.0-34.0 [facility] Comment on above: Performed By: #### 5 902-2 #### ESTELITA LARKIN ([id number]) [facility] ([facility]) [address] [place] [address] 49112 MCHC (RBC) [Mass/Vol] 32.6 g/dL Normal 32.0-36.0 [facility] Comment on above: Performed By: #### 5 902-2 #### ESTELITA LARKIN ([id number]) [facility]) [address] [place] [address] 58436 MCV (RBC) [Entitic vol] 98 fL Normal 80-100 [facility] Comment on above: Performed By: #### 5 902-2 #### ESTELITA LARKIN ([id number]) [facility] ([facility]) [address] [place] [address] 06599 Nucleated RBC/100 WBC (Bld) [Ratio] 0.0 /100 WBCs Normal 0.0-0.0 [facility] Comment on above: Performed By: #### 5 902-2 #### ESTELITA LARKIN ([id number]) [facility] ([facility]) [address] [place] [address] 00572 Platelets (Bld) [#/Vol] 267 x10*3/uL Normal 150-450 [facility] Comment on above: Performed By: #### 5 902-2 #### ESTELITA LARKIN ([id number]) [facility] ([facility]) [address] [place] [address] 94148 RBC (Bld) [#/Vol] 4.15 x10*6/uL Low 4.50-5.90 [facility] Comment on above: Performed By: #### 5 902-2 #### ESTELITA LARKIN ([id number]) [facility]) [address] [place] [address] WBC (Bld) [#/Vol] 9.6 x10*3/uL Normal 4.4-11.3 [facility] Comment on above: Performed By: #### 5 902-2 #### ESTELITA LARKIN ([id number]) [facility]) [address] [place] [address] Bacteria identified Cx Nom ( Unsp spec)Ordered By: Radha Joyner on 02-25-2024 Interpretation and review of laboratory results Abnormal [facility] Microscopic observation Gram stain Nom (Unsp spec) (2+) Few Polymorphonuclear leukocytes Abnormal [facility] Microscopic observation Gram stain Nom (Unsp spec) Positive Abnormal [facility] Basic metabolic 2000 panelon 02-25-2024 Anion gap [Moles/Vol] 14 mmol/L 10 - 2 0 mmol/L [facility] Calcium [Mass/Vol] 8.7 mg/dL 8.6 - 10. 3 mg/dL [facility] Chloride [Moles/Vol] 99 mmol/L 98 - 10 7 mmol/L [facility] CO2 [Moles/Vol] 25 mmol/L 21 - 32 mmol/L [facility] Creatinine [Mass/Vol] 1.15 mg/dL 0.50 - 1.30 mg/dL [facility] GFR/1.73 sq M.predicted among non-blacks MDRD (S/P/Bld) [Vol rate/Area] 81 mL/min/{1.73_m2} - PINF [facility] Comment on above: Calculations of katie mated GFR are performed using the 2020 CKD-EPI Study Refit equation without the race variable for the IDMS-Traceable creatinine methods. https://jasn.asnjournals.org/content//ASN.597831 9937 Glucose [Mass/Vol] 176 mg/dL High 74 - 99 mg/dL [facility] Interpretation and review of laboratory results Abnormal [facility] Potassium [Moles/Vol] 4 mmol/L 3.5 - 5.3 mmol/L [facility] Sodium [Moles/Vol] 134 mmol/L Low 136 - 145 mmol/L [facility] Urea nitrogen [Mass/Vol] 17 mg/dL 6 - 23 mg/dL [facility] Anion gap [Moles/Vol] 14 mmol/L Normal 10-20 [facility] Comment on above: Performed By: #### 5 902-2 #### ESTELITA LARKIN ([id number]) [facility]) [address] [place] [address] 08304 Calcium [Mass/Vol] 8.7 mg/dL Normal 8.6-10.3 [facility] Comment on above: Performed By: #### 5 902-2 #### ESTELITA LARKIN ([id number]) [facility]) [address] [place] [address] 03265 Chloride [Moles/Vol] 99 mmol/L Normal 98-107 [facility] Comment on above: Performed By: #### 5 902-2 #### ESTELITA LARKIN ([id number]) [facility]) [address] [place] [address] 21273 CO2 [Moles/Vol] 25 mmol/L Normal 21-32 [facility] Comment on above: Performed By: #### 5 902-2 #### ESTELITA LARKIN ([id number]) [facility]) [address] [place] [address] Creatinine [Mass/Vol] 1.15 mg/dL Normal 0.50-1.30 [facility] Comment on above: Performed By: #### 5 902-2 #### ESTELITA LARKIN ([id number]) [facility] ([facility]) [address] [place] [address] 03351 Glomerular filtration rate/1.73 sq M.predicted 81 mL/min/1.73m*2 Normal >60 [facility] Comment on above: Result Comment: Calc ulations of estimated GFR are performed using the 2020 CKD-EPI Study Refit equation without the race variable for the IDMS-Traceable creatinine methods. https://jasn.asnjournals.org/content//ASN.754785 5654 Performed By: #### 5 902-2 #### ESTELITA LARKIN ([id number]) [facility] ([facility]) [address] [place] [address] 03892 Glucose [Mass/Vol] 176 mg/dL High 74-99 [facility] Comment on above: Performed By: #### 5 902-2 #### ESTELITA LARKIN ([id number]) [facility]) [address] [place] [address] 61276 Potassium [Moles/Vol] 4.0 mmol/L Normal 3.5-5.3 [facility] Comment on above: Performed By: #### 5 902-2 #### ESTELITA LARKIN ([id number]) [facility] ([facility]) [address] [place] [address] 36752 Sodium [Moles/Vol] 134 mmol/L Low 136-145 [facility] Comment on above: Performed By: #### 5 902-2 #### ESTELITA LARKIN ([id number]) [facility] ([facility]) [address] [place] [address] 65066 Urea nitrogen [Mass/Vol] 17 mg/dL Normal 6-23 [facility] Comment on above: Performed By: #### 5 902-2 #### ESTELITA LARKIN ([id number]) [facility] ([facility]) [address] [place] [address] 91683 CBC panel Auto (Bld)on 02-24 Erythrocyte distribution width (RBC) [Ratio] 11.5 % 11.5 - 14.5 % [facility] Hematocrit (Bld) [Volume fraction] 38.4 % Low 41.0 - 52.0 % [facility] Hemoglobin (Bld) [Mass/Vol] 13.1 g/dL Low 13.5 - 17.5 g/dL [facility] Interpretation and review of laboratory results Abnormal [facility] MCH (RBC) [Entitic mass] 32.3 pg 26.0 - 34.[address] [facility] MCHC (RBC) [Mass/Vol] 34.1 g/dL 32.0 - 36.0 g/dL [facility] MCV (RBC) [Entitic vol] 95 fL 80 - [address] [facility] Nucleated RBC/100 WBC (Bld) [Ratio] 0 % [facility] Platelets (Bld) [#/Vol] 261 10*3/uL [facility] RBC (Bld) [#/Vol] 4.05 10*6/uL Low [facility] WBC (Bld) [#/Vol] 15.5 10*3/uL High [facility] Erythrocyte distribution width (RBC) [Ratio] 11.5 % Normal 11.5-14.5 [facility] Comment on above: Performed By: #### 5 902-2 #### ESTELITA LARKIN ([id number]) [facility] ([facility]) [address] [place] [address] 71109 Hematocrit (Bld) [Volume fraction] 38.4 % Low 41.0-52.0 [facility] Comment on above: Performed By: #### 5 902-2 #### ESTELITA LARKIN ([id number]) [facility]) [address] [place] [address] 37275 Hemoglobin (Bld) [Mass/Vol] 13.1 g/dL Low 13.5-17.5 [facility] Comment on above: Performed By: #### 5 902-2 #### ESTELITA LARKIN ([id number]) [facility] ([facility]) [address] [place] [address] 50833 MCH (RBC) [Entitic mass] 32.3 pg Normal 26.0-34.0 [facility] Comment on above: Performed By: #### 5 902-2 #### ESTELITA LARKIN ([id number]) [facility] ([facility]) [address] [place] [address] 71867 MCHC (RBC) [Mass/Vol] 34.1 g/dL Normal 32.0-36.0 [facility] Comment on above: Performed By: #### 5 902-2 #### ESTELITA LARKIN ([id number]) [facility] ([facility]) [address] [place] [address] 10158 MCV (RBC) [Entitic vol] 95 fL Normal 80-100 [facility] Comment on above: Performed By: #### 5 902-2 #### ESTELITA LARKIN ([id number]) [facility] ([facility]) [address] [place] [address] 39143 Nucleated RBC/100 WBC (Bld) [Ratio] 0.0 /100 WBCs Normal 0.0-0.0 [facility] Comment on above: Performed By: #### 5 902-2 #### ESTELITA LARKIN ([id number]) [facility]) [address] [place] [address] 02986 Platelets (Bld) [#/Vol] 261 x10*3/uL Normal 150-450 [facility] Comment on above: Performed By: #### 5 902-2 #### ESTELITA LARKIN ([id number]) [facility] ([facility]) [address] [place] [address] 96439 RBC (Bld) [#/Vol] 4.05 x10*6/uL Low 4.50-5.90 [facility] Comment on above: Performed By: #### 5 902-2 #### ESTELITA LARKIN ([id number]) [facility]) [address] [place] [address] 90091 WBC (Bld) [#/Vol] 15.5 x10*3/uL High 4.4-11.3 [facility] Comment on above: Performed By: #### 5 902-2 #### ESTELITA LARKIN ([id number]) [facility]) [address] [place] [address] No Panel Informationon 02-24 [facility] Tissue/Wound Culture/SmearOr dered By: Radha Joyner on 02-25-2024 Bacteria identified Cx Nom (Unsp spec) (4+) Abundant Methicillin Resistant Staphylococcus aureus (MRSA) Abnormal [facility] Comment on above: Methicillin (Oxacill in) resistant Staphylococci are resistant to all currently available Penicillins, Beta-lactam/Beta-lactamase inhibitor combinations (including Ampicillin/Sulbactam, Amoxicillin/Clavulanate and Pipercillin/Tazobactam), Carbapenems and Cephalosporins (except Ceftaroline). Vancomycinon 02-25-2024 Vancomycin [Mass/Vol] 13.7 ug/mL 5.0 - 20.0 ug/mL [facility] Vancomycin [Mass/Vol] 13.7 ug/mL Normal 5.0-20.0 [facility] Comment on above: Order Comment: Vanco [...] By: #### 5 902-2 #### ESTELITA LARKIN ([id number]) [facility] [address] [place] [address] 39225 Vancomycin [Mass/Vol]on 02-12 Interpretation and review of laboratory results Normal [facility] Vancomycin levels can be monitored according [...] 30.0-40.0 ug/mL Trough (all ages): 10.0-20.0 ug/mL [facility] Basic metabolic 2000 panelon 02-24-2024 Anion gap [Moles/Vol] 10 mmol/L 10 - 2 0 mmol/L [facility] Calcium [Mass/Vol] 8.8 mg/dL 8.6 - 10. 3 mg/dL [facility] Chloride [Moles/Vol] 104 mmol/L 98 - 10 7 mmol/L [facility] CO2 [Moles/Vol] 29 mmol/L 21 - 32 mmol/L [facility] Creatinine [Mass/Vol] 1.17 mg/dL 0.50 - 1.30 mg/dL [facility] GFR/1.73 sq M.predicted among non-blacks MDRD (S/P/Bld) [Vol rate/Area] 80 mL/min/{1.73_m2} - PINF [facility] Comment on above: Calculations of katie mated GFR are performed using the 2020 CKD-EPI Study Refit equation without the race variable for the IDMS-Traceable creatinine methods. https://jasn.asnjournals.org/content//ASN.096649 1236 Glucose [Mass/Vol] 108 mg/dL High 74 - 99 mg/dL [facility] Interpretation and review of laboratory results Abnormal [facility] Potassium [Moles/Vol] 3.9 mmol/L 3.5 - 5.3 mmol/L [facility] Sodium [Moles/Vol] 139 mmol/L 136 - 145 mmol/L [facility] Urea nitrogen [Mass/Vol] 13 mg/dL 6 - 23 mg/dL [facility] Anion gap [Moles/Vol] 10 mmol/L Normal 10-20 [facility] Comment on above: Order Comment: Savannah long obtain BMP on this date xxxxxx, call your PCP to review results/treatment plansThank you Performed By: #### 5 902-2 #### ESTELITA LARKIN ([id number]) [facility] [address] [place] [address] 49619 Calcium [Mass/Vol] 8.8 mg/dL Normal 8.6-10.3 [facility] Comment on above: Order Comment: Savannah long obtain BMP on this date xxxxxx, call your PCP to review results/treatment plansThank you Performed By: #### 5 902-2 #### ESTELITA LARKIN ([id number]) [facility] ([facility]) [address] [place] [address] 37729 Chloride [Moles/Vol] 104 mmol/L Normal 98-107 [facility] Comment on above: Order Comment: Savannah long obtain BMP on this date xxxxxx, call your PCP to review results/treatment plansThank you Performed By: #### 5 902-2 #### ESTELITA LARKIN ([id number]) [facility]) [address] [place] [address] 60330 CO2 [Moles/Vol] 29 mmol/L Normal 21-32 [facility] Comment on above: Order Comment: Savannah long obtain BMP on this date xxxxxx, call your PCP to review results/treatment plansThank you Performed By: #### 5 902-2 #### ESTELITA LARKIN ([id number]) [facility]) [address] [place] [address] 01632 Creatinine [Mass/Vol] 1.17 mg/dL Normal 0.50-1.30 [facility] Comment on above: Order Comment: Savannah long obtain BMP on this date xxxxxx, call your PCP to review results/treatment plansThank you Performed By: #### 5 902-2 #### ESTELITA LARKIN ([id number]) [facility]) [address] [place] [address] 98623 Glomerular filtration rate/1.73 sq M.predicted 80 mL/min/1.73m*2 Normal >60 [facility] Comment on above: Order Comment: Savannah long obtain BMP on this date xxxxxx, call your PCP to review results/treatment plansThank you Result Comment: Calc ulations of estimated GFR are performed using the 2020 CKD-EPI Study Refit equation without the race variable for the IDMS-Traceable creatinine methods. https://jasn.asnjournals.org/content/early/ASN.541988 4111 Performed By: #### 5 902-2 #### ESTELITA LARKIN ([id number]) [facility]) [address] [place] [address] 97029 Glucose [Mass/Vol] 108 mg/dL High 74-99 [facility] Comment on above: Order Comment: Savannah long obtain BMP on this date xxxxxx, call your PCP to review results/treatment plansThank you Performed By: #### 5 902-2 #### ESTELITA LARKIN ([id number]) [facility] [address] [place] [address] 05014 Potassium [Moles/Vol] 3.9 mmol/L Normal 3.5-5.3 [facility] Comment on above: Order Comment: Savannah long obtain BMP on this date xxxxxx, call your PCP to review results/treatment plansThank you Performed By: #### 5 902-2 #### ESTELITA LARKIN ([id number]) [facility]) [address] [place] [address] 69970 Sodium [Moles/Vol] 139 mmol/L Normal 136-145 [facility] Comment on above: Order Comment: Savannah long obtain BMP on this date xxxxxx, call your PCP to review results/treatment plansThank you Performed By: #### 5 902-2 #### ESTELITA LARKIN ([id number]) [facility]) [address] [place] [address] 40774 Urea nitrogen [Mass/Vol] 13 mg/dL Normal 6-23 [facility] Comment on above: Order Comment: Savannah davalos BMP on this date xxxxxx, call your PCP to review results/treatment plansThank you Performed By: #### 5 902-2 #### ESTELITA LARKIN ([id number]) [facility]) [address] [place] [address] 85126 CBC panel Auto (Bld)on 02-23 Erythrocyte distribution width (RBC) [Ratio] 11.6 % 11.5 - 14.5 % [facility] Hematocrit (Bld) [Volume fraction] 40.2 % Low 41.0 - 52.0 % [facility] Hemoglobin (Bld) [Mass/Vol] 13.3 g/dL Low 13.5 - 17.5 g/dL [facility] Interpretation and review of laboratory results Abnormal [facility] MCH (RBC) [Entitic mass] 32 pg 26.0 - 34.[address] [facility] MCHC (RBC) [Mass/Vol] 33.1 g/dL 32.0 - 36.0 g/dL [facility] MCV (RBC) [Entitic vol] 97 fL 80 - [address] [facility] Nucleated RBC/100 WBC (Bld) [Ratio] 0 % [facility] Platelets (Bld) [#/Vol] 235 10*3/uL [facility] RBC (Bld) [#/Vol] 4.15 10*6/uL [facility] WBC (Bld) [#/Vol] 7.5 10*3/uL [facility] Erythrocyte distribution width (RBC) [Ratio] 11.6 % Normal 11.5-14.5 [facility] Comment on above: Performed By: #### 5 902-2 #### ESTELITA LARKIN ([id number]) [facility]) [address] [place] [address] 81447 Hematocrit (Bld) [Volume fraction] 40.2 % Low 41.0-52.0 [facility] Comment on above: Performed By: #### 5 902-2 #### ESTELITA LARKIN ([id number]) [facility]) [address] [place] [address] 27077 Hemoglobin (Bld) [Mass/Vol] 13.3 g/dL Low 13.5-17.5 [facility] Comment on above: Performed By: #### 5 902-2 #### ESTELITA LARKIN ([id number]) [facility] [address] [place] [address] 15580 MCH (RBC) [Entitic mass] 32.0 pg Normal 26.0-34.0 [facility] Comment on above: Performed By: #### 5 902-2 #### ESTELITA LARKIN ([id number]) [facility] [address] [place] [address] 72679 MCHC (RBC) [Mass/Vol] 33.1 g/dL Normal 32.0-36.0 [facility] Comment on above: Performed By: #### 5 902-2 #### ESTELITA LARKIN ([id number]) [facility] [address] [place] [address] 96278 MCV (RBC) [Entitic vol] 97 fL Normal 80-100 [facility] Comment on above: Performed By: #### 5 902-2 #### ESTELITA LARKIN ([id number]) [facility] [address] [place] [address] 34955 Nucleated RBC/100 WBC (Bld) [Ratio] 0.0 /100 WBCs Normal 0.0-0.0 [facility] Comment on above: Performed By: #### 5 902-2 #### ESTELITA LARKIN ([id number]) [facility] [address] [place] [address] 36851 Platelets (Bld) [#/Vol] 235 x10*3/uL Normal 150-450 [facility] Comment on above: Performed By: #### 5 902-2 #### ESTELITA LARKIN ([id number]) [facility] [address] [place] [address] RBC (Bld) [#/Vol] 4.15 x10*6/uL Low 4.50-5.90 [facility] Comment on above: Performed By: #### 5 902-2 #### ESTELITA LARKIN ([id number]) [facility] [address] [place] [address] WBC (Bld) [#/Vol] 7.5 x10*3/uL Normal 4.4-11.3 [facility] Comment on above: Performed By: #### 5 902-2 #### ESTELITA LARKIN ([id number]) [facility] ([facility]) [address] [place] [address] 69898 FL FLUORO IMAGES NO CHARGEon 02-24-2024 FL FLUORO IMAGES NO CHARGE These images are not reportable by radiology and will not be interpreted by Radiologists. Normal [facility] OPERATIVE IMAGESon 4 OPERATIVE IMAGES Please see OpNote on Notes tab for findings. Normal [facility] Operative Imageson 4 Please see OpNote on Notes tab for findings. IMAGING Radiology Study observation (narrative) [facility] Work Phone: Operative ImagesOrdered By: Generic Optime on 02-24-2024 [facility] SST TOPon 02-24-2024 Extra Tube Hold for add-ons. [facility] Comment on above: Auto resulted. [facility] XR tomography Unspecified shamika dy regionon 02-24-2024 These images are not reportable by radiology and will not be interpreted by Radiologists. IMAGING Bacteria identifiedon 2023 Bacteria identified Cx Nom (Unsp spec) Test: Tissue/Wound Culture/Smear Specimen Source: Wound/Tissue Specimen Type: Tissue/Biopsy Specimen Date: 02/23/2024 0650 Result Date: 02/25/2024 0926 Result Status: Final result Abnormal: Yes Resulting Lab: [facility] [address] [facility] [address] CULTURE (4+) Abundant Methicillin Resistant Staphylococcus aureus (MRSA) (Abnormal) Methicillin (Oxacillin) resistant Staphylococci are resistant to all currently available Penicillins, Beta-lactam/Beta-lactamase inhibitor combinations (including Ampicillin/Sulbactam, Amoxicillin/Clavulanate and Pipercillin/Tazobactam), Carbapenems and Cephalosporins (except Ceftaroline). STAIN (2+) Few Polymorphonuclear leukocytes (2+) Few Gram positive cocci SUSCEPTIBILITY Methicillin Resistant Staphylococcus aureus (MRSA) METHOD MICROSCAN --- -- CLINDAMYCIN <=0.250 ug/ml Susceptible ERYTHROMYCIN >4 ug/ml Resistant OXACILLIN >2 ug/ml Resistant TETRACYCLINE <=2.000 ug/ml Susceptible TRIMETHOPRIM/SULFAMETHOXAZ OLE <=0.5/9.5 ug/ml Susceptible VANCOMYCIN 1.000 ug/ml Susceptible Abnormal [facility] Comment on above: Performed By: #### 5 902-2 #### ESTELITA LARKIN ([id number]) [facility] ([facility]) [address] [place] [address] 42756 ECG 12-LEADon 02-23-2024 ECG 12-LEAD Ventricular Rate 49 Atrial Rate 49 P-R Interval 156 QRS Duration 88 Q-T Interval 452 QTC Calculation(Bazett) 408 P Daisy 38 R Daisy 53 T Daisy 48 QRS Count 8 Q Onset 224 P Onset 146 P Offset 202 T Offset 450 QTC Fredericia 422 Diagnosis Sinus bradycardia with sinus arrhythmia Otherwise normal ECG When compared with ECG of 16-OCT-2015 11:18, No significant change was found Confirmed by Kris Segovia ([id number]) on 02/27/2024 10:05:52 AM Normal [facility] ([facility]) Lavly Topon 02-23-2024 Extra Tube Hold for add-ons. [facility] Comment on above: Auto resulted. [facility] Vancomycinon 02-23-2024 Vancomycin [Mass/Vol] 7.9 ug/mL 5.0 - 20.0 ug/mL [facility] Vancomycin [Mass/Vol] 7.9 ug/mL Normal 5.0-20.0 [facility] Comment on above: Order Comment: Vanco [...] By: #### 5 902-2 #### ESTELITA LARKIN ([id number]) [facility] ([facility]) [address] [place] [address] 75056 Vancomycin [Mass/Vol] 16.3 ug/mL 5.0 - 20.0 ug/mL [facility] Vancomycin [Mass/Vol] 16.3 ug/mL Normal 5.0-20.0 [facility] Comment on above: Order Comment: Vancomycin [...] By: #### 2 0578-1 #### ESTELITA LARKIN ([id number]) [facility] ([facility]) [address] [place] [address] 12827 Vancomycin [Mass/Vol]on 02-12 Interpretation and review of laboratory results Normal [facility] Vancomycin levels can be monitored according [...] 30.0-40.0 ug/mL Trough (all ages): 10.0-20.0 ug/mL [facility] Interpretation and review of laboratory results [facility] Vancomycin levels can be monitored according [...] 30.0-40.0 ug/mL Trough (all ages): 10.0-20.0 ug/mL [facility] Bacteria identifiedon 2023 Bacteria identified Cx Nom (Bld) Test: Blood Culture Specimen Source: Peripheral Venipuncture Specimen Type: Blood culture Specimen Date: 02/22/20242035 Result Date: 02/27/2024301 Result Status: Final result Abnormal: No Resulting Lab: [facility] [address] [place] [address] CULTURE No growth at 4 days - FINAL REPORT [facility] Comment on above: Performed By: #### 6 00-7 #### SERENE Sandra ([id number]) [facility] ([facility]) [address] [place] [address] Blood type and Indirect anti body screen panel (Bld)on 02-22-2024 ABO group Nom (Bld) A [facility] Blood group antibody screen Ql Negative [facility] D Ag Ql (Bld) Positive [facility] ABO group Nom (Bld) A Normal [facility] Comment on above: Performed By: #### 3 4532-2 #### ESTELITA LARKIN ([id number]) [facility] ([facility]) [address] [place] [address] Blood group antibody screen Ql Negative [facility] Comment on above: Performed By: #### 3 4532-2 #### ESTELITA LARKIN ([id number]) [facility] ([facility]) [address] [place] [address] D Ag Ql (Bld) Positive [facility] Comment on above: Performed By: #### 3 4532-2 #### ESTELITA LARKIN ([id number]) [facility] ([facility]) [address] C reactive proteinon 02-21- 024 CRP [Mass/Vol] 1.16 mg/dL High <1.00 [facility] Comment on above: Performed By: #### 1 988-5 #### ESTELITA LARKIN ([id number]) [facility] ([facility]) [address] [place] [address] C-reactive proteinon 024 CRP [Mass/Vol] 1.16 mg/dL High NINF - 1.00 mg/dL [facility] CBC W Auto Differential pane l (Bld)on 02-22-2024 Basophils (Bld) [#/Vol] 0.05 10*3/uL [facility] Basophils/100 WBC (Bld) 0.4 % 0.0 - 2.0 % [facility] Eosinophils (Bld) [#/Vol] 0.21 10*3/uL [facility] Eosinophils/100 WBC (Bld) 1.6 % 0.0 - 6.0 % [facility] Erythrocyte distribution width (RBC) [Ratio] 11.7 % 11.5 - 14.5 % [facility] Hematocrit (Bld) [Volume fraction] 41.6 % 41.0 - 52.0 % [facility] Hemoglobin (Bld) [Mass/Vol] 14.3 g/dL 13.5 - 17.5 g/dL [facility] Immature granulocytes (Bld) [#/Vol] 0.06 10*3/uL [facility] Immature granulocytes/100 WBC (Bld) 0.5 % 0.0 - 0.9 % [facility] Comment on above: Immature Granulocyte Count (IG) includes promyelocytes, myelocytes and metamyelocytes but does not include bands. Percent differential counts (%) should be interpreted in the context of the absolute cell counts (cells/UL). Interpretation and review of laboratory results Abnormal [facility] Lymphocytes (Bld) [#/Vol] 2.31 10*3/uL [facility] Lymphocytes/100 WBC (Bld) 17.7 % 13.0 - 44.0 % [facility] MCH (RBC) [Entitic mass] 32.2 pg 26.0 - 34.[address] [facility] MCHC (RBC) [Mass/Vol] 34.4 g/dL 32.0 - 36.0 g/dL [facility] MCV (RBC) [Entitic vol] 94 fL 80 - [address] [facility] Monocytes (Bld) [#/Vol] 0.95 10*3/uL [facility] Monocytes/100 WBC (Bld) 7.3 % 2.0 - 10.0 % [facility] Neutrophils (Bld) [#/Vol] 9.46 10*3/uL High [facility] Comment on above: Percent differential counts (%) should be interpreted in the context of the absolute cell counts (cells/uL). Neutrophils/100 WBC (Bld) 72.5 % 40.0 - 80.0 % [facility] Nucleated RBC/100 WBC (Bld) [Ratio] 0 % [facility] Platelets (Bld) [#/Vol] 262 10*3/uL [facility] RBC (Bld) [#/Vol] 4.44 10*6/uL [facility] WBC (Bld) [#/Vol] 13 10*3/uL [facility] Basophils (Bld) [#/Vol] 0.05 x10*3/uL Normal 0.00-0.10 [facility] Comment on above: Performed By: #### 5 7021-8 #### ESTELITA LARKIN ([id number]) [facility] ([facility]) [address] [place] [address] 28884 Basophils/100 WBC (Bld) 0.4 % Normal 0.0-2.0 [facility] Comment on above: Performed By: #### 5 7021-8 #### ETSELITA LARKIN ([id number]) [facility] ([facility]) [address] [place] [address] 04051 Eosinophils (Bld) [#/Vol] 0.21 x10*3/uL Normal 0.00-0.70 [facility] Comment on above: Performed By: #### 5 7021-8 #### ESTELITA LARKIN ([id number]) [facility] ([facility]) [address] [place] [address] 20275 Eosinophils/100 WBC (Bld) 1.6 % Normal 0.0-6.0 [facility] Comment on above: Performed By: #### 5 7021-8 #### ESTELITA LARKIN ([id number]) [facility] ([facility]) [address] [place] [address] 33185 Erythrocyte distribution width (RBC) [Ratio] 11.7 % Normal 11.5-14.5 [facility] Comment on above: Performed By: #### 5 7021-8 #### ESTELITA LARKIN ([id number]) [facility] ([facility]) [address] [place] [address] 04037 Hematocrit (Bld) [Volume fraction] 41.6 % Normal 41.0-52.0 [facility] Comment on above: Performed By: #### 5 7021-8 #### ESTELITA LARKIN ([id number]) [facility] ([facility]) [address] [place] [address] 03786 Hemoglobin (Bld) [Mass/Vol] 14.3 g/dL Normal 13.5-17.5 [facility] Comment on above: Performed By: #### 5 7021-8 #### ESTELITA LARKIN ([id number]) [facility] ([facility]) [address] [place] [address] 97230 Immature granulocytes (Bld) [#/Vol] 0.06 x10*3/uL Normal 0.00-0.70 [facility] Comment on above: Performed By: #### 5 7021-8 #### ESTELITA LARKIN ([id number]) [facility] ([facility]) [address] [place] [address] 24170 Immature granulocytes/100 WBC (Bld) 0.5 % Normal 0.0-0.9 [facility] Comment on above: Result Comment: Tamiko ture Granulocyte Count (IG) includes promyelocytes, myelocytes and metamyelocytes but does not include bands. Percent differential counts (%) should be interpreted in the context of the absolute cell counts (cells/UL). Performed By: #### 5 7021-8 #### ESTELITA LARKIN ([id number]) [facility] ([facility]) [address] [place] [address] 33118 Lymphocytes (Bld) [#/Vol] 2.31 x10*3/uL Normal 1.20-4.80 [facility] Comment on above: Performed By: #### 5 7021-8 #### ESTELITA LARKIN ([id number]) [facility] ([facility]) [address] [place] [address] 48608 Lymphocytes/100 WBC (Bld) 17.7 % Normal 13.0-44.0 [facility] Comment on above: Performed By: #### 5 7021-8 #### ESTELITA LARKIN ([id number]) [facility] ([facility]) [address] [place] [address] 14984 MCH (RBC) [Entitic mass] 32.2 pg Normal 26.0-34.0 [facility] Comment on above: Performed By: #### 5 7021-8 #### ESTELITA LARKIN ([id number]) [facility] ([facility]) [address] [place] [address] 26677 MCHC (RBC) [Mass/Vol] 34.4 g/dL Normal 32.0-36.0 [facility] Comment on above: Performed By: #### 5 7021-8 #### ESTELITA LARKIN ([id number]) [facility] ([facility]) [address] [place] [address] 29949 MCV (RBC) [Entitic vol] 94 fL Normal 80-100 [facility] Comment on above: Performed By: #### 5 7021-8 #### ESTELITA LARKIN ([id number]) [facility] ([facility]) [address] [place] [address] 71889 Monocytes (Bld) [#/Vol] 0.95 x10*3/uL Normal 0.10-1.00 [facility] Comment on above: Performed By: #### 5 7021-8 #### ESTELITA LARKIN ([id number]) [facility] ([facility]) [address] [place] [address] 72480 Monocytes/100 WBC (Bld) 7.3 % Normal 2.0-10.0 [facility] Comment on above: Performed By: #### 5 7021-8 #### ESTELITA LARKIN ([id number]) [facility] ([facility]) [address] [place] [address] 33269 Neutrophils (Bld) [#/Vol] 9.46 x10*3/uL High 1.20-7.70 [facility] Comment on above: Result Comment: Perc ent differential counts (%) should be interpreted in the context of the absolute cell counts (cells/uL). Performed By: #### 5 7021-8 #### ESTELITA LARKIN ([id number]) [facility] ([facility]) [address] [place] [address] 58690 Neutrophils/100 WBC (Bld) 72.5 % Normal 40.0-80.0 [facility] Comment on above: Performed By: #### 5 7021-8 #### ESTELITA LARKIN ([id number]) [facility] ([facility]) [address] [place] [address] 21801 Nucleated RBC/100 WBC (Bld) [Ratio] 0.0 /100 WBCs Normal 0.0-0.0 [facility] Comment on above: Performed By: #### 5 7021-8 #### ESTELITA LARKIN ([id number]) [facility] ([facility]) [address] [place] [address] 75164 Platelets (Bld) [#/Vol] 262 x10*3/uL Normal 150-450 [facility] Comment on above: Performed By: #### 5 7021-8 #### ESTELITA LARKIN ([id number]) [facility] ([facility]) [address] [place] [address] 44766 RBC (Bld) [#/Vol] 4.44 x10*6/uL Low 4.50-5.90 [facility] Comment on above: Performed By: #### 5 7021-8 #### ESTELITA LARKIN ([id number]) [facility] ([facility]) [address] [place] [address] 87615 WBC (Bld) [#/Vol] 13.0 x10*3/uL High 4.4-11.3 [facility] Comment on above: Performed By: #### 5 7021-8 #### AVTARIBKARI LARKIN ([id number]) [facility] ([facility]) [address] [place] [address] 24183 CRP [Mass/Vol]on 02-22-2024 Interpretation and review of laboratory results Abnormal [facility] CT CHEST W IV CONTRASTon CT CHEST W IV CONTRAST Interpreted By: Phillip Mojica, STUDY: CT CHEST W IV CONTRAST; 02/22/2024 10:18 pm INDICATION: Signs/Symptoms:multiple abscess to Left armpit. COMPARISON: None. ACCESSION NUMBER(S): [id number] ORDERING CLINICIAN: HALEY YATES TECHNIQUE: Contiguous axial [...] Phillip Mojica 02/22/2024 11:09 PM Dictation workstation: [id number] [facility] CT Chest W contrast Pee Multiple [...] Phillip Mojica 02/22/2024 11:09 PM Dictation workstation: [id number] [id number] Interpreted By: Phillip Varner, STUDY: CT CHEST W IV CONTRAST; 02/22/2024 10:18 pm INDICATION: Signs/Symptoms:multiple abscess to Left armpit. COMPARISON: None. ACCESSION NUMBER(S): [id number] ORDERING CLINICIAN: HALEY YATES TECHNIQUE: Contiguous axial [...] to Left armpit. COMPARISON: None. ACCESSION NUMBER(S): [id number] ORDERING CLINICIAN: HALEY YATES TECHNIQUE: Contiguous axial [...] consider CT chest at 18-24 months. (Lorenzo Camilo et al., Guidelines for management of incidental pulmonary nodules detected on CT images: From the Fleischner Society 2017, Radiology. 2017 [place];284 (1):228-243.) [email or web address] Signed by: Phillip Mojica 02/22/2024 11:09 PM Dictation workstation: [id number] [facility] Work Phone: Radiology Study observation (narrative) [facility] Work Phone: CT Chest W contrast IVOrdere d By: Phillip Mojica on 02-22-2024 [facility] Work Phone: Coagulation tissue factor in ducedon 02-22-2024 PT Coag (PPP) [Time] 12.7 s Normal 9.8-12.8 [facility] Comment on above: Performed By: #### 5 902-2 #### ESTELITA LARKIN ([id number]) [facility] ([facility]) [address] [place] [address] Comprehensive metabolic 2000 panelon 02-22-2024 Albumin BCP dye [Mass/Vol] 4.4 g/dL 3.4 - 5.0 g/dL [facility] ALP [Catalytic activity/Vol] 69 U/L 33 - 120 U/L [facility] ALT With P-5'-P [Catalytic activity/Vol] 15 U/L 10 - 52 U/L [facility] Comment on above: Patients treated wit h Sulfasalazine may generate falsely decreased results for ALT. Anion gap [Moles/Vol] 12 mmol/L 10 - 2 0 mmol/L [facility] AST With P-5'-P [Catalytic activity/Vol] 11 U/L 9 - 39 U/L [facility] Bilirubin [Mass/Vol] 0.4 mg/dL 0.0 - 1 .2 mg/dL [facility] Calcium [Mass/Vol] 9.2 mg/dL 8.6 - 10. 3 mg/dL [facility] Chloride [Moles/Vol] 103 mmol/L 98 - 10 7 mmol/L [facility] CO2 [Moles/Vol] 27 mmol/L 21 - 32 mmol/L [facility] Creatinine [Mass/Vol] 1.04 mg/dL 0.50 - 1.30 mg/dL [facility] eGFR - PINF [facility] Comment on above: Calculations of katie mated GFR are performed using the 2020 CKD-EPI Study Refit equation without the race variable for the IDMS-Traceable creatinine methods. https://jasn.asnjournals.org/content//ASN.524805 2657 Glucose [Mass/Vol] 100 mg/dL High 74 - 99 mg/dL [facility] Interpretation and review of laboratory results Abnormal [facility] Potassium [Moles/Vol] 3.9 mmol/L 3.5 - 5.3 mmol/L [facility] Protein [Mass/Vol] 7.4 g/dL 6.4 - 8.2 g/dL [facility] Sodium [Moles/Vol] 138 mmol/L 136 - 145 mmol/L [facility] Urea nitrogen [Mass/Vol] 20 mg/dL 6 - 23 mg/dL [facility] Albumin BCP dye [Mass/Vol] 4.4 g/dL Normal 3.4-5.0 [facility] Comment on above: Performed By: #### 2 4323-8 #### ESTELITA LARKIN ([id number]) [facility] ([facility]) [address] [place] [address] ALP [Catalytic activity/Vol] 69 U/L Normal 33-120 [facility] Comment on above: Performed By: #### 2 4323-8 #### ESTELITA LARKIN ([id number]) [facility] ([facility]) [address] [place] [address] ALT With P-5'-P [Catalytic activity/Vol] 15 U/L Normal 10-52 [facility] Comment on above: Result Comment: Elvi ents treated with Sulfasalazine may generate falsely decreased results for ALT. Performed By: #### 2 4323-8 #### ESTELITA LARKIN ([id number]) [facility] ([facility]) [address] [place] [address] 29904 Anion gap [Moles/Vol] 12 mmol/L Normal 10-20 [facility] Comment on above: Performed By: #### 2 4323-8 #### ESTELITA LARKIN ([id number]) [facility] ([facility]) [address] [place] [address] 58029 AST With P-5'-P [Catalytic activity/Vol] 11 U/L Normal 9-39 [facility] Comment on above: Performed By: #### 2 4323-8 #### AVTARIBKARI LARKIN ([id number]) [facility] ([facility]) [address] [place] [address] 12530 Bilirubin [Mass/Vol] 0.4 mg/dL Normal 0.0-1.2 [facility] Comment on above: Performed By: #### 2 4323-8 #### AVTARIBKARI LARKIN ([id number]) [facility] ([facility]) [address] [place] [address] 01819 Calcium [Mass/Vol] 9.2 mg/dL Normal 8.6-10.3 [facility] Comment on above: Performed By: #### 2 4323-8 #### ESTELITA LARKIN ([id number]) [facility] ([facility]) [address] [place] [address] Chloride [Moles/Vol] 103 mmol/L Normal 98-107 [facility] Comment on above: Performed By: #### 2 4323-8 #### ESTELITA LARKIN ([id number]) [facility] ([facility]) [address] [place] [address] CO2 [Moles/Vol] 27 mmol/L Normal 21-32 [facility] Comment on above: Performed By: #### 2 4323-8 #### ESTELITA LARKIN ([id number]) [facility] ([facility]) [address] [place] [address] 36944 Creatinine [Mass/Vol] 1.04 mg/dL Normal 0.50-1.30 [facility] Comment on above: Performed By: #### 2 4323-8 #### ESTELITA LARKIN ([id number]) [facility] ([facility]) [address] [place] [address] 35872 GFR/1.73 sq M.predicted MDRD (S/P/Bld) [Vol rate/Area] mL/min/{1.73_m2} Normal >60 [facility] Comment on above: Result Comment: Calc ulations of estimated GFR are performed using the 2020 CKD-EPI Study Refit equation without the race variable for the IDMS-Traceable creatinine methods. https://jasn.asnjournals.org/content//ASN.937320 0351 Performed By: #### 2 4323-8 #### ESTELITA LARKIN ([id number]) [facility] ([facility]) [address] [place] [address] Glucose [Mass/Vol] 100 mg/dL High 74-99 [facility] Comment on above: Performed By: #### 2 4323-8 #### ESTELITA LARKIN ([id number]) [facility] ([facility]) [address] [place] [address] 89773 Potassium [Moles/Vol] 3.9 mmol/L Normal 3.5-5.3 [facility] Comment on above: Performed By: #### 2 4323-8 #### AVTARIBKARI MCDANIEL RIO BANDAR ([id number]) [facility] ([facility]) [address] [place] [address] 02221 Protein [Mass/Vol] 7.4 g/dL Normal 6.4-8.2 [facility] Comment on above: Performed By: #### 2 4323-8 #### ESTELITA LARKIN ([id number]) [facility] ([facility]) [address] [place] [address] 36141 Sodium [Moles/Vol] 138 mmol/L Normal 136-145 [facility] Comment on above: Performed By: #### 2 4323-8 #### ESTELITA LARKIN ([id number]) [facility] ([facility]) [address] [place] [address] 88109 Urea nitrogen [Mass/Vol] 20 mg/dL Normal 6-23 [facility] Comment on above: Performed By: #### 2 4323-8 #### ESTELITA MCDANIEL RIO BANDAR ([id number]) [facility] ([facility]) [address] [place] [address] 83259 ESR Westergren method (Bld) [Velocity]on 02-22-2024 ESR (Bld) [Velocity] 25 mm/h High 0 - 15 mm/h [facility] Interpretation and review of laboratory results Abnormal [facility] ESR (Bld) [Velocity] 25 mm/h High 0-15 [facility] Comment on above: Performed By: #### 4 537-7 #### ESTELITA LARKIN ([id number]) [facility] ([facility]) [address] [place] [address] PT Coag (PPP) [Time]on 02-21 INR Coag (PPP) [Relative time] 1.1 {INR} 0.9 - 1.1 [facility] Interpretation and review of laboratory results Normal [facility] INR Coag (PPP) [Relative time] 1.1 Normal 0.9-1.1 [facility] Comment on above: Performed By: #### 5 902-2 #### ESTELITA LARKIN ([id number]) [facility] ([facility]) [address] [place] [address] Protime-INRon 02-22-2024 PT Coag (PPP) [Time] 12.7 s [facility] SST TOPon 02-22-2024 Extra Tube Hold for add-ons. [facility] Comment on above: Auto resulted. [facility] MR CERVICAL SPINE WO IV CONT RASTon 02-17-2024 MR CERVICAL SPINE WO IV CONTRAST Interpreted By: Luana Lawson and Lawrence Austen STUDY: MR CERVICAL SPINE WO IV CONTRAST; MR LUMBAR SPINE W AND WO IV CONTRAST; MR THORACIC SPINE WO IV CONTRAST; 02/17/2024 7:08 pm; 02/17/2024 7:09 pm INDICATION: Signs/Symptoms:pain. ,M54.10 Radiculopathy, site unspecified COMPARISON: Radiograph 10/19/2017, MRI 08/17/2016. ACCESSION NUMBER(S): [id number]; [id number]; [id number] ORDERING CLINICIAN: SHA FOSTER TECHNIQUE: Sagittal T1, [...] and bilateral C6- (more content not included)... [facility] Comment on above: Order Comment: [facility] el [...] COMPARISON: Radiograph 10/19/2017, MRI 08/17/2016. ACCESSION NUMBER(S): [id number]; [id number]; [id number] ORDERING CLINICIAN: SHA FOSTER TECHNIQUE: Sagittal T1, [...] and bilateral C6- (more content not included)... [facility] Comment on above: Order Comment: QUINTIN TOLEDO MR THORACIC SPINE WO IV CONT [facility] 02-17-2024 MR THORACIC SPINE WO IV CONTRAST Interpreted By: Luana Lawson and Lawrence Austen STUDY: MR CERVICAL SPINE WO IV CONTRAST; MR LUMBAR SPINE W AND WO IV CONTRAST; MR THORACIC SPINE WO IV CONTRAST; 02/17/2024 7:08 pm; 02/17/2024 7:09 pm INDICATION: Signs/Symptoms:pain. ,M54.10 Radiculopathy, site unspecified COMPARISON: Radiograph 10/19/2017, MRI 08/17/2016. ACCESSION NUMBER(S): [id number]; [id number]; [id number] ORDERING CLINICIAN: SHA FOSTER TECHNIQUE: Sagittal T1, [...] bilateral C6- (more content not included)... Normal [facility] Comment on above: Order Comment: Vinnie soriano C-Reactive Proteinon 024 CRP High sensitivity method [Mass/Vol] mg/L 0.0 - 5.0 mg/L [facility] CRP [Mass/Vol] mg/L Normal 0.0-5.0 [facility] Comment on above: Performed By: #### C RP #### [facility] [address] [place] [address] CBC W Auto Differential pane l (Bld)on 01-29-2024 Interpretation and review of laboratory results Abnormal [facility] MCHC (RBC) [Mass/Vol] 34.2 % 33.0 - 37.0 % [facility] Segmented neutrophils/100 WBC (Bld) 60.7 % [facility] CBC With Platelet and Differ entialon 01-29-2024 Basophils (Bld) [#/Vol] 0.1 10*3/uL Normal 0.0-0.2 [facility] Comment on above: Performed By: #### C BCWD #### [facility] [address] [place] [address] Basophils/100 WBC (Bld) 0.5 % Normal [facility] Comment on above: Performed By: #### C BCWD #### [facility] [address] [place] [address] Eosinophils (Bld) [#/Vol] 0.5 10*3/uL Normal 0.0-0.7 [facility] Comment on above: Performed By: #### C BCWD #### [facility] [address] [place] [address] Eosinophils/100 WBC (Bld) 4.8 % Normal [facility] Comment on above: Performed By: #### C BCWD #### [facility] [address] [place] [address] Erythrocyte distribution width (RBC) [Ratio] 12.6 % Normal 11.5-14.5 [facility] Comment on above: Performed By: #### C BCWD #### [facility] [address] [place] [id number] Hematocrit (Bld) [Volume fraction] 43.8 % Normal 42.0-52.0 [facility] Comment on above: Performed By: #### C BCWD #### [facility] [address] [place] [address] Hemoglobin (Bld) [Mass/Vol] 15.0 g/dL Normal 14.0-18.0 [facility] Comment on above: Performed By: #### C BCWD #### [facility] [address] [place] [address] Lymphocytes (Bld) [#/Vol] 2.4 10*3/uL Normal 1.0-4.8 [facility] Comment on above: Performed By: #### C BCWD #### [facility] [address] [place] [address] Lymphocytes/100 WBC (Bld) 24.9 % Normal [employer] Comment on above: Performed By: #### C BCWD #### [facility] [address] [place] [address] MCH (RBC) [Entitic mass] 32.7 pg Critically high 27.0-31.3 [employer] Comment on above: Performed By: #### C BCWD #### [facility] [address] [place] [address] MCHC 34.2 % Normal 33.0-37.0 [facility] Comment on above: Performed By: #### C BCWD #### [facility] [address] [place] [address] MCV (RBC) [Entitic vol] 95.4 fL Critically high 79.0-92.2 [facility] Comment on above: Performed By: #### C BCWD #### [facility] [address] [place] [address] Monocytes (Bld) [#/Vol] 0.9 10*3/uL Critically high 0.2-0.8 [facility] Comment on above: Performed By: #### C BCWD #### [facility] [address] [place] [address] Monocytes/100 WBC (Bld) 8.8 % Normal [facility] Comment on above: Performed By: #### C BCWD #### [facility] [address] [place] [address] Neutrophils (Bld) [#/Vol] 5.9 10*3/uL Normal 1.4-6.5 [facility] Comment on above: Performed By: #### C BCWD #### [facility] [address] [place] [address] Neutrophils/100 WBC (Bld) 60.7 % Normal [facility] Comment on above: Performed By: #### C BCWD #### [facility] [address] [place] [address] Platelets (Bld) [#/Vol] 316 10*3/uL Normal 130-400 [facility] Comment on above: Performed By: #### C BCWD #### [facility] [address] [place] [address] RBC (Bld) [#/Vol] 4.59 10*6/uL Low 4.70-6.10 [facility] Comment on above: Performed By: #### C BCWD #### [facility] [address] [place] [address] WBC (Bld) [#/Vol] 9.6 10*3/uL Normal 4.8-10.8 [facility] Comment on above: Performed By: #### C BCWD #### [facility] [address] [place] [address] CRP High sensitivity method [Mass/Vol]on 01-29-2024 [facility] Comprehensive Metabolic Pane ashok 01-29-2024 Albumin [Mass/Vol] 3.9 g/dL Normal 3.5-4.6 [facility] Comment on above: Performed By: #### C MP #### [facility] [address] [place] [address] ALP [Catalytic activity/Vol] 62 U/L Normal 35-104 [facility] Comment on above: Performed By: #### C MP #### [facility] [address] [place] [address] ALT [Catalytic activity/Vol] 9 U/L Normal 0-41 [facility] Comment on above: Performed By: #### C MP #### [facility] [address] [place] [address] Anion gap [Moles/Vol] 8 mmol/L Low 9-15 [facility] Comment on above: Performed By: #### C MP #### [facility] [address] [place] [address] AST [Catalytic activity/Vol] 9 U/L Normal 0-40 [facility] Comment on above: Performed By: #### C MP #### [facility] [address] [place] [address] Bilirubin [Mass/Vol] mg/dL Normal 0.2-0.7 [facility] Comment on above: Performed By: #### C MP #### [facility] [address] [place] [address] Calcium [Mass/Vol] 8.8 mg/dL Normal 8.5-9.9 [facility] Comment on above: Performed By: #### C MP #### [facility] [address] [place] [address] Chloride [Moles/Vol] 105 mmol/L Normal 95-107 [facility] Comment on above: Performed By: #### C MP #### [facility] [address] [place] [address] CO2 [Moles/Vol] 27 mmol/L Normal 20-31 [facility] Comment on above: Performed By: #### C MP #### [facility] [address] [place] [address] Creatinine [Mass/Vol] 1.15 mg/dL Normal 0.70-1.20 [facility] Comment on above: Performed By: #### C MP #### [facility] [address] [place] [address] GFR 81.3 Normal >60 [facility] Comment on above: Result Comment: Pedi atric [...] secretion. Performed By: #### C MP #### [facility] [address] [place] [address] Globulin (S) [Mass/Vol] 2.7 g/dL Normal 2.3-3.5 [facility] Comment on above: Performed By: #### C MP #### [facility] [address] [place] [address] Glucose [Mass/Vol] 85 mg/dL Normal 70-99 [facility] Comment on above: Performed By: #### C MP #### [facility] [address] [place] [address] Potassium [Moles/Vol] 4.0 mmol/L Normal 3.4-4.9 [facility] Comment on above: Performed By: #### C MP #### [facility] [address] [place] [address] Protein [Mass/Vol] 6.6 g/dL Normal 6.3-8.0 [facility] Comment on above: Performed By: #### C MP #### [facility] [address] [place] [address] Sodium [Moles/Vol] 140 mmol/L Normal 135-144 [facility] Comment on above: Performed By: #### C MP #### [facility] [address] [place] [address] Urea nitrogen [Mass/Vol] 20 mg/dL Normal 6-20 [facility] Comment on above: Performed By: #### C MP #### [facility] [address] [place] [address] Comprehensive metabolic 2000 panelon 01-29-2024 Albumin [Mass/Vol] 3.9 g/dL 3.5 - 4.6 g/dL [facility] ALP [Catalytic activity/Vol] 62 U/L 35 - 104 U/L [facility] ALT [Catalytic activity/Vol] 9 U/L 0 - 41 U/L [facility] Anion gap [Moles/Vol] 8 mmol/L Low [facility] AST [Catalytic activity/Vol] 9 U/L 0 - 40 U/L [facility] Bilirubin [Mass/Vol] mg/dL 0.2 - 0 .7 mg/dL [facility] Calcium [Mass/Vol] 8.8 mg/dL 8.5 - 9.9 mg/dL [facility] Chloride [Moles/Vol] 105 mmol/L [facility] CO2 [Moles/Vol] 27 mmol/L [facility] Creatinine [Mass/Vol] 1.15 mg/dL 0.70 - 1.20 mg/dL [facility] GFR/1.73 sq M.predicted among non-blacks MDRD (S/P/Bld) [Vol rate/Area] 81.3 mL/min/{1.73_m2} 60 - PINF [facility] Comment on above: Pediatric calculator link [...] [Mass/Vol] 2.7 g/dL 2.3 - 3.5 g/dL [facility] Glucose [Mass/Vol] 85 mg/dL 70 - 99 mg/dL [facility] Interpretation and review of laboratory results Abnormal [facility] Potassium [Moles/Vol] 4.0 mmol/L [facility] Protein [Mass/Vol] 6.6 g/dL 6.3 - 8.0 g/dL [facility] Sodium [Moles/Vol] 140 mmol/L [facility] Urea nitrogen [Mass/Vol] 20 mg/dL 6 - 20 mg/dL [facility] ESR Westergren method (Bld) [Velocity]on 01-29-2024 ESR (Bld) [Velocity] 7 mm 0 - 10 mm [facility] Comment on above: ESR Units mm/Hr [facility] Sedimentation Rateon 024 Sedimentation Rate 7 mm Normal 0-10 [facility] Comment on above: Result Comment: ESR Units mm/Hr Performed By: #### E SR #### [facility] [address] [place] [address] Urinalysis with Reflex to Cu ltureon 01-29-2024 Glucose Test strip (U) [Mass/Vol] Negative Negative mg/dL [facility] Interpretation and review of laboratory results Abnormal [facility] Ketones (U) [Mass/Vol] Negative Negative mg/dL [facility] Protein (U) [Mass/Vol] Negative Negative mg/dL [facility] Urine Reflex to Culture Not Indicated [facility] Urobilinogen Qn (U) 0.2 NINF [facility] Urinalysis, reflex to cultur stephen 01-29-2024 Bilirubin Ql (U) Negative Normal Negative [facility] Comment on above: Performed By: #### U AR #### [facility] [address] [place] [address] Clarity (U) TURBID Abnormal Clear [facility] Comment on above: Performed By: #### U AR #### [facility] [address] [place] [address] Color (U) Yellow Normal Straw/Telfair [facility] Comment on above: Performed By: #### U AR #### [facility] [address] [place] [address] Glucose Ql (U) Negative Normal Negative [facility] Comment on above: Performed By: #### U AR #### [facility] [address] [place] [address] Hemoglobin Ql (U) Negative Normal Negative [facility] Comment on above: Performed By: #### U AR #### [facility] [address] [place] [address] Ketones Ql (U) Negative Normal Negative [facility] Comment on above: Performed By: #### U AR #### [facility] [address] [place] [address] Leukocyte esterase Test strip Ql (U) Negative Normal Negative [facility] Comment on above: Performed By: #### U AR #### [facility] [address] [place] [address] Nitrite Ql (U) Negative Normal Negative [facility] Comment on above: Performed By: #### U AR #### [facility] [address] [place] [address] pH (U) 7.0 [pH] Normal 5.0-9.0 [facility] Comment on above: Performed By: #### U AR #### [facility] [address] [place] [address] Protein Ql (U) Negative Normal Negative [facility] Comment on above: Performed By: #### U AR #### [facility] [address] [place] [address] Specific gravity (U) [Rel density] 1.022 Normal 1.005-1.03 [facility] Comment on above: Performed By: #### U AR #### [facility] [address] [place] [address] Urine Reflexed to Culture Not Indicated Normal [facility] Comment on above: Performed By: #### U AR #### [facility] [address] [place] [address] Urobilinogen Qn (U) 0.2 {Bassam'U}/dL Normal < 2.0 [facility] Comment on above: Performed By: #### U AR #### [facility] [address] [place] [address] XR LUMBAR SPINE (2-3 VIEWS)o n 11-14-2023 [...] Kevin Alexander DO 11/14/23 Final result Normal [facility] CBC With Platelet and Differ entialon 08-28-2023 Basophils (Bld) [#/Vol] 0.1 10*3/uL Normal 0.0-0.2 [facility] Comment on above: Performed By: #### C BCWD #### [facility] [address] [place] [address] Basophils/100 WBC (Bld) 0.5 % Normal [facility] Comment on above: Performed By: #### C BCWD #### [facility] [address] [place] [address] Eosinophils (Bld) [#/Vol] 0.3 10*3/uL Normal 0.0-0.7 [facility] Comment on above: Performed By: #### C BCWD #### [facility] [address] [place] [address] Eosinophils/100 WBC (Bld) 2.7 % Normal [facility] Comment on above: Performed By: #### C BCWD #### [facility] [address] [place] [address] Erythrocyte distribution width (RBC) [Ratio] 11.7 % Normal 11.5-14.5 [facility] Comment on above: Performed By: #### C BCWD #### [facility] [address] [place] [address] Hematocrit (Bld) [Volume fraction] 41.5 % Low 42.0-52.0 [facility] Comment on above: Performed By: #### C BCWD #### [facility] [address] [place] [address] Hemoglobin (Bld) [Mass/Vol] 14.2 g/dL Normal 14.0-18.0 [facility] Comment on above: Performed By: #### C BCWD #### [facility] [address] [place] [address] Lymphocytes (Bld) [#/Vol] 3.1 10*3/uL Normal 1.0-4.8 [facility] Comment on above: Performed By: #### C BCWD #### [facility] [address] [place] [address] Lymphocytes/100 WBC (Bld) 28.7 % Normal [facility] Comment on above: Performed By: #### C BCWD #### [facility] [address] [place] [address] MCH (RBC) [Entitic mass] 32.0 pg Critically high 27.0-31.3 [facility] Comment on above: Performed By: #### C BCWD #### [facility] [address] [place] [address] MCHC 34.2 % Normal 33.0-37.0 [facility] Comment on above: Performed By: #### C BCWD #### [facility] [address] [place] [address] MCV (RBC) [Entitic vol] 93.5 fL Critically high 79.0-92.2 [facility] Comment on above: Performed By: #### C BCWD #### [facility] [address] [place] [address] Monocytes (Bld) [#/Vol] 1.0 10*3/uL Critically high 0.2-0.8 [facility] Comment on above: Performed By: #### C BCWD #### [facility] [address] [place] [address] Monocytes/100 WBC (Bld) 9.5 % Normal [facility] Comment on above: Performed By: #### C BCWD #### [facility] [address] [place] [address] Neutrophils (Bld) [#/Vol] 6.4 10*3/uL Normal 1.4-6.5 [facility] Comment on above: Performed By: #### C BCWD #### [facility] [address] [place] [address] Neutrophils/100 WBC (Bld) 58.3 % Normal [facility] Comment on above: Performed By: #### C BCWD #### [facility] [address] [place] [address] Platelets (Bld) [#/Vol] 223 10*3/uL Normal 130-400 [facility] Comment on above: Performed By: #### C BCWD #### [facility] [address] [place] [address] RBC (Bld) [#/Vol] 4.44 10*6/uL Low 4.70-6.10 [facility] Comment on above: Performed By: #### C BCWD #### [facility] [address] [place] [address] WBC (Bld) [#/Vol] 10.9 10*3/uL Critically high 4.8-10.8 [facility] Comment on above: Performed By: #### C BCWD #### [facility] [address] [place] [address] CT CERVICAL SPINE WO CONTRAS Ton 08-28-2023 [...] Kevin Alexander DO 08/28/23 Final result Normal [facility] CT LUMBAR SPINE WO CONTRASTo n 08-28-2023 [...] Kevin Alexander DO 08/28/23 Final result Normal [facility] CT THORACIC SPINE WO CONTRAS Ton 08-28-2023 [...] Kevin Alexander DO 08/28/23 Final result Normal [facility] Comprehensive Metabolic Pane ashok 08-28-2023 Albumin [Mass/Vol] 4.6 g/dL Normal 3.5-4.6 [facility] Comment on above: Performed By: #### C MP #### [facility] [address] [place] [address] ALP [Catalytic activity/Vol] 70 U/L Normal 35-104 [facility] Comment on above: Performed By: #### C MP #### [facility] [address] [place] [address] ALT [Catalytic activity/Vol] 13 U/L Normal 0-41 [facility] Comment on above: Performed By: #### C MP #### [facility] [address] [place] [address] Anion gap [Moles/Vol] 11 mmol/L Normal 9-15 [facility] Comment on above: Performed By: #### C MP #### [facility] [address] [place] [address] AST [Catalytic activity/Vol] 13 U/L Normal 0-40 [facility] Comment on above: Performed By: #### C MP #### [facility] [address] [place] [address] Bilirubin [Mass/Vol] mg/dL Normal 0.2-0.7 [facility] Comment on above: Performed By: #### C MP #### [facility] [address] [place] [address] Calcium [Mass/Vol] 9.2 mg/dL Normal 8.5-9.9 [facility] Comment on above: Performed By: #### C MP #### [facility] [address] [place] [address] Chloride [Moles/Vol] 105 mmol/L Normal 95-107 [facility] Comment on above: Performed By: #### C MP #### [facility] [address] [place] [address] CO2 [Moles/Vol] 25 mmol/L Normal 20-31 [facility] Comment on above: Performed By: #### C MP #### [facility] [address] [place] [address] Creatinine [Mass/Vol] 1.15 mg/dL Normal 0.70-1.20 [facility] Comment on above: Performed By: #### C MP #### [facility] [address] [place] [address] GFR 81.5 Normal >60 [facility] Comment on above: Result Comment: Abbie atric [...] secretion. Performed By: #### C MP #### [facility] [address] [place] [address] Globulin (S) [Mass/Vol] 2.9 g/dL Normal 2.3-3.5 [facility] Comment on above: Performed By: #### C MP #### [facility] [address] [place] [address] Glucose [Mass/Vol] 97 mg/dL Normal 70-99 [facility] Comment on above: Performed By: #### C MP #### [facility] [address] [place] [address] Potassium [Moles/Vol] 3.6 mmol/L Normal 3.4-4.9 [facility] Comment on above: Performed By: #### C MP #### [facility] [address] [place] [address] Protein [Mass/Vol] 7.5 g/dL Normal 6.3-8.0 [facility] Comment on above: Performed By: #### C MP #### [facility] [address] [place] [address] Sodium [Moles/Vol] 141 mmol/L Normal 135-144 [facility] Comment on above: Performed By: #### C MP #### [facility] [address] [place] [address] Urea nitrogen [Mass/Vol] 22 mg/dL Critically high 6-20 [facility] Comment on above: Performed By: #### C MP #### [facility] [address] [place] [address] XR Lumbar spine 4 Viewson Interpreted By: Sha Chacon, STUDY: XR LUMBAR SPINE COMPLETE 4+ VIEWS; ; 05/04/2023 4:17 pm INDICATION: Signs/Symptoms:pain. ACCESSION NUMBER(S): [id number] ORDERING CLINICIAN: SHA FOSTER FINDINGS: AP lateral flexion extension x-rays lumbar spine show [id number] degenerative changes at L4-5 and mild degenerative [...] Sha Foster 05/04/2023 4:32 PM Dictation workstation: [id number] Sha Foster MD - 05/04/2023 Interpreted By: Sha Foster, STUDY: XR LUMBAR SPINE COMPLETE 4+ VIEWS; ; 05/04/2023 4:17 pm INDICATION: Signs/Symptoms:pain. ACCESSION NUMBER(S): [id number] ORDERING CLINICIAN: SHA FOSTER FINDINGS: AP lateral flexion extension x-rays lumbar spine show [id number] degenerative changes at L4-5 and mild degenerative [...] Sha Foster 05/04/2023 4:32 PM Dictation workstation: [id number] [facility] Work Phone: [facility] Work Phone: Radiology Study observation (narrative) [facility] Work Phone: Absolute lymphocyte counton 08-20-2021 Lymphocytes Auto (Unsp spec) [#/Vol] 0.41 10*3/uL 0.83-4.51 [facility] Work Phone: Basophil percentageon 2021 Basophils/100 WBC (Bld) 0.5 % 0-1 [facility] Work Phone: Chloride [Moles/Vol] 100 mmol/L 98-107 [facility] Work Phone: Eosinophils/100 WBC (Bld) 0.0 % 0-5 [facility] Work Phone: Glucose [Mass/Vol] 120 mg/dL 74-106 [facility] Work Phone: [phone] Comment on above: Fasting Glucose resu lt from 100 to 125 mg/dL suggests IMPAIRED HOMEOSTASIS per A.D.A. criteria. Neutrophils (Bld) [#/Vol] 0.8 10*3/uL 2.0-7.7 [facility] Work Phone: Neutrophils/100 WBC (Bld) 40.8 % 47-70 [facility] Work Phone: [phone] Potassium [Moles/Vol] 3.2 mmol/L 3.5-5.1 [facility] Work Phone: Sodium [Moles/Vol] 134 mmol/L 136-145 [facility] Work Phone: WBC (Bld) [#/Vol] 2.0 10*3/uL 4.4-11.0 [facility] Work Phone: Blood erythrocytes count (nu mber/volume)on 08-20-2021 RBC (Bld) [#/Vol] 4.44 10*6/uL 4.6-6.2 [facility] Work Phone: Blood hemoglobin measurement (mass/volume)on 08-20-2021 Hemoglobin (Bld) [Mass/Vol] 14.0 g/dL 13.0-16.5 [facility] Work Phone: Blood lymphocytes/100 leukoc yteson 08-20-2021 Lymphocytes/100 WBC (Bld) 20.4 % 19-41 [facility] Work Phone: Blood manual differential co mment interpretation (narrative result)on 08-20-2021 Manual differential comment Blake (Bld) [Interp] SEE COMMENTS [facility] Work Phone: Comment on above: NEUTROPENIA NOTEDLYM PHOPENIA NOTED Blood monocytes/100 leukocyt eson 08-20-2021 Monocytes/100 WBC (Bld) 37.8 % 0-10 [facility] Work Phone: Blood platelet adequacy dete ction by light microscopyon 08-20-2021 Platelets LM Ql (Bld) ADEQUATE ADEQ [facility] Work Phone: Blood platelet mean volumeon 08-20-2021 Platelet mean volume (Bld) [Entitic vol] 12.0 fL 6.2-12.0 [facility] Work Phone: Determination of erythrocyte mean corpuscular volume (MCV)on 08-20-2021 MCV (RBC) [Entitic vol] 93.5 fL 80-94 [facility] Work Phone: Hematocrit Auto (Bld) [Volum e fraction]on 08-20-2021 Hematocrit (Bld) [Volume fraction] 41.5 % 40-54 [facility] Work Phone: Laboratory - Chemistry and C hemistry - challengeon 08-20-2021 CO2 [Moles/Vol] 25.0 mmol/L 21.0-32.0 [facility] Work Phone: Urea nitrogen/Creatinine [Mass ratio] 11.2 mg/mg 10-20 [facility] Work Phone: Laboratory - Drug toxicology on 08-20-2021 Amphetamines Ql (U) Negative [facility] Work Phone: Benzodiazepines Ql (U) Negative [facility] Work Phone: Cannabinoids Screen Ql (U) Positive [facility] Work Phone: Cocaine Ql (U) Negative [facility] Work Phone: Opiates Ql (U) Negative [facility] Work Phone: Laboratory - Hematology and Cell countson 08-20-2021 Anisocytosis Ql (Bld) RARE [facility] Work Phone: Erythrocyte distribution width (RBC) [Entitic vol] 40.6 fL 35.1-43.9 [facility] Work Phone: Erythrocyte distribution width (RBC) [Ratio] 11.9 % 11.6-14.6 [facility] Work Phone: Immature granulocytes/100 WBC (Bld) 0.500 % 0.0-0.9 [facility] Work Phone: Comment on above: IG% - Immature Granu locytes (promyelocytes, myelocytes and metamyelocytes) > 1% indicates that a LEFT SHIFT is Present. MCH (RBC) [Entitic mass] 31.5 pg 27.0-32.0 [facility] Work Phone: Nucleated RBC/100 WBC (Bld) [Ratio] 0 % 0-5 [facility] Work Phone: Laboratory - Microbiology an d Antimicrobial susceptibilityon 08-20-2021 SARS-CoV-2 (COVID-19) RNA CATALINO+probe Ql (Unsp spec) Detected Not Detect [facility] Work Phone: Comment on above: Normal Reference Ran ge: Not DetectedMethod:(RT-PCR) real-time reverse transcriptase PCRLuminex [facility] Instrument*The Food and Drug Administration (FDA) has [...] 08-20-2021 MCHC (RBC) [Mass/Vol] 33.7 g/dL 32-36 [facility] Work Phone: Macrocytes detectionon 08-20 Macrocytes Ql (Bld) RARE [facility] Work Phone: No Panel Informationon 08-20 MDMA (Ecstasy) Screen Negative [facility] Work Phone: Urine Barbiturates Screen Negative [facility] Work Phone: Urine Drug Screen Comment [facility] Work Phone: Comment on above: CONFIRMATORY [...] USE TESTMNEMONIC: [facility] Urine Methadone Screen Negative [facility] Work Phone: Estimated Creatinine Clearance Calc 95.67 ml/min [facility] Work Phone: Estimated GFR (MDRD) Amer 90 mL/min >60 [facility] Work Phone: Comment on above: GFR Calc Estimated GFR (MDRD) Non-Af Amer 74 mL/min >60 [facility] Work Phone: Comment on above: Non- GFR Calc Ethyl Alcohol Level 5.0 mg/dL [facility] Work Phone: Comment on above: The serum:whole bloo d ethanol ratio is approximately 1.14and varies slightly with hematocrit. Medical Alcohol reference interval and critical value innon-tolerant individuals; 50 - 100 Impairment 100 Intoxication 100 - 250 Severe Poisoning 250 - 400 Deep/possible fatal coma Platelets bldon 08-20-2021 Platelets (Bld) [#/Vol] 172 10*3/uL 150-450 [facility] Work Phone: RBC morphologyon 08-20-2021 RBC morphology finding Nom (Bld) N CHROM NORMAL NORM C&C [facility] Work Phone: Review by pathologiston Pathologist review Blake (Unsp spec) [Interp] Reviewed 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 Clinical correlation necessary.Randall Milan M.D. 08/21/21 AMENDED REPORT 08/21/21 1235 PATH REV previously reported as: July SARS-CoV-2 (COVID-19) Ag IA. rapid Ql (Resp)on 08-20-2021 SARS-CoV-2 Antigen (Rapid) SARS-CoV-2 (COVID 19) [facility] Work Phone: Serum or plasma calcium whitney urement (mass/volume)on 08-20-2021 Calcium [Mass/Vol] 8.7 mg/dL 8.5-10.1 [facility] Work Phone: Serum or plasma creatinine m easurement (mass/volume)on 08-20-2021 Creatinine [Mass/Vol] 1.16 mg/dL 0.70-1.30 [facility] Work Phone: Comment on above: The validity of the calculated GFR & GFRAA in patients over 70 years has not been determined. Clinical correlation is essential. Serum or plasma urea nitroge n measurement (mass/volume)on 08-20-2021 Urea nitrogen [Mass/Vol] 13 mg/dL 7-18 [facility] Work Phone: Thin prep Papanicolaou smear with manual screeningon 08-20-2021 Thin prep Papanicolaou smear with manual screening 9 5-15 [facility] Work Phone: Urine phencyclidine (PCP) de tectionon 08-20-2021 Phencyclidine Ql (U) Negative [facility] Work Phone: MRI RT SHOULDER W/O CONTRAST on 01-26-2018 Thyrotropin Qn DATE OF EXAM: Jan 26 2018 4:37PMCLINICAL HISTORY/ Name: HARMAN JAMILSTUDY:MRI RT SHOULDER W/O CONTRAST; 01/26/2018 4:37 pmINDICATION:shoulder pain.COMPARISON:None.ACCES OSMEL NUMBER(S):[id number] NG CLINICIAN:SHA FOSTERTECHNINEW:Servandol hans multisequence MRI of the right shoulder was performed without intravenous or intra-articular gadolinium based contrast.FINDINGS:ROTATOR CUFF AND BICEPS TENDON:The supraspinatus tendon is intact.The infraspinatus tendon is intact.The teres minor tendon is intact.The subscapularis tendon is intact.The cuff musculature:MaintainedBice ps tendon: The biceps labral anchor, tendon at the rotator interval and at the bicipital groove appear intact.JOINTS:Glenohumeral Joint: Maintained.Acromioclavicul ar joint: Maintained.Acromion configuration :Type 1, without lateral downsloping.Joint effusion: None significant.GLENOID LABRUM AND LIGAMENTS:Labrum: Intact.Glenohumeral ligaments: Intact.OSSEOUS STRUCTURES:The bone marrow signal is homogeneous.The cortical margins are maintained.SOFT TISSUES:No subcutaneous edema.CONCLUSION: IMPRESSION:1. Unremarkable exam. Normal [facility] Office Visiton 10-04-2017 Office Visit [...] PM Vitals Vital Signs Recorded: 04Oct2017 03:57PMHeart Jyxi748Mbnsbjfk508, LUE, GxuxpncBbxkmloxm76, LUE, SittingHeight6 ft Qfbakv103 lb 9 ozBMI Dkxbvumrmv67.02BSA Calculated2.16O2 Uxcgjsfuzt08 Physical ExamGen: NADeyes: EOMI, ENT: hearing grossly intact, no nasal dischargeresp: CTABL, without R/Rheart: RRR without MRGGI: abd: S/ND/NT, BS+lymph: no axillary, cervical, supraclavicular lymphadenopathy noted MS: gait grossly WNL, shoulder range of motion grossly within normal limits.derm: no rashes or lesions notedneuro: CN II-XII grossly intactpsych: AANDOx3 Results/Data HIV Antigen/Antibody Pmwase29Qps4489 10:Josafat Peterson Test NameResultFlagReferenceHIV AG/AB SCREENNON REACTIVESee BelowSOURCE: Reference Range: NONREACTIVE HIV Ag/Ab screen is performed using the Siemens Advia Centaur HIV Ag/Ab Combo assay which detects the presence of HIV p24 antigen as well as antibodies to HIV-1 (Group M and O) and HIV-2. Syphilis [id number] 10:Josafat Peterson Test NameResultFlagReferenceSyp hilis IgGNON REACTIVESee BelowSOURCE: Reference Range: NONREACTIVE Patients receiving more than 5 mg/day of biotin may have interference in test results. A sample should be taken no sooner than eight hours after previous dose. Contact [phone] for additional information. Vitamin D 25-Iwssplx58Iqx2608 10:Josafat Peterson Test NameResultFlagReferenceVit lazcano D 25-Hydroxy, Level14 ng/mLASOURCE: . DEFICIENCY: < [...] Status: Hold For - Scheduling Requested for: 58Ljg7176 Ordered;For: Paresthesia of upper extremity, Shoulder pain; Ordered By: Josafat Tinoco Performed: Order Comments: If possible he might be able to come in tomorrow for the walk-in clinic, otherwise schedule with someone. Thanks. Due: 85Loc4491Llafqraj pain Start: Ibuprofen 800 MG Oral Tablet; TAKE 1 TABLET 3 TIMES DAILY WITH FOOD ASNEEDED for pain Rx By: Josafat Tinoco; Dispense: 20 Days ; #:60 Tablet; Refill: 1;For: Shoulder pain; PAYAM = N; Sent To: [facility] #71Vitamin D deficiency Start: Vitamin D3 5000 UNIT Oral Capsule; 1 po qd Rx By: Josafat Tinoco; Dispense: 0 Days ; #:30 Capsule; Refill: 11;For: Vitamin D deficiency; PAYAM = N; Sent To: [facility]71 Patient Discussion/Summarysmoking about 1/2 ppd, -->> [...] TIMES DAILY WITH FOOD ASNEEDED for pain;Therapy: 11Dci6092 to (Evaluate:89Bxc7987); Last Rx:24Mjm5502 OrderedVitamin D3 5000 UNIT Oral Capsule; 1 po qd;Therapy: 28Sha8863 to (Last Rx:40Thb0904) Ordered Signatures Electronically signed by : Josafat Tinoco DO; Oct 04 2017 4:50PM EST (Author) Normal [employer] Office Visiton 09-28-2017 Office Visit Chief Complaint [...] 09/06/2015 8:22:19 AM Vitals Vital Signs Recorded: 07Lvu2773 09:53AMHeart Sajv09Dcbzjveo471, LUE, ArhrarhUnysggnpp77, LUE, SittingHeight6 ft Jdqrjp637 lb 2 ozBMI Vynioetfxb01.36BSA Calculated2.17O2 Teluayqtix85 Physical ExamGen: NADeyes: EOMI, ENT: hearing grossly [...] Education Material Provided for Patient; Status:Complete; Done: 02Fhm8938 Ordered; For:Drug therapy, Hyperlipidemia, Overweight, Prediabetes, Screening for condition, Vitamin D deficiency; Ordered By:Josafat Tinoco; Complete Blood Count + Differential; Source:Blood (D); Status:Active; Requestedfor:52Vmk9245; Perform:Lab Services - Lab To Draw (Blood Test); Due:27Dec2017;Ordered; For:Drug therapy, Hyperlipidemia, Overweight, Prediabetes, Screening for condition, Vitamin D deficiency; Ordered By:Josafat Tinoco; Comprehensive Metabolic Panel; Status:Active; Requested for:42Nro3251; Perform:Lab Services - Lab To Draw (Blood Test); Due:27Dec2017;Ordered; For:Drug therapy, Hyperlipidemia, Overweight, Prediabetes, Screening for condition, Vitamin D deficiency; Ordered By:Josafat Tinoco; Hemoglobin A1C; Source:Blood (BLD); Status:Active; Requested for:50Izn3216; Perform:Lab Services - Lab To Draw (Blood [...] FREE T4 IF ABNORMAL; Source:Blood (BLD); Status:Active;Requested for:28Sep2017; Perform:Lab Services - Lab To Draw (Blood Test); Due:27Dec2017;Ordered; For:Drug therapy, Hyperlipidemia, Overweight, Prediabetes, Screening for condition, Vitamin D deficiency; Ordered By:Josafat Tinoco; Vitamin D 25-Hydroxy; Source:Blood (BLD); Status:Active; Requested for:28Sep2017; Perform:Lab Services - Lab To Draw (Blood Test); Due:27Dec2017;Ordered; For:Drug therapy, Hyperlipidemia, Overweight, Prediabetes, Screening for condition, Vitamin D deficiency; Ordered By:Josafat Tinoco;Screening for condition GC + Chlamydia By Amplified Detection; Source:Urine; Status:Active; Requestedfor:04Itm0238; Perform:Lab Services - Lab To Draw (Non-Blood Test); Due:27Dec2017;Ordered; For:Screening for condition; Ordered By:Josafat Tinoco; HIV Antigen/Antibody Screen; Source:Blood (BLD); Status:Active; Requestedfor:01Fxv0808; Perform:Lab Services - Lab To Draw (Blood Test); Due:27Dec2017;Ordered; For:Screening for condition; Ordered By:Josafat Tinoco; Syphilis IGG; Status:Active; Requested for:41Jmb4003; Perform:Lab Services - Lab To Draw (Blood [...] Name: SILAS JAMIL:PELVIS AP ONLY; 05/26/2017 11:32 pmINDICATION:Trauma.COMPAR YARA:None. NG CLINICIAN:MARCIE RICHARDSON:There is no acute fracture, dislocation, or radiopaque foreign body.Significant stool and bowel gas obscures the bony details.CONCLUSION: IMPRESSION:No acute fracture or dislocation. Follow-up with CT if clinically indicated. Normal [facility] SPINE L MIN 4 VIEWSon 2017 SPINE L MIN 4 VIEWS DATE OF EXAM: May 26 2017 11:32PLINICAL HISTORY/ Name: SILAS JAMIL:SPINE L MIN 4 VIEWS; 05/26/2017 11:32 pmINDICATION:Non Trauma.COMPARISON:12/18/19 16ACCESSION NUMBER(S):[id number] NG CLINICIAN:MARCIE CRUZS:No significant interval change.There is no acute fracture or dislocation. The vertebral heights and alignment are unremarkable.There is no spondylolysis or spondylolisthesis.There is no radiographic evidence of significant spondylosis.Significant stool and bowel gas obscures the bony details.CONCLUSION: IMPRESSION:No acute fracture or dislocation. Follow-up with CT if clinically indicated. Normal [facility] Vital Signs Date Time Vital Sign Value Performing Clinician Facility 01-09-2025 10:40-0400 Body height 185.4 cm Apoorva Griffin MD Work Phone: [facility] 01-09-2025 10:40-0400 Body mass index (BMI) [Ratio] 24.54 kg/m2 Apoorva Griffin MD Work Phone: [facility] 01-09-2025 10:40-0400 Body temperature 97.5 [degF] Apoorva Griffin MD Work Phone: [facility] 01-09-2025 10:40-0400 Body weight 84.37 kg Apoorva Griffin MD Work Phone: [facility] 01-09-2025 10:40-0400 Diastolic blood pressure 80 mm[Hg] Apoorva Griffin MD Work Phone: [facility] 01-09-2025 10:40-0400 Heart rate 57 /min Apoorva Griffin MD Work Phone: [facility] 01-09-2025 10:40-0400 SaO2% (BldA) [Mass fraction] 97 % Apoorva Griffin MD Work Phone: [facility] 01-09-2025 10:40-0400 Systolic blood pressure 145 mm[Hg] Apoorva Griffin MD Work Phone: [facility] 12-17-2024 21:47-0400 Body height 185.[address] Josafat Tinoco DO Work Phone: [facility] 12-17-2024 21:47-0400 Body mass index (BMI) [Ratio] 25 kg/m2 Dr. Josafat Tinoco DO Work Phone: [facility] 12-17-2024 21:47-0400 Body temperature 96 [degF] Dr. Josafat Tinoco DO Work Phone: [facility] 12-17-2024 21:47-0400 Body weight 86.[address] Josafat Tinoco DO Work Phone: [facility] 12-17-2024 21:47-0400 Diastolic blood pressure 96 mm[Hg] Dr. Josafat Tinoco DO Work Phone: [facility] 12-17-2024 21:47-0400 Heart rate 80 /min Dr. Josafat Tinoco DO Work Phone: [facility] 12-17-2024 21:47-0400 Respiratory rate 18 /min Dr. Josafat Tinoco DO Work Phone: [facility] 12-17-2024 21:47-0400 SaO2% (BldA) [Mass fraction] 100 % Dr. Josafat Tinoco DO Work Phone: [facility] 12-17-2024 21:47-0400 Systolic blood pressure 145 mm[Hg] Dr. Josafat Tinoco DO Work Phone: [facility] 12-08-2024 20:31-0400 Body temperature 98.2 [degF] Parrish Talbert MD Work Phone: [facility] 12-08-2024 20:31-0400 Diastolic blood pressure 87 mm[Hg] Parrish Talbert MD Work Phone: [facility] 12-08-2024 20:31-0400 Heart rate 84 /min Parrish Talbert MD Work Phone: [facility] 12-08-2024 20:31-0400 Respiratory rate 17 /min Parrish Talbert MD Work Phone: [facility] 12-08-2024 20:31-0400 SaO2% (BldA) [Mass fraction] 97 % Parrish Talbert MD Work Phone: [facility] 12-08-2024 20:31-0400 Systolic blood pressure 144 mm[Hg] Parrish Talbert MD Work Phone: [facility] 12-08-2024 18:25-0400 Body height 185.4 cm Parrish Talbert MD Work Phone: [facility] 12-08-2024 18:25-0400 Body mass index (BMI) [Ratio] 25.07 kg/m2 Parrish Talbert MD Work Phone: [facility] 12-08-2024 18:25-0400 Body weight 86.18 kg Parrish Talbert MD Work Phone: [facility] 11-11-2024 02:16-0400 Body temperature 97.9 [degF] Dr. Josafat Tinoco DO Work Phone: [facility] 11-11-2024 02:16-0400 Diastolic blood pressure 99 mm[Hg] Dr. Josafat Tinoco DO Work Phone: [facility] 11-11-2024 02:16-0400 Heart rate 75 /min Dr. Josafat Tinoco DO Work Phone: [facility] 11-11-2024 02:16-0400 Respiratory rate 16 /min Dr. Josafat Tinoco DO Work Phone: [facility] 11-11-2024 02:16-0400 SaO2% (BldA) [Mass fraction] 99 % Dr. Josafat Tinoco DO Work Phone: [facility] 11-11-2024 02:16-0400 Systolic blood pressure 132 mm[Hg] Dr. Josafat Tinoco DO Work Phone: [facility] 11-10-2024 23:53-0400 Body height 185.[address] Josafat Tinoco DO Work Phone: [facility] 11-10-2024 23:53-0400 Body mass index (BMI) [Ratio] 24.3 kg/m2 Dr. Josafat Tinoco DO Work Phone: [facility] 11-10-2024 23:53-0400 Body weight 83.[address] Josafat Tinoco DO Work Phone: [facility] 10-31-2024 10:11-0400 Body mass index (BMI) [Ratio] 25.2 kg/m2 Apoorva Griffin MD Work Phone: [facility] 10-31-2024 10:11-0400 Body temperature 97.3 [degF] Apoorva Griffin MD Work Phone: [facility] 10-31-2024 10:11-0400 Body weight 86.64 kg Apoorva Griffin MD Work Phone: [facility] 10-31-2024 10:11-0400 Diastolic blood pressure 92 mm[Hg] Apoorva Griffin MD Work Phone: [facility] 10-31-2024 10:11-0400 Heart rate 70 /min Apoorva Griffin MD Work Phone: [facility] 10-31-2024 10:11-0400 Systolic blood pressure 156 mm[Hg] Apoorva Griffin MD Work Phone: [facility] 10-23-2024 15:44-0400 SaO2% (BldA) [Mass fraction] 98 % Dr. Josafat Tinoco DO Work Phone: [facility] 10-23-2024 15:32-0400 Body height 185.[address] Josafat Tinoco DO Work Phone: [facility] 10-23-2024 15:32-0400 Body mass index (BMI) [Ratio] 24.9 kg/m2 Dr. Josafat Tinoco DO Work Phone: [facility] 10-23-2024 15:32-0400 Body temperature 98.8 [degF] Dr. Josafat Tinoco DO Work Phone: [facility] 10-23-2024 15:32-0400 Body weight 85.[address] Josafat Tinoco DO Work Phone: [facility] 10-23-2024 15:32-0400 Diastolic blood pressure 65 mm[Hg] Dr. Josafat Tinoco DO Work Phone: [facility] 10-23-2024 15:32-0400 Heart rate 104 /min Dr. Josafat Tinoco DO Work Phone: [facility] 10-23-2024 15:32-0400 Inhaled oxygen flow rate 4 L/min Dr. Josafat Tinoco DO Work Phone: [facility] 10-23-2024 15:32-0400 Respiratory rate 14 /min Dr. Josafat Tinoco DO Work Phone: [facility] 10-23-2024 15:32-0400 Systolic blood pressure 112 mm[Hg] Dr. Josafat Tinoco DO Work Phone: [facility] 10-02-2024 12:110400 Body height 185.4 cm Apoorva Griffin MD Work Phone: [facility] 10-02-2024 12:11-0400 Body mass index (BMI) [Ratio] 25.46 kg/m2 Apoorva Griffin MD Work Phone: [facility] 10-02-2024 12:11-0400 Body temperature 97.3 [degF] Apoorva Griffin MD Work Phone: [facility] 10-02-2024 12:110400 Body weight 87.54 kg Apoorva Griffin MD Work Phone: [facility] 10-02-2024 12:11-0400 Diastolic blood pressure 76 mm[Hg] Apoorva Griffin MD Work Phone: [facility] 10-02-2024 12:11-0400 Heart rate 57 /min Apoorva Griffin MD Work Phone: [facility] 10-02-2024 12:11-0400 SaO2% (BldA) [Mass fraction] 99 % Apoorva Griffin MD Work Phone: [facility] 10-02-2024 12:11-0400 Systolic blood pressure 117 mm[Hg] Apoorva Griffin MD Work Phone: [facility] 07-19-2024 10:44-0400 Body height 185.4 cm Radha Gartt DO Work Phone: [facility] 07-19-2024 10:44-0400 Body mass index (BMI) [Ratio] 24.83 kg/m2 Radha Garratt DO Work Phone: [facility] 07-19-2024 10:44-0400 Body weight 85.37 kg Radha Garradeedee DO Work Phone: [facility] 07-14-2024 01:28-0400 Body temperature 98.71 [degF] Josafat Tinoco DO Work Phone: [employer] 07-13-2024 22:31-0400 Body mass index (BMI) [Ratio] 24.65 kg/m2 Josafat Degidio DO Work Phone: [facility] [email or web address] 07-13-2024 22:31-0400 Body weight 84.73 kg Josafat Degidio DO Work Phone: [facility] [email or web address] 07-13-2024 22:30-0400 Diastolic blood pressure 92 mm[Hg] Josafat Degidio DO Work Phone: [facility] [facility] 07-13-2024 22:30-0400 Heart rate 98 /min Josafat Degidio DO Work Phone: [facility] [email or web address] 07-13-2024 22:30-0400 Respiratory rate 19 /min Josafat Degidio DO Work Phone: [facility] [email or web address] 07-13-2024 22:30-0400 SaO2% (BldA) [Mass fraction] 97 % [facility]io [facility] 07-13-2024 22:30-0400 Systolic blood pressure 137 mm[Hg] Jos[facility]at [facility]idio DO [facility] 06-28-2024 08:47-0400 Body height 183.1 cm Josafat Degidio DO Work Phone: [facility] 06-28-2024 08:47-0400 Body mass index (BMI) [Ratio] 25.29 kg/m2 Josafat Degidio DO Work Phone: [facility] 06-28-2024 08:47-0400 Body weight 84.82 kg Josafat Degidio DO Work Phone: [facility] 06-28-2024 08:47-0400 Diastolic blood pressure 99 mm[Hg] Josafat Degidio DO Work Phone: [facility] 06-28-2024 08:47-0400 Heart rate 80 /min Josafat Emersono DO Work Phone: [facility] 06-28-2024 08:47-0400 SaO2% (BldA) [Mass fraction] 98 % Josafat Hilarioidio DO Work Phone: [facility] 06-28-2024 08:47-0400 Systolic blood pressure 134 mm[Hg] Josafat Hilarioidio DO Work Phone: [facility] 06-15-2024 21:32-0400 Body height 185.4 cm Lisa Polanco MD Work Phone: [facility] [facility] 06-15-2024 21:32-0400 Body mass index (BMI) [Ratio] 24.72 kg/m2 Lisa Polanco MD Work Phone: [employer] 06-15-2024 21:32-0400 Body temperature 98.01 [degF] Lisa Polanco MD Work Phone: [employer] [facility] [facility] 06-15-2024 21:32-0400 Body weight 85 kg Lisa Polanco MD Work Phone: [employer] [facility] 06-15-2024 21:32-0400 Diastolic blood pressure 87 mm[Hg] Lisa Polanco MD Work Phone: [employer] [facility] 06-15-2024 21:32-0400 Heart rate 92 /min Lisa Polanco MD [facility] 06-15-2024 21:32-0400 Respiratory rate 20 /min Lisa Polanco MD Work Phone: [facility] 06-15-2024 21:32-0400 SaO2% (BldA) [Mass fraction] 99 % Lisa Polanco MD Work Phone: [employer] [facility] 06-15-2024 21:32-0400 Systolic blood pressure 154 mm[Hg] Lisa Polanco MD Work Phone: [facility] 05-19-2024 14:00-0500 Diastolic blood pressure 96 mm[Hg] Josafat Degidio DO Work Phone: [facility] [email or web address] 05-19-2024 14:00-0500 SaO2% (BldA) [Mass fraction] 98 % Josafat Degidio DO Work Phone: [facility] 05-19-2024 14:00-0500 Systolic blood pressure 122 mm[Hg] Josafat Degidio DO Work Phone: [employer] [facility] 05-18-2024 21:51-0500 Body height 185.4 cm Josafat Degidio DO Work Phone: [facility] 05-18-2024 21:51-0500 Body mass index (BMI) [Ratio] 24.41 kg/m2 Josafat Degidio DO Work Phone: [facility] 05-18-2024 21:51-0500 Body temperature 98.1 [degF] Josafat Degidio DO Work Phone: [facility] 05-18-2024 21:51-0500 Body weight 83.92 kg Josafat Degidio DO Work Phone: [facility] 05-18-2024 21:51-0500 Heart rate 85 /min Josafat Degidio DO Work Phone: [facility] [facility] 05-18-2024 21:51-0500 Respiratory rate 20 /min Josafat Degidio DO Work Phone: [facility] 02-26-2024 07:35-0500 Body temperature 97.7 [degF] Sha Foster MD Work Phone: [facility] 02-26-2024 07:35-0500 Diastolic blood pressure 103 mm[Hg] Sha Foster MD Work Phone: [facility] 02-26-2024 07:35-0500 Heart rate 67 /min Sha Foster MD Work Phone: [facility] 02-26-2024 07:35-0500 Respiratory rate 18 /min Sha Foster MD Work Phone: [facility] 02-26-2024 07:35-0500 SaO2% (BldA) [Mass fraction] 98 % Sha Foster MD Work Phone: [facility] 02-26-2024 07:35-0500 Systolic blood pressure 137 mm[Hg] Sha Foster MD Work Phone: [facility] 02-23-2024 02:23-0500 Body height 185.4 cm Sha Foster MD Work Phone: [facility] 02-23-2024 02:23-0500 Body mass index (BMI) [Ratio] 24.37 kg/m2 Sha Foster MD Work Phone: [facility] 02-23-2024 02:23-0500 Body weight 83.78 kg Sha Foster MD Work Phone: [facility] 02-09-2024 00:18-0500 Diastolic blood pressure 84 mm[Hg] Josafat Degidio DO Work Phone: [facility] 02-09-2024 00:18-0500 Respiratory rate 18 /min Josafat Degidio DO Work Phone: [facility] 02-09-2024 00:18-0500 SaO2% (BldA) [Mass fraction] 96 % Josafat Degidio DO Work Phone: [facility] 02-09-2024 00:18-0500 Systolic blood pressure 106 mm[Hg] Josafat Degidio DO Work Phone: [facility] 02-08-2024 21:59-0500 Body height 185.4 cm Josafat Degidio DO Work Phone: [facility] 02-08-2024 21:59-0500 Body mass index (BMI) [Ratio] 24.41 kg/m2 Josafat Degidio DO Work Phone: [facility] [email or web address] 02-08-2024 21:59-0500 Body temperature 97.3 [degF] Josafat Degidio DO Work Phone: [facility] [email or web address] 02-08-2024 21:59-0500 Body weight 83.92 kg Josafat Degidio DO Work Phone: [facility] [employer] 02-08-2024 21:59-0500 Heart rate 88 /min Josafat Degidio DO Work Phone: [facility] [employer] 01-29-2024 19:20-0500 Body height 185.4 cm [employer] Work Phone: [facility] 01-29-2024 19:20-0500 Body mass index (BMI) [Ratio] 24.41 kg/m2 [employer] Work Phone: [facility] 01-29-2024 19:20-0500 Body temperature 98.2 [degF] [employer] DO Work Phone: [facility] 01-29-2024 19:20-0500 Body weight 83.92 kg [employer] Work Phone: [facility] 01-29-2024 19:20-0500 Diastolic blood pressure 93 mm[Hg] Zuleyka[employer] DO Work Phone: [facility] 01-29-2024 19:20-0500 Heart rate 95 /min [employer] Work Phone: [facility] [employer] 01-29-2024 19:20-0500 Respiratory rate 18 /min [employer] Work Phone: [facility] 01-29-2024 19:20-0500 SaO2% (BldA) [Mass fraction] 97 % Zuleyka Bryant DO Work Phone: [facility] 01-29-2024 19:20-0500 Systolic blood pressure 128 mm[Hg] Zuleyka Bryant DO Work Phone: [facility] 12-12-2023 18:53-0400 Body height 182.9 cm Josafat Degidio DO Work Phone: [employer] 12-12-2023 18:53-0400 Body mass index (BMI) [Ratio] 25.09 kg/m2 Josafat Degidio DO Work Phone: [employer] 12-12-2023 18:53-0400 Body weight 83.92 kg Josafat Degidio DO Work Phone: [employer] 12-12-2023 18:35-0400 Body temperature 98.71 [degF] Josafat Degidio DO Work Phone: [employer] 12-12-2023 18:35-0400 Diastolic blood pressure 105 mm[Hg] Josafat Degidio DO Work Phone: [employer] 12-12-2023 18:35-0400 Heart rate 105 /min Josafat Degidio DO Work Phone: [employer] 12-12-2023 18:35-0400 Respiratory rate 18 /min Josafat Degidio DO Work Phone: [employer] 12-12-2023 18:35-0400 SaO2% (BldA) [Mass fraction] 100 % Josafat Degidio DO Work Phone: [employer] 12-12-2023 18:35-0400 Systolic blood pressure 163 mm[Hg] Josafat Degidio DO Work Phone: [employer] 05-18-2023 15:51-0500 Body temperature 98.2 [degF] [facility] 05-18-2023 15:51-0500 Diastolic blood pressure 86 mm[Hg] [facility] 05-18-2023 15:51-0500 Heart rate 88 /min [facility] 05-18-2023 15:51-0500 Respiratory rate 18 /min [facility] 05-18-2023 15:51-0500 SaO2% (BldA) [Mass fraction] 99 % [facility] 05-18-2023 15:51-0500 Systolic blood pressure 136 mm[Hg] [facility] 05-18-2023 14:08-0500 Body height 185.[address] [facility] 05-18-2023 14:08-0500 Body mass index (BMI) [Ratio] 25.4 kg/m2 [facility] 05-18-2023 14:08-0500 Body weight 87.[address] [facility] 04-10-2023 18:44-0500 Heart rate 79 /min [facility] 04-10-2023 18:44-0500 Respiratory rate 16 /min [facility] 04-10-2023 18:44-0500 SaO2% (BldA) [Mass fraction] 98 % [facility] 04-10-2023 16:36-0500 Body height 185.[address] [facility] 04-10-2023 16:36-0500 Body mass index (BMI) [Ratio] 25.9 kg/m2 [facility] 04-10-2023 16:36-0500 Body temperature 98.1 [degF] [facility] 04-10-2023 16:36-0500 Body weight 89.[address] [facility] 04-10-2023 16:36-0500 Diastolic blood pressure 100 mm[Hg] [facility] 04-10-2023 16:36-0500 Systolic blood pressure 152 mm[Hg] [facility] 03-09-2023 11:08-0500 Body height 185.[address] [facility] 03-09-2023 11:08-0500 Body mass index (BMI) [Ratio] 23.3 kg/m2 [facility] [facility] 03-09-2023 11:08-0500 Body temperature 96.8 [degF] [facility] 03-09-2023 11:08-0500 Body weight 80.[address] [facility] 03-09-2023 11:08-0500 Diastolic blood pressure 95 mm[Hg] [facility] 03-09-2023 11:08-0500 Heart rate 125 /min [facility] 03-09-2023 11:08-0500 Respiratory rate 18 /min [facility] 03-09-2023 11:08-0500 SaO2% (BldA) [Mass fraction] 100 % [facility] 03-09-2023 11:08-0500 Systolic blood pressure 123 mm[Hg] [facility] 11-09-2022 13:32-0400 Body height 185.[address] [facility] 11-09-2022 13:32-0400 Body mass index (BMI) [Ratio] 25 kg/m2 [facility] 11-09-2022 13:32-0400 Body temperature 97 [degF] [facility] 11-09-2022 13:32-0400 Body weight 86.[address] [facility] 11-09-2022 13:32-0400 Diastolic blood pressure 94 mm[Hg] [facility] 11-09-2022 13:32-0400 Heart rate 117 /min [facility] 11-09-2022 13:32-0400 Respiratory rate 22 /min [facility] 11-09-2022 13:32-0400 SaO2% (BldA) [Mass fraction] 99 % [facility] 11-09-2022 13:32-0400 Systolic blood pressure 151 mm[Hg] [facility] 06-16-2022 22:21-0400 Diastolic blood pressure 95 mm[Hg] [facility] 06-16-2022 22:21-0400 Heart rate 104 /min [facility] 06-16-2022 22:21-0400 Respiratory rate 18 /min [facility] 06-16-2022 22:21-0400 SaO2% (BldA) [Mass fraction] 97 % [facility] 04-04-2023 22:21-0400 Systolic blood pressure 133 mm[Hg] [facility] 06-16-2022 22:15-0400 Body height 185.[address] [facility] 06-16-2022 22:15-0400 Body mass index (BMI) [Ratio] 25.2 kg/m2 [facility] 06-16-2022 22:15-0400 Body temperature 98.5 [degF] [facility] 06-16-2022 22:15-0400 Body weight 86.[address] [facility] 08-22-2021 00:06-0400 Respiratory rate 17 /min [facility] Work Phone: 08-22-2021 00:05-0400 Diastolic blood pressure 74 mm[Hg] [facility] Work Phone: 08-22-2021 00:05-0400 Heart rate 74 /min [facility] Work Phone: 08-22-2021 00:05-0400 SaO2% (BldA) [Mass fraction] 98 % [facility] Work Phone: 08-22-2021 00:05-0400 Systolic blood pressure 132 mm[Hg] [facility] Work Phone: 08-21-2021 04:42-0400 Body temperature 98.9 [degF] [facility] Work Phone: 08-20-2021 15:33-0400 Body height 185.[address] [facility] Work Phone: 08-20-2021 15:33-0400 Body mass index (BMI) [Ratio] 27.7 kg/m2 [facility] Work Phone: 08-20-2021 15:33-0400 Body weight 95.[address] [facility] Work Phone: 08-19-2021 15:14-0400 Diastolic blood pressure 75 mm[Hg] [facility] Work Phone: 08-19-2021 15:14-0400 Heart rate 76 /min [facility] Work Phone: 08-19-2021 15:14-0400 Respiratory rate 16 /min [facility] Work Phone: 08-19-2021 15:14-0400 SaO2% (BldA) [Mass fraction] 97 % [facility] Work Phone: 08-19-2021 15:14-0400 Systolic blood pressure 123 mm[Hg] [facility] Work Phone: 08-19-2021 13:05-0400 Body height 185.[address] [facility] Work Phone: 08-19-2021 13:05-0400 Body mass index (BMI) [Ratio] 28.3 kg/m2 [facility] Work Phone: 08-19-2021 13:05-0400 Body temperature 98 [degF] [facility] Work Phone: 08-19-2021 13:05-0400 Body weight 97.[address] [facility] Work Phone: 06-15-2021 20:23-0400 Body height 185.[address] [facility] Work Phone: 06-15-2021 20:23-0400 Body mass index (BMI) [Ratio] 28.4 kg/m2 [facility] Work Phone: 06-15-2021 20:23-0400 Body temperature 97.8 [degF] [facility] Work Phone: 06-15-2021 20:23-0400 Body weight 97.[address] [facility] Work Phone: 06-15-2021 20:23-0400 Diastolic blood pressure 118 mm[Hg] [facility] Work Phone: 06-15-2021 20:23-0400 Heart rate 129 /min [facility] Work Phone: 06-15-2021 20:23-0400 Respiratory rate 20 /min [facility] Work Phone: 06-15-2021 20:23-0400 SaO2% (BldA) [Mass fraction] 96 % [facility] Work Phone: 06-15-2021 20:23-0400 Systolic blood pressure 164 mm[Hg] [facility] Work Phone: 03-18-2021 18:10-0500 Body mass index (BMI) [Ratio] 27.7 kg/m2 [facility] Work Phone: 03-18-2021 18:10-0500 Body temperature 98.2 [degF] [facility] Work Phone: 03-18-2021 18:10-0500 Body weight 95.[address] [facility] Work Phone: 03-18-2021 18:10-0500 Diastolic blood pressure 104 mm[Hg] [facility] Work Phone: 03-18-2021 18:10-0500 Heart rate 115 /min [facility] Work Phone: 03-18-2021 18:10-0500 Respiratory rate 20 /min [facility] Work Phone: 03-18-2021 18:10-0500 SaO2% (BldA) [Mass fraction] 99 % [facility] Work Phone: 03-18-2021 18:10-0500 Systolic blood pressure 149 mm[Hg] [facility] Work Phone: 02-15-2021 10:51-0500 Diastolic blood pressure 81 mm[Hg] [facility] Work Phone: 02-15-2021 10:51-0500 Heart rate 82 /min [facility] Work Phone: 02-15-2021 10:51-0500 Systolic blood pressure 132 mm[Hg] [facility] Work Phone: 02-15-2021 09:23-0500 Body mass index (BMI) [Ratio] 28.2 kg/m2 [facility] Work Phone: 02-15-2021 09:23-0500 Body temperature 98.6 [degF] [facility] Work Phone: 02-15-2021 09:23-[address] [facility] Work Phone: 02-15-2021 09:23-0500 Respiratory rate 18 /min [facility] Work Phone: 02-15-2021 09:23-0500 SaO2% (BldA) [Mass fraction] 98 % [facility] Work Phone: Encounters Encounter Date Encounter Type Care Provider Facility Start: 01-24-2025 ambulatory [facility] Start: 01-22-2025 ambulatory [facility] Start: 01-22-2025 ambulatory [facility] Start: 01-22-2025 Encounter for other preprocedural examination [facility] Start: 01-14-2025 End: 01-14-2025 Emergency department patient visit Neerajollie Antonio Facility:[facility] Start: 01-10-2025 End: 01-10-2025 ambulatory [facility] Start: 01-09-2025 End: 01-09-2025 Office outpatient visit 15 minutes Apoorva Griffin MD Work Phone: [facility] Comment on above: Herniated nucleus pu lposus, L4-5 (Primary Dx); Paresthesia of upper extremity; Spinal stenosis, cervical region; Pain of left lower extremity; Chronic bilateral low back pain with left-sided sciatica; Spinal stenosis of cervical region; Weakness of left foot; Neurogenic bowel; Back pain with radiculopathy; Cervical myelopathy; Left foot drop Start: 01-09-2025 End: 01-09-2025 ambulatory [facility] Start: 01-08-2025 End: 01-08-2025 ambulatory [facility] Start: 12-29-2024 End: 12-29-2024 ambulatory [facility] Start: 12-26-2024 End: 12-26-2024 Office outpatient visit 40 minutes Sha Foster MD Work Phone: [facility] Comment on above: Lumbar radiculopathy (Primary Dx) Start: 12-26-2024 End: 12-26-2024 ambulatory [facility] Start: 12-17-2024 End: 12-17-2024 Emergency department patient visit Dr. Josafat Tinoco DO Work Phone: -Emergency Department Work Phone: Start: 12-15-2024 End: 12-15-2024 ambulatory [facility] Start: 12-12-2024 End: 12-12-2024 ambulatory [facility] Start: 12-08-2024 End: 12-08-2024 Emergency department patient visit Parrish Talbert MD Work Phone: [facility] Comment on above: Low back pain with l eft-sided sciatica, unspecified back pain laterality, unspecified chronicity (Primary Dx) Start: 12-08-2024 End: 12-08-2024 ambulatory [facility] Start: 12-08-2024 End: 12-08-2024 Subsequent hospital visit by physician Juanita Mri 1 [facility] Comment on above: Myelopathy (Multi) Start: 12-05-2024 End: 12-05-2024 ambulatory [facility] Start: 12-01-2024 End: 12-01-2024 ambulatory [facility] Start: 11-24-2024 End: 11-24-2024 ambulatory [facility] Start: 11-21-2024 End: 11-21-2024 ambulatory [facility] Start: 11-16-2024 End: 11-16-2024 ambulatory [facility] Start: 11-14-2024 End: 11-14-2024 ambulatory [facility] Start: 11-10-2024 End: 11-11-2024 Emergency department patient visit Dr. Josafat Tinoco DO Work Phone: -Emergency Department Work Phone: Start: 11-10-2024 End: 11-10-2024 Office outpatient visit 25 minutes Sha Foster MD Work Phone: [facility] Comment on above: Myelopathy (Multi) Start: 11-10-2024 End: 11-10-2024 ambulatory [facility] Maribel [facility] Start: 10-31-2024 End: 10-31-2024 Office outpatient visit 25 minutes Apoorva Griffin MD Work Phone: [facility] Comment on above: Herniated nucleus pu lposus, L4-5 (Primary Dx); Paresthesia of upper extremity; Spinal stenosis, cervical region; Pain of left lower extremity; Chronic bilateral low back pain with left-sided sciatica; Spinal stenosis of cervical region; Weakness of left foot; Neurogenic bowel; Back pain with radiculopathy; Left foot drop; Cervical myelopathy Start: 10-31-2024 End: 10-31-2024 ambulatory [facility] Start: 10-23-2024 End: 10-23-2024 Emergency department patient visit Dr. Josafat Tinoco DO Work Phone: -Emergency Department Work Phone: Start: 10-16-2024 End: 10-16-2024 ambulatory [facility] Start: 10-12-2024 End: 10-12-2024 Subsequent hospital visit by physician [facility] Comment on above: Herniated nucleus pu lposus, L4-5; Pain of left lower extremity; Weakness of left foot; Neurogenic bowel; Left foot drop Start: 10-12-2024 End: 10-12-2024 ambulatory [facility] Start: 10-02-2024 End: 10-02-2024 ambulatory [facility] Start: 10-02-2024 End: 10-02-2024 Office outpatient new 60 minutes Apoorva Griffin MD Work Phone: [facility] Comment on above: Herniated nucleus pu lposus, L4-5 (Primary Dx); Paresthesia of upper extremity; Spinal stenosis, cervical region; Spinal stenosis of cervical region; Chronic bilateral low back pain with left-sided sciatica; Pain of left lower extremity; Weakness of left foot; Neurogenic bowel; Back pain with radiculopathy; Cervical myelopathy; Left foot drop Start: 07-24-2024 End: 07-24-2024 ambulatory [facility] Start: 07-24-2024 End: 07-24-2024 Office outpatient new 45 minutes Suraj Meyers MD Work Phone: [facility] Comment on above: Back pain with radic ulopathy Start: 07-19-2024 End: 07-19-2024 Office outpatient new 60 minutes Radha Dixon DO Work Phone: [facility] Comment on above: Cervical myelopathy (Primary Dx); Back pain with radiculopathy Start: 07-19-2024 End: 07-19-2024 ambulatory [facility] Start: 07-13-2024 End: 07-14-2024 Emergency department patient visit [facility] Comment on above: Acute exacerbation o f chronic low back pain (Primary Dx) Start: 06-28-2024 Encounter for genera l adult medical examination without abnormal findings [facility] Start: 06-28-2024 End: 06-28-2024 Office outpatient new 60 minutes Josafat Tinoco DO Work Phone: [facility] Comment on above: Preventative health care (Primary Dx); Other chronic pain; Vitamin D deficiency; Attention deficit hyperactivity disorder (ADHD), unspecified ADHD type; Hyperlipidemia, unspecified hyperlipidemia type; Bipolar affective disorder, remission status unspecified (Multi); Hyperverbal speech Start: 06-28-2024 End: 06-28-2024 Patient encounter status Josafat Tinoco DO Work Phone: [facility] Work Phone: Start: 06-28-[address] [facility] Start: 06-28-2024 Encounter for genera l adult medical examination without abnormal findings [facility] Start: 06-15-2024 End: 06-15-2024 Emergency department patient visit Lisa Polanco MD Work Phone: [facility] Emergency Department Comment on above: Sciatica of left brice e (Primary Dx) Start: 06-06-2024 End: 06-06-2024 Office outpatient visit 25 minutes Sha Foster MD Work Phone: [facility] Comment on above: Cervical radiculopat hy (Primary Dx) Start: 06-06-2024 End: 06-06-2024 Subsequent hospital visit by physician Juanita Hay X-Ray 2 [facility] Comment on above: Cervical radiculopat hy Start: 06-06-2024 End: 06-06-2024 ambulatory [facility] Start: 05-19-2024 End: 05-19-2024 [facility] Comment on above: Accidental fall, ini tial encounter (Primary Dx); Neck sprain, initial encounter; Lumbar radiculopathy, acute; Leg weakness, bilateral Start: 03-07-2024 End: 03-07-2024 Postop follow up visit related to original px Sha Foster MD Work Phone: [facility] Comment on above: Cervical radiculopat hy (Primary Dx) Start: 03-07-2024 End: 03-07-2024 Subsequent hospital visit by physician Juanita Hay X-Ray 3 [facility] Comment on above: Cervical radiculopat hy Start: 03-07-2024 End: 03-07-2024 ambulatory [facility] Start: 02-28-2024 End: 02-28-2024 Patient encounter procedure Jeff Nichols MD Work Phone: [facility] Comment on above: Arrived Start: 02-28-2024 End: 02-28-2024 ambulatory JEFF NICHOLS [facility] Start: 02-22-2024 Evaluation and manag ement of inpatient [facility] Start: 02-22-2024 End: 02-26-2024 Evaluation and management of inpatient Sha Foster MD Work Phone: [facility] 6 Comment on above: Spinal stenosis ([place] Dx); Spinal stenosis, cervical region; Abscess of axilla, left Start: 02-22-2024 Evaluation and manag ement of inpatient [facility] Start: 02-22-2024 End: 02-22-2024 Office outpatient visit 40 minutes Sha Foster MD Work Phone: [facility] Comment on above: Cervical radiculopat hy Start: 02-22-2024 End: 02-22-2024 ambulatory [facility] Start: 02-17-2024 End: 02-17-2024 Subsequent hospital visit by physician Nicholas [facility] Comment on above: Back pain with radic ulopathy Start: 02-17-2024 End: 02-17-2024 ambulatory [facility] Start: 02-08-2024 End: 02-09-2024 Emergency department patient visit [facility] Comment on above: Lumbosacral radiculi tis (Primary Dx) Start: 02-08-2024 End: 02-08-2024 Office outpatient visit 40 minutes Sha Foster MD Work Phone: [facility] Comment on above: Back pain with radic ulopathy (Primary Dx) Start: 02-08-2024 End: 02-08-2024 [facility] Start: 01-29-2024 End: 01-29-2024 Emergency department patient visit Zuleyka Bryant DO Work Phone: [facility] Comment on above: Chronic bilateral lo w back pain with bilateral sciatica (Primary Dx); Incontinence of feces with fecal urgency Start: 12-14-2023 End: 12-14-2023 Office outpatient visit 25 minutes Sha Foster MD Work Phone: [facility] Comment on above: Lumbar pain (Primary Dx); Lumbar radiculopathy Start: 12-12-2023 End: 12-12-2023 Emergency department patient visit [facility] Comment on above: Acute exacerbation o f chronic low back pain (Primary Dx) Start: 12-07-2023 End: 12-07-2023 Emergency department patient visit [facility] Start: 11-14-2023 End: 11-15-2023 Emergency department patient visit [facility] Start: 08-28-2023 End: 08-28-2023 Emergency department patient visit [facility] Start: 05-18-2023 End: 05-18-2023 Emergency department patient visit [facility] Work Phone: Start: 05-04-2023 End: 05-04-2023 Subsequent hospital visit by physician Juanita Hay X-Ray 1 [facility] Comment on above: Lumbar pain Start: 05-04-2023 End: 05-04-2023 Office outpatient new 45 minutes Sha Foster MD Work Phone: [facility] Comment on above: Lumbar pain (Primary Dx); Lumbar radiculopathy Start: 04-10-2023 End: 04-10-2023 [facility] Start: 03-09-2023 End: 03-09-2023 [facility] Start: 12-04-[address] Sha Foster Facility:[id number] Start: 11-09-2022 End: 11-09-2022 [facility] Start: 06-16-2022 End: 06-16-2022 [facility] Start: 03-17-[address] Sha Foster Facility:[id number] Start: 08-20-2021 End: 08-22-2021 [facility] Start: 08-19-2021 End: 08-19-2021 [facility] Start: 06-15-2021 End: 06-15-2021 [facility] Start: 03-18-2021 End: 03-18-2021 [facility] Start: 02-15-2021 End: 02-15-2021 [facility] Start: 02-15-2018 Patient encounter procedure SHA FOSTER Facility:8 Start: 01-26-2018 Patient encounter procedure SHA FOSTER Facility:[facility] Start: 01-04-2018 Patient encounter procedure SHA FOSTER Facility:8 Start: 10-19-2017 Patient encounter procedure TUAN ALBARADO Facility:[id number] Start: 06-25-2017 Patient encounter procedure SHA FOSTER Facility:8 Start: 05-27-2017 End: 05-27-2017 Emergency department patient visit TOM WESLEY Facility:[facility] Procedures Date Procedure Procedure Detail Performing Clinician Start: 12-17-2024 Urnls dip stick/tabl et reagent auto microscopy Dr. Josafat Tinoco DO Work Phone: Start: 12-17-2024 End: 12-17-2024 Polymerase chain reaction analysis Dr. Josafat Tinoco DO Work Phone: Start: 12-08-2024 Ct lumbar spine w/o contrast material Parrish Talbert MD Work Phone: Start: 07-14-2024 Drug tst prsmv instr mnt chem analyzers pr date Ines Salter [employer] Work Phone: Start: 07-14-2024 Blood count complete auto&auto difrntl wbc Inesharika Salter [employer] Work Phone: Start: 07-14-2024 Urnls dip stick/tabl et rgnt auto w/o microscopy Inesharika Salter [employer] Work Phone: Start: 07-13-2024 Ct abdomen w/o contr ast material Inesharika Salter [employer] Work Phone: Start: 07-13-2024 Comprehensive metabo lic panel Inesharika [employer] Work Phone: Start: 06-06-2024 Radex spine cervical [...] End: 02-24-2024 Basic metabolic panel calcium total Jewesl N Ovidio [employer] Work Phone: Start: 02-24-2024 EXTRA TUBES Sha lomax MD Work Phone: Start: 02-24-2024 SST TOP Sha lomax MD Work Phone: Start: 02-23-2024 Ecg routine ecg w/le ast 12 lds trcg only w/o i&r Jewels N Ovidio [employer] Work Phone: Start: 02-23-2024 Drug screen quantita tive vancomycin Param Bogner PharmD Start: 02-23-2024 Cul bact xcpt urine blood/stool aerobic isol Qi Durantnereyda [employer] Work Phone: Start: 02-23-2024 Drug screen quantita tive vancomycin Param Bogner PharmD Start: 02-23-2024 EXTRA TUBES Sha lomax MD Work Phone: Start: 02-23-2024 LAVENDER TOP Sha lomax MD Work Phone: Start: 02-22-2024 Ct thorax w/contrast material Haley Yates [employer] Work Phone: Start: 02-22-2024 Culture bacterial bl ood aerobic w/id isolates Haley Yates [employer] Work Phone: Start: 02-22-2024 End: 02-22-2024 C-reactive protein Haley Yates [employer] Work Phone: Start: 02-22-2024 End: 02-22-2024 Comprehensive metabolic panel Dev Martel PA-C Work Phone: Start: 02-22-2024 EXTRA TUBES Sha lomax MD Work Phone: Start: 02-22-2024 SST TOP Sha lomax MD Work Phone: Start: 01-29-2024 Urnls dip stick/tabl et rgnt auto w/o microscopy Zuleyka Bryant DO Work Phone: Start: 01-29-2024 C-reactive protein Scot ty Nato DO Work Phone: Start: 01-29-2024 Comprehensive metabo lic panel Zuleyka Bryant DO Work Phone: Start: 05-04-2023 Radex spine lumbosac ral minimum 4 views Sha Foster MD Work Phone: Start: 08-20-2021 Viral antigen assay Start: 09-28-2017 Lipid 1996 panel - S matthew or Plasma Sha Foster MD Work Phone: Plan of Treatment Date Care Activity Detail Author Start: 08-12-2031 Zoster Vaccines (1 of 2) Zoster Vaccines (1 of 2) [facility] Start: 02-25-2027 Diabetes mellitus screening Diabetes Screening [facility] Start: 06-29-2025 Yearly Adult Physical Yearly Adult Physical [facility] Start: 05-08-2025 End: 05-08-2025 Patient encounter procedure 05/08/2025 10:00 AM EST Office Visit [facility] [address] [place] [address] Apoorva Griffin MD [address] [place], [place] [id number] [facility] Start: 02-20-2025 End: 02-20-2025 Patient encounter procedure 02/20/2025 1:45 PM EST Office Visit [facility] [address] [place] [address] Sha Foster MD [address] [facility], [address] [place], [place] [id number] [facility] Start: 02-05-2025 End: 02-05-2025 LAMINECTOMY, DECOMPRESSIVE, SPINE, LUMBAR, 1 LEVEL, WITH FUSION USING INSTRUMENTATION LAMINECTOMY, DECOMPRESSIVE, SPINE, LUMBAR, 1 LEVEL, WITH FUSION USING INSTRUMENTATION Spinal stenosis, lumbosacral region 02/05/2025 7:30 AM EST [facility] Start: 02-05-2025 End: 02-05-2025 [facility] Comment on above: Pre-op testing (Primary Dx) Spinal stenosis, lum bosacral region (Primary Dx) L5-S1 LAMINECTOMY, I NSTRUMENTATION, POSTERIOR INTERBODY FUSION, POSTERIOR LATERAL FUSION [[id number] ([facility] )] Start: 01-29-2025 End: 01-29-2025 Patient encounter procedure 01/29/2025 9:00 AM EST Office Visit [facility] [address] [address] Josafat Tinoco DO [address] [facility], [address] [address] [facility] Start: 01-26-2025 End: 01-26-2025 Patient encounter procedure 01/26/2025 1:30 PM EST Office Visit [facility] [address] [place] [phone] Dev Martel PA-C [address] [place] [address] [id number] [facility] Start: 01-22-2025 End: 01-22-2025 Admission to establishment 01/22/2025 1:00 PM EST [facility] [address] [facility] [place] [address] [facility] Start: 01-10-2025 End: 01-10-2025 ambulatory 01/10/2025 4:00 PM EDT [facility] [address] [place] [id number] Natividad Ferguson, [employer] [address] [place] [address] [facility] Start: 01-09-2025 End: 01-09-2025 Patient encounter procedure 01/09/2025 10:45 AM EDT Office Visit [facility] [address] [facility] [address] [place] [phone] Apoorva Griffin MD [address] [facility] [address] [place] [address] [facility] Start: 01-08-2025 End: 01-08-2025 ambulatory 01/08/2025 12:00 PM EDT [facility] [address] [place] [id number] [place] [address] [place] [address] Toya Diaz [facility] Start: 01-03-2025 End: 01-03-2025 ambulatory 01/03/2025 3:15 PM EDT [facility] [address] [place] [phone] Natividad Ferguson, [employer] [address] [place] [address] Toya Diaz [facility] Start: 12-29-2024 End: 12-29-2024 ambulatory 12/29/2024 3:30 PM EDT Treatment [facility] [address] [place] [address] Natividad Ferguson, CHILDREN[employer] MINISTER [address] [place] [address] [facility] Start: 12-26-2024 End: 12-26-2024 Patient encounter procedure 12/26/2024 1:00 PM EDT Office Visit [facility] [address] [phone] Sha Foster MD [address] [facility], [address] [place] [address] [id number] [facility] Start: 12-17-2024 [facility] Start: 12-15-2024 End: 12-15-2024 ambulatory 12/15/2024 1:15 PM EDT Treatment [facility] [address] [place] [address] Natividad Ferguson, CHILDREN[employer] MINISTER [address] [place] [address] [facility] Start: 12-12-2024 End: 12-12-2024 ambulatory 12/12/2024 2:00 PM EDT Treatment [facility] [address] [place] [address] [place] [address] [place] [address] [facility] Start: 12-08-2024 End: 12-08-2024 ambulatory 12/08/2024 10:45 AM EDT Treatment [facility] [address] [place] [address] [place] [address] [place] [address] [facility] Start: 12-05-2024 End: 12-05-2024 ambulatory 12/05/2024 2:45 PM EDT Treatment [facility] [address] [place] [address] [place] [address] [place] [address] [facility] Start: 12-01-2024 End: 12-01-2024 ambulatory 12/01/2024 3:30 PM EDT Treatment [facility] [address] [place] [address] Natividad Ferguson, CHILDREN[employer] MINISTER [address] [place] [address] [facility] Start: 11-28-2024 End: 11-28-2024 ambulatory 11/28/2024 10:30 AM EDT [facility] [address] [place] [address] Natividad Ferguson, CHILDREN[employer] MINISTER [address] [place] [address] [facility] Start: 11-24-2024 End: 11-24-2024 ambulatory 11/24/2024 10:45 AM EDT Treatment [facility] [address] [place] [address] [place] [address] [place] [address] [facility] Start: 11-21-2024 End: 11-21-2024 ambulatory 11/21/2024 9:00 AM EDT Treatment [facility] [address] [place] [address] Natividad Ferguson, CHILDREN'[employer] MINISTER [address] [place] [address] [facility] Start: 11-16-2024 End: 11-16-2024 ambulatory 11/16/2024 11:15 AM EDT Treatment [facility] [address] [place] [address] [place] [address] [place] [address] [facility] Start: 11-14-2024 End: 11-14-2024 ambulatory 11/14/2024 10:30 AM EDT Treatment [facility] [address] [place] [address] Natividad Ferguson, CHILDREN[employer] MINISTER [address] [place] [address] [facility] Start: 11-13-2024 COVID-19 Vaccine ( season) COVID-19 Vaccine ( season) [facility] Start: 11-13-2024 COVID-19 Vaccine ( season) COVID-19 Vaccine ( season) [facility] Start: 11-13-[address] [facility] Start: 11-11-2024 [facility] Start: 11-10-2024 End: 11-10-2025 MR Cervical spine WO contrast MR cervical spine wo IV contrast Imaging Routine Myelopathy (Multi) Expected: 11/10/2024 (Approximate), Expires: 11/10/2025 [facility] Service Area Work Phone: Comment on above: Expected: 11/10/2024 (Approximate), Expi res: 11/10/2025 Start: 11-10-2024 End: 11-10-2025 MR Thoracic spine WO contrast MR thoracic spine wo IV contrast Imaging Routine Myelopathy (Multi) Expected: 11/10/2024 (Approximate), Expires: 11/10/2025 [facility] Work Phone: Comment on above: Expected: 11/10/2024 (Approximate), Expi res: 11/10/2025 Start: 10-31-2024 End: 10-31-2024 Patient encounter procedure 10/31/2024 10:00 AM EDT Office Visit [facility] [address] [facility] [address] [place] [phone] Apoorva Griffin MD [address] [facility] [address] [place] [address] [facility] Start: 10-16-2024 End: 10-16-2024 Clinical Support 10/16/2024 4:00 PM EDT Clinical Support [facility] [address] [place] [address] Zuri Melo, SAMEER [address] [place] [address] [facility] Start: 10-13-2024 Influenza vaccination [facility] Start: 10-12-2024 End: 10-12-2024 Patient encounter procedure 10/12/2024 1:45 PM EDT Appointment [address] [address] [facility] Start: 10-02-2024 End: 10-02-2025 MR Lumbar [...] encounter procedure 10/02/2024 11:30 AM EDT Consult [facility] [address] [place] [address] Apoorva Griffin MD [address] [place] [address] [facility] Start: 07-24-2024 End: 07-24-2024 Patient encounter procedure 07/24/2024 8:30 AM EDT Office Visit [address] [place] [address] Suraj Meyers MD [address] [place] [address], [address], [address] [place] [address] [facility] Start: 07-19-2024 End: 07-19-2024 Patient encounter procedure 07/19/2024 10:50 AM EDT Office Visit [facility] [address] [facility] [address] [place] [address] Radha Dixon DO [address] [place] [address] [facility] Start: 07-04-2024 End: 07-04-2024 Patient encounter procedure 07/04/2024 8:30 AM EDT Office Visit [facility] [address] [place] [address] Sha Foster MD [address] [facility], [address] [place] [address] [facility] Start: 06-28-2024 End: 06-28-2024 Patient encounter procedure 06/28/2024 9:20 AM EDT Office Visit [facility] [address] [facility] [address] [facility] [place] [phone] Josafat Tinoco DO [address] [facility], [facility] [address] [facility] [place] [address] [facility] Start: 06-06-2024 End: 06-06-2025 XR Cervical spine 2 or 3 Views [facility] Service Area Work Phone: Comment on above: Expected: 06/06/2024, Expires: Start: 06-06-2024 End: 06-06-2024 Patient encounter procedure 06/06/2024 11:00 AM EDT Office Visit [facility] [address] [facility] [place] [phone] Sha Foster MD [address] [facility], [address] [place] [address], [place] [address] [facility] Start: 03-13-2024 End: 03-13-2024 Patient encounter procedure 03/13/2024 9:30 AM EST Office Visit [address] [place] [phone] Jeff Nichols MD [address] [place] [address] [facility] [address] [place], [place] [phone] [facility] Start: 03-07-2024 End: 03-07-2024 Patient encounter procedure 03/07/2024 11:15 AM EST Office Visit [facility] [address] [facility] [place] [phone] Sha Foster MD [address] [facility], [address] [place] [address], [place] [phone] [facility] Start: 03-02-2024 Documentation procedure 03/02/2024 Scanned Document [facility] [address] [facility] [place] [phone] Sha Foster MD [address] [facility], [address] [place] [address], [place] [address] [facility] Start: 02-28-2024 End: 02-28-2024 Patient encounter procedure 02/28/2024 9:30 AM EST Office Visit [facility] [address] [place] [facility] [place] [address] Jeff Nichols MD [address] [place] [address] Dr [address] [place] [address] [facility] Start: 02-22-2024 End: 02-22-2024 Patient encounter procedure 02/22/2024 10:30 AM EST Office Visit [facility] [address] [facility] [place] [phone] Sha Foster MD [address] [facility], [address] [place] [address], [place] [address] [facility] Start: 02-08-2024 End: 02-07-2025 [...] pain with radiculopathy Expected: 02/08/2024, Expires: 02/07/2025 [facility] Work Phone: Comment on above: Expected: 02/08/2024, Expires: Start: 02-08-2024 End: 02-07-2025 MR Thoracic spine WO contrast MR thoracic spine wo IV contrast Imaging STAT Back pain with radiculopathy Expected: 02/08/2024, Expires: 02/07/2025 [facility] Work Phone: Comment on above: Expected: 02/08/2024, Expires: 5 Start: 12-14-2023 End: 12-13-2024 MR Lumbar spine WO and W contrast IV MR lumbar spine w and wo IV contrast Imaging Routine Lumbar pain Lumbar radiculopathy Expected: 12/14/2023 (Approximate), Expires: 12/13/2024 [facility] Service Area Work Phone: Comment on above: Expected: 12/14/2023 (Approximate), Expi res: 12/13/2024 Start: 11-14-2023 COVID-19 Vaccine ( season) COVID-19 Vaccine ( season) [facility] Start: 11-14-2023 COVID-19 Vaccine ( season) COVID-19 Vaccine ( season) [facility] Start: 11-14-2023 Influenza vaccination Influenza Vaccine (#1) [facility] Start: 10-14-2023 Influenza vaccination Flu vaccine (#1) [facility] Start: 05-18-2023 [facility] Start: 05-18-2023 End: 05-18-2023 Patient encounter procedure 05/18/2023 2:00 PM EST Appointment [address] [address] [facility] Start: 05-04-2023 End: 05-04-2024 MR Lumbar spine WO and W contrast IV MR lumbar spine w and wo IV contrast Imaging Routine Lumbar pain Lumbar radiculopathy Expected: 05/04/2023 (Approximate), Expires: 05/04/2024 [facility] Service Area Work Phone: Comment on above: Expected: 05/04/2023 (Approximate), Expi res: 05/04/2024 Start: 04-10-2023 [facility] Start: 03-09-2023 [facility] Start: 11-13-2022 Influenza vaccination Influenza Vaccine (#1) [facility] Start: 09-28-2022 Lipid panel Lipid Panel [facility] Start: 06-16-[address] [facility] Start: 06-16-2022 Plain chest X-ray Chest 1 View (Portable) [facility] Start: 06-16-[address] [facility] Start: 06-16-2022 [facility] Start: 2021 Lipid panel Lipids [facility] Start: 09-28-2020 Diabetes mellitus screening Diabetes Screening [facility] Start: 09-28-2018 Hemoglobin A1c measurement Diabetes: Hemoglobin A1C [facility] Start: 11-17-2013 DTaP/Tdap/Td Vaccines (1 - Tdap) DTaP/Tdap/Td Vaccines (1 - Tdap) [facility] Start: 2008 HPV Vaccines (1 - 3-dose standard series) HPV Vaccines (1 - 3-dose standard series) [facility] Start: 08-12-2003 DTaP/Tdap/Td Vaccines (1 - Tdap) DTaP/Tdap/Td Vaccines (1 - Tdap) [facility] Start: 2000 DTaP/Tdap/Td vaccine (1 - Tdap) DTaP/Tdap/Td vaccine (1 - Tdap) [facility] Start: 2000 Hepatitis A Vaccines (1 of 2 - Risk 2-dose series) Hepatitis A Vaccines (1 of 2 - Risk 2-dose series) [facility] Start: 2000 Hepatitis B vaccine (1 of 3 - 19+ 3-dose series) Hepatitis B vaccine (1 of 3 - 19+ 3-dose series) [facility] Start: 2000 Hepatitis B Vaccines (1 of 3 - 19+ 3-dose series) Hepatitis B Vaccines (1 of 3 - 19+ 3-dose series) [facility] Start: 2000 Pneumococcal 0-49 years Vaccine (1 of 2 - PCV) Pneumococcal 0-49 years Vaccine (1 of 2 - PCV) [facility] Start: 2000 Pneumococcal Vaccine: Pediatrics and At-Risk Adult Patients (1 of 2 - PCV) Pneumococcal Vaccine: Pediatrics and At-Risk Adult Patients (1 of 2 - PCV) [facility] Start: 08-12-[address] [facility] Start: 1996 HIV screening HIV screen [facility] Start: 1994 Varicella vaccination Varicella Vaccines (1 of 2 - 13+ 2-dose series) [facility] Start: 1994 Varicella vaccine (1 of 2 - 13+ 2-dose series) Varicella vaccine (1 of 2 - 13+ 2-dose series) [facility] Start: 1993 Depression Screen Depression Screen [facility] Start: 08-12-1987 Pneumococcal 0-64 years Vaccine (1 of 2 - PCV) Pneumococcal 0-64 years Vaccine (1 of 2 - PCV) [facility] Start: 08-12-1987 Pneumococcal Vaccine: Pediatrics (0 to 5 Years) and At-Risk Patients (6 to 64 Years) (1 of 2 - PCV) Pneumococcal Vaccine: Pediatrics (0 to 5 Years) and At-Risk Patients (6 to 64 Years) (1 of 2 - PCV) [facility] Start: 1982 MMR Vaccines (1 of 1 - Standard series) MMR Vaccines (1 of 1 - Standard series) [facility] Start: 1982 Varicella vaccination Varicella Vaccines (1 of 2 - 2-dose childhood series) [facility] Start: 02-11-1982 COVID-19 Vaccine (#1) COVID-19 Vaccine (#1) [facility] Start: 1981 Hepatitis B Vaccines (1 of 3 - 3-dose series) Hepatitis B Vaccines (1 of 3 - 3-dose series) [facility] Start: 1981 Yearly Adult Physical Yearly Adult Physical [facility] Alanine aminotransfe rase [Enzymatic activity/volume] in Serum or Plasma [facility] Albumin [Mass/volume ] in Serum or Plasma [facility] Alkaline phosphatase [Enzymatic activity/volume] in Serum or Plasma [facility] Anion gap measurement [facility] Aspartate aminotrans ferase [Enzymatic activity/volume] in Serum or Plasma [facility] Bacteria identified in Blood by Culture Blood Culture Microbiology Routine 02/22/2024 8:36 PM [facility] Work Phone: End: 02-23-2024 Bacteria identified in Unspecified specimen by Culture Tissue/Wound Culture/Smear Microbiology Routine Once (Lab) for 1 Occurrences starting 02/23/2024 until 02/23/2024 [facility] Work Phone: Comment on above: Once (Lab) for 1 Occurrences starting until 02/23/2024 End: 02-27-2024 Basic metabolic 2000 panel - Serum or Plasma Basic metabolic panel Lab Routine Morning draw (Lab) for 3 Occurrences starting 02/25/2024 until 02/27/2024, [address] [facility] Work Phone: Comment on above: Morning draw (Lab) for 3 Occurrences sta rting 02/25/2024 until 02/27/2024, 2 completed Bilirubin, total measurement [facility] BUN/Creatinine ratio [facility] Calcium [Mass/volume ] in Serum or Plasma [facility] Carbon dioxide, tota l [Moles/volume] in Serum or Plasma [facility] End: 02-27-2024 CBC panel - Blood by Automated count CBC Lab Routine Morning draw (Lab) for 3 Occurrences starting 02/25/2024 until 02/27/2024, [address] [facility] Work Phone: Comment on above: Morning draw (Lab) for 3 Occurrences sta rting 02/25/2024 until 02/27/2024, 2 completed Chloride [Moles/volu me] in Serum or Plasma [facility] Creatinine [Moles/vo lume] in Serum or Plasma [facility] ECG 12 lead ECG 12 lead ECG STAT 02/23/2024 2:38 PM [facility] Work Phone: End: 02-22-2024 Extra Urine Castrejon Tube Extra Urine [facility]re[facility] Lab Timed Once for 1 Occurrences starting 02/22/2024 until 02/22/2024 [facility] Work Phone: Comment on above: Once for 1 Occurrences starting 02/22/20 until 02/22/2024 Glucose [Mass/volume ] in Serum or Plasma [facility] End: 02-22-2024 Glucose [Mass/volume] in Serum or Plasma POCT Glucose Point of Care Testing - Docked Device Routine Once (Lab) for 1 Occurrences starting 02/22/2024 until 02/22/2024 [facility] Work Phone: Comment on above: Once (Lab) for 1 Occurrences starting until 02/22/2024 Glucose [Mass/volume ] in Serum or Plasma POCT Glucose Point of Care Testing - Docked Device Routine As needed (Lab) until discontinued starting 02/24/2024 [facility] Work Phone: Comment on above: As needed (Lab) until discontinued start ing 02/24/2024 Hematocrit [Volume F raction] of Blood [facility] Hemoglobin [Mass/vol ume] in Blood [facility] End: 02-24-2024 Incentive spirometry Instruct Incentive spirometry Instruct Respiratory Care Routine Once for 1 Occurrences starting 02/24/2024 until 02/24/2024 [facility] Work Phone: Comment on above: Once for 1 Occurrences starting 02/24/20 until 02/24/2024 Leukocytes [#/volume ] in Blood [facility] Mean corpuscular hem oglobin concentration determination [facility] Mean corpuscular hem oglobin determination [facility] Measurement of renal function [facility] End: 02-17-2024 MR Cervical spine WO contrast [facility] Service Area Work Phone: Comment on above: Once for 1 Occurrences starting 02/17/20 until 02/17/2024 End: 12-08-2024 MR Cervical spine WO contrast [facility] End: 02-17-2024 MR Thoracic spine WO contrast [facility] Work Phone: Comment on above: Once for 1 Occurrences starting 02/17/20 until 02/17/2024 End: 12-08-2024 MR Thoracic spine WO contrast [facility] Work Phone: Comment on above: Once for 1 Occurrences starting 12/09/19 until 12/08/2024 Neutrophil count [facility] Neutrophil percent differential count [facility] Patient Education [facility] Work Phone: Patient referral [facility] Work Phone: Platelets [#/volume] in Blood [facility] Potassium [Moles/vol ume] in Serum or Plasma [facility] Red blood cell count [facility] Red cell distributio n width determination [facility] Sodium [Moles/volume ] in Serum or Plasma [facility] Total protein measurement [facility] Urea nitrogen [Mass/ volume] in Serum or Plasma [facility] End: 02-22-2024 Urinalysis complete W Reflex Culture panel - Urine [facility] Work Phone: Comment on above: Once (Lab) for 1 Occurrences starting until 02/22/2024 Once for 1 Occurrenc es starting 02/22/2024 until 02/22/2024 Immunizations Immunization Date Immunization Notes Care Provider Ashley ricardo 11-16-2013 tetanus and diphther ia toxoids, adsorbed, preservative free, for adult use (2 Lf of tetanus toxoid and 2 Lf of diphtheria toxoid) [facility] Payers Date Payer Category Payer Self-pay [id number] 2018 Medicaid (Managed Care) 1.2. [id number]. [id number] 2018 Unknown AVANI CARDENAS [id number] 2018-Present [address] [place] [address] [id number]. [id number] 2013 Unknown [id number] 2013 Unknown [id number] 1981 Unknown [id number] 2.840.1.080546.3.579.2. 355 1981 Unknown [id number] 2.840.1.466403.3.579.2. 1981 Unknown [id number] 2.840.1.521697.3.579.2. 355 1981 Unknown [id number] 2840.1.107605.3.579.2. 1981 Unknown [id number] 2.840.1.616642.3.579.2. 355 1981 Unknown [id number] 840.1.047941.3.579.2. 355 1981 Unknown [id number] 2.840.1.691318.3.579.2. 1067 1981 Unknown [id number] 2840.1.275032.3.579.2. 106 1981 Unknown [id number] 2.840.1.645045.3.579.2. 182 1981 Unknown [id number] 2.840.1.058729.3.579.2. 182 1981 Unknown [id number] 2840.1.108321.3.579.2. 182 1981 Unknown [id number] 2.840.1.508206.3.579.2. 182 1981 Unknown [id number] 2.16840.1.388485.3.579.2. 182 1981 Unknown [id number] 2.16840.1.872486.3.579.2. 182 1981 Unknown [id number] 2.16840.1.017789.3.579.2. 182 1981 Unknown [id number] 2.840.1.150386.3.579.2. 182 1981 Unknown [id number] 2.840.1.922799.3.579.2. 182 1981 Unknown [id number] 2.0.1.188440.3.579.2. 1242 1981 Unknown [id number] 2.840.1.387432.3.579.2. 1242 1981 Unknown [id number] 2.840.1.929805.3.579.2. 1242 1981 Unknown [id number] 2.840.1.687883.3.579.2. 1242 1981 Unknown [id number] 2.840.1.460782.3.579.2. 1244 1981 Unknown [id number] 2.840.1.251614.3.579.2. 1243 1981 Unknown [id number] 2.840.1.525241.3.579.2. 1243 1981 Unknown [id number] 2.840.1.029476.3.579.2. 1243 1981 Unknown [id number] 2.840.1.837008.3.579.2. 1243 1981 Unknown [id number] 2.840.1.686580.3.579.2. 1243 1981 Unknown [id number] 2.840.1.128720.3.579.2. 1245 1981 Unknown [id number] 2.16.840.1.621137.3.579.2. 1245 1981 Unknown [id number] 2.16840.1.617785.3.579.2. 1245 1981 Unknown [id number] 2.16.840.1.567722.3.579.2. 1245 1981 Unknown [id number] 2.16840.1.786955.3.579.2. 1245 1981 Unknown [id number] 2.16840.1.762327.3.579.2. 1245 1981 Unknown [id number] 2.840.1.476009.3.579.2. 1245 1981 Unknown [id number] 2.840.1.280949.3.579.2. 1245 1981 Unknown [id number] 2.840.1.139471.3.579.2. 1245 1981 Unknown [id number] 2.840.1.833844.3.579.2. 1245 1981 Unknown [id number] 2.840.1.292334.3.579.2. 1245 1981 Unknown [id number] 2.840.1.234955.3.579.2. 1245 1981 Unknown [id number] 2.840.1.033621.3.579.2. 1245 1981 Unknown [id number] 2.840.1.400220.3.579.2. 1245 1981 Unknown [id number] 2.16840.1.848477.3.579.2. 1246 1981 Unknown [id number] 2.16840.1.833062.3.579.2. 1246 1981 Unknown [id number] 2.16840.1.940533.3.579.2. 1246 1981 Unknown [id number] 2.0.1.424027.3.579.2. 1246 1981 Unknown [id number] 2.0.1.377656.3.579.2. 1246 1981 Unknown [id number] 2.840.1.265709.3.579.2. 1246 1981 Unknown [id number] 2.0.1.019669.3.579.2. 1246 1981 Unknown [id number] 2.0.1.279232.3.579.2. 1246 1981 Unknown [id number] .1.175604.3.579.2. 1246 1981 Unknown [id number] .1.790784.3.579.2. 1246 1981 Unknown [id number] .1.730758.3.579.2. 1246 1981 Unknown [id number] 04.30.830.1.297751.3.579.2. 1246 1981 Unknown [id number] .1.696670.3.579.2. 1242 1981 Unknown [id number] .1.824370.3.579.2. 1242 1981 Unknown [id number] .1.947490.3.579.2. 1242 1981 Unknown [id number] 04.30.830.1.888491.3.579.2. 124 Unknown [id number] Unknown [id number] Unknown [id number] 20.1.846937.3.579.2. 462 Unknown [id number] .1.168822.3.579.2. 462 Unknown [id number] 2.16.840.1.889014.3.579.2. 462 Unknown [id number] 2.16.840.1.704660.3.579.2. 462 Social History Date Type Detail Facility Start: 06-15-2021 End: 05-18-2023 Tobacco smoking status NHIS Unknown if ever smoked [facility] Start: 01-24-[address] [facility] Start: 08-04-[address] [facility] Start: 1980 Sex Assigned At Male [facility] Start: 05-04-2023 Gender identity Identifies as male gender (finding) [facility] Work Phone: Start: 05-04-2023 Sexual orientation Heterosexual (finding) [facility] Work Phone: Start: 04-24-2023 End: 07-19-2024 Exposure to SARS-CoV-2 (event) Not sure [facility] Start: 02-22-1997 End: 02-23-2024 Tobacco smoking status NHIS Smokes tobacco daily [facility] Start: 02-22-1997 History of tobacco use Cigarette Smoker [facility] Start: 12-22-2016 End: 02-23-2024 Tobacco use and exposure Smokeless tobacco non-user [facility] Start: 12-12-2023 End: 07-13-2024 Alcoholic beverage intake Current drinker of alcohol (finding) [facility] Start: 12-12-2023 End: 02-23-2024 History of Social function [facility] Start: 12-12-2023 End: 02-23-2024 Alcohol Use Disorder Identification Test - Consumption [AUDIT-C] [facility] How often to you hav e a drink containing alcohol? Never [facility] Start: 02-06-2022 How many standard drinks containing alcohol do you have on a typical day? Patient does not drink [facility] Start: 08-12-2016 Alcohol Comment rarely [facility] Start: 1980 Sex assigned at Not on file [employer] Has the electric, ga s, oil, or water company threatened to shut off services in your home in past 12Mo No [facility] How hard is it for y ou to pay for the very basics like food, housing, medical care, and heating Somewhat hard [facility] How often to you hav e a drink containing alcohol? Monthly or less [facility] How many standard dr inks containing alcohol do you have on a typical day? 1 or 2 Information Assurance How often do you hav e 6 or more drinks on 1 occasion? Less than monthly [employer] Start: 07-03-2014 End: 02-06-2022 Sex Male (finding) [employer] Start: 07-19-2024 End: 12-26-2024 Alcoholic beverage intake Ex-drinker (finding) [facility] Work Phone: Medical Equipment Procedure Code Equipment Code Equipment Origin al Text Equipment Identifier Dates Acp Plate 40mm 2-Level [id number] Start: 02-24-2024 Viacell [id number] Start: 02-24-2024 Spacer, Hedron C , 14x16, 7mm, 7 Degree - Sna - [id number] Start: 02-24-2024 Spacer, Hedron C , 14x16, 7mm, 7 Degree - Sna - [id number] Start: 02-24-2024 Screw, Acp, Self Drill, 3.5 X 15mm, Variable - Sna - [id number] Start: 02-24-2024 Goals Date Patient Goal Desired Activity /State Personal health goal Personal health goal Functional Status Date Assessment Result Facility 01-09-2025 Functional status 145/80 025 10:40 AM Patty Cook MA 145/80 [facility] 01-09-2025 Vital signs 57 01/09/2025 10 :40 AM Patty Cook MA [facility] Work Phone: 12-08-2024 [facility] Work Phone: 12-08-[address] [facility] Work Phone: 12-08-2024 [place] - suicide severity rating scale screener - recent [C-SSRS] [facility] Work Phone: 12-08-2024 [facility] 12-08-2024 Functional status [facility] Mental Status Date Assessment Result Facility 10-23-2024 Cognitive function Voice/Name [facility] Work Phone: 06-16-2022 Cognitive function Voice/Name [facility] Work Phone: Clinical Notes 11-09-2022 to 01-09-2025 Apoorva Griffin MD - 01/09/2025 10:45 AM EDTPatient InstructionsSha Foster MD - 12/26/2024 1:00 PM EDT Note Date & Type Note Facility 01-09-2025 History of Present illness Narrative Chief complaint: Cervical myelopathy sequela follow-up This is a pleasant 44 y.o. right handed male, with past medical history of hyperlipidemia, vitamin D deficiency, bipolar disorder, ADHD, and cervical myelopathy who presents for follow-up of cervical myelopathy sequela. He was last seen here on 10/31/2024, at which point I advised him to increase baclofen and gabapentin and to continue taking ibuprofen and the Lorzone only as needed. He is still taking baclofen 15 mg 3 times daily and gabapentin 600 mg 3 times daily. Lorzone 500 mg 4 times daily, no longer taking ibuprofen. I advised him to continue with physical therapy and do daily home exercises. This is going well, resistance bands/stretches/lifting at home I advised him to proceed with the left AFO from [facility], and he likes this. I advised him to do his best to stop smoking. He is working on it, down to 2 cigarettes a day as he is planning on lumbar surgery with Dr. Foster assuming he stops smoking. They would do an L5-S1 left laminectomy decompressing the L5 and S1 nerve roots and posterolateral fusion at that level. Note from 12/26/2024 personally reviewed today. He does have some trouble sleeping; can't stay asleep, thinking, anxious/stress Denies any new falls, red flags etc. He rates his pain as 6-7/10, previously 7/10. Otherwise, there have been no changes to his medications or past medical history since last visit 10/31/2024: Lumbar MRI reviewed, continue increasing the baclofen, gabapentin, take Lorzone and ibuprofen as needed, continue with home exercises, proceed with PT and AFO, follow-up with spine surgeon about lumbar spine and left leg 01/09/2025: Continue medications, exercises, PT, AFO, proceed with lumbar surgery As a reminder: TIMELINE OF COMPLAINT(S): Patient [...] and L5-S1, with vacuum phenomenon. There is [id number] bilateral neural foraminal stenosis at these levels. [...] Difficult to do ADLs SH: Lives in: [place] Lives with: Mom Occupation: None, applying for SSDI Tobacco: Daily smoker, half pack per day Alcohol: No Drugs: Marijuana ___ ROS: The patient denies any bowel or bladder incontinence/accidents, night sweats, fevers, chills, recent significant weight loss. A 14 point review of systems was reviewed with the patient and is as above and otherwise negative. 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 Do this slowly by increasing by 5 mg at a time every 3-5 days.Maximum is 80 mg/day - Continue gabapentin but you can gabapentin slowly by 300 mg at a time every 3-5 days until you are at 900 mg 3 times per day. Maximum is 1200 mg three times per day -Continue lorzone as needed -Consider other medications in the future - Continue with PT and daily home exercises - Continue with AFO - Proceed with surgery for your lower back when you stop smoking -Follow-up after cleared for all activities after surgery The patient expressed understanding and agreement with the assessment and plan. Patient encouraged to contact us should they have any questions, concerns, or any changes in symptoms. Thank you for allowing me to participate in the care of your patient. Dictated with voice recognition software, please forgive any errors in grammar and/or spelling documented in this encounter [facility] Work Phone: 01-09-2025 Instructions Apoorva Griffin MD - 01/09/2025 10:45 AM EDT - Continue baclofen but you can increase baclofen to 20 mg 3 times per day. Do this slowly by increasing by 5 mg at a time every 3-5 days.Maximum is 80 mg/day - Continue gabapentin but you can gabapentin slowly by 300 mg at a time every 3-5 days until you are at 900 mg 3 times per day. Maximum is 1200 mg three times per day -Continue lorzone as needed -Consider other medications in the future - Continue with PT and daily home exercises - Continue with AFO - Proceed with surgery for your lower back when you stop smoking -Follow-up after cleared for all activities after surgery GOOD LUCK! documented in this encounter [facility] Work Phone: 12-26-2024 History of Present illness Narrative Harman Jamil is a 44 y.o. male who presents for Follow-up of the Neck (F/U MRI done at ) and Follow-up of the Middle Back (F/U MRI done at ). HPI: 44-year-old gentleman here for follow-up cervical and thoracic MRIs. He denies any fever chills nausea vomiting night sweats. He has no bowel or bladder complaints. Physical exam: Well-nourished, well kept.No lymphangitis or lymphadenopathy in the examined extremities. Gait steady, maybe minimally myelopathic. Can stand on heels and toes, he can independently stand on his left toes with a little difficult he does have an AFO on the left. Examination of the back shows tenderness in [...] or exacerbation of pain. Strength is 5/5 throughout, except his left ankle dorsiflexion is about 4/5. No redness, abrasions, or lesions on extremities Gross sensation intact in the extremities. Deep tendon reflexes 2+ bilateral, in the upper extremities patellar reflexes are hyperreflexic bilaterally. Sustained clonus bilaterally. Affect normal. Alert and oriented 3. Coordination normal. Positive Jo's bilaterally. Imaging studies: MRIs of the cervical and thoracic spine were reviewed today from December 08, 2024. He did also have a CT of his lumbar spine that was reviewed today from December 08, 2024. Assessment: 44-year-old gentleman here for follow-up cervical and thoracic MRIs and CT of the lumbar spine. See previous notes for details. Patient is improving, he is finished physical therapy and he states that he probably feels the best he has in a long time. He is exercising and lifting weights again, he can walk 5 miles, he usually breaks it up into 2 to 2-1/2 mile walks with a rest in between to let his back calm down. He still has some hyperreflexia in the lower extremities and sustained clonus. He has Jo's in the upper extremities but he does not appear to be hyperreflexic in the upper extremities. His gait is steady, it may be still a little unsteady, but he is not having any difficulty walking distances. He still has the dropfoot on the left which he wears an AFO. He does have strength in the left ankle, his dorsiflexion on the left is about 4/5, he can independently stand on his toes on the left foot. His main concern is the back pain in the buttock and leg on the left and mostly the left foot drop. At his last discussion with Dr. Foster they did talk about potential surgery to help with the back and leg symptoms as well as the foot drop symptoms. The patient is interested in pursuing this. He has cut back on his smoking significantly, he is down to 2 cigarettes a day and states that he is going to try to cut them out completely. He did have an emergency department visit on December 08, 2024 about 1 month after his last meeting with Dr. Foster for back pain follow-up. CAT scan was then ordered. We have reviewed test, MRI x 2, CT x 1. We reviewed the emergency department notes from December 08, 2024. This is an exacerbation of a chronic problem that is inhibiting his bodily function. We did consider and discussed surgery today. For complete plan and/or surgical details, please refer to Dr. Foster's portion of this split dictation. -Dev Martel PA-C In a [id number] encounter, I performed a history and physical examination, discussed pertinent diagnostic studies if indicated, and discussed diagnosis and management strategies with both the patient and the midlevel provider. I reviewed the midlevel's note and agree with the documented findings and plan of care. Patient here for follow-up. His main issue at this point is his left foot drop and left leg radicular symptoms. He says he feels significantly better since his neck surgery with regard to his myelopathy. He is working out in the gym he is lifting weights he can jump he can walk more normally. But he still has that foot drop on the left side as well as pain and numbness and tingling going down the L5 distribution on the left. He has had a prior surgery by me at L4-5 on the left decompressing the L4 and V nerve roots and that laminectomy went down towards and almost 2 the S1 level as there was impingement medial to the L5 pedicle. I had a long discussion with the patient and explained to them that their options are 1) live with the symptoms and see how they evolve, 2) physical therapy, 3) pain management or 4) surgery. At this point he wants to proceed with surgery for the left foot drop and left leg radiculopathy. He has been doing physical therapy. He has no interest in any more injections. He cannot live like this. He is severely inhibited with bodily function given the foot drop but otherwise he is functioning great and feels as if his myelopathy is significantly improved. He just thinks he has this 1 more thing to take care of and he will be functioning even better. He is hoping not have to use the brace. He does understand that there is no guarantees that his foot drop will improve at all with surgery but we are hopeful that he will have some improvement. Only way to know is to decompress the nerve and see how he is feeling. The patient understands that surgery is elective. They understand that surgery comes with more risks than not doing surgery. They understand they do not have to do surgery. However, they wish to proceed with surgery. All of the risks, benefits, and potential complications for operative and nonoperative treatment were discussed at length with the patient. Risks of operative intervention include, but are not limited to: 1) anesthesia complications, 2) extensive blood loss, 3) infection, 4) damage to uninjured structures including, but not limited to: The dural sac and nerve roots, 5) blood clots, and 6) lack of improvement or worsening of symptoms. These complications could result in , permanent disability, or need for reoperation. Upon leaving the office today the patient completely understood these risks and wishes to proceed with operative intervention. We are going to perform an L5-S1 left laminectomy decompressing the L5 and S1 nerve roots and taking that facet down completely. There is impingement intra foraminally and laterally at L5-S1 which will create iatrogenic instability with the laminectomy. We will then do an interbody cage instrumentation and posterolateral fusion at that level. We will expect some scar tissue given his prior laminectomy at L4-5 that headed down caudally. The patient understands increased risk of this operation given the fact that there is a revision component from surgery that we did on him in 2016. He is still smoking but says he is down to 2 cigarettes a day and he will quit prior to surgery. Sha Foster MD Orthopedic surgery documented in this encounter [facility] Work Phone: 12-17-[address] [facility] 12-17-2024 Discharge summary Note Date/Time December 17, 2024 11:01pm [facility] Medical Records Department [address] [place] [address] Emergency Department Summary 12/17/24 MR#: [id number] Acct: [id number] Name: HARMAN JAMIL Rep #:[id number] : 1980 44 From: Nathalie Hernandez PCP: Dr. Josafat Tinoco DO Status:DEP ER Location: ED HPI History of Present Illness Chief Complaint: Male Pain/Injury Informant: patient Narrative Narrative: Patient is a 44-year-old male with history of spinal surgeries with ongoing deficits (left foot drop and sensation/temperature deficits on the right side upto his chest) presenting for concern of HPV infection. Patient states that he has been celibate for 33 months but is going into a new relationship. He has noticed some spots on the shaft of his penis and at the base and was concerned that he could have HPV and wanted to be evaluated before he advanced his currentrelationship. He is not sure how long they have been there but notes that they have been there for some time. 1 at the base of his penis seems raised which isdifferent than his other ones and that concerned him he denies any associated pain, dysuria or penile discharge. Denies any testicular/scrotal pain or swelling. Had a possible exposure to HPV 5 years ago. Does note that he chronically masturbates approximately 7 times a day. [facility] Medical History ADHD Sciatica Cervical radiculopathy Home Medications ?Medication ?Instructions ?Recorded ?Last Taken ?Type gabapentin 300 mg capsule 600 mg PO Q8H 01/04/24 Unkno wn History baclofen 10 mg tablet 20 mg PO Q8H 10/23/24 Unknow n History cholecalciferol (vitamin D3) 125 125 mcg PO DAILY 10/13 04/08 Unknown History mcg (5,000 unit) capsule chlorzoxazone 500 mg tablet 500 mg PO 4X/DAY PRN PRN m uscle 11/11/24 Unknown History spasm Allergy/AdvReac Type Severity Reaction Status Date / Time No Known Allergies Allergy Verified 12/17/24 21:48 Family History no significant family his Surgical History Hx of tonsillectomy Previous back surgery Social History household members: none Smoking Status: Current every day smoker tobacco type: cigarettes alcohol intake: current alcohol intake frequency: other substance use type: marijuana ROS ROS ED Constitutional Constitutional ED: Denies chills or fever(s) Genitourinary Genitourinary ED: Denies dysuria, hematuria or urinary frequency Integumentary Reports rash and other Details: Brown bumps on the shaft of the penis and at thebase Neurologic Neurologic: Reports other Details: Chronic left foot drop and paresthesias to the right side of the body?no acute change Psychiatric Psychiatric: Reports anxiety; Denies depression EXAM Physical Exam Const Vital Signs: 12/17/24 21:47 Temperature 96 F L Temperature Source Temporal Pulse Rate 80 Respiratory Rate 18 Blood Pressure 145/96 H Blood Pressure Mean 112 Pulse Ox 100 Positive well nourished and well developed General Appearance ED: well developed and NAD HEENT Reports moist mucous membranes Neck supple Resp normal respiratory effort and clear to auscultation bilaterally Cardio regular rate and regular rhythm GI non-tender and non-distended Narrative: Chaperoned exam performed?normal external genitalia. Circumcised. Patient has some scattered brown slightly oblong raised lesions on the shaft of the penis at the base more consistent with nevi. There is some slight scarring/pockets of the right groin consistent with prior ingrown hairs/folliculitis Extremity normal to inspection Neuro oriented x3 Sensorium / Orientation: alert Psych Mood & Affect: anxious Thought Process: normal thought process Thought Content: normal thought content Skin Skin Narrative: See exam MDM MDM MDM Narrative Medical decision making narrative: Patient is evaluated for lesions on his penis and concern for possible STI. Differential includes is not limited to nevi, HPV and HSV. Physical exam is highly consistent with nevi. Per his request will test urine for GC/chlamydia. Is offered HIV and syphilis testing but patient declines. Heis otherwise well-appearing albeit anxious. Is given reassurance. Encouraged follow-up with family doctor and/or dermatology. Given return precautions. Will be contacted with GC/committee results. Patient discharged home. Contacted as his GC chlamydia test were negative. Urinalysis not consistent with infection Lab Data Labs: Laboratory Results - last 24 hr 12/17/24 22:45 Urine Color Yellow Urine Clarity Sl. Cloudy Urine pH 5.0 Ur Specific [place] 1.025 Urine Protein 30 H Urine Glucose (UA) Normal Urine Ketones Negative Urine Occult Blood 10 H Urine Nitrite Negative Urine Bilirubin Negative Urine Urobilinogen Normal Ur Leukocyte Esterase Negative Urine RBC 0 SEEN Urine WBC 0 SEEN Ur Squamous Epith Cells 0 SEEN Urine Bacteria 0 SEEN Urine Mucus 0 SEEN Discharge Plan Triage Chief Complaint: Male Pain/Injury ED Provider: Nathalie Manning Dx/Rx/DC Orders Clinical Impression: Nevus of shaft of penis Instructions: Monitoring Moles Prescriptions: No Action baclofen 10 mg tablet 20 mg PO Q8H cholecalciferol (vitamin D3) 125 mcg (5,000 unit) capsule 125 mcg PO DAILY gabapentin 300 mg capsule 600 mg PO Q8H chlorzoxazone 500 mg tablet 500 mg PO 4X/DAY PRN PRN (Reason: muscle spasm) Primary Care Provider: Josafat Tinoco Referrals: Josafat Tinoco DO [Primary Care Provider, Medical] Dhaval Sales MD [Med Staff - Investor Relations Director, Dermatology] Activity Restrictions/Additional Instructions: The spots on your genitalia are most consistent with moles (medical term is nevus). I do recommend follow-up with dermatology of abundance of caution. Will contact you with your gonorrhea and Chlamydia results. Print Language: Hong Konger Disposition Disposition: Home, Self Care Discharge Date/Time: 12/17/24 23:01 What to do if you have Problems For any increased pain, shortness of breath, bleeding, nausea or vomiting, chestpain, or any unexpected problems, contact your Primary Care Provider. Call [facility] ([phone]) or report to the closest Emergency Room. Call 911 if necessary. 12/18/24 0118 <Electronically signed by Nathalie Manning DO> Cosigner Signature (if applicable): CC: Dr. Josafat Tinoco DO ~ Signed [facility] Work Phone: [phone]) 117-888908-30-2025 Discharge summary [facility] Medical Records Department [address] [place] [address] Emergency Department Summary 11/11/24 MR#: [id number] Acct: [id number] Name: HARMAN JAMIL Rep #:[id number] : 1980 44 From: Eduardo kraft DO PCP: Dr. Josafat Tinoco DO Status:REG ER Location: ED HPI History [...] Psych: Cooperative, appropriate mood and affect PFSH PFSH Medical History ADHD Sciatica Cervical radiculopathy Home Medications ?Medication ?Instructions ?Recorded ?Last Taken ?Type gabapentin 300 mg capsule 600 mg PO Q8H 01/04/24 Unkno wn History baclofen 10 mg [...] of cervical radiculopathy, chronic lumbar back pain withknown disc herniation, sciatica presents for evaluation onacute [...] more acute on chronic back pain versus my ofascial spasm. Patient's pain will be treated with [...] (Reason: muscle spasm) Primary Care Provider: Josafat Tinoco Referrals: Josafat Tinoco DO [Primary Care Provider] - Print Language: Hong Konger What to do if you have Problems For any increased pain, shortness of breath, bleeding, nausea or vomiting, chestpain, or any unexpected problems, contact your Primary Care Provider. Call [facility] ([phone]) or report tothe closest Emergency Room. Call 911 if necessary. 11/11/24 4904 Cosigner Signature (if applicable): CC: Dr. Josafat Tinoco DO ~ Signed [facility]08-19-2025 History of Present illness Narrative* Apoorva Griffin MD - 10/31/2024 10:00 AM EDT Chief complaint: Cervical myelopathy sequela follow-up Dear [...] up to gabapentin 600mg TID. He started LorzoneQID yesterday and is still taking baclofen 15mg TID. Seems to be helping. He will continue to increase as tolerated before considering other medications I referred him to physical therapy. He had his first eval and hasn't scheduled his follow ups yet. They had him extend his back that caused severe pain. I advised him to proceed with the left AFO from [facility], he has been fitted and is pending insurance. I advised him to do his best to stop smoking. He is working on it He notes that he's having changes in his bowel and is unable to stop from defecating on himself. Hehad an accident yesterday. I ordered a lumbar [...] T1 and T2 signal at L5-S1 in theleft paracentral region with mild mass effect on the L5 and S1 nerve roots. This focus appears slightly more pronounced as compared to prior study. This may reflect herniated disc material or postsurgical granulation tissue/scarring or a combination of these entities. Consider contrast-enhanced MRIfor further assessment. 2. Additional multilevel lumbar spondylosis. He rates his pain as 7/10, previously 6/10. Otherwise, there have been no changes to his medications or past medical history since last visit 10/31/2024: Lumbar MRI reviewed, continue increasing the baclofen, gabapentin, take Lorzone and ibuprofen as needed, continue with home exercises, proceed with PT and AFO, follow-up with spine surgeonabout lumbar spine and left leg As a [...] and L5-S1, with vacuum phenomenon. There is [id number] bilateral neural foraminal stenosis at these levels. [...] T1 and T2 signal at L5-S1 in theleft paracentral region with mild mass effect on the L5 and S1 nerve roots. This focus appears slightly more pronounced as compared to prior study. This may reflect herniated disc material or postsurgical granulation tissue/scarring or a combination of these entities. Consider contrast-enhanced MRIfor further assessment. 2. Additional multilevel lumbar spondylosis. Lab Results Component Value Date HGBA1C 5.2 09/28/2017 FUNCTIONAL HISTORY: The patient is independent in all ADLs, mobility, and driving. The patient doesnot use any assistive device. 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 Physical exam is notable for lower [...] to discuss the significant stenosis at L5-S1 thatmay be contributing to his left leg weakness and ongoing/worsening bowel issues -Increase baclofen to 20 mg 3 times per day. Do this slowly by increasing by 5 mg at a time every 3-5 days.Maximum is 80 mg/day -You can also increase gabapentin slowly by 300 mg at a time every 3-5 days until you are at 900 mg3 times per day. Maximum is 1200 mg three times per day -Continue lorzone and ibuprofen as needed, but try taking ibuprofen less each time, for example 400mg or 600 mg instead of 800 mg [...] in grammar and/or spelling [facility]: [phone] 250-980208-19-2025 Instructions* Patient Instructions* Apoorva Griffin MD - 10/31/2024 10:00 AM EDT -Increase baclofen to 20 mg 3 times per day. Do this slowly by increasing by 5 mg at a time every 3-5 days.Maximum is 80 mg/day -You can also increase gabapentin slowly by 300 mg at a time every 3-5 days until you are at 900 mg3 times per day. Maximum is 1200 mg three times per day -Continue lorzone and ibuprofen as needed, but try taking ibuprofen less each time, for example 400mg or 600 mg instead of 800 mg -Consider other medications in the future -Proceed with PT and daily home exercises -Proceed with AFO -Follow up with your spine surgeon about your lower back -Do your Best to completely stop smoking cigarettes -Follow-up 2-3 months [facility] Phone: 1(883) 160-801308-11-2025 Discharge summary [facility] Medical Records Department [address] [place] [address] Emergency Department Summary 10/23/24 MR#: [id number] Acct: [id number] Name: HARMAN JAMIL Rep #:[id number] : 1980 44 From: Caleb Smith DO PCP: Dr. Josafat Tinoco DO Status:REG ER Location: ED ADDENDUM by Dr. Caleb Smith DO on 10/23/24 at 1603 Patient's EKG reviewed and showed sinus rhythm with a rate of 70 bpm. QTc was noted to be 437 with a normal NE interval 144. 10/23/24 1603 Cosigner Signature (if applicable): cc: Dr. Josafat Tinoco DO ~* Signed HPI History of Present Illness Chief Complaint: Unresponsive Narrative Narrative: Patient is a 44-year-old male with past medical history of ADHD, cervical radiculopathy status postsurgery in February, sciatic who presents to the emergency department with a chief complaint of unresponsiveness. Per security he was found unresponsive outside therefore they brought him in here loretta evaluated. [facility] Medical History ADHD Sciatica Cervical radiculopathy Home [...] states that earlier today he went to [facility] for a psych eval and he states that this appointment went well. He states that he stopped at a friend's house and then was on his way to see his mother and he notes that he ended up here and is not sure what happened. He denies any history of drug abuse. Patient's kwhsr-lk-smtf glucose was noted to be 105. Patient according nursing staff ripped all his monitoring off and states that heis leaving. Wantingto discussed with the patient and he states that he wants to go home and go to his mother's house and eat something and try to figure out what happened earlier today. I told the patient that there sania chance that hisNarcan is going to wear off and he could go back into a ulnar mental status withrespiratory depression ultimately leading to his he states that he understands this and wants toleave. Patient was up ambulatory completely dressed at [...] DO [Primary Care Provider] - Print Language: Hong Konger Disposition Disposition: Against Medical Advice What to do if you have Problems For any increased pain, shortness of breath, bleeding, nausea or vomiting, chestpain, or any unexpected problems, contact your Primary Care Provider. Call [facility] ([phone]) or report tothe closest Emergency Room. Call 911 if necessary. 10/23/24 1602 Cosigner Signature (if applicable): CC: Dr. Josafat Tinoco DO ~ Signed [facility]2025 Discharge summary Author Caleb Smith [facility] Note Date/Time October 23, 2024 4: 03pm [facility] Medical Records Department [address] [place] [address] Emergency Department Summary 10/23/24 MR#: [id number] Acct: [id number] Name: HARMAN JAMIL Rep #:[id number] : 1980 44 From: Caleb Smith DO PCP: Dr. Josafat Tinoco DO Status:REG ER Location: ED ADDENDUM by Dr. Caleb Smith DO on 10/23/24 at 1603 Patient's EKG reviewed and showed sinus rhythm with a rate of 70 bpm. QTc was noted to be 437 with a normal NE interval 144. 10/23/24 1603<Electronically signed by Caleb Smith DO> Cosigner Signature (if applicable): cc: Dr. Josafat Tinoco DO ~* Signed HPI History of Present Illness Chief Complaint: Unresponsive Narrative Narrative: Patient is a 44-year-old male with past medical history of ADHD, cervical radiculopathy status post surgery in February, who presents to the emergency department with a chief complaint of unresponsiveness. Per security he was found unresponsive outside therefore they brought him in here to be evaluated. [facility] Medical History ADHD Sciatica Cervical radiculopathy Home [...] states that earlier today he went to [facility] for a psych eval and he states that this appointment went well. He states that he stopped at a friend's house and then was on his way to see his mother and he notes that he ended up here and is not sure what happened. He denies any history of drug abuse. Patient's rfnah-kr-kwol glucose was noted to be 105. Patient [...] DO [Primary Care Provider] - Print Language: Hong Konger Disposition Disposition: Against Medical Advice What to do if you have Problems For any increased pain, shortness of breath, bleeding, nausea or vomiting, chestpain, or any unexpected problems, contact your Primary Care Provider. Call [facility] ([phone]) or report to the closest Emergency Room. Call 911 if necessary. 10/23/24 1602 <Electronically signed by Caleb Smith DO> Cosigner Signature (if applicable): CC: Dr. Josafat Tinoco DO ~ Signed [facility] Work Phone: 1([phone]) 876-346007-21-2025 History of Present illness Narrative* Apoorva Griffin MD - 10/02/2024 11:30 AM EDT [...] and L5-S1, with vacuum phenomenon. There is tshm-rv-inhkvlrp bilateral neural foraminal stenosis at these levels. [...] 5/5 finger flexors, 5-/5 interossei, and 5/5 washing machine installer LE strength - 4/5 on the left [...] 6. Ergonomics: -Left ankle foot orthotic from [employer] 7. Return to clinic for follow-up with [...] referring provider, Dr. Dixon documented in this [facility] Work Phone: 1(677) 691-361407-21-2025 Instructions* Patient Instructions* Apoorva Griffin MD - 10/02/2024 11:30 AM EDT [...] provided -Get a left ankle-foot orthotic from [employer] -Lumbar MRI ordered -Do your Best to completely stop smoking cigarettes -Follow-up after MRI documented in this [facility] Work Phone: 1([phone]) 425-351205-12-2025 History and physical note* Suraj Meyers MD [...] examinationpreserved. NEURO: Alert and oriented X 3 MARINE ERECTOR normal as tested without focal neurological deficit [...] 06/06/2024 11:08 am INDICATION: Signs/Symptoms:Pain. ACCESSION NUMBER(S): [id number] ORDERING CLINICIAN: SHA FOSTER FINDINGS: AP lateral [...] Sha Foster 06/06/2024 3:56 PM Dictation workstation: [id number] CT lumbar spine wo IV contrast Result [...] and L5-S1, with vacuum phenomenon. There is aixs-cf-seqxbkjs bilateral neural foraminal stenosis at these levels. [...] 10:52 am INDICATION: Signs/Symptoms:neck pain. ACCESSION NUMBER(S): [id number] ORDERING CLINICIAN: SHA FOSTERFINDINGS: AP lateral x-rays [...] Sha Foster 03/07/2024 11:17 AM Dictation workstation: [id number] MR cervical spine wo IV contrast Result Date: 02/18/2024 Interpreted By: Luana Lawson and Lawrence Austen STUDY: MR CERVICAL SPINE WO IV CONTRAST; MR LUMBAR SPINE W AND WO IV CONTRAST; MR THORACIC SPINE WO IV CONTRAST; 02/17/2024 7:08 pm; 02/17/2024 7:09 pm INDICATION: Signs/Symptoms:pain. ,M54.10 Radiculopathy, site unspecified COMPARISON: Soymcjwbgm58/07/2018, MRI 08/17/2016. ACCESSION NUMBER(S): [id number]; [id number]; [id number] ORDERING CLINICIAN: SHA FOSTER TECHNIQUE: Sagittal T1, [...] Luana Lawson 02/18/2024 11:18 AM Dictation workstation: [id number] MR thoracic spine wo IV contrast Result Date: 02/18/2024 Interpreted By: Luana Lawson and Lawrence Austen STUDY: MR CERVICAL SPINE WO IV CONTRAST; MR LUMBAR SPINE W AND WO IV CONTRAST; MR THORACIC SPINE WO IV CONTRAST; 02/17/2024 7:08 pm; 02/17/2024 7:09 pm INDICATION: Signs/Symptoms:pain. ,M54.10 Radiculopathy, site unspecified COMPARISON: Bziqppyrvo79/07/2018, MRI 08/17/2016. ACCESSION NUMBER(S): [id number]; [id number]; [id number] ORDERING CLINICIAN: SHA FOSTER TECHNIQUE: Sagittal T1, [...] Luana Lawson 02/18/2024 11:18 AM Dictation workstation: [id number] MR lumbar spine w and wo IV contrast Result Date: 02/18/2024 Interpreted By: Luana Lawson and Antonio Forrester STUDY: MR CERVICAL SPINE WO IV CONTRAST; MR LUMBAR SPINE W AND WO IV CONTRAST; MR THORACIC SPINE WO IV CONTRAST; 02/17/2024 7:08 pm; 02/17/2024 7:09 pm INDICATION: Signs/Symptoms:pain. ,M54.10 Radiculopathy, site unspecified COMPARISON: Trlnxxuhng51/07/2018, MRI 08/17/2016. ACCESSION NUMBER(S): [id number]; [id number]; [id number] ORDERING CLINICIAN: SHA FOSTER TECHNIQUE: Sagittal T1, [...] Luana Lawson 02/18/2024 11:18 AM Dictation workstation: [id number] XR lumbar spine 2-3 views Result Date: [...] visit with any questions or concerns at [phone] M-F 8-4 pm Suraj Meyers M.D. [employer] , Division of Pain Medicine [facility] Concrete Batching Plant Operator of Anesthesiology and Pain Medicine [facility] [place] [address] Office: [phone] Suraj Meyers MD [1] Past Medical History: Diagnosis Date Contusion of chest wall 06/28/2024 Disease due to severe acute respiratory syndrome coronavirus 2 (SARS-CoV-2) 06/28/2024 Fall 06/28/2024 Fever 06/28/2024 Marijuana use 09/04/2014 Per tox screen 08/2014: Patient informed he will receive no further controlled medication scripts from physicians at [facility]. Also violation of signed controlled substance [...] history on file. [4] No Known Allergies T [facility] Work Phone: 1(912) 819-896205-12-2025 History and physical note* Suraj Meyers MD [...] examinationpreserved. NEURO: Alert and oriented X 3 MARINE ERECTOR normal as tested without focal neurological deficit [...] 06/06/2024 11:08 am INDICATION: Signs/Symptoms:Pain. ACCESSION NUMBER(S): [id number] ORDERING CLINICIAN: SHA FOSTER FINDINGS: AP lateral [...] Sha Foster 06/06/2024 3:56 PM Dictation workstation: [id number] CT lumbar spine wo IV contrast Result [...] and L5-S1, with vacuum phenomenon. There is psjy-am-ysqszgog bilateral neural foraminal stenosis at these levels. [...] 10:52 am INDICATION: Signs/Symptoms:neck pain. ACCESSION NUMBER(S): [id number] ORDERING CLINICIAN: SHA FOSTERFINDINGS: AP lateral x-rays [...] Sha Foster 03/07/2024 11:17 AM Dictation workstation: [id number] MR cervical spine wo IV contrast Result Date: 02/18/2024 Interpreted By: Luana Lawson and Lawrence Austen STUDY: MR CERVICAL SPINE WO IV CONTRAST; MR LUMBAR SPINE W AND WO IV CONTRAST; MR THORACIC SPINE WO IV CONTRAST; 02/17/2024 7:08 pm; 02/17/2024 7:09 pm INDICATION: Signs/Symptoms:pain. ,M54.10 Radiculopathy, site unspecified COMPARISON: Ujiqwrlcgm97/07/2018, MRI 08/17/2016. ACCESSION NUMBER(S): [id number]; [id number]; [id number] ORDERING CLINICIAN: SHA FOSTER TECHNIQUE: Sagittal T1, [...] Luana Lawson 02/18/2024 11:18 AM Dictation workstation: [id number] MR thoracic spine wo IV contrast Result Date: 02/18/2024 Interpreted By: Luana Lawson and Lawrence Austen STUDY: MR CERVICAL SPINE WO IV CONTRAST; MR LUMBAR SPINE W AND WO IV CONTRAST; MR THORACIC SPINE WO IV CONTRAST; 02/17/2024 7:08 pm; 02/17/2024 7:09 pm INDICATION: Signs/Symptoms:pain. ,M54.10 Radiculopathy, site unspecified COMPARISON: Vsqypwhpph84/07/2018, MRI 08/17/2016. ACCESSION NUMBER(S): [id number]; [id number]; [id number] ORDERING CLINICIAN: SHA FOSTER TECHNIQUE: Sagittal T1, [...] Luana Lawson 02/18/2024 11:18 AM Dictation workstation: [id number] MR lumbar spine w and wo IV contrast Result Date: 02/18/2024 Interpreted By: Luana Lawson, and Antonio Forrester STUDY: MR CERVICAL SPINE WO IV CONTRAST; MR LUMBAR SPINE W AND WO IV CONTRAST; MR THORACIC SPINE WO IV CONTRAST; 02/17/2024 7:08 pm; 02/17/2024 7:09 pm INDICATION: Signs/Symptoms:pain. ,M54.10 Radiculopathy, site unspecified COMPARISON: Eaksujbiwf05/07/2018, MRI 08/17/2016. ACCESSION NUMBER(S): [id number]; [id number]; [id number] ORDERING CLINICIAN: SHA FOSTER TECHNIQUE: Sagittal T1, [...] Luana Lawson 02/18/2024 11:18 AM Dictation workstation: [id number] XR lumbar spine 2-3 views Result Date: [...] visit with any questions or concerns at [phone] M-F 8-4 pm Suraj Meyers M.D. [employer] Finisher , Division of Pain Medicine [facility] Concrete Batching Plant Operator of Anesthesiology and Pain Medicine [employer] [facility] [employer] [facility] [address] [facility] [address] [place] [address] Office: [phone] Suraj Meyers MD [1] Past Medical History: Diagnosis Date Contusion of chest wall 06/28/2024 Disease due to severe acute respiratory syndrome coronavirus 2 (SARS-CoV-2) 06/28/2024 Fall 06/28/2024 Fever 06/28/2024 Marijuana use 09/04/2014 Per tox screen 08/2014: Patient informed he will receive no further controlled medication scripts from physicians at [facility]. Also violation of signed controlled substance [...] [4] No Known Allergies documented in this [facility] Work Phone: 1([phone]) 416-334705-12-2025 History of Present illness Narrative* Deandra May [...] Objective Physical Exam Assessment/Plan documented in this [facility] Work Phone: 1(644) 352-882205-07-2025 History of Present illness Narrative* Radha Sandra Britanydeedee, - 07/19/2024 10:50 AM EDT Subjective Harman Jamil is a right handed 43 y.o. year old male who presents with Back Pain (NPV, d- Dr. Foster/sciatica), Neck Pain (NPV, nicolad- Dr. Foster), Extremity Weakness (NPV, ty- Dr. Fosetr), and Numbness (NPV, ty- Dr. Foster/From torso [...] There is no tremor. On coordination testing, mhtrkc-fyit-emcdvu testing are done well bilaterally. Sensory examination reveals intact vibratory sense at the ankle. Gait is spastic with wide based and foot flapping. Assessment/Plan Mr. aJmil is a 43 year old man presenting [...] further controlled medication scripts from physicians at [facility]. Also violation of signed controlled substance [...] Date TONSILLECTOMY 09/06/2015 Tonsillectomy documented in this [facility] Work Phone: 1([phone] 140-275905-07-2025 Instructions* Patient Instructions* Radha Dixon DO - [...] while taking this medication. [facility] Phone: 1(273) 698-787905-02-2025 Hospital Discharge instructions* Discharge Instr - DONNIE* [...] Contact Information Primary Emergency Contact: Sis Delgadillo [facility] Relation: Other Past Surgical History: Past Surgical [...] MENTAL STATUS:} IV Access: { DONNIE IV ACCESS:640427763} Nursing Mobility/ADLs: Walking {CHP DME ADLs:443314113} Transfer {CHP DME ADLs:055846158} Bathing {CHP DME ADLs:076988816} Dressing {CHP DME ADLs:518745340} Toileting {CHP DME ADLs:835960887} Feeding {CHP DME ADLs:722307845} Professional Skateboarder {CHP DME ADLs:705316316} Med Delivery { DONNIE MED Delivery:199834133} Wound Care Documentation and Therapy: Elimination: Continence: Bowel: {YES / NO:} Bladder: {YES / NO:} Urinary Catheter: {Urinary Catheter:092948113} Colostomy/Ileostomy/Ileal Conduit: {YES / NO:} Date of Last BM: No intake or output data in the 24 hours ending 07/14/24 0020 No intake/output data recorded. Safety Concerns: { DONNIE Safety Concerns:347127527} Impairments/Disabilities: { DONNIE Impairments/Disabilities:754243637} Nutrition Therapy: Current Nutrition Therapy: { DONNIE Diet List:576622880} Routes of Feeding: {[facility] DME Other Feedings:577756252} Liquids: {[facility] liquid thickness:64335} Daily Fluid Restriction: {CHP DME Yes amt example:139479704} Last Modified Barium Swallow with Video (Video Swallowing Test): {Done Not Done Date:} Treatments at the Time of Hospital Discharge: Respiratory Treatments: Oxygen Therapy: {Therapy; copd oxygen:35424} Ventilator: { CC Vent List:675014156} Rehab Therapies: {THERAPEUTIC INTERVENTION:5577542141} Weight Bearing Status/Restrictions: {[facility] Weight Bearin} Other Medical Equipment (for information only, NOT a DME order): {EQUIPMENT:157051013} Other Treatments: Patient's personal belongings (please select all that are sent with patient): {P DME Belongings:091684274} RN SIGNATURE: {Esignature:595922959} CASE MANAGEMENT/SOCIAL WORK SECTION Inpatient Status Date: Readmission Risk Assessment Score: [facility] RISK OF UNPLANNED READMISSION 2.0 0 Total Score Discharging to Facility/ Agency Name: Address: Phone: Fax: Dialysis Facility (if applicable) Name: Address: Dialysis Schedule: Phone: Fax: Compatibility Test Engineer/User Experience Developer signature: {Esignature:758142149} PHYSICIAN SECTION Prognosis: {Prognosis:9355757040} Condition at Discharge: { Patient Condition:480588681} Rehab Potential (if transferring to Rehab): {Prognosis:1573096747} Recommended Labs or Other Treatments After Discharge: Physician Certification: I certify the above information and transfer of Harman Jamil is necessary for the continuing treatment of the diagnosis listed and that he requires {Admit to Appropriate Level of Care:26907} for {GREATER/LESS:162877061} 30 days. Update Admission H&P: {CHP DME Changes in HandP:080637987} PHYSICIAN SIGNATURE: {Esignature:175674451} * Attachments The following attachments cannot be sent through Care Everywhere. * Back: Strain (H[place]er) [facility] in [facility] History of Present illness Narrative* Josafat Tinoco, [...] symptoms are better managed. [facility] Work Phone: 1([phone]) 860-316704-03-2025 Hospital Discharge instructions* Discharge Instructions* Lisa Polanco [...] be sent through Care Everywhere. * Sciatica (H[place] Konger) * Back Pain ([place]er) documented in this encounterBon [facility] History of Present illness Narrative* Sha Foster [...] [facility] For complete plan and/or surgical details, please refer to Dr. Foster's portion of this split dictation. -Dev Martel PA-C In a qxyn-lh-ikpk encounter, I performed a history and physical [...] Foster MD Orthopedic surgery [facility] Work Phone: 1([phone]) 349-755803-07-2025 Hospital Discharge instructions* Discharge Instructions* Nayan Hale PA-C - 05/19/2024 3:44 AM EST Follow closely with your primary spinal surgeon for recheck. Return sooner for new or worsening symptoms. You can attempt to clam picker a walker with the provided prescription at a local DME store * Attachments The following attachments cannot be sent through Care Everywhere. * Back Pain (H[place] Konger) * Fall Prevention (H[place]er) documented in this encounterBon [facility] History of Present illness Narrative* Dev Martel [...] 2+ and symmetric bilaterally. Garner positive bilaterally. Cement Sprayer Helper strength symmetric and strong. Cervical incision is [...] split dictation. -Dev Martel PA-C In a kyrm-bc-exmj encounter, I performed a history and physical [...] Foster MD Orthopedic surgery documented in this [facility] Work Phone: 1(673) 841-920112-14-2024 Plan of care note* Care Plan - [...] goals for the shift [facility] Pain management [facility]14-2024 Miscellaneous Notes* Care Plan - Felipe [...] Foster M.D. Asst.: None Dev LeosThe physician assistant strength coach was present through the entire case. Given thenature of the disease process and the procedure to be performed a skilled surgical consultant was necessary during the case. The assistant strength coach was necessary in order to hold retractors and directly assistin the operation. A certified coatings inspector was at the back table managing instruments [...] anterior two thirds of the disc. A Malcolm pinretractor was then placed to provide distraction [...] these barriers include none. [facility] Work Phone: [phone]) 840-302612-14-2024 Plan of care note* Care Plan - [...] goals for the shift include Pain management [facility] Work Phone: 1(981) 351-887912-14-2024 Hospital course Narrative* FREDO Ling - 02/26/2024 [...] 2024 in wound clinic documented in this [facility] Work Phone: 1([phone]) 912-531512-14-2024 History of Present illness Narrative* FREDO Ling [...] / Treatment Patient Name: Harman Jamil Department: [facility] Room: [address] [place] [address] Today's Date: 02/25/2024 Time Calculation Start Time: [...] Comments: BUE AROM WFL; strength >3/5; functional washing machine installer 4/5. Perception: Inattention/Neglect: Appears intact Coordination: Movements are Fluid and Coordinated: Yes Hand Function: Gross Grasp: Functional Coordination: Functional Outcome Measures:[facility] Daily Activity Putting on and taking off [...] decompression and fusion - direct admission from [facility] - Progressive neurovascular changes noted per [...] note, this documentation is completed using the [employer] Dictation system (voice recognition software). There may [...] LLE : Within Functional Limits Outcome Measures: [facility] Basic Mobility Turning from your back to [...] Foster. Pt has cervical brace on. Per [facility] anticipate Wednesday DC on Oral Bactrim x 10 days, follow up with Dr. Nichols on Wednesday. Pt had bedside I & D for 3 left axillary abscesses which is currently packed, ordereddaily wound dressings. Pt refuses HHC, states can not have HHC at his nieces in [place] home, and plans to go to his moms in [place] for only a couple days and come back to [place]. Pt declines any needs. [facility] notified and will cancel home care orders. [facility] has made pt appt with Dr. Nichols Wednesday morning at 9:30 so pt can call [facility] today to set up transportation for Wednesday appt. No further DC needs identified at present time. * Wolfgang Childers APRN-MINA - 02/25/2024 10:30 AM EST Plan for oral bactrim BID for 10 days per ID. Patient can discharge tomorrow from their standpoint as long as his blood counts are stable. Dr. Emre onboard with discharge and would like to [...] required documents and is reaching out to [facility] [employer] for transportation. * Sowmya Hernandez PharmD - [...] Ling 02/25/2024 7:41 AM * Lennie Mooney [facility] - 02/25/2024 6:29 AM EST Vancomycin Dosing [...] on 02/26/2024 Exposure target: AUC24 (range)400-600 mg/L.hr EJJ87-40: 381 mg/L.hr AUC24,ss: 409 mg/L.hr Probability of [...] palpation Skin: no rashes, no diaphoresis Neuro: MARINE ERECTOR intact Affect appropriate and patient is interactive [...] and Zosyn, Cultures pending, anticipating PICC and intermission coordinator antibiotics. Pt states currently living in basement of niece's home in [facility] in, has had recent problems with legs [...] Continue current dressing changes * Jewels Nolan, HOME PERFORMANCE LABORER-[facility] - 02/23/2024 2:02 PM EST Harman Jamil [...] major adverse cardiovascular events including cardiac arrest, WI, arrhythmias, and/or even . Patient appears medically [...] to Left armpit. COMPARISON: None. ACCESSION NUMBER(S): [id number] ORDERING CLINICIAN: HALEY YATES TECHNIQUE: Contiguous axial [...] Phillip Mojica 02/22/2024 11:09 PM Dictation workstation: [id number] Physical Exam Constitutional: Well developed, awake/alert/oriented x3, [...] decompression and fusion - direct admission from [facility] in [place] - Progressive neurovascular changes noted per primary [...] to follow up with pulmonology outpatient - JOANNAO and MAO started for now - pending [...] note, this documentation is completed using the [employer] Dictation system (voice recognition software). There may be spelling and/or grammatical errors that were not corrected prior to final submission. FREDO Hairston * Adore Garg RN - 02/23/2024 10:39 AM EST 02/23/24 1037 Discharge Planning Living Arrangements Family members ([facility]) Support Systems Family members Assistance Needed none, CHILDREN'S MINISTER pt states mostly ind ADLS, family assistance with IADLS, pt doesn't drive or work, 1 recent fall Type of Residence Private residence (living in basement at niece's home in [place], [place]) Number of Stairs to Enter Residence [...] were you homeless or living in a snf (including now)? N Transportation Needs In the [...] Zosyn, Cultures pending, anticipating P ICC and nursing home antibiotics. Pt states currently living in basement of niece's home in [place], has had recent problems with legs and [...] on 02/23/2024 Exposure target: AUC24 (range)400-600 mg/L.hr LKU17-04: 448 mg/L.hr AUC24,ss: 487 mg/L.hr Probability of [...] toxicity. Korina Lopez PharmD [facility] [phone] Plan of care note* Care Plan - [...] Rafa Kwan RN Flowsheets (Taken 02/25/2024 2207) Care Plan - Patient's Chronic Conditions and [...] level of nervousness and agitation this morning. [facility]12-13-2024 Plan of care note* Care Plan - [...] goals for the shift include Pain management [facility] Work Phone: [phone] 979-846012-12-2024 Plan of care note* Care Plan - Haley Laboy RN - 02/24/2024 11:05 PM EST The patient's goals for the shift include rest and comfort The clinical goals for the shift include pain management Over the shift, the patient did make progress toward the following goals. Barriers to progression include none. Recommendations to address these barriers include none. [facility] Work Phone: [phone] Note* Op Note - Sha Foster MD [...] Foster M.D. Asst.: None Dev LeosThe physician assistant strength coach was present through the entire case. Given thenature of the disease process and the procedure to be performed a skilled surgical consultant was necessary during the case. The assistant strength coach was necessary in order to hold retractors and directly assistin the operation. A certified coatings inspector was at the back table managing instruments [...] anterior two thirds of the disc. A Malcolm pinretractor was then placed to provide distraction [...] please do not hesitate to contact me. [facility] Work Phone: [phone] 813-873612-12-2024 Plan of care note* Care Plan - Haley Laboy RN - 02/24/2024 1:52 AM EST The patient's goals for the shift include rest and comfort The clinical goals for the shift include pain management Over the shift, the patient did make progress toward the following goals. Barriers to progression include none. Recommendations to address these barriers include none. [facility] Work Phone: [phone] 507-426712-11-2024 History and physical note* Sha Foster MD [...] this with one of my colleagues in [place] and we both agree that the neurologic [...] please do not hesitate to contact me. [facility] Work Phone: [phone] History and physical note* Sha Foster MD [...] this with one of my colleagues in [place] and we both agree that the neurologic [...] hesitate to contact me. documented in this [facility] Work Phone: [phone] Plan of care note* Care Plan - [...] goals for the shift include Pain management [facility] Work Phone: [phone] Hospital Discharge instructions* Discharge Instructions* Jewels Nolan APRN-MINA - 02/23/2024 8:41 AM EST ##### Please follow up with your PCP regarding these nodules############ Follow up in 1 week. May need to follow up with holter technician as well. Will send you information infollow [...] sent through Care Everywhere. * Hidradenitis suppurativa (Hong Konger) documented in this [facility] Work Phone: [phone] Consult note* Jeff Nichols MD - 02/23/2024 [...] MD *These notes are being done using [employer] voice recognition technology and may include unintended errors with respect to translation of words, typographical errors or grammar errors which may not havebeen identified prior to finalization of the chart note. [facility] Work Phone: [phone] Consult note* Jeff Nichols MD - 02/23/2024 [...] MD *These notes are being done using [employer] voice recognition technology and may include unintended [...] hours. This dosing regimen is predicted by [employer] to result in the following pharmacokinetic parameters: Regimen: 1250 mg IV every 12 hours. Start time: 00:29 on 02/23/2024 Exposure target: AUC24 (range)400-600 mg/L.hr ONE44-53: 471 mg/L.hr AUC24,ss: 581 mg/L.hr Probability of [...] palpation Skin: no rashes, no diaphoresis Neuro: MARINE ERECTOR intact Affect appropriate and patient is interactive [...] therace variable for the IDMS-Traceable creatinine methods. https://jasn.asnjournals.org/content/early//ASN.3028292342 Calcium 02/22/2024 9.2 8.6 - 10.3 mg/dL [...] and tingling to BLE, palpable pulses, equal washing machine installer strengths of upper extremities. Last Recorded Vitals BP 147/89 (Patient Position: Sitting) Pulse 98 Temp 35.6 C (96.1 F) Resp 18 SpO2 93% Relevant Results CT w contrast ordered - results pending BC x2 Wound/tissue culture ordered ID consulted Plastic Surgery consulted Remaining lab work is unremarkable Assessment/Plan C5-6 and C6-7 anterior cervical decompression and fusion - direct admission from [facility] in [place] - Progressive neurovascular changes noted per primary [...] declined Haley Yates APRN-MINA documented in [facility]St[facility] Work Phone: [phone] Plan of care note* Care Plan - Haley Laboy RN - 02/23/2024 2:39 AM EST The patient's goals for the shift include rest and comfort The clinical goals for the shift include pain management Over the shift, the patient did make progress toward the following goals. Barriers to progression include none. Recommendations to address these barriers include none. [facility] Work Phone: [phone] Plan of care note* Care Plan - Haley Laboy RN - 02/23/2024 1:58 AM EST The patient's goals for the shift include rest and comfort The clinical goals for the shift include pain management Over the shift, the patient did make progress toward the following goals. Barriers to progression include none. Recommendations to address these barriers include none. [facility] Work Phone: [phone] Consult note* Param Cifuentes PharmD - 02/23/2024 [...] on 02/23/2024 Exposure target: AUC24 (range)400-600 mg/L.hr RXV23-97: 471 mg/L.hr AUC24,ss: 581 mg/L.hr Probability of [...] clinical response, and signs/symptoms of toxicity. 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 https://jasn.asnjournals.org/content//ASN.2260319908 Calcium 02/22/2024 9.2 8.6 - 10.3 mg/dL [...] visit with the patient > [address] 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 Last Recorded Vitals BP 147/89 (Patient Position: Sitting) Pulse 98 Temp 35.6 C (96.1 F) Resp 18 SpO2 93% Relevant Results CT w contrast ordered - results pending BC x2 Wound/tissue culture ordered ID consulted Plastic Surgery consulted Remaining lab work is unremarkable Assessment/Plan C5-6 and C6-7 anterior cervical decompression and fusion - direct admission from [facility] in [place] - Progressive neurovascular changes noted per primary [...] offered replacement - declined Haley Yates APRN-MINA [facility] Work Phone: [phone] History of Present illness Narrative* Sha Foster [...] cervical decompression and fusion. documented in this [facility] Work Phone: [phone] History of Present illness Narrative* Sha Foster [...] he walked 5 miles the other day 2-03/16 at 1 point took a 2-hour rest [...] try to assess that. [facility] Work Phone: [phone] Hospital Discharge instructions* Discharge Instructions* Naayn Hale PA-C - 02/08/2024 11:23 PM EST Please follow closely with your primary team. Return immediately for new or worsening symptoms. * Attachments The following attachments cannot be sent through Care Everywhere. * Back Pain ([place] Konger) [facility] History of Present illness Narrative* Sha Foster [...] as if he does. documented in this [facility] Work Phone: [phone] Hospital Discharge instructions* Discharge Instructions* Zuleyka Bryant, [...] sent through Care Everywhere. * Fecal Incontinence (Hong Konger) * Low Back Pain: Exercises (Hong Konger) documented in this encounterBon [facility] History of Present illness Narrative* Sha Foster MD - 12/14/2023 11:00 AM EDT Harman Jamil is a 43 y.o. male who presents for follow-up for low back pain. HPI: 43-year-old gentleman here for follow-up low back pain. [facility]. He did not get into any [...] the lumbar spine from August 27 at [facility] was reviewed today. Assessment: 43-year-old gentleman here for [facility] follow-up low back pain and leg [...] buckle. He did have a CT at [facility] of his lumbar spine that showed that [...] split dictation. -Dev Martel PA-C In a wfdg-ip-uvdd encounter, I performed a history and physical [...] Foster MD Orthopedic surgery documented in this encounterSt[facility] Work Phone: [phone]) [phone] Hospital Discharge instructions* Discharge Instructions* Aarti Stokes APRN - CNP - 12/12/2023 7:08 PM EDT Continue follow with your orthopedic doctor on December Referral for pain management recommended for chronic back pain. * Attachments The following attachments cannot be sent through Care Everywhere. * Back Pain ([place]er) [facility] History of Present illness Narrative* Sha Foster [...] anything for this recently. He is taking kbdd-jyu-feusstg anti-inflammatories which are not helping. Plan: For complete plan and/or surgical details, please refer to Dr. Foster's portion of this split dictation. In a nksi-ot-rats encounter, I performed a history and physical [...] back after the MRI. documented in this [facility] Work Phone: [phone] Discharge summary Author Gerson Perez [facility] November 09, 2022 3:03pm Note Date/Time November 09, 2022 2: 54pm [facility] Medical Records Department [address] [place] [address] Emergency Department Summary 11/09/22 MR#: [id number] Acct: [id number] Name: HARMAN JAMIL Rep #:[id number] : 1980 42 From: Gerson Perez MD PCP: Dr. Josafat Tinoco, Status:PRE ER Location: ED HPI History of [...] that those symptoms are not there now. [facility] Medical History ADHD Cervical radiculopathy Sciatica Home [...] your Primary Care Provider. Call [facility] ([phone]) or report to the closest Emergency Room. Call 911 if necessary. 11/09/22 1503 <Electronically signed by Gerson Perez MD> Cosigner Signature (if applicable): CC: Dr. Josafat Tinoco DO ~ Signed [facility] Work Phone: Discharge summary Author Eduardo Peguero-[facility] Note Date/Time November 11, 2024 1: 58am [facility] Medical Records Department [address] [place] [address] Emergency Department Summary 11/11/24 MR#: [id number] Acct: [id number] Name: VENTURAHARMAN DALTON Rep #:[id number] : 1980 44 From: Eduardo kraft DO PCP: Dr. Josafat Tinoco DO Status:REG ER Location: ED HPI History [...] intact Psych: Cooperative, appropriate mood and affect [facility] Medical History ADHD Sciatica Cervical radiculopathy Home Medications ?Medication ?Instructions ?Recorded ?Last Taken ?Type gabapentin 300 mg capsule 600 mg PO Q8H 01/04/24 Unkno wn History baclofen 10 mg [...] (Reason: muscle spasm) Primary Care Provider: Josafat Tinoco Referrals: Josafat Tinoco DO [Primary Care Provider] - Print Language: Hong Konger What to do if you have Problems For any increased pain, shortness of breath, bleeding, nausea or vomiting, chestpain, or any unexpected problems, contact your Primary Care Provider. Call [facility] ([phone]) or report to the closest Emergency Room. Call 911 if necessary. 11/11/24 0158 <Electronically signed by Eduardo Mcdonald DO> Cosigner Signature (if applicable): CC: Dr. Josafat Tinoco DO ~ Signed [facility] Work Phone: Evaluation noteNo assessment information available [facility] Work Phone: Evaluation note* Diagnosis Lumbar pain- Primary Lumbago Lumbar radiculopathy Thoracic or lumbosacral neuritis or radiculitis, unspecified Lumbar pain Lumbago documented in this encounter [facility] Work Phone: Evaluation note* Diagnosis Lumbar pain Lumbago documented in this encounter [facility] Work Phone: Evaluation note* Diagnosis Lumbar pain- Primary Lumbago Lumbar radiculopathy Thoracic or lumbosacral neuritis or radiculitis, unspecified documented in this encounter [facility] Work Phone: Evaluation note* Diagnosis Chronic bilateral low back pain with bilateral sciatica- Primary Incontinence of feces with fecal urgency [facility] encounter [facility] Loyalzooaluation [facility]* Diagnosis Back pain with radiculopathy- Primary documented in this encounter [facility] Work Phone: [phone] note* Diagnosis Lumbosacral radiculitis- Primary Thoracic or lumbosacral neuritis or radiculitis, unspecified documented [facility] encounter [facility] [employer] NetworksEvaluation note* Diagnosis Back pain with radiculopathy documented in this encounter [facility] Work Phone: [phone] note* Diagnosis Cervical radiculopathy Brachial neuritis or radiculitis nos documented in this encounter [facility] Work Phone: [phone] note* Diagnosis Spinal stenosis, cervical region- Primary Spinal stenosis Spinal stenosis, unspecified region other than cervical Spinal stenosis, cervical region Abscess of axilla, left Spinal stenosis Spinal stenosis, unspecified region other than cervical Spinal stenosis, cervical region documented in this encounter [facility] Work Phone: [phone] note* Diagnosis Cervical radiculopathy- Primary Brachial neuritis or radiculitis nos Cervical radiculopathy Brachial neuritis or radiculitis nos documented in this encounter [facility] Work Phone: [phone] note* Diagnosis Cervical radiculopathy Brachial neuritis or radiculitis nos documented in this encounter [facility] Work Phone: [phone] note* Diagnosis Acute exacerbation of chronic low back pain- Primary documented in this encounter [facility] The Boardaluation note* Diagnosis Accidental fall, initial encounter- Primary Neck sprain, initial encounter Lumbar radiculopathy, acute Thoracic or lumbosacral neuritis or radiculitis, unspecified Leg weakness, bilateral Other musculoskeletal symptoms referable to limbs documented [facility] this encounter [facility]* Diagnosis Cervical radiculopathy- Primary Brachial neuritis or radiculitis nos documented in this encounter [facility] Work Phone: [phone] note* Diagnosis Cervical radiculopathy Brachial neuritis or radiculitis nos documented in this encounter [facility] Work Phone: [phone] note* Diagnosis Sciatica of left side- Primary Sciatica documented in this encounter [facility] [place] note* Diagnosis Preventative health care- Primary Routine general medical examination at a health care facility Other chronic pain Vitamin D deficiency Attention deficit hyperactivity disorder (ADHD), unspecified ADHD type Hyperlipidemia, unspecified hyperlipidemia type Bipolar affective disorder, remission status unspecified (Multi) Hyperverbal speech documented in this encounter [facility] Work Phone: [phone] note* Diagnosis Acute exacerbation of chronic low back pain- Primary documented in this encounter [facility] [employer] note* Diagnosis Cervical myelopathy- Primary Cervical spondylosis with myelopathy Back pain with radiculopathy documented in this encounter [facility] Work Phone: [phone] note* Diagnosis Back pain with radiculopathy documented in this encounter [facility] Work Phone: [phone] note* Diagnosis Herniated nucleus pulposus, L4-5- Primary [...] ankle and foot documented in this encounter [facility] Work Phone: [phone] note* Diagnosis Herniated nucleus pulposus, L4-5 Displacement of lumbar intervertebral disc without myelopathy Pain of left lower extremity Weakness of left foot Neurogenic bowel Left foot drop Other acquired deformity of ankle and foot documented in this encounter [facility] Work Phone: [phone] note* Diagnosis Herniated nucleus pulposus, L4-5- Primary [...] spondylosis with myelopathy documented in this encounter [facility] Work Phone: Evaluation note* Diagnosis Myelopathy (Multi) Unspecified disease of spinal cord documented in this encounter [facility] Work Phone: Evaluation note* Diagnosis Low back pain with left-sided sciatica, unspecified back pain laterality, unspecified chronicity- Primary documented in this encounter [facility] Work Phone: Evaluation note* Diagnosis Myelopathy (Multi) Unspecified disease of spinal cord documented in this encounter [facility] Work Phone: Evaluation note* Diagnosis Lumbar radiculopathy- Primary Thoracic or lumbosacral neuritis or radiculitis, unspecified documented in this encounter [facility] Work Phone: Evaluation note* Diagnosis Spinal stenosis, lumbosacral region- Primary Herniated nucleus pulposus, L4-5- Primary Displacement of [...] Other acquired deformity of ankle and foot Pre-op testing- Primary Unspecified pre-operative examination Spinal stenosis, lumbosacral region- Primary Spinal stenosis, lumbosacral region documented in this encounter [facility] Work Phone: [facility] Work Phone: Hospital Discharge instructionsWOhio[facility] Work Phone: Hospital Discharge instructions Additional Instructions Follow-up with your primary care provider. Return if feeling worse.[facility] Work Phone: Hospital Discharge instructions Additional Instructions Please be sure to keep your follow-up appointment with your surgeon on 21 [address] Work Phone: Hospital Discharge instructionsAdditional Instructions Follow-up with your primary care physician as well as your orthopedic physician. Continue your home medications. You received Toradol here in the emergency department, no ibuprofen for 8 hours. Return back to the ED if symptoms change or worsen.[facility] Work Phone: Hospital Discharge instructions* Attachments The following attachments cannot be sent through Care Everywhere. * Low back pain ED discharge instructions (H[place] Konger) documented in this encounterSt[facility] Work Phone: Hospital Discharge instructionsAdditional Instructions The spots on your genitalia are most consistent with moles (medical term is nevus). I do recommend follow-up with dermatology of abundance of caution. Will contact you with your gonorrhea and Chlamydia results.[facility] Work Phone: Reason for referral (narrative)No reason for referral information availableWooTwin City Hospital Work Phone: Reason for visit Narrative* Imaging (Emergency) - Authorized Specialty Diagnoses / Procedures Referred By Contac t Referred To Contact Radiology Diagnoses Back pain with radiculopathy Procedures MR thoracic spine wo IV contrast Sha Foster MD [address] [facility], [address] [place] [address] Phone: tel: fax: Referral ID Status Reason Start Date Expiration Date Visits Requested Visits Authorized [id number] Authorized Perform Procedure 4 02/07/[address] [facility] Work Phone: Reason for visit Narrative* Imaging (Emergency) - Authorized Specialty Diagnoses / Procedures Referred By Contac t Referred To Contact Radiology Diagnoses Back pain with radiculopathy Procedures MR lumbar spine w and wo IV contrast MR lumbar spine w IV contrast Sha Foster MD [address] [facility], [address] [place] [address] Phone: tel: fax: Referral ID Status Reason Start Date Expiration Date Visits Requested Visits Authorized [id number] Authorized Perform Procedure 4 02/07/[address] [facility] Work Phone: reason for visit Narrative* Imaging (Emergency) - Authorized Specialty Diagnoses / Procedures Referred By Contac t Referred To Contact Radiology Diagnoses Back pain with radiculopathy Procedures MR cervical spine wo IV contrast Sha Foster MD [address] [facility], [address] [place] [address] Phone: tel: fax: Referral ID Status Reason Start Date Expiration Date Visits Requested Visits Authorized [id number] Authorized Perform Procedure 4 02/07/[address] [facility] Work Phone: reason for visit Narrative* Auth/Cert Specialty Diagnoses / Procedures Referred By Julio Cesar t Referred To Contact Diagnoses SPINAL STENOSIS Procedures N/A Sha Foster MD [address] [facility], [address] [place] [address] Phone: tel: fax: [facility] [address] [place] [address] Referral ID Status Reason Start Date Expiration Date Visits Re quested Visits Authorized [id number] [address] [facility] Work Phone: reason for visit Narrative* Imaging (Routine) - Authorized Specialty Diagnoses / Procedures Referred By Contac t Referred To Contact Radiology Diagnoses Cervical radiculopathy Procedures XR cervical spine 2-3 views Sha Foster MD [address] [facility], [address] [place] [address] Phone: tel: fax: Referral ID Status Reason Start Date Expiration Date Visits Requested Visits Authorized [id number] Authorized Perform Procedure 4 03/07/[address] [facility] Work Phone: reason for visit Narrative* Imaging (Routine) - Authorized Specialty Diagnoses / Procedures Referred By Contac t Referred To Contact Radiology Diagnoses Cervical radiculopathy Procedures XR cervical spine 2-3 views Sha Foster MD [address] [facility], [address] [place] [address] Phone: tel: fax: Referral ID Status Reason Start Date Expiration Date Visits Requested Visits Authorized [id number] Authorized Perform Procedure 06/06/2024 06/06/[address] [facility] Work Phone: Reason for visit Narrative* Imaging (Routine) - Authorized Specialty Diagnoses / Procedures Referred By Contac t Referred To Contact Radiology Diagnoses Herniated nucleus pulposus, L4-5 Pain of left lower extremity Weakness of left foot Neurogenic bowel Left foot drop Procedures MR lumbar spine wo IV contrast MR lumbar spine wo IV contrast pAoorva Griffin MD [address] [place] [address] [address] [place] [address] Phone: tel: fax: Referral ID Status Reason Start Date Expiration Date Visits Requested Visits Authorized [id number] Authorized Perform Procedure 10/02/2024 10/02/[address] [facility] Work Phone: Reason for visit Narrative* Imaging (Routine) - Authorized Specialty Diagnoses / Procedures Referred By Contac t Referred To Contact Radiology Diagnoses Myelopathy (Multi) Procedures MR cervical spine wo IV contrast Sha Foster MD [address] [facility], [address] [place] [address] Phone: tel: fax: Referral ID Status Reason Start Date Expiration Date Visits Requested Visits Authorized [id number] Authorized Perform Procedure 11/10/2024 12/11/[address] [facility] Work Phone: reason for visit Narrative* Imaging (Routine) - Authorized Specialty Diagnoses / Procedures Referred By Contac t Referred To Contact Radiology Diagnoses Myelopathy (Multi) Procedures MR thoracic spine wo IV contrast Sha Foster MD [address] [facility], [address] [place] [address] Phone: tel: fax: Referral ID Status Reason Start Date Expiration Date Visits Requested Visits Authorized [id number] Authorized Perform Procedure 11/10/2024 12/11/[address] [facility] Work Phone: Summary Purpose Family History [...] No June 15, 2021 8:39pm Power of Dye Beck Reel Operator No June 15 8:39pm Advance Directive Response Recorded Date/ Time Living Will No August 19, 2021 1 :08pm Power of Dye Beck Reel Operator No August 19, 2021 1:08pm Advance Directive Response Recorded Date/ Time Living Will No August 20, 2021 4 :43pm Power of Dye Beck Reel Operator No August 20, 2021 4:43pm Advance Directive Response Recorded Date/ Time Living Will No June 16, 2022 10:19pm Power of Dye Beck Reel Operator No June 16 10:19pm Advance Directive Response Recorded Date/ Time Living Will No November 09 3:32pm Power of Dye Beck Reel Operator No November 09, 023 3:32pm Advance Directive Response Recorded Date/ Time Living Will No March 09 023 12:29pm Power of Dye Beck Reel Operator No March 09, 2023 12:29pm Advance Directive Response Recorded Date/ Time Living Will No April 10 4:40pm Power of Dye Beck Reel Operator No April 10, 2023 4:40pm Advance Directive Response Recorded Date/ Time Living Will No May 18, 2023 3:41pm Power of Dye Beck Reel Operator No May 17 3:41pm Date Activated Date Inactivated Comments 02/24/2024 5:45 PM Question Answer Comments Plan of Care: Code Status Discussion Completed Decision Maker: Patient Date Activated Date Inactivated Comments 02/24/2024 5:45 PM Question Answer Comments Plan of Care: Code Status Discussion Completed Decision Maker: Patient Healthcare Agents on File Name Relationship Healthcare Agent Relationshi p Communication Sis Delgadillo Friend Health Care Agent Healthcare Agents on File Name Relationship Healthcare Agent Relationshi p Communication Sis Rhodes Health Care Agent Healthcare Agents on File Name Relationship Healthcare Agent Relationshi p Communication Sis Rhodes Health Care Agent [phone] (Home) Healthcare Agents on File Name Relationship Healthcare Agent Relationshi p Communication Sis Rhodes Health Care Agent [phone] (Home) Advance Directive Response Recorded Date/ Time Do you have a Healthcare Power of Dye Beck Reel Operator? No October 23, 2024 3:38pm Healthcare Agents on File Name Relationship Healthcare Agent Relationshi p Communication Sis Rhodes Health Care Agent [phone] (Home) Healthcare Agents on File Name Relationship Healthcare Agent Relationshi p Communication Sis Rhodes Health Care Agent [id number] (Home) Advance Directive Response Recorded Date/ Time Do you have a Healthcare Power of Dye Beck Reel Operator? No October 23, 2024 3:38pm Do you have a Healthcare Power of Dye Beck Reel Operator? No November 10, 2024 11:56pm Healthcare Agents on File Name Relationship Healthcare Agent Relationshi p Communication Sis Rhodes Health Care Agent [phone] (Home) Healthcare Agents on File Name Relationship Healthcare Agent Relationshi p Communication Sis Rhodes Health Care Agent [id number] (Home) Advance Directive Response Recorded Date/ Time Do you have a Healthcare Power of Dye Beck Reel Operator? No October 23, 2024 3:38pm Do you have a Healthcare Power of Dye Beck Reel Operator? No December 17, 2024 10:05pm Do you have a Healthcare Power of Dye Beck Reel Operator? No November 10, 2024 11:56pm Healthcare Agents on File Name Relationship Healthcare Agent Relationshi p Communication Sis Rhodes Health Care Agent [phone] (Home) Healthcare Agents on File Name Relationship Healthcare Agent Relationshi p Communication Sis Rhodes Health Care Agent [phone] (Home) Chief Complaint and Reason for Visit Chief [...] 27pm back November 10, 2024 11 :53pm Chief Complaint Admit Date unresponsive October 23, 2024 3: 27pm back November 10, 2024 11 :53pm std concern December 17, 2024 9: 46pm Reason for Referral Specialty Diagnoses / Procedures Referred By Contac t Referred To Contact Radiology Diagnoses Lumbar pain Lumbar radiculopathy Procedures MR lumbar spine w and wo IV contrast Sha Foster MD [address] [facility], [address] [place] [address] Referral ID Status Reason Start Date Expiration Date Visits Requested Visits Authorized [id number] Pending Review Perform Procedure 05/04/2023 05/03/2024 1 1 Specialty Diagnoses / Procedures Referred By Contac t Referred To Contact Physical Therapy Diagnoses Lumbar pain Lumbar radiculopathy Sha Foster MD [address] [facility], [address] [place] [address] Referral ID Status Reason Start Date Expiration Date Visits Requested Visits Authorized [id number] Pending Review Specialty Services Required 05/04/2023 05/03/2024 1 1 Specialty Diagnoses / Procedures Referred By Contac t Referred To Contact Radiology Diagnoses Lumbar pain Procedures XR lumbar spine complete 4+ views Sha Foster MD [address] [facility], [address] [place] [address] Referral ID Status Reason Start Date Expiration Date Visits Requested Visits Authorized [id number] Authorized Perform Procedure 05/04/2023 05/03/2024 1 1 Referral ID Status Reason Start Date Expiration Date Visits Requested Visits Authorized [id number] Pending Review Perform Procedure 12/14/2023 12/13/2024 1 1 Referral ID Status Reason Start Date Expiration Date Visits Requested Visits Authorized [id number] Pending Review Specialty Services Required 12/14/2023 12/13/2024 1 1 Specialty Diagnoses / Procedures Referred By Contac t Referred To Contact Anesthesiology Diagnoses Lumbar pain Lumbar radiculopathy Sha Foster MD [address] [facility], [address] [place] [address] Arielle Reeves MD [address] [address] Referral ID Status Reason Start Date Expiration Date Visits Requested Visits Authorized [id number] Authorized Specialty Services Required 12/14/2023 12/13/2024 1 [...] DATE CREATED AUTHOR AUTHOR'S ORGANIZ ATION 03/02/2018 [facility] DATE CREATED AUTHOR AUTHOR'S ORGANIZ ATION 12/06/2022 [facility] DATE CREATED AUTHOR AUTHOR'S ORGANIZ ATION 07/19/2024 [facility] DATE CREATED AUTHOR AUTHOR'S ORGANIZ ATION 10/16/2024 [facility] DATE CREATED AUTHOR AUTHOR'S ORGANIZ ATION 11/04/2024 [facility] DATE CREATED AUTHOR AUTHOR'S ORGANIZ ATION 01/10/2025 [facility] DATE CREATED AUTHOR AUTHOR'S ORGANIZ ATION 01/11/2025 [facility] DATE CREATED AUTHOR AUTHOR'S ORGANIZ ATION 01/15/2025 [facility] DATE CREATED AUTHOR AUTHOR'S ORGANIZ ATION 01/24/2025 [facility] DATE CREATED AUTHOR AUTHOR'S ORGANIZ ATION 01/25/2025 [facility] DATE CREATED AUTHOR AUTHOR'S ORGANIZ ATION 01/26/2025 [facility] Goals (unrecognized section and content) Goals [...] Dr. Raghu Sadler DO Emergency Provider Active Carry All Driver Relationship Specialty Start Date End Date Josafat Tinoco DO [address] [facility], [address] [address] PCP - [employer] PCP 08/13/21 Josafat Tinoco DO [address] [facility], [address] [address] PCP - [facility] Medicaid PCP 06/13/22 Josafat Tinoco DO [address] [facility], [address] [address] PCP - General Family Medicine 12/27/22 Carry All Driver Relationship Specialty Start Date End Date Josafat Tinoco DO [address] [facility], [address] [address] PCP - [employer] PCP 08/13/21 Josafat Tinoco DO [address] [facility], [address] [address] PCP - [facility] Medicaid PCP 06/13/22 Josafat Tinoco DO [address] [facility], [address] [address] PCP - General Family Medicine 12/27/22 Team Status: Inactive Member Role Status Dates Dr. Josafat Tinoco DO Primary Care Provider Active Dr. Raghu Sadler , DO Attending Provider, Emergency Katia reilly Active Team Status: Inactive Member Role Status Dates Dr. Josafat Tinoco DO Primary Care Provider Active Dr. Mynor Colon , DO Emergency Provider Active Carry All Driver Relationship Specialty Start Date End Date Josafat Tinoco DO [address] [facility], [address] [address] PCP - GROUP LE[employer]ER Medicaid PCP 06/13/22 Josafat Tinoco DO [address] [facility], [address] [address] PCP - General Family Medicine 12/27/22 Dev Martel PA-C [address] [place] [address] PCP - [employer] PCP 06/14/23 Carry All Driver Relationship Specialty Start Date End Date Josafat Tinoco DO [facility] [place] [address] PCP - General 09/18/15 Carry All Driver Relationship Specialty Start Date End Date Josafat Tinoco DO [address] [facility], [address] [address] PCP - General Family Medicine 12/27/22 Dev Martel PA-C [address] [place] [address] PCP - [employer] PCP 06/14/23 Dev Martel PA-C [address] [place] [address] PCP - [facility] Medicaid PCP 12/14/23 Carry All Driver Relationship Specialty Start Date End Date Josafat Tinoco DO [address] [place] [address] PCP - General 09/18/15 Carry All Driver Relationship Specialty Start Date End Date Josafat Tinoco DO [address] [facility], [address] [address] PCP - General Family Medicine 12/27/22 Dev Martel PA-C [address] [place] [address] PCP - [employer] PCP 06/14/23 Dev Martel PA-C [address] [place] [address] PCP - [employer] LE[employer] Medicaid PCP 12/14/23 Carry All Driver Relationship Specialty Start Date End Date Degidio Josafat R, DO [address] [facility], [address] [place] [address] PCP - General Family Medicine 12/27/22 Dev Martel PA-C [address] [place] [address] PCP - [employer] PCP 06/14/23 Dev Martel PA-C [address] [place] [address] PCP - GROUP LE[employer]ER Medicaid PCP 12/14/23 Carry All Driver Relationship Specialty Start Date End Date MattidiJosafat hernandez DO [address] [facility], [facility] [address] [place] [address] PCP - General Family Medicine 12/27/22 Dev Martel PA-C [address] [place] [address] PCP - [employer] PCP 06/14/23 Dev Martel PA-C [address] [place] [address] PCP - GROUP LE[employer] Medicaid PCP 12/14/23 Carry All Driver Relationship Specialty Start Date End Date Josafat Tinoco DO [address] [facility], [facility] [address] [place] [address] PCP - General Family Medicine 12/27/22 Dev Martel PA-C [address] [place] [address] PCP - [employer] PCP 06/14/23 Dev Martel PA-C [address] [place] [address] PCP - [employer] LE[employer] Medicaid PCP 12/14/23 Carry All Driver Relationship Specialty Start Date End Date Josafat Tinoco DO [address] [facility], [address] [address] PCP - General Family Medicine 12/27/22 Dev Martel PA-C [address] [place] [address] PCP - [employer] PCP 06/14/23 Dev Martel PA-C [address] [place] [address] PCP - GROUP LE[employer]ER Medicaid PCP 12/14/23 Carry All Driver Relationship Specialty Start Date End Date MattidiJosafat hernandez DO [address] [facility], [address] [address] PCP - General Family Medicine 12/27/22 Dev Martel PA-C [address] [place] [address] PCP - [employer] PCP 06/14/23 Dev Martel PA-C [address] [place] [address] PCP - GROUP LE[employer] Medicaid PCP 12/14/23 Carry All Driver Relationship Specialty Start Date End Date MattidiJosafat hernandez DO [address] [facility], [address] [place] [address] PCP - General Family Medicine 12/27/22 Dev Martel PA-C [address] [place] [address] PCP - [employer] PCP 06/14/23 Dev Martel PA-C [address] [place] [address] PCP - [facility] Medicaid PCP 12/14/23 Carry All Driver Relationship Specialty Start Date End Date Josafat Tinoco DO [address] [place] [address] PCP - General 09/18/15 Carry All Driver Relationship Specialty Start Date End Date Josafat Tinoco DO PCP - General 09/18/15 Carry All Driver Relationship Specialty Start Date End Date Josafat Tinoco DO PCP - General 09/18/15 Carry All Driver Relationship Specialty Start Date End Date Josafat Tinoco DO [address] [facility], [facility] [address] [place] [address] PCP - General Family Medicine 12/27/22 Dev Martel PA-C [address] [place] [address] PCP - [employer] PCP 06/14/23 Dev Martel PA-C [address] [place] [address] PCP - GROUP LE[employer]ER Medicaid PCP 12/14/23 Carry All Driver Relationship Specialty Start Date End Date Josafat Tinoco DO PCP - General 09/18/15 Carry All Driver Relationship Specialty Start Date End Date Josafat Tinoco DO [address] [facility], [address] [address] PCP - General Family Medicine 12/27/22 Dev Martel PA-C [address] [place] [address] PCP - [employer] PCP 06/14/23 Dev Martel PA-C [address] [place] [address] PCP - GROUP LEADER Medicaid PCP 12/14/23 Carry All Driver Relationship Specialty Start Date End Date MattidiJosafat hernandez DO [address] [facility], [address] [address] PCP - General Family Medicine 12/27/22 Dev Martel PA-C [address] [place] [address] PCP - [employer] PCP 06/14/23 Dev Martel PA-C [address] [place] [address] PCP - GROUP LEADER Medicaid PCP 12/14/23 Carry All Driver Relationship Specialty Start Date End Date Josafat Tinoco DO [address] [facility], [address] [address] PCP - General Family Medicine 12/27/22 Dev Martel PA-C [address] [place] [address] PCP - [employer] PCP 06/14/23 Dev Martel PA-C [address] [place] [address] PCP - GROUP LE[employer] Medicaid PCP 12/14/23 Team Status: Active Member Role/Relationship Status Dates Dr. Josafat Tinoco DO Primary Care Provider Active Team Status: Inactive Member Role/Relationship Status Dates Dr. Josafat Tinoco DO Primary Care Provider Active Start: October 23, 2024 End: October 23, 2024 Dr. Caleb Smith DO Emergency Provider Active Start: October 23, 2024 End: October 23, 2024 Carry All Driver Relationship Specialty Start Date End Date Josafat Tinoco DO [address] [facility], [address] [place] [address] PCP - General Family Medicine 12/27/22 Dev Martel PA-C [address] [place] [address] PCP - [employer] PCP 06/14/23 Dev Martel PA-C [address] [place] [address] PCP - GROUP LEADER Medicaid PCP 12/14/23 Carry All Driver Relationship Specialty Start Date End Date Josafat Tinoco DO [address] [facility], [address] [place] [address] PCP - General Family Medicine 12/27/22 Dev Martel PA-C [address] [place] [address] PCP - [employer] PCP 06/14/23 Dev Martel PA-C [address] [place] [address] PCP - [facility] Medicaid PCP 12/14/23 Team Status: Inactive Member Role/Relationship Status Dates Dr. Josafat Tinoco DO Primary Care Provider Active Start: October 23, 2024 End: October 23, 2024 Dr. Caleb Smith , Attending Provider Active Start: October 23, 2024 End: October 23, 2024 Dr. Caleb Smith , Emergency Provider Active Start: October 23, 2024 End: October 23, 2024 Team Status: Inactive Member Role/Relationship Status Dates Dr. Josafat Tinoco , Primary Care Provider Active Start: November 10, 2024 End: November 11, 2024 Dr. Eduardo Mcdonald DO Emergency Provider Activ e Start: November 10, 2024 End: November 11, 2024 Carry All Driver Relationship Specialty Start Date End Date Josafat Tinoco DO [address] [facility], [facility] [address] [place] [address] PCP - General Family Medicine 12/27/22 Dev Martel PA-C [address] [place] [address] PCP - [employer] PCP 06/14/23 Dev Martel PA-C [address] [place] [address] PCP - GROUP LEADER Medicaid PCP 12/14/23 Carry All Driver Relationship Specialty Start Date End Date Josafat Tinoco DO [address] [facility], [address] [place] [address] PCP - General Family Medicine 12/27/22 Dev Martel PA-C [address], [place] [id number] PCP - [employer] PCP 06/14/23 Dev Martel PA-C [address], [place] [id number] PCP - [facility] Medicaid PCP 12/14/23 Team Status: Active Member Role/Relationship Status Dates Dr. Josafat Tinoco DO Primary care physician Active Team Status: Inactive Member Role/Relationship Status Dates Dr. Josafat Tinoco DO Primary care physician Active Start: October 23, 2024 End: October 23, 2024 Dr. Caleb Smith , Attending physician Active Start: October 23, 2024 End: October 23, 2024 Dr. Caleb Smith , DO Emergency Departme nt Physician Active Start: October 23, 2024 End: October 23, 2024 Team Status: Inactive Member Role/Relationship Status Dates Dr. Josafat Tinoco DO Primary care physician Active Start: November 10, 2024 End: November 11, 2024 Dr. Eduardo Mcdonald DO Attending physician Active Start: November 10, 2024 End: November 11, 2024 Dr. Eduardo Mcdonald , Emergency Department Physician Active Start: November 10, 2024 End: November 11, 2024 Team Status: Inactive Member Role/Relationship Status Dates Dr. Josafat Tinoco DO Primary care physician Active Start: December 17, 2024 End: December 17, 2024 Dr. Nathalie Manning , DO Emergency Departm ent Physician Active Start: December 17, 2024 End: December 17, 2024 Carry All Driver Relationship Specialty Start Date End Date Josafat Tinoco DO [address] [facility], [facility] [address] [place] [address] PCP - General Family Medicine 12/27/22 Dev Martel PA-C [address] [place] [address] PCP - [employer] PCP 06/14/23 Dev Martel PA-C [address] [place] [address] PCP - [facility] Medicaid PCP 12/14/23 Carry All Driver Relationship Specialty Start Date End Date Josafat Tinoco DO [address] [facility], [address] [address] PCP - General Family Medicine 12/27/22 Dev Martel PA-C [address] [place] [address] PCP - [employer] PCP 06/14/23 Dev Martel PA-C [address] [place] [address] PCP - [facility] Medicaid PCP 12/14/23 Reason for Visit (unrecogniz ed section and content) Reason Comments Pain xrays Specialty Diagnoses / Procedures Referred By Contac t Referred To Contact Radiology Diagnoses Lumbar pain Procedures XR lumbar spine complete 4+ views Sha Foster MD [address] [facility], [address] [place] [address] Referral ID Status Reason Start Date Expiration Date Visits Requested Visits Authorized [id number] Authorized Perform Procedure 05/04/2023 05/03/2024 1 1 Reason Comments Follow-up MRI was denied due t o lack of therapy, did [facility] [...] Back pain with radiculopathy Sha Foster MD [address] [facility], [address] [place] [address] Phone: tel: fax: Referral ID Status Reason Start Date Expiration Date Visits Requested Visits Authorized [id number] Authorized Specialty Services Required 4 02/07/2025 1 1 Reason Comments Back Pain Specialty Diagnoses / Procedures Referred By Julio Cesar hoffman Referred To Contact Pain Medicine Diagnoses Back pain with radiculopathy Dev Martel PA-C [address] [place] [address] Phone: tel: [place]: [place] [address] [facility], [address], [place] [address] Phone: tel: fax: Referral ID Status Reason Start Date Expiration Date Visits Requested Visits Authorized [id number] Authorized Specialty Services Required 06/27/2024 06/27/2025 1 1 Reason Comments New Patient Visit Evaluation of [facility]. Reason Comments Follow-up F/U MRI done at Reason Comments Back Pain Bilateral lower back pain with a hx of sciatica and L knee pain Reason Comments Follow-up F/U MRI done at Reason Comments Follow-up Cervical myelopathy sequela follow-up Ordered Prescriptions (unrec ognized section and content) [...] Oral, ONCE, 1 dose, On 01/29/24 at 2128 2129 (Given - Provid er: Laurie Alfonso RN) Scheduled Medication Order 02/07/2024 02/08/2024 02/09/2024 ketorolac (TORADOL) injection 30 mg (COMPLETED) 30 mg, IntraMUSCular, ONCE, 1 dose, On Wed02/08/24 at 2224, Do not administer for more than 5 days. 2230 (Given - Provider: Laurie Alfonso RN) morphine [...] 24 hours. 2323 (Given - Provider: Laurie Alfonso RN) predniSONE [...] Estrada RN) 0002 (Given - Provider: Haley Laboy, GIA)0620 (Given - Provider: Haley Laboy, GIA)121 (Given - Provider: Felipe Acuña RN)2024 (Given - Provider: Rafa Kwan RN) 0042 (Given - Provider: Rafa Kwan, GIA)0540 (Given - Provider: Rafa Kwan, GIA)1215 (Due)1815 (Due) ceFAZolin (Ancef) 2 g in dextrose (iso) IV 100 mL (COMPLETED) 2 g, intravenous, Administer over 30 Minutes, Once, On Angelita 12//24 at 0545, For 1 dose, Intraprocedure, premix bag, Dosing of this medication varies based on severity of illness. Does this patient have sepsis or concern for sepsis (probable or documented infection plus systemic manifestations of infection)? No, Suspected Indication (Select all that apply): Surgical Prophylaxis, Indications: Surgical Prophylaxis 1259 (Given - Provider: Pranay Lopez APRN-CENTRIFUGAL SCREEN TENDER)1613 (Anesthesia Volume Adjustment - Provider: Kris Madrid [...] (COMPLETED) 200 mg, oral, Once, On Angelita 24 at 0115, For 1 dose, Preprocedure, 1 [...] Haley Laboy RN)0917 (Stopped - Provider: Felipe Acuña, GIA) polyethylene glycol (Glycolax, Miralax) packet 17 g [...] Estrada, RN)2304 (Rate/Dose Verify - Provider: Haley Laboy RN) PRN Medication Order 02/24/2024 02/25/2024 02/26/2024 ALPRAZolam (Xanax) tablet 0.5 mg 0.5 mg, oral, Nightly PRN, anxiety, Starting on Angelita 02/24/24 at 2002 2009 (Given - Provider: Haley Laboy RN) 2025 (Given - Provider: Rafa Kwan, GIA) [...] first line, Starting on Angelita 24 at 1612, For 3 doses, Recovery (only), Max total of 200 micrograms regardless of dose., If ordered PRN for pain, nurse is permitted to administer this medication for higher pain scores based on patient preference? Yes 1652 (Given - Provider: Linda Galarza RN)1700 (Given [...] Linda Galarza, GIA)1629 (Given - Provider: Linda Galarza, GIA)1635 (Given - Provider: Linda Galarza, GIA)1643 (Given - Provider: Linda Galarza RN - [...] Eye, As needed, dry eyes, Starting on Wed02/24/24 at 1908 2009 (Given - Provider: Haley Laboy, GIA) meperidine PF (Demerol) injection 12.5 mg (CANCELED) 12.5 mg, intravenous, Every 10 min PRN, shivering, Starting on Angelita 02/24/24 at 1612, Recovery (only) 1614 (Given - Provider: Linda Galarza, GIA) morphine injection 2 mg 2 mg, intravenous, Every 2 hour PRN, pain breakthrough, use oral first and only use IV if oral is ineffective or cannot take oral. Use as first line if no PO med ordered., Starting on Angelita 02/24/24 at 1745 naloxone (Narcan) injection 0.2 mg 0.2 mg, intravenous, Every 5 min PRN, respiratory depression, Starting on Angelita 12/12/24 at 1745, If respiratory rate is less than 8 breaths/minute or patient is difficult to arouse stop any narcotics and contact physician. Administer slow IV push. Repeat as ordered until patient's respiratory rate is greater than 12 breaths/minute. ondansetron (Zofran) injection 4 mg(Linked Group 1) 4 mg, intravenous, Every 8 hours PRN, nausea/vomiting, first line, Starting on Angelita 12/24 at 1745, 1st Line. Give IV if [...] on Angelita 12//24 at 1745, 1st Line. Use oral route first, if possible. If inadequate response within 60 minutes, proceed to next-line agent for same PRN reason or contact provider if no further options ordered. oxyCODONE (Roxicodone) immediate release tablet 10 mg 10 mg, oral, Every 4 hours PRN, pain severe (7-10), first line, Starting on Angelita 12/24 at 1745, If ordered PRN for pain, nurse is permitted to administer this medication for higher pain scores based on patient preference? Yes 1806 (Given - Provider: Susana Estrada RN)2213 (Given - Provider: Haley Laboy RN) 0214 (Given - Provider: Haley Laboy RN)0620 (Given - Provider: Haley Laboy RN)1048 (Given - Provider: Felipe Acuña, GIA)1549 (Given - Provider: Felipe Acuña, RN)2024 (Given - Provider: Rafa Kwan, GIA) 0041 (Given - Provider: Rafa Kwan, GIA)0948 (Given - Provider: Felipe Acuña, GIA) oxyCODONE (Roxicodone) immediate release tablet 2.5 mg 2.5 mg, oral, Every 4 hours PRN, pain mild (1-3), first line, Starting on Angelita /24 at 1745, If ordered PRN for pain, nurse is permitted to administer this medication for higher pain scores based on patient preference? Yes oxyCODONE (Roxicodone) immediate release tablet 5 mg 5 mg, oral, Every 4 hours PRN, pain mild (1-3), first line, Starting on Wed02/24/24 at 1745, When able to take oral [...] as needed, Nausea/vomiting, second line, Starting on Wed02/24/24 at 1745, For 1 dose sodium chloride 0.9 % irrigation solution (CANCELED) As needed, Starting on Wed02/24/24 at 1334, Intraprocedure 1334 (Given - Provider: Sha Foster MD) thrombin-bovine (JMI) 5,000 unit topical solution (CANCELED) As needed, Starting on Wed02/24/24 at 1334, Intraprocedure 1334 (Given - Provider: [...] TransDERmal, Administer over 12 Hours, NOW, On Wed06/15/24 at 2144, For 1 dose, Apply patch to left lower back. The can filling machine operator's recommendations for the number of patches that can be applied within a 24-hour period varies from 1 to 4 times daily and the duration of application varies from 8 to 24 hours; refer to the can filling machine operator's labeling for product-specific recommendations. 2157 (Patch [...] 1 dose, On Angelita 07/13/24 at 2301 2354 (Given - Provider: Aarti Solano RN) morphine [...] at 2301 2351 (Given - Provider: Aarti Solano, GIA) sodium chloride 0.9 % bolus 500 mL [...] On Wed12/08/24 at 1845, For 1 dose 1859 (Given - Provid er: Monika Temple RN) [...] BE BASED ON THE PRIMARY CLINICAL RECORDS. [employer]. provides no warranty or guarantee of the accuracy or completeness of information in this document.
--- NOTE | 2025-02-03 16:37 | EDS_ITS ---
HPI History of Present Illness Chief Complaint: Back Narrative Narrative: Patient is a 44-year-old male presenting to the emergency department for back pain. Patient has a past medical history of cervical radiculopathy, chronic lumbar back pain with known disc herniation and sciatica. He is having L5-S1 laminectomy at [facility] on 02/05, 2 days from now. Patient states that he was seen here on 01/14 and made the pain pills last until yesterday. States that he only use them when he was in significant pain his baclofen, gabapentin and chlorzoxazone for pain control. States that his pain is unchanged from baseline. He reports chronic sensation changes in bilateral lower extremities, intermittent neurogenic bladder and left sided foot drop all unchanged from baseline. Patient denies any new injury to his back. Denies any fever, chills, IV drug use, bowel or bladder retention or incontinence changed from baseline, saddle anesthesia. 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 Instructions: upcoming surgery chlorzoxazone 500 mg tablet 500 mg PO 4X/DAY PRN PRN m uscle 11/11/24 Unknown History spasm oxycodone 5 mg tablet 5 mg PO Q8H PRN pain 2 days #6 tabs 02/03/25 Unknown Rx Allergy/AdvReac Type Severity Reaction Status Date / Time No Known Allergies Allergy Verified 02/03/25 15:46 Surgical History Hx of tonsillectomy Previous back surgery Social History household members: none housing: house Smoking Status: Current every day smoker tobacco type: cigarettes alcohol intake: current alcohol intake frequency: other substance use type: marijuana ROS ROS ED ROS Narrative see HPI EXAM Physical Exam Narrative Exam Narrative: Vital signs: Reviewed General: Alert and orientedx3. No acute distress HEENT: Head is normocephalic and atraumatic, sinuses nontender, pupils equal round and reactive. Nares are patent. Oropharynx and throat exams normal. Neck: Supple without lymphadenopathy nontender Cardiovascular: Regular rate and rhythm, no murmurs. No rubs or gallops. Normal S1 and S2 Respiratory: Clear to auscultation bilaterally. No wheezes, rales, rhonchi Abdominal: Soft and nontender. Normal bowel sounds. No guarding or rebound. Nonsurgical abdomen Extremities: No midline cervical, thoracic or lumbar spinal tenderness to palpation. There is some mild left-sided paraspinal tenderness to palpation. There is no rashes to the back. Negative straight leg test bilaterally. Foot drop on the left. Decreased sensation to light touch on the right lower leg that patient states is chronic. Decreased sensation in the L4 dermatome on the left leg. DP and PT pulses are intact bilaterally. Skin: No rash or redness. The rest of the physical exam is unremarkable Const Vital Signs: 02/03/25 15:42 Temperature 96.8 F L Temperature Source Temporal Pulse Rate 84 Respiratory Rate 18 Blood Pressure 116/74 Blood Pressure Mean 88 Pulse Ox 99 MDM MDM MDM Narrative Medical decision making narrative: The patient is a 44-year-old male presenting to the emergency department for back pain. Patient was seen and examined. Vitals are stable. Patient resting bed comfortably no acute distress. Patient has no changes to his lower extremity neurologic status based on prior ED notes. He had no new injury to his back. He has no red flag back pain signs that are new. States that he feels like this is a slight worsening of his back pain that he usually receives narcotics for. I do a concern about prescribing his narcotics given the patient's request however he has surgery on 02/05 at and I think it is appropriate to prescribe him 2 days worth of narcotics. Do not think he requires any additional imaging. He was given a dose of oxycodone here. He had improvement in his pain. Patient discharged from the Emergency Department. I do not feel that the patient's evaluation reveals any acute reason for admission at this time. I instructed them to either follow-up with their primary care physician or promptly return to the Emergency Department for reevaluation should symptoms worsen or new symptoms develop. I explained what symptoms would indicate the need to return to the emergency department. Shared decision making was used. The patient voiced understanding of the treatment plan and is agreeable with it. Clinical impression Acute on chronic back pain History & Record Review Discussion w/independent historian: Patient Additional record(s) reviewed:: Prior ED visit Discharge Plan Triage Chief Complaint: Back ED Provider: Merlene Platt Dx/Rx/DC Orders Clinical Impression: Acute on chronic back pain Instructions: Self-Care for Low Back Pain Prescriptions: New oxycodone 5 mg tablet 5 mg PO Q8H PRN (Reason: pain) 2 Days Qty: 6 0RF No Action baclofen 10 mg tablet 20 mg PO Q8H cholecalciferol (vitamin D3) 125 mcg (5,000 unit) capsule 125 mcg PO DAILY gabapentin 300 mg capsule 600 mg PO Q8H chlorzoxazone 500 mg tablet 500 mg PO 4X/DAY PRN PRN (Reason: muscle spasm) Primary Care Provider: Josafat Davis Referrals: Josafat Davis, [Primary Care Provider, Medical] - As soon as possible Activity Restrictions/Additional Instructions: The short prescription of pain medication will get you through your surgery. Your evaluation in the Emergency Department did not reveal any acute reason for admission. However, I want to emphasize that you may be early in the course of a disease process or illness even if it is not present. For this reason you should follow-up within 24 hours for reevaluation with either your primary care physician or if necessary back here in the Emergency Department. You should return to the Emergency Department immediately if your symptoms worsen or new symptoms develop. Print Language: Icelandic Disposition Disposition: Home, Self Care Discharge Date/Time: 02/03/25 17:48
== END 2025-02-03 17:48 | disposition home or self-care (01) ==
PROVIDERS: Emergency Provider Student in an Organized Health Care Education/Training Program; PCP Family Medicine; Visit Provider Student in an Organized Health Care Education/Training Program
DX: M54.50 Low back pain, unspecified (principal); G89.29 Other chronic pain; F17.210 Nicotine dependence, cigarettes, uncomplicated
CPT/HCPCS: 99282

== ENCOUNTER 2025-02-23 16:13 | Emergency (ER) | payer MEDICAID, SELFPAY ==
[2025-02-23 16:18] VITALS: BP 137/111; PULSE 99; RESP 18; TEMP 36.9; O2SAT 100; BMI 23.3
--- NOTE | 2025-02-23 16:28 | NURSING ---
dr dodson in and was getting history on pt. told pt that er physicians cannot prescibe pain meds afterr surgeon has declined and seda since out of town pt immediatly became aggitated and upset and told dr. dodson that does not want a female dr and that knows that has a right to pick a different dr.
--- OUTSIDE RECORDS SUMMARY | 2025-02-23 16:46 | XMS RPT_ITS | CCD ---
Author Organization [facility] ion [facility] Care Team Providers Care Historical Guide Name Role Phone BRANCH, TOM Unavailable Unavailable [...] Sha Rice Attending Unavai lable Cristian, Dr. Sah Rice Attending Unavai lable Degidio DO, Josafat R Unavailable Degidio DO, Josafat R Unavailable [phone] Degidio DO, Josafat R Primary Care Provider [phone] Asif Martel PA-Cson E Unavailable Degidio DO, [...] Degidio , Dr. Maurice Primary Care Provider Luis GOULD, Dr. Ellis Emergency Provider [phone] SHA FOSTER Admitting Unavailable SHA FOSTER Attending Unavailable SHA FOSTER Referring Unavailable DEGIDIO, JOSAFAT R Primary Care Unavailable Smith DO, Dr. Ellis Attending Provider Tamara GOULD, Dr. Clark Emergency Provider Ryan GOULD, Dr. Maurice Primary Care Physician Luis GOULD, Dr. Ellis Attending Physician Luis GOULD, Dr. Ellis Emergency Department [facility] Dr. Clark [facility]ending Physician [facility] , Dr. Clark Emergency Departmen t Physician [facility] , Dr. Zelaya Emergency Department Physi [...] Unavailable Degidio, Josafat Primary Care Unavailable Caleb Smtih Attending Unavailable Neeraj Antonio Attending Unavailable Degidio, Josafat Primary Care Unavailable Allergies Allergy Classification Reported Allergen(s) Allergy Type Date of Onset Reaction(s) Facility (1 source) ALLERGIES NOT ON FILE; Translations: [ALLERGIES NOT ON FILE] Propensity to adverse reactions (disorder) [facility] Repository Medications Current Medications Medication Drug Class(es) Dates Sig (Normalized) Sig (Original) ALPRAZolam 0.5 mg oral tablet (1 source) Benzodiazepine Start: 02-24-2024 take 0.5 mg by mouth once daily as needed for anxiety 0.5 mg, oral, Nightly PRN, anxiety, Starting on [facility] 02/24/24 at 2002 baclofen 10 mg oral [...] D Start: 10-23-2024 take 1 capsule by [facility] once daily Start: 06-28-2024 take 1 capsule [...] Apply patch to left lower back. The bellhop's recommendations for the number of patches that can be applied within a 24-hour period varies from 1 to 4 times daily and the duration of application varies from 8 to 24 hours; refer to the bellhop's labeling for product-specific recommendations. Start: 12-12-2023 End: [...] respiratory rate is greater than 12 breaths/minute. [place] (Nk) (1 source) Start: 08-20-2021 [place] (Nk) Active August 20, 2021 12:00am oxygen [...] June 15, 2021 9:05pm polyethylene glycol 3350 83551 mg powder for oral solution (1 source) [...] First dose on Wed02/23/24 at 0100, Mini-Bag Plus/ADD-[place] bag, Dosing of this medication varies based [...] Basophils (Bld) [#/Vol] 0.04 x10*3/uL Normal 0.00-0.10 [facility] Comment on above: Performed By: #### 5 7021-8 #### LINN MASON ([id number]) [facility] ([facility] [address] [place] [address] Basophils/100 WBC (Bld) 0.6 % Normal 0.0-2.0 [facility] Comment on above: Performed By: #### 5 7021-8 #### LINN MASON ([id number]) [facility] ([facility]) [address] [place] [address] Eosinophils (Bld) [#/Vol] 0.16 x10*3/uL Normal 0.00-0.70 [facility] Comment on above: Performed By: #### 5 7021-8 #### LINN MASON ([id number]) [facility] ([facility] [address] [place] [address] Eosinophils/100 WBC (Bld) 2.3 % Normal 0.0-6.0 [facility] Comment on above: Performed By: #### 5 7021-8 #### LINN MASON ([id number]) [facility] ([facility] [address] [place] [address] Erythrocyte distribution width (RBC) [Ratio] 11.7 % Normal 11.5-14.5 [facility] Comment on above: Performed By: #### 5 7021-8 #### LINN MASON ([id number]) [facility] ([facility] [address] [place] [address] Hematocrit (Bld) [Volume fraction] 50.0 % Normal 41.0-52.0 [facility] Comment on above: Performed By: #### 5 7021-8 #### LINN MASON ([id number]) [facility] ([facility] [address] [place] [address] Hemoglobin (Bld) [Mass/Vol] 16.5 g/dL Normal 13.5-17.5 [facility] Comment on above: Performed By: #### 5 7021-8 #### LINN MASON ([id number]) [facility] ([facility] [address] [place] [address] Immature granulocytes (Bld) [#/Vol] 0.02 x10*3/uL Normal 0.00-0.70 [facility] Comment on above: Performed By: #### 5 7021-8 #### LINN MASON ([id number]) [facility] ([facility] [address] [place] [address] Immature granulocytes/100 WBC (Bld) 0.3 % Normal 0.0-0.9 [facility] Comment on above: Result Comment: Tamiko ture Granulocyte Count (IG) includes promyelocytes, myelocytes and metamyelocytes but does not include bands. Percent differential counts (%) should be interpreted in the context of the absolute cell counts (cells/UL). Performed By: #### 5 7021-8 #### LINN MASON ([id number]) [facility] ([facility] [address] [place] [address] Lymphocytes (Bld) [#/Vol] 1.45 x10*3/uL Normal 1.20-4.80 [facility] Comment on above: Performed By: #### 5 7021-8 #### LINN MASON ([id number]) [facility] ([facility] [address] [place] [address] Lymphocytes/100 WBC (Bld) 20.9 % Normal 13.0-44.0 [facility] Comment on above: Performed By: #### 5 7021-8 #### LINN MASON ([id number]) [facility] ([facility] [address] [place] [address] MCH (RBC) [Entitic mass] 31.9 pg Normal 26.0-34.0 [facility] Comment on above: Performed By: #### 5 7021-8 #### LINN MASON ([id number]) [facility] ([facility] [address] [place] [address] MCHC (RBC) [Mass/Vol] 33.0 g/dL Normal 32.0-36.0 [facility] Comment on above: Performed By: #### 5 7021-8 #### LINN MASON ([id number]) [facility] ([facility] [address] [place] [address] MCV (RBC) [Entitic vol] 97 fL Normal 80-100 [facility] Comment on above: Performed By: #### 5 7021-8 #### LINN MASON ([id number]) [facility] ([facility] [address] [place] [address] Monocytes (Bld) [#/Vol] 0.71 x10*3/uL Normal 0.10-1.00 [facility] Comment on above: Performed By: #### 5 7021-8 #### LINN MASON ([id number]) [facility] ([facility] [address] [place] [address] Monocytes/100 WBC (Bld) 10.2 % Normal 2.0-10.0 [facility] Comment on above: Performed By: #### 5 7021-8 #### LINN MASON ([id number]) [facility] ([facility] [address] [place] [address] Neutrophils (Bld) [#/Vol] 4.57 x10*3/uL Normal 1.20-7.70 [facility] Comment on above: Result Comment: Perc ent differential counts (%) should be interpreted in the context of the absolute cell counts (cells/uL). Performed By: #### 5 7021-8 #### LINN MASON ([id number]) [facility] ([facility] [address] [place] [address] Neutrophils/100 WBC (Bld) 65.7 % Normal 40.0-80.0 [facility] Comment on above: Performed By: #### 5 7021-8 #### LINN MASON ([id number]) [facility] ([facility] [address] [place] [address] Nucleated RBC/100 WBC (Bld) [Ratio] 0.0 /100 WBCs Normal 0.0-0.0 [facility] Comment on above: Performed By: #### 5 7021-8 #### LINN MASON ([id number]) [facility] ([facility] [address] [place] [address] Platelets (Bld) [#/Vol] 237 x10*3/uL Normal 150-450 [facility] Comment on above: Performed By: #### 5 7021-8 #### LINN MASON ([id number]) [facility] ([facility] [address] [place] [address] RBC (Bld) [#/Vol] 5.17 x10*6/uL Normal 4.50-5.90 [facility] Comment on above: Performed By: #### 5 7021-8 #### LINN MASON ([id number]) [facility] ([facility] [address] [place] [address] WBC (Bld) [#/Vol] 7.0 x10*3/uL Normal 4.4-11.3 [facility] Comment on above: Performed By: #### 5 7021-8 #### LINN MASON ([id number]) [facility] ([facility] [address] [place] [address] Coagulation tissue factor in ducedon 01-22-2025 PT Coag (PPP) [Time] 11.8 s Normal 9.8-12.4 [facility] Comment on above: Performed By: #### 5 902-2 #### LINN MASON ([id number]) [facility] ([facility]) [address] [place] [address] Comprehensive metabolic 2000 panelon 01-22-2025 Albumin BCP dye [Mass/Vol] 4.7 g/dL Normal 3.4-5.0 [facility] Comment on above: Performed By: #### 2 4323-8 #### LINN MASON ([id number]) [facility] ([facility] [address] [place] [address] ALP [Catalytic activity/Vol] 82 U/L Normal 33-120 [facility] Comment on above: Performed By: #### 2 4323-8 #### LINN MASON ([id number]) [facility] ([facility] [address] [place] [address] ALT With P-5'-P [Catalytic activity/Vol] 12 U/L Normal 10-52 [facility] Comment on above: Result Comment: Elvi ents treated with Sulfasalazine may generate falsely decreased results for ALT. Performed By: #### 2 4323-8 #### LINN MASON ([id number]) [facility] ([facility] [address] [place] [address] Anion gap [Moles/Vol] 14 mmol/L Normal 10-20 [facility] Comment on above: Performed By: #### 2 4323-8 #### LINN MASON ([id number]) [facility] ([facility] [address] [place] [address] AST With P-5'-P [Catalytic activity/Vol] 14 U/L Normal 9-39 [facility] Comment on above: Performed By: #### 2 4323-8 #### LINN MASON ([id number]) [facility] ([facility] [address] [place] [address] Bilirubin [Mass/Vol] 0.6 mg/dL Normal 0.0-1.2 [facility] Comment on above: Performed By: #### 2 4323-8 #### LINN MASON ([id number]) [facility] ([facility] [address] [place] [address] Calcium [Mass/Vol] 10.1 mg/dL Normal 8.6-10.3 [facility] Comment on above: Performed By: #### 2 4323-8 #### LINN MASON ([id number]) [facility] ([facility] [address] [place] [address] Chloride [Moles/Vol] 103 mmol/L Normal 98-107 [facility] Comment on above: Performed By: #### 2 4323-8 #### LINN MASON ([id number]) [facility] ([facility] [address] [place] [address] CO2 [Moles/Vol] 26 mmol/L Normal 21-32 [facility] Comment on above: Result Comment: [...] By: #### 2 4323-8 #### LINN MASON ([id number]) [facility] ([facility] [address] [place] [address] Creatinine [Mass/Vol] 1.07 mg/dL Normal 0.50-1.30 [facility] Comment on above: Performed By: #### 2 4323-8 #### LINN MASON ([id number]) [facility] ([facility]) [address] [place] [address] Glomerular filtration rate 88 mL/min/1.73m*2 Normal >60 [facility] Comment on above: Result Comment: Calc ulations of estimated GFR are performed using the 2020 CKD-EPI Study Refit equation without the race variable for the IDMS-Traceable creatinine methods. https://jasn.asnjournals.org/content/early/ASN.138326 1097 Performed By: #### 2 4323-8 #### LINN MASON ([id number]) [facility] ([facility]) [address] [place] [address] Glucose [Mass/Vol] 103 mg/dL High 74-99 [facility] Comment on above: Performed By: #### 2 4323-8 #### LINN MASON ([id number]) [facility] ([facility] [address] [place] [address] Potassium [Moles/Vol] 4.3 mmol/L Normal 3.5-5.3 [facility] Comment on above: Performed By: #### 2 4323-8 #### LINN MASON ([id number]) [facility] ([facility] [address] [place] [address] Protein [Mass/Vol] 7.3 g/dL Normal 6.4-8.2 [facility] Comment on above: Performed By: #### 2 4323-8 #### LINN MASON ([id number]) [facility] ([facility] [address] [place] [address] Sodium [Moles/Vol] 139 mmol/L Normal 136-145 [facility] Comment on above: Performed By: #### 2 4323-8 #### LINN MASON ([id number]) [facility] ([facility]) [address] [place] [address] Urea nitrogen [Mass/Vol] 15 mg/dL Normal 6-23 [facility] Comment on above: Performed By: #### 2 4323-8 #### LINN MASON ([id number]) [facility] ([facility]) [address] [place] [address] ECG 12-LEADon 01-22-2025 ECG 12-LEAD Ventricular Rate 66 Atrial Rate 66 P-R Interval 128 QRS Duration 88 Q-T Interval 384 QTC Calculation(Bazett) 402 P Dunedin 54 R Dunedin 66 T Dunedin 56 QRS Count 11 Q Onset 221 P Onset 157 P Offset 206 T Offset 413 QTC Fredericia 396 Diagnosis Normal sinus rhythm Normal ECG When compared with ECG of 23-FEB-2024 14:12, No significant change was found Normal [facility] HbA1c (Bld) [Mass fraction]o n 01-22-2025 Average glucose Estimated from glycated hemoglobin (Bld) [Mass/Vol] 105 mg/dL Normal Not Established [facility] Comment on above: Order Comment: Diagn osis of Diabetes-Adults Non-Diabetic: < or = 5.6% Increased risk for developing diabetes: 5.7-6.4% Diagnostic of diabetes: > or = 6.5% Performed By: #### 4 548-4 #### SERENE Sandra ([id number]) [facility] ([facility]) [address] [place] [address] Hemoglobin A1c/Hemoglobin.to ashley 01-22-2025 HbA1c (Bld) [Mass fraction] 5.3 % Normal See comment [facility] Comment on above: Order Comment: Diagn osis of Diabetes-Adults Non-Diabetic: < or = 5.6% Increased risk for developing diabetes: 5.7-6.4% Diagnostic of diabetes: > or = 6.5% Performed By: #### 4 548-4 #### SERENE Sandra ([id number]) [facility] ([facility]) [address] [place] [address] PT Coag (PPP) [Time]on 01-22 INR Coag (PPP) [Relative time] 1.1 Normal 0.9-1.1 [facility] Comment on above: Performed By: #### 5 902-2 #### LINN MASON ([id number]) [facility] ([facility]) [address] [place] [address] Staphylococcus aureus.methic illin resistant isolateon 01-22-2025 MRSA isol Org specific cx Ql (Nose) Test: Staphylococcus aureus/MRSA colonization, Culture Specimen Source: Nares/Axilla/Groin Specimen Type: Swab Specimen Date: 01/22/2025 1252 Result Date: 01/24/2025 0017 Result Status: Final result Abnormal: No Resulting Lab: [facility] [address] [place] [address] CULTURE No Staphylococcus aureus isolated Normal [facility] Comment on above: Performed By: #### 5 2969-3 #### SERENE Sandra ([id number]) [facility] ([facility]) [address] [place], [place] [address] Emergency Department Summary on 01-14-2025 Emergency Department Summary [facility] Medical Records Department [address] [place] [address] Emergency Department Summary 01/14/25 MR#: [id number] Acct: [id number] Name: HARMAN JAMIL Rep #: [id number] : 1980 44 From: Neeraj Antonio MD [...] Downgoing: bilate (more content not included)... Normal [facility] M8200.2203on 12-18-2024 M8200.2203 Pending Chlamydia Trachomatis PCR NEGATIVE for Chlamydia trachomatis N. gonorrhoeae PCR Negative for N. gonorrhoeae Normal [facility] Comment on above: Performed By: #### M 8200.2203, L400.0001 #### [facility] [address] [facility] [place], [address] Bilirubin Test strip Ql (U)O rdered By: Nathalie Manning on 12-17-2024 Bilirubin Ql (U) Negative Negative [facility] Emergency Department Summary on 12-17-2024 Emergency Department Summary [facility] Medical Records Department [address] [place] [address] Emergency Department Summary 12/17/24 MR#: [id number] Acct: [id number] Name: HARMAN JAMIL Rep #: [id number] : 1980 44 From: Nathalie Manning DO [...] masturbates approximately 7 times a day. PFSH [facility] Medical History ADHD Sciatica Cervical radiculopathy [...] Ur Specifi (more content not included)... Normal [facility] Ketones Test strip Ql (U)Ord ered By: Nathalie Maninng on 12-17-2024 Ketones Ql (U) Negative Negative [facility] Microscopic analysis of urin e for red blood cells (RBC)Ordered By: Nathalie Manning on 12-17-2024 Microscopic analysis of urine for red blood cells (RBC) 0 SEEN /hpf 0-5 [facility] Mucus LM Ql (Urine sed)Order ed By: Nathalie Manning on 12-17-2024 Mucus Ql (Urine sed) 0 SEEN /hpf [facility] Nitrite Test strip Ql (U)Ord ered By: Nathalie Manning on 12-17-2024 Nitrite Ql (U) Negative Negative [facility] Protein Test strip Ql (U)Ord ered By: Nathalie Manning on 12-17-2024 Protein Ql (U) 30 mg/dl High Negative [facility] Squamous epithelial cells de tection in urine sediment by light microscopyOrdered By: Nathalie Manning on 12-17-2024 Epithelial cells.squamous LM Ql (Urine sed) 0 SEEN /hpf 0-5 [facility] Urinalysis, Completeon 12-17 BACTERIA 0 SEEN Normal None Seen [facility] Comment on above: Order Comment: CLEAN CATCH Performed By: #### M 8200.2203, L400.0001 #### [facility] [address] [place], [address] EPI,SQUAMOUS 0 SEEN Normal 0-5 [facility] Comment on above: Order Comment: CLEAN CATCH Performed By: #### M 8200.2203, L400.0001 #### [facility] [address] [place], [address] Mucus Ql (Urine sed) 0 SEEN Normal [facility] Comment on above: Order Comment: CLEAN CATCH Performed By: #### M 8200.2203, L400.0001 #### [facility] [address] [place], [address] RBC 0 SEEN Normal 0-5 [facility] Comment on above: Order Comment: CLEAN CATCH Performed By: #### M 8200.2203, L400.0001 #### [facility] [address] [place], [address] WBC 0 SEEN Normal 0-5 [facility] Comment on above: Order Comment: CLEAN CATCH Performed By: #### M 8200.2203, L400.0001 #### [facility] [address] [place], [address] Urine clarityOrdered By: Delma Manning on 12-17-2024 Clarity (U) Sl. Cloudy Clear [facility] Urine color determinationOrd ered By: Nathalie Manning on 12-17-2024 Color (U) Yellow Yellow [facility] Urine glucose detectionOrder ed By: Nathalie Manning on 12-17-2024 Glucose Ql (U) Normal mg/dl Normal [facility] Urine leukocyte esterase det ection by dipstickOrdered By: Nathalie Manning on 12-17-2024 Leukocyte esterase Test strip Ql (U) Negative Negative [facility] Urine pHOrdered By: Nathalie bryson on 12-17-2024 pH (U) 5.0 [pH] 5.0 - 8.0 [facility] Urine sediment bacteria coun t by microscopy (number/high power field)Ordered By: Nathalie Manning on 12-17-2024 Bacteria LM.HPF (Urine sed) [#/Area] 0 /[HPF] None Seen [facility] Urine specific gravity measu rementOrdered By: Nathalie Manning on 12-17-2024 Specific gravity (U) [Rel density] 1.025 1.002-1.030 [facility] Urine urobilinogen measureme ntOrdered By: Nathalie Manning on 12-17-2024 Urobilinogen Ql (U) Normal mg/dl Normal [facility] White blood cell countOrdere d By: Nathalie Manning on 12-17-2024 White blood cell count 0 SEEN /hpf 0-[address] [facility] [address] LUMBAR SPINE WO IV CONTRA STon 12-08-2024 CT LUMBAR SPINE WO IV CONTRAST Interpreted By: Nick Carrizales, STUDY: CT LUMBAR SPINE WO IV CONTRAST; 12/08/2024 7:15 pm INDICATION: Signs/Symptoms:fall, low back pain. COMPARISON: None. ACCESSION NUMBER(S): [id number] ORDERING CLINICIAN: PARRISH TALBERT TECHNIQUE: Contiguous axial [...] Nick Carrizales 12/08/2024 7:53 PM Dictation workstation: [id number] [facility] CT Lumbar spine WO contrasto n 12-08-2024 [...] Nick Carrizales 12/08/2024 7:53 PM Dictation workstation: [id number] Interpreted By: Nick Bui, STUDY: CT LUMBAR SPINE WO IV CONTRAST; 12/08/2024 7:15 pm INDICATION: Signs/Symptoms:fall, low back pain. COMPARISON: None. ACCESSION NUMBER(S): [id number] ORDERING CLINICIAN: PARRISH TALBERT TECHNIQUE: Contiguous axial [...] low back pain. COMPARISON: None. ACCESSION NUMBER(S): [id number] ORDERING CLINICIAN: PARRISH TALBERT TECHNIQUE: Contiguous axial [...] Nick Carrizales 12/08/2024 7:53 PM Dictation workstation: [id number] [facility] Work Phone: Radiology Study observation (narrative) [facility] Work Phone: CT Lumbar spine WO contrastO rdered By: Nick Carrizales on 12-08-2024 [facility] Work Phone: MR CERVICAL SPINE WO IV CONT RASTon 12-08-2024 MR CERVICAL SPINE WO IV CONTRAST Interpreted By: Isaiah Dixon, STUDY: MR CERVICAL SPINE WO IV CONTRAST; MR THORACIC SPINE WO IV CONTRAST; ; 12/08/2024 6:34 pm; 12/08/2024 5:48 pm INDICATION: Signs/Symptoms:myelopathy. ,G95.9 Disease of spinal cord, unspecified (Multi) COMPARISON: MRI cervical and thoracic spine from 02/17/2024. ACCESSION NUMBER(S): [id number]; [id number] ORDERING CLINICIAN: SHA FOSTER TECHNIQUE: MRI of [...] detailed above. This study was interpreted at [facility]. MACRO: None Signed by: Isaiah Dixon 12/11/2024 2:03 PM Dictation workst (more content not included)... Normal Comment on above: Order Comment: RASHAWN HURTADO [...] and thoracic spine from 02/17/2024. ACCESSION NUMBER(S): [id number]; [id number] ORDERING CLINICIAN: SHA FOSTER TECHNIQUE: MRI of [...] detailed above. This study was interpreted at [facility]. MACRO: None Signed by: Isaiah Dixon 12/11/2024 2:03 PM Dictation workst (more content not included)... Normal Comment on above: Order Comment: RASHAWN Vidal EAD Emergency Department Summary on 11-11-2024 Emergency Department Summary [facility] Medical Records Department [address] [facility] [place] [address] Emergency Department Summary 11/11/24 MR#: [id number] Acct: [id number] Name: HARMAN JAMIL Rep #: [id number] : 1980 44 From: Eduardo Mcdonald DO [...] Psych: Cooperative, appropriate mood and affect PFSH [facility] Medical History ADHD Sciatica Cervical radiculopathy [...] with IM (more content not included)... Normal [facility] Bedside Glucoseon 10-25-2024 FINGERSTICK GLU 105 mg/dL Normal 74-106 [facility] Comment on above: Result Comment: YAJAIRA [place]O OF PATIENT CARE PER NURSING PROTOCOL Performed By: #### L 501.080 #### [facility] Laboratory [address] [facility] [place], [address] 12 Lead EKGon 10-23-2024 12 Lead EKG [facility] Cardiovascular Services [address] [place] [address] 12 Lead EKG 10/23/24 1541 MR#: [id number] Acct: [id number] Name: HARMAN JAMIL Rep #: [id number] : 1980 44 From: Kirs Hensley MD Attending Dr: Status: DEP ER [...] Normal ECG Confirmed by Kris Hensley ([id number]), image editor DEJAH FRANCISCO ([id number]) on 10/24/2024 11:41:15 AM Referred By: Confirmed By: Kris Hensley 10/24/24 1141 Date Kris Hensley MD CC: Dr. Josafat Tinoco DO; Dr. Caleb Smith DO Signed Normal [facility] Emergency Department Summary on 10-23-2024 Emergency Department Summary [facility] Medical Records Department [address] [place] [address] Emergency Department Summary 10/23/24 MR#: [id number] Acct: [id number] Name: HARMAN JAMIL Rep #: [id number] : 1980 44 From: Caleb Smith DO PCP: Dr. Josafat Tinoco DO Status:REG ER Location: ED ADDENDUM by Dr. Caleb Smith DO on 10/23/24 at 1603 Patient's EKG reviewed and showed sinus rhythm with a rate of 70 bpm. QTc was noted to be 437 with a normal SC interval 144. 10/23/24 1603 Cosigner Signature (if [...] brought him in here to be evaluated. [facility] Medical History ADHD Sciatica Cervical [...] states that earlier today he went to [place] for a psych eval and he states that this appointment went well. He states that he stopped at a friend's house and then was on his way to see his mother and he notes that he ended up here and is not sure what happened. He denies any history of drug abuse. Patient's eqefz-uw-rysk glucose was noted to be 105. Patient [...] there is (more content not included)... Normal [facility] Glucose [facility] deOrdered By: Caleb Smith on 10-23-2024 Glucose [Mass/Vol] 105 mg/dL 74-106 [facility] Comment on above: MANAGEMENT OF [...] COMPARISON: MR lumbar spine 02/18/2024. ACCESSION NUMBER(S): [id number] ORDERING CLINICIAN: APOORVA SERELS TECHNIQUE: Multiplanar, multisequence [...] is mild central canal stenosis. There is urei-wh-xkwhovny left and minimal right neural foraminal narrowing. [...] Hendrix MD. This study was interpreted at [facility], [place], [place]. MACRO: None Signed by: Eufemia Khan 10/13/2024 12:40 PM Dictation workstation: [id number] [facility] CBC W Auto Differential pane l (Bld)on 07-14-2024 Basophils (Bld) [#/Vol] 0.1 10*3/uL 0.0 - 0.2 K/uL [facility] Basophils/100 WBC (Bld) 0.6 % [facility] Eosinophils (Bld) [#/Vol] 0.7 10*3/uL 0.0 - 0.7 K/uL [facility] Eosinophils/100 WBC (Bld) 5.2 % [facility] Erythrocyte distribution width (RBC) [Ratio] 12 % 11.5 - 14.5 % [facility] Hematocrit (Bld) [Volume fraction] 48.2 % 42.0 - 52.0 % [facility] Hemoglobin (Bld) [Mass/Vol] 16.1 g/dL 14.0 - 18.0 g/dL [facility] Interpretation and review of laboratory results Abnormal [facility] Lymphocytes (Bld) [#/Vol] 4 10*3/uL 1.0 - 4.8 K/uL [facility] Lymphocytes/100 WBC (Bld) 31.1 % [facility] MCH (RBC) [Entitic mass] 31.2 pg 27.0 - 31.3 pg [facility] MCHC (RBC) [Mass/Vol] 33.4 % 33.0 - 37.0 % [facility] MCV (RBC) [Entitic vol] 93.4 fL High 79.0 - 92.2 fL [facility] Monocytes (Bld) [#/Vol] 1.1 10*3/uL High 0.2 - 0.8 K/uL [facility] Monocytes/100 WBC (Bld) 8.5 % [facility] Neutrophils (Bld) [#/Vol] 7.1 10*3/uL High 1.4 - 6.5 K/uL [facility] Platelets (Bld) [#/Vol] 312 10*3/uL 130 - 400 K/uL [facility] RBC (Bld) [#/Vol] 5.16 10*6/uL [facility] Segmented neutrophils/100 WBC (Bld) 54.3 % [facility] WBC (Bld) [#/Vol] 13 10*3/uL High 4.8 - 10.8 K/uL [facility] CT Kidney WO contraston 05-0 1. No acute intra-abdominal or pelvic process. No urinary calculi or obstruction. 2. Focal moderate disc degenerative change L4-L5. [facility] RADIOLOGY EXAMINATION: CT OF THE ABDOMEN [...] abnormalities. Focal moderate disc degenerative change L4-L5. [facility] RADIOLOGY Smith Bullock MD - 07/14/2024 [...] 2. Focal moderate disc degenerative change L4-L5. [facility] [employer] CT Kidney WO contrastOrdered By: Smith Bullock on 07-14-2024 [facility] [employer] Work Phone: UR Drugs of Abuse Panelon Drug Screen Comment see below Normal [facility] Comment on above: Result Comment: This method is a screening test to detect only these drug classes as part of a medical workup. Confirmatory testing by another method should be ordered if clinically indicated. Performed By: #### U DRGS #### [facility] [address] [facility] [address] UR Cannabinoids Screen Positive Abnormal Negative < [facility] Comment on above: Performed By: #### U DRGS #### [facility] [address] [place] [address] UR Fentanyl Screen Negative Normal Negative < [facility] Comment on above: Performed By: #### U DRGS #### [facility] [address] [place] [address] UR Amphetamines Screen Negative Normal Negative < [facility] Comment on above: Performed By: #### U DRGS #### [facility] [address] [place] [address] UR Barbiturates Screen Negative Normal Negative < [facility] Comment on above: Performed By: #### U DRGS #### [facility] [address] [place] [address] UR Benzo Screen Negative Normal Negative < [facility] Comment on above: Performed By: #### U DRGS #### [facility] [address] [place] [address] UR Cocaine Screen Negative Normal Negative < [facility] Comment on above: Performed By: #### U DRGS #### [facility] [address] [place] [address] UR Methadone Screen Negative Normal Negative < [facility] Comment on above: Performed By: #### U DRGS #### [facility] [address] [place] [address] UR Opiates Screen Negative Normal Negative < [facility] Comment on above: Performed By: #### U DRGS #### [facility] [address] [place] [address] UR Oxycodone Screen Negative Normal Negative < [facility] Comment on above: Performed By: #### U DRGS #### [facility] [address] [place] [address] UR PCP Screen Negative Normal Negative < [facility] Comment on above: Performed By: #### U DRGS #### [facility] [address] [place] [address] UR Propoxyphene Screen Negative Normal Negative < [facility] Comment on above: Performed By: #### U DRGS #### [facility] [address] [place] [address] Urinalysis with Reflex to Cu ltureon 07-14-2024 Glucose Test strip (U) [Mass/Vol] Negative Negative mg/dL [facility] Ketones (U) [Mass/Vol] Negative Negative mg/dL [facility] Protein (U) [Mass/Vol] Negative Negative mg/dL [facility] Urine Reflex to Culture Not Indicated [facility] Urobilinogen Qn (U) 0.2 NINF [facility] Urinalysis, reflex to cultur stephen 07-14-2024 Bilirubin Ql (U) Negative Normal Negative [facility] Comment on above: Performed By: #### C BCWD #### [facility] [address] [place] [address] Clarity (U) Clear Normal Clear [facility] Comment on above: Performed By: #### C BCWD #### [facility] [address] [place] [address] Color (U) Yellow Normal Straw/[place] [facility] Comment on above: Performed By: #### C BCWD #### [facility] [address] [place] [address] Glucose Ql (U) Negative Normal Negative [facility] Comment on above: Performed By: #### C BCWD #### [facility] [address] [place] [address] Hemoglobin Ql (U) Negative Normal Negative [facility] Comment on above: Performed By: #### C BCWD #### [facility] [address] [place] [address] Ketones Ql (U) Negative Normal Negative [facility] Comment on above: Performed By: #### C BCWD #### [facility] [address] [place] [address] Leukocyte esterase Test strip Ql (U) Negative Normal Negative [facility] Comment on above: Performed By: #### C BCWD #### [facility] [address] [place] [address] Nitrite Ql (U) Negative Normal Negative [facility] Comment on above: Performed By: #### C BCWD #### [facility] [address] [place] [address] pH (U) 6.5 [pH] Normal 5.0-9.0 [facility] Comment on above: Performed By: #### C BCWD #### [facility] [address] [place] [address] Protein Ql (U) Negative Normal Negative [facility] Comment on above: Performed By: #### C BCWD #### [facility] [address] [place] [address] Specific gravity (U) [Rel density] 1.026 Normal 1.005-1.03 [facility] Comment on above: Performed By: #### C BCWD #### [facility] [address] [place] [address] Urine Reflexed to Culture Not Indicated Normal [facility] Comment on above: Performed By: #### C BCWD #### [facility] [address] [place] [address] Urobilinogen Qn (U) 0.2 {Bassam'U}/dL Normal < 2.0 [facility] Comment on above: Performed By: #### C BCWD #### [facility] [address] [place] [address] Urine Drug Screenon 07-15-19 25 Amphetamines Ql (U) Negative Negative <1000 ng/mL [facility] Barbiturates Screen Ql (U) Negative Negative < 200 ng/mL [facility] Benzodiazepines Ql (U) Negative Negative < 200 ng/mL [facility] Cannabinoids Screen Ql (U) Positive Abnormal Negative < 50 ng/mL [employer] [facility] Cocaine Ql (U) Negative Negative < 300 ng/mL [facility] Drug screen comment (U) [Interp] see below [facility] Comment on above: This method is a scr eening test to detect only these drug classes as part of a medical workup. Confirmatory testing by another method should be ordered if clinically indicated. FENTANYL SCREEN, URINE Negative Negative < 50 ng/mL [facility] Interpretation and review of laboratory results Abnormal [facility] Methadone Screen Ql (U) Negative Negative <300 ng/mL [facility] Opiates Screen Ql (U) Negative Negati ve < 300 ng/mL [facility] oxyCODONE Ql (U) Negative Negative <100 ng/mL [facility] Phencyclidine Ql (U) Negative Negativ e < 25 ng/mL [facility] Propoxyphene Screen Ql (U) Negative Negative <300 ng/mL [facility] CBC With Platelet and Differ entialon 07-13-2024 Basophils (Bld) [#/Vol] 0.1 10*3/uL Normal 0.0-0.2 [facility] Comment on above: Performed By: #### C BCWD #### [facility] [address] [place] [address] Basophils/100 WBC (Bld) 0.6 % Normal [facility] Comment on above: Performed By: #### C BCWD #### [facility] [address] [place] [address] Eosinophils (Bld) [#/Vol] 0.7 10*3/uL Normal 0.0-0.7 [facility] Comment on above: Performed By: #### C BCWD #### [facility] [address] [place] [address] Eosinophils/100 WBC (Bld) 5.2 % Normal [facility] Comment on above: Performed By: #### C BCWD #### [facility] [address] [place] [address] Erythrocyte distribution width (RBC) [Ratio] 12.0 % Normal 11.5-14.5 [facility] Comment on above: Performed By: #### C BCWD #### [facility] [address] [place] [address] Hematocrit (Bld) [Volume fraction] 48.2 % Normal 42.0-52.0 [facility] Comment on above: Performed By: #### C BCWD #### [facility] [address] [place] [address] Hemoglobin (Bld) [Mass/Vol] 16.1 g/dL Normal 14.0-18.0 [facility] Comment on above: Performed By: #### C BCWD #### [facility] [address] [place] [address] Lymphocytes (Bld) [#/Vol] 4.0 10*3/uL Normal 1.0-4.8 [facility] Comment on above: Performed By: #### C BCWD #### [facility] [address] [place] [address] Lymphocytes/100 WBC (Bld) 31.1 % Normal [facility] Comment on above: Performed By: #### C BCWD #### [facility] [address] [place] [address] MCH (RBC) [Entitic mass] 31.2 pg Normal 27.0-31.3 [facility] Comment on above: Performed By: #### C BCWD #### [facility] [address] [place] [address] MCHC 33.4 % Normal 33.0-37.0 [facility] Comment on above: Performed By: #### C BCWD #### [facility] [address] [place] [address] MCV (RBC) [Entitic vol] 93.4 fL Critically high 79.0-92.2 [facility] Comment on above: Performed By: #### C BCWD #### [facility] [address] [place] [address] Monocytes (Bld) [#/Vol] 1.1 10*3/uL Critically high 0.2-0.8 [facility] Comment on above: Performed By: #### C BCWD #### [facility] [address] [place] [address] Monocytes/100 WBC (Bld) 8.5 % Normal [facility] Comment on above: Performed By: #### C BCWD #### [facility] [address] [place] [address] Neutrophils (Bld) [#/Vol] 7.1 10*3/uL Critically high 1.4-6.5 [facility] Comment on above: Performed By: #### C BCWD #### [facility] [address] [place] [address] Neutrophils/100 WBC (Bld) 54.3 % Normal [facility] Comment on above: Performed By: #### C BCWD #### [facility] [address] [place] [address] Platelets (Bld) [#/Vol] 312 10*3/uL Normal 130-400 [facility] Comment on above: Performed By: #### C BCWD #### [facility] [address] [place] [address] RBC (Bld) [#/Vol] 5.16 10*6/uL Normal 4.70-6.10 [facility] Comment on above: Performed By: #### C BCWD #### [facility] [address] [place] [address] WBC (Bld) [#/Vol] 13.0 10*3/uL Critically high 4.8-10.8 [facility] Comment on above: Performed By: #### C BCWD #### [facility] [address] [place] [address] CT KIDNEY WO CONTRASTon 05-0 CT KIDNEY [...] Smith Bullock MD 07/14/24 Final result Normal [facility] CT Kidney WO contraston 05-0 Radiology Study observation (narrative) [facility] Comprehensive Metabolic Pane ashok 07-13-2024 Albumin [Mass/Vol] 4.7 g/dL Critically high 3.5-4.6 [facility] Comment on above: Performed By: #### L ACID #### [facility] [address] [place] [address] ALP [Catalytic activity/Vol] 81 U/L Normal 35-104 [facility] Comment on above: Performed By: #### L ACID #### [facility] [address] [place] [address] ALT [Catalytic activity/Vol] 32 U/L Normal 0-41 [facility] Comment on above: Performed By: #### L ACID #### [facility] [address] [place] [address] Anion gap [Moles/Vol] 12 mmol/L Normal 9-15 [facility] Comment on above: Performed By: #### L ACID #### [facility] [address] [place] [address] AST [Catalytic activity/Vol] 22 U/L Normal 0-40 [facility] Comment on above: Performed By: #### L ACID #### [facility] [address] [place] [address] Bilirubin [Mass/Vol] mg/dL Normal 0.2-0.7 [facility] Comment on above: Performed By: #### L ACID #### [facility] [address] [place] [address] Calcium [Mass/Vol] 9.6 mg/dL Normal 8.5-9.9 [facility] Comment on above: Performed By: #### L ACID #### [facility] [address] [place] [address] Chloride [Moles/Vol] 99 mmol/L Normal 95-107 [facility] Comment on above: Performed By: #### L ACID #### [facility] [address] [place] [address] CO2 [Moles/Vol] 28 mmol/L Normal 20-31 [facility] Comment on above: Performed By: #### L ACID #### [facility] [address] [place] [address] Creatinine [Mass/Vol] 1.08 mg/dL Normal 0.70-1.20 [facility] Comment on above: Performed By: #### L ACID #### [facility] [address] [place] [address] GFR 87.4 Normal >60 [facility] Comment on above: Result Comment: Abbie atric [...] secretion. Performed By: #### L ACID #### [facility] [address] [place] [address] Globulin (S) [Mass/Vol] 3.2 g/dL Normal 2.3-3.5 [facility] Comment on above: Performed By: #### L ACID #### [facility] [address] [place] [address] Glucose [Mass/Vol] 87 mg/dL Normal 70-99 [facility] Comment on above: Performed By: #### L ACID #### [facility] [address] [place] [address] Potassium [Moles/Vol] 4.2 mmol/L Normal 3.4-4.9 [facility] Comment on above: Performed By: #### L ACID #### [facility] [address] [place] [address] Protein [Mass/Vol] 7.9 g/dL Normal 6.3-8.0 [facility] Comment on above: Performed By: #### L ACID #### [facility] [address] [place] [address] Sodium [Moles/Vol] 139 mmol/L Normal 135-144 [facility] Comment on above: Performed By: #### L ACID #### [facility] [facility] [address] [place] [address] Urea nitrogen [Mass/Vol] 25 mg/dL Critically high 6-20 [facility] Comment on above: Performed By: #### L ACID #### [facility] [address] [place] [address] Comprehensive metabolic 2000 panelon 07-13-2024 Albumin [Mass/Vol] 4.7 g/dL High 3.5 - 4.6 g/dL [facility] ALP [Catalytic activity/Vol] 81 U/L 35 - 104 U/L [facility] ALT [Catalytic activity/Vol] 32 U/L 0 - 41 U/L [facility] Anion gap [Moles/Vol] 12 mmol/L [facility] AST [Catalytic activity/Vol] 22 U/L 0 - 40 U/L [facility] Bilirubin [Mass/Vol] mg/dL 0.2 - 0 .7 mg/dL [facility] Calcium [Mass/Vol] 9.6 mg/dL 8.5 - 9.9 mg/dL [facility] Chloride [Moles/Vol] 99 mmol/L [facility] CO2 [Moles/Vol] 28 mmol/L [facility] Creatinine [Mass/Vol] 1.08 mg/dL 0.70 - 1.20 mg/dL [facility] GFR/1.73 sq M.predicted among non-blacks MDRD (S/P/Bld) [Vol rate/Area] 87.4 mL/min/{1.73_m2} 60 - PINF [facility] Comment on above: Pediatric calculator link https://www.kidney.org/professionals/kdoqi/gfr_calculatorped [...] [Mass/Vol] 3.2 g/dL 2.3 - 3.5 g/dL [facility] Glucose [Mass/Vol] 87 mg/dL 70 - 99 mg/dL [facility] Interpretation and review of laboratory results Abnormal [facility] Potassium [Moles/Vol] 4.2 mmol/L [facility] Protein [Mass/Vol] 7.9 g/dL 6.3 - 8.0 g/dL [facility] Sodium [Moles/Vol] 139 mmol/L [facility] Urea nitrogen [Mass/Vol] 25 mg/dL High 6 - 20 mg/dL [facility] Lactate (BldV) [Moles/Vol]on 07-13-2024 [facility] Lactic Acidon 07-13-2024 Lactate (BldV) [Moles/Vol] 1.3 mmol/L 0.5 - 2.2 mmol/L [facility] Lactate [Moles/Vol] 1.3 mmol/L Normal 0.5-2.2 [facility] Comment on above: Performed By: #### L ACID #### [facility] [address] [place] [address] Procalcitoninon 07-13-2024 Procalcitonin IA [Mass/Vol] 0.03 ng/mL 0.00 - 0.15 ng/mL [facility] Comment on above: Suspected Sepsis: Low [...] to determine the patient's Mortality Risk Prognosis (www.rmznln-xjq-klnrxlvkrz.com) In healthy neonates, plasma Procalcitonin (PCT) concentrations increase gradually after , reaching peak values at about 24 hours of age then decrease to normal values below 0.5 ng/mL by 48-72 hours of age. Procalcitonin 0.03 ng/mL Normal 0.00-0.15 [facility] Comment on above: Result Comment: Susp ected [...] to determine the patient's Mortality Risk Prognosis (www.ufdsxu-cpt-swjszuxvov.[employer]) In healthy neonates, plasma Procalcitonin (PCT) concentrations increase gradually after , reaching peak values at about 24 hours of age then decrease to normal values below 0.5 ng/mL by 48-72 hours of age. Performed By: #### P ROCT #### [facility] [address] [place] [address] Procalcitonin IA [Mass/Vol]o n 07-13-2024 [facility] XR CERVICAL SPINE 2-3 VIEWSo n 06-06-2024 XR CERVICAL SPINE 2-3 VIEWS Interpreted By: Sha Foster, STUDY: XR CERVICAL SPINE 2-3 VIEWS; 06/06/2024 11:08 am INDICATION: Signs/Symptoms:Pain. ACCESSION NUMBER(S): [id number] ORDERING CLINICIAN: SHA FOSTER FINDINGS: AP lateral [...] Sha Foster 06/06/2024 3:56 PM Dictation workstation: [id number] [facility] XR Cervical spine 2 or 3 Vie wson 06-06-2024 Interpreted By: Sha Chacon, STUDY: XR CERVICAL SPINE 2-3 VIEWS; 06/06/2024 11:08 am INDICATION: Signs/Symptoms:Pain. ACCESSION NUMBER(S): [id number] ORDERING CLINICIAN: SHA FOSTER FINDINGS: AP lateral [...] Sha Foster 06/06/2024 3:56 PM Dictation workstation: [id number] [facility] Sha Foster MD - 06/06/2024 Interpreted By: Sha Foster, STUDY: XR CERVICAL SPINE 2-3 VIEWS; 06/06/2024 11:08 am INDICATION: Signs/Symptoms:Pain. ACCESSION NUMBER(S): [id number] ORDERING CLINICIAN: SHA FOSTER FINDINGS: AP lateral [...] Sha Foster 06/06/2024 3:56 PM Dictation workstation: [id number] [facility] Work Phone: [facility] Work Phone: Radiology Study observation (narrative) [facility] Work Phone: CT CERVICAL SPINE WO [...] Dorothy Cruz MD 05/19/24 Final result Normal [facility] CT Cervical spine WO contras ton 05-19-2024 No acute abnormality of the cervical spine. [facility] RADIOLOGY EXAMINATION: CT OF THE CERVICAL [...] There is no prevertebral soft tissue swelling. [facility] RADIOLOGY Dorothy Cruz MD - 05/19/2024 [...] No acute abnormality of the cervical spine. [facility] CT Cervical spine WO contras tOrdered By: Dorothy Cruz on 05-19-2024 [facility] Work Phone: CT LUMBAR SPINE WO [...] and L5-S1, with vacuum phenomenon. There is afua-te-jvsolsrn bilateral neural foraminal stenosis at these levels. SOFT TISSUES/RETROPERITONEUM: No paraspinal mass is seen. IMPRESSION: 1. No acute osseous abnormality of the lumbar spine. 2. Degenerative disc disease at L4-L5 and L5-S1. Interpreted by: Dorothy Cruz MD Signed by: Dorothy Cruz MD 05/19/24 Final result Normal [facility] CT Lumbar spine WO contrasto n 05-19-2024 1. No acute osseous abnormality of the lumbar spine. 2. Degenerative disc disease at L4-L5 and L5-S1. [facility] RADIOLOGY EXAMINATION: CT OF THE LUMBAR [...] and L5-S1, with vacuum phenomenon. There is uxnf-ii-lpzjedux bilateral neural foraminal stenosis at these levels. SOFT TISSUES/RETROPERITONEUM: No paraspinal mass is seen. [facility] Dorothy Cruz MD - 05/19/2024 [...] and L5-S1, with vacuum phenomenon. There is hoft-tp-ulxlyshi bilateral neural foraminal stenosis at these levels. SOFT TISSUES/RETROPERITONEUM: No paraspinal mass is seen. IMPRESSION: 1. No acute osseous abnormality of the lumbar spine. 2. Degenerative disc disease at L4-L5 and L5-S1. [facility] No Panel Informationon 05-19 Radiology Study observation (narrative) [facility] XR HIP 2-3 VW W PELVIS [...] Jonnathan Liz MD 05/18/24 Final result Normal [facility] XR Pelvis and Hip - left 2 V iewson 05-18-2024 Normal radiographs o f the left hip and pelvis. [facility] RADIOLOGY EXAMINATION: ONE XRAY VIEW OF [...] appearance. The bowel gas pattern is unremarkable. [facility] RADIOLOGY Jonnathan Liz MD - 05/18/2024 [...] radiographs of the left hip and pelvis. [facility] Radiology Study observation (narrative) [facility] XR Pelvis and Hip - left 2 V iewsOrdered By: Jonnathan Liz on 05-18-2024 [facility] Work Phone: XR CERVICAL SPINE 2-3 VIEWSo n 03-07-2024 XR CERVICAL SPINE 2-3 VIEWS Interpreted By: Sha Foster, STUDY: XR CERVICAL SPINE 2-3 VIEWS; 03/07/2024 10:52 am INDICATION: Signs/Symptoms:neck pain. ACCESSION NUMBER(S): [id number] ORDERING CLINICIAN: SHA FOSTER FINDINGS: AP lateral [...] Sha Foster 03/07/2024 11:17 AM Dictation workstation: [id number] [facility] XR Cervical spine 2 or 3 Vie wson 03-07-2024 Interpreted By: Sha Chacon, STUDY: XR CERVICAL SPINE 2-3 VIEWS; 03/07/2024 10:52 am INDICATION: Signs/Symptoms:neck pain. ACCESSION NUMBER(S): [id number] ORDERING CLINICIAN: SHA FOSTER FINDINGS: AP lateral [...] Sha Foster 03/07/2024 11:17 AM Dictation workstation: [id number] [facility] Sha Foster MD - 03/07/2024 Interpreted By: Sha Foster, STUDY: XR CERVICAL SPINE 2-3 VIEWS; 03/07/2024 10:52 am INDICATION: Signs/Symptoms:neck pain. ACCESSION NUMBER(S): [id number] ORDERING CLINICIAN: SHA FOSTER FINDINGS: AP lateral [...] Sha Foster 03/07/2024 11:17 AM Dictation workstation: [id number] [facility] Work Phone: [facility] Work Phone: Radiology Study observation (narrative) [facility] Work Phone: Basic metabolic 2000 panelon 02-26-2024 Anion gap [Moles/Vol] 10 mmol/L 10 - 2 0 mmol/L [facility] Calcium [Mass/Vol] 8.9 mg/dL 8.6 - 10. 3 mg/dL [facility] Chloride [Moles/Vol] 102 mmol/L 98 - 10 7 mmol/L [facility] CO2 [Moles/Vol] 30 mmol/L 21 - 32 mmol/L [facility] Creatinine [Mass/Vol] 1.04 mg/dL 0.50 - 1.30 mg/dL [facility] eGFR - PINF [facility] Comment on above: Calculations of katie mated GFR are performed using the 2020 CKD-EPI Study Refit equation without the race variable for the IDMS-Traceable creatinine methods. https://jasn.asnjournals.org/content//ASN.634721 0643 Glucose [Mass/Vol] 124 mg/dL High 74 - 99 mg/dL [facility] Interpretation and review of laboratory results Abnormal [facility] Potassium [Moles/Vol] 4.2 mmol/L 3.5 - 5.3 mmol/L [facility] Sodium [Moles/Vol] 138 mmol/L 136 - 145 mmol/L [facility] Urea nitrogen [Mass/Vol] 11 mg/dL 6 - 23 mg/dL [facility] Anion gap [Moles/Vol] 10 mmol/L Normal 10-20 [facility] Comment on above: Performed By: #### 2 4323-8 #### AVTARIBELIKAMERON LARKIN ([id number]) [facility] ([facility]) [address] [place] [address] Calcium [Mass/Vol] 8.9 mg/dL Normal 8.6-10.3 [facility] Comment on above: Performed By: #### 2 4323-8 #### AVTARIBELIKAMERON LARKIN ([id number]) [facility] [address] [place] [address] Chloride [Moles/Vol] 102 mmol/L Normal 98-107 [facility] Comment on above: Performed By: #### 2 4323-8 #### ANAIBELIKAMERON ZOHRA BANDAR ([id number]) [facility] ([facility] [address] [place] [address] CO2 [Moles/Vol] 30 mmol/L Normal 21-32 [facility] Comment on above: Performed By: #### 2 4323-8 #### ANAIBELIKAMERON ZOHRA BANDAR ([id number]) [facility] [address] [place] [address] Creatinine [Mass/Vol] 1.04 mg/dL Normal 0.50-1.30 [facility] Comment on above: Performed By: #### 2 4323-8 #### ESTELITA LARKIN ([id number]) [facility] ([facility]) [address] [place] [address] GFR/1.73 sq M.predicted MDRD (S/P/Bld) [Vol rate/Area] mL/min/{1.73_m2} Normal >60 Comment on above: Result Comment: Calc ulations of estimated GFR are performed using the 2020 CKD-EPI Study Refit equation without the race variable for the IDMS-Traceable creatinine methods. https://jasn.asnjournals.org/content/early/ASN.499798 5489 Performed By: #### 2 4323-8 #### ESTELITA LARKIN ([id number]) [facility] ([facility]) [address] [place] [address] Glucose [Mass/Vol] 124 mg/dL High 74-99 [facility] Comment on above: Performed By: #### 2 4323-8 #### ESTELITA LARKIN ([id number]) [facility] ([facility]) [address] [place] [address] Potassium [Moles/Vol] 4.2 mmol/L Normal 3.5-5.3 [facility] Comment on above: Performed By: #### 2 4323-8 #### ESTELITA LARKIN ([id number]) [facility]) [address] [place] [address] Sodium [Moles/Vol] 138 mmol/L Normal 136-145 [facility] Comment on above: Performed By: #### 2 4323-8 #### ESTELITA LARKIN ([id number]) [facility] ([facility]) [address] [place] [address] 10562 Urea nitrogen [Mass/Vol] 11 mg/dL Normal 6-23 Comment on above: Performed By: #### 2 4323-8 #### ESTELITA LARKIN ([id number]) [facility] [address] [place] [address] CBC panel Auto (Bld)on 02-25 Erythrocyte distribution width (RBC) [Ratio] 11.9 % 11.5 - 14.5 % [facility] Hematocrit (Bld) [Volume fraction] 40.5 % Low 41.0 - 52.0 % [facility] Hemoglobin (Bld) [Mass/Vol] 13.2 g/dL Low 13.5 - 17.5 g/dL [facility] Interpretation and review of laboratory results Abnormal [facility] MCH (RBC) [Entitic mass] 31.8 pg 26.0 - 34.0 pg [facility] MCHC (RBC) [Mass/Vol] 32.6 g/dL 32.0 - 36.0 g/dL [facility] MCV (RBC) [Entitic vol] 98 fL 80 - 100 fL [facility] Nucleated RBC/100 WBC (Bld) [Ratio] 0 % [facility] Platelets (Bld) [#/Vol] 267 10*3/uL [facility] RBC (Bld) [#/Vol] 4.15 10*6/uL Low [facility] WBC (Bld) [#/Vol] 9.6 10*3/uL [facility] Erythrocyte distribution width (RBC) [Ratio] 11.9 % Normal 11.5-14.5 Comment on above: Performed By: #### 5 902-2 #### ESTELITA LARKIN ([id number]) [facility] [address] [place] [address] Hematocrit (Bld) [Volume fraction] 40.5 % Low 41.0-52.0 Comment on above: Performed By: #### 5 902-2 #### ESTELITA LARKIN ([id number]) [facility]) [address] [place] [address] Hemoglobin (Bld) [Mass/Vol] 13.2 g/dL Low 13.5-17.5 Comment on above: Performed By: #### 5 902-2 #### ESTELITA LARKIN ([id number]) [facility]) [address] [place] [address] 53263 MCH (RBC) [Entitic mass] 31.8 pg Normal 26.0-34.0 Comment on above: Performed By: #### 5 902-2 #### ESTELITA LARKIN ([id number]) [facility]) [address] [place] [address] 08146 MCHC (RBC) [Mass/Vol] 32.6 g/dL Normal 32.0-36.0 [facility] Comment on above: Performed By: #### 5 902-2 #### ESTELITA LARKIN ([id number]) [facility]) [address] [place] [address] 58351 MCV (RBC) [Entitic vol] 98 fL Normal 80-100 Comment on above: Performed By: #### 5 902-2 #### ESTELITA LARKIN ([id number]) [facility] ([facility]) [address] [place] [address] 10372 Nucleated RBC/100 WBC (Bld) [Ratio] 0.0 /100 WBCs Normal 0.0-0.0 Comment on above: Performed By: #### 5 902-2 #### ESTELITA LARKIN ([id number]) [facility] ([facility]) [address] [place] [address]9550 Platelets (Bld) [#/Vol] 267 x10*3/uL Normal 150-450 Comment on above: Performed By: #### 5 902-2 #### ESTELITA LARKIN ([id number]) [facility] ([facility]) [address] [place] [address] 50766 RBC (Bld) [#/Vol] 4.15 x10*6/uL Low 4.50-5.90 [facility] Comment on above: Performed By: #### 5 902-2 #### ESTELITA LARKIN ([id number]) [facility] [address] [place] [address] WBC (Bld) [#/Vol] 9.6 x10*3/uL Normal 4.4-11.3 [facility] Comment on above: Performed By: #### 5 902-2 #### ESTELITA LARKIN ([id number]) [facility] [address] [place] [address] Bacteria identified Cx Nom ( Unsp spec)Ordered By: Radha Joyner on 02-25-2024 Interpretation and review of laboratory results Abnormal [facility] Microscopic observation Gram stain Nom (Unsp spec) (2+) Few Polymorphonuclear leukocytes Abnormal [facility] Microscopic observation Gram stain Nom (Unsp spec) Positive Abnormal [facility] Basic metabolic 2000 panelon 02-25-2024 Anion gap [Moles/Vol] 14 mmol/L 10 - 2 0 mmol/L [facility] Calcium [Mass/Vol] 8.7 mg/dL 8.6 - 10. 3 mg/dL [facility] Chloride [Moles/Vol] 99 mmol/L 98 - 10 7 mmol/L [facility] CO2 [Moles/Vol] 25 mmol/L 21 - 32 mmol/L [facility] Creatinine [Mass/Vol] 1.15 mg/dL 0.50 - 1.30 mg/dL [facility] GFR/1.73 sq M.predicted among non-blacks MDRD (S/P/Bld) [Vol rate/Area] 81 mL/min/{1.73_m2} - PINF [facility] Comment on above: Calculations of katie mated GFR are performed using the 2020 CKD-EPI Study Refit equation without the race variable for the IDMS-Traceable creatinine methods. https://jasn.asnjournals.org/content//ASN.257151 8985 Glucose [Mass/Vol] 176 mg/dL High 74 - 99 mg/dL [facility] Interpretation and review of laboratory results Abnormal [facility] Potassium [Moles/Vol] 4 mmol/L 3.5 - 5.3 mmol/L [facility] Sodium [Moles/Vol] 134 mmol/L Low 136 - 145 mmol/L [facility] Urea nitrogen [Mass/Vol] 17 mg/dL 6 - 23 mg/dL [facility] Anion gap [Moles/Vol] 14 mmol/L Normal 10-20 [facility] Comment on above: Performed By: #### 5 902-2 #### ESTELITA LARKIN ([id number]) [facility]) [address] [place] [address] Calcium [Mass/Vol] 8.7 mg/dL Normal 8.6-10.3 [facility] Comment on above: Performed By: #### 5 902-2 #### ESTELITA LARKIN ([id number]) [facility] ([facility]) [address] [place] [address] 83485 Chloride [Moles/Vol] 99 mmol/L Normal 98-107 [facility] Comment on above: Performed By: #### 5 902-2 #### ESTELITA LARKIN ([id number]) [facility]) [address] [place] [address] 11489 CO2 [Moles/Vol] 25 mmol/L Normal 21-32 [facility] Comment on above: Performed By: #### 5 902-2 #### ESTEILTA LARKIN ([id number]) [facility]) [address] [place] [address] Creatinine [Mass/Vol] 1.15 mg/dL Normal 0.50-1.30 [facility] Comment on above: Performed By: #### 5 902-2 #### ESTELITA LARKIN ([id number]) [facility] ([facility]) [address] [place] [address] Glomerular filtration rate/1.73 sq M.predicted 81 mL/min/1.73m*2 Normal >60 Comment on above: Result Comment: Calc ulations of estimated GFR are performed using the 2020 CKD-EPI Study Refit equation without the race variable for the IDMS-Traceable creatinine methods. https://jasn.asnjournals.org/content//ASN.649634 8151 Performed By: #### 5 902-2 #### ESTELITA LARKIN ([id number]) [facility]) [address] [place] [address] 36996 Glucose [Mass/Vol] 176 mg/dL High 74-99 [facility] Comment on above: Performed By: #### 5 902-2 #### ESTELITA LARKIN ([id number]) [facility]) [address] [place] [address] 42272 Potassium [Moles/Vol] 4.0 mmol/L Normal 3.5-5.3 [facility] Comment on above: Performed By: #### 5 902-2 #### ESTELITA LARKIN ([id number]) [facility]) [address] [place] [address] 71450 Sodium [Moles/Vol] 134 mmol/L Low 136-145 [facility] Comment on above: Performed By: #### 5 902-2 #### ESTELITA LARKIN ([id number]) [facility]) [address] [place] [address] 30630 Urea nitrogen [Mass/Vol] 17 mg/dL Normal 6-23 Comment on above: Performed By: #### 5 902-2 #### ESTELITA LARKIN ([id number]) [facility]) [address] [place] [address] 29063 CBC panel Auto (Bld)on 02-24 Erythrocyte distribution width (RBC) [Ratio] 11.5 % 11.5 - 14.5 % [facility] Hematocrit (Bld) [Volume fraction] 38.4 % Low 41.0 - 52.0 % [facility] Hemoglobin (Bld) [Mass/Vol] 13.1 g/dL Low 13.5 - 17.5 g/dL [facility] Interpretation and review of laboratory results Abnormal [facility] MCH (RBC) [Entitic mass] 32.3 pg 26.0 - 34.0 pg [facility] MCHC (RBC) [Mass/Vol] 34.1 g/dL 32.0 - 36.0 g/dL [facility] MCV (RBC) [Entitic vol] 95 fL 80 - 100 fL [facility] Nucleated RBC/100 WBC (Bld) [Ratio] 0 % [facility] Platelets (Bld) [#/Vol] 261 10*3/uL [facility] RBC (Bld) [#/Vol] 4.05 10*6/uL Low [facility] WBC (Bld) [#/Vol] 15.5 10*3/uL High [facility] Erythrocyte distribution width (RBC) [Ratio] 11.5 % Normal 11.5-14.5 Comment on above: Performed By: #### 5 902-2 #### ESTELITA LARKIN ([id number]) [facility]) [address] [place] [address]781 Hematocrit (Bld) [Volume fraction] 38.4 % Low 41.0-52.0 Comment on above: Performed By: #### 5 902-2 #### ESTELITA LARKIN ([id number]) [facility]) [address] [place] [address] 62153 Hemoglobin (Bld) [Mass/Vol] 13.1 g/dL Low 13.5-17.5 Comment on above: Performed By: #### 5 902-2 #### ESTELITA LARKIN ([id number]) [facility]) [address] [place] [address] 62972 MCH (RBC) [Entitic mass] 32.3 pg Normal 26.0-34.0 Comment on above: Performed By: #### 5 902-2 #### ESTELITA LARKIN ([id number]) [facility]) [address] [place] [address] 84602 MCHC (RBC) [Mass/Vol] 34.1 g/dL Normal 32.0-36.0 [facility] Comment on above: Performed By: #### 5 902-2 #### ESTELITA LARKIN ([id number]) [facility]) [address] [place] [address] 25748 MCV (RBC) [Entitic vol] 95 fL Normal 80-100 Comment on above: Performed By: #### 5 902-2 #### ESTELITA LARKIN ([id number]) [facility]) [address] [place] [address] 95311 Nucleated RBC/100 WBC (Bld) [Ratio] 0.0 /100 WBCs Normal 0.0-0.0 Comment on above: Performed By: #### 5 902-2 #### ESTELITA LARKIN ([id number]) [facility]) [address] [place] [address] 61939 Platelets (Bld) [#/Vol] 261 x10*3/uL Normal 150-450 Comment on above: Performed By: #### 5 902-2 #### ESTELITA LARKIN ([id number]) [facility]) [address] [place] [address] 62796 RBC (Bld) [#/Vol] 4.05 x10*6/uL Low 4.50-5.90 [facility] Comment on above: Performed By: #### 5 902-2 #### ESTELITA LARKIN ([id number]) [facility]) [address] [place] [address] 97330 WBC (Bld) [#/Vol] 15.5 x10*3/uL High 4.4-11.3 [facility] Comment on above: Performed By: #### 5 902-2 #### ESTELITA LARKIN ([id number]) [facility] [address] [place] [address] No Panel Informationon 02-24 [facility] Tissue/Wound Culture/SmearOr dered By: Radha Joyner on 02-25-2024 Bacteria identified Cx Nom (Unsp spec) (4+) Abundant Methicillin Resistant Staphylococcus aureus (MRSA) Abnormal [facility] Comment on above: Methicillin (Oxacill in) resistant Staphylococci are resistant to all currently available Penicillins, Beta-lactam/Beta-lactamase inhibitor combinations (including Ampicillin/Sulbactam, Amoxicillin/Clavulanate and Pipercillin/Tazobactam), Carbapenems and Cephalosporins (except Ceftaroline). Vancomycinon 02-25-2024 Vancomycin [Mass/Vol] 13.7 ug/mL 5.0 - 20.0 ug/mL [facility] Vancomycin [Mass/Vol] 13.7 ug/mL Normal 5.0-20.0 [facility] Comment on above: Order Comment: [...] By: #### 5 902-2 #### ESTELITA LARKIN ([id number]) [facility] [address] [place] [address] 83863 Vancomycin [Mass/Vol]on 02-12 Interpretation and review of laboratory results Normal [facility] Vancomycin levels can be monitored according [...] 30.0-40.0 ug/mL Trough (all ages): 10.0-20.0 ug/mL [facility] Basic metabolic 2000 panelon 02-24-2024 Anion gap [Moles/Vol] 10 mmol/L 10 - 2 0 mmol/L [facility] Calcium [Mass/Vol] 8.8 mg/dL 8.6 - 10. 3 mg/dL [facility] Chloride [Moles/Vol] 104 mmol/L 98 - 10 7 mmol/L [facility] CO2 [Moles/Vol] 29 mmol/L 21 - 32 mmol/L [facility] Creatinine [Mass/Vol] 1.17 mg/dL 0.50 - 1.30 mg/dL [facility] GFR/1.73 sq M.predicted among non-blacks MDRD (S/P/Bld) [Vol rate/Area] 80 mL/min/{1.73_m2} - PINF [facility] Comment on above: Calculations of katie mated GFR are performed using the 2020 CKD-EPI Study Refit equation without the race variable for the IDMS-Traceable creatinine methods. https://jasn.asnjournals.org/content//ASN.736553 7918 Glucose [Mass/Vol] 108 mg/dL High 74 - 99 mg/dL [facility] Interpretation and review of laboratory results Abnormal [facility] Potassium [Moles/Vol] 3.9 mmol/L 3.5 - 5.3 mmol/L [facility] Sodium [Moles/Vol] 139 mmol/L 136 - 145 mmol/L [facility] Urea nitrogen [Mass/Vol] 13 mg/dL 6 - 23 mg/dL [facility] Anion gap [Moles/Vol] 10 mmol/L Normal 10-20 [facility] Comment on above: Order Comment: Savannah long obtain BMP on this date xxxxxx, call your PCP to review results/treatment plansThank you Performed By: #### 5 902-2 #### ESTELITA LARKIN ([id number]) [facility] ([facility]) [address] [place] [address] 01718 Calcium [Mass/Vol] 8.8 mg/dL Normal 8.6-10.3 [facility] Comment on above: Order Comment: Savannah long obtain BMP on this date xxxxxx, call your PCP to review results/treatment plansThank you Performed By: #### 5 902-2 #### ESTELITA LARKIN ([id number]) [facility] ([facility]) [address] [place] [address] 38075 Chloride [Moles/Vol] 104 mmol/L Normal 98-107 [facility] Comment on above: Order Comment: Savannah long obtain BMP on this date xxxxxx, call your PCP to review results/treatment plansThank you Performed By: #### 5 902-2 #### ESTELITA LARKIN ([id number]) [facility] ([facility]) [address] [place] [address] 72925 CO2 [Moles/Vol] 29 mmol/L Normal 21-32 [facility] Comment on above: Order Comment: Savannah long obtain BMP on this date xxxxxx, call your PCP to review results/treatment plansThank you Performed By: #### 5 902-2 #### ESTELITA LARKIN ([id number]) [facility] ([facility]) [address] [place] [address] 53006 Creatinine [Mass/Vol] 1.17 mg/dL Normal 0.50-1.30 [facility] Comment on above: Order Comment: Savannah long obtain BMP on this date xxxxxx, call your PCP to review results/treatment plansThank you Performed By: #### 5 902-2 #### ESTELITA LARKIN ([id number]) [facility] ([facility]) [address] [place] [address] 02287 Glomerular filtration rate/1.73 sq M.predicted 80 mL/min/1.73m*2 Normal >60 Comment on above: Order Comment: Savannah long obtain BMP on this date xxxxxx, call your PCP to review results/treatment plansThank you Result Comment: Calc ulations of estimated GFR are performed using the 2020 CKD-EPI Study Refit equation without the race variable for the IDMS-Traceable creatinine methods. https://jasn.asnjournals.org/content/early/ASN.369674 6345 Performed By: #### 5 902-2 #### ESTELITA LARKIN ([id number]) [facility] ([facility]) [address] [place] [address] 56582 Glucose [Mass/Vol] 108 mg/dL High 74-99 [facility] Comment on above: Order Comment: Savannah long obtain BMP on this date xxxxxx, call your PCP to review results/treatment plansThank you Performed By: #### 5 902-2 #### ESTELITA LARKIN ([id number]) [facility] ([facility]) [address] [place] [address] 08008 Potassium [Moles/Vol] 3.9 mmol/L Normal 3.5-5.3 [facility] Comment on above: Order Comment: Savannah long obtain BMP on this date xxxxxx, call your PCP to review results/treatment plansThank you Performed By: #### 5 902-2 #### ESTELITA LARKIN ([id number]) [facility] ([facility]) [address] [place] [address] 10101 Sodium [Moles/Vol] 139 mmol/L Normal 136-145 [facility] Comment on above: Order Comment: Savannah long obtain BMP on this date xxxxxx, call your PCP to review results/treatment plansThank you Performed By: #### 5 902-2 #### ESTELITA LARKIN ([id number]) [facility] ([facility]) [address] [place] [address] 41312 Urea nitrogen [Mass/Vol] 13 mg/dL Normal 6-23 Comment on above: Order Comment: Savannah davalos BMP on this date xxxxxx, call your PCP to review results/treatment plansThank you Performed By: #### 5 902-2 #### ESTELITA LARKIN ([id number]) [facility] ([facility]) [address] [place] [address] 04247 CBC panel Auto (Bld)on 02-23 Erythrocyte distribution width (RBC) [Ratio] 11.6 % 11.5 - 14.5 % [facility] Hematocrit (Bld) [Volume fraction] 40.2 % Low 41.0 - 52.0 % [facility] Hemoglobin (Bld) [Mass/Vol] 13.3 g/dL Low 13.5 - 17.5 g/dL [facility] Interpretation and review of laboratory results Abnormal [facility] MCH (RBC) [Entitic mass] 32 pg 26.0 - 34.0 pg [facility] MCHC (RBC) [Mass/Vol] 33.1 g/dL 32.0 - 36.0 g/dL [facility] MCV (RBC) [Entitic vol] 97 fL 80 - 100 fL [facility] Nucleated RBC/100 WBC (Bld) [Ratio] 0 % [facility] Platelets (Bld) [#/Vol] 235 10*3/uL [facility] RBC (Bld) [#/Vol] 4.15 10*6/uL [facility] WBC (Bld) [#/Vol] 7.5 10*3/uL [facility] Erythrocyte distribution width (RBC) [Ratio] 11.6 % Normal 11.5-14.5 Comment on above: Performed By: #### 5 902-2 #### ESTELITA LARKIN ([id number]) [facility] ([facility]) [address] [place] [address] 20444 Hematocrit (Bld) [Volume fraction] 40.2 % Low 41.0-52.0 Comment on above: Performed By: #### 5 902-2 #### ESTELITA LARKIN ([id number]) [facility] ([facility]) [address] [place] [address] 93227 Hemoglobin (Bld) [Mass/Vol] 13.3 g/dL Low 13.5-17.5 Comment on above: Performed By: #### 5 902-2 #### ESTELITA LARKIN ([id number]) [facility] ([facility]) [address] [place] [address] 54759 MCH (RBC) [Entitic mass] 32.0 pg Normal 26.0-34.0 Comment on above: Performed By: #### 5 902-2 #### ESTELITA LARKIN ([id number]) [facility] ([facility]) [address] [place] [address] 20445 MCHC (RBC) [Mass/Vol] 33.1 g/dL Normal 32.0-36.0 [facility] Comment on above: Performed By: #### 5 902-2 #### ESTELITA LARKIN ([id number]) [facility] ([facility]) [address] [place] [address] 52139 MCV (RBC) [Entitic vol] 97 fL Normal 80-100 Comment on above: Performed By: #### 5 902-2 #### ESTELITA LARKIN ([id number]) [facility] ([facility]) [address] [place] [address] 20320 Nucleated RBC/100 WBC (Bld) [Ratio] 0.0 /100 WBCs Normal 0.0-0.0 Comment on above: Performed By: #### 5 902-2 #### ESTELITA LARKIN ([id number]) [facility] ([facility]) [address] [place] [address] 23864 Platelets (Bld) [#/Vol] 235 x10*3/uL Normal 150-450 Comment on above: Performed By: #### 5 902-2 #### ESTELITA LARKIN ([id number]) [facility] ([facility]) [address] [place] [address] RBC (Bld) [#/Vol] 4.15 x10*6/uL Low 4.50-5.90 [facility] Comment on above: Performed By: #### 5 902-2 #### ESTELITA LARKIN ([id number]) [facility] ([facility]) [address] [place] [address] WBC (Bld) [#/Vol] 7.5 x10*3/uL Normal 4.4-11.3 [facility] Comment on above: Performed By: #### 5 902-2 #### ESTELITA LARKIN ([id number]) [facility] (EM) [address] [place] [address] 33718 FL FLUORO IMAGES NO CHARGEon 02-24-2024 FL FLUORO IMAGES NO CHARGE These images are not reportable by radiology and will not be interpreted by Radiologists. Normal OPERATIVE IMAGESon 4 OPERATIVE IMAGES Please see OpNote on Notes tab for findings. Normal Operative Imageson 4 Please see OpNote on Notes tab for findings. IMAGING Radiology Study observation (narrative) [facility] Work Phone: Operative ImagesOrdered By: Generic Optime on 02-24-2024 [facility] SST TOPon 02-24-2024 Extra Tube Hold for add-ons. [facility] Comment on above: Auto resulted. [facility] XR tomography Unspecified shamika dy regionon 02-24-2024 These images are not reportable by radiology and will not be interpreted by Radiologists. IMAGING Bacteria identifiedon 2023 Bacteria identified Cx Nom (Unsp spec) Test: Tissue/Wound Culture/Smear Specimen Source: Wound/Tissue Specimen Type: Tissue/Biopsy Specimen Date: 02/23/2024 0650 Result Date: 02/25/2024 0926 Result Status: Final result Abnormal: Yes Resulting Lab: [facility] [address] [facility] [address] CULTURE (4+) Abundant Methicillin Resistant Staphylococcus aureus [...] ug/ml Susceptible VANCOMYCIN 1.000 ug/ml Susceptible Abnormal Comment on above: Performed By: #### 5 902-2 #### ESTELITA LARKIN ([id number]) [facility] ([facility]) [address] [place] [address] 64951 ECG 12-LEADon 02-23-2024 ECG 12-LEAD Ventricular Rate 49 Atrial Rate 49 P-R Interval 156 QRS Duration 88 Q-T Interval 452 QTC Calculation(Bazett) 408 P Dunedin 38 R Dunedin 53 T Dunedin 48 QRS Count 8 Q Onset 224 P Onset 146 P Offset 202 T Offset 450 QTC Fredericia 422 Diagnosis Sinus bradycardia with sinus arrhythmia Otherwise normal ECG When compared with ECG of 16-OCT-2015 11:18, No significant change was found Confirmed by Kris Segovia ([id number]) on 02/27/2024 10:05:52 AM Normal [facility] Lavly Topon 02-23-2024 Extra Tube Hold for add-ons. [facility] Comment on above: Auto resulted. [facility] Vancomycinon 02-23-2024 Vancomycin [Mass/Vol] 7.9 ug/mL 5.0 - 20.0 ug/mL [facility] Vancomycin [Mass/Vol] 7.9 ug/mL Normal 5.0-20.0 [facility] Comment on above: Order Comment: [...] By: #### 5 902-2 #### ESTELITA LARKIN ([id number]) [facility] ([facility] [address] [place] [address] 20900 Vancomycin [Mass/Vol] 16.3 ug/mL 5.0 - 20.0 ug/mL [facility] Vancomycin [Mass/Vol] 16.3 ug/mL Normal 5.0-20.0 [facility] Comment on above: Order Comment: [...] By: #### 2 0578-1 #### ESTELITA LARKIN ([id number]) [facility] (EM) [address] [place] [address] 12669 Vancomycin [Mass/Vol]on 02-12 Interpretation and review of laboratory results Normal [facility] Vancomycin levels can be monitored according [...] 30.0-40.0 ug/mL Trough (all ages): 10.0-20.0 ug/mL [facility] Interpretation and review of laboratory results [facility] Vancomycin levels can be monitored according [...] 30.0-40.0 ug/mL Trough (all ages): 10.0-20.0 ug/mL [facility] Bacteria identifiedon 2023 Bacteria identified Cx Nom (Bld) Test: Blood Culture Specimen Source: Peripheral Venipuncture Specimen Type: Blood culture Specimen Date: 02/22/20242035 Result Date: 02/27/2024301 Result Status: Final result Abnormal: No Resulting Lab: [facility] [address] [place] [address] CULTURE No growth at 4 days - FINAL REPORT [facility] Comment on above: Performed By: #### 6 00-7 #### SERENE Sandra ([id number]) [facility] ([facility]) [address] [place] [address] Blood type and Indirect anti body screen panel (Bld)on 02-22-2024 ABO group Nom (Bld) A [facility] Blood group antibody screen Ql Negative [facility] D Ag Ql (Bld) Positive [facility] ABO group Nom (Bld) A Normal [facility] Comment on above: Performed By: #### 3 4532-2 #### ESTELITA LARKIN ([id number]) [facility] ([facility]) [address] [place] [address] Blood group antibody screen Ql Negative [facility] Comment on above: Performed By: #### 3 4532-2 #### ESTELITA LARKIN ([id number]) [facility] ([facility]) [address] [place] [address] D Ag Ql (Bld) Positive [facility] Comment on above: Performed By: #### 3 4532-2 #### ESTELITA LARKIN ([id number]) [facility] ([facility]) [address] C reactive proteinon 02-21- 024 CRP [Mass/Vol] 1.16 mg/dL High <1.00 Comment on above: Performed By: #### 1 988-5 #### ESTELITA LARKIN ([id number]) [facility] ([facility]) [address] [place] [address] C-reactive proteinon 024 CRP [Mass/Vol] 1.16 mg/dL High NINF - 1.00 mg/dL [facility] CBC W Auto Differential pane l (Bld)on 02-22-2024 Basophils (Bld) [#/Vol] 0.05 10*3/uL [facility] Basophils/100 WBC (Bld) 0.4 % 0.0 - 2.0 % [facility] Eosinophils (Bld) [#/Vol] 0.21 10*3/uL [facility] Eosinophils/100 WBC (Bld) 1.6 % 0.0 - 6.0 % [facility] Erythrocyte distribution width (RBC) [Ratio] 11.7 % 11.5 - 14.5 % [facility] Hematocrit (Bld) [Volume fraction] 41.6 % 41.0 - 52.0 % [facility] Hemoglobin (Bld) [Mass/Vol] 14.3 g/dL 13.5 - 17.5 g/dL [facility] Immature granulocytes (Bld) [#/Vol] 0.06 10*3/uL [facility] Immature granulocytes/100 WBC (Bld) 0.5 % 0.0 - 0.9 % [facility] Comment on above: Immature Granulocyte Count (IG) includes promyelocytes, myelocytes and metamyelocytes but does not include bands. Percent differential counts (%) should be interpreted in the context of the absolute cell counts (cells/UL). Interpretation and review of laboratory results Abnormal [facility] Lymphocytes (Bld) [#/Vol] 2.31 10*3/uL [facility] Lymphocytes/100 WBC (Bld) 17.7 % 13.0 - 44.0 % [facility] MCH (RBC) [Entitic mass] 32.2 pg 26.0 - 34.0 pg [facility] MCHC (RBC) [Mass/Vol] 34.4 g/dL 32.0 - 36.0 g/dL [facility] MCV (RBC) [Entitic vol] 94 fL 80 - 100 fL [facility] Monocytes (Bld) [#/Vol] 0.95 10*3/uL [facility] Monocytes/100 WBC (Bld) 7.3 % 2.0 - 10.0 % [facility] Neutrophils (Bld) [#/Vol] 9.46 10*3/uL High [facility] Comment on above: Percent differential counts (%) should be interpreted in the context of the absolute cell counts (cells/uL). Neutrophils/100 WBC (Bld) 72.5 % 40.0 - 80.0 % [facility] Nucleated RBC/100 WBC (Bld) [Ratio] 0 % [facility] Platelets (Bld) [#/Vol] 262 10*3/uL [facility] RBC (Bld) [#/Vol] 4.44 10*6/uL [facility] WBC (Bld) [#/Vol] 13 10*3/uL [facility] Basophils (Bld) [#/Vol] 0.05 x10*3/uL Normal 0.00-0.10 Comment on above: Performed By: #### 5 7021-8 #### ESTELITA LARKIN ([id number]) [facility] ([facility]) [address] [place] [address] 28465 Basophils/100 WBC (Bld) 0.4 % Normal 0.0-2.0 Comment on above: Performed By: #### 5 7021-8 #### ESTELITA LARKIN ([id number]) [facility] ([facility]) [address] [place] [address] 62382 Eosinophils (Bld) [#/Vol] 0.21 x10*3/uL Normal 0.00-0.70 Comment on above: Performed By: #### 5 7021-8 #### ESTELITA LARKIN ([id number]) [facility] ([facility]) [address] [place] [address] 45003 Eosinophils/100 WBC (Bld) 1.6 % Normal 0.0-6.0 Comment on above: Performed By: #### 5 7021-8 #### ESTELITA LARKIN ([id number]) [facility] ([facility]) [address] [place] [address] 99847 Erythrocyte distribution width (RBC) [Ratio] 11.7 % Normal 11.5-14.5 Comment on above: Performed By: #### 5 7021-8 #### ESTELITA LARKIN ([id number]) [facility] ([facility]) [address] [place] [address] 97616 Hematocrit (Bld) [Volume fraction] 41.6 % Normal 41.0-52.0 Comment on above: Performed By: #### 5 7021-8 #### ESTELITA LARKIN ([id number]) [facility] ([facility]) [address] [place] [address] 64916 Hemoglobin (Bld) [Mass/Vol] 14.3 g/dL Normal 13.5-17.5 Comment on above: Performed By: #### 5 7021-8 #### ESTELITA LARKIN ([id number]) [facility] ([facility]) [address] [place] [address] 83671 Immature granulocytes (Bld) [#/Vol] 0.06 x10*3/uL Normal 0.00-0.70 Comment on above: Performed By: #### 5 7021-8 #### ESTELITA LARKIN ([id number]) [facility] ([facility]) [address] [place] [address] 08567 Immature granulocytes/100 WBC (Bld) 0.5 % Normal 0.0-0.9 Comment on above: Result Comment: Tamiko ture Granulocyte Count (IG) includes promyelocytes, myelocytes and metamyelocytes but does not include bands. Percent differential counts (%) should be interpreted in the context of the absolute cell counts (cells/UL). Performed By: #### 5 7021-8 #### ESTELITA LARKIN ([id number]) [facility] ([facility]) [address] [place] [address] 85916 Lymphocytes (Bld) [#/Vol] 2.31 x10*3/uL Normal 1.20-4.80 Comment on above: Performed By: #### 5 7021-8 #### ESTELITA LARKIN ([id number]) [facility] ([facility]) [address] [place] [address] 25651 Lymphocytes/100 WBC (Bld) 17.7 % Normal 13.0-44.0 Comment on above: Performed By: #### 5 7021-8 #### ESTELITA LARKIN ([id number]) [facility] ([facility]) [address] [place] [address] 29792 MCH (RBC) [Entitic mass] 32.2 pg Normal 26.0-34.0 Comment on above: Performed By: #### 5 7021-8 #### ESTELITA LARKIN ([id number]) [facility] ([facility]) [address] [place] [address] 89764 MCHC (RBC) [Mass/Vol] 34.4 g/dL Normal 32.0-36.0 [facility] Comment on above: Performed By: #### 5 7021-8 #### ESTELITA LARKIN ([id number]) [facility] ([facility]) [address] [place] [address] 72289 MCV (RBC) [Entitic vol] 94 fL Normal 80-100 Comment on above: Performed By: #### 5 7021-8 #### ESTELITA LARKIN ([id number]) [facility] ([facility]) [address] [place] [address] 75462 Monocytes (Bld) [#/Vol] 0.95 x10*3/uL Normal 0.10-1.00 Comment on above: Performed By: #### 5 7021-8 #### ESTELITA LARKIN ([id number]) [facility] ([facility]) [address] [place] [address] 72890 Monocytes/100 WBC (Bld) 7.3 % Normal 2.0-10.0 Comment on above: Performed By: #### 5 7021-8 #### ESTELITA LARKIN ([id number]) [facility] ([facility]) [address] [place] [address] 45963 Neutrophils (Bld) [#/Vol] 9.46 x10*3/uL High 1.20-7.70 Comment on above: Result Comment: Perc ent differential counts (%) should be interpreted in the context of the absolute cell counts (cells/uL). Performed By: #### 5 7021-8 #### ESTELITA LARKIN ([id number]) [facility] ([facility]) [address] [place] [address] 92365 Neutrophils/100 WBC (Bld) 72.5 % Normal 40.0-80.0 Comment on above: Performed By: #### 5 7021-8 #### ESTELITA LARKIN ([id number]) [facility] ([facility]) [address] [place] [address] 44296 Nucleated RBC/100 WBC (Bld) [Ratio] 0.0 /100 WBCs Normal 0.0-0.0 Comment on above: Performed By: #### 5 7021-8 #### ESTELITA LARKIN ([id number]) [facility] ([facility]) [address] [place] [address] 93987 Platelets (Bld) [#/Vol] 262 x10*3/uL Normal 150-450 Comment on above: Performed By: #### 5 7021-8 #### ESTELITA LARKIN ([id number]) [facility] ([facility]) [address] [place] [address] 42934 RBC (Bld) [#/Vol] 4.44 x10*6/uL Low 4.50-5.90 [facility] Comment on above: Performed By: #### 5 7021-8 #### ESTELITA LARKIN ([id number]) [facility] ([facility]) [address] [place] [address] 82647 WBC (Bld) [#/Vol] 13.0 x10*3/uL High 4.4-11.3 [facility] Comment on above: Performed By: #### 5 7021-8 #### AVTARIBKARI LARKIN ([id number]) [facility] ([facility]) [address] [place] [address] 73338 CRP [Mass/Vol]on 02-22-2024 Interpretation and review of laboratory results Abnormal [facility] CT CHEST W IV CONTRASTon CT CHEST W IV CONTRAST Interpreted By: Phillip Mojica, STUDY: CT CHEST W IV CONTRAST; 02/22/2024 10:18 pm INDICATION: Signs/Symptoms:multiple abscess to Left armpit. COMPARISON: None. ACCESSION NUMBER(S): [id number] ORDERING CLINICIAN: HALEY YATES TECHNIQUE: Contiguous axial [...] Phillip Mojica 02/22/2024 11:09 PM Dictation workstation: [id number] [facility] CT Chest W contrast Pee Multiple abscesses [...] Phillip Mojica 02/22/2024 11:09 PM Dictation workstation: [id number] Interpreted By: Phillip Varner, STUDY: CT CHEST W IV CONTRAST; 02/22/2024 10:18 pm INDICATION: Signs/Symptoms:multiple abscess to Left armpit. COMPARISON: None. ACCESSION NUMBER(S): [id number] ORDERING CLINICIAN: HALEY YATES TECHNIQUE: Contiguous axial [...] to Left armpit. COMPARISON: None. ACCESSION NUMBER(S): [id number] ORDERING CLINICIAN: HALEY YATES TECHNIQUE: Contiguous axial [...] Phillip Mojica 02/22/2024 11:09 PM Dictation workstation: [id number] [facility] Work Phone: Radiology Study observation (narrative) [facility] Work Phone: CT Chest W contrast IVOrdere d By: Phillip Mojica on 02-22-2024 [facility] Work Phone: Coagulation tissue factor in ducedon 02-22-2024 PT Coag (PPP) [Time] 12.7 s Normal 9.8-12.8 [facility] Comment on above: Performed By: #### 5 902-2 #### ESTELITA LARKIN ([id number]) [facility] ([facility]) [address] [place] [address] Comprehensive metabolic 2000 panelon 02-22-2024 Albumin BCP dye [Mass/Vol] 4.4 g/dL 3.4 - 5.0 g/dL [facility] ALP [Catalytic activity/Vol] 69 U/L 33 - 120 U/L [facility] ALT With P-5'-P [Catalytic activity/Vol] 15 U/L 10 - 52 U/L [facility] Comment on above: Patients treated wit h Sulfasalazine may generate falsely decreased results for ALT. Anion gap [Moles/Vol] 12 mmol/L 10 - 2 0 mmol/L [facility] AST With P-5'-P [Catalytic activity/Vol] 11 U/L 9 - 39 U/L [facility] Bilirubin [Mass/Vol] 0.4 mg/dL 0.0 - 1 .2 mg/dL [facility] Calcium [Mass/Vol] 9.2 mg/dL 8.6 - 10. 3 mg/dL [facility] Chloride [Moles/Vol] 103 mmol/L 98 - 10 7 mmol/L [facility] CO2 [Moles/Vol] 27 mmol/L 21 - 32 mmol/L [facility] Creatinine [Mass/Vol] 1.04 mg/dL 0.50 - 1.30 mg/dL [facility] eGFR - PINF [facility] Comment on above: Calculations of katie mated GFR are performed using the 2020 CKD-EPI Study Refit equation without the race variable for the IDMS-Traceable creatinine methods. https://jasn.asnjournals.org/content//ASN.239648 1155 Glucose [Mass/Vol] 100 mg/dL High 74 - 99 mg/dL [facility] Interpretation and review of laboratory results Abnormal [facility] Potassium [Moles/Vol] 3.9 mmol/L 3.5 - 5.3 mmol/L [facility] Protein [Mass/Vol] 7.4 g/dL 6.4 - 8.2 g/dL [facility] Sodium [Moles/Vol] 138 mmol/L 136 - 145 mmol/L [facility] Urea nitrogen [Mass/Vol] 20 mg/dL 6 - 23 mg/dL [facility] Albumin BCP dye [Mass/Vol] 4.4 g/dL Normal 3.4-5.0 Comment on above: Performed By: #### 2 4323-8 #### ESTELITA LARKIN ([id number]) [facility] ([facility]) [address] [place] [address] ALP [Catalytic activity/Vol] 69 U/L Normal 33-120 Comment on above: Performed By: #### 2 4323-8 #### ESTELITA LARKIN ([id number]) [facility] ([facility]) [address] [place] [address] ALT With P-5'-P [Catalytic activity/Vol] 15 U/L Normal 10-52 Comment on above: Result Comment: Elvi ents treated with Sulfasalazine may generate falsely decreased results for ALT. Performed By: #### 2 4323-8 #### ESTELITA LARKIN ([id number]) [facility] ([facility]) [address] [place] [address] 84351 Anion gap [Moles/Vol] 12 mmol/L Normal 10-20 [facility] Comment on above: Performed By: #### 2 4323-8 #### ESTELITA LARKIN ([id number]) [facility] ([facility]) [address] [place] [address] 68237 AST With P-5'-P [Catalytic activity/Vol] 11 U/L Normal 9-39 Comment on above: Performed By: #### 2 4323-8 #### AVTARIBKARI LARKIN ([id number]) [facility] ([facility]) [address] [place] [address] 26129 Bilirubin [Mass/Vol] 0.4 mg/dL Normal 0.0-1.2 [facility] Comment on above: Performed By: #### 2 4323-8 #### AVTARIBKARI LARKIN ([id number]) [facility] ([facility]) [address] [place] [address] 37131 Calcium [Mass/Vol] 9.2 mg/dL Normal 8.6-10.3 [facility] Comment on above: Performed By: #### 2 4323-8 #### ESTELITA LARKIN ([id number]) [facility] ([facility]) [address] [place] [address] Chloride [Moles/Vol] 103 mmol/L Normal 98-107 [facility] Comment on above: Performed By: #### 2 4323-8 #### ESTELITA LARKIN ([id number]) [facility] ([facility]) [address] [place] [address] CO2 [Moles/Vol] 27 mmol/L Normal 21-32 [facility] Comment on above: Performed By: #### 2 4323-8 #### ESTELITA LARKIN ([id number]) [facility] ([facility]) [address] [place] [id number] Creatinine [Mass/Vol] 1.04 mg/dL Normal 0.50-1.30 [facility] Comment on above: Performed By: #### 2 4323-8 #### ESTELITA LARKIN ([id number]) [facility] ([facility]) [address] [place] [id number] GFR/1.73 sq M.predicted MDRD (S/P/Bld) [Vol rate/Area] mL/min/{1.73_m2} Normal >60 Comment on above: Result Comment: Calc ulations of estimated GFR are performed using the 2020 CKD-EPI Study Refit equation without the race variable for the IDMS-Traceable creatinine methods. https://jasn.asnjournals.org/content//ASN.549656 1877 Performed By: #### 2 4323-8 #### ESTELITA LARKIN ([id number]) [facility] (EMC) [address] [place] [address] Glucose [Mass/Vol] 100 mg/dL High 74-99 [facility] Comment on above: Performed By: #### 2 4323-8 #### ESTELITA LARKIN ([id number]) [facility] (EMC) [address] [place] [address] Potassium [Moles/Vol] 3.9 mmol/L Normal 3.5-5.3 [facility] Comment on above: Performed By: #### 2 4323-8 #### AVTARIBKARI MCDANIEL RIO BANDAR ([id number]) [facility] (EM[facility]) [address] [place] [address] Protein [Mass/Vol] 7.4 g/dL Normal 6.4-8.2 [facility] Comment on above: Performed By: #### 2 4323-8 #### ESTELITA LARKIN ([id number]) [facility] (EMC) [address] [place] [address] Sodium [Moles/Vol] 138 mmol/L Normal 136-145 [facility] Comment on above: Performed By: #### 2 4323-8 #### ESTELITA LARKIN ([id number]) [facility] (EMC) [address] [place] [address] Urea nitrogen [Mass/Vol] 20 mg/dL Normal 6-23 Comment on above: Performed By: #### 2 4323-8 #### ESETLITA MCDANIEL RIO BANDAR ([id number]) [facility] ([facility]) [address] [place] [address] ESR Westergren method (Bld) [Velocity]on 02-22-2024 ESR (Bld) [Velocity] 25 mm/h High 0 - 15 mm/h [facility] Interpretation and review of laboratory results Abnormal [facility] ESR (Bld) [Velocity] 25 mm/h High 0-15 [facility] Comment on above: Performed By: #### 4 537-7 #### ESTELITA LARKIN ([id number]) [facility] ([facility]) [address] [place] [address] PT Coag (PPP) [Time]on 02-21 INR Coag (PPP) [Relative time] 1.1 {INR} 0.9 - 1.1 [facility] Interpretation and review of laboratory results Normal [facility] INR Coag (PPP) [Relative time] 1.1 Normal 0.9-1.1 Comment on above: Performed By: #### 5 902-2 #### ESTELITA LARKIN ([id number]) [facility] ([facility]) [address] [place] [address] Protime-INRon 02-22-2024 PT Coag (PPP) [Time] 12.7 s [facility] SST TOPon 02-22-2024 Extra Tube Hold for add-ons. [facility] Comment on above: Auto resulted. [facility] MR CERVICAL SPINE WO IV CONT RASTon 02-17-2024 MR CERVICAL SPINE WO IV CONTRAST Interpreted By: Luana Lawson and Lawrence Austen STUDY: MR CERVICAL SPINE WO IV CONTRAST; MR LUMBAR SPINE W AND WO IV CONTRAST; MR THORACIC SPINE WO IV CONTRAST; 02/17/2024 7:08 pm; 02/17/2024 7:09 pm INDICATION: Signs/Symptoms:pain. ,M54.10 Radiculopathy, site unspecified COMPARISON: Radiograph 10/19/2017, MRI 08/17/2016. ACCESSION NUMBER(S): [id number]; [id number]; [id number] ORDERING CLINICIAN: SHA FOSTER TECHNIQUE: Sagittal T1, [...] C6- (more content not included)... [facility] Comment on above: Order Comment: [...] COMPARISON: Radiograph 10/19/2017, MRI 08/17/2016. ACCESSION NUMBER(S): [id number]; [id number]; [id number] ORDERING CLINICIAN: SHA FOSTER TECHNIQUE: Sagittal T1, [...] C6- (more content not included)... [facility] Comment on above: Order Comment: QUINTIN TOLEDO MR THORACIC SPINE WO IV CONT [facility] 02-17-2024 MR THORACIC SPINE WO IV CONTRAST Interpreted By: Luana Lawson and Lawrence Austen STUDY: MR CERVICAL SPINE WO IV CONTRAST; MR LUMBAR SPINE W AND WO IV CONTRAST; MR THORACIC SPINE WO IV CONTRAST; 02/17/2024 7:08 pm; 02/17/2024 7:09 pm INDICATION: Signs/Symptoms:pain. ,M54.10 Radiculopathy, site unspecified COMPARISON: Radiograph 10/19/2017, MRI 08/17/2016. ACCESSION NUMBER(S): [id number]; [id number]; [id number] ORDERING CLINICIAN: SHA FOSTER TECHNIQUE: Sagittal T1, [...] bilateral C6- (more content not included)... Normal [facility] Comment on above: Order Comment: Vinnie soriano C-Reactive Proteinon 024 CRP High sensitivity method [Mass/Vol] mg/L 0.0 - 5.0 mg/L [facility] CRP [Mass/Vol] mg/L Normal 0.0-5.0 [facility] Comment on above: Performed By: #### C RP #### [facility] [address] [place] [address] CBC W Auto Differential pane l (Bld)on 01-29-2024 Interpretation and review of laboratory results Abnormal [facility] MCHC (RBC) [Mass/Vol] 34.2 % 33.0 - 37.0 % [facility] Segmented neutrophils/100 WBC (Bld) 60.7 % [facility] CBC With Platelet and Differ entialon 01-29-2024 Basophils (Bld) [#/Vol] 0.1 10*3/uL Normal 0.0-0.2 [facility] Comment on above: Performed By: #### C BCWD #### [facility] [address] [place] [address] Basophils/100 WBC (Bld) 0.5 % Normal [facility] Comment on above: Performed By: #### C BCWD #### [facility] [address] [place] [address] Eosinophils (Bld) [#/Vol] 0.5 10*3/uL Normal 0.0-0.7 [facility] Comment on above: Performed By: #### C BCWD #### [facility] [address] [place] [address] Eosinophils/100 WBC (Bld) 4.8 % Normal [facility] Comment on above: Performed By: #### C BCWD #### [facility] [address] [place] [address] Erythrocyte distribution width (RBC) [Ratio] 12.6 % Normal 11.5-14.5 [facility] Comment on above: Performed By: #### C BCWD #### [facility] [address] [place] [address] Hematocrit (Bld) [Volume fraction] 43.8 % Normal 42.0-52.0 [employer] [facility] Comment on above: Performed By: #### C BCWD #### [facility] [address] [place] [address] Hemoglobin (Bld) [Mass/Vol] 15.0 g/dL Normal 14.0-18.0 [employer] [facility] Comment on above: Performed By: #### C BCWD #### [facility] [address] [place] [address] Lymphocytes (Bld) [#/Vol] 2.4 10*3/uL Normal 1.0-4.8 [employer] [facility] Comment on above: Performed By: #### C BCWD #### [facility] [address] [place] [address] Lymphocytes/100 WBC (Bld) 24.9 % Normal [employer] [facility] Comment on above: Performed By: #### C BCWD #### [facility] [address] [place] [address] MCH (RBC) [Entitic mass] 32.7 pg Critically high 27.0-31.3 [employer] [facility] Comment on above: Performed By: #### C BCWD #### [facility] [address] [place] [address] MCHC 34.2 % Normal 33.0-37.0 [facility] Comment on above: Performed By: #### C BCWD #### [facility] [address] [place] [address] MCV (RBC) [Entitic vol] 95.4 fL Critically high 79.0-92.2 [facility] Comment on above: Performed By: #### C BCWD #### [facility] [address] [place] [address] Monocytes (Bld) [#/Vol] 0.9 10*3/uL Critically high 0.2-0.8 [facility] Comment on above: Performed By: #### C BCWD #### [facility] [address] [place] [address] Monocytes/100 WBC (Bld) 8.8 % Normal [facility] Comment on above: Performed By: #### C BCWD #### [facility] [address] [place] [address] Neutrophils (Bld) [#/Vol] 5.9 10*3/uL Normal 1.4-6.5 [facility] Comment on above: Performed By: #### C BCWD #### [facility] [address] [place] [address] Neutrophils/100 WBC (Bld) 60.7 % Normal [facility] Comment on above: Performed By: #### C BCWD #### [facility] [address] [place] [address] Platelets (Bld) [#/Vol] 316 10*3/uL Normal 130-400 [facility] Comment on above: Performed By: #### C BCWD #### [facility] [address] [place] [address] RBC (Bld) [#/Vol] 4.59 10*6/uL Low 4.70-6.10 [facility] Comment on above: Performed By: #### C BCWD #### [facility] [address] [place] [address] WBC (Bld) [#/Vol] 9.6 10*3/uL Normal 4.8-10.8 [facility] Comment on above: Performed By: #### C BCWD #### [facility] [address] [place] [address] CRP High sensitivity method [Mass/Vol]on 01-29-2024 [facility] Comprehensive Metabolic Pane ashok 01-29-2024 Albumin [Mass/Vol] 3.9 g/dL Normal 3.5-4.6 [facility] Comment on above: Performed By: #### C MP #### [facility] [address] [place] [address] ALP [Catalytic activity/Vol] 62 U/L Normal 35-104 [facility] Comment on above: Performed By: #### C MP #### [facility] [address] [place] [address] ALT [Catalytic activity/Vol] 9 U/L Normal 0-41 [facility] Comment on above: Performed By: #### C MP #### [facility] [address] [place] [address] Anion gap [Moles/Vol] 8 mmol/L Low 9-15 [facility] Comment on above: Performed By: #### C MP #### [facility] [address] [place] [address] AST [Catalytic activity/Vol] 9 U/L Normal 0-40 [facility] Comment on above: Performed By: #### C MP #### [facility] [address] [place] [address] Bilirubin [Mass/Vol] mg/dL Normal 0.2-0.7 [facility] Comment on above: Performed By: #### C MP #### [facility] [address] [place] [address] Calcium [Mass/Vol] 8.8 mg/dL Normal 8.5-9.9 [facility] Comment on above: Performed By: #### C MP #### [facility] [address] [place] [address] Chloride [Moles/Vol] 105 mmol/L Normal 95-107 [facility] Comment on above: Performed By: #### C MP #### [facility] [address] [place] [address] CO2 [Moles/Vol] 27 mmol/L Normal 20-31 [facility] Comment on above: Performed By: #### C MP #### [facility] [address] [place] [address] Creatinine [Mass/Vol] 1.15 mg/dL Normal 0.70-1.20 [facility] Comment on above: Performed By: #### C MP #### [facility] [address] [place] [address] GFR 81.3 Normal >60 [facility] Comment on above: Result Comment: Pedi atric [...] secretion. Performed By: #### C MP #### [facility] [address] [place] [address] Globulin (S) [Mass/Vol] 2.7 g/dL Normal 2.3-3.5 [facility] Comment on above: Performed By: #### C MP #### [facility] [address] [place] [address] Glucose [Mass/Vol] 85 mg/dL Normal 70-99 [facility] Comment on above: Performed By: #### C MP #### [facility] [address] [place] [address] Potassium [Moles/Vol] 4.0 mmol/L Normal 3.4-4.9 [facility] Comment on above: Performed By: #### C MP #### [facility] [address] [place] [address] Protein [Mass/Vol] 6.6 g/dL Normal 6.3-8.0 [facility] Comment on above: Performed By: #### C MP #### [facility] [address] [place] [address] Sodium [Moles/Vol] 140 mmol/L Normal 135-144 [facility] Comment on above: Performed By: #### C MP #### [facility] [address] [place] [address] Urea nitrogen [Mass/Vol] 20 mg/dL Normal 6-20 [facility] Comment on above: Performed By: #### C MP #### [facility] [address] [place] [address] Comprehensive metabolic 2000 panelon 01-29-2024 Albumin [Mass/Vol] 3.9 g/dL 3.5 - 4.6 g/dL [facility] ALP [Catalytic activity/Vol] 62 U/L 35 - 104 U/L [facility] ALT [Catalytic activity/Vol] 9 U/L 0 - 41 U/L [facility] Anion gap [Moles/Vol] 8 mmol/L Low [facility] AST [Catalytic activity/Vol] 9 U/L 0 - 40 U/L [facility] Bilirubin [Mass/Vol] mg/dL 0.2 - 0 .7 mg/dL [facility] Calcium [Mass/Vol] 8.8 mg/dL 8.5 - 9.9 mg/dL [facility] Chloride [Moles/Vol] 105 mmol/L [facility] CO2 [Moles/Vol] 27 mmol/L [facility] Creatinine [Mass/Vol] 1.15 mg/dL 0.70 - 1.20 mg/dL [facility] GFR/1.73 sq M.predicted among non-blacks MDRD (S/P/Bld) [Vol rate/Area] 81.3 mL/min/{1.73_m2} 60 - PINF [facility] Comment on above: Pediatric calculator link https://www.kidney.org/professionals/kdoqi/gfr_calculatorped [...] [Mass/Vol] 2.7 g/dL 2.3 - 3.5 g/dL [facility] Glucose [Mass/Vol] 85 mg/dL 70 - 99 mg/dL [facility] Interpretation and review of laboratory results Abnormal [facility] Potassium [Moles/Vol] 4.0 mmol/L [facility] Protein [Mass/Vol] 6.6 g/dL 6.3 - 8.0 g/dL [facility] Sodium [Moles/Vol] 140 mmol/L [facility] Urea nitrogen [Mass/Vol] 20 mg/dL 6 - 20 mg/dL [facility] ESR Westergren method (Bld) [Velocity]on 01-29-2024 ESR (Bld) [Velocity] 7 mm 0 - 10 mm [facility] Comment on above: ESR Units mm/Hr [facility] Sedimentation Rateon 024 Sedimentation Rate 7 mm Normal 0-10 [facility] Comment on above: Result Comment: ESR Units mm/Hr Performed By: #### E SR #### [facility] [address] [place] [address] Urinalysis with Reflex to Cu ltureon 01-29-2024 Glucose Test strip (U) [Mass/Vol] Negative Negative mg/dL [facility] Interpretation and review of laboratory results Abnormal [facility] Ketones (U) [Mass/Vol] Negative Negative mg/dL [facility] Protein (U) [Mass/Vol] Negative Negative mg/dL [facility] Urine Reflex to Culture Not Indicated [facility] Urobilinogen Qn (U) 0.2 NINF [facility]inalysis, reflex to cultur stephen 01-29-2024 Bilirubin Ql (U) Negative Normal Negative [facility] Comment on above: Performed By: #### U AR #### [facility] [address] [place] [address] Clarity (U) TURBID Abnormal Clear [facility] Comment on above: Performed By: #### U AR #### [facility] [address] [place] [address] Color (U) Yellow Normal Straw/[place] [facility] Comment on above: Performed By: #### U AR #### [facility] [address] [place] [address] Glucose Ql (U) Negative Normal Negative [facility] Comment on above: Performed By: #### U AR #### [facility] [address] [place] [address] Hemoglobin Ql (U) Negative Normal Negative [facility] Comment on above: Performed By: #### U AR #### [facility] [address] [place] [address] Ketones Ql (U) Negative Normal Negative [facility] Comment on above: Performed By: #### U AR #### [facility] [address] [place] [address] Leukocyte esterase Test strip Ql (U) Negative Normal Negative [facility] Comment on above: Performed By: #### U AR #### [facility] [address] [place] [address] Nitrite Ql (U) Negative Normal Negative [place] [facility] Comment on above: Performed By: #### U AR #### [facility] [address] [place] [address] pH (U) 7.0 [pH] Normal 5.0-9.0 [facility] Comment on above: Performed By: #### U AR #### [facility] [address] [place] [address] Protein Ql (U) Negative Normal Negative [facility] Comment on above: Performed By: #### U AR #### [facility] [address] [place] [address] Specific gravity (U) [Rel density] 1.022 Normal 1.005-1.03 [facility] Comment on above: Performed By: #### U AR #### [facility] [address] [place] [address] Urine Reflexed to Culture Not Indicated Normal [facility] Comment on above: Performed By: #### U AR #### [facility] [address] [place] [address] Urobilinogen Qn (U) 0.2 {Bassam'U}/dL Normal < 2.0 [facility] Comment on above: Performed By: #### U AR #### [facility] [address] [place] [address] XR LUMBAR SPINE (2-3 VIEWS)o n 11-14-2023 [...] Kevin Alexander DO 11/14/23 Final result Normal [facility] CBC With Platelet and Differ entialon 08-28-2023 Basophils (Bld) [#/Vol] 0.1 10*3/uL Normal 0.0-0.2 [facility] Comment on above: Performed By: #### C BCWD #### [facility] [address] [place] [address] Basophils/100 WBC (Bld) 0.5 % Normal [facility] Comment on above: Performed By: #### C BCWD #### [facility] [address] [place] [address] Eosinophils (Bld) [#/Vol] 0.3 10*3/uL Normal 0.0-0.7 [facility] Comment on above: Performed By: #### C BCWD #### [facility] [address] [place] [address] Eosinophils/100 WBC (Bld) 2.7 % Normal [facility] Comment on above: Performed By: #### C BCWD #### [facility] [address] [place] [address] Erythrocyte distribution width (RBC) [Ratio] 11.7 % Normal 11.5-14.5 [facility] Comment on above: Performed By: #### C BCWD #### [facility] [address] [place] [address] Hematocrit (Bld) [Volume fraction] 41.5 % Low 42.0-52.0 [facility] Comment on above: Performed By: #### C BCWD #### [facility] [address] [place] [address] Hemoglobin (Bld) [Mass/Vol] 14.2 g/dL Normal 14.0-18.0 [facility] Comment on above: Performed By: #### C BCWD #### [facility] [address] [place] [address] Lymphocytes (Bld) [#/Vol] 3.1 10*3/uL Normal 1.0-4.8 [facility] Comment on above: Performed By: #### C BCWD #### [facility] [address] [place] [address] Lymphocytes/100 WBC (Bld) 28.7 % Normal [facility] Comment on above: Performed By: #### C BCWD #### [facility] [address] [place] [address] MCH (RBC) [Entitic mass] 32.0 pg Critically high 27.0-31.3 [facility] Comment on above: Performed By: #### C BCWD #### [facility] [address] [place] [address] MCHC 34.2 % Normal 33.0-37.0 [facility] Comment on above: Performed By: #### C BCWD #### [facility] [address] [place] [address] MCV (RBC) [Entitic vol] 93.5 fL Critically high 79.0-92.2 [facility] Comment on above: Performed By: #### C BCWD #### [facility] [address] [place] [address] Monocytes (Bld) [#/Vol] 1.0 10*3/uL Critically high 0.2-0.8 [facility] Comment on above: Performed By: #### C BCWD #### [facility] [address] [place] [address] Monocytes/100 WBC (Bld) 9.5 % Normal [facility] Comment on above: Performed By: #### C BCWD #### [facility] [address] [place] [address] Neutrophils (Bld) [#/Vol] 6.4 10*3/uL Normal 1.4-6.5 [facility] Comment on above: Performed By: #### C BCWD #### [facility] [address] [place] [address] Neutrophils/100 WBC (Bld) 58.3 % Normal [facility] Comment on above: Performed By: #### C BCWD #### [facility] [address] [place] [place] [address] Platelets (Bld) [#/Vol] 223 10*3/uL Normal 130-400 [facility] Comment on above: Performed By: #### C BCWD #### [facility] [address] [place] [address] RBC (Bld) [#/Vol] 4.44 10*6/uL Low 4.70-6.10 [facility] Comment on above: Performed By: #### C BCWD #### [facility] [address] [place] [address] WBC (Bld) [#/Vol] 10.9 10*3/uL Critically high 4.8-10.8 [facility] Comment on above: Performed By: #### C BCWD #### [facility] [address] [place] [address] CT CERVICAL SPINE WO CONTRAS Ton 08-28-2023 [...] Kevin Alexander DO 08/28/23 Final result Normal [facility] CT LUMBAR SPINE WO CONTRASTo n 08-28-2023 [...] Kevin Alexander DO 08/28/23 Final result Normal [facility] CT THORACIC SPINE WO CONTRAS Ton 08-28-2023 [...] Kevin Alexander DO 08/28/23 Final result Normal [facility] Comprehensive Metabolic Pane ashok 08-28-2023 Albumin [Mass/Vol] 4.6 g/dL Normal 3.5-4.6 [facility] Comment on above: Performed By: #### C MP #### [facility] [address] [place] [address] ALP [Catalytic activity/Vol] 70 U/L Normal 35-104 [facility] Comment on above: Performed By: #### C MP #### [facility] [address] [place] [address] ALT [Catalytic activity/Vol] 13 U/L Normal 0-41 [facility] Comment on above: Performed By: #### C MP #### [facility] [address] [place] [address] Anion gap [Moles/Vol] 11 mmol/L Normal 9-15 [facility] Comment on above: Performed By: #### C MP #### [facility] [address] [place] [address] AST [Catalytic activity/Vol] 13 U/L Normal 0-40 [facility] Comment on above: Performed By: #### C MP #### [facility] [address] [place] [address] Bilirubin [Mass/Vol] mg/dL Normal 0.2-0.7 [facility] Comment on above: Performed By: #### C MP #### [facility] [address] [place] [address] Calcium [Mass/Vol] 9.2 mg/dL Normal 8.5-9.9 [facility] Comment on above: Performed By: #### C MP #### [facility] [address] [place] [address] Chloride [Moles/Vol] 105 mmol/L Normal 95-107 [facility] Comment on above: Performed By: #### C MP #### [facility] [address] [place] [address] CO2 [Moles/Vol] 25 mmol/L Normal 20-31 [facility] Comment on above: Performed By: #### C MP #### [facility] [address] [place] [address] Creatinine [Mass/Vol] 1.15 mg/dL Normal 0.70-1.20 [facility] Comment on above: Performed By: #### C MP #### [facility] [address] [place] [address] GFR 81.5 Normal >60 [facility] Comment on above: Result Comment: Abbie atric [...] secretion. Performed By: #### C MP #### [facility] [address] [place] [address] Globulin (S) [Mass/Vol] 2.9 g/dL Normal 2.3-3.5 [facility] Comment on above: Performed By: #### C MP #### [facility] [address] [place] [address] Glucose [Mass/Vol] 97 mg/dL Normal 70-99 [facility] Comment on above: Performed By: #### C MP #### [facility] [address] [place] [address] Potassium [Moles/Vol] 3.6 mmol/L Normal 3.4-4.9 [facility] Comment on above: Performed By: #### C MP #### [facility] [address] [place] [address] Protein [Mass/Vol] 7.5 g/dL Normal 6.3-8.0 [facility] Comment on above: Performed By: #### C MP #### [facility] [address] [place] [address] Sodium [Moles/Vol] 141 mmol/L Normal 135-144 [facility] Comment on above: Performed By: #### C MP #### [facility] [address] [place] [address] Urea nitrogen [Mass/Vol] 22 mg/dL Critically high 6-20 [facility] Comment on above: Performed By: #### C MP #### [facility] [address] [place] [address] XR Lumbar spine 4 Viewson Interpreted By: Sha Chacon, STUDY: XR LUMBAR SPINE COMPLETE 4+ VIEWS; ; 05/04/2023 4:17 pm INDICATION: Signs/Symptoms:pain. ACCESSION NUMBER(S): [id number] ORDERING CLINICIAN: SHA FOSTER FINDINGS: AP lateral flexion extension x-rays lumbar spine show [id number] degenerative changes at L4-5 and mild degenerative [...] Sha Foster 05/04/2023 4:32 PM Dictation workstation: [id number] Sha Foster MD - 05/04/2023 Interpreted By: Sha Foster, STUDY: XR LUMBAR SPINE COMPLETE 4+ VIEWS; ; 05/04/2023 4:17 pm INDICATION: Signs/Symptoms:pain. ACCESSION NUMBER(S): [id number] ORDERING CLINICIAN: SHA FOSTER FINDINGS: AP lateral flexion extension x-rays lumbar spine show [id number] degenerative changes at L4-5 and mild degenerative [...] Sha Foster 05/04/2023 4:32 PM Dictation workstation: [id number] [facility] Work Phone: [facility] Work Phone: Radiology Study observation (narrative) [facility] Work Phone: Absolute lymphocyte counton 08-20-2021 Lymphocytes Auto (Unsp spec) [#/Vol] 0.41 10*3/uL 0.83-4.51 [facility] Work Phone: Basophil percentageon 2021 Basophils/100 WBC (Bld) 0.5 % 0-1 [facility] Work Phone: Chloride [Moles/Vol] 100 mmol/L 98-107 [facility] Work Phone: Eosinophils/100 WBC (Bld) 0.0 % 0-5 [facility] Work Phone: Glucose [Mass/Vol] 120 mg/dL 74-106 [facility] Work Phone: Comment on above: Fasting Glucose resu lt from 100 to 125 mg/dL suggests IMPAIRED HOMEOSTASIS per A.D.A. criteria. Neutrophils (Bld) [#/Vol] 0.8 10*3/uL 2.0-7.7 [facility] Work Phone: Neutrophils/100 WBC (Bld) 40.8 % 47-70 [facility] Work Phone: Potassium [Moles/Vol] 3.2 mmol/L 3.5-5.1 [facility] Work Phone: Sodium [Moles/Vol] 134 mmol/L 136-145 [facility] Work Phone: WBC (Bld) [#/Vol] 2.0 10*3/uL 4.4-11.0 [facility] Work Phone: Blood erythrocytes count (nu mber/volume)on 08-20-2021 RBC (Bld) [#/Vol] 4.44 10*6/uL 4.6-6.2 [facility] Work Phone: Blood hemoglobin measurement (mass/volume)on 08-20-2021 Hemoglobin (Bld) [Mass/Vol] 14.0 g/dL 13.0-16.5 [facility] Work Phone: Blood lymphocytes/100 leukoc yteson 08-20-2021 Lymphocytes/100 WBC (Bld) 20.4 % 19-41 [facility] Work Phone: Blood manual differential co mment interpretation (narrative result)on 08-20-2021 Manual differential comment Blake (Bld) [Interp] SEE COMMENTS [facility] Work Phone: Comment on above: NEUTROPENIA NOTEDLYM PHOPENIA NOTED Blood monocytes/100 leukocyt eson 08-20-2021 Monocytes/100 WBC (Bld) 37.8 % 0-10 [facility] Work Phone: Blood platelet adequacy dete ction by light microscopyon 08-20-2021 Platelets LM Ql (Bld) ADEQUATE ADEQ [facility] Work Phone: Blood platelet mean volumeon 08-20-2021 Platelet mean volume (Bld) [Entitic vol] 12.0 fL 6.2-12.0 [facility] Work Phone: Determination of erythrocyte mean corpuscular volume (MCV)on 08-20-2021 MCV (RBC) [Entitic vol] 93.5 fL 80-94 [facility] Work Phone: Hematocrit Auto (Bld) [Volum e fraction]on 08-20-2021 Hematocrit (Bld) [Volume fraction] 41.5 % 40-54 [facility] Work Phone: Laboratory - Chemistry and C hemistry - challengeon 08-20-2021 CO2 [Moles/Vol] 25.0 mmol/L 21.0-32.0 [facility] Work Phone: Urea nitrogen/Creatinine [Mass ratio] 11.2 mg/mg 10-20 [facility] Work Phone: Laboratory - Drug toxicology on 08-20-2021 Amphetamines Ql (U) Negative [facility] Work Phone: Benzodiazepines Ql (U) Negative [facility] Work Phone: Cannabinoids Screen Ql (U) Positive [facility] Work Phone: Cocaine Ql (U) Negative [facility] Work Phone: Opiates Ql (U) Negative [facility] Work Phone: Laboratory - Hematology and Cell countson 08-20-2021 Anisocytosis Ql (Bld) RARE [facility] Work Phone: Erythrocyte distribution width (RBC) [Entitic vol] 40.6 fL 35.1-43.9 [facility] Work Phone: Erythrocyte distribution width (RBC) [Ratio] 11.9 % 11.6-14.6 [facility] Work Phone: Immature granulocytes/100 WBC (Bld) 0.500 % 0.0-0.9 [facility] Work Phone: Comment on above: IG% - Immature Granu locytes (promyelocytes, myelocytes and metamyelocytes) > 1% indicates that a LEFT SHIFT is Present. MCH (RBC) [Entitic mass] 31.5 pg 27.0-32.0 [facility] Work Phone: Nucleated RBC/100 WBC (Bld) [Ratio] 0 % 0-5 [facility] Work Phone: Laboratory - Microbiology an d Antimicrobial susceptibilityon 08-20-2021 SARS-CoV-2 (COVID-19) RNA CATALINO+probe Ql (Unsp spec) Detected Not Detect [facility] Work Phone: Comment on above: Normal Reference Ran ge: Not DetectedMethod:(RT-PCR) real-time reverse transcriptase PCRLuminex RestoMesto Instrument*The Food and Drug Administration (FDA) has [...] 08-20-2021 MCHC (RBC) [Mass/Vol] 33.7 g/dL 32-36 [facility] Work Phone: Macrocytes detectionon 08-20 Macrocytes Ql (Bld) RARE [facility] Work Phone: No Panel Informationon 08-20 MDMA (Ecstasy) Screen Negative [facility] Work Phone: Urine Barbiturates Screen Negative [facility] Work Phone: Urine Drug Screen Comment [facility] Work Phone: Comment on above: CONFIRMATORY TESTING [...] USE TESTMNEMONIC: [facility]CA Urine Methadone Screen Negative [facility] Work Phone: Estimated Creatinine Clearance Calc 95.67 ml/min [facility] Work Phone: Estimated GFR (MDRD) Amer 90 mL/min >60 [facility] Work Phone: Comment on above: GFR Calc Estimated GFR (MDRD) Non-Af Amer 74 mL/min >60 [facility] Work Phone: Comment on above: Non- GFR Calc Ethyl Alcohol Level 5.0 mg/dL [facility] Work Phone: Comment on above: The serum:whole bloo d ethanol ratio is approximately 1.14and varies slightly with hematocrit. 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 Clinical correlation necessary.Randall Milan M.D. 08/21/21 AMENDED REPORT 08/21/21 1235 PATH REV previously reported as: July SARS-CoV-2 (COVID-19) Ag IA. rapid Ql (Resp)on 08-20-2021 SARS-CoV-2 Antigen (Rapid) SARS-CoV-2 (COVID 19) [facility] Work Phone: Serum or plasma calcium whitney urement (mass/volume)on 08-20-2021 Calcium [Mass/Vol] 8.7 mg/dL 8.5-10.1 [facility] Work Phone: Serum or plasma creatinine m easurement (mass/volume)on 08-20-2021 Creatinine [Mass/Vol] 1.16 mg/dL 0.70-1.30 [facility] Work Phone: Comment on above: The validity of the calculated GFR & GFRAA in patients over 70 years has not been determined. Clinical correlation is essential. Serum or plasma urea nitroge n measurement (mass/volume)on 08-20-2021 Urea nitrogen [Mass/Vol] 13 mg/dL 7-18 [facility] Work Phone: Thin prep Papanicolaou smear with manual screeningon 08-20-2021 Thin prep Papanicolaou smear with manual screening 9 5-15 [facility] Work Phone: Urine phencyclidine (PCP) de tectionon 08-20-2021 Phencyclidine Ql (U) Negative [facility] Work Phone: MRI RT SHOULDER W/O CONTRAST on 01-26-2018 Thyrotropin Qn DATE OF EXAM: Jan 26 2018 4:37PMCLINICAL HISTORY/ Name: HARMAN JAMILSTUDY:MRI RT SHOULDER W/O CONTRAST; 01/26/2018 4:37 pmINDICATION:shoulder pain.COMPARISON:None.ACCES OSMEL NUMBER(S):[id number] CLINICIAN:SHA FOSTERTECHNINEW:Servandol hans multisequence MRI of [...] TISSUES:No subcutaneous edema.CONCLUSION: IMPRESSION:1. Unremarkable exam. Normal [facility] Office Visiton 10-04-2017 Office Visit [...] PM Vitals Vital Signs Recorded: 04Oct2017 03:57PMHeart Tmwi126Ixsvmuag861, LUE, MasyglcWoqznukuz51, LUE, SittingHeight6 ft Ufhmgn746 lb 9 ozBMI Ybvsgihnzy45.02BSA Calculated2.16O2 Wijogkwhzi69 Physical ExamGen: NADeyes: EOMI, ENT: hearing grossly intact, no nasal dischargeresp: CTABL, without R/Rheart: RRR without MRGGI: abd: S/ND/NT, BS+lymph: no axillary, cervical, supraclavicular lymphadenopathy noted MS: gait grossly WNL, shoulder range of motion grossly within normal limits.derm: no rashes or lesions notedneuro: CN II-XII grossly intactpsych: AANDOx3 Results/Data HIV Antigen/Antibody Segora81Rof0800 10:Josafat Peterson Test NameResultFlagReferenceHIV AG/AB SCREENNON REACTIVESee BelowSOURCE: Reference Range: NONREACTIVE HIV Ag/Ab screen is performed using the Siemens Advia Centaur HIV Ag/Ab Combo assay which detects the presence of HIV p24 antigen as well as antibodies to HIV-1 (Group M and O) and HIV-2. Syphilis [id number] 10:Josafat Peterson Test NameResultFlagReferenceSyp hilis IgGNON REACTIVESee BelowSOURCE: Reference Range: NONREACTIVE Patients receiving more than 5 mg/day of biotin may have interference in test results. A sample should be taken no sooner than eight hours after previous dose. Contact [phone] for additional information. Vitamin D 25-Pjeuuuj26Tgc9048 10:Josafat Peterson Test NameResultFlagReferenceVit lazcano D 25-Hydroxy, [...] Status: Hold For - Scheduling Requested for: 02Ies6650 Ordered;For: Paresthesia of upper extremity, Shoulder pain; Ordered By: Josafat Tinoco Performed: Order Comments: If possible he might be able to come in tomorrow for the walk-in clinic, otherwise schedule with someone. Thanks. Due: 14Bln9574Ujcscdpz pain Start: Ibuprofen 800 MG Oral Tablet; TAKE 1 TABLET 3 TIMES DAILY WITH FOOD ASNEEDED for pain Rx By: Josafat Tinoco; Dispense: 20 Days ; #:60 Tablet; Refill: 1;For: Shoulder pain; PAYAM = N; Sent To: [facility]Vitamin D deficiency Start: Vitamin D3 5000 UNIT Oral Capsule; 1 po qd Rx By: Josafat Tinoco; Dispense: 0 Days ; #:30 Capsule; Refill: 11;For: Vitamin D deficiency; PAYAM = N; Sent To: [facility] Patient Discussion/Summarysmoking about 1/2 ppd, -->> [...] TIMES DAILY WITH FOOD ASNEEDED for pain;Therapy: 74Hwr8710 to (Evaluate:32Xew1088); Last Rx:[id number] OrderedVitamin D3 5000 UNIT Oral Capsule; 1 po qd;Therapy: 57Sgj3701 to (Last Rx:98Peg9572) Ordered Signatures Electronically signed by : Josafat Tinoco DO; Oct 04 2017 4:50PM EST (Author) Normal [facility] Office Visiton 09-28-2017 Office Visit Chief Complaint [...] 09/06/2015 8:22:19 AM Vitals Vital Signs Recorded: 28Eoj0103 09:53AMHeart Dfrt13Ufdeteso770, LUE, GnwzqoqLrdsbvmdo01, LUE, SittingHeight6 ft Dfehpe271 lb 2 ozBMI Ngqdgarfzo69.36BSA Calculated2.17O2 Rmimdjdpgn54 Physical ExamGen: NADeyes: EOMI, ENT: hearing grossly [...] Education Material Provided for Patient; Status:Complete; Done: 29Och6744 Ordered; For:Drug therapy, Hyperlipidemia, Overweight, Prediabetes, Screening for condition, Vitamin D deficiency; Ordered By:Josafat Tinoco; Complete Blood Count + Differential; Source:Blood (D); Status:Active; Requestedfor:78Mdj2670; Perform:Lab Services - Lab To Draw (Blood Test); Due:27Dec2017;Ordered; For:Drug therapy, Hyperlipidemia, Overweight, Prediabetes, Screening for condition, Vitamin D deficiency; Ordered By:Josafat Tinoco; Comprehensive Metabolic Panel; Status:Active; Requested for:04Not9568; Perform:Lab Services - Lab To Draw (Blood Test); Due:27Dec2017;Ordered; For:Drug therapy, Hyperlipidemia, Overweight, Prediabetes, Screening for condition, Vitamin D deficiency; Ordered By:Josafat Tinoco; Hemoglobin A1C; Source:Blood (BLD); Status:Active; Requested for:16Ysd0492; Perform:Lab Services - Lab To Draw (Blood [...] + Chlamydia By Amplified Detection; Source:Urine; Status:Active; Requestedfor:89Csh3631; Perform:Lab Services - Lab To Draw (Non-Blood Test); Due:27Dec2017;Ordered; For:Screening for condition; Ordered By:Josafat Tinoco; HIV Antigen/Antibody Screen; Source:Blood (BLD); Status:Active; Requestedfor:70Fya5546; Perform:Lab Services - Lab To Draw (Blood Test); Due:27Dec2017;Ordered; For:Screening for condition; Ordered By:Josafat Tinoco; Syphilis IGG; Status:Active; Requested for:72Nmy7514; Perform:Lab Services - Lab To Draw (Blood [...] Follow-up with CT if clinically indicated. Normal [facility] SPINE L MIN 4 VIEWSon 2017 SPINE L MIN 4 VIEWS DATE OF EXAM: May 26 2017 11:32PLINICAL HISTORY/ Name: SILAS JAMIL:SPINE L MIN 4 VIEWS; 05/26/2017 11:32 pmINDICATION:Non Trauma.COMPARISON:12/18/19 16ACCESSION NUMBER(S):[id number] CLINICIAN:MARCIE CRUZS:No significant interval change.There is no acute fracture or dislocation. The vertebral heights and alignment are unremarkable.There is no spondylolysis or spondylolisthesis.There is no radiographic evidence of significant spondylosis.Significant stool and bowel gas obscures the bony details.CONCLUSION: IMPRESSION:No acute fracture or dislocation. Follow-up with CT if clinically indicated. Normal [facility] Vital Signs Date Time Vital Sign Value Performing Clinician Facility 01-09-2025 10:40-0400 Body height 185.4 cm Apoorva Griffin MD Work Phone: [facility] 01-09-2025 10:40-0400 Body mass index (BMI) [Ratio] 24.54 kg/m2 Apoorva Griffin MD Work Phone: [facility] 01-09-2025 10:40-0400 Body temperature 97.5 [degF] Apoorva Griffin MD Work Phone: [facility] 01-09-2025 10:40-0400 Body weight 84.37 kg Apoorva Griffin MD Work Phone: [facility] 01-09-2025 10:40-0400 Diastolic blood pressure 80 mm[Hg] Apoorva Griffin MD Work Phone: [facility] 01-09-2025 10:40-0400 Heart rate 57 /min Apoorva Griffin MD Work Phone: [facility] 01-09-2025 10:40-0400 SaO2% (BldA) [Mass fraction] 97 % Apoorva Griffin MD Work Phone: [facility] 01-09-2025 10:40-0400 Systolic blood pressure 145 mm[Hg] Apoorva Griffin MD Work Phone: [facility] 12-17-2024 21:47-0400 Body height 185.[address] Josafat Tinoco DO Work Phone: [facility] 12-17-2024 21:47-0400 Body mass index (BMI) [Ratio] 25 kg/m2 Dr. Josafat Tinoco DO Work Phone: [facility] 12-17-2024 21:47-0400 Body temperature 96 [degF] Dr. Josafat Tinoco DO Work Phone: [facility] 12-17-2024 21:47-0400 Body weight 86.[address] Josafat Tinoco DO Work Phone: [facility] 12-17-2024 21:47-0400 Diastolic blood pressure 96 mm[Hg] Dr. Josafat Tinoco DO Work Phone: [facility] 12-17-2024 21:47-0400 Heart rate 80 /min Dr. Josafat Tinoco DO Work Phone: [facility] 12-17-2024 21:47-0400 Respiratory rate 18 /min Dr. Josafat Tinoco DO Work Phone: [facility] 12-17-2024 21:47-0400 SaO2% (BldA) [Mass fraction] 100 % Dr. Josafat Tinoco DO Work Phone: [facility] 12-17-2024 21:47-0400 Systolic blood pressure 145 mm[Hg] Dr. Josafat Tinoco DO Work Phone: [facility] 12-08-2024 20:31-0400 Body temperature 98.2 [degF] Parrish Talbert MD Work Phone: [facility] 12-08-2024 20:31-0400 Diastolic blood pressure 87 mm[Hg] Parrish Talbert MD Work Phone: [facility] 12-08-2024 20:31-0400 Heart rate 84 /min Parrish Talbert MD Work Phone: [facility] 12-08-2024 20:31-0400 Respiratory rate 17 /min Parrish Talbert MD Work Phone: [facility] 12-08-2024 20:31-0400 SaO2% (BldA) [Mass fraction] 97 % Parrish Talbert MD Work Phone: [facility] 12-08-2024 20:31-0400 Systolic blood pressure 144 mm[Hg] Parrish Talbert MD Work Phone: [facility] 12-08-2024 18:25-0400 Body height 185.4 cm Parrish Talbert MD Work Phone: [facility] 12-08-2024 18:25-0400 Body mass index (BMI) [Ratio] 25.07 kg/m2 Parrish Talbert MD Work Phone: [facility] 12-08-2024 18:25-0400 Body weight 86.18 kg Parrish Talbert MD Work Phone: [facility] 11-11-2024 02:16-0400 Body temperature 97.9 [degF] Dr. Josafat Tinoco DO Work Phone: [facility] 11-11-2024 02:16-0400 Diastolic blood pressure 99 mm[Hg] Dr. Josafat Tinoco DO Work Phone: [facility] 11-11-2024 02:16-0400 Heart rate 75 /min Dr. Josafat Tinoco DO Work Phone: [facility] 11-11-2024 02:16-0400 Respiratory rate 16 /min Dr. Josafat Tinoco DO Work Phone: [facility] 11-11-2024 02:16-0400 SaO2% (BldA) [Mass fraction] 99 % Dr. Josafat Tinoco DO Work Phone: [facility] 11-11-2024 02:16-0400 Systolic blood pressure 132 mm[Hg] Dr. Josafat Tinoco DO Work Phone: [facility] 11-10-2024 23:53-0400 Body height 185.[address] Josafat Tinoco DO Work Phone: [facility] 11-10-2024 23:53-0400 Body mass index (BMI) [Ratio] 24.3 kg/m2 Dr. Josafat Tinoco DO Work Phone: [facility] 11-10-2024 23:53-0400 Body weight 83.[address] Josafat Tinoco DO Work Phone: [facility] 10-31-2024 10:11-0400 Body mass index (BMI) [Ratio] 25.2 kg/m2 Apoorva Griffin MD Work Phone: [facility] 10-31-2024 10:11-0400 Body temperature 97.3 [degF] Apoorva Griffin MD Work Phone: [facility] 10-31-2024 10:11-0400 Body weight 86.64 kg Apoorva Griffin MD Work Phone: [facility] 10-31-2024 10:11-0400 Diastolic blood pressure 92 mm[Hg] Apoorva Griffin MD Work Phone: [facility] 10-31-2024 10:11-0400 Heart rate 70 /min Apoorva Griffin MD Work Phone: [facility] 10-31-2024 10:11-0400 Systolic blood pressure 156 mm[Hg] Apoorva Griffin MD Work Phone: [facility] 10-23-2024 15:44-0400 SaO2% (BldA) [Mass fraction] 98 % Dr. Josafat Tinoco DO Work Phone: [facility] 10-23-2024 15:32-0400 Body height 185.[address] Josafat Tinoco DO Work Phone: [facility] 10-23-2024 15:32-0400 Body mass index (BMI) [Ratio] 24.9 kg/m2 Dr. Josafat Tinoco DO Work Phone: [facility] 10-23-2024 15:32-0400 Body temperature 98.8 [degF] Dr. Josafat Tinoco DO Work Phone: [facility] 10-23-2024 15:32-0400 Body weight 85.[address] Josafat Tinoco DO Work Phone: [facility] 10-23-2024 15:32-0400 Diastolic blood pressure 65 mm[Hg] Dr. Josafat Tinoco DO Work Phone: [facility] 10-23-2024 15:32-0400 Heart rate 104 /min Dr. Josafat Tinoco DO Work Phone: [facility] 10-23-2024 15:32-0400 Inhaled oxygen flow rate 4 L/min Dr. Josafat Tinoco DO Work Phone: [facility] 10-23-2024 15:32-0400 Respiratory rate 14 /min Dr. Josafat Tinoco DO Work Phone: [facility] 10-23-2024 15:32-0400 Systolic blood pressure 112 mm[Hg] Dr. Josafat Tinoco DO Work Phone: [facility] 10-02-2024 [id number] Body height 185.4 cm Apoorva Griffin MD Work Phone: [facility] 10-02-2024 12:11-0400 Body mass index (BMI) [Ratio] 25.46 kg/m2 Apoorva Griffin MD Work Phone: [facility] 10-02-2024 12:11-0400 Body temperature 97.3 [degF] Apoorva Griffin MD Work Phone: [facility] 10-02-2024 [id number] Body weight 87.54 kg Apoorva Griffin MD Work Phone: [facility] 10-02-2024 12:11-0400 Diastolic blood pressure 76 mm[Hg] Apoorva Griffin MD Work Phone: [facility] 10-02-2024 12:11-0400 Heart rate 57 /min Apoorva Griffin MD Work Phone: [facility] 10-02-2024 12:11-0400 SaO2% (BldA) [Mass fraction] 99 % Apoorva Griffin MD Work Phone: [facility] 10-02-2024 12:11-0400 Systolic blood pressure 117 mm[Hg] Apoorva Griffin MD Work Phone: [facility] 07-19-2024 10:44-0400 Body height 185.4 cm Radha Gartt DO Work Phone: [facility] 07-19-2024 10:44-0400 Body mass index (BMI) [Ratio] 24.83 kg/m2 Radha Garratt DO Work Phone: [facility] 07-19-2024 10:44-0400 Body weight 85.37 kg Radha Garradeedee DO Work Phone: [facility] 07-14-2024 01:28-0400 Body temperature 98.71 [degF] Josafat Tinoco DO Work Phone: [employer] 07-13-2024 22:31-0400 Body mass index (BMI) [Ratio] 24.65 kg/m2 Josafat Degidio DO Work Phone: [facility] [email or web address] 07-13-2024 22:31-0400 Body weight 84.73 kg Josafat Degidio DO Work Phone: [facility] [email or web address] 07-13-2024 22:30-0400 Diastolic blood pressure 92 mm[Hg] Josafat Degidio DO Work Phone: [employer] 07-13-2024 22:30-0400 Heart rate 98 /min Josafat Degidio DO Work Phone: [facility] [email or web address] 07-13-2024 22:30-0400 Respiratory rate 19 /min Josafat Degidio DO Work Phone: [facility] [email or web address] 07-13-2024 22:30-0400 SaO2% (BldA) [Mass fraction] 97 % Josafat Degidio DO Work Phone: [facility] 07-13-2024 22:30-0400 Systolic blood pressure 137 mm[Hg] Josafat Degidio DO Work Phone: [facility] 06-28-2024 08:47-0400 Body height 183.1 cm Josafat Degidio DO Work Phone: [facility] 06-28-2024 08:47-0400 Body mass index (BMI) [Ratio] 25.29 kg/m2 Josafat Degidio DO Work Phone: [facility] 06-28-2024 08:47-0400 Body weight 84.82 kg Josafat Degidio DO Work Phone: [facility] 06-28-2024 08:47-0400 Diastolic blood pressure 99 mm[Hg] Josafat Degidio DO Work Phone: [facility] 06-28-2024 08:47-0400 Heart rate 80 /min Josafat Emersono DO Work Phone: [facility] 06-28-2024 08:47-0400 SaO2% (BldA) [Mass fraction] 98 % Josafat Hilarioidio DO Work Phone: [facility] 06-28-2024 08:47-0400 Systolic blood pressure 134 mm[Hg] Josafat Hilarioidio DO Work Phone: [facility] 06-15-2024 21:32-0400 Body height 185.4 cm Lisa Polanco MD Work Phone: [employer] 06-15-2024 21:32-0400 Body mass index (BMI) [Ratio] 24.72 kg/m2 Lisa Polanco MD Work Phone: [employer] 06-15-2024 21:32-0400 Body temperature 98.01 [degF] Lsia Polanco MD Work Phone: [employer] [facility] 06-15-2024 21:32-0400 Body weight 85 kg Lisa Polanco MD Work Phone: [employer] [facility] 06-15-2024 21:32-0400 Diastolic blood pressure 87 mm[Hg] Lisa Polanco MD Work Phone: [employer] [facility] 06-15-2024 21:32-0400 Heart rate 92 /min Lisa Polanco MD Work Phone: [facility] 06-15-2024 21:32-0400 Respiratory rate 20 /min Lisa Polanco MD Work Phone: [facility] 06-15-2024 21:32-0400 SaO2% (BldA) [Mass fraction] 99 % Lisa Polanco MD Work Phone: [employer] [facility] [facility] 06-15-2024 21:32-0400 Systolic blood pressure 154 mm[Hg] Lisa Polanco MD Work Phone: [employer] 05-19-2024 14:00-0500 Diastolic blood pressure 96 mm[Hg] Josafat Degidio DO Work Phone: [facility] [email or web address] 05-19-2024 14:00-0500 SaO2% (BldA) [Mass fraction] 98 % Josafat Degidio DO Work Phone: [employer] 05-19-2024 14:00-0500 Systolic blood pressure 122 mm[Hg] Josafat Degidio DO Work Phone: [employer] 05-18-2024 21:51-0500 Body height 185.4 cm Josafat Degidio DO Work Phone: [employer] 05-18-2024 21:51-0500 Body mass index (BMI) [Ratio] 24.41 kg/m2 Josafat Degidio DO Work Phone: [employer] 05-18-2024 21:51-0500 Body temperature 98.1 [degF] Josafat Degidio DO Work Phone: [employer] 05-18-2024 21:51-0500 Body weight 83.92 kg Josafat Degidio DO Work Phone: [employer] 05-18-2024 21:51-0500 Heart rate 85 /min Josafat Degidio DO Work Phone: [employer] 05-18-2024 21:51-0500 Respiratory rate 20 /min Josafat Degidio DO Work Phone: [employer] 02-26-2024 07:35-0500 Body temperature 97.7 [degF] Sha Foster MD Work Phone: [facility] 02-26-2024 07:35-0500 Diastolic blood pressure 103 mm[Hg] Sha Foster MD Work Phone: [facility] 02-26-2024 07:35-0500 Heart rate 67 /min Sha Foster MD Work Phone: [facility] 02-26-2024 07:35-0500 Respiratory rate 18 /min Sha Foster MD Work Phone: [facility] 02-26-2024 07:35-0500 SaO2% (BldA) [Mass fraction] 98 % Sha Foster MD Work Phone: [facility] 02-26-2024 07:35-0500 Systolic blood pressure 137 mm[Hg] Sha Foster MD Work Phone: [facility] 02-23-2024 02:23-0500 Body height 185.4 cm Sha Foster MD Work Phone: [facility] 02-23-2024 02:23-0500 Body mass index (BMI) [Ratio] 24.37 kg/m2 Sha Foster MD Work Phone: [facility] 02-23-2024 02:23-0500 Body weight 83.78 kg Sha Foster MD Work Phone: [facility] 02-09-2024 00:18-0500 Diastolic blood pressure 84 mm[Hg] Josafat Degidio DO Work Phone: [employer] 02-09-2024 00:18-0500 Respiratory rate 18 /min Josafat Degidio DO Work Phone: [employer] 02-09-2024 00:18-0500 SaO2% (BldA) [Mass fraction] 96 % Josafat Degidio DO Work Phone: [employer] 02-09-2024 00:18-0500 Systolic blood pressure 106 mm[Hg] Josafat Degidio DO Work Phone: [employer] 02-08-2024 21:59-0500 Body height 185.4 cm Josafat Degidio DO Work Phone: [employer] 02-08-2024 21:59-0500 Body mass index (BMI) [Ratio] 24.41 kg/m2 Josafat Degidio DO Work Phone: [facility] [email or web address] 02-08-2024 21:59-0500 Body temperature 97.3 [degF] Josafat Degidio DO Work Phone: [facility] [email or web address] 02-08-2024 21:59-0500 Body weight 83.92 kg Josafat Degidio DO Work Phone: [facility] [email or web address] 02-08-2024 21:59-0500 Heart rate 88 /min Josafat Degidio DO Work Phone: [facility] [email or web address] 01-29-2024 19:20-0500 Body height 185.4 cm [email or web address] Work Phone: [employer] 01-29-2024 19:20-0500 Body mass index (BMI) [Ratio] 24.41 kg/m2 Moe Delo Work Phone: [employer] 01-29-2024 19:20-0500 Body temperature 98.2 [degF] Zuleyka [employer] DO Work Phone: [employer] 01-29-2024 19:20-0500 Body weight 83.92 kg Moe Delo Work Phone: [employer] 01-29-2024 19:20-0500 Diastolic blood pressure 93 mm[Hg] [employer]uleyka[employer] DO Work Phone: [employer] 01-29-2024 19:20-0500 Heart rate 95 /min Moe Delo Work Phone: [facility] [email or web address] 01-29-2024 19:20-0500 Respiratory rate 18 /min [email or web address] Work Phone: [employer] 01-29-2024 19:20-0500 SaO2% (BldA) [Mass fraction] 97 % Zuleyka Bryant DO Work Phone: [employer] 01-29-2024 19:20-0500 Systolic blood pressure 128 mm[Hg] Zuleyka Bryant DO Work Phone: [employer] 12-12-2023 18:53-0400 Body height 182.9 cm Josafat Degidio DO Work Phone: [employer] 12-12-2023 18:53-0400 Body mass index (BMI) [Ratio] 25.09 kg/m2 Josafat Degidio DO Work Phone: [employer] 12-12-2023 18:53-0400 Body weight 83.92 kg Josafat Degidio DO Work Phone: [employer] 12-12-2023 18:35-0400 Body temperature 98.71 [degF] Josafat Degidio DO Work Phone: [employer] 12-12-2023 18:35-0400 Diastolic blood pressure 105 mm[Hg] Josafat Degidio DO Work Phone: [facility] [employer] 12-12-2023 18:35-0400 Heart rate 105 /min Josafat Degidio DO Work Phone: [employer] 12-12-2023 18:35-0400 Respiratory rate 18 /min Josafat Degidio DO Work Phone: [employer] 12-12-2023 18:35-0400 SaO2% (BldA) [Mass fraction] 100 % Josafat Degidio DO Work Phone: [employer] 12-12-2023 18:35-0400 Systolic blood pressure 163 mm[Hg] Josafat Degidio DO Work Phone: [employer] 05-18-2023 15:51-0500 Body temperature 98.2 [degF] [facility] 05-18-2023 15:51-0500 Diastolic blood pressure 86 mm[Hg] [facility] 05-18-2023 15:51-0500 Heart rate 88 /min [facility] 05-18-2023 15:51-0500 Respiratory rate 18 /min [facility] 05-18-2023 15:51-0500 SaO2% (BldA) [Mass fraction] 99 % [facility] 05-18-2023 15:51-0500 Systolic blood pressure 136 mm[Hg] [facility] 05-18-2023 14:08-0500 Body height 185.42 cm [facility] 05-18-2023 14:08-0500 Body mass index (BMI) [Ratio] 25.4 kg/m2 [facility] 05-18-2023 14:08-0500 Body weight 87.67 kg [facility] 04-10-2023 18:44-0500 Heart rate 79 /min [facility] 04-10-2023 18:44-0500 Respiratory rate 16 /min [facility] 04-10-2023 18:44-0500 SaO2% (BldA) [Mass fraction] 98 % [facility] 04-10-2023 16:36-0500 Body height 185.42 cm [facility] 04-10-2023 16:36-0500 Body mass index (BMI) [Ratio] 25.9 kg/m2 [facility] 04-10-2023 16:36-0500 Body temperature 98.1 [degF] [facility] 04-10-2023 16:36-0500 Body weight 89.1 kg [facility] 04-10-2023 16:36-0500 Diastolic blood pressure 100 mm[Hg] [facility] 04-10-2023 16:36-0500 Systolic blood pressure 152 mm[Hg] [facility] 03-09-2023 11:08-0500 Body height 185.42 cm [facility] 03-09-2023 11:08-0500 Body mass index (BMI) [Ratio] 23.3 kg/m2 [facility] 03-09-2023 11:08-0500 Body temperature 96.8 [degF] [facility] 03-09-2023 11:08-0500 Body weight 80.28 kg [facility] 03-09-2023 11:08-0500 Diastolic blood pressure 95 mm[Hg] [facility] 03-09-2023 11:08-0500 Heart rate 125 /min [facility] 03-09-2023 11:08-0500 Respiratory rate 18 /min [facility] 03-09-2023 11:08-0500 SaO2% (BldA) [Mass fraction] 100 % [facility] 03-09-2023 11:08-0500 Systolic blood pressure 123 mm[Hg] [facility] 11-09-2022 13:32-0400 Body height 185.42 cm [facility] 11-09-2022 13:32-0400 Body mass index (BMI) [Ratio] 25 kg/m2 [facility] 11-09-2022 13:32-0400 Body temperature 97 [degF] [facility] 11-09-2022 13:32-0400 Body weight 86.27 kg [facility] 11-09-2022 13:32-0400 Diastolic blood pressure 94 mm[Hg] [facility] 11-09-2022 13:32-0400 Heart rate 117 /min [facility] 11-09-2022 13:32-0400 Respiratory rate 22 /min [facility] 11-09-2022 13:32-0400 SaO2% (BldA) [Mass fraction] 99 % [facility] 11-09-2022 13:32-0400 Systolic blood pressure 151 mm[Hg] [facility] 06-16-2022 22:21-0400 Diastolic blood pressure 95 mm[Hg] [facility] 06-16-2022 22:21-0400 Heart rate 104 /min [facility] 06-16-2022 22:21-0400 Respiratory rate 18 /min [facility] 06-16-2022 22:21-0400 SaO2% (BldA) [Mass fraction] 97 % [facility] 04-04-2023 22:21-0400 Systolic blood pressure 133 mm[Hg] [facility] 06-16-2022 22:15-0400 Body height 185.42 cm [facility] 06-16-2022 22:15-0400 Body mass index (BMI) [Ratio] 25.2 kg/m2 [facility] 06-16-2022 22:15-0400 Body temperature 98.5 [degF] [facility] 06-16-2022 22:15-0400 Body weight 86.9 kg [facility] 08-22-2021 00:06-0400 Respiratory rate 17 /min [facility] Work Phone: 08-22-2021 00:05-0400 Diastolic blood pressure 74 mm[Hg] [facility] Work Phone: 08-22-2021 00:05-0400 Heart rate 74 /min [facility] Work Phone: 08-22-2021 00:05-0400 SaO2% (BldA) [Mass fraction] 98 % [facility] Work Phone: 08-22-2021 00:05-0400 Systolic blood pressure 132 mm[Hg] [facility] Work Phone: 08-21-2021 04:42-0400 Body temperature 98.9 [degF] [facility] Work Phone: 08-20-2021 15:33-0400 Body height 185.42 cm [facility] Work Phone: 08-20-2021 15:33-0400 Body mass index (BMI) [Ratio] 27.7 kg/m2 [facility] Work Phone: 08-20-2021 15:33-0400 Body weight 95.3 kg [facility] Work Phone: 08-19-2021 15:14-0400 Diastolic blood pressure 75 mm[Hg] [facility] Work Phone: 08-19-2021 15:14-0400 Heart rate 76 /min [facility] Work Phone: 08-19-2021 15:14-0400 Respiratory rate 16 /min [facility] Work Phone: 08-19-2021 15:14-0400 SaO2% (BldA) [Mass fraction] 97 % [facility] Work Phone: 08-19-2021 15:14-0400 Systolic blood pressure 123 mm[Hg] [facility] Work Phone: 08-19-2021 13:05-0400 Body height 185.42 cm [facility] Work Phone: 08-19-2021 13:05-0400 Body mass index (BMI) [Ratio] 28.3 kg/m2 [facility] Work Phone: 08-19-2021 13:05-0400 Body temperature 98 [degF] [facility] Work Phone: 08-19-2021 13:05-0400 Body weight 97.3 kg [facility] Work Phone: 06-15-2021 20:23-0400 Body height 185.42 cm [facility] Work Phone: 06-15-2021 20:23-0400 Body mass index (BMI) [Ratio] 28.4 kg/m2 [facility] Work Phone: 06-15-2021 20:23-0400 Body temperature 97.8 [degF] [facility] Work Phone: 06-15-2021 20:23-0400 Body weight 97.8 kg [facility] Work Phone: 06-15-2021 20:23-0400 Diastolic blood pressure 118 mm[Hg] [facility] Work Phone: 06-15-2021 20:23-0400 Heart rate 129 /min [facility] Work Phone: 06-15-2021 20:23-0400 Respiratory rate 20 /min [facility] Work Phone: 06-15-2021 20:23-0400 SaO2% (BldA) [Mass fraction] 96 % [facility] Work Phone: 06-15-2021 20:23-0400 Systolic blood pressure 164 mm[Hg] [facility] Work Phone: 03-18-2021 18:10-0500 Body mass index (BMI) [Ratio] 27.7 kg/m2 [facility] Work Phone: 03-18-2021 18:10-0500 Body temperature 98.2 [degF] [facility] Work Phone: 03-18-2021 18:10-0500 Body weight 95.25 kg [facility] Work Phone: 03-18-2021 18:10-0500 Diastolic blood pressure 104 mm[Hg] [facility] Work Phone: 03-18-2021 18:10-0500 Heart rate 115 /min [facility] Work Phone: 03-18-2021 18:10-0500 Respiratory rate 20 /min [facility] Work Phone: 03-18-2021 18:10-0500 SaO2% (BldA) [Mass fraction] 99 % [facility] Work Phone: 03-18-2021 18:10-0500 Systolic blood pressure 149 mm[Hg] [facility] Work Phone: 02-15-2021 10:51-0500 Diastolic blood pressure 81 mm[Hg] [facility] Work Phone: 02-15-2021 10:51-0500 Heart rate 82 /min [facility] Work Phone: 02-15-2021 10:51-0500 Systolic blood pressure 132 mm[Hg] [facility] Work Phone: 02-15-2021 09:23-0500 Body mass index (BMI) [Ratio] 28.2 kg/m2 [facility] Work Phone: 02-15-2021 09:23-0500 Body temperature 98.6 [degF] [facility] Work Phone: 02-15-2021 09:23-0500 Body weight 97 kg [facility] Work Phone: 02-15-2021 09:23-0500 Respiratory rate 18 /min [facility] Work Phone: 02-15-2021 09:23-0500 SaO2% (BldA) [Mass fraction] 98 % [facility] Work Phone: Encounters Encounter Date Encounter Type Care Provider Facility Start: 01-24-2025 ambulatory [facility] Start: 01-22-2025 ambulatory [facility] Start: 01-22-2025 ambulatory [facility] Start: 01-22-2025 Encounter for other preprocedural examination [facility] Start: 01-14-2025 End: 01-14-2025 Emergency department patient visit Neerajollie Antonio Facility:[facility] Start: 01-10-2025 End: 01-10-2025 ambulatory [facility] Start: 01-09-2025 End: 01-09-2025 Office outpatient visit 15 minutes Apoorva Griffin MD Work Phone: [facility] Comment on above: Herniated nucleus pu lposus, L4-5 (Primary Dx); Paresthesia of upper extremity; Spinal stenosis, cervical region; Pain of left lower extremity; Chronic bilateral low back pain with left-sided sciatica; Spinal stenosis of cervical region; Weakness of left foot; Neurogenic bowel; Back pain with radiculopathy; Cervical myelopathy; Left foot drop Start: 01-09-2025 End: 01-09-2025 ambulatory [facility] Start: 01-08-2025 End: 01-08-2025 ambulatory [facility] Start: 12-29-2024 End: 12-29-2024 ambulatory [facility] Start: 12-26-2024 End: 12-26-2024 Office outpatient visit 40 minutes Sha Foster MD Work Phone: [facility] Comment on above: Lumbar radiculopathy (Primary Dx) Start: 12-26-2024 End: 12-26-2024 ambulatory [place] [facility] Start: 12-17-2024 End: 12-17-2024 Emergency department patient visit Dr. Josafat Tinoco DO Work Phone: -Emergency Department Work Phone: Start: 12-15-2024 End: 12-15-2024 ambulatory [facility] Start: 12-12-2024 End: 12-12-2024 ambulatory [facility] Start: 12-08-2024 End: 12-08-2024 Emergency department patient visit Parrish Talbert MD Work Phone: [facility] Comment on above: Low back pain with l eft-sided sciatica, unspecified back pain laterality, unspecified chronicity (Primary Dx) Start: 12-08-2024 End: 12-08-[address] [facility] Start: 12-08-2024 End: 12-08-2024 Subsequent hospital visit by physician Juanita Mri 1 [facility] Comment on above: Myelopathy (Multi) Start: 12-05-2024 End: 12-05-2024 ambulatory [facility] Start: 12-01-2024 End: 12-01-2024 ambulatory [facility] Start: 11-24-2024 End: 11-24-2024 ambulatory [facility] Start: 11-21-2024 End: 11-21-2024 ambulatory [facility] Start: 11-16-2024 End: 11-16-2024 ambulatory [facility] Start: 11-14-2024 End: 11-14-2024 ambulatory [facility] Start: 11-10-2024 End: 11-11-2024 Emergency department patient visit Dr. Josafat Tinoco DO Work Phone: -Emergency Department Work Phone: Start: 11-10-2024 End: 11-10-2024 Office outpatient visit 25 minutes Sha Foster MD Work Phone: [facility] Comment on above: Myelopathy (Multi) Start: 11-10-2024 End: 11-10-2024 ambulatory [place] [facility] Start: 10-31-2024 End: 10-31-2024 Office outpatient visit 25 minutes Apoorva Griffin MD Work Phone: [facility] Comment on above: Herniated nucleus pu lposus, L4-5 (Primary Dx); Paresthesia of upper extremity; Spinal stenosis, cervical region; Pain of left lower extremity; Chronic bilateral low back pain with left-sided sciatica; Spinal stenosis of cervical region; Weakness of left foot; Neurogenic bowel; Back pain with radiculopathy; Left foot drop; Cervical myelopathy Start: 10-31-2024 End: 10-31-2024 ambulatory [facility] Start: 10-23-2024 End: 10-23-2024 Emergency department patient visit Dr. Josafat Tinoco DO Work Phone: -Emergency Department Work Phone: Start: 10-16-2024 End: 10-16-2024 ambulatory [facility] Start: 10-12-2024 End: 10-12-2024 Subsequent hospital visit by physician [facility] Comment on above: Herniated nucleus pu lposus, L4-5; Pain of left lower extremity; Weakness of left foot; Neurogenic bowel; Left foot drop Start: 10-12-2024 End: 10-12-2024 ambulatory [facility] Start: 10-02-2024 End: 10-02-2024 ambulatory [facility] Start: 10-02-2024 End: 10-02-2024 Office outpatient new 60 minutes Apoorva Grififn MD Work Phone: [facility] Comment on above: Herniated nucleus pu lposus, L4-5 (Primary Dx); Paresthesia of upper extremity; Spinal stenosis, cervical region; Spinal stenosis of cervical region; Chronic bilateral low back pain with left-sided sciatica; Pain of left lower extremity; Weakness of left foot; Neurogenic bowel; Back pain with radiculopathy; Cervical myelopathy; Left foot drop Start: 07-24-2024 End: 07-24-2024 ambulatory [facility] Start: 07-24-2024 End: 07-24-2024 Office outpatient new 45 minutes Suraj Meyers MD Work Phone: [facility] Comment on above: Back pain with radic ulopathy Start: 07-19-2024 End: 07-19-2024 Office outpatient new 60 minutes Radha Dixon DO Work Phone: [facility] Comment on above: Cervical myelopathy (Primary Dx); Back pain with radiculopathy Start: 07-19-2024 End: 07-19-2024 ambulatory [facility] Start: 07-13-2024 End: 07-14-2024 Emergency department patient visit JOSAFAT [facility] Comment on above: Acute exacerbation o f chronic low back pain (Primary Dx) Start: 06-28-2024 Encounter for genera l adult medical examination without abnormal findings [facility] Start: 06-28-2024 End: 06-28-2024 Office outpatient new 60 minutes Josafat Tinoco DO Work Phone: [facility] Comment on above: Preventative health care (Primary Dx); Other chronic pain; Vitamin D deficiency; Attention deficit hyperactivity disorder (ADHD), unspecified ADHD type; Hyperlipidemia, unspecified hyperlipidemia type; Bipolar affective disorder, remission status unspecified (Multi); Hyperverbal speech Start: 06-28-2024 End: 06-28-2024 Patient encounter status Josafat Tinoco DO Work Phone: [facility] Work Phone: Start: 06-28-2024 ambulatory [facility] Start: 06-28-2024 Encounter for genera l adult medical examination without abnormal findings [facility] Start: 06-15-2024 End: 06-15-2024 Emergency department patient visit Lisa Polanco MD Work Phone: [facility] Emergency [facility] Comment on above: Sciatica of left brice e (Primary Dx) Start: 06-06-2024 End: 06-06-2024 Office outpatient visit 25 minutes Sha Foster MD Work Phone: [facility] Comment on above: Cervical radiculopat hy (Primary Dx) Start: 06-06-2024 End: 06-06-2024 Subsequent hospital visit by physician Juanita Hay X-Ray 2 [facility] Comment on above: Cervical radiculopat hy Start: 06-06-2024 End: 06-06-[address] [facility] Start: 05-19-2024 End: 05-19-2024 [facility] Comment on above: Accidental fall, ini tial encounter (Primary Dx); Neck sprain, initial encounter; Lumbar radiculopathy, acute; Leg weakness, bilateral Start: 03-07-2024 End: 03-07-2024 Postop follow up visit related to original px Sha Foster MD Work Phone: [facility] Comment on above: Cervical radiculopat hy (Primary Dx) Start: 03-07-2024 End: 03-07-2024 Subsequent hospital visit by physician Juanita Hay X-Ray 3 [facility] Comment on above: Cervical radiculopat hy Start: 03-07-2024 End: 03-07-[address] [facility] Start: 02-28-2024 End: 02-28-2024 Patient encounter procedure Jeff Nichols MD Work Phone: [facility] Comment on above: Arrived Start: 02-28-2024 End: 02-28-2024 ambulatory JEFF NICHOLS Start: 02-22-2024 Evaluation and manag ement of inpatient [facility] Start: 02-22-2024 End: 02-26-2024 Evaluation and management of inpatient Sha Foster MD Work Phone: [facility] 6 Comment on above: Spinal stenosis ([place] Dx); Spinal stenosis, cervical region; Abscess of axilla, left Start: 02-22-2024 Evaluation and manag [facility]ment of inpatient [facility] [facility] Start: 02-22-2024 End: 02-22-2024 Office outpatient visit 40 minutes Sha Foster MD Work Phone: [facility] Comment on above: Cervical radiculopat hy Start: 02-22-2024 End: 02-22-[address] [facility] Start: 02-17-2024 End: 02-17-2024 Subsequent hospital visit by physician Nicholas Ruano [facility] Comment on above: Back pain with radic ulopathy Start: 02-17-2024 End: 02-17-2024 ambulatory [facility] Start: 02-08-2024 End: 02-09-2024 Emergency department patient visit [facility] Comment on above: Lumbosacral radiculi tis (Primary Dx) Start: 02-08-2024 End: 02-08-2024 Office outpatient visit 40 minutes Sha Foster MD Work Phone: [facility] Comment on above: Back pain with radic ulopathy (Primary Dx) Start: 02-08-2024 End: 02-08-[address] [facility] Start: 01-29-2024 End: 01-29-2024 Emergency department patient visit Zuleyka Bryant DO Work Phone: [facility] Comment on above: Chronic bilateral lo w back pain with bilateral sciatica (Primary Dx); Incontinence of feces with fecal urgency Start: 12-14-2023 End: 12-14-2023 Office outpatient visit 25 minutes Sha Foster MD Work Phone: [facility] Comment on above: Lumbar pain (Primary Dx); Lumbar radiculopathy Start: 12-12-2023 End: 12-12-2023 Emergency department patient visit [facility] Comment on above: Acute exacerbation o f chronic low back pain (Primary Dx) Start: 12-07-2023 End: 12-07-2023 Emergency department patient visit [facility] Start: 11-14-2023 End: 11-15-2023 Emergency department patient visit [facility] Start: 08-28-2023 End: 08-28-2023 Emergency department patient visit [facility] Start: 05-18-2023 End: 05-18-2023 Emergency department patient visit [facility] Work Phone: Start: 05-04-2023 End: 05-04-2023 Subsequent hospital visit by physician Juanita Hay X-Ray 1 [facility] Comment on above: Lumbar pain Start: 05-04-2023 End: 05-04-2023 Office outpatient new 45 minutes Sha Foster MD Work Phone: [facility] Comment on above: Lumbar pain (Primary Dx); Lumbar radiculopathy Start: 04-10-2023 End: 04-10-2023 [facility] Start: 03-09-2023 End: 03-09-2023 [facility] Work Phone: Start: 12-04-[address] Sha Foster Facility:[id number] Start: 11-09-2022 End: 11-09-2022 [facility] Work [facility]: Start: 06-16-2022 End: 06-16-2022 [facility] Start: 03-17-[address] Sha Foster Facility:[id number] Start: 08-20-2021 End: 08-22-2021 [facility] Start: 08-19-2021 End: 08-19-2021 [facility] Start: 06-15-2021 End: 06-15-2021 [facility] Start: 03-18-2021 End: 03-18-2021 [facility] Start: 02-15-2021 End: 02-15-2021 [facility] Start: 02-15-2018 Patient encounter procedure SHA FOSTER Facility:[id number] Start: 01-26-2018 Patient encounter procedure SHA FOSTER Facility:[facility] Start: 01-04-2018 Patient encounter procedure SHA FOSTER Facility:[id number] Start: 10-19-2017 Patient encounter procedure TUAN ALBARADO Facility:[id number] Start: 06-25-2017 Patient encounter procedure SHA FOSTER Facility:[id number] Start: 05-27-2017 End: 05-27-2017 Emergency department patient visit TOM WESLEY Facility:[facility] [employer] Procedures Date Procedure Procedure Detail Performing Clinician Start: 12-17-2024 Urnls dip stick/tabl et reagent auto microscopy Dr. Josafat Tinoco DO Work Phone: Start: 12-17-2024 End: 12-17-2024 Polymerase chain reaction analysis Dr. Josafat Tinoco DO Work Phone: Start: 12-08-2024 Ct lumbar spine w/o contrast material Parrish Talbert MD Work Phone: Start: 07-14-2024 Drug tst prsmv instr mnt chem analyzers pr date Ines Salter [employer] Work Phone: Start: 07-14-2024 Blood count complete auto&auto difrntl wbc Inesharika Salter [employer] Work Phone: Start: 07-14-2024 Urnls dip stick/tabl et rgnt auto w/o microscopy Inesharika Salter [employer] Work Phone: Start: 07-13-2024 Ct abdomen w/o contr ast material Inesharika Salter [employer] Work Phone: Start: 07-13-2024 Comprehensive metabo lic panel Inesharika Peralesedulio Work Phone: Start: 06-06-2024 Radex spine cervical [...] 02-24-2024 Basic metabolic panel calcium total Jewels N Ovidio MANAGER EMERGENCY DEPARTMENT-SUPERVISOR [employer] Work Phone: Start: 02-24-2024 EXTRA TUBES Sha lomax MD Work Phone: Start: 02-24-2024 SST TOP Sha lomax MD Work Phone: Start: 02-23-2024 Ecg routine ecg w/le ast 12 lds trcg only w/o i&r Jewels N Ovidio MANAGER EMERGENCY DEPARTMENT-SUPER[employer]OR [employer] Work Phone: Start: 02-23-2024 Drug screen quantita tive vancomycin Param Bogner PharmD Start: 02-23-2024 Cul bact xcpt urine blood/stool aerobic isol Qi Durantnereyda MANAGER EMERGENCY DEPARTMENT-SUPERVISOR [employer] Work Phone: Start: 02-23-2024 Drug screen quantita tive vancomycin Param Bogner PharmD Start: 02-23-2024 EXTRA TUBES Sha lomax MD Work Phone: Start: 02-23-2024 LAVENDER TOP Sha lomax MD Work Phone: Start: 02-22-2024 Ct thorax w/contrast material Haley Yates MANAGER EMERGENCY DEPARTMENT-SUPERVISOR [employer] Work Phone: Start: 02-22-2024 Culture bacterial bl ood aerobic w/id isolates Haley Yates MANAGER EMERGENCY DEPARTMENT-SUPERVISOR [employer] Work Phone: Start: 02-22-2024 End: 02-22-2024 C-reactive protein Haley Yates MANAGER EMERGENCY DEPARTMENT-SUPERVISOR [employer] Work Phone: Start: 02-22-2024 End: 02-22-2024 Comprehensive [...] of 2) Zoster Vaccines (1 of 2) [facility] Start: 02-25-2027 Diabetes mellitus screening Diabetes Screening [facility] Start: 06-29-2025 Yearly Adult Physical Yearly Adult Physical [facility] Start: 05-08-2025 End: 05-08-2025 Patient encounter procedure 05/08/2025 10:00 AM EST Office Visit [facility] [address] [place] [address] Apoorva Griffin MD [address] [place], [place] [id number] [facility] Start: 02-20-2025 End: 02-20-2025 Patient encounter procedure 02/20/2025 1:45 PM EST Office Visit [facility] [address] [place] [address] Sha Foster MD [address] [facility], [address] [place], [place] [phone] [facility] Start: 02-05-2025 End: 02-05-2025 LAMINECTOMY, DECOMPRESSIVE, SPINE, LUMBAR, 1 LEVEL, WITH FUSION USING INSTRUMENTATION LAMINECTOMY, DECOMPRESSIVE, SPINE, LUMBAR, 1 LEVEL, WITH FUSION USING INSTRUMENTATION Spinal stenosis, lumbosacral region 02/05/2025 7:30 AM EST [facility] Start: 02-05-2025 End: 02-05-2025 Transcribe Orders [facility] Comment on above: Pre-op testing (Primary Dx) Spinal stenosis, lum bosacral region (Primary Dx) L5-S1 LAMINECTOMY, I NSTRUMENTATION, POSTERIOR INTERBODY FUSION, POSTERIOR LATERAL FUSION [[id number] ([facility] )] Start: 01-29-2025 End: 01-29-2025 Patient encounter procedure 01/29/2025 9:00 AM EST Office Visit [facility] [place] [address] [address] Josafat Tinoco DO [address] [facility], [address] [address] [facility] Start: 01-26-2025 End: 01-26-2025 Patient encounter procedure 01/26/2025 1:30 PM EST Office Visit [facility] [address] [place] [address] Dev Martel PA-C [address] [place] [address] [id number] [facility] Start: 01-22-2025 End: 01-22-2025 Admission to establishment 01/22/2025 1:00 PM EST Pre-Admission Testing [facility] [address] [facility] [address] [facility] Start: 01-10-2025 End: 01-10-2025 ambulatory 01/10/2025 4:00 PM EDT [facility] [address] [place] [phone] Natividad Ferguson, VETERANS REH[employer]ILIT[employer] COUNSELOR [address] [place] [address] [facility] Start: 01-09-2025 End: 01-09-2025 Patient encounter procedure 01/09/2025 10:45 AM EDT Office Visit [facility] [address] [facility] [address] [place] [phone] Apoorva Griffin MD [address] [facility] [address] [place] [address] [facility] Start: 01-08-2025 End: 01-08-2025 ambulatory 01/08/2025 12:00 PM EDT [facility] [address] [place] [phone] [place] [address] [place] [address] Toya Diaz [facility] Start: 01-03-2025 End: 01-03-2025 ambulatory 01/03/2025 3:15 PM EDT Treatment [facility] [address] [place] [phone] Natividad Ferguson, VETERANS REHABILITATION COUNSELOR [address] [place] [address] Toya Diaz [facility] Start: 12-29-2024 End: 12-29-2024 ambulatory 12/29/2024 3:30 PM EDT [facility] [address] [place] [address] Natividad Ferguson, VETERANS REHABILITATION COUNSELOR [address] [place] [address] Toya Diaz [facility] Start: 12-26-2024 End: 12-26-2024 Patient encounter procedure 12/26/2024 1:00 PM EDT Office Visit [facility] [address] [phone] Sha Foster MD [address] [facility], [address] [place] [id number] [facility] Start: 12-17-2024 [facility] Start: 12-15-2024 End: 12-15-2024 ambulatory 12/15/2024 1:15 PM EDT [facility] [address] [place] [address] Natividad Ferguson, VETERANS REHABILITATION COUNSELOR [address] [place] [address] [facility] Port[facility] Start: 12-12-2024 End: 12-12-2024 ambulatory 12/12/2024 2:00 PM EDT Treatment [facility] [address] [place] [address] [place] [address] [place] [address] [facility] Start: 12-08-2024 End: 12-08-2024 ambulatory 12/08/2024 10:45 AM EDT Treatment [facility] [address] [place] [address] [place] [address] [place] [address] Toya Diaz [facility] Start: 12-05-2024 End: 12-05-2024 ambulatory 12/05/2024 2:45 PM EDT Treatment Toya Diaz [facility] [address] [place] [address] [place] [address] [place] [address] Toya Diaz [facility] Start: 12-01-2024 End: 12-01-2024 ambulatory 12/01/2024 3:30 PM EDT Treatment Toya Diaz [facility] [address] [place] [address] Natividad Ferguson, VETERANS REHABILITATION COUNSELOR [address] [place] [address] Toya Diaz [facility] Start: 11-28-2024 End: 11-28-2024 ambulatory 11/28/2024 10:30 AM EDT Treatment [facility] [address] [place] [address] Natividad Ferguson, VETERANS REHABILITATION COUNSELOR [address] [place] [address] Toya Diaz [facility] Start: 11-24-2024 End: 11-24-2024 ambulatory 11/24/2024 10:45 AM EDT Treatment Toya Diaz [facility] [address] [place] [address] [place] [address] [place] [address] Toya Diaz [facility] Start: 11-21-2024 End: 11-21-2024 ambulatory 11/21/2024 9:00 AM EDT Treatment [facility] [address] [place] [address] Natividad Ferguson, VETERANS REHABILITATION COUNSELOR [address] [place] [address] [facility] Start: 11-16-2024 End: 11-16-2024 ambulatory 11/16/2024 11:15 AM EDT Treatment [facility] [address] [place] [address] [place] [address] [place] [address] [facility] Start: 11-14-2024 End: 11-14-2024 ambulatory 11/14/2024 10:30 AM EDT Treatment [facility] [address] [place] [address] Natividad Ferguson, VETERANS REHABILITATION COUNSELOR [address] [place] [address] [facility] Start: 11-13-2024 COVID-19 Vaccine ( season) COVID-19 Vaccine ( season) [facility] Start: 11-13-2024 COVID-19 Vaccine ( season) COVID-19 Vaccine ( season) [facility] Start: 11-13-2024 Influenza vaccination [facility] Start: 11-11-2024 [facility] Start: 11-10-2024 End: 11-10-2025 MR Cervical spine WO contrast MR cervical spine wo IV contrast Imaging Routine Myelopathy (Multi) Expected: 11/10/2024 (Approximate), Expires: 11/10/2025 [facility] Service Area Work Phone: Comment on above: Expected: 11/10/2024 (Approximate), Expi res: 11/10/2025 Start: 11-10-2024 End: 11-10-2025 MR Thoracic spine WO contrast MR thoracic spine wo IV contrast Imaging Routine Myelopathy (Multi) Expected: 11/10/2024 (Approximate), Expires: 11/10/2025 [facility] Work Phone: Comment on above: Expected: 11/10/2024 (Approximate), Expi res: 11/10/2025 Start: 10-31-2024 End: 10-31-2024 Patient encounter procedure 10/31/2024 10:00 AM EDT Office Visit [facility] [address] [facility] [address] [place] [phone] Apoorva Griffin MD [address] [facility] [address] [place] [address] [facility] Start: 10-16-2024 End: 10-16-2024 Clinical Support 10/16/2024 4:00 PM EDT Clinical Support [facility] [address] [place] [address] Zuri Melo, SAMEER [address] [place] [address] [facility] Start: 10-13-2024 Influenza vaccination [facility] Start: 10-12-2024 End: 10-12-2024 Patient encounter procedure 10/12/2024 1:45 PM EDT Appointment [address] [address] [facility] Start: 10-02-2024 End: 10-02-2025 MR Lumbar spine WO contrast MR lumbar spine wo IV contrast Imaging Routine Herniated nucleus pulposus, L4-5 Pain of left lower extremity Weakness of left foot Neurogenic bowel Left foot drop Expected: 10/02/2024, Expires: 10/02/2025 [facility] Service Area Work Phone: Comment on above: Expected: 10/02/2024, Expires: Start: 10-02-2024 End: 10-02-2024 Patient encounter procedure 10/02/2024 11:30 AM EDT Consult [facility] [address] [place] [address] Apoorva Griffin MD [address] [place] [address] [facility] Start: 07-24-2024 End: 07-24-2024 Patient encounter procedure 07/24/2024 8:30 AM EDT Office Visit [address] [place] [address] Suraj Meyers MD [address] [place] [address], [address] [place] [address] [facility] Start: 07-19-2024 End: 07-19-2024 Patient encounter procedure 07/19/2024 10:50 AM EDT Office Visit [facility] [address] [facility] [address] [place] [address] Radha Dixon DO [address] [place] [address] [facility] Start: 07-04-2024 End: 07-04-2024 Patient encounter procedure 07/04/2024 8:30 AM EDT Office Visit [facility] [address] [place] [address] Sha Foster MD [address] [facility], [address] [place] [address] [facility] Start: 06-28-2024 End: 06-28-2024 Patient encounter procedure 06/28/2024 9:20 AM EDT Office Visit [facility] [address] [facility] [address] [place] [phone] Josafat Tinoco DO [address] [facility], [facility] [address] [place] [address] [facility] Start: 06-06-2024 End: 06-06-2025 XR Cervical spine 2 or 3 Views [facility] Service Area Work Phone: Comment on above: Expected: 06/06/2024, Expires: Start: 06-06-2024 End: 06-06-2024 Patient encounter procedure 06/06/2024 11:00 AM EDT Office Visit [facility] [address] [place] [phone] Sha Foster MD [address] [facility], [address] [place] [address], [place] [address] [facility] Start: 03-13-2024 End: 03-13-2024 Patient encounter procedure 03/13/2024 9:30 AM EST Office Visit [address] [place] [phone] Jeff Nichols MD [address] [place] [address] [facility] [address] [place], [place] [phone] [facility] Start: 03-07-2024 End: 03-07-2024 Patient encounter procedure 03/07/2024 11:15 AM EST Office Visit [facility] [address] [place] [address] Sha Foster MD [address] [facility], [address] [place] [address], [place] [phone] [facility] Start: 03-02-2024 Documentation procedure 03/02/2024 Scanned Document [facility] [address] [place] [address] Sha Foster MD [address] [facility], [address] [place] [address], [place] [address] [facility] Start: 02-28-2024 End: 02-28-2024 Patient encounter procedure 02/28/2024 9:30 AM EST Office Visit [facility] [address] [place] [address] Jeff Nichols MD [address] [place] [address] [address] [place] [address] [facility] Start: 02-22-2024 End: 02-22-2024 Patient encounter procedure 02/22/2024 10:30 AM EST Office Visit [facility] [address] [place] [address] Sha Foster MD [address] [facility], [address] [place] [address], [place] [address] [facility] Start: 02-08-2024 End: 02-07-2025 MR Cervical spine WO contrast MR cervical spine wo IV contrast Imaging STAT Back pain with radiculopathy Expected: 02/08/2024, Expires: 02/07/2025 [facility] Service Area Work Phone: Comment on above: Expected: 02/08/2024, Expires: Start: 02-08-2024 End: 02-07-2025 MR Lumbar spine W contrast IV MR lumbar spine w IV contrast Imaging STAT Back pain with radiculopathy Expected: 02/08/2024, Expires: 02/07/2025 [facility] Work Phone: Comment on above: Expected: 02/08/2024, Expires: Start: 02-08-2024 End: 02-07-2025 MR Thoracic spine WO contrast MR thoracic spine wo IV contrast Imaging STAT Back pain with radiculopathy Expected: 02/08/2024, Expires: 02/07/2025 [facility] Work Phone: Comment on above: Expected: 02/08/2024, Expires: 5 Start: 12-14-2023 End: 12-13-2024 MR Lumbar spine WO and W contrast IV MR lumbar spine w and wo IV contrast Imaging Routine Lumbar pain Lumbar radiculopathy Expected: 12/14/2023 (Approximate), Expires: 12/13/2024 [facility] Service Area Work Phone: Comment on above: Expected: 12/14/2023 (Approximate), Expi res: 12/13/2024 Start: 11-14-2023 COVID-19 Vaccine ( season) COVID-19 Vaccine ( season) [facility] Start: 11-14-2023 COVID-19 Vaccine ( season) COVID-19 Vaccine ( season) [facility] Start: 11-14-2023 Influenza vaccination Influenza Vaccine (#1) [facility] Start: 10-14-2023 Influenza vaccination Flu vaccine (#1) [facility] Start: 05-18-2023 [facility] Start: 05-18-2023 End: 05-18-2023 Patient encounter procedure 05/18/2023 2:00 PM EST Appointment [address] [address] [facility] Start: 05-04-2023 End: 05-04-2024 MR Lumbar spine WO and W contrast IV MR lumbar spine w and wo IV contrast Imaging Routine Lumbar pain Lumbar radiculopathy Expected: 05/04/2023 (Approximate), Expires: 05/04/2024 [facility] Service Area Work Phone: Comment on above: Expected: 05/04/2023 (Approximate), Expi res: 05/04/2024 Start: 04-10-2023 [facility] Start: 03-09-2023 [facility] Start: 11-13-2022 Influenza vaccination Influenza Vaccine (#1) [facility] Start: 09-28-2022 Lipid panel Lipid Panel [facility] Start: 06-16-2022 Electrocardiographic procedure [facility] Start: 06-16-2022 Plain chest X-ray Chest 1 View (Portable) [facility] Start: 06-16-2022 Troponin I measurement [facility] Start: 06-16-2022 [facility] Start: 2021 Lipid panel Lipids [facility] Start: 09-28-2020 Diabetes mellitus screening Diabetes Screening [facility] Start: 09-28-2018 Hemoglobin A1c measurement Diabetes: Hemoglobin A1C [facility] Start: 11-17-2013 DTaP/Tdap/Td Vaccines (1 - Tdap) DTaP/Tdap/Td Vaccines (1 - Tdap) [facility] Start: 2008 HPV Vaccines (1 - 3-dose standard series) HPV Vaccines (1 - 3-dose standard series) [facility] Start: 08-12-2003 DTaP/Tdap/Td Vaccines (1 - Tdap) DTaP/Tdap/Td Vaccines (1 - Tdap) [facility] Start: 2000 DTaP/Tdap/Td vaccine (1 - Tdap) DTaP/Tdap/Td vaccine (1 - Tdap) [facility] Start: 2000 Hepatitis A Vaccines (1 of 2 - Risk 2-dose series) Hepatitis A Vaccines (1 of 2 - Risk 2-dose series) [facility] Start: 2000 Hepatitis B vaccine (1 of 3 - 19+ 3-dose series) Hepatitis B vaccine (1 of 3 - 19+ 3-dose series) [facility] Start: 2000 Hepatitis B Vaccines (1 of 3 - 19+ 3-dose series) Hepatitis B Vaccines (1 of 3 - 19+ 3-dose series) [facility] Start: 2000 Pneumococcal 0-49 years Vaccine (1 of 2 - PCV) Pneumococcal 0-49 years Vaccine (1 of 2 - PCV) [facility] Start: 2000 Pneumococcal Vaccine: Pediatrics and At-Risk Adult Patients (1 of 2 - PCV) Pneumococcal Vaccine: Pediatrics and At-Risk Adult Patients (1 of 2 - PCV) [facility] Start: 08-12-1999 Hepatitis C screening [facility] Start: 1996 HIV screening HIV screen [facility] Start: 1994 Varicella vaccination Varicella Vaccines (1 of 2 - 13+ 2-dose series) [facility] Start: 1994 Varicella vaccine (1 of 2 - 13+ 2-dose series) Varicella vaccine (1 of 2 - 13+ 2-dose series) [facility] Start: 1993 Depression Screen Depression Screen [facility] Start: 08-12-1987 Pneumococcal 0-64 years Vaccine (1 of 2 - PCV) Pneumococcal 0-64 years Vaccine (1 of 2 - PCV) [facility] Start: 08-12-1987 Pneumococcal Vaccine: Pediatrics (0 to 5 Years) and At-Risk Patients (6 to 64 Years) (1 of 2 - PCV) Pneumococcal Vaccine: Pediatrics (0 to 5 Years) and At-Risk Patients (6 to 64 Years) (1 of 2 - PCV) [facility] Start: 1982 MMR Vaccines (1 of 1 - Standard series) MMR Vaccines (1 of 1 - Standard series) [facility] Start: 1982 Varicella vaccination Varicella Vaccines (1 of 2 - 2-dose childhood series) [facility] Start: 02-11-1982 COVID-19 Vaccine (#1) COVID-19 Vaccine (#1) [facility] Start: 1981 Hepatitis B Vaccines (1 of 3 - 3-dose series) Hepatitis B Vaccines (1 of 3 - 3-dose series) [facility] Start: 1981 Yearly Adult Physical Yearly Adult Physical [facility] Alanine aminotransfe rase [Enzymatic activity/volume] in Serum or Plasma [facility] Albumin [Mass/volume ] in Serum or Plasma [facility] Alkaline phosphatase [Enzymatic activity/volume] in Serum or Plasma [facility] Anion gap measurement [facility] Aspartate aminotrans ferase [Enzymatic activity/volume] in Serum or Plasma [facility] Bacteria identified in Blood by Culture Blood Culture Microbiology Routine 02/22/2024 8:36 PM [facility] Work Phone: End: 02-23-2024 Bacteria identified in Unspecified specimen by Culture Tissue/Wound Culture/Smear Microbiology Routine Once (Lab) for 1 Occurrences starting 02/23/2024 until 02/23/2024 [facility] Work Phone: Comment on above: Once (Lab) for 1 Occurrences starting until 02/23/2024 End: 02-27-2024 Basic metabolic 2000 panel - Serum or Plasma Basic metabolic panel Lab Routine Morning draw (Lab) for 3 Occurrences starting 02/25/2024 until 02/27/2024, 2 completed [facility] Work Phone: Comment on above: Morning draw (Lab) for 3 Occurrences sta rting 02/25/2024 until 02/27/2024, 2 completed Bilirubin, total measurement [facility] BUN/Creatinine ratio [facility] Calcium [Mass/volume ] in Serum or Plasma [facility] Carbon dioxide, tota l [Moles/volume] in Serum or Plasma [facility] End: 02-27-2024 CBC panel - Blood by Automated count CBC Lab Routine Morning draw (Lab) for 3 Occurrences starting 02/25/2024 until 02/27/2024, 2 completed [facility] Work Phone: Comment on above: Morning draw (Lab) for 3 Occurrences sta rting 02/25/2024 until 02/27/2024, 2 completed Chloride [Moles/volu me] in Serum or Plasma [facility] Creatinine [Moles/vo lume] in Serum or Plasma [facility] ECG 12 lead ECG 12 lead ECG STAT 02/23/2024 2:38 PM [facility] Work Phone: End: 02-22-2024 Extra Urine Castrejon Tube Extra Urine Castrejon Tube Lab Timed Once for 1 Occurrences starting 02/22/2024 until 02/22/2024 [facility] Work Phone: Comment on above: Once for 1 Occurrences starting 02/22/20 until 02/22/2024 Glucose [Mass/volume ] in Serum or Plasma [facility] End: 02-22-2024 Glucose [Mass/volume] in Serum or Plasma POCT Glucose Point of Care Testing - Docked Device Routine Once (Lab) for 1 Occurrences starting 02/22/2024 until 02/22/2024 [facility] Work Phone: Comment on above: Once (Lab) for 1 Occurrences starting until 02/22/2024 Glucose [Mass/volume ] in Serum or Plasma POCT Glucose Point of Care Testing - Docked Device Routine As needed (Lab) until discontinued starting 02/24/2024 [facility] Work Phone: Comment on above: As needed (Lab) until discontinued start ing 02/24/2024 Hematocrit [Volume F raction] of Blood [facility] Hemoglobin [Mass/vol ume] in Blood [facility] End: 02-24-2024 Incentive spirometry Instruct Incentive spirometry Instruct Respiratory Care Routine Once for 1 Occurrences starting 02/24/2024 until 02/24/2024 [facility] Work Phone: Comment on above: Once for 1 Occurrences starting 02/24/20 until 02/24/2024 Leukocytes [#/volume ] in Blood [facility] Mean corpuscular hem oglobin concentration determination [facility] Mean corpuscular hem oglobin determination [facility] Measurement of renal function [facility] End: 02-17-2024 MR Cervical spine WO contrast [facility] Service Area Work Phone: Comment on above: Once for 1 Occurrences starting 02/17/20 until 02/17/2024 End: 12-08-2024 MR Cervical spine WO contrast [facility] Service Area Work Phone: Comment on above: Once for 1 Occurrences starting 12/09/19 until 12/08/2024 End: 02-17-2024 MR Lumbar spine WO and W contrast IV [facility] Service Area Work Phone: Comment on above: Once for 1 Occurrences starting 02/17/20 until 02/17/2024 End: 10-12-2024 MR Lumbar spine WO contrast [facility] Service Area Work Phone: Comment on above: Once for 1 Occurrences starting 10/13/19 until 10/12/2024 End: 02-17-2024 MR Thoracic spine WO contrast [facility] Area Work Phone: Comment on above: Once for 1 Occurrences starting 02/17/20 until 02/17/2024 End: 12-08-2024 MR Thoracic spine WO contrast [facility] Area Work Phone: Comment on above: Once for 1 Occurrences starting 12/09/19 until 12/08/2024 Neutrophil count [facility] Neutrophil percent differential count [facility] Patient Education [facility] Work Phone: Patient referral [facility] Work Phone: Platelets [#/volume] in Blood [facility] Potassium [Moles/vol ume] in Serum or Plasma [facility] Red blood cell count [facility] Red cell distributio n width determination [facility] Sodium [Moles/volume ] in Serum or Plasma [facility] Total protein measurement [facility] Urea nitrogen [Mass/ volume] in Serum or Plasma [facility] End: 02-22-2024 Urinalysis complete W Reflex Culture panel - Urine [facility] Work Phone: Comment on above: Once (Lab) for 1 Occurrences starting until 02/22/2024 Once for 1 Occurrenc es starting 02/22/2024 until 02/22/2024 Immunizations Immunization Date Immunization Notes Care Provider Ashley ricardo 11-16-2013 tetanus and diphther ia toxoids, adsorbed, preservative free, for adult use (2 Lf of tetanus toxoid and 2 Lf of diphtheria toxoid) [facility] Payers Date Payer Category Payer Self-pay [id number] 2018 Medicaid (Managed Care) 1.2. [id number] 2018 Unknown AVANI CARDENAS [id number] 2018-Present [address] [place] [address] [id number]. 7.3.702805.315 2013 Unknown [id number] 2013 Unknown [id number] 1981 Unknown [id number] 2.840.1.841795.3.579.2. 355 1981 Unknown [id number] 2.840.1.675300.3.579.2. 1981 Unknown [id number] 2.840.1.273713.3.579.2. 355 1981 Unknown [id number] 2840.1.637107.3.579.2. 1981 Unknown [id number] 2.840.1.515543.3.579.2. 355 1981 Unknown [id number] 840.1.592464.3.579.2. 355 1981 Unknown [id number] 2.840.1.292797.3.579.2. 1067 1981 Unknown [id number] 2840.1.198211.3.579.2. 106 1981 Unknown [id number] 2.840.1.924634.3.579.2. 182 1981 Unknown [id number] 2.840.1.144205.3.579.2. 182 1981 Unknown [id number] 2840.1.248304.3.579.2. 182 1981 Unknown [id number] 2.840.1.591102.3.579.2. 182 1981 Unknown [id number] 2.16840.1.103668.3.579.2. 182 1981 Unknown [id number] 2.16840.1.204570.3.579.2. 182 1981 Unknown [id number] 2.16840.1.764785.3.579.2. 182 1981 Unknown [id number] 2.840.1.392282.3.579.2. 182 1981 Unknown [id number] 2.840.1.847406.3.579.2. 182 1981 Unknown [id number] 2.0.1.451640.3.579.2. 1242 1981 Unknown [id number] 2.840.1.108559.3.579.2. 1242 1981 Unknown [id number] 2.840.1.210524.3.579.2. 1242 1981 Unknown [id number] 2.840.1.842877.3.579.2. 1242 1981 Unknown [id number] 2.840.1.053904.3.579.2. 1244 1981 Unknown [id number] 2.840.1.560418.3.579.2. 1243 1981 Unknown [id number] 2.840.1.148600.3.579.2. 1243 1981 Unknown [id number] 2.840.1.982796.3.579.2. 1243 1981 Unknown [id number] 2.840.1.011465.3.579.2. 1243 1981 Unknown [id number] 2.840.1.777915.3.579.2. 1243 1981 Unknown [id number] 2.840.1.366684.3.579.2. 1245 1981 Unknown [id number] 2.16.840.1.000183.3.579.2. 1245 1981 Unknown [id number] 2.16840.1.700536.3.579.2. 1245 1981 Unknown [id number] 2.16.840.1.654515.3.579.2. 1245 1981 Unknown [id number] 2.16840.1.492148.3.579.2. 1245 1981 Unknown [id number] 2.16840.1.196571.3.579.2. 1245 1981 Unknown [id number] 2.840.1.472010.3.579.2. 1245 1981 Unknown [id number] 2.840.1.371535.3.579.2. 1245 1981 Unknown [id number] 2.840.1.676656.3.579.2. 1245 1981 Unknown [id number] 2.840.1.638346.3.579.2. 1245 1981 Unknown [id number] 2.840.1.773413.3.579.2. 1245 1981 Unknown [id number] 2.840.1.612218.3.579.2. 1245 1981 Unknown [id number] 2.840.1.373274.3.579.2. 1245 1981 Unknown [id number] 2.840.1.837158.3.579.2. 1245 1981 Unknown [id number] 2.16840.1.248436.3.579.2. 1246 1981 Unknown [id number] 2.16840.1.851821.3.579.2. 1246 1981 Unknown [id number] 2.16840.1.225803.3.579.2. 1246 1981 Unknown [id number] 2.0.1.729919.3.579.2. 1246 1981 Unknown [id number] 2.0.1.408308.3.579.2. 1246 1981 Unknown [id number] 2.840.1.643004.3.579.2. 1246 1981 Unknown [id number] 2.0.1.674660.3.579.2. 1246 1981 Unknown [id number] 2.0.1.842772.3.579.2. 1246 1981 Unknown [id number] .1.744002.3.579.2. 1246 1981 Unknown [id number] .1.836395.3.579.2. 1246 1981 Unknown [id number] .1.933604.3.579.2. 1246 1981 Unknown [id number] 04.30.830.1.874062.3.579.2. 1246 1981 Unknown [id number] .1.613914.3.579.2. 1242 1981 Unknown [id number] .1.864300.3.579.2. 1242 1981 Unknown [id number] .1.387022.3.579.2. 1242 1981 Unknown [id number] 04.30.830.1.792387.3.579.2. 124 Unknown [id number] Unknown [id number] Unknown [id number] 20.1.161487.3.579.2. 462 Unknown [id number] .1.842819.3.579.2. 462 Unknown [id number] 2.16.840.1.306064.3.579.2. 462 Unknown [id number] 2.16.840.1.667003.3.579.2. 462 Social History Date Type Detail Facility Start: 06-15-2021 End: 05-18-2023 Tobacco smoking status NHIS Unknown if ever smoked [facility] Start: 01-24-2020 Friends [facility] Start: 08-04-2020 Cigarettes [facility] Start: 1980 Sex Assigned At Male [facility] Start: 05-04-2023 Gender identity Identifies as male gender (finding) [facility] Work Phone: Start: 05-04-2023 Sexual orientation Heterosexual (finding) [facility] Work Phone: Start: 04-24-2023 End: 07-19-2024 Exposure to SARS-CoV-2 (event) Not sure [facility] Start: 02-22-1997 End: 02-23-2024 Tobacco smoking status NHIS Smokes tobacco daily [facility] Start: 02-22-1997 History of tobacco use Cigarette Smoker [facility] Start: 12-22-2016 End: 02-23-2024 Tobacco use and exposure Smokeless tobacco non-user [facility] Start: 12-12-2023 End: 07-13-2024 Alcoholic beverage intake Current drinker of alcohol (finding) [facility] Start: 12-12-2023 End: 02-23-2024 History of Social function [facility] Start: 12-12-2023 End: 02-23-2024 Alcohol Use Disorder Identification Test - Consumption [AUDIT-C] [facility] How often to you hav e a drink containing alcohol? Never [facility] Start: 02-06-2022 How many standard drinks containing alcohol do you have on a typical day? Patient does not drink [facility] Start: 08-12-2016 Alcohol Comment rarely [facility] Start: 1980 Sex assigned at Not on file [facility] [employer] Has the electric, ga s, oil, or water company threatened to shut off services in your home in past 12Mo No [facility] How hard is it for y ou to pay for the very basics like food, housing, medical care, and heating Somewhat hard [facility] How often to you hav e a drink containing alcohol? Monthly or less [facility] How many standard dr inks containing alcohol do you have on a typical day? 1 or 2 [facility] How often do you hav e 6 or more drinks on 1 occasion? Less than monthly [facility] Start: 07-03-2014 End: 02-06-2022 Sex Male (finding) [facility] Start: 07-19-2024 End: 12-26-2024 Alcoholic beverage intake Ex-drinker (finding) [facility] Work Phone: Medical Equipment Procedure Code Equipment Code Equipment Origin al Text Equipment Identifier Dates Acp Plate 40mm 2-Level [id number] Start: 02-24-2024 Viacell [id number] Start: 02-24-2024 Spacer, Hedron C , 14x16, 7mm, 7 Degree - Sna - [id number] Start: 02-24-2024 Spacer, Hedron C , 14x16, 7mm, 7 Degree - Sna - [id number] Start: 02-24-2024 Screw, Acp, Self Drill, 3.5 X 15mm, Variable - Sna - [id number] Start: 02-24-2024 Goals Date Patient Goal Desired Activity /State Personal health goal Personal health goal Functional Status Date Assessment Result Facility 01-09-2025 Functional status 145/80 025 10:40 AM Patty Cook MA 145/80 [facility] 01-09-2025 Vital signs 57 01/09/2025 10 :40 AM Patty Cook MA [facility] Work Phone: 12-08-2024 [facility] Work Phone: 12-08-2024 Functional status [facility] Work Phone: 12-08-2024 [place] - suicide severity rating scale screener - recent [C-SSRS] [facility] Work Phone: 12-08-2024 [facility] 12-08-2024 Functional status [facility] Mental Status Date Assessment Result Facility 10-23-2024 Cognitive function Voice/Name [facility] Work Phone: 06-16-2022 Cognitive function Voice/Name [facility] Work Phone: Clinical Notes 11-09-2022 to 01-09-2025 [...] and L5-S1, with vacuum phenomenon. There is ulla-aq-xnypcalq bilateral neural foraminal stenosis at these levels. [...] Difficult to do ADLs SH: Lives in: [place] Lives with: Mom Occupation: None, applying for [...] 5/5 finger flexors, 5-/5 interossei, and 5/5 sports physiotherapist LE strength - 4/5 on the left [...] grammar and/or spelling documented in this encounter [facility] Work Phone: 01-09-2025 Instructions Apoorva Griffin [...] surgery GOOD LUCK! documented in this encounter [facility] Work Phone: 12-26-2024 History of Present [...] split dictation. -Dev Martel PA-C In a mucu-ku-bcfc encounter, I performed a history and physical [...] MD Orthopedic surgery documented in this encounter [facility] Work Phone: 12-17-2024 Discharge summary [facility] 12-17-2024 Discharge summary Note Date/Time December 17, 2024 11:01pm [facility] Medical Records Department [address] [place] [address] Emergency Department Summary 12/17/24 MR#: [id number] Acct: [id number] Name: HARMAN JAMIL Rep #:[id number] : [...] chronically masturbates approximately 7 times a day. [facility] Medical History ADHD Sciatica Cervical [...] Sl. Cloudy Urine pH 5.0 Ur Specific [place] 1.025 Urine Protein 30 H Urine Glucose [...] Medical] Dhaval Sales MD [Med Staff - Backpackers Manager, Dermatology] Activity Restrictions/Additional Instructions: The spots on your genitalia are most consistent with moles (medical term is nevus). I do recommend follow-up with dermatology of abundance of caution. Will contact you with your gonorrhea and Chlamydia results. Print Language: Citizen [place] Disposition Disposition: Home, Self Care Discharge Date/Time: 12/17/24 23:01 What to do if you have Problems For any increased pain, shortness of breath, bleeding, nausea or vomiting, chestpain, or any unexpected problems, contact your Primary Care Provider. Call [facility] ([phone]) or report to the closest Emergency Room. Call 911 if necessary. 12/18/24 0118 <Electronically signed by Nathalie Manning DO> Cosigner Signature (if applicable): CC: Dr. Josafat Tinoco DO ~ Signed [facility] Work Phone: 1(870) 152-878608-30-2025 Discharge summary [facility] Medical Records Department [address] [place] [address] Emergency Department Summary 11/11/24 MR#: [id number] Acct: [id number] Name: HARMAN JAMIL Rep #:[id number] : [...] DO [Primary Care Provider] - Print Language: [place] What to do if you have Problems For any increased pain, shortness of breath, bleeding, nausea or vomiting, chestpain, or any unexpected problems, contact your Primary Care Provider. Call [facility] ([phone]) or report tothe closest Emergency Room. Call 911 if necessary. 11/11/24 2576 Cosigner Signature (if applicable): CC: Dr. Josafat Tinoco DO ~ Signed [facility]08-19-2025 History of Present illness Narrative* Apoorva Griffin [...] to proceed with the left AFO from [facility], he has been fitted and is [...] and L5-S1, with vacuum phenomenon. There is fexw-rr-svxtiska bilateral neural foraminal stenosis at these levels. [...] Difficult to do ADLs SH: Lives in: [place] Lives with: Mom Occupation: None, applying for [employer] Tobacco: Daily smoker, half pack per day [...] 5/5 finger flexors, 5-/5 interossei, and 5/5 sports physiotherapist LE strength - 4/5 on the left [...] in grammar and/or spelling [facility]: 1(236) 966-709608-19-2025 Instructions* Patient Instructions* Apoorva Griffin MD - [...] cigarettes -Follow-up 2-3 months [facility]: 1(608) 921-485508-11-2025 Discharge summary [facility] Medical Records Department [address] [place] [address] Emergency Department Summary 10/23/24 MR#: [id number] Acct: [id number] Name: HARMAN JAMIL Rep #:[id number] : 1980 44 From: Caleb Smith DO PCP: Dr. Josafat Tinoco DO Status:REG ER Location: ED ADDENDUM by Dr. Caleb Smith DO on 10/23/24 at 1603 Patient's EKG reviewed and showed sinus rhythm with a rate of 70 bpm. QTc was noted to be 437 with a normal SC interval 144. 10/23/24 1603 Cosigner Signature (if [...] they brought him in here loretta evaluated. [facility] Medical History ADHD Sciatica Cervical [...] states that earlier today he went to [place] for a psych eval and he states that this appointment went well. He states that he stopped at a friend's house and then was on his way to see his mother and he notes that he ended up here and is not sure what happened. He denies any history of drug abuse. Patient's kdhwf-ee-txuy glucose was noted to be 105. Patient [...] DO [Primary Care Provider] - Print Language: [place] Disposition Disposition: Against Medical Advice What to do if you have Problems For any increased pain, shortness of breath, bleeding, nausea or vomiting, chestpain, or any unexpected problems, contact your Primary Care Provider. Call [facility] ([phone]) or report tothe closest Emergency Room. Call 911 if necessary. 10/23/24 1602 Cosigner Signature (if applicable): CC: Dr. Josafat Tinoco DO ~ Signed [facility]2025 Discharge summary Author Caleb Smith [facility] Note Date/Time October 23, 2024 4: 03pm [facility] Medical Records Department [address] [place] [address] Emergency Department Summary 10/23/24 MR#: [id number] Acct: [id number] Name: HARMAN JAMIL Rep #:[id number] : 1980 44 From: Caleb Smith DO PCP: Dr. Josafat Tinoco DO Status:REG ER Location: ED ADDENDUM by Dr. Caleb Smith DO on 10/23/24 at 1603 Patient's EKG reviewed and showed sinus rhythm with a rate of 70 bpm. QTc was noted to be 437 with a normal SC interval 144. 10/23/24 1603<Electronically signed by Caleb [...] brought him in here to be evaluated. [facility] Medical History ADHD Sciatica Cervical [...] states that earlier today he went to [place] for a psych eval and he states that this appointment went well. He states that he stopped at a friend's house and then was on his way to see his mother and he notes that he ended up here and is not sure what happened. He denies any history of drug abuse. Patient's uiakx-fh-izqr glucose was noted to be 105. Patient [...] DO [Primary Care Provider] - Print Language: [place] Disposition Disposition: Against Medical Advice What to do if you have Problems For any increased pain, shortness of breath, bleeding, nausea or vomiting, chestpain, or any unexpected problems, contact your Primary Care Provider. Call [facility] ([phone]) or report to the closest Emergency Room. Call 911 if necessary. 10/23/24 1602 <Electronically signed by Caleb Smith DO> Cosigner Signature (if applicable): CC: Dr. Josafat Tinoco DO ~ Signed [facility] Work Phone: 1(787) 317-102107-21-2025 History of Present illness Narrative* Apoorva Griffin [...] and L5-S1, with vacuum phenomenon. There is lpsl-fn-wpmuqlxo bilateral neural foraminal stenosis at these levels. [...] 5/5 finger flexors, 5-/5 interossei, and 5/5 sports physiotherapist LE strength - 4/5 on the left [...] 6. Ergonomics: -Left ankle foot orthotic from [facility] 7. Return to clinic for follow-up with [...] referring provider, Dr. Dixon documented in this [facility] Work Phone: 1(408) 229-562107-21-2025 Instructions* Patient Instructions* Apoorva Griffin MD - [...] provided -Get a left ankle-foot orthotic from [facility] -Lumbar MRI ordered -Do your Best to completely stop smoking cigarettes -Follow-up after MRI documented in this [facility] Work Phone: 1(354) 142-461705-12-2025 History and physical note* Suraj Meyers MD [...] examinationpreserved. NEURO: Alert and oriented X 3 COLLEGE OR UNIVERSITY BUSINESS MANAGER normal as tested without focal neurological deficit [...] 06/06/2024 11:08 am INDICATION: Signs/Symptoms:Pain. ACCESSION NUMBER(S): [id number] ORDERING CLINICIAN: SHA FOSTER FINDINGS: AP lateral [...] Sha Foster 06/06/2024 3:56 PM Dictation workstation: [id number] CT lumbar spine wo IV contrast Result [...] and L5-S1, with vacuum phenomenon. There is qhys-lk-tradbbon bilateral neural foraminal stenosis at these levels. [...] 10:52 am INDICATION: Signs/Symptoms:neck pain. ACCESSION NUMBER(S): [id number] ORDERING CLINICIAN: SHA FOSTERFINDINGS: AP lateral x-rays [...] Sha Foster 03/07/2024 11:17 AM Dictation workstation: [id number] MR cervical spine wo IV contrast Result Date: 02/18/2024 Interpreted By: Luana Lawson and Lawrence Austen STUDY: MR CERVICAL SPINE WO IV CONTRAST; MR LUMBAR SPINE W AND WO IV CONTRAST; MR THORACIC SPINE WO IV CONTRAST; 02/17/2024 7:08 pm; 02/17/2024 7:09 pm INDICATION: Signs/Symptoms:pain. ,M54.10 Radiculopathy, site unspecified COMPARISON: Cilmplilye88/07/2018, MRI 08/17/2016. ACCESSION NUMBER(S): [id number]; [id number]; [id number] ORDERING CLINICIAN: SHA FOSTER TECHNIQUE: Sagittal T1, [...] Luana Lawson 02/18/2024 11:18 AM Dictation workstation: [id number] MR thoracic spine wo IV contrast Result Date: 02/18/2024 Interpreted By: Luana Lawson and Lawrence Austen STUDY: MR CERVICAL SPINE WO IV CONTRAST; MR LUMBAR SPINE W AND WO IV CONTRAST; MR THORACIC SPINE WO IV CONTRAST; 02/17/2024 7:08 pm; 02/17/2024 7:09 pm INDICATION: Signs/Symptoms:pain. ,M54.10 Radiculopathy, site unspecified COMPARISON: Blfkvefduo52/07/2018, MRI 08/17/2016. ACCESSION NUMBER(S): [id number]; [id number]; [id number] ORDERING CLINICIAN: SHA FOSTER TECHNIQUE: Sagittal T1, [...] Luana Lawson 02/18/2024 11:18 AM Dictation workstation: [id number] MR lumbar spine w and wo IV contrast Result Date: 02/18/2024 Interpreted By: Luana Lawson and Antonio Forrester STUDY: MR CERVICAL SPINE WO IV CONTRAST; MR LUMBAR SPINE W AND WO IV CONTRAST; MR THORACIC SPINE WO IV CONTRAST; 02/17/2024 7:08 pm; 02/17/2024 7:09 pm INDICATION: Signs/Symptoms:pain. ,M54.10 Radiculopathy, site unspecified COMPARISON: Ubvfgbmacv98/07/2018, MRI 08/17/2016. ACCESSION NUMBER(S): [id number]; [id number]; [id number] ORDERING CLINICIAN: SHA FOSTER TECHNIQUE: Sagittal T1, [...] Luana Lawson 02/18/2024 11:18 AM Dictation workstation: [id number] XR lumbar spine 2-3 views Result Date: [...] visit with any questions or concerns at [phone] M-F 8-4 pm Suraj Meyers M.D. Potato Peeling Machine Operator , Division of Pain Medicine [facility] Automatic Serging Machine Operator of Anesthesiology and Pain Medicine [facility] [place] [address] Office: [phone] Suraj Meyers MD [1] Past Medical History: Diagnosis Date Contusion of chest wall 06/28/2024 Disease due to severe acute respiratory syndrome coronavirus 2 (SARS-CoV-2) 06/28/2024 Fall 06/28/2024 Fever 06/28/2024 Marijuana use 09/04/2014 Per tox screen 08/2014: Patient informed he will receive no further controlled medication scripts from physicians at [facility]. Also violation of signed controlled substance agreement. [...] on file. [4] No Known Allergies T [facility] Work Phone: 1(386) 957-367505-12-2025 History and physical note* Suraj Meyers MD [...] examinationpreserved. NEURO: Alert and oriented X 3 COLLEGE OR UNIVERSITY BUSINESS MANAGER normal as tested without focal neurological deficit [...] 06/06/2024 11:08 am INDICATION: Signs/Symptoms:Pain. ACCESSION NUMBER(S): [id number] ORDERING CLINICIAN: SHA FOSTER FINDINGS: AP lateral [...] Sha Foster 06/06/2024 3:56 PM Dictation workstation: [id number] CT lumbar spine wo IV contrast Result [...] and L5-S1, with vacuum phenomenon. There is dghh-pm-lsditkyf bilateral neural foraminal stenosis at these levels. [...] 10:52 am INDICATION: Signs/Symptoms:neck pain. ACCESSION NUMBER(S): [id number] ORDERING CLINICIAN: SHA FOSTERFINDINGS: AP lateral x-rays [...] Sha Foster 03/07/2024 11:17 AM Dictation workstation: [id number] MR cervical spine wo IV contrast Result Date: 02/18/2024 Interpreted By: Luana Lawson and Lawrence Austen STUDY: MR CERVICAL SPINE WO IV CONTRAST; MR LUMBAR SPINE W AND WO IV CONTRAST; MR THORACIC SPINE WO IV CONTRAST; 02/17/2024 7:08 pm; 02/17/2024 7:09 pm INDICATION: Signs/Symptoms:pain. ,M54.10 Radiculopathy, site unspecified COMPARISON: Wfmbjsdoqj19/07/2018, MRI 08/17/2016. ACCESSION NUMBER(S): [id number]; [id number]; [id number] ORDERING CLINICIAN: SHA FOSTER TECHNIQUE: Sagittal T1, [...] Luana Lawson 02/18/2024 11:18 AM Dictation workstation: [id number] MR thoracic spine wo IV contrast Result Date: 02/18/2024 Interpreted By: Luana Lawson and Lawrence Austen STUDY: MR CERVICAL SPINE WO IV CONTRAST; MR LUMBAR SPINE W AND WO IV CONTRAST; MR THORACIC SPINE WO IV CONTRAST; 02/17/2024 7:08 pm; 02/17/2024 7:09 pm INDICATION: Signs/Symptoms:pain. ,M54.10 Radiculopathy, site unspecified COMPARISON: Tnovsvfbtq54/07/2018, MRI 08/17/2016. ACCESSION NUMBER(S): [id number]; [id number]; [id number] ORDERING CLINICIAN: SHA FOSTER TECHNIQUE: Sagittal T1, [...] Luana Lawson 02/18/2024 11:18 AM Dictation workstation: [id number] MR lumbar spine w and wo IV contrast Result Date: 02/18/2024 Interpreted By: Luana Lawson, and Antonio Forrester STUDY: MR CERVICAL SPINE WO IV CONTRAST; MR LUMBAR SPINE W AND WO IV CONTRAST; MR THORACIC SPINE WO IV CONTRAST; 02/17/2024 7:08 pm; 02/17/2024 7:09 pm INDICATION: Signs/Symptoms:pain. ,M54.10 Radiculopathy, site unspecified COMPARISON: Ipvhmhvkgv34/07/2018, MRI 08/17/2016. ACCESSION NUMBER(S): [id number]; [id number]; [id number] ORDERING CLINICIAN: SHA FOSTER TECHNIQUE: Sagittal T1, [...] Luana Lawson 02/18/2024 11:18 AM Dictation workstation: [id number] XR lumbar spine 2-3 views Result Date: [...] visit with any questions or concerns at [phone] M-F 8-4 pm Suraj Meyers M.D. Potato Peeling Machine Operator , Division of Pain Medicine [facility] Automatic Serging Machine Operator of Anesthesiology and Pain Medicine [facility] [address] [facility] [address] [place] [address] Office: [phone] Suraj Meyers MD [1] Past Medical History: Diagnosis Date Contusion of chest wall 06/28/2024 Disease due to severe acute respiratory syndrome coronavirus 2 (SARS-CoV-2) 06/28/2024 Fall 06/28/2024 Fever 06/28/2024 Marijuana use 09/04/2014 Per tox screen 08/2014: Patient informed he will receive no further controlled medication scripts from physicians at [facility]. Also violation of signed controlled substance agreement. [...] [4] No Known Allergies documented in this [facility] Work Phone: 1(367) 941-529505-12-2025 History of Present illness Narrative* Deandra May [...] Objective Physical Exam Assessment/Plan documented in this [facility] Work Phone: 1(344) 328-373105-07-2025 History of Present illness Narrative* Radha Sandra [...] There is no tremor. On coordination testing, hyiozf-gztm-hecfgg testing are done well bilaterally. Sensory examination [...] further controlled medication scripts from physicians at [facility]. Also violation of signed controlled substance agreement. [...] Date TONSILLECTOMY 09/06/2015 Tonsillectomy documented in this [facility] Work Phone: 1(113) 481-172405-07-2025 Instructions* Patient Instructions* Radha Dixon DO - [...] while taking this medication. [facility] Work Phone: 1([phone]) 781-584905-02-2025 Hospital Discharge instructions* Discharge Instr - DONNIE* [...] Contact Information Primary Emergency Contact: Sis Delgadillo [facility] Relation: Other Past Surgical History: [...] MENTAL STATUS:} IV Access: { DONNIE IV ACCESS:496199959} Nursing Mobility/ADLs: Walking {CHP DME ADLs:994077168} Transfer {CHP DME ADLs:599850633} Bathing {CHP DME ADLs:319987566} Dressing {CHP DME ADLs:989239817} Toileting {CHP DME ADLs:295731270} Feeding {CHP DME ADLs:039695385} Tennis Centre Manager {CHP DME ADLs:183312917} Med Delivery { DONNIE MED Delivery:098756390} Wound Care Documentation and Therapy: Elimination: Continence: Bowel: {YES / NO:} Bladder: {YES / NO:} Urinary Catheter: {Urinary Catheter:427126104} Colostomy/Ileostomy/Ileal Conduit: {YES / NO:} Date of Last BM: No intake or output data in the 24 hours ending 07/14/24 0020 No intake/output data recorded. Safety Concerns: { DONNIE Safety Concerns:665673060} Impairments/Disabilities: { DONNIE Impairments/Disabilities:034091041} Nutrition Therapy: Current Nutrition Therapy: { DONNIE Diet List:634237741} Routes of Feeding: {[facility] DME Other Feedings:758490349} Liquids: {[facility] liquid thickness:35594} Daily Fluid Restriction: {CHP DME Yes amt example:310450909} Last Modified Barium Swallow with Video (Video Swallowing Test): {Done Not Done Date:} Treatments at the Time of Hospital Discharge: Respiratory Treatments: Oxygen Therapy: {Therapy; copd oxygen:52827} Ventilator: { CC Vent List:289251990} Rehab Therapies: {THERAPEUTIC INTERVENTION:3522144471} Weight Bearing Status/Restrictions: {[facility] Weight Bearin} Other Medical Equipment (for information only, NOT a DME order): {EQUIPMENT:494123366} Other Treatments: Patient's personal belongings (please select all that are sent with patient): {P DME Belongings:410904244} RN SIGNATURE: {Esignature:881338047} CASE MANAGEMENT/SOCIAL WORK SECTION Inpatient Status Date: Readmission Risk Assessment Score: [facility] RISK OF UNPLANNED READMISSION 2.0 0 Total Score Discharging to Facility/ Agency Name: Address: Phone: Fax: Dialysis Facility (if applicable) Name: Address: Dialysis Schedule: Phone: Fax: Guitar Technician/Ship Self Defense System Mk1 Operator signature: {Esignature:704061882} PHYSICIAN SECTION Prognosis: {Prognosis:0746199446} Condition at Discharge: { Patient Condition:253019733} Rehab Potential (if transferring to Rehab): {Prognosis:5896308261} Recommended Labs or Other Treatments After Discharge: Physician Certification: I certify the above information and transfer of Harman Jamil is necessary for the continuing treatment of the diagnosis listed and that he requires {Admit to Appropriate Level of Care:57710} for {GREATER/LESS:854173453} 30 days. Update Admission H&P: {CHP DME Changes in HandP:938858576} PHYSICIAN SIGNATURE: {Esignature:205215083} * Attachments The following attachments cannot be sent through Care Everywhere. * Back: Strain ([place]) [facility] History of Present illness Narrative* Josafat [...] symptoms are better managed. [facility] Work Phone: 1([phone]) 278-246204-03-2025 Hospital Discharge instructions* Discharge Instructions* Lisa Polanco [...] be sent through Care Everywhere. * Sciatica ([place]) * Back Pain ([place]) [facility] in [facility] History of Present illness Narrative* Sha [...] [facility] For complete plan and/or surgical details, please refer to Dr. Foster's portion of this split dictation. -Dev Martel PA-C In a aquk-pg-dbpv encounter, I performed a history and physical [...] Foster MD Orthopedic surgery [facility] Work Phone: 1(563) 921-494703-07-2025 Hospital Discharge instructions* Discharge Instructions* Nayan Hale PA-C - 05/19/2024 3:44 AM EST Follow closely with your primary spinal surgeon for recheck. Return sooner for new or worsening symptoms. You can attempt to picker and packer a walker with the provided prescription at a local DME store * Attachments The following attachments cannot be sent through Care Everywhere. * Back Pain ([place]) * Fall Prevention ([place]) documented in [facility] History of Present illness Narrative* Dev [...] 2+ and symmetric bilaterally. Garner positive bilaterally. Support Associate strength symmetric and strong. Cervical incision is [...] split dictation. -Dev Martel PA-C In a jpoo-md-hbhd encounter, I performed a history and physical [...] Foster MD Orthopedic surgery documented in this [facility] Work Phone: 1(350) 413-598412-14-2024 Plan of care note* Care Plan - [...] goals for the shift include [facility]-14[facility] Miscellaneous Notes* Care Plan - Felipe [...] Foster M.D. Asst.: None Dev LeosThe physician oral surgery assistant was present through the entire case. Given thenature of the disease process and the procedure to be performed a skilled cardiovascular surgical tech was necessary during the case. The oral surgery assistant was necessary in order to hold retractors and directly assistin the operation. A cisco certified internetwork expert was at the back table managing instruments [...] anterior two thirds of the disc. A Woodbridge pinretractor was then placed to provide distraction [...] these barriers include none. [facility] Work Phone: [phone]) 938-796412-14-2024 Plan of care note* Care Plan - [...] goals for the shift include [facility] management [facility] Work Phone: [phone]) 251-340912-14-2024 Hospital course Narrative* FREDO Ling - 02/26/2024 [...] 2024 in wound clinic documented in this [facility] Work Phone: 1(263) 210-394012-14-2024 History of Present illness Narrative* FREDO Ling [...] / Treatment Patient Name: Harman Jamil Department: [facility] Room: [address] [place] [address] Today's Date: 02/25/2024 Time Calculation Start Time: [...] Comments: BUE AROM WFL; strength >3/5; functional sports physiotherapist 4/5. Perception: Inattention/Neglect: Appears intact Coordination: Movements are Fluid and Coordinated: Yes Hand Function: Gross Grasp: Functional Coordination: Functional Outcome Measures:[facility] Daily Activity Putting on and taking off [...] decompression and fusion - direct admission from [facility] - Progressive neurovascular changes [...] note, this documentation is completed using the TRADE TO REBATE Dictation system (voice recognition software). There may [...] LLE : Within Functional Limits Outcome Measures: [facility] Basic Mobility Turning from your back to [...] Foster. Pt has cervical brace on. Per [employer] anticipate Wednesday DC on Oral Bactrim x 10 days, follow up with Dr. Nichols on Wednesday. Pt had bedside I & D for 3 left axillary abscesses which is currently packed, ordereddaily wound dressings. Pt refuses HHC, states can not have HHC at his nieces in [place] home, and plans to go to his moms in [place] for only a couple days and come back to [place]. Pt declines any needs. [employer] notified and will cancel home care orders. [employer] has made pt appt with Dr. Nichols Wednesday morning at 9:30 so pt can call [employer] today to set up transportation for Wednesday [...] required documents and is reaching out to [facility] for transportation. * Sowmya Hernandez PharmD - [...] Ling 02/25/2024 7:41 AM * Lennie Mooney [facility] - 02/25/2024 6:29 AM EST [...] on 02/26/2024 Exposure target: AUC24 (range)400-600 mg/L.hr OYQ34-45: 381 mg/L.hr AUC24,ss: 409 mg/L.hr Probability of [...] palpation Skin: no rashes, no diaphoresis Neuro: COLLEGE OR UNIVERSITY BUSINESS MANAGER intact Affect appropriate and patient is interactive [...] and Zosyn, Cultures pending, anticipating PICC and long wall mining machine helper antibiotics. Pt states currently living in basement of niece's home in [facility] in, has had recent [...] Continue current dressing changes * Jewels Nolan, MANAGER EMERGENCY DEPARTMENT-[employer] - 02/23/2024 2:02 PM EST Harman Jamil [...] major adverse cardiovascular events including cardiac arrest, [place], arrhythmias, and/or even . Patient appears medically [...] to Left armpit. COMPARISON: None. ACCESSION NUMBER(S): [id number] ORDERING CLINICIAN: HALEY YATES TECHNIQUE: Contiguous axial [...] Phillip Mojica 02/22/2024 11:09 PM Dictation workstation: [id number] Physical Exam Constitutional: Well developed, awake/alert/oriented x3, [...] decompression and fusion - direct admission from [facility] in [place] - Progressive neurovascular changes noted per primary [...] note, this documentation is completed using the TRADE TO REBATE Dictation system (voice recognition software). There may be spelling and/or grammatical errors that were not corrected prior to final submission. 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 N Transportation Needs In the [...] Zosyn, Cultures pending, anticipating P ICC and detention antibiotics. Pt states currently living in basement of niece's home in [place], has had recent problems with legs and [...] on 02/23/2024 Exposure target: AUC24 (range)400-600 mg/L.hr TPJ91-64: 448 mg/L.hr AUC24,ss: 487 mg/L.hr Probability of [...] toxicity. Korina Lopez PharmD [facility] Work Phone: 1(416) 496-548212-14-2024 Plan of care note* Care Plan - [...] level of nervousness and agitation this morning. [facility]12-13-[facility] Plan of care note* Care Plan [...] goals for the shift include Pain management [facility] Work Phone: [phone]) 749-887312-12-2024 Plan of care note* Care Plan - Haley Laboy RN - 02/24/2024 11:05 PM EST The patient's goals for the shift include rest and comfort The clinical goals for the shift include pain management Over the shift, the patient did make progress toward the following goals. Barriers to progression include none. Recommendations to address these barriers include none. [facility] Work Phone: [phone]) 644-633212-12-2024 Note* Op Note - Sha Foster MD [...] Foster M.D. Asst.: None Dev LeosThe physician oral surgery assistant was present through the entire case. Given thenature of the disease process and the procedure to be performed a skilled cardiovascular surgical tech was necessary during the case. The oral surgery assistant was necessary in order to hold retractors and directly assistin the operation. A cisco certified internetwork expert was at the back table managing instruments [...] anterior two thirds of the disc. A Woodbridge pinretractor was then placed to provide distraction [...] please do not hesitate to contact me. [facility] Work Phone: [phone]) 739-454612-12-2024 Plan of care note* Care Plan - Haley Laboy RN - 02/24/2024 1:52 AM EST The patient's goals for the shift include rest and comfort The clinical goals for the shift include pain management Over the shift, the patient did make progress toward the following goals. Barriers to progression include none. Recommendations to address these barriers include none. [facility] Work Phone: [phone]) 609-910312-11-2024 History and physical note* Sha Foster MD [...] this with one of my colleagues in [place] and we both agree that the neurologic [...] please do not hesitate to contact me. [facility] Work Phone: [phone]) 518-633612-11-2024 History and physical note* Sha Foster MD [...] this with one of my colleagues in [place] and we both agree that the neurologic [...] hesitate to contact me. documented in this [facility] Work Phone: [phone]) 199-543512-11-2024 Plan of care note* Care Plan - [...] goals for the shift include Pain management [facility] Work Phone: [phone]) 360-516812-11-2024 Hospital Discharge instructions* Discharge Instructions* Jewels Nolan APRN-MINA - 02/23/2024 8:41 AM EST ##### Please follow up with your PCP regarding these nodules############ Follow up in 1 week. May need to follow up with magnaflux operator as well. Will send you information [...] sent through Care Everywhere. * Hidradenitis suppurativa ([place]) documented in this [facility] Work Phone: [phone]) [phone] Consult note* Jeff Nichols MD - 02/23/2024 [...] MD *These notes are being done using TRADE TO REBATE voice recognition technology and may include unintended errors with respect to translation of words, typographical errors or grammar errors which may not havebeen identified prior to finalization of the chart note. [facility] Work Phone: [phone]) 715-262512-11-2024 Consult note* Jeff Nichols MD - 02/23/2024 [...] MD *These notes are being done using TRADE TO REBATE voice recognition technology and may include unintended [...] hours. This dosing regimen is predicted by [employer] to result in the following pharmacokinetic parameters: Regimen: 1250 mg IV every 12 hours. Start time: 00:29 on 02/23/2024 Exposure target: AUC24 (range)400-600 mg/L.hr MSL85-14: 471 mg/L.hr AUC24,ss: 581 mg/L.hr Probability of [...] palpation Skin: no rashes, no diaphoresis Neuro: COLLEGE OR UNIVERSITY BUSINESS MANAGER intact Affect appropriate and patient is interactive [...] therace variable for the IDMS-Traceable creatinine methods. https://jasn.asnjournals.org/content/early//ASN.8390757958 Calcium 02/22/2024 9.2 8.6 - 10.3 mg/dL [...] and tingling to BLE, palpable pulses, equal sports physiotherapist strengths of upper extremities. Last Recorded Vitals BP 147/89 (Patient Position: Sitting) Pulse 98 Temp 35.6 C (96.1 F) Resp 18 SpO2 93% Relevant Results CT w contrast ordered - results pending BC x2 Wound/tissue culture ordered ID consulted Plastic Surgery consulted Remaining lab work is unremarkable Assessment/Plan C5-6 and C6-7 anterior cervical decompression and fusion - direct admission from [facility] in [place] - Progressive neurovascular changes noted per primary [...] declined Haley Yates APRN-MINA documented [facility] Work Phone: [phone]) [phone] Plan of care note* Care Plan - Haley Laboy RN - 02/23/2024 2:39 AM EST The patient's goals for the shift include rest and comfort The clinical goals for the shift include pain management Over the shift, the patient did make progress toward the following goals. Barriers to progression include none. Recommendations to address these barriers include none. [facility] Work Phone: [phone]) 591-722612-11-2024 Plan of care note* Care Plan - Haley Laboy RN - 02/23/2024 1:58 AM EST The patient's goals for the shift include rest and comfort The clinical goals for the shift include pain management Over the shift, the patient did make progress toward the following goals. Barriers to progression include none. Recommendations to address these barriers include none. [facility] Work Phone: [phone]) 333-546812-11-2024 Consult note* Param Cifuentes PharmD - 02/23/2024 [...] on 02/23/2024 Exposure target: AUC24 (range)400-600 mg/L.hr JPA33-12: 471 mg/L.hr AUC24,ss: 581 mg/L.hr Probability of [...] and signs/symptoms of toxicity. 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 https://jasn.asnjournals.org/content//ASN.5036095424 Calcium 02/22/2024 9.2 8.6 - 10.3 mg/dL [...] visit with the patient > 60 min [facility] Work Phone: 1([phone]) 614-184112-10-2024 Consult note* Haley Yates APRN-MINA - 02/22/2024 [...] and tingling to BLE, palpable pulses, equal sports physiotherapist strengths of upper extremities. Last Recorded Vitals BP 147/89 (Patient Position: Sitting) Pulse 98 Temp 35.6 C (96.1 F) Resp 18 SpO2 93% Relevant Results CT w contrast ordered - results pending BC x2 Wound/tissue culture ordered ID consulted Plastic Surgery consulted Remaining lab work is unremarkable Assessment/Plan C5-6 and C6-7 anterior cervical decompression and fusion - direct admission from [facility] in [place] - Progressive neurovascular changes noted per primary [...] offered replacement - declined Haley Yates APRN-MINA [facility] Work Phone: 1(258) 995-414012-10-2024 History of Present illness Narrative* Sha Foster [...] cervical decompression and fusion. documented in this [facility] Work Phone: 1(369) 273-710912-01-2024 History of Present illness Narrative* Sha Foster [...] try to assess that. [facility] Work Phone: [phone]) 581-338711-26-2024 Hospital Discharge instructions* Discharge Instructions* Nayan Hale PA-C - 02/08/2024 11:23 PM EST Please follow closely with your primary team. Return immediately for new or worsening symptoms. * Attachments The following attachments cannot be sent through Care Everywhere. * Back Pain ([place]) [facility] History of Present illness Narrative* Sha [...] as if he does. documented in this [facility] Work Phone: [phone]) 356-375411-16-2024 Hospital Discharge instructions* Discharge Instructions* Zuleyka Bryant, [...] sent through Care Everywhere. * Fecal Incontinence (Citizen [place]) * Low Back Pain: Exercises ([place]) documented in this [facility]Bon [facility] History of Present illness Narrative* Sha Foster MD - 12/14/2023 11:00 AM EDT Harman Jamil is a 43 y.o. male who presents for follow-up for low back pain. HPI: 43-year-old gentleman here for follow-up low back pain. [facility]. He did not get into any physical [...] the lumbar spine from August 27 at [facility] was reviewed today. Assessment: 43-year-old gentleman here for [facility] follow-up low back pain and leg pain. [...] did have a CT at [facility] of his lumbar spine that showed that [...] split dictation. -Dev Martel PA-C In a ipuf-fy-tknr encounter, I performed a history and physical [...] Foster MD Orthopedic surgery [facility] Work Phone: 1([phone]) 143-855209-29-2024 Hospital Discharge instructions* Discharge Instructions* Aarti Stokes APRN - CNP - 12/12/2023 7:08 PM EDT Continue follow with your orthopedic doctor on December Referral for pain management recommended for chronic back pain. * Attachments The following attachments cannot be sent through Care Everywhere. * Back Pain ([place]) [facility] History of Present illness Narrative* Sha [...] anything for this recently. He is taking vsqx-lip-zcmaemq anti-inflammatories which are not helping. Plan: For complete plan and/or surgical details, please refer to Dr. Foster's portion of this split dictation. In a rkxo-oy-mkra encounter, I performed a history and physical [...] back after the MRI. documented in this [facility] Work Phone: [phone]) 221-103808-28-2023 Discharge summary Author Gerson Perez [facility] November 09, 2022 3:03pm Note Date/Time November 09, 2022 2: 54pm [facility] Medical Records Department [address] [place] [address] Emergency Department Summary 11/09/22 MR#: [id number] Acct: [id number] Name: HARMAN JAMIL Rep #:[id number] : [...] that those symptoms are not there now. [facility] Medical History ADHD Cervical radiculopathy Sciatica [...] your Primary Care Provider. Call [facility] ([phone]) or report to the closest Emergency Room. Call 911 if necessary. 11/09/22 1503 <Electronically signed by Gerson Perez MD> Cosigner Signature (if applicable): CC: Dr. Josafat Tinoco DO ~ Signed [facility] Work Phone: Discharge summary Author Eduardo Peguero-[facility] Note Date/Time November 11, 2024 1: 58am [facility] Medical Records Department [address] [place] [address] Emergency Department Summary 11/11/24 MR#: [id number] Acct: [id number] Name: VENTURAHARMAN DALTON Rep #:[id number] : [...] intact Psych: Cooperative, appropriate mood and affect [facility] Medical History ADHD Sciatica Cervical [...] DO [Primary Care Provider] - Print Language: Citizen Of [place] What to do if you have Problems For any increased pain, shortness of breath, bleeding, nausea or vomiting, chestpain, or any unexpected problems, contact your Primary Care Provider. Call [facility] ([phone]) or report to the closest Emergency Room. Call 911 if necessary. 11/11/24 0158 <Electronically signed by Eduardo Mcdonald DO> Cosigner Signature (if applicable): CC: Dr. Josafat Tinoco DO ~ Signed [facility] Work Phone: Evaluation noteNo assessment information available [facility] Work Phone: Evaluation note* Diagnosis Lumbar pain- Primary Lumbago Lumbar radiculopathy Thoracic or lumbosacral neuritis or radiculitis, unspecified Lumbar pain Lumbago documented in this encounter [facility] Work Phone: Evaluation note* Diagnosis Lumbar pain Lumbago documented in this encounter [facility] Work Phone: Evaluation note* Diagnosis Lumbar pain- Primary Lumbago Lumbar radiculopathy Thoracic or lumbosacral neuritis or radiculitis, unspecified documented in this encounter [facility] Work Phone: Evaluation note* Diagnosis Chronic bilateral low back pain with bilateral sciatica- Primary Incontinence of feces with fecal urgency [facility]* Diagnosis Back pain with radiculopathy- Primary documented in this encounter [facility] Work Phone: [phone] note* Diagnosis Lumbosacral radiculitis- Primary Thoracic or lumbosacral neuritis or radiculitis, unspecified [facility] [employer] note* Diagnosis Back pain with radiculopathy documented in this encounter [facility] Work Phone: [phone] note* Diagnosis Cervical radiculopathy Brachial neuritis or radiculitis nos documented in this encounter [facility] Work Phone: [phone] note* Diagnosis Spinal stenosis, cervical region- Primary Spinal stenosis Spinal stenosis, unspecified region other than cervical Spinal stenosis, cervical region Abscess of axilla, left Spinal stenosis Spinal stenosis, unspecified region other than cervical Spinal stenosis, cervical region documented in this encounter [facility] Work Phone: [phone] note* Diagnosis Cervical radiculopathy- Primary Brachial neuritis or radiculitis nos Cervical radiculopathy Brachial neuritis or radiculitis nos documented in this encounter [facility] Work Phone: [phone] note* Diagnosis Cervical radiculopathy Brachial neuritis or radiculitis nos documented in this encounter [facility] Work Phone: [phone] note* Diagnosis Acute exacerbation of chronic low back pain- Primary [facility]* Diagnosis Accidental fall, initial encounter- Primary Neck sprain, initial encounter Lumbar radiculopathy, acute Thoracic or lumbosacral neuritis or radiculitis, unspecified Leg weakness, bilateral Other musculoskeletal symptoms referable to limbs [facility]* Diagnosis Cervical radiculopathy- Primary Brachial neuritis or radiculitis nos documented in this encounter [facility] Work Phone: [phone] note* Diagnosis Cervical radiculopathy Brachial neuritis or radiculitis nos documented in this encounter [facility] Work Phone: [phone] note* Diagnosis Sciatica of left side- Primary Sciatica documented in [facility] encounter [facility]* Diagnosis Preventative health care- Primary Routine general medical examination at a health care facility Other chronic pain Vitamin D deficiency Attention deficit hyperactivity disorder (ADHD), unspecified ADHD type Hyperlipidemia, unspecified hyperlipidemia type Bipolar affective disorder, remission status unspecified (Multi) Hyperverbal speech documented in this encounter [facility] Work Phone: [phone] note* Diagnosis Acute exacerbation of chronic low back pain- Primary documented in this encounter [facility] note* Diagnosis Cervical myelopathy- Primary Cervical spondylosis with myelopathy Back pain with radiculopathy documented in this encounter [facility] Work Phone: [phone] note* Diagnosis Back pain with radiculopathy documented in this encounter [facility] Work Phone: [phone] note* Diagnosis Herniated nucleus pulposus, L4-5- Primary [...] ankle and foot documented in this encounter [facility] Work Phone: [phone] note* Diagnosis Herniated nucleus pulposus, L4-5 Displacement of lumbar intervertebral disc without myelopathy Pain of left lower extremity Weakness of left foot Neurogenic bowel Left foot drop Other acquired deformity of ankle and foot documented in this encounter [facility] Work Phone: [phone] note* Diagnosis Herniated nucleus pulposus, L4-5- Primary [...] spondylosis with myelopathy documented in this encounter [facility] Work Phone: Evaluation note* Diagnosis Myelopathy (Multi) Unspecified disease of spinal cord documented in this encounter [facility] Work Phone: Evaluation note* Diagnosis Low back pain with left-sided sciatica, unspecified back pain laterality, unspecified chronicity- Primary documented in this encounter [facility] Work Phone: Evaluation note* Diagnosis Myelopathy (Multi) Unspecified disease of spinal cord documented in this encounter [facility] Work Phone: Evaluation note* Diagnosis Lumbar radiculopathy- Primary Thoracic or lumbosacral neuritis or radiculitis, unspecified documented in this encounter [facility] Work Phone: Evaluation note* Diagnosis Spinal [...] stenosis, lumbosacral region documented in this encounter [facility] Work Phone: [facility] Work Phone: [facility] Work Phone: Hospital Discharge instructions Additional Instructions Follow-up with your primary care provider. Return if feeling worse.[facility] Work Phone: Hospital Discharge instructions Additional Instructions Please be sure to keep your follow-up appointment with your surgeon on 21 May 2023.[facility] Work Phone: Hospital Discharge instructionsAdditional Instructions Follow-up with your primary care physician as well as your orthopedic physician. Continue your home medications. You received Toradol here in the emergency department, no ibuprofen for 8 hours. Return back to the ED if symptoms change or worsen.[facility] Work Phone: Hospital Discharge instructions* Attachments The following attachments cannot be sent through Care Everywhere. * Low back pain ED discharge instructions (Citizen [place]) [facility]: Hospital Discharge instructionsAdditional Instructions The spots on your genitalia are most consistent with moles (medical term is nevus). I do recommend follow-up with dermatology of abundance of caution. Will contact you with your gonorrhea and Chlamydia results.[facility] Work Phone: Reason for referral (narrative)No reason for referral information availableWooOhioHealth [facility] Work Phone: Reason for visit Narrative* Imaging (Emergency) - Authorized Specialty Diagnoses / Procedures Referred By Contac t Referred To Contact Radiology Diagnoses Back pain with radiculopathy Procedures MR thoracic spine wo IV contrast Sha Foster MD [address] [facility], [address] [place] [address] Phone: tel: fax: Referral ID Status Reason Start Date Expiration Date Visits Requested Visits Authorized [id number] Authorized Perform Procedure 4 02/07/2025 1 1 [facility] Work Phone: Reason for visit Narrative* Imaging (Emergency) - Authorized Specialty Diagnoses / Procedures Referred By Contac t Referred To Contact Radiology Diagnoses Back pain with radiculopathy Procedures MR lumbar spine w and wo IV contrast MR lumbar spine w IV contrast Sha Foster MD [address] [facility], [address] [place] [address] Phone: tel: fax: Referral ID Status Reason Start Date Expiration Date Visits Requested Visits Authorized [id number] Authorized Perform Procedure 4 02/07/2025 1 1 [facility] Work Phone: reason for visit Narrative* Imaging (Emergency) - Authorized Specialty Diagnoses / Procedures Referred By Contac t Referred To Contact Radiology Diagnoses Back pain with radiculopathy Procedures MR cervical spine wo IV contrast Sha Foster MD [address] [facility], [address] [place] [address] Phone: tel: fax: Referral ID Status Reason Start Date Expiration Date Visits Requested Visits Authorized [id number] Authorized Perform Procedure 4 02/07/2025 1 1 [facility] Work Phone: reason for visit Narrative* Auth/Cert Specialty Diagnoses / Procedures Referred By Julio Cesar t Referred To Contact Diagnoses SPINAL STENOSIS Procedures N/A Sha Foster MD [address] [facility], [address] [place] [address] Phone: tel: fax: [facility] [address] [place] [address] Referral ID Status Reason Start Date Expiration Date Visits Re quested Visits Authorized [id number] 1 1 [facility] Work Phone: reason for visit Narrative* Imaging (Routine) - Authorized Specialty Diagnoses / Procedures Referred By Contac t Referred To Contact Radiology Diagnoses Cervical radiculopathy Procedures XR cervical spine 2-3 views Sha Foster MD [address] [facility], [address] [place] [address] Phone: tel: fax: Referral ID Status Reason Start Date Expiration Date Visits Requested Visits Authorized [id number] Authorized Perform Procedure 4 03/07/2025 1 1 [facility] Work Phone: reason for visit Narrative* Imaging (Routine) - Authorized Specialty Diagnoses / Procedures Referred By Contac t Referred To Contact Radiology Diagnoses Cervical radiculopathy Procedures XR cervical spine 2-3 views Sha Foster MD [address] [facility], [address] [place] [address] Phone: tel: fax: Referral ID Status Reason Start Date Expiration Date Visits Requested Visits Authorized [id number] Authorized Perform Procedure 06/06/2024 06/06/2025 1 1 [facility] Work Phone: Reason for visit Narrative* Imaging (Routine) - Authorized Specialty Diagnoses / Procedures Referred By Contac t Referred To Contact Radiology Diagnoses Herniated nucleus pulposus, L4-5 Pain of left lower extremity Weakness of left foot Neurogenic bowel Left foot drop Procedures MR lumbar spine wo IV contrast MR lumbar spine wo IV contrast Apoorva Griffin MD [address] [place] [address] [address] [place] [address] Phone: tel: fax: Referral ID Status Reason Start Date Expiration Date Visits Requested Visits Authorized [id number] Authorized Perform Procedure 10/02/2024 10/02/2025 1 1 [facility] Work Phone: Reason for visit Narrative* Imaging (Routine) - Authorized Specialty Diagnoses / Procedures Referred By Contac t Referred To Contact Radiology Diagnoses Myelopathy (Multi) Procedures MR cervical spine wo IV contrast Sha Foster MD [address] [facility], [address] [place] [address] Phone: tel: fax: Referral ID Status Reason Start Date Expiration Date Visits Requested Visits Authorized [id number] Authorized Perform Procedure 11/10/2024 12/11/2025 1 1 [facility] Work Phone: reason for visit Narrative* Imaging (Routine) - Authorized Specialty Diagnoses / Procedures Referred By Contac t Referred To Contact Radiology Diagnoses Myelopathy (Multi) Procedures MR thoracic spine wo IV contrast Sha Foster MD [address] [facility], [address] [place] [address] Phone: tel: fax: Referral ID Status Reason Start Date Expiration Date Visits Requested Visits Authorized [id number] Authorized Perform Procedure 11/10/2024 12/11/2025 1 1 [facility] Work Phone: Summary Purpose Family History [...] No June 15, 2021 8:39pm Power of Transportation Officer No June 15 8:39pm Advance Directive Response Recorded Date/ Time Living Will No August 19, 2021 1 :08pm Power of Transportation Officer No August 19, 2021 1:08pm Advance Directive Response Recorded Date/ Time Living Will No August 20, 2021 4 :43pm Power of Transportation Officer No August 20, 2021 4:43pm Advance Directive Response Recorded Date/ Time Living Will No June 16, 2022 10:19pm Power of Transportation Officer No June 16 10:19pm Advance Directive Response Recorded Date/ Time Living Will No November 09 3:32pm Power of Transportation Officer No November 09, 023 3:32pm Advance Directive Response Recorded Date/ Time Living Will No March 09 023 12:29pm Power of Transportation Officer No March 09, 2023 12:29pm Advance Directive Response Recorded Date/ Time Living Will No April 10 4:40pm Power of Transportation Officer No April 10, 2023 4:40pm Advance Directive Response Recorded Date/ Time Living Will No May 18, 2023 3:41pm Power of Transportation Officer No May 17 3:41pm Date Activated Date [...] Do you have a Healthcare Power of Transportation Officer? No October 23, 2024 3:38pm Healthcare Agents on File Name Relationship Healthcare Agent Relationshi p Communication Sis Rhodes Health Care Agent [id number] (Home) Healthcare Agents on File Name Relationship Healthcare Agent Relationshi p Communication Sis Rhodes Health Care Agent [id number] (Home) Advance Directive Response Recorded Date/ Time Do you have a Healthcare Power of Transportation Officer? No October 23, 2024 3:38pm Do you have a Healthcare Power of Transportation Officer? No November 10, 2024 11:56pm Healthcare Agents on File Name Relationship Healthcare Agent Relationshi p Communication Sis Rhodes Health Care Agent [id number] (Home) Healthcare Agents on File Name Relationship Healthcare Agent Relationshi p Communication Sis Rhodes Health Care Agent [id number] (Home) Advance Directive Response Recorded Date/ Time Do you have a Healthcare Power of Transportation Officer? No October 23, 2024 3:38pm Do you have a Healthcare Power of Transportation Officer? No December 17, 2024 10:05pm Do you have a Healthcare Power of Transportation Officer? No November 10, 2024 11:56pm Healthcare Agents [...] IV contrast Sha Foster MD [address] [facility], [address] [place] [address] Referral ID Status Reason Start Date Expiration Date Visits Requested Visits Authorized [id number] Pending Review Perform Procedure 05/04/2023 05/03/2024 1 1 Specialty Diagnoses / Procedures Referred By Contac t Referred To Contact Physical Therapy Diagnoses Lumbar pain Lumbar radiculopathy Sha Foster MD [address] [facility], [address] [place] [address] Referral ID Status Reason Start Date Expiration Date Visits Requested Visits Authorized [id number] Pending Review Specialty Services Required 05/04/2023 05/03/2024 1 1 Specialty Diagnoses / Procedures Referred By Contac t Referred To Contact Radiology Diagnoses Lumbar pain Procedures XR lumbar spine complete 4+ views Sha Foster MD [address] [facility], [address] [place] [address] Referral ID Status Reason Start Date Expiration Date Visits Requested Visits Authorized [id number] Authorized Perform Procedure 05/04/2023 05/03/2024 1 1 Referral ID Status Reason Start Date Expiration Date Visits Requested Visits Authorized [id number] Pending Review Perform Procedure 12/14/2023 12/13/2024 1 1 Referral ID Status Reason Start Date Expiration Date Visits Requested Visits Authorized [id number] Pending Review Specialty Services Required 12/14/2023 12/13/2024 1 1 Specialty Diagnoses / Procedures Referred By Contac t Referred To Contact Anesthesiology Diagnoses Lumbar pain Lumbar radiculopathy Sha Foster MD [address] [facility], [address] [place] [address] Arielle Reeves MD [address] [address] Referral ID Status Reason Start Date Expiration Date Visits Requested Visits Authorized [id number] Authorized Specialty Services Required 12/14/2023 12/13/2024 1 [...] DATE CREATED AUTHOR AUTHOR'S ORGANIZ ATION 03/02/2018 [facility] DATE CREATED AUTHOR AUTHOR'S ORGANIZ ATION 12/06/2022 [facility] DATE CREATED AUTHOR AUTHOR'S ORGANIZ ATION 07/19/2024 [facility] DATE CREATED AUTHOR AUTHOR'S ORGANIZ ATION 10/16/2024 [facility] DATE CREATED AUTHOR AUTHOR'S ORGANIZ ATION 11/04/2024 [facility] DATE CREATED AUTHOR AUTHOR'S ORGANIZ ATION 01/10/2025 [facility] DATE CREATED AUTHOR AUTHOR'S ORGANIZ ATION 01/11/2025 [facility] DATE CREATED AUTHOR AUTHOR'S ORGANIZ ATION 01/15/2025 [facility] DATE CREATED AUTHOR AUTHOR'S ORGANIZ ATION 01/24/2025 [facility] DATE CREATED AUTHOR AUTHOR'S ORGANIZ ATION 01/25/2025 [facility] DATE CREATED AUTHOR AUTHOR'S ORGANIZ ATION 01/26/2025 [facility] Hospital Goals (unrecognized section and [...] Dr. Raghu Sadler DO Emergency Provider Active Historical Guide Relationship Specialty Start Date End Date Josafat Tinoco DO [address] [facility], [address] [address] PCP - [employer] PCP 08/13/21 Josafat Tinoco DO [address] [facility], [address] [address] PCP - [facility] Medicaid PCP 06/13/22 Josafat Tinoco DO [address] [facility], [address] [address] PCP - General Family Medicine 12/27/22 Historical Guide Relationship Specialty Start Date End Date Josafat Tinoco DO [address] [facility], [address] [address] PCP - [employer] PCP 08/13/21 Josafat Tinoco DO [address] [facility], [address] [address] PCP - [facility] Medicaid PCP 06/13/22 Josafat Tinoco DO [address] [facility], [address] [address] PCP - General Family Medicine 12/27/22 Team Status: Inactive Member Role Status Dates Dr. Josafat Tinoco DO Primary Care Provider Active Dr. Raghu Sadelr , DO Attending Provider, Emergency Katia reilly Active Team Status: Inactive Member Role Status Dates Dr. Josafat Tinoco DO Primary Care Provider Active Dr. Mynor Colon , DO Emergency Provider Active Historical Guide Relationship Specialty Start Date End Date Josafat Tinoco DO [address] [facility], [address] [address] PCP - [employer] Medicaid PCP 06/13/22 Josafat Tinoco DO [address] [facility], [address] [address] PCP - General Family Medicine 12/27/22 Dev Martel PA-C [address] [place] [address] PCP - [employer] [facility] PCP 06/14/23 Historical Guide Relationship Specialty Start Date End Date Josafat Tinoco DO [facility] [place] [address] PCP - General 09/18/15 Historical Guide Relationship Specialty Start Date End Date Josafat Tinoco DO [address] [facility], [address] [address] PCP - General Family Medicine 12/27/22 Dev Martel PA-C [address] [place] [address] PCP - [employer] [facility] PCP 06/14/23 Dev Martel PA-C [address] [place] [address] PCP - [facility] Medicaid PCP 12/14/23 Historical Guide Relationship Specialty Start Date End Date Josafat Tinoco DO [address] [place] [address] PCP - General 09/18/15 Historical Guide Relationship Specialty Start Date End Date Josafat Tinoco DO [address] [facility], [address] [address] PCP - General Family Medicine 12/27/22 Dev Martel PA-C [address] [place] [address] PCP - [employer] [facility] PCP 06/14/23 Dev Martel PA-C [address] [place] [address] PCP - [employer] UND[employer] Medicaid PCP 12/14/23 Historical Guide Relationship Specialty Start Date End Date Degidio Josafat R, DO [address] [facility], [address] [place] [address] PCP - General Family Medicine 12/27/22 Dev Martel PA-C [address] [place] [address] PCP - [employer] [facility] PCP 06/14/23 Dev Martel PA-C [address] [place] [address] PCP - [employer]ORTG[employer] LO[employer] UNDER[employer] Medicaid PCP 12/14/23 Historical Guide Relationship Specialty Start Date End Date MattidiJosafat hernandez DO [address] [facility], [facility] [address] [place] [address] PCP - General Family Medicine 12/27/22 Dev Martel PA-C [address] [place] [address] PCP - [employer] [facility] PCP 06/14/23 Dev Martel PA-C [address] [place] [address] PCP - [employer]ORTG[employer] LO[employer] UNDERWR[employer] Medicaid PCP 12/14/23 Historical Guide Relationship Specialty Start Date End Date Josafat Tinoco DO [address] [facility], [facility] [address] [place] [address] PCP - General Family Medicine 12/27/22 Dev Martel PA-C [address] [place] [address] PCP - [employer] [facility] PCP 06/14/23 Dev Martel PA-C [address] [place] [address] PCP - [employer] LO[employer] UND[employer] Medicaid PCP 12/14/23 Historical Guide Relationship Specialty Start Date End Date Josafat Tinoco DO [address] [facility], [address] [address] PCP - General Family Medicine 12/27/22 Dev Martel PA-C [address] [place] [address] PCP - [employer] [facility] PCP 06/14/23 Dev Martel PA-C [address] [place] [address] PCP - [employer] LO[employer] UNDER[employer] Medicaid PCP 12/14/23 Historical Guide Relationship Specialty Start Date End Date MattidiJosafat hernandez DO [address] [facility], [address] [address] PCP - General Family Medicine 12/27/22 Dev Martel PA-C [address] [place] [address] PCP - [employer] [facility] PCP 06/14/23 Dev Martel PA-C [address] [place] [address] PCP - [employer] LO[employer] UNDERWRITER Medicaid PCP 12/14/23 Historical Guide Relationship Specialty Start Date End Date MattidiJosafat hernandez DO [address] [facility], [address] [place] [address] PCP - General Family Medicine 12/27/22 Dev Martel PA-C [address] [place] [address] PCP - [employer] [facility] PCP 06/14/23 Dev Martel PA-C [address] [place] [address] PCP - [facility] Medicaid PCP 12/14/23 Historical Guide Relationship Specialty Start Date End Date Josafat Tinoco DO [address] [place] [address] PCP - General 09/18/15 Historical Guide Relationship Specialty Start Date End Date Josafat Tinoco DO PCP - General 09/18/15 Historical Guide Relationship Specialty Start Date End Date Josafat Tinoco DO PCP - General 09/18/15 Historical Guide Relationship Specialty Start Date End Date Josafat Tinoco DO [address] [facility], [facility] [address] [place] [address] PCP - General Family Medicine 12/27/22 Dev Martel PA-C [address] [place] [address] PCP - [employer] PCP 06/14/23 Dev Martel PA-C [address] [place] [address] PCP - MORTGAGE LOAN UNDERWRITER Medicaid PCP 12/14/23 Historical Guide Relationship Specialty Start Date End Date Josafat Tinoco DO PCP - General 09/18/15 Historical Guide Relationship Specialty Start Date End Date Josafat Tinoco DO [address] [facility], [address] [address] PCP - General Family Medicine 12/27/22 Dev Martel PA-C [address] [place] [address] PCP - [employer] PCP 06/14/23 Dev Martel PA-C [address] [place] [address] PCP - [employer] Medicaid PCP 12/14/23 Historical Guide Relationship Specialty Start Date End Date MattidiJosafat hernandez DO [address] [facility], [address] [address] PCP - General Family Medicine 12/27/22 Dev Martel PA-C [address] [place] [address] PCP - [employer] PCP 06/14/23 Dev Martel PA-C [address] [place] [address] PCP - [employer] Medicaid PCP 12/14/23 Historical Guide Relationship Specialty Start Date End Date Josafat Tinoco DO [address] [facility], [address] [address] PCP - General Family Medicine 12/27/22 Dev Martel PA-C [address] [place] [address] PCP - [employer] PCP 06/14/23 Dev Martel PA-C [address] [place] [address] PCP - [employer] Medicaid PCP 12/14/23 Team Status: Active Member Role/Relationship Status Dates Dr. Josafat Tinoco DO Primary Care Provider Active Team Status: Inactive Member Role/Relationship Status Dates Dr. Josafat Tinoco DO Primary Care Provider Active Start: October 23, 2024 End: October 23, 2024 Dr. Caleb Smith DO Emergency Provider Active Start: October 23, 2024 End: October 23, 2024 Historical Guide Relationship Specialty Start Date End Date Josafat Tinoco DO [address] [facility], [address] [place] [address] PCP - General Family Medicine 12/27/22 Dev Martel PA-C [address] [place] [address] PCP - [employer] PCP 06/14/23 eDv Martel PA-C [address] [place] [address] PCP - [employer] UND[employer] Medicaid PCP 12/14/23 Historical Guide Relationship Specialty Start Date End Date Josafat Tinoco DO [address] [facility], [address] [place] [address] PCP - General Family Medicine 12/27/22 Dev Martel PA-C [address] [place] [address] PCP - [employer] PCP 06/14/23 Dev Martel PA-C [address] [place] [address] PCP - [facility] Medicaid PCP 12/14/23 Team Status: Inactive Member [...] November 10, 2024 End: November 11, 2024 Historical Guide Relationship Specialty Start Date End Date Josafat Tinoco DO [address] [facility], [facility] [address] [place] [address] PCP - General Family Medicine 12/27/22 Dev Martel PA-C [address] [place] [address] PCP - [employer] PCP 06/14/23 Dev Martel PA-C [address] [place] [address] PCP - [employer] Medicaid PCP 12/14/23 Historical Guide Relationship Specialty Start Date End Date Josafat Tinoco DO [address] [facility], [address] [place] [address] PCP - General Family Medicine 12/27/22 Dev Martel PA-C [address], [place] [id number] PCP - [employer] PCP 06/14/23 Dev Martel PA-C [address], [place] [id number] PCP - [facility] Medicaid PCP 12/14/23 Team Status: Active [...] December 17, 2024 End: December 17, 2024 Historical Guide Relationship Specialty Start Date End Date Josafat Tinoco DO [address] [facility], [facility] [address] [place] [address] PCP - General Family Medicine 12/27/22 Dev Martel PA-C [address] [place] [address] PCP - [employer] PCP 06/14/23 Dev Martel PA-C [address] [place] [address] PCP - [facility] Medicaid PCP 12/14/23 Historical Guide Relationship Specialty Start Date End Date Josafat Tinoco DO [address] [facility], [address] [address] PCP - General Family Medicine 12/27/22 Dev Martel PA-C [address] [place] [address] PCP - [employer] PCP 06/14/23 Dev Martel PA-C [address] [place] [address] PCP - [facility] Medicaid PCP 12/14/23 Reason for Visit (unrecogniz ed section and content) Reason Comments Pain xrays Specialty Diagnoses / Procedures Referred By Contac t Referred To Contact Radiology Diagnoses Lumbar pain Procedures XR lumbar spine complete 4+ views Sha Foster MD [address] [facility], [address] [place] [address] Referral ID Status Reason Start Date Expiration Date Visits Requested Visits Authorized [id number] Authorized Perform Procedure 05/04/2023 05/03/2024 1 1 [...] Back pain with radiculopathy Sha Foster MD [address] [facility], [address] [place] [address] Phone: tel: fax: Referral ID Status Reason Start Date Expiration Date Visits Requested Visits Authorized [id number] Authorized Specialty Services Required 4 02/07/2025 1 1 Reason Comments Back Pain Specialty Diagnoses / Procedures Referred By Julio Cesar hoffman Referred To Contact Pain Medicine Diagnoses Back pain with radiculopathy Dev Martel PA-C [address] [place] [address] Phone: tel: [place]: [place] [address] [facility], [address], [place] [address] Phone: tel: fax: Referral ID Status Reason Start Date Expiration Date Visits Requested Visits Authorized [id number] Authorized Specialty Services Required 06/27/2024 06/27/2025 1 1 Reason Comments New Patient Visit Evaluation of [facility]. Reason Comments Follow-up F/U MRI done [...] Prophylaxis 1259 (Given - Provider: Pranay Lopez APRN-READING INTERVENTION TEACHER)1613 (Anesthesia Volume Adjustment - Provider: Kris Madrid [...] Provider: Felipe Acuña, GIA)1549 (Given - Provider: Feliep Acuña, RN)2024 (Given - Provider: Rafa Kwan, [...] Apply patch to left lower back. The bellhop's recommendations for the number of patches that can be applied within a 24-hour period varies from 1 to 4 times daily and the duration of application varies from 8 to 24 hours; refer to the bellhop's labeling for product-specific recommendations. 2157 (Patch Applied [...] BE BASED ON THE PRIMARY CLINICAL RECORDS. [employer] [facility]. provides no warranty or guarantee of the accuracy or completeness of information in this document.
--- NOTE | 2025-02-23 16:57 | ED.VIS.BACK ---
HPI History of Present Illness Chief Complaint: Back Informant: patient Onset/Context/Timing Onset: Yesterday Context: Sudden Onset Injury: twisting Timing: Continuous Quality: Burning Location: Lumbar and Buttock Worsened by: improves with - (Weightbearing) Relieved by: Nothing Associated Symptoms Associated Symptoms: Numbness, Tingling and Radiation to Right Leg; Negative for Fever, Abdominal Pain, Dysuria, Unable to Ambulate, Unable to Transfer, Urinary Retention, Urinary Incontinence, Constipation or Fecal Incontinence Narrative Narrative: Patient presents with vomiting. Patient states it began rather suddenly. Patient states he twisted and felt a pain in his back and right buttock. Patient states the pain is stabbing in his right buttock and burning across his lower back. Patient states he has burning pain in his right lower extremity that has been constant since his surgery. Patient states his pain is worse with any weightbearing. Patient admits to some numbness and tingling. Patient denies any radiation of pain to his abdomen. Patient denies any bowel or bladder changes. Patient denies any saddle anesthesia. Patient also noted a area on his scrotum that has been intermittently having a pustule with some minimal drainage. Patient denies any redness or swelling. Patient denies any fevers or chills. Patient states he had back surgery on 02/05/2025 at [facility] by Dr. Vargas. [facility] Medical History (Updated 02/23/25 @ 17:[address] 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 Instructions: upcoming surgery chlorzoxazone 500 mg tablet 500 mg PO 4X/DAY PRN PRN muscle 11/11/24 Unknown History spasm oxycodone 5 mg tablet 5 mg PO Q8H PRN pain 2 days #6 tabs 02/03/25 Unknown Rx naproxen 500 mg tablet 500 mg PO BID PRN #20 tabs 02/23/25 Unknown Rx Allergy/AdvReac Type Severity Reaction Status Date / Time No Known Allergies Allergy Verified 02/23/25 16:25 Surgical History (Updated 02/23/25 @ 17:[address] Raghu Sadler, ) S/P cervical spinal fusion Hx of tonsillectomy Previous back surgery Social History household members: none housing: house Smoking Status: Current some day smoker tobacco type: cigarettes alcohol intake: current alcohol intake frequency: other substance use type: marijuana ROS ROS ED Constitutional Constitutional ED: Denies chills or fever(s) Eyes Eyes: Denies blurry vision or change in vision ENT ENT ED: Denies rhinorrhea or sore throat Cardiovascular Cardiovascular: Denies chest pain or palpitations Respiratory/Chest Respiratory/Chest: Denies cough or dyspnea Gastrointestinal Gastrointestinal: Denies nausea or vomiting Genitourinary Genitourinary ED: Denies dysuria or hematuria Musculoskeletal Musculoskeletal: Reports back pain; Denies neck pain Integumentary Denies abscess or rash Neurologic Neurologic: Denies headache(s) or weakness Allergic/Immunologic Allergic/Immunologic ED: Denies mouth swelling or urticaria EXAM Physical Exam Const Vital Signs: 02/23/25 16:18 Temperature 98.5 F Temperature Source Oral Pulse Rate 99 Respiratory Rate 18 Blood Pressure 137/111 H Blood Pressure Mean 119 Pulse Ox 100 Oxygen Delivery Method Room Air Positive well nourished and well developed General Appearance ED: well developed and NAD HEENT Reports moist mucous membranes Back/Spine Back/Spine Narrative: There are 2 incisions in the lumbar paraspinal area. They are healing well. There is no erythema or warmth. There is no discharge or drainage. Range of motion of the lumbar spine was limited secondary to pain. Strength is 5/5 bilaterally in the lower extremities. There are no sensory deficits noted. Deep tendon reflexes are 2/4 bilaterally lower extremities. Lumbar Spine / Lower Back: ROM limited and straight leg raise negative bilaterally Extremity normal to inspection Neuro oriented x3 and no sensory deficits noted Sensorium / Orientation: alert Motor Exam: strength 5/5 throughout Deep Tendon Reflexes: Rt Patellar (L4): 2+, Lt Patellar (L4): 2+, Rt Ankle (S1): 2+ and Lt Ankle (S1): 2+ Deep Tendon Reflexes Back: Rt Patellar (L4): 2+, Lt Patellar (L4): 2+, Rt Ankle (S1): 2+ and Lt Ankle (S1): 2+ MDM MDM MDM Narrative Medical decision making narrative: Patient was advised that it was most likely postoperative pain and muscle strain. Patient was given a prescription for Naprosyn. Patient was given his first dose here. Patient was instructed to continue his baclofen and gabapentin. Patient was instructed to follow-up with primary care physician in 5 to 7 days for reevaluation. Patient was instructed to follow-up with his spine surgeon as scheduled. Patient was instructed to follow-up with pain management as scheduled. Patient was instructed to return if worse in any way. Patient understood and was agreeable with the plan. All questions were answered. Discharge Plan Triage Chief Complaint: Back ED Provider: Raghu Sadler Dx/Rx/DC Orders Clinical Impression: Acute low back pain, History of lumbar spinal fusion Instructions: ED Back and Neck Pain, General Prescriptions: New naproxen 500 mg tablet 500 mg PO BID PRN Qty: 20 0RF No Action baclofen 10 mg tablet 20 mg PO Q8H cholecalciferol (vitamin D3) 125 mcg (5,000 unit) capsule 125 mcg PO DAILY oxycodone 5 mg tablet 5 mg PO Q8H PRN (Reason: pain) 2 Days Qty: 6 0RF gabapentin 300 mg capsule 600 mg PO Q8H chlorzoxazone 500 mg tablet 500 mg PO 4X/DAY PRN PRN (Reason: muscle spasm) Primary Care Provider: Josafat Davis Referrals: Josafat Davis DO [Primary Care Provider, Medical] - 5-7 Days Print Language: Sudanese Disposition Disposition: Home, Self Care
[2025-02-23 17:16] VITALS: BP 142/98; PULSE 99; RESP 18; TEMP 36.9; O2SAT 100
--- NOTE | 2025-02-23 17:17 | ED.RN ---
pt upset when given dc and stated, i was hoping to get percocet but i guess oh well me, go fuck myself pt however cooperative. still very manic acting. stated that will call for a ride through insurance ccoverage to come get. pt up off bed and dressed self and put brace on and left in a hurry with no diff obs.
[2025-02-23 17:22] VITALS: BP 142/92; PULSE 91; RESP 16; O2SAT 98
== END 2025-02-23 17:23 | disposition home or self-care (01) ==
PROVIDERS: Emergency Provider Emergency Medicine; PCP Family Medicine; Visit Provider Emergency Medicine
DX: M54.50 Low back pain, unspecified (principal); F17.210 Nicotine dependence, cigarettes, uncomplicated; Z98.1 Arthrodesis status
CPT/HCPCS: 99283

== ENCOUNTER 2025-03-06 16:36 | Emergency (ER) | payer MEDICAID, SELFPAY ==
[2025-03-06 16:38] VITALS: BP 142/117; PULSE 107; RESP 22; TEMP 36.3; O2SAT 99; BMI 23.6
--- NOTE | 2025-03-06 16:51 | EX.ED.DYSGE1 ---
HPI History of Present Illness Chief Complaint: Numb/Ting Detail of Chief Complaint: Postop pain Informant: patient Narrative Narrative: Patient presents with postop pain to the right leg. He states that he had surgery February 05 at [facility] where he had a laminectomy and fusion. Initially did not have much sensation to his right leg but that is been coming back and complains of a burning sensation to his calf and foot lateral aspect. Pains been there since this time of surgery. No new injury. Denies loss of bowel or bladder function or weakness. Patient states that he has been ambulating and getting ready for [place] and he thinks he is causing more discomfort related to that. He is scheduled to see pain management March 19. [facility] Medical History (Updated 03/06/25 @ 16:[address] 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 Instructions: upcoming surgery chlorzoxazone 500 mg tablet 500 mg PO 4X/DAY PRN PRN muscle 11/11/24 Unknown History spasm oxycodone 5 mg tablet 5 mg PO Q8H PRN pain 2 days #6 tabs 02/03/25 Unknown Rx naproxen 500 mg tablet 500 mg PO BID PRN #20 tabs 02/23/25 Unknown Rx hydrocodone-acetaminophen 5-325mg 1 tab PO Q4H PRN PRN Pain 2 days 03/06/25 Unknown Rx 5mg-325mg #12 TABLETS Allergy/AdvReac Type Severity Reaction Status Date / Time No Known Allergies Allergy Verified 03/06/25 16:39 Surgical History (Updated 03/03/25 @ 00:01 by Aliyah Nath) S/P cervical spinal fusion Hx of tonsillectomy Previous back surgery Social History household members: none housing: house Smoking Status: Current some day smoker tobacco type: cigarettes alcohol intake: current alcohol intake frequency: other substance use type: marijuana ROS ROS ED Review of Systems ROS Unobtainable: other Constitutional Constitutional ED: Reports lethargy; Denies chills, fever(s), sweats or weight loss Eyes Eyes: Denies blurry vision, change in vision or diplopia ENT ENT ED: Denies rhinorrhea or sore throat Cardiovascular Cardiovascular: Denies chest pain, orthopnea or racing heartbeat Respiratory/Chest Respiratory/Chest: Denies cough, dyspnea, dyspnea on exertion, orthopnea or sputum Gastrointestinal Gastrointestinal: Denies abdominal pain, diarrhea, nausea or vomiting Genitourinary Genitourinary ED: Denies dysuria, hematuria or urinary frequency Musculoskeletal Musculoskeletal: Reports other Details: Right leg pain ; Denies arthralgias, back pain, myalgias or neck pain Integumentary Denies abscess, Abrasions or rash Neurologic Neurologic: Denies headache(s) or weakness Psychiatric Psychiatric: Denies anxiety, depression or suicidal thoughts Endocrine Endocrinology: Denies polydipsia, polyphagia or polyuria Hematologic/Lymphatic Hematologic/Lymphatic: Denies easy bleeding, easy bruising or lymphadenopathy Allergic/Immunologic Allergic/Immunologic ED: Denies mouth swelling, tongue swelling or urticaria EXAM Physical Exam Const Vital Signs: 03/06/25 16:38 Temperature 97.3 F L Temperature Source Temporal Pulse Rate 107 H Respiratory Rate 22 H Blood Pressure 142/117 H Blood Pressure Mean 125 Pulse Ox 99 Oxygen Delivery Method Room Air Positive well nourished and well developed General Appearance ED: well developed and NAD HEENT Reports TM's clear and moist mucous membranes normocephalic and atraumatic; Negative for trauma or tenderness Tympanic Membrane ED: Yes TM's clear Eyes PERRL and EOMs intact bilaterally General Eye ED: Negative for pale conjunctiva or scleral icterus Neck no lymphadenopathy, supple and no JVD General: Negative for tenderness Chest Wall inspection of chest normal and palpation of chest normal Chest: Negative for tenderness Resp normal respiratory effort and clear to auscultation bilaterally Effort and Inspection: Negative for respiratory distress or pain with movement Auscultation: Negative for rhonchi, wheezes or diminished lung sounds Cardio regular rate, regular rhythm, S1 normal heart sound, S2 normal heart sound and no murmurs Peripheral Pulses: pulses 2+ throughout GI normal to inspection, nondistended, normoactive bowel sounds, soft to palpation, non-tender, non-distended and no masses Back/Spine no CVA tenderness and no thoracic nor lumbar tenderness Back/Spine Narrative: Negative straight leg raises bilaterally. Well-healing incisions to his back. No erythema or warmth. Deep tendon reflexes plus 2 out of 4 bilaterally at the patella and Achilles. He has normal 5 extension on the right. Normal sensation to light touch Extremity normal to inspection Extremity Narrative: No edema. No ropes or cords palpated. Negative Homans' sign General Extremety ED: Negative for edema General Extremity: Negative for edema Neuro oriented x3, CN's II-XII intact bilaterally, no sensory deficits noted and gait normal Sensorium / Orientation: awake, alert, oriented to person, oriented to place and oriented to time Motor Exam: strength 5/5 throughout and strength abnormal Psych mental status grossly normal Skin no rashes or lesions noted and no wounds MDM MDM MDM Narrative Medical decision making narrative: Patient presents with chronic pain to the right lower extremity since surgery 1 month ago. He is currently on gabapentin as well as chlorzoxazone and baclofen. Also takes naproxen. I will write him a prescription for a few [place] for pain. He is advised to follow-up with pain management and his surgeon. There are no red flag symptoms of cauda equina. No concern for DVT. Discharge Plan Triage Chief Complaint: Numb/Ting ED Provider: Cassi Washburn Dx/Rx/DC Orders Clinical Impression: Leg pain, right Instructions: Pain Management After Surgery Prescriptions: New hydrocodone-acetaminophen 5-325 mg tablet 1 tab PO Q4H PRN PRN (Reason: Pain) 2 Days Qty: 12 0RF No Action baclofen 10 mg tablet 20 mg PO Q8H cholecalciferol (vitamin D3) 125 mcg (5,000 unit) capsule 125 mcg PO DAILY oxycodone 5 mg tablet 5 mg PO Q8H PRN (Reason: pain) 2 Days Qty: 6 0RF gabapentin 300 mg capsule 600 mg PO Q8H chlorzoxazone 500 mg tablet 500 mg PO 4X/DAY PRN PRN (Reason: muscle spasm) naproxen 500 mg tablet 500 mg PO BID PRN Qty: 20 0RF Primary Care Provider: Josafat Davis Referrals: Josafat Davis DO [Primary Care Provider, Medical] Activity Restrictions/Additional Instructions: Follow-up with pain management and your surgeon for further pain management needs. Print Language: Faroese Disposition Disposition: Home, Self Care
[2025-03-06 17:01] VITALS: BP 142/117; PULSE 100; RESP 18; TEMP 36.6; O2SAT 99
== END 2025-03-06 17:02 | disposition home or self-care (01) ==
LOC: ED 16:58
PROVIDERS: Emergency Provider Emergency Medicine; PCP Family Medicine; Visit Provider Emergency Medicine
DX: M79.661 Pain in right lower leg (principal); G89.28 Other chronic postprocedural pain; F17.210 Nicotine dependence, cigarettes, uncomplicated
CPT/HCPCS: 99282